=== PATIENT | male | born 1960 | race Caucasian/White ===

== ENCOUNTER → 2017-06-01 | Outpatient (CLI) | payer OTHER ==
--- NOTE | 2017-06-01 08:01 | US ---
EXAMINATION TYPE: US duplex aorta DATE OF EXAM: 06/01/2017 COMPARISON: MRI 2016 CLINICAL HISTORY: I71.4 AAA. AAA EXAM MEASUREMENTS: Abdominal Aorta: Proximal: 2.1 x 2.3cm Mid: 1.7 x 1.8cm Distal: 2.6 x 3.3 x 3.9cm Rt Iliac: 1.1 x 1.4cm Lt Iliac: 1.3 x 1.4cm IMPRESSION: Aneurysmal change to the infrarenal abdominal aorta measuring 3.3cm transversely and 3.9c m in length.
== END | disposition home or self-care (01) ==
LOC: RADUSWWP 06:51
PROVIDERS: ATTEND Family Medicine
DX: I71.4 Abdominal aortic aneurysm, without rupture (principal)
CPT/HCPCS: 93979

== ENCOUNTER → 2018-05-11 | Outpatient (CLI) | payer OTHER ==
[2018-05-11 13:59] LABS: HCT 33.8 % (39.0-53.0); HGB 10.8 gm/dL (13.0-17.5); Hypochromasia Marked; MCH 30.2 pg (25.0-35.0); MCHC 31.9 g/dL (31.0-37.0); MCV 94.8 fL (80.0-100.0); Mean Platelet Volume 7.7; Platelet Count 119 k/uL (150-450); RBC 3.57 m/uL (4.30-5.90); RDW 15.3 % (11.5-15.5); WBC 7.3 k/uL (3.8-10.6)
[2018-05-11 14:31] LABS: Anion Gap 11 mmol/L; Blood Urea Nitrogen 14 mg/dL (9-20); Carbon Dioxide 25 mmol/L (22-30); Chloride 96 mmol/L (98-107); Potassium 5.1 mmol/L (3.5-5.1); Sodium 132 mmol/L (137-145)
== END ==
LOC: LABPAT 12:34
PROVIDERS: ATTEND Internal Medicine Interventional Cardiology
DX: Z01.812 Encounter for preprocedural laboratory examination (principal); I70.213 Atherosclerosis of native arteries of extremities with intermittent claudication, bilateral legs; I10 Essential (primary) hypertension; E78.1 Pure hyperglyceridemia
CPT/HCPCS: 36415; 80051; 82565; 84520; 85027

== ENCOUNTER → 2018-07-06 | Outpatient (CLI) | payer OTHER ==
[2018-07-06 15:17] LABS: Anion Gap 7 mmol/L; Blood Urea Nitrogen 9 mg/dL (9-20); Carbon Dioxide 28 mmol/L (22-30); Chloride 101 mmol/L (98-107); Sodium 136 mmol/L (137-145)
[2018-07-06 15:28] LABS: Anisocytosis Slight; HCT 32.8 % (39.0-53.0); HGB 10.4 gm/dL (13.0-17.5); Hypochromasia Moderate; MCH 29.3 pg (25.0-35.0); MCHC 31.8 g/dL (31.0-37.0); MCV 92.2 fL (80.0-100.0); Mean Platelet Volume 6.8; Platelet Count 138 k/uL (150-450); RBC 3.56 m/uL (4.30-5.90); RDW 16.1 % (11.5-15.5); WBC 6.5 k/uL (3.8-10.6)
== END | disposition home or self-care (01) ==
LOC: LABPAT 14:04
PROVIDERS: ATTEND Internal Medicine Interventional Cardiology
DX: Z01.812 Encounter for preprocedural laboratory examination (principal); I70.213 Atherosclerosis of native arteries of extremities with intermittent claudication, bilateral legs; F17.200 Nicotine dependence, unspecified, uncomplicated
CPT/HCPCS: 36415; 80051; 82565; 84520; 85027

== ENCOUNTER 2018-07-20 06:36 | Day surgery (SDC) | payer OTHER ==
[2018-07-19 09:16] VITALS: BMI 32.8
[~2018-07-20 06:36] MED LIST: SODIUM CHLORIDE 0.9% 1,000 ML in EMPTY BAG 1 BAG IV ONE
[2018-07-20] MEDS ORDERED: ASPIRIN 325 MG TAB ONE (06:45)
[2018-07-20 07:04] LABS: Glucose,Whole Blood 160 mg/dL (75-99)
[2018-07-20 07:06] VITALS: RESP 18
[2018-07-20 07:08] LABS: Anisocytosis Slight; Basophils # (A) 0.1 k/uL (0-0.2); Basophils % (A) 1 %; Eosinophils # (A) 0.4 k/uL (0-0.7); Eosinophils % (A) 5 %; HCT 35.8 % (39.0-53.0); HGB 11.3 gm/dL (13.0-17.5); Hypochromasia Moderate; Lymphocytes # (A) 1.9 k/uL (1.0-4.8); Lymphocytes % (A) 27 %; MCH 28.6 pg (25.0-35.0); MCHC 31.5 g/dL (31.0-37.0); MCV 90.6 fL (80.0-100.0); Mean Platelet Volume 6.9; Monocytes # (A) 0.5 k/uL (0-1.0); Monocytes % (A) 8 %; Neutrophils # (A) 3.9 k/uL (1.3-7.7); Neutrophils % (A) 56 %; Platelet Count 205 k/uL (150-450); RBC 3.95 m/uL (4.30-5.90); RDW 16.1 % (11.5-15.5)
[2018-07-20 07:20] LABS: Anion Gap 8 mmol/L; Blood Urea Nitrogen 11 mg/dL (9-20); Carbon Dioxide 29 mmol/L (22-30); Chloride 102 mmol/L (98-107); Glucose 167 mg/dL (74-99); Potassium 4.9 mmol/L (3.5-5.1); Sodium 139 mmol/L (137-145)
[2018-07-20] MEDS ORDERED: MIDAZOLAM 2 MG/2 ML VIAL IVP ONE (07:50)
[2018-07-20] MEDS ORDERED: LIDOCAINE 1% INJ 10MG/ML (20 ML MDV) SQ ONE (07:53)
[2018-07-20] MEDS ORDERED: HEPARIN SODIUM 1,000 UN/ML (10ML VL) IV ONE (07:56)
[2018-07-20] MEDS ORDERED: niCARdipine Syringe (1,000 mcg/10 mL) INTRAARTER ONE (08:37)
[2018-07-20] MEDS ORDERED: NITROGLYCERIN 1000MCG/10ML SYRINGE INTRAARTER ONE (08:37)
[2018-07-20] MEDS ORDERED: CLOPIDOGREL 75 MG TAB PO ONE (08:40)
[2018-07-20] MEDS ORDERED: IOPAMIDOL-250 100ML BTL INTRAARTER ONE (08:50)
[2018-07-20] MEDS ORDERED: HYDROcodone/APAP 10-325MG 1 EACH TAB PO PRN (09:04)
[2018-07-20] MEDS ORDERED: IBUPROFEN 600 MG TAB PO PRN (09:04)
[2018-07-20] MEDS ORDERED: ONDANSETRON 4 MG TAB PO PRN (09:04)
[2018-07-20] MEDS ORDERED: SODIUM CHLORIDE 0.9% 1,000 ML IV SCH (09:15)
--- NOTE | 2018-07-20 09:41 | LTR ---
July 20, 2018 Re: Sukh Bosslara Dear Dr. Whitlock: MrDallin Zamarripa underwent today successful atherectomy and balloon angioplasty of the left femoral artery with good angiographic results and without any complication. I want to thank you for allowing me to participate in his care and please do not hesitate to call if you have any question or concern. Sincerely, Anthony Mercer MD MMANA LUISA / AURORAN: [id number] /
--- NOTE | 2018-07-20 09:56 | AN ---
ANGIOGRAPHY REPORT DATE OF SERVICE: July 20, 2018 PERFORMING PHYSICIAN: Anthony Mercer MD, rug cleaner. PROCEDURE PERFORMED: 1. Selective left tkhvd-leb-[id number] angiogram. 2. Selective left SFA angiogram. 3. Intravascular ultrasound, IVUS, of the left SFA. 4. An atherectomy of the left SFA using the orbital atherectomy device from [employer]. 5. Successful balloon angioplasty of the left SFA using 6 x 120 mm drug coated balloon with an excellent angiographic results and reduction of stenosis from 80% to 0%. INDICATION: This is a pleasant 57-year-old gentleman who sees Dr. Dong in the office as an outpatient with diabetes, hypertension, and dyslipidemia, who was experiencing bilateral lower extremity intermittent claudication and underwent a peripheral angiogram and that revealed severe disease involving the left SFA. Because of that, he was brought today to undergo a ELECTRICAL TESTER of the left SFA. APPROACH: Right common femoral artery. COMPLICATION: None. LEVEL OF SEDATION: Moderate with sedation length of 50 minutes. PROCEDURE DESCRIPTION: After obtaining an informed consent, the patient was brought to the cardiac seed laboratory assistant. The right femoral artery was cannulated using micropuncture technique, the micropuncture wire passed easily then I placed a 6-Bolivian 55 cm in the right common femoral artery. After that I did select the left SFA using a 5-Bolivian Rim catheter with 0.035 [employer] wire. Subsequently I did advance my 55 cm Raabe sheath to the proximal left SFA over the 0.035 [employer] wire. At that point, anticoagulation was initiated using heparin and the patient was given a total of 10,000 units of heparin IV with ACT monitoring throughout the procedure. I did wire the left SFA using 0.[address] wire. Before wiring the left SFA I did selective left ajdts-cia-pbcp angiogram and selective left SFA angiogram. Selective xchwf-[id number]-cghh angiogram revealed 3-vessel runoff below the knee. Selective left SFA angiogram revealed severe disease involving the distal left SFA and intermediate to severe disease involving the proximal left SFA which I decided to not treat today. After that I did wire the left SFA using 0.[address] wire, which was after that exchanged into an 0.014 ViperWire using 0.014 CXI catheter. After that, I did an intravascular ultrasound, IVUS, of the left SFA, which revealed a tight lesion involving the distal left SFA until the Michael canal. At that point I did atherectomy using the 2 mm gerardo. I did atherectomy under low, medium, and high speed. After that, I did balloon angioplasty of the left SFA using initially 5 mm regular balloon and then 6 x 120 drug coated balloon which was inflated under 8 atmospheres for 3 minutes. The following angiogram showed good angiographic results and the procedure was completed without any complication. After that I did exchange my 55 cm 6-Bolivian Raabe sheath into 11 cm sheath using 0.035 [employer]vant[employer] wire. After that, I did selective right common femoral artery angiogram. The procedure was completed without any complication. POSTPROCEDURE MANAGEMENT: 1. Dual antiplatelet therapy. 2. Risk factors modifications. 3. Follow up with the patient. MAXINE / KARLI: [id number] /
--- NOTE | 2018-07-20 11:52 | IR ---
Fluoroscopy HISTORY: Peripheral vascular occlusive disease 12.2 minutes fluoroscopy time supplied to the referring clinician. 555 intraoperative C-arm images d ocument the procedure. See dictated report from cardiology.
[2018-07-20 12:17] LABS: Glucose,Whole Blood 155 mg/dL (75-99)
[2018-07-20 16:37] LABS: Glucose,Whole Blood 260 mg/dL (75-99)
[2018-07-20 20:13] LABS: Glucose,Whole Blood 338 mg/dL (75-99)
[2018-07-20] MEDS ORDERED: ATORVASTATIN 80 MG TAB PO SCH (21:00)
[2018-07-20] MEDS ORDERED: levETIRAcetam 500 MG TAB PO SCH (21:00)
[2018-07-20] MEDS ORDERED: PREGABALIN 50 MG CAP PO SCH (21:00)
[2018-07-20] MEDS ORDERED: ASPIRIN 81 MG PO SCH (21:00)
[2018-07-21 04:33] VITALS: BP 113/58; PULSE 87; TEMP 98.3
[2018-07-21 06:01] LABS: Glucose,Whole Blood 186 mg/dL (75-99)
[2018-07-21 07:52] LABS: Basophils % (A) 0 %; Eosinophils # (A) 0.3 k/uL (0-0.7); Eosinophils % (A) 3 %; HCT 31.8 % (39.0-53.0); Hypochromasia Marked; Lymphocytes # (A) 1.4 k/uL (1.0-4.8); Lymphocytes % (A) 18 %; MCH 29.2 pg (25.0-35.0); MCHC 31.6 g/dL (31.0-37.0); MCV 92.6 fL (80.0-100.0); Mean Platelet Volume 6.8; Monocytes # (A) 0.7 k/uL (0-1.0); Monocytes % (A) 8 %; Neutrophils # (A) 5.5 k/uL (1.3-7.7); Neutrophils % (A) 67 %; Platelet Count 156 k/uL (150-450); RBC 3.44 m/uL (4.30-5.90); RDW 15.9 % (11.5-15.5); WBC 8.1 k/uL (3.8-10.6)
--- NOTE | 2018-07-21 07:56 | DS ---
DISCHARGE SUMMARY DATE OF ADMISSION: 07/20/2018 DATE OF DISCHARGE: 07/21/2018 BRIEF HISTORY: This is a pleasant 57-year-old gentleman who underwent yesterday successful atherectomy and balloon angioplasty of the left SFA with good angiographic results and without any complication. The procedure was performed from the right groin which is soft and nontender and without any bruises. The patient is going to be discharged home on dual antiplatelet therapy and I will follow up with the patient in the office as an outpatient. MAXINE / KARLI: [id number] /
[2018-07-21] MEDS ORDERED: ALBUTEROL NEBULIZED 1.25 MG/3 ML INHALATION SCH (08:00)
[2018-07-21 08:10] LABS: Anion Gap 6 mmol/L; Blood Urea Nitrogen 13 mg/dL (9-20); Calcium 8.4 mg/dL (8.4-10.2); Carbon Dioxide 28 mmol/L (22-30); Chloride 102 mmol/L (98-107); Glucose 142 mg/dL (74-99); Sodium 136 mmol/L (137-145)
[2018-07-21] MEDS ORDERED: OXYBUTYNIN XL 5 MG TAB.ER.24 PO SCH (09:00)
[2018-07-21] MEDS ORDERED: NON-FORMULARY DRUG (Liraglutide [Victoza 2-Pak] 1.8 MG) SQ SCH (09:00)
[2018-07-21] MEDS ORDERED: INSULIN DETEMIR 100 UNIT/ML 10 ML VIAL SQ SCH (09:00)
[2018-07-21] MEDS ORDERED: FUROSEMIDE 20 MG TAB PO SCH (09:00)
[2018-07-21] MEDS ORDERED: PARoxetine 20 MG TAB PO SCH (09:00)
[2018-07-21] MEDS ORDERED: MAGNESIUM OXIDE 400 MG TAB PO SCH (09:00)
[2018-07-21] MEDS ORDERED: THIAMINE 100 MG TAB PO SCH (09:00)
[2018-07-21] MEDS ORDERED: LISINOPRIL 5 MG TAB PO SCH (09:00)
[2018-07-21] MEDS ORDERED: CLOPIDOGREL 75 MG TAB PO SCH (09:00)
[2018-07-21] MEDS ORDERED: ASPIRIN 81 MG PO SCH (09:00)
[2018-07-21] MEDS ORDERED: LINAGLIPTIN 5 MG TABLET PO SCH (09:00)
[2018-07-21] MEDS ORDERED: FOLIC ACID 1 MG TAB PO SCH (12:00)
[2018-07-21] MEDS ORDERED: MULTIVITAMINS, THERA 1 EACH TAB PO SCH (12:00)
== END 2018-07-21 09:48 | disposition home or self-care (01) ==
LOC: CATHCVL 06:36 → 3SCARD 11:28 → CATHCVL 07-21 09:48
PROVIDERS: ATTEND Internal Medicine Interventional Cardiology
DX: I70.213 Atherosclerosis of native arteries of extremities with intermittent claudication, bilateral legs (principal); E11.51 Type 2 diabetes mellitus with diabetic peripheral angiopathy without gangrene; I10 Essential (primary) hypertension; E78.5 Hyperlipidemia, unspecified; I65.29 Occlusion and stenosis of unspecified carotid artery; F17.210 Nicotine dependence, cigarettes, uncomplicated; Z79.02 Long term (current) use of antithrombotics/antiplatelets; Z79.82 Long term (current) use of aspirin; Z79.52 Long term (current) use of systemic steroids; Z79.899 Other long term (current) drug therapy; Z88.5 Allergy status to narcotic agent; Z86.73 Personal history of transient ischemic attack (TIA), and cerebral infarction without residual deficits
CPT/HCPCS: 94640; 94760; 37225; 85347; 37252; 80048 ×2; 85025 ×2; C1894 ×2; C1714; C1769 ×5; C1753; C2623; C1725; J2250; J2001; J1644; Q9966

== ENCOUNTER → 2018-10-04 | Outpatient (CLI) | payer OTHER ==
--- NOTE | 2018-10-05 13:04 | CTL ---
EXAMINATION TYPE: CT Low Dose Lung DATE OF EXAM ORDERED: 10/04/2018 HISTORY: . Lung cancer screening CT DLP: [address] CTDI: 2.41 mGy Automated exposure control for dose reduction was used. SCREENING VISIT: Initial COMPARISON: None TECHNIQUE: Low dose computed tomography scan was performed through the chest at 1 mm thick sections a nd reconstructed images in the coronal plane at [address] DIAGNOSTIC QUALITY: Limited, but interpretable FINDINGS: LUNG NODULES: Present, detailed below: 1: Series 5 image 145: There is a 0.6 cm nodule in the periphery of the left posterior lateral lung. There is a groundglass opacity within the anterior left upper lobe. Series 5 image 38.e a more subtle groundglass opacities within the anterior medial right upper lobe. Series 5 image 51. LUNGS: COPD: Severity: None Fibrosis: Severity: None Lymph nodes: There is a 1.0 cm lymph node within the pretracheal space at the level of the right main bronchus and panchito. Additional shotty lymphadenopathy is within the mediastinum Other findings: Streak atelectasis is likely present at the bilateral lung bases. RIGHT PLEURAL SPACE: Effusion: None Calcification: None Thickening: None Pneumothorax: None LEFT PLEURAL SPACE: Effusion: None Calcification: None Thickening: None Pneumothorax: None HEART: Heart Size: Normal Coronary calcification: Moderate Pericardial effusion: None The ascending thoracic aorta at the level the main pulmonary artery is 3.1 cm. The main pulmonary art albaro the bifurcation is 2.9 cm. OTHER FINDINGS: Upper abdomen: Normal Bony thorax: Unremarkable Supraclavicular region: Normal Other: None IMPRESSION: 1. Groundglass opacities within the upper lung barajas are nonspecific. Short-term follow-up CT chest with contrast in 3 months is recommended. 2. Nonspecific 0.5 cm nodule in the posterior lateral left lung base. FOLLOW UP CT CHEST RECOMMENDATION: CT chest w contrast in three months CT LUNG RAD: Lung-Rad 3 Probably Benign
== END | disposition home or self-care (01) ==
LOC: RADCTMAIN 16:02
PROVIDERS: ATTEND Family Medicine
DX: R91.8 Other nonspecific abnormal finding of lung field (principal); Z87.891 Personal history of nicotine dependence

== ENCOUNTER 2018-10-24 07:59 | Day surgery (SDC) | payer OTHER ==
[2018-10-20 16:06] VITALS: BMI 34.7
[~2018-10-24 07:59] MED LIST changes: +LACTATED RINGERS 1,000 ML IV SCH; +LIDOCAINE 1% 20 ML VIAL (10MG/ML) FOR IV START INTRADERMA PRN; -SODIUM CHLORIDE 0.9% 1,000 ML in EMPTY BAG 1 BAG IV ONE
[2018-10-24 08:20] VITALS: RESP 16; TEMP 97.9
[2018-10-24 08:27] LABS: Glucose,Whole Blood 164 mg/dL (75-99)
[2018-10-24] MEDS ORDERED: LIDOCAINE 1% INJ 10MG/ML (20 ML MDV) ONE (08:48)
[2018-10-24] MEDS ORDERED: PROPOFOL 10 MG/ML 20 ML VIAL IV ONE (08:48)
--- NOTE | 2018-10-24 08:54 | P.GSHP ---
History of Present Illness H&P Date: 10/24/18 Chief Complaint: Anemia, screening colonoscopy This is a 58-year-old male who's had issues with anemia. His hemoglobin was 10 in July 2018. Patient resents today for EGD and screening colonoscopy Past Medical History Past Medical History: COPD, CVA/TIA, Diabetes Mellitus, Memory Impairment, Seizure Disorder, Skin Disorder Additional Past Medical History / Comment(s): pain pump in back History of Any Multi-Drug Resistant Organisms: None Reported Past Surgical History: Appendectomy, Back Surgery, Orthopedic Surgery Additional Past Surgical History / Comment(s): titanium shaft in lt leg, skin graph to rt 1st and middle finger, lt eardum replaced, cyrus. foot surgery to arch Past Anesthesia/Blood Transfusion Reactions: No Reported Reaction Smoking Status: Former smoker - Past Family History Brother(s) Family Medical History: No Reported History Mother Family Medical History: COPD, Diabetes Mellitus Medications and Allergies Home Medications Medication Instructions Recorded Confirmed Type Aspirin [Adult Low Dose Aspirin EC] 81 mg PO DAILY 08/28/15 10/24/18 History Clopidogrel [Plavix] 75 mg PO DAILY 08/28/15 10/24/18 History Folic Acid 1 mg PO DAILY 08/28/15 10/24/18 History Lisinopril [Prinivil] 5 mg PO DAILY 08/28/15 10/24/18 History Magnesium Gluconate [Magonate] 500 mg PO DAILY 08/28/15 10/24/18 History Multivitamins, Thera [Multivitamin 1 tab PO DAILY 08/28/15 10/24/18 History (formulary)] PARoxetine [Paxil] 40 mg PO DAILY 08/28/15 10/24/18 History Thiamine [Vitamin B-1] 100 mg PO DAILY 08/28/15 10/24/18 History Albuterol Inhaler [Ventolin Hfa 1 - 2 puff INHALATION RT-Q6H PRN 07/19/18 10/24/18 History Inhaler] Albuterol Nebulized [Ventolin 1.25 mg INHALATION DAILY 07/19/18 10/24/18 History Nebulized] Furosemide [Lasix] 20 mg PO DAILY 07/19/18 10/24/18 History Insulin Glargine,Hum.rec.anlog 57 unit SQ QAM 07/19/18 10/24/18 History [Basaglar Kwikpen U-100] Insulin Lispro [Admelog] 9 unit SQ ACHS 07/19/18 10/24/18 History Liraglutide [Victoza 2-Selvni] 1.8 mg SQ DAILY 07/19/18 10/24/18 History Oxybutynin Chloride [Oxybutynin 5 mg PO DAILY 07/20/18 10/24/18 History Chloride ER] Pregabalin [Lyrica] 150 mg PO BID 07/20/18 10/24/18 History levETIRAcetam [Keppra] 1,000 mg PO Q12HR 07/20/18 10/24/18 History Atorvastatin Calcium [Lipitor] 80 mg PO DAILY 10/20/18 10/24/18 History Ferrous Sulfate [Feosol] 325 mg PO DAILY 10/20/18 10/24/18 History HYDROcodone/APAP 5-325MG [Raymond 1 tab PO TID 10/20/18 10/24/18 History 5-325] Omeprazole [PriLOSEC] 40 mg PO BID 10/20/18 10/24/18 History Ondansetron HCl [Zofran] 8 mg PO DAILY PRN 10/20/18 10/24/18 History Sertraline [Zoloft] 25 mg PO DAILY 10/20/18 10/24/18 History Tamsulosin [Flomax] 0.4 mg PO DAILY 10/20/18 10/24/18 History metFORMIN HCL 1,000 mg PO BID 10/20/18 10/24/18 History Allergies Allergy/AdvReac Type Severity Reaction Status Date / Time morphine AdvReac Nausea & Verified 10/20/18 15:39 Vomiting Surgical - Exam Vital Signs Temp Pulse Resp BP Pulse Ox 97.9 F 78 16 165/79 91 L 10/24/18 08:15 10/24/18 08:15 10/24/18 08:15 10/24/18 08:15 10/24/18 08:15 - General well developed, well nourished, no distress - Eyes PERRL - ENT normal pinna - Neck no masses - Respiratory normal expansion - Cardiovascular Rhythm: regular - Abdomen Abdomen: soft, non tender Results - Labs Abnormal Lab Results - Last 24 Hours (Table) 10/24/18 Range/Units 08:23 POC Glucose (mg/dL) 164 H (75-99) mg/dL Assessment and Plan Assessment: Anemia we'll perform EGD and screening colonoscopy.
--- NOTE | 2018-10-24 09:19 | P.OP ---
Date of Procedure: 10/24/18 Preoperative Diagnosis: Anemia Screening colonoscopy Postoperative Diagnosis: Antral gastritis Transverse colon polyp Mild diverticulosis Poor colonic prep Procedure(s) Performed: EGD Colonoscopy Anesthesia: MAC Surgeon: Prosper Santiago Pathology: other (Antrum, transverse colon polyp) Condition: stable Disposition: PACU Description of Procedure: Patient's placed on the endoscopy table in the lateral position. He received IV sedation. The gastroscope placed oropharynx passed in the esophagus and into the stomach. Scope was then placed through the pylorus. First and second portion of duodenum appeared normal. Scope was then brought back the antrum and this was mildly inflamed. A biopsies performed. The scope was then retroflexed and the remainder of the stomach appeared normal. There is no significant hiatal hernia. There is no evidence of blood in the stomach or duodenum. The scope was then brought back and the GE junction was at 47 is. The distal esophagus appeared normal. The proximal esophagus. Normal. Scope was withdrawn for patient. Next digital rectal exam was performed which revealed a few internal hemorrhoids. The flexible colonoscope was then placed patient anus passed with colon. There was a very limited view of the colon due to the poor colon prep. The scope was placed to the level of the hepatic flexure. However scope could not be advanced due to the poor colon prep. There was a large amount liquid stool colon. At this point scope withdrawn. The transverse colon appeared normal. In the distal transverse colon there was a small polyp seen this removed forcep. Scope was then brought back into the descending colon and some diverticular changes were seen. The; and more diverticula changes seen. However there is large amount of stool within the colon. Scope was then brought back the rectum this appeared normal normal. However the view was quite limited due to the large amount liquid stool. Scope Patient was scheduled for a barium enema to evaluate the remaining colon. There was no evidence of any bleeding in the colon or stomach.
[2018-10-24 09:47] VITALS: BP 152/81; PULSE 75
--- NOTE | 2018-10-26 15:11 | CDI ---
Date: 10/26/18 CDS/Retail Pos Specialist Name: Jeannette Pedraza Phone: If any questions, call Jenn Wet[facility] [employer] [facility] at [phone] Patient Name: Sukh Zamarripa Admit Date: 10/24/18 Discharge Date: 10/24/18 ATTENTION: The [facility] Coding Staff appreciate your assistance in clarifying documentation. Please respond to the clarification below the line at the bottom and electronically sign. The [facility] Coding staff will review the response and follow-up if needed. Please note: Queries are made part of the Legal Health Record. If you have any questions, please contact the [employer]. Dear Dr. Santiago, Please clarify the reason for the colonoscopy. The diagnosis of anemia can prompt both an EGD and colonoscopy to be performed. A "Screening" colonoscopy under guidelines is": A screening is the testing for disease or disease precursors in seemingly well individuals so that early detections and treatment can be provided for those who test positive for the disease." This is an individual that has not symptoms related to the procedure. Please clarify if the colonoscopy is really a screening. Thank you for your kind consideration. This was the patient's initial screening colonoscopy. He was anemic. MTDD
== END 2018-10-24 10:09 | disposition home or self-care (01) ==
LOC: ORWHC2ENDO 07:59
PROVIDERS: ATTEND Surgery
DX: Z12.11 Encounter for screening for malignant neoplasm of colon (principal); K57.90 Diverticulosis of intestine, part unspecified, without perforation or abscess without bleeding; K29.50 Unspecified chronic gastritis without bleeding; D12.3 Benign neoplasm of transverse colon; K64.8 Other hemorrhoids; J44.9 Chronic obstructive pulmonary disease, unspecified; Z86.73 Personal history of transient ischemic attack (TIA), and cerebral infarction without residual deficits; E11.9 Type 2 diabetes mellitus without complications; F17.200 Nicotine dependence, unspecified, uncomplicated; R41.3 Other amnesia; G40.909 Epilepsy, unspecified, not intractable, without status epilepticus; Z83.3 Family history of diabetes mellitus; F41.9 Anxiety disorder, unspecified; F32.9 Major depressive disorder, single episode, unspecified; Z79.02 Long term (current) use of antithrombotics/antiplatelets; Z79.82 Long term (current) use of aspirin; Z79.4 Long term (current) use of insulin; Z79.891 Long term (current) use of opiate analgesic; Z79.899 Other long term (current) drug therapy; Z88.5 Allergy status to narcotic agent
CPT/HCPCS: 88305; 45380; 43239; J2001; J2704

== ENCOUNTER 2018-10-30 16:32 | Inpatient (IN) | payer OTHER ==
[2018-10-30] MEDS ORDERED: ACETAMINOPHEN TAB 500 MG TAB PO STA (16:43)
[2018-10-30] MEDS ORDERED: AZITHROMYCIN 500 MG in SODIUM CHLORIDE 0.9% 250 ML IVPB STA (16:51)
[2018-10-30] MEDS ORDERED: cefTRIAXone IN SWFI 1,000 MG/10 ML SYRINGE IVP STA (16:51)
--- NOTE | 2018-10-30 16:51 | ED ---
General Adult HPI - General Chief complaint: Shortness of Breath Stated complaint: INFECTION Time Seen by Provider: 10/30/18 16:43 Source: EMS Mode of arrival: EMS Limitations: no limitations - History of Present Illness Initial comments: Dictation was produced using [employer] dictation software. please excuse any grammatical, word or spelling errors. Chief Complaint: 58-year-old male with past medical history of COPD CVA diabetes presents with fever and cough. History of Present Illness: He 8-year-old male who states that over the last couple days he's been feeling worse. He states she's been having cough and fever. Patient states she's been having a productive cough of yellow sputum. Patient reports that he had a EGD performed 6 days ago. Denies any overt sick contacts. Patient denies any neck pain. Denies any nausea vomiting diarrhea. Denies any rashes. Denies any pain complaints. The ROS documented in this emergency department record has been reviewed and confirmed by me. Those systems with pertinent positive or negative responses have been documented in the HPI. All other systems are other negative and/or noncontributory. PHYSICAL EXAM: General Impression: Alert and oriented x3, not in acute distress HEENT: Normocephalic atraumatic, extra-ocular movements intact, pupils equal and reactive to light bilaterally, mucous membranes moist. Cardiovascular: Heart regular rate and rhythm, S1&S2 audible, no murmurs, rubs or gallops Chest: Crackles to the left lung barajas Abdomen: Bowel sounds present, abdomen soft, non-tender, non-distended, no organomegaly Musculoskeletal: Pulses present and equal in all extremities, no peripheral edema Motor: no focal deficits noted Neurological: CN II-XII grossly intact, no focal motor or sensory deficits noted Skin: Intact with no visualized rashes Psych: Normal affect and mood ED course: 58-year-old male with clinical presentation suspicious for pneumonia. Patient is a fever 104.5. Hemodynamic stable. Patient is 90% on 4 L nasal cannula. He does have a history of COPD. Laboratory evaluation obtained. No leukocytosis. Metabolic panel is unremarkable except for some slight elevation hyperkalemia. Patient given fluids. Coag panel unremarkable. CBC shows no leukocytosis. Platelet count 190. Urinalysis influenza and group A strep is negative. Chest x-ray is suggestive of multifocal pneumonia. Abdominal x-ray showed massively distended stomach with large amount of food material. Given these findings there is concern of abdominal source of infection. CT chest abdomen pelvis was obtained and worsening multifocal pneumonia. There is also massively dilated stomach with dilatation of her second third portions of the duodenum. There also is finding of chronic appearing abdominal aortic dissection with focal aneurysm. Discussed patient case with Dr. Zuniga who is willing to accept admission. Patient given antibiotics for treatment record pneumonia. Discussed with Dr. ramsey CT findings in the abdomen and he requests that we hold on any sort of surgical consult at this time. Patient reevaluated and feels improved. Patient is not having any abdominal complaints. EKG interpretation: Ventricular rate 103, sinus tachycardia,. Interval 112, QS 90, QTc 437. No HI prolongation, no QTC prolongation, no ST or T-wave changes noted. Overall, this EKG is unremarkable - Related Data Home Medications Medication Instructions Recorded Confirmed Aspirin [Adult Low Dose Aspirin EC] 81 mg PO DAILY 08/28/15 10/30/18 Clopidogrel [Plavix] 75 mg PO DAILY 08/28/15 10/30/18 Folic Acid 1 mg PO DAILY 08/28/15 10/30/18 Lisinopril [Prinivil] 5 mg PO DAILY 08/28/15 10/30/18 Multivitamins, Thera [Multivitamin 1 tab PO DAILY 08/28/15 10/30/18 (formulary)] PARoxetine [Paxil] 40 mg PO DAILY 08/28/15 10/30/18 Albuterol Inhaler [Ventolin Hfa 1 - 2 puff INHALATION RT-Q6H PRN 07/19/18 10/30/18 Inhaler] Furosemide [Lasix] 20 mg PO DAILY 07/19/18 10/30/18 Insulin Glargine,Hum.rec.anlog 57 unit SQ DAILY 07/19/18 10/30/18 [Basaglar Kwikpen U-100] Insulin Lispro [Admelog] 9 unit SQ AC-TID 07/19/18 10/30/18 Liraglutide [Victoza 2-Selvin] 1.8 mg SQ DAILY 07/19/18 10/30/18 Pregabalin [Lyrica] 150 mg PO BID 07/20/18 10/30/18 levETIRAcetam [Keppra] 1,000 mg PO Q12HR 07/20/18 10/30/18 Atorvastatin Calcium [Lipitor] 80 mg PO DAILY 10/20/18 10/30/18 Ferrous Sulfate [Feosol] 325 mg PO DAILY 10/20/18 10/30/18 HYDROcodone/APAP 5-325MG [[place] 1 tab PO TID PRN 10/20/18 10/30/18 5-325] Ondansetron HCl [Zofran] 8 mg PO Q6H PRN 10/20/18 10/30/18 Tamsulosin [Flomax] 0.4 mg PO DAILY 10/20/18 10/30/18 metFORMIN HCL 1,000 mg PO BID 10/20/18 10/30/18 Albuterol Nebulized [Ventolin 2.5 mg INHALATION RT-BID 10/30/18 10/30/18 Nebulized] Cyclobenzaprine [Flexeril] 5 mg PO TID 10/30/18 10/30/18 Ibuprofen [Motrin] 600 mg PO TID PRN 10/30/18 10/30/18 Insulin Lispro [Admelog] See Protocol SQ AC-TID 10/30/18 10/30/18 Magnesium Oxide [Mag-Ox] 250 mg PO BID 10/30/18 10/30/18 Oxybutynin Xl [Ditropan Xl] 5 mg PO DAILY 10/30/18 10/30/18 Sertraline [Zoloft] 100 mg PO DAILY 10/30/18 10/30/18 Simethicone [Gas-X] 125 mg PO TID PRN 10/30/18 10/30/18 Allergies Allergy/AdvReac Type Severity Reaction Status Date / Time morphine AdvReac Nausea & Verified 10/30/18 17:01 Vomiting Review of Systems ROS Statement: Those systems with pertinent positive or pertinent negative responses have been documented in the HPI. ROS Other: All systems not noted in ROS Statement are negative. Past Medical History Past Medical History: COPD, CVA/TIA, Diabetes Mellitus, Memory Impairment, Seizure Disorder, Skin Disorder Additional Past Medical History / Comment(s): pain pump in back History of Any Multi-Drug Resistant Organisms: None Reported Past Surgical History: Appendectomy, Back Surgery, Orthopedic Surgery Additional Past Surgical History / Comment(s): titanium shaft in lt leg, skin graph to rt 1st and middle finger, lt eardum replaced, cyrus. foot surgery to arch Past Anesthesia/Blood Transfusion Reactions: No Reported Reaction Past Psychological History: Anxiety, Depression Smoking Status: Current every day smoker Past Alcohol Use History: None Reported Past Drug Use History: None Reported - Past Family History Brother(s) Family Medical History: No Reported History Mother Family Medical History: COPD, Diabetes Mellitus General Exam Limitations: no limitations Course Vital Signs 10/30/18 10/30/18 10/30/18 16:37 17:59 18:02 Temperature 104.5 F H 103 F H Pulse Rate 105 H 111 H Respiratory 20 18 Rate Blood Pressure 150/70 138/59 O2 Sat by Pulse 90 L 92 L Oximetry Medical Decision Making - Lab Data Result diagrams: 10/30/18 17:00 10/30/18 17:00 Lab Results 10/30/18 10/30/18 10/30/18 Range/Units 16:57 17:00 17:00 WBC 4.9 (3.8-10.6) k/uL RBC 3.75 L (4.30-5.90) m/uL Hgb 11.1 L (13.0-17.5) gm/dL Hct 35.2 L (39.0-53.0) % MCV 93.9 (80.0-100.0) fL MCH 29.6 (25.0-35.0) pg MCHC 31.5 (31.0-37.0) g/dL RDW 18.8 H (11.5-15.5) % Plt Count 119 L (150-450) k/uL Neutrophils % 82 % Lymphocytes % 10 % Monocytes % 5 % Eosinophils % 2 % Basophils % 0 % Neutrophils # 4.0 (1.3-7.7) k/uL Lymphocytes # 0.5 L (1.0-4.8) k/uL Monocytes # 0.3 (0-1.0) k/uL Eosinophils # 0.1 (0-0.7) k/uL Basophils # 0.0 (0-0.2) k/uL Hypochromasia Slight Anisocytosis Slight Macrocytosis Slight PT (9.0-12.0) sec INR (<1.2) APTT (22.0-30.0) sec Sodium 135 L (137-145) mmol/L Potassium 5.7 H (3.5-5.1) mmol/L Chloride 101 (98-107) mmol/L Carbon Dioxide 26 (22-30) mmol/L Anion Gap 8 mmol/L BUN 13 (9-20) mg/dL Creatinine 0.90 (0.66-1.25) mg/dL Est GFR (CKD-EPI)AfAm >90 (>60 ml/min/1.73 sqM) Est GFR (CKD-EPI)NonAf >90 (>60 ml/min/1.73 sqM) Glucose 201 H (74-99) mg/dL POC Glucose (mg/dL) 205 H (75-99) mg/dL POC Glu Imaging System Administrator ID Osvaldogat, Samantha Plasma Lactic Acid [place] (0.7-2.0) mmol/L Calcium 8.6 (8.4-10.2) mg/dL Total Bilirubin 0.4 (0.2-1.3) mg/dL AST 37 (17-59) U/L ALT 21 (21-72) U/L Alkaline Phosphatase 115 (38-126) U/L Troponin I (0.000-0.034) ng/mL Total Protein 7.5 (6.3-8.2) g/dL Albumin 3.7 (3.5-5.0) g/dL Urine Color Urine Appearance (Clear) Urine pH (5.0-8.0) Ur Specific [place] (1.001-1.035) Urine Protein (Negative) Urine Glucose (UA) (Negative) Urine Ketones (Negative) Urine Blood (Negative) Urine Nitrite (Negative) Urine Bilirubin (Negative) Urine Urobilinogen (<2.0) mg/dL Ur Leukocyte Esterase (Negative) Influenza Type A RNA (Not Detectd) Influenza Type B (PCR) (Not Detectd) Group A Strep Rapid (Negative) 10/30/18 10/30/18 10/30/18 Range/Units 17:00 17:00 17:00 WBC (3.8-10.6) k/uL RBC (4.30-5.90) m/uL Hgb (13.0-17.5) gm/dL Hct (39.0-53.0) % MCV (80.0-100.0) fL MCH (25.0-35.0) pg MCHC (31.0-37.0) g/dL RDW (11.5-15.5) % Plt Count (150-450) k/uL Neutrophils % % Lymphocytes % % Monocytes % % Eosinophils % % Basophils % % Neutrophils # (1.3-7.7) k/uL Lymphocytes # (1.0-4.8) k/uL Monocytes # (0-1.0) k/uL Eosinophils # (0-0.7) k/uL Basophils # (0-0.2) k/uL Hypochromasia Anisocytosis Macrocytosis PT 10.1 (9.0-12.0) sec INR 0.9 (<1.2) APTT 22.1 (22.0-30.0) sec Sodium (137-145) mmol/L Potassium (3.5-5.1) mmol/L Chloride (98-107) mmol/L Carbon Dioxide (22-30) mmol/L Anion Gap mmol/L BUN (9-20) mg/dL Creatinine (0.66-1.25) mg/dL Est GFR (CKD-EPI)AfAm (>60 ml/min/1.73 sqM) Est GFR (CKD-EPI)NonAf (>60 ml/min/1.73 sqM) Glucose (74-99) mg/dL POC Glucose (mg/dL) (75-99) mg/dL POC Glu Imaging System Administrator ID Plasma Lactic Acid [place] 2.0 (0.7-2.0) mmol/L Calcium (8.4-10.2) mg/dL Total Bilirubin (0.2-1.3) mg/dL AST (17-59) U/L ALT (21-72) U/L Alkaline Phosphatase (38-126) U/L Troponin I <0.012 (0.000-0.034) ng/mL Total Protein (6.3-8.2) g/dL Albumin (3.5-5.0) g/dL Urine Color Urine Appearance (Clear) Urine pH (5.0-8.0) Ur Specific [place] (1.001-1.035) Urine Protein (Negative) Urine Glucose (UA) (Negative) Urine Ketones (Negative) Urine Blood (Negative) Urine Nitrite (Negative) Urine Bilirubin (Negative) Urine Urobilinogen (<2.0) mg/dL Ur Leukocyte Esterase (Negative) Influenza Type A RNA (Not Detectd) Influenza Type B (PCR) (Not Detectd) Group A Strep Rapid (Negative) 10/30/18 10/30/18 10/30/18 Range/Units 17:00 17:12 18:47 WBC (3.8-10.6) k/uL RBC (4.30-5.90) m/uL Hgb (13.0-17.5) gm/dL Hct (39.0-53.0) % MCV (80.0-100.0) fL MCH (25.0-35.0) pg MCHC (31.0-37.0) g/dL RDW (11.5-15.5) % Plt Count (150-450) k/uL Neutrophils % % Lymphocytes % % Monocytes % % Eosinophils % % Basophils % % Neutrophils # (1.3-7.7) k/uL Lymphocytes # (1.0-4.8) k/uL Monocytes # (0-1.0) k/uL Eosinophils # (0-0.7) k/uL Basophils # (0-0.2) k/uL Hypochromasia Anisocytosis Macrocytosis PT (9.0-12.0) sec INR (<1.2) APTT (22.0-30.0) sec Sodium (137-145) mmol/L Potassium (3.5-5.1) mmol/L Chloride (98-107) mmol/L Carbon Dioxide (22-30) mmol/L Anion Gap mmol/L BUN (9-20) mg/dL Creatinine (0.66-1.25) mg/dL Est GFR (CKD-EPI)AfAm (>60 ml/min/1.73 sqM) Est GFR (CKD-EPI)NonAf (>60 ml/min/1.73 sqM) Glucose (74-99) mg/dL POC Glucose (mg/dL) (75-99) mg/dL POC Glu Imaging System Administrator ID Plasma Lactic Acid [place] (0.7-2.0) mmol/L Calcium (8.4-10.2) mg/dL Total Bilirubin (0.2-1.3) mg/dL AST (17-59) U/L ALT (21-72) U/L Alkaline Phosphatase (38-126) U/L Troponin I (0.000-0.034) ng/mL Total Protein (6.3-8.2) g/dL Albumin (3.5-5.0) g/dL Urine Color Yellow Urine Appearance Clear (Clear) Urine pH 5.0 (5.0-8.0) Ur Specific [place] 1.014 (1.001-1.035) Urine Protein Negative (Negative) Urine Glucose (UA) Negative (Negative) Urine Ketones Negative (Negative) Urine Blood Negative (Negative) Urine Nitrite Negative (Negative) Urine Bilirubin Negative (Negative) Urine Urobilinogen <2.0 (<2.0) mg/dL Ur Leukocyte Esterase Negative (Negative) Influenza Type A RNA Not Detected (Not Detectd) Influenza Type B (PCR) Not Detected (Not Detectd) Group A Strep Rapid Negative (Negative) Disposition Clinical Impression: Pneumonia Disposition: ADMITTED IP TO THIS HOSP Condition: Fair Referrals: Sharyn Whitlock DO [Primary Care Provider] - 1-2 days Decision Time: 20:18
[2018-10-30] MEDS: SODIUM CHLORIDE 0.9% 500 ML 500 ML IV SCH ×2 (16:58→16:59)
[2018-10-30 17:02] LABS: Glucose,Whole Blood 205 mg/dL (75-99)
[2018-10-30 17:21] LABS: ALT 21 U/L (21-72); AST 37 U/L (17-59); Albumin 3.7 g/dL (3.5-5.0); Alkaline Phosphatase 115 U/L (38-126); Anion Gap 8 mmol/L; Blood Urea Nitrogen 13 mg/dL (9-20); Calcium 8.6 mg/dL (8.4-10.2); Carbon Dioxide 26 mmol/L (22-30); Chloride 101 mmol/L (98-107); Glucose 201 mg/dL (74-99); INR 0.9 (<1.2); Potassium 5.7 mmol/L (3.5-5.1); Prothrombin Time 10.1 sec (9.0-12.0); Sodium 135 mmol/L (137-145); Total Bilirubin 0.4 mg/dL (0.2-1.3); Total Protein 7.5 g/dL (6.3-8.2)
[2018-10-30 17:27] LABS: Anisocytosis Slight; Basophils % (A) 0 %; Eosinophils # (A) 0.1 k/uL (0-0.7); Eosinophils % (A) 2 %; HCT 35.2 % (39.0-53.0); HGB 11.1 gm/dL (13.0-17.5); Hypochromasia Slight; Lymphocytes # (A) 0.5 k/uL (1.0-4.8); Lymphocytes % (A) 10 %; MCH 29.6 pg (25.0-35.0); MCHC 31.5 g/dL (31.0-37.0); MCV 93.9 fL (80.0-100.0); Macrocytosis Slight; Mean Platelet Volume 7.9; Monocytes # (A) 0.3 k/uL (0-1.0); Monocytes % (A) 5 %; Neutrophils % (A) 82 %; Platelet Count 119 k/uL (150-450); RBC 3.75 m/uL (4.30-5.90); RDW 18.8 % (11.5-15.5); WBC 4.9 k/uL (3.8-10.6)
[2018-10-30 17:31] LABS: Partial Thromboplastin Time 22.1 sec (22.0-30.0)
--- NOTE | 2018-10-30 17:56 | XR ---
EXAMINATION TYPE: XR chest 2V DATE OF EXAM: 10/30/2018 COMPARISON: Low-dose chest CT 10/04/2018 HISTORY: Fever TECHNIQUE: Frontal and lateral views of the chest are obtained. FINDINGS: Increased interstitial markings are seen diffusely. No focal airspace opacity. No pleural effusion or pneumothorax. The cardiac silhouette is within normal limits. Airway is clear. Osseous st ructures are unremarkable. Mottled appearance of presumably gastric or bowel contents in the left upper abdomen. Finding may be related to material external to the patient. IMPRESSION: 1. Diffuse increased interstitial markings. No focal airspace disease. 2. Large amount of gastric or bowel contents partially visualized. Further investigation with abdomin al radiograph could be performed if clinically warranted.
--- NOTE | 2018-10-30 18:45 | XR ---
EXAMINATION TYPE: XR abdomen 1V DATE OF EXAM: 10/30/2018 6:15 PM CLINICAL HISTORY: Abdominal pain and distention TECHNIQUE: Single supine KUB image of the abdomen is obtained. COMPARISON: None. FINDINGS: The stomach is distended with a large amount of food material. No dilated loops of large or small bowel. 3 radiopaque densities project midline as well as a stimulator device projects left of midline. Osseous structures are unremarkable. IMPRESSION: Stomach is massively distended with a large amount of food material.
[2018-10-30 19:10] LABS: Appearance,Urine Clear (Clear); Bilirubin,Urine Negative (Negative); Blood,Urine Negative (Negative); Color,Urine Yellow; Glucose,Urine (UA) Negative (Negative); Ketones,Urine Negative (Negative); Leukocyte Esterase,Urine Negative (Negative); Nitrite,Urine Negative (Negative); Protein,Urine Negative (Negative); Specific Gravity,Urine 1.014 (1.001-1.035); Urobilinogen,Urine <2.0 mg/dL (<2.0)
--- NOTE | 2018-10-30 19:40 | CT ---
EXAMINATION TYPE: CT ChestAbdPelvis w con DATE OF EXAM: 10/30/2018 COMPARISON: Abdominal radiograph earlier the same day HISTORY: Abdominal pain. fever and sweats CT DLP: 1768.3 mGycm Automated exposure control for dose reduction was used. CONTRAST: CT scan of the chest, abdomen and pelvis is performed without Oral Contrast and with IV Contrast, pat ient injected with 100 mL of Isovue 300. FINDINGS: LUNGS: Multifocal bilateral airspace disease is evident. This is most pronounced involving the left l ower lung with air bronchograms present. The airway is clear. No pneumothorax or pleural effusion. MEDIASTINUM: Enlarged mediastinal and hilar lymph nodes are evident. Right paratracheal node measures up to 1.4 cm in short axis. Right-sided hilar node measures up to 2.0 cm. OTHER: No additional significant abnormality is seen. LIVER/GB: No significant abnormality . PANCREAS: No significant abnormality is seen. SPLEEN: Spleen is enlarged. ADRENALS: No significant abnormality. KIDNEYS: Too small to characterize regions of hypoattenuation are seen of the kidneys bilaterally. Th ere is a focal calcification of the left renal hilum which is favored to represent calcification of a renal artery. BOWEL: The stomach is massively distended with food material. There is no overt evidence of gastric outlet obstruction. The first, second and third portions of the duodenum are distended measuring up t o 4.5 cm. There is no definitive transition point of the duodenum at this location. A large amount of stool is seen throughout the colon. REPRODUCTIVE ORGANS: No gross abnormality seen. LYMPH NODES: No greater than 1 cm abdominal or pelvic lymph nodes are appreciated. OSSEOUS STRUCTURES: Intervertebral disc spacers are seen at L3-L4, L4-L5 and L5-S1 with a spinal stim ulator device also present. VESSELS: Focal aneurysmal dilatation of the infrarenal abdominal aorta measuring up to 3.6 cm in hinojosa sverse dimension with a chronic appearing dissection just proximal to the aortic bifurcation. There i s intramural thrombus within the false lumen. Extensive calcified atheromatous plaquing is seen throu ghout the abdominal aorta and its branches. IMPRESSION: 1. Multifocal bilateral predominantly bibasilar airspace disease. Enlarged hilar and mediastinal lymp h nodes are also present. Multifocal pneumonia is favored. Serial radiographs are recommended to ensu re resolution. 2. Massively distended stomach with dilation of the first, second and third portions of the duodenum. No definitive transition point is identified suggesting a focal obstruction. 3. Splenomegaly. 4. Chronic appearing infrarenal abdominal aortic dissection with focal aneurysm. 5. Postsurgical changes of the spine.
[2018-10-30] MEDS ORDERED: PNEUMONIA PROTOCOL UTILIZED 1 EACH MISC PO PRN (20:10)
[2018-10-30] MEDS ORDERED: SIMETHICONE 80 MG CHEWABLE PO PRN (20:12)
[2018-10-30] MEDS: SODIUM CHLORIDE 0.9% 1,000 ML IV SCH (22:04)
[2018-10-30] MEDS ORDERED: IPRATROPIUM-ALBUTEROL 3 ML NEB INHALATION PRN (22:24)
[2018-10-30] MEDS ORDERED: ONDANSETRON 4 MG TAB PO PRN (22:24)
[2018-10-30] MEDS ORDERED: ACETAMINOPHEN TAB 325 MG TAB PO PRN (22:31)
[2018-10-30] MEDS: levETIRAcetam 500 MG TAB PO SCH (22:40)
[2018-10-30] MEDS: metFORMIN 500 MG TAB PO SCH (22:40)
[2018-10-30] MEDS: MAGNESIUM OXIDE 400 MG TAB PO SCH (22:40)
[2018-10-31 06:55] LABS: Glucose,Whole Blood 175 mg/dL (75-99)
[2018-10-31] MEDS: IPRATROPIUM-ALBUTEROL 3 ML NEB INHALATION SCH ×4 (07:27→20:27)
[2018-10-31] MEDS ORDERED: ALBUTEROL NEBULIZED 2.5 MG/3 ML INHALATION SCH (08:00)
--- NOTE | 2018-10-31 08:00 | XR ---
EXAMINATION TYPE: XR chest 2V DATE OF EXAM: 10/31/2018 COMPARISON: Prior chest x-ray and CT 10/30/2018 HISTORY: Pneumonia, follow-up TECHNIQUE: Frontal and lateral views of the chest are obtained. FINDINGS: Subsegmental atelectatic changes present at the lung bases. No pneumothorax or sizable eff usion. Heart size is stable. There are overlying cardiac leads. Pulmonary vascularity and mj not si gnificantly changed. IMPRESSION: Basilar atelectasis, correlate for pneumonia. Patient's mediastinal adenopathy is not ev ident on plain film
[2018-10-31] MEDS: FOLIC ACID 1 MG TAB PO SCH (08:16)
[2018-10-31] MEDS: CYCLOBENZAPRINE 5 MG TAB PO SCH ×3 (08:16→22:04)
[2018-10-31] MEDS: TAMSULOSIN 0.4 MG CAP.ER.24H PO SCH (08:16)
[2018-10-31] MEDS: MULTIVITAMINS, THERA 1 EACH TAB PO SCH (08:16)
[2018-10-31] MEDS: PARoxetine 20 MG TAB PO SCH (08:16)
[2018-10-31] MEDS: FUROSEMIDE 20 MG TAB PO SCH (08:16)
[2018-10-31] MEDS: ASPIRIN 81 MG PO SCH (08:16)
[2018-10-31] MEDS: FERROUS SULFATE 325 MG TAB PO SCH (08:16)
[2018-10-31] MEDS: LISINOPRIL 5 MG TAB PO SCH (08:16)
[2018-10-31] MEDS: levETIRAcetam 500 MG TAB PO SCH ×2 (08:16→20:39)
[2018-10-31] MEDS: OXYBUTYNIN XL 5 MG TAB.ER.24 PO SCH (08:16)
[2018-10-31] MEDS: MAGNESIUM OXIDE 400 MG TAB PO SCH ×2 (08:16→20:40)
[2018-10-31] MEDS: metFORMIN 500 MG TAB PO SCH (08:17)
[2018-10-31] MEDS: PREGABALIN 75 MG CAP PO SCH ×2 (08:17→20:40)
[2018-10-31] MEDS: INSULIN DETEMIR (LEVEMIR) 100 UNIT/ML SYR SQ SCH (08:17)
[2018-10-31] MEDS: SERTRALINE 100 MG TAB PO SCH (08:17)
[2018-10-31] MEDS: HYDROcodone/APAP 5-325MG 1 EACH TAB PO PRN ×2 (08:17→17:18)
[2018-10-31] MEDS: SODIUM CHLORIDE 0.9% 1,000 ML IV SCH ×2 (08:57→17:17)
[2018-10-31] MEDS: NON-FORMULARY DRUG (Liraglutide [Victoza 2-Pak] 1.8 MG) SQ SCH (08:57)
[2018-10-31] MEDS ORDERED: ATORVASTATIN 80 MG TAB PO SCH (09:00)
[2018-10-31] MEDS ORDERED: CLOPIDOGREL 75 MG TAB PO SCH (09:00)
[2018-10-31] MEDS ORDERED: PARoxetine 20 MG TAB PO SCH (09:00)
[2018-10-31 09:26] LABS: ALT 25 U/L (21-72); AST 33 U/L (17-59); Albumin 3.2 g/dL (3.5-5.0); Alkaline Phosphatase 101 U/L (38-126); Anion Gap 7 mmol/L; Blood Urea Nitrogen 14 mg/dL (9-20); Calcium 8.2 mg/dL (8.4-10.2); Carbon Dioxide 28 mmol/L (22-30); Chloride 102 mmol/L (98-107); Glucose 251 mg/dL (74-99); Sodium 137 mmol/L (137-145); Total Bilirubin 0.4 mg/dL (0.2-1.3); Total Protein 6.6 g/dL (6.3-8.2)
[2018-10-31 09:47] LABS: Anisocytosis Slight; HCT 31.8 % (39.0-53.0); HGB 9.8 gm/dL (13.0-17.5); Hypochromasia Marked; MCH 29.9 pg (25.0-35.0); MCHC 30.8 g/dL (31.0-37.0); MCV 97.2 fL (80.0-100.0); Macrocytosis Slight; Mean Platelet Volume 7.9; Platelet Count 109 k/uL (150-450); RBC 3.27 m/uL (4.30-5.90); RDW 18.5 % (11.5-15.5); WBC 8.4 k/uL (3.8-10.6)
[2018-10-31 10:37] LABS: Band Neutrophils % 2 %; Eosinophils # (M) 0.25 k/uL (0-0.7); Lymphocytes # (M) 1.76 k/uL (1.0-4.8); Monocytes # (M) 0.84 k/uL (0-1.0); Neutrophils % (M) 64 %; Nucleated Red Blood Cells 0 /100 WBC (0-0); Total Cells Counted 100
--- NOTE | 2018-10-31 11:58 | XR ---
EXAMINATION TYPE: XR chest 1V portable DATE OF EXAM: 10/31/2018 COMPARISON: Prior chest x-ray dated 10/31/2018 HISTORY: Gastric tube placement TECHNIQUE: Single frontal view of the chest is obtained. FINDINGS: There is been interval placement of a gastric tube, distal tip is within the stomach. No o ther significant change. IMPRESSION: Satisfactory gastric tube placement.
[2018-10-31 12:05] LABS: Glucose,Whole Blood 166 mg/dL (75-99)
--- NOTE | 2018-10-31 12:57 | P.HPIM ---
History of Present Illness H&P Date: 10/31/18 This is a 58-year-old male patient of Dr. Whitlock. Patient presented with complaints of shortness of breath. Patient states that over the past 2 days he has Had increased sputum production and fever. Patient reports that approximately 6 days ago he underwent EGD to investigate anemia with Dr. Abbey marx. Patient denies any recent abdominal pain nausea or vomiting. Patient reports he has been having normal bowel movements. Patient has past medical history of COPD, CVA, diabetes mellitus, hyperlipidemia, hypertension, memory impairment, seizure disorder, PainPump, anemia, anxiety, depression, nicotine dependence. Patient also recently underwent balloon angioplasty of the left SFA and maintained on Plavix. Diffuse increased interstitial markings. No focal airspace disease. Large amount of gastric or bowel contents partially visualized. Abdominal x-ray completed showing stomach is massively distended with a large amount of food material. CT of abdomen and pelvis completed showi ng multifocal bilateral predominantly basal basilar airspace disease. Enlarged hilar or mediastinal lymph nodes are also present. Multifocal pneumonia is favored. Massively distended stomach dilation of the first second and third portions of the duodenum. No definitive transition point is identified at adjusting of focal obstruction. Splenomegaly. Chronic appearing infrarenal abdominal aortic dissection with a focal areas. Postsurgical changes of the spine. EKG completed showing sinus tachycardia. Chest x-ray completed showing basal atelectasis, correlate for pneumonia. Patient's mediastinal adeno he is not evident on plain film. Patient had temperature 104.5 on admission. UA neg ative. Blood negative. Group B strep negative. Sputum, blood and urine cultures ordered. Pulmonary service is consulted. Patient started on Rocephin and azithromycin. Surgical services also consulted. At this time patient's abdomen significantly distended. Patient states that this is normal for him and he is not complaining of any specific pain or discomfort. Patient denies nausea vomiting or diarrhea. Patient denies any chest pain. Patient denies any urinary burning or frequency Review of Systems Please refer to HPI otherwise unremarkable Past Medical History Past Medical History: COPD, CVA/TIA, Diabetes Mellitus, Hyperlipidemia, Hypertension, Memory Impairment, Seizure Disorder, Skin Disorder Additional Past Medical History / Comment(s): pain pump in back, anemia. History of Any Multi-Drug Resistant Organisms: None Reported Past Surgical History: Appendectomy, Back Surgery, Orthopedic Surgery Additional Past Surgical History / Comment(s): titanium shaft in lt leg, skin graph to rt 1st and middle finger, lt eardum replaced, cyrus. foot surgery to arch Past Anesthesia/Blood Transfusion Reactions: No Reported Reaction Past Psychological History: Anxiety, Depression Smoking Status: Current every day smoker Past Alcohol Use History: None Reported Additional Past Alcohol Use History / Comment(s): 1-2ppd Past Drug Use History: None Reported - Past Family History Brother(s) Family Medical History: No Reported History Mother Family Medical History: COPD, Diabetes Mellitus Medications and Allergies Home Medications Medication Instructions Recorded Confirmed Type Aspirin [Adult Low Dose Aspirin EC] 81 mg PO DAILY 08/28/15 10/30/18 History Clopidogrel [Plavix] 75 mg PO DAILY 08/28/15 10/30/18 History Folic Acid 1 mg PO DAILY 08/28/15 10/30/18 History Lisinopril [Prinivil] 5 mg PO DAILY 08/28/15 10/30/18 History Multivitamins, Thera [Multivitamin 1 tab PO DAILY 08/28/15 10/30/18 History (formulary)] PARoxetine [Paxil] 20 mg PO DAILY 08/28/15 10/31/18 History Albuterol Inhaler [Ventolin Hfa 1 - 2 puff INHALATION RT-Q6H PRN 07/19/18 10/30/18 History Inhaler] Furosemide [Lasix] 20 mg PO DAILY 07/19/18 10/30/18 History Insulin Glargine,Hum.rec.anlog 57 unit SQ DAILY 07/19/18 10/30/18 History [Gayla Montgomery U-100] Insulin Lispro [Admelog] 9 unit SQ AC-TID 07/19/18 10/30/18 History Liraglutide [Victoza 2-Selvin] 1.8 mg SQ DAILY 07/19/18 10/30/18 History Pregabalin [Lyrica] 150 mg PO BID 07/20/18 10/30/18 History levETIRAcetam [Keppra] 1,000 mg PO Q12HR 07/20/18 10/30/18 History Atorvastatin Calcium [Lipitor] 80 mg PO DAILY 10/20/18 10/30/18 History Ferrous Sulfate [Feosol] 325 mg PO DAILY 10/20/18 10/30/18 History HYDROcodone/APAP 5-325MG [[place] 1 tab PO TID PRN 10/20/18 10/30/18 History 5-325] Ondansetron HCl [Zofran] 8 mg PO Q6H PRN 10/20/18 10/30/18 History Tamsulosin [Flomax] 0.4 mg PO DAILY 10/20/18 10/30/18 History metFORMIN HCL 1,000 mg PO BID 10/20/18 10/30/18 History Albuterol Nebulized [Ventolin 2.5 mg INHALATION RT-BID 10/30/18 10/30/18 History Nebulized] Cyclobenzaprine [Flexeril] 5 mg PO TID 10/30/18 10/30/18 History Ibuprofen [Motrin] 600 mg PO TID PRN 10/30/18 10/30/18 History Insulin Lispro [Admelog] See Protocol SQ AC-TID 10/30/18 10/30/18 History Magnesium Oxide [Mag-Ox] 250 mg PO BID 10/30/18 10/30/18 History Oxybutynin Xl [Ditropan Xl] 5 mg PO DAILY 10/30/18 10/30/18 History Sertraline [Zoloft] 100 mg PO DAILY 10/30/18 10/30/18 History Simethicone [Gas-X] 125 mg PO TID PRN 10/30/18 10/30/18 History Allergies Allergy/AdvReac Type Severity Reaction Status Date / Time morphine AdvReac Nausea & Verified 10/30/18 17:01 Vomiting Physical Exam Vitals: Vital Signs Temp Pulse Pulse Resp BP BP Pulse Ox 10/31/18 11:43 90 10/31/18 11:34 94 10/31/18 08:00 98.3 F 96 22 109/59 90 L 10/31/18 07:37 96 10/31/18 07:30 92 92 L 10/31/18 04:14 97.8 F 85 16 107/67 92 L 10/31/18 00:28 98.9 F 82 19 106/61 92 L 10/30/18 22:12 16 10/30/18 21:20 98.9 F 91 16 101/58 93 L 10/30/18 20:43 99.5 F 10/30/18 20:31 94 18 143/77 94 L 10/30/18 18:02 103 F H 10/30/18 17:59 111 H 18 138/59 92 L 10/30/18 16:37 104.5 F H 105 H 20 150/70 90 L Intake and Output 10/30/18 10/31/18 10/31/18 22:59 06:59 14:59 Intake Total 120 340 Balance 120 340 Intake: Oral 120 340 Other: Voiding Method Toilet Toilet Urinal Urinal # Voids 0 1 Weight 131.995 kg 99.7 kg Head normocephalic Neck supple Lungs diminished bilaterally Heart regular rate and rhythm S1-S2, no rub or gallop Abdomen i hard distended nontender abdomen Extremities no edema Neuro alert and orientated to 3 Results CBC & Chem 7: 10/31/18 08:43 10/31/18 08:43 Labs: Abnormal Lab Results - Last 24 Hours (Table) 10/30/18 10/30/18 10/30/18 Range/Units 16:57 17:00 17:00 RBC 3.75 L (4.30-5.90) m/uL Hgb 11.1 L (13.0-17.5) gm/dL Hct 35.2 L (39.0-53.0) % MCHC (31.0-37.0) g/dL RDW 18.8 H (11.5-15.5) % Plt Count 119 L (150-450) k/uL Lymphocytes # 0.5 L (1.0-4.8) k/uL Sodium 135 L (137-145) mmol/L Potassium 5.7 H (3.5-5.1) mmol/L Glucose 201 H (74-99) mg/dL POC Glucose (mg/dL) 205 H (75-99) mg/dL Calcium (8.4-10.2) mg/dL Albumin (3.5-5.0) g/dL 10/31/18 10/31/18 10/31/18 Range/Units 06:53 08:43 08:43 RBC 3.27 L (4.30-5.90) m/uL Hgb 9.8 L (13.0-17.5) gm/dL Hct 31.8 L (39.0-53.0) % MCHC 30.8 L (31.0-37.0) g/dL RDW 18.5 H (11.5-15.5) % Plt Count 109 L (150-450) k/uL Lymphocytes # (1.0-4.8) k/uL Sodium (137-145) mmol/L Potassium (3.5-5.1) mmol/L Glucose 251 H (74-99) mg/dL POC Glucose (mg/dL) 175 H (75-99) mg/dL Calcium 8.2 L (8.4-10.2) mg/dL Albumin 3.2 L (3.5-5.0) g/dL 10/31/18 Range/Units 12:03 RBC (4.30-5.90) m/uL Hgb (13.0-17.5) gm/dL Hct (39.0-53.0) % MCHC (31.0-37.0) g/dL RDW (11.5-15.5) % Plt Count (150-450) k/uL Lymphocytes # (1.0-4.8) k/uL Sodium (137-145) mmol/L Potassium (3.5-5.1) mmol/L Glucose (74-99) mg/dL POC Glucose (mg/dL) 166 H (75-99) mg/dL Calcium (8.4-10.2) mg/dL Albumin (3.5-5.0) g/dL Microbiology - Last 24 Hours (Table) 10/30/18 17:12 Group A Strep Throat Culture - Preliminary Throat 10/30/18 18:47 Urine Culture - Preliminary Urine,Voided Thrombosis Risk Factor Assmnt - Choose All That Apply Each Factor Represents 1 point: Abnormal pulmonary function (COPD), Age 41-60 years, Obesity (BMI >25), Serious lung disease incl. pneumonia (< 1month) Other Risk Factors: No Other congenital or acquired thrombophilia - If yes, enter type in comment: No Thrombosis Risk Factor Assessment Total Risk Factor Score: 4 Thrombosis Risk Factor Assessment Level: Moderate Risk Assessment and Plan Assessment: 1. Shortness of breath related to pneumonia and febrile. CT of chest showing multifocal bilateral predominantly bibasilar airspace disease. Enlarged hilar or mediastinal lymph nodes are also present. Multifocal pneumonia is favored. Dr. gan has been consulted for pulmonary care. Patient's arm Rocephin and Zithromax. Patient had temperature 104.5 on admission. Blood urine and sputum cultures have been ordered 2. Abdominal distention. CT of abdomen and pelvis completed showing massively distended stomach with dilation of the first, second and third portions of the duodenum. No definitive transition point is identified suggesting focal obstruction. Surgical services have been consulted. NG tube has been placed patient made nothing by mouth 3. Recent EGD and colonoscopy with Dr. Santiago 6 days ago. Results showing antral gastritis, transverse colon polyp and mild diverticulosis 4. Recent balloon angioplasty to left SFA in July [address] Degroot. maintained on Plavix and aspirin 5. History of COPD 6. History of diabetes mellitus. Metformin on hold. Home meds resumed sliding scale coverage ordered. Hemoglobin A1c ordered. 7. History of hyperlipidemia 8. History of essential hypertension 9. Seizure disorder patient maintained on Keppra 10. History of chronic pain with pain pump 11. Nicotine dependence. Nicotine patch ordered 12. History of anxiety and depression DVT prophylaxis SCDs to evaluate surgical services. GI prophylaxis Protonix Time with Patient: Greater than 30 (Greater than 60% of the total time spent in counseling and coordination of care. I performed an examination of the patient and discussed their management with the Nurse Practitioner. I have reviewed the Nurse Practitioner's notes and agree with the documented findings and plan of care)
--- NOTE | 2018-10-31 13:00 | P.GSCN ---
History of Present Illness Consult date: 10/31/18 Reason for Consult: Abnormal CT Requesting physician: Cristine Vides History of present illness: CHIEF COMPLAINT: Abnormal CT HISTORY OF PRESENT ILLNESS: 58-year-old male who is admitted to the hospital with pneumonia. General surgery was consulted for further evaluation after CT scan was completed revealing massively distended stomach and dilation of the first, second, and third portions of the duodenum. Patient examined at the bedside. Overall, patient appears asymptomatic. He denies abdominal pain. Denies nausea or vomiting. Denies decreased appetite. Denies diarrhea or constipation. Reports BM yesterday that was normal in characteristics. Patients abdomen firm and very distended. Patient states his abdomen has been that size for years and denies increased bloating or distention. Patient underwent EGD and colonoscopy on 10/24/[address] Santiago revealing antral gastritis, transverse colon polyp, and mild diverticulosis. Pathology reveals chronic gastritis and tubular adenoma. PAST MEDICAL HISTORY: See list. PAST SURGICAL HISTORY: See list. SOCIAL HISTORY: No illicit drug use. REVIEW OF SYSTEMS: CONSTITUTIONAL: Reports fever at home. HEENT: Denies blurred vision, vision changes, or eye pain. Denies hemoptysis CARDIOVASCULAR: Denies chest pain or pressure. RESPIRATORY: Reports cough. GASTROINTESTINAL: Refer to HPI for pertinent findings HEMATOLOGIC: Denies bleeding disorders. GENITOURINARY: Denies any blood in urine. SKIN: Denies pruitis. Denies rash. PHYSICAL EXAM: VITAL SIGNS: Reviewed. GENERAL: Well-developed in no acute distress. HEENT: No sclera icterus. Extraocular movements grossly intact. Moist buccal mucosa. Head is atraumatic, normocephalic. ABDOMEN: Significantly distended. Firm. No pain or tenderness with palpation. Positive bowel sounds. NEUROLOGIC: Alert and oriented. Cranial nerves II through XII grossly intact. ASSESSMENT: 1. Massively dilated stomach and duodenum with recent EGD and colonoscopy, possible focal obstruction with no transition point identified on CT, however patient asymptomatic and denies abdominal complaints PLAN: Case discussed with Dr. Santiago. NPO except medications. Place NG to LIS. Walter her recommendations pending. Nurse practitioner note has been reviewed by physician. Signing provider agrees with the documented findings, assessment, and plan of care. Past Medical History Past Medical History: COPD, CVA/TIA, Diabetes Mellitus, Hyperlipidemia, Hypertension, Memory Impairment, Seizure Disorder, Skin Disorder Additional Past Medical History / Comment(s): pain pump in back, anemia. History of Any Multi-Drug Resistant Organisms: None Reported Past Surgical History: Appendectomy, Back Surgery, Orthopedic Surgery Additional Past Surgical History / Comment(s): titanium shaft in lt leg, skin graph to rt 1st and middle finger, lt eardum replaced, cyrus. foot surgery to arch Past Anesthesia/Blood Transfusion Reactions: No Reported Reaction Past Psychological History: Anxiety, Depression Smoking Status: Current every day smoker Past Alcohol Use History: None Reported Additional Past Alcohol Use History / Comment(s): 1-2ppd Past Drug Use History: None Reported - Past Family History Brother(s) Family Medical History: No Reported History Mother Family Medical History: COPD, Diabetes Mellitus Medications and Allergies Home Medications Medication Instructions Recorded Confirmed Type Aspirin [Adult Low Dose Aspirin EC] 81 mg PO DAILY 08/28/15 10/30/18 History Clopidogrel [Plavix] 75 mg PO DAILY 08/28/15 10/30/18 History Folic Acid 1 mg PO DAILY 08/28/15 10/30/18 History Lisinopril [Prinivil] 5 mg PO DAILY 08/28/15 10/30/18 History Multivitamins, Thera [Multivitamin 1 tab PO DAILY 08/28/15 10/30/18 History (formulary)] PARoxetine [Paxil] 20 mg PO DAILY 08/28/15 10/31/18 History Albuterol Inhaler [Ventolin Hfa 1 - 2 puff INHALATION RT-Q6H PRN 07/19/18 10/30/18 History Inhaler] Furosemide [Lasix] 20 mg PO DAILY 07/19/18 10/30/18 History Insulin Glargine,Hum.rec.anlog 57 unit SQ DAILY 07/19/18 10/30/18 History [Basaglar Kwikpen U-100] Insulin Lispro [Admelog] 9 unit SQ AC-TID 07/19/18 10/30/18 History Liraglutide [Victoza 2-Selvin] 1.8 mg SQ DAILY 07/19/18 10/30/18 History Pregabalin [Lyrica] 150 mg PO BID 07/20/18 10/30/18 History levETIRAcetam [Keppra] 1,000 mg PO Q12HR 07/20/18 10/30/18 History Atorvastatin Calcium [Lipitor] 80 mg PO DAILY 10/20/18 10/30/18 History Ferrous Sulfate [Feosol] 325 mg PO DAILY 10/20/18 10/30/18 History HYDROcodone/APAP 5-325MG [[place] 1 tab PO TID PRN 10/20/18 10/30/18 History 5-325] Ondansetron HCl [Zofran] 8 mg PO Q6H PRN 10/20/18 10/30/18 History Tamsulosin [Flomax] 0.4 mg PO DAILY 10/20/18 10/30/18 History metFORMIN HCL 1,000 mg PO BID 10/20/18 10/30/18 History Albuterol Nebulized [Ventolin 2.5 mg INHALATION RT-BID 10/30/18 10/30/18 History Nebulized] Cyclobenzaprine [Flexeril] 5 mg PO TID 10/30/18 10/30/18 History Ibuprofen [Motrin] 600 mg PO TID PRN 10/30/18 10/30/18 History Insulin Lispro [Admelog] See Protocol SQ AC-TID 10/30/18 10/30/18 History Magnesium Oxide [Mag-Ox] 250 mg PO BID 10/30/18 10/30/18 History Oxybutynin Xl [Ditropan Xl] 5 mg PO DAILY 10/30/18 10/30/18 History Sertraline [Zoloft] 100 mg PO DAILY 10/30/18 10/30/18 History Simethicone [Gas-X] 125 mg PO TID PRN 10/30/18 10/30/18 History Allergies Allergy/AdvReac Type Severity Reaction Status Date / Time morphine AdvReac Nausea & Verified 10/30/18 17:01 Vomiting Surgical - Exam Vital Signs Temp Pulse Resp BP Pulse Ox 104.5 F H 105 H 20 150/70 90 L 10/30/18 16:37 10/30/18 16:37 10/30/18 16:37 10/30/18 16:37 10/30/18 16:37 Results - Labs 10/31/18 08:43 10/31/18 08:43 Abnormal Lab Results - Last 24 Hours (Table) 10/30/18 10/30/18 10/30/18 Range/Units 16:57 17:00 17:00 RBC 3.75 L (4.30-5.90) m/uL Hgb 11.1 L (13.0-17.5) gm/dL Hct 35.2 L (39.0-53.0) % MCHC (31.0-37.0) g/dL RDW 18.8 H (11.5-15.5) % Plt Count 119 L (150-450) k/uL Lymphocytes # 0.5 L (1.0-4.8) k/uL Sodium 135 L (137-145) mmol/L Potassium 5.7 H (3.5-5.1) mmol/L Glucose 201 H (74-99) mg/dL POC Glucose (mg/dL) 205 H (75-99) mg/dL Calcium (8.4-10.2) mg/dL Albumin (3.5-5.0) g/dL 10/31/18 10/31/18 10/31/18 Range/Units 06:53 08:43 08:43 RBC 3.27 L (4.30-5.90) m/uL Hgb 9.8 L (13.0-17.5) gm/dL Hct 31.8 L (39.0-53.0) % MCHC 30.8 L (31.0-37.0) g/dL RDW 18.5 H (11.5-15.5) % Plt Count 109 L (150-450) k/uL Lymphocytes # (1.0-4.8) k/uL Sodium (137-145) mmol/L Potassium (3.5-5.1) mmol/L Glucose 251 H (74-99) mg/dL POC Glucose (mg/dL) 175 H (75-99) mg/dL Calcium 8.2 L (8.4-10.2) mg/dL Albumin 3.2 L (3.5-5.0) g/dL 10/31/18 Range/Units 12:03 RBC (4.30-5.90) m/uL Hgb (13.0-17.5) gm/dL Hct (39.0-53.0) % MCHC (31.0-37.0) g/dL RDW (11.5-15.5) % Plt Count (150-450) k/uL Lymphocytes # (1.0-4.8) k/uL Sodium (137-145) mmol/L Potassium (3.5-5.1) mmol/L Glucose (74-99) mg/dL POC Glucose (mg/dL) 166 H (75-99) mg/dL Calcium (8.4-10.2) mg/dL Albumin (3.5-5.0) g/dL Microbiology - Last 24 Hours (Table) 10/30/18 17:12 Group A Strep Throat Culture - Preliminary Throat 10/30/18 18:47 Urine Culture - Preliminary Urine,Voided Diabetes panel 10/30/18 10/31/18 Range/Units 17:00 08:43 Sodium 135 L 137 (137-145) mmol/L Potassium 5.7 H 5.0 (3.5-5.1) mmol/L Chloride 101 102 (98-107) mmol/L Carbon Dioxide 26 28 (22-30) mmol/L BUN 13 14 (9-20) mg/dL Creatinine 0.90 0.79 (0.66-1.25) mg/dL Glucose 201 H 251 H (74-99) mg/dL Calcium 8.6 8.2 L (8.4-10.2) mg/dL AST 37 33 (17-59) U/L ALT 21 25 (21-72) U/L Alkaline Phosphatase 115 101 (38-126) U/L Total Protein 7.5 6.6 (6.3-8.2) g/dL Albumin 3.7 3.2 L (3.5-5.0) g/dL Calcium panel 10/30/18 10/31/18 Range/Units 17:00 08:43 Calcium 8.6 8.2 L (8.4-10.2) mg/dL Albumin 3.7 3.2 L (3.5-5.0) g/dL Pituitary panel 10/30/18 10/31/18 Range/Units 17:00 08:43 Sodium 135 L 137 (137-145) mmol/L Potassium 5.7 H 5.0 (3.5-5.1) mmol/L Chloride 101 102 (98-107) mmol/L Carbon Dioxide 26 28 (22-30) mmol/L BUN 13 14 (9-20) mg/dL Creatinine 0.90 0.79 (0.66-1.25) mg/dL Glucose 201 H 251 H (74-99) mg/dL Calcium 8.6 8.2 L (8.4-10.2) mg/dL Adrenal panel 10/30/18 10/31/18 Range/Units 17:00 08:43 Sodium 135 L 137 (137-145) mmol/L Potassium 5.7 H 5.0 (3.5-5.1) mmol/L Chloride 101 102 (98-107) mmol/L Carbon Dioxide 26 28 (22-30) mmol/L BUN 13 14 (9-20) mg/dL Creatinine 0.90 0.79 (0.66-1.25) mg/dL Glucose 201 H 251 H (74-99) mg/dL Calcium 8.6 8.2 L (8.4-10.2) mg/dL Total Bilirubin 0.4 0.4 (0.2-1.3) mg/dL AST 37 33 (17-59) U/L ALT 21 25 (21-72) U/L Alkaline Phosphatase 115 101 (38-126) U/L Total Protein 7.5 6.6 (6.3-8.2) g/dL Albumin 3.7 3.2 L (3.5-5.0) g/dL
[2018-10-31 13:15] LABS: Amylase 44 U/L (30-110); Lipase 62 U/L (23-300)
--- NOTE | 2018-10-31 14:21 | XR ---
Abdomen HISTORY: Abdominal distention Frontal view of the abdomen on 2 images, correlation to prior abdomen and CT abdomen 10/30/2018 There is a gastric tube in place, distal tip within the stomach. There are overlying cardiac leads. T here is a generator overlying the left gluteal region, multiple metallic densities are overlying the lower lumbar spine, there are laminectomies present. There is a spinal curvature. Lung bases are layo r. There is no pneumoperitoneum or evident bowel obstruction. Retained fecal debris is present throug hout the distribution of the colon. Material again seen within the stomach. There are air-fluid level s present. IMPRESSION: Correlate for enteritis, fecal stasis.
[2018-10-31 17:03] LABS: Glucose,Whole Blood 106 mg/dL (75-99)
[2018-10-31] MEDS: INSULIN ASPART (NovoLOG) 100 UNIT/ML VIAL SQ SCH ×2 (17:10→20:40)
--- NOTE | 2018-10-31 19:04 | P.CNPUL ---
History of Present Illness Consult date: 10/31/18 Reason for consult: dyspnea History of present illness: 78-year-old male patient presented to the hospital because of worsening shortness of breath a few days duration addition to some increased sputum production and fever. The patient is post EGD approximately 6 days ago and this was done by Dr. Kaplan. He is known to have COPD, diabetes mellitus, hypertension and hyperlipidemia and previous history of CVA and he has issues with seizure disorder and memory impairment and chronic anxiety and depression. He has peripheral vascular disease has undergone previous balloon angioplasty of the left SFA. The patient is currently on room air oxygen and the pulse ox is around 92%. The CAT scan of the chest abdomen and pelvis was done and showed multifocal bilateral pneumonia predominantly in lung bases along with airspace disease. There is a large hilar and mediastinal lymph nodes that are also present. There is a massive distended stomach with dilatation of the first and second and third portion of the duodenum. No definite transition point is found to suggest obstruction. No splenomegaly. Chronic appearing infrarenal abdomi nal aortic dissection with focal aneurysm is seen. The patient is currently on accommodation Rocephin and Zithromax. The patient was started on DuoNeb the last 2 minutes [id number]. Outpatient medication of been ordered resume. Pulmonary consultation was requested. Note that the EGD that was done on 10/24/2018 was essentially uneventful. The patient was found to have antral gastritis. Colonoscopy showed mild diverticulosis, transfers colonic polyps and overall colon prep was poor. The abdominal x-ray showed that the patient has a generator in the left gluteus region. Lung bases were clear. There was no pneumoperitoneum. There is retained fecal debris's throughout the colon. Gen. surgery has been consulted regarding the CAT scan of the abdomen findings. The patient reported bowel movement 24-48 hours ago. The patient denied having any distention or pain. There was a significant distention of the stomach and the duodenum and for that reason the patient was kept nothing by mouth and an NG tube was placed. Review of Systems Constitutional: Denies chills, Denies fever Eyes: denies as per HPI, denies blurred vision, denies bulging eye, denies decreased vision, denies diplopia, denies discharge, denies dry eye, denies irritation, denies itching, denies pain, denies photophobia, denies loss of peripheral vision, denies loss of vision, denies tunnel vision/blind spots Ears: deny: decreased hearing, ear discharge, earache, tinnitus Ears, nose, mouth and throat: Denies headache, Denies sore throat Breasts: absent: as per HPI, gynecomastia Cardiovascular: Denies chest pain, Denies shortness of breath Respiratory: Reports as per HPI, Reports cough, Reports dyspnea Gastrointestinal: Reports abdominal pain, Reports bloating, Reports constipation, Reports nausea Genitourinary: Reports as per HPI Musculoskeletal: Reports as per HPI Musculoskeletal: absent: ankle pain, ankle stiffness, ankle swelling, as per HPI, elbow pain, elbow stiffness, elbow swelling, foot pain, foot stiffness, foot swelling, hand pain, hand stiffness, hand swelling, hip pain, hip stiffness, hip swelling, knee pain, knee stiffness, knee swelling, shoulder pain, shoulder stiffness, shoulder swelling, wrist pain, wrist stiffness, wrist swelling Integumentary: Denies pruritus, Denies rash Neurological: Reports as per HPI Psychiatric: Reports as per HPI Endocrine: Reports as per HPI Hematologic/Lymphatic: Reports as per HPI Allergic/Immunologic: Reports as per HPI Past Medical History Past Medical History: COPD, CVA/TIA, Diabetes Mellitus, Hyperlipidemia, Hypertension, Memory Impairment, Seizure Disorder, Skin Disorder Additional Past Medical History / Comment(s): pain pump in back, anemia. History of Any Multi-Drug Resistant Organisms: None Reported Past Surgical History: Appendectomy, Back Surgery, Orthopedic Surgery Additional Past Surgical History / Comment(s): titanium shaft in lt leg, skin graph to rt 1st and middle finger, lt eardum replaced, cyrus. foot surgery to arch Past Anesthesia/Blood Transfusion Reactions: No Reported Reaction Past Psychological History: Anxiety, Depression Smoking Status: Current every day smoker Past Alcohol Use History: None Reported Additional Past Alcohol Use History / Comment(s): 1-2ppd Past Drug Use History: None Reported - Past Family History Brother(s) Family Medical History: No Reported History Mother Family Medical History: COPD, Diabetes Mellitus Medications and Allergies Home Medications Medication Instructions Recorded Confirmed Type Aspirin [Adult Low Dose Aspirin EC] 81 mg PO DAILY 08/28/15 10/30/18 History Clopidogrel [Plavix] 75 mg PO DAILY 08/28/15 10/30/18 History Folic Acid 1 mg PO DAILY 08/28/15 10/30/18 History Lisinopril [Prinivil] 5 mg PO DAILY 08/28/15 10/30/18 History Multivitamins, Thera [Multivitamin 1 tab PO DAILY 08/28/15 10/30/18 History (formulary)] PARoxetine [Paxil] 20 mg PO DAILY 08/28/15 10/31/18 History Albuterol Inhaler [Ventolin Hfa 1 - 2 puff INHALATION RT-Q6H PRN 07/19/18 10/30/18 History Inhaler] Furosemide [Lasix] 20 mg PO DAILY 07/19/18 10/30/18 History Insulin Glargine,Hum.rec.anlog 57 unit SQ DAILY 07/19/18 10/30/18 History [Basaglar Kwikpen U-100] Insulin Lispro [Admelog] 9 unit SQ AC-TID 07/19/18 10/30/18 History Liraglutide [Victoza 2-Selvin] 1.8 mg SQ DAILY 07/19/18 10/30/18 History Pregabalin [Lyrica] 150 mg PO BID 07/20/18 10/30/18 History levETIRAcetam [Keppra] 1,000 mg PO Q12HR 07/20/18 10/30/18 History Atorvastatin Calcium [Lipitor] 80 mg PO DAILY 10/20/18 10/30/18 History Ferrous Sulfate [Feosol] 325 mg PO DAILY 10/20/18 10/30/18 History HYDROcodone/APAP 5-325MG [[place] 1 tab PO TID PRN 10/20/18 10/30/18 History 5-325] Ondansetron HCl [Zofran] 8 mg PO Q6H PRN 10/20/18 10/30/18 History Tamsulosin [Flomax] 0.4 mg PO DAILY 10/20/18 10/30/18 History metFORMIN HCL 1,000 mg PO BID 10/20/18 10/30/18 History Albuterol Nebulized [Ventolin 2.5 mg INHALATION RT-BID 10/30/18 10/30/18 History Nebulized] Cyclobenzaprine [Flexeril] 5 mg PO TID 10/30/18 10/30/18 History Ibuprofen [Motrin] 600 mg PO TID PRN 10/30/18 10/30/18 History Insulin Lispro [Admelog] See Protocol SQ AC-TID 10/30/18 10/30/18 History Magnesium Oxide [Mag-Ox] 250 mg PO BID 10/30/18 10/30/18 History Oxybutynin Xl [Ditropan Xl] 5 mg PO DAILY 10/30/18 10/30/18 History Sertraline [Zoloft] 100 mg PO DAILY 10/30/18 10/30/18 History Simethicone [Gas-X] 125 mg PO TID PRN 10/30/18 10/30/18 History Allergies Allergy/AdvReac Type Severity Reaction Status Date / Time morphine AdvReac Nausea & Verified 10/30/18 17:01 Vomiting Physical Exam Vitals: Vital Signs Temp Pulse Pulse Resp BP BP Pulse Ox 10/31/18 16:50 86 10/31/18 16:33 84 10/31/18 15:32 98.3 F 82 20 130/77 92 L 10/31/18 12:00 98.0 F 89 20 137/73 90 L 10/31/18 11:43 90 10/31/18 11:34 94 10/31/18 08:00 98.3 F 96 22 109/59 90 L 10/31/18 07:37 96 10/31/18 07:30 92 92 L 10/31/18 04:14 97.8 F 85 16 107/67 92 L 10/31/18 00:28 98.9 F 82 19 106/61 92 L 10/30/18 22:12 16 10/30/18 21:20 98.9 F 91 16 101/58 93 L 10/30/18 20:43 99.5 F 10/30/18 20:31 94 18 143/77 94 L 10/30/18 18:02 103 F H 10/30/18 17:59 111 H 18 138/59 92 L Intake and Output 10/31/18 10/31/18 10/31/18 06:59 14:59 22:59 Intake Total 1140 Balance 1140 Intake: Intake, IV Titration 800 Amount Sodium Chloride 0.9% 1, 800 000 ml @ 100 mls/hr IV . Q10H [facility] Rx#:[id number] Oral 340 Other: Voiding Method Toilet Urinal # Voids 1 # Bowel Movements 1 Weight 99.7 kg Gen. appearance, comfortable likely distress Head exam was generally normal. There was no scleral icterus or corneal arcus. Mucous membranes were moist. Neck was supple and without jugular venous distension, thyromegaly, or carotid bruits. Carotids were easily palpable bilaterally. There was no adenopathy. Lungs are diminished breath sounds bilaterally along with some bibasilar crackles. Cardiac exam revealed the PMI to be normally situated and sized. The rhythm was regular and no extrasystoles were noted during several minutes of auscultation. The first and second heart sounds were normal and physiologic splitting of the second heart sound was noted. There were no murmurs, rubs, clicks, or gallops. Abdominal exam revealed normal bowel sounds. The abdomen is slightly distended. There is tympany at the level of the stomach with umbilical hernia and a small ventral hernia which is easily reducible. There is no organomegaly, or appreciable enlargement of the abdominal aorta. Examination of the extremities revealed easily palpable radial, femoral and pedal pulses. There was no cyanosis, clubbing or edema. Examination of the skin revealed no evidence of significant rashes, suspicious appearing nevi or other concerning lesions. Neurologically awake and alert and there is no focal neurological deficit Psychiatric negative for anxiety or depression. Results - Laboratory Findings CBC and BMP: 10/31/18 08:43 10/31/18 08:43 PT/INR, D-dimer PT 10.1 sec (9.0-12.0) 10/30/18 17:00 INR 0.9 (<1.2) 10/30/18 17:00 Abnormal lab findings: Abnormal Labs 10/30/18 10/30/18 10/30/18 16:57 17:00 17:00 RBC 3.75 L Hgb 11.1 L Hct 35.2 L MCHC RDW 18.8 H Plt Count 119 L Lymphocytes # 0.5 L Sodium 135 L Potassium 5.7 H Glucose 201 H POC Glucose (mg/dL) 205 H Calcium Albumin 10/31/18 10/31/18 10/31/18 06:53 08:43 08:43 RBC 3.27 L Hgb 9.8 L Hct 31.8 L MCHC 30.8 L RDW 18.5 H Plt Count 109 L Lymphocytes # Sodium Potassium Glucose 251 H POC Glucose (mg/dL) 175 H Calcium 8.2 L Albumin 3.2 L 10/31/18 10/31/18 12:03 17:02 RBC Hgb Hct MCHC RDW Plt Count Lymphocytes # Sodium Potassium Glucose POC Glucose (mg/dL) 166 H 106 H Calcium Albumin - Diagnostic Findings Chest x-ray: image reviewed CT scan - chest: image reviewed Assessment and Plan Plan: 1 acute bilateral lower lobe pneumonia left more than right with airspace dise ase and secondary shortness of breath. Consider aspiration pneumonia post endoscopy/EGD. Currently on a combination of Rocephin and Zithromax 2 nonspecific enlarged hilar and based on lymph node, chronicity is not known, will need to be addressed at a later stage after clearing of the pneumonia 3 acute febrile illness secondary to above 4 chronic abdominal distention with a CAT scan of the abdomen and pelvis showing massive distention of the stomach and portions of the duodenum, general quang geries on the case and the patient has an NG tube in place. The patient also has a small umbilical hernia and ventral hernia which is easily reducible. 5 COPD 6 peripheral vascular disease with previous angioplasty of the left SFA 7 diabetes mellitus 8 infrarenal aortic dissection, stable 9 hypertension 10 hyperlipidemia 11 seizure disorder on Keppra 12 history of chronic back pain currently on a pain pump 13 nicotine dependence 14 colonic diverticulosis Plan Suspect aspiration pneumonia. Cover the patient with a combination of Zosyn and Zithromax. Discontinue Rocephin for now. Repeat chest x-ray with the next 24 hours. Keep NG tube in place. Surgical consultation regarding the chronic abdominal distention. We'll follow.
[2018-10-31 19:06] LABS: Iron Saturation 7.65 (15.00-50.00)
[2018-10-31 20:20] LABS: Hemoglobin A1C 7.6 % (4.0-6.0)
[2018-10-31] MEDS: AZITHROMYCIN 500 MG TAB PO SCH (20:39)
[2018-10-31 20:41] LABS: Glucose,Whole Blood 95 mg/dL (75-99)
[2018-10-31] MEDS: PIPERACILLIN-TAZOBACTAM 3.375 GM in SODIUM CHLORIDE 0.9% 100 ML IVPB SCH (22:58)
[2018-11-01 06:34] LABS: Glucose,Whole Blood 113 mg/dL (75-99)
[2018-11-01] MEDS: INSULIN ASPART (NovoLOG) 100 UNIT/ML VIAL SQ SCH ×4 (06:34→21:07)
[2018-11-01 06:46] LABS: Anisocytosis Slight; Basophils % (A) 0 %; Eosinophils # (A) 0.2 k/uL (0-0.7); Eosinophils % (A) 3 %; HGB 10.2 gm/dL (13.0-17.5); Hypochromasia Moderate; Lymphocytes # (A) 1.2 k/uL (1.0-4.8); Lymphocytes % (A) 15 %; MCH 29.3 pg (25.0-35.0); MCHC 30.1 g/dL (31.0-37.0); MCV 97.3 fL (80.0-100.0); Macrocytosis Slight; Mean Platelet Volume 7.1; Monocytes # (A) 0.5 k/uL (0-1.0); Monocytes % (A) 6 %; Neutrophils # (A) 5.8 k/uL (1.3-7.7); Neutrophils % (A) 73 %; Platelet Count 142 k/uL (150-450); RBC 3.49 m/uL (4.30-5.90); RDW 18.6 % (11.5-15.5); WBC 7.9 k/uL (3.8-10.6)
[2018-11-01 07:00] LABS: ALT 27 U/L (21-72); AST 32 U/L (17-59); Albumin 3.4 g/dL (3.5-5.0); Alkaline Phosphatase 101 U/L (38-126); Anion Gap 4 mmol/L; Blood Urea Nitrogen 10 mg/dL (9-20); Calcium 8.7 mg/dL (8.4-10.2); Carbon Dioxide 29 mmol/L (22-30); Chloride 105 mmol/L (98-107); Glucose 99 mg/dL (74-99); Potassium 4.9 mmol/L (3.5-5.1); Sodium 138 mmol/L (137-145); Total Bilirubin 0.4 mg/dL (0.2-1.3); Total Protein 7.1 g/dL (6.3-8.2)
[2018-11-01] MEDS: IPRATROPIUM-ALBUTEROL 3 ML NEB INHALATION SCH ×4 (07:35→20:28)
[2018-11-01] MEDS: levETIRAcetam 500 MG TAB PO SCH ×2 (08:24→21:06)
[2018-11-01] MEDS: INSULIN DETEMIR (LEVEMIR) 100 UNIT/ML SYR SQ SCH (08:24)
[2018-11-01] MEDS: LISINOPRIL 5 MG TAB PO SCH (08:24)
[2018-11-01] MEDS: CYCLOBENZAPRINE 5 MG TAB PO SCH ×3 (08:24→21:07)
[2018-11-01] MEDS: MAGNESIUM OXIDE 400 MG TAB PO SCH ×2 (08:24→21:07)
[2018-11-01] MEDS: AZITHROMYCIN 500 MG TAB PO SCH (08:24)
[2018-11-01] MEDS: FOLIC ACID 1 MG TAB PO SCH (08:24)
[2018-11-01] MEDS: ASPIRIN 81 MG PO SCH (08:24)
[2018-11-01] MEDS: SERTRALINE 100 MG TAB PO SCH (08:24)
[2018-11-01] MEDS: MULTIVITAMINS, THERA 1 EACH TAB PO SCH (08:24)
[2018-11-01] MEDS: FUROSEMIDE 20 MG TAB PO SCH (08:25)
[2018-11-01] MEDS: PANTOPRAZOLE 40 MG/10 ML VIAL IVP SCH (08:25)
[2018-11-01] MEDS: PARoxetine 20 MG TAB PO SCH (08:25)
[2018-11-01] MEDS: FERROUS SULFATE 325 MG TAB PO SCH (08:25)
[2018-11-01] MEDS: PREGABALIN 75 MG CAP PO SCH ×2 (08:25→21:07)
[2018-11-01] MEDS: NICOTINE 14MG/24HR PATCH TRANSDERM SCH (08:25)
[2018-11-01] MEDS: OXYBUTYNIN XL 5 MG TAB.ER.24 PO SCH (08:25)
[2018-11-01] MEDS: TAMSULOSIN 0.4 MG CAP.ER.24H PO SCH (08:25)
[2018-11-01] MEDS: PIPERACILLIN-TAZOBACTAM 3.375 GM in SODIUM CHLORIDE 0.9% 100 ML IVPB SCH ×3 (08:26→23:37)
[2018-11-01] MEDS: HYDROcodone/APAP 5-325MG 1 EACH TAB PO PRN ×3 (08:26→23:37)
[2018-11-01] MEDS: NON-FORMULARY DRUG (Liraglutide [Victoza 2-Pak] 1.8 MG) SQ SCH (08:42)
--- NOTE | 2018-11-01 10:35 | P.PN ---
Subjective Progress Note Date: 11/01/18 This is a 58-year-old male patient of Dr. Whitlock. Patient presented with complaints of shortness of breath. Patient states that over the past 2 days he has Had increased sputum production and fever. Patient reports that approximately 6 days ago he underwent EGD to investigate anemia with Dr. Loraine huang. Patient denies any recent abdominal pain nausea or vomiting. Patient reports he has been having normal bowel movements. Patient has past medical history of COPD, CVA, diabetes mellitus, hyperlipidemia, hypertension, memory impairment, seizure disorder, PainPump, anemia, anxiety, depression, nicotine dependence. Patient also recently underwent balloon angioplasty of the left SFA and maintained on Plavix. Diffuse increased interstitial markings. No focal airspace disease. Large amount of gastric or bowel contents partially visualized. Abdominal x-ray completed showing stomach is massively distended with a large amount of food material. CT of abdomen and pelvis completed showing multifocal bilateral predominantly basal basilar airspace disease. Enlarged hilar or mediastinal lymph nodes are also present. Multifocal pneumonia is favored. Massively distended stomach dilation of the first second and third portions of the duodenum. No definitive transition point is identified at adjusting of focal obstruction. Splenomegaly. Chronic appearing infrarenal abdominal aortic dissection with a focal areas. Postsurgical changes of the spine. EKG completed showing sinus tachycardia. Chest x-ray completed showing basal atelectasis, correlate for pneumonia. Patient's mediastinal adeno he is not evident on plain film. Patient had temperature 104.5 on admission. UA negative. Blood negative. Group B strep negative. Sputum, blood and urine cultures ordered. Pulmonary service is consulted. Patient started on Rocephin and azithromycin. Surgical services also consulted. At this time patient's abdomen significantly distended. Patient states that this is normal for him and he is not complaining of any specific pain or discomfort. Patient denies nausea vomiting or diarrhea. Patient denies any chest pain. Patient denies any urinary burning or frequency On 11/01/2018 patient is alert and oriented 3. Abdomen was distended today. NG tube remains in place. Patient reports he had normal BM last night. Antibiotics Zosyn and azithromycin for possible aspiration pneumonia per pulmonary. Infectious disease also consulted. At this time patient denies chest pain. Patient does report cough but denies shortness of breath. Patient denies nausea vomiting or diarrhea. Patient denies any urinary burning or frequency Objective - Vital Signs Vital signs: Vital Signs Temp 97.7 F 11/01/18 08:00 Pulse 86 11/01/18 08:00 Resp 18 11/01/18 08:00 BP 141/81 11/01/18 08:00 Pulse Ox 92 L 11/01/18 08:00 Intake & Output 10/31/18 11/01/18 11/01/18 18:59 06:59 18:59 Intake Total 1240 100 Output Total 400 400 Balance 840 -300 Weight 98.5 kg Intake: Intake, IV Titration 800 100 Amount Piperacillin-Tazobactam 3 100 .375 gm In Sodium Chloride 0.9% 100 ml @ 25 mls/hr IVPB Q8HR [facility] Rx# :[id number] Sodium Chloride 0.9% 1, 800 000 ml @ 100 mls/hr IV . Q10H [facility] Rx#:[id number] Oral 440 Output: Gastric Drainage 400 400 Other: Voiding Method Toilet Urinal # Voids 2 # Bowel Movements 1 - Exam Head normocephalic Neck supple Lungs diminished bilaterally Heart regular rate and rhythm S1-S2, no rub or gallop Abdomen hard distended nontender abdomen Extremities no edema Neuro alert and orientated to 3 - Labs CBC & Chem 7: 11/01/18 06:22 11/01/18 06:22 Labs: Abnormal Lab Results - Last 24 Hours (Table) 10/31/18 10/31/18 10/31/18 Range/Units 08:43 08:43 12:03 RBC (4.30-5.90) m/uL Hgb (13.0-17.5) gm/dL Hct (39.0-53.0) % MCHC (31.0-37.0) g/dL RDW (11.5-15.5) % Plt Count (150-450) k/uL POC Glucose (mg/dL) 166 H (75-99) mg/dL Hemoglobin A1c 7.6 H (4.0-6.0) % Iron 28 L (65-175) ug/dL Iron Saturation 7.65 L (15.00-50.00) Albumin (3.5-5.0) g/dL 10/31/18 11/01/18 11/01/18 Range/Units 17:02 06:14 06:22 RBC 3.49 L (4.30-5.90) m/uL Hgb 10.2 L (13.0-17.5) gm/dL Hct 34.0 L (39.0-53.0) % MCHC 30.1 L (31.0-37.0) g/dL RDW 18.6 H (11.5-15.5) % Plt Count 142 L (150-450) k/uL POC Glucose (mg/dL) 106 H 113 H (75-99) mg/dL Hemoglobin A1c (4.0-6.0) % Iron (65-175) ug/dL Iron Saturation (15.00-50.00) Albumin (3.5-5.0) g/dL 11/01/18 Range/Units 06:22 RBC (4.30-5.90) m/uL Hgb (13.0-17.5) gm/dL Hct (39.0-53.0) % MCHC (31.0-37.0) g/dL RDW (11.5-15.5) % Plt Count (150-450) k/uL POC Glucose (mg/dL) (75-99) mg/dL Hemoglobin A1c (4.0-6.0) % Iron (65-175) ug/dL Iron Saturation (15.00-50.00) Albumin 3.4 L (3.5-5.0) g/dL Microbiology - Last 24 Hours (Table) 10/30/18 17:12 Group A Strep Throat Culture - Final Throat 10/31/18 12:54 Gram Stain - Preliminary Sputum Sputum Culture - Preliminary 10/30/18 18:47 Urine Culture - Final Urine,Voided 10/30/18 17:45 Blood Culture - Preliminary Blood No Growth after 24 hours Assessment and Plan Assessment: 1. Acute bilateral lower lobe pneumonia. CT of chest showing multifocal bilateral predominantly bibasilar airspace disease. Enlarged hilar or mediastinal lymph nodes are also present. Multifocal pneumonia is favored. Dr. gan has been consulted for pulmonary care. Patient had temperature 104.5 on admission. Blood urine and sputum cultures have been ordered. Per pulmonary services consider possible aspiration pneumonia post EGD. Patient currently on Zosyn and Zithromax. Infectious disease Consulted 2. Abdominal distention. CT of abdomen and pelvis completed showing massively distended stomach with dilation of the first, second and third portions of the duodenum. No definitive transition point is identified suggesting focal obstruction. Surgical services have been consulted. NG tube has been placed patient made nothing by mouth. Abdominal x-ray completed showing antritis, fecal stasis. 3. Recent EGD and colonoscopy with Dr. Santiago 6 days ago. Results showing antral gastritis, transverse colon polyp and mild diverticulosis 4. Recent balloon angioplasty to left SFA in July [address] Degroot. maintained on Plavix and aspirin 5. History of COPD 6. History of diabetes mellitus. Metformin on hold. Home meds resumed sliding scale coverage ordered. Hemoglobin A1c ordered. 7. History of hyperlipidemia 8. History of essential hypertension 9. Seizure disorder patient maintained on Keppra 10. History of chronic pain with pain pump 11. Nicotine dependence. Nicotine patch ordered 12. History of anxiety and depression 13. Infrarenal aortic dissection, stable. Dr. Vick consulted Plavix and aspirin currently on hold 14. Iron deficiency anemia. She recently underwent EGD and colonoscopy with Dr. Santiago. She maintained on ferrous sulfate. Hemoglobin 10.2 DVT prophylaxis SCDs to evaluate surgical services. GI prophylaxis Protonix I performed an examination of the patient and discussed their management with the Nurse Practitioner. I have reviewed the Nurse Practitioner's notes and agree with the documented findings and plan of care
[2018-11-01] MEDS: SODIUM CHLORIDE 0.9% 1,000 ML IV SCH ×3 (11:35→23:37)
[2018-11-01 12:07] LABS: Glucose,Whole Blood 96 mg/dL (75-99)
--- NOTE | 2018-11-01 12:09 | P.PN ---
Subjective Progress Note Date: 11/01/18 CHIEF COMPLAINT: Abnormal CT HISTORY OF PRESENT ILLNESS: Patient examined this morning at the bedside with Dr. Santiago. Patient denies abdominal pain. He denies nausea or vomiting. NG to LIS. Reports formed stool yesterday. PHYSICAL EXAM: VITAL SIGNS: Reviewed. GENERAL: Well-developed in no acute distress. HEENT: No sclera icterus. Extraocular movements grossly intact. Moist buccal mucosa. Head is atraumatic, normocephalic. ABDOMEN: Distended. Firm. No pain or tenderness with palpation. Positive bowel sounds. NEUROLOGIC: Alert and oriented. Cranial nerves II through XII grossly intact. ASSESSMENT: 1. Massively dilated stomach and duodenum with recent EGD and colonoscopy, possible focal obstruction with no transition point identified on CT, however patient asymptomatic and denies abdominal complaints PLAN: Patient to undergo upper GI with small bowel follow through. Await results. If normal, patient may have NG DC and begin clear liquids. Nurse practitioner note has been reviewed by physician. Signing provider agrees with the documented findings, assessment, and plan of care. Objective - Vital Signs Vital signs: Vital Signs Temp 98.3 F 11/01/18 11:46 Pulse 93 11/01/18 11:49 Resp 16 11/01/18 11:49 BP 149/79 11/01/18 11:46 Pulse Ox 91 L 11/01/18 11:46 Intake & Output 10/31/18 11/01/18 11/01/18 18:59 06:59 18:59 Intake Total 1240 100 Output Total 400 400 500 Balance 840 -300 -500 Weight 98.5 kg Intake: Intake, IV Titration 800 100 Amount Piperacillin-Tazobactam 3 100 .375 gm In Sodium Chloride 0.9% 100 ml @ 25 mls/hr IVPB Q8HR [facility] Rx# :[id number] Sodium Chloride 0.9% 1, 800 000 ml @ 100 mls/hr IV . Q10H [facility] Rx#:[id number] Oral 440 Output: Gastric Drainage 400 400 50 Urine 450 Other: Voiding Method Toilet Urinal # Voids 2 # Bowel Movements 1 - Labs CBC & Chem 7: 11/01/18 06:22 11/01/18 06:22 Labs: Abnormal Lab Results - Last 24 Hours (Table) 10/31/18 10/31/18 10/31/18 Range/Units 08:43 08:43 17:02 RBC (4.30-5.90) m/uL Hgb (13.0-17.5) gm/dL Hct (39.0-53.0) % MCHC (31.0-37.0) g/dL RDW (11.5-15.5) % Plt Count (150-450) k/uL POC Glucose (mg/dL) 106 H (75-99) mg/dL Hemoglobin A1c 7.6 H (4.0-6.0) % Iron 28 L (65-175) ug/dL Iron Saturation 7.65 L (15.00-50.00) Albumin (3.5-5.0) g/dL 11/01/18 11/01/18 11/01/18 Range/Units 06:14 06:22 06:22 RBC 3.49 L (4.30-5.90) m/uL Hgb 10.2 L (13.0-17.5) gm/dL Hct 34.0 L (39.0-53.0) % MCHC 30.1 L (31.0-37.0) g/dL RDW 18.6 H (11.5-15.5) % Plt Count 142 L (150-450) k/uL POC Glucose (mg/dL) 113 H (75-99) mg/dL Hemoglobin A1c (4.0-6.0) % Iron (65-175) ug/dL Iron Saturation (15.00-50.00) Albumin 3.4 L (3.5-5.0) g/dL Microbiology - Last 24 Hours (Table) 10/30/18 17:12 Group A Strep Throat Culture - Final Throat 10/31/18 12:54 Gram Stain - Preliminary Sputum Sputum Culture - Preliminary 10/30/18 18:47 Urine Culture - Final Urine,Voided 10/30/18 17:45 Blood Culture - Preliminary Blood No Growth after 24 hours
--- NOTE | 2018-11-01 12:13 | P.PN ---
Subjective Progress Note Date: 11/01/18 On today's evaluation of 11/01/2018, the patient is doing better compared to yesterday. NG tube is in place. Abdomen is morbidly flatus yet there is still tympany in the stomach region and in the left upper quadrant. No nausea. No vomiting. He did have a bowel movement yesterday. He is nothing by mouth for now. General surgeries on the case. Meanwhile, the patient is on a combination of antibiotics with Zithromax and Zosyn. He was able to give us a sputum sample. His cough is congested. No stiffness to distress. No fever or chills. The second is not elevated at 7.9. Rest of the blood work is all within normal limits. Hemoglobin is at 10.2. Objective - Vital Signs Vital signs: Vital Signs Temp 98.3 F 11/01/18 11:46 Pulse 93 11/01/18 11:49 Resp 16 11/01/18 11:49 BP 149/79 11/01/18 11:46 Pulse Ox 91 L 11/01/18 11:46 Intake & Output 10/31/18 11/01/18 11/01/18 18:59 06:59 18:59 Intake Total 1240 100 Output Total 400 400 500 Balance 840 -300 -500 Weight 98.5 kg Intake: Intake, IV Titration 800 100 Amount Piperacillin-Tazobactam 3 100 .375 gm In Sodium Chloride 0.9% 100 ml @ 25 mls/hr IVPB Q8HR [facility] Rx# :[id number] Sodium Chloride 0.9% 1, 800 000 ml @ 100 mls/hr IV . Q10H [facility] Rx#:[id number] Oral 440 Output: Gastric Drainage 400 400 50 Urine 450 Other: Voiding Method Toilet Urinal # Voids 2 # Bowel Movements 1 - Exam Gen. appearance, comfortable likely distress Head exam was generally normal. There was no scleral icterus or corneal arcus. Mucous membranes were moist. Neck was supple and without jugular venous distension, thyromegaly, or carotid bruits. Carotids were easily palpable bilaterally. There was no adenopathy. Lungs are diminished breath sounds bilaterally along with some bibasilar crackles. Cardiac exam revealed the PMI to be normally situated and sized. The rhythm was regular and no extrasystoles were noted during several minutes of auscultation. The first and second heart sounds were normal and physiologic splitting of the second heart sound was noted. There were no murmurs, rubs, clicks, or gallops. Abdominal exam revealed normal bowel sounds. The abdomen is slightly distended. There is tympany at the level of the stomach with umbilical hernia and a small ventral hernia which is easily reducible. There is no organomegaly, or appreciable enlargement of the abdominal aorta. Examination of the extremities revealed easily palpable radial, femoral and pedal pulses. There was no cyanosis, clubbing or edema. Examination of the skin revealed no evidence of significant rashes, suspicious appearing nevi or other concerning lesions. Neurologically awake and alert and there is no focal neurological deficit Psychiatric negative for anxiety or depression. - Labs CBC & Chem 7: 11/01/18 06:22 11/01/18 06:22 Labs: Abnormal Lab Results - Last 24 Hours (Table) 10/31/18 10/31/18 10/31/18 Range/Units 08:43 08:43 12:03 RBC (4.30-5.90) m/uL Hgb (13.0-17.5) gm/dL Hct (39.0-53.0) % MCHC (31.0-37.0) g/dL RDW (11.5-15.5) % Plt Count (150-450) k/uL POC Glucose (mg/dL) 166 H (75-99) mg/dL Hemoglobin A1c 7.6 H (4.0-6.0) % Iron 28 L (65-175) ug/dL Iron Saturation 7.65 L (15.00-50.00) Albumin (3.5-5.0) g/dL 10/31/18 11/01/18 11/01/18 Range/Units 17:02 06:14 06:22 RBC 3.49 L (4.30-5.90) m/uL Hgb 10.2 L (13.0-17.5) gm/dL Hct 34.0 L (39.0-53.0) % MCHC 30.1 L (31.0-37.0) g/dL RDW 18.6 H (11.5-15.5) % Plt Count 142 L (150-450) k/uL POC Glucose (mg/dL) 106 H 113 H (75-99) mg/dL Hemoglobin A1c (4.0-6.0) % Iron (65-175) ug/dL Iron Saturation (15.00-50.00) Albumin (3.5-5.0) g/dL 11/01/18 Range/Units 06:22 RBC (4.30-5.90) m/uL Hgb (13.0-17.5) gm/dL Hct (39.0-53.0) % MCHC (31.0-37.0) g/dL RDW (11.5-15.5) % Plt Count (150-450) k/uL POC Glucose (mg/dL) (75-99) mg/dL Hemoglobin A1c (4.0-6.0) % Iron (65-175) ug/dL Iron Saturation (15.00-50.00) Albumin 3.4 L (3.5-5.0) g/dL Microbiology - Last 24 Hours (Table) 10/30/18 17:12 Group A Strep Throat Culture - Final Throat 10/31/18 12:54 Gram Stain - Preliminary Sputum Sputum Culture - Preliminary 10/30/18 18:47 Urine Culture - Final Urine,Voided 10/30/18 17:45 Blood Culture - Preliminary Blood No Growth after 24 hours Assessment and Plan Plan: 1 acute bilateral lower lobe pneumonia left more than right with airspace disease and secondary shortness of breath. Consider aspiration pneumonia post endoscopy/EGD. Doing well and the patient is well covered with accommodation Zosyn and Zithromax. No signs of any worsening on clinical grounds. The abdomen was deflated and the patient has an NG tube in place regarding his c hronic and ongoing abdominal distention. 2 nonspecific enlarged hilar and based on lymph node, chronicity is not known, will need to be addressed at a later stage after clearing of the pneumonia 3 acute febrile illness secondary to above, recovered and the patient is currently afebrile. 4 chronic abdominal distention with a CAT scan of the abdomen and pelvis showing massive distention of the stomach and portions of the duodenum, general surgeries on the case and the patient has an NG tube in place. The patient also has a small umbilical hernia and ventral hernia which is easily reducible. On examination, the patient's abdomen is less distended compared to yesterday. NG tube is in place. He did have a bowel movement yesterday. General surgeries on the case. 5 COPD 6 peripheral vascular disease with previous angioplasty of the left SFA 7 diabetes mellitus 8 infrarenal aortic dissection, stable 9 hypertension 10 hyperlipidemia 11 seizure disorder on Keppra 12 history of chronic back pain currently on a pain pump 13 nicotine dependence 14 colonic diverticulosis Plan Suspect aspiration pneumonia. Cover the patient with a combination of Zosyn and Zithromax. Surgery to follow-up on the abdominal findings. We'll continue to follow.
--- NOTE | 2018-11-01 16:15 | FL ---
EXAMINATION TYPE: FL UGI w esophagus w sm bowel DATE OF EXAM: 11/01/2018 COMPARISON: CT scan 10/30/2018 HISTORY: Abdominal distention TECHNIQUE: A angle contrast contrast UGI study is performed with small bowel follow through. FINDINGS: [employer] image of the abdomen shows no gross abnormality. There is an NG tube within the esophagus which limits the exam for assessment esophagus. Postsurgical changes involving the vertebral column are noted and there is a metallic device overlying the left i liac wing. NG tube noted. Degenerative changes spine. Extensive retained fecal debris overlying the c olon. No evidence of obstruction involving the esophagus. Contrast passed freely into the stomach without o bstruction. Assessment the stomach demonstrated nondistended stomach. Single contrast imaging demonst rated no filling defect. There is prompt emptying into the small bowel. Patient difficulty with positioning duodenal fall was somewhat limited. Be grossly of normal morpholo gy. The duodenal sweep have a normal morphology and pattern. There was a dilation of small bowel loop s to the level the distal ileum. Patient had difficulty positioning. There was a somewhat reduced charla iber of the very distal margin of the ilium relative to the mid and distal ileum. However, definite t ransition point is seen. Contrast emptied into the colon at 2 hours compatible with delayed emptying. IMPRESSION: 1. Delayed filling of the colon and emptying of the small bowel with persistent dilated small bowel l oops to the level the distal ileum. Partial obstruction in the differential diagnosis. Correlate clin ically.
[2018-11-01 17:04] LABS: Glucose,Whole Blood 84 mg/dL (75-99)
[2018-11-01 20:58] LABS: Glucose,Whole Blood 175 mg/dL (75-99)
--- NOTE | 2018-11-01 23:27 | P.CONS ---
History of Present Illness - Reason for Consult Consult date: 11/01/18 - Chief Complaint Progressive dyspnea - History of Present Illness 58-year-old male presents to Hospital with concerns to worsening dyspnea especially with exertion over several days before presentation. The patient was having gastrointestinal difficulties and was evaluated in the outp atient setting and underwent EGD without evidence of acute disease. Colonoscopy was performed but there was a poor prep. The patient had a marked worsening of his respiratory status in counseling presents to the emergency center at that point and there was evidence of extensive swelling to the stomach and the duodenum. The patient has been evaluation by the surgeon. The patient's computed tomography scan reveal evidence of a multifocal pneumonia this is considerably worse the last time he was examined. Also notation of splenomegaly. Concerns to the sepsis and pneumonia the infectious diseases consultation was requested Review of Systems HEENT:Denies headache or acute visual change. Denies sinus or mouth discomforts. Denies neck stiffness or pain. Denies significant oral cavity pain. Denies difficulty on swallowing. Lungs: Progressive shortness of breath some cough no sputum production no hemoptysis Cardiovascular: Denies chest pain but has progressive shortness of breath orthopnea and dyspnea on exertion no syncope Gastrointestinal:Denies nausea, vomiting, diarrhea, constipation, hematemesis, melena, hematochezia. No no significant change of bowel habit noticed. Musculoskeletal: denies significant myalgias or arthralgias. No new joint s welling. Denies new back pain. Skin: Denies new rash or lesions. No new ulcers or wounds are related.. Neuro: Denies headache or visual change. Denies any new onset weakness or difficulty with ambulation. Denies falls or seizures. Psychiatric: Has anxiety when he short of breath Endocrine: Very fatigued and has weight gain Past Medical History Past Medical History: COPD, CVA/TIA, Diabetes Mellitus, Hyperlipidemia, Hypertension, Memory Impairment, Seizure Disorder, Skin Disorder Additional Past Medical History / Comment(s): pain pump in back, anemia. History of Any Multi-Drug Resistant Organisms: None Reported Past Surgical History: Appendectomy, Back Surgery, Orthopedic Surgery Additional Past Surgical History / Comment(s): titanium shaft in lt leg, skin graph to rt 1st and middle finger, lt eardum replaced, cyrus. foot surgery to arch Past Anesthesia/Blood Transfusion Reactions: No Reported Reaction Past Psychological History: Anxiety, Depression Smoking Status: Current every day smoker Past Alcohol Use History: None Reported Additional Past Alcohol Use History / Comment(s): 1-2ppd Past Drug Use History: None Reported - Past Family History Brother(s) Family Medical History: No Reported History Mother Family Medical History: COPD, Diabetes Mellitus Medications and Allergies Home Medications and Allergies Comment(s): Current Medications Acetaminophen (Tylenol Tab) 650 mg PO Q6HR PRN PRN Reason: Fever and/ or Pain Hydrocodone Bitart/Acetaminophen (Empire 5-325) 1 each PO TID PRN PRN Reason: Pain Last Admin: 11/01/18 16:04 Dose: 1 each Documented by: Albuterol/Ipratropium (Duoneb 0.5 Mg-3 Mg/3 Ml Soln) 3 ml INHALATION RT-QID [facility] Last Admin: 11/01/18 20:28 Dose: 3 ml Documented by: Albuterol/Ipratropium (Duoneb 0.5 Mg-3 Mg/3 Ml Soln) 3 ml INHALATION RT-Q2H PRN PRN Reason: Shortness Of Breath Or Wheezing Aspirin (Aspirin) 81 mg PO DAILY [facility] Last Admin: 11/01/18 08:24 Dose: 81 mg Documented by: Azithromycin (Zithromax) 500 mg PO DAILY [facility] Last Admin: 11/01/18 08:24 Dose: 500 mg Documented by: Cyclobenzaprine HCl (Flexeril) 5 mg PO TID [facility] Last Admin: 11/01/18 21:07 Dose: 5 mg Documented by: Ferrous Sulfate (Feosol) 325 mg PO DAILY@1200 [facility] Last Admin: 11/01/18 08:25 Dose: 325 mg Documented by: Folic Acid (Folic Acid) 1 mg PO DAILY@1200 [facility] Last Admin: 11/01/18 08:24 Dose: 1 mg Documented by: Furosemide (Lasix) 20 mg PO DAILY [facility] Last Admin: 11/01/18 08:25 Dose: 20 mg Documented by: Sodium Chloride (Saline 0.9%) 1,000 mls @ 100 mls/hr IV .Q10H [facility] Last Admin: 11/01/18 12:57 Dose: Not Given Documented by: Piperacillin Sod/Tazobactam (Sod 3.375 gm/ Sodium Chloride) 100 mls @ 25 mls/hr IVPB Q8HR [facility] Last Admin: 11/01/18 16:03 Dose: 25 mls/hr Documented by: Insulin Aspart (Novolog) 0 unit SQ ACHS [facility]; Protocol Last Admin: 11/01/18 21:07 Dose: 2 unit Documented by: Insulin Detemir (Levemir) 57 unit SQ DAILY [facility] Last Admin: 11/01/18 08:24 Dose: 57 unit Documented by: Levetiracetam (Keppra) 1,000 mg PO Q12HR [facility] Last Admin: 11/01/18 21:06 Dose: 1,000 mg Documented by: Lisinopril (Zestril) 5 mg PO DAILY [facility] Last Admin: 11/01/18 08:24 Dose: 5 mg Documented by: Magnesium Oxide (Mag-Ox) 400 mg PO BID [facility] Last Admin: 11/01/18 21:07 Dose: 400 mg Documented by: Miscellaneous Information (Pneumonia Protocol Utilized) 1 each PO ONCE PRN PRN Reason: Per Protocol Multivitamins (Theragran) 1 each PO DAILY@1200 [facility] Last Admin: 11/01/18 08:24 Dose: 1 each Documented by: Nicotine (Habitrol 14mg/24hr Patch) 1 patch TRANSDERM DAILY [facility] Last Admin: 11/01/18 08:25 Dose: Not Given Documented by: Non-Formulary Medication (Liraglutide [Victoza 2-Selvin]) 1.8 mg SQ DAILY [facility] Last Admin: 11/01/18 08:42 Dose: Not Given Documented by: Ondansetron HCl (Zofran) 8 mg PO Q6H PRN PRN Reason: Nausea Oxybutynin Chloride (Ditropan Xl) 5 mg PO DAILY [facility] Last Admin: 11/01/18 08:25 Dose: 5 mg Documented by: Pantoprazole Sodium (Protonix) 40 mg IVP DAILY [facility] Last Admin: 11/01/18 08:25 Dose: 40 mg Documented by: Paroxetine HCl (Paxil) 20 mg PO DAILY [facility] Last Admin: 11/01/18 08:25 Dose: 20 mg Documented by: Pregabalin (Lyrica) 150 mg PO BID [facility] Last Admin: 11/01/18 21:07 Dose: 150 mg Documented by: Sertraline HCl (Zoloft) 100 mg PO DAILY [facility] Last Admin: 11/01/18 08:24 Dose: 100 mg Documented by: Simethicone (Mylicon Chew) 80 mg PO TID PRN PRN Reason: Indigestion Tamsulosin HCl (Flomax) 0.4 mg PO DAILY [facility] Last Admin: 11/01/18 08:25 Dose: 0.4 mg Documented by: Home Medications Medication Instructions Recorded Confirmed Type Aspirin [Adult Low Dose Aspirin EC] 81 mg PO DAILY 08/28/15 10/30/18 History Clopidogrel [Plavix] 75 mg PO DAILY 08/28/15 10/30/18 History Folic Acid 1 mg PO DAILY 08/28/15 10/30/18 History Lisinopril [Prinivil] 5 mg PO DAILY 08/28/15 10/30/18 History Multivitamins, Thera [Multivitamin 1 tab PO DAILY 08/28/15 10/30/18 History (formulary)] PARoxetine [Paxil] 20 mg PO DAILY 08/28/15 10/31/18 History Albuterol Inhaler [Ventolin Hfa 1 - 2 puff INHALATION RT-Q6H PRN 07/19/18 10/30/18 History Inhaler] Furosemide [Lasix] 20 mg PO DAILY 07/19/18 10/30/18 History Insulin Glargine,Hum.rec.anlog 57 unit SQ DAILY 07/19/18 10/30/18 History [Basaglar Kwikpen U-100] Insulin Lispro [Admelog] 9 unit SQ AC-TID 07/19/18 10/30/18 History Liraglutide [Victoza 2-Selvin] 1.8 mg SQ DAILY 07/19/18 10/30/18 History Pregabalin [Lyrica] 150 mg PO BID 07/20/18 10/30/18 History levETIRAcetam [Keppra] 1,000 mg PO Q12HR 07/20/18 10/30/18 History Atorvastatin Calcium [Lipitor] 80 mg PO DAILY 10/20/18 10/30/18 History Ferrous Sulfate [Feosol] 325 mg PO DAILY 10/20/18 10/30/18 History HYDROcodone/APAP 5-325MG [Empire 1 tab PO TID PRN 10/20/18 10/30/18 History 5-325] Ondansetron HCl [Zofran] 8 mg PO Q6H PRN 10/20/18 10/30/18 History Tamsulosin [Flomax] 0.4 mg PO DAILY 10/20/18 10/30/18 History metFORMIN HCL 1,000 mg PO BID 10/20/18 10/30/18 History Albuterol Nebulized [Ventolin 2.5 mg INHALATION RT-BID 10/30/18 10/30/18 History Nebulized] Cyclobenzaprine [Flexeril] 5 mg PO TID 10/30/18 10/30/18 History Ibuprofen [Motrin] 600 mg PO TID PRN 10/30/18 10/30/18 History Insulin Lispro [Admelog] See Protocol SQ AC-TID 10/30/18 10/30/18 History Magnesium Oxide [Mag-Ox] 250 mg PO BID 10/30/18 10/30/18 History Oxybutynin Xl [Ditropan Xl] 5 mg PO DAILY 10/30/18 10/30/18 History Sertraline [Zoloft] 100 mg PO DAILY 10/30/18 10/30/18 History Simethicone [Gas-X] 125 mg PO TID PRN 10/30/18 10/30/18 History Allergies Allergy/AdvReac Type Severity Reaction Status Date / Time morphine AdvReac Nausea & Verified 10/30/18 17:01 Vomiting Physical Exam Vitals: Vital Signs Temp Pulse Pulse Resp BP Pulse Ox 11/01/18 20:39 90 11/01/18 20:28 89 11/01/18 17:03 90 11/01/18 16:52 89 91 L 11/01/18 16:00 98.4 F 87 18 148/74 90 L 11/01/18 11:49 93 16 11/01/18 11:46 98.3 F 85 20 149/79 91 L 11/01/18 11:38 93 16 11/01/18 08:00 97.7 F 86 18 141/81 92 L 11/01/18 07:47 86 11/01/18 07:38 92 92 L 11/01/18 05:15 98.2 F 77 15 128/71 93 L Intake and Output 11/01/18 11/01/18 11/02/18 14:59 22:59 06:59 Intake Total 780 Output Total 500 450 Balance -500 330 Intake: Oral 780 Output: Gastric Drainage 50 Urine 450 450 58-year-old male who appears older than his stated age relates that he is less short of breath and he was HEENT: Anicteric conjunctiva are pink and moist nasal mucosa grossly intact without significant lesions, there is no thrush. Neck: The neck is supple without significant lymphadenopathy or thyromegaly. Lungs: Symmetrical air entry is noted basilar crackles expiratory wheezes no bronchial sounds Heart: Irregular with an audible S1 and S2 soft S4 2/6 systolic murmur left sternal border. Abdomen: Obese, distended, tympanic, no palpable fluid Positive bowel sounds soft and nontender without palpable masses or organomegaly. There was no guarding or rebound. Extremities: The upper extremities have excellent pulses they are symmetric, no significant petechiae or telangiectasia. No splinter hemorrhages were noted. T he lower extremities are free from significant edema. The peripheral pulses were 2+ and symmetric. Neuro: Awake alert oriented to person place and time. There are no acute new gross focal sensory motor deficits. Results CBC & Chem 7: 11/01/18 06:22 11/01/18 06:22 Labs: Abnormal Lab Results - Last 24 Hours (Table) 11/01/18 11/01/18 11/01/18 Range/Units 06:14 06:22 06:22 RBC 3.49 L (4.30-5.90) m/uL Hgb 10.2 L (13.0-17.5) gm/dL Hct 34.0 L (39.0-53.0) % MCHC 30.1 L (31.0-37.0) g/dL RDW 18.6 H (11.5-15.5) % Plt Count 142 L (150-450) k/uL POC Glucose (mg/dL) 113 H (75-99) mg/dL Albumin 3.4 L (3.5-5.0) g/dL 11/01/18 Range/Units 20:58 RBC (4.30-5.90) m/uL Hgb (13.0-17.5) gm/dL Hct (39.0-53.0) % MCHC (31.0-37.0) g/dL RDW (11.5-15.5) % Plt Count (150-450) k/uL POC Glucose (mg/dL) 175 H (75-99) mg/dL Albumin (3.5-5.0) g/dL Microbiology - Last 24 Hours (Table) 10/30/18 17:45 Blood Culture - Preliminary Blood No Growth after 48 hours 10/30/18 17:12 Group A Strep Throat Culture - Final Throat 10/31/18 12:54 Gram Stain - Preliminary Sputum Sputum Culture - Preliminary 10/30/18 18:47 Urine Culture - Final Urine,Voided Laboratory Results WBC 7.9 k/uL (3.8-10.6) 11/01/18 06:22 RBC 3.49 m/uL (4.30-5.90) L 11/01/18 06:22 Hgb 10.2 gm/dL (13.0-17.5) L 11/01/18 06:22 Hct 34.0 % (39.0-53.0) L 11/01/18 06:22 MCV 97.3 fL (80.0-100.0) 11/01/18 06:22 MCH 29.3 pg (25.0-35.0) 11/01/18 06:22 MCHC 30.1 g/dL (31.0-37.0) L 11/01/18 06:22 RDW 18.6 % (11.5-15.5) H 11/01/18 06:22 Plt Count 142 k/uL (150-450) L 11/01/18 06:22 Neutrophils % 73 % 11/01/18 06:22 Neutrophils % (Manual) 64 % 10/31/18 08:43 Band Neutrophils % 2 % 10/31/18 08:43 Lymphocytes % 15 % 11/01/18 06:22 Lymphocytes % (Manual) 21 % 10/31/18 08:43 Monocytes % 6 % 11/01/18 06:22 Monocytes % (Manual) 10 % 10/31/18 08:43 Eosinophils % 3 % 11/01/18 06:22 Eosinophils % (Manual) 3 % 10/31/18 08:43 Basophils % 0 % 11/01/18 06:22 Neutrophils # 5.8 k/uL (1.3-7.7) 11/01/18 06:22 Neutrophils # (Manual) 5.50 k/uL (1.3-7.7) 10/31/18 08:43 Lymphocytes # 1.2 k/uL (1.0-4.8) 11/01/18 06:22 Lymphocytes # (Manual) 1.76 k/uL (1.0-4.8) 10/31/18 08:43 Monocytes # 0.5 k/uL (0-1.0) 11/01/18 06:22 Monocytes # (Manual) 0.84 k/uL (0-1.0) 10/31/18 08:43 Eosinophils # 0.2 k/uL (0-0.7) 11/01/18 06:22 Eosinophils # (Manual) 0.25 k/uL (0-0.7) 10/31/18 08:43 Basophils # 0.0 k/uL (0-0.2) 11/01/18 06:22 Nucleated RBCs 0 /100 WBC (0-0) 10/31/18 08:43 Manual Slide Review Performed 10/31/18 08:43 Hypochromasia Moderate 11/01/18 06:22 Anisocytosis Slight 11/01/18 06:22 Macrocytosis Slight 11/01/18 06:22 PT 10.1 sec (9.0-12.0) 10/30/18 17:00 INR 0.9 (<1.2) 10/30/18 17:00 APTT 22.1 sec (22.0-30.0) 10/30/18 17:00 Sodium 138 mmol/L (137-145) 11/01/18 06:22 Potassium 4.9 mmol/L (3.5-5.1) 11/01/18 06:22 Chloride 105 mmol/L (98-107) 11/01/18 06:22 Carbon Dioxide 29 mmol/L (22-30) 11/01/18 06:22 Anion Gap 4 mmol/L 11/01/18 06:22 BUN 10 mg/dL (9-20) 11/01/18 06:22 Creatinine 0.67 mg/dL (0.66-1.25) 11/01/18 06:22 Est GFR (CKD-EPI)AfAm >90 (>60 ml/min/1.73 sqM) 11/01/18 06:22 Est GFR (CKD-EPI)NonAf >90 (>60 ml/min/1.73 sqM) 11/01/18 06:22 Glucose 99 mg/dL (74-99) 11/01/18 06:22 POC Glucose (mg/dL) 175 mg/dL (75-99) H 11/01/18 20:58 POC Glu Manager Air ID Renea Duarte 11/01/18 20:[address] Glu mg/dL 171 10/31/18 08:43 Hemoglobin A1c 7.6 % (4.0-6.0) H 10/31/18 08:43 Plasma Lactic Acid [place] 2.0 mmol/L (0.7-2.0) 10/30/18 17:00 Calcium 8.7 mg/dL (8.4-10.2) 11/01/18 06:22 Iron 28 ug/dL (65-175) L 10/31/18 08:43 TIBC 366 ug/dL (228-460) 10/31/18 08:43 Iron Saturation 7.65 (15.00-50.00) L 10/31/18 08:43 Ferritin 48.9 ng/mL (22.0-322.0) 10/31/18 08:43 Total Bilirubin 0.4 mg/dL (0.2-1.3) 11/01/18 06:22 AST 32 U/L (17-59) 11/01/18 06:22 ALT 27 U/L (21-72) 11/01/18 06:22 Alkaline Phosphatase 101 U/L (38-126) 11/01/18 06:22 Troponin I <0.012 ng/mL (0.000-0.034) 10/30/18 17:00 Total Protein 7.1 g/dL (6.3-8.2) 11/01/18 06:22 Albumin 3.4 g/dL (3.5-5.0) L 11/01/18 06:22 Amylase 44 U/L (30-110) 10/31/18 08:43 Lipase 62 U/L (23-300) 10/31/18 08:43 Urine Color Yellow 10/30/18 18:47 Urine Appearance Clear (Clear) 10/30/18 18:47 Urine pH 5.0 (5.0-8.0) 10/30/18 18:47 Ur Specific [place] 1.014 (1.001-1.035) 10/30/18 18:47 Urine Protein Negative (Negative) 10/30/18 18:47 Urine Glucose (UA) Negative (Negative) 10/30/18 18:47 Urine Ketones Negative (Negative) 10/30/18 18:47 Urine Blood Negative (Negative) 10/30/18 18:47 Urine Nitrite Negative (Negative) 10/30/18 18:47 Urine Bilirubin Negative (Negative) 10/30/18 18:47 Urine Urobilinogen <2.0 mg/dL (<2.0) 10/30/18 18:47 Ur Leukocyte Esterase Negative (Negative) 10/30/18 18:47 Heterophile Antibody Negative (Negative) 10/31/18 08:43 Influenza Type A RNA Not Detected (Not Detectd) 10/30/18 17:00 Influenza Type B (PCR) Not Detected (Not Detectd) 10/30/18 17:00 Group A Strep Rapid Negative (Negative) 10/30/18 17:12 Microbiology Entire Visit 10/30/18 17:45 Blood Blood Culture - Preliminary No Growth after 48 hours 10/30/18 17:12 Throat Group A Strep Throat Culture - Final 10/31/18 12:54 Sputum Gram Stain - Preliminary 10/31/18 12:54 Sputum Sputum Culture - Preliminary 10/30/18 18:47 Urine,Voided Urine Culture - Final CT scan - chest: report reviewed (Multifocal infiltrates) Assessment and Plan (1) Pneumonia Narrative/Plan: 58-year-old male with multiple medical illnesses presents to hospital with progressive shortness of breath. An attempt his evaluation there is evidence of multifocal pneumonia. He does have recent history of endoscopy and is evidence of extensive swelling of stomach and duodenum. The patient's significant other is present and he does have multiple bouts of emesis that occurred. It is highly likely the patient has aspiration pneumonia is etiology of his pneumonia and antibiotic therapy has been transitioned to Zosyn for adequate coverage. It is noted that there is splenomegaly this is of unknown significance at this point in time. The patient's fever has improved and 100.5 today. An EBV titer was performed that is negative Deyvi mononucleosis unlikely. There are many potential etiologies for splenomegaly and as he has improvement of his underlying infection this will be monitored. Surgery is following given the significant gastric distention. No evidence of free air at this time. Current Visit: Yes Status: Acute Code(s): J18.9 - PNEUMONIA, UNSPECIFIED ORGANISM SNOMED Code(s): 631918616 (2) Ileus Current Visit: Yes Status: Acute Code(s): K56.7 - ILEUS, UNSPECIFIED SNOMED Code(s): 107091549 (3) Splenomegaly Current Visit: Yes Status: Acute Code(s): R16.1 - SPLENOMEGALY, NOT ELSEWHERE CLASSIFIED SNOMED Code(s): 22431479
[2018-11-02 06:14] LABS: Anisocytosis Slight; Basophils % (A) 0 %; Eosinophils # (A) 0.1 k/uL (0-0.7); Eosinophils % (A) 1 %; HCT 33.7 % (39.0-53.0); HGB 10.5 gm/dL (13.0-17.5); Hypochromasia Slight; Lymphocytes # (A) 1.2 k/uL (1.0-4.8); Lymphocytes % (A) 14 %; MCH 29.6 pg (25.0-35.0); MCHC 31.1 g/dL (31.0-37.0); MCV 95.1 fL (80.0-100.0); Macrocytosis Slight; Mean Platelet Volume 7.3; Monocytes # (A) 0.5 k/uL (0-1.0); Monocytes % (A) 6 %; Neutrophils % (A) 77 %; Platelet Count 134 k/uL (150-450); RBC 3.54 m/uL (4.30-5.90)
[2018-11-02 06:17] LABS: Glucose,Whole Blood 94 mg/dL (75-99)
[2018-11-02 06:19] LABS: ALT 28 U/L (21-72); AST 31 U/L (17-59); Albumin 3.5 g/dL (3.5-5.0); Alkaline Phosphatase 101 U/L (38-126); Anion Gap 7 mmol/L; Blood Urea Nitrogen 8 mg/dL (9-20); Calcium 8.8 mg/dL (8.4-10.2); Carbon Dioxide 30 mmol/L (22-30); Chloride 101 mmol/L (98-107); Glucose 103 mg/dL (74-99); Potassium 4.9 mmol/L (3.5-5.1); Sodium 138 mmol/L (137-145); Total Bilirubin 0.8 mg/dL (0.2-1.3); Total Protein 7.3 g/dL (6.3-8.2)
[2018-11-02] MEDS: INSULIN ASPART (NovoLOG) 100 UNIT/ML VIAL SQ SCH ×4 (06:22→21:36)
--- NOTE | 2018-11-02 07:55 | CONS ---
DATE OF CONSULTATION: 11/01/2018 This is a 58-year-old gentleman who has been admitted to the hospital with history of shortness of breath and cough for the last few days he has been having fever and sputum production. No history of diarrhea, vomiting. The patient had a history of peripheral vascular disease. Patient had a left SFA balloon angioplasty with the patient is on antiplatelet therapy. The patient had a CT of the abdomen which showed a massive distended stomach and the first part of the duodenum. The patient is scheduled to go for upper GI follow-through. MEDICAL HISTORY: History of COPD, history of diabetes mellitus, history of hyperlipidemia, essential hypertension, history of seizure disorder, and history of chronic pain. I was consulted for a CT finding, which was incidental. The patient has a infrarenal abdominal aortic aneurysm 3.6 cm with chronic dissection. At this point, patient is stable from abdominal aortic aneurysm. We will watch very closely and when patient is discharged from the hospital, we will follow up in office in about a month. In the mean time, the patient is scheduled to be seen by Surgery for abdominal distention and going for a GI workup. MMODL / IJN: [id number] / MTDD
[2018-11-02] MEDS: IPRATROPIUM-ALBUTEROL 3 ML NEB INHALATION SCH ×4 (08:35→19:15)
[2018-11-02] MEDS: levETIRAcetam 500 MG TAB PO SCH ×2 (09:06→21:46)
[2018-11-02] MEDS: PANTOPRAZOLE 40 MG/10 ML VIAL IVP SCH (09:06)
[2018-11-02] MEDS: PREGABALIN 75 MG CAP PO SCH ×2 (09:06→21:46)
[2018-11-02] MEDS: PARoxetine 20 MG TAB PO SCH (09:06)
[2018-11-02] MEDS: AZITHROMYCIN 500 MG TAB PO SCH (09:06)
[2018-11-02] MEDS: NICOTINE 14MG/24HR PATCH TRANSDERM SCH ×2 (09:06→09:29)
[2018-11-02] MEDS: INSULIN DETEMIR (LEVEMIR) 100 UNIT/ML SYR SQ SCH (09:06)
[2018-11-02] MEDS: LISINOPRIL 5 MG TAB PO SCH (09:07)
[2018-11-02] MEDS: CYCLOBENZAPRINE 5 MG TAB PO SCH ×3 (09:07→21:46)
[2018-11-02] MEDS: FUROSEMIDE 20 MG TAB PO SCH (09:07)
[2018-11-02] MEDS: PIPERACILLIN-TAZOBACTAM 3.375 GM in SODIUM CHLORIDE 0.9% 100 ML IVPB SCH ×2 (09:07→15:12)
[2018-11-02] MEDS: SERTRALINE 100 MG TAB PO SCH (09:07)
[2018-11-02] MEDS: ASPIRIN 81 MG PO SCH (09:07)
[2018-11-02] MEDS: MAGNESIUM OXIDE 400 MG TAB PO SCH ×2 (09:07→21:46)
[2018-11-02] MEDS: TAMSULOSIN 0.4 MG CAP.ER.24H PO SCH (09:07)
[2018-11-02] MEDS: OXYBUTYNIN XL 5 MG TAB.ER.24 PO SCH (09:07)
[2018-11-02] MEDS: NON-FORMULARY DRUG (Liraglutide [Victoza 2-Pak] 1.8 MG) SQ SCH (09:22)
[2018-11-02] MEDS: HYDROcodone/APAP 5-325MG 1 EACH TAB PO PRN (09:34)
--- NOTE | 2018-11-02 09:36 | CDI ---
Documentation Clarification Form Date: 11/02/2018 9:05:18 AM From: Nina Paulson RN, CCDS Admit Date: 10/30/2018 8:12:00 PM Patient Name: Sukh Zamarripa Visit Number: [id number] Discharge Date: ATTENTION: The Clinical Documentation Specialists (CDI) and [facility] Coding Staff appreciate your assistance in clarifying documentation. Please respond to the clarification below the line at the bottom and electronically sign. The CDI & [facility] Coding staff will review the response and follow-up if needed. Please note: Queries are made part of the Legal Health Record. If you have any questions, please contact the author of this message via ITS. Dr. Sevilla The patient presented with fever and progressive shortness of breath. History/Risk Factors: COPD, DM, CVA, Seizure Disorder Clinical Indicators: 58-year-old male with complaints of productive cough and fever. Patient reports that he had a EGD performed 6 days age. Vital signs on admission: 150/70 105 20 104.5, 90 % 3/L NC, WBC 4.9 Lactic acid: 2.0 Blood cultures: Pending, No growth after 48 hours Chest x-ray suggestive of multifocal pneumonia Abdominal x-ray: massively distended stomach with large amount of food material. Treatment: ID Consult: Concerns to the sepsis and pneumonia the infectious disease consults was requested. Highly likely the patient has aspiration pneumonia. Antibiotics: Zosyn IV, Zithromax PO Duoneb's per orders IV Fluid In your professional opinion, please clarify if these findings signify one of the following conditions, whether the condition is POA, and cause, if known: Condition Sepsis ruled out Sepsis ruled in Other, please specify Unable to determine Link or clarify if there is associated (due to/with): SIRS Criteria (2 or more of the following may indicate SIRS): -Temperature < 96.8F (36C) or > 101.0F (38.3C) -Heart Rate > 90 bpm -Respiratory Rate > 20 breaths/min or PaCO2 < 32 mmHg -White Blood Cell Count > 12,000 or < 4,000 cells/mm3 or > 10% bands -Lactate >2.0 mmol/L (>4.0 is equivalent to septic shock) (Last Revision: September 2017) sepsis ruled in present on admission MTDD
--- NOTE | 2018-11-02 10:13 | P.CONS ---
History of Present Illness - Reason for Consult Consult date: 11/02/18 Splenomegaly Requesting physician: Trena Walls - Chief Complaint Difficulty in breathing - History of Present Illness Mr. Zamarripa is a pleasant 58-year-old male with a history of COPD, CVA and diabetes mellitus who is admitted for fever, vomiting, shortness of breath and purulent sputum production 6 days. Patient had a recent EGD and colonoscopy for gastrointestinal complaints, this showed some gastritis, tubular adenoma, colonoscopy was a poor prep. Patient had a CT of the chest abdomen and pelvis on admission showing enlarged hilar adenopathy, mediastinal adenopathy, massively dilated stomach and duodenum with splenomegaly. Patient is being seen by infectious disease for multifocal pneumonia, pulmonary for COPD, respiratory complaints, vascular for abdominal aortic aneurysm and surgeon has evaluated him, currently nothing by mouth, upper GI showed a partial obstruction, no discussion of surgery planned in notes currently. Patient denies any weight loss, no history of known splenomegaly, liver disease, patient states he never drank much but states "quit drinking 8 years ago", denies difficulty or pain with swallowing, hematocrit emesis, hematuria, diarrhea or constipation, black or bloody stool. Review of Systems 14 point review of systems is negative except as stated in HPI Past Medical History Past Medical History: COPD, CVA/TIA, Diabetes Mellitus, Hyperlipidemia, Hypertension, Memory Impairment, Seizure Disorder, Skin Disorder Additional Past Medical History / Comment(s): pain pump in back, anemia. History of Any Multi-Drug Resistant Organisms: None Reported Past Surgical History: Appendectomy, Back Surgery, Orthopedic Surgery Additional Past Surgical History / Comment(s): titanium shaft in lt leg, skin graph to rt 1st and middle finger, lt eardum replaced, cyrus. foot surgery to arch Past Anesthesia/Blood Transfusion Reactions: No Reported Reaction Past Psychological History: Anxiety, Depression Smoking Status: Current every day smoker Past Alcohol Use History: None Reported Additional Past Alcohol Use History / Comment(s): 1-2ppd Past Drug Use History: None Reported - Past Family History Brother(s) Family Medical History: No Reported History Mother Family Medical History: COPD, Diabetes Mellitus Medications and Allergies Home Medications Medication Instructions Recorded Confirmed Type Aspirin [Adult Low Dose Aspirin EC] 81 mg PO DAILY 08/28/15 10/30/18 History Clopidogrel [Plavix] 75 mg PO DAILY 08/28/15 10/30/18 History Folic Acid 1 mg PO DAILY 08/28/15 10/30/18 History Lisinopril [Prinivil] 5 mg PO DAILY 08/28/15 10/30/18 History Multivitamins, Thera [Multivitamin 1 tab PO DAILY 08/28/15 10/30/18 History (formulary)] PARoxetine [Paxil] 20 mg PO DAILY 08/28/15 10/31/18 History Albuterol Inhaler [Ventolin Hfa 1 - 2 puff INHALATION RT-Q6H PRN 07/19/18 10/30/18 History Inhaler] Furosemide [Lasix] 20 mg PO DAILY 07/19/18 10/30/18 History Insulin Glargine,Hum.rec.anlog 57 unit SQ DAILY 07/19/18 10/30/18 History [Basaglar Kwikpen U-100] Insulin Lispro [Admelog] 9 unit SQ AC-TID 07/19/18 10/30/18 History Liraglutide [Victoza 2-Selvin] 1.8 mg SQ DAILY 07/19/18 10/30/18 History Pregabalin [Lyrica] 150 mg PO BID 07/20/18 10/30/18 History levETIRAcetam [Keppra] 1,000 mg PO Q12HR 07/20/18 10/30/18 History Atorvastatin Calcium [Lipitor] 80 mg PO DAILY 10/20/18 10/30/18 History Ferrous Sulfate [Feosol] 325 mg PO DAILY 10/20/18 10/30/18 History HYDROcodone/APAP 5-325MG [[place] 1 tab PO TID PRN 10/20/18 10/30/18 History 5-325] Ondansetron HCl [Zofran] 8 mg PO Q6H PRN 10/20/18 10/30/18 History Tamsulosin [Flomax] 0.4 mg PO DAILY 10/20/18 10/30/18 History metFORMIN HCL 1,000 mg PO BID 10/20/18 10/30/18 History Albuterol Nebulized [Ventolin 2.5 mg INHALATION RT-BID 10/30/18 10/30/18 History Nebulized] Cyclobenzaprine [Flexeril] 5 mg PO TID 10/30/18 10/30/18 History Ibuprofen [Motrin] 600 mg PO TID PRN 10/30/18 10/30/18 History Insulin Lispro [Admelog] See Protocol SQ AC-TID 10/30/18 10/30/18 History Magnesium Oxide [Mag-Ox] 250 mg PO BID 10/30/18 10/30/18 History Oxybutynin Xl [Ditropan Xl] 5 mg PO DAILY 10/30/18 10/30/18 History Sertraline [Zoloft] 100 mg PO DAILY 10/30/18 10/30/18 History Simethicone [Gas-X] 125 mg PO TID PRN 10/30/18 10/30/18 History Allergies Allergy/AdvReac Type Severity Reaction Status Date / Time morphine AdvReac Nausea & Verified 10/30/18 17:01 Vomiting Physical Exam Vitals: Vital Signs Temp Pulse Pulse Resp BP BP Pulse Ox 11/02/18 08:48 92 11/02/18 08:35 88 11/02/18 08:00 97.5 F L 86 16 140/75 98 11/02/18 03:25 98.1 F 84 16 137/71 93 L 11/01/18 23:30 98.4 F 88 18 153/86 94 L 11/01/18 20:55 98.7 F 86 18 145/71 93 L 11/01/18 20:39 90 11/01/18 20:28 89 11/01/18 17:03 90 11/01/18 16:52 89 91 L 11/01/18 16:00 98.4 F 87 18 148/74 90 L 11/01/18 11:49 93 16 11/01/18 11:46 98.3 F 85 20 149/79 91 L 11/01/18 11:38 93 16 Intake and Output 11/01/18 11/02/18 11/02/18 22:59 06:59 14:59 Intake Total 780 Output Total 450 500 Balance 330 -500 Intake: Oral 780 Output: Urine 450 500 Other: Voiding Method Toilet Urinal # Voids 2 Weight 98.6 kg - Constitutional General appearance: cooperative, mild distress, obese - EENT Eyes: anicteric sclerae, EOMI, normal appearance ENT: no hard of hearing, hearing grossly normal, no NA/AT, normal oropharynx, no other, no pharyngeal erythema, no thrush, no tonsillar exudates, no tonsillar swelling - Neck Neck: no lymphadenopathy - Respiratory Respiratory: right: diminished, left: CTA - Cardiovascular Rhythm: regular Heart sounds: normal: S1, S2 Abnormal Heart Sounds: no systolic murmur, no diastolic murmur, no rub, no S3 Gallop, no S4 Gallop, no click, no other leg Peripheral Edema: bilateral: Trace - Gastrointestinal General gastrointestinal: no absent bowel sounds, decreased bowel sounds, distended, no hepatomegaly, no hyperactive bowel sounds, no normal bowel sounds, no organomegaly, no rigid, no scaphoid, soft, no splenomegaly, no tenderness, no umbilical hernia, no ventral hernia - Integumentary Multiple tattoos Integumentary: normal - Neurologic Neurologic: CNII-XII intact - Musculoskeletal Musculoskeletal: strength equal bilaterally - Psychiatric Psychiatric: A&O x's 3, appropriate affect, intact judgment & insight Results CBC & Chem 7: 11/02/18 05:44 11/02/18 05:44 Labs: Abnormal Lab Results - Last 24 Hours (Table) 11/01/18 11/02/18 11/02/18 Range/Units 20:58 05:44 05:44 RBC 3.54 L (4.30-5.90) m/uL Hgb 10.5 L (13.0-17.5) gm/dL Hct 33.7 L (39.0-53.0) % RDW 19.0 H (11.5-15.5) % Plt Count 134 L (150-450) k/uL BUN 8 L (9-20) mg/dL Glucose 103 H (74-99) mg/dL POC Glucose (mg/dL) 175 H (75-99) mg/dL Microbiology - Last 24 Hours (Table) 10/30/18 17:45 Blood Culture - Preliminary Blood No Growth after 48 hours 10/30/18 17:12 Group A Strep Throat Culture - Final Throat CT scan - abdomen: report reviewed CT scan - chest: report reviewed CT scan - pelvis: report reviewed Assessment and Plan (1) Splenomegaly Narrative/Plan: On exam unable to palpate the spleen, patient's abdomen is very distended though making thorough exam rather difficult. Multiple blood tests have been ordered for evaluation of splenomegaly, ultrasoun d dedicated to the liver and spleen ordered. At this time there is nothing acutely from the Heme/Onc standpoint. Pending workup with further recommendations to follow. Current Visit: Yes Status: Acute Priority: High Code(s): R16.1 - SPLENOMEGALY, NOT ELSEWHERE CLASSIFIED SNOMED Code(s): 80366613 Plan: Doctor attests: I performed a history and physical examination of this patient with dictator. I have developed impression and plan, agree with dictators note, documented as a scribe.
--- NOTE | 2018-11-02 10:40 | P.PN ---
Subjective Progress Note Date: 11/02/18 This is a 58-year-old male patient of Dr. Whitlock. Patient presented with complaints of shortness of breath. Patient states that over the past 2 days he has Had increased sputum production and fever. Patient reports that approximately 6 days ago he underwent EGD to investigate anemia with Dr. Loraine huang. Patient denies any recent abdominal pain nausea or vomiting. Patient reports he has been having normal bowel movements. Patient has past medical history of COPD, CVA, diabetes mellitus, hyperlipidemia, hypertension, memory impairment, seizure disorder, PainPump, anemia, anxiety, depression, nicotine dependence. Patient also recently underwent balloon angioplasty of the left SFA and maintained on Plavix. Diffuse increased interstitial markings. No focal airspace disease. Large amount of gastric or bowel contents partially visualized. Abdominal x-ray completed showing stomach is massively distended with a large amount of food material. CT of abdomen and pelvis completed showing multifocal bilateral predominantly basal basilar airspace disease. Enlarged hilar or mediastinal lymph nodes are also present. Multifocal pneumonia is favored. Massively distended stomach dilation of the first second and third portions of the duodenum. No definitive transition point is identified at adjusting of focal obstruction. Splenomegaly. Chronic appearing infrarenal abdominal aortic dissection with a focal areas. Postsurgical changes of the spine. EKG completed showing sinus tachycardia. Chest x-ray completed showing basal atelectasis, correlate for pneumonia. Patient's mediastinal adeno he is not evident on plain film. Patient had temperature 104.5 on admission. UA negative. Blood negative. Group B strep negative. Sputum, blood and urine cultures ordered. Pulmonary service is consulted. Patient started on Rocephin and azithromycin. Surgical services also consulted. At this time patient's abdomen significantly distended. Patient states that this is normal for him and he is not complaining of any specific pain or discomfort. Patient denies nausea vomiting or diarrhea. Patient denies any chest pain. Patient denies any urinary burning or frequency On 11/01/2018 patient is alert and oriented 3. Abdomen was distended today. NG tube remains in place. Patient reports he had normal BM last night. Antibiotics Zosyn and azithromycin for possible aspiration pneumonia per pulmonary. Infectious disease also consulted. At this time patient denies chest pain. Patient does report cough but denies shortness of breath. Patient denies nausea vomiting or diarrhea. Patient denies any urinary burning or frequency On 11/02/2018 patient's alert and oriented 3. Abdomen is less distended today. NG tube has been placed per surgical team. Oncology services have been consulted for enlarged spleen. Patient remains on Zosyn and azithromycin for aspiration pneumonia. At this time patient denies chest pain. Patient denies nausea vomiting or diarrhea. Patient denies any urinary burning or frequency Objective - Vital Signs Vital signs: Vital Signs Temp 97.5 F L 11/02/18 08:00 Pulse 92 11/02/18 08:48 Resp 16 11/02/18 08:00 BP 140/75 11/02/18 08:00 Pulse Ox 98 11/02/18 08:00 Intake & Output 11/01/18 11/02/18 11/02/18 18:59 06:59 18:59 Intake Total 780 480 Output Total 950 500 Balance -170 -20 Weight 98.6 kg Intake: Oral 780 480 Output: Gastric Drainage 50 Urine 900 500 Other: Voiding Method Toilet Urinal # Voids 2 - Exam Head normocephalic Neck supple Lungs diminished bilaterally Heart regular rate and rhythm S1-S2, no rub or gallop Abdomen hard distended nontender abdomen Extremities no edema Neuro alert and orientated to 3 - Labs CBC & Chem 7: 11/02/18 05:44 11/02/18 05:44 Labs: Abnormal Lab Results - Last 24 Hours (Table) 11/01/18 11/02/18 11/02/18 Range/Units 20:58 05:44 05:44 RBC 3.54 L (4.30-5.90) m/uL Hgb 10.5 L (13.0-17.5) gm/dL Hct 33.7 L (39.0-53.0) % RDW 19.0 H (11.5-15.5) % Plt Count 134 L (150-450) k/uL BUN 8 L (9-20) mg/dL Glucose 103 H (74-99) mg/dL POC Glucose (mg/dL) 175 H (75-99) mg/dL Microbiology - Last 24 Hours (Table) 10/30/18 17:45 Blood Culture - Preliminary Blood No Growth after 48 hours 10/30/18 17:12 Group A Strep Throat Culture - Final Throat Assessment and Plan Assessment: 1. Acute bilateral lower lobe pneumonia. CT of chest showing multifocal bilateral predominantly bibasilar airspace disease. Enlarged hilar or mediastinal lymph nodes are also present. Multifocal pneumonia is favored. Dr. gan has been consulted for pulmonary care. Patient had temperature 104.5 on admission. Blood urine and sputum cultures have been ordered. Per pulmonary services consider possible aspiration pneumonia post EGD. Patient currently on Zosyn and Zithromax. Infectious disease Consulted 2. Abdominal distention. CT of abdomen and pelvis completed showing massively distended stomach with dilation of the first, second and third portions of the duodenum. No definitive transition point is identified suggesting focal obstruction. Surgical services have been consulted. NG tube has been placed patient made nothing by mouth. Abdominal x-ray completed showing antritis, fecal stasis. Upper GI x-ray completed showing delayed filling of the colon and into small bowel with persistent dilated small bowel loops to the level the distal ileum. Partial obstruction in the differential diagnoses correlate clinically. NG tube has been removed per surgical services 3. Recent EGD and colonoscopy with Dr. Santiago 6 days ago. Results showing antral gastritis, transverse colon polyp and mild diverticulosis 4. Recent balloon angioplasty to left SFA in July [address] Degroot. maintained on Plavix and aspirin 5. History of COPD 6. History of diabetes mellitus. Metformin on hold. Home meds resumed sliding scale coverage ordered. Hemoglobin A1c 7.6 7. History of hyperlipidemia 8. History of essential hypertension 9. Seizure disorder patient maintained on Keppra 10. History of chronic pain with pain pump 11. Nicotine dependence. Nicotine patch ordered 12. History of anxiety and depression 13. Infrarenal aortic dissection, stable. Dr. Vick consulted Plavix and aspirin currently on hold. Per Dr. Vick with vascular services abdominal aortic aneurysm is stable. Patient will need close following upon discharge follow-up in office in one month. 14. Iron deficiency anemia. She recently underwent EGD and colonoscopy with Dr. Santiago. maintained on ferrous sulfate. Hemoglobin 10.2 15. Splenomegaly. Oncology service is consulted. ultrasound of abdomen ordered, Additional lab work ordered DVT prophylaxis SCDs to evaluate surgical services. GI prophylaxis Protonix I performed an examination of the patient and discussed their management with the Nurse Practitioner. I have reviewed the Nurse Practitioner's notes and agree with the documented findings and plan of care
--- NOTE | 2018-11-02 11:12 | P.PN ---
Subjective Progress Note Date: 11/02/18 CHIEF COMPLAINT: Abnormal CT HISTORY OF PRESENT ILLNESS: Patient examined this morning at the bedside. Patient underwent upper GI yesterday. Dr. Santiago reviewed imaging and discontinued NG tube yesterday. Patient was placed on clear liquids. Patient tolerating liquids without difficulty. Passing flatus. Denies abdominal pain. Denies nausea or vomiting. PHYSICAL EXAM: VITAL SIGNS: Reviewed. GENERAL: Well-developed in no acute distress. HEENT: No sclera icterus. Extraocular movements grossly intact. Moist buccal mucosa. Head is atraumatic, normocephalic. ABDOMEN: Distended. Firm. No pain or tenderness with palpation. Positive bowel sounds. NEUROLOGIC: Alert and oriented. Cranial nerves II through XII grossly intact. ASSESSMENT: 1. Massively dilated stomach and duodenum with recent EGD and colonoscopy, possible focal obstruction with no transition point identified on CT, however patient asymptomatic and denies abdominal complaints PLAN: Advance diet as tolerated. No surgical intervention recommended at this time. We will sign off. Please reconsult if needed. Nurse practitioner note has been reviewed by physician. Signing provider agrees with the documented findings, assessment, and plan of care. Objective - Vital Signs Vital signs: Vital Signs Temp 97.5 F L 11/02/18 08:00 Pulse 92 11/02/18 08:48 Resp 16 11/02/18 08:00 BP 140/75 11/02/18 08:00 Pulse Ox 98 11/02/18 08:00 Intake & Output 11/01/18 11/02/18 11/02/18 18:59 06:59 18:59 Intake Total 780 480 Output Total 950 500 Balance -170 -20 Weight 98.6 kg Intake: Oral 780 480 Output: Gastric Drainage 50 Urine 900 500 Other: Voiding Method Toilet Urinal # Voids 2 - Labs CBC & Chem 7: 11/02/18 05:44 11/02/18 05:44 Labs: Abnormal Lab Results - Last 24 Hours (Table) 11/01/18 11/02/18 11/02/18 Range/Units 20:58 05:44 05:44 RBC 3.54 L (4.30-5.90) m/uL Hgb 10.5 L (13.0-17.5) gm/dL Hct 33.7 L (39.0-53.0) % RDW 19.0 H (11.5-15.5) % Plt Count 134 L (150-450) k/uL BUN 8 L (9-20) mg/dL Glucose 103 H (74-99) mg/dL POC Glucose (mg/dL) 175 H (75-99) mg/dL Microbiology - Last 24 Hours (Table) 10/30/18 17:45 Blood Culture - Preliminary Blood No Growth after 48 hours 10/30/18 17:12 Group A Strep Throat Culture - Final Throat
[2018-11-02 11:53] LABS: Glucose,Whole Blood 119 mg/dL (75-99)
[2018-11-02] MEDS: FOLIC ACID 1 MG TAB PO SCH (15:11)
[2018-11-02] MEDS: MULTIVITAMINS, THERA 1 EACH TAB PO SCH (15:11)
[2018-11-02] MEDS: FERROUS SULFATE 325 MG TAB PO SCH (15:11)
[2018-11-02] MEDS: SODIUM CHLORIDE 0.9% 1,000 ML IV SCH ×2 (15:12→17:15)
--- NOTE | 2018-11-02 15:58 | P.PN ---
Subjective Progress Note Date: 11/02/18 Principal diagnosis: Acute bilateral lower lobe pneumonia left greater than the right, aspiration pneumonia. On today's evaluation of 11/01/2018, the patient is doing better compared to yesterday. NG tube is in place. Abdomen is morbidly flatus yet there is still tympany in the stomach region and in the left upper quadrant. No nausea. No vomiting. He did have a bowel movement yesterday. He is nothing by mouth for now. General surgeries on the case. Meanwhile, the patient is on a combination of antibiotics with Zithromax and Zosyn. He was able to give us a sputum s ample. His cough is congested. No stiffness to distress. No fever or chills. The second is not elevated at 7.9. Rest of the blood work is all within normal limits. Hemoglobin is at 10.2. On 11/02/2017 patient seen in follow-up on selective care unit, he is awake and alert, in no acute distress, his abdomen still distended, but slightly less, he did have a bowel movement, he states his breathing is improving, no acute distress, 0.9 normal seen at a rate of 100 ML per hour. 2 L of oxygen and the pulse ox of 95%, afebrile. His get some shortness of breath with ambulation, but otherwise in no acute distress. Today's labs have been reviewed, and showed a white blood cell count of 9.0, hemoglobin is 10.5, electrolytes and renal profile were unremarkable. NG tube has been discontinued per surgery, there has been no nausea, or vomiting. He is tolerating liquids without difficulty. He is passing flatus. He denies any abdominal pain. Surgery is following. he is hoping to be able to go home either today or tomorrow. All culture data including blood, urine culture showed no growth, sputum culture is pending. Preliminary Gram stain showed rare gram-positive cocci, rare gram-negative bacilli. Objective - Vital Signs Vital signs: Vital Signs Temp 98 F 11/02/18 15:17 Pulse 80 11/02/18 15:17 Resp 16 11/02/18 15:17 BP 126/67 11/02/18 15:17 Pulse Ox 95 11/02/18 15:17 Intake & Output 11/01/18 11/02/18 11/02/18 18:59 06:59 18:59 Intake Total 780 1860 Output Total 950 500 Balance -170 1360 Weight 98.6 kg Intake: Intake, IV Titration 900 Amount Piperacillin-Tazobactam 3 100 .375 gm In Sodium Chloride 0.9% 100 ml @ 25 mls/hr IVPB Q8HR [facility] Rx# :[id number] Sodium Chloride 0.9% 1, 800 000 ml @ 100 mls/hr IV . Q10H [facility] Rx#:[id number] Oral 780 960 Output: Gastric Drainage 50 Urine 900 500 Other: Voiding Method Toilet Urinal # Voids 2 - Exam GENERAL EXAM: Alert, pleasant, 58-year-old white male, on 2 L of oxygen comfortable in no apparent distress. HEAD: Normocephalic/atraumatic. EYES: Normal reaction of pupils, equal size. Conjunctiva pink, sclera white. NOSE: Clear with pink turbinates. THROAT: No erythema or exudates. NECK: No masses, no JVD, no thyroid enlargement, no adenopathy. CHEST: No chest wall deformity. Symmetrical expansion. LUNGS: Equal air entry with no crackles, wheeze, rhonchi or dullness. CVS: Regular rate and rhythm, normal S1 and S2, no gallops, no murmurs, no rubs ABDOMEN: Soft, nontender, distended. No hepatosplenomegaly, normal bowel sounds, no guarding or rigidity. EXTREMITIES: No clubbing, no edema, no cyanosis, 2+ pulses and upper and lower extremities. MUSCULOSKELETAL: Muscle strength and tone normal. SPINE: No scoliosis or deformity SKIN: No rashes CENTRAL NERVOUS SYSTEM: Alert and oriented -3. No focal deficits, tone is normal in all 4 extremities. PSYCHIATRIC: Alert and oriented -3. Appropriate affect. Intact judgment and insight. - Labs CBC & Chem 7: 11/02/18 05:44 11/02/18 05:44 Labs: Abnormal Lab Results - Last 24 Hours (Table) 11/01/18 11/02/18 11/02/18 Range/Units 20:58 05:44 05:44 RBC 3.54 L (4.30-5.90) m/uL Hgb 10.5 L (13.0-17.5) gm/dL Hct 33.7 L (39.0-53.0) % RDW 19.0 H (11.5-15.5) % Plt Count 134 L (150-450) k/uL ESR (0-15) mm/hr BUN 8 L (9-20) mg/dL Glucose 103 H (74-99) mg/dL POC Glucose (mg/dL) 175 H (75-99) mg/dL 11/02/18 11/02/18 Range/Units 10:45 11:39 RBC (4.30-5.90) m/uL Hgb (13.0-17.5) gm/dL Hct (39.0-53.0) % RDW (11.5-15.5) % Plt Count (150-450) k/uL ESR 72 H (0-15) mm/hr BUN (9-20) mg/dL Glucose (74-99) mg/dL POC Glucose (mg/dL) 119 H (75-99) mg/dL Microbiology - Last 24 Hours (Table) 10/30/18 17:45 Blood Culture - Preliminary Blood No Growth after 48 hours Assessment and Plan Plan: Assessment: 1 acute bilateral lower lobe pneumonia left more than right with airspace disease and secondary shortness of breath. Consider aspiration pneumonia post endoscopy/EGD. Doing well and the patient is well covered with accommodation Z osyn and Zithromax. No signs of any worsening on clinical grounds. The abdomen was deflated and the patient has an NG tube in place regarding his chronic and ongoing abdominal distention. 2 nonspecific enlarged hilar and based on lymph node, chronicity is not known, will need to be addressed at a later stage after clearing of the pneumonia 3 acute febrile illness secondary to above, recovered and the patient is currently afebrile. 4 chronic abdominal distention with a CAT scan of the abdomen and pelvis showing massive distention of the stomach and portions of the duodenum, general surgeri es on the case and the patient has an NG tube in place. The patient also has a small umbilical hernia and ventral hernia which is easily reducible. On examination, the patient's abdomen is less distended compared to yesterday. NG tube is in place. He did have a bowel movement yesterday. General surgeries on the case. 5 COPD 6 peripheral vascular disease with previous angioplasty of the left SFA 7 diabetes mellitus 8 infrarenal aortic dissection, stable 9 hypertension 10 hyperlipidemia 11 seizure disorder on Keppra 12 history of chronic back pain currently on a pain pump 13 nicotine dependence 14 colonic diverticulosis Plan: Obtain a follow-up chest x-ray in the morning, clinically patient denies any worsening shortness of breath, no fever no chills, no chest pain. Will await the final results of the sputum culture, continue current antibiotics, patient is passing bowel movements, NG tube has been discontinued, surgery following. If chest x-ray shows improvement and continues to improve, he may be considered for discharge home as well as his been cleared by surgery, We'll continue to follow and make further recommendations I performed a history & physical examination of the patient and discussed their management with my nurse practitioner, Kimber Pang. I reviewed the nurse practitioner's note and agree with the documented findings and plan of care. Lung sounds are positive for diminished breath sounds bilaterally . The findings and the impression was discussed with the patient. I attest to the documentation by the nurse practitioner. Time with Patient: Less than 30
--- NOTE | 2018-11-02 16:56 | US ---
EXAMINATION TYPE: US abdomen LIMITED DATE OF EXAM: 11/02/2018 COMPARISON: NONE CLINICAL HISTORY: splenomegaly-please comment on spleen size. Splenomegaly EXAM MEASUREMENTS: Liver Length: 18.1 cm Gallbladder Wall: 0.3 cm CBD: 0.4 cm Spleen: 17.2 cm Right Kidney: 11.7 x 5.6 x 6.2 cm Pancreas: Limited by bowel gas Liver: enlarged, attenuating Gallbladder: no evidence of stones Evidence for sonographic Graves's sign: no CBD: appears wnl Spleen: enlarged Right Kidney: no evidence of hydronephrosis IMPRESSION: 1. Hepatosplenomegaly. Pattern of liver is nonspecific and be seen with hepatic steatosis, hepatitis or diffuse hepatocellular disease correlate clinically.
[2018-11-02 17:16] LABS: Glucose,Whole Blood 116 mg/dL (75-99)
[2018-11-02 19:49] LABS: HIV 1 AB Non-Reactive (Non-Reactive); HIV AB P24 Non-Reactive (Non-Reactive); HIV P24 AG Non-Reactive (Non-Reactive)
[2018-11-02 19:51] LABS: Protein, Total 6.8 g/dL (6.2-8.2)
[2018-11-02 20:21] LABS: Hepatitis B Surface AB- Quant 3.5 mIU/mL; Hepatitis C IgG Antibody Reactive (Non-Reactive)
[2018-11-02 20:49] LABS: Glucose,Whole Blood 130 mg/dL (75-99)
[2018-11-02 21:20] LABS: Rheumatoid Factor 17 IU/mL (0-15)
[2018-11-03] MEDS: PIPERACILLIN-TAZOBACTAM 3.375 GM in SODIUM CHLORIDE 0.9% 100 ML IVPB SCH ×4 (00:37→22:53)
[2018-11-03 06:21] LABS: Glucose,Whole Blood 100 mg/dL (75-99)
[2018-11-03] MEDS: INSULIN ASPART (NovoLOG) 100 UNIT/ML VIAL SQ SCH ×4 (06:37→21:23)
[2018-11-03 07:08] LABS: Anisocytosis Slight; Basophils % (A) 0 %; Eosinophils # (A) 0.2 k/uL (0-0.7); Eosinophils % (A) 2 %; HCT 34.6 % (39.0-53.0); HGB 10.6 gm/dL (13.0-17.5); Hypochromasia Slight; Lymphocytes # (A) 1.3 k/uL (1.0-4.8); Lymphocytes % (A) 13 %; MCH 29.1 pg (25.0-35.0); MCHC 30.6 g/dL (31.0-37.0); MCV 95.1 fL (80.0-100.0); Macrocytosis Slight; Mean Platelet Volume 7.4; Monocytes # (A) 0.6 k/uL (0-1.0); Monocytes % (A) 7 %; Neutrophils # (A) 7.5 k/uL (1.3-7.7); Neutrophils % (A) 76 %; Platelet Count 145 k/uL (150-450); RBC 3.64 m/uL (4.30-5.90); WBC 9.8 k/uL (3.8-10.6)
[2018-11-03 07:18] LABS: ALT 21 U/L (21-72); AST 35 U/L (17-59); Albumin 3.4 g/dL (3.5-5.0); Alkaline Phosphatase 110 U/L (38-126); Anion Gap 8 mmol/L; Blood Urea Nitrogen 9 mg/dL (9-20); Calcium 8.8 mg/dL (8.4-10.2); Carbon Dioxide 28 mmol/L (22-30); Chloride 101 mmol/L (98-107); Glucose 84 mg/dL (74-99); Potassium 4.6 mmol/L (3.5-5.1); Sodium 137 mmol/L (137-145); Total Bilirubin 0.9 mg/dL (0.2-1.3); Total Protein 7.2 g/dL (6.3-8.2)
[2018-11-03] MEDS: IPRATROPIUM-ALBUTEROL 3 ML NEB INHALATION SCH ×5 (09:30→20:51)
[2018-11-03] MEDS: FUROSEMIDE 20 MG TAB PO SCH (09:35)
[2018-11-03] MEDS: levETIRAcetam 500 MG TAB PO SCH ×2 (09:35→21:22)
[2018-11-03] MEDS: LISINOPRIL 5 MG TAB PO SCH (09:35)
[2018-11-03] MEDS: AZITHROMYCIN 500 MG TAB PO SCH (09:36)
[2018-11-03] MEDS: OXYBUTYNIN XL 5 MG TAB.ER.24 PO SCH (09:36)
[2018-11-03] MEDS: PARoxetine 20 MG TAB PO SCH (09:36)
[2018-11-03] MEDS: SERTRALINE 100 MG TAB PO SCH ×2 (09:36→09:44)
[2018-11-03] MEDS: ASPIRIN 81 MG PO SCH (09:36)
[2018-11-03] MEDS: CYCLOBENZAPRINE 5 MG TAB PO SCH ×3 (09:36→21:22)
[2018-11-03] MEDS: TAMSULOSIN 0.4 MG CAP.ER.24H PO SCH (09:36)
[2018-11-03] MEDS: PANTOPRAZOLE 40 MG/10 ML VIAL IVP SCH (09:36)
[2018-11-03] MEDS: MAGNESIUM OXIDE 400 MG TAB PO SCH ×2 (09:36→21:23)
[2018-11-03] MEDS: INSULIN DETEMIR (LEVEMIR) 100 UNIT/ML SYR SQ SCH (09:37)
[2018-11-03] MEDS: HYDROcodone/APAP 5-325MG 1 EACH TAB PO PRN ×2 (09:37→16:44)
[2018-11-03] MEDS: PREGABALIN 75 MG CAP PO SCH ×2 (09:38→21:23)
[2018-11-03] MEDS: NON-FORMULARY DRUG (Liraglutide [Victoza 2-Pak] 1.8 MG) SQ SCH (10:02)
[2018-11-03] MEDS: NICOTINE 14MG/24HR PATCH TRANSDERM SCH (10:02)
[2018-11-03] MEDS: SODIUM CHLORIDE 0.9% 1,000 ML IV SCH ×3 (10:48→22:53)
--- NOTE | 2018-11-03 10:58 | XR ---
EXAMINATION TYPE: XR chest 2V DATE OF EXAM: 11/03/2018 COMPARISON: Prior chest x-ray dated 10/31/2017 HISTORY: Shortness of breath TECHNIQUE: Frontal and lateral views of the chest are obtained. FINDINGS: Gastric tube has been removed. There are overlying cardiac leads. No pneumothorax or pleur al effusion. Perihilar increased density is noted. Heart size is normal. IMPRESSION: Bilateral airspace disease is suspected, correlate for pneumonia versus edema. Follow-up is recommended.
--- NOTE | 2018-11-03 10:58 | P.PN ---
Subjective Progress Note Date: 11/03/18 This is a 58-year-old male patient of Dr. Whitlock. Patient presented with complaints of shortness of breath. Patient states that over the past 2 days he has Had increased sputum production and fever. Patient reports that approximately 6 days ago he underwent EGD to investigate anemia with Dr. Loraine huang. Patient denies any recent abdominal pain nausea or vomiting. Patient reports he has been having normal bowel movements. Patient has past medical history of COPD, CVA, diabetes mellitus, hyperlipidemia, hypertension, memory impairment, seizure disorder, PainPump, anemia, anxiety, depression, nicotine dependence. Patient also recently underwent balloon angioplasty of the left SFA and maintained on Plavix. Diffuse increased interstitial markings. No focal airspace disease. Large amount of gastric or bowel contents partially visualized. Abdominal x-ray completed showing stomach is massively distended with a large amount of food material. CT of abdomen and pelvis completed showing multifocal bilateral predominantly basal basilar airspace disease. Enlarged hilar or mediastinal lymph nodes are also present. Multifocal pneumonia is favored. Massively distended stomach dilation of the first second and third portions of the duodenum. No definitive transition point is identified at adjusting of focal obstruction. Splenomegaly. Chronic appearing infrarenal abdominal aortic dissection with a focal areas. Postsurgical changes of the spine. EKG completed showing sinus tachycardia. Chest x-ray completed showing basal atelectasis, correlate for pneumonia. Patient's mediastinal adeno he is not evident on plain film. Patient had temperature 104.5 on admission. UA negative. Blood negative. Group B strep negative. Sputum, blood and urine cultures ordered. Pulmonary service is consulted. Patient started on Rocephin and azithromycin. Surgical services also consulted. At this time patient's abdomen significantly distended. Patient states that this is normal for him and he is not complaining of any specific pain or discomfort. Patient denies nausea vomiting or diarrhea. Patient denies any chest pain. Patient denies any urinary burning or frequency On 11/01/2018 patient is alert and oriented 3. Abdomen was distended today. NG tube remains in place. Patient reports he had normal BM last night. Antibiotics Zosyn and azithromycin for possible aspiration pneumonia per pulmonary. Infectious disease also consulted. At this time patient denies chest pain. Patient does report cough but denies shortness of breath. Patient denies nausea vomiting or diarrhea. Patient denies any urinary burning or frequency On 11/02/2018 patient's alert and oriented 3. Abdomen is less distended today. NG tube has been placed per surgical team. Oncology services have been consulted for enlarged spleen. Patient remains on Zosyn and azithromycin for aspiration pneumonia. At this time patient denies chest pain. Patient denies nausea vomiting or diarrhea. Patient denies any urinary burning or frequency On 11/03/2018 patient is alert and oriented 3 but does not appear to clearly understand the severity of his sickness. Per nursing staff patient's has expressed that patient has been "off" for the past couple days prior to hospitalization. This time will obtain head CT, ammonia level and consult neurology. Patient denies any chest pain or shortness of breath. Abdomen remains distended but improved. Patient denies any nausea vomiting or diarrhea. Patient denies any urinary burning or frequency Objective - Vital Signs Vital signs: Vital Signs Temp 98.1 F 11/03/18 08:00 Pulse 86 11/03/18 09:43 Resp 16 11/03/18 10:02 BP 172/78 11/03/18 08:00 Pulse Ox 93 L 11/03/18 09:30 Intake & Output 11/02/18 11/03/18 11/03/18 18:59 06:59 18:59 Intake Total 2460 1580 Output Total 1375 300 380 Balance 1085 -300 1200 Weight 98.5 kg Intake: Intake, IV Titration 900 1000 Amount Piperacillin-Tazobactam 3 100 .375 gm In Sodium Chloride 0.9% 100 ml @ 25 mls/hr IVPB Q8HR [facility] Rx# :[id number] Sodium Chloride 0.9% 1, 800 1000 000 ml @ 100 mls/hr IV . Q10H [facility] Rx#:[id number] Oral 1560 580 Output: Urine 1375 300 380 Other: # Voids 1 - Exam Head normocephalic Neck supple Lungs diminished bilaterally Heart regular rate and rhythm S1-S2, no rub or gallop Abdomen hard distended nontender abdomen Extremities no edema Neuro alert and orientated to 3 - Labs CBC & Chem 7: 11/03/18 06:21 11/03/18 06:21 Labs: Abnormal Lab Results - Last 24 Hours (Table) 11/02/18 11/02/18 11/02/18 Range/Units 10:45 10:45 11:39 RBC (4.30-5.90) m/uL Hgb (13.0-17.5) gm/dL Hct (39.0-53.0) % MCHC (31.0-37.0) g/dL RDW (11.5-15.5) % Plt Count (150-450) k/uL ESR 72 H (0-15) mm/hr POC Glucose (mg/dL) 119 H (75-99) mg/dL Albumin (3.5-5.0) g/dL Rheumatoid Factor 17 H (0-15) IU/mL Hep C IgG Ab Reactive H (Non-Reactive) 11/02/18 11/02/18 11/03/18 Range/Units 16:56 20:48 06:20 RBC (4.30-5.90) m/uL Hgb (13.0-17.5) gm/dL Hct (39.0-53.0) % MCHC (31.0-37.0) g/dL RDW (11.5-15.5) % Plt Count (150-450) k/uL ESR (0-15) mm/hr POC Glucose (mg/dL) 116 H 130 H 100 H (75-99) mg/dL Albumin (3.5-5.0) g/dL Rheumatoid Factor (0-15) IU/mL Hep C IgG Ab (Non-Reactive) 11/03/18 11/03/18 Range/Units 06:21 06:21 RBC 3.64 L (4.30-5.90) m/uL Hgb 10.6 L (13.0-17.5) gm/dL Hct 34.6 L (39.0-53.0) % MCHC 30.6 L (31.0-37.0) g/dL RDW 19.0 H (11.5-15.5) % Plt Count 145 L (150-450) k/uL ESR (0-15) mm/hr POC Glucose (mg/dL) (75-99) mg/dL Albumin 3.4 L (3.5-5.0) g/dL Rheumatoid Factor (0-15) IU/mL Hep C IgG Ab (Non-Reactive) Microbiology - Last 24 Hours (Table) 10/30/18 17:45 Blood Culture - Preliminary Blood No Growth after 72 hours Assessment and Plan Assessment: 1. Acute bilateral lower lobe pneumonia. CT of chest showing multifocal bilateral predominantly bibasilar airspace disease. Enlarged hilar or mediastinal lymph nodes are also present. Multifocal pneumonia is favored. Dr. gan has been consulted for pulmonary care. Patient had temperature 104.5 on admission. Blood urine and sputum cultures have been ordered. Per pulmonary services consider possible aspiration pneumonia post EGD. Patient currently on Zosyn and Zithromax. Infectious disease Consulted 2. Abdominal distention. CT of abdomen and pelvis completed showing massively distended stomach with dilation of the first, second and third portions of the duodenum. No definitive transition point is identified suggesting focal obstruction. Surgical services have been consulted. NG tube has been placed patient made nothing by mouth. Abdominal x-ray completed showing antritis, fecal stasis. Upper GI x-ray completed showing delayed filling of the colon and into small bowel with persistent dilated small bowel loops to the level the distal ileum. Partial obstruction in the differential diagnoses correlate clinically. NG tube has been removed per surgical services 3. Recent EGD and colonoscopy with Dr. Santiago 6 days ago. Results showing antral gastritis, transverse colon polyp and mild diverticulosis 4. Recent balloon angioplasty to left SFA in July [address] Degroot. maintained on Plavix and aspirin 5. History of COPD 6. History of diabetes mellitus. Metformin on hold. Home meds resumed sliding scale coverage ordered. Hemoglobin A1c 7.6 7. History of hyperlipidemia 8. History of essential hypertension 9. Seizure disorder patient maintained on Keppra 10. History of chronic pain with pain pump 11. Nicotine dependence. Nicotine patch ordered 12. History of anxiety and depression 13. Infrarenal aortic dissection, stable. Dr. Vick consulted Plavix and aspirin currently on hold. Per Dr. Vick with vascular services abdominal aortic aneurysm is stable. Patient will need close following upon discharge follow-up in office in one month. 14. Iron deficiency anemia. She recently underwent EGD and colonoscopy with Dr. Santiago. maintained on ferrous sulfate. Hemoglobin 10.2 15. Splenomegaly. Oncology service is consulted. ultrasound of abdomen ordered, Additional lab work ordered 16. Increased confusion. Will order head CT, ammonia level and consult neurology services DVT prophylaxis heparin. GI prophylaxis Protonix I performed an examination of the patient and discussed their management with the Nurse Practitioner. I have reviewed the Nurse Practitioner's notes and agree with the documented findings and plan of care
[2018-11-03 11:35] LABS: Glucose,Whole Blood 133 mg/dL (75-99)
[2018-11-03] MEDS: FERROUS SULFATE 325 MG TAB PO SCH (12:26)
[2018-11-03] MEDS: FOLIC ACID 1 MG TAB PO SCH (12:26)
[2018-11-03] MEDS: MULTIVITAMINS, THERA 1 EACH TAB PO SCH (12:26)
[2018-11-03 13:09] LABS: Hepatits C Virus RNA DETECTED (Not detected); LOG HCV IU/mL 6.58 (<1.08)
--- NOTE | 2018-11-03 13:21 | P.PN ---
Subjective Progress Note Date: 11/03/18 The patient has generalized weakness. Shortness of breath is improved. He feels better overall. No fever or chills. Denied any abdominal pain. Objective - Vital Signs Vital signs: Vital Signs Temp 98.3 F 11/03/18 12:00 Pulse 84 11/03/18 12:00 Resp 16 11/03/18 12:00 BP 133/69 11/03/18 12:00 Pulse Ox 92 L 11/03/18 12:00 Intake & Output 11/02/18 11/03/18 11/03/18 18:59 06:59 18:59 Intake Total 2460 1580 Output Total 1375 300 380 Balance 1085 -300 1200 Weight 98.5 kg Intake: Intake, IV Titration 900 1000 Amount Piperacillin-Tazobactam 3 100 .375 gm In Sodium Chloride 0.9% 100 ml @ 25 mls/hr IVPB Q8HR [facility] Rx# :[id number] Sodium Chloride 0.9% 1, 800 1000 000 ml @ 100 mls/hr IV . Q10H [facility] Rx#:[id number] Oral 1560 580 Output: Urine 1375 300 380 Other: Voiding Method Toilet Urinal # Voids 1 - Constitutional General appearance: Present: no acute distress - EENT Eyes: Present: EOMI ENT: Present: hearing grossly normal, normal oropharynx - Respiratory Respiratory: bilateral: CTA - Cardiovascular Rhythm: regular Heart sounds: normal: S1, S2 - Gastrointestinal General gastrointestinal: Present: soft - Integumentary Integumentary: Present: normal - Neurologic Neurologic: Present: CNII-XII intact - Musculoskeletal Musculoskeletal: Present: generalized weakness, strength equal bilaterally - Psychiatric Psychiatric: Present: A&O x's 3 - Labs CBC & Chem 7: 11/03/18 06:21 11/03/18 06:21 Labs: Abnormal Lab Results - Last 24 Hours (Table) 11/02/18 11/02/18 11/02/18 Range/Units 10:45 10:45 16:56 RBC (4.30-5.90) m/uL Hgb (13.0-17.5) gm/dL Hct (39.0-53.0) % MCHC (31.0-37.0) g/dL RDW (11.5-15.5) % Plt Count (150-450) k/uL POC Glucose (mg/dL) 116 H (75-99) mg/dL Albumin (3.5-5.0) g/dL Rheumatoid Factor 17 H (0-15) IU/mL Free Peebles LC, Quant 6.81 H (0.33-1.94) mg/dL Free Lambda LC, Quant 3.65 H (0.57-2.63) mg/dL Hep C IgG Ab Reactive H (Non-Reactive) Hepatitis C Viral RNA DETECTED H (Not detected) IU/mL Hepatitis C RNA Quant 3,789,657 H (<12) IU/mL HCV RNA PCR log IUs/ml 6.58 H (<1.08) 11/02/18 11/03/18 11/03/18 Range/Units 20:48 06:20 06:21 RBC 3.64 L (4.30-5.90) m/uL Hgb 10.6 L (13.0-17.5) gm/dL Hct 34.6 L (39.0-53.0) % MCHC 30.6 L (31.0-37.0) g/dL RDW 19.0 H (11.5-15.5) % Plt Count 145 L (150-450) k/uL POC Glucose (mg/dL) 130 H 100 H (75-99) mg/dL Albumin (3.5-5.0) g/dL Rheumatoid Factor (0-15) IU/mL Free Peebles LC, Quant (0.33-1.94) mg/dL Free Lambda LC, Quant (0.57-2.63) mg/dL Hep C IgG Ab (Non-Reactive) Hepatitis C Viral RNA (Not detected) IU/mL Hepatitis C RNA Quant (<12) IU/mL HCV RNA PCR log IUs/ml (<1.08) 11/03/18 11/03/18 Range/Units 06:21 11:34 RBC (4.30-5.90) m/uL Hgb (13.0-17.5) gm/dL Hct (39.0-53.0) % MCHC (31.0-37.0) g/dL RDW (11.5-15.5) % Plt Count (150-450) k/uL POC Glucose (mg/dL) 133 H (75-99) mg/dL Albumin 3.4 L (3.5-5.0) g/dL Rheumatoid Factor (0-15) IU/mL Free Peebles LC, Quant (0.33-1.94) mg/dL Free Lambda LC, Quant (0.57-2.63) mg/dL Hep C IgG Ab (Non-Reactive) Hepatitis C Viral RNA (Not detected) IU/mL Hepatitis C RNA Quant (<12) IU/mL HCV RNA PCR log IUs/ml (<1.08) Microbiology - Last 24 Hours (Table) 10/31/18 12:54 Gram Stain - Final Sputum Sputum Culture - Final Irena albicans Irena glabrata Beta Hemolytic Strep Group C 10/30/18 17:45 Blood Culture - Preliminary Blood No Growth after 72 hours Assessment and Plan (1) Splenomegaly Narrative/Plan: The patient had a labs ordered, which are negative so far. In addition he had imaging ordered liver and spleen. This confirmed evidence of splenomegaly, as well as heterogenous appearance of the liver indicating chronic liver disease. Therefore this is the most likely cause of the splenomegaly. Current Visit: Yes Status: Acute Priority: High Code(s): R16.1 - SPLENOMEGALY, NOT ELSEWHERE CLASSIFIED SNOMED Code(s): 60337170 (2) Hepatitis C antibody positive in blood Narrative/Plan: The patient's labs include testing for hepatitis, which showed hepatitis C a ntibody positive. This was discussed with the patient. This is likely the cause of his chronic liver disease. GI consult. Current Visit: Yes Status: Acute Code(s): R76.8 - OTHER SPECIFIED ABNORMAL IMMUNOLOGICAL FINDINGS IN SERUM SNOMED Code(s): 382420298 Plan: Based on the above, at this time the primary hematologic causes not evident for hepatosplenomegaly. Continue follow-up with IM for his other medical issues, and GI for his chronic liver disease and splenomegaly.
--- NOTE | 2018-11-03 13:50 | CT ---
EXAMINATION TYPE: CT brain wo con DATE OF EXAM: 11/03/2018 COMPARISON: MRI brain 07/12/2013 INDICATION: Confusion. DLP: 1158.4 mGycm, Automated exposure control for dose reduction was used. CONTRAST: None CT of the brain is performed utilizing 3 mm thick sections through the posterior fossa and 3 mm thick sections through the remaining calvarium. Study is performed within 24 hours of arrival to the hosp [facility]. No abnormal hyperdensity is present to suggest an acute intracranial hemorrhage. No mass lesion is evident. No acute infarcts are evident. There is hypodensity extending through the posterior right frontal lob e compatible with prior infarct. Some mild ex vacuo effect is present adjacent sulci.. Findings aren' t interval change from the 2014 MRI. Ventricles and sulci are prominent for the patient age. Paranasal sinuses and mastoid air cells within the [id number] are clear. IMPRESSIONS: 1. Old right frontal lobe infarct. 2. Mild atrophy
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
--- NOTE | 2018-11-03 14:38 | P.CONS ---
History of Present Illness - Reason for Consult Consult date: 11/03/18 Hepatitis C reactive antibody Requesting physician: Radha Sevilla - Chief Complaint Shortness of breath - History of Present Illness 58-year-old male admitted with bilateral lower lobe pneumonia. Hepatitis C reactive antibody. Consult requested for hepatitis C evaluation. Review of medical records no quantitative measurement or genotype obtained. Ultrasound abdomen hepatosplenomegaly measured 17.2 cm. Liver lengthy 18.1 cm. CBD 0.4cm. INR 0.9. Total bilirubin 0.9. AST 35. ALT 21. AP 110. No history of known liver disease. Patient states he has a remote history of cocaine usage as well as multiple tattoos not from reputable tattoo parlors. No history of known hepatitis C. No history of autoimmune diseases. Review of Systems Constitutional: Denies fever, chills, sweats, weight gain, or loss. HEENT: Negative for migraines, blurred vision or loss, earaches, drainage, tinnitus, oral mucosal lesions, dysphagia, or odynophagia. Cardiac: Negative for chest pain, arrhythmias, or palpitation. Respiratory: Admitted with shortness of breath denies, hemoptysis, cough, or sputum production. Gastrointestinal: See HPI for pertinent findings. Genitourinary: Negative for hematuria, urgency, frequency, polyuria, dysuria, or penile discharge. Musculoskeletal: Negative for muscle aches, swelling, arthritis, and arthralg ias. Neurologic: Negative for stroke or TIA. Endocrine: Negative for thyroid problems. Skin: Negative for rash or itching. Psychiatric: Negative history for depression and anxiety Past Medical History Past Medical History: COPD, CVA/TIA, Diabetes Mellitus, Hyperlipidemia, Hypertension, Memory Impairment, Seizure Disorder, Skin Disorder Additional Past Medical History / Comment(s): pain pump in back, anemia. History of Any Multi-Drug Resistant Organisms: None Reported Past Surgical History: Appendectomy, Back Surgery, Orthopedic Surgery Additional Past Surgical History / Comment(s): titanium shaft in lt leg, skin graph to rt 1st and middle finger, lt eardum replaced, cyrus. foot surgery to arch Past Anesthesia/Blood Transfusion Reactions: No Reported Reaction Past Psychological History: Anxiety, Depression Smoking Status: Current every day smoker Past Alcohol Use History: None Reported Additional Past Alcohol Use History / Comment(s): 1-2ppd Past Drug Use History: None Reported - Past Family History Brother(s) Family Medical History: No Reported History Mother Family Medical History: COPD, Diabetes Mellitus Medications and Allergies Home Medications Medication Instructions Recorded Confirmed Type Aspirin [Adult Low Dose Aspirin EC] 81 mg PO DAILY 08/28/15 10/30/18 History Clopidogrel [Plavix] 75 mg PO DAILY 08/28/15 10/30/18 History Folic Acid 1 mg PO DAILY 08/28/15 10/30/18 History Lisinopril [Prinivil] 5 mg PO DAILY 08/28/15 10/30/18 History Multivitamins, Thera [Multivitamin 1 tab PO DAILY 08/28/15 10/30/18 History (formulary)] PARoxetine [Paxil] 20 mg PO DAILY 08/28/15 10/31/18 History Albuterol Inhaler [Ventolin Hfa 1 - 2 puff INHALATION RT-Q6H PRN 07/19/18 10/30/18 History Inhaler] Furosemide [Lasix] 20 mg PO DAILY 07/19/18 10/30/18 History Insulin Glargine,Hum.rec.anlog 57 unit SQ DAILY 07/19/18 10/30/18 History [Basaglar Kwikpen U-100] Insulin Lispro [Admelog] 9 unit SQ AC-TID 07/19/18 10/30/18 History Liraglutide [Victoza 2-Selvin] 1.8 mg SQ DAILY 07/19/18 10/30/18 History Pregabalin [Lyrica] 150 mg PO BID 07/20/18 10/30/18 History levETIRAcetam [Keppra] 1,000 mg PO Q12HR 07/20/18 10/30/18 History Atorvastatin Calcium [Lipitor] 80 mg PO DAILY 10/20/18 10/30/18 History Ferrous Sulfate [Feosol] 325 mg PO DAILY 10/20/18 10/30/18 History HYDROcodone/APAP 5-325MG [[place] 1 tab PO TID PRN 10/20/18 10/30/18 History 5-325] Ondansetron HCl [Zofran] 8 mg PO Q6H PRN 10/20/18 10/30/18 History Tamsulosin [Flomax] 0.4 mg PO DAILY 10/20/18 10/30/18 History metFORMIN HCL 1,000 mg PO BID 10/20/18 10/30/18 History Albuterol Nebulized [Ventolin 2.5 mg INHALATION RT-BID 10/30/18 10/30/18 History Nebulized] Cyclobenzaprine [Flexeril] 5 mg PO TID 10/30/18 10/30/18 History Ibuprofen [Motrin] 600 mg PO TID PRN 10/30/18 10/30/18 History Insulin Lispro [Admelog] See Protocol SQ AC-TID 10/30/18 10/30/18 History Magnesium Oxide [Mag-Ox] 250 mg PO BID 10/30/18 10/30/18 History Oxybutynin Xl [Ditropan Xl] 5 mg PO DAILY 10/30/18 10/30/18 History Sertraline [Zoloft] 100 mg PO DAILY 10/30/18 10/30/18 History Simethicone [Gas-X] 125 mg PO TID PRN 10/30/18 10/30/18 History Allergies Allergy/AdvReac Type Severity Reaction Status Date / Time morphine AdvReac Nausea & Verified 10/30/18 17:01 Vomiting Physical Exam Vitals: Vital Signs Temp Pulse Pulse Pulse Resp BP BP 11/03/18 12:00 98.3 F 84 16 133/69 11/03/18 10:02 16 11/03/18 09:43 86 11/03/18 09:30 92 20 11/03/18 08:00 98.1 F 94 16 172/78 11/03/18 05:00 99.4 F 99 20 153/72 11/03/18 00:35 98.7 F 88 18 146/66 11/02/18 21:40 99.1 F 86 18 139/65 11/02/18 19:28 84 11/02/18 19:17 82 11/02/18 16:09 82 11/02/18 16:00 80 11/02/18 15:17 98 F 80 16 126/67 Pulse Ox 11/03/18 12:00 92 L 11/03/18 10:02 11/03/18 09:43 11/03/18 09:30 93 L 11/03/18 08:00 97 11/03/18 05:00 92 L 11/03/18 00:35 93 L 11/02/18 21:40 94 L 11/02/18 19:28 11/02/18 19:17 11/02/18 16:09 11/02/18 16:00 11/02/18 15:17 95 Intake and Output 11/02/18 11/03/18 11/03/18 22:59 06:59 14:59 Intake Total 600 1580 Output Total 875 300 380 Balance -275 -300 1200 Intake: Intake, IV Titration 1000 Amount Sodium Chloride 0.9% 1, 1000 000 ml @ 100 mls/hr IV . Q10H J[facility] Rx#:[id number] Oral 600 580 Output: Urine 875 300 380 Other: Voiding Method Toilet Urinal # Voids 1 Weight 98.5 kg General appearance: The patient is alert, oriented, in no acute distress. HET: Head is normocephalic and atraumatic. Pupils are equal and reactive. Oropharynx is clear without lesions. Neck: Supple without lymphadenopathy. Trachea midline. Heart: S1 S2. Regular rate and rhythm. Lungs: No crackles or wheezes are heard. Abdomen: Soft, nontender, nondistended with bowel sounds. No peritoneal signs. No palpable organomegaly or masses. Extremities: Normal skin color and turgor. No cyanosis, rash, ulceration, clubbing, or edema. Radial and pedal pulses are 2/4 bilaterally. Neurological: No focal deficits. Strength and sensation are grossly intact. Results CBC & Chem 7: 11/03/18 06:21 11/03/18 06:21 Labs: Abnormal Lab Results - Last 24 Hours (Table) 11/02/18 11/02/18 11/02/18 Range/Units 10:45 10:45 16:56 RBC (4.30-5.90) m/uL Hgb (13.0-17.5) gm/dL Hct (39.0-53.0) % MCHC (31.0-37.0) g/dL RDW (11.5-15.5) % Plt Count (150-450) k/uL ESR 72 H (0-15) mm/hr POC Glucose (mg/dL) 116 H (75-99) mg/dL Albumin (3.5-5.0) g/dL Rheumatoid Factor 17 H (0-15) IU/mL Free [place] LC, Quant 6.81 H (0.33-1.94) mg/dL Free Lambda LC, Quant 3.65 H (0.57-2.63) mg/dL Hep C IgG Ab Reactive H (Non-Reactive) 11/02/18 11/03/18 11/03/18 Range/Units 20:48 06:20 06:21 RBC 3.64 L (4.30-5.90) m/uL Hgb 10.6 L (13.0-17.5) gm/dL Hct 34.6 L (39.0-53.0) % MCHC 30.6 L (31.0-37.0) g/dL RDW 19.0 H (11.5-15.5) % Plt Count 145 L (150-450) k/uL ESR (0-15) mm/hr POC Glucose (mg/dL) 130 H 100 H (75-99) mg/dL Albumin (3.5-5.0) g/dL Rheumatoid Factor (0-15) IU/mL Free [place] LC, Quant (0.33-1.94) mg/dL Free Lambda LC, Quant (0.57-2.63) mg/dL Hep C IgG Ab (Non-Reactive) 11/03/18 11/03/18 Range/Units 06:21 11:34 RBC (4.30-5.90) m/uL Hgb (13.0-17.5) gm/dL Hct (39.0-53.0) % MCHC (31.0-37.0) g/dL RDW (11.5-15.5) % Plt Count (150-450) k/uL ESR (0-15) mm/hr POC Glucose (mg/dL) 133 H (75-99) mg/dL Albumin 3.4 L (3.5-5.0) g/dL Rheumatoid Factor (0-15) IU/mL Free [place] LC, Quant (0.33-1.94) mg/dL Free Lambda LC, Quant (0.57-2.63) mg/dL Hep C IgG Ab (Non-Reactive) Microbiology - Last 24 Hours (Table) 10/30/18 17:45 Blood Culture - Preliminary Blood No Growth after 72 hours US - abdomen: report reviewed (Dr. Chua) Assessment and Plan (1) Hepatitis C antibody positive in blood Current Visit: Yes Status: Acute Code(s): R76.8 - OTHER SPECIFIED ABNORMAL IMMUNOLOGICAL FINDINGS IN SERUM SNOMED Code(s): 049609862 (2) Splenomegaly Narrative/Plan: Suspect related to possible underlying chronic liver disease possible chronic HCV. Current Visit: Yes Status: Acute Priority: High Code(s): R16.1 - SPLENOMEGALY, NOT ELSEWHERE CLASSIFIED SNOMED Code(s): 80057761 (3) Pneumonia Current Visit: Yes Status: Acute Code(s): J18.9 - PNEUMONIA, UNSPECIFIED ORGANISM SNOMED Code(s): 393074222 Plan: 1. Reactive hepatitis C antibody possible chronic hepatitis C. Will need to obtain quantitative measurement and genotype. If patient has evidence of positivity of viral load will proceed with outpatient evaluation and discussion of antiviral therapy. We'll obtain an AFP. Continue present medical therapy. Return to office in 3-4 weeks for reevaluation. Thank you for this kind referral and the opportunity to participate in the care of your patient. This consultation was discussed with Dr. Chua. The impression and plan of care have been directed as dictated.
[2018-11-03 16:12] LABS: Glucose,Whole Blood 62 mg/dL (75-99)
[2018-11-03 16:32] LABS: Glucose,Whole Blood 102 mg/dL (75-99)
--- NOTE | 2018-11-03 18:35 | P.PN ---
Subjective Progress Note Date: 11/03/18 Principal diagnosis: Acute bilateral lower lobe pneumonia left greater than the right, aspiration pneumonia. On today's evaluation of 11/01/2018, the patient is doing better compared to yesterday. NG tube is in place. Abdomen is morbidly flatus yet there is still tympany in the stomach region and in the left upper quadrant. No nausea. No vomiting. He did have a bowel movement yesterday. He is nothing by mouth for now. General surgeries on the case. Meanwhile, the patient is on a combination of antibiotics with Zithromax and Zosyn. He was able to give us a sputum s ample. His cough is congested. No stiffness to distress. No fever or chills. The second is not elevated at 7.9. Rest of the blood work is all within normal limits. Hemoglobin is at 10.2. On 11/02/2017 patient seen in follow-up on selective care unit, he is awake and alert, in no acute distress, his abdomen still distended, but slightly less, he did have a bowel movement, he states his breathing is improving, no acute distress, 0.9 normal seen at a rate of 100 ML per hour. 2 L of oxygen and the pulse ox of 95%, afebrile. His get some shortness of breath with ambulation, but otherwise in no acute distress. Today's labs have been reviewed, and showed a white blood cell count of 9.0, hemoglobin is 10.5, electrolytes and renal profile were unremarkable. NG tube has been discontinued per surgery, there has been no nausea, or vomiting. He is tolerating liquids without difficulty. He is passing flatus. He denies any abdominal pain. Surgery is following. he is hoping to be able to go home either today or tomorrow. All culture data including blood, urine culture showed no growth, sputum culture is pending. Preliminary Gram stain showed rare gram-positive cocci, rare gram-negative bacilli. On 11/03/2018 patient is seen in follow-up on selective care unit, he is awake and alert, he sitting up in the recliner on 2 L of oxygen his pulse ox is 90- 96%, he is afebrile, hemodynamically patient is stable. Early yesterday patient had mental status changes, confusion, and patient would speak and sometimes does not make sense. This was noted to be worse while patient has been in the hospital. Serum ammonia level was obtained, and was normal at less than 9. Brain CT was obtained, and showed old right frontal lobe infarct, and mild atrophy. His abdomen remains distended but improved, and there is has been no nausea, vomiting or diarrhea. Patient was also found to be as a for hepatitis C reactive antibody, GI service has been consulted. Follow-up chest x-ray today has been reviewed by Dr. Burnett, and shows bilateral airspace disease. Her culture was positive for beta hemolytic strep beta hemolytic strep group C, Irena glabrata Irena albicans. Current antibiotic coverage is with the Zosyn and Zithromax, and ID service has been consulted. Sounds reveal diminished breath sounds bilaterally. Patient denies any chest pain, denies any cough or congestion. Objective - Vital Signs Vital signs: Vital Signs Temp 98.3 F 11/03/18 12:00 Pulse 86 11/03/18 17:07 Resp 16 11/03/18 16:49 BP 115/70 11/03/18 15:55 Pulse Ox 90 L 11/03/18 16:49 Intake & Output 11/02/18 11/03/18 11/03/18 18:59 06:59 18:59 Intake Total 2460 2700 Output Total 1375 300 880 Balance 1085 -300 1820 Weight 98.5 kg Intake: Intake, IV Titration 900 1900 Amount Piperacillin-Tazobactam 3 100 100 .375 gm In Sodium Chloride 0.9% 100 ml @ 25 mls/hr IVPB Q8HR [facility] Rx# :[id number] Sodium Chloride 0.9% 1, 800 1800 000 ml @ 100 mls/hr IV . Q10H [facility] Rx#:[id number] Oral 1560 800 Output: Urine 1375 300 880 Other: Voiding Method Toilet Urinal # Voids 1 5 - Exam GENERAL EXAM: Alert, pleasant, 58-year-old white male, on 3 L of oxygen comfortable in no apparent distress. HEAD: Normocephalic/atraumatic. EYES: Normal reaction of pupils, equal size. Conjunctiva pink, sclera white. NOSE: Clear with pink turbinates. THROAT: No erythema or exudates. NECK: No masses, no JVD, no thyroid enlargement, no adenopathy. CHEST: No chest wall deformity. Symmetrical expansion. LUNGS: Equal air entry with no crackles, wheeze, rhonchi or dullness. CVS: Regular rate and rhythm, normal S1 and S2, no gallops, no murmurs, no rubs ABDOMEN: Soft, nontender, distended. No hepatosplenomegaly, normal bowel sounds, no guarding or rigidity. EXTREMITIES: No clubbing, no edema, no cyanosis, 2+ pulses and upper and lower extremities. MUSCULOSKELETAL: Muscle strength and tone normal. SPINE: No scoliosis or deformity SKIN: No rashes CENTRAL NERVOUS SYSTEM: Alert and oriented -3. No focal deficits, tone is normal in all 4 extremities. PSYCHIATRIC: Alert and oriented -3. Appropriate affect. Intact judgment and insight. - Labs CBC & Chem 7: 11/03/18 06:21 11/03/18 06:21 Labs: Abnormal Lab Results - Last 24 Hours (Table) 11/02/18 11/02/18 11/02/18 Range/Units 10:45 10:45 20:48 RBC (4.30-5.90) m/uL Hgb (13.0-17.5) gm/dL Hct (39.0-53.0) % MCHC (31.0-37.0) g/dL RDW (11.5-15.5) % Plt Count (150-450) k/uL POC Glucose (mg/dL) 130 H (75-99) mg/dL Albumin (3.5-5.0) g/dL Rheumatoid Factor 17 H (0-15) IU/mL Free [place] LC, Quant 6.81 H (0.33-1.94) mg/dL Free Lambda LC, Quant 3.65 H (0.57-2.63) mg/dL Hep C IgG Ab Reactive H (Non-Reactive) Hepatitis C Viral RNA DETECTED H (Not detected) IU/mL Hepatitis C RNA Quant 3,789,657 H (<12) IU/mL HCV RNA PCR log IUs/ml 6.58 H (<1.08) 11/03/18 11/03/18 11/03/18 Range/Units 06:20 06:21 06:21 RBC 3.64 L (4.30-5.90) m/uL Hgb 10.6 L (13.0-17.5) gm/dL Hct 34.6 L (39.0-53.0) % MCHC 30.6 L (31.0-37.0) g/dL RDW 19.0 H (11.5-15.5) % Plt Count 145 L (150-450) k/uL POC Glucose (mg/dL) 100 H (75-99) mg/dL Albumin 3.4 L (3.5-5.0) g/dL Rheumatoid Factor (0-15) IU/mL Free [place] LC, Quant (0.33-1.94) mg/dL Free Lambda LC, Quant (0.57-2.63) mg/dL Hep C IgG Ab (Non-Reactive) Hepatitis C Viral RNA (Not detected) IU/mL Hepatitis C RNA Quant (<12) IU/mL HCV RNA PCR log IUs/ml (<1.08) 11/03/18 11/03/18 11/03/18 Range/Units 11:34 16:11 16:31 RBC (4.30-5.90) m/uL Hgb (13.0-17.5) gm/dL Hct (39.0-53.0) % MCHC (31.0-37.0) g/dL RDW (11.5-15.5) % Plt Count (150-450) k/uL POC Glucose (mg/dL) 133 H 62 L 102 H (75-99) mg/dL Albumin (3.5-5.0) g/dL Rheumatoid Factor (0-15) IU/mL Free [place] LC, Quant (0.33-1.94) mg/dL Free Lambda LC, Quant (0.57-2.63) mg/dL Hep C IgG Ab (Non-Reactive) Hepatitis C Viral RNA (Not detected) IU/mL Hepatitis C RNA Quant (<12) IU/mL HCV RNA PCR log IUs/ml (<1.08) Microbiology - Last 24 Hours (Table) 10/31/18 12:54 Gram Stain - Final Sputum Sputum Culture - Final Irena albicans Irena glabrata Beta Hemolytic Strep Group C 10/30/18 17:45 Blood Culture - Preliminary Blood No Growth after 72 hours Assessment and Plan Plan: Assessment: 1 acute bilateral lower lobe pneumonia left more than right with airspace disease and secondary shortness of breath, urine culture showed evidence ofBeta hemolytic strep group C, Irena glabrata and Irena albicans Consider aspir ation pneumonia post endoscopy/EGD. Doing well and the patient is well covered with accommodation Zosyn and Zithromax. No signs of any worsening on clinical grounds. The abdomen was deflated and the patient has an NG tube in place regarding his chronic and ongoing abdominal distention. 2 nonspecific enlarged hilar and based on lymph node, chronicity is not known, will need to be addressed at a later stage after clearing of the pneumonia 3 acute febrile illness secondary to above, recovered and the patient is currently afebrile. 4 chronic abdominal distention with a CAT scan of the abdomen and pelvis showing massive distention of the stomach and portions of the duodenum, general surgeri es on the case and the patient has an NG tube in place. The patient also has a small umbilical hernia and ventral hernia which is easily reducible. On examination, the patient's abdomen is less distended compared to yesterday. NG tube is in place. He did have a bowel movement yesterday. General surgeries on the case. 5 COPD 6 peripheral vascular disease with previous angioplasty of the left SFA 7 diabetes mellitus 8 infrarenal aortic dissection, stable 9 hypertension 10 hyperlipidemia 11 seizure disorder on Keppra 12 history of chronic back pain currently on a pain pump 13 nicotine dependence 14 colonic diverticulosis 15 altered mentation likely related to metabolic encephalopathy 16 hepatitis C antibody positive Plan: We will chest x-ray has been reviewed by Dr. Burnett, and shows bilateral infiltrates but there is been some improvement in the appearance of the left basilar infiltrate. There has been no fever or chills, sputum culture data has been noted, ID service is following, and managing the antibiotics. Vital signs are stable, no cough or congestion, no worsening shortness of breath. Continue with current medical treatment. I performed a history & physical examination of the patient and discussed their management with my nurse practitioner, Kimber Pang. I reviewed the nurse practitioner's note and agree with the documented findings and plan of care. Lung sounds are positive for diminished breath sounds bilaterally . The findings and the impression was discussed with the patient. I attest to the documentation by the nurse practitioner. Time with Patient: Less than 30
[2018-11-03 20:49] LABS: Glucose,Whole Blood 154 mg/dL (75-99)
[2018-11-03] MEDS: HEPARIN SODIUM,PORCINE 5,000 UNIT/ML 1 ML VIAL SQ SCH (21:23)
[2018-11-04 06:14] LABS: Glucose,Whole Blood 90 mg/dL (75-99)
[2018-11-04 06:29] LABS: Anisocytosis Slight; Basophils % (A) 0 %; Eosinophils # (A) 0.2 k/uL (0-0.7); Eosinophils % (A) 3 %; HCT 33.2 % (39.0-53.0); HGB 10.3 gm/dL (13.0-17.5); Hypochromasia Moderate; Lymphocytes # (A) 1.1 k/uL (1.0-4.8); Lymphocytes % (A) 15 %; MCH 29.5 pg (25.0-35.0); MCHC 30.9 g/dL (31.0-37.0); MCV 95.2 fL (80.0-100.0); Macrocytosis Slight; Mean Platelet Volume 7.3; Monocytes # (A) 0.3 k/uL (0-1.0); Monocytes % (A) 5 %; Neutrophils # (A) 5.2 k/uL (1.3-7.7); Neutrophils % (A) 75 %; Platelet Count 135 k/uL (150-450); RBC 3.49 m/uL (4.30-5.90); RDW 18.5 % (11.5-15.5)
[2018-11-04] MEDS: INSULIN ASPART (NovoLOG) 100 UNIT/ML VIAL SQ SCH ×4 (06:31→20:42)
[2018-11-04 06:37] LABS: ALT 21 U/L (21-72); AST 41 U/L (17-59); Albumin 3.4 g/dL (3.5-5.0); Alkaline Phosphatase 105 U/L (38-126); Anion Gap 7 mmol/L; Blood Urea Nitrogen 8 mg/dL (9-20); Calcium 8.6 mg/dL (8.4-10.2); Carbon Dioxide 28 mmol/L (22-30); Chloride 102 mmol/L (98-107); Glucose 90 mg/dL (74-99); Potassium 4.6 mmol/L (3.5-5.1); Sodium 137 mmol/L (137-145); Total Bilirubin 0.7 mg/dL (0.2-1.3); Total Protein 7.2 g/dL (6.3-8.2)
[2018-11-04] MEDS: IPRATROPIUM-ALBUTEROL 3 ML NEB INHALATION SCH ×4 (08:17→19:47)
[2018-11-04] MEDS: CYCLOBENZAPRINE 5 MG TAB PO SCH ×3 (08:39→22:43)
[2018-11-04] MEDS: AZITHROMYCIN 500 MG TAB PO SCH (08:39)
[2018-11-04] MEDS: PREGABALIN 75 MG CAP PO SCH ×2 (08:39→20:35)
[2018-11-04] MEDS: ASPIRIN 81 MG PO SCH (08:39)
[2018-11-04] MEDS: levETIRAcetam 500 MG TAB PO SCH ×2 (08:39→20:35)
[2018-11-04] MEDS: FOLIC ACID 1 MG TAB PO SCH (08:40)
[2018-11-04] MEDS: LISINOPRIL 5 MG TAB PO SCH (08:40)
[2018-11-04] MEDS: MULTIVITAMINS, THERA 1 EACH TAB PO SCH (08:40)
[2018-11-04] MEDS: PARoxetine 20 MG TAB PO SCH (08:40)
[2018-11-04] MEDS: TAMSULOSIN 0.4 MG CAP.ER.24H PO SCH (08:40)
[2018-11-04] MEDS: SERTRALINE 100 MG TAB PO SCH (08:40)
[2018-11-04] MEDS: FERROUS SULFATE 325 MG TAB PO SCH (08:40)
[2018-11-04] MEDS: FUROSEMIDE 20 MG TAB PO SCH (08:41)
[2018-11-04] MEDS: PIPERACILLIN-TAZOBACTAM 3.375 GM in SODIUM CHLORIDE 0.9% 100 ML IVPB SCH ×2 (08:41→16:11)
[2018-11-04] MEDS: NICOTINE 14MG/24HR PATCH TRANSDERM SCH (08:41)
[2018-11-04] MEDS: PANTOPRAZOLE 40 MG/10 ML VIAL IVP SCH (08:42)
[2018-11-04] MEDS: HEPARIN SODIUM,PORCINE 5,000 UNIT/ML 1 ML VIAL SQ SCH ×2 (08:45→20:35)
[2018-11-04] MEDS: MAGNESIUM OXIDE 400 MG TAB PO SCH ×2 (08:45→20:35)
[2018-11-04] MEDS: OXYBUTYNIN XL 5 MG TAB.ER.24 PO SCH (08:45)
[2018-11-04] MEDS: NON-FORMULARY DRUG (Liraglutide [Victoza 2-Pak] 1.8 MG) SQ SCH (08:46)
[2018-11-04] MEDS: INSULIN DETEMIR (LEVEMIR) 100 UNIT/ML SYR SQ SCH (09:07)
--- NOTE | 2018-11-04 09:45 | P.PN ---
Subjective Progress Note Date: 11/04/18 Patient continues to appear delirious. Denies any focal symptoms. Patient appears tremulous. Objective - Vital Signs Vital signs: Vital Signs Temp 98.2 F 11/04/18 08:49 Pulse 83 11/04/18 08:49 Resp 16 11/04/18 08:49 BP 119/64 11/04/18 08:49 Pulse Ox 92 L 11/04/18 08:49 Intake & Output 11/03/18 11/04/18 11/04/18 18:59 06:59 18:59 Intake Total 3300 Output Total 880 800 Balance 2420 -800 Weight 95.2 kg Intake: Intake, IV Titration 1900 Amount Piperacillin-Tazobactam 3 100 .375 gm In Sodium Chloride 0.9% 100 ml @ 25 mls/hr IVPB Q8HR [facility] Rx# :[id number] Sodium Chloride 0.9% 1, 1800 000 ml @ 100 mls/hr IV . Q10H [facility] Rx#:[id number] Oral 1400 Output: Urine 880 800 Other: Voiding Method Toilet Toilet Toilet Urinal Urinal Urinal # Voids 5 - Exam Patient knows exact month october in the year is 19. States he is in [facility] in [place] and in [facility]. Muscle strength is normal. He appears slightly tremulous of outstretched hands. Attention span, concentration is decreased. Muscle strength is normal. Visual barajas are full. He has angular chelosis - Labs CBC & Chem 7: 11/04/18 06:07 11/04/18 06:07 Labs: Abnormal Lab Results - Last 24 Hours (Table) 11/02/18 11/02/18 11/03/18 Range/Units 10:45 10:45 11:34 RBC (4.30-5.90) m/uL Hgb (13.0-17.5) gm/dL Hct (39.0-53.0) % MCHC (31.0-37.0) g/dL RDW (11.5-15.5) % Plt Count (150-450) k/uL BUN (9-20) mg/dL POC Glucose (mg/dL) 133 H (75-99) mg/dL Albumin (3.5-5.0) g/dL Free [place] LC, Quant 6.81 H (0.33-1.94) mg/dL Free Lambda LC, Quant 3.65 H (0.57-2.63) mg/dL Hepatitis C Viral RNA DETECTED H (Not detected) IU/mL Hepatitis C RNA Quant 3,789,657 H (<12) IU/mL HCV RNA PCR log IUs/ml 6.58 H (<1.08) 11/03/18 11/03/18 11/03/18 Range/Units 16:11 16:31 20:47 RBC (4.30-5.90) m/uL Hgb (13.0-17.5) gm/dL Hct (39.0-53.0) % MCHC (31.0-37.0) g/dL RDW (11.5-15.5) % Plt Count (150-450) k/uL BUN (9-20) mg/dL POC Glucose (mg/dL) 62 L 102 H 154 H (75-99) mg/dL Albumin (3.5-5.0) g/dL Free [place] LC, Quant (0.33-1.94) mg/dL Free Lambda LC, Quant (0.57-2.63) mg/dL Hepatitis C Viral RNA (Not detected) IU/mL Hepatitis C RNA Quant (<12) IU/mL HCV RNA PCR log IUs/ml (<1.08) 11/04/18 11/04/18 Range/Units 06:07 06:07 RBC 3.49 L (4.30-5.90) m/uL Hgb 10.3 L (13.0-17.5) gm/dL Hct 33.2 L (39.0-53.0) % MCHC 30.9 L (31.0-37.0) g/dL RDW 18.5 H (11.5-15.5) % Plt Count 135 L (150-450) k/uL BUN 8 L (9-20) mg/dL POC Glucose (mg/dL) (75-99) mg/dL Albumin 3.4 L (3.5-5.0) g/dL Free [place] LC, Quant (0.33-1.94) mg/dL Free Lambda LC, Quant (0.57-2.63) mg/dL Hepatitis C Viral RNA (Not detected) IU/mL Hepatitis C RNA Quant (<12) IU/mL HCV RNA PCR log IUs/ml (<1.08) Microbiology - Last 24 Hours (Table) 10/30/18 17:45 Blood Culture - Preliminary Blood No Growth after 96 hours 10/31/18 12:54 Gram Stain - Final Sputum Sputum Culture - Final Irena albicans Irena glabrata Beta Hemolytic Strep Group C Assessment and Plan Assessment: * Mild confusional state, with some delusions, probably due to delirium. No fo charla symptoms reported. Examination is nonfocal. * Pneumonia * History of CVA with no residual deficits. * Seizure disorder, currently in remission. * Hepatitis C positive * Type 2 diabetes * Tobacco user Plan: * Patient's delirium hopefully will improve once his pneumonia comes under control * We will check B12, folate, TSH, RPR, B6, B1 level. * Hemoglobin A1c 7.6 * We'll start empirically on vitamin B1/thiamine 100 mg daily. * We will follow patient clinically. * Recommended tobacco cessation.
--- NOTE | 2018-11-04 09:52 | P.PN ---
Progress Note - Text Progress Note Date: 11/04/18 Also realized patient is on dual SSRIs including sertraline 100 mg daily, and Paxil 20 mg daily. Patient at risk for serotonin syndrome. Will stop Paxil.
--- NOTE | 2018-11-04 10:19 | P.PN ---
Subjective Progress Note Date: 11/04/18 This is a 58-year-old male patient of Dr. Whitlock. Patient presented with complaints of shortness of breath. Patient states that over the past 2 days he has Had increased sputum production and fever. Patient reports that approximately 6 days ago he underwent EGD to investigate anemia with Dr. Loraine huang. Patient denies any recent abdominal pain nausea or vomiting. Patient reports he has been having normal bowel movements. Patient has past medical history of COPD, CVA, diabetes mellitus, hyperlipidemia, hypertension, memory impairment, seizure disorder, PainPump, anemia, anxiety, depression, nicotine dependence. Patient also recently underwent balloon angioplasty of the left SFA and maintained on Plavix. Diffuse increased interstitial markings. No focal airspace disease. Large amount of gastric or bowel contents partially visualized. Abdominal x-ray completed showing stomach is massively distended with a large amount of food material. CT of abdomen and pelvis completed showing multifocal bilateral predominantly basal basilar airspace disease. Enlarged hilar or mediastinal lymph nodes are also present. Multifocal pneumonia is favored. Massively distended stomach dilation of the first second and third portions of the duodenum. No definitive transition point is identified at adjusting of focal obstruction. Splenomegaly. Chronic appearing infrarenal abdominal aortic dissection with a focal areas. Postsurgical changes of the spine. EKG completed showing sinus tachycardia. Chest x-ray completed showing basal atelectasis, correlate for pneumonia. Patient's mediastinal adeno he is not evident on plain film. Patient had temperature 104.5 on admission. UA negative. Blood negative. Group B strep negative. Sputum, blood and urine cultures ordered. Pulmonary service is consulted. Patient started on Rocephin and azithromycin. Surgical services also consulted. At this time patient's abdomen significantly distended. Patient states that this is normal for him and he is not complaining of any specific pain or discomfort. Patient denies nausea vomiting or diarrhea. Patient denies any chest pain. Patient denies any urinary burning or frequency On 11/01/2018 patient is alert and oriented 3. Abdomen was distended today. NG tube remains in place. Patient reports he had normal BM last night. Antibiotics Zosyn and azithromycin for possible aspiration pneumonia per pulmonary. Infectious disease also consulted. At this time patient denies chest pain. Patient does report cough but denies shortness of breath. Patient denies nausea vomiting or diarrhea. Patient denies any urinary burning or frequency On 11/02/2018 patient's alert and oriented 3. Abdomen is less distended today. NG tube has been placed per surgical team. Oncology services have been consulted for enlarged spleen. Patient remains on Zosyn and azithromycin for aspiration pneumonia. At this time patient denies chest pain. Patient denies nausea vomiting or diarrhea. Patient denies any urinary burning or frequency On 11/03/2018 patient is alert and oriented 3 but does not appear to clearly understand the severity of his sickness. Per nursing staff patient's has expressed that patient has been "off" for the past couple days prior to hospitalization. This time will obtain head CT, ammonia level and consult neurology. Patient denies any chest pain or shortness of breath. Abdomen remains distended but improved. Patient denies any nausea vomiting or diarrhea. Patient denies any urinary burning or frequency 11/04/2018 patient is alert and oriented. Patient was evaluated by neurology services. Head was completed. At this time patient is on antibiotics for pneumonia. Patient denies chest pain or shortness of breath. Patient remains on liters nasal cannula. Patient denies nausea vomiting or diarrhea. Abdomen remains lightly distended services have signed off. Patient denies any urinary burning or frequency Objective - Vital Signs Vital signs: Vital Signs Temp 98.2 F 11/04/18 08:49 Pulse 83 11/04/18 08:49 Resp 16 11/04/18 08:49 BP 119/64 11/04/18 08:49 Pulse Ox 92 L 11/04/18 08:49 Intake & Output 11/03/18 11/04/18 11/04/18 18:59 06:59 18:59 Intake Total 3300 Output Total 880 800 Balance 2420 -800 Weight 95.2 kg Intake: Intake, IV Titration 1900 Amount Piperacillin-Tazobactam 3 100 .375 gm In Sodium Chloride 0.9% 100 ml @ 25 mls/hr IVPB Q8HR [facility] Rx# :[id number] Sodium Chloride 0.9% 1, 1800 000 ml @ 100 mls/hr IV . Q10H [facility] Rx#:[id number] Oral 1400 Output: Urine 880 800 Other: Voiding Method Toilet Toilet Toilet Urinal Urinal Urinal # Voids 5 - Exam Head normocephalic Neck supple Lungs diminished bilaterally Heart regular rate and rhythm S1-S2, no rub or gallop Abdomen hard distended nontender abdomen Extremities no edema Neuro alert and orientated to 3 - Labs CBC & Chem 7: 11/04/18 06:07 11/04/18 06:07 Labs: Abnormal Lab Results - Last 24 Hours (Table) 11/02/18 11/02/18 11/03/18 Range/Units 10:45 10:45 11:34 RBC (4.30-5.90) m/uL Hgb (13.0-17.5) gm/dL Hct (39.0-53.0) % MCHC (31.0-37.0) g/dL RDW (11.5-15.5) % Plt Count (150-450) k/uL BUN (9-20) mg/dL POC Glucose (mg/dL) 133 H (75-99) mg/dL Albumin (3.5-5.0) g/dL Free [place] LC, Quant 6.81 H (0.33-1.94) mg/dL Free Lambda LC, Quant 3.65 H (0.57-2.63) mg/dL Hepatitis C Viral RNA DETECTED H (Not detected) IU/mL Hepatitis C RNA Quant 3,789,657 H (<12) IU/mL HCV RNA PCR log IUs/ml 6.58 H (<1.08) 11/03/18 11/03/18 11/03/18 Range/Units 16:11 16:31 20:47 RBC (4.30-5.90) m/uL Hgb (13.0-17.5) gm/dL Hct (39.0-53.0) % MCHC (31.0-37.0) g/dL RDW (11.5-15.5) % Plt Count (150-450) k/uL BUN (9-20) mg/dL POC Glucose (mg/dL) 62 L 102 H 154 H (75-99) mg/dL Albumin (3.5-5.0) g/dL Free [place] LC, Quant (0.33-1.94) mg/dL Free Lambda LC, Quant (0.57-2.63) mg/dL Hepatitis C Viral RNA (Not detected) IU/mL Hepatitis C RNA Quant (<12) IU/mL HCV RNA PCR log IUs/ml (<1.08) 11/04/18 11/04/18 Range/Units 06:07 06:07 RBC 3.49 L (4.30-5.90) m/uL Hgb 10.3 L (13.0-17.5) gm/dL Hct 33.2 L (39.0-53.0) % MCHC 30.9 L (31.0-37.0) g/dL RDW 18.5 H (11.5-15.5) % Plt Count 135 L (150-450) k/uL BUN 8 L (9-20) mg/dL POC Glucose (mg/dL) (75-99) mg/dL Albumin 3.4 L (3.5-5.0) g/dL Free [place] LC, Quant (0.33-1.94) mg/dL Free Lambda LC, Quant (0.57-2.63) mg/dL Hepatitis C Viral RNA (Not detected) IU/mL Hepatitis C RNA Quant (<12) IU/mL HCV RNA PCR log IUs/ml (<1.08) Microbiology - Last 24 Hours (Table) 10/30/18 17:45 Blood Culture - Preliminary Blood No Growth after 96 hours 10/31/18 12:54 Gram Stain - Final Sputum Sputum Culture - Final Irena albicans Irena glabrata Beta Hemolytic Strep Group C Assessment and Plan Assessment: 1. Acute bilateral lower lobe pneumonia. CT of chest showing multifocal bilateral predominantly bibasilar airspace disease. Enlarged hilar or mediastinal lymph nodes are also present. Multifocal pneumonia is favored. Dr. gan has been consulted for pulmonary care. Patient had temperature 104.5 on admission. Blood urine and sputum cultures have been ordered. Per pulmonary services consider possible aspiration pneumonia post EGD. Patient currently on Zosyn and Zithromax. Urine culture positive for Irena albicans Irena glabrata beta hemolytic strep group C. Infectious disease following. 2. Abdominal distention. CT of abdomen and pelvis completed showing massively distended stomach with dilation of the first, second and third portions of the duodenum. No definitive transition point is identified suggesting focal obstruction. Surgical services have been consulted. NG tube has been placed patient made nothing by mouth. Abdominal x-ray completed showing antritis, fecal stasis. Upper GI x-ray completed showing delayed filling of the colon and into small bowel with persistent dilated small bowel loops to the level the distal ileum. Partial obstruction in the differential diagnoses correlate clinically. NG tube has been removed per surgical services 3. Recent EGD and colonoscopy with Dr. Santiago 6 days ago. Results showing antral gastritis, transverse colon polyp and mild diverticulosis 4. Recent balloon angioplasty to left SFA in July [address] Degroot. Plavix and aspirin on hold due to splenomegaly 5. History of COPD 6. History of diabetes mellitus. Metformin on hold. Home meds resumed sliding scale coverage ordered. Hemoglobin A1c 7.6 7. History of hyperlipidemia 8. History of essential hypertension 9. Seizure disorder patient maintained on Keppra 10. History of chronic pain with pain pump 11. Nicotine dependence. Nicotine patch ordered 12. History of anxiety and depression 13. Infrarenal aortic dissection, stable. Dr. Vick consulted Plavix and aspirin currently on hold. Per Dr. Vick with vascular services abdominal aortic aneurysm is stable. Patient will need close following upon discharge follow-up in office in one month. 14. Iron deficiency anemia. She recently underwent EGD and colonoscopy with Dr. Santiago. maintained on ferrous sulfate. Hemoglobin 10.2 15. Splenomegaly. Oncology service is consulted. ultrasound of abdomen ordered, Additional lab work ordered. Per GI services splenomegaly suspected related to possible underlining chronic liver disease possibly chronic HCV 16. Increased confusion. Head CT completed showing old right frontal lobe infarct. Mild atrophy. Ammonia less than 9. Per neurology services patient is on both sertraline and Paxil high risk for serotonin syndrome. Paxil DC'd per neurology. Per neurology mild confusional state likely due to delirium we'll continue to monitor hopefully improves when pneumonia comes under control per neurology 19. Hepatitis C antibiotic positive in blood. GI services following. Per GI services will need to obtain quantitative measurement in genotype positive patient seen with outpatient evaluation and discussion of antiviral therapy follow-up outpatient office 3-4 weeks. . DVT prophylaxis heparin. GI prophylaxis Protonix I performed an examination of the patient and discussed their management with the Nurse Practitioner. I have reviewed the Nurse Practitioner's notes and agree with the documented findings and plan of care
--- NOTE | 2018-11-04 11:45 | P.PN ---
Subjective Progress Note Date: 11/04/18 Principal diagnosis: Hepatosplenomegaly hepatitis C reactive antibody Quantitative HCV detected. Genotype pending. No abdominal complaints. AFP pending. LFTs within normal limits. Objective - Vital Signs Vital signs: Vital Signs Temp 98.2 F 11/04/18 08:49 Pulse 83 11/04/18 08:49 Resp 16 11/04/18 08:49 BP 119/64 11/04/18 08:49 Pulse Ox 92 L 11/04/18 08:49 Intake & Output 11/03/18 11/04/18 11/04/18 18:59 06:59 18:59 Intake Total 3300 Output Total 880 800 Balance 2420 -800 Weight 95.2 kg Intake: Intake, IV Titration 1900 Amount Piperacillin-Tazobactam 3 100 .375 gm In Sodium Chloride 0.9% 100 ml @ 25 mls/hr IVPB Q8HR [facility] Rx# :[id number] Sodium Chloride 0.9% 1, 1800 000 ml @ 100 mls/hr IV . Q10H [facility] Rx#:[id number] Oral 1400 Output: Urine 880 800 Other: Voiding Method Toilet Toilet Toilet Urinal Urinal Urinal # Voids 5 - Exam General appearance: The patient is alert, oriented, in no acute distress. HET: Head is normocephalic and atraumatic. Pupils are equal and reactive. Oropharynx is clear without lesions. Neck: Supple without lymphadenopathy. Trachea midline. Heart: S1 S2. Regular rate and rhythm. Lungs: Diminished in bases bilaterally.. Abdomen: Soft, nontender, nondistended with bowel sounds. No peritoneal signs. No palpable organomegaly or masses. Extremities: Normal skin color and turgor. No cyanosis, rash, ulceration, clubbing, or edema. Radial and pedal pulses are 2/4 bilaterally. Neurological: No focal deficits. Strength and sensation are grossly intact. - Labs CBC & Chem 7: 11/04/18 06:07 11/04/18 06:07 Labs: Abnormal Lab Results - Last 24 Hours (Table) 11/02/18 11/02/18 11/03/18 Range/Units 10:45 10:45 11:34 RBC (4.30-5.90) m/uL Hgb (13.0-17.5) gm/dL Hct (39.0-53.0) % MCHC (31.0-37.0) g/dL RDW (11.5-15.5) % Plt Count (150-450) k/uL BUN (9-20) mg/dL POC Glucose (mg/dL) 133 H (75-99) mg/dL Albumin (3.5-5.0) g/dL Free [place] LC, Quant 6.81 H (0.33-1.94) mg/dL Free Lambda LC, Quant 3.65 H (0.57-2.63) mg/dL Hepatitis C Viral RNA DETECTED H (Not detected) IU/mL Hepatitis C RNA Quant 3,789,657 H (<12) IU/mL HCV RNA PCR log IUs/ml 6.58 H (<1.08) 11/03/18 11/03/18 11/03/18 Range/Units 16:11 16:31 20:47 RBC (4.30-5.90) m/uL Hgb (13.0-17.5) gm/dL Hct (39.0-53.0) % MCHC (31.0-37.0) g/dL RDW (11.5-15.5) % Plt Count (150-450) k/uL BUN (9-20) mg/dL POC Glucose (mg/dL) 62 L 102 H 154 H (75-99) mg/dL Albumin (3.5-5.0) g/dL Free [place] LC, Quant (0.33-1.94) mg/dL Free Lambda LC, Quant (0.57-2.63) mg/dL Hepatitis C Viral RNA (Not detected) IU/mL Hepatitis C RNA Quant (<12) IU/mL HCV RNA PCR log IUs/ml (<1.08) 11/04/18 11/04/18 Range/Units 06:07 06:07 RBC 3.49 L (4.30-5.90) m/uL Hgb 10.3 L (13.0-17.5) gm/dL Hct 33.2 L (39.0-53.0) % MCHC 30.9 L (31.0-37.0) g/dL RDW 18.5 H (11.5-15.5) % Plt Count 135 L (150-450) k/uL BUN 8 L (9-20) mg/dL POC Glucose (mg/dL) (75-99) mg/dL Albumin 3.4 L (3.5-5.0) g/dL Free [place] LC, Quant (0.33-1.94) mg/dL Free Lambda LC, Quant (0.57-2.63) mg/dL Hepatitis C Viral RNA (Not detected) IU/mL Hepatitis C RNA Quant (<12) IU/mL HCV RNA PCR log IUs/ml (<1.08) Microbiology - Last 24 Hours (Table) 10/30/18 17:45 Blood Culture - Preliminary Blood No Growth after 96 hours 10/31/18 12:54 Gram Stain - Final Sputum Sputum Culture - Final Irena albicans Irena glabrata Beta Hemolytic Strep Group C Assessment and Plan (1) Chronic hepatitis C virus infection Current Visit: Yes Status: Acute Code(s): B18.2 - CHRONIC VIRAL HEPATITIS C SNOMED Code(s): 222185488 (2) Hepatitis C antibody positive in blood Current Visit: Yes Status: Acute Code(s): R76.8 - OTHER SPECIFIED ABNORMAL IMMUNOLOGICAL FINDINGS IN SERUM SNOMED Code(s): 968076996 (3) Splenomegaly Narrative/Plan: Suspect related to possible underlying chronic liver disease possible chronic HCV. Current Visit: Yes Status: Acute Priority: High Code(s): R16.1 - SPLENOMEGALY, NOT ELSEWHERE CLASSIFIED SNOMED Code(s): 55676313 (4) Pneumonia Current Visit: Yes Status: Acute Code(s): J18.9 - PNEUMONIA, UNSPECIFIED ORGANISM SNOMED Code(s): 069302553 Plan: 1. HCV results continue with patient. Advised to follow up in office in 2-3 weeks for reevaluation discussion of outpatient antiviral therapy HCC screening. Assessment and plan a care discussed with Dr. Chua
[2018-11-04 11:48] LABS: Glucose,Whole Blood 152 mg/dL (75-99)
[2018-11-04] MEDS: THIAMINE 100 MG TAB PO SCH (12:45)
[2018-11-04] MEDS: SODIUM CHLORIDE 0.9% 1,000 ML IV SCH ×2 (12:45→20:35)
[2018-11-04 14:28] VITALS: BMI 32.8
--- NOTE | 2018-11-04 15:35 | P.PN ---
Subjective Progress Note Date: 11/04/18 Principal diagnosis: Acute bilateral lower lobe pneumonia left greater than the right, aspiration pneumonia. On today's evaluation of 11/01/2018, the patient is doing better compared to yesterday. NG tube is in place. Abdomen is morbidly flatus yet there is still tympany in the stomach region and in the left upper quadrant. No nausea. No vomiting. He did have a bowel movement yesterday. He is nothing by mouth for now. General surgeries on the case. Meanwhile, the patient is on a combination of antibiotics with Zithromax and Zosyn. He was able to give us a sputum s ample. His cough is congested. No stiffness to distress. No fever or chills. The second is not elevated at 7.9. Rest of the blood work is all within normal limits. Hemoglobin is at 10.2. On 11/02/2017 patient seen in follow-up on selective care unit, he is awake and alert, in no acute distress, his abdomen still distended, but slightly less, he did have a bowel movement, he states his breathing is improving, no acute distress, 0.9 normal seen at a rate of 100 ML per hour. 2 L of oxygen and the pulse ox of 95%, afebrile. His get some shortness of breath with ambulation, but otherwise in no acute distress. Today's labs have been reviewed, and showed a white blood cell count of 9.0, hemoglobin is 10.5, electrolytes and renal profile were unremarkable. NG tube has been discontinued per surgery, there has been no nausea, or vomiting. He is tolerating liquids without difficulty. He is passing flatus. He denies any abdominal pain. Surgery is following. he is hoping to be able to go home either today or tomorrow. All culture data including blood, urine culture showed no growth, sputum culture is pending. Preliminary Gram stain showed rare gram-positive cocci, rare gram-negative bacilli. On 11/03/2018 patient is seen in follow-up on selective care unit, he is awake and alert, he sitting up in the recliner on 2 L of oxygen his pulse ox is 90- 96%, he is afebrile, hemodynamically patient is stable. Early yesterday patient had mental status changes, confusion, and patient would speak and sometimes does not make sense. This was noted to be worse while patient has been in the hospital. Serum ammonia level was obtained, and was normal at less than 9. Brain CT was obtained, and showed old right frontal lobe infarct, and mild atrophy. His abdomen remains distended but improved, and there is has been no nausea, vomiting or diarrhea. Patient was also found to be as a for hepatitis C reactive antibody, GI service has been consulted. Follow-up chest x-ray today has been reviewed by Dr. Burnett, and shows bilateral airspace disease. Her culture was positive for beta hemolytic strep beta hemolytic strep group C, Irena glabrata Irena albicans. Current antibiotic coverage is with the Zosyn and Zithromax, and ID service has been consulted. Sounds reveal diminished breath sounds bilaterally. Patient denies any chest pain, denies any cough or congestion. On 11/04/2018 patient seen in follow-up on selective care unit. He is awake and alert, is confused, maintaining good oxygenation on 3 L of oxygen and his pulse ox is 95%, afebrile, hemodynamically stable, denies any shortness of breath, no cough or congestion, yesterday follow-up chest x-ray was reviewed and shows bilateral airspace disease, and patient continues on Zosyn and Zithromax for a positive sputum culture with the beta hemolytic strep group C, Irena glabrata and Irena albicans. ID service is following, lung sounds reveal diminished breath sounds bilaterally. Denies any chest pain, denies any chest congestion or phlegm production. he is voiding, he only had 1 bowel movement 4 days ago, he is on full liquid diet, no nausea or vomiting, he denies any abdominal complaints. Lower cuts of the chest x-ray revealed retained oral contrast, and vision is still suspected to have fecal impaction, ileus, or partial obstruction. We'll reconsult surgery. From pulmonary perspective patient is stable, recent shortness of breath, ejection is actually improving. No fever or chills. Objective - Vital Signs Vital signs: Vital Signs Temp 97.8 F 11/04/18 12:11 Pulse 72 11/04/18 12:13 Resp 16 11/04/18 12:11 BP 101/79 11/04/18 12:11 Pulse Ox 95 11/04/18 12:11 Intake & Output 11/03/18 11/04/18 11/04/18 18:59 06:59 18:59 Intake Total 3300 1230 Output Total 468 571 6209 Balance 7870 800 -902 Weight 95.2 kg 95.2 kg Intake: Intake, IV Titration 1900 Amount Piperacillin-Tazobactam 3 100 .375 gm In Sodium Chloride 0.9% 100 ml @ 25 mls/hr IVPB Q8HR [facility] Rx# :[id number] Sodium Chloride 0.9% 1, 1800 000 ml @ 100 mls/hr IV . Q10H [facility] Rx#:[id number] Oral 1400 1230 Output: Urine 627 453 0111 Other: Voiding Method Toilet Toilet Toilet Urinal Urinal Urinal # Voids 5 - Exam GENERAL EXAM: Alert, pleasant, 58-year-old white male, on 3 L of oxygen comfortable in no apparent distress. HEAD: Normocephalic/atraumatic. EYES: Normal reaction of pupils, equal size. Conjunctiva pink, sclera white. NOSE: Clear with pink turbinates. THROAT: No erythema or exudates. NECK: No masses, no JVD, no thyroid enlargement, no adenopathy. CHEST: No chest wall deformity. Symmetrical expansion. LUNGS: Equal air entry with no crackles, wheeze, rhonchi or dullness. Diminished breath sounds at the bases CVS: Regular rate and rhythm, normal S1 and S2, no gallops, no murmurs, no rubs ABDOMEN: Soft, nontender, distended. No hepatosplenomegaly, normal bowel sounds, no guarding or rigidity. EXTREMITIES: No clubbing, no edema, no cyanosis, 2+ pulses and upper and lower extremities. MUSCULOSKELETAL: Muscle strength and tone normal. SPINE: No scoliosis or deformity SKIN: No rashes CENTRAL NERVOUS SYSTEM: Alert and oriented -3. No focal deficits, tone is normal in all 4 extremities. PSYCHIATRIC: Alert and oriented -3. Appropriate affect. Intact judgment and insight. - Labs CBC & Chem 7: 11/04/18 06:07 11/04/18 06:07 Labs: Abnormal Lab Results - Last 24 Hours (Table) 11/03/18 11/03/18 11/03/18 Range/Units 16:11 16:31 20:47 RBC (4.30-5.90) m/uL Hgb (13.0-17.5) gm/dL Hct (39.0-53.0) % MCHC (31.0-37.0) g/dL RDW (11.5-15.5) % Plt Count (150-450) k/uL BUN (9-20) mg/dL POC Glucose (mg/dL) 62 L 102 H 154 H (75-99) mg/dL Albumin (3.5-5.0) g/dL 11/04/18 11/04/18 11/04/18 Range/Units 06:07 06:07 11:29 RBC 3.49 L (4.30-5.90) m/uL Hgb 10.3 L (13.0-17.5) gm/dL Hct 33.2 L (39.0-53.0) % MCHC 30.9 L (31.0-37.0) g/dL RDW 18.5 H (11.5-15.5) % Plt Count 135 L (150-450) k/uL BUN 8 L (9-20) mg/dL POC Glucose (mg/dL) 152 H (75-99) mg/dL Albumin 3.4 L (3.5-5.0) g/dL Microbiology - Last 24 Hours (Table) 10/30/18 17:45 Blood Culture - Preliminary Blood No Growth after 96 hours 10/31/18 12:54 Gram Stain - Final Sputum Sputum Culture - Final Irena albicans Irena glabrata Beta Hemolytic Strep Group C Assessment and Plan Plan: Assessment: 1 acute bilateral lower lobe pneumonia left more than right with airspace disease and secondary shortness of breath, urine culture showed evidence ofBeta hemolytic strep group C, Irena glabrata and Irena albicans Consider aspiration pneumonia post endoscopy/EGD. Doing well and the patient is well covered with accommodation Zosyn and Zithromax. No signs of any worsening on c linical grounds. The abdomen was deflated and the patient has an NG tube in place regarding his chronic and ongoing abdominal distention. 2 nonspecific enlarged hilar and based on lymph node, chronicity is not known, will need to be addressed at a later stage after clearing of the pneumonia 3 acute febrile illness secondary to above, recovered and the patient is currently afebrile. 4 chronic abdominal distention with a CAT scan of the abdomen and pelvis showing massive distention of the stomach and portions of the duodenum, general surgeries on the case and the patient has an NG tube in place. The patient also has a small umbilical hernia and ventral hernia which is easily reducible. On examination, the patient's abdomen is less distended compared to yesterday. NG tube is in place. He did have a bowel movement yesterday. General surgeries on the case. 5 COPD 6 peripheral vascular disease with previous angioplasty of the left SFA 7 diabetes mellitus 8 infrarenal aortic dissection, stable 9 hypertension 10 hyperlipidemia 11 seizure disorder on Keppra 12 history of chronic back pain currently on a pain pump 13 nicotine dependence 14 colonic diverticulosis 15 altered mentation likely related to metabolic encephalopathy 16 hepatitis C antibody positive Plan: Continue current antibiotic coverage, from pulmonary perspective patient is stable, no fever or chills, no worsening shortness of breath. We will ask the surgery to see the patient again in regards to constipation, fecal stasis, and the concern for ileus and possibility of partial bowel obstruction. Encourage patient to sit up in the chair, deep breathing cough. Monitor for signs of worsening delirium. We'll continue to follow I performed a history & physical examination of the patient and discussed their management with my nurse practitioner, Kimber Pang. I reviewed the nurse practitioner's note and agree with the documented findings and plan of care. Lung sounds are positive for diminished breath sounds bilaterally . The findings and the impression was discussed with the patient. I attest to the documentation by the nurse practitioner. Time with Patient: Less than 30
[2018-11-04 16:35] LABS: Glucose,Whole Blood 74 mg/dL (75-99)
[2018-11-04 17:10] LABS: Folate, Serum 22.8 ng/mL
[2018-11-04 20:40] LABS: Glucose,Whole Blood 136 mg/dL (75-99)
[2018-11-04] MEDS: HYDROcodone/APAP 5-325MG 1 EACH TAB PO PRN (22:45)
[2018-11-05] MEDS: PIPERACILLIN-TAZOBACTAM 3.375 GM in SODIUM CHLORIDE 0.9% 100 ML IVPB SCH ×4 (00:41→23:21)
[2018-11-05 05:48] LABS: Glucose,Whole Blood 96 mg/dL (75-99)
[2018-11-05] MEDS: INSULIN ASPART (NovoLOG) 100 UNIT/ML VIAL SQ SCH ×4 (06:08→21:24)
[2018-11-05 06:25] LABS: Anisocytosis Slight; Basophils % (A) 0 %; Eosinophils # (A) 0.1 k/uL (0-0.7); Eosinophils % (A) 2 %; HCT 34.3 % (39.0-53.0); HGB 10.2 gm/dL (13.0-17.5); Hypochromasia Moderate; Lymphocytes # (A) 1.1 k/uL (1.0-4.8); Lymphocytes % (A) 13 %; MCH 28.9 pg (25.0-35.0); MCHC 29.9 g/dL (31.0-37.0); MCV 96.8 fL (80.0-100.0); Macrocytosis Slight; Mean Platelet Volume 7.6; Monocytes # (A) 0.4 k/uL (0-1.0); Monocytes % (A) 5 %; Neutrophils # (A) 6.8 k/uL (1.3-7.7); Neutrophils % (A) 78 %; Platelet Count 137 k/uL (150-450); RBC 3.54 m/uL (4.30-5.90); RDW 18.4 % (11.5-15.5); WBC 8.7 k/uL (3.8-10.6)
[2018-11-05] MEDS ORDERED: ALPRAZolam 0.25 MG TAB PO PRN (07:07)
[2018-11-05] MEDS: SODIUM CHLORIDE 0.9% 1,000 ML IV SCH ×2 (07:47→16:25)
[2018-11-05] MEDS: PANTOPRAZOLE 40 MG/10 ML VIAL IVP SCH (08:59)
[2018-11-05] MEDS: AZITHROMYCIN 500 MG TAB PO SCH (09:00)
[2018-11-05] MEDS: levETIRAcetam 500 MG TAB PO SCH ×2 (09:00→21:24)
[2018-11-05] MEDS: SERTRALINE 100 MG TAB PO SCH (09:00)
[2018-11-05] MEDS: MAGNESIUM OXIDE 400 MG TAB PO SCH ×2 (09:00→21:24)
[2018-11-05] MEDS: OXYBUTYNIN XL 5 MG TAB.ER.24 PO SCH (09:00)
[2018-11-05] MEDS: FUROSEMIDE 20 MG TAB PO SCH (09:00)
[2018-11-05] MEDS: TAMSULOSIN 0.4 MG CAP.ER.24H PO SCH (09:00)
[2018-11-05] MEDS: THIAMINE 100 MG TAB PO SCH (09:00)
[2018-11-05] MEDS: FERROUS SULFATE 325 MG TAB PO SCH (09:00)
[2018-11-05] MEDS: LISINOPRIL 5 MG TAB PO SCH (09:00)
[2018-11-05] MEDS: MULTIVITAMINS, THERA 1 EACH TAB PO SCH (09:00)
[2018-11-05] MEDS: ASPIRIN 81 MG PO SCH (09:00)
[2018-11-05] MEDS: PREGABALIN 75 MG CAP PO SCH ×2 (09:00→21:24)
[2018-11-05] MEDS: CYCLOBENZAPRINE 5 MG TAB PO SCH ×3 (09:01→21:25)
[2018-11-05] MEDS: HEPARIN SODIUM,PORCINE 5,000 UNIT/ML 1 ML VIAL SQ SCH ×2 (09:01→21:24)
[2018-11-05] MEDS: CLOPIDOGREL 75 MG TAB PO SCH (09:01)
[2018-11-05] MEDS: FOLIC ACID 1 MG TAB PO SCH (09:01)
[2018-11-05] MEDS: NICOTINE 14MG/24HR PATCH TRANSDERM SCH (09:03)
[2018-11-05] MEDS: HYDROcodone/APAP 5-325MG 1 EACH TAB PO PRN ×2 (09:08→14:12)
[2018-11-05] MEDS: IPRATROPIUM-ALBUTEROL 3 ML NEB INHALATION SCH ×4 (09:51→19:15)
[2018-11-05] MEDS: INSULIN DETEMIR (LEVEMIR) 100 UNIT/ML SYR SQ SCH (09:54)
[2018-11-05] MEDS: NON-FORMULARY DRUG (Liraglutide [Victoza 2-Pak] 1.8 MG) SQ SCH (09:54)
--- NOTE | 2018-11-05 11:16 | XR ---
EXAMINATION TYPE: XR chest 2V DATE OF EXAM: 11/05/2018 COMPARISON: 11/03/2018 INDICATION: Pneumonia TECHNIQUE: Frontal and lateral views of the chest are obtained. FINDINGS: The heart size is mildly prominent. The pulmonary vasculature is prominent. Diffuse alveolar infiltrate appears to be present. Findings are worsening from 11/03/2018. IMPRESSION: 1. Clinical consideration for developing congestive heart failure is recommended.
[2018-11-05 12:02] LABS: Glucose,Whole Blood 146 mg/dL (75-99)
--- NOTE | 2018-11-05 14:21 | P.PN ---
Subjective Progress Note Date: 11/05/18 This is a 58-year-old male patient of Dr. Whitlock. Patient presented with complaints of shortness of breath. Patient states that over the past 2 days he has Had increased sputum production and fever. Patient reports that approximately 6 days ago he underwent EGD to investigate anemia with Dr. Loraine huang. Patient denies any recent abdominal pain nausea or vomiting. Patient reports he has been having normal bowel movements. Patient has past medical history of COPD, CVA, diabetes mellitus, hyperlipidemia, hypertension, memory impairment, seizure disorder, PainPump, anemia, anxiety, depression, nicotine dependence. Patient also recently underwent balloon angioplasty of the left SFA and maintained on Plavix. Diffuse increased interstitial markings. No focal airspace disease. Large amount of gastric or bowel contents partially visualized. Abdominal x-ray completed showing stomach is massively distended with a large amount of food material. CT of abdomen and pelvis completed showing multifocal bilateral predominantly basal basilar airspace disease. Enlarged hilar or mediastinal lymph nodes are also present. Multifocal pneumonia is favored. Massively distended stomach dilation of the first second and third portions of the duodenum. No definitive transition point is identified at adjusting of focal obstruction. Splenomegaly. Chronic appearing infrarenal abdominal aortic dissection with a focal areas. Postsurgical changes of the spine. EKG completed showing sinus tachycardia. Chest x-ray completed showing basal atelectasis, correlate for pneumonia. Patient's mediastinal adeno he is not evident on plain film. Patient had temperature 104.5 on admission. UA negative. Blood negative. Group B strep negative. Sputum, blood and urine cultures ordered. Pulmonary service is consulted. Patient started on Rocephin and azithromycin. Surgical services also consulted. At this time patient's abdomen significantly distended. Patient states that this is normal for him and he is not complaining of any specific pain or discomfort. Patient denies nausea vomiting or diarrhea. Patient denies any chest pain. Patient denies any urinary burning or frequency On 11/01/2018 patient is alert and oriented 3. Abdomen was distended today. NG tube remains in place. Patient reports he had normal BM last night. Antibiotics Zosyn and azithromycin for possible aspiration pneumonia per pulmonary. Infectious disease also consulted. At this time patient denies chest pain. Patient does report cough but denies shortness of breath. Patient denies nausea vomiting or diarrhea. Patient denies any urinary burning or frequency On 11/02/2018 patient's alert and oriented 3. Abdomen is less distended today. NG tube has been placed per surgical team. Oncology services have been consulted for enlarged spleen. Patient remains on Zosyn and azithromycin for aspiration pneumonia. At this time patient denies chest pain. Patient denies nausea vomiting or diarrhea. Patient denies any urinary burning or frequency On 11/03/2018 patient is alert and oriented 3 but does not appear to clearly understand the severity of his sickness. Per nursing staff patient's has expressed that patient has been "off" for the past couple days prior to hospitalization. This time will obtain head CT, ammonia level and consult neurology. Patient denies any chest pain or shortness of breath. Abdomen remains distended but improved. Patient denies any nausea vomiting or diarrhea. Patient denies any urinary burning or frequency 11/04/2018 patient is alert and oriented. Patient was evaluated by neurology services. Head was completed. At this time patient is on antibiotics for pneumonia. Patient denies chest pain or shortness of breath. Patient remains on liters nasal cannula. Patient denies nausea vomiting or diarrhea. Abdomen remains lightly distended services have signed off. Patient denies any urinary burning or frequency Objective - Vital Signs Vital signs: Vital Signs Temp 98.2 F 11/05/18 11:11 Pulse 93 11/05/18 13:19 Resp 18 11/05/18 12:00 BP 98/50 11/05/18 11:11 Pulse Ox 94 L 11/05/18 11:11 Intake & Output 11/04/18 11/05/18 11/05/18 18:59 06:59 18:59 Intake Total 1680 180 Output Total 2500 1175 800 Balance -827 -3467 -919 Weight 95.2 kg 94.8 kg Intake: Oral 1680 180 Output: Urine 2500 1175 800 Other: Voiding Method Toilet Toilet Urinal Urinal # Voids 2 3 - Exam In general Patient is alert and oriented 3 in no apparent distress Head normocephalic and atraumatic Neck supple no JVD no goiter Lungs diminished bilaterally Heart regular rate and rhythm S1-S2, no rub or gallop Abdomen hard distended nontender abdomen Extremities no edema no cyanosis or clubbing Neuro no gross focal neurological deficit, chronic tremor in both hands slightly worse than usual - Labs CBC & Chem 7: 11/05/18 05:47 11/04/18 06:07 Labs: Abnormal Lab Results - Last 24 Hours (Table) 11/04/18 11/04/18 11/05/18 Range/Units 16:22 20:36 05:47 RBC 3.54 L (4.30-5.90) m/uL Hgb 10.2 L (13.0-17.5) gm/dL Hct 34.3 L (39.0-53.0) % MCHC 29.9 L (31.0-37.0) g/dL RDW 18.4 H (11.5-15.5) % Plt Count 137 L (150-450) k/uL POC Glucose (mg/dL) 74 L 136 H (75-99) mg/dL 11/05/18 Range/Units 11:49 RBC (4.30-5.90) m/uL Hgb (13.0-17.5) gm/dL Hct (39.0-53.0) % MCHC (31.0-37.0) g/dL RDW (11.5-15.5) % Plt Count (150-450) k/uL POC Glucose (mg/dL) 146 H (75-99) mg/dL Microbiology - Last 24 Hours (Table) 10/30/18 17:45 Blood Culture - Preliminary Blood No Growth after 120 hours Assessment and Plan Plan: 1. Acute bilateral lower lobe pneumonia. CT of chest showing multifocal bilateral predominantly bibasilar airspace disease. Enlarged hilar or mediastinal lymph nodes are also present. Multifocal pneumonia is favored. Dr. gan has been consulted for pulmonary care. Patient had temperature 104.5 on admission. Blood urine and sputum cultures have been ordered. Per pulmonary services consider possible aspiration pneumonia post EGD. Patient currently on Zosyn and Zithromax. Urine culture positive for Irena albicans Irena glabrata beta hemolytic strep group C. Infectious disease following. 2. Abdominal distention. CT of abdomen and pelvis completed showing massively distended stomach with dilation of the first, second and third portions of the duodenum. No definitive transition point is identified suggesting focal obstruction. Surgical services have been consulted. NG tube has been placed patient made nothing by mouth. Abdominal x-ray completed showing antritis, fecal stasis. Upper GI x-ray completed showing delayed filling of the colon and into small bowel with persistent dilated small bowel loops to the level the distal ileum. Partial obstruction in the differential diagnoses correlate clinically. NG tube has been removed per surgical services 3. Recent EGD and colonoscopy with Dr. Santiago 6 days ago. Results showing antral gastritis, transverse colon polyp and mild diverticulosis 4. Recent balloon angioplasty to left SFA in July [address] Degroot. Plavix and aspirin on hold due to splenomegaly 5. History of COPD 6. History of diabetes mellitus. Metformin on hold. Home meds resumed sliding scale coverage ordered. Hemoglobin A1c 7.6 7. History of hyperlipidemia 8. History of essential hypertension 9. Seizure disorder patient maintained on Keppra 10. History of chronic pain with pain pump 11. Nicotine dependence. Nicotine patch ordered 12. History of anxiety and depression 13. Infrarenal aortic dissection, stable. Dr. Vick consulted Plavix and aspirin currently on hold. Per Dr. Vick with vascular services abdominal aortic aneurysm is stable. Patient will need close following upon discharge follow-up in office in one month. 14. Iron deficiency anemia. He recently underwent EGD and colonoscopy with Dr. Santiago. maintained on ferrous sulfate. Hemoglobin 10.2 15. Splenomegaly. Oncology service is consulted. ultrasound of abdomen ordered, Additional lab work ordered. Per GI services splenomegaly suspected related to possible underlining chronic liver disease possibly chronic HCV 16. Increased confusion. Head CT completed showing old right frontal lobe infarct. Mild atrophy. Ammonia less than 9. Per neurology services patient is on both sertraline and Paxil high risk for serotonin syndrome. Paxil DC'd per n eurology. Per neurology mild confusional state likely due to delirium we'll continue to monitor hopefully improves when pneumonia comes under control per neurology 19. Hepatitis C antibiotic positive in blood. GI services following. Per GI services will need to obtain quantitative measurement in genotype positive patient seen with outpatient evaluation and discussion of antiviral therapy foll ow-up outpatient office 3-4 weeks. . DVT prophylaxis heparin. GI prophylaxis Protonix Medication and labs were reviewed Patient is having bowel movements will advance diet Recheck labs and chest x-ray in a.m.
[2018-11-05] MEDS: guaiFENesin 600 MG TABLET.ER PO SCH ×2 (14:22→21:33)
[2018-11-05] MEDS ORDERED: FUROSEMIDE 10 MG/ML 4 ML VIAL IV STA (14:25)
--- NOTE | 2018-11-05 14:26 | P.PN ---
Subjective Progress Note Date: 11/05/18 On today's evaluation of 11/01/2018, the patient is doing better compared to yesterday. NG tube is in place. Abdomen is morbidly flatus yet there is still tympany in the stomach region and in the left upper quadrant. No nausea. No vomiting. He did have a bowel movement yesterday. He is nothing by mouth for now. General surgeries on the case. Meanwhile, the patient is on a combination of antibiotics with Zithromax and Zosyn. He was able to give us a sputum sample. His cough is congested. No stiffness to distress. No fever or chills. The second is not elevated at 7.9. Rest of the blood work is all within normal limits. Hemoglobin is at 10.2. On 11/02/2017 patient seen in follow-up on selective care unit, he is awake and alert, in no acute distress, his abdomen still distended, but slightly less, he did have a bowel movement, he states his breathing is improving, no acute distress, 0.9 normal seen at a rate of 100 ML per hour. 2 L of oxygen and the pulse ox of 95%, afebrile. His get some shortness of breath with ambulation, but otherwise in no acute distress. Today's labs have been reviewed, and showed a white blood cell count of 9.0, hemoglobin is 10.5, electrolytes and renal profile were unremarkable. NG tube has been discontinued per surgery, there has been no nausea, or vomiting. He is tolerating liquids without difficulty. He is passing flatus. He denies any abdominal pain. Surgery is following. he is hoping to be able to go home either today or tomorrow. All culture data including blood, urine culture showed no growth, sputum culture is pending. Pre liminary Gram stain showed rare gram-positive cocci, rare gram-negative bacilli. On 11/03/2018 patient is seen in follow-up on selective care unit, he is awake and alert, he sitting up in the recliner on 2 L of oxygen his pulse ox is 90- 96%, he is afebrile, hemodynamically patient is stable. Early yesterday patient had mental status changes, confusion, and patient would speak and sometimes does not make sense. This was noted to be worse while patient has been in the hospital. Serum ammonia level was obtained, and was normal at less than 9. Brain CT was obtained, and showed old right frontal lobe infarct, and mild atrophy. His abdomen remains distended but improved, and there is has been no nausea, vomiting or diarrhea. Patient was also found to be as a for hepatitis C reactive antibody, GI service has been consulted. Follow-up chest x-ray today has been reviewed by Dr. Burnett, and shows bilateral airspace disease. Her culture was positive for beta hemolytic strep beta hemolytic strep group C, Irena glabrata Irena albicans. Current antibiotic coverage is with the Zosyn and Zithromax, and ID service has been consulted. Sounds reveal diminished breath sounds bilaterally. Patient denies any chest pain, denies any cough or congestion. On 11/04/2018 patient seen in follow-up on selective care unit. He is awake and alert, is confused, maintaining good oxygenation on 3 L of oxygen and his pulse ox is 95%, afebrile, hemodynamically stable, denies any shortness of breath, no cough or congestion, yesterday follow-up chest x-ray was reviewed and shows bilateral airspace disease, and patient continues on Zosyn and Zithromax for a positive sputum culture with the beta hemolytic strep group C, Irena glabrata and Irena albicans. ID service is following, lung sounds reveal diminished breath sounds bilaterally. Denies any chest pain, denies any chest congestion or phlegm production. he is voiding, he only had 1 bowel movement 4 days ago, he is on full liquid diet, no nausea or vomiting, he denies any abdominal complaints. Lower cuts of the chest x-ray revealed retained oral contrast, and vision is still suspected to have fecal impaction, ileus, or partial obstruction. We'll reconsult surgery. From pulmonary perspective patient is stable, recent shortness of breath, ejection is actually improving. No fever or chills. On 11/05/2018, the patient is less short of breath compared to yesterday. No nausea. No vomiting. No abdominal pain. Abdominal distention still present. No leukocytosis. No fever or chills. He remains on IV Zosyn and Zithromax. Repeat chest x-ray from today showed diffuse alveolar infiltrates present with some interval worsening compared to previous chest x-ray from 11/03/2018. We'll consider some diuretics at this point in time. These could be also related to aspiration-induced acute lung injury and the patient started on 3 L of oxygen nasal cannula. Objective - Vital Signs Vital signs: Vital Signs Temp 98.2 F 11/05/18 11:11 Pulse 93 11/05/18 13:19 Resp 18 11/05/18 12:00 BP 98/50 11/05/18 11:11 Pulse Ox 94 L 11/05/18 11:11 Intake & Output 11/04/18 11/05/18 11/05/18 18:59 06:59 18:59 Intake Total 1680 180 Output Total 2500 1175 800 Balance -820 -1175 -741 Weight 95.2 kg 94.8 kg Intake: Oral 1680 180 Output: Urine 2500 1175 800 Other: Voiding Method Toilet Toilet Urinal Urinal # Voids 2 3 - Exam GENERAL EXAM: Alert, pleasant, 58-year-old white male, on 3 L of oxygen comfortable in no apparent distress. HEAD: Normocephalic/atraumatic. EYES: Normal reaction of pupils, equal size. Conjunctiva pink, sclera white. NOSE: Clear with pink turbinates. THROAT: No erythema or exudates. NECK: No masses, no JVD, no thyroid enlargement, no adenopathy. CHEST: No chest wall deformity. Symmetrical expansion. LUNGS: Equal air entry with no crackles, wheeze, rhonchi or dullness. Diminished breath sounds at the bases CVS: Regular rate and rhythm, normal S1 and S2, no gallops, no murmurs, no rubs ABDOMEN: Soft, nontender, distended. No hepatosplenomegaly, normal bowel sounds, no guarding or rigidity. EXTREMITIES: No clubbing, no edema, no cyanosis, 2+ pulses and upper and lower extremities. MUSCULOSKELETAL: Muscle strength and tone normal. SPINE: No scoliosis or deformity SKIN: No rashes CENTRAL NERVOUS SYSTEM: Alert and oriented -3. No focal deficits, tone is normal in all 4 extremities. PSYCHIATRIC: Alert and oriented -3. Appropriate affect. Intact judgment and insight. - Labs CBC & Chem 7: 11/05/18 05:47 11/04/18 06:07 Labs: Abnormal Lab Results - Last 24 Hours (Table) 11/04/18 11/04/18 11/05/18 Range/Units 16:22 20:36 05:47 RBC 3.54 L (4.30-5.90) m/uL Hgb 10.2 L (13.0-17.5) gm/dL Hct 34.3 L (39.0-53.0) % MCHC 29.9 L (31.0-37.0) g/dL RDW 18.4 H (11.5-15.5) % Plt Count 137 L (150-450) k/uL POC Glucose (mg/dL) 74 L 136 H (75-99) mg/dL 11/05/18 Range/Units 11:49 RBC (4.30-5.90) m/uL Hgb (13.0-17.5) gm/dL Hct (39.0-53.0) % MCHC (31.0-37.0) g/dL RDW (11.5-15.5) % Plt Count (150-450) k/uL POC Glucose (mg/dL) 146 H (75-99) mg/dL Microbiology - Last 24 Hours (Table) 10/30/18 17:45 Blood Culture - Preliminary Blood No Growth after 120 hours Assessment and Plan Plan: 1 acute bilateral lower lobe pneumonia left more than right with airspace disease and secondary shortness of breath, urine culture showed evidence of Beta hemolytic strep group C, Irena glabrata and Irena albicans Consider aspiration pneumonia post endoscopy/EGD. Chest x-ray showing worsening of the right and pulmonary infiltrates. Consider postinfectious/aspiration-type of acute lung injury. The patient is on a combination of Zosyn and Zithromax for now. Review of oxygen by nasal cannula. 2 nonspecific enlarged hilar and based on lymph node, chronicity is not known, will need to be addressed at a later stage after clearing of the pneumonia 3 acute febrile illness secondary to above, recovered and the patient is currently afebrile. 4 chronic abdominal distention with a CAT scan of the abdomen and pelvis showing massive distention of the stomach and portions of the duodenum, general surgeries on the case and the patient has an NG tube in place. The patient also has a small umbilical hernia and ventral hernia which is easily reducible. Surgeries on the case. 5 COPD 6 peripheral vascular disease with previous angioplasty of the left SFA 7 diabetes mellitus 8 infrarenal aortic dissection, stable 9 hypertension 10 hyperlipidemia 11 seizure disorder on Keppra 12 history of chronic back pain currently on a pain pump 13 nicotine dependence 14 colonic diverticulosis 15 altered mentation likely related to metabolic encephalopathy 16 hepatitis C antibody positive Plan We'll give the patient a dose of IV Lasix 40 mg IV push. The patient is taking already Lasix 20 mg daily basis. Continue Zosyn. Continue Zithromax. Continue aspiration precautions. Monitor the oxygenation and wean off FiO2 as tolerated. We'll need another surgical evaluation regarding the ongoing abdominal distention. May benefit from another colonoscopy knowing that his previous colonoscopy has been suboptimal. He continues to have gastric distention and questionable small bowel abnormalities that needs to be further worked up.
[2018-11-05 17:04] LABS: Glucose,Whole Blood 88 mg/dL (75-99)
--- NOTE | 2018-11-05 19:31 | P.PN ---
Subjective Progress Note Date: 11/05/18 Patient appears more calm, comfortable. Offers no complaints. Patient sitting in the recliner, having his dinner. No focal symptoms. Objective - Vital Signs Vital signs: Vital Signs Temp 98 F 11/05/18 16:00 Pulse 91 11/05/18 19:25 Resp 16 11/05/18 19:25 BP 111/59 11/05/18 16:00 Pulse Ox 94 L 11/05/18 16:00 Intake & Output 11/05/18 11/05/18 11/06/18 06:59 18:59 06:59 Intake Total 410 Output Total 1175 1200 Balance -1175 -790 Weight 94.8 kg Intake: Oral 410 Output: Urine 1175 1200 Other: Voiding Method Toilet Urinal # Voids 2 1 - Exam Patient knows it is 11/05/2018. He knows name of the current hospital, and the Pres. Speech and language functions appears normal. Muscle strength is normal. He appears less tremulous of outstretched hands. Attention span, concentration is improved. Muscle strength is normal. Visual barajas are full. He has angular chelosis - Labs CBC & Chem 7: 11/05/18 05:47 11/04/18 06:07 Labs: Abnormal Lab Results - Last 24 Hours (Table) 11/04/18 11/05/18 11/05/18 Range/Units 20:36 05:47 11:49 RBC 3.54 L (4.30-5.90) m/uL Hgb 10.2 L (13.0-17.5) gm/dL Hct 34.3 L (39.0-53.0) % MCHC 29.9 L (31.0-37.0) g/dL RDW 18.4 H (11.5-15.5) % Plt Count 137 L (150-450) k/uL POC Glucose (mg/dL) 136 H 146 H (75-99) mg/dL Microbiology - Last 24 Hours (Table) 10/30/18 17:45 Blood Culture - Preliminary Blood No Growth after 120 hours Assessment and Plan Assessment: * Mild confusional state, with some delusions, probably due to delirium. No focal symptoms reported. Examination is nonfocal. * Pneumonia * History of CVA with no residual deficits. * Seizure disorder, currently in remission. * Hepatitis C positive * Type 2 diabetes * Tobacco user Plan: * Patient's delirium hopefully will improve once his pneumonia comes under control * B12 452, folate 22.8, TSH normal 1.6, RPR negative, B6 and B1 level are pending. * Hemoglobin A1c 7.6 * Continue vitamin B1/thiamine 100 mg daily. * Patient clinically better today. * Recommended tobacco cessation.
[2018-11-05 20:27] LABS: Glucose,Whole Blood 268 mg/dL (75-99)
[2018-11-06] MEDS: SODIUM CHLORIDE 0.9% 1,000 ML IV SCH ×3 (05:42→21:19)
[2018-11-06 06:11] LABS: Glucose,Whole Blood 131 mg/dL (75-99)
[2018-11-06 06:12] LABS: Anisocytosis Slight; Basophils % (A) 0 %; Eosinophils # (A) 0.2 k/uL (0-0.7); Eosinophils % (A) 3 %; HCT 33.6 % (39.0-53.0); HGB 10.3 gm/dL (13.0-17.5); Hypochromasia Moderate; Lymphocytes # (A) 1.2 k/uL (1.0-4.8); Lymphocytes % (A) 17 %; MCH 29.5 pg (25.0-35.0); MCHC 30.5 g/dL (31.0-37.0); MCV 96.8 fL (80.0-100.0); Macrocytosis Slight; Mean Platelet Volume 7.7; Monocytes # (A) 0.5 k/uL (0-1.0); Monocytes % (A) 7 %; Neutrophils # (A) 4.9 k/uL (1.3-7.7); Neutrophils % (A) 69 %; Platelet Count 143 k/uL (150-450); RBC 3.47 m/uL (4.30-5.90); RDW 18.6 % (11.5-15.5)
[2018-11-06] MEDS: INSULIN ASPART (NovoLOG) 100 UNIT/ML VIAL SQ SCH ×4 (06:15→21:18)
[2018-11-06 06:23] LABS: ALT 21 U/L (21-72); AST 39 U/L (17-59); Albumin 3.4 g/dL (3.5-5.0); Alkaline Phosphatase 115 U/L (38-126); Anion Gap 8 mmol/L; Blood Urea Nitrogen 9 mg/dL (9-20); Calcium 8.7 mg/dL (8.4-10.2); Carbon Dioxide 32 mmol/L (22-30); Chloride 98 mmol/L (98-107); Glucose 117 mg/dL (74-99); Potassium 4.4 mmol/L (3.5-5.1); Sodium 138 mmol/L (137-145); Total Bilirubin 0.4 mg/dL (0.2-1.3); Total Protein 7.2 g/dL (6.3-8.2)
[2018-11-06] MEDS: IPRATROPIUM-ALBUTEROL 3 ML NEB INHALATION SCH ×4 (07:18→20:25)
[2018-11-06 07:52] VITALS: RESP 18
[2018-11-06] MEDS: guaiFENesin 600 MG TABLET.ER PO SCH ×2 (07:53→19:44)
[2018-11-06] MEDS: FOLIC ACID 1 MG TAB PO SCH (07:53)
[2018-11-06] MEDS: PANTOPRAZOLE 40 MG/10 ML VIAL IVP SCH (07:53)
[2018-11-06] MEDS: levETIRAcetam 500 MG TAB PO SCH ×2 (07:53→19:44)
[2018-11-06] MEDS: THIAMINE 100 MG TAB PO SCH (07:53)
[2018-11-06] MEDS: PIPERACILLIN-TAZOBACTAM 3.375 GM in SODIUM CHLORIDE 0.9% 100 ML IVPB SCH ×3 (07:53→23:06)
[2018-11-06] MEDS: OXYBUTYNIN XL 5 MG TAB.ER.24 PO SCH (07:54)
[2018-11-06] MEDS: ASPIRIN 81 MG PO SCH (07:54)
[2018-11-06] MEDS: TAMSULOSIN 0.4 MG CAP.ER.24H PO SCH (07:54)
[2018-11-06] MEDS: PREGABALIN 75 MG CAP PO SCH ×2 (07:54→19:44)
[2018-11-06] MEDS: FERROUS SULFATE 325 MG TAB PO SCH (07:54)
[2018-11-06] MEDS: LISINOPRIL 5 MG TAB PO SCH (07:54)
[2018-11-06] MEDS: CLOPIDOGREL 75 MG TAB PO SCH (07:54)
[2018-11-06] MEDS: CYCLOBENZAPRINE 5 MG TAB PO SCH ×3 (07:54→21:19)
[2018-11-06] MEDS: HEPARIN SODIUM,PORCINE 5,000 UNIT/ML 1 ML VIAL SQ SCH ×2 (07:54→19:44)
[2018-11-06] MEDS: SERTRALINE 100 MG TAB PO SCH (07:54)
[2018-11-06] MEDS: AZITHROMYCIN 500 MG TAB PO SCH (07:54)
[2018-11-06] MEDS: MAGNESIUM OXIDE 400 MG TAB PO SCH ×2 (07:55→19:43)
[2018-11-06] MEDS: NICOTINE 14MG/24HR PATCH TRANSDERM SCH (07:55)
[2018-11-06] MEDS: FUROSEMIDE 20 MG TAB PO SCH (07:55)
[2018-11-06] MEDS: NON-FORMULARY DRUG (Liraglutide [Victoza 2-Pak] 1.8 MG) SQ SCH (07:55)
[2018-11-06] MEDS: MULTIVITAMINS, THERA 1 EACH TAB PO SCH (07:55)
[2018-11-06] MEDS: HYDROcodone/APAP 5-325MG 1 EACH TAB PO PRN ×2 (08:03→16:39)
[2018-11-06] MEDS: INSULIN DETEMIR (LEVEMIR) 100 UNIT/ML SYR SQ SCH (08:07)
--- NOTE | 2018-11-06 11:46 | P.PN ---
Subjective Progress Note Date: 11/06/18 This is a 58-year-old male patient of Dr. Whitlock. Patient presented with complaints of shortness of breath. Patient states that over the past 2 days he has Had increased sputum production and fever. Patient reports that approximately 6 days ago he underwent EGD to investigate anemia with Dr. Loraine huang. Patient denies any recent abdominal pain nausea or vomiting. Patient reports he has been having normal bowel movements. Patient has past medical history of COPD, CVA, diabetes mellitus, hyperlipidemia, hypertension, memory impairment, seizure disorder, PainPump, anemia, anxiety, depression, nicotine dependence. Patient also recently underwent balloon angioplasty of the left SFA and maintained on Plavix. Diffuse increased interstitial markings. No focal airspace disease. Large amount of gastric or bowel contents partially visualized. Abdominal x-ray completed showing stomach is massively distended with a large amount of food material. CT of abdomen and pelvis completed showing multifocal bilateral predominantly basal basilar airspace disease. Enlarged hilar or mediastinal lymph nodes are also present. Multifocal pneumonia is favored. Massively distended stomach dilation of the first second and third portions of the duodenum. No definitive transition point is identified at adjusting of focal obstruction. Splenomegaly. Chronic appearing infrarenal abdominal aortic dissection with a focal areas. Postsurgical changes of the spine. EKG completed showing sinus tachycardia. Chest x-ray completed showing basal atelectasis, correlate for pneumonia. Patient's mediastinal adeno he is not evident on plain film. Patient had temperature 104.5 on admission. UA negative. Blood negative. Group B strep negative. Sputum, blood and urine cultures ordered. Pulmonary service is consulted. Patient started on Rocephin and azithromycin. Surgical services also consulted. At this time patient's abdomen significantly distended. Patient states that this is normal for him and he is not complaining of any specific pain or discomfort. Patient denies nausea vomiting or diarrhea. Patient denies any chest pain. Patient denies any urinary burning or frequency On 11/01/2018 patient is alert and oriented 3. Abdomen was distended today. NG tube remains in place. Patient reports he had normal BM last night. Antibiotics Zosyn and azithromycin for possible aspiration pneumonia per pulmonary. Infectious disease also consulted. At this time patient denies chest pain. Patient does report cough but denies shortness of breath. Patient denies nausea vomiting or diarrhea. Patient denies any urinary burning or frequency On 11/02/2018 patient's alert and oriented 3. Abdomen is less distended today. NG tube has been placed per surgical team. Oncology services have been consulted for enlarged spleen. Patient remains on Zosyn and azithromycin for aspiration pneumonia. At this time patient denies chest pain. Patient denies nausea vomiting or diarrhea. Patient denies any urinary burning or frequency On 11/03/2018 patient is alert and oriented 3 but does not appear to clearly understand the severity of his sickness. Per nursing staff patient's has expressed that patient has been "off" for the past couple days prior to hospitalization. This time will obtain head CT, ammonia level and consult neurology. Patient denies any chest pain or shortness of breath. Abdomen remains distended but improved. Patient denies any nausea vomiting or diarrhea. Patient denies any urinary burning or frequency 11/04/2018 patient is alert and oriented. Patient was evaluated by neurology services. Head was completed. At this time patient is on antibiotics for pneumonia. Patient denies chest pain or shortness of breath. Patient remains on liters nasal cannula. Patient denies nausea vomiting or diarrhea. Abdomen remains lightly distended services have signed off. Patient denies any urinary burning or frequency On 11/05/2018 patient was seen and examined on the medical floor he is alert and oriented 3 in no apparent distress still complaining of cough and shortness of breath otherwise there is no complaints there is no fever or chills no headache or dizziness no chest pain no nausea or vomiting no abdominal pain no diarrhea and no urinary symptoms. On 11/06/2018 patient is doing well he is able to ambulate was minimal difficul ty with shortness of breath and cough . there is no fever or chills no headache or dizziness no chest pain no nausea or vomiting no abdominal pain no diarrhea and no urinary symptoms Objective - Vital Signs Vital signs: Vital Signs Temp 98.4 F 11/06/18 07:51 Pulse 98 11/06/18 11:22 Resp 18 11/06/18 11:23 BP 121/58 11/06/18 07:51 Pulse Ox 93 L 11/06/18 07:51 Intake & Output 11/05/18 11/06/18 11/06/18 18:59 06:59 18:59 Intake Total 410 260 200 Output Total 1200 800 Balance -790 -540 200 Weight 93.7 kg Intake: Intake, IV Titration 260 Amount Piperacillin-Tazobactam 3 100 .375 gm In Sodium Chloride 0.9% 100 ml @ 25 mls/hr IVPB Q8HR [facility] Rx# :[id number] Sodium Chloride 0.9% 1, 160 000 ml @ 100 mls/hr IV . Q10H [facility] Rx#:[id number] Oral 410 200 Output: Urine 1200 800 Other: Voiding Method Toilet Urinal # Voids 1 - Exam In general Patient is alert and oriented 3 in no apparent distress Head normocephalic and atraumatic Neck supple no JVD no goiter Lungs diminished bilaterally Heart regular rate and rhythm S1-S2, no rub or gallop Abdomen hard distended nontender abdomen Extremities no edema no cyanosis or clubbing Neuro no gross focal neurological deficit - Labs CBC & Chem 7: 11/06/18 05:45 11/06/18 05:45 Labs: Abnormal Lab Results - Last 24 Hours (Table) 11/05/18 11/05/18 11/06/18 Range/Units 11:49 20:24 05:45 RBC 3.47 L (4.30-5.90) m/uL Hgb 10.3 L (13.0-17.5) gm/dL Hct 33.6 L (39.0-53.0) % MCHC 30.5 L (31.0-37.0) g/dL RDW 18.6 H (11.5-15.5) % Plt Count 143 L (150-450) k/uL Carbon Dioxide (22-30) mmol/L Glucose (74-99) mg/dL POC Glucose (mg/dL) 146 H 268 H (75-99) mg/dL Albumin (3.5-5.0) g/dL 11/06/18 11/06/18 Range/Units 05:45 06:09 RBC (4.30-5.90) m/uL Hgb (13.0-17.5) gm/dL Hct (39.0-53.0) % MCHC (31.0-37.0) g/dL RDW (11.5-15.5) % Plt Count (150-450) k/uL Carbon Dioxide 32 H (22-30) mmol/L Glucose 117 H (74-99) mg/dL POC Glucose (mg/dL) 131 H (75-99) mg/dL Albumin 3.4 L (3.5-5.0) g/dL Microbiology - Last 24 Hours (Table) 10/30/18 17:45 Blood Culture - Final Blood No Growth after 144 hours Assessment and Plan Plan: 1. Acute bilateral lower lobe pneumonia. CT of chest showing multifocal bilateral predominantly bibasilar airspace disease. Enlarged hilar or mediastinal lymph nodes are also present. Multifocal pneumonia is favored. Dr. gan has been consulted for pulmonary care. Patient had temperature 104.5 on admission. Blood urine and sputum cultures have been ordered. Per pulmonary services consider possible aspiration pneumonia post EGD. Patient currently on Zosyn and Zithromax. Urine culture positive for Irena albicans Irena glabrata beta hemolytic strep group C. Infectious disease following. 2. Abdominal distention. CT of abdomen and pelvis completed showing massively distended stomach with dilation of the first, second and third portions of the duodenum. No definitive transition point is identified suggesting focal obstruction. Surgical services have been consulted. NG tube has been placed patient made nothing by mouth. Abdominal x-ray completed showing antritis, fecal stasis. Upper GI x-ray completed showing delayed filling of the colon and into small bowel with persistent dilated small bowel loops to the level the distal ileum. Partial obstruction in the differential diagnoses correlate clinically. NG tube has been removed per surgical services 3. Recent EGD and colonoscopy with Dr. Santiago 6 days ago. Results showing antral gastritis, transverse colon polyp and mild diverticulosis 4. Recent balloon angioplasty to left SFA in July [address] Degroot. Plavix and aspirin on hold due to splenomegaly 5. History of COPD 6. History of diabetes mellitus. Metformin on hold. Home meds resumed sliding scale coverage ordered. Hemoglobin A1c 7.6 7. History of hyperlipidemia 8. History of essential hypertension 9. Seizure disorder patient maintained on Keppra 10. History of chronic pain with pain pump 11. Nicotine dependence. Nicotine patch ordered 12. History of anxiety and depression 13. Infrarenal aortic dissection, stable. Dr. Vick consulted Plavix and aspirin currently on hold. Per Dr. Vick with vascular services abdominal aortic aneurysm is stable. Patient will need close following upon discharge follow-up in office in one month. 14. Iron deficiency anemia. He recently underwent EGD and colonoscopy with Dr. Santiago. maintained on ferrous sulfate. Hemoglobin 10.2 15. Splenomegaly. Oncology service is consulted. ultrasound of abdomen ordered, Additional lab work ordered. Per GI services splenomegaly suspected related to possible underlining chronic liver disease possibly chronic HCV 16. Increased confusion. Head CT completed showing old right frontal lobe infarct. Mild atrophy. Ammonia less than 9. Per neurology services patient is on both sertraline and Paxil high risk for serotonin syndrome. Paxil DC'd per neurology. Per neurology mild confusional state likely due to delirium we'll continue to monitor hopefully improves when pneumonia comes under control per neurology 19. Hepatitis C antibiotic positive in blood. GI services following. Per GI services will need to obtain quantitative measurement in genotype positive patient seen with outpatient evaluation and discussion of antiviral therapy follow-up outpatient office 3-4 weeks. . DVT prophylaxis heparin. GI prophylaxis Protonix Medication and labs were reviewed Patient is having bowel movements will advance diet Chest x-ray done yesterday revealed evidence of pulmonary congestion patient received IV Lasix and and shortness of breath improved Will check echocardiogram and BNP to assess for possible congestive heart failure Will recheck patient in a.m.
[2018-11-06 12:10] LABS: Glucose,Whole Blood 64 mg/dL (75-99)
[2018-11-06 12:23] LABS: Glucose,Whole Blood 104 mg/dL (75-99)
--- NOTE | 2018-11-06 12:55 | P.PN ---
Subjective Progress Note Date: 11/06/18 On today's evaluation of 11/01/2018, the patient is doing better compared to yesterday. NG tube is in place. Abdomen is morbidly flatus yet there is still tympany in the stomach region and in the left upper quadrant. No nausea. No vomiting. He did have a bowel movement yesterday. He is nothing by mouth for now. General surgeries on the case. Meanwhile, the patient is on a combination of antibiotics with Zithromax and Zosyn. He was able to give us a sputum sample. His cough is congested. No stiffness to distress. No fever or chills. The second is not elevated at 7.9. Rest of the blood work is all within normal limits. Hemoglobin is at 10.2. On 11/02/2017 patient seen in follow-up on selective care unit, he is awake and alert, in no acute distress, his abdomen still distended, but slightly less, he did have a bowel movement, he states his breathing is improving, no acute distress, 0.9 normal seen at a rate of 100 ML per hour. 2 L of oxygen and the pulse ox of 95%, afebrile. His get some shortness of breath with ambulation, but otherwise in no acute distress. Today's labs have been reviewed, and showed a white blood cell count of 9.0, hemoglobin is 10.5, electrolytes and renal profile were unremarkable. NG tube has been discontinued per surgery, there has been no nausea, or vomiting. He is tolerating liquids without difficulty. He is passing flatus. He denies any abdominal pain. Surgery is following. he is hoping to be able to go home either today or tomorrow. All culture data including blood, urine culture showed no growth, sputum culture is pending. Pre liminary Gram stain showed rare gram-positive cocci, rare gram-negative bacilli. On 11/03/2018 patient is seen in follow-up on selective care unit, he is awake and alert, he sitting up in the recliner on 2 L of oxygen his pulse ox is 90- 96%, he is afebrile, hemodynamically patient is stable. Early yesterday patient had mental status changes, confusion, and patient would speak and sometimes does not make sense. This was noted to be worse while patient has been in the hospital. Serum ammonia level was obtained, and was normal at less than 9. Brain CT was obtained, and showed old right frontal lobe infarct, and mild atrophy. His abdomen remains distended but improved, and there is has been no nausea, vomiting or diarrhea. Patient was also found to be as a for hepatitis C reactive antibody, GI service has been consulted. Follow-up chest x-ray today has been reviewed by Dr. Burnett, and shows bilateral airspace disease. Her culture was positive for beta hemolytic strep beta hemolytic strep group C, Irena glabrata Irena albicans. Current antibiotic coverage is with the Zosyn and Zithromax, and ID service has been consulted. Sounds reveal diminished breath sounds bilaterally. Patient denies any chest pain, denies any cough or congestion. On 11/04/2018 patient seen in follow-up on selective care unit. He is awake and alert, is confused, maintaining good oxygenation on 3 L of oxygen and his pulse ox is 95%, afebrile, hemodynamically stable, denies any shortness of breath, no cough or congestion, yesterday follow-up chest x-ray was reviewed and shows bilateral airspace disease, and patient continues on Zosyn and Zithromax for a positive sputum culture with the beta hemolytic strep group C, Irena glabrata and Irena albicans. ID service is following, lung sounds reveal diminished breath sounds bilaterally. Denies any chest pain, denies any chest congestion or phlegm production. he is voiding, he only had 1 bowel movement 4 days ago, he is on full liquid diet, no nausea or vomiting, he denies any abdominal complaints. Lower cuts of the chest x-ray revealed retained oral contrast, and vision is still suspected to have fecal impaction, ileus, or partial obstruction. We'll reconsult surgery. From pulmonary perspective patient is stable, recent shortness of breath, ejection is actually improving. No fever or chills. On 11/05/2018, the patient is less short of breath compared to yesterday. No nausea. No vomiting. No abdominal pain. Abdominal distention still present. No leukocytosis. No fever or chills. He remains on IV Zosyn and Zithromax. Repeat chest x-ray from today showed diffuse alveolar infiltrates present with some interval worsening compared to previous chest x-ray from 11/03/2018. We'll consider some diuretics at this point in time. These could be also related to aspiration-induced acute lung injury and the patient started on 3 L of oxygen nasal cannula. on 11/06/2018 the patient is feeling better. On examination his lung crackles improved. He was given a dose of Lasix following which she had significant am ount of urine output. On today's evaluation, pulse ox on room air is a 85% and the patient was placed back on oxygen at 2 L. No issues for now. He had a bowel movement yesterday which was quite comforting his abdominal distention improved following that. Echo of the heart is still pending for now and this was done earlier this morning. He is on oral Lasix 20 mg by mouth daily. He remains on IV Zosyn. He remains on oral Zithromax. Repeat chest x-rays to follow in a.m. Objective - Vital Signs Vital signs: Vital Signs Temp 97.7 F 11/06/18 11:47 Pulse 80 11/06/18 11:47 Resp 18 11/06/18 11:47 BP 135/65 11/06/18 11:47 Pulse Ox 92 L 11/06/18 11:47 Intake & Output 11/05/18 11/06/18 11/06/18 18:59 06:59 18:59 Intake Total 410 260 200 Output Total 1200 800 Balance -790 -540 200 Weight 93.7 kg Intake: Intake, IV Titration 260 Amount Piperacillin-Tazobactam 3 100 .375 gm In Sodium Chloride 0.9% 100 ml @ 25 mls/hr IVPB Q8HR [facility] Rx# :[id number] Sodium Chloride 0.9% 1, 160 000 ml @ 100 mls/hr IV . Q10H [facility] Rx#:[id number] Oral 410 200 Output: Urine 1200 800 Other: Voiding Method Toilet Urinal # Voids 1 - Exam GENERAL EXAM: Alert, pleasant, 58-year-old white male, on 3 L of oxygen comfortable in no apparent distress. HEAD: Normocephalic/atraumatic. EYES: Normal reaction of pupils, equal size. Conjunctiva pink, sclera white. NOSE: Clear with pink turbinates. THROAT: No erythema or exudates. NECK: No masses, no JVD, no thyroid enlargement, no adenopathy. CHEST: No chest wall deformity. Symmetrical expansion. LUNGS: Equal air entry with no crackles, wheeze, rhonchi or dullness. Diminished breath sounds at the bases CVS: Regular rate and rhythm, normal S1 and S2, no gallops, no murmurs, no rubs ABDOMEN: Soft, nontender, distended. No hepatosplenomegaly, normal bowel sounds, no guarding or rigidity. EXTREMITIES: No clubbing, no edema, no cyanosis, 2+ pulses and upper and lower extremities. MUSCULOSKELETAL: Muscle strength and tone normal. SPINE: No scoliosis or deformity SKIN: No rashes CENTRAL NERVOUS SYSTEM: Alert and oriented -3. No focal deficits, tone is normal in all 4 extremities. PSYCHIATRIC: Alert and oriented -3. Appropriate affect. Intact judgment and insight. - Labs CBC & Chem 7: 11/06/18 05:45 11/06/18 05:45 Labs: Abnormal Lab Results - Last 24 Hours (Table) 11/05/18 11/06/18 11/06/18 Range/Units 20:24 05:45 05:45 RBC 3.47 L (4.30-5.90) m/uL Hgb 10.3 L (13.0-17.5) gm/dL Hct 33.6 L (39.0-53.0) % MCHC 30.5 L (31.0-37.0) g/dL RDW 18.6 H (11.5-15.5) % Plt Count 143 L (150-450) k/uL Carbon Dioxide 32 H (22-30) mmol/L Glucose 117 H (74-99) mg/dL POC Glucose (mg/dL) 268 H (75-99) mg/dL Albumin 3.4 L (3.5-5.0) g/dL 11/06/18 11/06/18 11/06/18 Range/Units 06:09 11:56 12:10 RBC (4.30-5.90) m/uL Hgb (13.0-17.5) gm/dL Hct (39.0-53.0) % MCHC (31.0-37.0) g/dL RDW (11.5-15.5) % Plt Count (150-450) k/uL Carbon Dioxide (22-30) mmol/L Glucose (74-99) mg/dL POC Glucose (mg/dL) 131 H 64 L 104 H (75-99) mg/dL Albumin (3.5-5.0) g/dL Microbiology - Last 24 Hours (Table) 10/30/18 17:45 Blood Culture - Final Blood No Growth after 144 hours Assessment and Plan Plan: 1 acute bilateral lower lobe pneumonia left more than right with airspace disease and secondary shortness of breath, urine culture showed evidence of Beta hemolytic strep group C, Irena glabrata and Irena albicans Consider aspiration pneumonia post endoscopy/EGD. Chest x-ray showing worsening of the right and pulmonary infiltrates. Consider postinfectious/aspiration-type of acute lung injury. The patient is on a combination of Zosyn and Zithromax for now. Review of oxygen by nasal cannula.the chest x-ray from yesterday showed increased interstitial edema bilaterally. He was given a dose of Lasix. Is still action dependent at 2 L per minute nasal cannula. Echo of the heart is to follow. 2 nonspecific enlarged hilar and based on lymph node, chronicity is not known, will need to be addressed at a later stage after clearing of the pneumonia 3 acute febrile illness secondary to above, recovered and the patient is currently afebrile. 4 chronic abdominal distention with a CAT scan of the abdomen and pelvis showing massive distention of the stomach and portions of the duodenum, general surgeries on the case and the patient has an NG tube in place. The patient also has a small umbilical hernia and ventral hernia which is easily reducible. currently, the NG tube is out. The patient is having adequate amount of bowel movements. No surgical interventions a repeat endoscopy planned at this point in time. Discussed the case with general surgery. 5 COPD 6 peripheral vascular disease with previous angioplasty of the left SFA 7 diabetes mellitus 8 infrarenal aortic dissection, stable 9 hypertension 10 hyperlipidemia 11 seizure disorder on Keppra 12 history of chronic back pain currently on a pain pump 13 nicotine dependence 14 colonic diverticulosis 15 altered mentation likely related to metabolic encephalopathy 16 hepatitis C antibody positive Plan repeat chest x-ray in the morning. echo was done today. The results are still pending for now. Continue Zithromax. Continue Zosyn. We'll follow.
--- NOTE | 2018-11-06 14:45 | ECHOF ---
Referral Reason:shortness of breath MEASUREMENTS -------- HEIGHT: 170.2 cm WEIGHT: 92.1 kg BP: RVIDd: 3.1 cm (< 3.3) IVSd: 1.5 cm (0.6 - 1.1) LVIDd: 4.0 cm (3.9 - 5.3) LVPWd: 1.4 cm (0.6 - 1.1) IVSs: 1.9 cm LVIDs: 2.7 cm LVPWs: 2.0 cm LAESV Index (A-L): 23.73 ml/m Ao Diam: 3.3 cm (2.0 - 3.7) AV Cusp: 2.4 cm (1.5 - 2.6) LA Diam: 4.1 cm (2.7 - 3.8) MV EXCURSION: 19.436 mm (> 18.000) MV EF SLOPE: 131 mm/s (70 - 150) EPSS: 0.7 cm MV E Mario: 0.90 m/s MV DecT: 215 ms MV A Mario: 0.76 m/s MV E/A Ratio: 1.18 RAP: 5.00 mmHg RVSP: 43.29 mmHg FINDINGS -------- Sinus rhythm. This was a technically good study. The left ventricular size is normal. There is moderate concentric left ventricular hypertrophy. O verall left ventricular systolic function is low-normal with, an EF between 50 - 55 %. Basal inferi or LV wall motion is hypokinetic. Mid inferior LV wall motion is hypokinetic. The right ventricle is normal in size. The left atrium is mildly dilated. Normal LA size by volume 22+/-6 ml/m2. The right atrial size is normal. Interatrial and interventricular septum intact. The aortic valve is trileaflet and appears structurally normal. Mild mitral regurgitation is present. Mild tricuspid regurgitation present. There is no evidence of pulmonary hypertension. The right v entricular systolic pressure, as measured by Doppler, is 43.29mmHg. There is no pulmonic regurgitation present. The aortic root size is normal. Normal inferior vena cava with normal inspiratory collapse consistent with estimated right atrial pre ssure of 5 mmHg. There is no pericardial effusion. CONCLUSIONS -------- 1. Sinus rhythm. 2. This was a technically good study. 3. The left ventricular size is normal. 4. There is moderate concentric left ventricular hypertrophy. 5. Overall left ventricular systolic function is low-normal with, an EF between 50 - 55 %. 6. Basal inferior LV wall motion is hypokinetic. 7. Mid inferior LV wall motion is hypokinetic. 8. The right ventricle is normal in size. 9. The left atrium is mildly dilated. 10. Normal LA size by volume 22+/-6 ml/m2. 11. The right atrial size is normal. 12. Interatrial and interventricular septum intact. 13. The aortic valve is trileaflet and appears structurally normal. 14. Mild mitral regurgitation is present. 15. Mild tricuspid regurgitation present. 16. There is no evidence of pulmonary hypertension. 17. The right ventricular systolic pressure, as measured by Doppler, is 43.29mmHg. 18. There is no pulmonic regurgitation present. 19. The aortic root size is normal. 20. Normal inferior vena cava with normal inspiratory collapse consistent with estimated right atrial pressure of 5 mmHg. 21. There is no pericardial effusion. DEVELOPMENTAL BEHAVIORAL PHYSICIAN: Negrita Garcia RDCS
--- NOTE | 2018-11-06 16:29 | P.PN ---
Subjective Progress Note Date: 11/06/18 Patient appears more calm, comfortable. Patient's was present. She states that he is not back to baseline yet. Sometimes not able to comprehend. Sometimes says things which are not right. Sometimes drifts off while talking about something. Patient denies any drinking alcohol. No focal symptoms. Objective - Vital Signs Vital signs: Vital Signs Temp 97.7 F 11/06/18 11:47 Pulse 96 11/06/18 15:49 Resp 18 11/06/18 11:47 BP 135/65 11/06/18 11:47 Pulse Ox 92 L 11/06/18 11:47 Intake & Output 11/05/18 11/06/18 11/06/18 18:59 06:59 18:59 Intake Total 410 260 200 Output Total 1200 800 700 Balance -790 540 -500 Weight 93.7 kg Intake: Intake, IV Titration 260 Amount Piperacillin-Tazobactam 3 100 .375 gm In Sodium Chloride 0.9% 100 ml @ 25 mls/hr IVPB Q8HR [facility] Rx# :[id number] Sodium Chloride 0.9% 1, 160 000 ml @ 100 mls/hr IV . Q10H [facility] Rx#:[id number] Oral 410 200 Output: Urine 1200 800 700 Other: Voiding Method Toilet Urinal # Voids 1 - Exam Patient is alert and awake, fairly well oriented. Speech and language functions appears normal. Muscle strength is normal. He appears less tremulous of outstretched hands. Attention span, concentration is improved. Muscle strength is normal. Visual barajas are full. He has angular chelosis - Labs CBC & Chem 7: 11/06/18 05:45 11/06/18 05:45 Labs: Abnormal Lab Results - Last 24 Hours (Table) 11/05/18 11/06/18 11/06/18 Range/Units 20:24 05:45 05:45 RBC 3.47 L (4.30-5.90) m/uL Hgb 10.3 L (13.0-17.5) gm/dL Hct 33.6 L (39.0-53.0) % MCHC 30.5 L (31.0-37.0) g/dL RDW 18.6 H (11.5-15.5) % Plt Count 143 L (150-450) k/uL Carbon Dioxide 32 H (22-30) mmol/L Glucose 117 H (74-99) mg/dL POC Glucose (mg/dL) 268 H (75-99) mg/dL Albumin 3.4 L (3.5-5.0) g/dL 11/06/18 11/06/18 11/06/18 Range/Units 06:09 11:56 12:10 RBC (4.30-5.90) m/uL Hgb (13.0-17.5) gm/dL Hct (39.0-53.0) % MCHC (31.0-37.0) g/dL RDW (11.5-15.5) % Plt Count (150-450) k/uL Carbon Dioxide (22-30) mmol/L Glucose (74-99) mg/dL POC Glucose (mg/dL) 131 H 64 L 104 H (75-99) mg/dL Albumin (3.5-5.0) g/dL Microbiology - Last 24 Hours (Table) 10/30/18 17:45 Blood Culture - Final Blood No Growth after 144 hours Assessment and Plan Assessment: * Mild confusional state, with some delusions, probably due to delirium. No focal symptoms reported. Examination is nonfocal. * Pneumonia * History of CVA with no residual deficits. * Seizure disorder, currently in remission. * Hepatitis C positive * Type 2 diabetes * Tobacco user Plan: * Patient's delirium hopefully will improve once his pneumonia comes under control * B12 452, folate 22.8, TSH normal 1.6, RPR negative, B6 and B1 level are still pending. * Hemoglobin A1c 7.6 * Continue vitamin B1/thiamine 100 mg daily. * Patient being treated for pneumonia. * Recommended tobacco cessation. * We will follow clinically.
[2018-11-06 17:21] LABS: Glucose,Whole Blood 124 mg/dL (75-99)
[2018-11-06 18:53] LABS: Albumin 2.86 g/dL (3.80-4.90); Gamma Globulin 1.75 g/dL (0.70-1.50)
[2018-11-06 20:54] LABS: Glucose,Whole Blood 182 mg/dL (75-99)
[2018-11-07 05:48] LABS: Glucose,Whole Blood 146 mg/dL (75-99)
[2018-11-07] MEDS: INSULIN ASPART (NovoLOG) 100 UNIT/ML VIAL SQ SCH ×2 (06:23→12:22)
[2018-11-07 06:33] LABS: Anisocytosis Slight; Basophils % (A) 1 %; Eosinophils # (A) 0.2 k/uL (0-0.7); Eosinophils % (A) 4 %; HGB 9.8 gm/dL (13.0-17.5); Hypochromasia Moderate; Lymphocytes # (A) 1.1 k/uL (1.0-4.8); Lymphocytes % (A) 20 %; MCH 29.4 pg (25.0-35.0); MCHC 30.7 g/dL (31.0-37.0); Macrocytosis Slight; Mean Platelet Volume 7.7; Monocytes # (A) 0.3 k/uL (0-1.0); Monocytes % (A) 5 %; Neutrophils # (A) 3.5 k/uL (1.3-7.7); Neutrophils % (A) 67 %; Platelet Count 139 k/uL (150-450); RBC 3.34 m/uL (4.30-5.90); RDW 18.5 % (11.5-15.5); WBC 5.3 k/uL (3.8-10.6)
[2018-11-07 06:41] LABS: ALT 21 U/L (21-72); AST 32 U/L (17-59); Albumin 3.3 g/dL (3.5-5.0); Alkaline Phosphatase 109 U/L (38-126); Anion Gap 9 mmol/L; Blood Urea Nitrogen 9 mg/dL (9-20); Calcium 8.7 mg/dL (8.4-10.2); Carbon Dioxide 27 mmol/L (22-30); Chloride 101 mmol/L (98-107); Glucose 181 mg/dL (74-99); Potassium 4.6 mmol/L (3.5-5.1); Sodium 137 mmol/L (137-145); Total Bilirubin 0.3 mg/dL (0.2-1.3)
[2018-11-07] MEDS: HYDROcodone/APAP 5-325MG 1 EACH TAB PO PRN (07:55)
[2018-11-07] MEDS: ASPIRIN 81 MG PO SCH (07:55)
[2018-11-07] MEDS: OXYBUTYNIN XL 5 MG TAB.ER.24 PO SCH (07:55)
[2018-11-07] MEDS: FERROUS SULFATE 325 MG TAB PO SCH (07:55)
[2018-11-07] MEDS: CYCLOBENZAPRINE 5 MG TAB PO SCH (07:55)
[2018-11-07] MEDS: PANTOPRAZOLE 40 MG/10 ML VIAL IVP SCH (07:55)
[2018-11-07] MEDS: FUROSEMIDE 20 MG TAB PO SCH (07:56)
[2018-11-07] MEDS: TAMSULOSIN 0.4 MG CAP.ER.24H PO SCH (07:56)
[2018-11-07] MEDS: THIAMINE 100 MG TAB PO SCH (07:56)
[2018-11-07] MEDS: AZITHROMYCIN 500 MG TAB PO SCH (07:56)
[2018-11-07] MEDS: PREGABALIN 75 MG CAP PO SCH (07:56)
[2018-11-07] MEDS: levETIRAcetam 500 MG TAB PO SCH (07:56)
[2018-11-07] MEDS: HEPARIN SODIUM,PORCINE 5,000 UNIT/ML 1 ML VIAL SQ SCH (07:56)
[2018-11-07] MEDS: guaiFENesin 600 MG TABLET.ER PO SCH (07:57)
[2018-11-07] MEDS: SERTRALINE 100 MG TAB PO SCH (07:57)
[2018-11-07] MEDS: LISINOPRIL 5 MG TAB PO SCH (07:57)
[2018-11-07] MEDS: NON-FORMULARY DRUG (Liraglutide [Victoza 2-Pak] 1.8 MG) SQ SCH (07:57)
[2018-11-07] MEDS: FOLIC ACID 1 MG TAB PO SCH (07:57)
[2018-11-07] MEDS: MAGNESIUM OXIDE 400 MG TAB PO SCH (07:57)
[2018-11-07] MEDS: MULTIVITAMINS, THERA 1 EACH TAB PO SCH (07:57)
[2018-11-07] MEDS: CLOPIDOGREL 75 MG TAB PO SCH (07:57)
[2018-11-07] MEDS: NICOTINE 14MG/24HR PATCH TRANSDERM SCH (07:58)
[2018-11-07] MEDS: PIPERACILLIN-TAZOBACTAM 3.375 GM in SODIUM CHLORIDE 0.9% 100 ML IVPB SCH (08:01)
[2018-11-07] MEDS: INSULIN DETEMIR (LEVEMIR) 100 UNIT/ML SYR SQ SCH (08:35)
[2018-11-07] MEDS: SODIUM CHLORIDE 0.9% 1,000 ML IV SCH (08:44)
[2018-11-07] MEDS: IPRATROPIUM-ALBUTEROL 3 ML NEB INHALATION SCH ×2 (08:58→12:40)
--- NOTE | 2018-11-07 10:33 | XR ---
EXAMINATION TYPE: XR chest 2V DATE OF EXAM: 11/07/2018 COMPARISON: 11/05/2018 INDICATION: CHF short of breath TECHNIQUE: Frontal and lateral views of the chest are obtained. FINDINGS: The heart size is normal. The pulmonary vasculature is normal. The lungs are clear. IMPRESSION: 1. No acute pulmonary process.
[2018-11-07 11:07] VITALS: BP 128/61; TEMP 97.8
[2018-11-07 11:46] LABS: Glucose,Whole Blood 92 mg/dL (75-99)
--- NOTE | 2018-11-07 12:11 | P.DS ---
Providers Date of admission: 10/30/18 20:12 Expected date of discharge: 11/07/18 Attending physician: Radha Sevilla Consults: 10/31/18 08:57 Consult Physician Routine Consulting Provider: Cha Burnett Consult Reason/Comments: pneumonia Do you want consulting provider notified?: Yes 10/31/18 13:33 Consult Physician Routine Consulting Provider: Matthew Musa Consult Reason/Comments: febrile, splenomegaly Do you want consulting provider notified?: Yes 10/31/18 13:38 Consult Physician Routine Consulting Provider: Alex Vick Consult Reason/Comments: Infrarenal abdominal aortic dissection with focal aneurysm Do you want consulting provider notified?: Yes 11/01/18 15:46 Consult Physician Routine Consulting Provider: Brodie Scott Consult Reason/Comments: enlarged spleen Do you want consulting provider notified?: Yes 11/03/18 10:38 Consult Physician Routine Consulting Provider: Radha Mccarthy Consult Reason/Comments: confusion Do you want consulting provider notified?: Yes 11/04/18 16:53 Consult Physician Urgent Consulting Provider: Prosper Santiago Consult Reason/Comments: abd distention Do you want consulting provider notified?: Yes Primary care physician: Sharyn Whitlock Hospital Course: Discharge diagnosis 1. Acute bilateral lower lobe pneumonia. CT of chest showing multifocal bilateral predominantly bibasilar airspace disease. Enlarged hilar or mediastinal lymph nodes are also present. Multifocal pneumonia is favored. Dr. gan has been consulted for pulmonary care. Patient had temperature 104.5 on admission. Blood urine and sputum cultures have been ordered. Per pulmonary services consider possible aspiration pneumonia post EGD. Patient currently on Zosyn and Zithromax. Urine culture positive for Irena albicans Irena glabrata beta hemolytic strep group C. Infectious disease following. Discussed case with pulmonary services patient has been cleared for discharge. Patient will be discharged on Augmentin for 10 days 2. Abdominal distention. CT of abdomen and pelvis completed showing massively distended stomach with dilation of the first, second and third portions of the duodenum. No definitive transition point is identified suggesting focal obstruction. Surgical services have been consulted. NG tube has been placed patient made nothing by mouth. Abdominal x-ray completed showing antritis, fecal stasis. Upper GI x-ray completed showing delayed filling of the colon and into small bowel with persistent dilated small bowel loops to the level the distal ileum. Partial obstruction in the differential diagnoses correlate clinically. NG tube has been removed per surgical services. Per surgical services advance diet as tolerated no surgical intervention recommended at this time 3. Recent EGD and colonoscopy with Dr. Santiago 6 days ago. Results showing antral gastritis, transverse colon polyp and mild diverticulosis 4. Recent balloon angioplasty to left SFA in July [address] Degroot. Discussed case with oncology services okay to resume aspirin and Plavix 5. History of COPD 6. History of diabetes mellitus. Metformin on hold. Home meds resumed sliding scale coverage ordered. Hemoglobin A1c 7.6 7. History of hyperlipidemia 8. History of essential hypertension 9. Seizure disorder patient maintained on Keppra 10. History of chronic pain with pain pump 11. Nicotine dependence. Nicotine patch ordered 12. History of anxiety and depression 13. Infrarenal aortic dissection, stable. Per Dr. Vick with vascular services abdominal aortic aneurysm is stable. Patient will need close following upon discharge follow-up in office in one month. 14. Iron deficiency anemia. He recently underwent EGD and colonoscopy with Dr. Santiago. maintained on ferrous sulfate. Hemoglobin 10.2 15. Splenomegaly. Oncology service is consulted. ultrasound of abdomen ordered, Additional lab work ordered. Per GI services splenomegaly suspected related to possible underlining chronic liver disease possibly chronic HCV 16. Increased confusion. Head CT completed showing old right frontal lobe infarct. Mild atrophy. Ammonia less than 9. Per neurology services patient is on both sertraline and Paxil high risk for serotonin syndrome. Paxil DC'd per neurology. Per neurology mild confusional state likely due to delirium we'll c ontinue to monitor hopefully improves when pneumonia comes under control per neurology 19. Hepatitis C antibiotic positive in blood. GI services following. Per GI services will need to obtain quantitative measurement in genotype positive patient seen with outpatient evaluation and discussion of antiviral therapy follow-up outpatient office 3-4 weeks. 20. Nonspecific enlarged hilar base on chronicity is not known patient will need to be addressed at a later stage after clearing of the pneumonia per pulmonary. 21. Increased pulmonary vascular congestion. Chest x-ray showing clinical consideration for developing congestive heart failure is recommended. 2-D echo completed showing an EF of 50-55%. BNP 216. Repeat chest x-ray completed showing no acute pulmonary process. Patient maintained on 20 mg Lasix daily Hospital course This is a 58-year-old male patient of Dr. Whitlock. Patient presented with complaints of shortness of breath. Patient states that over the past 2 days he has Had increased sputum production and fever. Patient reports that approximately 6 days ago he underwent EGD to investigate anemia with Dr. Santiago. Patient denies any recent abdominal pain nausea or vomiting. Patient reports he has been having normal bowel movements. Patient has past medical history of COPD, CVA, diabetes mellitus, hyperlipidemia, hypertension, memory impairment, seizure disorder, PainPump, anemia, anxiety, depression, nicotine dependence. Patient also recently underwent balloon angioplasty of the left SFA and maintained on Plavix. Diffuse increased interstitial markings. No focal airspace disease. Large amount of gastric or bowel contents partially visualized. Abdominal x-ray completed showing stomach is massively distended w ith a large amount of food material. CT of abdomen and pelvis completed showing multifocal bilateral predominantly basal basilar airspace disease. Enlarged hilar or mediastinal lymph nodes are also present. Multifocal pneumonia is favored. Massively distended stomach dilation of the first second and third portions of the duodenum. No definitive transition point is identified at adjusting of focal obstruction. Splenomegaly. Chronic appearing infrarenal abdominal aortic dissection with a focal areas. Postsurgical changes of the spine. EKG completed showing sinus tachycardia. Chest x-ray completed showing basal atelectasis, correlate for pneumonia. Patient's mediastinal adeno he is not evident on plain film. Patient had temperature 104.5 on admission. UA negative. Blood negative. Group B strep negative. Sputum, blood and urine cultures ordered. Pulmonary service is consulted. Patient started on Rocephin and azithromycin. Surgical services also consulted. At this time patient's abdomen significantly distended. Patient states that this is normal for him and he is not complaining of any specific pain or discomfort. Patient denies nausea vomiting or diarrhea. Patient denies any chest pain. Patient denies any urinary burning or frequency On 11/01/2018 patient is alert and oriented 3. Abdomen was distended today. NG tube remains in place. Patient reports he had normal BM last night. Antibiotics Zosyn and azithromycin for possible aspiration pneumonia per pulmonary. Infectious disease also consulted. At this time patient denies chest pain. Patient does report cough but denies shortness of breath. Patient denies nausea vomiting or diarrhea. Patient denies any urinary burning or frequency On 11/02/2018 patient's alert and oriented 3. Abdomen is less distended today. NG tube has been placed per surgical team. Oncology services have been consulted for enlarged spleen. Patient remains on Zosyn and azithromycin for aspiration pneumonia. At this time patient denies chest pain. Patient denies nausea vomiting or diarrhea. Patient denies any urinary burning or frequency On 11/03/2018 patient is alert and oriented 3 but does not appear to clearly understand the severity of his sickness. Per nursing staff patient's has expressed that patient has been "off" for the past couple days prior to hospitalization. This time will obtain head CT, ammonia level and consult neurology. Patient denies any chest pain or shortness of breath. Abdomen remains distended but improved. Patient denies any nausea vomiting or diarrhea. Patient denies any urinary burning or frequency 11/04/2018 patient is alert and oriented. Patient was evaluated by neurology services. Head was completed. At this time patient is on antibiotics for pn eumonia. Patient denies chest pain or shortness of breath. Patient remains on liters nasal cannula. Patient denies nausea vomiting or diarrhea. Abdomen remains lightly distended services have signed off. Patient denies any urinary burning or frequency On 11/05/2018 patient was seen and examined on the medical floor he is alert and oriented 3 in no apparent distress still complaining of cough and shortness of breath otherwise there is no complaints there is no fever or chills no headache or dizziness no chest pain no nausea or vomiting no abdominal pain no diarrhea and no urinary symptoms. On 11/06/2018 patient is doing well he is able to ambulate was minimal difficulty with shortness of breath and cough . there is no fever or chills no headache or dizziness no chest pain no nausea or vomiting no abdominal pain no diarrhea and no urinary symptoms On 11/07/2018 patient is alert and oriented x 3. Patient has been cleared for discharge from pulmonary standpoint. Patient to follow-up closely with PCP and consulting providers. Patient expresses he is very to go home. Patient has been tolerating room air. At this time patient denies chest pain or shortness breath. Patient denies nausea vomiting or diarrhea. Patient denies any urinary burning or frequency I performed an examination of the patient and discussed their management with the Nurse Practitioner. I have reviewed the Nurse Practitioner's notes and agree with the documented findings and plan of care Patient Condition at Discharge: Stable Plan - Discharge Summary Discharge Rx Participant: Yes New Discharge Prescriptions: New Nicotine 14Mg/24Hr Patch [Habitrol] 1 patch TRANSDERM DAILY 30 Days #30 patch Thiamine [Vitamin B-1] 100 mg PO DAILY 30 Days #30 tab Amoxic-Pot Clav 875-125Mg [Augmentin 875-125] 1 tab PO Q12HR 10 Days #20 tablet Continue Multivitamins, Thera [Multivitamin (formulary)] 1 tab PO DAILY Folic Acid 1 mg PO DAILY Clopidogrel [Plavix] 75 mg PO DAILY Lisinopril [Prinivil] 5 mg PO DAILY Aspirin [Adult Low Dose Aspirin EC] 81 mg PO DAILY Albuterol Inhaler [Ventolin Hfa Inhaler] 1 - 2 puff INHALATION RT-Q6H PRN PRN Reason: Shortness Of Breath Liraglutide [Victoza 2-Selvin] 1.8 mg SQ DAILY Furosemide [Lasix] 20 mg PO DAILY Insulin Lispro [Admelog] 9 unit SQ AC-TID Insulin Glargine,Hum.rec.anlog [Basaglar Kwikpen U-100] 57 unit SQ DAILY levETIRAcetam [Keppra] 1,000 mg PO Q12HR Pregabalin [Lyrica] 150 mg PO BID metFORMIN HCL 1,000 mg PO BID Tamsulosin [Flomax] 0.4 mg PO DAILY Ondansetron HCl [Zofran] 8 mg PO Q6H PRN PRN Reason: Nausea HYDROcodone/APAP 5-325MG [[place] 5-325] 1 tab PO TID PRN PRN Reason: Pain Ferrous Sulfate [Iron (65 MG Elemental)] 325 mg PO DAILY Albuterol Nebulized [Ventolin Nebulized] 2.5 mg INHALATION RT-BID Cyclobenzaprine [Flexeril] 5 mg PO TID Ibuprofen [Motrin] 600 mg PO TID PRN PRN Reason: Pain Insulin Lispro [Admelog] See Protocol SQ AC-TID Magnesium Oxide [Mag-Ox] 250 mg PO BID Oxybutynin Xl [Ditropan XL] 5 mg PO DAILY Sertraline [Zoloft] 100 mg PO DAILY Simethicone [Gas-X] 125 mg PO TID PRN PRN Reason: Indigestion Discontinued PARoxetine [Paxil] 20 mg PO DAILY Atorvastatin Calcium [Lipitor] 80 mg PO DAILY Discharge Medication List Aspirin [Adult Low Dose Aspirin EC] 81 mg PO DAILY 08/28/15 [History] Clopidogrel [Plavix] 75 mg PO DAILY 08/28/15 [History] Folic Acid 1 mg PO DAILY 08/28/15 [History] Lisinopril [Prinivil] 5 mg PO DAILY 08/28/15 [History] Multivitamins, Thera [Multivitamin (formulary)] 1 tab PO DAILY 08/28/15 [History] Albuterol Inhaler [Ventolin Hfa Inhaler] 1 - 2 puff INHALATION RT-Q6H PRN 07/19/18 [History] Furosemide [Lasix] 20 mg PO DAILY 07/19/18 [History] Insulin Glargine,Hum.rec.anlog [Basaglar Kwikpen U-100] 57 unit SQ DAILY [History] Insulin Lispro [Admelog] 9 unit SQ AC-TID 07/19/18 [History] Liraglutide [Victoza 2-Selvin] 1.8 mg SQ DAILY 07/19/18 [History] Pregabalin [Lyrica] 150 mg PO BID 07/20/18 [History] levETIRAcetam [Keppra] 1,000 mg PO Q12HR 07/20/18 [History] Ferrous Sulfate [Iron (65 MG Elemental)] 325 mg PO DAILY 10/20/18 [History] HYDROcodone/APAP 5-325MG [[place] 5-325] 1 tab PO TID PRN 10/20/18 [History] Ondansetron HCl [Zofran] 8 mg PO Q6H PRN 10/20/18 [History] Tamsulosin [Flomax] 0.4 mg PO DAILY 10/20/18 [History] metFORMIN HCL 1,000 mg PO BID 10/20/18 [History] Albuterol Nebulized [Ventolin Nebulized] 2.5 mg INHALATION RT-BID 10/30/18 [History] Cyclobenzaprine [Flexeril] 5 mg PO TID 10/30/18 [History] Ibuprofen [Motrin] 600 mg PO TID PRN 10/30/18 [History] Insulin Lispro [Admelog] See Protocol SQ AC-TID 10/30/18 [History] Magnesium Oxide [Mag-Ox] 250 mg PO BID 10/30/18 [History] Oxybutynin Xl [Ditropan XL] 5 mg PO DAILY 10/30/18 [History] Sertraline [Zoloft] 100 mg PO DAILY 10/30/18 [History] Simethicone [Gas-X] 125 mg PO TID PRN 10/30/18 [History] Amoxic-Pot Clav 875-125Mg [Augmentin 875-125] 1 tab PO Q12HR 10 Days #20 tablet 11/07/18 [Rx] Nicotine 14Mg/24Hr Patch [Habitrol] 1 patch TRANSDERM DAILY 30 Days #30 patch 11/07/18 [Rx] Thiamine [Vitamin B-1] 100 mg PO DAILY 30 Days #30 tab 11/07/18 [Rx] Follow up Appointment(s)/Referral(s): Alex Vick MD [STAFF PHYSICIAN] - 4 Weeks Sharyn Whitlock DO [Primary Care Provider] - 1-2 days Angeline Castellanos PAC [REFERRING] - 11/16/18 1:00 pm Cha Burnett MD [STAFF PHYSICIAN] - 1 Week Prosper Santiago MD [STAFF PHYSICIAN] - 1 Week Patient Instructions/Handouts: Pneumonitis (DC), Enlarged Spleen (GEN) Activity/Diet/Wound Care/Special Instructions: Activity as tolerated Diet regular Discharge Disposition: HOME SELF-CARE
[2018-11-07 12:43] VITALS: PULSE 84
--- NOTE | 2018-11-07 13:53 | P.PN ---
Subjective Progress Note Date: 11/07/18 On today's evaluation of 11/01/2018, the patient is doing better compared to yesterday. NG tube is in place. Abdomen is morbidly flatus yet there is still tympany in the stomach region and in the left upper quadrant. No nausea. No vomiting. He did have a bowel movement yesterday. He is nothing by mouth for now. General surgeries on the case. Meanwhile, the patient is on a combination of antibiotics with Zithromax and Zosyn. He was able to give us a sputum sample. His cough is congested. No stiffness to distress. No fever or chills. The second is not elevated at 7.9. Rest of the blood work is all within normal limits. Hemoglobin is at 10.2. On 11/02/2017 patient seen in follow-up on selective care unit, he is awake and alert, in no acute distress, his abdomen still distended, but slightly less, he did have a bowel movement, he states his breathing is improving, no acute distress, 0.9 normal seen at a rate of 100 ML per hour. 2 L of oxygen and the pulse ox of 95%, afebrile. His get some shortness of breath with ambulation, but otherwise in no acute distress. Today's labs have been reviewed, and showed a white blood cell count of 9.0, hemoglobin is 10.5, electrolytes and renal profile were unremarkable. NG tube has been discontinued per surgery, there has been no nausea, or vomiting. He is tolerating liquids without difficulty. He is passing flatus. He denies any abdominal pain. Surgery is following. he is hoping to be able to go home either today or tomorrow. All culture data including blood, urine culture showed no growth, sputum culture is pending. Pre liminary Gram stain showed rare gram-positive cocci, rare gram-negative bacilli. On 11/03/2018 patient is seen in follow-up on selective care unit, he is awake and alert, he sitting up in the recliner on 2 L of oxygen his pulse ox is 90- 96%, he is afebrile, hemodynamically patient is stable. Early yesterday patient had mental status changes, confusion, and patient would speak and sometimes does not make sense. This was noted to be worse while patient has been in the hospital. Serum ammonia level was obtained, and was normal at less than 9. Brain CT was obtained, and showed old right frontal lobe infarct, and mild atrophy. His abdomen remains distended but improved, and there is has been no nausea, vomiting or diarrhea. Patient was also found to be as a for hepatitis C reactive antibody, GI service has been consulted. Follow-up chest x-ray today has been reviewed by Dr. Burnett, and shows bilateral airspace disease. Her culture was positive for beta hemolytic strep beta hemolytic strep group C, Irena glabrata Irena albicans. Current antibiotic coverage is with the Zosyn and Zithromax, and ID service has been consulted. Sounds reveal diminished breath sounds bilaterally. Patient denies any chest pain, denies any cough or congestion. On 11/04/2018 patient seen in follow-up on selective care unit. He is awake and alert, is confused, maintaining good oxygenation on 3 L of oxygen and his pulse ox is 95%, afebrile, hemodynamically stable, denies any shortness of breath, no cough or congestion, yesterday follow-up chest x-ray was reviewed and shows bilateral airspace disease, and patient continues on Zosyn and Zithromax for a positive sputum culture with the beta hemolytic strep group C, Irena glabrata and Irena albicans. ID service is following, lung sounds reveal diminished breath sounds bilaterally. Denies any chest pain, denies any chest congestion or phlegm production. he is voiding, he only had 1 bowel movement 4 days ago, he is on full liquid diet, no nausea or vomiting, he denies any abdominal complaints. Lower cuts of the chest x-ray revealed retained oral contrast, and vision is still suspected to have fecal impaction, ileus, or partial obstruction. We'll reconsult surgery. From pulmonary perspective patient is stable, recent shortness of breath, ejection is actually improving. No fever or chills. On 11/05/2018, the patient is less short of breath compared to yesterday. No nausea. No vomiting. No abdominal pain. Abdominal distention still present. No leukocytosis. No fever or chills. He remains on IV Zosyn and Zithromax. Repeat chest x-ray from today showed diffuse alveolar infiltrates present with some interval worsening compared to previous chest x-ray from 11/03/2018. We'll consider some diuretics at this point in time. These could be also related to aspiration-induced acute lung injury and the patient started on 3 L of oxygen nasal cannula. on 11/06/2018 the patient is feeling better. On examination his lung crackles improved. He was given a dose of Lasix following which she had significant am ount of urine output. On today's evaluation, pulse ox on room air is a 85% and the patient was placed back on oxygen at 2 L. No issues for now. He had a bowel movement yesterday which was quite comforting his abdominal distention improved following that. Echo of the heart is still pending for now and this was done earlier this morning. He is on oral Lasix 20 mg by mouth daily. He remains on IV Zosyn. He remains on oral Zithromax. Repeat chest x-rays to follow in a.m. On 11/07/2018, the patient is being seen for a follow-up. The patient is doing much better compared to yesterday. Pulse ox on room air is up to 91-92%. No nausea. No vomiting cannot palpate. Abdominal distention. Remains on IV Zosyn. Significant improvement in his condition over the past 24 hours. Chest x-ray findings are essentially stable. The patient is doing well. He is ambulating. Objective - Vital Signs Vital signs: Vital Signs Temp 97.8 F 11/07/18 11:07 Pulse 84 11/07/18 12:50 Resp 18 11/07/18 11:49 BP 128/61 11/07/18 11:07 Pulse Ox 91 L 11/07/18 11:07 Intake & Output 11/06/18 11/07/18 11/07/18 18:59 06:59 18:59 Intake Total 430 900 480 Output Total 2100 2225 1150 Balance -1670 -1325 -670 Weight 94 kg Intake: Intake, IV Titration 100 Amount Piperacillin-Tazobactam 3 100 .375 gm In Sodium Chloride 0.9% 100 ml @ 25 mls/hr IVPB Q8HR [facility] Rx# :[id number] Oral 430 800 480 Output: Urine 2100 2225 1150 Other: Voiding Method Toilet Urinal # Voids 2 # Bowel Movements 1 - Exam GENERAL EXAM: Alert, pleasant, 58-year-old white male, on 3 L of oxygen comfortable in no apparent distress. HEAD: Normocephalic/atraumatic. EYES: Normal reaction of pupils, equal size. Conjunctiva pink, sclera white. NOSE: Clear with pink turbinates. THROAT: No erythema or exudates. NECK: No masses, no JVD, no thyroid enlargement, no adenopathy. CHEST: No chest wall deformity. Symmetrical expansion. LUNGS: Equal air entry with no crackles, wheeze, rhonchi or dullness. Diminished breath sounds at the bases CVS: Regular rate and rhythm, normal S1 and S2, no gallops, no murmurs, no rubs ABDOMEN: Soft, nontender, distended. No hepatosplenomegaly, normal bowel sounds, no guarding or rigidity. EXTREMITIES: No clubbing, no edema, no cyanosis, 2+ pulses and upper and lower extremities. MUSCULOSKELETAL: Muscle strength and tone normal. SPINE: No scoliosis or deformity SKIN: No rashes CENTRAL NERVOUS SYSTEM: Alert and oriented -3. No focal deficits, tone is normal in all 4 extremities. PSYCHIATRIC: Alert and oriented -3. Appropriate affect. Intact judgment and insight. - Labs CBC & Chem 7: 11/07/18 06:08 11/07/18 06:08 Labs: Abnormal Lab Results - Last 24 Hours (Table) 11/02/18 11/06/18 11/06/18 Range/Units 10:45 16:43 20:42 RBC (4.30-5.90) m/uL Hgb (13.0-17.5) gm/dL Hct (39.0-53.0) % MCHC (31.0-37.0) g/dL RDW (11.5-15.5) % Plt Count (150-450) k/uL Glucose (74-99) mg/dL POC Glucose (mg/dL) 124 H 182 H (75-99) mg/dL Albumin (3.5-5.0) g/dL Albumin (PEP) 2.86 L (3.80-4.90) g/dL Aimzj-7-Jjhgohtgi 0.62 H (0.10-0.40) g/dL Gamma Globulins 1.75 H (0.70-1.50) g/dL 11/07/18 11/07/18 11/07/18 Range/Units 05:46 06:08 06:08 RBC 3.34 L (4.30-5.90) m/uL Hgb 9.8 L (13.0-17.5) gm/dL Hct 32.0 L (39.0-53.0) % MCHC 30.7 L (31.0-37.0) g/dL RDW 18.5 H (11.5-15.5) % Plt Count 139 L (150-450) k/uL Glucose 181 H (74-99) mg/dL POC Glucose (mg/dL) 146 H (75-99) mg/dL Albumin 3.3 L (3.5-5.0) g/dL Albumin (PEP) (3.80-4.90) g/dL Gljft-5-Lobodcxtb (0.10-0.40) g/dL Gamma Globulins (0.70-1.50) g/dL Assessment and Plan Plan: 1 acute bilateral lower lobe pneumonia left more than right with airspace disease and secondary shortness of breath, urine culture showed evidence of Beta hemolytic strep group C, Irena glabrata and Irena albicans Consider aspiration pneumonia post endoscopy/EGD. The patient's oxygenation is improved and the patient is currently on room air. He completing antibiotic with Zosyn. 2 nonspecific enlarged hilar and based on lymph node, chronicity is not known, will need to be addressed at a later stage after clearing of the pneumonia 3 acute febrile illness secondary to above, recovered and the patient is currently afebrile. 4 chronic abdominal distention with a CAT scan of the abdomen and pelvis showing massive distention of the stomach and portions of the duodenum, general surgeries on the case and the patient has an NG tube in place. The patient also has a small umbilical hernia and ventral hernia which is easily reducible. currently, the NG tube is out. The patient is having adequate amount of bowel movements. No surgical interventions a repeat endoscopy planned at this point in time. Discussed the case with general surgery. 5 COPD 6 peripheral vascular disease with previous angioplasty of the left SFA 7 diabetes mellitus 8 infrarenal aortic dissection, stable 9 hypertension 10 hyperlipidemia 11 seizure disorder on Keppra 12 history of chronic back pain currently on a pain pump 13 nicotine dependence 14 colonic diverticulosis 15 altered mentation likely related to metabolic encephalopathy 16 hepatitis C antibody positive Plan The patient is much improved. Oxygenation is improved. The patient is on IV Zosyn. No need for home O2 at this point in time. Check ambulatory oxygenation saturation. Home today to be followed up on outpatient basis.
[2018-11-08 16:03] LABS: HCV Quant Log 6.52 (<1.08)
== END 2018-11-07 13:40 | disposition home or self-care (01) | DRG 871 ==
LOC: EC 16:32 → 3SCARD 20:12
PROVIDERS: ADMIT Internal Medicine; ATTEND Internal Medicine
DX: A41.9 Sepsis, unspecified organism (principal); G93.41 Metabolic encephalopathy; I71.02 Dissection of abdominal aorta; J69.0 Pneumonitis due to inhalation of food and vomit; K56.7 Ileus, unspecified; B18.2 Chronic viral hepatitis C; D12.3 Benign neoplasm of transverse colon; D50.9 Iron deficiency anemia, unspecified; E11.51 Type 2 diabetes mellitus with diabetic peripheral angiopathy without gangrene; E78.5 Hyperlipidemia, unspecified; F17.210 Nicotine dependence, cigarettes, uncomplicated; F22 Delusional disorders; F32.9 Major depressive disorder, single episode, unspecified; F41.9 Anxiety disorder, unspecified; G40.909 Epilepsy, unspecified, not intractable, without status epilepticus; I10 Essential (primary) hypertension; J44.9 Chronic obstructive pulmonary disease, unspecified; K29.50 Unspecified chronic gastritis without bleeding; K42.9 Umbilical hernia without obstruction or gangrene; K43.9 Ventral hernia without obstruction or gangrene; K57.30 Diverticulosis of large intestine without perforation or abscess without bleeding; G89.29 Other chronic pain; M54.9 Dorsalgia, unspecified; B95.4 Other streptococcus as the cause of diseases classified elsewhere; B37.9 Candidiasis, unspecified; R09.89 Other specified symptoms and signs involving the circulatory and respiratory systems; K76.89 Other specified diseases of liver; Z96.89 Presence of other specified functional implants; Z79.02 Long term (current) use of antithrombotics/antiplatelets; Z79.4 Long term (current) use of insulin; Z79.82 Long term (current) use of aspirin; Z79.899 Other long term (current) drug therapy; Z82.5 Family history of asthma and other chronic lower respiratory diseases; Z83.3 Family history of diabetes mellitus; Z86.73 Personal history of transient ischemic attack (TIA), and cerebral infarction without residual deficits; Z71.6 Tobacco abuse counseling
CPT/HCPCS: 36415; 70450; 71045; 71046; 71260; 74018; 74177; 74245; 76705; 80053; 81003; 82105; 82140; 82150; 82607; 82728; 82746; 83036; 83540; 83550; 83605; 83615; 83690; 83880; 83883; 84165; 84207; 84425; 84443; 84484; 85025; 85610; 85652; 85730; 86038; 86308; 86334; 86431; 86706; 86780; 86803; 87040; 87070; 87081; 87086; 87205; 87340; 87390; 87430; 87502; 87522; 87902; 93005; 93306; 94640; 94760; 96361; 96365; 96366; 96375; 99285

== ENCOUNTER → 2018-12-21 | Outpatient (CLI) | payer OTHER ==
[2018-12-21 15:42] LABS: Anisocytosis Slight; Basophils % (A) 0 %; Eosinophils # (A) 0.2 k/uL (0-0.7); Eosinophils % (A) 3 %; HCT 39.3 % (39.0-53.0); HGB 12.4 gm/dL (13.0-17.5); Lymphocytes # (A) 1.4 k/uL (1.0-4.8); Lymphocytes % (A) 20 %; MCH 30.7 pg (25.0-35.0); MCHC 31.5 g/dL (31.0-37.0); MCV 97.3 fL (80.0-100.0); Macrocytosis Slight; Mean Platelet Volume 7.5; Monocytes # (A) 0.5 k/uL (0-1.0); Monocytes % (A) 7 %; Neutrophils # (A) 4.5 k/uL (1.3-7.7); Neutrophils % (A) 66 %; RBC 4.05 m/uL (4.30-5.90); RDW 17.7 % (11.5-15.5); WBC 6.8 k/uL (3.8-10.6)
[2018-12-21 16:51] LABS: Erythrocyte Sedimentation Rate 36 mm/hr (0-15)
[2018-12-21 17:18] LABS: Hypochromasia (M) Present; Platelet Count 99 k/uL (150-450)
== END | disposition home or self-care (01) ==
LOC: LABWHC1 14:54
PROVIDERS: ATTEND Psychiatry & Neurology Pain Medicine
DX: Z51.81 Encounter for therapeutic drug level monitoring (principal)
CPT/HCPCS: 36415; 85025; 85652; 86140

== ENCOUNTER → 2019-02-16 | Outpatient (CLI) | payer OTHER ==
[2019-02-16 13:54] LABS: Basophils % (A) 0 %; Eosinophils # (A) 0.2 k/uL (0-0.7); Eosinophils % (A) 4 %; HCT 40.3 % (39.0-53.0); HGB 12.8 gm/dL (13.0-17.5); Lymphocytes # (A) 1.1 k/uL (1.0-4.8); Lymphocytes % (A) 20 %; MCH 32.3 pg (25.0-35.0); MCHC 31.8 g/dL (31.0-37.0); MCV 101.8 fL (80.0-100.0); Macrocytosis Slight; Mean Platelet Volume 7.7; Monocytes # (A) 0.3 k/uL (0-1.0); Monocytes % (A) 6 %; Neutrophils # (A) 3.8 k/uL (1.3-7.7); Neutrophils % (A) 68 %; Platelet Count 111 k/uL (150-450); RBC 3.96 m/uL (4.30-5.90); RDW 15.6 % (11.5-15.5); WBC 5.6 k/uL (3.8-10.6)
[2019-02-16 13:55] LABS: Prothrombin Time 10.9 sec (9.0-12.0)
[2019-02-16 19:49] LABS: Albumin 3.6 g/dL (3.80-4.90); Albumin/Globulin Ratio 1.03 (1.60-3.17); Bilirubin, Conjugated 0.2 mg/dL (0.20-0.40); Bilirubin,Unconjugated 0.1 mg/dL; Globulin 3.5 g/dL (1.6-3.3); Total Bilirubin 0.3 mg/dL (0.3-1.2); Total Protein 7.1 g/dL (6.2-8.2)
[2019-02-17 15:16] LABS: LOG HCV IU/mL 6.52 (<1.08)
== END | disposition home or self-care (01) ==
LOC: LABWHC1 13:11
PROVIDERS: ATTEND Physician Assistant
DX: B18.2 Chronic viral hepatitis C (principal)
CPT/HCPCS: 36415; 80076; 82105; 85025; 85610; 87522

== ENCOUNTER → 2019-05-01 | Outpatient (CLI) | payer OTHER ==
[2019-05-01 18:52] LABS: African American GFR (CKD) 109.5 (60.0-200.0)
== END | disposition home or self-care (01) ==
LOC: LABWHC1 11:21
PROVIDERS: ATTEND Physician Assistant
DX: B18.2 Chronic viral hepatitis C (principal)
CPT/HCPCS: 36415; 82565; 84520

== ENCOUNTER 2019-05-14 09:56 | Emergency (ER) | payer OTHER ==
[2019-05-14 10:01] VITALS: RESP 18
[2019-05-14] MEDS ORDERED: IPRATROPIUM-ALBUTEROL 3 ML NEB INHALATION STA (10:12)
--- NOTE | 2019-05-14 10:18 | ED ---
SOB HPI - General Chief Complaint: Shortness of Breath Stated Complaint: Not feeling good Time Seen by Provider: 05/14/19 10:04 Source: patient, RN notes reviewed Mode of arrival: ambulatory Limitations: no limitations - History of Present Illness Initial Comments: 58-year-old male presents emergency Department chief complaint chills and fever cough congestion. Patient states he hasn't felt well last couple days he was exposed to multiple sick people over . Patient's concerned that he may have pneumonia. He doesn't that he is a smoker and has chronic shortness of breath. Positive intermittent to home has not been doing them. Patient denies any chest pain, abdominal pain, nausea vomiting no leg swelling denies any headache, dizziness, neck pain or neck stiffness. Patient states that he does have a history of hypertension did take his blood pressure medications this morning but just prior arrival. - Related Data Home Medications Medication Instructions Recorded Confirmed Aspirin [Adult Low Dose Aspirin EC] 81 mg PO DAILY 08/28/15 10/30/18 Clopidogrel [Plavix] 75 mg PO DAILY 08/28/15 10/30/18 Folic Acid 1 mg PO DAILY 08/28/15 10/30/18 Lisinopril [Prinivil] 5 mg PO DAILY 08/28/15 10/30/18 Multivitamins, Thera [Multivitamin 1 tab PO DAILY 08/28/15 10/30/18 (formulary)] Albuterol Inhaler [Ventolin Hfa 1 - 2 puff INHALATION RT-Q6H PRN 07/19/18 10/30/18 Inhaler] Furosemide [Lasix] 20 mg PO DAILY 07/19/18 10/30/18 Insulin Glargine,Hum.rec.anlog 57 unit SQ DAILY 07/19/18 10/30/18 [Basaglar Kwikpen U-100] Insulin Lispro [Admelog] 9 unit SQ AC-TID 07/19/18 10/30/18 Liraglutide [Victoza 2-Selvin] 1.8 mg SQ DAILY 07/19/18 10/30/18 Pregabalin [Lyrica] 150 mg PO BID 07/20/18 10/30/18 levETIRAcetam [Keppra] 1,000 mg PO Q12HR 07/20/18 10/30/18 Ferrous Sulfate [Iron (65 MG 325 mg PO DAILY 10/20/18 10/30/18 Elemental)] HYDROcodone/APAP 5-325MG [[place] 1 tab PO TID PRN 10/20/18 10/30/18 5-325] Ondansetron HCl [Zofran] 8 mg PO Q6H PRN 10/20/18 10/30/18 Tamsulosin [Flomax] 0.4 mg PO DAILY 10/20/18 10/30/18 metFORMIN HCL 1,000 mg PO BID 10/20/18 10/30/18 Albuterol Nebulized [Ventolin 2.5 mg INHALATION RT-BID 10/30/18 10/30/18 Nebulized] Cyclobenzaprine [Flexeril] 5 mg PO TID 10/30/18 10/30/18 Ibuprofen [Motrin] 600 mg PO TID PRN 10/30/18 10/30/18 Insulin Lispro [Admelog] See Protocol SQ AC-TID 10/30/18 10/30/18 Magnesium Oxide [Mag-Ox] 250 mg PO BID 10/30/18 10/30/18 Oxybutynin Xl [Ditropan XL] 5 mg PO DAILY 10/30/18 10/30/18 Sertraline [Zoloft] 100 mg PO DAILY 10/30/18 10/30/18 Simethicone [Gas-X] 125 mg PO TID PRN 10/30/18 10/30/18 Previous Rx's Medication Instructions Recorded Amoxic-Pot Clav 875-125Mg 1 tab PO Q12HR 10 Days #20 tablet 11/07/18 [Augmentin 875-125] Nicotine 14Mg/24Hr Patch [Habitrol] 1 patch TRANSDERM DAILY 30 Days 11/07/18 #30 patch Thiamine [Vitamin B-1] 100 mg PO DAILY 30 Days #30 tab 11/07/18 Azithromycin [Zithromax Z-pack] 0 mg PO DIRECTED #1 pack 05/14/19 predniSONE 50 mg PO DAILY #5 tab 05/14/19 Allergies Allergy/AdvReac Type Severity Reaction Status Date / Time morphine AdvReac Nausea & Verified 05/14/19 10:01 Vomiting Review of Systems ROS Statement: Those systems with pertinent positive or pertinent negative responses have been documented in the HPI. ROS Other: All systems not noted in ROS Statement are negative. Past Medical History Past Medical History: COPD, CVA/TIA, Diabetes Mellitus, Hyperlipidemia, Hypertension, Memory Impairment, Seizure Disorder, Skin Disorder Additional Past Medical History / Comment(s): pain pump in back, anemia. History of Any Multi-Drug Resistant Organisms: None Reported Past Surgical History: Appendectomy, Back Surgery, Orthopedic Surgery Additional Past Surgical History / Comment(s): titanium shaft in lt leg, skin graph to rt 1st and middle finger, lt eardum replaced, cyrus. foot surgery to arch Past Anesthesia/Blood Transfusion Reactions: No Reported Reaction Past Psychological History: Anxiety, Depression Smoking Status: Current every day smoker Past Alcohol Use History: None Reported Past Drug Use History: None Reported - Past Family History Brother(s) Family Medical History: No Reported History Mother Family Medical History: COPD, Diabetes Mellitus General Exam Limitations: no limitations General appearance: alert, in no apparent distress Head exam: Present: atraumatic, normocephalic, normal inspection Eye exam: Present: normal appearance, PERRL, EOMI. Absent: scleral icterus, conjunctival injection, periorbital swelling ENT exam: Present: mucous membranes moist, TM's normal bilaterally, normal external ear exam. Absent: normal oropharynx (Mild post nasal drainage) Neck exam: Present: normal inspection, full ROM. Absent: tenderness, meningismus, lymphadenopathy Respiratory exam: Present: normal lung sounds bilaterally. Absent: respiratory distress, wheezes, rales, rhonchi, stridor Cardiovascular Exam: Present: regular rate, normal rhythm, normal heart sounds. Absent: systolic murmur, diastolic murmur, rubs, gallop, clicks GI/Abdominal exam: Present: soft, normal bowel sounds. Absent: distended, tenderness, guarding, rebound, rigid Neurological exam: Present: alert, oriented X3 Skin exam: Present: warm, dry, intact, normal color. Absent: rash Course Vital Signs 05/14/19 05/14/19 05/14/19 09:57 10:34 10:47 Temperature 97.8 F Pulse Rate 79 83 80 Respiratory 18 Rate Blood Pressure 198/81 O2 Sat by Pulse 95 Oximetry - Reevaluation(s) Reevaluation #1: 05/14/19 10:53 Patient feels improved after DuoNeb treatment updated on chest x-ray results.I counseled the patient for smoking cessation for greater than 3 minutes Medical Decision Making - Medical Decision Making Patient present for cough congestion fever or chills. Patient hasn't provided a DuoNeb treatment chest x-ray unremarkable though patient is a COPD, will be treated For mild COPD exacerbation concerning for underlying infectious. Patient given Rocephin, discharge on azithromycin and steroids. Disposition Clinical Impression: COPD exacerbation Disposition: HOME SELF-CARE Condition: Stable Instructions (If sedation given, give patient instructions): Acute Bronchitis (ED) Additional Instructions: Monitor blood glucose closely and adjust medications accordingly with steroids. Please return to the Emergency Department if symptoms worsen or any other concerns. Prescriptions: predniSONE 50 mg PO DAILY #5 tab Azithromycin [Zithromax Z-pack] 0 mg PO DIRECTED #1 pack Is patient prescribed a controlled substance at d/c from ED?: No Referrals: Sharyn Whitlock DO [Primary Care Provider] - 1-2 days Time of Disposition: 10:56
--- NOTE | 2019-05-14 10:25 | XR ---
EXAMINATION TYPE: XR chest 2V DATE OF EXAM: 05/14/2019 COMPARISON: 12/05/2018 HISTORY: Shortness of breath TECHNIQUE: Frontal and lateral views of the chest are obtained. FINDINGS: Scattered senescent parenchymal changes noted. Hyperinflation compatible with COPD. No evidence for infiltrate. No evidence for atelectasis. Heart size is stable. Mediastinal structures are stable and grossly unremarkable. No evidence for hilar prominence. Degenerative changes dorsal spine. IMPRESSION: 1. No evidence for acute pulmonary disease.
[2019-05-14] MEDS ORDERED: cefTRIAXone 1,000 MG VIAL (IM USE) IM STA (10:54)
[2019-05-14] MEDS ORDERED: methylPREDNISolone SOD SUCCI 125 MG/2 ML VIAL IM ONE (10:54)
[2019-05-14 11:18] VITALS: BP 178/73; PULSE 78; TEMP 98.1
== END 2019-05-14 11:17 | disposition home or self-care (01) ==
LOC: EC 09:56
DX: J44.1 Chronic obstructive pulmonary disease with (acute) exacerbation (principal); E11.9 Type 2 diabetes mellitus without complications; E78.5 Hyperlipidemia, unspecified; I10 Essential (primary) hypertension; G40.909 Epilepsy, unspecified, not intractable, without status epilepticus; F41.9 Anxiety disorder, unspecified; F32.9 Major depressive disorder, single episode, unspecified; F17.200 Nicotine dependence, unspecified, uncomplicated; Z71.6 Tobacco abuse counseling; Z79.4 Long term (current) use of insulin; Z79.82 Long term (current) use of aspirin; Z79.02 Long term (current) use of antithrombotics/antiplatelets; Z79.899 Other long term (current) drug therapy; Z88.5 Allergy status to narcotic agent
CPT/HCPCS: 94640; 71046; 99285; 96372 ×2; J2930; J0696

== ENCOUNTER → 2019-05-30 | Outpatient (CLI) | payer OTHER ==
[2019-05-30 14:46] LABS: Prothrombin Time 10.7 sec (9.0-12.0)
[2019-05-30 14:50] LABS: Basophils # (A) 0.1 k/uL (0-0.2); Basophils % (A) 2 %; Eosinophils # (A) 0.2 k/uL (0-0.7); Eosinophils % (A) 3 %; HCT 39.7 % (39.0-53.0); Lymphocytes # (A) 1.1 k/uL (1.0-4.8); Lymphocytes % (A) 20 %; MCH 34.7 pg (25.0-35.0); MCHC 32.8 g/dL (31.0-37.0); MCV 105.6 fL (80.0-100.0); Macrocytosis Slight; Mean Platelet Volume 7.8; Monocytes # (A) 0.3 k/uL (0-1.0); Monocytes % (A) 6 %; Neutrophils # (A) 3.8 k/uL (1.3-7.7); Neutrophils % (A) 68 %; RBC 3.76 m/uL (4.30-5.90); RDW 13.1 % (11.5-15.5); WBC 5.6 k/uL (3.8-10.6)
[2019-05-30 15:13] LABS: Platelet Count 78 k/uL (150-450)
[2019-05-30 19:02] LABS: ALT 35 U/L (10-49); AST 41 U/L (14-35); Albumin/Globulin Ratio 1.39 (1.60-3.17); Alkaline Phosphatase 104 U/L (41-126); Bilirubin, Conjugated <0.20 mg/dL (0.20-0.40); Globulin 2.8 g/dL (1.6-3.3); Total Bilirubin 0.4 mg/dL (0.2-1.2); Total Protein 6.7 g/dL (6.2-8.2)
== END | disposition home or self-care (01) ==
LOC: LABWHC1 13:53
PROVIDERS: ATTEND Physician Assistant
DX: B18.2 Chronic viral hepatitis C (principal)
CPT/HCPCS: 36415; 80076; 85025; 85610; 87522

== ENCOUNTER → 2019-07-29 | Outpatient (CLI) | payer OTHER ==
[2019-07-29 10:15] LABS: HCT 40.5 % (39.0-53.0); HGB 13.4 gm/dL (13.0-17.5); MCH 33.9 pg (25.0-35.0); MCV 102.6 fL (80.0-100.0); Macrocytosis Slight; Mean Platelet Volume 8.1; RBC 3.95 m/uL (4.30-5.90); WBC 5.6 k/uL (3.8-10.6)
[2019-07-29 10:59] LABS: Platelet Count 64 k/uL (150-450)
[2019-07-29 16:47] LABS: Reticulocyte % 1.12 % (0.10-1.80)
[2019-07-29 17:26] LABS: % Iron Saturation 18.63 (15.00-50.00); ALT 24 U/L (10-49); AST 29 U/L (14-35); African American GFR (CKD) 114.9 (60.0-200.0); Albumin/Globulin Ratio 1.34 (1.60-3.17); Alkaline Phosphatase 103 U/L (41-126); Calcium 8.8 mg/dL (8.7-10.3); Carbon Dioxide 26.5 mmol/L (21.6-31.8); Chloride 106 mmol/L (96-109); Creatine Kinase 133 U/L (35-257); Globulin 2.9 g/dL (1.6-3.3); Glucose 152 mg/dL (70-110); Iron 60 ug/dL (65-175); Non-African American GFR(CKD) 99.2 (60.0-200.0); Potassium 4.3 mmol/L (3.5-5.5); Sodium 140 mmol/L (135-145); Total Bilirubin 0.3 mg/dL (0.2-1.2); Total Iron Binding Capacity 322 ug/dL (228-460); Total Protein 6.8 g/dL (6.2-8.2)
[2019-07-29 17:34] LABS: Ferritin 141.3 ng/mL (22.0-322.0)
[2019-07-29 18:09] LABS: Folate, Serum >24.0 ng/mL
[2019-07-29 18:49] LABS: Hemoglobin A1C 8.7 % (4.0-6.0)
[2019-08-01 08:19] LABS: Vit B1(Thiamine) 94 ug/L (38-122)
== END | disposition home or self-care (01) ==
LOC: LABWHC1 09:29
PROVIDERS: ATTEND Psychiatry & Neurology Pain Medicine
DX: Z51.81 Encounter for therapeutic drug level monitoring (principal); Z79.899 Other long term (current) drug therapy; R53.83 Other fatigue
CPT/HCPCS: 36415; 80053; 82550; 82607; 82668; 82728; 82746; 83036; 83540; 83550; 84207; 84403; 84425; 84439; 84443; 84466; 84481; 84591; 85027; 85045

== ENCOUNTER → 2019-08-25 | Outpatient (CLI) | payer OTHER ==
[2019-08-25 15:22] LABS: INR 1.1 (<1.2); Prothrombin Time 11.1 sec (9.0-12.0)
[2019-08-25 15:43] LABS: Basophils % (A) 0 %; Eosinophils # (A) 0.2 k/uL (0-0.7); Eosinophils % (A) 2 %; HCT 44.2 % (39.0-53.0); HGB 14.8 gm/dL (13.0-17.5); Lymphocytes # (A) 1.4 k/uL (1.0-4.8); Lymphocytes % (A) 23 %; MCH 35.1 pg (25.0-35.0); MCHC 33.6 g/dL (31.0-37.0); MCV 104.4 fL (80.0-100.0); Macrocytosis Slight; Mean Platelet Volume 7.7; Monocytes # (A) 0.3 k/uL (0-1.0); Monocytes % (A) 5 %; Neutrophils % (A) 66 %; RBC 4.23 m/uL (4.30-5.90); RDW 13.6 % (11.5-15.5)
[2019-08-25 15:45] LABS: Platelet Count 86 k/uL (150-450)
[2019-08-25 19:59] LABS: Albumin/Globulin Ratio 1.08 (1.60-3.17); Bilirubin, Conjugated 0.2 mg/dL (0.20-0.40); Bilirubin,Unconjugated 0.4 mg/dL; Globulin 3.7 g/dL (1.6-3.3); Total Bilirubin 0.6 mg/dL (0.2-1.2); Total Protein 7.7 g/dL (6.2-8.2)
[2019-08-25 20:01] LABS: Alpha Fetoprotein, Tumor Mkr <2.5 ng/mL (0.0-7.9)
== END | disposition home or self-care (01) ==
LOC: LABWHC1 14:29
PROVIDERS: ATTEND Physician Assistant
DX: B18.2 Chronic viral hepatitis C (principal)
CPT/HCPCS: 36415; 80076; 82105; 85025; 85610; 87522

== ENCOUNTER → 2019-10-05 | Outpatient (CLI) | payer OTHER ==
[2019-10-05 15:29] LABS: Chol/HDL Ratio 4.92; LDL Cholesterol,Calculated 103.2 mg/dL (0.0-131.0); VLDL Calculation 37.8 mg/dL (5.00-40.00)
== END | disposition home or self-care (01) ==
LOC: LABWHC1 08:03
PROVIDERS: ATTEND Physician Assistant
DX: E78.5 Hyperlipidemia, unspecified (principal)
CPT/HCPCS: 36415; 80061

== ENCOUNTER → 2019-11-17 | Outpatient (CLI) | payer OTHER | END | disposition home or self-care (01) | LOC: LABWHC1 14:00 | PROVIDERS: ATTEND Surgery | DX: Z11.59 Encounter for screening for other viral diseases (principal) ==

== ENCOUNTER 2019-11-21 06:08 | Day surgery (SDC) | payer OTHER ==
[2019-11-20 11:49] VITALS: BMI 32.8
[~2019-11-21 06:08] MED LIST changes: +ACETAMINOPHEN TAB 500 MG TAB PO ONE; +DEXAMETHASONE SOD PHOSPHATE 10 MG/ML 1 ML VIAL IV ONE; +HEPARIN SODIUM,PORCINE 5,000 UNIT/ML 1 ML VIAL SQ ONE; +HYDROmorphone 0.5 MG/0.5 ML SYRINGE IVP PRN; +LIDOCAINE 1% (10MG/ML) FOR IV START INTRADERMA PRN; -LIDOCAINE 1% 20 ML VIAL (10MG/ML) FOR IV START INTRADERMA PRN; +MIDAZOLAM 2 MG/2 ML VIAL IV PRN; +ONDANSETRON 4 MG/2 ML VIAL IVP ONE; +Pre Op ABX Message 1 EACH MISC MISCELLANE ONE
[2019-11-21 06:51] LABS: Glucose,Whole Blood 210 mg/dL (75-99)
[2019-11-21] MEDS ORDERED: NA PHOS,M-B/NA PHOS,DI-BA 133 ML ENEMA RECTAL ONE (07:01)
[2019-11-21] MEDS ORDERED: MIDAZOLAM 2 MG/2 ML VIAL ONE (07:45)
[2019-11-21] MEDS ORDERED: PROPOFOL 10 MG/ML 20 ML VIAL IV ONE (07:45)
[2019-11-21] MEDS ORDERED: fentaNYL (PF) 50 MCG/ML 2 ML AMP ONE (07:45)
--- NOTE | 2019-11-21 07:52 | P.GSHP ---
History of Present Illness H&P Date: 11/21/19 Chief Complaint: Internal and external hemorrhoids This a 59-year-old male who presents today for hemorrhoids 3. Patient's had issues with chronic pain and bleeding from hemorrhoids. Patient will undergo hemorrhoidectomy. He understands was surgery including postoperative pain and bleeding and drainage. Past Medical History Past Medical History: COPD, CVA/TIA, Diabetes Mellitus, Hyperlipidemia, Hypertension, Memory Impairment, Seizure Disorder Additional Past Medical History / Comment(s): pain pump in back, anemia. CHRONIC HEP C History of Any Multi-Drug Resistant Organisms: None Reported Past Surgical History: Appendectomy, Back Surgery, Orthopedic Surgery Additional Past Surgical History / Comment(s): titanium shaft in lt leg, skin graph to rt 1st and middle finger, lt eardum replaced, cyrus. foot surgery to arch, pain pump in back, colonoscopy, bilat cataracts removed with lens implants Past Anesthesia/Blood Transfusion Reactions: No Reported Reaction Smoking Status: Current every day smoker - Past Family History Brother(s) Family Medical History: No Reported History Mother Family Medical History: COPD, Diabetes Mellitus Medications and Allergies Home Medications Medication Instructions Recorded Confirmed Type Aspirin [Adult Low Dose Aspirin EC] 81 mg PO DAILY 08/28/15 11/20/19 History Clopidogrel [Plavix] 75 mg PO DAILY 08/28/15 11/20/19 History Folic Acid 1 mg PO DAILY 08/28/15 11/20/19 History Albuterol Inhaler (Mhu) [Ventolin 1 - 2 puff INHALATION RT-Q6H PRN 07/19/18 11/20/19 History Hfa Inhaler (Mhu)] Insulin Glargine,Hum.rec.anlog 70 unit SQ DAILY 07/19/18 11/20/19 History [Basaglar Kwikpen U-100] Liraglutide [Victoza 2-Selvin] 1.8 mg SQ DAILY 07/19/18 11/20/19 History levETIRAcetam [Keppra] 1,000 mg PO Q12HR 07/20/18 11/20/19 History Ferrous Sulfate [Iron (65 MG 325 mg PO DAILY 10/20/18 11/20/19 History Elemental)] HYDROcodone/APAP 5-325MG [[place] 1 tab PO TID PRN 10/20/18 11/20/19 History 5-325] Ondansetron HCl [Zofran] 8 mg PO Q6H PRN 10/20/18 11/20/19 History Tamsulosin [Flomax] 0.4 mg PO DAILY 10/20/18 11/20/19 History metFORMIN HCL 1,000 mg PO BID 10/20/18 11/20/19 History Albuterol Nebulized [Ventolin 2.5 mg INHALATION RT-BID 10/30/18 11/20/19 History Nebulized] Cyclobenzaprine [Flexeril] 5 mg PO QID 10/30/18 11/20/19 History Ibuprofen [Motrin] 600 mg PO TID PRN 10/30/18 11/20/19 History Insulin Lispro [Admelog] See Protocol SQ AC-TID 10/30/18 11/20/19 History Magnesium Oxide [Mag-Ox] 250 mg PO BID 10/30/18 11/20/19 History Sertraline [Zoloft] 100 mg PO DAILY 10/30/18 11/20/19 History Thiamine [Vitamin B-1] 100 mg PO DAILY 30 Days #30 tab 11/07/18 11/20/19 Rx Inhaler-Name Unknown 1 puff INHALATION BID 11/20/19 History Lisinopril 20 mg PO DAILY 11/20/19 11/20/19 History PARoxetine HCL 40 mg PO DAILY 11/20/19 11/20/19 History Pregabalin [Lyrica] 100 mg PO BID 11/20/19 11/20/19 History Umeclidinium [place] [Incruse 1 puff INHALATION DAILY 11/20/19 11/20/19 History Ellipta] Allergies Allergy/AdvReac Type Severity Reaction Status Date / Time morphine AdvReac Nausea & Verified 11/21/19 06:32 Vomiting Surgical - Exam Vital Signs Temp Pulse Resp BP 97 F L 88 16 183/89 11/21/19 06:29 11/21/19 06:29 11/21/19 06:29 11/21/19 06:29 - General well developed, well nourished, no distress - Eyes PERRL - ENT normal pinna - Neck no masses - Respiratory normal expansion - Cardiovascular Rhythm: regular - Abdomen Abdomen: soft, non tender - Rectum Internal and external hemorrhoids Results - Labs Abnormal Lab Results - Last 24 Hours (Table) 11/21/19 Range/Units 06:49 POC Glucose (mg/dL) 210 H (75-99) mg/dL Assessment and Plan Assessment: Internal and external hemorrhoids. We'll perform hemorrhoidectomy.
[2019-11-21] MEDS ORDERED: BUPIVACAIN-EPI 0.25%-1:200,000 30 ML VIAL SQ ONE ×2 (08:12)
[2019-11-21] MEDS ORDERED: GELATIN SPONGE,ABSORB (SMALL) 1 EACH SPONGE TOPICAL ONE (08:39)
--- NOTE | 2019-11-21 08:43 | P.OP ---
Date of Procedure: 11/21/19 Preoperative Diagnosis: Internal and external hemorrhoids Postoperative Diagnosis: Internal and external hemorrhoids Procedure(s) Performed: Hemorrhoidectomy Anesthesia: MAC Surgeon: Prosper Santiago Estimated Blood Loss (ml): 25 Pathology: other (InternalHemorrhoids) Condition: stable Disposition: PACU Description of Procedure: The patient's placed on the operative table in the supine position. He received IV sedation. He is in place in the prone position. His anus prepped and draped usual sterile fashion. The anal retractors placed in the anus after the anus anesthetized 1% local Xylocaine. The left lateral hemorrhoidal column was grasped and using Harmonic scissors the hemorrhoid was performed. The mucosa was then closed with 3-0 Vicryl. The right anterior hemorrhoidal column was then grasped with an Allis clamp and then extended divided with Harmonic scissors. The mucosa was then closed using 3-0 Vicryl suture. No bleeding was seen. Patient top she will was sent to recovery in stable condition.
[2019-11-21 09:01] VITALS: TEMP 98
[2019-11-21 09:35] VITALS: RESP 18
[2019-11-21 10:04] LABS: Glucose,Whole Blood 266 mg/dL (75-99)
[2019-11-21 10:32] VITALS: BP 177/89; PULSE 84
== END 2019-11-21 11:20 | disposition home or self-care (01) ==
LOC: OR 06:08
PROVIDERS: ATTEND Surgery
DX: K64.8 Other hemorrhoids (principal); K64.4 Residual hemorrhoidal skin tags; E11.9 Type 2 diabetes mellitus without complications; J44.9 Chronic obstructive pulmonary disease, unspecified; E78.5 Hyperlipidemia, unspecified; I10 Essential (primary) hypertension; R41.3 Other amnesia; G40.909 Epilepsy, unspecified, not intractable, without status epilepticus; D64.9 Anemia, unspecified; B18.2 Chronic viral hepatitis C; K08.109 Complete loss of teeth, unspecified cause, unspecified class; F17.210 Nicotine dependence, cigarettes, uncomplicated; Z86.73 Personal history of transient ischemic attack (TIA), and cerebral infarction without residual deficits; Z97.8 Presence of other specified devices; Z90.49 Acquired absence of other specified parts of digestive tract; Z98.890 Other specified postprocedural states; Z96.89 Presence of other specified functional implants; Z98.41 Cataract extraction status, right eye; Z98.42 Cataract extraction status, left eye; Z96.1 Presence of intraocular lens; Z79.82 Long term (current) use of aspirin; Z79.02 Long term (current) use of antithrombotics/antiplatelets; Z79.4 Long term (current) use of insulin; Z79.899 Other long term (current) drug therapy; Z88.5 Allergy status to narcotic agent; Z82.5 Family history of asthma and other chronic lower respiratory diseases; Z83.3 Family history of diabetes mellitus
CPT/HCPCS: 88304; 46260; J2250; J1644; J1100; J2405; J3010; J2704

== ENCOUNTER → 2019-12-25 | Outpatient (CLI) | payer OTHER ==
[2019-12-25 20:20] LABS: African American GFR (CKD) 85.3 (60.0-200.0); Anion Gap 7.2 mmol/L (4.00-12.00); BUN/Creat Ratio 18.18 Ratio (12.00-20.00); Calcium 9.4 mg/dL (8.7-10.3); Carbon Dioxide 27.8 mmol/L (21.6-31.8); Non-African American GFR(CKD) 73.6 (60.0-200.0); Potassium 4.6 mmol/L (3.5-5.5)
== END | disposition home or self-care (01) ==
LOC: LABWHC1 13:51
PROVIDERS: ATTEND Physician Assistant
DX: I10 Essential (primary) hypertension (principal)
CPT/HCPCS: 36415; 80048

== ENCOUNTER → 2020-02-20 | Outpatient (CLI) | payer OTHER ==
[2020-02-20 16:29] LABS: African American GFR (CKD) 95.7 (60.0-200.0); Anion Gap 6.1 mmol/L (4.00-12.00); Calcium 9.4 mg/dL (8.7-10.3); Carbon Dioxide 27.9 mmol/L (21.6-31.8); Chol/HDL Ratio 4.95; LDL Cholesterol,Calculated 111.8 mg/dL (0.0-131.0); Magnesium 1.9 mg/dL (1.5-2.4); Non-African American GFR(CKD) 82.6 (60.0-200.0); Potassium 4.6 mmol/L (3.5-5.5); VLDL Calculation 38.2 mg/dL (5.00-40.00)
== END | disposition home or self-care (01) ==
LOC: LABWHC1 08:56
PROVIDERS: ATTEND Physician Assistant
DX: I10 Essential (primary) hypertension (principal); E78.5 Hyperlipidemia, unspecified; R53.83 Other fatigue
CPT/HCPCS: 36415; 80048; 80061; 83735; 84443

== ENCOUNTER 2020-04-04 17:46 | Observation (INO) | payer OTHER ==
[2020-04-04 19:05] LABS: Basophils % (A) 0 %; Eosinophils # (A) 0.2 k/uL (0-0.7); Eosinophils % (A) 3 %; HCT 35.9 % (39.0-53.0); HGB 11.2 gm/dL (13.0-17.5); Lymphocytes # (A) 1.4 k/uL (1.0-4.8); Lymphocytes % (A) 17 %; MCH 33.2 pg (25.0-35.0); MCHC 31.3 g/dL (31.0-37.0); Macrocytosis Moderate; Mean Platelet Volume 7.3; Monocytes # (A) 0.4 k/uL (0-1.0); Monocytes % (A) 5 %; Neutrophils # (A) 5.6 k/uL (1.3-7.7); Neutrophils % (A) 72 %; Platelet Count 113 k/uL (150-450); RBC 3.39 m/uL (4.30-5.90); RDW 14.4 % (11.5-15.5); WBC 7.8 k/uL (3.8-10.6)
[2020-04-04 19:15] LABS: INR 0.9 (<1.2); Partial Thromboplastin Time 22.8 sec (22.0-30.0); Prothrombin Time 9.9 sec (9.0-12.0)
[2020-04-04 19:16] LABS: Glucose,Whole Blood 150 mg/dL (75-99)
[2020-04-04 19:21] LABS: ALT 22 U/L (4-49); AST 38 U/L (17-59); Acetaminophen <10.0 ug/mL; African American GFR (CKD) >90 (>60 ml/min/1.73 sqM); Alcohol <10 mg/dL; Alkaline Phosphatase 104 U/L (38-126); Anion Gap 7 mmol/L; Blood Urea Nitrogen 21 mg/dL (9-20); Carbon Dioxide 25 mmol/L (22-30); Chloride 105 mmol/L (98-107); Creatine Kinase 110 U/L (55-170); Glucose 163 mg/dL (74-99); Non-African American GFR(CKD) >90 (>60 ml/min/1.73 sqM); Potassium 4.5 mmol/L (3.5-5.1); Salicylate <1.0 mg/dL; Sodium 137 mmol/L (137-145); Total Bilirubin 0.4 mg/dL (0.2-1.3); Total Protein 8.3 g/dL (6.3-8.2)
--- NOTE | 2020-04-04 19:21 | XR ---
EXAMINATION: XR chest 2V DATE AND TIME: 04/04/2020 7:10 PM CLINICAL INDICATION: PHH; altered mental status TECHNIQUE: AP and lateral COMPARISON: 05/14/2019 FINDINGS: The lungs are clear. The pleural spaces are negative. The cardiac silhouette is not enlarged. The remainder of the mediastinal silhouette is unremarkable. The skeletal structures and soft tissues are negative for acute findings. IMPRESSION: NO ACUTE PROCESS.
--- NOTE | 2020-04-04 20:02 | CT ---
EXAMINATION TYPE: CT brain cspine wo con DATE OF EXAM: 04/04/2020 COMPARISON: 11/03/2018 HISTORY: Altered mental status. CT DLP: 1474.2 mGycm Automated exposure control for dose reduction was used. TECHNIQUE: CT scan of the head and cervical spine are performed without contrast. FINDINGS: There is no acute intracranial hemorrhage, mass effect, or midline shift identified. The previously seen right anterior frontal zone of encephalomalacia is unchanged. The globes are intact a nd the bilateral paranasal sinuses, right mastoid sinus air cells, and bilateral middle ear cavities are clear. 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 Cervical spine is visualized in its entirety from C1 through upper thoracic levels and demonstrates s atisfactory alignment without evidence of acute fracture or dislocation. Prevertebral soft tissue ap pears within normal limits. Moderate multilevel cervical spondylosis changes noted. The C1-C2 articul ation is unremarkable. IMPRESSION: 1. There is no acute fracture or dislocation evident in the cervical spine. 2. No acute intracranial hemorrhage, mass effect, or midline shift is seen.
--- NOTE | 2020-04-04 20:32 | ED ---
General Adult HPI - General Chief complaint: Fall Stated complaint: Fall - sent by PCP Time Seen by Provider: 04/04/20 18:15 Source: patient, family Mode of arrival: wheelchair Limitations: physical limitation - History of Present Illness Initial comments: Patient is a 59-year-old male past medical history of chronic pain with a pain pump, seizure disorder, diabetes presents emergency room in with reported altered mental status. The patient's is at bedside and helps provide history. States that he has been hallucinating for the past 3 days. He woke up in the morning and thought that there was rat droppings on the kitchen counter. The states that it was only bread crumbs. She reports another incident where the patient was outside and picked believe. He felt that there were spiders all over the top of it. He has seemed more weak. Did sustain 3 falls but denies hitting his head. He is supposed to be on insulin however has been out of his prescription for the past week. He also had his pain pump refilled one and a half weeks ago and is concerned that this is a reason why he is confused. There is no known drug use. Patient has not had any fevers or chills. Denies any neck pain. Patient was seen in his primary care office. She was concerned about his mental status and therefore called his . brought him into the emergency department. No other alleviating, precipitating or modifying factors - Related Data Home Medications Medication Instructions Recorded Confirmed Aspirin [Adult Low Dose Aspirin EC] 81 mg PO DAILY 08/28/15 04/04/20 Clopidogrel [Plavix] 75 mg PO DAILY 08/28/15 04/04/20 Folic Acid 1 mg PO DAILY 08/28/15 04/04/20 Liraglutide [Victoza 2-Selvin] 1.8 mg SQ DAILY 07/19/18 04/04/20 levETIRAcetam [Keppra] 1,000 mg PO Q12HR 07/20/18 04/04/20 Ferrous Sulfate [Iron (65 MG 325 mg PO DAILY 10/20/18 04/04/20 Elemental)] HYDROcodone/APAP 5-325MG [[place] 1 tab PO BID PRN 10/20/18 04/04/20 5-325] Tamsulosin [Flomax] 0.4 mg PO DAILY 10/20/18 04/04/20 metFORMIN HCL 1,000 mg PO BID 10/20/18 04/04/20 Insulin Lispro [Admelog] See Protocol SQ AC-TID 10/30/18 04/04/20 Magnesium Oxide [Mag-Ox] 250 mg PO BID 10/30/18 04/04/20 Umeclidinium [place] [Incruse 1 puff INHALATION RT-DAILY 11/20/19 04/04/20 Ellipta] Insulin Glargine,Hum.rec.anlog 50 unit SQ HS 04/04/20 04/04/20 [Lantus Solostar] Sertraline [Zoloft] 200 mg PO HS 04/04/20 04/04/20 Triamterene-Hctz 37.5-25Mg 1 tab PO DAILY 04/04/20 04/04/20 [Maxzide 37.5-25] Valsartan [Diovan] 160 mg PO BID 04/04/20 04/04/20 Previous Rx's Medication Instructions Recorded Thiamine [Vitamin B-1] 100 mg PO DAILY 30 Days #30 tab 11/07/18 Cyclobenzaprine [Flexeril] 5 mg PO BID #0 04/06/20 Allergies Allergy/AdvReac Type Severity Reaction Status Date / Time morphine AdvReac Nausea & Verified 04/04/20 20:07 Vomiting Review of Systems ROS Statement: Those systems with pertinent positive or pertinent negative responses have been documented in the HPI. ROS Other: All systems not noted in ROS Statement are negative. Past Medical History Past Medical History: COPD, CVA/TIA, Diabetes Mellitus, Hyperlipidemia, Hypertension, Memory Impairment, Seizure Disorder, Skin Disorder Additional Past Medical History / Comment(s): pain pump in back, anemia. History of Any Multi-Drug Resistant Organisms: None Reported Past Surgical History: Appendectomy, Back Surgery, Orthopedic Surgery Additional Past Surgical History / Comment(s): titanium shaft in lt leg, skin graph to rt 1st and middle finger, lt eardum replaced, cyrus. foot surgery to arch Past Anesthesia/Blood Transfusion Reactions: No Reported Reaction Past Psychological History: Anxiety, Depression Smoking Status: Current every day smoker, Heavy tobacco smoker Past Alcohol Use History: None Reported Past Drug Use History: None Reported - Past Family History Brother(s) Family Medical History: No Reported History Mother Family Medical History: COPD, Diabetes Mellitus Father Additional Family Medical History / Comment(s): Father had pain problems/hallucinations. He committed suicide. General Exam Limitations: altered mental status, physical limitation General appearance: lethargic Head exam: Present: atraumatic, normocephalic, normal inspection Eye exam: Present: normal appearance, PERRL, EOMI. Absent: scleral icterus, conjunctival injection, periorbital swelling ENT exam: Present: normal exam, mucous membranes moist Neck exam: Present: normal inspection. Absent: tenderness, meningismus, lymphadenopathy Respiratory exam: Present: normal lung sounds bilaterally. Absent: respiratory distress, wheezes, rales, rhonchi, stridor Cardiovascular Exam: Present: regular rate, normal rhythm, normal heart sounds. Absent: systolic murmur, diastolic murmur, rubs, gallop, clicks GI/Abdominal exam: Present: soft, normal bowel sounds. Absent: distended, tenderness, guarding, rebound, rigid Neurological exam: Present: other (will arouse to verbal stimuli. Some responses to questioning are confused. Oriented x 2. Appears overly sedated. Has difficulty finishing full sentences without dosing off again) Course Vital Signs 04/04/20 04/04/20 04/04/20 18:12 19:39 22:30 Temperature 98.3 F Pulse Rate 77 67 76 Respiratory 14 18 18 Rate Blood Pressure 157/69 129/78 124/70 O2 Sat by Pulse 95 95 95 Oximetry 04/05/20 04/05/20 04/05/20 01:25 07:03 09:52 Temperature Pulse Rate 72 69 70 Respiratory 18 18 Rate Blood Pressure 158/80 161/69 O2 Sat by Pulse 94 L 92 L Oximetry 04/05/20 04/05/20 04/05/20 10:01 13:01 13:10 Temperature Pulse Rate 72 82 80 Respiratory Rate Blood Pressure O2 Sat by Pulse Oximetry 04/05/20 04/05/20 04/05/20 14:46 15:04 15:11 Temperature 99.3 F Pulse Rate 71 74 71 Respiratory 18 18 16 Rate Blood Pressure 162/90 O2 Sat by Pulse 93 L Oximetry EKG Findings - EKG Comments: EKG Findings:: EKG demonstrates a normal sinus rhythm with a ventricular rate of 70. GA interval 128. QRS 98. QTC of 473. No acute ST segment elevations or depressions concerning for ischemic changes Medical Decision Making - Lab Data Result diagrams: 04/05/20 08:47 04/05/20 08:47 Lab Results 04/04/20 04/04/20 04/04/20 Range/Units 18:56 18:56 18:56 WBC 7.8 (3.8-10.6) k/uL RBC 3.39 L (4.30-5.90) m/uL Hgb 11.2 L (13.0-17.5) gm/dL Hct 35.9 L (39.0-53.0) % MCV 106.0 H (80.0-100.0) fL MCH 33.2 (25.0-35.0) pg MCHC 31.3 (31.0-37.0) g/dL RDW 14.4 (11.5-15.5) % Plt Count 113 L (150-450) k/uL Neutrophils % 72 % Lymphocytes % 17 % Monocytes % 5 % Eosinophils % 3 % Basophils % 0 % Neutrophils # 5.6 (1.3-7.7) k/uL Lymphocytes # 1.4 (1.0-4.8) k/uL Monocytes # 0.4 (0-1.0) k/uL Eosinophils # 0.2 (0-0.7) k/uL Basophils # 0.0 (0-0.2) k/uL Macrocytosis Moderate PT 9.9 (9.0-12.0) sec INR 0.9 (<1.2) APTT 22.8 (22.0-30.0) sec Sodium 137 (137-145) mmol/L Potassium 4.5 (3.5-5.1) mmol/L Chloride 105 (98-107) mmol/L Carbon Dioxide 25 (22-30) mmol/L Anion Gap 7 mmol/L BUN 21 H (9-20) mg/dL Creatinine 0.84 (0.66-1.25) mg/dL Est GFR (CKD-EPI)AfAm >90 (>60 ml/min/1.73 sqM) Est GFR (CKD-EPI)NonAf >90 (>60 ml/min/1.73 sqM) Glucose 163 H (74-99) mg/dL POC Glucose (mg/dL) (75-99) mg/dL POC Glu Framing Specialist ID Calcium 9.0 (8.4-10.2) mg/dL Total Bilirubin 0.4 (0.2-1.3) mg/dL AST 38 (17-59) U/L ALT 22 (4-49) U/L Alkaline Phosphatase 104 (38-126) U/L Ammonia (<30) umol/L Creatine Kinase 110 (55-170) U/L Troponin I (0.000-0.034) ng/mL Total Protein 8.3 H (6.3-8.2) g/dL Albumin 4.0 (3.5-5.0) g/dL Urine Color Urine Appearance (Clear) Urine pH (5.0-8.0) Ur Specific [place] (1.001-1.035) Urine Protein (Negative) Urine Glucose (UA) (Negative) Urine Ketones (Negative) Urine Blood (Negative) Urine Nitrite (Negative) Urine Bilirubin (Negative) Urine Urobilinogen (<2.0) mg/dL Ur Leukocyte Esterase (Negative) Salicylates <1.0 mg/dL Urine Opiates Screen (NotDetected) Ur Oxycodone Screen (NotDetected) Urine Methadone Screen (NotDetected) Ur Propoxyphene Screen (NotDetected) Acetaminophen <10.0 ug/mL Ur Barbiturates Screen (NotDetected) U Tricyclic Antidepress (NotDetected) Levetiracetam (3.0-60.0) ug/mL Ur Phencyclidine Scrn (NotDetected) Ur Amphetamines Screen (NotDetected) U Methamphetamines Scrn (NotDetected) U Benzodiazepines Scrn (NotDetected) Urine Cocaine Screen (NotDetected) U Marijuana (THC) Screen (NotDetected) Serum Alcohol <10 mg/dL 04/04/20 04/04/20 04/04/20 Range/Units 18:56 18:56 18:56 WBC (3.8-10.6) k/uL RBC (4.30-5.90) m/uL Hgb (13.0-17.5) gm/dL Hct (39.0-53.0) % MCV (80.0-100.0) fL MCH (25.0-35.0) pg MCHC (31.0-37.0) g/dL RDW (11.5-15.5) % Plt Count (150-450) k/uL Neutrophils % % Lymphocytes % % Monocytes % % Eosinophils % % Basophils % % Neutrophils # (1.3-7.7) k/uL Lymphocytes # (1.0-4.8) k/uL Monocytes # (0-1.0) k/uL Eosinophils # (0-0.7) k/uL Basophils # (0-0.2) k/uL Macrocytosis PT (9.0-12.0) sec INR (<1.2) APTT (22.0-30.0) sec Sodium (137-145) mmol/L Potassium (3.5-5.1) mmol/L Chloride (98-107) mmol/L Carbon Dioxide (22-30) mmol/L Anion Gap mmol/L BUN (9-20) mg/dL Creatinine (0.66-1.25) mg/dL Est GFR (CKD-EPI)AfAm (>60 ml/min/1.73 sqM) Est GFR (CKD-EPI)NonAf (>60 ml/min/1.73 sqM) Glucose (74-99) mg/dL POC Glucose (mg/dL) (75-99) mg/dL POC Glu Framing Specialist ID Calcium (8.4-10.2) mg/dL Total Bilirubin (0.2-1.3) mg/dL AST (17-59) U/L ALT (4-49) U/L Alkaline Phosphatase (38-126) U/L Ammonia 57 H (<30) umol/L Creatine Kinase (55-170) U/L Troponin I <0.012 (0.000-0.034) ng/mL Total Protein (6.3-8.2) g/dL Albumin (3.5-5.0) g/dL Urine Color Urine Appearance (Clear) Urine pH (5.0-8.0) Ur Specific [place] (1.001-1.035) Urine Protein (Negative) Urine Glucose (UA) (Negative) Urine Ketones (Negative) Urine Blood (Negative) Urine Nitrite (Negative) Urine Bilirubin (Negative) Urine Urobilinogen (<2.0) mg/dL Ur Leukocyte Esterase (Negative) Salicylates mg/dL Urine Opiates Screen (NotDetected) Ur Oxycodone Screen (NotDetected) Urine Methadone Screen (NotDetected) Ur Propoxyphene Screen (NotDetected) Acetaminophen ug/mL Ur Barbiturates Screen (NotDetected) U Tricyclic Antidepress (NotDetected) Levetiracetam 31.0 (3.0-60.0) ug/mL Ur Phencyclidine Scrn (NotDetected) Ur Amphetamines Screen (NotDetected) U Methamphetamines Scrn (NotDetected) U Benzodiazepines Scrn (NotDetected) Urine Cocaine Screen (NotDetected) U Marijuana (THC) Screen (NotDetected) Serum Alcohol mg/dL 04/04/20 04/04/20 Range/Units 19:14 20:44 WBC (3.8-10.6) k/uL RBC (4.30-5.90) m/uL Hgb (13.0-17.5) gm/dL Hct (39.0-53.0) % MCV (80.0-100.0) fL MCH (25.0-35.0) pg MCHC (31.0-37.0) g/dL RDW (11.5-15.5) % Plt Count (150-450) k/uL Neutrophils % % Lymphocytes % % Monocytes % % Eosinophils % % Basophils % % Neutrophils # (1.3-7.7) k/uL Lymphocytes # (1.0-4.8) k/uL Monocytes # (0-1.0) k/uL Eosinophils # (0-0.7) k/uL Basophils # (0-0.2) k/uL Macrocytosis PT (9.0-12.0) sec INR (<1.2) APTT (22.0-30.0) sec Sodium (137-145) mmol/L Potassium (3.5-5.1) mmol/L Chloride (98-107) mmol/L Carbon Dioxide (22-30) mmol/L Anion Gap mmol/L BUN (9-20) mg/dL Creatinine (0.66-1.25) mg/dL Est GFR (CKD-EPI)AfAm (>60 ml/min/1.73 sqM) Est GFR (CKD-EPI)NonAf (>60 ml/min/1.73 sqM) Glucose (74-99) mg/dL POC Glucose (mg/dL) 150 H (75-99) mg/dL POC Glu Framing Specialist ID Etienne Lozano Calcium (8.4-10.2) mg/dL Total Bilirubin (0.2-1.3) mg/dL AST (17-59) U/L ALT (4-49) U/L Alkaline Phosphatase (38-126) U/L Ammonia (<30) umol/L Creatine Kinase (55-170) U/L Troponin I (0.000-0.034) ng/mL Total Protein (6.3-8.2) g/dL Albumin (3.5-5.0) g/dL Urine Color Yellow Urine Appearance Clear (Clear) Urine pH 6.5 (5.0-8.0) Ur Specific [place] 1.021 (1.001-1.035) Urine Protein Negative (Negative) Urine Glucose (UA) Negative (Negative) Urine Ketones Negative (Negative) Urine Blood Negative (Negative) Urine Nitrite Negative (Negative) Urine Bilirubin Negative (Negative) Urine Urobilinogen <2.0 (<2.0) mg/dL Ur Leukocyte Esterase Negative (Negative) Salicylates mg/dL Urine Opiates Screen Detected H (NotDetected) Ur Oxycodone Screen Not Detected (NotDetected) Urine Methadone Screen Not Detected (NotDetected) Ur Propoxyphene Screen Not Detected (NotDetected) Acetaminophen ug/mL Ur Barbiturates Screen Not Detected (NotDetected) U Tricyclic Antidepress Not Detected (NotDetected) Levetiracetam (3.0-60.0) ug/mL Ur Phencyclidine Scrn Not Detected (NotDetected) Ur Amphetamines Screen Not Detected (NotDetected) U Methamphetamines Scrn Not Detected (NotDetected) U Benzodiazepines Scrn Not Detected (NotDetected) Urine Cocaine Screen Not Detected (NotDetected) U Marijuana (THC) Screen Detected H (NotDetected) Serum Alcohol mg/dL Disposition Clinical Impression: Fall, Blunt head trauma, Hallucinations, Chronic back pain Disposition: ADMITTED IP TO THIS [facility] Condition: Stable Is patient prescribed a controlled substance at d/c from ED?: No Decision to Admit Reason: Admit from EC Decision Date: 04/04/20 Decision Time: 20:32
[2020-04-04 20:49] LABS: Appearance,Urine Clear (Clear); Bilirubin,Urine Negative (Negative); Blood,Urine Negative (Negative); Color,Urine Yellow; Glucose,Urine (UA) Negative (Negative); Ketones,Urine Negative (Negative); Leukocyte Esterase,Urine Negative (Negative); Nitrite,Urine Negative (Negative); PH, Urine 6.5 (5.0-8.0); Protein,Urine Negative (Negative); Specific Gravity,Urine 1.021 (1.001-1.035); Urobilinogen,Urine <2.0 mg/dL (<2.0)
[2020-04-04] MEDS ORDERED: NALOXONE 0.4 MG/ML 1 ML VIAL IV PRN (20:59)
[2020-04-04 21:16] LABS: Amphetamine Screen,Urine Not Detected (NotDetected); Barbiturate Screen,Urine Not Detected (NotDetected); Benzodiazepines Screen,Urine Not Detected (NotDetected); Cocaine Screen,Urine Not Detected (NotDetected); Methadone Screen, Urine Not Detected (NotDetected); Opiate Screen,Urine Detected (NotDetected); Oxycodone Screen, Urine Not Detected (NotDetected); Phencyclidine Screen,Urine Not Detected (NotDetected); Tricyclic Antidepressant,Urine Not Detected (NotDetected); Urn Cannabinoid Scrn Detected (NotDetected)
[2020-04-04 21:30] LABS: Glucose,Whole Blood 141 mg/dL (75-99)
[2020-04-04] MEDS: INSULIN DETEMIR (LEVEMIR) 100 UNIT/ML SYR SQ SCH (21:41)
[2020-04-04] MEDS: levETIRAcetam 500 MG TAB PO SCH (21:53)
[2020-04-04] MEDS: SODIUM CHLORIDE 0.9% 1,000 ML IV SCH (21:54)
[2020-04-05] MEDS: SODIUM CHLORIDE 0.9% 1,000 ML IV SCH ×2 (07:27→17:35)
[2020-04-05 09:19] LABS: Basophils % (A) 0 %; Eosinophils # (A) 0.2 k/uL (0-0.7); Eosinophils % (A) 4 %; HCT 36.5 % (39.0-53.0); HGB 11.9 gm/dL (13.0-17.5); Lymphocytes # (A) 1.2 k/uL (1.0-4.8); Lymphocytes % (A) 20 %; MCH 34.1 pg (25.0-35.0); MCHC 32.6 g/dL (31.0-37.0); MCV 104.5 fL (80.0-100.0); Macrocytosis Slight; Mean Platelet Volume 7.1; Monocytes # (A) 0.4 k/uL (0-1.0); Monocytes % (A) 6 %; Neutrophils # (A) 4.3 k/uL (1.3-7.7); Neutrophils % (A) 68 %; Platelet Count 104 k/uL (150-450); RBC 3.49 m/uL (4.30-5.90); WBC 6.2 k/uL (3.8-10.6)
[2020-04-05 09:26] LABS: African American GFR (CKD) >90 (>60 ml/min/1.73 sqM); Anion Gap 6 mmol/L; Blood Urea Nitrogen 19 mg/dL (9-20); Calcium 8.6 mg/dL (8.4-10.2); Carbon Dioxide 27 mmol/L (22-30); Chloride 105 mmol/L (98-107); Glucose 149 mg/dL (74-99); Non-African American GFR(CKD) >90 (>60 ml/min/1.73 sqM); Potassium 4.4 mmol/L (3.5-5.1); Sodium 138 mmol/L (137-145)
[2020-04-05] MEDS: TRIAMTERENE-HCTZ 37.5-25MG 1 EACH TAB PO SCH (09:31)
[2020-04-05] MEDS: ASPIRIN 81 MG PO SCH (09:31)
[2020-04-05] MEDS: VALSARTAN 160 MG TAB PO SCH ×2 (09:31→21:46)
[2020-04-05] MEDS: IPRATROPIUM 0.5 MG/2.5 ML NEBU INHALATION SCH ×4 (09:31→18:53)
[2020-04-05] MEDS: CLOPIDOGREL 75 MG TAB PO SCH (09:31)
[2020-04-05 11:27] LABS: Glucose,Whole Blood 329 mg/dL (75-99)
[2020-04-05] MEDS: INSULIN ASPART (NovoLOG) 100 UNIT/ML VIAL SQ SCH ×4 (11:31→21:47)
[2020-04-05 15:39] LABS: Glucose,Whole Blood 186 mg/dL (75-99)
[2020-04-05] MEDS: levETIRAcetam 500 MG TAB PO SCH ×2 (15:45→21:47)
--- NOTE | 2020-04-05 17:08 | P.CNNES ---
History of Present Illness Consult date: 04/05/20 Requesting physician: Ceci Pacheco Reason for Consult: Acute encephalopathy History of Present Illness: Patient is a 59-year-old male came to the hospital yesterday at 5:45 PM for altered mental status. Patient has been hallucinating for the past 3 days. He woke up in the morning and asked his for a mouse trap, as he thought that there was rat droppings on the kitchen counter. The states that it was onl y bread crumbs. He later showed her crumbled up leaf with a spot on it, which he felt was a baby spider that was moving although there was none. Patient also fell 2-3 times in the last couple days. He just loses balance. He has been more wobbly. Vital signs on arrival was blood pressure 157/69, pulse rate [address] head showed no acute intracranial process. CT of the cervical spine showed no acute fracture or dislocation. EKG shows normal sinus rhythm. Chest x-ray normal. Patient's blood test shows WBC 7.8 hemoglobin 11.2 with elevated MCV 106.0. Platelets were and 13. PT/PTT normal. Chem-7 normal, AST and ALT are normal but ammonia is mildly elevated 57. CK 110 and troponin negative. UA negative. Urine drug screen positive for opiate and marijuana. Blood alcohol level negative. Patient is hepatitis C positive. Patient states that he was treated for hepatitis C within the last year. Patient's last hemoglobin A1c 8.7 on 07/29/2019, B12 992 on 07/29/2019, B6 was borderline 7, B1 94 normal, folate > 24, TSH normal. His previous rheumatoid factor is borderline +17/15, BRANDYN negative. Patient's abdominal ultrasound on 11/02/2018 showed hepatosplenomegal y. Pattern of liver is nonspecific and can be seen with hepatic steatosis, hepatitis or diffuse hepatocellular disease. Patient has been seen by myself on 11/03/2018. At that time patient presented with mild confusional state with some delusions, probably due to delirium. This was felt to relate to be possible pneumonia and other medical conditions. Patient has history of 3 mini strokes and a few seizures while he was in [place] in 2012. He has no residual deficits. Patient is on Keppra for seizures. He also has history of seizure disorder, type 2 diabetes and tobacco use of one pack per day since age 15. He quit drinking 7 years ago. Patient has history of smoking at least a pack a day since he was a teenager. In 2000, he quit for 2 years and then resumed tobacco but now smoking 1-2 packs per day. He used to drink about once a week previously but none for last 7 years. Review of Systems As above. He has been shaky, tremulous, gait imbalance. Denies headache any problem with headache, numbness tingling, focal weakness or strokelike symptoms. Denies any chest pain shortness of breath. Denies double vision. Denies any abdominal pain, nausea vomiting diarrhea. Past Medical History Past Medical History: COPD, CVA/TIA, Diabetes Mellitus, Hyperlipidemia, Hypertension, Memory Impairment, Seizure Disorder, Skin Disorder Additional Past Medical History / Comment(s): pain pump in back, anemia. History of Any Multi-Drug Resistant Organisms: None Reported Past Surgical History: Appendectomy, Back Surgery, Orthopedic Surgery Additional Past Surgical History / Comment(s): titanium shaft in lt leg, skin graph to rt 1st and middle finger, lt eardum replaced, cyrus. foot surgery to arch Past Anesthesia/Blood Transfusion Reactions: No Reported Reaction Past Psychological History: Anxiety, Depression Smoking Status: Current every day smoker, Heavy tobacco smoker Past Alcohol Use History: None Reported Past Drug Use History: None Reported - Past Family History Brother(s) Family Medical History: No Reported History Mother Family Medical History: COPD, Diabetes Mellitus Father Additional Family Medical History / Comment(s): Father had pain problems/hallucinations. He committed suicide. Medications and Allergies Home Medications Medication Instructions Recorded Confirmed Type Aspirin [Adult Low Dose Aspirin EC] 81 mg PO DAILY 08/28/15 04/04/20 History Clopidogrel [Plavix] 75 mg PO DAILY 08/28/15 04/04/20 History Folic Acid 1 mg PO DAILY 08/28/15 04/04/20 History Liraglutide [Victoza 2-Selvin] 1.8 mg SQ DAILY 07/19/18 04/04/20 History levETIRAcetam [Keppra] 1,000 mg PO Q12HR 07/20/18 04/04/20 History Ferrous Sulfate [Iron (65 MG 325 mg PO DAILY 10/20/18 04/04/20 History Elemental)] HYDROcodone/APAP 5-325MG [[place] 1 tab PO BID PRN 10/20/18 04/04/20 History 5-325] Tamsulosin [Flomax] 0.4 mg PO DAILY 10/20/18 04/04/20 History metFORMIN HCL 1,000 mg PO BID 10/20/18 04/04/20 History Cyclobenzaprine [Flexeril] 5 mg PO QID PRN 10/30/18 04/04/20 History Insulin Lispro [Admelog] See Protocol SQ AC-TID 10/30/18 04/04/20 History Magnesium Oxide [Mag-Ox] 250 mg PO BID 10/30/18 04/04/20 History Thiamine [Vitamin B-1] 100 mg PO DAILY 30 Days #30 tab 11/07/18 04/04/20 Rx Umeclidinium [place] [Incruse 1 puff INHALATION RT-DAILY 11/20/19 04/04/20 History Ellipta] Insulin Glargine,Hum.rec.anlog 50 unit SQ HS 04/04/20 04/04/20 History [Lantus Solostar] Sertraline [Zoloft] 200 mg PO HS 04/04/20 04/04/20 History Triamterene-Hctz 37.5-25Mg 1 tab PO DAILY 04/04/20 04/04/20 History [Maxzide 37.5-25] Valsartan [Diovan] 160 mg PO BID 04/04/20 04/04/20 History Allergies Allergy/AdvReac Type Severity Reaction Status Date / Time morphine AdvReac Nausea & Verified 04/04/20 20:07 Vomiting Physical Examination - Vital Signs Vital Signs: Vital Signs Temp Pulse Resp BP Pulse Ox 04/05/20 07:03 69 18 161/69 92 L 04/05/20 01:25 72 18 158/80 94 L 04/04/20 22:30 76 18 124/70 95 04/04/20 19:39 67 18 129/78 95 04/04/20 18:12 98.3 F 77 14 157/69 95 Intake and Output 04/04/20 04/05/20 04/05/20 22:59 06:59 14:59 Other: Weight 118.841 kg On examination patient is a middle aged male, appears older than his stated age. He is alert and awake fully oriented. Speech and language functions are normal. On cranial nerve examination her pupils are loaded reactive to light over visual barajas are full, extraocular muscles are intact with no nystagmus. Face is symmetric, tongue protrudes the midline. Palatal elevation and sensation normal. Hearing and shoulder shrug normal. On muscle strength testing there is no pronator drift and the strength is completely normal in the arms and legs distally and proximally reflexes are symmetric and p lantars downgoing. He has mild very fine tremors of outstretched hands. Tone and bulk of muscles normal. No carotid bruit or murmur, no peripheral edema. Chest is clear, dominant is slightly protuberant, but nontender. Results - Laboratory Findings CBC and BMP: 04/05/20 08:47 04/05/20 08:47 Abnormal Lab Findings: Abnormal Labs 04/04/20 04/04/20 04/04/20 18:56 18:56 18:56 RBC 3.39 L Hgb 11.2 L Hct 35.9 L MCV 106.0 H Plt Count 113 L BUN 21 H Glucose 163 H POC Glucose (mg/dL) Ammonia 57 H Total Protein 8.3 H Urine Opiates Screen U Marijuana (THC) Screen 04/04/20 04/04/20 04/04/20 19:14 20:44 21:29 RBC Hgb Hct MCV Plt Count BUN Glucose POC Glucose (mg/dL) 150 H 141 H Ammonia Total Protein Urine Opiates Screen Detected H U Marijuana (THC) Screen Detected H 04/05/20 04/05/20 08:47 08:47 RBC 3.49 L Hgb 11.9 L Hct 36.5 L MCV 104.5 H Plt Count 104 L BUN Glucose 149 H POC Glucose (mg/dL) Ammonia Total Protein Urine Opiates Screen U Marijuana (THC) Screen Assessment and Plan Assessment: * Probable delirium versus mild hepatic encephalopathy. Patient has presented with mild delusions and hallucinations. Patient's ammonia is elevated. Patient with history of hepatitis C. Previous abdominal ultrasound revealed hepatosplenomegaly. * History of CVA with no residual deficits. * Seizure disorder, currently in remission. * Type 2 diabetes * Tobacco user Plan: * Suggest further evaluation into possible hepatic encephalopathy. * Altered other neurological workup has been performed previously, reviewed and otherwise normal. * No other neurological workup indicated. * Recommended tobacco cessation.
[2020-04-05 17:11] LABS: Glucose,Whole Blood 181 mg/dL (75-99)
[2020-04-05 20:21] VITALS: TEMP 99
[2020-04-05 20:22] LABS: Glucose,Whole Blood 179 mg/dL (75-99)
[2020-04-05] MEDS: INSULIN DETEMIR (LEVEMIR) 100 UNIT/ML SYR SQ SCH (21:47)
--- NOTE | 2020-04-06 00:30 | P.HPIM ---
History of Present Illness H&P Date: 04/05/20 Chief Complaint: RADHA Zamarripa is a 59 yo M with PMH of T2DM, HTN, chronic back pain who presented to the ED complaining of altered mental status. He had been hallucin ating for the past few days and had complained to his of rat droppings on his kitchen counter, he also showed her a leaf with a spec of dirt that he confused for a spider. He denies any fever, chills, headache ro blurry vision. He denies confusion or fatigue today. On presentation vitals stable, labs unremarkable with exception of mildly elevated NH3, EKG and CXR wnl. UDS positive for opiates and MJ. Review of Systems All systems: negative Constitutional: Reports malaise, Reports weakness, Denies chills, Denies fever Eyes: denies blurred vision, denies pain Ears, nose, mouth and throat: Denies headache, Denies sore throat Cardiovascular: Denies chest pain, Denies shortness of breath Respiratory: Denies cough Gastrointestinal: Denies abdominal pain, Denies diarrhea, Denies nausea, Denies vomiting Musculoskeletal: Denies myalgias Integumentary: Denies pruritus, Denies rash Neurological: Reports confusion, Reports visual changes, Denies numbness, Denies weakness Psychiatric: Denies anxiety, Denies depression Endocrine: Denies fatigue, Denies weight change Past Medical History Past Medical History: COPD, CVA/TIA, Diabetes Mellitus, Hyperlipidemia, Hypertension, Memory Impairment, Seizure Disorder, Skin Disorder Additional Past Medical History / Comment(s): pain pump in back, anemia. History of Any Multi-Drug Resistant Organisms: None Reported Past Surgical History: Appendectomy, Back Surgery, Orthopedic Surgery Additional Past Surgical History / Comment(s): titanium shaft in lt leg, skin graph to rt 1st and middle finger, lt eardum replaced, cyrus. foot surgery to arch Past Anesthesia/Blood Transfusion Reactions: No Reported Reaction Past Psychological History: Anxiety, Depression Smoking Status: Current every day smoker, Heavy tobacco smoker Past Alcohol Use History: None Reported Past Drug Use History: None Reported - Past Family History Brother(s) Family Medical History: No Reported History Mother Family Medical History: COPD, Diabetes Mellitus Additional Family Medical History / Comment(s): Mother is . Father Additional Family Medical History / Comment(s): Father had pain problems/hallucinations. He committed suicide. Medications and Allergies Home Medications Medication Instructions Recorded Confirmed Type Aspirin [Adult Low Dose Aspirin EC] 81 mg PO DAILY 08/28/15 04/04/20 History Clopidogrel [Plavix] 75 mg PO DAILY 08/28/15 04/04/20 History Folic Acid 1 mg PO DAILY 08/28/15 04/04/20 History Liraglutide [Victoza 2-Selvin] 1.8 mg SQ DAILY 07/19/18 04/04/20 History levETIRAcetam [Keppra] 1,000 mg PO Q12HR 07/20/18 04/04/20 History Ferrous Sulfate [Iron (65 MG 325 mg PO DAILY 10/20/18 04/04/20 History Elemental)] HYDROcodone/APAP 5-325MG [[place] 1 tab PO BID PRN 10/20/18 04/04/20 History 5-325] Tamsulosin [Flomax] 0.4 mg PO DAILY 10/20/18 04/04/20 History metFORMIN HCL 1,000 mg PO BID 10/20/18 04/04/20 History Cyclobenzaprine [Flexeril] 5 mg PO QID PRN 10/30/18 04/04/20 History Insulin Lispro [Admelog] See Protocol SQ AC-TID 10/30/18 04/04/20 History Magnesium Oxide [Mag-Ox] 250 mg PO BID 10/30/18 04/04/20 History Thiamine [Vitamin B-1] 100 mg PO DAILY 30 Days #30 tab 11/07/18 04/04/20 Rx Umeclidinium [place] [Incruse 1 puff INHALATION RT-DAILY 11/20/19 04/04/20 History Ellipta] Insulin Glargine,Hum.rec.anlog 50 unit SQ HS 04/04/20 04/04/20 History [Lantus Solostar] Sertraline [Zoloft] 200 mg PO HS 04/04/20 04/04/20 History Triamterene-Hctz 37.5-25Mg 1 tab PO DAILY 04/04/20 04/04/20 History [Maxzide 37.5-25] Valsartan [Diovan] 160 mg PO BID 04/04/20 04/04/20 History Allergies Allergy/AdvReac Type Severity Reaction Status Date / Time morphine AdvReac Nausea & Verified 04/04/20 20:07 Vomiting Physical Exam Vitals: Vital Signs Temp Pulse Pulse Resp BP BP BP 04/05/20 20:19 99.0 F 80 180/79 04/05/20 19:00 69 04/05/20 18:53 63 04/05/20 17:14 98.5 F 62 17 170/73 04/05/20 16:48 98.9 F 81 18 165/89 04/05/20 15:11 71 16 04/05/20 15:04 74 18 04/05/20 14:46 99.3 F 71 18 162/90 04/05/20 13:10 80 04/05/20 13:01 82 04/05/20 10:01 72 04/05/20 09:52 70 04/05/20 07:03 69 18 161/69 04/05/20 01:25 72 18 158/80 Pulse Ox 04/05/20 20:19 91 L 04/05/20 19:00 04/05/20 18:53 04/05/20 17:14 93 L 04/05/20 16:48 96 04/05/20 15:11 04/05/20 15:04 04/05/20 14:46 93 L 04/05/20 13:10 04/05/20 13:01 04/05/20 10:01 04/05/20 09:52 04/05/20 07:03 92 L 04/05/20 01:25 94 L Intake and Output 04/05/20 04/05/20 04/06/20 14:59 22:59 06:59 Intake Total 540 Output Total 400 400 Balance 140 -400 Intake: Intake, IV Titration 300 Amount Sodium Chloride 0.9% 1, 300 000 ml @ 100 mls/hr IV . Q10H [facility] Rx#:[id number] Oral 240 Output: Urine 400 400 Other: Voiding Method Urinal # Voids 2 2 Weight 118.841 kg General: well nourished, well developed, NAD. Vitals reviewed Eyes: PERRL, EOMI, conjunctiva normal HENT: normocephalic, mucus membranes moist Neck: supple, no JVD Lungs: normal respiratory effort, no wheezes or rales CV: Regular rate and rhythm, no murmur. Peripheral pulses 2+ Abdomen: soft, nondistended, no organomegaly Lymph: no cervical or axillary LAD Skin: warm and dry. Neuro: A&Ox3, normal mood and affect Results CBC & Chem 7: 04/05/20 08:47 04/05/20 08:47 Labs: Abnormal Lab Results - Last 24 Hours (Table) 04/05/20 04/05/20 04/05/20 Range/Units 08:47 08:47 11:26 RBC 3.49 L (4.30-5.90) m/uL Hgb 11.9 L (13.0-17.5) gm/dL Hct 36.5 L (39.0-53.0) % MCV 104.5 H (80.0-100.0) fL Plt Count 104 L (150-450) k/uL Glucose 149 H (74-99) mg/dL POC Glucose (mg/dL) 329 H (75-99) mg/dL 04/05/20 04/05/20 04/05/20 Range/Units 15:37 17:09 20:21 RBC (4.30-5.90) m/uL Hgb (13.0-17.5) gm/dL Hct (39.0-53.0) % MCV (80.0-100.0) fL Plt Count (150-450) k/uL Glucose (74-99) mg/dL POC Glucose (mg/dL) 186 H 181 H 179 H (75-99) mg/dL Thrombosis Risk Factor Assmnt - Choose All That Apply Any of the Below Risk Factors Present?: Yes Each Factor Represents 1 point: Abnormal pulmonary function (COPD), Age 41-60 years, Obesity (BMI >25) Other Risk Factors: No Other congenital or acquired thrombophilia - If yes, enter type in comment: No Thrombosis Risk Factor Assessment Total Risk Factor Score: 3 Thrombosis Risk Factor Assessment Level: Moderate Risk Assessment and Plan (1) Altered mental status Current Visit: Yes Status: Acute Code(s): R41.82 - ALTERED MENTAL STATUS, UNSPECIFIED SNOMED Code(s): 478237679 (2) Hyperammonemia Current Visit: Yes Status: Acute Code(s): E72.20 - DISORDER OF UREA CYCLE METABOLISM, UNSPECIFIED SNOMED Code(s): 6169190 (3) Type 2 diabetes mellitus with insulin therapy Current Visit: Yes Status: Acute Code(s): E11.9 - TYPE 2 DIABETES MELLITUS WITHOUT COMPLICATIONS; Z79.4 - PENITENTIARY (CURRENT) USE OF INSULIN SNOMED Code(s): 53199764 (4) Chronic back pain Current Visit: Yes Status: Acute Code(s): M54.9 - DORSALGIA, UNSPECIFIED; G89.29 - OTHER CHRONIC PAIN SNOMED Code(s): 589528585 Plan: 1. Altered mental status. Suspect multifactorial with concern for pain pump, elevated ammonia. Neurology consult. Continue to monitor 2. T2DM. Continue lantus 50 units qhs and sliding scale 3. HTN. Cotninue valsartan 4. Elevated ammonia. Likely secondary to chronic hep C infection. Start lactulose
[2020-04-06 05:05] VITALS: BP 166/72; RESP 16
[2020-04-06 07:40] LABS: Glucose,Whole Blood 120 mg/dL (75-99)
[2020-04-06] MEDS: INSULIN ASPART (NovoLOG) 100 UNIT/ML VIAL SQ SCH (07:49)
[2020-04-06] MEDS: IPRATROPIUM 0.5 MG/2.5 ML NEBU INHALATION SCH ×2 (08:12→11:13)
[2020-04-06] MEDS ORDERED: LACTULOSE 20 GM/30 ML CUP PO SCH (09:00)
[2020-04-06] MEDS: TRIAMTERENE-HCTZ 37.5-25MG 1 EACH TAB PO SCH (10:03)
[2020-04-06] MEDS: ASPIRIN 81 MG PO SCH (10:03)
[2020-04-06] MEDS: CLOPIDOGREL 75 MG TAB PO SCH (10:03)
[2020-04-06] MEDS: VALSARTAN 160 MG TAB PO SCH (10:03)
[2020-04-06] MEDS: levETIRAcetam 500 MG TAB PO SCH (10:03)
[2020-04-06] MEDS: SODIUM CHLORIDE 0.9% 1,000 ML IV SCH (10:05)
[2020-04-06 11:24] VITALS: PULSE 77
--- NOTE | 2020-04-06 11:39 | P.DS ---
Providers Date of admission: 04/04/20 20:59 Attending physician: Dmitriy Liu MD Consults: 04/04/20 21:01 Consult Physician Urgent Consulting Provider: Radha Mccarthy Consult Reason/Comments: acute encephalopathy Do you want consulting provider notified?: Yes Primary care physician: Sharyn Whitlock [place] [facility] Course: Patient is admitted for altered mental status and multiple falls. Patient will be evaluated by physical therapy if he is strong enough for patient will discharge today his altered mental status in detail his morphine pump. Patient also has a mildly elevated ammonia level without any evidence of cirrhosis. This mild elevation of ammonia level probably is not contributing to his confusion anyways patient is in lactulose and we'll repeat ammonia level if it coming down patient will be discharged today. Patient will need to follow up in the pain clinic to diet down the dosing of his pain pump. The patient is also now muscle relaxant dose of which I'm cutting it down. PHYSICAL EXAMINATION: GENERAL: The patient is alert and oriented x3, not in any acute distress. Well developed, well nourished. HEENT: Pupils are round and equally reacting to light. EOMI. No scleral icterus. No conjunctival pallor. Normocephalic, atraumatic. No pharyngeal erythema. No thyromegaly. CARDIOVASCULAR: S1 and S2 present. No murmurs, rubs, or gallops. PULMONARY: Chest is clear to auscultation, no wheezing or crackles. ABDOMEN: Soft, nontender, nondistended, normoactive bowel sounds. No palpable organomegaly. MUSCULOSKELETAL: No joint swelling or deformity. EXTREMITIES: No cyanosis, clubbing, or on pitting bilateral pedal edema with venous stasis dermatosis. NEUROLOGICAL: Gross neurological examination did not reveal any focal deficits. SKIN: No rashes. Altered mental status, toxic encephalopathy: Secondary to morphine pain pump and muscle relaxants as mentioned above --mild hypoproteinemia etiology of which is not clear. For rest of medical problems has physician course please refer to H&P from Dr. Liu Patient Condition at Discharge: Stable Plan - Discharge Summary Discharge Rx Participant: No New Discharge Prescriptions: Continue Folic Acid 1 mg PO DAILY Clopidogrel [Plavix] 75 mg PO DAILY Aspirin [Adult Low Dose Aspirin EC] 81 mg PO DAILY Liraglutide [Victoza 2-Selvin] 1.8 mg SQ DAILY levETIRAcetam [Keppra] 1,000 mg PO Q12HR metFORMIN HCL 1,000 mg PO BID Tamsulosin [Flomax] 0.4 mg PO DAILY HYDROcodone/APAP 5-325MG [[place] 5-325] 1 tab PO BID PRN PRN Reason: Pain Ferrous Sulfate [Iron (65 MG Elemental)] 325 mg PO DAILY Insulin Lispro [Admelog] See Protocol SQ AC-TID Magnesium Oxide [Mag-Ox] 250 mg PO BID Thiamine [Vitamin B-1] 100 mg PO DAILY 30 Days #30 tab Umeclidinium [place] [Incruse Ellipta] 1 puff INHALATION RT-DAILY Sertraline [Zoloft] 200 mg PO HS Valsartan [Diovan] 160 mg PO BID Insulin Glargine,Hum.rec.anlog [Lantus Solostar] 50 unit SQ HS Triamterene-Hctz 37.5-25Mg [Maxzide 37.5-25] 1 tab PO DAILY Changed Cyclobenzaprine [Flexeril] 5 mg PO BID #0 Discharge Medication List Aspirin [Adult Low Dose Aspirin EC] 81 mg PO DAILY 08/28/15 [History] Clopidogrel [Plavix] 75 mg PO DAILY 08/28/15 [History] Folic Acid 1 mg PO DAILY 08/28/15 [History] Liraglutide [Victoza 2-Selvin] 1.8 mg SQ DAILY 07/19/18 [History] levETIRAcetam [Keppra] 1,000 mg PO Q12HR 07/20/18 [History] Ferrous Sulfate [Iron (65 MG Elemental)] 325 mg PO DAILY 10/20/18 [History] HYDROcodone/APAP 5-325MG [[place] 5-325] 1 tab PO BID PRN 10/20/18 [History] Tamsulosin [Flomax] 0.4 mg PO DAILY 10/20/18 [History] metFORMIN HCL 1,000 mg PO BID 10/20/18 [History] Insulin Lispro [Admelog] See Protocol SQ AC-TID 10/30/18 [History] Magnesium Oxide [Mag-Ox] 250 mg PO BID 10/30/18 [History] Thiamine [Vitamin B-1] 100 mg PO DAILY 30 Days #30 tab 11/07/18 [Rx] Umeclidinium [place] [Incruse Ellipta] 1 puff INHALATION RT-DAILY 11/20/19 [History] Insulin Glargine,Hum.rec.anlog [Lantus Solostar] 50 unit SQ HS 04/04/20 [History] Sertraline [Zoloft] 200 mg PO HS 04/04/20 [History] Triamterene-Hctz 37.5-25Mg [Maxzide 37.5-25] 1 tab PO DAILY 04/04/20 [History] Valsartan [Diovan] 160 mg PO BID 04/04/20 [History] Cyclobenzaprine [Flexeril] 5 mg PO BID #0 04/06/20 [Rx] Follow up Appointment(s)/Referral(s): Sharyn Whitlock DO [Primary Care Provider] - 3 Days Laith Levy MD [Family Provider] - 1-2 Days Discharge Disposition: HOME SELF-CARE
[2020-04-06 12:09] LABS: Glucose,Whole Blood 161 mg/dL (75-99)
== END 2020-04-06 13:05 | disposition home or self-care (01) ==
LOC: EC 17:46 → 6NMEDSUR 20:59
PROVIDERS: ADMIT Family Medicine; ATTEND Family Medicine
DX: G92 Toxic encephalopathy (principal); E11.9 Type 2 diabetes mellitus without complications; G40.909 Epilepsy, unspecified, not intractable, without status epilepticus; G89.29 Other chronic pain; E78.5 Hyperlipidemia, unspecified; J44.9 Chronic obstructive pulmonary disease, unspecified; R41.3 Other amnesia; D64.9 Anemia, unspecified; F32.9 Major depressive disorder, single episode, unspecified; F41.9 Anxiety disorder, unspecified; I10 Essential (primary) hypertension; L98.9 Disorder of the skin and subcutaneous tissue, unspecified; G93.40 Encephalopathy, unspecified; E72.20 Disorder of urea cycle metabolism, unspecified; B18.2 Chronic viral hepatitis C; F17.210 Nicotine dependence, cigarettes, uncomplicated; R26.89 Other abnormalities of gait and mobility; F22 Delusional disorders; R16.2 Hepatomegaly with splenomegaly, not elsewhere classified; M54.9 Dorsalgia, unspecified; E66.9 Obesity, unspecified; Z68.41 Body mass index [BMI] 40.0-44.9, adult; R29.6 Repeated falls; T40.2X5A Adverse effect of other opioids, initial encounter; T48.205A Adverse effect of unspecified drugs acting on muscles, initial encounter; E77.8 Other disorders of glycoprotein metabolism; S09.90XA Unspecified injury of head, initial encounter; W19.XXXA Unspecified fall, initial encounter; Z97.8 Presence of other specified devices; Z79.02 Long term (current) use of antithrombotics/antiplatelets; Z79.82 Long term (current) use of aspirin; Z79.899 Other long term (current) drug therapy; Z79.891 Long term (current) use of opiate analgesic; Z79.4 Long term (current) use of insulin; Z88.5 Allergy status to narcotic agent; Z86.73 Personal history of transient ischemic attack (TIA), and cerebral infarction without residual deficits; Z90.49 Acquired absence of other specified parts of digestive tract; Z83.3 Family history of diabetes mellitus; Z82.5 Family history of asthma and other chronic lower respiratory diseases; Z81.8 Family history of other mental and behavioral disorders; Z84.89 Family history of other specified conditions
CPT/HCPCS: 96360; 96361 ×3; 99285; 36415; 94640 ×4; 93005; 80053; 80048; 80177; 82140 ×2; 82550; 84484; 85025 ×2; 85610; 85730; 81003; 80306; 83520; 71046; 72125; 70450; G0378 ×3; G0480 ×2; 80320; 80329

== ENCOUNTER → 2020-04-22 | Outpatient (CLI) | payer OTHER ==
[2020-04-22 16:55] LABS: Basophils % (A) 1 %; Eosinophils # (A) 0.2 k/uL (0-0.7); Eosinophils % (A) 3 %; HCT 34.4 % (39.0-53.0); HGB 11.1 gm/dL (13.0-17.5); Lymphocytes # (A) 1.4 k/uL (1.0-4.8); Lymphocytes % (A) 22 %; MCH 33.6 pg (25.0-35.0); MCHC 32.4 g/dL (31.0-37.0); MCV 103.7 fL (80.0-100.0); Macrocytosis Slight; Mean Platelet Volume 7.3; Monocytes # (A) 0.4 k/uL (0-1.0); Monocytes % (A) 6 %; Neutrophils # (A) 4.1 k/uL (1.3-7.7); Neutrophils % (A) 65 %; Platelet Count 102 k/uL (150-450); RBC 3.32 m/uL (4.30-5.90); RDW 13.9 % (11.5-15.5); WBC 6.2 k/uL (3.8-10.6)
[2020-04-23 01:28] LABS: INR 0.99 (0.90-1.11); Prothrombin Time 10.9 sec (9.9-11.9)
[2020-04-23 01:34] LABS: Alpha Fetoprotein, Tumor Mkr <2.5 ng/mL (0.0-7.9)
[2020-04-23 01:47] LABS: ALT 21 U/L (10-49); AST 31 U/L (14-35); Albumin/Globulin Ratio 1.08 (1.60-3.17); Alkaline Phosphatase 98 U/L (41-126); Bilirubin, Conjugated <0.20 mg/dL (0.20-0.40); Globulin 3.7 g/dL (1.6-3.3); Total Bilirubin 0.3 mg/dL (0.3-1.2); Total Protein 7.7 g/dL (6.2-8.2)
== END | disposition home or self-care (01) ==
LOC: LABWHC1 14:33
PROVIDERS: ATTEND Physician Assistant
DX: B18.2 Chronic viral hepatitis C (principal)
CPT/HCPCS: 36415; 80076; 82105; 85025; 85610; 87522

== ENCOUNTER → 2020-05-06 | Outpatient (CLI) | payer OTHER | END | disposition home or self-care (01) | LOC: LABWHC1 14:46 | PROVIDERS: ATTEND Family Medicine | DX: E72.20 Disorder of urea cycle metabolism, unspecified (principal) | CPT/HCPCS: 36415; 82140 ==

== ENCOUNTER 2020-05-07 21:40 | Emergency (ER) | payer OTHER ==
[2020-05-07] MEDS ORDERED: DIPH,PERTUS(ACELL)TETVAC-LF 0.5 ML VIAL IM ONE (22:08)
--- NOTE | 2020-05-07 22:44 | ED ---
General Adult HPI - General Chief complaint: Fall Stated complaint: Fall Time Seen by Provider: 05/07/20 21:51 Source: patient, EMS, RN notes reviewed, old records reviewed Mode of arrival: EMS Limitations: no limitations - History of Present Illness Initial comments: 59-year-old male patient to ED for evaluation. Patient had a mechanical fall today fell forward hitting his head no loss of consciousness or headache no changes in vision. Small abrasion to the forehead. Patient is on Plavix aspirin. Patient denies chest pain shortness of breath. Denies any other complaints. Systemic: Pt denies fatigue, fever/chills, rash. Pt denies weakness, night sweats, weight loss. Neuro: Pt denies headache, visual disturbances, syncope or pre-syncope. HEENT: Pt denies ocular discharge or irritation, otalgia, rhinorrhea, pharyngitis or notable lymphadenopathy. Cardiopulmonary: Pt denies chest pain, SOB, heart palpitations, dyspnea on exert ion. Abdominal/GI: Pt denies abdominal pain, n/v/d. : Pt denies dysuria, burning w/ urination, frequency/urgency. Denies new onset urinary or bowel incontinence. MSK: Pt denies myalgia, loss of strength or function in extremities. Neuro: Pt denies new onset weakness, paresthesias. - Related Data Home Medications Medication Instructions Recorded Confirmed Aspirin [Adult Low Dose Aspirin EC] 81 mg PO DAILY 08/28/15 04/04/20 Clopidogrel [Plavix] 75 mg PO DAILY 08/28/15 04/04/20 Folic Acid 1 mg PO DAILY 08/28/15 04/04/20 Liraglutide [Victoza 2-Selvin] 1.8 mg SQ DAILY 07/19/18 04/04/20 levETIRAcetam [Keppra] 1,000 mg PO Q12HR 07/20/18 04/04/20 Ferrous Sulfate [Iron (65 MG 325 mg PO DAILY 10/20/18 04/04/20 Elemental)] HYDROcodone/APAP 5-325MG [[place] 1 tab PO BID PRN 10/20/18 04/04/20 5-325] Tamsulosin [Flomax] 0.4 mg PO DAILY 10/20/18 04/04/20 metFORMIN HCL 1,000 mg PO BID 10/20/18 04/04/20 Insulin Lispro [Admelog] See Protocol SQ AC-TID 10/30/18 04/04/20 Magnesium Oxide [Mag-Ox] 250 mg PO BID 10/30/18 04/04/20 Umeclidinium [place] [Incruse 1 puff INHALATION RT-DAILY 11/20/19 04/04/20 Ellipta] Insulin Glargine,Hum.rec.anlog 50 unit SQ HS 04/04/20 04/04/20 [Lantus Solostar] Sertraline [Zoloft] 200 mg PO HS 04/04/20 04/04/20 Triamterene-Hctz 37.5-25Mg 1 tab PO DAILY 04/04/20 04/04/20 [Maxzide 37.5-25] Valsartan [Diovan] 160 mg PO BID 04/04/20 04/04/20 Previous Rx's Medication Instructions Recorded Thiamine [Vitamin B-1] 100 mg PO DAILY 30 Days #30 tab 11/07/18 Cyclobenzaprine [Flexeril] 5 mg PO BID #0 04/06/20 Azithromycin [Zithromax Z-pack (6 0 mg PO DIRECTED #6 tab 05/08/20 tabs)] Allergies Allergy/AdvReac Type Severity Reaction Status Date / Time morphine AdvReac Nausea & Verified 05/07/20 21:48 Vomiting Review of Systems ROS Statement: Those systems with pertinent positive or pertinent negative responses have been documented in the HPI. ROS Other: All systems not noted in ROS Statement are negative. Past Medical History Past Medical History: COPD, CVA/TIA, Diabetes Mellitus, Hyperlipidemia, Hypertension, Memory Impairment, Seizure Disorder, Skin Disorder Additional Past Medical History / Comment(s): pain pump in back, anemia. History of Any Multi-Drug Resistant Organisms: None Reported Past Surgical History: Appendectomy, Back Surgery, Orthopedic Surgery Additional Past Surgical History / Comment(s): titanium shaft in lt leg, skin graph to rt 1st and middle finger, lt eardum replaced, cyrus. foot surgery to arch Past Anesthesia/Blood Transfusion Reactions: No Reported Reaction Past Psychological History: Anxiety, Depression Smoking Status: Current every day smoker, Heavy tobacco smoker Past Alcohol Use History: None Reported Past Drug Use History: None Reported - Past Family History Brother(s) Family Medical History: No Reported History Mother Family Medical History: COPD, Diabetes Mellitus Father Additional Family Medical History / Comment(s): Father had pain problems/hallucinations. He committed suicide. General Exam - General Exam Comments Initial Comments: Constitutional: NAD, AOX3, Pt has pleasant affect. HEENT: NC/AT, trachea midline, neck supple, no lymphadenopathy. External ears appear normal, without discharge. Mucous membranes moist. Eyes PERRLA, EOM intact. There is no scleral icterus. No pallor noted. Cardiopulmonary: RRR, no murmurs, rubs or gallops, no JVD noted. Lungs CTAB in anterior and posterior barajas. No peripheral edema. Abdominal exam: Abdomen soft and non-distended. Abdomen non-tender to palpation in all 4 quadrants. Bowel sounds active in LLQ. No hepatosplenomegaly. No ecchymosis Neuro: CN II-XII intact. No nuchal rigidity. No raccon eyes, no palmer sign, no hemotympanum. No cervical spinal tenderness. Small abrasion to the forehead. Bandaged. MSK: No posterior calf tenderness bilaterally, homans sign negative bilaterally. Posterior tibialis and radial pulse +2 bilaterally. Sensation intact in upper and lower extremities. Full active ROM in upper and lower extremities. Ecchmosis noted lefr lower flank. Limitations: no limitations Course Vital Signs 05/07/20 05/07/20 05/08/20 21:43 22:44 00:16 Temperature 97.0 F L 97.8 F Pulse Rate 71 66 Respiratory 18 18 18 Rate Blood Pressure 134/60 138/75 O2 Sat by Pulse 94 L 93 L Oximetry 05/08/20 01:33 Temperature 97.0 F L Pulse Rate 67 Respiratory 20 Rate Blood Pressure 143/65 O2 Sat by Pulse 95 Oximetry Medical Decision Making - Medical Decision Making 59-year-old male patient to ED for mechanical fall. Patient also signs are s table, afebrile. Physical exam displayed an abrasion to the forehead as well as a ecchymoses left lateral flank region. CT brain C-spine negative for acute process. ED and pelvis was performed did not display any evidence of acute traumatic injury. 3.5 cm abdominal aortic aneurysms unchanged. There is mild infiltrate atelectasis in the left lower lobe is improved old exam. Patient not having any fevers he reports that he always has had a cough due to COPD states that is maybe a little bit worse now. Dneies nay shortness of breath. Patient be treated with azithromycin will follow up with primary care provider and return if any worsening symptoms. Csae discussed with Dr. Arizmendi. - Lab Data Result diagrams: 05/07/20 23:00 05/07/20 23:00 Lab Results 05/07/20 05/07/20 05/07/20 Range/Units 23:00 23:00 23:00 WBC 6.6 (3.8-10.6) k/uL RBC 3.43 L (4.30-5.90) m/uL Hgb 11.2 L (13.0-17.5) gm/dL Hct 34.8 L (39.0-53.0) % MCV 101.5 H (80.0-100.0) fL MCH 32.7 (25.0-35.0) pg MCHC 32.2 (31.0-37.0) g/dL RDW 14.8 (11.5-15.5) % Plt Count 96 L (150-450) k/uL MPV 7.4 Neutrophils % 71 % Lymphocytes % 18 % Monocytes % 5 % Eosinophils % 3 % Basophils % 0 % Neutrophils # 4.7 (1.3-7.7) k/uL Lymphocytes # 1.2 (1.0-4.8) k/uL Monocytes # 0.3 (0-1.0) k/uL Eosinophils # 0.2 (0-0.7) k/uL Basophils # 0.0 (0-0.2) k/uL Manual Slide Review Performed Polychromasia Present Anisocytosis (manual) Present Macrocytosis Slight PT 10.1 (9.0-12.0) sec INR 1.0 (<1.2) APTT 22.4 (22.0-30.0) sec Sodium 136 L (137-145) mmol/L Potassium 4.2 (3.5-5.1) mmol/L Chloride 100 (98-107) mmol/L Carbon Dioxide 29 (22-30) mmol/L Anion Gap 7 mmol/L BUN 27 H (9-20) mg/dL Creatinine 0.96 (0.66-1.25) mg/dL Est GFR (CKD-EPI)AfAm >90 (>60 ml/min/1.73 sqM) Est GFR (CKD-EPI)NonAf 87 (>60 ml/min/1.73 sqM) Glucose 139 H (74-99) mg/dL Calcium 8.8 (8.4-10.2) mg/dL Total Bilirubin 0.4 (0.2-1.3) mg/dL AST 50 (17-59) U/L ALT 22 (4-49) U/L Alkaline Phosphatase 86 (38-126) U/L Total Protein 8.0 (6.3-8.2) g/dL Albumin 3.9 (3.5-5.0) g/dL - EKG Data -: EKG Interpreted by Me (and Dr. Arizmendi. ) EKG Comments: Ventricular rate 66, [place] interval 136, QRS 100, QT/QTc or 36/457. Normal sinus rhythm, normal EKG, no concern for acute ischemia. Disposition Clinical Impression: Fall, Cough Disposition: HOME SELF-CARE Condition: Stable Instructions (If sedation given, give patient instructions): Fall Prevention (ED) Additional Instructions: Follow up with PCP tomorrow. Follow up with vascular surgeon tomorrow. Take antibiotics as directed. Return to ED with any worsening symptoms. Prescriptions: Azithromycin [Zithromax Z-pack (6 tabs)] 0 mg PO DIRECTED #6 tab Is patient prescribed a controlled substance at d/c from ED?: No Referrals: Sharyn Whitlock DO [Primary Care Provider] - 1-2 days
--- NOTE | 2020-05-07 22:50 | CT ---
EXAMINATION TYPE: CT brain [facility] con DATE OF EXAM: 05/07/2020 COMPARISON: 04/04/2020 HISTORY: fall CT DLP: 1455.3 mGycm Automated exposure control for dose reduction was used. There is mild cerebral atrophy. There is no mass effect nor midline shift. There is no sign of intrac ranial hemorrhage. There is brooks and white matter hypodensity measuring 3 cm in the right posterior f rontal lobe related to old infarct. The calvarium is intact. Cervical vertebra have normal alignment. There is narrowing of disc spaces in the lower cervical spin e from C4 to T1 with spur formation. There is no compression fracture. Facet joints are intact. There is mild hypertrophic facet arthropathy. The skull base is intact. There is incomplete pneumatization of the mastoid sinuses. IMPRESSION: Old right posterior frontal lobe cortical infarct unchanged. No acute abnormality. Mild spondylotic changes in the mid and lower cervical spine. No fracture. No change.
[2020-05-07 23:38] LABS: Basophils % (A) 0 %; Eosinophils # (A) 0.2 k/uL (0-0.7); Eosinophils % (A) 3 %; HCT 34.8 % (39.0-53.0); HGB 11.2 gm/dL (13.0-17.5); Lymphocytes # (A) 1.2 k/uL (1.0-4.8); Lymphocytes % (A) 18 %; MCH 32.7 pg (25.0-35.0); MCHC 32.2 g/dL (31.0-37.0); MCV 101.5 fL (80.0-100.0); Macrocytosis Slight; Mean Platelet Volume 7.4; Monocytes # (A) 0.3 k/uL (0-1.0); Monocytes % (A) 5 %; Neutrophils # (A) 4.7 k/uL (1.3-7.7); Neutrophils % (A) 71 %; RBC 3.43 m/uL (4.30-5.90); RDW 14.8 % (11.5-15.5); WBC 6.6 k/uL (3.8-10.6)
[2020-05-07 23:39] LABS: Partial Thromboplastin Time 22.4 sec (22.0-30.0); Prothrombin Time 10.1 sec (9.0-12.0)
[2020-05-07 23:48] LABS: ALT 22 U/L (4-49); AST 50 U/L (17-59); African American GFR (CKD) >90 (>60 ml/min/1.73 sqM); Albumin 3.9 g/dL (3.5-5.0); Alkaline Phosphatase 86 U/L (38-126); Anion Gap 7 mmol/L; Blood Urea Nitrogen 27 mg/dL (9-20); Calcium 8.8 mg/dL (8.4-10.2); Carbon Dioxide 29 mmol/L (22-30); Chloride 100 mmol/L (98-107); Glucose 139 mg/dL (74-99); Non-African American GFR(CKD) 87 (>60 ml/min/1.73 sqM); Potassium 4.2 mmol/L (3.5-5.1); Sodium 136 mmol/L (137-145); Total Bilirubin 0.4 mg/dL (0.2-1.3)
--- NOTE | 2020-05-08 00:07 | CT ---
EXAMINATION TYPE: CT abdomen pelvis w con DATE OF EXAM: 05/07/2020 COMPARISON: 10/30/2018 HISTORY: flank pain Trauma CT DLP: 1674.8 mGycm Automated exposure control for dose reduction was used. CONTRAST: Performed without and with IV Contrast, patient injected with 100 mL of Isovue 300. There is some linear infiltrate and atelectasis left posterior lung base. There is no pleural effusio n. Heart size is normal. There is no pericardial effusion. Liver spleen gallbladder stomach pancreas appear intact. The bile ducts are not dilated. Spleen is slightly enlarged and measures 16.5 cm. There is no adrenal mass. Kidneys show satisfactory contrast opacification. There is no hydronephrosi s. There is 3.5 cm aneurysm of the lower abdominal aorta with thrombus on the left lateral wall. Ther e is no retroperitoneal adenopathy. Delayed images show little contrast in the renal collecting syste ms that could relate to some degree of renal failure. The ureters are not dilated. There is implanted device over the left posterior iliac bone. There is multilevel posterior laminectomy defect in the l umbar spine. There is metal artifact from the lumbar spine surgery. The bladder distends smoothly. There is no inguinal hernia. There is no free fluid in the pelvis. Yojana endix is not seen. There is no sign of thickened appendix. The lumbar vertebra have normal alignment. There is no compression fracture. There is disc prosthesis at levels from L3 to S1. The bony pelvis is intact. Hip joints are intact. IMPRESSION: I see no evidence of acute traumatic injury. There is splenomegaly unchanged. There is 3.5 cm lower a bdominal aortic aneurysm unchanged. There is mild infiltrate and atelectasis left lower lobe that is improved compared to old exam. There is clearing right lower lobe infiltrate compared to old exam.
[2020-05-08] MEDS ORDERED: SODIUM CHLORIDE 0.9% 500 ML 500 ML IV ONE (00:21)
[2020-05-08] MEDS ORDERED: AZITHROMYCIN 500 MG TAB PO STA (01:16)
[2020-05-08 01:41] VITALS: BP 143/65; PULSE 67; RESP 20; TEMP 97
[2020-05-08 01:43] LABS: Anisocytosis (M) Present; Polychromasia Present
[2020-05-08 01:44] LABS: Platelet Count 96 k/uL (150-450)
== END 2020-05-08 01:33 | disposition home or self-care (01) ==
LOC: EC 21:40
DX: S00.81XA Abrasion of other part of head, initial encounter (principal); R05 Cough; S30.1XXA Contusion of abdominal wall, initial encounter; I71.4 Abdominal aortic aneurysm, without rupture; F41.9 Anxiety disorder, unspecified; F32.9 Major depressive disorder, single episode, unspecified; F17.200 Nicotine dependence, unspecified, uncomplicated; E11.9 Type 2 diabetes mellitus without complications; E78.5 Hyperlipidemia, unspecified; I10 Essential (primary) hypertension; G40.909 Epilepsy, unspecified, not intractable, without status epilepticus; Z23 Encounter for immunization; Z79.82 Long term (current) use of aspirin; Z79.02 Long term (current) use of antithrombotics/antiplatelets; Z79.84 Long term (current) use of oral hypoglycemic drugs; Z79.899 Other long term (current) drug therapy; Z88.5 Allergy status to narcotic agent; Z86.73 Personal history of transient ischemic attack (TIA), and cerebral infarction without residual deficits; W01.198A Fall on same level from slipping, tripping and stumbling with subsequent striking against other object, initial encounter
CPT/HCPCS: 36415; 80053; 85025; 85610; 85730; 72125; 70450; 74177; 90715; 99284; 96360; 90471; Q9967; 93005

== ENCOUNTER → 2020-06-18 | Outpatient (CLI) | payer OTHER ==
--- NOTE | 2020-06-18 15:37 | XR ---
EXAM TYPE: LUMBAR SPINE X RAY SERIES COMPARISON: NONE HISTORY: Pain TECHNIQUE: 5 views are submitted. Including flexion and extension lateral views. FINDINGS: Postsurgical changes are noted involving levels L3-4, L4-5 and L5-S1. There is advanced facet arthrop athy at these levels with suspected foraminal encroachment. Vacuum disc and severe degenerative disc disease L2-L3 with moderate changes at the remaining visualized levels. No compression deformities. M ild diffuse osteopenia. Metallic device seen posterior to the spinal column on the lateral view and o verlying the left iliac wing. Nonspecific left upper quadrant calcification may represent a small grant al stone. Arthropathy of the hips. Curvature of the spine. Vascular calcifications noted. IMPRESSION: 1. Postoperative change with severe degenerative disc disease at L2-L3. 2. Possible left renal calculus.
== END | disposition home or self-care (01) ==
LOC: LABWHC1 13:45
PROVIDERS: ATTEND Psychiatry & Neurology Pain Medicine
DX: M51.36 Other intervertebral disc degeneration, lumbar region (principal); Z98.890 Other specified postprocedural states; F44.89 Other dissociative and conversion disorders
CPT/HCPCS: 36415; 72114; 82140

== ENCOUNTER → 2020-08-28 | Outpatient (CLI) | payer OTHER ==
[2020-08-29 00:30] LABS: Basophils # (A) 0.02 X 10*3/uL (0.00-0.10); Basophils % (A) 0.3 %; Eosinophils # (A) 0.26 X 10*3/uL (0.04-0.35); Eosinophils % (A) 3.9 %; HGB 9.8 g/dL (13.0-17.0); Lymphocytes # (A) 1.19 X 10*3/uL (0.90-5.00); Lymphocytes % (A) 17.9 %; MCH 31.4 pg (27.0-32.0); MCHC 31.6 g/dL (32.0-37.0); MCV 99.4 fL (80.0-97.0); Macrocytosis (M) 2+; Mean Platelet Volume 11.5 fL (9.5-12.2); Monocytes # (A) 0.56 X 10*3/uL (0.20-1.00); Monocytes % (A) 8.4 %; Neutrophils # (A) 4.58 X 10*3/uL (1.80-7.70); Platelet Count 96 X 10*3/uL (140-440); RBC 3.12 X 10*6/uL (4.40-5.60); RDW 15.1 % (11.5-14.5); WBC 6.64 X 10*3/uL (4.50-10.00)
[2020-08-29 06:20] LABS: African American GFR (CKD) 95.7 (60.0-200.0); Albumin 4.4 g/dL (3.80-4.90); Albumin/Globulin Ratio 1.38 (1.60-3.17); Anion Gap 10.1 mmol/L (4.00-12.00); Bilirubin, Conjugated 0.2 mg/dL (0.20-0.40); Bilirubin,Unconjugated 0.3 mg/dL; Calcium 9.9 mg/dL (8.7-10.3); Carbon Dioxide 24.9 mmol/L (21.6-31.8); Globulin 3.2 g/dL (1.6-3.3); Non-African American GFR(CKD) 82.6 (60.0-200.0); Potassium 4.6 mmol/L (3.5-5.5); Total Bilirubin 0.5 mg/dL (0.2-1.2); Total Protein 7.6 g/dL (6.2-8.2)
== END | disposition home or self-care (01) ==
LOC: LABWHC1 15:45
PROVIDERS: ATTEND Psychiatry & Neurology Pain Medicine
DX: G25.79 Other drug induced movement disorders (principal)
CPT/HCPCS: 36415; 80053; 82248; 85025

== ENCOUNTER 2020-09-11 16:24 | Emergency (ER) | payer OTHER ==
[2020-09-11 17:36] VITALS: RESP 18
[2020-09-11 17:39] LABS: Glucose,Whole Blood 345 mg/dL (75-99)
[2020-09-11] MEDS ORDERED: metFORMIN 500 MG TAB PO STA (19:27)
[2020-09-11] MEDS ORDERED: SODIUM CHLORIDE 0.9% 1,000 ML IV STA (19:27)
--- NOTE | 2020-09-11 19:33 | ED ---
Recheck HPI - General Chief Complaint: Recheck/Abnormal Lab/Rx Stated Complaint: High blood sugar sent by PCP Time Seen by Provider: 09/11/20 19:20 Source: patient, RN notes reviewed Mode of arrival: wheelchair Limitations: no limitations - History of Present Illness Initial Comments: Patient is a 59-year-old male that presents to the emergency department with elevated blood sugar. He noted that he went to his primary care and was given a get a steroid injection by his sugar was too high so primary sent him to the ER to get evaluated. Patient notes that he has not checked his own blood sugar at home since his previous primary care visit. notes that she thinks her lives by the out of sight out of mind mentality where if he doesn't check it doesn't exist. He was in no apparent distress while lying in bed during the exam interview. He notes that he does take the toes and Lantus 1 time in the morning and then takes metformin 1000 mg twice a day. He denied any chest pain shortness of breath headache nausea vomiting diarrhea constipation fever fatigue chills polyuria polydipsia. - Related Data Home Medications Medication Instructions Recorded Confirmed Aspirin [Adult Low Dose Aspirin EC] 81 mg PO DAILY 08/28/15 04/04/20 Clopidogrel [Plavix] 75 mg PO DAILY 08/28/15 04/04/20 Folic Acid 1 mg PO DAILY 08/28/15 04/04/20 Liraglutide [Victoza 2-Selvin] 1.8 mg SQ DAILY 07/19/18 04/04/20 levETIRAcetam [Keppra] 1,000 mg PO Q12HR 07/20/18 04/04/20 Ferrous Sulfate [Iron (65 MG 325 mg PO DAILY 10/20/18 04/04/20 Elemental)] HYDROcodone/APAP 5-325MG [[place] 1 tab PO BID PRN 10/20/18 04/04/20 5-325] Tamsulosin [Flomax] 0.4 mg PO DAILY 10/20/18 04/04/20 metFORMIN HCL 1,000 mg PO BID 10/20/18 04/04/20 Insulin Lispro [Admelog] See Protocol SQ AC-TID 10/30/18 04/04/20 Magnesium Oxide [Mag-Ox] 250 mg PO BID 10/30/18 04/04/20 Umeclidinium Keymar [Incruse 1 puff INHALATION RT-DAILY 11/20/19 04/04/20 Ellipta] Insulin Glargine,Hum.rec.anlog 50 unit SQ HS 04/04/20 04/04/20 [Lantus Solostar] Sertraline [Zoloft] 200 mg PO HS 04/04/20 04/04/20 Triamterene-Hctz 37.5-25Mg 1 tab PO DAILY 04/04/20 04/04/20 [Maxzide 37.5-25] Valsartan [Diovan] 160 mg PO BID 04/04/20 04/04/20 Previous Rx's Medication Instructions Recorded Thiamine [Vitamin B-1] 100 mg PO DAILY 30 Days #30 tab 11/07/18 Cyclobenzaprine [Flexeril] 5 mg PO BID #0 04/06/20 Azithromycin [Zithromax Z-pack (6 0 mg PO DIRECTED #6 tab 05/08/20 tabs)] Allergies Allergy/AdvReac Type Severity Reaction Status Date / Time morphine AdvReac Nausea & Verified 09/11/20 17:35 Vomiting Review of Systems ROS Statement: Those systems with pertinent positive or pertinent negative responses have been documented in the HPI. ROS Other: All systems not noted in ROS Statement are negative. Past Medical History Past Medical History: COPD, CVA/TIA, Diabetes Mellitus, Hyperlipidemia, Hypertension, Memory Impairment, Seizure Disorder, Skin Disorder Additional Past Medical History / Comment(s): pain pump in back, anemia. History of Any Multi-Drug Resistant Organisms: None Reported Past Surgical History: Appendectomy, Back Surgery, Orthopedic Surgery Additional Past Surgical History / Comment(s): titanium shaft in lt leg, skin graph to rt 1st and middle finger, lt eardum replaced, cyrus. foot surgery to arch Past Anesthesia/Blood Transfusion Reactions: No Reported Reaction Past Psychological History: Anxiety, Depression Smoking Status: Current every day smoker, Heavy tobacco smoker Past Alcohol Use History: None Reported Past Drug Use History: None Reported - Past Family History Brother(s) Family Medical History: No Reported History Mother Family Medical History: COPD, Diabetes Mellitus Father Additional Family Medical History / Comment(s): Father had pain problems/hallucinations. He committed suicide. General Exam Limitations: no limitations General appearance: alert, in no apparent distress, obese Head exam: Present: atraumatic, normocephalic, normal inspection Eye exam: Present: normal appearance, PERRL, EOMI. Absent: scleral icterus, conjunctival injection, periorbital swelling ENT exam: Present: normal exam, mucous membranes moist Neck exam: Present: normal inspection. Absent: tenderness, meningismus, lymphadenopathy Respiratory exam: Present: normal lung sounds bilaterally. Absent: respiratory distress, wheezes, rales, rhonchi, stridor Cardiovascular Exam: Present: regular rate, normal rhythm, normal heart sounds. Absent: systolic murmur, diastolic murmur, rubs, gallop, clicks GI/Abdominal exam: Present: soft, normal bowel sounds. Absent: distended, tenderness, guarding, rebound, rigid Extremities exam: Present: normal inspection, full ROM, normal capillary refill. Absent: tenderness, pedal edema, joint swelling, calf tenderness Neurological exam: Present: alert, oriented X3, CN II-XII intact Psychiatric exam: Present: normal affect, normal mood Skin exam: Present: warm, dry, intact, normal color. Absent: rash Course Vital Signs 09/11/20 09/11/20 17:33 19:50 Temperature 98.1 F Pulse Rate 78 72 Respiratory 18 18 Rate Blood Pressure 127/61 140/74 O2 Sat by Pulse 96 96 Oximetry Medical Decision Making - Medical Decision Making 51-year-old male presenting with high blood glucose levels from primary care. Basic labs, 1 L normal saline, 1000 mg of metformin ordered. Labs unremarkable, sugars are coming down fluids and metformin, urinalysis doesn't show don't. Case discussed with Dr. Pacheco, patient can discharge home with follow up primary care. - Lab Data Result diagrams: 09/11/20 19:27 09/11/20 19:27 Lab Results 09/11/20 09/11/20 09/11/20 Range/Units 17:37 19:27 19:27 WBC 5.1 (3.8-10.6) k/uL RBC 3.43 L (4.30-5.90) m/uL Hgb 11.2 L (13.0-17.5) gm/dL Hct 33.0 L (39.0-53.0) % MCV 96.2 (80.0-100.0) fL MCH 32.5 (25.0-35.0) pg MCHC 33.8 (31.0-37.0) g/dL RDW 15.2 (11.5-15.5) % Plt Count 95 L (150-450) k/uL MPV 8.0 Neutrophils % 61 % Lymphocytes % 25 % Monocytes % 7 % Eosinophils % 4 % Basophils % 0 % Neutrophils # 3.1 (1.3-7.7) k/uL Lymphocytes # 1.3 (1.0-4.8) k/uL Monocytes # 0.4 (0-1.0) k/uL Eosinophils # 0.2 (0-0.7) k/uL Basophils # 0.0 (0-0.2) k/uL Sodium 132 L (137-145) mmol/L Potassium 4.5 (3.5-5.1) mmol/L Chloride 97 L (98-107) mmol/L Carbon Dioxide 25 (22-30) mmol/L Anion Gap 10 mmol/L BUN 18 (9-20) mg/dL Creatinine 0.79 (0.66-1.25) mg/dL Est GFR (CKD-EPI)AfAm >90 (>60 ml/min/1.73 sqM) Est GFR (CKD-EPI)NonAf >90 (>60 ml/min/1.73 sqM) Glucose 269 H (74-99) mg/dL POC Glucose (mg/dL) 345 H (75-99) mg/dL POC Glu Veneer [employer] Grader ID Calcium 9.4 (8.4-10.2) mg/dL Total Bilirubin 0.5 (0.2-1.3) mg/dL AST 34 (17-59) U/L ALT 19 (4-49) U/L Alkaline Phosphatase 113 (38-126) U/L Total Protein 8.5 H (6.3-8.2) g/dL Albumin 4.5 (3.5-5.0) g/dL Urine Color Urine Appearance (Clear) Urine pH (5.0-8.0) Ur Specific [place] (1.001-1.035) Urine Protein (Negative) Urine Glucose (UA) (Negative) Urine Ketones (Negative) Urine Blood (Negative) Urine Nitrite (Negative) Urine Bilirubin (Negative) Urine Urobilinogen (<2.0) mg/dL Ur Leukocyte Esterase (Negative) 09/11/20 09/11/20 Range/Units 20:14 21:20 WBC (3.8-10.6) k/uL RBC (4.30-5.90) m/uL Hgb (13.0-17.5) gm/dL Hct (39.0-53.0) % MCV (80.0-100.0) fL MCH (25.0-35.0) pg MCHC (31.0-37.0) g/dL RDW (11.5-15.5) % Plt Count (150-450) k/uL MPV Neutrophils % % Lymphocytes % % Monocytes % % Eosinophils % % Basophils % % Neutrophils # (1.3-7.7) k/uL Lymphocytes # (1.0-4.8) k/uL Monocytes # (0-1.0) k/uL Eosinophils # (0-0.7) k/uL Basophils # (0-0.2) k/uL Sodium (137-145) mmol/L Potassium (3.5-5.1) mmol/L Chloride (98-107) mmol/L Carbon Dioxide (22-30) mmol/L Anion Gap mmol/L BUN (9-20) mg/dL Creatinine (0.66-1.25) mg/dL Est GFR (CKD-EPI)AfAm (>60 ml/min/1.73 sqM) Est GFR (CKD-EPI)NonAf (>60 ml/min/1.73 sqM) Glucose (74-99) mg/dL POC Glucose (mg/dL) 253 H (75-99) mg/dL POC Glu V[employer] Grader ID Vasu Lind Calcium (8.4-10.2) mg/dL Total Bilirubin (0.2-1.3) mg/dL AST (17-59) U/L ALT (4-49) U/L Alkaline Phosphatase (38-126) U/L Total Protein (6.3-8.2) g/dL Albumin (3.5-5.0) g/dL Urine Color Light Yellow Urine Appearance Clear (Clear) Urine pH 5.5 (5.0-8.0) Ur Specific [place] 1.012 (1.001-1.035) Urine Protein Negative (Negative) Urine Glucose (UA) 4+ H (Negative) Urine Ketones Negative (Negative) Urine Blood Negative (Negative) Urine Nitrite Negative (Negative) Urine Bilirubin Negative (Negative) Urine Urobilinogen <2.0 (<2.0) mg/dL Ur Leukocyte Esterase Negative (Negative) Disposition Clinical Impression: Hyperglycemia due to diabetes mellitus Disposition: HOME SELF-CARE Condition: Stable Instructions (If sedation given, give patient instructions): Diabetic Hyperglycemia (ED) Additional Instructions: Please return to the Emergency Department if symptoms worsen or any other c oncerns. Follow-up with primary care 1-3 days. Strongly recommend checking her blood sugars 2-3 times per day as best she since he take insulin and metformin. Risk factors of diabetes that uncontrolled is kidney failure, diabetic neuropathy which can lead to a dictation, poor wound healing. Is patient prescribed a controlled substance at d/c from ED?: No Referrals: Dmitriy Liu MD [Primary Care Provider] - 1-2 days Time of Disposition: 21:41
[2020-09-11 20:17] LABS: Glucose,Whole Blood 253 mg/dL (75-99)
[2020-09-11 20:26] LABS: Basophils % (A) 0 %; Eosinophils # (A) 0.2 k/uL (0-0.7); Eosinophils % (A) 4 %; HGB 11.2 gm/dL (13.0-17.5); Lymphocytes # (A) 1.3 k/uL (1.0-4.8); Lymphocytes % (A) 25 %; MCH 32.5 pg (25.0-35.0); MCHC 33.8 g/dL (31.0-37.0); MCV 96.2 fL (80.0-100.0); Monocytes # (A) 0.4 k/uL (0-1.0); Monocytes % (A) 7 %; Neutrophils # (A) 3.1 k/uL (1.3-7.7); Neutrophils % (A) 61 %; RBC 3.43 m/uL (4.30-5.90); RDW 15.2 % (11.5-15.5); WBC 5.1 k/uL (3.8-10.6)
[2020-09-11 20:31] LABS: Platelet Count 95 k/uL (150-450)
[2020-09-11 20:38] LABS: ALT 19 U/L (4-49); AST 34 U/L (17-59); African American GFR (CKD) >90 (>60 ml/min/1.73 sqM); Albumin 4.5 g/dL (3.5-5.0); Alkaline Phosphatase 113 U/L (38-126); Anion Gap 10 mmol/L; Blood Urea Nitrogen 18 mg/dL (9-20); Calcium 9.4 mg/dL (8.4-10.2); Carbon Dioxide 25 mmol/L (22-30); Chloride 97 mmol/L (98-107); Glucose 269 mg/dL (74-99); Non-African American GFR(CKD) >90 (>60 ml/min/1.73 sqM); Potassium 4.5 mmol/L (3.5-5.1); Sodium 132 mmol/L (137-145); Total Bilirubin 0.5 mg/dL (0.2-1.3); Total Protein 8.5 g/dL (6.3-8.2)
[2020-09-11 21:27] LABS: Appearance,Urine Clear (Clear); Bilirubin,Urine Negative (Negative); Blood,Urine Negative (Negative); Color,Urine Light Yellow; Glucose,Urine (UA) 4+ (Negative); Ketones,Urine Negative (Negative); Leukocyte Esterase,Urine Negative (Negative); Nitrite,Urine Negative (Negative); PH, Urine 5.5 (5.0-8.0); Protein,Urine Negative (Negative); Specific Gravity,Urine 1.012 (1.001-1.035); Urobilinogen,Urine <2.0 mg/dL (<2.0)
[2020-09-11 22:24] VITALS: BP 148/69; PULSE 79; TEMP 98.6
== END 2020-09-11 22:22 | disposition home or self-care (01) ==
LOC: EC 16:24
DX: E11.65 Type 2 diabetes mellitus with hyperglycemia (principal); J44.9 Chronic obstructive pulmonary disease, unspecified; E78.5 Hyperlipidemia, unspecified; I10 Essential (primary) hypertension; F32.9 Major depressive disorder, single episode, unspecified; F41.9 Anxiety disorder, unspecified; F17.200 Nicotine dependence, unspecified, uncomplicated; G40.909 Epilepsy, unspecified, not intractable, without status epilepticus; Z86.73 Personal history of transient ischemic attack (TIA), and cerebral infarction without residual deficits; Z79.51 Long term (current) use of inhaled steroids; Z79.4 Long term (current) use of insulin; Z79.82 Long term (current) use of aspirin
CPT/HCPCS: 36415; 80053; 81003; 85025; 96360; 99283

== ENCOUNTER → 2020-10-01 | Outpatient (CLI) | payer OTHER ==
--- NOTE | 2020-10-01 22:17 | CT ---
EXAMINATION TYPE: CT brain wo con DATE OF EXAM: 10/01/2020 HISTORY: Drug induced movement disorders, serotonin syndrome. Loss of memory, seizures CT DLP: 1113.10 mGycm. Automated Exposure Control for Dose Reduction was Utilized. TECHNIQUE: CT scan of the head is performed without contrast. COMPARISON: CT brain May 07, 2020. FINDINGS: There is no acute intracranial hemorrhage or midline shift identified. There is diffuse v entricular and sulcal prominence consistent with diffuse cerebral atrophy. Degree of ventricular prom inence slightly out of proportion to degree of sulcal effacement but not significantly changed from p rior studies. Cannot exclude underlying normal pressure hydrocephalus. Opacification and sclerosis le ft mastoid air cells redemonstrated. 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 There is low-attenuatio n in the periventricular white matter consistent with chronic small vessel ischemic change. The glob es are intact and the visualized sinuses are clear. Patchy cerumen bilateral external auditory ole ls. IMPRESSION: No acute intracranial hemorrhage or midline shift. There is mild to moderate diffuse ag e-related cerebral atrophy and chronic small vessel ischemic change redemonstrated. No significant c hange from prior studies.
== END | disposition home or self-care (01) ==
LOC: RADCTMAIN 17:46
PROVIDERS: ATTEND Psychiatry & Neurology Neurology
DX: G31.1 Senile degeneration of brain, not elsewhere classified (principal); I67.82 Cerebral ischemia
CPT/HCPCS: 70450

== ENCOUNTER → 2020-10-22 | Outpatient (CLI) | payer OTHER ==
[2020-10-22 19:05] LABS: HCT 30.5 % (39.6-50.0); HGB 9.4 g/dL (13.0-17.0); MCH 30.2 pg (27.0-32.0); MCHC 30.8 g/dL (32.0-37.0); MCV 98.1 fL (80.0-97.0); Mean Platelet Volume 11.2 fL (9.5-12.2); Platelet Count 118 X 10*3/uL (140-440); RBC 3.11 X 10*6/uL (4.40-5.60); RDW 14.1 % (11.5-14.5); WBC 8.26 X 10*3/uL (4.50-10.00)
[2020-10-23 00:34] LABS: Anion Gap 10.5 mmol/L (4.00-12.00); Carbon Dioxide 23.5 mmol/L (21.6-31.8); Chol/HDL Ratio 4.23; LDL Cholesterol,Calculated 57.4 mg/dL (0.0-131.0); Potassium 4.9 mmol/L (3.5-5.5); VLDL Calculation 42.6 mg/dL (5.00-40.00)
[2020-10-23 00:35] LABS: African American GFR (CKD) 84.7 (60.0-200.0); Non-African American GFR(CKD) 73.1 (60.0-200.0)
== END | disposition home or self-care (01) ==
LOC: LABWHC1 11:45
PROVIDERS: ATTEND Internal Medicine Cardiovascular Disease
DX: Z01.812 Encounter for preprocedural laboratory examination (principal); I25.10 Atherosclerotic heart disease of native coronary artery without angina pectoris
CPT/HCPCS: 36415; 80051; 80061; 82565; 84520; 85027

== ENCOUNTER 2020-10-24 08:03 | Day surgery (SDC) | payer OTHER ==
[2020-10-22 09:55] VITALS: BMI 32.8
[~2020-10-24 08:03] MED LIST changes: -ACETAMINOPHEN TAB 500 MG TAB PO ONE; +ALPRAZolam 0.25 MG TAB PO PRN; +ALPRAZolam 0.5 MG TAB PO PRN; +ASPIRIN 325 MG TAB PO STA; +ATORVASTATIN 80 MG TAB PO STA; -DEXAMETHASONE SOD PHOSPHATE 10 MG/ML 1 ML VIAL IV ONE; +HEPARIN SODIUM,PORCINE 10,000 UNIT in SODIUM CHLORIDE 0.9% 1,000 ML IRRIGATION PRN; +HEPARIN SODIUM,PORCINE 2,500 UNIT in SODIUM CHLORIDE 0.9% 250 ML IRRIGATION PRN; -HEPARIN SODIUM,PORCINE 5,000 UNIT/ML 1 ML VIAL SQ ONE; -HYDROmorphone 0.5 MG/0.5 ML SYRINGE IVP PRN; -LACTATED RINGERS 1,000 ML IV SCH; -LIDOCAINE 1% (10MG/ML) FOR IV START INTRADERMA PRN; -MIDAZOLAM 2 MG/2 ML VIAL IV PRN; +NITROGLYCERIN SL TABS 0.4 MG TAB SUBLINGUAL PRN; -ONDANSETRON 4 MG/2 ML VIAL IVP ONE; -Pre Op ABX Message 1 EACH MISC MISCELLANE ONE; +SODIUM CHLORIDE 0.9% 1,000 ML in EMPTY BAG 1 BAG IV ONE
[2020-10-24] MEDS ORDERED: SODIUM CHLORIDE 0.9% 1,000 ML IV ONE (08:16)
[2020-10-24 08:25] LABS: Glucose,Whole Blood 152 mg/dL (75-99)
[2020-10-24 08:27] VITALS: RESP 16; TEMP 98.2
[2020-10-24] MEDS ORDERED: LIDOCAINE 1% INJ 10MG/ML (20 ML MDV) ONE (09:14)
[2020-10-24] MEDS ORDERED: VERAPAMIL 2.5 MG/ML 2 ML AMP ONE (09:14)
[2020-10-24] MEDS ORDERED: MIDAZOLAM 2 MG/2 ML VIAL IV ONE (09:17)
[2020-10-24] MEDS ORDERED: LIDOCAINE 1% INJ 10MG/ML (20 ML MDV) SQ ONE (09:19)
[2020-10-24] MEDS ORDERED: HEPARIN SODIUM 1,000 UN/ML (10ML VL) ONE (09:20)
[2020-10-24] MEDS ORDERED: VERAPAMIL SYRINGE (5 MG/10 ML) INTRAARTER ONE (09:21)
[2020-10-24] MEDS ORDERED: IOPAMIDOL-370 125ML BTL INJ ONE (09:33)
[2020-10-24] MEDS ORDERED: RX INFO: IV CONTRAST WAS GIVEN 1 EACH MISC MISCELLANE PRN (09:46)
--- NOTE | 2020-10-24 09:57 | P.CARDCATH ---
Date of Procedure: 10/24/20 Preoperative Diagnosis: Dyspnea, peripheral vascular disease and positive stress test Postoperative Diagnosis: Mild diffuse disease without any critical stenosis Procedure(s) Performed: Left heart catheterization without left ventriculography Description of Procedure: HISTORY: This is a 60-year-old gentleman with history of hypertension, hypercholesteremia, and peripheral vascular disease who has been experiencing shortness of breath. A stress test was suggestive of possible ischemia of the inferolateral wall. A cardiac catheterization is requested by Dr. Dong CONSENT:I have discussed the risks, benefits and alternative therapies for the above-mentioned procedure and for both sedation/analgesia as well as necessary blood product administration, if indicated, as they pertain to this patient. The patient has indicated understanding and acceptance of the risks and procedures discussed. PROCEDURE: Patient was brought to the lab in a fasting state. Patient was given some IV sedation. The right wrist is infiltrated with lidocaine and right femoral artery was entered using Seldinger technique. A 6-Maur[place] catheter was left in place and selective coronary arteriography was performed. Patient tolerated the procedure well. TR band was applied for hemostasis. No immediate complications were noted and patient was transferred to [facility] in a stable condition Conscious Sedation: Versed 1mg Fentanyl 0 g Duration 16minutes HEMODYNAMICS: The aortic pressure is about 120/70. The left ventricle end- diastolic pressure is about 5-10. There was no gradient across the aortic valve SELECTIVE CORONARY ARTERIOGRAPHY: LEFT MAIN: Short and divides into left anterior descending and circumflex immediately THE LEFT ANTERIOR DESCENDING CORONARY ARTERY: This is a moderate caliber vessel with a diffuse plaque in the proximal and midportion. It appears to be mild to moderate without any significant focal lesions. The LAD wraps around the apex. There are moderate caliber diagonal branch is free of occlusive disease THE LEFT CIRCUMFLEX AND IS CORONARY ARTERY:. This is a large caliber vessel giving rise good-sized OM branch. The circumflex and its branches are free of any significant occlusive disease THE RIGHT CORONARY ARTERY:. Small and nondominant, free of occlusive disease LEFT VENTRICULOGRAPHY: Not performed FINAL IMPRESSION:. Diffuse disease of mild to moderate degree involving the proximal and mid LAD. The rest of the coronary system is free of any significant occlusive disease PLAN: Continue maximal medical therapy and this factor modification PROGNOSIS: Fair
[2020-10-24] MEDS ORDERED: SODIUM CHLORIDE 0.9% 1,000 ML IV SCH (10:00)
[2020-10-24 13:33] VITALS: BP 115/70; PULSE 76
== END 2020-10-24 13:33 | disposition home or self-care (01) ==
LOC: CATHCVL 08:03
PROVIDERS: ATTEND Internal Medicine Cardiovascular Disease
DX: I25.10 Atherosclerotic heart disease of native coronary artery without angina pectoris (principal); R94.39 Abnormal result of other cardiovascular function study; I10 Essential (primary) hypertension; E78.00 Pure hypercholesterolemia, unspecified; Z20.822 Contact with and (suspected) exposure to COVID-19; E11.51 Type 2 diabetes mellitus with diabetic peripheral angiopathy without gangrene; I74.5 Embolism and thrombosis of iliac artery; Z79.4 Long term (current) use of insulin; E78.5 Hyperlipidemia, unspecified; Z72.0 Tobacco use; Z79.02 Long term (current) use of antithrombotics/antiplatelets; Z79.82 Long term (current) use of aspirin; Z79.51 Long term (current) use of inhaled steroids; Z79.899 Other long term (current) drug therapy; Z88.5 Allergy status to narcotic agent
CPT/HCPCS: 93458; 87635; C1894; J2250; J2001; J1644; Q9967

== ENCOUNTER 2020-12-02 15:27 | Inpatient (IN) | payer OTHER ==
[2020-12-02] MEDS ORDERED: SODIUM CHLORIDE 0.9% 1,000 ML IV STA (18:23)
--- NOTE | 2020-12-02 18:24 | ED ---
General Adult HPI - General Chief complaint: Recheck/Abnormal Lab/Rx Stated complaint: High BP/HR Time Seen by Provider: 12/02/20 18:01 Source: patient Limitations: no limitations - History of Present Illness Initial comments: 60-year-old male with history of diabetes, COPD, CAD presents to the emergency department multiple chief complaint. Patient reports over last few days his sugar has been running hard and usual, however this is is not well-controlled any way. States he is on metformin and Lantus. Patient also reports having a low blood pressure today of 114/44. States this is atypical for him. States over the last week, his blood pressure has been fluctuating and he's noticed some palpitations. States he has been having difficulty sleeping and feeling more clammy than usual over the last few days. He denies any chest pain. His states the patient sees a husker operator and is currently using inhalers daily. Patient also reports increased exertional dyspnea but denies any chest pain. States he also had 1 episodes of nausea vomiting today but denies any constipation or diarrhea. He denies any other complaints. He denies any cough fever chills. - Related Data Home Medications Medication Instructions Recorded Confirmed Aspirin [Adult Low Dose Aspirin EC] 81 mg PO DAILY 08/28/15 10/24/20 Clopidogrel [Plavix] 75 mg PO DAILY 08/28/15 10/24/20 Folic Acid 1 mg PO 1800 08/28/15 10/24/20 Liraglutide [Victoza 2-Selvin] 1.8 mg SQ DAILY 07/19/18 10/24/20 HYDROcodone/APAP 5-325MG [[place] 1 tab PO BID PRN 10/20/18 10/24/20 5-325] Tamsulosin [Flomax] 0.4 mg PO BID 10/20/18 10/24/20 metFORMIN HCL 1,000 mg PO BID 10/20/18 10/24/20 Umeclidinium Jackson [Incruse 1 puff INHALATION RT-DAILY PRN 11/20/19 10/22/20 Ellipta] Triamterene-Hctz 37.5-25Mg 1 tab PO DAILY 04/04/20 10/24/20 [Maxzide 37.5-25] Valsartan [Diovan] 160 mg PO BID 04/04/20 10/24/20 Albuterol Sulfate [Proair Hfa] 1 - 2 puff INHALATION BID 10/22/20 10/24/20 Atorvastatin [Lipitor] 80 mg PO 1800 10/22/20 10/24/20 Budesonide-Formot 160-4.5 Mcg 2 puff INHALATION DAILY 10/22/20 10/24/20 [Symbicort 160-4.5 Mcg Inhaler] Glimepiride [Amaryl] 4 mg PO BID 10/22/20 10/24/20 Insulin Glargine,Hum.rec.anlog 50 unit SQ DAILY 10/22/20 10/24/20 [Lantus Solostar] Lacosamide [Vimpat] 200 mg PO BID 10/22/20 10/24/20 Multivitamin [Multivitamins Adult 1 each PO DAILY 10/22/20 10/24/20 Gummies] Pregabalin [Lyrica] 100 mg PO BID 10/22/20 10/24/20 Thiamine [Vitamin B-1] 100 mg PO 1800 10/22/20 10/24/20 hydroCHLOROthiazide 25 mg PO DAILY 10/22/20 10/24/20 Allergies Allergy/AdvReac Type Severity Reaction Status Date / Time morphine AdvReac Nausea & Verified 12/02/20 15:40 Vomiting Review of Systems ROS Statement: Those systems with pertinent positive or pertinent negative responses have been documented in the HPI. ROS Other: All systems not noted in ROS Statement are negative. Past Medical History Past Medical History: COPD, CVA/TIA, Diabetes Mellitus, Hyperlipidemia, Hypertension, Memory Impairment, Myocardial Infarction ([place]), Prostate Disorder, Seizure Disorder, Skin Disorder Additional Past Medical History / Comment(s): pain pump in back,past anemia. TIA X3, HEPATITIS C PAST HISTORY, LAST SEIZURE 2012 Last Myocardial Infarction Date:: POSSIBLE [place] 2012 History of Any Multi-Drug Resistant Organisms: None Reported Past Surgical History: Appendectomy, Back Surgery, Orthopedic Surgery Additional Past Surgical History / Comment(s): titanium lyn in lt leg, skin graph to rt 1st and middle finger, lt eardum replaced, cyrus. foot surgery to arch, cataract surgery bilateral with implant Past Anesthesia/Blood Transfusion Reactions: No Reported Reaction Past Psychological History: Anxiety, Depression Smoking Status: Former smoker Past Alcohol Use History: None Reported Past Drug Use History: None Reported - Past Family History Mother Family Medical History: Diabetes Mellitus, Pulmonary Embolus Father Additional Family Medical History / Comment(s): Father had pain problems/hallucinations. He committed suicide. General Exam Limitations: no limitations General appearance: alert, in no apparent distress Head exam: Present: atraumatic, normocephalic, normal inspection Eye exam: Present: normal appearance, PERRL, EOMI Pupils: Present: normal accommodation ENT exam: Present: normal exam, normal oropharynx, mucous membranes dry, TM's no rmal bilaterally, normal external ear exam, other (Pale mucous membranes) Neck exam: Present: normal inspection, full ROM. Absent: tenderness, lymphadenopathy Respiratory exam: Present: normal lung sounds bilaterally. Absent: respiratory distress, rales, rhonchi, stridor Cardiovascular Exam: Present: regular rate, normal rhythm, normal heart sounds. Absent: systolic murmur Rectal exam: Present: normal rectal tone, black stool Extremities exam: Present: normal inspection, full ROM, normal capillary refill. Absent: tenderness, pedal edema, joint swelling Back exam: Present: normal inspection, full ROM. Absent: tenderness, CVA tenderness (R), CVA tenderness (L) Neurological exam: Present: alert, oriented X3 Psychiatric exam: Present: normal affect, normal mood Skin exam: Present: warm, dry, intact, normal color Course Vital Signs 12/02/20 12/02/20 12/02/20 15:35 18:30 19:25 Temperature 97.7 F Pulse Rate 74 66 72 Respiratory 18 18 18 Rate Blood Pressure 121/61 119/49 110/51 O2 Sat by Pulse 96 98 97 Oximetry 12/02/20 20:00 Temperature Pulse Rate 70 Respiratory 18 Rate Blood Pressure 126/79 O2 Sat by Pulse 97 Oximetry Medical Decision Making - Medical Decision Making 60-year-old male with history of diabetes, COPD, CAD presents to the emergency department multiple chief complaint. On physical examination, patient does have pale mucous members. Hemoglobin of 6.1. Patient is expressing symptomatic anem ia. CMP also reveals elevated BUN of 49 with normal creatinine.hyperkalemia of 5.8 initially, repeat was 5.5. Patient will be given 1 unit of blood.positive stool occult. On reevaluation, patient reported experiencing dark stools over the past several weeks but no hematochezia. Patient will be admitted for further medical management. Case discussed with Dr. Mills. The admitting physician is GI consult - Lab Data Result diagrams: 12/02/20 18:35 12/02/20 19:51 Lab Results 12/02/20 12/02/20 12/02/20 Range/Units 18:27 18:35 18:35 WBC 6.0 (3.8-10.6) k/uL RBC 2.08 L (4.30-5.90) m/uL Hgb 6.1 L* (13.0-17.5) gm/dL Hct 18.8 L* (39.0-53.0) % MCV 90.6 (80.0-100.0) fL MCH 29.3 (25.0-35.0) pg MCHC 32.3 (31.0-37.0) g/dL RDW 15.9 H (11.5-15.5) % Plt Count 155 (150-450) k/uL MPV 7.5 Neutrophils % 71 % Lymphocytes % 21 % Monocytes % 5 % Eosinophils % 1 % Basophils % 0 % Neutrophils # 4.3 (1.3-7.7) k/uL Lymphocytes # 1.2 (1.0-4.8) k/uL Monocytes # 0.3 (0-1.0) k/uL Eosinophils # 0.1 (0-0.7) k/uL Basophils # 0.0 (0-0.2) k/uL Hypochromasia Moderate PT 10.2 (9.0-12.0) sec INR 0.9 (<1.2) APTT 17.8 L (22.0-30.0) sec D-Dimer 0.44 (<0.60) mg/L FEU Sodium (137-145) mmol/L Potassium (3.5-5.1) mmol/L Chloride (98-107) mmol/L Carbon Dioxide (22-30) mmol/L Anion Gap mmol/L BUN (9-20) mg/dL Creatinine (0.66-1.25) mg/dL Est GFR (CKD-EPI)AfAm (>60 ml/min/1.73 sqM) Est GFR (CKD-EPI)NonAf (>60 ml/min/1.73 sqM) Glucose (74-99) mg/dL POC Glucose (mg/dL) 198 H (75-99) mg/dL POC Glu Neurological Physiotherapist ID Kenia Arriola Calcium (8.4-10.2) mg/dL Total Bilirubin (0.2-1.3) mg/dL AST (17-59) U/L ALT (4-49) U/L Alkaline Phosphatase (38-126) U/L Troponin I (0.000-0.034) ng/mL Total Protein (6.3-8.2) g/dL Albumin (3.5-5.0) g/dL Urine Color Urine Appearance (Clear) Urine pH (5.0-8.0) Ur Specific [place] (1.001-1.035) Urine Protein (Negative) Urine Glucose (UA) (Negative) Urine Ketones (Negative) Urine Blood (Negative) Urine Nitrite (Negative) Urine Bilirubin (Negative) Urine Urobilinogen (<2.0) mg/dL Ur Leukocyte Esterase (Negative) Stool Occult Blood (Negative) Blood Type Blood Type Recheck Bld Type Recheck Status Antibody Screen Spec Expiration Date 12/02/20 12/02/20 12/02/20 Range/Units 18:35 18:35 18:35 WBC (3.8-10.6) k/uL RBC (4.30-5.90) m/uL Hgb (13.0-17.5) gm/dL Hct (39.0-53.0) % MCV (80.0-100.0) fL MCH (25.0-35.0) pg MCHC (31.0-37.0) g/dL RDW (11.5-15.5) % Plt Count (150-450) k/uL MPV Neutrophils % % Lymphocytes % % Monocytes % % Eosinophils % % Basophils % % Neutrophils # (1.3-7.7) k/uL Lymphocytes # (1.0-4.8) k/uL Monocytes # (0-1.0) k/uL Eosinophils # (0-0.7) k/uL Basophils # (0-0.2) k/uL Hypochromasia PT (9.0-12.0) sec INR (<1.2) APTT (22.0-30.0) sec D-Dimer (<0.60) mg/L FEU Sodium 137 (137-145) mmol/L Potassium 5.8 H (3.5-5.1) mmol/L Chloride 108 H (98-107) mmol/L Carbon Dioxide 22 (22-30) mmol/L Anion Gap 7 mmol/L BUN 49 H (9-20) mg/dL Creatinine 0.87 (0.66-1.25) mg/dL Est GFR (CKD-EPI)AfAm >90 (>60 ml/min/1.73 sqM) Est GFR (CKD-EPI)NonAf >90 (>60 ml/min/1.73 sqM) Glucose 170 H (74-99) mg/dL POC Glucose (mg/dL) (75-99) mg/dL POC Glu Neurological Physiotherapist ID Calcium 9.1 (8.4-10.2) mg/dL Total Bilirubin 0.2 (0.2-1.3) mg/dL AST 31 (17-59) U/L ALT 17 (4-49) U/L Alkaline Phosphatase 64 (38-126) U/L Troponin I <0.012 (0.000-0.034) ng/mL Total Protein 7.1 (6.3-8.2) g/dL Albumin 3.9 (3.5-5.0) g/dL Urine Color Light Yellow Urine Appearance Clear (Clear) Urine pH 5.0 (5.0-8.0) Ur Specific [place] 1.017 (1.001-1.035) Urine Protein Negative (Negative) Urine Glucose (UA) Trace H (Negative) Urine Ketones Negative (Negative) Urine Blood Negative (Negative) Urine Nitrite Negative (Negative) Urine Bilirubin Negative (Negative) Urine Urobilinogen <2.0 (<2.0) mg/dL Ur Leukocyte Esterase Negative (Negative) Stool Occult Blood (Negative) Blood Type Blood Type Recheck Bld Type Recheck Status Antibody Screen Spec Expiration Date 12/02/20 12/02/20 12/02/20 Range/Units 18:40 19:51 20:04 WBC (3.8-10.6) k/uL RBC (4.30-5.90) m/uL Hgb (13.0-17.5) gm/dL Hct (39.0-53.0) % MCV (80.0-100.0) fL MCH (25.0-35.0) pg MCHC (31.0-37.0) g/dL RDW (11.5-15.5) % Plt Count (150-450) k/uL MPV Neutrophils % % Lymphocytes % % Monocytes % % Eosinophils % % Basophils % % Neutrophils # (1.3-7.7) k/uL Lymphocytes # (1.0-4.8) k/uL Monocytes # (0-1.0) k/uL Eosinophils # (0-0.7) k/uL Basophils # (0-0.2) k/uL Hypochromasia PT (9.0-12.0) sec INR (<1.2) APTT (22.0-30.0) sec D-Dimer (<0.60) mg/L FEU Sodium (137-145) mmol/L Potassium 5.5 H (3.5-5.1) mmol/L Chloride (98-107) mmol/L Carbon Dioxide (22-30) mmol/L Anion Gap mmol/L BUN (9-20) mg/dL Creatinine (0.66-1.25) mg/dL Est GFR (CKD-EPI)AfAm (>60 ml/min/1.73 sqM) Est GFR (CKD-EPI)NonAf (>60 ml/min/1.73 sqM) Glucose (74-99) mg/dL POC Glucose (mg/dL) (75-99) mg/dL POC Glu Neurological Physiotherapist ID Calcium (8.4-10.2) mg/dL Total Bilirubin (0.2-1.3) mg/dL AST (17-59) U/L ALT (4-49) U/L Alkaline Phosphatase (38-126) U/L Troponin I (0.000-0.034) ng/mL Total Protein (6.3-8.2) g/dL Albumin (3.5-5.0) g/dL Urine Color Urine Appearance (Clear) Urine pH (5.0-8.0) Ur Specific [place] (1.001-1.035) Urine Protein (Negative) Urine Glucose (UA) (Negative) Urine Ketones (Negative) Urine Blood (Negative) Urine Nitrite (Negative) Urine Bilirubin (Negative) Urine Urobilinogen (<2.0) mg/dL Ur Leukocyte Esterase (Negative) Stool Occult Blood Positive (Negative) Blood Type A Positive Blood Type Recheck No Previous Record Bld Type Recheck Status CABO Indicated Antibody Screen NEGATIVE Spec Expiration Date 12/05/20202339 Disposition Clinical Impression: Hyperkalemia, Anemia, GI bleed Disposition: ADMITTED IP TO THIS [facility] Condition: Fair Is patient prescribed a controlled substance at d/c from ED?: No Referrals: Sharyn Whitlock DO [Primary Care Provider] - 1-2 days Time of Disposition: 20:42
[2020-12-02 18:29] LABS: Glucose,Whole Blood 198 mg/dL (75-99)
[2020-12-02 18:46] LABS: Basophils % (A) 0 %; Eosinophils # (A) 0.1 k/uL (0-0.7); Eosinophils % (A) 1 %; Hypochromasia Moderate; Lymphocytes # (A) 1.2 k/uL (1.0-4.8); Lymphocytes % (A) 21 %; MCH 29.3 pg (25.0-35.0); MCHC 32.3 g/dL (31.0-37.0); MCV 90.6 fL (80.0-100.0); Mean Platelet Volume 7.5; Monocytes # (A) 0.3 k/uL (0-1.0); Monocytes % (A) 5 %; Neutrophils # (A) 4.3 k/uL (1.3-7.7); Neutrophils % (A) 71 %; Platelet Count 155 k/uL (150-450); RBC 2.08 m/uL (4.30-5.90); RDW 15.9 % (11.5-15.5)
[2020-12-02 18:54] LABS: ALT 17 U/L (4-49); AST 31 U/L (17-59); African American GFR (CKD) >90 (>60 ml/min/1.73 sqM); Albumin 3.9 g/dL (3.5-5.0); Alkaline Phosphatase 64 U/L (38-126); Anion Gap 7 mmol/L; Appearance,Urine Clear (Clear); Bilirubin,Urine Negative (Negative); Blood Urea Nitrogen 49 mg/dL (9-20); Blood,Urine Negative (Negative); Calcium 9.1 mg/dL (8.4-10.2); Carbon Dioxide 22 mmol/L (22-30); Chloride 108 mmol/L (98-107); Color,Urine Light Yellow; Glucose 170 mg/dL (74-99); Glucose,Urine (UA) Trace (Negative); Ketones,Urine Negative (Negative); Leukocyte Esterase,Urine Negative (Negative); Nitrite,Urine Negative (Negative); Non-African American GFR(CKD) >90 (>60 ml/min/1.73 sqM); Potassium 5.8 mmol/L (3.5-5.1); Protein,Urine Negative (Negative); Sodium 137 mmol/L (137-145); Specific Gravity,Urine 1.017 (1.001-1.035); Total Bilirubin 0.2 mg/dL (0.2-1.3); Total Protein 7.1 g/dL (6.3-8.2); Urobilinogen,Urine <2.0 mg/dL (<2.0)
[2020-12-02 19:07] LABS: HGB 6.1 gm/dL (13.0-17.5)
[2020-12-02 19:08] LABS: HCT 18.8 % (39.0-53.0)
[2020-12-02 19:17] LABS: D-Dimer 0.44 mg/L FEU (<0.60); INR 0.9 (<1.2); Prothrombin Time 10.2 sec (9.0-12.0)
[2020-12-02 19:30] LABS: Partial Thromboplastin Time 17.8 sec (22.0-30.0)
[2020-12-02] MEDS ORDERED: NALOXONE 0.4 MG/ML 1 ML VIAL IV PRN (20:33)
[2020-12-03 04:52] LABS: Basophils % (A) 0 %; Eosinophils # (A) 0.1 k/uL (0-0.7); Eosinophils % (A) 2 %; Hypochromasia Slight; Lymphocytes # (A) 1.9 k/uL (1.0-4.8); Lymphocytes % (A) 30 %; MCH 29.3 pg (25.0-35.0); MCHC 32.7 g/dL (31.0-37.0); MCV 89.5 fL (80.0-100.0); Monocytes # (A) 0.4 k/uL (0-1.0); Monocytes % (A) 6 %; Neutrophils # (A) 3.6 k/uL (1.3-7.7); Neutrophils % (A) 58 %; Platelet Count 132 k/uL (150-450); Poikilocytosis Slight; RBC 2.14 m/uL (4.30-5.90); RDW 15.4 % (11.5-15.5); WBC 6.2 k/uL (3.8-10.6)
[2020-12-03 05:04] LABS: HCT 19.2 % (39.0-53.0); HGB 6.3 gm/dL (13.0-17.5)
[2020-12-03] MEDS ORDERED: PROPRANOLOL 10 MG TAB PO SCH (09:00)
[2020-12-03 09:18] LABS: Glucose,Whole Blood 132 mg/dL (75-99)
[2020-12-03] MEDS: VALSARTAN 160 MG TAB PO SCH ×2 (09:24→20:50)
[2020-12-03] MEDS: HYDROcodone/APAP 5-325MG 1 EACH TAB PO SCH ×2 (09:27→20:12)
[2020-12-03] MEDS: INSULIN ASPART (NovoLOG) 100 UNIT/ML VIAL SQ SCH ×4 (09:29→20:18)
[2020-12-03] MEDS: LACOSAMIDE 50 MG TABLET PO SCH ×2 (09:32→20:09)
[2020-12-03] MEDS: PREGABALIN 100 MG CAP PO SCH ×2 (09:32→20:09)
[2020-12-03 11:46] LABS: Reticulocyte % 4.6 % (0.5-2.0)
[2020-12-03 12:17] LABS: Glucose,Whole Blood 154 mg/dL (75-99)
[2020-12-03 12:25] LABS: Basophils % (A) 0 %; Eosinophils # (A) 0.1 k/uL (0-0.7); Eosinophils % (A) 2 %; HCT 22.5 % (39.0-53.0); HGB 7.5 gm/dL (13.0-17.5); Hypochromasia Moderate; Lymphocytes # (A) 1.7 k/uL (1.0-4.8); Lymphocytes % (A) 22 %; MCHC 33.1 g/dL (31.0-37.0); MCV 90.7 fL (80.0-100.0); Mean Platelet Volume 6.9; Monocytes # (A) 0.7 k/uL (0-1.0); Monocytes % (A) 10 %; Neutrophils # (A) 4.8 k/uL (1.3-7.7); Neutrophils % (A) 63 %; Platelet Count 165 k/uL (150-450); Poikilocytosis Slight; RBC 2.48 m/uL (4.30-5.90); RDW 15.9 % (11.5-15.5); WBC 7.6 k/uL (3.8-10.6)
[2020-12-03 16:30] LABS: Glucose,Whole Blood 174 mg/dL (75-99)
--- NOTE | 2020-12-03 16:59 | P.CONS ---
History of Present Illness - Reason for Consult Consult date: 12/03/20 anemia Requesting physician: Dmitriy Liu - Chief Complaint elevated blood sugars - History of Present Illness Placenta pleasant 60-year-old male with a medical history of diabetes, COPD, hepatitis C, treated, coronary artery disease who is on Plavix who presented to the emergency department of not feeling well and having his blood sugars run high. He states his blood sugars were running in the 250s, he was also having low blood pressure and heart palpitations. Part of his workup in the emergency department he was noted to have a hemoglobin of 6.1, he was transfused with 1 unit of PRBC transfusion and hemoglobin only increased to 6.3, another unit of PRBC is ordered. He denies any liver cirrhosis related to his hepatitis, he follows with Angeline Castellanos. States he was diagnosed about one year ago and treated. The patient states he has been noticing for the last 2-3 weeks black stools and is having some left lower quadrant pain. Oct 24 2018 he underwent a colonoscopy and EGD by Dr. Santiago. EGD showed antral gastritis, colonoscopy showed transverse colon polyp, mild diverticulosis, and poor prep. He denies any previous history of peptic ulcer disease, no NSAID use and no history of acid reflux. He also underwent a hemorrhoidectomy in [place] [address] Santiago. Today's labs WBC 6.2, hemoglobin 6.3, hematocrit 19.2, platelets 132,000, total bilirubin 0.2, alkaline phosphatase 64, AST 31, ALT 17. INR 0.9. Stool occult blood positive. Review of Systems REVIEW OF SYSTEMS: CARDIOPULMONARY: No chest pain or shortness of breath. Positive Heart palpitations. Gastrointestinal: Left lower quadrant pain No nausea or vomiting. No hematemesis, coffee-ground emesis. No rectal bleeding. Black stools. GENITOURINARY: No dysuria or hematuria. MUSCULOSKELETAL: Reports normal range of motion., Joint pain. SKIN: No rashes. No jaundice. ENDOCRINE: No chills, fevers. No excessive weight gain or loss. No polydipsia or polyuria. Hyperglycemia. PSYCHIATRIC: Unremarkable. NEUROLOGY: No change in mental status. Denies dizziness, headache. ENT: Vision unremarkable. CONSTITUTIONAL: No recent weight loss. No fever, chills, night sweats. Past Medical History Past Medical History: COPD, CVA/TIA, Diabetes Mellitus, Hyperlipidemia, Hypertension, Memory Impairment, Myocardial Infarction ([place]), Prostate Disorder, Seizure Disorder, Skin Disorder Additional Past Medical History / Comment(s): pain pump in back,past anemia. TIA X3, HEPATITIS C PAST HISTORY, LAST SEIZURE 2012 Last Myocardial Infarction Date:: POSSIBLE [place] 2012 History of Any Multi-Drug Resistant Organisms: None Reported Past Surgical History: Appendectomy, Back Surgery, Orthopedic Surgery Additional Past Surgical History / Comment(s): titanium lyn in lt leg, skin graph to rt 1st and middle finger, lt eardum replaced, cyrus. foot surgery to arch, cataract surgery bilateral with implant Past Anesthesia/Blood Transfusion Reactions: No Reported Reaction Past Psychological History: Anxiety, Depression Smoking Status: Former smoker Past Alcohol Use History: None Reported Past Drug Use History: None Reported - Past Family History Mother Family Medical History: Diabetes Mellitus, Pulmonary Embolus Father Additional Family Medical History / Comment(s): Father had pain problems/hallucinations. He committed suicide. Medications and Allergies Home Medications Medication Instructions Recorded Confirmed Type Aspirin [Adult Low Dose Aspirin EC] 81 mg PO HS 08/28/15 12/02/20 History Clopidogrel [Plavix] 75 mg PO DAILY 08/28/15 12/02/20 History Folic Acid 1 mg PO W/SUPPER 08/28/15 12/02/20 History Liraglutide [Victoza 2-Selvin] 1.8 mg SQ DAILY 07/19/18 12/02/20 History HYDROcodone/APAP 5-325MG [[place] 1 tab PO BID 10/20/18 12/02/20 History 5-325] Tamsulosin [Flomax] 0.4 mg PO BID 10/20/18 12/02/20 History Triamterene-Hctz 37.5-25Mg 1 tab PO DAILY 04/04/20 12/02/20 History [Maxzide 37.5-25] Valsartan [Diovan] 160 mg PO BID 04/04/20 12/02/20 History Albuterol Sulfate [Proair Hfa] 2 puff INHALATION RT-BID 10/22/20 12/02/20 History Atorvastatin [Lipitor] 80 mg PO W/SUPPER 10/22/20 12/02/20 History Budesonide-Formot 160-4.5 Mcg 2 puff INHALATION RT-BID 10/22/20 12/02/20 History [Symbicort 160-4.5 Mcg Inhaler] Glimepiride [Amaryl] 4 mg PO BID-W/MEALS 10/22/20 12/02/20 History Insulin Glargine,Hum.rec.anlog 60 unit SQ DAILY 10/22/20 12/02/20 History [Lantus Solostar] Lacosamide [Vimpat] 200 mg PO BID 10/22/20 12/02/20 History Multivitamin [Multivitamins Adult 1 tab PO DAILY 10/22/20 12/02/20 History Gummies] Pregabalin [Lyrica] 100 mg PO BID 10/22/20 12/02/20 History Thiamine [Vitamin B-1] 100 mg PO W/SUPPER 10/22/20 12/02/20 History Propranolol HCl 10 mg PO BID 12/02/20 12/02/20 History metFORMIN HCL ER [Glucophage Xr] 1,000 mg PO BID 12/02/20 12/02/20 History Allergies Allergy/AdvReac Type Severity Reaction Status Date / Time morphine AdvReac Nausea & Verified 12/02/20 15:40 Vomiting Physical Exam Vitals: Vital Signs Temp Pulse Resp BP Pulse Ox 12/03/20 09:34 98.1 F 78 16 116/62 95 12/03/20 08:51 98.1 F 73 16 129/70 12/03/20 07:50 98.1 F 72 16 109/52 93 L 12/03/20 07:20 98.2 F 72 16 128/59 95 12/03/20 07:10 98.1 F 71 16 118/79 93 L 12/03/20 06:00 70 18 92 L 12/03/20 05:00 73 18 96 12/03/20 04:00 98.1 F 72 16 99/49 95 12/03/20 01:17 98.1 F 72 16 140/79 95 12/03/20 01:00 71 16 147/75 100 12/03/20 00:00 72 16 120/57 100 12/02/20 23:26 98.0 F 73 18 119/52 12/02/20 22:56 97.8 F 72 18 118/58 12/02/20 22:46 98.1 F 71 18 113/48 97 12/02/20 22:00 76 16 134/50 95 06/21/21 21:00 74 16 124/48 95 12/02/20 20:00 70 18 126/79 97 12/02/20 19:25 72 18 110/51 97 12/02/20 18:30 66 18 119/49 98 12/02/20 15:35 97.7 F 74 18 121/61 96 Intake and Output 12/02/20 12/03/20 12/03/20 22:59 06:59 14:59 Intake Total 0 310 310 Balance 0 310 310 Intake: Blood Product 0 310 310 Rc As-1 Unit 0 310 [id number] Rc As-1 Unit 310 [id number] Other: Weight 95.254 kg General appearance: The patient is alert, oriented, appears in no acute distress. HET: Head is normocephalic and atraumatic. Junk CT the pink. Sclerae anicteric. Neck: Supple without lymphadenopathy. Trachea midline. Heart: S1 S2. Regular rate and rhythm. Lungs: Clear to auscultation. Abdomen: Soft, mild left lower quadrant tenderness, nondistended with bowel sounds. No guarding or rigidity. Extremities: Normal skin color and turgor. No pedal edema. Neurological: No focal deficits. Alert and oriented 3. Results CBC & Chem 7: 12/03/20 11:47 12/02/20 19:51 Labs: Abnormal Lab Results - Last 24 Hours (Table) 12/02/20 12/02/20 12/02/20 Range/Units 18:27 18:35 18:35 RBC 2.08 L (4.30-5.90) m/uL Hgb 6.1 L* (13.0-17.5) gm/dL Hct 18.8 L* (39.0-53.0) % RDW 15.9 H (11.5-15.5) % Plt Count (150-450) k/uL APTT 17.8 L (22.0-30.0) sec Potassium (3.5-5.1) mmol/L Chloride (98-107) mmol/L BUN (9-20) mg/dL Glucose (74-99) mg/dL POC Glucose (mg/dL) 198 H (75-99) mg/dL Urine Glucose (UA) (Negative) Crossmatch 12/02/20 12/02/20 12/02/20 Range/Units 18:35 18:35 18:40 RBC (4.30-5.90) m/uL Hgb (13.0-17.5) gm/dL Hct (39.0-53.0) % RDW (11.5-15.5) % Plt Count (150-450) k/uL APTT (22.0-30.0) sec Potassium 5.8 H (3.5-5.1) mmol/L Chloride 108 H (98-107) mmol/L BUN 49 H (9-20) mg/dL Glucose 170 H (74-99) mg/dL POC Glucose (mg/dL) (75-99) mg/dL Urine Glucose (UA) Trace H (Negative) Crossmatch See Detail 12/02/20 12/03/20 12/03/20 Range/Units 19:51 04:38 09:16 RBC 2.14 L (4.30-5.90) m/uL Hgb 6.3 L* (13.0-17.5) gm/dL Hct 19.2 L* (39.0-53.0) % RDW (11.5-15.5) % Plt Count 132 L (150-450) k/uL APTT (22.0-30.0) sec Potassium 5.5 H (3.5-5.1) mmol/L Chloride (98-107) mmol/L BUN (9-20) mg/dL Glucose (74-99) mg/dL POC Glucose (mg/dL) 132 H (75-99) mg/dL Urine Glucose (UA) (Negative) Crossmatch Assessment and Plan (1) GI bleed Narrative/Plan: 60-year-old male with multiple comorbidities including coronary artery disease who is on Plavix who presented to the emergency department with complaints of not feeling well, elevated blood sugars, and heart palpitations was found to be anemic. He had initial hemoglobin of 6.1, he had one unit of PRBC transfusion with a repeat hemoglobin of 6.3. He has no previous history of GI bleed, no previous history of peptic ulcer disease, denies use of NSAIDs or acid reflux. States he has been having black stools for 2-3 weeks duration. He had a EGD and colonoscopy in October 2018. Colonoscopy was significant for transverse colon polyp, mild diverticulosis, with a poor prep. EGD showed mild gastritis. He also had a hemorrhoidectomy in November 2019. He's had no further black stools since last night. Denying any nausea or vomiting or abdominal pain states he has had some left lower quadrant tenderness. He dealing with an upper GI bleed, possible etiologies include gastritis, esophagitis, AVM, peptic ulcer disease or other etiologies. Will proceed with EGD tomorrow. Current Visit: Yes Status: Acute Code(s): K92.2 - GASTROINTESTINAL HEMORRHAGE, UNSPECIFIED SNOMED Code(s): 38468626 (2) Occult blood positive stool Current Visit: Yes Status: Acute Code(s): R19.5 - OTHER FECAL ABNORMALITIES SNOMED Code(s): 51494460 (3) Anemia Current Visit: Yes Status: Acute Code(s): D64.9 - ANEMIA, UNSPECIFIED SNOMED Code(s): 555017304 Plan: 1. Anemia panel ordered 2. Daily CBC will transfuse for hemoglobin less than 7 3. Continue to hold Plavix 4. Patient may have clear liquid diet, nothing by mouth after midnight 5. Protonix 40 mg twice a day 6. Avoid NSAIDs 7. Will proceed with EGD tomorrow. The procedure was discussed in detail with the patient and his including risks and benefits. Patient is willing to proceed. Thank you for this consultation, we will continue to follow. Dr. Chua I agree with the dictator's note, documented as a scribe by Daysi Bhatia.
[2020-12-03] MEDS: ATORVASTATIN 80 MG TAB PO SCH (17:29)
[2020-12-03 19:08] LABS: Ferritin 22.7 ng/mL (22.0-322.0)
[2020-12-03 19:15] LABS: % Iron Saturation 1.21 (15.00-50.00); Folate, Serum >24.0 ng/mL; Iron 6 ug/dL (65-175); Total Iron Binding Capacity 497 ug/dL (228-460)
[2020-12-03] MEDS: SYMBICORT 160-4.5 MCG INHALER INHALATION SCH (19:32)
[2020-12-03] MEDS: ALBUTEROL HFA INHALER INHALATION SCH (19:32)
[2020-12-03 20:00] LABS: Glucose,Whole Blood 209 mg/dL (75-99)
[2020-12-03] MEDS: PANTOPRAZOLE 40 MG/10 ML VIAL IVP SCH (20:09)
[2020-12-04 06:00] LABS: Anisocytosis Slight; HCT 23.7 % (39.0-53.0); HGB 7.5 gm/dL (13.0-17.5); Hypochromasia Moderate; MCH 28.5 pg (25.0-35.0); MCHC 31.5 g/dL (31.0-37.0); MCV 90.7 fL (80.0-100.0); Mean Platelet Volume 7.5; Platelet Count 165 k/uL (150-450); Poikilocytosis Slight; RBC 2.61 m/uL (4.30-5.90); WBC 6.8 k/uL (3.8-10.6)
[2020-12-04 07:15] LABS: Glucose,Whole Blood 145 mg/dL (75-99)
[2020-12-04] MEDS: SYMBICORT 160-4.5 MCG INHALER INHALATION SCH ×2 (07:19→21:36)
[2020-12-04] MEDS: ALBUTEROL HFA INHALER INHALATION SCH ×2 (07:19→21:36)
[2020-12-04] MEDS: PANTOPRAZOLE 40 MG/10 ML VIAL IVP SCH ×2 (08:08→21:27)
[2020-12-04] MEDS: LACOSAMIDE 50 MG TABLET PO SCH ×2 (08:08→21:26)
[2020-12-04] MEDS: HYDROcodone/APAP 5-325MG 1 EACH TAB PO SCH ×2 (08:09→21:26)
[2020-12-04] MEDS: PREGABALIN 100 MG CAP PO SCH ×2 (08:10→21:27)
[2020-12-04] MEDS: INSULIN ASPART (NovoLOG) 100 UNIT/ML VIAL SQ SCH ×4 (08:10→21:26)
[2020-12-04] MEDS: VALSARTAN 160 MG TAB PO SCH (08:10)
--- NOTE | 2020-12-04 08:33 | P.HPIM ---
History of Present Illness H&P Date: 12/03/20 Chief Complaint: malaise Sukh Zamarripa is a 60 yo M with PMH CAD, T2DM, cirrhosis who presented to the ED after noticing high blood sugars, low BP and dizziness at home. He states he takes plavix and has noticed dark and tarry stools on and off for a week or two but the last few days he has become lightheaded and dizzy. He denies any chest pain, shortness of breath, abdominal pain or nausea. On presentation vitals stable, Hgb 6.1, renal function stable, D-dimer normal, ferritin 22, FOBT positive. Pt does note a history of hepatitis C that has been treated, denies k nown history of cirrhosis. Review of Systems All systems: negative Constitutional: Reports malaise, Reports weakness, Denies chills, Denies fever Eyes: denies blurred vision, denies pain Ears, nose, mouth and throat: Denies headache, Denies sore throat Cardiovascular: Reports lightheadedness, Reports palpitations, Denies chest pain, Denies shortness of breath Respiratory: Denies cough Gastrointestinal: Denies abdominal pain, Denies diarrhea, Denies nausea, Denies vomiting Musculoskeletal: Denies myalgias Integumentary: Denies pruritus, Denies rash Neurological: Denies numbness, Denies weakness Psychiatric: Denies anxiety, Denies depression Endocrine: Denies fatigue, Denies weight change Past Medical History Past Medical History: COPD, CVA/TIA, Diabetes Mellitus, Hyperlipidemia, Hypertension, Memory Impairment, Myocardial Infarction (OR), Prostate Disorder, Seizure Disorder, Skin Disorder Additional Past Medical History / Comment(s): pain pump in back,past anemia. TIA X3, HEPATITIS C PAST HISTORY, LAST SEIZURE 2012 Last Myocardial Infarction Date:: POSSIBLE OR 2012 History of Any Multi-Drug Resistant Organisms: None Reported Past Surgical History: Appendectomy, Back Surgery, Orthopedic Surgery Additional Past Surgical History / Comment(s): titanium lyn in lt leg, skin graph to rt 1st and middle finger, lt eardum replaced, cyrus. foot surgery to arch, cataract surgery bilateral with implant Past Anesthesia/Blood Transfusion Reactions: No Reported Reaction Past Psychological History: Anxiety, Depression Smoking Status: Former smoker Past Alcohol Use History: None Reported Past Drug Use History: None Reported - Past Family History Mother Family Medical History: Diabetes Mellitus, Pulmonary Embolus Father Additional Family Medical History / Comment(s): Father had pain problems/hallu cinations. He committed suicide. Medications and Allergies Home Medications Medication Instructions Recorded Confirmed Type Aspirin [Adult Low Dose Aspirin EC] 81 mg PO HS 08/28/15 12/02/20 History Clopidogrel [Plavix] 75 mg PO DAILY 08/28/15 12/02/20 History Folic Acid 1 mg PO W/SUPPER 08/28/15 12/02/20 History Liraglutide [Victoza 2-Selvin] 1.8 mg SQ DAILY 07/19/18 12/02/20 History HYDROcodone/APAP 5-325MG [Webb 1 tab PO BID 10/20/18 12/02/20 History 5-325] Tamsulosin [Flomax] 0.4 mg PO BID 10/20/18 12/02/20 History Triamterene-Hctz 37.5-25Mg 1 tab PO DAILY 04/04/20 12/02/20 History [Maxzide 37.5-25] Valsartan [Diovan] 160 mg PO BID 04/04/20 12/02/20 History Albuterol Sulfate [Proair Hfa] 2 puff INHALATION RT-BID 10/22/20 12/02/20 History Atorvastatin [Lipitor] 80 mg PO W/SUPPER 10/22/20 12/02/20 History Budesonide-Formot 160-4.5 Mcg 2 puff INHALATION RT-BID 10/22/20 12/02/20 History [Symbicort 160-4.5 Mcg Inhaler] Glimepiride [Amaryl] 4 mg PO BID-W/MEALS 10/22/20 12/02/20 History Insulin Glargine,Hum.rec.anlog 60 unit SQ DAILY 10/22/20 12/02/20 History [Lantus Solostar] Lacosamide [Vimpat] 200 mg PO BID 10/22/20 12/02/20 History Multivitamin [Multivitamins Adult 1 tab PO DAILY 10/22/20 12/02/20 History Gummies] Pregabalin [Lyrica] 100 mg PO BID 10/22/20 12/02/20 History Thiamine [Vitamin B-1] 100 mg PO W/SUPPER 10/22/20 12/02/20 History Propranolol HCl 10 mg PO BID 12/02/20 12/02/20 History metFORMIN HCL ER [Glucophage Xr] 1,000 mg PO BID 12/02/20 12/02/20 History Allergies Allergy/AdvReac Type Severity Reaction Status Date / Time morphine AdvReac Nausea & Verified 12/02/20 15:40 Vomiting Physical Exam Vitals: Vital Signs Temp Pulse Pulse Resp BP BP Pulse Ox 12/03/20 20:00 97.5 F L 75 16 155/55 96 12/03/20 14:00 98.7 F 71 14 146/63 96 12/03/20 12:24 98.0 F 68 16 111/49 95 12/03/20 09:34 98.1 F 78 16 116/62 95 12/03/20 08:51 98.1 F 73 16 129/70 12/03/20 07:50 98.1 F 72 16 109/52 93 L 12/03/20 07:20 98.2 F 72 16 128/59 95 12/03/20 07:10 98.1 F 71 16 118/79 93 L 12/03/20 06:00 70 18 92 L 12/03/20 05:00 73 18 96 12/03/20 04:00 98.1 F 72 16 99/49 95 12/03/20 01:17 98.1 F 72 16 140/79 95 12/03/20 01:00 71 16 147/75 100 12/03/20 00:00 72 16 120/57 100 12/02/20 23:26 98.0 F 73 18 119/52 Intake and Output 12/03/20 12/03/20 12/04/20 14:59 22:59 06:59 Intake Total 310 Balance 310 Intake: Blood Product 310 Rc As-1 Unit 310 [id number] Other: Voiding Method Toilet # Voids 1 General: well developed, well nourished, NAD. Vitals reviewed HEENT: Normocephalic, atraumatic, mucus membranes moist Neck: supple, no JVD, no thyromegaly CV: RRR, no murmur. Pulses 2+ Lungs: Normal effort, clear throughout Abd: soft, nontender, non distended Neuro: alert and oriented x3, no focal deficit Skin: warm and dry Results CBC & Chem 7: 12/04/20 05:39 12/02/20 19:51 Labs: Abnormal Lab Results - Last 24 Hours (Table) 12/02/20 12/02/20 12/02/20 Range/Units 18:35 18:35 18:40 RBC (4.30-5.90) m/uL Hgb (13.0-17.5) gm/dL Hct (39.0-53.0) % RDW (11.5-15.5) % Plt Count (150-450) k/uL Retic Count 4.6 H (0.5-2.0) % POC Glucose (mg/dL) (75-99) mg/dL Iron 6 L (65-175) ug/dL TIBC 497 H (228-460) ug/dL % Saturation 1.21 L (15.00-50.00) Crossmatch See Detail 12/03/20 12/03/20 12/03/20 Range/Units 04:38 09:16 11:47 RBC 2.14 L 2.48 L (4.30-5.90) m/uL Hgb 6.3 L* 7.5 L (13.0-17.5) gm/dL Hct 19.2 L* 22.5 L (39.0-53.0) % RDW 15.9 H (11.5-15.5) % Plt Count 132 L (150-450) k/uL Retic Count (0.5-2.0) % POC Glucose (mg/dL) 132 H (75-99) mg/dL Iron (65-175) ug/dL TIBC (228-460) ug/dL % Saturation (15.00-50.00) Crossmatch 12/03/20 12/03/20 12/03/20 Range/Units 12:16 16:28 19:59 RBC (4.30-5.90) m/uL Hgb (13.0-17.5) gm/dL Hct (39.0-53.0) % RDW (11.5-15.5) % Plt Count (150-450) k/uL Retic Count (0.5-2.0) % POC Glucose (mg/dL) 154 H 174 H 209 H (75-99) mg/dL Iron (65-175) ug/dL TIBC (228-460) ug/dL % Saturation (15.00-50.00) Crossmatch Thrombosis Risk Factor Assmnt - Choose All That Apply Any of the Below Risk Factors Present?: Yes Each Factor Represents 1 point: Abnormal pulmonary function (COPD), Age 41-60 years, Obesity (BMI >25) Other Risk Factors: No Other congenital or acquired thrombophilia - If yes, enter type in comment: No Thrombosis Risk Factor Assessment Total Risk Factor Score: 3 Thrombosis Risk Factor Assessment Level: Moderate Risk Assessment and Plan (1) Iron deficiency anemia Current Visit: Yes Status: Acute Code(s): D50.9 - IRON DEFICIENCY ANEMIA, UNSPECIFIED SNOMED Code(s): 56070293 (2) Hepatitis C Current Visit: Yes Status: Acute Code(s): B19.20 - UNSPECIFIED VIRAL HEPATITIS C WITHOUT HEPATIC COMA SNOMED Code(s): 26441759 (3) GI bleed Current Visit: Yes Status: Acute Code(s): K92.2 - GASTROINTESTINAL HEMORRHAGE, UNSPECIFIED SNOMED Code(s): 84675687 (4) Type 2 diabetes mellitus with insulin therapy Current Visit: No Status: Acute Code(s): E11.9 - TYPE 2 DIABETES MELLITUS WITHOUT COMPLICATIONS; Z79.4 - SURGICAL SUPPLIES STERILIZER (CURRENT) USE OF INSULIN SNOMED Code(s): 90411248 (5) Seizure disorder Current Visit: Yes Status: Acute Code(s): G40.909 - EPILEPSY, UNSP, NOT INTRACTABLE, WITHOUT STATUS EPILEPTICUS SNOMED Code(s): 565834151 Plan: 1. Rectal bleed and iron deficiency anemia. Admit, transfuse 1 U PRBC. Transfuse for Hgb <7. Consult to GI. Start IV protonix. Closely monitor Hgb 2. Hx CVA. Continue lipitor, hold plavix with GIB 3. Seizure disorder. Continue vimpat 4. T2DM. Hold lantus and victoza. Accucheck and sliding scale. Continue lyrica
--- NOTE | 2020-12-04 10:48 | P.PN ---
Subjective Progress Note Date: 12/04/20 Sukh Zamarripa is a 60 yo M with PMH CAD, T2DM, cirrhosis who presented to the ED after noticing high blood sugars, low BP and dizziness at home. He states he takes plavix and has noticed dark and tarry stools on and off for a week or two but the last few days he has become lightheaded and dizzy. He denies any chest pain, shortness of breath, abdominal pain or nausea. On presentation vitals stable, Hgb 6.1, renal function stable, D-dimer normal, ferritin 22, FOBT positive. Pt does note a history of hepatitis C that has been treated, denies known history of cirrhosis. 12/04/2020 NPO, Plavix remains on hold, EGD pending. Denies nausea, vomiting. No abdominal pain. No bowel movement. Hemoglobin 7.5, platelets 165. Denies chest pain, palpitations or shortness of breath. Objective - Vital Signs Vital signs: Vital Signs Temp 98.8 F 12/04/20 05:10 Pulse 67 12/04/20 05:10 Resp 16 12/04/20 05:10 BP 137/67 12/04/20 05:10 Pulse Ox 94 L 12/04/20 05:10 Intake & Output 12/03/20 12/04/20 12/04/20 18:59 06:59 18:59 Intake Total 310 540 Balance 310 540 Intake: Oral 540 Blood Product 310 Rc As-1 Unit 310 [id number] Other: Voiding Method Toilet Toilet # Voids 2 3 - Exam General: well developed, well nourished, NAD. Vitals reviewed HEENT: Normocephalic, atraumatic, mucus membranes dry Neck: supple, no JVD CV: RRR, no murmur. Pulses 2+ Lungs: Normal effort, clear throughout Abd: soft, mild diffuse tenderness, non distended Neuro: alert and oriented x3, no focal deficit Skin: warm and dry - Labs CBC & Chem 7: 12/04/20 05:39 12/02/20 19:51 Labs: Abnormal Lab Results - Last 24 Hours (Table) 12/02/20 12/02/20 12/03/20 Range/Units 18:35 18:35 11:47 RBC 2.48 L (4.30-5.90) m/uL Hgb 7.5 L (13.0-17.5) gm/dL Hct 22.5 L (39.0-53.0) % RDW 15.9 H (11.5-15.5) % Retic Count 4.6 H (0.5-2.0) % POC Glucose (mg/dL) (75-99) mg/dL Iron 6 L (65-175) ug/dL TIBC 497 H (228-460) ug/dL % Saturation 1.21 L (15.00-50.00) 12/03/20 12/03/20 12/03/20 Range/Units 12:16 16:28 19:59 RBC (4.30-5.90) m/uL Hgb (13.0-17.5) gm/dL Hct (39.0-53.0) % RDW (11.5-15.5) % Retic Count (0.5-2.0) % POC Glucose (mg/dL) 154 H 174 H 209 H (75-99) mg/dL Iron (65-175) ug/dL TIBC (228-460) ug/dL % Saturation (15.00-50.00) 12/04/20 12/04/20 Range/Units 05:39 07:13 RBC 2.61 L (4.30-5.90) m/uL Hgb 7.5 L (13.0-17.5) gm/dL Hct 23.7 L (39.0-53.0) % RDW 16.0 H (11.5-15.5) % Retic Count (0.5-2.0) % POC Glucose (mg/dL) 145 H (75-99) mg/dL Iron (65-175) ug/dL TIBC (228-460) ug/dL % Saturation (15.00-50.00) Assessment and Plan Assessment: Rectal bleed with iron deficiency anemia. Suspect diverticular bleed related to history of hepatitis. EGD pending. Hepatitis C Diabetes mellitus type 2 Seizure disorder History of CVA Plan: Continue on current medication regime ,monitoring and symptomatic treatment. EGD pending. Continue on PPI. Discharge planning in progress pending endoscopy findings, movements patient has a nonbloody bowel movement. The impression and plan of care has been dictated as directed. : I performed a history and examination of this patient, discussed the same with the dictator. I agree with the dictator's note ,documented as a scribe. Any additional findings or plans will be noted.
[2020-12-04 11:01] LABS: Glucose,Whole Blood 168 mg/dL (75-99)
[2020-12-04] MEDS ORDERED: LIDOCAINE 1% INJ 10MG/ML (20 ML MDV) ONE (14:02)
[2020-12-04] MEDS ORDERED: PROPOFOL 10 MG/ML 20 ML VIAL IV ONE (14:02)
[2020-12-04] MEDS ORDERED: SODIUM CHLORIDE 0.9% 500 ML 500 ML IV ONE ×2 (14:05)
--- NOTE | 2020-12-04 14:51 | P.PCN ---
Date of Procedure: 12/04/20 Description of Procedure: BRIEF HISTORY: 60-year-old male with a medical history of diabetes, COPD, hepatitis C treated, coronary artery disease who is on Plavix who presented to the emergency department of not feeling well and having his blood sugars run high. He states his blood sugars were running in the 250s, he was also having low blood pressure and heart palpitations. Part of his workup in the emergency department he was noted to have a hemoglobin of 6.1, he was transfused with 1 unit of PRBC transfusion and hemoglobin only increased to 6.3, another unit of PRBC is ordered. He denies any liver cirrhosis related to his hepatitis, he follows with Angeline Castellanos. States he was diagnosed about one year ago and treated. The patient states he has been noticing for the last 2-3 weeks black stools and is having some left lower quadrant pain. Oct 24 2018 he underwent a colonoscopy and EGD by Dr. Santiago. EGD showed antral gastritis, colonoscopy showed transverse colon polyp, mild diverticulosis, and poor prep. He denies any previous history of peptic ulcer disease, no NSAID use and no history of acid reflux. He also underwent a hemorrhoidectomy in November [address] Santiago. PROCEDURE PERFORMED: Esophagogastroduodenoscopy. PREOPERATIVE DIAGNOSIS: Anemia thank you blood loss, GI bleed. ESTIMATED BLOOD LOSS: Minimal. IV sedation per anesthesia. PROCEDURE: After informed consent was obtained, the patient was brought into the endoscopy unit. IV sedation was administered by Anesthesia under continuous monitoring. Initially the Olympus GIF-190 video endoscope was inserted into the mouth. Esophagus intubated without any difficulty. It was gradually advanced into the stomach and duodenum and carefully examined. The bulb and the second part of the duodenum were examined and significant for a nonbleeding 5 mm linear ulcer in the duodenal sweep without active bleeding or high risk stigmata for bleeding. The scope at this time was withdrawn to the stomach, adequately insufflated with air, and upon careful examination, mucosa of the antrum, body, cardia and the fundus appeared normal, was significant for moderate erythema throughout the stomach consistent with moderate gastritis and a nonbleeding 3 mm linear ulcer without active bleeding or high risk stigmata for bleeding. No biopsies were taken of the ulcers in the setting of Plavix therapy . The scope was then withdrawn into the esophagus. The GE junction was located at 39 cm from the inc isors. The esophagus appeared normal. There were no erosions or ulcerations seen and the patient tolerated the procedure well. IMPRESSION: 1. Nonbleeding duodenal ulcer without high-risk stigmata for bleeding . 2. Nonbleeding antral ulcer without high-risk stigmata for bleeding. 3. Moderate gastritis. RECOMMENDATIONS: The findings of this examination were discussed with the patient and his . Okay to resume soft diet. Patient should be discharged on twice daily Protonix therapy. Strict avoidance of NSAIDs. Okay for aspirin for cardiac prophylaxis but he should stay on GI prophylaxis while on the medication. Recommend repeat EGD in 6-8 weeks to check for ulcer healing at which time biopsies can be performed.
[2020-12-04 17:03] LABS: Glucose,Whole Blood 246 mg/dL (75-99)
[2020-12-04] MEDS: ATORVASTATIN 80 MG TAB PO SCH (17:44)
[2020-12-04 20:09] LABS: Glucose,Whole Blood 285 mg/dL (75-99)
[2020-12-05] MEDS: VALSARTAN 160 MG TAB PO SCH ×2 (00:13→07:38)
[2020-12-05 05:06] VITALS: BP 98/60; PULSE 71; RESP 18; TEMP 98.2
[2020-12-05] MEDS: HYDROcodone/APAP 5-325MG 1 EACH TAB PO SCH (05:22)
[2020-12-05 07:03] LABS: Glucose,Whole Blood 179 mg/dL (75-99)
[2020-12-05] MEDS: PANTOPRAZOLE 40 MG/10 ML VIAL IVP SCH (07:37)
[2020-12-05] MEDS: PREGABALIN 100 MG CAP PO SCH (07:37)
[2020-12-05] MEDS: LACOSAMIDE 50 MG TABLET PO SCH (07:37)
[2020-12-05] MEDS: INSULIN ASPART (NovoLOG) 100 UNIT/ML VIAL SQ SCH (07:38)
[2020-12-05] MEDS: ALBUTEROL HFA INHALER INHALATION SCH (08:06)
[2020-12-05] MEDS: SYMBICORT 160-4.5 MCG INHALER INHALATION SCH (08:06)
[2020-12-05 09:27] LABS: HCT 25.4 % (39.0-53.0); HGB 7.9 gm/dL (13.0-17.5); Hypochromasia Moderate; MCH 28.7 pg (25.0-35.0); MCHC 31.2 g/dL (31.0-37.0); Mean Platelet Volume 7.4; Platelet Count 159 k/uL (150-450); Poikilocytosis Slight; RBC 2.76 m/uL (4.30-5.90); RDW 15.6 % (11.5-15.5); WBC 6.9 k/uL (3.8-10.6)
[2020-12-05 11:31] LABS: Glucose,Whole Blood 290 mg/dL (75-99)
--- NOTE | 2020-12-05 12:20 | P.PN ---
Subjective Progress Note Date: 12/05/20 Principal diagnosis: Anemia, GI bleed Patient is seen and examined the bedside. Denies any abdominal pain, nausea, vomiting. He is status post EGD yesterday showing a nonbleeding duodenal ulcerating nonbleeding antral ulcer along with moderate gastritis. He states he had a bowel movement this morning, still dark. Tolerated breakfast. He is being discharged home. Objective - Vital Signs Vital signs: Vital Signs Temp 98.2 F 12/05/20 05:00 Pulse 71 12/05/20 05:00 Resp 18 12/05/20 05:00 BP 98/60 12/05/20 05:00 Pulse Ox 95 12/05/20 05:00 Intake & Output 12/04/20 12/05/20 12/05/20 18:59 06:59 18:59 Intake Total 300 540 Balance 300 540 Intake: IV 300 Oral 540 Other: Voiding Method Toilet # Voids 2 - Exam General appearance: The patient is alert, oriented, appears in no acute dist ress. HET: Head is normocephalic and atraumatic. Conjunctiva pink. Sclera anicteric. Neck: Supple without lymphadenopathy. Abdomen: Soft, nontender, nondistended with bowel sounds. No guarding or rigidity. Extremities: Normal skin color and turgor. No pedal edema Skin: No rashes, no jaundice Neurological: No focal deficits. Alert and oriented 3. - Labs CBC & Chem 7: 12/05/20 08:26 12/02/20 19:51 Labs: Abnormal Lab Results - Last 24 Hours (Table) 12/04/20 12/04/20 12/05/20 Range/Units 17:00 20:07 07:01 RBC (4.30-5.90) m/uL Hgb (13.0-17.5) gm/dL Hct (39.0-53.0) % RDW (11.5-15.5) % POC Glucose (mg/dL) 246 H 285 H 179 H (75-99) mg/dL 12/05/20 Range/Units 08:26 RBC 2.76 L (4.30-5.90) m/uL Hgb 7.9 L (13.0-17.5) gm/dL Hct 25.4 L (39.0-53.0) % RDW 15.6 H (11.5-15.5) % POC Glucose (mg/dL) (75-99) mg/dL Assessment and Plan (1) GI bleed Narrative/Plan: 60-year-old male with multiple comorbidities including coronary artery disease who is on Plavix who presented to the emergency department with complaints of not feeling well, elevated blood sugars, and heart palpitations was found to be anemic. He had initial hemoglobin of 6.1, he had one unit of PRBC transfusion with a repeat hemoglobin of 6.3. He has no previous history of GI bleed, no previous history of peptic ulcer disease, denies use of NSAIDs or acid reflux. States he has been having black stools for 2-3 weeks duration. He had a EGD and colonoscopy in October 2018. Colonoscopy was significant for transverse colon polyp, mild diverticulosis, with a poor prep. EGD showed mild gastritis. He also had a hemorrhoidectomy in November 2019. He's had no further black stools since last night. Denying any nausea or vomiting or abdominal pain states he has had some left lower quadrant tenderness. He dealing with an upper GI bleed, possible etiologies include gastritis, esophagitis, AVM, peptic ulcer disease or other etiologies. Will proceed with EGD tomorrow. Status post EGD with findings of nonbleeding duodenal ulcer and nonbleeding antral ulcer without high risk stigmata for bleeding and moderate gastritis. Patient will continue Protonix 40 mg twice a day. Current Visit: Yes Status: Acute Code(s): K92.2 - GASTROINTESTINAL HEMORRHAGE, UNSPECIFIED SNOMED Code(s): 07362076 (2) Occult blood positive stool Current Visit: Yes Status: Acute Code(s): R19.5 - OTHER FECAL ABNORMALITIES SNOMED Code(s): 69130557 (3) Anemia Current Visit: Yes Status: Acute Code(s): D64.9 - ANEMIA, UNSPECIFIED SNOMED Code(s): 050502998 Plan: 1. Anemia panel ordered 2. Daily CBC will transfuse for hemoglobin less than 7 3. Status post EGD 4. May resume Plavix 5. Continue Protonix 40 mg twice a day 6. Diet as ordered 7. Follow-up with Dr. Chua in 6 weeks for repeat EGD. Will need to hold Plavix 5 days prior to EGD to obtain biopsies. Thank you for this consultation. Dr. Chua I agree with the dictator's note, documented as a scribe by Daysi Bhatia.
--- NOTE | 2020-12-05 15:26 | P.DS ---
Providers Date of admission: 12/02/20 20:33 Expected date of discharge: 12/05/20 Attending physician: Dmitriy Liu MD Consults: 12/02/20 20:33 Consult Physician Urgent Consulting Provider: Brian Chua Consult Reason/Comments: GI bleed Do you want consulting provider notified?: Yes Primary care physician: Sharyn Whitlock [facility] Course: Final Diagnoses: Rectal bleed with iron deficiency anemia. Status post EGD,reporting nonbleeding duodenal ulcer, nonbleeding antral ulcer, moderate gastritis. Hepatitis C Diabetes mellitus type 2 Seizure disorder History of CVA Hospital course:Sukh Zamarripa is a 60 yo M with PMH CAD, T2DM, cirrhosis who presented to the ED after noticing high blood sugars, low BP and dizziness at home. He states he takes plavix and has noticed dark and tarry stools on and off for a week or two but the last few days he has become lightheaded and dizzy. He denies any chest pain, shortness of breath, abdominal pain or nausea. On present ation vitals stable, Hgb 6.1, renal function stable, D-dimer normal, ferritin 22, FOBT positive. Pt does note a history of hepatitis C that has been treated, denies known history of cirrhosis. 12/04/2020 NPO, Plavix remains on hold, EGD pending. Denies nausea, vomiting. No abdominal pain. No bowel movement. Hemoglobin 7.5, platelets 165. Denies chest pain, palpitations or shortness of breath. Status post EGD reporting nonbleeding duodenal ulcer, nonbleeding antral ulcer, moderate gastritis. Tolerated procedure well. Dark bowel movement this morning. Per GI patient will be maintained on Protonix twice daily, avoidance of NSAIDs, Plavix discontinued, but okay to resume aspirin, with repeat EGD in 6-8 weeks to evaluate for ulcer healing, biopsies. Hemoglobin stable. Denies chest pain, palpitations or shortness of breath. Denies lightheadedness, dizziness or focal deficits. Denies nausea vomiting or abdominal pain. Patient will be discharged home today in a stable condition with guarded prognosis.) Close monitoring of CBC. The impression and plan of care has been dictated as directed. : I performed a history and examination of this patient, discussed the same with the dictator. I agree with the dictator's note ,documented as a scribe. Any additional findings or plans will be noted. Patient Condition at Discharge: Stable Plan - Discharge Summary Discharge Rx Participant: No New Discharge Prescriptions: New Pantoprazole Sodium [Protonix] 40 mg PO BID #60 tablet.dr Continue Folic Acid 1 mg PO W/SUPPER Aspirin [Adult Low Dose Aspirin EC] 81 mg PO HS Liraglutide [Victoza 2-Selvin] 1.8 mg SQ DAILY Tamsulosin [Flomax] 0.4 mg PO BID HYDROcodone/APAP 5-325MG [Monroe 5-325] 1 tab PO BID Valsartan [Diovan] 160 mg PO BID Triamterene-Hctz 37.5-25Mg [Maxzide 37.5-25] 1 tab PO DAILY Albuterol Sulfate [Proair Hfa] 2 puff INHALATION RT-BID Glimepiride [Amaryl] 4 mg PO BID-W/MEALS Lacosamide [Vimpat] 200 mg PO BID Thiamine [Vitamin B-1] 100 mg PO W/SUPPER Atorvastatin [Lipitor] 80 mg PO W/SUPPER Pregabalin [Lyrica] 100 mg PO BID Propranolol HCl 10 mg PO BID metFORMIN HCL ER [Glucophage Xr] 1,000 mg PO BID Budesonide-Formot 160-4.5 Mcg [Symbicort 160-4.5 Mcg Inhaler] 2 puff INHALATION RT-BID Insulin Glargine,Hum.rec.anlog [Lantus Solostar] 60 unit SQ DAILY Multivitamin [Multivitamins Adult Gummies] 1 tab PO DAILY Discontinued Clopidogrel [Plavix] 75 mg PO DAILY Discharge Medication List Aspirin [Adult Low Dose Aspirin EC] 81 mg PO HS 08/28/15 [History] Folic Acid 1 mg PO W/SUPPER 08/28/15 [History] Liraglutide [Victoza 2-Selvin] 1.8 mg SQ DAILY 07/19/18 [History] HYDROcodone/APAP 5-325MG [Monroe 5-325] 1 tab PO BID 10/20/18 [History] Tamsulosin [Flomax] 0.4 mg PO BID 10/20/18 [History] Triamterene-Hctz 37.5-25Mg [Maxzide 37.5-25] 1 tab PO DAILY 04/04/20 [History] Valsartan [Diovan] 160 mg PO BID 04/04/20 [History] Albuterol Sulfate [Proair Hfa] 2 puff INHALATION RT-BID 10/22/20 [History] Atorvastatin [Lipitor] 80 mg PO W/SUPPER 10/22/20 [History] Budesonide-Formot 160-4.5 Mcg [Symbicort 160-4.5 Mcg Inhaler] 2 puff INHALATION RT-BID 10/22/20 [History] Glimepiride [Amaryl] 4 mg PO BID-W/MEALS 10/22/20 [History] Insulin Glargine,Hum.rec.anlog [Lantus Solostar] 60 unit SQ DAILY 10/22/20 [History] Lacosamide [Vimpat] 200 mg PO BID 10/22/20 [History] Multivitamin [Multivitamins Adult Gummies] 1 tab PO DAILY 10/22/20 [History] Pregabalin [Lyrica] 100 mg PO BID 10/22/20 [History] Thiamine [Vitamin B-1] 100 mg PO W/SUPPER 10/22/20 [History] Propranolol HCl 10 mg PO BID 12/02/20 [History] metFORMIN HCL ER [Glucophage Xr] 1,000 mg PO BID 12/02/20 [History] Pantoprazole Sodium [Protonix] 40 mg PO BID #60 tablet. 12/05/20 [Rx] Follow up Appointment(s)/Referral(s): Dmitriy Liu MD [STAFF PHYSICIAN] - 12/09/20 10:30 am Brian Chua MD [STAFF PHYSICIAN] - 12/25/20 10:45 am () Ambulatory/Diagnostic Orders: Complete Blood Count w/diff [LAB.AMB] Time Frame: 3 Days, Location: None Selected Patient Instructions/Handouts: Pantoprazole (By mouth), Gastrointestinal Bleeding (DC), Complete Blood Count (GEN), Hyperkalemia (DC), Anemia (DC), Hemoccult Test (GEN) Activity/Diet/Wound Care/Special Instructions: As per GI recommendations, Plavix discontinued, resuming aspirin only with repeat EGD in 6-8 weeks. Discharge Disposition: HOME SELF-CARE
== END 2020-12-05 12:14 | disposition home or self-care (01) | DRG 379 ==
LOC: EC 15:27 → 5NMEDONC 20:33
PROVIDERS: ADMIT Family Medicine; ATTEND Family Medicine
PROC: 30233N1 Transfusion of Nonautologous Red Blood Cells into Peripheral Vein, Percutaneous Approach (ICD-10-PCS; 2020-12-02)
PROC: 0DJ08ZZ Inspection of Upper Intestinal Tract, Via Natural or Artificial Opening Endoscopic (ICD-10-PCS; principal; 2020-12-04 12:30)
DX: K26.4 Chronic or unspecified duodenal ulcer with hemorrhage (principal); K25.4 Chronic or unspecified gastric ulcer with hemorrhage; B18.2 Chronic viral hepatitis C; D50.9 Iron deficiency anemia, unspecified; J44.9 Chronic obstructive pulmonary disease, unspecified; E11.65 Type 2 diabetes mellitus with hyperglycemia; I25.10 Atherosclerotic heart disease of native coronary artery without angina pectoris; K29.70 Gastritis, unspecified, without bleeding; K57.90 Diverticulosis of intestine, part unspecified, without perforation or abscess without bleeding; I10 Essential (primary) hypertension; E87.5 Hyperkalemia; G40.909 Epilepsy, unspecified, not intractable, without status epilepticus; K74.60 Unspecified cirrhosis of liver; L98.9 Disorder of the skin and subcutaneous tissue, unspecified; N42.9 Disorder of prostate, unspecified; F32.9 Major depressive disorder, single episode, unspecified; F41.9 Anxiety disorder, unspecified; E78.5 Hyperlipidemia, unspecified; I25.2 Old myocardial infarction; Z79.4 Long term (current) use of insulin; Z20.822 Contact with and (suspected) exposure to COVID-19; Z86.73 Personal history of transient ischemic attack (TIA), and cerebral infarction without residual deficits; Z79.899 Other long term (current) drug therapy; Z87.19 Personal history of other diseases of the digestive system; Z79.02 Long term (current) use of antithrombotics/antiplatelets; Z79.51 Long term (current) use of inhaled steroids; Z79.82 Long term (current) use of aspirin; Z87.11 Personal history of peptic ulcer disease; Z87.891 Personal history of nicotine dependence; Z88.5 Allergy status to narcotic agent; Z86.010 Personal history of colon polyps; Z98.42 Cataract extraction status, left eye; Z98.41 Cataract extraction status, right eye; Z96.1 Presence of intraocular lens; Z90.49 Acquired absence of other specified parts of digestive tract
CPT/HCPCS: 36415; 43235; 80053; 81003; 82272; 82607; 82728; 82746; 83540; 83550; 84132; 84484; 85025; 85027; 85045; 85379; 85610; 85730; 86850; 86900; 86901; 86920; 87635; 93005; 94640; 96360; 99285

== ENCOUNTER 2020-12-10 10:28 | Emergency (ER) | payer OTHER ==
[2020-12-10 10:31] VITALS: PULSE 66; RESP 18; TEMP 97.9
[2020-12-10 10:38] VITALS: BP 145/54
[2020-12-10] MEDS ORDERED: PANTOPRAZOLE 40 MG/10 ML VIAL IVP STA (10:41)
[2020-12-10 11:03] LABS: Basophils % (A) 0 %; Eosinophils # (A) 0.1 k/uL (0-0.7); Eosinophils % (A) 2 %; HCT 23.4 % (39.0-53.0); HGB 7.6 gm/dL (13.0-17.5); Hypochromasia Moderate; Lymphocytes # (A) 1.3 k/uL (1.0-4.8); Lymphocytes % (A) 19 %; MCH 28.7 pg (25.0-35.0); MCHC 32.6 g/dL (31.0-37.0); MCV 87.9 fL (80.0-100.0); Mean Platelet Volume 7.7; Monocytes # (A) 0.4 k/uL (0-1.0); Monocytes % (A) 5 %; Neutrophils # (A) 4.8 k/uL (1.3-7.7); Neutrophils % (A) 71 %; Platelet Count 138 k/uL (150-450); Poikilocytosis Slight; RBC 2.66 m/uL (4.30-5.90); RDW 14.5 % (11.5-15.5); WBC 6.9 k/uL (3.8-10.6)
[2020-12-10 11:21] LABS: Albumin 4.2 g/dL (3.5-5.0); Calcium 9.5 mg/dL (8.4-10.2); Potassium 5.1 mmol/L (3.5-5.1); Total Bilirubin 0.2 mg/dL (0.2-1.3); Total Protein 7.3 g/dL (6.3-8.2)
[2020-12-10 11:28] LABS: INR 0.9 (<1.2); Prothrombin Time 9.9 sec (9.0-12.0)
--- NOTE | 2020-12-10 11:30 | ED ---
General Adult HPI - General Chief complaint: Recheck/Abnormal Lab/Rx Stated complaint: Low Hemoglobin Time Seen by Provider: 12/10/20 10:33 Source: patient, RN notes reviewed Mode of arrival: wheelchair Limitations: no limitations - History of Present Illness Initial comments: 60-year-old male with a past medical history of GI bleed, anemia presents to the emergency room for a chief complaint of abnormal hemoglobin value. Her called him this morning and stated that the hemoglobin he had drawn yesterday was abnormal. Patient is unsure what this number was. Patient denies any constitutional symptoms. Patient was recently admitted for GI bleed and his Plavix was discontinued. He reports that his stool is no longer black and seems to be improving.Patient has no other complaints at this time including shortness of breath, chest pain, abdominal pain, nausea or vomiting, headache, or visual changes. - Related Data Home Medications Medication Instructions Recorded Confirmed Aspirin [Adult Low Dose Aspirin EC] 81 mg PO HS 08/28/15 12/10/20 Folic Acid 1 mg PO W/SUPPER 08/28/15 12/10/20 Liraglutide [Victoza 2-Selvin] 1.8 mg SQ DAILY 07/19/18 12/10/20 HYDROcodone/APAP 5-325MG [Paron 1 tab PO BID 10/20/18 12/10/20 5-325] Tamsulosin [Flomax] 0.4 mg PO BID 10/20/18 12/10/20 Triamterene-Hctz 37.5-25Mg 1 tab PO DAILY 04/04/20 12/10/20 [Maxzide 37.5-25] Valsartan [Diovan] 160 mg PO BID 04/04/20 12/10/20 Albuterol Sulfate [Proair Hfa] 2 puff INHALATION RT-BID 10/22/20 12/10/20 Atorvastatin [Lipitor] 80 mg PO W/SUPPER 10/22/20 12/10/20 Budesonide-Formot 160-4.5 Mcg 2 puff INHALATION RT-BID 10/22/20 12/10/20 [Symbicort 160-4.5 Mcg Inhaler] Glimepiride [Amaryl] 4 mg PO BID-W/MEALS 10/22/20 12/10/20 Insulin Glargine,Hum.rec.anlog 60 unit SQ DAILY 10/22/20 12/10/20 [Lantus Solostar] Lacosamide [Vimpat] 200 mg PO BID 10/22/20 12/10/20 Multivitamin [Multivitamins Adult 1 tab PO DAILY 10/22/20 12/10/20 Gummies] Pregabalin [Lyrica] 100 mg PO BID 10/22/20 12/10/20 Thiamine [Vitamin B-1] 100 mg PO W/SUPPER 10/22/20 12/10/20 Propranolol HCl 10 mg PO BID 12/02/20 12/10/20 metFORMIN HCL ER [Glucophage Xr] 1,000 mg PO BID 12/02/20 12/10/20 Ferrous Sulfate [Feosol] 325 mg PO BID 12/10/20 12/10/20 Previous Rx's Medication Instructions Recorded Pantoprazole Sodium [Protonix] 40 mg PO BID #60 tablet. 12/05/20 Allergies Allergy/AdvReac Type Severity Reaction Status Date / Time morphine AdvReac Nausea & Verified 12/10/20 11:32 Vomiting Review of Systems ROS Statement: Those systems with pertinent positive or pertinent negative responses have been documented in the HPI. ROS Other: All systems not noted in ROS Statement are negative. Past Medical History Past Medical History: COPD, CVA/TIA, Diabetes Mellitus, Hyperlipidemia, Hypertension, Memory Impairment, Myocardial Infarction ([place]), Prostate Disorder, Seizure Disorder, Skin Disorder Additional Past Medical History / Comment(s): pain pump in back,past anemia. TIA X3, HEPATITIS C PAST HISTORY, LAST SEIZURE 2012 Last Myocardial Infarction Date:: POSSIBLE [place] 2012 History of Any Multi-Drug Resistant Organisms: None Reported Past Surgical History: Appendectomy, Back Surgery, Orthopedic Surgery Additional Past Surgical History / Comment(s): titanium lyn in lt leg, skin graph to rt 1st and middle finger, lt eardum replaced, cyrus. foot surgery to arch, cataract surgery bilateral with implant Past Anesthesia/Blood Transfusion Reactions: No Reported Reaction Past Psychological History: Anxiety, Depression Smoking Status: Former smoker Past Alcohol Use History: None Reported Past Drug Use History: None Reported - Past Family History Mother Family Medical History: Diabetes Mellitus, Pulmonary Embolus Father Additional Family Medical History / Comment(s): Father had pain problems/hallucinations. He committed suicide. General Exam Limitations: no limitations General appearance: alert, in no apparent distress Head exam: Present: atraumatic, normocephalic, normal inspection Eye exam: Present: normal appearance, PERRL, EOMI. Absent: scleral icterus, conjunctival injection, periorbital swelling ENT exam: Present: normal exam, mucous membranes moist Neck exam: Present: normal inspection, full ROM. Absent: tenderness, meningismus, lymphadenopathy Respiratory exam: Present: normal lung sounds bilaterally. Absent: respiratory distress, wheezes, rales, rhonchi, stridor Cardiovascular Exam: Present: regular rate, normal rhythm, normal heart sounds. Absent: systolic murmur, diastolic murmur, rubs, gallop, clicks GI/Abdominal exam: Present: soft, normal bowel sounds. Absent: distended, tenderness, guarding, rebound, rigid Rectal exam: Present: normal inspection, normal rectal tone Neurological exam: Present: alert Course Vital Signs 12/10/20 10:29 Temperature 97.9 F Pulse Rate 66 Respiratory 18 Rate Blood Pressure 145/54 O2 Sat by Pulse 96 Oximetry Medical Decision Making - Medical Decision Making Vitals are stable. Patient is well-appearing. CBC today shows a hemoglobin of 7.6 which does appear stable for patient. This is improved from recent hospitalization of 6.1. Stool guaiac is negative for blood. At this time patient can follow up with primary care however we do recommend a repeat hemoglobin within the next week. He will return here for any worsening symptoms. - Lab Data Result diagrams: 12/10/20 10:48 12/10/20 10:48 Lab Results 12/10/20 12/10/20 12/10/20 Range/Units 10:48 10:48 10:48 WBC 6.9 (3.8-10.6) k/uL RBC 2.66 L (4.30-5.90) m/uL Hgb 7.6 L (13.0-17.5) gm/dL Hct 23.4 L (39.0-53.0) % MCV 87.9 (80.0-100.0) fL MCH 28.7 (25.0-35.0) pg MCHC 32.6 (31.0-37.0) g/dL RDW 14.5 (11.5-15.5) % Plt Count 138 L (150-450) k/uL MPV 7.7 Neutrophils % 71 % Lymphocytes % 19 % Monocytes % 5 % Eosinophils % 2 % Basophils % 0 % Neutrophils # 4.8 (1.3-7.7) k/uL Lymphocytes # 1.3 (1.0-4.8) k/uL Monocytes # 0.4 (0-1.0) k/uL Eosinophils # 0.1 (0-0.7) k/uL Basophils # 0.0 (0-0.2) k/uL Hypochromasia Moderate Poikilocytosis Slight PT 9.9 (9.0-12.0) sec INR 0.9 (<1.2) APTT 20.2 L (22.0-30.0) sec Sodium (137-145) mmol/L Potassium (3.5-5.1) mmol/L Chloride (98-107) mmol/L Carbon Dioxide (22-30) mmol/L Anion Gap mmol/L BUN (9-20) mg/dL Creatinine (0.66-1.25) mg/dL Est GFR (CKD-EPI)AfAm (>60 ml/min/1.73 sqM) Est GFR (CKD-EPI)NonAf (>60 ml/min/1.73 sqM) Glucose (74-99) mg/dL Calcium (8.4-10.2) mg/dL Total Bilirubin (0.2-1.3) mg/dL AST (17-59) U/L ALT (4-49) U/L Alkaline Phosphatase (38-126) U/L Total Protein (6.3-8.2) g/dL Albumin (3.5-5.0) g/dL Stool Occult Blood Negative (Negative) 12/10/20 Range/Units 10:48 WBC (3.8-10.6) k/uL RBC (4.30-5.90) m/uL Hgb (13.0-17.5) gm/dL Hct (39.0-53.0) % MCV (80.0-100.0) fL MCH (25.0-35.0) pg MCHC (31.0-37.0) g/dL RDW (11.5-15.5) % Plt Count (150-450) k/uL MPV Neutrophils % % Lymphocytes % % Monocytes % % Eosinophils % % Basophils % % Neutrophils # (1.3-7.7) k/uL Lymphocytes # (1.0-4.8) k/uL Monocytes # (0-1.0) k/uL Eosinophils # (0-0.7) k/uL Basophils # (0-0.2) k/uL Hypochromasia Poikilocytosis PT (9.0-12.0) sec INR (<1.2) APTT (22.0-30.0) sec Sodium 139 (137-145) mmol/L Potassium 5.1 (3.5-5.1) mmol/L Chloride 102 (98-107) mmol/L Carbon Dioxide 27 (22-30) mmol/L Anion Gap 10 mmol/L BUN 23 H (9-20) mg/dL Creatinine 1.06 (0.66-1.25) mg/dL Est GFR (CKD-EPI)AfAm 89 (>60 ml/min/1.73 sqM) Est GFR (CKD-EPI)NonAf 77 (>60 ml/min/1.73 sqM) Glucose 125 H (74-99) mg/dL Calcium 9.5 (8.4-10.2) mg/dL Total Bilirubin 0.2 (0.2-1.3) mg/dL AST 30 (17-59) U/L ALT 21 (4-49) U/L Alkaline Phosphatase 76 (38-126) U/L Total Protein 7.3 (6.3-8.2) g/dL Albumin 4.2 (3.5-5.0) g/dL Stool Occult Blood (Negative) Disposition Clinical Impression: Anemia Disposition: HOME SELF-CARE Condition: Good Instructions (If sedation given, give patient instructions): Anemia (ED) Additional Instructions: Please follow-up with your doctor in one to 2 days. Return to the emergency room for any worsening symptoms. Is patient prescribed a controlled substance at d/c from ED?: No Referrals: Sharyn Whitlock DO [Primary Care Provider] - 1-2 days Time of Disposition: 11:51
[2020-12-10 11:33] LABS: Partial Thromboplastin Time 20.2 sec (22.0-30.0)
== END 2020-12-10 12:11 | disposition home or self-care (01) ==
LOC: EC 10:28
DX: D64.9 Anemia, unspecified (principal); J44.9 Chronic obstructive pulmonary disease, unspecified; E11.9 Type 2 diabetes mellitus without complications; I10 Essential (primary) hypertension; E78.5 Hyperlipidemia, unspecified; I25.2 Old myocardial infarction; G40.909 Epilepsy, unspecified, not intractable, without status epilepticus; F32.9 Major depressive disorder, single episode, unspecified; F41.9 Anxiety disorder, unspecified; Z86.73 Personal history of transient ischemic attack (TIA), and cerebral infarction without residual deficits; Z87.891 Personal history of nicotine dependence; Z79.4 Long term (current) use of insulin; Z79.51 Long term (current) use of inhaled steroids; Z79.82 Long term (current) use of aspirin
CPT/HCPCS: 36415; 86900; 86901; 80053; 85025; 85610; 85730; 86850; 82272; 99284; 96374; C9113

== ENCOUNTER 2021-02-06 06:26 | Day surgery (SDC) | payer OTHER ==
[2021-02-05 14:32] VITALS: BMI 36.1
[2021-02-06 06:57] LABS: Glucose,Whole Blood 111 mg/dL (75-99)
[2021-02-06 07:00] VITALS: TEMP 98.6
[2021-02-06] MEDS ORDERED: LACTATED RINGERS 1,000 ML IV ONE ×2 (07:00)
[2021-02-06] MEDS ORDERED: LIDOCAINE 1% INJ 10MG/ML (20 ML MDV) ONE (07:04)
[2021-02-06] MEDS ORDERED: PROPOFOL 10 MG/ML 20 ML VIAL IV ONE (07:04)
--- NOTE | 2021-02-06 07:18 | P.PCN ---
Date of Procedure: 02/06/21 Procedure(s) Performed: BRIEF HISTORY: Patient is a 60-year-old, pleasant, white male scheduled for an upper endoscopy as a part of follow-up of gastric antral ulcer noted on a recent upper endoscopy 2 months ago. He has been on Protonix 40 mg daily and doing well. He denies any abdominal pain. No nausea vomiting. PROCEDURE PERFORMED: Esophagogastroduodenoscopy with biopsy. PREOPERATIVE DIAGNOSIS: Follow-up gastric ulcer. IV sedation per anesthesia. PROCEDURE: After informed consent was obtained, the patient was brought into the endoscopy unit. IV sedation was administered by Anesthesia under continuous monitoring. Initially the Olympus GIF-140 video endoscope was inserted into the mouth. Esophagus intubated without any difficulty. It was gradually advanced into the stomach and duodenum and carefully examined. The bulb and the second part of the duodenum appeared normal. Previously noted duodenal ulcer has completely healed. The scope at this time was withdrawn to the stomach, adequately insufflated with air, and upon careful examination, mucosa of the antrum, body, cardia and the fundus is diffuse gastritis and biopsies were done from the antrum. The previously noted gastric antral ulcer has completely healed.. The scope was then withdrawn into the esophagus. The GE junction was located at 41 cm from the incisors. The esophagus appeared normal. There were no erosions or ulcerations seen and the patient tolerated the procedure well. IMPRESSION: 1. Healed gastric ulcer. 2. Diffuse gastritis involving the entire stomach. RECOMMENDATIONS: The findings of this examination were discussed with the patient as well as his family. He will continue with Protonix 40 mg daily and follow antireflux measures..
[2021-02-06 07:27] VITALS: PULSE 64
[2021-02-06 08:06] VITALS: BP 120/57; RESP 16
== END 2021-02-06 08:25 | disposition home or self-care (01) ==
LOC: ORWHC2ENDO 06:26
PROVIDERS: ATTEND Internal Medicine Gastroenterology
DX: K29.70 Gastritis, unspecified, without bleeding (principal); K31.9 Disease of stomach and duodenum, unspecified; Z87.11 Personal history of peptic ulcer disease; Z79.899 Other long term (current) drug therapy; I25.2 Old myocardial infarction; I10 Essential (primary) hypertension; E78.5 Hyperlipidemia, unspecified; J44.9 Chronic obstructive pulmonary disease, unspecified; Z87.891 Personal history of nicotine dependence; I69.998 Other sequelae following unspecified cerebrovascular disease; Z79.4 Long term (current) use of insulin; Z79.51 Long term (current) use of inhaled steroids
CPT/HCPCS: 43239; 88305; J2001; J2704

== ENCOUNTER 2021-02-11 07:57 | Day surgery (SDC) | payer OTHER ==
[2021-02-10 08:33] VITALS: BMI 36.1
[~2021-02-11 07:57] MED LIST changes: -ALPRAZolam 0.5 MG TAB PO PRN; +ASPIRIN 325 MG TAB PO PRN; -ASPIRIN 325 MG TAB PO STA; -ATORVASTATIN 80 MG TAB PO STA; -HEPARIN SODIUM,PORCINE 10,000 UNIT in SODIUM CHLORIDE 0.9% 1,000 ML IRRIGATION PRN; -HEPARIN SODIUM,PORCINE 2,500 UNIT in SODIUM CHLORIDE 0.9% 250 ML IRRIGATION PRN; -NITROGLYCERIN SL TABS 0.4 MG TAB SUBLINGUAL PRN
[2021-02-11 08:15] VITALS: RESP 18; TEMP 98.6
[2021-02-11 08:22] LABS: Glucose,Whole Blood 131 mg/dL (75-99)
[2021-02-11] MEDS ORDERED: SODIUM CHLORIDE 0.9% 1,000 ML IV ONE (08:24)
[2021-02-11 08:28] LABS: Anisocytosis Slight; Basophils % (A) 1 %; Eosinophils # (A) 0.1 k/uL (0-0.7); Eosinophils % (A) 3 %; HCT 37.4 % (39.0-53.0); Hypochromasia Slight; Lymphocytes # (A) 1.7 k/uL (1.0-4.8); Lymphocytes % (A) 37 %; MCH 32.3 pg (25.0-35.0); MCHC 31.4 g/dL (31.0-37.0); Macrocytosis Moderate; Mean Platelet Volume 8.2; Monocytes # (A) 0.2 k/uL (0-1.0); Monocytes % (A) 5 %; Neutrophils # (A) 2.4 k/uL (1.3-7.7); Neutrophils % (A) 51 %; Platelet Count 108 k/uL (150-450); RBC 3.63 m/uL (4.30-5.90); RDW 16.7 % (11.5-15.5); WBC 4.6 k/uL (3.8-10.6)
[2021-02-11 08:35] LABS: HGB 11.7 gm/dL (13.0-17.5); MCV 102.9 fL (80.0-100.0)
[2021-02-11 08:52] LABS: Calcium 9.4 mg/dL (8.4-10.2); Potassium 4.6 mmol/L (3.5-5.1)
[2021-02-11] MEDS ORDERED: LIDOCAINE 1% INJ 10MG/ML (20 ML MDV) ONE (09:12)
[2021-02-11] MEDS ORDERED: fentaNYL (PF) 50 MCG/ML 2 ML AMP ONE (09:33)
[2021-02-11] MEDS ORDERED: LIDOCAINE 1% INJ 10MG/ML (20 ML MDV) SQ ONE (09:35)
[2021-02-11] MEDS ORDERED: MIDAZOLAM 2 MG/2 ML VIAL IV ONE (09:37)
[2021-02-11] MEDS ORDERED: fentaNYL (PF) 50 MCG/ML 2 ML AMP IV ONE (09:37)
[2021-02-11] MEDS ORDERED: IOPAMIDOL-250 100ML BTL INTRAARTER ONE (09:58)
[2021-02-11] MEDS ORDERED: SODIUM CHLORIDE 0.9% 1,000 ML IV SCH (10:00)
--- NOTE | 2021-02-11 10:47 | AN ---
ANGIOGRAPHY REPORT DATE OF SERVICE: 02/11/2021 PERFORMING PHYSICIAN: Anthony Mercer M.D. PROCEDURE PERFORMED: 1. Abdominal aortogram. 2. Bilateral lower extremity runoff. INDICATION: Bilateral lower extremity ulcers. APPROACH: Right common femoral artery. COMPLICATIONS: None. LEVEL OF SEDATION: Moderate, with sedation length of 28 minutes. PROCEDURE DESCRIPTION: After obtaining informed consent, the patient was brought to the cardiac medical laboratory technologist. The right common femoral artery was cannulated using micropuncture technique under ultrasound guidance. The micropuncture wire passed easily. Then I placed a 5-Japanese sheath at the right common femoral artery. I did an abdominal aortogram and bilateral lower extremity runoff. I did select the left common femoral artery using a 5-Japanese RIM catheter and 0.035 stiff Glidewire. The procedure was completed without any complication. SELECTIVE PERIPHERAL ANGIOGRAM: 1. The aorta appeared to have mild disease only and seemed to be also mildly aneurysmal. 2. Common iliac arteries. The right and left common iliac arteries appeared to have mild disease only. 3. Internal iliac arteries. Both appeared to be patent. 4. External iliac arteries appeared to have mild disease only. 5. Common femoral arteries appeared to have mild disease only. 6. Profundae. Both are patent. 7. SFA. Both appeared to have mild disease only. 8. Popliteals. Both appeared to have mild disease only. 9. Below the knee. There is 3-vessel runoff below the knee bilaterally. CONCLUSION: 1. Mild aortoiliac disease. 2. Mild femoral-popliteal disease. 3. Three-vessel runoff below the knee bilaterally. POSTPROCEDURE MANAGEMENT: 1. Given the above anatomy and the absence of any high-grade disease, I recommended maximized medical treatment and continued aspirin and high-intensity statin. 2. Follow up with Dr. Dong in the office. MMODL / IJN: [id number] /
--- NOTE | 2021-02-11 12:08 | IR ---
Fluoroscopy HISTORY: Pain in leg 3.5 minutes fluoroscopy time supplied to the referring clinician. 130 intraoperative C-arm images do cument the procedure. See dictated report from cardiology.
[2021-02-11 15:08] VITALS: BP 117/56; PULSE 68
== END 2021-02-11 17:11 | disposition home or self-care (01) ==
LOC: CATHCVL 07:57
PROVIDERS: ATTEND Internal Medicine Interventional Cardiology
DX: L97.929 Non-pressure chronic ulcer of unspecified part of left lower leg with unspecified severity (principal); L97.919 Non-pressure chronic ulcer of unspecified part of right lower leg with unspecified severity; E11.9 Type 2 diabetes mellitus without complications; I10 Essential (primary) hypertension; E78.5 Hyperlipidemia, unspecified; F17.210 Nicotine dependence, cigarettes, uncomplicated
CPT/HCPCS: 36200; 75625; 75716; 76937; 80048; 85025; C1769 ×5; C1894; J2250; J2001; J3010; Q9966

== ENCOUNTER → 2021-07-03 | Day surgery (SDC) | payer OTHER ==
[2021-06-30 15:53] VITALS: BMI 34.4
[~2021-07-03] MED LIST changes: -ALPRAZolam 0.25 MG TAB PO PRN; -ASPIRIN 325 MG TAB PO PRN; +LACTATED RINGERS 1,000 ML IV SCH; +LIDOCAINE 1% (10MG/ML) FOR IV START INTRADERMA PRN; +LIDOCAINE 1% INJ 10MG/ML (20 ML MDV) ONE; +PROPOFOL 10 MG/ML 20 ML VIAL IV ONE; -SODIUM CHLORIDE 0.9% 1,000 ML in EMPTY BAG 1 BAG IV ONE
[2021-07-03 08:44] VITALS: RESP 16; TEMP 97.4
--- NOTE | 2021-07-03 08:56 | P.GSHP ---
History of Present Illness H&P Date: 07/03/21 Chief Complaint: GI bleed Assessment 60-year-old male presents today for colonoscopy. Patient has had issues with rectal bleeding. Also had black tarry stools. Past Medical History Past Medical History: COPD, CVA/TIA, Diabetes Mellitus, Hyperlipidemia, Hypertension, Memory Impairment, Myocardial Infarction ([place]), Prostate Disorder, Seizure Disorder, Skin Disorder Additional Past Medical History / Comment(s): duodenal ulcer, pain and numbness cyrus legs and feet,pain pump in back, anemia. TIA X3, HEPATITIS C PAST HISTORY, LAST SEIZURE 2012,hiatal hernia Last Myocardial Infarction Date:: POSSIBLE CT 2012 History of Any Multi-Drug Resistant Organisms: None Reported Past Surgical History: Appendectomy, Back Surgery, Heart Catheterization, Orthopedic Surgery Additional Past Surgical History / Comment(s): titanium lyn in lt leg, skin graph to rt 1st and middle finger, lt eardum replaced, cyrus. foot surgery to arch, cataract surgery bilateral with implant,skin graft left leg Past Anesthesia/Blood Transfusion Reactions: No Reported Reaction Smoking Status: Current every day smoker - Past Family History Mother Family Medical History: Diabetes Mellitus, Pulmonary Embolus Father Additional Family Medical History / Comment(s): Father had pain problems/hallucinations. He committed suicide. Medications and Allergies Home Medications Medication Instructions Recorded Confirmed Type Aspirin [Adult Low Dose Aspirin EC] 81 mg PO 1800 08/28/15 06/30/21 History Folic Acid 1 mg PO W/SUPPER 08/28/15 06/30/21 History Liraglutide [Victoza 2-Selvin] 1.8 mg SQ DAILY 07/19/18 06/30/21 History Tamsulosin [Flomax] 0.4 mg PO BID 10/20/18 06/30/21 History Triamterene-Hctz 37.5-25Mg 1 tab PO DAILY 04/04/20 06/30/21 History [Maxzide 37.5-25] Valsartan [Diovan] 160 mg PO BID 04/04/20 06/30/21 History Albuterol Sulfate [Proair Hfa] 2 puff INHALATION QID PRN 10/22/20 06/30/21 History Atorvastatin [Lipitor] 80 mg PO DAILY 10/22/20 06/30/21 History Budesonide-Formot 160-4.5 Mcg 2 puff INHALATION RT-BID 10/22/20 06/30/21 History [Symbicort 160-4.5 Mcg Inhaler] Glimepiride [Amaryl] 4 mg PO BID-W/MEALS 10/22/20 06/30/21 History Insulin Glargine,Hum.rec.anlog 60 unit SQ QAM 10/22/20 06/30/21 History [Lantus Solostar Pen] Lacosamide [Vimpat] 200 mg PO BID 10/22/20 06/30/21 History Multivitamin [Multivitamins Adult 1 tab PO DAILY 10/22/20 06/30/21 History Gummies] Pregabalin [Lyrica] 100 mg PO BID 10/22/20 06/30/21 History Thiamine [Vitamin B-1] 100 mg PO W/SUPPER 10/22/20 06/30/21 History Ferrous Sulfate [Iron (65 MG 325 mg PO BID 12/10/20 06/30/21 History Elemental)] Escitalopram [Lexapro] 10 mg PO HS 02/05/21 06/30/21 History Hydromorphone Pain Pump 1 dose INTRATHECA CONTINUOUS 02/05/21 06/30/21 History hydroCHLOROthiazide 25 mg PO DAILY 02/05/21 06/30/21 History Clopidogrel [Plavix] 75 mg PO DAILY 06/30/21 06/30/21 History HYDROcodone/APAP 10-325MG [Fowler 1 tab PO BID 06/30/21 06/30/21 History 10-325] Meloxicam 15 mg PO DAILY 06/30/21 06/30/21 History Pantoprazole Sodium [Protonix] 40 mg PO 1800 06/30/21 06/30/21 History Primidone [Mysoline] 50 mg PO QAM 06/30/21 06/30/21 History rOPINIRole HCL [Requip] 0.5 mg PO BID 06/30/21 06/30/21 History Allergies Allergy/AdvReac Type Severity Reaction Status Date / Time morphine AdvReac Nausea & Verified 07/03/21 08:22 Vomiting Surgical - Exam Vital Signs Temp Pulse Resp BP Pulse Ox 97.4 F L 70 16 182/82 97 07/03/21 08:24 07/03/21 08:24 07/03/21 08:24 07/03/21 08:24 07/03/21 08:24 - General well developed, well nourished, no distress - Eyes PERRL - ENT normal pinna - Neck no masses - Respiratory normal expansion - Cardiovascular Rhythm: regular - Abdomen Abdomen: soft, non tender Assessment and Plan Assessment: GI bleed. We'll perform colonoscopy.
--- NOTE | 2021-07-03 09:19 | P.OP ---
Date of Procedure: 07/03/21 Preoperative Diagnosis: GI bleed Postoperative Diagnosis: Mild antral gastritis Normal colon Internal hemorrhoids Procedure(s) Performed: EGD Colonoscopy Anesthesia: MAC Surgeon: Prosper Santiago Pathology: other (Antrum) Condition: stable Disposition: PACU Description of Procedure: Patient's placed on the endoscopy table in the lateral position. He received IV sedation. The gastroscope placed oropharynx passed in the esophagus and stomach. Scope was then placed through the pylorus. First and second portion of duodenum appeared normal. Scope summer back the antrum this was mildly inflamed. A biopsies performed. Scope was then retroflexed and the remainder of the stomach appeared normal. There is no blood seen stomach. The GE junction was at 40 cm. The distal esophagusAppeared Normal. Proximal esophagus appeared over the scope withdrawn for patient. Next digital rectal exam was performed. This revealed no mild internal hemorrhoids. The prostate was symmetric without nodules. Flexible colonoscope was then placed patient anus passed throughout the entire colon. The ileocecal valve was visualized. The cecum, ascending and transverse colon appeared normal. The descending and sigmoid colon appeared normal. Was placed the rectum this appeared normal. Scope withdrawn and there were a few internal hemorrhoids noted. Scope withdrawn for patient. There is no evidence of any acute GI bleed. His presumed patient may have had GI bleed due to internal hemorrhoids.
[2021-07-03 09:47] LABS: Glucose,Whole Blood 104 mg/dL (75-99)
[2021-07-03 10:01] VITALS: BP 146/75; PULSE 60
== END | disposition home or self-care (01) ==
LOC: ORWHC2ENDO 07:59
PROVIDERS: ATTEND Surgery
DX: K29.51 Unspecified chronic gastritis with bleeding (principal); K64.8 Other hemorrhoids; K92.2 Gastrointestinal hemorrhage, unspecified; E78.5 Hyperlipidemia, unspecified; I10 Essential (primary) hypertension; R41.3 Other amnesia; E11.9 Type 2 diabetes mellitus without complications; K44.9 Diaphragmatic hernia without obstruction or gangrene; D64.9 Anemia, unspecified; Z87.11 Personal history of peptic ulcer disease; J44.9 Chronic obstructive pulmonary disease, unspecified; G40.909 Epilepsy, unspecified, not intractable, without status epilepticus; Z86.73 Personal history of transient ischemic attack (TIA), and cerebral infarction without residual deficits; I25.2 Old myocardial infarction; F17.200 Nicotine dependence, unspecified, uncomplicated; Z96.89 Presence of other specified functional implants; N42.9 Disorder of prostate, unspecified; Z98.890 Other specified postprocedural states; Z98.42 Cataract extraction status, left eye; Z98.41 Cataract extraction status, right eye; Z96.1 Presence of intraocular lens; Z97.2 Presence of dental prosthetic device (complete) (partial); Z83.3 Family history of diabetes mellitus; Z82.49 Family history of ischemic heart disease and other diseases of the circulatory system; Z81.8 Family history of other mental and behavioral disorders; Z79.82 Long term (current) use of aspirin; Z79.4 Long term (current) use of insulin; Z79.84 Long term (current) use of oral hypoglycemic drugs; Z79.02 Long term (current) use of antithrombotics/antiplatelets; Z79.899 Other long term (current) drug therapy; Z88.5 Allergy status to narcotic agent
CPT/HCPCS: 88305; 45378; 43239; J2001; J2704

== ENCOUNTER 2021-11-16 15:27 | Emergency (ER) | payer OTHER ==
[2021-11-16 15:36] VITALS: BP 151/69; PULSE 69; RESP 16; TEMP 98.1
[2021-11-16] MEDS ORDERED: HYDROmorphone 0.5 MG/0.5 ML SYRINGE IVP STA (15:51)
[2021-11-16] MEDS ORDERED: DIPH,PERTUS(ACELL)TETVAC-LF 0.5 ML VIAL IM ONE (15:51)
[2021-11-16 16:00] LABS: Basophils % (A) 1 %; Eosinophils # (A) 0.3 k/uL (0-0.7); Eosinophils % (A) 4 %; HCT 33.8 % (39.0-53.0); HGB 10.6 gm/dL (13.0-17.5); Lymphocytes % (A) 15 %; MCH 32.5 pg (25.0-35.0); MCHC 31.3 g/dL (31.0-37.0); MCV 103.9 fL (80.0-100.0); Macrocytosis Slight; Mean Platelet Volume 8.2; Monocytes # (A) 0.4 k/uL (0-1.0); Monocytes % (A) 6 %; Neutrophils # (A) 4.8 k/uL (1.3-7.7); Neutrophils % (A) 71 %; Platelet Count 112 k/uL (150-450); RBC 3.26 m/uL (4.30-5.90); WBC 6.8 k/uL (3.8-10.6)
[2021-11-16] MEDS ORDERED: TOPICAL SKIN ADHESIVE 1 EACH AMP TOPICAL ONE (16:00)
--- NOTE | 2021-11-16 16:00 | ED ---
General Adult HPI - General Chief complaint: Trauma Stated complaint: Fell off Ladder @1500 Time Seen by Provider: 11/16/21 15:33 Source: patient, family, RN notes reviewed Mode of arrival: wheelchair Limitations: no limitations - History of Present Illness Initial comments: Patient is a pleasant 61-year-old male presenting to the emergency department f ollowing a fall. Incident occurred just prior to arrival. Patient originally thought he was up around 6 feet however after further thinking about it he was on the third step and thinks it was only 3-4 feet. Patient did strike his left forehead. No loss of consciousness. Patient is on Plavix. Patient does complain of discomfort of his left ring finger and left forearm. Also mild discomfort right hip/buttocks region. No neck or back pain. No chest pain or dyspnea. No abdominal pain. - Related Data Home Medications Medication Instructions Recorded Confirmed Aspirin [Adult Low Dose Aspirin EC] 81 mg PO 1800 08/28/15 06/30/21 Folic Acid 1 mg PO W/SUPPER 08/28/15 06/30/21 Liraglutide [Victoza 2-Selvin] 1.8 mg SQ DAILY 07/19/18 06/30/21 Tamsulosin [Flomax] 0.4 mg PO BID 10/20/18 06/30/21 Triamterene-Hctz 37.5-25Mg 1 tab PO DAILY 04/04/20 06/30/21 [Maxzide 37.5-25] Valsartan [Diovan] 160 mg PO BID 04/04/20 06/30/21 Albuterol Sulfate [Proair Hfa] 2 puff INHALATION QID PRN 10/22/20 06/30/21 Atorvastatin [Lipitor] 80 mg PO DAILY 10/22/20 06/30/21 Budesonide-Formot 160-4.5 Mcg 2 puff INHALATION RT-BID 10/22/20 06/30/21 [Symbicort 160-4.5 Mcg Inhaler] Glimepiride [Amaryl] 4 mg PO BID-W/MEALS 10/22/20 06/30/21 Insulin Glargine,Hum.rec.anlog 60 unit SQ QAM 10/22/20 06/30/21 [Lantus Solostar Pen] Lacosamide [Vimpat] 200 mg PO BID 10/22/20 06/30/21 Multivitamin [Multivitamins Adult 1 tab PO DAILY 10/22/20 06/30/21 Gummies] Pregabalin [Lyrica] 100 mg PO BID 10/22/20 06/30/21 Thiamine [Vitamin B-1] 100 mg PO W/SUPPER 10/22/20 06/30/21 Ferrous Sulfate [Iron (65 MG 325 mg PO BID 12/10/20 06/30/21 Elemental)] Escitalopram [Lexapro] 10 mg PO HS 02/05/21 06/30/21 Hydromorphone Pain Pump 1 dose INTRATHECA CONTINUOUS 02/05/21 06/30/21 hydroCHLOROthiazide 25 mg PO DAILY 02/05/21 06/30/21 Clopidogrel [Plavix] 75 mg PO DAILY 06/30/21 06/30/21 HYDROcodone/APAP 10-325MG [[place] 1 tab PO BID 06/30/21 06/30/21 10-325] Meloxicam 15 mg PO DAILY 06/30/21 06/30/21 Pantoprazole Sodium [Protonix] 40 mg PO 1800 06/30/21 06/30/21 Primidone [Mysoline] 50 mg PO QAM 06/30/21 06/30/21 rOPINIRole HCL [Requip] 0.5 mg PO BID 06/30/21 06/30/21 Allergies Allergy/AdvReac Type Severity Reaction Status Date / Time morphine AdvReac Nausea & Verified 11/16/21 15:36 Vomiting Review of Systems ROS Statement: Those systems with pertinent positive or pertinent negative responses have been documented in the HPI. ROS Other: All systems not noted in ROS Statement are negative. Constitutional: Denies: fever Eyes: Denies: eye pain ENT: Denies: ear pain Respiratory: Denies: cough Cardiovascular: Denies: chest pain Endocrine: Denies: fatigue Gastrointestinal: Denies: abdominal pain Genitourinary: Denies: dysuria Musculoskeletal: Denies: back pain Skin: Reports: as per HPI Neurological: Denies: headache, weakness Past Medical History Past Medical History: COPD, CVA/TIA, Diabetes Mellitus, Hyperlipidemia, Hypertension, Memory Impairment, Myocardial Infarction ([place]), Prostate Disorder, Seizure Disorder, Skin Disorder Additional Past Medical History / Comment(s): duodenal ulcer, pain and numbness cyrus legs and feet,pain pump in back, anemia. TIA X3, HEPATITIS C PAST HISTORY, LAST SEIZURE 2012,hiatal hernia Last Myocardial Infarction Date:: POSSIBLE [place] 2012 History of Any Multi-Drug Resistant Organisms: None Reported Past Surgical History: Appendectomy, Back Surgery, Heart Catheterization, Orthopedic Surgery Additional Past Surgical History / Comment(s): titanium lyn in lt leg, skin graph to rt 1st and middle finger, lt eardum replaced, cyrus. foot surgery to arch, cataract surgery bilateral with implant,skin graft left leg Past Anesthesia/Blood Transfusion Reactions: No Reported Reaction Past Psychological History: Anxiety, Depression Smoking Status: Current every day smoker - Past Family History Mother Family Medical History: Diabetes Mellitus, Pulmonary Embolus Father Additional Family Medical History / Comment(s): Father had pain problems/hallucinations. He committed suicide. General Exam Limitations: no limitations General appearance: alert, in no apparent distress Head exam: Present: other (Left eyebrow laceration. Abrasions to the scalp) Eye exam: Present: normal appearance, PERRL, EOMI ENT exam: Present: normal oropharynx Neck exam: Present: normal inspection, tenderness (Minimal tenderness upper to mid cervical spine) Respiratory exam: Present: normal lung sounds bilaterally. Absent: chest wall tenderness Cardiovascular Exam: Present: regular rate, normal rhythm GI/Abdominal exam: Present: soft. Absent: distended, tenderness, guarding, rebound, rigid Extremities exam: Present: tenderness (Moderate tenderness left ring finger DIP. Minimal tenderness left forearm, mid region. Minimal tenderness right gluteal region) Back exam: Present: normal inspection. Absent: tenderness Neurological exam: Present: alert, oriented X3, CN II-XII intact. Absent: motor sensory deficit Psychiatric exam: Present: normal affect, normal mood Skin exam: Present: abrasion (Bilateral extremities), other (Laceration left eyebrow) Course Vital Signs 11/16/21 15:28 Temperature 98.1 F Pulse Rate 69 Respiratory 16 Rate Blood Pressure 151/69 O2 Sat by Pulse 92 L Oximetry EKG Findings - EKG Comments: EKG Findings:: Sinus bradycardia 58. ME 152. Curasol 4. QT 428. QTC 45. Normal axis. Normal QRS. No acute ST change. Procedures - Laceration Laceration #1 Consent Obtained: verbal consent Indication: laceration Site: face Size (cm): 3 Description: linear Depth: simple, single layer Pre-repair: wound explored, irrigated extensively Type of Sutures: other (Skin adhesive) Patient Tolerated Procedure: well, no complications Laceration #2 Consent Obtained: verbal consent Indication: laceration Site: face Size (cm): 1 Description: linear Depth: simple, single layer Pre-repair: wound explored, irrigated extensively Type of Sutures: other (Skin adhesive) Patient Tolerated Procedure: well, no complications - Orthopedic Splinting/Casting Injury #1 Side: left Upper Extremity Injury Location: finger (Finger splint placed) Injury #2 Side: left Upper Extremity Injury Location: short arm (Forearm, left) Upper Extremity Immobilizer: volar splint Medical Decision Making - Medical Decision Making Patient evaluated. Patient family updated. - Lab Data Result diagrams: 11/16/21 15:28 11/16/21 15:28 Lab Results 11/16/21 11/16/21 11/16/21 Range/Units 15:28 15:28 15:28 WBC 6.8 (3.8-10.6) k/uL RBC 3.26 L (4.30-5.90) m/uL Hgb 10.6 L (13.0-17.5) gm/dL Hct 33.8 L (39.0-53.0) % MCV 103.9 H (80.0-100.0) fL MCH 32.5 (25.0-35.0) pg MCHC 31.3 (31.0-37.0) g/dL RDW 13.0 (11.5-15.5) % Plt Count 112 L (150-450) k/uL MPV 8.2 Neutrophils % 71 % Lymphocytes % 15 % Monocytes % 6 % Eosinophils % 4 % Basophils % 1 % Neutrophils # 4.8 (1.3-7.7) k/uL Lymphocytes # 1.0 (1.0-4.8) k/uL Monocytes # 0.4 (0-1.0) k/uL Eosinophils # 0.3 (0-0.7) k/uL Basophils # 0.0 (0-0.2) k/uL Macrocytosis Slight PT 10.4 (9.0-12.0) sec INR 1.0 (<1.2) APTT 23.2 (22.0-30.0) sec Sodium 131 L (137-145) mmol/L Potassium 5.4 H (3.5-5.1) mmol/L Chloride 100 (98-107) mmol/L Carbon Dioxide 25 (22-30) mmol/L Anion Gap 6 mmol/L BUN 33 H (9-20) mg/dL Creatinine 1.35 H (0.66-1.25) mg/dL Est GFR (CKD-EPI)AfAm 66 (>60 ml/min/1.73 sqM) Est GFR (CKD-EPI)NonAf 57 (>60 ml/min/1.73 sqM) Glucose 151 H (74-99) mg/dL Calcium 8.6 (8.4-10.2) mg/dL Total Bilirubin 0.4 (0.2-1.3) mg/dL AST 34 (17-59) U/L ALT 22 (4-49) U/L Alkaline Phosphatase 72 (38-126) U/L Total Protein 7.4 (6.3-8.2) g/dL Albumin 4.2 (3.5-5.0) g/dL Serum Alcohol <10 mg/dL Blood Type Blood Type Recheck Bld Type Recheck Status Antibody Screen Spec Expiration Date 11/16/21 Range/Units 15:28 WBC (3.8-10.6) k/uL RBC (4.30-5.90) m/uL Hgb (13.0-17.5) gm/dL Hct (39.0-53.0) % MCV (80.0-100.0) fL MCH (25.0-35.0) pg MCHC (31.0-37.0) g/dL RDW (11.5-15.5) % Plt Count (150-450) k/uL MPV Neutrophils % % Lymphocytes % % Monocytes % % Eosinophils % % Basophils % % Neutrophils # (1.3-7.7) k/uL Lymphocytes # (1.0-4.8) k/uL Monocytes # (0-1.0) k/uL Eosinophils # (0-0.7) k/uL Basophils # (0-0.2) k/uL Macrocytosis PT (9.0-12.0) sec INR (<1.2) APTT (22.0-30.0) sec Sodium (137-145) mmol/L Potassium (3.5-5.1) mmol/L Chloride (98-107) mmol/L Carbon Dioxide (22-30) mmol/L Anion Gap mmol/L BUN (9-20) mg/dL Creatinine (0.66-1.25) mg/dL Est GFR (CKD-EPI)AfAm (>60 ml/min/1.73 sqM) Est GFR (CKD-EPI)NonAf (>60 ml/min/1.73 sqM) Glucose (74-99) mg/dL Calcium (8.4-10.2) mg/dL Total Bilirubin (0.2-1.3) mg/dL AST (17-59) U/L ALT (4-49) U/L Alkaline Phosphatase (38-126) U/L Total Protein (6.3-8.2) g/dL Albumin (3.5-5.0) g/dL Serum Alcohol mg/dL Blood Type A Positive Blood Type Recheck A Pos Bld Type Recheck Status No Antibody Screen NEGATIVE Spec Expiration Date 11/19/20212327 - Radiology Data Radiology results: report reviewed (Computed tomography scan brain and C-spine shows no acute process), image reviewed (X-ray left forearm concerning for midshaft nondisplaced radius fracture. Left hand x-ray read as no acute process. I do question tiny avulsion near the DIP. Chest and pelvis x-rays show no acute process.) Disposition Clinical Impression: Laceration of left eyebrow, Left radial fracture, Closed fracture of phalanx of ring finger Disposition: HOME SELF-CARE Condition: Stable Instructions (If sedation given, give patient instructions): Fall Prevention (ED), Skin Adhesive Care (ED), Abrasion (ED), Arm Fracture in Adults (ED), Finger Fracture (ED) Additional Instructions: Please do follow-up with orthopedics in the next day or 2 for recheck. You will need further splinting/casting and further care. Please also follow-up to primary care physician in the next day or 2 for recheck. Leave tissue adhesive alone on the left eyebrow. Other abrasions twice daily wash with soap and water, apply antibiotic ointment, and keep bandaged. Return for confusion, weakness, worsening or change in symptoms or other concerns. Hold Plavix for 24 hours. Is patient prescribed a controlled substance at d/c from ED?: No Referrals: Dmitriy Liu MD [Primary Care Provider] - 1-2 days Froy Oviedo DO [Doctor of Osteopathic Medicine] - 1-2 days Time of Disposition: 16:54
[2021-11-16 16:09] LABS: Partial Thromboplastin Time 23.2 sec (22.0-30.0); Prothrombin Time 10.4 sec (9.0-12.0)
--- NOTE | 2021-11-16 16:11 | XR ---
EXAMINATION TYPE: XR hand complete LT DATE OF EXAM: 11/16/2021 COMPARISON: NONE HISTORY: Fall. Pain TECHNIQUE: 3 views FINDINGS: There is minor spurring at the third metacarpal head. Carpal bones are intact. No fracture seen. There is minor spurring at the DIP joints of the digits. No erosions. IMPRESSION: Mild osteoarthritis. No fracture seen.
[2021-11-16 16:12] LABS: ALT 22 U/L (4-49); AST 34 U/L (17-59); African American GFR (CKD) 66 (>60 ml/min/1.73 sqM); Albumin 4.2 g/dL (3.5-5.0); Alcohol <10 mg/dL; Alkaline Phosphatase 72 U/L (38-126); Anion Gap 6 mmol/L; Blood Urea Nitrogen 33 mg/dL (9-20); Calcium 8.6 mg/dL (8.4-10.2); Carbon Dioxide 25 mmol/L (22-30); Chloride 100 mmol/L (98-107); Glucose 151 mg/dL (74-99); Non-African American GFR(CKD) 57 (>60 ml/min/1.73 sqM); Potassium 5.4 mmol/L (3.5-5.1); Sodium 131 mmol/L (137-145); Total Bilirubin 0.4 mg/dL (0.2-1.3); Total Protein 7.4 g/dL (6.3-8.2)
--- NOTE | 2021-11-16 16:12 | XR ---
EXAMINATION TYPE: XR forearm LT DATE OF EXAM: 11/16/2021 COMPARISON: NONE HISTORY: Fall. Pain TECHNIQUE: 2 view FINDINGS: There is hairline midshaft fracture of the radius. The ulna is intact. Elbow joint and wris t joint appear intact. IMPRESSION: Acute nondisplaced fracture of the midshaft of the radius.
--- NOTE | 2021-11-16 16:14 | XR ---
EXAMINATION TYPE: XR chest 1V portable DATE OF EXAM: 11/16/2021 COMPARISON: 04/04/2020 HISTORY: Altered mental status TECHNIQUE: Single view FINDINGS: There is no heart failure or confluent pneumonic infiltrate. Costophrenic angles are clear. IMPRESSION: No active cardiopulmonary disease. There is clearing of minimal atelectasis left lung bas e compared to old exam.
--- NOTE | 2021-11-16 16:16 | XR ---
EXAMINATION TYPE: XR pelvis AP view DATE OF EXAM: 11/16/2021 COMPARISON: NONE HISTORY: Fall from a ladder. Pain TECHNIQUE: 2 views FINDINGS: Pelvic ring is intact. Proximal femurs and hip joints are intact. No fracture seen. Sacroil iac joints are intact. There is device implanted over the left iliac bone. There is previous spine brown rgery. IMPRESSION: No evidence of a pelvic fracture. No hip fracture.
--- NOTE | 2021-11-16 16:25 | CT ---
EXAMINATION TYPE: CT brain misty wo con DATE OF EXAM: 11/16/2021 COMPARISON: 05/07/2020 HISTORY: fell hitting head CT DLP: 1644.9 mGycm Automated exposure control for dose reduction was used. Ventricles have normal size. There is no mass effect nor midline shift. No sign of intracranial hemor rhage. There is a 3.5 cm hypodense area in the right posterior frontal lobe cortex consistent with ol d infarct. The calvarium is intact. Skull base is intact. There is very little pneumatization of left mastoid si nus. The cervical vertebra have normal alignment. There is degenerative disc space narrowing from C3 to C7 . There is spurring of the endplates. There is mild hypertrophic facet arthropathy. No compression fr acture. No subluxation. Sella turcica appears normal. IMPRESSION: Old right posterior frontal lobe cortical infarct. No acute intracranial abnormality. Multilevel cervical spondylotic changes. No fracture. No significant change compared to the old exam.
[2021-11-16] MEDS ORDERED: traMADol 50 MG STARTER PACK 3 TAB BTL PO STA (16:55)
== END 2021-11-16 17:03 | disposition home or self-care (01) ==
LOC: EC 15:27
DX: S62.605A Fracture of unspecified phalanx of left ring finger, initial encounter for closed fracture (principal); S52.302A Unspecified fracture of shaft of left radius, initial encounter for closed fracture; S01.112A Laceration without foreign body of left eyelid and periocular area, initial encounter; J44.9 Chronic obstructive pulmonary disease, unspecified; E11.9 Type 2 diabetes mellitus without complications; E78.5 Hyperlipidemia, unspecified; I10 Essential (primary) hypertension; I25.2 Old myocardial infarction; Z23 Encounter for immunization; F17.200 Nicotine dependence, unspecified, uncomplicated; Z88.5 Allergy status to narcotic agent; W11.XXXA Fall on and from ladder, initial encounter
CPT/HCPCS: 93005; 86900; 86901; 80053; 85025; 85610; 85730; 86850; 72170; 73090; 73130; 71045; 72125; 70450; 90715; 12013; 90471; 96374; 99284; G0480; J1170; 80320

== ENCOUNTER → 2022-02-18 | Outpatient (CLI) | payer OTHER ==
[2022-02-18 14:19] LABS: Chol/HDL Ratio 2.85 Ratio; LDL Cholesterol,Calculated 33.6 mg/dL (0.0-131.0)
== END | disposition home or self-care (01) ==
LOC: LABWHC1 10:10
PROVIDERS: ATTEND Internal Medicine Clinical Cardiac Electrophysiology
DX: E78.5 Hyperlipidemia, unspecified (principal)
CPT/HCPCS: 36415; 80061

== ENCOUNTER 2022-05-20 12:48 | Emergency (ER) | payer OTHER ==
[2022-05-20 13:01] VITALS: RESP 18; TEMP 98
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
[2022-05-20] MEDS ORDERED: TOPICAL SKIN ADHESIVE 1 EACH AMP TOPICAL ONE (15:18)
--- NOTE | 2022-05-20 16:01 | CT ---
EXAMINATION TYPE: CT brain wo con DATE OF EXAM: 05/20/2022 HISTORY: Head injury on plavix CT DLP: 1200.4 mGycm. Automated Exposure Control for Dose Reduction was Utilized. TECHNIQUE: CT scan of the head is performed without contrast. COMPARISON: Prior CT brain November 16, 2021. FINDINGS: There is no acute intracranial hemorrhage or midline shift identified. There is mild diff use ventricular and sulcal prominence consistent with diffuse age-related cerebral atrophy. Old infar ct superior right frontal lobe axial image 58 is redemonstrated. Hypopneumatized bilateral mastoid ai r cells redemonstrated. The calvarium is intact. The globes are intact and the visualized sinuses ar e clear. IMPRESSION: No acute intracranial hemorrhage or midline shift. There is mild diffuse cerebral atrop hy and old high right frontal lobe infarct all redemonstrated. No significant change from prior CT.
[2022-05-20] MEDS ORDERED: DIPH,PERTUS(ACELL)TETVAC-LF 0.5 ML VIAL IM ONE (16:16)
[2022-05-20 16:38] VITALS: BP 140/60; PULSE 75
== END 2022-05-20 16:43 | disposition home or self-care (01) ==
LOC: EC 12:48
DX: S01.112A Laceration without foreign body of left eyelid and periocular area, initial encounter (principal); Z23 Encounter for immunization; J44.9 Chronic obstructive pulmonary disease, unspecified; Z86.73 Personal history of transient ischemic attack (TIA), and cerebral infarction without residual deficits; E11.9 Type 2 diabetes mellitus without complications; I10 Essential (primary) hypertension; E78.5 Hyperlipidemia, unspecified; I25.2 Old myocardial infarction; G40.909 Epilepsy, unspecified, not intractable, without status epilepticus; F41.9 Anxiety disorder, unspecified; F32.A Depression, unspecified; F17.200 Nicotine dependence, unspecified, uncomplicated; Z88.6 Allergy status to analgesic agent; Z79.82 Long term (current) use of aspirin; Z79.4 Long term (current) use of insulin; Z79.899 Other long term (current) drug therapy; W22.8XXA Striking against or struck by other objects, initial encounter
CPT/HCPCS: 12011; 70450; 90471; 90715; 99283

== ENCOUNTER 2022-11-15 18:02 | Emergency (ER) | payer OTHER ==
[2022-11-15 18:14] VITALS: TEMP 99.1
--- NOTE | 2022-11-15 18:53 | ED ---
General Adult HPI - General Chief complaint: Extremity Injury, Upper Stated complaint: left hand lac Time Seen by Provider: 11/15/22 18:26 Source: patient, EMS, RN notes reviewed Mode of arrival: EMS Limitations: no limitations - History of Present Illness Initial comments: 62-year-old male presents to the emergency department following injury of left h and with lawnmower. Patient was brought in by EMS wrapped the patient's hand. He states that he was pushing his riding lawnmower earlier today when he went into the ditch and he tried to move the lawnmower when his hand slipped and got caught under the blade. His second through fourth digits are affected. Patient states that he is allergic to morphine but has no other allergies. Past medical history includes hypertension, hyperlipidemia, diabetes, COPD, CAD. Patient takes aspirin and Plavix. - Related Data Home Medications Medication Instructions Recorded Confirmed Aspirin [Adult Low Dose Aspirin EC] 81 mg PO W/SUPPER 08/28/15 07/25/22 Tamsulosin [Flomax] 0.4 mg PO BID 10/20/18 07/25/22 Triamterene-Hctz 37.5-25Mg 1 tab PO DAILY 04/04/20 07/25/22 [Maxzide 37.5-25] Valsartan [Diovan] 160 mg PO BID 04/04/20 07/25/22 Albuterol Sulfate [Proair Hfa] 2 puff INHALATION RT-QID PRN 10/22/20 07/25/22 Budesonide-Formot 160-4.5 Mcg 2 puff INHALATION RT-BID 10/22/20 07/25/22 [Symbicort 160-4.5 Mcg Inhaler] Glimepiride [Amaryl] 4 mg PO BID-W/MEALS 10/22/20 07/25/22 Insulin Glargine,Hum.rec.anlog 60 unit SQ DAILY 10/22/20 07/25/22 [Lantus Solostar Pen] Lacosamide [Vimpat] 200 mg PO BID 10/22/20 07/25/22 Multivitamin [Multivitamins Adult 1 tab PO DAILY 10/22/20 07/25/22 Gummies] Pregabalin [Lyrica] 100 mg PO BID 10/22/20 07/25/22 Thiamine [Vitamin B-1] 100 mg PO W/SUPPER 10/22/20 07/25/22 Ferrous Sulfate [Iron (65 MG 325 mg PO BID 12/10/20 07/25/22 Elemental)] Escitalopram [Lexapro] 10 mg PO HS 02/05/21 07/25/22 Hydromorphone Pain Pump 1 dose INTRATHECA CONTINUOUS 02/05/21 07/25/22 Clopidogrel [Plavix] 75 mg PO DAILY 06/30/21 07/25/22 HYDROcodone/APAP 10-325MG [Crockett 1 tab PO BID 06/30/21 07/25/22 10-325] Primidone [Mysoline] 50 mg PO DAILY 06/30/21 07/25/22 Dulaglutide [Trulicity] 3 mg SQ MITCHELL 07/23/22 07/25/22 Folic Acid 0.8 mg PO DAILY 07/23/22 07/25/22 Rosuvastatin Calcium [Crestor] 40 mg PO DAILY 07/23/22 07/25/22 metFORMIN HCL ER [Glucophage XR] 1,000 mg PO BID 07/23/22 07/25/22 Previous Rx's Medication Instructions Recorded Amoxic-Pot Clav 875-125Mg 1 tab PO Q12HR 5 Days #10 tab 07/28/22 [Augmentin 875-125] Allergies Allergy/AdvReac Type Severity Reaction Status Date / Time morphine AdvReac Nausea & Verified 11/15/22 18:54 Vomiting Review of Systems ROS Statement: Those systems with pertinent positive or pertinent negative responses have been documented in the HPI. ROS Other: All systems not noted in ROS Statement are negative. Past Medical History Past Medical History: COPD, CVA/TIA, Diabetes Mellitus, Hyperlipidemia, Hypertension, Memory Impairment, Myocardial Infarction ([place]), Prostate Disorder, Seizure Disorder, Skin Disorder Additional Past Medical History / Comment(s): duodenal ulcer, pain and numbness cyrus legs and feet,pain pump in back, anemia. TIA X3, HEPATITIS C PAST HISTORY, LAST SEIZURE 2012,hiatal hernia Last Myocardial Infarction Date:: POSSIBLE [place] 2012 History of Any Multi-Drug Resistant Organisms: None Reported Past Surgical History: Appendectomy, Back Surgery, Heart Catheterization, Orthopedic Surgery Additional Past Surgical History / Comment(s): titanium lyn in lt leg, skin graph to rt 1st and middle finger, lt eardum replaced, cyrus. foot surgery to arch, cataract surgery bilateral with implant,skin graft left leg Past Anesthesia/Blood Transfusion Reactions: No Reported Reaction Past Psychological History: Anxiety, Depression Smoking Status: Former smoker Past Alcohol Use History: None Reported Past Drug Use History: None Reported - Past Family History Mother Family Medical History: Diabetes Mellitus, Pulmonary Embolus Father Additional Family Medical History / Comment(s): Father had pain pro blems/hallucinations. He committed suicide. General Exam Limitations: no limitations General appearance: alert, in no apparent distress Head exam: Present: atraumatic, normocephalic, normal inspection Eye exam: Present: normal appearance, PERRL, EOMI. Absent: scleral icterus, conjunctival injection, periorbital swelling ENT exam: Present: normal exam, mucous membranes moist Neck exam: Present: normal inspection. Absent: tenderness, meningismus, lymphadenopathy Respiratory exam: Present: normal lung sounds bilaterally. Absent: respiratory distress, wheezes, rales, rhonchi, stridor Cardiovascular Exam: Present: regular rate, normal rhythm, normal heart sounds. Absent: systolic murmur, diastolic murmur, rubs, gallop, clicks Extremities exam: Present: other (Lacerations to 2nd-4th distal phalanx of left hand ) Course Vital Signs 11/15/22 11/15/22 11/15/22 18:03 19:14 20:00 Temperature 99.1 F Pulse Rate 74 60 60 Respiratory 18 18 Rate Blood Pressure 168/76 136/65 92/55 O2 Sat by Pulse 95 97 Oximetry 11/15/22 20:46 Temperature Pulse Rate 86 Respiratory 20 Rate Blood Pressure 141/86 O2 Sat by Pulse 98 Oximetry Medical Decision Making - Medical Decision Making Was pt. sent in by a medical professional or institution (, PA, COMMERCIAL BAKER HELPER, urgent care, hospital, or penitentiary...) When possible be specific @ -No Did you speak to anyone other than the patient for history (EMS, parent, family, police, friend...)? What history was obtained from this source @ -EMS Did you review nursing and triage notes (agree or disagree)? Why? @ -I reviewed and agree with nursing and triage notes Were old charts reviewed (outside hosp., previous admission, EMS record, old EKG , old radiological studies, urgent care reports/EKG's, penitentiary records)? Report findings @ -No old charts were reviewed Differential Diagnosis (chest pain, altered mental status, abdominal pain women, abdominal pain men, vaginal bleeding, weakness, fever, dyspnea, syncope, headache, dizziness, GI bleed, back pain, seizure, CVA, palpatations, mental health, musculoskeletal)? @ -Differential Musculoskeletal Muscular strain, contusion, ligament sprain, fracture, arthritis, septic arthritis, bursitis, cellulitis, muscle spasm, nerve compression, DVT, arterial occlusion, herpes zoster, electrolyte abnormality, tumor.... This is not meant to be in all inclusive list EKG interpreted by me (3pts min.). @ -None X-rays interpreted by me (1pt min.). @ -X-rays left hand showed a comminuted, displaced fractures of the distal phalanx of the second through fourth digits with intra-articular extension of the fractures into the distal interphalageal joints. Severe soft tissue swelling with multifocal skin lacerations. CT interpreted by me (1pt min.). @ -None done U/S interpreted by me (1pt. min.). @ -None done What testing was considered but not performed or refused? (CT, X-rays, U/S, labs)? Why? @ -None What meds were considered but not given or refused? Why? @ -None Did you discuss the management of the patient with other professionals (professionals i.e. , PA, COMMERCIAL BAKER HELPER, lab, RT, psych nurse, director social, gift manager, teacher, chief analytics officer, leather case finisher)? Give summary @ -Case was discussed with Dr. Crespo who stated the patient would best be managed by a hand specialist. Management was discussed with Dr. Camp and Dr. Osuna who were accepting of the transfer to [facility] Was smoking cessation discussed for >3mins.? @ -No Was critical care preformed (if so, how long)? @ -No Were there social determinants of health that impacted care today? How? (Homele ssness, low income, unemployed, alcoholism, drug addiction, transportation, low edu. Level, literacy, decrease access to med. care, longterm, rehab)? @ -No Was there de-escalation of care discussed even if they declined (Discuss DNR or withdrawal of care, Hospice)? DNR status @ -No What co-morbidities impacted this encounter? (DM, HTN, Smoking, COPD, CAD, Cancer, CVA, ARF, Chemo, Hep., AIDS, mental health diagnosis, sleep apnea, morbid obesity)? @ -None Was patient admitted / discharged? Hospital course, mention meds given and route, prescriptions, significant lab abnormalities, going to OR and other pertinent info. @ -Transferred. Patient presented to emergency department with chief complaint of left hand second- fourth digit injury following getting his hand in the blade of the lawnmower. Patient reports sensation to his distal digits. The third digit injury is about 90% circumferential, fourth digit about 70%. Patient was given a dose of IV Ancef 2g within 1 hour of patients arrival. X-ray of the left hand was obtained which showed comminuted displaced fractures of the distal phalanx of the second through fourth digits with intra-articular extension into the distal interphalangeal joints. Patient was given 0.5mg of dilaudid. CBC was obtained Hemoglobin 10.7, hematocrit 31.2; this is consistent with patient's prior blood count. This case was discussed with Dr. Crespo who states that the case would be best managed by a hand specialist. Case was also discussed with Dr. Camp and Dr. Osuna who are accepting of the transfer to [facility]. Irrigation was performed and the fingers were dressed with nonstick dressing and gauze. Patient given 1L NS. Undiagnosed new problem with uncertain prognosis? @ -No Drug Therapy requiring intensive monitoring for toxicity (Heparin, Nitro, Insulin, Cardizem)? @ -No Were any procedures done? @ -No Diagnosis/symptom? @ -Multi finger laceration, partial amputation Acute, or Chronic, or Acute on Chronic? @ -acute Uncomplicated (without systemic symptoms) or Complicated (systemic symptoms)? @ -uncomplicated Side effects of treatment? @ -No Exacerbation, Progression, or Severe Exacerbation? @ -No Poses a threat to life or bodily function? How? (Chest pain, [place], [place], pneumonia, PE, COPD, DKA, ARF, appy, cholecystitis, CVA, Diverticulitis, Homicidal, Suicidal, threat to staff... and all critical care pts) @ -No - Lab Data Result diagrams: 11/15/22 19:22 11/15/22 19:22 Lab Results 11/15/22 11/15/22 11/15/22 Range/Units 19:22 19:22 19:22 WBC 3.4 L (3.8-10.6) k/uL RBC 3.20 L (4.30-5.90) m/uL Hgb 10.7 L (13.0-17.5) gm/dL Hct 31.2 L (39.0-53.0) % MCV 97.4 (80.0-100.0) fL MCH 33.3 (25.0-35.0) pg MCHC 34.2 (31.0-37.0) g/dL RDW 14.0 (11.5-15.5) % Plt Count 79 L (150-450) k/uL MPV 7.9 Neutrophils % 72 % Lymphocytes % 15 % Monocytes % 9 % Eosinophils % 1 % Basophils % 0 % Neutrophils # 2.4 (1.3-7.7) k/uL Lymphocytes # 0.5 L (1.0-4.8) k/uL Monocytes # 0.3 (0-1.0) k/uL Eosinophils # 0.0 (0-0.7) k/uL Basophils # 0.0 (0-0.2) k/uL PT 10.6 (9.0-12.0) sec INR 1.0 (<1.2) APTT 22.7 (22.0-30.0) sec Sodium 135 L (137-145) mmol/L Potassium 4.6 (3.5-5.1) mmol/L Chloride 100 (98-107) mmol/L Carbon Dioxide 24 (22-30) mmol/L Anion Gap 11 mmol/L BUN 43 H (9-20) mg/dL Creatinine 1.13 (0.66-1.25) mg/dL Est GFR (CKD-EPI)AfAm 81 (>60 ml/min/1.73 sqM) Est GFR (CKD-EPI)NonAf 70 (>60 ml/min/1.73 sqM) Glucose 147 H (74-99) mg/dL Calcium 7.8 L (8.4-10.2) mg/dL Total Bilirubin 0.7 (0.2-1.3) mg/dL AST 73 H (17-59) U/L ALT 54 H (4-49) U/L Alkaline Phosphatase 51 (38-126) U/L Total Protein 7.0 (6.3-8.2) g/dL Albumin 3.5 (3.5-5.0) g/dL Disposition Clinical Impression: Partial traumatic amputation of left middle finger through phalanx Disposition: OTHER INSTITUTION NOT DEFINED Condition: Stable Is patient prescribed a controlled substance at d/c from ED?: No Referrals: Sharyn Whitlock DO [Primary Care Provider] - 1-2 days - Out of Hospital Transfer - Req. Specs Out of Hospital Transfer - Requested Specifics: Other [facility] ([facility])
--- NOTE | 2022-11-15 18:58 | XR ---
EXAMINATION TYPE: XR hand complete LT DATE OF EXAM: 11/15/2022 6:36 PM INDICATION: Patient age:Male; 62 years old; Reason for study: partial amputation to 3rd 4th finger distal digits; [facility]. COMPARISON: Left forearm radiographs 11/16/2021, left hand radiographs 11/16/2021 TECHNIQUE: Frontal, lateral and oblique views of the left hand were obtained. FINDINGS: Comminuted, displaced fractures involving the distal phalanx of the second-fourth metacarpals. There is intra-articular extension of the fractures into the distal interphalangeal joints. Severe soft tis anna swelling with multifocal skin lacerations involving these digits. Bony fragments are seen within the laceration beds. Degenerative changes are noted in the distal radial ulnar, radiocarpal and intra carpal joints. No radiopaque foreign bodies appreciated. The thumb and fifth digit are intact. IMPRESSION: 1. Complex comminuted fractures involving the second through fourth distal phalanxes with associated soft tissue injury and swelling. Consistent with provided history of trauma. No radiopaque foreign sonia dies. 2. Multifocal osteoarthritis.
[2022-11-15] MEDS ORDERED: HYDROmorphone 0.5 MG/0.5 ML SYRINGE IVP STA (19:09)
[2022-11-15 19:34] LABS: Basophils % (A) 0 %; Eosinophils % (A) 1 %; HCT 31.2 % (39.0-53.0); HGB 10.7 gm/dL (13.0-17.5); Lymphocytes # (A) 0.5 k/uL (1.0-4.8); Lymphocytes % (A) 15 %; MCH 33.3 pg (25.0-35.0); MCHC 34.2 g/dL (31.0-37.0); MCV 97.4 fL (80.0-100.0); Mean Platelet Volume 7.9; Monocytes # (A) 0.3 k/uL (0-1.0); Monocytes % (A) 9 %; Neutrophils # (A) 2.4 k/uL (1.3-7.7); Neutrophils % (A) 72 %; Platelet Count 79 k/uL (150-450); WBC 3.4 k/uL (3.8-10.6)
[2022-11-15 19:43] LABS: ALT 54 U/L (4-49); AST 73 U/L (17-59); African American GFR (CKD) 81 (>60 ml/min/1.73 sqM); Albumin 3.5 g/dL (3.5-5.0); Alkaline Phosphatase 51 U/L (38-126); Anion Gap 11 mmol/L; Blood Urea Nitrogen 43 mg/dL (9-20); Calcium 7.8 mg/dL (8.4-10.2); Carbon Dioxide 24 mmol/L (22-30); Chloride 100 mmol/L (98-107); Glucose 147 mg/dL (74-99); Non-African American GFR(CKD) 70 (>60 ml/min/1.73 sqM); Potassium 4.6 mmol/L (3.5-5.1); Sodium 135 mmol/L (137-145); Total Bilirubin 0.7 mg/dL (0.2-1.3)
[2022-11-15 19:48] LABS: Partial Thromboplastin Time 22.7 sec (22.0-30.0); Prothrombin Time 10.6 sec (9.0-12.0)
[2022-11-15] MEDS ORDERED: SODIUM CHLORIDE 0.9% 1,000 ML IV ONE (20:11)
[2022-11-15 20:47] VITALS: BP 141/86; PULSE 86; RESP 20
== END 2022-11-15 20:57 | disposition other institution (70) ==
LOC: EC 18:02
DX: S68.123A Partial traumatic metacarpophalangeal amputation of left middle finger, initial encounter (principal); J44.9 Chronic obstructive pulmonary disease, unspecified; E11.9 Type 2 diabetes mellitus without complications; E78.5 Hyperlipidemia, unspecified; I10 Essential (primary) hypertension; I25.2 Old myocardial infarction; Z86.73 Personal history of transient ischemic attack (TIA), and cerebral infarction without residual deficits; F41.9 Anxiety disorder, unspecified; F32.A Depression, unspecified; Z87.891 Personal history of nicotine dependence; Z88.5 Allergy status to narcotic agent; Z79.51 Long term (current) use of inhaled steroids; Z79.4 Long term (current) use of insulin; Z79.82 Long term (current) use of aspirin; Z79.84 Long term (current) use of oral hypoglycemic drugs; Z79.899 Other long term (current) drug therapy; W28.XXXA Contact with powered lawn mower, initial encounter
CPT/HCPCS: 36415; 80053; 85025; 85610; 85730; 73130; 99285; 96365; 96375; 96361; J0690; J1170

== ENCOUNTER 2022-11-16 21:49 | Emergency (ER) | payer OTHER ==
[2022-11-16 22:07] VITALS: TEMP 98.1
[2022-11-16] MEDS ORDERED: TRANEXAMIC ACID 2,000 MG in SODIUM CHLORIDE 0.9% 100 ML IRRIGATION ONE (23:30)
[2022-11-16] MEDS ORDERED: HYDROmorphone 1 MG/ML 1 ML SYRINGE IM STA (23:31)
[2022-11-17] MEDS ORDERED: IBUPROFEN 800 MG TAB PO STA (00:40)
[2022-11-17] MEDS ORDERED: CEPHALEXIN 500 MG CAP PO STA (00:41)
--- NOTE | 2022-11-17 00:53 | ED ---
Wound/Laceration HPI - General Chief Complaint: Wound/Laceration Stated Complaint: LEFT HAND INJURY Time Seen by Provider: 11/16/22 23:19 Source: patient, family Mode of arrival: wheelchair Limitations: no limitations - History of Present Illness Initial Comments: Patient is 62-year-old male who presents to the emergency department for bleeding from wound. Patient stuck his left hand in lawnmower yesterday sustaining crush injury of the distal second through fourth digits. Patient was evaluated in the emergency department and transferred to [facility]. Patient states they sutured his fingers. He has splint over his hand and arm. Today he noticed blood on the splint. He is on Plavix. He is still in a lot of pain he was told to take his own prescription of Califon. Patient was referred to orthopedics nurse for further management. He has not called and had to make an appointment. - Related Data Home Medications Medication Instructions Recorded Confirmed Aspirin [Adult Low Dose Aspirin EC] 81 mg PO W/SUPPER 08/28/15 07/25/22 Tamsulosin [Flomax] 0.4 mg PO BID 10/20/18 07/25/22 Triamterene-Hctz 37.5-25Mg 1 tab PO DAILY 04/04/20 07/25/22 [Maxzide 37.5-25] Valsartan [Diovan] 160 mg PO BID 04/04/20 07/25/22 Albuterol Sulfate [Proair Hfa] 2 puff INHALATION RT-QID PRN 10/22/20 07/25/22 Budesonide-Formot 160-4.5 Mcg 2 puff INHALATION RT-BID 10/22/20 07/25/22 [Symbicort 160-4.5 Mcg Inhaler] Glimepiride [Amaryl] 4 mg PO BID-W/MEALS 10/22/20 07/25/22 Insulin Glargine,Hum.rec.anlog 60 unit SQ DAILY 10/22/20 07/25/22 [Lantus Solostar Pen] Lacosamide [Vimpat] 200 mg PO BID 10/22/20 07/25/22 Multivitamin [Multivitamins Adult 1 tab PO DAILY 10/22/20 07/25/22 Gummies] Pregabalin [Lyrica] 100 mg PO BID 10/22/20 07/25/22 Thiamine [Vitamin B-1] 100 mg PO W/SUPPER 10/22/20 07/25/22 Ferrous Sulfate [Iron (65 MG 325 mg PO BID 12/10/20 07/25/22 Elemental)] Escitalopram [Lexapro] 10 mg PO HS 02/05/21 07/25/22 Hydromorphone Pain Pump 1 dose INTRATHECA CONTINUOUS 02/05/21 07/25/22 Clopidogrel [Plavix] 75 mg PO DAILY 06/30/21 07/25/22 HYDROcodone/APAP 10-325MG [Califon 1 tab PO BID 06/30/21 07/25/22 10-325] Primidone [Mysoline] 50 mg PO DAILY 06/30/21 07/25/22 Dulaglutide [Trulicity] 3 mg SQ MITCHELL 07/23/22 07/25/22 Folic Acid 0.8 mg PO DAILY 07/23/22 07/25/22 Rosuvastatin Calcium [Crestor] 40 mg PO DAILY 07/23/22 07/25/22 metFORMIN HCL ER [Glucophage XR] 1,000 mg PO BID 07/23/22 07/25/22 Previous Rx's Medication Instructions Recorded Amoxic-Pot Clav 875-125Mg 1 tab PO Q12HR 5 Days #10 tab 07/28/22 [Augmentin 875-125] Cephalexin [Keflex] 500 mg PO Q6HR #56 cap 11/17/22 Ibuprofen [Motrin] 800 mg PO Q8HR PRN #30 tab 11/17/22 Allergies Allergy/AdvReac Type Severity Reaction Status Date / Time morphine AdvReac Nausea & Verified 11/15/22 18:54 Vomiting Review of Systems ROS Statement: Those systems with pertinent positive or pertinent negative responses have been documented in the HPI. ROS Other: All systems not noted in ROS Statement are negative. Past Medical History Past Medical History: COPD, CVA/TIA, Diabetes Mellitus, Hyperlipidemia, Hypertension, Memory Impairment, Myocardial Infarction ([place]), Prostate Disorder, Seizure Disorder, Skin Disorder Additional Past Medical History / Comment(s): duodenal ulcer, pain and numbness cyrus legs and feet,pain pump in back, anemia. TIA X3, HEPATITIS C PAST HISTORY, LAST SEIZURE 2012,hiatal hernia Last Myocardial Infarction Date:: POSSIBLE [place] 2012 History of Any Multi-Drug Resistant Organisms: None Reported Past Surgical History: Appendectomy, Back Surgery, Heart Catheterization, Orthopedic Surgery Additional Past Surgical History / Comment(s): titanium lyn in lt leg, skin graph to rt 1st and middle finger, lt eardum replaced, cyrus. foot surgery to arch, cataract surgery bilateral with implant,skin graft left leg Past Anesthesia/Blood Transfusion Reactions: No Reported Reaction Past Psychological History: Anxiety, Depression Smoking Status: Former smoker Past Alcohol Use History: None Reported Past Drug Use History: None Reported - Past Family History Mother Family Medical History: Diabetes Mellitus, Pulmonary Embolus Father Additional Family Medical History / Comment(s): Father had pain problems/hallucinations. He committed suicide. General Exam Limitations: no limitations General appearance: alert, in no apparent distress Head exam: Present: atraumatic, normocephalic, normal inspection Respiratory exam: Present: normal lung sounds bilaterally. Absent: respiratory distress, wheezes, rales, rhonchi, stridor Cardiovascular Exam: Present: regular rate, normal rhythm, normal heart sounds. Absent: systolic murmur, diastolic murmur, rubs, gallop, clicks Extremities exam: Present: other (digits 3-5 sutured distally. Minimal slow bleeding from ring finger.involved fingers are warm. Ring finger does have some white non viable appearing tissue. Range of motion limited due to pain and swelling.) Course Vital Signs 11/16/22 11/17/22 22:04 01:19 Temperature 98.1 F Pulse Rate 63 62 Respiratory 16 18 Rate Blood Pressure 130/58 166/66 O2 Sat by Pulse 92 L 100 Oximetry Medical Decision Making - Medical Decision Making Was pt. sent in by a medical professional or institution (, PA, ENRICHMENT ASSISTANT, urgent care, hospital, or jail...) When possible be specific @ -No Did you speak to anyone other than the patient for history (EMS, parent, family, police, friend...)? What history was obtained from this source @ -No Did you review nursing and triage notes (agree or disagree)? Why? @ -I reviewed and agree with nursing and triage notes Were old charts reviewed (outside hosp., previous admission, EMS record, old EKG, old radiological studies, urgent care reports/EKG's, jail records)? Report findings @ -No old charts were reviewed Differential Diagnosis (chest pain, altered mental status, abdominal pain women, abdominal pain men, vaginal bleeding, weakness, fever, dyspnea, syncope, headache, dizziness, GI bleed, back pain, seizure, CVA, palpatations, mental health)? @ -not applicable EKG interpreted by me (3pts min.). @ -As above X-rays interpreted by me (1pt min.). @ -None done CT interpreted by me (1pt min.). @ -None done] U/S interpreted by me (1pt. min.). @ -[None done] What testing was considered but not performed or refused? (CT, X-rays, U/S, labs)? Why? @ -[None] What meds were considered but not given or refused? Why? @ -[None] Did you discuss the management of the patient with other professionals (professionals i.e. , PA, ENRICHMENT ASSISTANT, lab, RT, psych nurse, social media intern, neurology tech, teacher, corrections officer, top case assembler)? Give summary @ -[No] Was smoking cessation discussed for >3mins.? @ -[No] Was critical care preformed (if so, how long)? @ -[No] Were there social determinants of health that impacted care today? How? (Homelessness, low income, unemployed, alcoholism, drug addiction, transportation, low edu. Level, literacy, decrease access to med. care, care home, rehab)? @ -[No] Was there de-escalation of care discussed even if they declined (Discuss DNR or withdrawal of care, Hospice)? DNR status @ -[No] What co-morbidities impacted this encounter? (DM, HTN, Smoking, COPD, CAD, Cancer, CVA, ARF, Chemo, Hep., AIDS, mental health diagnosis, sleep apnea, morbid obesity)? @ -[None] Was patient admitted / discharged? Hospital course, mention meds given and route, prescriptions, significant lab abnormalities, going to OR and other pertinent info. @ -Discharged. Patient has mild slow bleeding from ring finger. It was wrapped in TXA soaked gauze. New splint applied. Pain controlled. Patient will be discharged with Motrin. He'll alternate Motrin and Califon. He will also be discharged with Keflex as he was never given antibiotics. I strongly encouraged she follow-up with orthopedics nurse. He verbalizes understanding. Undiagnosed new problem with uncertain prognosis? @ -[No] Drug Therapy requiring intensive monitoring for toxicity (Heparin, Nitro, Insulin, Cardizem)? @ -[No] Were any procedures done? @ -[No] Diagnosis/symptom? @ -bleeding from wound, finger pain Acute, or Chronic, or Acute on Chronic? @ -acute Uncomplicated (without systemic symptoms) or Complicated (systemic symptoms)? @ -uncomplicated Side effects of treatment? @ -[No] Exacerbation, Progression, or Severe Exacerbation? @ -[No] Poses a threat to life or bodily function? How? (Chest pain, [place], [place], pneumonia, PE, COPD, DKA, ARF, appy, cholecystitis, CVA, Diverticulitis, Homicidal, Suicidal, threat to staff... and all critical care pts) @ -[No] Dr. Pacheco is my attending Disposition Clinical Impression: Bleeding from wound, Finger pain Disposition: HOME SELF-CARE Condition: Good Instructions (If sedation given, give patient instructions): Acute Wound Care (ED) Additional Instructions: Take medication as directed. Alternate Califon and Motrin for pain relief. Follow-up with orthopedics nurse in 1-2 days. Return to the emergency department if you experience new, concerning, or worsening symptoms. Prescriptions: Cephalexin [Keflex] 500 mg PO Q6HR #56 cap Ibuprofen [Motrin] 800 mg PO Q8HR PRN #30 tab PRN Reason: Pain Is patient prescribed a controlled substance at d/c from ED?: No Referrals: Sharyn Whitlock DO [Primary Care Provider] - 1-2 days
[2022-11-17 01:20] VITALS: BP 166/66; PULSE 62; RESP 18
== END 2022-11-17 01:20 | disposition home or self-care (01) ==
LOC: EC 21:49
DX: S65.514A Laceration of blood vessel of right ring finger, initial encounter (principal); J44.9 Chronic obstructive pulmonary disease, unspecified; E11.9 Type 2 diabetes mellitus without complications; E78.5 Hyperlipidemia, unspecified; I10 Essential (primary) hypertension; I25.2 Old myocardial infarction; Z86.73 Personal history of transient ischemic attack (TIA), and cerebral infarction without residual deficits; F41.9 Anxiety disorder, unspecified; F32.A Depression, unspecified; Z87.891 Personal history of nicotine dependence; Z88.5 Allergy status to narcotic agent; Z79.84 Long term (current) use of oral hypoglycemic drugs; Z79.82 Long term (current) use of aspirin; Z79.51 Long term (current) use of inhaled steroids; Z79.899 Other long term (current) drug therapy; Z79.4 Long term (current) use of insulin; W28.XXXA Contact with powered lawn mower, initial encounter
CPT/HCPCS: 99283; 96365; 96372; J1170

== ENCOUNTER 2022-12-07 13:59 | Emergency (ER) | payer OTHER ==
[2022-12-07 14:05] VITALS: BP 150/72; PULSE 65; RESP 20; TEMP 98.4
--- NOTE | 2022-12-07 15:16 | ED ---
General Adult HPI - General Chief complaint: Recheck/Abnormal Lab/Rx Stated complaint: left finger pain-post procedure Time Seen by Provider: 12/07/22 14:39 Source: patient Mode of arrival: ambulatory Limitations: no limitations - History of Present Illness Initial comments: Dictation was produced using [employer] dictation software. please excuse any grammatical, word or spelling errors. Chief Complaint: 62-year-old male presents with malodorous finger dressing History of Present Illness: 62-year-old male presents with malodorous smell coming from splint that was placed. Patient was seen here in emergency department earlier this month after suffering hand injury from lawnmower. He was transferred onto [place] where his lacerations were repaired. He's been in a splint ever since. 2 days after the injury he came in second time for concerns of bleeding. Patient is been wearing since 10 splint for the last 20 days. They're worried about a fall, smell coming from the splint site. tried to change some the dressing was concerned that perhaps maybe there was something more serious going on. Patient does not have any complaints. He has an appointment coming up this week with hand specialist for follow-up The ROS documented in this emergency department record has been reviewed and confirmed by me. Those systems with pertinent positive or negative responses have been documented in the HPI. All other systems are other negative and/or noncontributory. - Related Data Home Medications Medication Instructions Recorded Confirmed Aspirin [Adult Low Dose Aspirin EC] 81 mg PO W/SUPPER 08/28/15 07/25/22 Tamsulosin [Flomax] 0.4 mg PO BID 10/20/18 07/25/22 Triamterene-Hctz 37.5-25Mg 1 tab PO DAILY 04/04/20 07/25/22 [Maxzide 37.5-25] Valsartan [Diovan] 160 mg PO BID 04/04/20 07/25/22 Albuterol Sulfate [Proair Hfa] 2 puff INHALATION RT-QID PRN 10/22/20 07/25/22 Budesonide-Formot 160-4.5 Mcg 2 puff INHALATION RT-BID 10/22/20 07/25/22 [Symbicort 160-4.5 Mcg Inhaler] Glimepiride [Amaryl] 4 mg PO BID-W/MEALS 05/11/21 02/11/23 Insulin Glargine,Hum.rec.anlog 60 unit SQ DAILY 10/22/20 07/25/22 [Lantus Solostar Pen] Lacosamide [Vimpat] 200 mg PO BID 10/22/20 07/25/22 Multivitamin [Multivitamins Adult 1 tab PO DAILY 10/22/20 07/25/22 Gummies] Pregabalin [Lyrica] 100 mg PO BID 10/22/20 07/25/22 Thiamine [Vitamin B-1] 100 mg PO W/SUPPER 10/22/20 07/25/22 Ferrous Sulfate [Iron (65 MG 325 mg PO BID 12/10/20 07/25/22 Elemental)] Escitalopram [Lexapro] 10 mg PO HS 02/05/21 07/25/22 Hydromorphone Pain Pump 1 dose INTRATHECA CONTINUOUS 02/05/21 07/25/22 Clopidogrel [Plavix] 75 mg PO DAILY 06/30/21 07/25/22 HYDROcodone/APAP 10-325MG [Bon[place]arte 1 tab PO BID 06/30/21 07/25/22 10-325] Primidone [Mysoline] 50 mg PO DAILY 06/30/21 07/25/22 Dulaglutide [Trulicity] 3 mg SQ MITCHELL 07/23/22 07/25/22 Folic Acid 0.8 mg PO DAILY 07/23/22 07/25/22 Rosuvastatin Calcium [Crestor] 40 mg PO DAILY 07/23/22 07/25/22 metFORMIN HCL ER [Glucophage XR] 1,000 mg PO BID 07/23/22 07/25/22 Previous Rx's Medication Instructions Recorded Amoxic-Pot Clav 875-125Mg 1 tab PO Q12HR 5 Days #10 tab 07/28/22 [Augmentin 875-125] Cephalexin [Keflex] 500 mg PO Q6HR #56 cap 11/17/22 Ibuprofen [Motrin] 800 mg PO Q8HR PRN #30 tab 11/17/22 Allergies Allergy/AdvReac Type Severity Reaction Status Date / Time morphine AdvReac Nausea & Verified 12/07/22 14:05 Vomiting Review of Systems ROS Statement: Those systems with pertinent positive or pertinent negative responses have been documented in the HPI. ROS Other: All systems not noted in ROS Statement are negative. Past Medical History Past Medical History: COPD, CVA/TIA, Diabetes Mellitus, Hyperlipidemia, Hypertension, Memory Impairment, Myocardial Infarction (CO), Prostate Disorder, Seizure Disorder, Skin Disorder Additional Past Medical History / Comment(s): duodenal ulcer, pain and numbness cyrus legs and feet,pain pump in back, anemia. TIA X3, HEPATITIS C PAST HISTORY, LAST SEIZURE 2012,hiatal hernia Last Myocardial Infarction Date:: POSSIBLE CO 2012 History of Any Multi-Drug Resistant Organisms: None Reported Past Surgical History: Appendectomy, Back Surgery, Heart Catheterization, Orthopedic Surgery Additional Past Surgical History / Comment(s): titanium lyn in lt leg, skin graph to rt 1st and middle finger, lt eardum replaced, cyrus. foot surgery to arch, cataract surgery bilateral with implant,skin graft left leg Past Anesthesia/Blood Transfusion Reactions: No Reported Reaction Past Psychological History: Anxiety, Depression Smoking Status: Former smoker Past Alcohol Use History: None Reported Past Drug Use History: None Reported - Past Family History Mother Family Medical History: Diabetes Mellitus, Pulmonary Embolus Father Additional Family Medical History / Comment(s): Father had pain problems/hallucinations. He committed suicide. General Exam - General Exam Comments Initial Comments: PHYSICAL EXAM: General Impression: Alert and oriented x3, not in acute distress HEENT: Normocephalic atraumatic, extra-ocular movements intact, pupils equal and reactive to light bilaterally, mucous membranes moist. Cardiovascular: Heart regular rate and rhythm Chest: Able to complete full sentences, no retractions, no tachypnea Musculoskeletal: Pulses present and equal in all extremities, no peripheral edema Motor: no focal deficits noted Neurological: CN II-XII grossly intact, no focal motor or sensory deficits noted Skin: Intact with no visualized rashes Psych: Normal affect and mood Left upper extremity: Splint was removed and patient has multiple dressings to the distal fingertips. No purulent discharge Limitations: no limitations Course Vital Signs 12/07/22 14:03 Temperature 98.4 F Pulse Rate 65 Respiratory 20 Rate Blood Pressure 150/72 O2 Sat by Pulse 99 Oximetry Medical Decision Making - Medical Decision Making Was pt. sent in by a medical professional or institution (, PA, [employer], urgent care, hospital, or [place] health care facility...) When possible be specific @ -No Did you speak to anyone other than the patient for history (EMS, parent, family, police, friend...)? What history was obtained from this source @ - at the bedside states that his dressing smelled foul Did you review nursing and triage notes (agree or disagree)? Why? @ -I reviewed and agree with nursing and triage notes Were old charts reviewed (outside hosp., previous admission, EMS record, old EKG, old radiological studies, urgent care reports/EKG's, [place] health care facility records)? Report findings @ -No old charts were reviewed Differential Diagnosis (chest pain, altered mental status, abdominal pain women, abdominal pain men, vaginal bleeding, musculoskeletal, weakness, fever, dyspnea, syncope, headache, dizziness, GI bleed, back pain, seizure, CVA, palpatations, mental health)? @ -not applicable EKG interpreted by me (3pts min.). @ -None done X-rays interpreted by me (1pt min.). @ -None done CT interpreted by me (1pt min.). @ -None done U/S interpreted by me (1pt. min.). @ -None done What testing was considered but not performed or refused? (CT, X-rays, U/S, labs)? Why? @ -None What meds were considered but not given or refused? Why? @ -None Did you discuss the management of the patient with other professionals (professionals i.e. , PA, [employer], lab, RT, psych nurse, social media director, tin flipper, teacher, conservation enforcement officer, trimming caser)? Give summary @ -No Was smoking cessation discussed for >3mins.? @ -No Was critical care preformed (if so, how long)? @ -No Were there social determinants of health that impacted care today? How? (Homelessness, low income, unemployed, alcoholism, drug addiction, transportation, low edu. Level, literacy, decrease access to med. care, residential, rehab)? @ -No Was there de-escalation of care discussed even if they declined (Discuss DNR or withdrawal of care, Hospice)? DNR status @ -No What co-morbidities impacted this encounter? (DM, HTN, Smoking, COPD, CAD, Cancer, CVA, ARF, Chemo, Hep., AIDS, mental health diagnosis, sleep apnea, morbid obesity)? @ -None Was patient admitted / discharged? Hospital course, mention meds given and route, prescriptions, significant lab abnormalities, going to OR and other pertinent info. @ -62-year-old male presents emergency approach chief complaint of foul smell coming from left upper show any wound. He is brought in by for concerns of perhaps complication. Dressing was removed. Wound was evaluated. There did appear to be some necrotic fingertips. He is going in for likely amputation revision with hand specialist later this week. No concerns of wet gangrene or life-threatening infection. Dressing was replaced family was instructed to maintain the dressing until follows up with hand specialist. Undiagnosed new problem with uncertain prognosis? @ -No Drug Therapy requiring intensive monitoring for toxicity (Heparin, Nitro, Insulin, Cardizem)? @ -No Were any procedures done? @ -No Diagnosis/symptom? Acute, or Chronic, or Acute on Chronic? Uncomplicated (without systemic symptoms) or Complicated (systemic symptoms)? @ -1. Malodorous wound dressing Side effects of treatment? @ -No Exacerbation, Progression, or Severe Exacerbation? @ -No Poses a threat to life or bodily function? How? (Chest pain, [place], CO, pneumonia, PE, COPD, DKA, ARF, appy, cholecystitis, CVA, Diverticulitis, Homicidal, Suicidal, threat to staff... and all critical care pts) @ -No Disposition Clinical Impression: Visit for wound check Disposition: HOME SELF-CARE Condition: Good Additional Instructions: follow up with hand specialist Is patient prescribed a controlled substance at d/c from ED?: No Referrals: Sharyn Whitlock DO [Primary Care Provider] - 1-2 days Time of Disposition: 15:16
== END 2022-12-07 15:37 | disposition home or self-care (01) ==
LOC: EC 13:59
DX: Z48.89 Encounter for other specified surgical aftercare (principal); J44.9 Chronic obstructive pulmonary disease, unspecified; I25.2 Old myocardial infarction; E11.9 Type 2 diabetes mellitus without complications; E78.5 Hyperlipidemia, unspecified; I10 Essential (primary) hypertension; Z86.73 Personal history of transient ischemic attack (TIA), and cerebral infarction without residual deficits; F41.9 Anxiety disorder, unspecified; F32.A Depression, unspecified; Z87.891 Personal history of nicotine dependence; Z88.5 Allergy status to narcotic agent; Z79.51 Long term (current) use of inhaled steroids; Z79.02 Long term (current) use of antithrombotics/antiplatelets; Z79.84 Long term (current) use of oral hypoglycemic drugs; Z79.4 Long term (current) use of insulin; Z79.899 Other long term (current) drug therapy
CPT/HCPCS: 99283

== ENCOUNTER → 2022-12-30 | Outpatient (CLI) | payer OTHER ==
[2022-12-30 20:38] LABS: Basophils # (A) 0.02 X 10*3/uL (0.00-0.10); Basophils % (A) 0.4 %; Eosinophils # (A) 0.24 X 10*3/uL (0.04-0.35); Eosinophils % (A) 4.5 %; HCT 34.2 % (39.6-50.0); HGB 10.8 d/dL (12.0-15.0); Lymphocytes # (A) 0.98 X 10*3/uL (0.90-5.00); Lymphocytes % (A) 18.4 %; MCH 32.3 pg (27.0-32.0); MCHC 31.6 d/dL (32.0-37.0); MCV 102.4 FL (80.0-97.0); Mean Platelet Volume 11.1 FL (9.5-12.2); Monocytes # (A) 0.34 X 10*3/uL (0.20-1.00); Monocytes % (A) 6.4 %; NRBC Per 100 WBC 0 X 10*3/uL (0.00-0.01); Neutrophils # (A) 3.73 X 10*3/uL (1.80-7.70); Neutrophils % (A) 69.9 %; Platelet Count 98 X 10*3/uL (140-440); RBC 3.34 X 10*6/uL (4.40-5.60); RDW 14.1 % (11.5-14.5); WBC 5.33 X 10*3/uL (4.50-10.00)
[2022-12-30 21:38] LABS: ALT 30 U/L (10-49); AST 30 U/L (14-35); Albumin 4.3 d/dL (3.8-4.9); Albumin/Globulin Ratio 1.39 Ratio (1.60-3.17); Alkaline Phosphatase 71 U/L (41-126); BUN/Creat Ratio 24.15 Ratio (12.00-20.00); Blood Urea Nitrogen 31.4 mg/dL (9.0-27.0); Calcium 9.9 mg/dL (8.7-10.3); Carbon Dioxide 23.9 mmol/L (21.6-31.8); Chloride 105 mmol/L (96-109); Globulin 3.1 d/dL (1.6-3.3); Glucose 142 mg/dL (70-110); Potassium 4.9 mmol/L (3.5-5.5); Sodium 141 mmol/L (135-145); Total Bilirubin 0.2 mg/dL (0.3-1.2); Total Protein 7.4 d/dL (6.2-8.2)
== END | disposition home or self-care (01) ==
LOC: LABWHC1 15:15
PROVIDERS: ATTEND Internal Medicine Gastroenterology
DX: K74.60 Unspecified cirrhosis of liver (principal)
CPT/HCPCS: 36415; 80053; 82105; 83605; 85025

== ENCOUNTER → 2023-01-15 | Outpatient (CLI) | payer OTHER ==
--- NOTE | 2023-01-15 10:26 | US ---
EXAMINATION TYPE: US liver DATE OF EXAM: 01/15/2023 COMPARISON: Abdominal ultrasound 11/02/2018, CT abdomen and pelvis 05/07/2020 CLINICAL INDICATION: Male, 62 years old with history of K74.60 CIRRHOSIS OF LIVER; elevated liver enz ymes TECHNIQUE: Multiple sonographic images of the right upper quadrant are obtained. FINDINGS: EXAM MEASUREMENTS: Liver Length: 17.4 cm Gallbladder Wall: 0.2 cm CBD: 0.5 cm Right Kidney: 10.2x4.9x5.3 cm OPTICAL ENGINEERING MANAGER NOTES: Pancreas: Tail obscured by overlying bowel gas Liver: enlarged Gallbladder: wnl Evidence for sonographic Graves's sign: No CBD: wnl Right Kidney: wnl, inferior pole slightly obscured by bowel The liver is mildly enlarged without focal lesion. There is coarsened echotexture with surface nodula rity identified. The visualized portions of the pancreas is unremarkable. The tail is obscured by ove rlying bowel gas. Gallbladder is within normal limits without evidence of cholelithiasis, wall thicke melva, pericholecystic fluid. Per electrical designer drafter, negative sonographic Graves sign. The common bile duct is within normal limits. Right kidney is within normal limits without visualized hydronephrosis, neph rolithiasis or definitive mass. IMPRESSION: Hepatomegaly with cirrhotic appearance. No definitive focal lesion.
== END | disposition home or self-care (01) ==
LOC: RADUSWWP 09:43
PROVIDERS: ATTEND Internal Medicine Gastroenterology
DX: K74.60 Unspecified cirrhosis of liver (principal)
CPT/HCPCS: 76705

== ENCOUNTER 2023-02-23 11:49 | Observation (INO) | payer OTHER ==
--- NOTE | 2023-02-23 12:44 | ED ---
General Adult HPI - General Chief complaint: Weakness Stated complaint: Weakness, Multiple Falls Time Seen by Provider: 02/23/23 12:05 Source: patient, EMS, RN notes reviewed, old records reviewed Mode of arrival: EMS Limitations: physical limitation - History of Present Illness Initial comments: This is a 62-year-old male presents emergency Department with a past medical history significant for liver cirrhosis. Patient states she supposed be on lact ulose but he doesn't taketoo weak to stand. brings him in because she can no longer take care of him because he keeps falling. Patient states the last week his fall and his face multiple times and had his head once. Patient denies being on any blood thinners. Patient denies any chest pain difficulty breathing first breath per patient denies any abdominal pain. Patient denies any nausea v omiting. Patient states he only has diarrhea and he takes a lactulose. Patient denies any recent fever chills or cough. Any extremity pain. - Related Data Home Medications Medication Instructions Recorded Confirmed Aspirin [Adult Low Dose Aspirin EC] 81 mg PO W/SUPPER 08/28/15 07/25/22 Tamsulosin [Flomax] 0.4 mg PO BID 10/20/18 07/25/22 Triamterene-Hctz 37.5-25Mg 1 tab PO DAILY 04/04/20 07/25/22 [Maxzide 37.5-25] Valsartan [Diovan] 160 mg PO BID 04/04/20 07/25/22 Albuterol Sulfate [Proair Hfa] 2 puff INHALATION RT-QID PRN 10/22/20 07/25/22 Budesonide-Formot 160-4.5 Mcg 2 puff INHALATION RT-BID 10/22/20 07/25/22 [Symbicort 160-4.5 Mcg Inhaler] Glimepiride [Amaryl] 4 mg PO BID-W/MEALS 10/22/20 07/25/22 Insulin Glargine,Hum.rec.anlog 60 unit SQ DAILY 10/22/20 07/25/22 [Lantus Solostar Pen] Lacosamide [Vimpat] 200 mg PO BID 10/22/20 07/25/22 Multivitamin [Multivitamins Adult 1 tab PO DAILY 10/22/20 07/25/22 Gummies] Pregabalin [Lyrica] 100 mg PO BID 10/22/20 07/25/22 Thiamine [Vitamin B-1] 100 mg PO W/SUPPER 10/22/20 07/25/22 Ferrous Sulfate [Iron (65 MG 325 mg PO BID 12/10/20 07/25/22 Elemental)] Escitalopram [Lexapro] 10 mg PO HS 02/05/21 07/25/22 Hydromorphone Pain Pump 1 dose INTRATHECA CONTINUOUS 02/05/21 07/25/22 Clopidogrel [Plavix] 75 mg PO DAILY 06/30/21 07/25/22 HYDROcodone/APAP 10-325MG [[place] 1 tab PO BID 06/30/21 07/25/22 10-325] Primidone [Mysoline] 50 mg PO DAILY 06/30/21 07/25/22 Dulaglutide [Trulicity] 3 mg SQ [place] 07/23/22 07/25/22 Folic Acid 0.8 mg PO DAILY 07/23/22 07/25/22 Rosuvastatin Calcium [Crestor] 40 mg PO DAILY 07/23/22 07/25/22 metFORMIN HCL ER [Glucophage XR] 1,000 mg PO BID 07/23/22 07/25/22 Previous Rx's Medication Instructions Recorded Amoxic-Pot Clav 875-125Mg 1 tab PO Q12HR 5 Days #10 tab 07/28/22 [Augmentin 875-125] Cephalexin [Keflex] 500 mg PO Q6HR #56 cap 11/17/22 Ibuprofen [Motrin] 800 mg PO Q8HR PRN #30 tab 11/17/22 Allergies Allergy/AdvReac Type Severity Reaction Status Date / Time morphine AdvReac Nausea & Verified 02/23/23 12:08 Vomiting Review of Systems ROS Statement: Those systems with pertinent positive or pertinent negative responses have been documented in the HPI. ROS Other: All systems not noted in ROS Statement are negative. Past Medical History Past Medical History: COPD, CVA/TIA, Diabetes Mellitus, Hyperlipidemia, Hypertension, Memory Impairment, Myocardial Infarction (AL), Prostate Disorder, Seizure Disorder, Skin Disorder Additional Past Medical History / Comment(s): duodenal ulcer, pain and numbness cyrus legs and feet,pain pump in back, anemia. TIA X3, HEPATITIS C PAST HISTORY, LAST SEIZURE 2012,hiatal hernia Last Myocardial Infarction Date:: POSSIBLE [place] 2012 History of Any Multi-Drug Resistant Organisms: None Reported Past Surgical History: Appendectomy, Back Surgery, Heart Catheterization, Orthopedic Surgery Additional Past Surgical History / Comment(s): titanium lyn in lt leg, skin graph to rt 1st and middle finger, lt eardum replaced, cyrus. foot surgery to arch, cataract surgery bilateral with implant,skin graft left leg Past Anesthesia/Blood Transfusion Reactions: No Reported Reaction Past Psychological History: Anxiety, Depression Smoking Status: Former smoker Past Alcohol Use History: None Reported Past Drug Use History: None Reported - Past Family History Mother Family Medical History: Diabetes Mellitus, Pulmonary Embolus Father Additional Family Medical History / Comment(s): Father had pain problems/hallucinations. He committed suicide. General Exam - General Exam Comments Initial Comments: GENERAL: Patient is well-developed and well-nourished. Patient is nontoxic and well- hydrated and is in mild distress. ENT: Neck is soft and supple. No significant lymphadenopathy is noted. Oropharynx is clear. Moist mucous membranes. Neck has full range of motion without suzan citing any pain. EYES: The sclera were anicteric and conjunctiva were pink and moist. Extraocular movements were intact and pupils were equal round and reactive to light. Eyelids were unremarkable. PULMONARY: Unlabored respirations. Good breath sounds bilaterally. Slight crackles in both bases CARDIOVASCULAR: There is a regular rate and rhythm without any murmurs gallops or rubs. ABDOMEN: Soft and nontender with normal bowel sounds. Mildly distended abdomen SKIN: Skin is clear with no lesions or rashes and otherwise unremarkable. NEUROLOGIC: Patient is alert and oriented x3. Cranial nerves II through XII are grossly intact. Motor and sensory are also intact. Normal speech, volume and content. Symmetrical smile. MUSCULOSKELETAL: Normal extremities with adequate strength and full range of motion. LYMPHATICS: No significant lymphadenopathy is noted PSYCHIATRIC: Normal psychiatric evaluation. Limitations: physical limitation Course Vital Signs 02/23/23 12:01 Temperature 98.7 F Pulse Rate 58 L Respiratory 18 Rate Blood Pressure 142/67 O2 Sat by Pulse 95 Oximetry Medical Decision Making - Medical Decision Making EKG was interpreted by myself EKG shows a sinus bradycardia 56 bpm NM interval 250 one QRS is 105 Q-T intervals 447 QTC is 438. Patient's EKG shows no ST segment elevation or depression. Patient's CT showed possible mastoiditis patient had no tenderness over the mastoids Was pt. sent in by a medical professional or institution (JOSEPHINE Fowler, PLAYBACK OPERATOR, urgent care, hospital, or care home...) When possible be specific @ -No Did you speak to anyone other than the patient for history (EMS, parent, family, police, friend...)? What history was obtained from this source @ - gave quite a bit of a history Did you review nursing and triage notes (agree or disagree)? Why? @ -I reviewed and agree with nursing and triage notes Were old charts reviewed (outside hosp., previous admission, EMS record, old EKG, old radiological studies, urgent care reports/EKG's, care home records)? Report findings @ -I reviewed prior lab work prior radiological results Differential Diagnosis (chest pain, altered mental status, abdominal pain women, abdominal pain men, vaginal bleeding, weakness, fever, dyspnea, syncope, headache, dizziness, GI bleed, back pain, seizure, CVA, palpatations, mental health, musculoskeletal)? @ -Differential Weakness: Hypoglycemia, shock, sepsis, hyponatremia, anemia, infection, AL, ETOH, adverse medicine reaction, overdose, stroke, this is not meant to be an all-inclusive list. EKG interpreted by me (3pts min.). @ -As above X-rays interpreted by me (1pt min.). @ -Chest x-ray showed no acute abnormality CT interpreted by me (1pt min.). @ -CT of the brain and C-spine showed no acute abnormality. CT of the facial bones showed no acute abnormality U/S interpreted by me (1pt. min.). @ -None done What testing was considered but not performed or refused? (CT, X-rays, U/S, labs)? Why? @ -None What meds were considered but not given or refused? Why? @ -None Did you discuss the management of the patient with other professionals (professionals i.e. JOSEPHINE Fowler, PLAYBACK OPERATOR, lab, RT, psych nurse, secondary social studies teacher, river and lakes boatman, teacher, border patrol officer, bilingual patient support caseworker)? Give summary @ -I spoke with Dr. Liu he agreed to admit the patient Was smoking cessation discussed for >3mins.? @ -No Was critical care preformed (if so, how long)? @ -No Were there social determinants of health that impacted care today? How? (Homelessness, low income, unemployed, alcoholism, drug addiction, transportation, low edu. Level, literacy, decrease access to med. care, longterm, rehab)? @ -No Was there de-escalation of care discussed even if they declined (Discuss DNR or withdrawal of care, Hospice)? DNR status @ -No What co-morbidities impacted this encounter? (DM, HTN, Smoking, COPD, CAD, Cancer, CVA, ARF, Chemo, Hep., AIDS, mental health diagnosis, sleep apnea, morbid obesity)? @ -None Was patient admitted / discharged? Hospital course, mention meds given and route, prescriptions, significant lab abnormalities, going to OR and other pertinent info. @ -Patient was not comfortable going home because she continues to fall and he is aphasic and is significantly hurt himself. I spoke with Dr. Liu he was in agreement with keeping the patient I wrote admitting orders. Undiagnosed new problem with uncertain prognosis? @ -No Drug Therapy requiring intensive monitoring for toxicity (Heparin, Nitro, Insulin, Cardizem)? @ -No Were any procedures done? @ -No Diagnosis/symptom? @ -Generalized weakness Acute, or Chronic, or Acute on Chronic? @ -Acute on chronic Uncomplicated (without systemic symptoms) or Complicated (systemic symptoms)? @ -Complicated Side effects of treatment? @ -No Exacerbation, Progression, or Severe Exacerbation? @ -No Poses a threat to life or bodily function? How? (Chest pain, [place], AL, pneumonia, PE, COPD, DKA, ARF, appy, cholecystitis, CVA, Diverticulitis, Homicidal, Suicidal, threat to staff... and all critical care pts) @ -No Diagnosis/symptom? @ -Multiple falls Acute, or Chronic, or Acute on Chronic? @ -Acute Uncomplicated (without systemic symptoms) or Complicated (systemic symptoms)? @ -Complicated Side effects of treatment? @ -none Exacerbation, Progression, or Severe Exacerbation] @ -no Poses a threat to life or bodily function? @ -no - Lab Data Result diagrams: 02/23/23 12:55 02/23/23 12:55 Lab Results 02/23/23 02/23/23 02/23/23 Range/Units 12:55 12:55 12:55 WBC 4.8 (3.8-10.6) k/uL RBC 3.48 L (4.30-5.90) m/uL Hgb 11.7 L (13.0-17.5) gm/dL Hct 34.9 L (39.0-53.0) % MCV 100.4 H (80.0-100.0) fL MCH 33.5 (25.0-35.0) pg MCHC 33.4 (31.0-37.0) g/dL RDW 14.2 (11.5-15.5) % Plt Count 87 L (150-450) k/uL MPV 8.6 Neutrophils % 66 % Lymphocytes % 22 % Monocytes % 6 % Eosinophils % 4 % Basophils % 0 % Neutrophils # 3.2 (1.3-7.7) k/uL Lymphocytes # 1.0 (1.0-4.8) k/uL Monocytes # 0.3 (0-1.0) k/uL Eosinophils # 0.2 (0-0.7) k/uL Basophils # 0.0 (0-0.2) k/uL Manual Slide Review Performed Macrocytosis Slight PT 10.3 (9.0-12.0) sec INR 1.0 (<1.2) APTT (22.0-30.0) sec Sodium 136 L (137-145) mmol/L Potassium 4.8 (3.5-5.1) mmol/L Chloride 101 (98-107) mmol/L Carbon Dioxide 29 (22-30) mmol/L Anion Gap 6 mmol/L BUN 37 H (9-20) mg/dL Creatinine 1.19 (0.66-1.25) mg/dL Est GFR (CKD-EPI)AfAm 76 (>60 ml/min/1.73 sqM) Est GFR (CKD-EPI)NonAf 66 (>60 ml/min/1.73 sqM) Glucose 109 H (74-99) mg/dL Plasma Lactic Acid [place] (0.7-2.0) mmol/L Calcium 8.9 (8.4-10.2) mg/dL Magnesium 2.6 H (1.6-2.3) mg/dL Total Bilirubin 0.5 (0.2-1.3) mg/dL AST 51 (17-59) U/L ALT 32 (4-49) U/L Alkaline Phosphatase 57 (38-126) U/L Ammonia (<30) umol/L Troponin I (0.000-0.034) ng/mL Total Protein 7.9 (6.3-8.2) g/dL Albumin 4.2 (3.5-5.0) g/dL Urine Color Urine Appearance (Clear) Urine pH (5.0-8.0) Ur Specific [place] (1.001-1.035) Urine Protein (Negative) Urine Glucose (UA) (Negative) Urine Ketones (Negative) Urine Blood (Negative) Urine Nitrite (Negative) Urine Bilirubin (Negative) Urine Urobilinogen (<2.0) mg/dL Ur Leukocyte Esterase (Negative) 02/23/23 02/23/23 02/23/23 Range/Units 12:55 12:55 12:55 WBC (3.8-10.6) k/uL RBC (4.30-5.90) m/uL Hgb (13.0-17.5) gm/dL Hct (39.0-53.0) % MCV (80.0-100.0) fL MCH (25.0-35.0) pg MCHC (31.0-37.0) g/dL RDW (11.5-15.5) % Plt Count (150-450) k/uL MPV Neutrophils % % Lymphocytes % % Monocytes % % Eosinophils % % Basophils % % Neutrophils # (1.3-7.7) k/uL Lymphocytes # (1.0-4.8) k/uL Monocytes # (0-1.0) k/uL Eosinophils # (0-0.7) k/uL Basophils # (0-0.2) k/uL Manual Slide Review Macrocytosis PT (9.0-12.0) sec INR (<1.2) APTT 21.3 L (22.0-30.0) sec Sodium (137-145) mmol/L Potassium (3.5-5.1) mmol/L Chloride (98-107) mmol/L Carbon Dioxide (22-30) mmol/L Anion Gap mmol/L BUN (9-20) mg/dL Creatinine (0.66-1.25) mg/dL Est GFR (CKD-EPI)AfAm (>60 ml/min/1.73 sqM) Est GFR (CKD-EPI)NonAf (>60 ml/min/1.73 sqM) Glucose (74-99) mg/dL Plasma Lactic Acid [place] 1.2 (0.7-2.0) mmol/L Calcium (8.4-10.2) mg/dL Magnesium (1.6-2.3) mg/dL Total Bilirubin (0.2-1.3) mg/dL AST (17-59) U/L ALT (4-49) U/L Alkaline Phosphatase (38-126) U/L Ammonia 11 (<30) umol/L Troponin I <0.012 (0.000-0.034) ng/mL Total Protein (6.3-8.2) g/dL Albumin (3.5-5.0) g/dL Urine Color Urine Appearance (Clear) Urine pH (5.0-8.0) Ur Specific [place] (1.001-1.035) Urine Protein (Negative) Urine Glucose (UA) (Negative) Urine Ketones (Negative) Urine Blood (Negative) Urine Nitrite (Negative) Urine Bilirubin (Negative) Urine Urobilinogen (<2.0) mg/dL Ur Leukocyte Esterase (Negative) 02/23/23 Range/Units 15:16 WBC (3.8-10.6) k/uL RBC (4.30-5.90) m/uL Hgb (13.0-17.5) gm/dL Hct (39.0-53.0) % MCV (80.0-100.0) fL MCH (25.0-35.0) pg MCHC (31.0-37.0) g/dL RDW (11.5-15.5) % Plt Count (150-450) k/uL MPV Neutrophils % % Lymphocytes % % Monocytes % % Eosinophils % % Basophils % % Neutrophils # (1.3-7.7) k/uL Lymphocytes # (1.0-4.8) k/uL Monocytes # (0-1.0) k/uL Eosinophils # (0-0.7) k/uL Basophils # (0-0.2) k/uL Manual Slide Review Macrocytosis PT (9.0-12.0) sec INR (<1.2) APTT (22.0-30.0) sec Sodium (137-145) mmol/L Potassium (3.5-5.1) mmol/L Chloride (98-107) mmol/L Carbon Dioxide (22-30) mmol/L Anion Gap mmol/L BUN (9-20) mg/dL Creatinine (0.66-1.25) mg/dL Est GFR (CKD-EPI)AfAm (>60 ml/min/1.73 sqM) Est GFR (CKD-EPI)NonAf (>60 ml/min/1.73 sqM) Glucose (74-99) mg/dL Plasma Lactic Acid [place] (0.7-2.0) mmol/L Calcium (8.4-10.2) mg/dL Magnesium (1.6-2.3) mg/dL Total Bilirubin (0.2-1.3) mg/dL AST (17-59) U/L ALT (4-49) U/L Alkaline Phosphatase (38-126) U/L Ammonia (<30) umol/L Troponin I (0.000-0.034) ng/mL Total Protein (6.3-8.2) g/dL Albumin (3.5-5.0) g/dL Urine Color Colorless Urine Appearance Clear (Clear) Urine pH 7.0 (5.0-8.0) Ur Specific [place] 1.010 (1.001-1.035) Urine Protein Negative (Negative) Urine Glucose (UA) Negative (Negative) Urine Ketones Negative (Negative) Urine Blood Negative (Negative) Urine Nitrite Negative (Negative) Urine Bilirubin Negative (Negative) Urine Urobilinogen <2.0 (<2.0) mg/dL Ur Leukocyte Esterase Negative (Negative) Disposition Clinical Impression: Generalized weakness, Multiple falls Disposition: ADMITTED IP TO THIS [facility] Referrals: Dmitriy Liu MD [Primary Care Provider] - 1-2 days Time of Disposition: 17:05
[2023-02-23 13:33] LABS: Lactic Acid, Venous 1.2 mmol/L (0.7-2.0)
[2023-02-23 13:34] LABS: ALT 32 U/L (4-49); African American GFR (CKD) 76 (>60 ml/min/1.73 sqM); Albumin 4.2 g/dL (3.5-5.0); Anion Gap 6 mmol/L; Blood Urea Nitrogen 37 mg/dL (9-20); Calcium 8.9 mg/dL (8.4-10.2); Carbon Dioxide 29 mmol/L (22-30); Chloride 101 mmol/L (98-107); Glucose 109 mg/dL (74-99); Non-African American GFR(CKD) 66 (>60 ml/min/1.73 sqM); Sodium 136 mmol/L (137-145); Total Bilirubin 0.5 mg/dL (0.2-1.3); Total Protein 7.9 g/dL (6.3-8.2)
[2023-02-23 13:39] LABS: AST 51 U/L (17-59); Alkaline Phosphatase 57 U/L (38-126); Magnesium 2.6 mg/dL (1.6-2.3); Potassium 4.8 mmol/L (3.5-5.1)
[2023-02-23 13:43] LABS: Basophils % (A) 0 %; Eosinophils # (A) 0.2 k/uL (0-0.7); Eosinophils % (A) 4 %; HCT 34.9 % (39.0-53.0); HGB 11.7 gm/dL (13.0-17.5); Lymphocytes % (A) 22 %; MCH 33.5 pg (25.0-35.0); MCHC 33.4 g/dL (31.0-37.0); MCV 100.4 fL (80.0-100.0); Macrocytosis Slight; Mean Platelet Volume 8.6; Monocytes # (A) 0.3 k/uL (0-1.0); Monocytes % (A) 6 %; Neutrophils # (A) 3.2 k/uL (1.3-7.7); Neutrophils % (A) 66 %; RBC 3.48 m/uL (4.30-5.90); RDW 14.2 % (11.5-15.5); WBC 4.8 k/uL (3.8-10.6)
--- NOTE | 2023-02-23 13:46 | XR ---
EXAMINATION TYPE: XR chest 2V DATE OF EXAM: 02/23/2023 COMPARISON: 07/28/2022 TECHNIQUE: PA and lateral views submitted. HISTORY: Cough FINDINGS: Limited inspiration with bilateral subsegmental consolidation. There is coarsening of interstitium. There is AC joint arthropathy. Heart size normal and no overt failure. Osseous structures demonstrate hypertrophic and degenerative changes of the spine. IMPRESSION: 1. Basilar atelectasis favored over pneumonia. Correlate for chronic interstitial lung disease. Mild superimposed interstitial pneumonitis or venous congestion in the differential diagnosis
--- NOTE | 2023-02-23 13:46 | CT ---
EXAMINATION TYPE: CT brain cspine wo con DATE OF EXAM: 02/23/2023 COMPARISON: 07/25/2022 HISTORY: fall CT DLP: Combined DLP 1368.[address] of the brain was performed. The ventricles, basal cisterns and sulci overlying the cerebral convexities demonstrate moderate enla rgement. Remote right frontal insult. There is no evidence for intracranial hemorrhage or sulcal effacement. There is decreased attenuatio n about the periventricular white matter and deep white matter of both cerebral hemispheres, compatib le with chronic small vessel ischemia. No mass effects are seen. If symptoms persist consider MRI. Osseous calvarium is intact. IMPRESSION: 1. Age related atrophic and chronic small vessel ischemic change without acute intracranial process seen at this time. CT Cervical Spine: Unenhanced CT of the cervical spine was performed with bone and soft tissue window settings submitted . Coronal and sagittal reconstruction is obtained. There is normal alignment and prevertebral soft tissues. No evidence for acute cervical fracture . Scattered degenerative disc disease and spondylosis. Biapical scarring. IMPRESSION: 1. No evidence for acute fracture or subluxation of the cervical spine.
[2023-02-23 13:52] LABS: Prothrombin Time 10.3 sec (9.0-12.0)
--- NOTE | 2023-02-23 13:54 | CT ---
EXAMINATION TYPE: CT facial bones wo con DATE OF EXAM: 02/23/2023 COMPARISON: None HISTORY: Pain CT DLP: combined DLP 1368.5 mGycm Automated exposure control for dose reduction was used. TECHNIQUE: CT scan of the sinuses is performed without contrast, axial images are obtained, coronal r eformatted images are also reviewed. FINDINGS: The paranasal sinuses including the frontal, ethmoid, sphenoid, and maxillary sinuses bila terally are well-aerated without abnormal opacification. The ostiomeatal complex is patent bilateral ly on the coronal images. Opacification of the left mastoid air cells appears to be most typical chronic mastoiditis stable fro m CT of 07/25/2022. Hypertrophic and degenerative changes spine. Small osteoma frontal sinus. Mild garry nges of chronic sinusitis. Nasal septal deviation. Intracranially there is degenerative change. The globes are intact bilaterally. Atherosclerotic change of the carotid vasculature IMPRESSION: 1. No acute fracture. 2. Mild chronic sinusitis and left-sided mastoiditis. 3. Significant atherosclerotic change of the visualized portions of the carotid arteries consider ult rasound.
[2023-02-23 14:44] LABS: Platelet Count 87 k/uL (150-450)
[2023-02-23 16:43] LABS: Appearance,Urine Clear (Clear); Bilirubin,Urine Negative (Negative); Blood,Urine Negative (Negative); Color,Urine Colorless; Glucose,Urine (UA) Negative (Negative); Ketones,Urine Negative (Negative); Leukocyte Esterase,Urine Negative (Negative); Nitrite,Urine Negative (Negative); Protein,Urine Negative (Negative); Urobilinogen,Urine <2.0 mg/dL (<2.0)
[2023-02-23] MEDS ORDERED: NON FORMULARY DRUG (Lacosamide [Vimpat] 200 MG Tablet) PO SCH (21:15)
[2023-02-23 21:36] LABS: Glucose,Whole Blood 168 mg/dL (70-110)
[2023-02-23] MEDS: HYDROMORPHONE INJ SCH (22:36)
[2023-02-23] MEDS: VALSARTAN 160 MG TAB PO SCH (22:47)
[2023-02-23] MEDS: PREGABALIN 100 MG CAP PO SCH (22:47)
[2023-02-23] MEDS: levETIRAcetam 500 MG TAB PO SCH (22:47)
[2023-02-23] MEDS: LACOSAMIDE 50 MG TABLET PO SCH (22:47)
[2023-02-24 08:03] LABS: Glucose,Whole Blood 70 mg/dL (70-110)
[2023-02-24] MEDS: INSULIN ASPART (NovoLOG) 100 UNIT/ML VIAL SQ SCH ×4 (08:41→21:49)
[2023-02-24] MEDS: INSULIN DETEMIR (LEVEMIR) 100 UNIT/ML SYR SQ SCH (09:40)
[2023-02-24] MEDS: ATORVASTATIN 80 MG TAB PO SCH (09:40)
[2023-02-24] MEDS: ARIPiprazole 10 MG TAB PO SCH (09:40)
[2023-02-24] MEDS: ESCITALOPRAM 20 MG TAB PO SCH (09:41)
[2023-02-24] MEDS: PREGABALIN 100 MG CAP PO SCH ×2 (09:41→21:18)
[2023-02-24] MEDS: LACOSAMIDE 50 MG TABLET PO SCH ×2 (09:41→21:18)
[2023-02-24] MEDS: VALSARTAN 160 MG TAB PO SCH ×2 (09:41→21:49)
[2023-02-24] MEDS: TRIAMTERENE-HCTZ 37.5-25MG 1 EACH TAB PO SCH (09:41)
[2023-02-24] MEDS: amLODIPine 2.5 MG TAB PO SCH (09:41)
[2023-02-24] MEDS: PRIMIDONE 50 MG TAB PO SCH (09:42)
[2023-02-24] MEDS: CLOPIDOGREL 75 MG TAB PO SCH (09:42)
[2023-02-24] MEDS: levETIRAcetam 500 MG TAB PO SCH ×2 (09:42→21:49)
[2023-02-24 12:10] LABS: Glucose,Whole Blood 164 mg/dL (70-110)
--- NOTE | 2023-02-24 17:15 | P.CNNES ---
History of Present Illness Consult date: 02/24/23 Requesting physician: Dmitriy Liu Reason for Consult: neuro eval History of Present Illness: This is a 62-year-old gentleman with history of stroke, seizure, memory loss for the last 10 years/encephalopathy, cirrhosis from hepatitis C as well as alcohol use, chronic pain syndrome with neck and lower back pain status post pain pump, diabetes mellitus who presented emergency department because of recurrent falls. According to the the patient has been followed in the last 1 year but has been worse in last 1 week and he shuffles when he walks. He also has been having urinary incontinence in the last 6 months but worse in the last couple weeks. He has a memory the loss for the last 10 years and she stated that he has multiple medical issues in which he has a stroke with multiple TIAs, seizures, encephalopathy from cirrhosis. Patient follows up with Dr. Levy's N.P. and is in the process of obtaining MRI but pending insurance authorization per the that patient has had a pump for years. Patient does not have any resting tremor. He was told he has essential tremor. He has stopped drinking for years. Some other workup during his hospital visit consisted of: Ammonia level is 11 Hemoglobin A1c 7.3. AST of 51 ALT of 32. Calcium is 8.9. CT of the head is reported as age-related atrophy and chronic small vessel ischemic change without acute intracranial process seen at this time. I dillon carvalho reviewed the CT of the head and the she has encephalomalacia over the right frontal region. I feel there is a component of hydrocephalus in which the third ventricle and lateral ventricles and somewhat fourth ventricle is more dilated the then the patient atrophy. This is concerning for normal pressure hydrocephalus CT cervical spine is reported as no evidence of for acute fracture or sublux ation of cervical spine. Review of Systems 10 point system was reviewed and apparent positive and negative as per HPI. Past Medical History Past Medical History: COPD, CVA/TIA, Diabetes Mellitus, Hyperlipidemia, Hypertension, Memory Impairment, Myocardial Infarction ([place]), Prostate Disorder, Seizure Disorder, Skin Disorder Additional Past Medical History / Comment(s): duodenal ulcer, pain and numbness cyrus legs and feet,pain pump in back, anemia. TIA X3, HEPATITIS C PAST HISTORY, LAST SEIZURE 2012,hiatal hernia Last Myocardial Infarction Date:: POSSIBLE [place] 2012 History of Any Multi-Drug Resistant Organisms: None Reported Past Surgical History: Appendectomy, Back Surgery, Heart Catheterization, Orthopedic Surgery Additional Past Surgical History / Comment(s): titanium lyn in lt leg, skin graph to rt 1st and middle finger, lt eardum replaced, cyrus. foot surgery to arch, cataract surgery bilateral with implant,skin graft left leg Past Anesthesia/Blood Transfusion Reactions: No Reported Reaction Past Psychological History: Anxiety, Depression Additional Psychological History / Comment(s): past history of depression Smoking Status: Former smoker Past Alcohol Use History: None Reported Additional Past Alcohol Use History / Comment(s): Pt started smoking in 1974 and is a 1-2ppd smoker Past Drug Use History: None Reported - Past Family History Mother Family Medical History: Diabetes Mellitus, Pulmonary Embolus Father Additional Family Medical History / Comment(s): Father had pain problems/hallucinations. He committed suicide. Medications and Allergies Home Medications Medication Instructions Recorded Confirmed Type Triamterene-Hctz 37.5-25Mg 1 tab PO DAILY 04/04/20 02/23/23 History [Maxzide 37.5-25] Valsartan [Diovan] 160 mg PO BID 04/04/20 02/23/23 History Albuterol Sulfate [Proair Hfa] 2 puff INHALATION RT-QID PRN 10/22/20 02/23/23 History Budesonide-Formot 160-4.5 Mcg 2 puff INHALATION RT-BID 10/22/20 02/23/23 History [Symbicort 160-4.5 Mcg Inhaler] Glimepiride [Amaryl] 4 mg PO BID 10/22/20 02/23/23 History Insulin Glargine,Hum.rec.anlog 60 unit SQ DAILY 10/22/20 02/23/23 History [Lantus Solostar Pen] Lacosamide [Vimpat] 200 mg PO BID 10/22/20 02/23/23 History Pregabalin [Lyrica] 100 mg PO BID 10/22/20 02/23/23 History Ferrous Sulfate [Iron (65 MG 325 mg PO DAILY 12/10/20 02/23/23 History Elemental)] Hydromorphone Pain Pump 1 dose INTRATHECA CONTINUOUS 02/05/21 02/23/23 History Clopidogrel [Plavix] 75 mg PO DAILY 06/30/21 02/23/23 History HYDROcodone/APAP 10-325MG [[place] 1 tab PO BID PRN 06/30/21 02/23/23 History 10-325] Primidone [Mysoline] 50 mg PO DAILY 06/30/21 02/23/23 History Dulaglutide [Trulicity] 3 mg SQ SA 07/23/22 02/23/23 History Rosuvastatin Calcium [Crestor] 40 mg PO DAILY 07/23/22 02/23/23 History metFORMIN HCL ER [Glucophage XR] 1,000 mg PO BID 07/23/22 02/23/23 History ARIPiprazole [Abilify] 10 mg PO DAILY 02/23/23 02/23/23 History ARIPiprazole [Abilify] 20 mg PO DAILY 02/23/23 02/23/23 History Escitalopram [Lexapro] 20 mg PO DAILY 02/23/23 02/23/23 History amLODIPine [Norvasc] 2.5 mg PO DAILY 02/23/23 02/23/23 History levETIRAcetam [Keppra] 500 mg PO BID 02/23/23 02/23/23 History Allergies Allergy/AdvReac Type Severity Reaction Status Date / Time morphine AdvReac Nausea & Verified 02/23/23 17:03 Vomiting Physical Examination - Vital Signs Vital Signs: Vital Signs Temp Pulse Pulse Resp BP BP Pulse Ox 02/24/23 14:22 98.5 F 60 18 144/53 91 L 02/24/23 08:00 97.7 F 50 L 16 153/74 96 02/24/23 02:29 98.4 F 02/24/23 01:04 100.1 F H 56 L 18 118/69 93 L 02/23/23 21:24 98.2 F 64 17 160/75 94 L 02/23/23 20:05 97.8 F 61 16 116/66 95 Intake and Output 02/24/23 02/24/23 02/24/23 06:59 14:59 22:59 Output Total 700 800 Balance -700 -800 Output: Urine 700 800 Other: Voiding Method External Catheter GENERAL: The patient is sitting on a [place] and is not in acute distress. NEUROLOGICAL: Limited. Higher mental function: The patient is awake, alert, oriented to self and place. He correctly stated the current year but for the most he stated and it's July. Patient is following simple commands. No aphasia and no neglect. Cranial nerves: Visual barajas are full to confrontation throughout. FThe facial strength is normal throughout. Tongue is midline and moved [id number] without any difficulty. No dysarthria is noted. Motor: The strength is hard to assess individual muscle strength. But lifting all extremities above gravity without focality. . Cerebellum: Normal finger to nose bilaterally. No resting tremor. Sensation: Sensation is normal to touch throughout. Results - Laboratory Findings CBC and BMP: 02/23/23 12:55 02/23/23 12:55 Abnormal Lab Findings: Abnormal Labs 02/23/23 02/23/23 02/23/23 12:55 12:55 12:55 RBC 3.48 L Hgb 11.7 L Hct 34.9 L MCV 100.4 H Plt Count 87 L APTT 21.3 L Sodium 136 L BUN 37 H Glucose 109 H POC Glucose (mg/dL) Hemoglobin A1c Magnesium 2.6 H 02/23/23 02/24/23 02/24/23 21:34 04:03 12:09 RBC Hgb Hct MCV Plt Count APTT Sodium BUN Glucose POC Glucose (mg/dL) 168 H 164 H Hemoglobin A1c 7.3 H Magnesium Assessment and Plan Assessment: This is a 62-year-old gentleman with history with multiple medical issues who presents because of worsening of his falls. Per the as she stated that the patient has been falling in the last 1 year but got worse and in the last couple weeks, has memory loss and the last 10 years, urinary incontinence in the last 6 month. Further he shuffles when he walks Patient has history of stroke with multiple TIAs, seizure, has a pain pump. I personally reviewed the CT of the head and I felt the patient had the dilated ventricles suggestive of hydrocephalus concerning for normal pressure hydrocephalus. Recurrent falls in association with the urinary incontinence and memory loss is concerning for normal pressure hydrocephalus (CT I felt dilated ventricles in associated to his atrophy). I feel his recurrent falls could be also due to other factors such as diabetic neuropathy as well as his memory loss with the polypharmacy Memory loss/cognitive impairment for the last 10 years seems due to multifactorial: Stroke, seizure with multiple TIAs, cirrhosis from hepatitis C is/alcohol use. Per he is been having memory loss for the last 10 years History of stroke and is seems the right frontal encephalomalacia History of multiple TIAs History of seizure History of cervical and lower back pain status post pain pump History of cirrhosis from hepatitis C and the chronic alcohol use History of essential tremor Diabetes mellitus Plan: Patient is in the process of getting MRI of the brain at his neurologist office as an outpatient (follows-up with Dr. Levy's N.P. but is pending insurance authorization. Patient cannot obtain MRI in our facility because of the pain pump. Once MRI Brain is completed and negative explaining hydrocephalus. recommend a large volume As an outpatient and if there is an improvement then consider [employer] shunts and follow-up with a neurosurgeon as an outpatient Recommend the patient to have his pain pump looked into as an outpatient by his neurologist. I ordered TSH, CK level, myoglobin, folate. Ordered orthostatic vitals to assess if the patient having any orthostatic hypotension that can lead to falls especially with history of diabetes I ordered a routine EEG to rule out any underlying seizure or discharges. Patient is on home medication of Vimpat 200 mg twice a day as well as Keppra 500 mg 1 tablet twice a day. Patient is also on Lyrica 100 mg twice a day it's home medication likely for neuropathy He is on primidone 50 mg daily likely for the essential tremor. We'll defer the rest of the medical management to primary team I'll discharge recommend the patient to follow-up with his neurologist as an outpatient within 1-2 weeks. Plan discussed with the patient's was at bedside as well as nursing Thank you for consultation Time with Patient: Greater than 30
[2023-02-24 17:49] LABS: Glucose,Whole Blood 124 mg/dL (70-110)
[2023-02-24 20:49] LABS: Glucose,Whole Blood 252 mg/dL (70-110)
[2023-02-24] MEDS: ALBUTEROL NEBULIZED 2.5 MG/3 ML INHALATION PRN (21:38)
[2023-02-24] MEDS: HYDROMORPHONE INJ SCH (21:50)
[2023-02-24] MEDS: LACTULOSE 20 GM/30 ML CUP PO SCH (21:53)
[2023-02-24 22:30] LABS: Creatine Kinase 528 U/L (35-257)
--- NOTE | 2023-02-24 23:05 | P.HPIM ---
History of Present Illness H&P Date: 02/24/23 Chief Complaint: falls Sukh Zamarripa is a 62 yo M with PMH of CVA, seizure disorder, chronic back and neck pain, presence of intrathecal pain pump, cirrhosis, T2DM, major depression, essential tremor who was brought to the ED by his for increasing weakness and falls. He complains of gradual worsening of his weakness and is now at the point where he is falling frequently at home. On the day of admission he fell and could not bring himself back up so brought the pt to the ED. He has been following with Neurology as an outpatient and has MRI ordered. On presentation vitals and labs are reviewed. CT head no acute process. Review of Systems All systems: negative Constitutional: Denies chills, Denies fever Eyes: denies blurred vision, denies pain Ears, nose, mouth and throat: Denies headache, Denies sore throat Cardiovascular: Denies chest pain, Denies shortness of breath Respiratory: Denies cough Gastrointestinal: Denies abdominal pain, Denies diarrhea, Denies nausea, Denies vomiting Musculoskeletal: Reports frequent falls, Reports muscle weakness, Denies myalgias Integumentary: Denies pruritus, Denies rash Neurological: Denies numbness, Denies weakness Psychiatric: Denies anxiety, Denies depression Endocrine: Denies fatigue, Denies weight change Past Medical History Past Medical History: COPD, CVA/TIA, Diabetes Mellitus, Hyperlipidemia, Hypertension, Memory Impairment, Myocardial Infarction ([place]), Prostate Disorder, Seizure Disorder, Skin Disorder Additional Past Medical History / Comment(s): duodenal ulcer, pain and numbness cyrus legs and feet,pain pump in back, anemia. TIA X3, HEPATITIS C PAST HISTORY, LAST SEIZURE 2012,hiatal hernia Last Myocardial Infarction Date:: POSSIBLE [place] 2012 History of Any Multi-Drug Resistant Organisms: None Reported Past Surgical History: Appendectomy, Back Surgery, Heart Catheterization, Orthopedic Surgery Additional Past Surgical History / Comment(s): titanium lyn in lt leg, skin graph to rt 1st and middle finger, lt eardum replaced, cyrus. foot surgery to arch, cataract surgery bilateral with implant,skin graft left leg Past Anesthesia/Blood Transfusion Reactions: No Reported Reaction Past Psychological History: Anxiety, Depression Additional Psychological History / Comment(s): past history of depression Smoking Status: Former smoker Past Alcohol Use History: None Reported Additional Past Alcohol Use History / Comment(s): Pt started smoking in 1974 and is a 1-2ppd smoker Past Drug Use History: None Reported - Past Family History Mother Family Medical History: Diabetes Mellitus, Pulmonary Embolus Father Additional Family Medical History / Comment(s): Father had pain problems/hallucinations. He committed suicide. Medications and Allergies Home Medications Medication Instructions Recorded Confirmed Type Triamterene-Hctz 37.5-25Mg 1 tab PO DAILY 04/04/20 02/23/23 History [Maxzide 37.5-25] Valsartan [Diovan] 160 mg PO BID 04/04/20 02/23/23 History Albuterol Sulfate [Proair Hfa] 2 puff INHALATION RT-QID PRN 10/22/20 02/23/23 History Budesonide-Formot 160-4.5 Mcg 2 puff INHALATION RT-BID 10/22/20 02/23/23 History [Symbicort 160-4.5 Mcg Inhaler] Glimepiride [Amaryl] 4 mg PO BID 10/22/20 02/23/23 History Insulin Glargine,Hum.rec.anlog 60 unit SQ DAILY 10/22/20 02/23/23 History [Lantus Solostar Pen] Lacosamide [Vimpat] 200 mg PO BID 10/22/20 02/23/23 History Pregabalin [Lyrica] 100 mg PO BID 10/22/20 02/23/23 History Ferrous Sulfate [Iron (65 MG 325 mg PO DAILY 12/10/20 02/23/23 History Elemental)] Hydromorphone Pain Pump 1 dose INTRATHECA CONTINUOUS 02/05/21 02/23/23 History Clopidogrel [Plavix] 75 mg PO DAILY 06/30/21 02/23/23 History HYDROcodone/APAP 10-325MG [[place] 1 tab PO BID PRN 06/30/21 02/23/23 History 10-325] Primidone [Mysoline] 50 mg PO DAILY 06/30/21 02/23/23 History Dulaglutide [Trulicity] 3 mg SQ SA 07/23/22 02/23/23 History Rosuvastatin Calcium [Crestor] 40 mg PO DAILY 07/23/22 02/23/23 History metFORMIN HCL ER [Glucophage XR] 1,000 mg PO BID 07/23/22 02/23/23 History ARIPiprazole [Abilify] 10 mg PO DAILY 02/23/23 02/23/23 History ARIPiprazole [Abilify] 20 mg PO DAILY 02/23/23 02/23/23 History Escitalopram [Lexapro] 20 mg PO DAILY 02/23/23 02/23/23 History amLODIPine [Norvasc] 2.5 mg PO DAILY 02/23/23 02/23/23 History levETIRAcetam [Keppra] 500 mg PO BID 02/23/23 02/23/23 History Lactulose 30 gm PO TID 02/24/23 02/24/23 History Allergies Allergy/AdvReac Type Severity Reaction Status Date / Time morphine AdvReac Nausea & Verified 02/23/23 17:03 Vomiting Physical Exam Vitals: Vital Signs Temp Pulse Pulse Resp BP Pulse Ox 02/24/23 21:47 84 02/24/23 21:38 88 02/24/23 19:52 98.9 F 52 L 16 109/64 92 L 02/24/23 14:22 98.5 F 60 18 144/53 91 L 02/24/23 08:00 97.7 F 50 L 16 153/74 96 02/24/23 02:29 98.4 F 02/24/23 01:04 100.1 F H 56 L 18 118/69 93 L Intake and Output 02/24/23 02/24/23 02/24/23 06:59 14:59 22:59 Intake Total 600 Output Total 700 800 Balance -700 -200 Intake: Oral 600 Output: Urine 700 800 Other: Voiding Method External Catheter Gen: well developed, well nourished, NAD HEENT: NC/AT, mmm Neck: supple, no JVD or thyromegaly CV: RRR, no murmur Lungs: Normal effort, clear throughout Abd: soft, nontender, non distended Neuro: AAOx3, no focal deficit Skin: warm and dry Results CBC & Chem 7: 02/23/23 12:55 02/23/23 12:55 Labs: Abnormal Lab Results - Last 24 Hours (Table) 02/24/23 02/24/23 02/24/23 Range/Units 04:03 09:22 12:09 POC Glucose (mg/dL) 164 H (70-110) mg/dL Hemoglobin A1c 7.3 H (<=6.0) % Creatine Kinase (35-257) U/L Procalcitonin 0.12 H (0.02-0.09) ng/mL 02/24/23 02/24/23 02/24/23 Range/Units 16:34 17:48 20:45 POC Glucose (mg/dL) 124 H 252 H (70-110) mg/dL Hemoglobin A1c (<=6.0) % Creatine Kinase 528 H (35-257) U/L Procalcitonin (0.02-0.09) ng/mL Assessment and Plan Plan: Generalized weakness and falls. Consider deconditioning vs medication side effect vs other. Neurology consult. PT and OT to evaluate Seizure disorder. Continue keppra T2DM. Accucheck and sliding scale insulin. Cirrhosis. Ammonia 11 on admission. Continue lactulose Hx CVA. Continue lipitor, plavix Major depression. Continue lexapro, abilify
[2023-02-25] MEDS: ACETAMINOPHEN TAB 325 MG TAB PO PRN ×2 (02:28→20:38)
[2023-02-25 07:14] LABS: Glucose,Whole Blood 87 mg/dL (70-110)
--- NOTE | 2023-02-25 08:44 | P.DS ---
Providers Date of admission: 02/23/23 17:06 Expected date of discharge: 02/25/23 Attending physician: Dmitriy Liu MD Consults: 02/24/23 14:45 Consult Physician Routine Consulting Provider: Umair Torres Consult Reason/Comments: neuro eval Do you want consulting provider notified?: Yes Primary care physician: Dmitriy Liu MD Hospital Course: Sukh Zamarripa is a 62 yo M with PMH of CVA, seizure disorder, chronic back and neck pain, presence of intrathecal pain pump, cirrhosis, T2DM, major depression, essential tremor who was brought to the ED by his for increasin g weakness and falls. He complains of gradual worsening of his weakness and is now at the point where he is falling frequently at home. On the day of admission he fell and could not bring himself back up so brought the pt to the ED. He has been following with Neurology as an outpatient and has MRI ordered. On presentation vitals and labs are reviewed. CT head no acute process. Pt admitted to observation and evaluated by Neurology. His CT was reviewed and pt additionally noted with urinary incontinence over the past few weeks. He was evaluated by PT and OT and recommended subacute rehab for strengthening. His weakness was felt to be multifactorial due to deconditioning and concern for normal pressure hydrocephalus. He is discharged to subacute rehab in stable condition and recommended to follow up with his Neurologist as an outpatient for MRI brain. Plan - Discharge Summary Discharge Rx Participant: No New Discharge Prescriptions: Continue Valsartan [Diovan] 160 mg PO BID Triamterene-Hctz 37.5-25Mg [Maxzide 37.5-25] 1 tab PO DAILY Albuterol Sulfate [Proair Hfa] 2 puff INHALATION RT-QID PRN PRN Reason: Shortness Of Breath Glimepiride [Amaryl] 4 mg PO BID Lacosamide [Vimpat] 200 mg PO BID Pregabalin [Lyrica] 100 mg PO BID Ferrous Sulfate [Iron (65 MG Elemental)] 325 mg PO DAILY Hydromorphone Pain Pump 1 dose INTRATHECA CONTINUOUS HYDROcodone/APAP 10-325MG [[place] 10-325] 1 tab PO BID PRN PRN Reason: Pain Primidone [Mysoline] 50 mg PO DAILY Dulaglutide [Trulicity] 3 mg SQ SA levETIRAcetam [Keppra] 500 mg PO BID ARIPiprazole [Abilify] 10 mg PO DAILY Budesonide-Formot 160-4.5 Mcg [Symbicort 160-4.5 Mcg Inhaler] 2 puff INHALATION RT-BID Insulin Glargine,Hum.rec.anlog [Lantus Solostar Pen] 60 unit SQ DAILY Clopidogrel [Plavix] 75 mg PO DAILY Rosuvastatin Calcium [Crestor] 40 mg PO DAILY metFORMIN HCL ER [Glucophage XR] 1,000 mg PO BID Escitalopram [Lexapro] 20 mg PO DAILY ARIPiprazole [Abilify] 20 mg PO DAILY amLODIPine [Norvasc] 2.5 mg PO DAILY Lactulose 30 gm PO TID Discharge Medication List Triamterene-Hctz 37.5-25Mg [Maxzide 37.5-25] 1 tab PO DAILY 04/04/20 [History] Valsartan [Diovan] 160 mg PO BID 04/04/20 [History] Albuterol Sulfate [Proair Hfa] 2 puff INHALATION RT-QID PRN 10/22/20 [History] Budesonide-Formot 160-4.5 Mcg [Symbicort 160-4.5 Mcg Inhaler] 2 puff INHALATION RT-BID 10/22/20 [History] Glimepiride [Amaryl] 4 mg PO BID 10/22/20 [History] Insulin Glargine,Hum.rec.anlog [Lantus Solostar Pen] 60 unit SQ DAILY 10/22/20 [History] Lacosamide [Vimpat] 200 mg PO BID 10/22/20 [History] Pregabalin [Lyrica] 100 mg PO BID 10/22/20 [History] Ferrous Sulfate [Iron (65 MG Elemental)] 325 mg PO DAILY 12/10/20 [History] Hydromorphone Pain Pump 1 dose INTRATHECA CONTINUOUS 02/05/21 [History] Clopidogrel [Plavix] 75 mg PO DAILY 06/30/21 [History] HYDROcodone/APAP 10-325MG [[place] 10-325] 1 tab PO BID PRN 06/30/21 [History] Primidone [Mysoline] 50 mg PO DAILY 06/30/21 [History] Dulaglutide [Trulicity] 3 mg SQ SA 07/23/22 [History] Rosuvastatin Calcium [Crestor] 40 mg PO DAILY 07/23/22 [History] metFORMIN HCL ER [Glucophage XR] 1,000 mg PO BID 07/23/22 [History] ARIPiprazole [Abilify] 10 mg PO DAILY 02/23/23 [History] ARIPiprazole [Abilify] 20 mg PO DAILY 02/23/23 [History] Escitalopram [Lexapro] 20 mg PO DAILY 02/23/23 [History] amLODIPine [Norvasc] 2.5 mg PO DAILY 02/23/23 [History] levETIRAcetam [Keppra] 500 mg PO BID 02/23/23 [History] Lactulose 30 gm PO TID 02/24/23 [History] Follow up Appointment(s)/Referral(s): Dmitriy Liu MD [Primary Care Provider] - 1-2 days [facility], [NON-STAFF] - 1 Week Discharge Disposition: TRANSFER TO SNF/ECF
[2023-02-25] MEDS: LACOSAMIDE 50 MG TABLET PO SCH ×2 (11:56→20:28)
[2023-02-25] MEDS: TRIAMTERENE-HCTZ 37.5-25MG 1 EACH TAB PO SCH (11:58)
[2023-02-25] MEDS: CLOPIDOGREL 75 MG TAB PO SCH (11:58)
[2023-02-25] MEDS: VALSARTAN 160 MG TAB PO SCH ×2 (11:59→20:28)
[2023-02-25] MEDS: ATORVASTATIN 80 MG TAB PO SCH (11:59)
[2023-02-25] MEDS: LACTULOSE 20 GM/30 ML CUP PO SCH ×3 (12:00→20:30)
[2023-02-25] MEDS: amLODIPine 2.5 MG TAB PO SCH (12:12)
[2023-02-25] MEDS: ESCITALOPRAM 20 MG TAB PO SCH (12:13)
[2023-02-25] MEDS: levETIRAcetam 500 MG TAB PO SCH ×2 (12:13→20:29)
[2023-02-25] MEDS: PRIMIDONE 50 MG TAB PO SCH (12:13)
[2023-02-25] MEDS: PREGABALIN 100 MG CAP PO SCH ×2 (12:13→20:29)
[2023-02-25] MEDS: INSULIN ASPART (NovoLOG) 100 UNIT/ML VIAL SQ SCH ×4 (12:15→21:03)
[2023-02-25] MEDS: ARIPiprazole 10 MG TAB PO SCH (12:16)
[2023-02-25 12:27] LABS: Glucose,Whole Blood 118 mg/dL (70-110)
[2023-02-25] MEDS: ALBUTEROL NEBULIZED 2.5 MG/3 ML INHALATION PRN ×2 (12:31→20:13)
[2023-02-25] MEDS: INSULIN DETEMIR (LEVEMIR) 100 UNIT/ML SYR SQ SCH (13:02)
--- NOTE | 2023-02-25 14:25 | P.PN ---
Subjective Progress Note Date: 02/25/23 I am following up with patient and he was walking with physical therapy. He feels he is doing well. Objective - Vital Signs Vital signs: Vital Signs Temp 98.1 F 02/25/23 12:36 Pulse 56 L 02/25/23 12:40 Resp 20 02/25/23 12:36 BP 122/62 02/25/23 12:36 Pulse Ox 93 L 02/25/23 12:36 FiO2 Intake & Output 02/24/23 02/25/23 02/25/23 18:59 06:59 18:59 Intake Total 600 Output Total 800 800 Balance -200 -800 Intake: Oral 600 Output: Urine 800 800 Other: Voiding Method External Catheter External Catheter External Catheter # Bowel Movements 2 - Exam GENERAL: The patient is walking with therapy and is not in acute distress. NEUROLOGICAL: Limited. Higher mental function: The patient is awake, alert, oriented to self and place. He is slow responding to questions. Patient is following simple commands. No aphasia and no neglect. Cranial nerves: Visual barajas are full to confrontation throughout. No facial weakness. Tongue is midline and moved [id number] without any difficulty. No dysarthria is noted. Motor: Gait is taking wide small steps using a walker and had to be reminded that to stay within the walker and keep walking. The strength is 5/5 throughout. Some other workup during his hospital visit consisted of: Ammonia level is 11 Hemoglobin A1c 7.3. AST of 51 ALT of 32. CK level is 528 (normal is 35-257) TSH: 1.34 HbA1c: 7.[address] of the head is reported as age-related atrophy and chronic small vessel ischemic change without acute intracranial process seen at this time. I personally reviewed the CT of the head and the she has encephalomalacia over the right frontal region. I feel there is a component of hydrocephalus in which the third ventricle and lateral ventricles and somewhat fourth ventricle is more dilated the then the patient atrophy. This is concerning for normal pressure hydrocephalus CT cervical spine is reported as no evidence of for acute fracture or subluxation of cervical spine. - Labs CBC & Chem 7: 02/23/23 12:55 02/23/23 12:55 Labs: Abnormal Lab Results - Last 24 Hours (Table) 02/24/23 02/24/23 02/24/23 Range/Units 09:22 16:34 17:48 POC Glucose (mg/dL) 124 H (70-110) mg/dL Creatine Kinase 528 H (35-257) U/L Procalcitonin 0.12 H (0.02-0.09) ng/mL 02/24/23 02/25/23 Range/Units 20:45 12:26 POC Glucose (mg/dL) 252 H 118 H (70-110) mg/dL Creatine Kinase (35-257) U/L Procalcitonin (0.02-0.09) ng/mL Assessment and Plan Assessment: This is a 62-year-old gentleman with history with multiple medical issues who presents because of worsening of his falls. Per the as she stated that the patient has been falling in the last 1 year but got worse and in the last couple weeks, has memory loss and the last 10 years, urinary incontinence in the last 6 month. Further he shuffles when he walks Patient has history of stroke with multiple TIAs, seizure, has a pain pump. I personally reviewed the CT of the head and I felt the patient had the dilated ventricles suggestive of hydrocephalus concerning for normal pressure hydrocephalus. Recurrent falls in association with the urinary incontinence and memory loss is concerning for normal pressure hydrocephalus (CT I felt dilated ventricles in associated to his atrophy). I feel his recurrent falls could be also due to other factors such as diabetic neuropathy as well as his memory loss with the polypharmacy Memory loss/cognitive impairment for the last 10 years seems due to multifactorial: Stroke, seizure with multiple TIAs, cirrhosis from hepatitis C is/alcohol use. Per he is been having memory loss for the last 10 years History of stroke and is seems the right frontal encephalomalacia History of multiple TIAs History of seizure History of cervical and lower back pain status post pain pump History of cirrhosis from hepatitis C and the chronic alcohol use History of essential tremor Diabetes mellitus Plan: Patient is in the process of getting MRI of the brain at his neurologist office as an outpatient (follows-up with Dr. Levy's N.P. but is pending insurance authorization. Patient cannot obtain MRI in our facility because of the pain pump. Once MRI Brain is completed and negative explaining hydrocephalus. recommend a large volume As an outpatient and if there is an improvement then consider INS[employer] shunts and follow-up with a neurosurgeon as an outpatient Recommend the patient to have his pain pump looked into as an outpatient by his neurologist. Pending myoglobin level. Ordered orthostatic vitals to assess if the patient having any orthostatic h ypotension that can lead to falls especially with history of diabetes Pending routine EEG to rule out any underlying seizure or discharges. Patient is on home medication of Vimpat 200 mg twice a day as well as Keppra 500 mg 1 tablet twice a day. Patient is also on Lyrica 100 mg twice a day it's home medication likely for neuropathy He is on primidone 50 mg daily likely for the essential tremor. Patient was instructed that he needs to use a walker at home (he denies using any assistance at home even with multiple falls). We'll defer the rest of the medical management to primary team I'll discharge recommend the patient to follow-up with his neurologist (Dr. Levy's N.P.) as an outpatient within 1-2 weeks. Time with Patient: Less than 30
[2023-02-25 17:36] LABS: Glucose,Whole Blood 178 mg/dL (70-110)
--- NOTE | 2023-02-25 19:43 | EEG ---
ELECTROENCEPHALOGRAM REPORT CLINICAL HISTORY: This is a 62-year-old gentleman with history of stroke and seizure with recurrent falls at home. The video EEG is obtained to evaluate for seizure and epileptiform activity. RELEVANT MEDICATIONS: 1. Keppra. 2. Vimpat. EEG TYPE: A routine 21-channel EEG with video using the 10/20 electrode placement system is used. DESCRIPTION: Wakefulness is only obtained. During awake state, the posterior-dominant rhythm consists of [id number] voltage of 6 to 7 Hz activity, that is well modulated and well sustained. There is no physiological stage II sleep architecture. There is no focal slowing. INTERICTAL AND ICTAL: None. ACTIVATION PROCEDURE: Photic stimulation did not evoke a posterior driving response. There is no abnormality during the photic stimulation. Hyperventilation is not performed. CLINICAL INTERPRETATION: This is an abnormal routine EEG. The background slowing is suggestive of mild encephalopathy. Otherwise, there is no focal slowing, epileptiform discharge, or seizure on the EEG. Clinical correlation is recommended. MAXINE / AURORAN: [id number] / KULDIP
[2023-02-25 20:52] LABS: Glucose,Whole Blood 188 mg/dL (70-110)
[2023-02-25] MEDS ORDERED: ARIPiprazole 10 MG TAB PO SCH (21:00)
[2023-02-25] MEDS: HYDROMORPHONE INJ SCH (22:09)
[2023-02-26 07:08] LABS: Glucose,Whole Blood 137 mg/dL (70-110)
[2023-02-26 07:49] VITALS: RESP 16
[2023-02-26] MEDS: ALBUTEROL NEBULIZED 2.5 MG/3 ML INHALATION PRN ×2 (08:07→11:21)
[2023-02-26] MEDS: INSULIN ASPART (NovoLOG) 100 UNIT/ML VIAL SQ SCH ×2 (08:13→12:45)
[2023-02-26] MEDS: INSULIN DETEMIR (LEVEMIR) 100 UNIT/ML SYR SQ SCH (08:49)
[2023-02-26] MEDS: LACOSAMIDE 50 MG TABLET PO SCH (11:30)
[2023-02-26] MEDS: ATORVASTATIN 80 MG TAB PO SCH (11:31)
[2023-02-26] MEDS: TRIAMTERENE-HCTZ 37.5-25MG 1 EACH TAB PO SCH (11:31)
[2023-02-26] MEDS: LACTULOSE 20 GM/30 ML CUP PO SCH (11:31)
[2023-02-26] MEDS: VALSARTAN 160 MG TAB PO SCH (11:31)
[2023-02-26] MEDS: CLOPIDOGREL 75 MG TAB PO SCH (11:31)
[2023-02-26 11:49] LABS: Glucose,Whole Blood 168 mg/dL (70-110)
[2023-02-26] MEDS: amLODIPine 2.5 MG TAB PO SCH (11:52)
[2023-02-26] MEDS: PRIMIDONE 50 MG TAB PO SCH (11:52)
[2023-02-26] MEDS: levETIRAcetam 500 MG TAB PO SCH (11:52)
[2023-02-26] MEDS: ESCITALOPRAM 20 MG TAB PO SCH (11:52)
[2023-02-26] MEDS: PREGABALIN 100 MG CAP PO SCH (11:52)
[2023-02-26 15:26] VITALS: PULSE 58
[2023-02-26 15:27] VITALS: BP 100/62
[2023-02-26 15:32] VITALS: TEMP 98.2
== END 2023-02-26 14:49 ==
LOC: EC 11:49 → INTOOBSV 17:06 → 5NMEDONC 17:06
PROVIDERS: ADMIT Family Medicine; ATTEND Family Medicine
DX: R53.1 Weakness (principal); R29.6 Repeated falls; J44.9 Chronic obstructive pulmonary disease, unspecified; E11.9 Type 2 diabetes mellitus without complications; E78.5 Hyperlipidemia, unspecified; I10 Essential (primary) hypertension; F32.9 Major depressive disorder, single episode, unspecified; F41.9 Anxiety disorder, unspecified; G89.4 Chronic pain syndrome; M54.2 Cervicalgia; M54.50 Low back pain, unspecified; K74.60 Unspecified cirrhosis of liver; G40.909 Epilepsy, unspecified, not intractable, without status epilepticus; I25.2 Old myocardial infarction; Z20.822 Contact with and (suspected) exposure to COVID-19; Z87.891 Personal history of nicotine dependence; Z86.19 Personal history of other infectious and parasitic diseases; Z86.73 Personal history of transient ischemic attack (TIA), and cerebral infarction without residual deficits; Z79.82 Long term (current) use of aspirin; Z79.899 Other long term (current) drug therapy; Z79.51 Long term (current) use of inhaled steroids; Z79.84 Long term (current) use of oral hypoglycemic drugs; Z79.4 Long term (current) use of insulin; Z79.02 Long term (current) use of antithrombotics/antiplatelets; Z79.85 Long-term (current) use of injectable non-insulin antidiabetic drugs; Z88.5 Allergy status to narcotic agent
CPT/HCPCS: 96372 ×3; 99285; 36415; 94640 ×5; 95816; 97530 ×2; 97162; 97166; 80053; 84443; 82140; 82550; 82746; 83605; 83735; 84484; 85025; 85610; 85730; 81003; 83036; 84145; 83874; 87635; 71046; 72125; 70486; 70450; G0378 ×4

== ENCOUNTER 2023-03-06 18:40 | Inpatient (IN) | payer OTHER ==
[2023-03-06] MEDS ORDERED: SODIUM CHLORIDE 0.9% 1,000 ML IV STA (18:55)
[2023-03-06] MEDS ORDERED: IPRATROPIUM-ALBUTEROL 3 ML NEB INHALATION STA (18:57)
--- NOTE | 2023-03-06 19:02 | ED ---
Altered Mental Status HPI - General Chief Complaint: Altered Mental Status Stated Complaint: SOB Time Seen by Provider: 03/06/23 18:40 Source: EMS, RN notes reviewed, old records reviewed Mode of arrival: EMS Limitations: no limitations - History of Present Illness Initial Comments: 62-year-old male brought in by EMS history of CVA seizures disorder chronic back and neck pain COPD diabetes hypertension memory impairment [place] who apparently was alert and oriented 4 up until this morning was found have a fever shortness breath a pulse ox in the mid to upper 80s no reports of prior fevers chills sweats nausea or vomiting. Patient does also have a history of hepatitis C in the past with cirrhosis per history. No trauma reported. MD Complaint: altered mental status, weakness, other - Related Data Home Medications Medication Instructions Recorded Confirmed Triamterene-Hctz 37.5-25Mg 1 tab PO DAILY 04/04/20 02/23/23 [Maxzide 37.5-25] Valsartan [Diovan] 160 mg PO BID 04/04/20 02/23/23 Albuterol Sulfate [Proair Hfa] 2 puff INHALATION RT-QID PRN 10/22/20 02/23/23 Budesonide-Formot 160-4.5 Mcg 2 puff INHALATION RT-BID 10/22/20 02/23/23 [Symbicort 160-4.5 Mcg Inhaler] Glimepiride [Amaryl] 4 mg PO BID 10/22/20 02/23/23 Insulin Glargine,Hum.rec.anlog 60 unit SQ DAILY 10/22/20 02/23/23 [Lantus Solostar Pen] Lacosamide [Vimpat] 200 mg PO BID 10/22/20 02/23/23 Pregabalin [Lyrica] 100 mg PO BID 10/22/20 02/23/23 Ferrous Sulfate [Iron (65 MG 325 mg PO DAILY 12/10/20 02/23/23 Elemental)] Hydromorphone Pain Pump 1 dose INTRATHECA CONTINUOUS 02/05/21 02/23/23 Clopidogrel [Plavix] 75 mg PO DAILY 06/30/21 02/23/23 HYDROcodone/APAP 10-325MG [[place] 1 tab PO BID PRN 06/30/21 02/23/23 10-325] Primidone [Mysoline] 50 mg PO DAILY 06/30/21 02/23/23 Dulaglutide [Trulicity] 3 mg SQ SA 07/23/22 02/23/23 Rosuvastatin Calcium [Crestor] 40 mg PO DAILY 07/23/22 02/23/23 metFORMIN HCL ER [Glucophage XR] 1,000 mg PO BID 07/23/22 02/23/23 ARIPiprazole [Abilify] 10 mg PO DAILY 02/23/23 02/23/23 ARIPiprazole [Abilify] 20 mg PO DAILY 02/23/23 02/23/23 Escitalopram [Lexapro] 20 mg PO DAILY 02/23/23 02/23/23 amLODIPine [Norvasc] 2.5 mg PO DAILY 02/23/23 02/23/23 levETIRAcetam [Keppra] 500 mg PO BID 02/23/23 02/23/23 Lactulose 30 gm PO TID 02/24/23 02/24/23 Allergies Allergy/AdvReac Type Severity Reaction Status Date / Time morphine AdvReac Nausea & Verified 02/23/23 17:03 Vomiting Review of Systems ROS Statement: Those systems with pertinent positive or pertinent negative responses have been documented in the HPI. ROS Other: All systems not noted in ROS Statement are negative. Past Medical History Past Medical History: COPD, CVA/TIA, Diabetes Mellitus, Hyperlipidemia, Hypertension, Memory Impairment, Myocardial Infarction (CO), Prostate Disorder, Seizure Disorder, Skin Disorder Additional Past Medical History / Comment(s): duodenal ulcer, pain and numbness cyrus legs and feet,pain pump in back, anemia. TIA X3, HEPATITIS C PAST HISTORY, LAST SEIZURE 2012,hiatal hernia Last Myocardial Infarction Date:: POSSIBLE [place] 2012 History of Any Multi-Drug Resistant Organisms: None Reported Past Surgical History: Appendectomy, Back Surgery, Heart Catheterization, Orthopedic Surgery Additional Past Surgical History / Comment(s): titanium lyn in lt leg, skin graph to rt 1st and middle finger, lt eardum replaced, cyrus. foot surgery to arch, cataract surgery bilateral with implant,skin graft left leg Past Anesthesia/Blood Transfusion Reactions: No Reported Reaction Past Psychological History: Anxiety, Depression Smoking Status: Former smoker Past Alcohol Use History: None Reported Past Drug Use History: None Reported - Past Family History Mother Family Medical History: Diabetes Mellitus, Pulmonary Embolus Father Additional Family Medical History / Comment(s): Father had pain problems/hallucinations. He committed suicide. General Exam - General Exam Comments Initial Comments: This is a well-developed well-nourished awake lethargic male he is able to respond to questions. He does demonstrate audible rhonchi and some mouth breathing Limitations: no limitations General appearance: alert, lethargic Head exam: Present: atraumatic, normocephalic, normal inspection Eye exam: Present: normal appearance, PERRL, EOMI. Absent: scleral icterus, conjunctival injection, periorbital swelling ENT exam: Present: mucous membranes dry Neck exam: Present: normal inspection, full ROM, other (No stridor JVD or bruits). Absent: tenderness, meningismus, lymphadenopathy Respiratory exam: Present: rhonchi, decreased breath sounds, other (Approximately 24 breaths per minute) Cardiovascular Exam: Present: regular rate, normal rhythm, normal heart sounds. Absent: systolic murmur, diastolic murmur, rubs, gallop, clicks GI/Abdominal exam: Present: soft, normal bowel sounds. Absent: distended, tenderness, guarding, rebound, rigid Rectal exam: Present: deferred Extremities exam: Present: full ROM, normal capillary refill, other (This is a dermatitis with evidence of a skin graft to left lower extremity no evidence of any infectious process). Absent: tenderness, pedal edema, joint swelling, calf tenderness Back exam: Present: normal inspection Neurological exam: Present: alert, altered, CN II-XII intact Psychiatric exam: Present: normal mood, flat affect Skin exam: Present: warm, dry, intact. Absent: rash Course Vital Signs 03/06/23 03/06/23 03/06/23 18:42 19:00 20:00 Temperature 101.1 F H Pulse Rate 71 72 Respiratory 24 26 H Rate Blood Pressure 102/67 113/98 O2 Sat by Pulse 91 L 93 L 93 L Oximetry 03/06/23 03/06/23 20:12 20:19 Temperature Pulse Rate 75 80 Respiratory Rate Blood Pressure O2 Sat by Pulse Oximetry Medical Decision Making - Medical Decision Making I did discuss the findings with the patient family members patient does demonstrate findings consistent with pneumonitis as well as COPD exacerbation lab work does show increased creatinine and CO2 renal insufficiency as well as evidence of dehydration along with his fever. Covid testing negative. Was pt. sent in by a medical professional or institution (, [facility], MEDICAL RECEPTION SPECIALIST, urgent care, hospital, or [facility]...) When possible be specific @ -No Did you speak to anyone other than the patient for history (EMS, parent, family, police, friend...)? What history was obtained from this source @ -EMS as well as family members later Did you review nursing and triage notes (agree or disagree)? Why? @ -I reviewed and agree with nursing and triage notes Were old charts reviewed (outside hosp., previous admission, EMS record, old EKG, old radiological studies, urgent care reports/EKG's, [facility] records)? Report findings @ -intermediate old charts were reviewed Differential Diagnosis (chest pain, altered mental status, abdominal pain women, abdominal pain men, vaginal bleeding, weakness, fever, dyspnea, syncope, headache, dizziness, GI bleed, back pain, seizure, CVA, palpatations, mental health, musculoskeletal)? @ -[place], CHF, COPD exacerbation and fever. EKG showed normal sinus rhythm a 74 this was interpreted by me ventricular rate 74 ME interval 132 QRS duration 106 QT since QTC 391/14 EKG interpreted by me (3pts min.). @ -As above X-rays interpreted by me (1pt min.). @ -Interpreted by me increased pulmonary vascular markings noted definitive focal consolidations appreciated at this time CT interpreted by me (1pt min.). @ -None done U/S interpreted by me (1pt. min.). @ -None done What testing was considered but not performed or refused? (CT, X-rays, U/S, labs)? Why? @ -None What meds were considered but not given or refused? Why? @ -None Did you discuss the management of the patient with other professionals (professionals i.e. , JOSEPHINE, MEDICAL RECEPTION SPECIALIST, lab, RT, psych nurse, social and political studies professor, picker box operator, teacher, animal services officer, case liner)? Give summary @ - Sheet Was smoking cessation discussed for >3mins.? @ -No Was critical care preformed (if so, how long)? @ -No Were there social determinants of health that impacted care today? How? (Homelessness, low income, unemployed, alcoholism, drug addiction, transportation, low edu. Level, literacy, decrease access to med. care, [facility], rehab)? @ -Patient is a [facility] patient Was there de-escalation of care discussed even if they declined (Discuss DNR or withdrawal of care, Hospice)? DNR status @ -No What co-morbidities impacted this encounter? (DM, HTN, Smoking, COPD, CAD, Cancer, CVA, ARF, Chemo, Hep., AIDS, mental health diagnosis, sleep apnea, morbid obesity)? @ -COPD, CVA Was patient admitted / discharged? Hospital course, mention meds given and route, prescriptions, significant lab abnormalities, going to OR and other pertinent info. @ -hospital course H was admitted for inpatient treatment Dr. Klein will be consulted. Patient was started on Zosyn. Undiagnosed new problem with uncertain prognosis? @ -Pneumonitis Drug Therapy requiring intensive monitoring for toxicity (Heparin, Nitro, Insulin, Cardizem)? @ -No Were any procedures done? @ -No Diagnosis/symptom? @ -Acute pneumonitis, dyspnea, febrile illness, COPD exacerbation, acute renal insufficiency, dehydration Acute, or Chronic, or Acute on Chronic? @ -Acute Uncomplicated (without systemic symptoms) or Complicated (systemic symptoms)? @ -Complicated Side effects of treatment? @ -No Exacerbation, Progression, or Severe Exacerbation? @ -No Poses a threat to life or bodily function? How? (Chest pain, [place], [place], pneumonia, PE, COPD, DKA, ARF, appy, cholecystitis, CVA, Diverticulitis, Homicidal, Suicidal, threat to staff... and all critical care pts) @ -Pneumonitis, COPD - Lab Data Result diagrams: 03/06/23 19:13 03/06/23 19:13 Lab Results 03/06/23 03/06/23 03/06/23 Range/Units 19:13 19:13 19:13 WBC 8.0 (3.8-10.6) k/uL RBC 3.59 L (4.30-5.90) m/uL Hgb 12.0 L (13.0-17.5) gm/dL Hct 36.1 L (39.0-53.0) % MCV 100.5 H (80.0-100.0) fL MCH 33.3 (25.0-35.0) pg MCHC 33.1 (31.0-37.0) g/dL RDW 13.9 (11.5-15.5) % MPV 8.0 Macrocytosis Slight PT 10.7 (9.0-12.0) sec INR 1.0 (<1.2) APTT 22.8 (22.0-30.0) sec Sodium 136 L (137-145) mmol/L Potassium 5.6 H (3.5-5.1) mmol/L Chloride 106 (98-107) mmol/L Carbon Dioxide 22 (22-30) mmol/L Anion Gap 8 mmol/L BUN 49 H (9-20) mg/dL Creatinine 2.09 H (0.66-1.25) mg/dL Est GFR (CKD-EPI)AfAm 38 (>60 ml/min/1.73 sqM) Est GFR (CKD-EPI)NonAf 33 (>60 ml/min/1.73 sqM) Glucose 168 H (74-99) mg/dL Calcium 9.0 (8.4-10.2) mg/dL Total Bilirubin 0.6 (0.2-1.3) mg/dL AST 36 (17-59) U/L ALT 27 (4-49) U/L Alkaline Phosphatase 76 (38-126) U/L Ammonia (<30) umol/L Troponin I (0.000-0.034) ng/mL Total Protein 7.3 (6.3-8.2) g/dL Albumin 3.9 (3.5-5.0) g/dL Serum Alcohol <10 mg/dL Influenza Type A (PCR) (Not Detectd) Influenza Type B (PCR) (Not Detectd) RSV (PCR) (Not Detectd) SARS-CoV-2 (PCR) (Not Detectd) 03/06/23 03/06/23 03/06/23 Range/Units 19:13 19:13 19:13 WBC (3.8-10.6) k/uL RBC (4.30-5.90) m/uL Hgb (13.0-17.5) gm/dL Hct (39.0-53.0) % MCV (80.0-100.0) fL MCH (25.0-35.0) pg MCHC (31.0-37.0) g/dL RDW (11.5-15.5) % MPV Macrocytosis PT (9.0-12.0) sec INR (<1.2) APTT (22.0-30.0) sec Sodium (137-145) mmol/L Potassium (3.5-5.1) mmol/L Chloride (98-107) mmol/L Carbon Dioxide (22-30) mmol/L Anion Gap mmol/L BUN (9-20) mg/dL Creatinine (0.66-1.25) mg/dL Est GFR (CKD-EPI)AfAm (>60 ml/min/1.73 sqM) Est GFR (CKD-EPI)NonAf (>60 ml/min/1.73 sqM) Glucose (74-99) mg/dL Calcium (8.4-10.2) mg/dL Total Bilirubin (0.2-1.3) mg/dL AST (17-59) U/L ALT (4-49) U/L Alkaline Phosphatase (38-126) U/L Ammonia 12 (<30) umol/L Troponin I <0.012 (0.000-0.034) ng/mL Total Protein (6.3-8.2) g/dL Albumin (3.5-5.0) g/dL Serum Alcohol mg/dL Influenza Type A (PCR) Not Detected (Not Detectd) Influenza Type B (PCR) Not Detected (Not Detectd) RSV (PCR) Not Detected (Not Detectd) SARS-CoV-2 (PCR) Not Detected (Not Detectd) - EKG Data -: EKG Interpreted by Me EKG Comments: EKG interpreted by me normal sinus rhythm at 74. Interval 132 QRS duration 106 QT since QTC 391/418. ST-T wave changes - Radiology Data Interpreted by me: X-rays interpreted by me no definitive evidence of consolidation however there is some evidence of increased pulmonary vascular markings. Disposition Clinical Impression: Febrile illness, acute, Pneumonitis, COPD exacerbation, Dehydration, Acute renal insufficiency Disposition: ADMITTED IP TO THIS HOSP Condition: Fair Referrals: Dmitriy Liu MD [Primary Care Provider] - 1-2 days Decision Date: 03/06/23 Decision Time: 21:12
--- NOTE | 2023-03-06 19:41 | XR ---
EXAMINATION TYPE: XR chest 2V DATE OF EXAM: 03/06/2023 7:29 PM CLINICAL INDICATION:Male, 62 years old with history of altered mental status; COMPARISON: Chest radiographs from 02/23/2023 TECHNIQUE: XR chest 2V Frontal and lateral views of the chest. FINDINGS: Lungs/Pleura: There is no evidence of pleural effusion, focal consolidation, or pneumothorax. Pulmonary vascularity: Unremarkable. Heart/mediastinum: Cardiomediastinal silhouette is unremarkable. Musculoskeletal: No acute osseous pathology. IMPRESSION: Low lung volumes with a generalized hazy appearance which could represent atelectasis versus pulmonar y edema correlate with serum BNP.
[2023-03-06 20:03] LABS: ALT 27 U/L (4-49); AST 36 U/L (17-59); African American GFR (CKD) 38 (>60 ml/min/1.73 sqM); Albumin 3.9 g/dL (3.5-5.0); Alcohol <10 mg/dL; Alkaline Phosphatase 76 U/L (38-126); Anion Gap 8 mmol/L; Blood Urea Nitrogen 49 mg/dL (9-20); Carbon Dioxide 22 mmol/L (22-30); Chloride 106 mmol/L (98-107); Glucose 168 mg/dL (74-99); Non-African American GFR(CKD) 33 (>60 ml/min/1.73 sqM); Potassium 5.6 mmol/L (3.5-5.1); Sodium 136 mmol/L (137-145); Total Bilirubin 0.6 mg/dL (0.2-1.3); Total Protein 7.3 g/dL (6.3-8.2)
[2023-03-06 20:14] LABS: Basophils % (A) 0 %; Eosinophils % (A) 0 %; HCT 36.1 % (39.0-53.0); Lymphocytes # (A) 1.1 k/uL (1.0-4.8); Lymphocytes % (A) 13 %; MCH 33.3 pg (25.0-35.0); MCHC 33.1 g/dL (31.0-37.0); MCV 100.5 fL (80.0-100.0); Macrocytosis Slight; Monocytes # (A) 0.5 k/uL (0-1.0); Monocytes % (A) 6 %; Neutrophils # (A) 6.2 k/uL (1.3-7.7); Neutrophils % (A) 78 %; RBC 3.59 m/uL (4.30-5.90); RDW 13.9 % (11.5-15.5)
[2023-03-06 20:18] LABS: Partial Thromboplastin Time 22.8 sec (22.0-30.0); Prothrombin Time 10.7 sec (9.0-12.0)
[2023-03-06] MEDS ORDERED: PIPERACILLIN-TAZOBACTAM 3.375 GM in SODIUM CHLORIDE 0.9% 100 ML IVPB STA (21:03)
[2023-03-06] MEDS ORDERED: PNEUMONIA PROTOCOL UTILIZED 1 EACH MISC PO PRN (21:12)
[2023-03-06 21:13] LABS: Platelet Count 76 k/uL (150-450)
[2023-03-06] MEDS ORDERED: methylPREDNISolone SOD SUCCI 125 MG/2 ML VIAL IV STA (21:15)
[2023-03-06] MEDS ORDERED: HYDROcodone/APAP 10-325MG 1 EACH TAB PO PRN (21:15)
[2023-03-06] MEDS: SODIUM CHLORIDE 0.9% 1,000 ML IV SCH (21:21)
--- NOTE | 2023-03-06 21:32 | CT ---
EXAMINATION TYPE: CT brain wo con CT DLP: 1202.5 mGycm, Automated exposure control for dose reduction was used. DATE OF EXAM: 03/06/2023 9:17 PM COMPARISON: 02/23/2023. CLINICAL INDICATION:Male, 62 years old with history of Altered mental status, AMS TECHNIQUE: Brain: Axial CT images of the brain were obtained with coronal and sagittal reformats created and rev iewed. Contrast used: None. Oral contrast used: None. FINDINGS: Brain: Extra-axial spaces: No abnormal extra-axial fluid collections. Ventricular system: Dilatation in proportion to cerebral atrophy. Cerebral parenchyma: Remote right frontal lobe injury. Cerebral atrophy. No acute intraparenchymal he morrhage or mass effect. The brooks-white junction is well differentiated. Scattered hypoattenuating a reas are seen within the white matter. Cerebellum: Unremarkable. Mass effect: No evidence of midline shift. Intracranial vasculature: Atherosclerotic calcifications of the intracranial vessels. Soft tissues: Normal. Calvarium/osseous structures: No depressed skull fracture. Paranasal sinuses and mastoid air cells: Mild scattered paranasal sinus disease. Visualized orbits: Bilaterally aphakia. IMPRESSION: 1. No acute intracranial process. 2. Nonspecific white matter changes, likely secondary to chronic small vessel ischemic disease. 3. Remote right frontal lobe injury.
[2023-03-06] MEDS ORDERED: SODIUM CHLORIDE 0.9% 500 ML 500 ML IV ONE (21:36)
[2023-03-06] MEDS ORDERED: ACETAMINOPHEN TAB 325 MG TAB PO STA (22:16)
[2023-03-06] MEDS: LACTULOSE 20 GM/30 ML CUP PO SCH (22:43)
[2023-03-07] MEDS ORDERED: FUROSEMIDE 10 MG/ML 4 ML VIAL IV STA (00:12)
[2023-03-07 00:13] LABS: Glucose,Whole Blood 239 mg/dL (70-110)
--- NOTE | 2023-03-07 04:59 | XR ---
EXAM: XR Chest, 1 View CLINICAL HISTORY: Resp distress TECHNIQUE: Frontal view of the chest. COMPARISON: 03/06/2023. FINDINGS: Heart is enlarged. Hypoventilation with bibasilar atelectasis. No definite CHF. No pleural effusion or pneumothorax. Bones are unchanged. IMPRESSION: Hypoventilation with bibasilar atelectasis.
[2023-03-07 05:00] LABS: Basophils % (A) 0 %; Eosinophils % (A) 0 %; HCT 34.8 % (39.0-53.0); HGB 11.5 gm/dL (13.0-17.5); Lymphocytes # (A) 0.4 k/uL (1.0-4.8); Lymphocytes % (A) 7 %; MCH 33.6 pg (25.0-35.0); MCHC 32.9 g/dL (31.0-37.0); MCV 101.9 fL (80.0-100.0); Macrocytosis Slight; Monocytes # (A) 0.2 k/uL (0-1.0); Monocytes % (A) 3 %; Neutrophils # (A) 4.8 k/uL (1.3-7.7); Neutrophils % (A) 89 %; RBC 3.42 m/uL (4.30-5.90); WBC 5.3 k/uL (3.8-10.6)
[2023-03-07 05:02] LABS: Platelet Count 77 k/uL (150-450)
[2023-03-07 05:15] LABS: African American GFR (CKD) 43 (>60 ml/min/1.73 sqM); Anion Gap 11 mmol/L; Blood Urea Nitrogen 50 mg/dL (9-20); Calcium 8.7 mg/dL (8.4-10.2); Carbon Dioxide 20 mmol/L (22-30); Chloride 108 mmol/L (98-107); Glucose 240 mg/dL (74-99); Non-African American GFR(CKD) 37 (>60 ml/min/1.73 sqM); Potassium 4.8 mmol/L (3.5-5.1); Sodium 139 mmol/L (137-145)
[2023-03-07] MEDS: PIPERACILLIN-TAZOBACTAM 3.375 GM in SODIUM CHLORIDE 0.9% 100 ML IVPB SCH ×3 (06:55→21:00)
[2023-03-07] MEDS: INSULIN DETEMIR (LEVEMIR) 100 UNIT/ML SYR SQ SCH (06:55)
[2023-03-07] MEDS: SODIUM CHLORIDE 0.9% 1,000 ML IV SCH ×2 (06:56→22:38)
--- NOTE | 2023-03-07 07:04 | XR ---
EXAMINATION TYPE: XR chest 1V DATE OF EXAM: 03/07/2023 CLINICAL HISTORY: Difficulty breathing and pneumonia progress study. TECHNIQUE: Single AP portable upright view of the chest is obtained. COMPARISON: Chest x-ray from earlier today and older studies FINDINGS: Low lung volumes redemonstrated. Bibasilar opacities again seen. Stable mild cardiomegaly. Osseous structures are intact. IMPRESSION: Low lung volumes and mild cardiomegaly with bibasilar atelectasis and/or acute infiltrate s. No significant change from most recent study.
[2023-03-07] MEDS: IPRATROPIUM-ALBUTEROL 3 ML NEB INHALATION PRN ×4 (08:07→20:05)
[2023-03-07 08:18] LABS: Appearance,Urine Clear (Clear); Bilirubin,Urine Negative (Negative); Blood,Urine Negative (Negative); Color,Urine Colorless; Glucose,Urine (UA) Negative (Negative); Ketones,Urine Negative (Negative); Leukocyte Esterase,Urine Negative (Negative); Nitrite,Urine Negative (Negative); Protein,Urine Negative (Negative); Specific Gravity,Urine 1.013 (1.001-1.035); Urobilinogen,Urine <2.0 mg/dL (<2.0)
[2023-03-07] MEDS ORDERED: TRIAMTERENE-HCTZ 37.5-25MG 1 EACH TAB PO SCH (09:00)
[2023-03-07] MEDS ORDERED: metFORMIN 500 MG TAB PO SCH (09:00)
[2023-03-07] MEDS ORDERED: GLIMEPIRIDE 4 MG TAB PO SCH (09:00)
[2023-03-07] MEDS ORDERED: VALSARTAN 160 MG TAB PO SCH (09:00)
[2023-03-07] MEDS ORDERED: amLODIPine 2.5 MG TAB PO SCH (09:00)
[2023-03-07] MEDS: FERROUS SULFATE 325 MG TAB PO SCH (09:16)
[2023-03-07] MEDS: PRIMIDONE 50 MG TAB PO SCH (09:16)
[2023-03-07] MEDS: ATORVASTATIN 80 MG TAB PO SCH (09:16)
[2023-03-07] MEDS: ESCITALOPRAM 20 MG TAB PO SCH (09:16)
[2023-03-07] MEDS: PREGABALIN 100 MG CAP PO SCH ×2 (09:16→21:00)
[2023-03-07] MEDS: CLOPIDOGREL 75 MG TAB PO SCH (09:16)
[2023-03-07] MEDS: LACOSAMIDE 50 MG TABLET PO SCH ×2 (09:17→20:59)
[2023-03-07] MEDS: levETIRAcetam 500 MG TAB PO SCH ×2 (09:17→20:59)
[2023-03-07] MEDS: LACTULOSE 20 GM/30 ML CUP PO SCH ×3 (09:17→21:00)
--- NOTE | 2023-03-07 11:40 | P.CNPUL ---
History of Present Illness Consult date: 03/07/23 Requesting physician: Mark Child Reason for consult: dyspnea Chief complaint: Shortness of breath History of present illness: This is a 62-year-old male patient with a known history of CVA, seizures, chronic neck and back pain, hypertension, chronic obstructive pulmonary disease, diabetes mellitus, hyperlipidemia, memory impairment, hepatitis C, former smoker. He was recently discharged on 02/25/2023 for weakness and falls. He presented to the emergency room last evening with complaints of increasing shortness of breath and O2 saturations in the mid 80s. Chest x-ray reveals low lung volumes and mild cardiomegaly with bibasilar atelectasis and/or acute infiltrates. Computed tomography scan of the brain revealed no acute intracranial process. 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 White count 5.3. Hemoglobin 11.5. Platelets 77,000. Sodium 139. Potassium 4.8. Bicarb 20. BUN 50. Creatinine 1.90. Glucose 240. Urinalysis clean. Serum alcohol level less than 10. Influenza screen negative. RSV screen negative, COVID-19 screen negative. He is seen today in consultation on the selective care unit. Currently sitting up in bed. Awake. Alert. He is currently on 50% FiO2 via Ventimask with O2 saturations in the 90s. He is afebrile currently but did present with a T-max of 101.5. Hemodynamically stable. He's been initiated and DuoNeb inhalations. Normal saline and 100 ML's per hour. Antibiotics in the form of Zosyn. Review of Systems REVIEW OF SYSTEMS: CONSTITUTIONAL: Denies any recent significant weight loss or weight gain. EYES: Denies change in vision. EARS, NOSE, MOUTH, THROAT: Denies headaches, denies sore throat. CARDIOVASCULAR: Denies chest pain, palpitations or syncopal episodes. RESPIRATORY: Positive for shortness of breath, cough, congestion no hemoptysis. GASTROINTESTINAL: Denies change in appetite, denies abdominal pain GENITOURINARY: Denies hematuria, denies infections. MUSKULOSKELETAL: Denies pain, denies swelling. INTEGUMENTARY: Denies rash, denies eczema. NEUROLOGICAL: Denies recent memory loss, no recent seizure activity. PSYCHIATRIC: Denies anxiety, denies depression. HEMATOLOGIC/LYMPHATIC: Denies anemia, denies enlarged lymph nodes. Past Medical History Past Medical History: COPD, CVA/TIA, Diabetes Mellitus, Hyperlipidemia, Hypertension, Memory Impairment, Myocardial Infarction (MD), Prostate Disorder, Seizure Disorder, Skin Disorder Additional Past Medical History / Comment(s): duodenal ulcer, pain and numbness cyrus legs and feet,pain pump in back, anemia. TIA X3, HEPATITIS C PAST HISTORY, LAST SEIZURE 2012,hiatal hernia Last Myocardial Infarction Date:: POSSIBLE MD 2012 History of Any Multi-Drug Resistant Organisms: None Reported Past Surgical History: Appendectomy, Back Surgery, Heart Catheterization, Orthopedic Surgery Additional Past Surgical History / Comment(s): titanium lyn in lt leg, skin graph to rt 1st and middle finger, lt eardum replaced, cyrus. foot surgery to arch, cataract surgery bilateral with implant,skin graft left leg Past Anesthesia/Blood Transfusion Reactions: No Reported Reaction Past Psychological History: Anxiety, Depression Additional Psychological History / Comment(s): past history of depression Smoking Status: Former smoker Past Alcohol Use History: None Reported Additional Past Alcohol Use History / Comment(s): Pt started smoking in 1974 and is a 1-2ppd smoker Past Drug Use History: None Reported - Past Family History Mother Family Medical History: Diabetes Mellitus, Pulmonary Embolus Father Additional Family Medical History / Comment(s): Father had pain problems/hallucinations. He committed suicide. Medications and Allergies Home Medications Medication Instructions Recorded Confirmed Type Valsartan [Diovan] 160 mg PO BID 04/04/20 03/06/23 History Albuterol Sulfate [Proair Hfa] 2 puff INHALATION RT-QID PRN 10/22/20 03/06/23 History Budesonide-Formot 160-4.5 Mcg 2 puff INHALATION RT-BID 10/22/20 03/06/23 History [Symbicort 160-4.5 Mcg Inhaler] Glimepiride [Amaryl] 4 mg PO BID@0600,1700 10/22/20 03/06/23 History Insulin Glargine,Hum.rec.anlog 60 unit SQ DAILY 10/22/20 03/06/23 History [Lantus Solostar Pen] Lacosamide [Vimpat] 200 mg PO BID 10/22/20 03/06/23 History Ferrous Sulfate [Iron (65 MG 325 mg PO DAILY 12/10/20 03/06/23 History Elemental)] Clopidogrel [Plavix] 75 mg PO HS 06/30/21 03/06/23 History HYDROcodone/APAP 10-325MG [[place] 1 tab PO BID PRN 06/30/21 03/06/23 History 10-325] Primidone [Mysoline] 50 mg PO HS 06/30/21 03/06/23 History Dulaglutide [Trulicity] 3 mg SQ SA 07/23/22 03/06/23 History metFORMIN HCL ER [Glucophage XR] 1,000 mg PO BID@0600,1700 07/23/22 03/06/23 History ARIPiprazole [Abilify] 30 mg PO HS 02/23/23 03/06/23 History Escitalopram [Lexapro] 20 mg PO HS 02/23/23 03/06/23 History amLODIPine [Norvasc] 2.5 mg PO DAILY 02/23/23 03/06/23 History Lactulose 30 gm PO TID@0600,1400,2200 02/24/23 03/06/23 History Atorvastatin [Lipitor] 80 mg PO HS 03/06/23 03/06/23 History Dapagliflozin Propanediol [Farxiga] 5 mg PO DAILY 03/06/23 03/06/23 History Hydrocortisone Cream 1 applic TOPICAL BID 03/06/23 03/06/23 History [Hydrocortisone 1% Cream] Pregabalin [Lyrica] 50 mg PO BID 03/06/23 03/06/23 History levETIRAcetam [Keppra] 250 mg PO BID 03/06/23 03/06/23 History Allergies Allergy/AdvReac Type Severity Reaction Status Date / Time morphine AdvReac Nausea & Verified 03/06/23 21:24 Vomiting Physical Exam Vitals: Vital Signs Temp Pulse Pulse Resp BP BP Pulse Ox 03/07/23 11:14 74 03/07/23 09:35 98.2 F 66 16 136/61 95 03/07/23 08:25 68 03/07/23 08:09 65 97 03/07/23 06:00 62 03/07/23 04:00 99.1 F 62 20 121/69 93 L 03/07/23 02:00 76 20 109/56 94 L 03/06/23 23:58 70 03/06/23 23:57 100.1 F H 72 22 117/57 93 L 03/06/23 23:00 80 19 120/57 95 03/06/23 22:00 66 24 108/47 99 03/06/23 21:13 101.5 F H 03/06/23 21:00 65 30 H 87/48 100 03/06/23 20:19 80 03/06/23 20:12 75 03/06/23 20:00 72 26 H 113/98 93 L 03/06/23 19:00 93 L 03/06/23 18:42 101.1 F H 71 24 102/67 91 L FiO2 03/07/23 11:14 03/07/23 09:35 03/07/23 08:25 59 03/07/23 08:09 100 03/07/23 06:00 03/07/23 04:00 03/07/23 02:00 03/06/23 23:58 03/06/23 23:57 03/06/23 23:00 03/06/23 22:00 03/06/23 21:13 03/06/23 21:00 03/06/23 20:19 03/06/23 20:12 03/06/23 20:00 03/06/23 19:00 03/06/23 18:42 Intake and Output 03/06/23 03/07/23 03/07/23 22:59 06:59 14:59 Output Total 300 Balance -300 Output: Urine 300 Other: Voiding Method External Catheter External Catheter Weight 97.522 kg 97.5 kg GENERAL EXAM: Alert, pleasant 62-year-old male patient, somewhat of a poor historian, on Ventimask, comfortable in no apparent distress. HEAD: Normocephalic. EYES: Normal reaction of pupils, equal size. NOSE: Clear with pink turbinates. THROAT: No erythema or exudates. NECK: No masses, no JVD. CHEST: No chest wall deformity. LUNGS: Equal air entry with few scattered rhonchi. CVS: S1 and S2 normal with no audible murmur, regular rhythm. ABDOMEN: No hepatosplenomegaly, normal bowel sounds, no guarding or rigidity. SPINE: No scoliosis or deformity SKIN: No rashes CENTRAL NERVOUS SYSTEM: No focal deficits, tone is normal in all 4 extremities. EXTREMITIES: There is no peripheral edema. No clubbing, no cyanosis. Peripheral pulses are intact. Results - Laboratory Findings CBC and BMP: 03/07/23 04:38 03/07/23 04:38 PT/INR, D-dimer PT 10.7 sec (9.0-12.0) 03/06/23 19:13 INR 1.0 (<1.2) 03/06/23 19:13 Abnormal lab findings: Abnormal Labs 03/06/23 03/06/23 03/07/23 19:13 19:13 00:11 RBC 3.59 L Hgb 12.0 L Hct 36.1 L MCV 100.5 H Plt Count 76 L Lymphocytes # Sodium 136 L Potassium 5.6 H Chloride Carbon Dioxide BUN 49 H Creatinine 2.09 H Glucose 168 H POC Glucose (mg/dL) 239 H 03/07/23 03/07/23 04:38 04:38 RBC 3.42 L Hgb 11.5 L Hct 34.8 L MCV 101.9 H Plt Count 77 L Lymphocytes # 0.4 L Sodium Potassium Chloride 108 H Carbon Dioxide 20 L BUN 50 H Creatinine 1.90 H Glucose 240 H POC Glucose (mg/dL) - Diagnostic Findings Chest x-ray: image reviewed Assessment and Plan Assessment: Acute hypoxemic respiratory failure suspect secondary to possible healthcare acquired pneumonia. Pro-calcitonin pending. The patient was recently discharged for generalized weakness and falls to subacute rehabilitation Febrile illness secondary to above History of CVA History of seizure disorder Chronic neck and back pain with pain Former smoker Memory impairment Hypertension Diabetes mellitus, type II Hypertension Chronic obstructive pulmonary disease History of hepatitis C Anxiety/depression Plan: The patient was seen and evaluated Chest x-ray, CT brain, labs and medications reviewed Continue Zosyn, bronchodilators Check a pro-calcitonin Continue fluid resuscitation Titrate the FiO2 as tolerated We will continue to follow and make further recommendations based on his clinical status I have personally seen and examined the patient, performed the documentation and the assessment and plan as written. Number of minutes spent on the visit: 20.
--- NOTE | 2023-03-07 13:16 | P.HPIM ---
History of Present Illness H&P Date: 03/07/23 History of present illness; 62 yo M with PMH of CVA, seizure disorder, chronic back and neck pain, presence of intrathecal pain pump, cirrhosis, T2DM, major depression, essential tremor was brought to the ER for altered mental status and weakness. Patient was all right until this morning when patient started having fever. Patient also complaining of shortness of breath. No complain of chest pain. No complain of orthopnea or PND. Shortness of breath was present on rest. Denies any complain of swelling of feet. Because of shortness of breath, EMS was called, patient oxygen was found to be in mid to upper 80s. Patient was brought to the ER Initial lab work done in the ER showed WBC 8, hemoglobin 12, platelet count 76, sodium 136, potassium 5.6, BUN 49, creatinine 2.09 UA negative for UTI Influenza A and B- RSV negative COVID-19 negative EKG done in the ER showed heart rate of 74, QRS 106, no ST segment elevation or T-wave inversion seen Chest x-ray done in the ER showed low lung volumes which could represent atelectasis versus pulmonary edema CT brain negative for acute intrarenal process Patient admitted to medicine service REVIEW OF SYSTEMS: CONSTITUTIONAL: No fever, no malaise, no fatigue. HEENT: No recent visual problems or hearing problems. Denied any sore throat. CARDIOVASCULAR: As mentioned in HPI PULMONARY: As mentioned in HPI as Abdomen; no abdominal pain. NEUROLOGICAL: No headaches, no weakness, no numbness. HEMATOLOGICAL: Denies any bleeding or petechiae. GENITOURINARY: Denies any burning micturition, frequency, or urgency. MUSCULOSKELETAL/RHEUMATOLOGICAL: Denies any joint pain, swelling, or any muscle pain. ENDOCRINE: Denies any polyuria or polydipsia. The rest of the 14-point review of systems is negative. PHYSICAL EXAMINATION: GENERAL: The patient is alert and oriented x3, not in any acute distress. Well developed, well nourished. HEENT: Pupils are round and equally reacting to light. EOMI. No scleral icterus. No conjunctival pallor. Normocephalic, atraumatic. No pharyngeal erythema. No thyromegaly. CARDIOVASCULAR: S1 and S2 present. No murmurs, rubs, or gallops. PULMONARY: Diminished breath sounds at bases bilaterally, no wheeze, no rhonchi ABDOMEN: Soft, nontender, nondistended, normoactive bowel sounds. No palpable organomegaly. MUSCULOSKELETAL: No joint swelling or deformity. EXTREMITIES: No cyanosis, clubbing, or pedal edema. NEUROLOGICAL: Gross neurological examination did not reveal any focal deficits. SKIN: No rashes. Assessment and plan Acute hypoxic respiratory failure Acute metabolic encephalopathy Bacterial pneumonia Acute COPD exacerbation Cirrhosis Type diabetes mellitus seizure disorder History of CVA Major depression Monitor vital signs Monitor CBC Monitor CMP Continue telemetry monitoring Follow-up on blood cultures Continue IV Zosyn Continue breathing treatments Consult pulmonology Consulted ID Labs and medication were reviewed.. Continue same treatment. Continue with symptomatic treatment. Resume home medication. Monitor labs and vitals. DVT and GI prophylaxis. Further recommendations as per clinical course of the patie nt Dictation was produced using [employer] dictation software. please excuse any grammatical, word or spelling errors. Past Medical History Past Medical History: COPD, CVA/TIA, Diabetes Mellitus, Hyperlipidemia, Hypertension, Memory Impairment, Myocardial Infarction (DC), Prostate Disorder, Seizure Disorder, Skin Disorder Additional Past Medical History / Comment(s): duodenal ulcer, pain and numbness cyrus legs and feet,pain pump in back, anemia. TIA X3, HEPATITIS C PAST HISTORY, LAST SEIZURE 2012,hiatal hernia Last Myocardial Infarction Date:: POSSIBLE [place] 2012 History of Any Multi-Drug Resistant Organisms: None Reported Past Surgical History: Appendectomy, Back Surgery, Heart Catheterization, Orthopedic Surgery Additional Past Surgical History / Comment(s): titanium lyn in lt leg, skin graph to rt 1st and middle finger, lt eardum replaced, cyrus. foot surgery to arch, cataract surgery bilateral with implant,skin graft left leg Past Anesthesia/Blood Transfusion Reactions: No Reported Reaction Past Psychological History: Anxiety, Depression Additional Psychological History / Comment(s): past history of depression Smoking Status: Former smoker Past Alcohol Use History: None Reported Additional Past Alcohol Use History / Comment(s): Pt started smoking in 1974 and is a 1-2ppd smoker Past Drug Use History: None Reported - Past Family History Mother Family Medical History: Diabetes Mellitus, Pulmonary Embolus Father Additional Family Medical History / Comment(s): Father had pain problems/hallucinations. He committed suicide. Medications and Allergies Home Medications Medication Instructions Recorded Confirmed Type Valsartan [Diovan] 160 mg PO BID 04/04/20 03/06/23 History Albuterol Sulfate [Proair Hfa] 2 puff INHALATION RT-QID PRN 10/22/20 03/06/23 History Budesonide-Formot 160-4.5 Mcg 2 puff INHALATION RT-BID 10/22/20 03/06/23 History [Symbicort 160-4.5 Mcg Inhaler] Glimepiride [Amaryl] 4 mg PO BID@0600,1700 10/22/20 03/06/23 History Insulin Glargine,Hum.rec.anlog 60 unit SQ DAILY 10/22/20 03/06/23 History [Lantus Solostar Pen] Lacosamide [Vimpat] 200 mg PO BID 10/22/20 03/06/23 History Ferrous Sulfate [Iron (65 MG 325 mg PO DAILY 12/10/20 03/06/23 History Elemental)] Clopidogrel [Plavix] 75 mg PO HS 06/30/21 03/06/23 History HYDROcodone/APAP 10-325MG [[place] 1 tab PO BID PRN 06/30/21 03/06/23 History 10-325] Primidone [Mysoline] 50 mg PO HS 06/30/21 03/06/23 History Dulaglutide [Trulicity] 3 mg SQ SA 07/23/22 03/06/23 History metFORMIN HCL ER [Glucophage XR] 1,000 mg PO BID@0600,1700 07/23/22 03/06/23 History ARIPiprazole [Abilify] 30 mg PO HS 02/23/23 03/06/23 History Escitalopram [Lexapro] 20 mg PO HS 02/23/23 03/06/23 History amLODIPine [Norvasc] 2.5 mg PO DAILY 02/23/23 03/06/23 History Lactulose 30 gm PO TID@0600,1400,2200 02/24/23 03/06/23 History Atorvastatin [Lipitor] 80 mg PO HS 03/06/23 03/06/23 History Dapagliflozin Propanediol [Farxiga] 5 mg PO DAILY 03/06/23 03/06/23 History Hydrocortisone Cream 1 applic TOPICAL BID 03/06/23 03/06/23 History [Hydrocortisone 1% Cream] Pregabalin [Lyrica] 50 mg PO BID 03/06/23 03/06/23 History levETIRAcetam [Keppra] 250 mg PO BID 03/06/23 03/06/23 History Allergies Allergy/AdvReac Type Severity Reaction Status Date / Time morphine AdvReac Nausea & Verified 03/06/23 21:24 Vomiting Physical Exam Vitals: Vital Signs Temp Pulse Pulse Resp BP BP Pulse Ox 03/07/23 08:25 03/07/23 08:09 65 97 03/07/23 06:00 62 03/07/23 04:00 99.1 F 62 20 121/69 93 L 03/07/23 02:00 76 20 109/56 94 L 03/06/23 23:58 70 03/06/23 23:57 100.1 F H 72 22 117/57 93 L 03/06/23 23:00 80 19 120/57 95 03/06/23 22:00 66 24 108/47 99 03/06/23 21:13 101.5 F H 03/06/23 21:00 65 30 H 87/48 100 03/06/23 20:19 80 03/06/23 20:12 75 03/06/23 20:00 72 26 H 113/98 93 L 03/06/23 19:00 93 L 03/06/23 18:42 101.1 F H 71 24 102/67 91 L FiO2 03/07/23 08:25 59 03/07/23 08:09 100 03/07/23 06:00 03/07/23 04:00 03/07/23 02:00 03/06/23 23:58 03/06/23 23:57 03/06/23 23:00 03/06/23 22:00 03/06/23 21:13 03/06/23 21:00 03/06/23 20:19 03/06/23 20:12 03/06/23 20:00 03/06/23 19:00 03/06/23 18:42 Intake and Output 03/06/23 03/07/23 03/07/23 22:59 06:59 14:59 Output Total 300 Balance -300 Output: Urine 300 Other: Voiding Method External Catheter Weight 97.522 kg 97.5 kg Results CBC & Chem 7: 03/07/23 04:38 03/07/23 04:38 Labs: Abnormal Lab Results - Last 24 Hours (Table) 03/06/23 03/06/23 03/07/23 Range/Units 19:13 19:13 00:11 RBC 3.59 L (4.30-5.90) m/uL Hgb 12.0 L (13.0-17.5) gm/dL Hct 36.1 L (39.0-53.0) % MCV 100.5 H (80.0-100.0) fL Plt Count 76 L (150-450) k/uL Lymphocytes # (1.0-4.8) k/uL Sodium 136 L (137-145) mmol/L Potassium 5.6 H (3.5-5.1) mmol/L Chloride (98-107) mmol/L Carbon Dioxide (22-30) mmol/L BUN 49 H (9-20) mg/dL Creatinine 2.09 H (0.66-1.25) mg/dL Glucose 168 H (74-99) mg/dL POC Glucose (mg/dL) 239 H (70-110) mg/dL 03/07/23 03/07/23 Range/Units 04:38 04:38 RBC 3.42 L (4.30-5.90) m/uL Hgb 11.5 L (13.0-17.5) gm/dL Hct 34.8 L (39.0-53.0) % MCV 101.9 H (80.0-100.0) fL Plt Count 77 L (150-450) k/uL Lymphocytes # 0.4 L (1.0-4.8) k/uL Sodium (137-145) mmol/L Potassium (3.5-5.1) mmol/L Chloride 108 H (98-107) mmol/L Carbon Dioxide 20 L (22-30) mmol/L BUN 50 H (9-20) mg/dL Creatinine 1.90 H (0.66-1.25) mg/dL Glucose 240 H (74-99) mg/dL POC Glucose (mg/dL) (70-110) mg/dL Thrombosis Risk Factor Assmnt - Choose All That Apply Any of the Below Risk Factors Present?: Yes Each Factor Represents 1 point: Abnormal pulmonary function (COPD), Obesity (BMI >25), Serious lung disease incl. pneumonia (< 1month) Other Risk Factors: Yes Each Risk Factor Represents 2 Points: Age 61-74 years Other congenital or acquired thrombophilia - If yes, enter type in comment: No Thrombosis Risk Factor Assessment Total Risk Factor Score: 5 Thrombosis Risk Factor Assessment Level: High Risk
[2023-03-07 18:26] LABS: Urine Alcohol Negative (Negative); Urine Barbiturate Positive (Negative); Urine Cocaine Negative (Negative); Urine Methadone Negative (Negative); Urine Opiates Negative (Negative); Urine Phencyclidine Negative (Negative)
--- NOTE | 2023-03-07 23:09 | P.CONS ---
History of Present Illness - Reason for Consult Consult date: 03/07/23 Sepsis, fever Requesting physician: Alli Aquino - Chief Complaint Increasing shortness of breath x few days - History of Present Illness Patient is a 62-year-old male with a past medical history negative for diabetes mellitus hypertension hyperlipidemia ME seizure disorder and COPD presenting to the hospital for evaluation of fever increasing shortness of breath and also hypoxemia with O2 sats in the 80s. Patient symptom has been getting worse for the last day or 2 patient denies having any anticoagulants and denies any chest pain has been complaining of shortness of breath he also have a cough moderate intensity is bringing up some yellow sputum no hemoptysis. Denies any nausea noted no choking on the food no abdominal pain or diarrhea with this ever the patient has been evaluated on presentation the hospital he did have a fever of 101.1 degrees for night patient did not have significant tachycardia or hypotension patient was hypoxic with O2 sats in the 90-91 currently on 8 L high flow oxygen patient did have a normal white count BUN/creatinine has been elevated liver enzymes are normal urine is negative influenza RSV and COVID testing are negative patient did have a chest x-ray low lung volumes generalized hazy appearance could to present atelectasis versus pulmonary edema patient was started on Zosyn infectious disease was consulted for further management of antibiotic therapy Review of Systems Positive point and negatives has been mentioned in the HPI, complete review of systems was performed and all other systems are negative Past Medical History Past Medical History: COPD, CVA/TIA, Diabetes Mellitus, Hyperlipidemia, Hypertension, Memory Impairment, Myocardial Infarction (ME), Prostate Disorder, Seizure Disorder, Skin Disorder Additional Past Medical History / Comment(s): duodenal ulcer, pain and numbness cyrus legs and feet,pain pump in back, anemia. TIA X3, HEPATITIS C PAST HISTORY, LAST SEIZURE 2012,hiatal hernia Last Myocardial Infarction Date:: POSSIBLE ME 2012 History of Any Multi-Drug Resistant Organisms: None Reported Past Surgical History: Appendectomy, Back Surgery, Heart Catheterization, Orthopedic Surgery Additional Past Surgical History / Comment(s): titanium lyn in lt leg, skin graph to rt 1st and middle finger, lt eardum replaced, cyrus. foot surgery to arch, cataract surgery bilateral with implant,skin graft left leg Past Anesthesia/Blood Transfusion Reactions: No Reported Reaction Past Psychological History: Anxiety, Depression Additional Psychological History / Comment(s): past history of depression Smoking Status: Former smoker Past Alcohol Use History: None Reported Additional Past Alcohol Use History / Comment(s): Pt started smoking in 1974 and is a 1-2ppd smoker Past Drug Use History: None Reported - Past Family History Mother Family Medical History: Diabetes Mellitus, Pulmonary Embolus Father Additional Family Medical History / Comment(s): Father had pain problems/hallucinations. He committed suicide. Medications and Allergies Home Medications Medication Instructions Recorded Confirmed Type Albuterol Sulfate [Proair Hfa] 2 puff INHALATION RT-QID PRN 10/22/20 03/06/23 History Budesonide-Formot 160-4.5 Mcg 2 puff INHALATION RT-BID 10/22/20 03/06/23 History [Symbicort 160-4.5 Mcg Inhaler] Ferrous Sulfate [Iron (65 MG 325 mg PO DAILY 12/10/20 03/06/23 History Elemental)] Clopidogrel [Plavix] 75 mg PO HS 06/30/21 03/06/23 History Primidone [Mysoline] 50 mg PO HS 06/30/21 03/06/23 History Escitalopram [Lexapro] 20 mg PO HS 02/23/23 03/06/23 History Rosuvastatin Calcium [Crestor] 40 mg PO 03/14/23 History amLODIPine BESYLATE 2.5 mg PO BID 03/14/23 03/14/23 History Acetaminophen Tab [Tylenol] 325 mg PO Q6HR PRN tab 03/16/23 Rx Bisoprolol-Hctz 5-6.25 mg [Ziac 1 each PO DAILY tab 03/16/23 Rx 5-6.25 MG] Cefdinir [Omnicef] 300 mg PO BID 5 Days #10 cap 03/16/23 Rx INSULIN LISPRO (HumaLOG) [humaLOG] 0 unit SQ ACHS #10 ml 03/16/23 Rx Insulin Detemir (Levemir) [Levemir] 65 unit SQ DAILY@0700 each 03/16/23 Rx Ipratropium-Albuterol Nebulize 3 ml INHALATION RT-QID each 03/16/23 Rx [Duoneb 0.5 mg-3 mg/3 ml Soln] Lacosamide [Vimpat] 200 mg PO BID #6 tab 03/16/23 Rx Lactulose [Cephulac] 30 gm PO TID ml 03/16/23 Rx Allergies Allergy/AdvReac Type Severity Reaction Status Date / Time morphine AdvReac Nausea & Verified 03/06/23 21:24 Vomiting Physical Exam Vitals: Vital Signs Temp Pulse Pulse Resp BP BP Pulse Ox 03/07/23 08:25 03/07/23 08:09 65 97 03/07/23 06:00 62 03/07/23 04:00 99.1 F 62 20 121/69 93 L 03/07/23 02:00 76 20 109/56 94 L 03/06/23 23:58 70 03/06/23 23:57 100.1 F H 72 22 117/57 93 L 03/06/23 23:00 80 19 120/57 95 03/06/23 22:00 66 24 108/47 99 03/06/23 21:13 101.5 F H 03/06/23 21:00 65 30 H 87/48 100 03/06/23 20:19 80 03/06/23 20:12 75 03/06/23 20:00 72 26 H 113/98 93 L 03/06/23 19:00 93 L 03/06/23 18:42 101.1 F H 71 24 102/67 91 L FiO2 03/07/23 08:25 59 03/07/23 08:09 100 03/07/23 06:00 03/07/23 04:00 03/07/23 02:00 03/06/23 23:58 03/06/23 23:57 03/06/23 23:00 03/06/23 22:00 03/06/23 21:13 03/06/23 21:00 03/06/23 20:19 03/06/23 20:12 03/06/23 20:00 03/06/23 19:00 03/06/23 18:42 Intake and Output 03/06/23 03/07/23 03/07/23 22:59 06:59 14:59 Output Total 300 Balance -300 Output: Urine 300 Other: Voiding Method External Catheter Weight 97.522 kg 97.5 kg GENERAL DESCRIPTION: Middle-aged male lying in bed, no distress. No tachypnea or accessory muscle of respiration use. HEENT: Shows Pallor , no scleral icterus. Oral mucous membrane is dry. NECK: Trachea central, no thyromegaly. LUNGS: Unlabored breathing. Coarse breath sounds bilaterally weight and weighs HEART: S1, S2, regular rate and rhythm. No loud murmur ABDOMEN: Soft, no tenderness , guarding or rigidity, no organomegaly EXTREMITIES: No edema of feet. SKIN: No rash, no masses palpable. NEUROLOGICAL: The patient is lethargic but arousable Results CBC & Chem 7: 03/15/23 09:06 03/15/23 09:06 Labs: Abnormal Lab Results - Last 24 Hours (Table) 03/06/23 03/06/23 03/07/23 Range/Units 19:13 19:13 00:11 RBC 3.59 L (4.30-5.90) m/uL Hgb 12.0 L (13.0-17.5) gm/dL Hct 36.1 L (39.0-53.0) % MCV 100.5 H (80.0-100.0) fL Plt Count 76 L (150-450) k/uL Lymphocytes # (1.0-4.8) k/uL Sodium 136 L (137-145) mmol/L Potassium 5.6 H (3.5-5.1) mmol/L Chloride (98-107) mmol/L Carbon Dioxide (22-30) mmol/L BUN 49 H (9-20) mg/dL Creatinine 2.09 H (0.66-1.25) mg/dL Glucose 168 H (74-99) mg/dL POC Glucose (mg/dL) 239 H (70-110) mg/dL 03/07/23 03/07/23 Range/Units 04:38 04:38 RBC 3.42 L (4.30-5.90) m/uL Hgb 11.5 L (13.0-17.5) gm/dL Hct 34.8 L (39.0-53.0) % MCV 101.9 H (80.0-100.0) fL Plt Count 77 L (150-450) k/uL Lymphocytes # 0.4 L (1.0-4.8) k/uL Sodium (137-145) mmol/L Potassium (3.5-5.1) mmol/L Chloride 108 H (98-107) mmol/L Carbon Dioxide 20 L (22-30) mmol/L BUN 50 H (9-20) mg/dL Creatinine 1.90 H (0.66-1.25) mg/dL Glucose 240 H (74-99) mg/dL POC Glucose (mg/dL) (70-110) mg/dL Assessment and Plan (1) Pneumonia Status: Acute Code(s): J18.9 - PNEUMONIA, UNSPECIFIED ORGANISM SNOMED Code(s): 921246299 Plan: 1patient was in the hospital with increasing shortness of breath patient also was hypoxic did have a fever with generalized hazy appearance high clinical suspicious for pneumonia likely gram-negative 2-we will try to obtain a sputum for Gram stain culture and await procalcitonin level 3-patient to continue Zosyn 3.375 g every 8 hour while waiting for the culture to finalize We will follow on clinical condition and cultures to further adjust medication if needed Thank you for this consultation we will follow the patient along with you Dictation was produced using [employer] dictation software. please excuse any grammatical, word or spelling errors. Time with Patient: Greater than 30
[2023-03-08] MEDS: PIPERACILLIN-TAZOBACTAM 3.375 GM in SODIUM CHLORIDE 0.9% 100 ML IVPB SCH ×3 (06:22→20:55)
[2023-03-08] MEDS: SODIUM CHLORIDE 0.9% 1,000 ML IV SCH (06:23)
[2023-03-08] MEDS: INSULIN DETEMIR (LEVEMIR) 100 UNIT/ML SYR SQ SCH (06:24)
[2023-03-08] MEDS: IPRATROPIUM-ALBUTEROL 3 ML NEB INHALATION PRN ×3 (08:11→16:36)
[2023-03-08] MEDS: PRIMIDONE 50 MG TAB PO SCH (09:17)
[2023-03-08] MEDS: CLOPIDOGREL 75 MG TAB PO SCH (09:17)
[2023-03-08] MEDS: ATORVASTATIN 80 MG TAB PO SCH (09:17)
[2023-03-08] MEDS: PREGABALIN 100 MG CAP PO SCH ×2 (09:18→20:55)
[2023-03-08] MEDS: ESCITALOPRAM 20 MG TAB PO SCH (09:18)
[2023-03-08] MEDS: levETIRAcetam 500 MG TAB PO SCH ×2 (09:18→20:55)
[2023-03-08] MEDS: LACOSAMIDE 50 MG TABLET PO SCH ×2 (09:18→20:54)
[2023-03-08] MEDS: FERROUS SULFATE 325 MG TAB PO SCH (09:18)
[2023-03-08 11:24] LABS: Glucose,Whole Blood 230 mg/dL (70-110)
--- NOTE | 2023-03-08 12:05 | P.PN ---
Subjective Progress Note Date: 03/08/23 Principal diagnosis: Pneumonia Patient is a 62-year-old male with a past medical history negative for diabetes mellitus hypertension hyperlipidemia [place] seizure disorder and COPD presenting to the hospital for evaluation of fever increasing shortness of breath and also hypoxemia with O2 sats in the 80s, patient chest x-ray with low lung volumes denies hazy appearance concerning for possible gram-negative pneumonia. On today's evaluation that is 03/08/2023, the patient denies any fever or any chills, , the patient is breathing comfortably on 7 L nasal cannula oxygen, the patient denies chest pain and continues to have a cough and is bringing up some sputum, patient denies nausea or vomiting, the patient denies abdominal pain or diarrhea Patient white count of 5.3, crit is 1.90 as of yesterday blood draw from today's pending, sputum cultures pending Objective - Vital Signs Vital signs: Vital Signs Temp 98.5 F 03/08/23 12:00 Pulse 68 03/08/23 12:00 Resp 18 03/08/23 12:00 BP 129/60 03/08/23 12:00 Pulse Ox 98 03/08/23 12:00 FiO2 59 03/07/23 08:25 Intake & Output 03/07/23 03/08/23 03/08/23 18:59 06:59 18:59 Intake Total 540 118 Output Total 950 600 300 Balance -410 -600 -182 Intake: Oral 540 118 Output: Urine 950 600 300 Other: Voiding Method External Catheter External Catheter External Catheter # Bowel Movements 1 1 - Exam GENERAL DESCRIPTION: An elderly male lying in bed in no distress RESPIRATORY SYSTEM: Unlabored breathing , coarse breath sounds bilaterally HEART: S1 S2 regular rate and rhythm , ABDOMEN: Soft , no tenderness EXTREMITIES: No edema feet - Labs CBC & Chem 7: 03/07/23 04:38 03/07/23 04:38 Labs: Abnormal Lab Results - Last 24 Hours (Table) 03/07/23 03/07/23 03/08/23 Range/Units 04:38 07:15 11:23 POC Glucose (mg/dL) 230 H (70-110) mg/dL Procalcitonin 0.60 H (0.02-0.09) ng/mL Urine Barbiturates Positive A (Negative) Assessment and Plan (1) Pneumonia Current Visit: No Status: Acute Code(s): J18.9 - PNEUMONIA, UNSPECIFIED ORGANISM SNOMED Code(s): 917592788 Plan: 1patient was in the hospital with increasing shortness of breath patient also was hypoxic did have a fever with generalized hazy appearance high clinical suspicious for pneumonia likely gram-negative 2-sputum has been obtained culture results are currently pending, patient did have a procalcitonin level of 0.60 3-patient to continue Zosyn 3.375 g every 8 hour while waiting for the culture to finalize Dictation was produced using [employer] dictation software. please excuse any grammatical, word or spelling errors. Time with Patient: Less than 30
[2023-03-08] MEDS: LACTULOSE 20 GM/30 ML CUP PO SCH ×3 (12:54→20:55)
--- NOTE | 2023-03-08 13:47 | P.PN ---
Subjective Progress Note Date: 03/08/23 Principal diagnosis: Shortness of breath. This is a 62-year-old male patient with a known history of CVA, seizures, chronic neck and back pain, hypertension, chronic obstructive pulmonary disease, diabetes mellitus, hyperlipidemia, memory impairment, hepatitis C, former smoker. He was recently discharged on 02/25/2023 for weakness and falls. He presented to the emergency room last evening with complaints of increasing shortness of breath and O2 saturations in the mid 80s. Chest x-ray reveals low lung volumes and mild cardiomegaly with bibasilar atelectasis and/or acute infiltrates. Computed tomography scan of the brain revealed no acute intracranial process. 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 White count 5.3. Hemoglobin 11.5. Platelets 77,000. Sodium 139. Potassium 4.8. Bicarb 20. BUN 50. Creatinine 1.90. Glucose 240. Urinalysis clean. Serum alcohol level less than 10. Influenza screen negative. RSV screen negative, COVID-19 screen negative. He is seen today in consultation on the selective care unit. Currently sitting up in bed. Awake. Alert. He is currently on 50% FiO2 via Ventimask with O2 saturations in the 90s. He is afebrile currently but did present with a T-max of 101.5. Hemodynamically stable. He's been initiated and DuoNeb inhalations. Normal saline and 100 ML's per hour. Antibiotics in the form of Zosyn. Progress note dated 03/08/2023. 62-year-old male seen in consultation yesterday for shortness of breath, and low saturations. The patient has a history of CVA, seizures, chronic back pain, hypertension, COPD, diabetes, hyperlipidemia, memory impairment, and hepatitis C. The patient was a former smoker. Currently, the patient is on 8 L high flow nasal cannula. The patient's getting saline at 100 mL an hour. The patient's pro-calcitonin level was elevated at 0.60. The patient is currently on Zosyn. No new labs today. Blood cultures are currently negative. Yesterday's chest x- ray shows some cardiomegaly, and bibasilar atelectasis and/or infiltrates. The chest x-ray is largely unchanged. Objective - Vital Signs Vital signs: Vital Signs Temp 98.5 F 03/08/23 12:00 Pulse 68 03/08/23 13:07 Resp 18 03/08/23 13:07 BP 129/60 03/08/23 12:00 Pulse Ox 98 03/08/23 12:00 FiO2 59 03/07/23 08:25 Intake & Output 03/07/23 03/08/23 03/08/23 18:59 06:59 18:59 Intake Total 540 118 Output Total 950 600 300 Balance -410 -600 -182 Intake: Oral 540 118 Output: Urine 950 600 300 Other: Voiding Method External Catheter External Catheter External Catheter # Bowel Movements 1 1 - Exam No acute distress, oriented 3. No conversational dyspnea or use of accessory muscles. The patient's currently on 7 L high flow oxygen. HEENT examination is grossly unremarkable. Neck supple. Full range of motion. No adenopathy thyromegaly or neck vein distention. Cardiovascular examination reveals regular rhythm rate. S1-S2 normal. No S3 or S4. No discernible murmur noted. Heart sounds are distant. Heart rate 68 bpm. Lungs reveal scattered bilateral rhonchi. No wheezes or crackles. Breath sounds are equal bilaterally. Saturations are 98% on 7 L. Abdomen soft bowel sounds are heard. No masses or tenderness. Extremities are intact. No cyanosis clubbing or edema. Skin is without rash or lesion. Neurologic examination is brief but nonfocal. - Labs CBC & Chem 7: 03/07/23 04:38 03/07/23 04:38 Labs: Abnormal Lab Results - Last 24 Hours (Table) 03/07/23 03/07/23 03/08/23 Range/Units 04:38 07:15 11:23 POC Glucose (mg/dL) 230 H (70-110) mg/dL Procalcitonin 0.60 H (0.02-0.09) ng/mL Urine Barbiturates Positive A (Negative) Microbiology - Last 24 Hours (Table) 03/06/23 19:13 Blood Culture - Preliminary Blood 03/06/23 19:13 Blood Culture - Preliminary Blood Assessment and Plan Assessment: Acute hypoxemic respiratory failure, secondary to possible healthcare acquired pneumonia. Febrile illness secondary to above. History of CVA. History of seizure disorder. Chronic neck and back pain with pain. Former smoker. Memory impairment. Hypertension. Diabetes mellitus, type II. Hypertension. Chronic obstructive pulmonary disease. History of hepatitis C. Anxiety/depression. Plan: Plan dated 03/08/2023. The patient is seen and evaluated, and room 370. Labs, x-rays, and medications are reviewed. The patient continues on Zosyn. The patient's pro-calcitonin level is elevated, at 0.60. We will continue to follow the patient, and make recommendations along the way. The patient's overall prognosis remains guarded. Further recommendations to come. Time with Patient: Less than 30
[2023-03-08 16:26] LABS: Glucose,Whole Blood 186 mg/dL (70-110)
[2023-03-08] MEDS ORDERED: DEXTROSE 50% SYRINGE 50 ML IVP PRN ×2 (18:00)
[2023-03-08 20:14] LABS: Glucose,Whole Blood 190 mg/dL (70-110)
[2023-03-08] MEDS: INSULIN ASPART (NovoLOG) 100 UNIT/ML VIAL SQ SCH (20:55)
[2023-03-09] MEDS: PIPERACILLIN-TAZOBACTAM 3.375 GM in SODIUM CHLORIDE 0.9% 100 ML IVPB SCH ×3 (04:10→21:04)
[2023-03-09 05:52] LABS: Glucose,Whole Blood 141 mg/dL (70-110)
[2023-03-09] MEDS: INSULIN ASPART (NovoLOG) 100 UNIT/ML VIAL SQ SCH ×4 (06:07→21:02)
[2023-03-09] MEDS: INSULIN DETEMIR (LEVEMIR) 100 UNIT/ML SYR SQ SCH ×2 (06:08→06:33)
--- NOTE | 2023-03-09 08:08 | P.PN ---
Subjective Progress Note Date: 03/08/23 He is afebrile last 24 hours, remains on O2 at 5 LPM, continues to complain of cough and shortness of breath. He remains on zosyn, blood and sputum cultures negative at this point. Objective - Vital Signs Vital signs: Vital Signs Temp 98.4 F 03/09/23 04:00 Pulse 60 03/09/23 04:00 Resp 16 03/09/23 04:00 BP 128/72 03/09/23 04:00 Pulse Ox 96 03/09/23 07:47 FiO2 59 03/07/23 08:25 Intake & Output 03/08/23 03/09/23 03/09/23 18:59 06:59 18:59 Intake Total 598 Output Total 300 1200 Balance 298 -1200 Weight 99.5 kg Intake: Oral 598 Output: Urine 300 1200 Other: Voiding Method External Catheter External Catheter # Bowel Movements 1 - Exam Gen: well developed, well nourished, NAD CV: RRR, no murmur lungs: Wheezing throughout, no rales Neuro: AAOx3, no focal deficit - Labs CBC & Chem 7: 03/07/23 04:38 03/07/23 04:38 Labs: Abnormal Lab Results - Last 24 Hours (Table) 03/08/23 03/08/23 03/08/23 Range/Units 11:23 16:24 20:11 POC Glucose (mg/dL) 230 H 186 H 190 H (70-110) mg/dL 03/09/23 Range/Units 05:51 POC Glucose (mg/dL) 141 H (70-110) mg/dL Microbiology - Last 24 Hours (Table) 03/08/23 09:10 Gram Stain - Preliminary Sputum 03/06/23 19:13 Blood Culture - Preliminary Blood 03/06/23 19:13 Blood Culture - Preliminary Blood Assessment and Plan Plan: Continue with zosyn, supplemental O2 as required. Follow cultures. Pulmonology and ID following. Sliding scale insulin
[2023-03-09] MEDS: CLOPIDOGREL 75 MG TAB PO SCH (09:28)
[2023-03-09] MEDS: levETIRAcetam 500 MG TAB PO SCH ×2 (09:28→21:00)
[2023-03-09] MEDS: ESCITALOPRAM 20 MG TAB PO SCH (09:28)
[2023-03-09] MEDS: PRIMIDONE 50 MG TAB PO SCH (09:28)
[2023-03-09] MEDS: FERROUS SULFATE 325 MG TAB PO SCH (09:28)
[2023-03-09] MEDS: PREGABALIN 100 MG CAP PO SCH ×2 (09:28→21:00)
[2023-03-09] MEDS: ATORVASTATIN 80 MG TAB PO SCH (09:28)
[2023-03-09] MEDS: LACOSAMIDE 50 MG TABLET PO SCH ×2 (09:29→20:59)
[2023-03-09] MEDS: LACTULOSE 20 GM/30 ML CUP PO SCH ×3 (09:29→19:48)
[2023-03-09] MEDS: IPRATROPIUM-ALBUTEROL 3 ML NEB INHALATION PRN (10:57)
[2023-03-09] MEDS: IPRATROPIUM-ALBUTEROL 3 ML NEB INHALATION SCH ×3 (11:13→20:41)
[2023-03-09 11:49] LABS: Glucose,Whole Blood 112 mg/dL (70-110)
[2023-03-09] MEDS: SODIUM CHLORIDE 0.9% 1,000 ML IV SCH ×2 (11:55→12:32)
--- NOTE | 2023-03-09 14:12 | P.PN ---
Subjective Progress Note Date: 03/09/23 Principal diagnosis: Shortness of breath. This is a 62-year-old male patient with a known history of CVA, seizures, chronic neck and back pain, hypertension, chronic obstructive pulmonary disease, diabetes mellitus, hyperlipidemia, memory impairment, hepatitis C, former smoker. He was recently discharged on 02/25/2023 for weakness and falls. He presented to the emergency room last evening with complaints of increasing shortness of breath and O2 saturations in the mid 80s. Chest x-ray reveals low lung volumes and mild cardiomegaly with bibasilar atelectasis and/or acute infiltrates. Computed tomography scan of the brain revealed no acute intracranial process. 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 White count 5.3. Hemoglobin 11.5. Platelets 77,000. Sodium 139. Potassium 4.8. Bicarb 20. BUN 50. Creatinine 1.90. Glucose 240. Urinalysis clean. Serum alcohol level less than 10. Influenza screen negative. RSV screen negative, COVID-19 screen negative. He is seen today in consultation on the selective care unit. Currently sitting up in bed. Awake. Alert. He is currently on 50% FiO2 via Ventimask with O2 saturations in the 90s. He is afebrile currently but did present with a T-max of 101.5. Hemodynamically stable. He's been initiated and DuoNeb inhalations. Normal saline and 100 ML's per hour. Antibiotics in the form of Zosyn. Progress note dated 03/08/2023. I am seeing this patient in new consultation today 03/08/2023 for an acute COPD exacerbation. Patient is a 74-year-old male patient with a known history of chronic and ongoing tobacco dependence, marijuana use, chronic obstructive pulmonary disease, hyperlipidemia, hypertension, peripheral vascular occlusive disease with previous stent placement, coronary artery disease with previous stent placement, diverticulosis previous history of diverticulitis. He presented to the emergency room on March 06 with complaints of increasing shortness of breath, non-productive cough and congestion for approximate 2 weeks. chest x- ray reveals no acute cardiopulmonary process. We were not consulted until early this morning, the patient was in some respiratory distress and the BiPAP settings 10/5 and an FiO2 of 60%. He is very bronchospastic. He is currently on a combination of bronchodilators, Symbicort inhaler, and IV Solu-Medrol. ABG showed a pO2 of 100%, pCO2 44, pH is 7.38. CBC on arrival was unremarkable. No leukocytosis. Patient is afebrile. Negative for influenza, RSV, COVID-19. Most recent BMP was unremarkable. Troponins less than 0.012 3. Patient will be monitored on the cardiac stepdown unit. Currently, the patient is on 8 L high flow nasal cannula. The patient's getting saline at 100 mL an hour. The patient's pro-calcitonin level was elevated at 0.60. The patient is currently on Zosyn. No new labs today. Blood cultures are currently negative. Yesterday's chest x-ray shows some cardiomegaly, and bibasilar atelectasis and/or infiltrates. The chest x-ray is largely unchanged. Progress note dated 03/09/2023. 62-year-old male with a history of CVA, seizures, chronic neck and back pain, hypertension, COPD, diabetes, hyperlipidemia, memory impairment, hepatitis C, and previous heavy tobacco user. The patient recently presented to the hospital with shortness of breath, and saturations in the mid 80s. Chest x-ray showed evidence of low lung volumes, cardiomegaly, and bibasilar atelectasis or infiltrates. Currently, the patient is on 5 L nasal cannula. He is getting saline at 100 mL an hour. He appears to be doing a bit better. No new labs today. Sputum and blood sampling is negative. No recent chest x-ray to report. Objective - Vital Signs Vital signs: Vital Signs Temp 99.0 F 03/09/23 12:00 Pulse 76 03/09/23 12:00 Resp 18 03/09/23 12:00 BP 129/59 03/09/23 12:00 Pulse Ox 93 L 03/09/23 12:00 FiO2 59 03/07/23 08:25 Intake & Output 03/08/23 03/09/23 03/09/23 18:59 06:59 18:59 Intake Total 598 180 Output Total 300 1200 600 Balance 298 -1200 -420 Weight 99.5 kg Intake: Oral 598 180 Output: Urine 300 1200 600 Other: Voiding Method External Catheter External Catheter External Catheter # Bowel Movements 1 - Exam No acute distress, oriented 3. No conversational dyspnea or use of accessory muscles. The patient's currently on 5 L high flow oxygen. HEENT examination is grossly unremarkable. Neck supple. Full range of motion. No adenopathy thyromegaly or neck vein distention. Cardiovascular examination reveals regular rhythm rate. S1-S2 normal. No S3 or S4. No discernible murmur noted. Heart sounds are distant. Heart rate 76 bpm. Lungs reveal scattered bilateral rhonchi. No wheezes or crackles. Breath sounds are equal bilaterally. Saturations are 93% on 5 L nasal cannula. Abdomen soft bowel sounds are heard. No masses or tenderness. Extremities are intact. No cyanosis clubbing or edema. Skin is without rash or lesion. Neurologic examination is brief but nonfocal. - Labs CBC & Chem 7: 03/07/23 04:38 03/07/23 04:38 Labs: Abnormal Lab Results - Last 24 Hours (Table) 03/08/23 03/08/23 03/09/23 Range/Units 16:24 20:11 05:51 POC Glucose (mg/dL) 186 H 190 H 141 H (70-110) mg/dL 03/09/23 Range/Units 11:48 POC Glucose (mg/dL) 112 H (70-110) mg/dL Microbiology - Last 24 Hours (Table) 03/06/23 19:13 Blood Culture - Preliminary Blood 03/06/23 19:13 Blood Culture - Preliminary Blood 03/08/23 09:10 Gram Stain - Preliminary Sputum Assessment and Plan Assessment: Acute hypoxemic respiratory failure, secondary to possible healthcare acquired pneumonia. Febrile illness secondary to above. History of CVA. History of seizure disorder. Chronic neck and back pain with pain. Former smoker. Memory impairment. Hypertension. Diabetes mellitus, type II. Hypertension. Chronic obstructive pulmonary disease. History of hepatitis C. Anxiety/depression. Plan: Plan dated 03/08/2023. The patient is seen and evaluated, and room 370. Labs, x-rays, and medications are reviewed. The patient continues on Zosyn. The patient's pro-calcitonin level is elevated, at 0.60. We will continue to follow the patient, and make recommendations along the way. The patient's overall prognosis remains guarded. Further recommendations to come. Plan dated 03/09/2023. The patient is seen today in room 370. His been weaned on the 5 L nasal cannula. Labs, x-rays, and medications are reviewed. The patient's overall prognosis remains very guarded. The patient is receiving saline at 100 mL an hour. We will continue to follow the patient, and make recommendations along the way. Labs, x-rays, and medications are reviewed. Time with Patient: Less than 30
--- NOTE | 2023-03-09 15:12 | P.PN ---
Subjective Progress Note Date: 03/09/23 This is a 62-year-old gentleman recently admitted ,with weakness and falls,discharged on 02/25/2023 to subacute rehab., returning with community- acquired pneumonia. Currently maintaining O2 sats in the mid 90s on 5 L high flow nasal cannula. Afebrile. Preliminary blood cultures reporting no growth after 48 hours. Sputum culture pending. Objective - Vital Signs Vital signs: Vital Signs Temp 99.0 F 03/09/23 12:00 Pulse 76 03/09/23 12:00 Resp 18 03/09/23 12:00 BP 129/59 03/09/23 12:00 Pulse Ox 93 L 03/09/23 12:00 FiO2 59 03/07/23 08:25 Intake & Output 03/08/23 03/09/23 03/09/23 18:59 06:59 18:59 Intake Total 598 360 Output Total 300 1200 600 Balance 298 -1200 -240 Weight 99.5 kg Intake: Oral 598 360 Output: Urine 300 1200 600 Other: Voiding Method External Catheter External Catheter External Catheter # Bowel Movements 1 - Exam Gen: well developed, well nourished, NAD HEENT: NC/AT, mmm Neck: supple, no JVD or thyromegaly CV: RRR, no murmur Lungs: Normal effort, rhonchi and rales scattered throughout Abd: soft, nontender, non distended Neuro: AAOx3, no focal deficit Skin: warm and dry - Labs CBC & Chem 7: 03/07/23 04:38 03/07/23 04:38 Labs: Abnormal Lab Results - Last 24 Hours (Table) 03/08/23 03/08/23 03/09/23 Range/Units 16:24 20:11 05:51 POC Glucose (mg/dL) 186 H 190 H 141 H (70-110) mg/dL 03/09/23 Range/Units 11:48 POC Glucose (mg/dL) 112 H (70-110) mg/dL Microbiology - Last 24 Hours (Table) 03/06/23 19:13 Blood Culture - Preliminary Blood 03/06/23 19:13 Blood Culture - Preliminary Blood 03/08/23 09:10 Gram Stain - Preliminary Sputum Assessment and Plan Assessment: Community-acquired pneumonia, possible, in a patient recently discharged to subacute rehab. Procalcitonin 0.60. Acute hypoxic respiratory failure secondary to the above History of falls Acute kidney injury, Hypertension Hyperlipidemia Diabetes mellitus Anemia and thrombocytopenia secondary to hepatitis C History of hepatitis C History of benign prostatic hypertrophy History of CVA COPD Prior nicotine dependence of 40 years History of seizure disorder Chronic back pain on pain pump History of anxiety and depression Plan: Continue on current medication regime ,monitoring and symptomatic treatment. Maintain on nebulized bronchodilators, Zosyn. Flutter valve ordered. Sputum culture in progress. Follow closely with pulmonary and infectious disease. The impression and plan of care has been dictated as directed. : I performed a history and examination of this patient, discussed the same with the dictator. I agree with the dictator's note ,documented as a scribe. Any additional findings or plans will be noted.
[2023-03-09 16:24] LABS: Glucose,Whole Blood 187 mg/dL (70-110)
[2023-03-09 19:54] LABS: Glucose,Whole Blood 187 mg/dL (70-110)
--- NOTE | 2023-03-09 20:51 | P.PN ---
Subjective Progress Note Date: 03/09/23 Principal diagnosis: Pneumonia Patient is a 62-year-old male with a past medical history negative for diabetes mellitus hypertension hyperlipidemia MS seizure disorder and COPD presenting to the hospital for evaluation of fever increasing shortness of breath and also hypoxemia with O2 sats in the 80s, patient chest x-ray with low lung volumes denies hazy appearance concerning for possible gram-negative pneumonia. On today's evaluation that is 03/09/2023, the patient is afebrile, the patient is breathing comfortably on 5 L nasal cannula oxygen, the patient denies chest pain, no worsening cough or sputum production, The Patient denies nausea vomiting no abdominal pain or diarrhea No lab draw today, blood and sputum cultures are currently pending Objective - Vital Signs Vital signs: Vital Signs Temp 99.0 F 03/09/23 12:00 Pulse 76 03/09/23 12:00 Resp 18 03/09/23 12:00 BP 129/59 03/09/23 12:00 Pulse Ox 93 L 03/09/23 12:00 FiO2 59 03/07/23 08:25 Intake & Output 03/08/23 03/09/23 03/09/23 18:59 06:59 18:59 Intake Total 598 180 Output Total 300 1200 600 Balance 298 -1200 -420 Weight 99.5 kg Intake: Oral 598 180 Output: Urine 300 1200 600 Other: Voiding Method External Catheter External Catheter External Catheter # Bowel Movements 1 - Exam GENERAL DESCRIPTION: An elderly male lying in bed in no distress RESPIRATORY SYSTEM: Unlabored breathing , coarse breath sounds bilaterally HEART: S1 S2 regular rate and rhythm , ABDOMEN: Soft , no tenderness EXTREMITIES: No edema feet - Labs CBC & Chem 7: 03/07/23 04:38 03/07/23 04:38 Labs: Abnormal Lab Results - Last 24 Hours (Table) 03/08/23 03/08/23 03/09/23 Range/Units 16:24 20:11 05:51 POC Glucose (mg/dL) 186 H 190 H 141 H (70-110) mg/dL 03/09/23 Range/Units 11:48 POC Glucose (mg/dL) 112 H (70-110) mg/dL Microbiology - Last 24 Hours (Table) 03/08/23 09:10 Gram Stain - Preliminary Sputum 03/06/23 19:13 Blood Culture - Preliminary Blood 03/06/23 19:13 Blood Culture - Preliminary Blood Assessment and Plan (1) Pneumonia Current Visit: No Status: Acute Code(s): J18.9 - PNEUMONIA, UNSPECIFIED ORGANISM SNOMED Code(s): 724754024 Plan: 1patient was in the hospital with increasing shortness of breath patient also was hypoxic did have a fever with generalized hazy appearance high clinical suspicious for pneumonia likely gram-negative 2blood and sputum cultures are currently pending, the patient did have progressive narrowing of 0.60 3patient seem to have shown some clinical improvement, we will keep the patient on Zosyn while waiting for the culture to finalize and monitor his clinical course closely Dictation was produced using [employer] dictation software. please excuse any grammatical, word or spelling errors.
[2023-03-09] MEDS: ACETAMINOPHEN TAB 325 MG TAB PO PRN (21:00)
[2023-03-10] MEDS: PIPERACILLIN-TAZOBACTAM 3.375 GM in SODIUM CHLORIDE 0.9% 100 ML IVPB SCH ×3 (05:49→19:56)
[2023-03-10 05:50] LABS: Glucose,Whole Blood 115 mg/dL (70-110)
[2023-03-10] MEDS: INSULIN ASPART (NovoLOG) 100 UNIT/ML VIAL SQ SCH ×4 (05:50→20:06)
--- NOTE | 2023-03-10 08:34 | XR ---
EXAMINATION TYPE: XR chest 1V portable DATE OF EXAM: 03/10/2023 COMPARISON: 03/07/2023 HISTORY: Cough TECHNIQUE: Single frontal view of the chest is obtained. FINDINGS: Bilateral lower lobe infiltrate. Reduced lung volumes with no overt failure or pneumothora x. Hypertrophic changes in the spine. IMPRESSION: Bilateral lower lobe infiltrate. Stable.
[2023-03-10] MEDS: FERROUS SULFATE 325 MG TAB PO SCH (08:59)
[2023-03-10] MEDS: CLOPIDOGREL 75 MG TAB PO SCH (08:59)
[2023-03-10] MEDS: PRIMIDONE 50 MG TAB PO SCH (08:59)
[2023-03-10] MEDS: ESCITALOPRAM 20 MG TAB PO SCH (08:59)
[2023-03-10] MEDS: LACOSAMIDE 50 MG TABLET PO SCH ×2 (08:59→19:57)
[2023-03-10] MEDS: PREGABALIN 100 MG CAP PO SCH ×2 (08:59→19:57)
[2023-03-10] MEDS: ATORVASTATIN 80 MG TAB PO SCH (08:59)
[2023-03-10] MEDS: levETIRAcetam 500 MG TAB PO SCH ×2 (08:59→19:57)
[2023-03-10] MEDS: LACTULOSE 20 GM/30 ML CUP PO SCH ×4 (09:00→20:10)
[2023-03-10] MEDS: IPRATROPIUM-ALBUTEROL 3 ML NEB INHALATION SCH ×4 (09:09→21:39)
[2023-03-10 09:12] LABS: Basophils % (A) 0 %; Eosinophils # (A) 0.1 k/uL (0-0.7); Eosinophils % (A) 2 %; HCT 34.3 % (39.0-53.0); HGB 11.3 gm/dL (13.0-17.5); Lymphocytes # (A) 0.7 k/uL (1.0-4.8); Lymphocytes % (A) 12 %; MCH 34.1 pg (25.0-35.0); MCV 103.5 fL (80.0-100.0); Macrocytosis Slight; Mean Platelet Volume 7.8; Monocytes # (A) 0.4 k/uL (0-1.0); Monocytes % (A) 7 %; Neutrophils # (A) 4.3 k/uL (1.3-7.7); Neutrophils % (A) 77 %; RBC 3.31 m/uL (4.30-5.90); RDW 13.5 % (11.5-15.5); WBC 5.6 k/uL (3.8-10.6)
[2023-03-10 09:29] LABS: African American GFR (CKD) >90 (>60 ml/min/1.73 sqM); Anion Gap 5 mmol/L; Blood Urea Nitrogen 25 mg/dL (9-20); Calcium 8.7 mg/dL (8.4-10.2); Carbon Dioxide 25 mmol/L (22-30); Chloride 108 mmol/L (98-107); Glucose 168 mg/dL (74-99); Non-African American GFR(CKD) 84 (>60 ml/min/1.73 sqM); Platelet Count 81 k/uL (150-450); Potassium 4.3 mmol/L (3.5-5.1); Sodium 138 mmol/L (137-145)
[2023-03-10 11:41] LABS: Glucose,Whole Blood 169 mg/dL (70-110)
--- NOTE | 2023-03-10 11:58 | P.PN ---
Subjective Progress Note Date: 03/10/23 Principal diagnosis: Pneumonia Patient is a 62-year-old male with a past medical history negative for diabetes mellitus hypertension hyperlipidemia CT seizure disorder and COPD presenting to the hospital for evaluation of fever increasing shortness of breath and also hypoxemia with O2 sats in the 80s, patient chest x-ray with low lung volumes denies hazy appearance concerning for possible gram-negative pneumonia. On today's evaluation that is 03/10/2023, the patient denies any fever or any chills, , the patient is breathing comfortably on 5 L nasal cannula oxygen , the patient denies chest pain and denies any worsening cough or sputum production, patient denies nausea / vomiting or diarrhea and no abdominal pain White count is 5.6, creatinine 0.98, blood and sputum culture have been negative so far Objective - Vital Signs Vital signs: Vital Signs Temp 98.3 F 03/10/23 04:00 Pulse 68 03/10/23 09:21 Resp 16 03/10/23 08:00 BP 173/74 03/10/23 08:00 Pulse Ox 95 03/10/23 08:54 FiO2 59 03/07/23 08:25 Intake & Output 03/09/23 03/10/23 03/10/23 18:59 06:59 18:59 Intake Total 540 180 Output Total 1100 550 Balance -560 -550 180 Weight 98 kg Intake: Oral 540 180 Output: Urine 1100 550 Other: Voiding Method External Catheter External Catheter External Catheter - Exam GENERAL DESCRIPTION: An elderly male lying in bed in no distress RESPIRATORY SYSTEM: Unlabored breathing , coarse breath sounds bilaterally HEART: S1 S2 regular rate and rhythm , ABDOMEN: Soft , no tenderness EXTREMITIES: No edema feet - Labs CBC & Chem 7: 03/10/23 08:29 03/10/23 08:29 Labs: Abnormal Lab Results - Last 24 Hours (Table) 03/08/23 03/09/23 03/09/23 Range/Units 04:38 16:23 19:51 RBC (4.30-5.90) m/uL Hgb (13.0-17.5) gm/dL Hct (39.0-53.0) % MCV (80.0-100.0) fL Plt Count (150-450) k/uL Lymphocytes # (1.0-4.8) k/uL Chloride (98-107) mmol/L BUN (9-20) mg/dL Glucose (74-99) mg/dL POC Glucose (mg/dL) 187 H 187 H (70-110) mg/dL Hemoglobin A1c 7.2 H (<=6.0) % 03/10/23 03/10/23 03/10/23 Range/Units 05:46 08:29 08:29 RBC 3.31 L (4.30-5.90) m/uL Hgb 11.3 L (13.0-17.5) gm/dL Hct 34.3 L (39.0-53.0) % MCV 103.5 H (80.0-100.0) fL Plt Count 81 L (150-450) k/uL Lymphocytes # 0.7 L (1.0-4.8) k/uL Chloride 108 H (98-107) mmol/L BUN 25 H (9-20) mg/dL Glucose 168 H (74-99) mg/dL POC Glucose (mg/dL) 115 H (70-110) mg/dL Hemoglobin A1c (<=6.0) % 03/10/23 Range/Units 11:39 RBC (4.30-5.90) m/uL Hgb (13.0-17.5) gm/dL Hct (39.0-53.0) % MCV (80.0-100.0) fL Plt Count (150-450) k/uL Lymphocytes # (1.0-4.8) k/uL Chloride (98-107) mmol/L BUN (9-20) mg/dL Glucose (74-99) mg/dL POC Glucose (mg/dL) 169 H (70-110) mg/dL Hemoglobin A1c (<=6.0) % Microbiology - Last 24 Hours (Table) 03/08/23 09:10 Gram Stain - Final Sputum Sputum Culture - Final 03/06/23 19:13 Blood Culture - Preliminary Blood 03/06/23 19:13 Blood Culture - Preliminary Blood Assessment and Plan (1) Pneumonia Current Visit: No Status: Acute Code(s): J18.9 - PNEUMONIA, UNSPECIFIED ORGANISM SNOMED Code(s): 947603065 Plan: 1patient was in the hospital with increasing shortness of breath patient also was hypoxic did have a fever with generalized hazy appearance high clinical suspicious for pneumonia likely gram-negative 2blood and sputum cultures are currently pending, the patient did have progressive narrowing of 0.60 3patient has shown some clinical improvement, the patient is afebrile the patient white count normal culture have been negative so far 3 we will keep the patient on Zosyn while inpatient and transition to short course of oral Augmentin on discharge Dictation was produced using [employer] dictation software. please excuse any grammatical, word or spelling errors. Time with Patient: Less than 30
[2023-03-10] MEDS: SODIUM CHLORIDE 0.9% 1,000 ML IV SCH (12:35)
--- NOTE | 2023-03-10 14:59 | P.PN ---
Subjective Progress Note Date: 03/10/23 This is a 62-year-old gentleman recently admitted ,with weakness and falls,discharged on 02/25/2023 to subacute rehab., returning with community- acquired pneumonia. Currently maintaining O2 sats in the mid 90s on 5 L high flow nasal cannula. Afebrile. Preliminary blood cultures reporting no growth after 48 hours. Sputum culture pending. 03/10/2023 continues on Zosyn.maintaining O2 sats in the 90s on 5 L nasal cannula. Denies increased shortness of breath, chest pain or palpitations. Sputum culture finalizing. Cough improving. T-max 99.2, WBC within normal limits.BUN 25, creatinine 0.98. Objective - Vital Signs Vital signs: Vital Signs Temp 98.3 F 03/10/23 04:00 Pulse 78 03/10/23 12:16 Resp 16 03/10/23 12:00 BP 167/74 03/10/23 12:00 Pulse Ox 95 03/10/23 12:00 FiO2 59 03/07/23 08:25 Intake & Output 03/09/23 03/10/23 03/10/23 18:59 06:59 18:59 Intake Total 540 360 Output Total 1100 550 Balance -560 -550 360 Weight 98 kg Intake: Oral 540 360 Output: Urine 1100 550 Other: Voiding Method External Catheter External Catheter External Catheter - Exam Gen: well developed, well nourished, NAD HEENT: NC/AT, mmm Neck: supple, no JVD or thyromegaly CV: RRR, no murmur Lungs: Clear. Unlabored, scattered rhonchi. Abd: soft, nontender, non distended Neuro: AAOx3, no focal deficit Skin: warm and dry, no rash noted - Labs CBC & Chem 7: 03/10/23 08:29 03/10/23 08:29 Labs: Abnormal Lab Results - Last 24 Hours (Table) 03/08/23 03/09/23 03/09/23 Range/Units 04:38 16:23 19:51 RBC (4.30-5.90) m/uL Hgb (13.0-17.5) gm/dL Hct (39.0-53.0) % MCV (80.0-100.0) fL Plt Count (150-450) k/uL Lymphocytes # (1.0-4.8) k/uL Chloride (98-107) mmol/L BUN (9-20) mg/dL Glucose (74-99) mg/dL POC Glucose (mg/dL) 187 H 187 H (70-110) mg/dL Hemoglobin A1c 7.2 H (<=6.0) % 03/10/23 03/10/23 03/10/23 Range/Units 05:46 08:29 08:29 RBC 3.31 L (4.30-5.90) m/uL Hgb 11.3 L (13.0-17.5) gm/dL Hct 34.3 L (39.0-53.0) % MCV 103.5 H (80.0-100.0) fL Plt Count 81 L (150-450) k/uL Lymphocytes # 0.7 L (1.0-4.8) k/uL Chloride 108 H (98-107) mmol/L BUN 25 H (9-20) mg/dL Glucose 168 H (74-99) mg/dL POC Glucose (mg/dL) 115 H (70-110) mg/dL Hemoglobin A1c (<=6.0) % 03/10/23 Range/Units 11:39 RBC (4.30-5.90) m/uL Hgb (13.0-17.5) gm/dL Hct (39.0-53.0) % MCV (80.0-100.0) fL Plt Count (150-450) k/uL Lymphocytes # (1.0-4.8) k/uL Chloride (98-107) mmol/L BUN (9-20) mg/dL Glucose (74-99) mg/dL POC Glucose (mg/dL) 169 H (70-110) mg/dL Hemoglobin A1c (<=6.0) % Microbiology - Last 24 Hours (Table) 03/06/23 19:13 Blood Culture - Preliminary Blood 03/06/23 19:13 Blood Culture - Preliminary Blood 03/08/23 09:10 Gram Stain - Final Sputum Sputum Culture - Final Assessment and Plan Assessment: Community-acquired pneumonia, possible, in a patient recently discharged to subacute rehab. Procalcitonin 0.60. Acute hypoxic respiratory failure secondary to the above History of falls Acute kidney injury, Hypertension Hyperlipidemia Diabetes mellitus Anemia and thrombocytopenia secondary to hepatitis C History of hepatitis C History of benign prostatic hypertrophy History of CVA COPD Prior nicotine dependence of 40 years History of seizure disorder Chronic back pain on pain pump History of anxiety and depression Plan: Continue on current medication regime ,monitoring and symptomatic treatment. Maintain on nebulized bronchodilators, Zosyn. Flutter valve ordered. Sputum culture in progress. Follow closely with pulmonary and infectious disease. The impression and plan of care has been dictated as directed. : I performed a history and examination of this patient, discussed the same with the dictator. I agree with the dictator's note ,documented as a scribe. Any additional findings or plans will be noted.
--- NOTE | 2023-03-10 15:29 | P.PN ---
Subjective Progress Note Date: 03/10/23 Principal diagnosis: Shortness of breath. This is a 62-year-old male patient with a known history of CVA, seizures, chronic neck and back pain, hypertension, chronic obstructive pulmonary disease, diabetes mellitus, hyperlipidemia, memory impairment, hepatitis C, former smoker. He was recently discharged on 02/25/2023 for weakness and falls. He presented to the emergency room last evening with complaints of increasing shortness of breath and O2 saturations in the mid 80s. Chest x-ray reveals low lung volumes and mild cardiomegaly with bibasilar atelectasis and/or acute infiltrates. Computed tomography scan of the brain revealed no acute intracranial process. 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 White count 5.3. Hemoglobin 11.5. Platelets 77,000. Sodium 139. Potassium 4.8. Bicarb 20. BUN 50. Creatinine 1.90. Glucose 240. Urinalysis clean. Serum alcohol level less than 10. Influenza screen negative. RSV screen negative, COVID-19 screen negative. He is seen today in consultation on the selective care unit. Currently sitting up in bed. Awake. Alert. He is currently on 50% FiO2 via Ventimask with O2 saturations in the 90s. He is afebrile currently but did present with a T-max of 101.5. Hemodynamically stable. He's been initiated and DuoNeb inhalations. Normal saline and 100 ML's per hour. Antibiotics in the form of Zosyn. Progress note dated 03/08/2023. I am seeing this patient in new consultation today 03/08/2023 for an acute COPD exacerbation. Patient is a 74-year-old male patient with a known history of chronic and ongoing tobacco dependence, marijuana use, chronic obstructive pulmonary disease, hyperlipidemia, hypertension, peripheral vascular occlusive disease with previous stent placement, coronary artery disease with previous stent placement, diverticulosis previous history of diverticulitis. He presented to the emergency room on March 06 with complaints of increasing shortness of breath, non-productive cough and congestion for approximate 2 weeks. chest x- ray reveals no acute cardiopulmonary process. We were not consulted until early this morning, the patient was in some respiratory distress and the BiPAP settings 10/5 and an FiO2 of 60%. He is very bronchospastic. He is currently on a combination of bronchodilators, Symbicort inhaler, and IV Solu-Medrol. ABG showed a pO2 of 100%, pCO2 44, pH is 7.38. CBC on arrival was unremarkable. No leukocytosis. Patient is afebrile. Negative for influenza, RSV, COVID-19. Most recent BMP was unremarkable. Troponins less than 0.012 3. Patient will be monitored on the cardiac stepdown unit. Currently, the patient is on 8 L high flow nasal cannula. The patient's getting saline at 100 mL an hour. The patient's pro-calcitonin level was elevated at 0.60. The patient is currently on Zosyn. No new labs today. Blood cultures are currently negative. Yesterday's chest x-ray shows some cardiomegaly, and bibasilar atelectasis and/or infiltrates. The chest x-ray is largely unchanged. Progress note dated 03/09/2023. 62-year-old male with a history of CVA, seizures, chronic neck and back pain, hypertension, COPD, diabetes, hyperlipidemia, memory impairment, hepatitis C, and previous heavy tobacco user. The patient recently presented to the hospital with shortness of breath, and saturations in the mid 80s. Chest x-ray showed evidence of low lung volumes, cardiomegaly, and bibasilar atelectasis or infiltrates. Currently, the patient is on 5 L nasal cannula. He is getting saline at 100 mL an hour. He appears to be doing a bit better. No new labs today. Sputum and blood sampling is negative. No recent chest x-ray to report. Progress note dated 03/10/2023. This is a 62-year-old male seen today in room 370. He has a history of CVA, seizures, chronic neck and back pain, hypertension, COPD, diabetes mellitus, hyperlipidemia, memory impairment, hepatitis C, and previous heavy tobacco use. The patient remains on oxygen at 5 L. He is getting saline at 100 mL an hour. The patient's chest x-ray suggestive left lower lobe infiltrate. The patient continues on Zosyn. Sputum and blood cultures are negative. White count 5.6, hemoglobin 11.3, hematocrit 34.3, platelet count of 81,000. Sodium 138, potassium 4.3, chlorides 108, CO2 25, BUN 25, and creatinine 0.98. Objective - Vital Signs Vital signs: Vital Signs Temp 98.3 F 09/27/23 04:00 Pulse 78 03/10/23 12:16 Resp 16 03/10/23 12:00 BP 167/74 03/10/23 12:00 Pulse Ox 95 03/10/23 12:00 FiO2 59 03/07/23 08:25 Intake & Output 03/09/23 03/10/23 03/10/23 18:59 06:59 18:59 Intake Total 540 360 Output Total 1100 550 Balance -560 -550 360 Weight 98 kg Intake: Oral 540 360 Output: Urine 1100 550 Other: Voiding Method External Catheter External Catheter External Catheter - Exam No acute distress, oriented 3. No conversational dyspnea or use of accessory muscles. The patient's currently on 5 L high flow oxygen. HEENT examination is grossly unremarkable. Neck supple. Full range of motion. No adenopathy thyromegaly or neck vein distention. Cardiovascular examination reveals regular rhythm rate. S1-S2 normal. No S3 or S4. No discernible murmur noted. Heart sounds are distant. Heart rate 70 bpm. Lungs reveal scattered bilateral rhonchi. No wheezes or crackles. Breath sounds are equal bilaterally. Saturations are 95 % on 5 L nasal cannula. Abdomen soft bowel sounds are heard. No masses or tenderness. Extremities are intact. No cyanosis clubbing or edema. Skin is without rash or lesion. Neurologic examination is brief but nonfocal. - Labs CBC & Chem 7: 03/10/23 08:29 03/10/23 08:29 Labs: Abnormal Lab Results - Last 24 Hours (Table) 03/08/23 03/09/23 03/09/23 Range/Units 04:38 16:23 19:51 RBC (4.30-5.90) m/uL Hgb (13.0-17.5) gm/dL Hct (39.0-53.0) % MCV (80.0-100.0) fL Plt Count (150-450) k/uL Lymphocytes # (1.0-4.8) k/uL Chloride (98-107) mmol/L BUN (9-20) mg/dL Glucose (74-99) mg/dL POC Glucose (mg/dL) 187 H 187 H (70-110) mg/dL Hemoglobin A1c 7.2 H (<=6.0) % 03/10/23 03/10/23 03/10/23 Range/Units 05:46 08:29 08:29 RBC 3.31 L (4.30-5.90) m/uL Hgb 11.3 L (13.0-17.5) gm/dL Hct 34.3 L (39.0-53.0) % MCV 103.5 H (80.0-100.0) fL Plt Count 81 L (150-450) k/uL Lymphocytes # 0.7 L (1.0-4.8) k/uL Chloride 108 H (98-107) mmol/L BUN 25 H (9-20) mg/dL Glucose 168 H (74-99) mg/dL POC Glucose (mg/dL) 115 H (70-110) mg/dL Hemoglobin A1c (<=6.0) % 03/10/23 Range/Units 11:39 RBC (4.30-5.90) m/uL Hgb (13.0-17.5) gm/dL Hct (39.0-53.0) % MCV (80.0-100.0) fL Plt Count (150-450) k/uL Lymphocytes # (1.0-4.8) k/uL Chloride (98-107) mmol/L BUN (9-20) mg/dL Glucose (74-99) mg/dL POC Glucose (mg/dL) 169 H (70-110) mg/dL Hemoglobin A1c (<=6.0) % Microbiology - Last 24 Hours (Table) 03/06/23 19:13 Blood Culture - Preliminary Blood 03/06/23 19:13 Blood Culture - Preliminary Blood 03/08/23 09:10 Gram Stain - Final Sputum Sputum Culture - Final Assessment and Plan Assessment: Acute hypoxemic respiratory failure, secondary to possible healthcare acquired pneumonia. Febrile illness secondary to above. History of CVA. History of seizure disorder. Chronic neck and back pain with pain. Former smoker. Memory impairment. Hypertension. Diabetes mellitus, type II. Hypertension. Chronic obstructive pulmonary disease. History of hepatitis C. Anxiety/depression. Plan: Plan dated 03/08/2023. The patient is seen and evaluated, and room 370. Labs, x-rays, and medications are reviewed. The patient continues on Zosyn. The patient's pro-calcitonin level is elevated, at 0.60. We will continue to follow the patient, and make recommendations along the way. The patient's overall prognosis remains guarded. Further recommendations to come. Plan dated 03/09/2023. The patient is seen today in room 370. His been weaned on the 5 L nasal cannula. Labs, x-rays, and medications are reviewed. The patient's overall prognosis remains very guarded. The patient is receiving saline at 100 mL an hour. We will continue to follow the patient, and make recommendations along the way. Labs, x-rays, and medications are reviewed. Plan dated 03/10/2023. The patient's chest x-rays reviewed. He continues on oxygen at 5 L by nasal cannula. Labs, x-rays, and medications are reviewed. The patient remains on Zosyn. Additional recommendations and suggestions are forthcoming. The patient is receiving saline at 100 mL an hour, and, it is on oxygen at IV liters by nasal cannula. Make recommendations along the way. Prognosis is guarded. The patient appears to be somewhat lethargic and somnolent, when we see him. Time with Patient: Less than 30
[2023-03-10 16:40] LABS: Glucose,Whole Blood 206 mg/dL (70-110)
[2023-03-10 20:02] LABS: Glucose,Whole Blood 208 mg/dL (70-110)
[2023-03-11] MEDS: PIPERACILLIN-TAZOBACTAM 3.375 GM in SODIUM CHLORIDE 0.9% 100 ML IVPB SCH ×3 (05:14→19:54)
[2023-03-11 05:53] LABS: Glucose,Whole Blood 148 mg/dL (70-110)
[2023-03-11] MEDS: INSULIN ASPART (NovoLOG) 100 UNIT/ML VIAL SQ SCH ×4 (06:11→19:55)
[2023-03-11] MEDS: INSULIN DETEMIR (LEVEMIR) 100 UNIT/ML SYR SQ SCH (06:15)
[2023-03-11] MEDS: IPRATROPIUM-ALBUTEROL 3 ML NEB INHALATION SCH ×4 (07:41→20:14)
[2023-03-11] MEDS: CLOPIDOGREL 75 MG TAB PO SCH (09:15)
[2023-03-11] MEDS: PRIMIDONE 50 MG TAB PO SCH (09:15)
[2023-03-11] MEDS: levETIRAcetam 500 MG TAB PO SCH ×2 (09:15→19:54)
[2023-03-11] MEDS: FERROUS SULFATE 325 MG TAB PO SCH (09:15)
[2023-03-11] MEDS: ATORVASTATIN 80 MG TAB PO SCH (09:15)
[2023-03-11] MEDS: ESCITALOPRAM 20 MG TAB PO SCH (09:15)
[2023-03-11] MEDS: LACOSAMIDE 50 MG TABLET PO SCH ×2 (09:15→19:54)
[2023-03-11] MEDS: PREGABALIN 100 MG CAP PO SCH ×2 (09:16→19:54)
[2023-03-11] MEDS: LACTULOSE 20 GM/30 ML CUP PO SCH ×3 (09:17→19:59)
[2023-03-11 11:59] LABS: Glucose,Whole Blood 185 mg/dL (70-110)
[2023-03-11 13:29] VITALS: BMI 32.8
--- NOTE | 2023-03-11 13:38 | P.PN ---
Subjective Progress Note Date: 03/11/23 Principal diagnosis: Shortness of breath. This is a 62-year-old male patient with a known history of CVA, seizures, chronic neck and back pain, hypertension, chronic obstructive pulmonary disease, diabetes mellitus, hyperlipidemia, memory impairment, hepatitis C, former smoker. He was recently discharged on 02/25/2023 for weakness and falls. He presented to the emergency room last evening with complaints of increasing shortness of breath and O2 saturations in the mid 80s. Chest x-ray reveals low lung volumes and mild cardiomegaly with bibasilar atelectasis and/or acute infiltrates. Computed tomography scan of the brain revealed no acute intracranial process. 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 White count 5.3. Hemoglobin 11.5. Platelets 77,000. Sodium 139. Potassium 4.8. Bicarb 20. BUN 50. Creatinine 1.90. Glucose 240. Urinalysis clean. Serum alcohol level less than 10. Influenza screen negative. RSV screen negative, COVID-19 screen negative. He is seen today in consultation on the selective care unit. Currently sitting up in bed. Awake. Alert. He is currently on 50% FiO2 via Ventimask with O2 saturations in the 90s. He is afebrile currently but did present with a T-max of 101.5. Hemodynamically stable. He's been initiated and DuoNeb inhalations. Normal saline and 100 ML's per hour. Antibiotics in the form of Zosyn. Progress note dated 03/08/2023. I am seeing this patient in new consultation today 03/08/2023 for an acute COPD exacerbation. Patient is a 74-year-old male patient with a known history of chronic and ongoing tobacco dependence, marijuana use, chronic obstructive pulmonary disease, hyperlipidemia, hypertension, peripheral vascular occlusive disease with previous stent placement, coronary artery disease with previous stent placement, diverticulosis previous history of diverticulitis. He presented to the emergency room on March 06 with complaints of increasing shortness of breath, non-productive cough and congestion for approximate 2 weeks. chest x- ray reveals no acute cardiopulmonary process. We were not consulted until early this morning, the patient was in some respiratory distress and the BiPAP settings 10/5 and an FiO2 of 60%. He is very bronchospastic. He is currently on a combination of bronchodilators, Symbicort inhaler, and IV Solu-Medrol. ABG showed a pO2 of 100%, pCO2 44, pH is 7.38. CBC on arrival was unremarkable. No leukocytosis. Patient is afebrile. Negative for influenza, RSV, COVID-19. Most recent BMP was unremarkable. Troponins less than 0.012 3. Patient will be monitored on the cardiac stepdown unit. Currently, the patient is on 8 L high flow nasal cannula. The patient's getting saline at 100 mL an hour. The patient's pro-calcitonin level was elevated at 0.60. The patient is currently on Zosyn. No new labs today. Blood cultures are currently negative. Yesterday's chest x-ray shows some cardiomegaly, and bibasilar atelectasis and/or infiltrates. The chest x-ray is largely unchanged. Progress note dated 03/09/2023. 62-year-old male with a history of CVA, seizures, chronic neck and back pain, hypertension, COPD, diabetes, hyperlipidemia, memory impairment, hepatitis C, and previous heavy tobacco user. The patient recently presented to the hospital with shortness of breath, and saturations in the mid 80s. Chest x-ray showed evidence of low lung volumes, cardiomegaly, and bibasilar atelectasis or infiltrates. Currently, the patient is on 5 L nasal cannula. He is getting saline at 100 mL an hour. He appears to be doing a bit better. No new labs today. Sputum and blood sampling is negative. No recent chest x-ray to report. Progress note dated 03/10/2023. This is a 62-year-old male seen today in room 370. He has a history of CVA, seizures, chronic neck and back pain, hypertension, COPD, diabetes mellitus, hyperlipidemia, memory impairment, hepatitis C, and previous heavy tobacco use. The patient remains on oxygen at 5 L. He is getting saline at 100 mL an hour. The patient's chest x-ray suggestive left lower lobe infiltrate. The patient continues on Zosyn. Sputum and blood cultures are negative. White count 5.6, hemoglobin 11.3, hematocrit 34.3, platelet count of 81,000. Sodium 138, potassium 4.3, chlorides 108, CO2 25, BUN 25, and creatinine 0.98. Progress note dated 03/11/2023. 62-year-old male seen in room 370. The patient has a history of CVA, seizures, chronic neck and back pain, hypertension, COPD, diabetes, hyperlipidemia, hepatitis C, and previous heavy tobacco use. The patient remains on oxygen at 5 L by nasal cannula. The patient's getting saline at 100 mL an hour. The most recent chest x-ray show significant improvement. No new labs today other than a glucose of 185. Objective - Vital Signs Vital signs: Vital Signs Temp 99.5 F 03/11/23 08:00 Pulse 72 03/11/23 11:32 Resp 16 03/11/23 08:00 BP 163/99 03/11/23 08:00 Pulse Ox 97 03/11/23 08:00 FiO2 59 03/07/23 08:25 Intake & Output 03/10/23 03/11/23 03/11/23 18:59 06:59 18:59 Intake Total 1160 Output Total 650 Balance 1160 -650 Weight 98 kg Intake: Intake, IV Titration 800 Amount Sodium Chloride 0.9% 1, 800 000 ml @ 100 mls/hr IV . Q10H [facility] Rx#:[id number] Oral 360 Output: Urine 650 Other: Voiding Method External Catheter External Catheter External Catheter # Bowel Movements 2 - Exam No acute distress, oriented 3. No conversational dyspnea or use of accessory muscles. The patient's currently on 5 L high flow oxygen. HEENT examination is grossly unremarkable. Neck supple. Full range of motion. No adenopathy thyromegaly or neck vein distention. Cardiovascular examination reveals regular rhythm rate. S1-S2 normal. No S3 or S4. No discernible murmur noted. Heart sounds are distant. Heart rate 72 bpm. Lungs reveal scattered bilateral rhonchi. No wheezes or crackles. Breath sounds are equal bilaterally. Saturations are 97 % on 5 L nasal cannula. Abdomen soft bowel sounds are heard. No masses or tenderness. Extremities are intact. No cyanosis clubbing or edema. Skin is without rash or lesion. Neurologic examination is brief but nonfocal. - Labs CBC & Chem 7: 03/10/23 08:29 03/10/23 08:29 Labs: Abnormal Lab Results - Last 24 Hours (Table) 03/10/23 03/10/23 03/11/23 Range/Units 16:38 20:00 05:51 POC Glucose (mg/dL) 206 H 208 H 148 H (70-110) mg/dL 03/11/23 Range/Units 11:43 POC Glucose (mg/dL) 185 H (70-110) mg/dL Microbiology - Last 24 Hours (Table) 03/06/23 19:13 Blood Culture - Preliminary Blood 03/06/23 19:13 Blood Culture - Preliminary Blood 03/08/23 09:10 Gram Stain - Final Sputum Sputum Culture - Final Assessment and Plan Assessment: Acute hypoxemic respiratory failure, secondary to possible healthcare acquired pneumonia. Febrile illness secondary to above. History of CVA. History of seizure disorder. Chronic neck and back pain with pain. Former smoker. Memory impairment. Hypertension. Diabetes mellitus, type II. Hypertension. Chronic obstructive pulmonary disease. History of hepatitis C. Anxiety/depression. Plan: Plan dated 03/08/2023. The patient is seen and evaluated, and room 370. Labs, x-rays, and medications are reviewed. The patient continues on Zosyn. The patient's pro-calcitonin level is elevated, at 0.60. We will continue to follow the patient, and make recommendations along the way. The patient's overall prognosis remains guarded. Further recommendations to come. Plan dated 03/09/2023. The patient is seen today in room 370. His been weaned on the 5 L nasal cannula. Labs, x-rays, and medications are reviewed. The patient's overall prognosis remains very guarded. The patient is receiving saline at 100 mL an hour. We will continue to follow the patient, and make recommendations along the way. Labs, x-rays, and medications are reviewed. Plan dated 03/10/2023. The patient's chest x-rays reviewed. He continues on oxygen at 5 L by nasal cannula. Labs, x-rays, and medications are reviewed. The patient remains on Zosyn. Additional recommendations and suggestions are forthcoming. The patient is receiving saline at 100 mL an hour, and, it is on oxygen at IV liters by nasal cannula. Make recommendations along the way. Prognosis is guarded. The patient appears to be somewhat lethargic and somnolent, when we see him. Plan dated 03/11/2023. The patient's chest x-rays reviewed. The patient continues on oxygen at 5 L. Labs, x-rays, medications are reviewed. Most recent chest x-rays much improved. The patient continues to show clinical and radiographic improvement. The patient's overall prognosis remains guarded. He is a bit lethargic, but does arouse. We will continue to see him and make recommendations along the way. Prognosis is guarded. Time with Patient: Less than 30
--- NOTE | 2023-03-11 14:38 | P.PN ---
Subjective Progress Note Date: 03/11/23 Principal diagnosis: Pneumonia Patient is a 62-year-old male with a past medical history negative for diabetes mellitus hypertension hyperlipidemia NH seizure disorder and COPD presenting to the hospital for evaluation of fever increasing shortness of breath and also hypoxemia with O2 sats in the 80s, patient chest x-ray with low lung volumes denies hazy appearance concerning for possible gram-negative pneumonia. On today's evaluation that is 03/11/2023, the patient remains to be afebrile, , the patient is breathing comfortably on 5 L nasal cannula oxygen , the patient denies chest pain shortness of breath or cough, patient denies nausea / vomiting and no abdominal pain , patient did have 2 soft bowel movement with the nursing staff White count is 5.6, creatinine 0.98 as of yesterday no blood draw today, blood and sputum culture have been negative so far Objective - Vital Signs Vital signs: Vital Signs Temp 99.5 F 03/11/23 08:00 Pulse 72 03/11/23 11:32 Resp 16 03/11/23 08:00 BP 163/99 03/11/23 08:00 Pulse Ox 97 03/11/23 08:00 FiO2 59 03/07/23 08:25 Intake & Output 03/10/23 03/11/23 03/11/23 18:59 06:59 18:59 Intake Total 1160 Output Total 650 Balance 1160 -650 Intake: Intake, IV Titration 800 Amount Sodium Chloride 0.9% 1, 800 000 ml @ 100 mls/hr IV . Q10H [facility] Rx#:[id number] Oral 360 Output: Urine 650 Other: Voiding Method External Catheter External Catheter External Catheter # Bowel Movements 2 - Exam GENERAL DESCRIPTION: An elderly male lying in bed in no distress RESPIRATORY SYSTEM: Unlabored breathing , coarse breath sounds bilaterally HEART: S1 S2 regular rate and rhythm , ABDOMEN: Soft , no tenderness EXTREMITIES: No edema feet - Labs CBC & Chem 7: 03/10/23 08:29 03/10/23 08:29 Labs: Abnormal Lab Results - Last 24 Hours (Table) 03/10/23 03/10/23 03/11/23 Range/Units 16:38 20:00 05:51 POC Glucose (mg/dL) 206 H 208 H 148 H (70-110) mg/dL 03/11/23 Range/Units 11:43 POC Glucose (mg/dL) 185 H (70-110) mg/dL Microbiology - Last 24 Hours (Table) 03/06/23 19:13 Blood Culture - Preliminary Blood 03/06/23 19:13 Blood Culture - Preliminary Blood 03/08/23 09:10 Gram Stain - Final Sputum Sputum Culture - Final Assessment and Plan (1) Pneumonia Current Visit: No Status: Acute Code(s): J18.9 - PNEUMONIA, UNSPECIFIED ORGANISM SNOMED Code(s): 484938334 Plan: 1patient was in the hospital with increasing shortness of breath patient also was hypoxic did have a fever with generalized hazy appearance high clinical suspicious for pneumonia likely gram-negative 2blood and sputum cultures are currently pending, the patient did have progressive narrowing of 0.60 3patient has shown some clinical improvement, the patient is afebrile the patient white count normal culture have been negative so far 3 patient to continue with Zosyn while inpatient and monitor his clinical course closely Dictation was produced using Fwd: Power dictation software. please excuse any grammatical, word or spelling errors. Time with Patient: Less than 30
--- NOTE | 2023-03-11 16:00 | P.PN ---
Subjective Progress Note Date: 03/11/23 This is a 62-year-old gentleman recently admitted ,with weakness and falls,discharged on 02/25/2023 to subacute rehab., returning with community- acquired pneumonia. Currently maintaining O2 sats in the mid 90s on 5 L high flow nasal cannula. Afebrile. Preliminary blood cultures reporting no growth after 48 hours. Sputum culture pending. 03/10/2023 continues on Zosyn.maintaining O2 sats in the 90s on 5 L nasal cannula. Denies increased shortness of breath, chest pain or palpitations. Sputum culture finalizing. Cough improving. T-max 99.2, WBC within normal limits.BUN 25, creatinine 0.98. 03/11/2023 oxygenation improving on 5 L nasal cannula, maintaining O2 sats in the high 90s. Flutter valve at bedside. Mild lethargy. T-max 99.5. Blood and sputum cultures negative. Denies chest pain, palpitations or increasing shortness of breath. Objective - Vital Signs Vital signs: Vital Signs Temp 99.5 F 03/11/23 08:00 Pulse 64 03/11/23 15:30 Resp 16 03/11/23 08:00 BP 163/99 03/11/23 08:00 Pulse Ox 97 03/11/23 08:00 FiO2 59 03/07/23 08:25 Intake & Output 03/10/23 03/11/23 03/11/23 18:59 06:59 18:59 Intake Total 1160 Output Total 650 Balance 1160 -650 Weight 98 kg Intake: Intake, IV Titration 800 Amount Sodium Chloride 0.9% 1, 800 000 ml @ 100 mls/hr IV . Q10H [facility] Rx#:[id number] Oral 360 Output: Urine 650 Other: Voiding Method External Catheter External Catheter External Catheter # Bowel Movements 2 - Exam Gen: well developed, well nourished, NAD, lethargic HEENT: NC/AT, conjunctiva normal, mmm Neck: supple, no JVD CV: RRR, no murmur Lungs: Clear. Unlabored, scattered rhonchi. Abd: soft, nontender, non distended Neuro: AAOx3, no focal deficit Skin: warm and dry, no rash noted - Labs CBC & Chem 7: 03/10/23 08:29 09/27/23 08:29 Labs: Abnormal Lab Results - Last 24 Hours (Table) 03/10/23 03/10/23 03/11/23 Range/Units 16:38 20:00 05:51 POC Glucose (mg/dL) 206 H 208 H 148 H (70-110) mg/dL 03/11/23 Range/Units 11:43 POC Glucose (mg/dL) 185 H (70-110) mg/dL Microbiology - Last 24 Hours (Table) 03/08/23 09:10 Legionella Culture - Preliminary Sputum 03/06/23 19:13 Blood Culture - Preliminary Blood 03/06/23 19:13 Blood Culture - Preliminary Blood Assessment and Plan Assessment: Community-acquired pneumonia, possible, in a [facility] Procalcitonin 0.60. Acute hypoxic respiratory failure secondary to the above Acute metabolic encephalopathy secondary to pain pump History of falls Acute kidney injury, Hypertension Hyperlipidemia Diabetes mellitus Anemia and thrombocytopenia secondary to hepatitis C History of hepatitis C History of benign prostatic hypertrophy History of CVA COPD Prior nicotine dependence of 40 years History of seizure disorder Chronic back pain on pain pump History of anxiety and depression Plan: Continue on current medication regime ,monitoring and symptomatic treatment. Aggressive pulmonary toileting, continue on nebulized bronchodilators, Zosyn with Flutter valve reinforced. Follow closely with pulmonary and infectious disease. Prognosis guarded given multiple complex medical issues. The impression and plan of care has been dictated as directed. : I performed a history and examination of this patient, discussed the same with the dictator. I agree with the dictator's note ,documented as a scribe. Any additional findings or plans will be noted.
[2023-03-11] MEDS: SODIUM CHLORIDE 0.9% 1,000 ML IV SCH ×2 (16:44→16:45)
[2023-03-11 17:02] LABS: Glucose,Whole Blood 103 mg/dL (70-110)
[2023-03-11 19:47] LABS: Glucose,Whole Blood 177 mg/dL (70-110)
--- NOTE | 2023-03-11 19:56 | CDI ---
Documentation Clarification Form Date: 03/11/2023 07:27:53 PM From: Nina Paulson RN, CCDS Admit Date: 03/06/2023 09:12:00 PM Patient Name: Sukh Zamarripa Visit Number: [id number] Discharge Date: ATTENTION: The Clinical Documentation Specialists (CDI) and [facility] Coding Staff appreciate your assistance in clarifying documentation. Please respond to the clarification below the line at the bottom and electronically sign. The CDI & [facility] Coding staff will review the response and follow-up if needed. Please note: Queries are made part of the Legal Health Record. If you have any questions, please contact the author of this message via ITS. Dr. Dmitriy Liu Conflicting documentation has been found in the medical record. As attending physician, please provide clarification. 03/07 H/P: Bacterial pneumonia 03/07 ID consult and progress note: patient was in the hospital with increasing shortness of breath patient also was hypoxic did have a fever with generalized hazy appearance high clinical suspicious for pneumonia likely gram-negative. 03/09-03/11 Attending progress notes: Community-acquired pneumonia, possible, in a patient recently discharged to subacute rehab. Procalcitonin 0.60. -03/11 Pulmonary: Acute hypoxemic respiratory failure suspects secondary to possible healthcare acquired pneumonia. History/Risk Factors: COPD, CVA/TIA, Diabetes Mellitus, Hyperlipidemia, Hypertension, Memory Impairment, Myocardial Infarction, Seizure Disorder, Former smoker Clinical Indicators: 62-year-old male was found have a fever shortness breath a pulse ox in the mid to upper 80s. 03/06 VS: 102/67 71 24 191.1 91% 6/L NC Labs: WBC 8, HGB 12, Na+ 136 BUN 49 CR 2.09 UA negative for UTI, COVID-19 negative 03/08 Sputum: Gram stain Sputum Final Rare gram-positive cocci Sputum culture Fine Few Normal Respiratory Latisha. No S. aureus or P. aeruginosa recovered. Chest x-ray done in the ER showed low lung volumes which could represent atelectasis versus pulmonary edema Treatment: .9NS @130ML/HR 03/06 Solu-Medrol 125 MG IV Once 03/06 Duoneb 0.5 mg /3ML gregory QID 03/06-03/09 Monitor 02 Sat's (Titrate) Zosyn 3.375 GM IVPB Q 8 HRS 03/06-03/11 Please clarify which diagnosis is most appropriate: [ X ] Pneumonia likely gram-negative. [ ] Bacterial pneumonia [ ] Community-acquired pneumonia [ ] Other (please specify) [ ] Unable to determine (Template Last Revised: August 2020) MTDD
[2023-03-12] MEDS: PIPERACILLIN-TAZOBACTAM 3.375 GM in SODIUM CHLORIDE 0.9% 100 ML IVPB SCH (04:34)
[2023-03-12 06:04] LABS: Glucose,Whole Blood 128 mg/dL (70-110)
[2023-03-12] MEDS: INSULIN ASPART (NovoLOG) 100 UNIT/ML VIAL SQ SCH ×4 (06:06→20:22)
[2023-03-12] MEDS: INSULIN DETEMIR (LEVEMIR) 100 UNIT/ML SYR SQ SCH (06:11)
[2023-03-12] MEDS: IPRATROPIUM-ALBUTEROL 3 ML NEB INHALATION SCH ×4 (07:13→22:03)
[2023-03-12 09:48] LABS: Basophils % (A) 0 %; Eosinophils # (A) 0.1 k/uL (0-0.7); Eosinophils % (A) 3 %; HCT 34.6 % (39.0-53.0); HGB 11.1 gm/dL (13.0-17.5); Lymphocytes # (A) 0.6 k/uL (1.0-4.8); Lymphocytes % (A) 11 %; MCH 32.8 pg (25.0-35.0); MCV 102.5 fL (80.0-100.0); Macrocytosis Slight; Mean Platelet Volume 7.6; Monocytes # (A) 0.3 k/uL (0-1.0); Monocytes % (A) 6 %; Neutrophils # (A) 4.2 k/uL (1.3-7.7); Neutrophils % (A) 78 %; RBC 3.37 m/uL (4.30-5.90); RDW 13.5 % (11.5-15.5); WBC 5.4 k/uL (3.8-10.6)
[2023-03-12] MEDS: levETIRAcetam 500 MG TAB PO SCH ×2 (10:04→20:22)
[2023-03-12] MEDS: LACTULOSE 20 GM/30 ML CUP PO SCH ×4 (10:04→20:15)
[2023-03-12] MEDS: PREGABALIN 100 MG CAP PO SCH ×2 (10:04→20:21)
[2023-03-12 10:05] LABS: Platelet Count 92 k/uL (150-450)
[2023-03-12] MEDS: PRIMIDONE 50 MG TAB PO SCH (10:05)
[2023-03-12] MEDS: LACOSAMIDE 50 MG TABLET PO SCH ×2 (10:05→20:21)
[2023-03-12] MEDS: ESCITALOPRAM 20 MG TAB PO SCH (10:05)
[2023-03-12] MEDS: ATORVASTATIN 80 MG TAB PO SCH (10:05)
[2023-03-12] MEDS: FERROUS SULFATE 325 MG TAB PO SCH (10:05)
[2023-03-12] MEDS: CLOPIDOGREL 75 MG TAB PO SCH (10:05)
[2023-03-12 10:23] LABS: African American GFR (CKD) >90 (>60 ml/min/1.73 sqM); Anion Gap 9 mmol/L; Blood Urea Nitrogen 20 mg/dL (9-20); Calcium 8.7 mg/dL (8.4-10.2); Carbon Dioxide 24 mmol/L (22-30); Chloride 105 mmol/L (98-107); Glucose 137 mg/dL (74-99); Non-African American GFR(CKD) >90 (>60 ml/min/1.73 sqM); Potassium 4.3 mmol/L (3.5-5.1); Sodium 138 mmol/L (137-145)
--- NOTE | 2023-03-12 11:41 | P.PN ---
Subjective Progress Note Date: 03/12/23 Principal diagnosis: Pneumonia Patient is a 62-year-old male with a past medical history negative for diabetes mellitus hypertension hyperlipidemia NM seizure disorder and COPD presenting to the hospital for evaluation of fever increasing shortness of breath and also hypoxemia with O2 sats in the 80s, patient chest x-ray with low lung volumes denies hazy appearance concerning for possible gram-negative pneumonia. On today's evaluation that is 03/12/2023, the patient continues to be afebrile, , the patient is breathing comfortably on 4 L nasal cannula oxygen , the patient denies chest pain shortness or cough, patient denies nausea / vomiting and no abdominal pain however has been complaining of significant diarrhea only one reported by the PCP this morning White count is 5.4, creatinine 0.86, blood and sputum culture have been negative so far Objective - Vital Signs Vital signs: Vital Signs Temp 98.8 F 03/12/23 08:00 Pulse 68 03/12/23 11:27 Resp 18 03/12/23 08:00 BP 165/70 03/12/23 08:00 Pulse Ox 96 03/12/23 08:00 FiO2 59 03/07/23 08:25 Intake & Output 03/11/23 03/12/23 03/12/23 18:59 06:59 18:59 Intake Total 180 118 Output Total 800 500 Balance -620 -500 118 Weight 98 kg Intake: Oral 180 118 Output: Urine 800 500 Other: Voiding Method External Catheter External Catheter # Bowel Movements 2 2 - Exam GENERAL DESCRIPTION: An elderly male lying in bed in no distress RESPIRATORY SYSTEM: Unlabored breathing , coarse breath sounds bilaterally HEART: S1 S2 regular rate and rhythm , ABDOMEN: Soft , no tenderness EXTREMITIES: No edema feet - Labs CBC & Chem 7: 03/12/23 08:29 03/12/23 08:29 Labs: Abnormal Lab Results - Last 24 Hours (Table) 03/11/23 03/11/23 03/12/23 Range/Units 11:43 19:46 06:02 RBC (4.30-5.90) m/uL Hgb (13.0-17.5) gm/dL Hct (39.0-53.0) % MCV (80.0-100.0) fL Plt Count (150-450) k/uL Lymphocytes # (1.0-4.8) k/uL Glucose (74-99) mg/dL POC Glucose (mg/dL) 185 H 177 H 128 H (70-110) mg/dL 03/12/23 03/12/23 Range/Units 08:29 08:29 RBC 3.37 L (4.30-5.90) m/uL Hgb 11.1 L (13.0-17.5) gm/dL Hct 34.6 L (39.0-53.0) % MCV 102.5 H (80.0-100.0) fL Plt Count 92 L (150-450) k/uL Lymphocytes # 0.6 L (1.0-4.8) k/uL Glucose 137 H (74-99) mg/dL POC Glucose (mg/dL) (70-110) mg/dL Microbiology - Last 24 Hours (Table) 03/08/23 09:10 Legionella Culture - Preliminary Sputum Assessment and Plan (1) Pneumonia Current Visit: No Status: Acute Code(s): J18.9 - PNEUMONIA, UNSPECIFIED ORGANISM SNOMED Code(s): 987341203 Plan: 1patient was in the hospital with increasing shortness of breath patient also was hypoxic did have a fever with generalized hazy appearance high clinical suspicious for pneumonia likely gram-negative 2blood and sputum cultures are so far negative, the patient did have procalcitonin of 0.60 3patient has shown some clinical improvement, the patient is afebrile the patient white count normal culture have been negative so far 3 patient has developed a possible antibiotic associated clinically doubt C. diff and the patient did have a normal white count we will discontinue Zosyn short course of oral Omnicef to finish treatment for underlying Pneumonia Dictation was produced using [employer] dictation software. please excuse any gramma tical, word or spelling errors. Time with Patient: Less than 30
--- NOTE | 2023-03-12 12:06 | P.PN ---
Subjective Progress Note Date: 03/12/23 This is a 62-year-old gentleman recently admitted ,with weakness and falls,discharged on 02/25/2023 to subacute rehab., returning with community- acquired pneumonia. Currently maintaining O2 sats in the mid 90s on 5 L high flow nasal cannula. Afebrile. Preliminary blood cultures reporting no growth after 48 hours. Sputum culture pending. 03/10/2023 continues on Zosyn.maintaining O2 sats in the 90s on 5 L nasal cannula. Denies increased shortness of breath, chest pain or palpitations. Sputum culture finalizing. Cough improving. T-max 99.2, WBC within normal limits.BUN 25, creatinine 0.98. 03/11/2023 oxygenation improving on 5 L nasal cannula, maintaining O2 sats in the high 90s. Flutter valve at bedside. Mild lethargy. T-max 99.5. Blood and sputum cultures negative. Denies chest pain, palpitations or increasing shortness of breath. 03/12/2023 maintaining O2 sats in the high 90s on 4 L nasal cannula. T-max 99.5, WBC 5.4. Blood and sputum cultures currently negative. This morning had an isolated productive cough with thick light rowe sputum. Antibiotics as per ID. Objective - Vital Signs Vital signs: Vital Signs Temp 98.8 F 03/12/23 08:00 Pulse 68 03/12/23 11:27 Resp 18 03/12/23 08:00 BP 165/70 03/12/23 08:00 Pulse Ox 96 03/12/23 08:00 FiO2 59 03/07/23 08:25 Intake & Output 03/11/23 03/12/23 03/12/23 18:59 06:59 18:59 Intake Total 180 118 Output Total 800 500 Balance -620 -500 118 Weight 98 kg Intake: Oral 180 118 Output: Urine 800 500 Other: Voiding Method External Catheter External Catheter # Bowel Movements 2 2 - Exam Gen: well developed, well nourished, NAD, lethargic HEENT: NC/AT, conjunctiva normal, mmm Neck: supple, no JVD CV: RRR, no murmur Lungs: Clear. Unlabored, scattered rhonchi. Abd: soft, nontender, non distended Neuro: AAOx3, no focal deficit Skin: warm and dry, no rash noted - Labs CBC & Chem 7: 03/12/23 08:29 03/12/23 08:29 Labs: Abnormal Lab Results - Last 24 Hours (Table) 03/11/23 03/11/23 03/12/23 Range/Units 11:43 19:46 06:02 RBC (4.30-5.90) m/uL Hgb (13.0-17.5) gm/dL Hct (39.0-53.0) % MCV (80.0-100.0) fL Plt Count (150-450) k/uL Lymphocytes # (1.0-4.8) k/uL Glucose (74-99) mg/dL POC Glucose (mg/dL) 185 H 177 H 128 H (70-110) mg/dL 03/12/23 03/12/23 Range/Units 08:29 08:29 RBC 3.37 L (4.30-5.90) m/uL Hgb 11.1 L (13.0-17.5) gm/dL Hct 34.6 L (39.0-53.0) % MCV 102.5 H (80.0-100.0) fL Plt Count 92 L (150-450) k/uL Lymphocytes # 0.6 L (1.0-4.8) k/uL Glucose 137 H (74-99) mg/dL POC Glucose (mg/dL) (70-110) mg/dL Microbiology - Last 24 Hours (Table) 03/08/23 09:10 Legionella Culture - Preliminary Sputum Assessment and Plan Assessment: Community-acquired pneumonia, possible gram-negative pneumonia, hazy chest x- ray, sputum cultures currently negative, in a patient recently discharged to subacute rehab. Procalcitonin 0.60. Acute hypoxic respiratory failure secondary to the above Acute metabolic, toxic encephalopathy secondary to pain pump History of falls Acute kidney injury, Hypertension Hyperlipidemia Diabetes mellitus Anemia and thrombocytopenia secondary to hepatitis C History of hepatitis C History of benign prostatic hypertrophy History of CVA COPD Prior nicotine dependence of 40 years History of seizure disorder Chronic back pain on pain pump History of anxiety and depression Plan: Continue on current medication regime ,monitoring and symptomatic treatment. Pain management services consulted regarding potential pain pump adjustment, related to lethargy-Aggressive pulmonary toileting, continue on nebulized bronchodilators, antibiotics with Flutter valve reinforced. Prognosis guarded given multiple complex medical issues. The impression and plan of care has been dictated as directed. : I performed a history and examination of this patient, discussed the same with the dictator. I agree with the dictator's note ,documented as a scribe. Any additional findings or plans will be noted.
[2023-03-12 12:22] LABS: Glucose,Whole Blood 181 mg/dL (70-110)
[2023-03-12] MEDS: SODIUM CHLORIDE 0.9% 1,000 ML IV SCH ×5 (12:40→23:57)
--- NOTE | 2023-03-12 13:14 | P.PN ---
Subjective Progress Note Date: 03/12/23 Principal diagnosis: Shortness of breath. This is a 62-year-old male patient with a known history of CVA, seizures, chronic neck and back pain, hypertension, chronic obstructive pulmonary disease, diabetes mellitus, hyperlipidemia, memory impairment, hepatitis C, former smoker. He was recently discharged on 02/25/2023 for weakness and falls. He presented to the emergency room last evening with complaints of increasing shortness of breath and O2 saturations in the mid 80s. Chest x-ray reveals low lung volumes and mild cardiomegaly with bibasilar atelectasis and/or acute infiltrates. Computed tomography scan of the brain revealed no acute intracranial process. 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 White count 5.3. Hemoglobin 11.5. Platelets 77,000. Sodium 139. Potassium 4.8. Bicarb 20. BUN 50. Creatinine 1.90. Glucose 240. Urinalysis clean. Serum alcohol level less than 10. Influenza screen negative. RSV screen negative, COVID-19 screen negative. He is seen today in consultation on the selective care unit. Currently sitting up in bed. Awake. Alert. He is currently on 50% FiO2 via Ventimask with O2 saturations in the 90s. He is afebrile currently but did present with a T-max of 101.5. Hemodynamically stable. He's been initiated and DuoNeb inhalations. Normal saline and 100 ML's per hour. Antibiotics in the form of Zosyn. Progress note dated 03/08/2023. I am seeing this patient in new consultation today 03/08/2023 for an acute COPD exacerbation. Patient is a 74-year-old male patient with a known history of chronic and ongoing tobacco dependence, marijuana use, chronic obstructive pulmonary disease, hyperlipidemia, hypertension, peripheral vascular occlusive disease with previous stent placement, coronary artery disease with previous stent placement, diverticulosis previous history of diverticulitis. He presented to the emergency room on March 06 with complaints of increasing shortness of breath, non-productive cough and congestion for approximate 2 weeks. chest x- ray reveals no acute cardiopulmonary process. We were not consulted until early this morning, the patient was in some respiratory distress and the BiPAP settings 10/5 and an FiO2 of 60%. He is very bronchospastic. He is currently on a combination of bronchodilators, Symbicort inhaler, and IV Solu-Medrol. ABG showed a pO2 of 100%, pCO2 44, pH is 7.38. CBC on arrival was unremarkable. No leukocytosis. Patient is afebrile. Negative for influenza, RSV, COVID-19. Most recent BMP was unremarkable. Troponins less than 0.012 3. Patient will be monitored on the cardiac stepdown unit. Currently, the patient is on 8 L high flow nasal cannula. The patient's getting saline at 100 mL an hour. The patient's pro-calcitonin level was elevated at 0.60. The patient is currently on Zosyn. No new labs today. Blood cultures are currently negative. Yesterday's chest x-ray shows some cardiomegaly, and bibasilar atelectasis and/or infiltrates. The chest x-ray is largely unchanged. Progress note dated 03/09/2023. 62-year-old male with a history of CVA, seizures, chronic neck and back pain, hypertension, COPD, diabetes, hyperlipidemia, memory impairment, hepatitis C, and previous heavy tobacco user. The patient recently presented to the hospital with shortness of breath, and saturations in the mid 80s. Chest x-ray showed evidence of low lung volumes, cardiomegaly, and bibasilar atelectasis or infiltrates. Currently, the patient is on 5 L nasal cannula. He is getting saline at 100 mL an hour. He appears to be doing a bit better. No new labs today. Sputum and blood sampling is negative. No recent chest x-ray to report. Progress note dated 03/10/2023. This is a 62-year-old male seen today in room 370. He has a history of CVA, seizures, chronic neck and back pain, hypertension, COPD, diabetes mellitus, hyperlipidemia, memory impairment, hepatitis C, and previous heavy tobacco use. The patient remains on oxygen at 5 L. He is getting saline at 100 mL an hour. The patient's chest x-ray suggestive left lower lobe infiltrate. The patient continues on Zosyn. Sputum and blood cultures are negative. White count 5.6, hemoglobin 11.3, hematocrit 34.3, platelet count of 81,000. Sodium 138, potassium 4.3, chlorides 108, CO2 25, BUN 25, and creatinine 0.98. Progress note dated 03/11/2023. 62-year-old male seen in room 370. The patient has a history of CVA, seizures, chronic neck and back pain, hypertension, COPD, diabetes, hyperlipidemia, hepatitis C, and previous heavy tobacco use. The patient remains on oxygen at 5 L by nasal cannula. The patient's getting saline at 100 mL an hour. The most recent chest x-ray show significant improvement. No new labs today other than a glucose of 185. Progress note dated 03/12/2023. 62-year-old male seen in room 370. Currently, the patient is on oxygen at 4 L. Yesterday, he was on 5 L. In addition, the patient's getting saline 100 mL an hour. He continues on Zosyn as an antibiotic. We will recheck a pro-calcitonin level on him. Today's labs reveal a white count of 5.4, hemoglobin 11.1, hematocrit 34.6, and a platelet count of 92,000. Sodium 138, potassium 4.3, chlorides 105, CO2 24, BUN 20, creatinine 0.86. Glucose 137. Calcium is normal. Microbiologic studies have all been negative. Chest x-ray showed bilateral infiltrates, and is stable to slightly improved. Objective - Vital Signs Vital signs: Vital Signs Temp 99.3 F 03/12/23 12:00 Pulse 70 03/12/23 12:00 Resp 16 03/12/23 12:00 BP 177/72 03/12/23 12:00 Pulse Ox 94 L 03/12/23 12:00 FiO2 59 03/07/23 08:25 Intake & Output 03/11/23 03/12/23 03/12/23 18:59 06:59 18:59 Intake Total 180 118 Output Total 800 500 Balance -620 -500 118 Weight 98 kg Intake: Oral 180 118 Output: Urine 800 500 Other: Voiding Method External Catheter External Catheter External Catheter # Bowel Movements 2 2 - Exam No acute distress, oriented 3. No conversational dyspnea or use of accessory muscles. The patient's currently on 4 L high flow oxygen. HEENT examination is grossly unremarkable. Neck supple. Full range of motion. No adenopathy thyromegaly or neck vein distention. Cardiovascular examination reveals regular rhythm rate. S1-S2 normal. No S3 or S4. No discernible murmur noted. Heart sounds are distant. Heart rate 68 bpm. Lungs reveal scattered bilateral rhonchi. No wheezes or crackles. Breath sounds are equal bilaterally. Saturations are 96% on 4 L nasal cannula. Abdomen soft bowel sounds are heard. No masses or tenderness. Extremities are intact. No cyanosis clubbing or edema. Skin is without rash or lesion. Neurologic examination is brief but nonfocal. - Labs CBC & Chem 7: 03/12/23 08:29 03/12/23 08:29 Labs: Abnormal Lab Results - Last 24 Hours (Table) 03/11/23 03/12/23 03/12/23 Range/Units 19:46 06:02 08:29 RBC 3.37 L (4.30-5.90) m/uL Hgb 11.1 L (13.0-17.5) gm/dL Hct 34.6 L (39.0-53.0) % MCV 102.5 H (80.0-100.0) fL Plt Count 92 L (150-450) k/uL Lymphocytes # 0.6 L (1.0-4.8) k/uL Glucose (74-99) mg/dL POC Glucose (mg/dL) 177 H 128 H (70-110) mg/dL 03/12/23 03/12/23 Range/Units 08:29 12:07 RBC (4.30-5.90) m/uL Hgb (13.0-17.5) gm/dL Hct (39.0-53.0) % MCV (80.0-100.0) fL Plt Count (150-450) k/uL Lymphocytes # (1.0-4.8) k/uL Glucose 137 H (74-99) mg/dL POC Glucose (mg/dL) 181 H (70-110) mg/dL Microbiology - Last 24 Hours (Table) 03/06/23 19:13 Blood Culture - Final Blood 03/06/23 19:13 Blood Culture - Final Blood 03/08/23 09:10 Legionella Culture - Preliminary Sputum Assessment and Plan Assessment: Acute hypoxemic respiratory failure, secondary to possible healthcare acquired pneumonia. Febrile illness secondary to above. History of CVA. History of seizure disorder. Chronic neck and back pain with pain. Former smoker. Memory impairment. Hypertension. Diabetes mellitus, type II. Hypertension. Chronic obstructive pulmonary disease. History of hepatitis C. Anxiety/depression. Plan: Plan dated 03/08/2023. The patient is seen and evaluated, and room 370. Labs, x-rays, and medications are reviewed. The patient continues on Zosyn. The patient's pro-calcitonin level is elevated, at 0.60. We will continue to follow the patient, and make recommendations along the way. The patient's overall prognosis remains guarded. Further recommendations to come. Plan dated 03/09/2023. The patient is seen today in room 370. His been weaned on the 5 L nasal cannula. Labs, x-rays, and medications are reviewed. The patient's overall prognosis remains very guarded. The patient is receiving saline at 100 mL an hour. We will continue to follow the patient, and make recommendations along the way. Labs, x-rays, and medications are reviewed. Plan dated 03/10/2023. The patient's chest x-rays reviewed. He continues on oxygen at 5 L by nasal cannula. Labs, x-rays, and medications are reviewed. The patient remains on Zosyn. Additional recommendations and suggestions are forthcoming. The patient is receiving saline at 100 mL an hour, and, it is on oxygen at IV liters by nasal cannula. Make recommendations along the way. Prognosis is guarded. The patient appears to be somewhat lethargic and somnolent, when we see him. Plan dated 03/11/2023. The patient's chest x-rays reviewed. The patient continues on oxygen at 5 L. Labs, x-rays, medications are reviewed. Most recent chest x-rays much improved. The patient continues to show clinical and radiographic improvement. The patient's overall prognosis remains guarded. He is a bit lethargic, but does arouse. We will continue to see him and make recommendations along the way. Prognosis is guarded. Plan dated 03/12/2023. The patient is seen today in room 370. He is a DO NOT RESUSCITATE. He's currently on 4 L of oxygen. Saturations are 96%. Labs, x-rays, and medications are reviewed. The patient does continue on Zosyn therapy. We will check another pro-calcitonin level. Patient's overall prognosis remains very guarded. We will continue to follow the patient, and make recommendations along the way. Time with Patient: Less than 30
[2023-03-12 17:09] LABS: Glucose,Whole Blood 167 mg/dL (70-110)
[2023-03-12 20:09] LABS: Glucose,Whole Blood 175 mg/dL (70-110)
[2023-03-12] MEDS: CEFDINIR 300 MG CAP PO SCH (20:22)
[2023-03-13 06:24] LABS: Glucose,Whole Blood 125 mg/dL (70-110)
[2023-03-13] MEDS: INSULIN ASPART (NovoLOG) 100 UNIT/ML VIAL SQ SCH ×4 (06:30→21:22)
[2023-03-13] MEDS: INSULIN DETEMIR (LEVEMIR) 100 UNIT/ML SYR SQ SCH (06:35)
[2023-03-13] MEDS: IPRATROPIUM-ALBUTEROL 3 ML NEB INHALATION SCH ×4 (08:17→21:33)
[2023-03-13] MEDS: LACTULOSE 20 GM/30 ML CUP PO SCH ×3 (10:12→19:44)
[2023-03-13] MEDS: levETIRAcetam 500 MG TAB PO SCH ×2 (10:13→19:49)
[2023-03-13] MEDS: CLOPIDOGREL 75 MG TAB PO SCH (10:13)
[2023-03-13] MEDS: LACOSAMIDE 50 MG TABLET PO SCH ×2 (10:13→19:49)
[2023-03-13] MEDS: FERROUS SULFATE 325 MG TAB PO SCH (10:14)
[2023-03-13] MEDS: ESCITALOPRAM 20 MG TAB PO SCH (10:14)
[2023-03-13] MEDS: CEFDINIR 300 MG CAP PO SCH ×2 (10:14→19:49)
[2023-03-13] MEDS: ATORVASTATIN 80 MG TAB PO SCH (10:14)
[2023-03-13 11:59] LABS: Glucose,Whole Blood 171 mg/dL (70-110)
--- NOTE | 2023-03-13 12:49 | P.PN ---
Subjective Progress Note Date: 03/13/23 Principal diagnosis: Pneumonia Patient is a 62-year-old male with a past medical history negative for diabetes mellitus hypertension hyperlipidemia [place] seizure disorder and COPD presenting to the hospital for evaluation of fever increasing shortness of breath and also hypoxemia with O2 sats in the 80s, patient chest x-ray with low lung volumes denies hazy appearance concerning for possible gram-negative pneumonia. On today's evaluation that is 03/13/2023, the patient remains to be afebrile, , the patient is breathing comfortably on 5 L nasal cannula oxygen , the patient denies chest pain and no significant cough, patient denies abdominal pain, nausea or vomiting , complaining of diarrhea however the patient has been on lactulose with the patient apparently refused this morning per the nursing staff White count is 5.4, creatinine 0.86 as of 03/12/2023 no labs from today, blood and sputum culture have been negative so far Objective - Vital Signs Vital signs: Vital Signs Temp 99.8 F H 03/13/23 10:10 Pulse 64 03/13/23 11:30 Resp 16 03/13/23 10:10 BP 150/76 03/13/23 10:10 Pulse Ox 97 03/13/23 10:10 FiO2 59 03/07/23 08:25 Intake & Output 03/12/23 03/13/23 03/13/23 18:59 06:59 18:59 Intake Total 208 100 Output Total 650 300 350 Balance -442 -300 -250 Intake: Oral 208 100 Output: Urine 650 300 350 Other: Voiding Method External Catheter External Catheter External Catheter # Voids 1 # Bowel Movements 1 - Exam GENERAL DESCRIPTION: An elderly male lying in bed in no distress RESPIRATORY SYSTEM: Unlabored breathing , coarse breath sounds bilaterally HEART: S1 S2 regular rate and rhythm , ABDOMEN: Soft , no tenderness EXTREMITIES: No edema feet - Labs CBC & Chem 7: 03/12/23 08:29 03/12/23 08:29 Labs: Abnormal Lab Results - Last 24 Hours (Table) 03/12/23 03/12/23 03/12/23 Range/Units 08: 12:07 16:56 POC Glucose (mg/dL) 181 H 167 H (70-110) mg/dL Procalcitonin 0.17 H (0.02-0.09) ng/mL 03/12/23 03/13/23 Range/Units 20:08 06:23 POC Glucose (mg/dL) 175 H 125 H (70-110) mg/dL Procalcitonin (0.02-0.09) ng/mL Microbiology - Last 24 Hours (Table) 03/06/23 19:13 Blood Culture - Final Blood 03/06/23 19:13 Blood Culture - Final Blood Assessment and Plan (1) Pneumonia Current Visit: No Status: Acute Code(s): J18.9 - PNEUMONIA, UNSPECIFIED ORGANISM SNOMED Code(s): 925182106 Plan: 1patient was in the hospital with increasing shortness of breath patient also was hypoxic did have a fever with generalized hazy appearance high clinical suspicious for pneumonia likely gram-negative 2blood and sputum cultures are so far negative, the patient did have procalcitonin of 0.60 3patient has shown some clinical improvement, the patient is afebrile the patient white count normal culture have been negative so far 3 patient that a more likely related to lactulose, no clinical suspicious for C. diff in a patient with normal white count continue with the [employer] Dictation was produced using [employer] dictation software. please excuse any grammatical, word or spelling errors. Time with Patient: Less than 30
[2023-03-13] MEDS: PREGABALIN 100 MG CAP PO SCH ×2 (12:51→19:52)
[2023-03-13] MEDS: PRIMIDONE 50 MG TAB PO SCH (12:52)
--- NOTE | 2023-03-13 13:16 | P.PN ---
Subjective Progress Note Date: 03/13/23 This is a 62-year-old gentleman recently admitted ,with weakness and falls,discharged on 02/25/2023 to subacute rehab., returning with community- acquired pneumonia. Currently maintaining O2 sats in the mid 90s on 5 L high flow nasal cannula. Afebrile. Preliminary blood cultures reporting no growth after 48 hours. Sputum culture pending. 03/10/2023 continues on Zosyn.maintaining O2 sats in the 90s on 5 L nasal cannula. Denies increased shortness of breath, chest pain or palpitations. Sputum culture finalizing. Cough improving. T-max 99.2, WBC within normal limits.BUN 25, creatinine 0.98. 03/11/2023 oxygenation improving on 5 L nasal cannula, maintaining O2 sats in the high 90s. Flutter valve at bedside. Mild lethargy. T-max 99.5. Blood and sputum cultures negative. Denies chest pain, palpitations or increasing shortness of breath. 03/12/2023 maintaining O2 sats in the high 90s on 4 L nasal cannula. T-max 99.5, WBC 5.4. Blood and sputum cultures currently negative. This morning had an isolated productive cough with thick light rowe sputum. Antibiotics as per ID. 03/13. Patient seen and examined. States he feels better. Tolerating good diet. Denies any shortness of breath at rest. REVIEW OF SYSTEMS: CONSTITUTIONAL: No fever, no malaise,. CARDIOVASCULAR: No chest pain, no palpitations, no syncope. PULMONARY: No shortness of breath, no cough, GASTROINTESTINAL: No diarrhea, no nausea, no vomiting, no abdominal pain. NEUROLOGICAL: No headaches, no weakness, PHYSICAL EXAMINATION: GENERAL: The patient is alert and oriented x3, not in any acute distress. Well developed, well nourished. HEENT: Pupils are round and equally reacting to light. EOMI. No scleral icterus. No conjunctival pallor. Normocephalic, atraumatic. No pharyngeal erythema. No thyromegaly. CARDIOVASCULAR: S1 and S2 present. No murmurs, rubs, or gallops. PULMONARY: Diminished breath sounds at the bases bilaterally ABDOMEN: Soft, nontender, nondistended, normoactive bowel sounds. No palpable organomegaly. MUSCULOSKELETAL: No joint swelling or deformity. EXTREMITIES: No cyanosis, clubbing, or pedal edema. NEUROLOGICAL: Gross neurological examination did not reveal any focal deficits. SKIN: No rashes. Assessment and plan Community-acquired pneumonia, possible gram-negative pneumonia, hazy chest x- ray, sputum cultures currently negative, in a patient recently discharged to subacute rehab. Procalcitonin 0.60. Acute hypoxic respiratory failure secondary to the above Acute metabolic, toxic encephalopathy secondary to pain pump History of falls Acute kidney injury, Hypertension Hyperlipidemia Diabetes mellitus Anemia and thrombocytopenia secondary to hepatitis C History of hepatitis C History of benign prostatic hypertrophy History of CVA COPD Prior nicotine dependence of 40 years History of seizure disorder Chronic back pain on pain pump History of anxiety and depression Monitor vital signs Monitor CBC Monitor CMP Continue breathing treatments Continue aggressive bronchopulmonary hygiene Pain medicine team consulted for pain pump adjustment blood and sputum cultures are so far negative, the patient did have procalcitonin of 0.60 Continue Cefdinir ID following Pulmonology following Labs and medication were reviewed.. Continue same treatment. Continue with symptomatic treatment. Resume home medication. Monitor labs and vitals. DVT and GI prophylaxis. Further recommendations as per clinical course of the patient Dictation was produced using [employer] dictation software. please excuse any grammatical, word or spelling errors. Objective - Vital Signs Vital signs: Vital Signs Temp 99.8 F H 03/13/23 10:10 Pulse 64 03/13/23 10:10 Resp 16 03/13/23 10:10 BP 150/76 03/13/23 10:10 Pulse Ox 97 03/13/23 10:10 FiO2 59 03/07/23 08:25 Intake & Output 03/12/23 03/13/23 03/13/23 18:59 06:59 18:59 Intake Total 208 100 Output Total 650 300 350 Balance -442 -300 -250 Intake: Oral 208 100 Output: Urine 650 300 350 Other: Voiding Method External Catheter External Catheter # Voids 1 # Bowel Movements 1 - Labs CBC & Chem 7: 03/12/23 08:29 03/12/23 08:29 Labs: Abnormal Lab Results - Last 24 Hours (Table) 03/12/23 03/12/23 03/12/23 Range/Units 08:29 12:07 16:56 POC Glucose (mg/dL) 181 H 167 H (70-110) mg/dL Procalcitonin 0.17 H (0.02-0.09) ng/mL 03/12/23 03/13/23 Range/Units 20:08 06:23 POC Glucose (mg/dL) 175 H 125 H (70-110) mg/dL Procalcitonin (0.02-0.09) ng/mL Microbiology - Last 24 Hours (Table) 03/06/23 19:13 Blood Culture - Final Blood 03/06/23 19:13 Blood Culture - Final Blood
--- NOTE | 2023-03-13 13:40 | P.PN ---
Subjective Progress Note Date: 03/13/23 Principal diagnosis: Shortness of breath. This is a 62-year-old male patient with a known history of CVA, seizures, chronic neck and back pain, hypertension, chronic obstructive pulmonary disease, diabetes mellitus, hyperlipidemia, memory impairment, hepatitis C, former smoker. He was recently discharged on 02/25/2023 for weakness and falls. He presented to the emergency room last evening with complaints of increasing shortness of breath and O2 saturations in the mid 80s. Chest x-ray reveals low lung volumes and mild cardiomegaly with bibasilar atelectasis and/or acute infiltrates. Computed tomography scan of the brain revealed no acute intracranial process. 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 White count 5.3. Hemoglobin 11.5. Platelets 77,000. Sodium 139. Potassium 4.8. Bicarb 20. BUN 50. Creatinine 1.90. Glucose 240. Urinalysis clean. Serum alcohol level less than 10. Influenza screen negative. RSV screen negative, COVID-19 screen negative. He is seen today in consultation on the selective care unit. Currently sitting up in bed. Awake. Alert. He is currently on 50% FiO2 via Ventimask with O2 saturations in the 90s. He is afebrile currently but did present with a T-max of 101.5. Hemodynamically stable. He's been initiated and DuoNeb inhalations. Normal saline and 100 ML's per hour. Antibiotics in the form of Zosyn. Progress note dated 03/08/2023. I am seeing this patient in new consultation today 03/08/2023 for an acute COPD exacerbation. Patient is a 74-year-old male patient with a known history of chronic and ongoing tobacco dependence, marijuana use, chronic obstructive pulmonary disease, hyperlipidemia, hypertension, peripheral vascular occlusive disease with previous stent placement, coronary artery disease with previous stent placement, diverticulosis previous history of diverticulitis. He presented to the emergency room on March 06 with complaints of increasing shortness of breath, non-productive cough and congestion for approximate 2 weeks. chest x- ray reveals no acute cardiopulmonary process. We were not consulted until early this morning, the patient was in some respiratory distress and the BiPAP settings 10/5 and an FiO2 of 60%. He is very bronchospastic. He is currently on a combination of bronchodilators, Symbicort inhaler, and IV Solu-Medrol. ABG showed a pO2 of 100%, pCO2 44, pH is 7.38. CBC on arrival was unremarkable. No leukocytosis. Patient is afebrile. Negative for influenza, RSV, COVID-19. Most recent BMP was unremarkable. Troponins less than 0.012 3. Patient will be monitored on the cardiac stepdown unit. Currently, the patient is on 8 L high flow nasal cannula. The patient's getting saline at 100 mL an hour. The patient's pro-calcitonin level was elevated at 0.60. The patient is currently on Zosyn. No new labs today. Blood cultures are currently negative. Yesterday's chest x-ray shows some cardiomegaly, and bibasilar atelectasis and/or infiltrates. The chest x-ray is largely unchanged. Progress note dated 03/09/2023. 62-year-old male with a history of CVA, seizures, chronic neck and back pain, hypertension, COPD, diabetes, hyperlipidemia, memory impairment, hepatitis C, and previous heavy tobacco user. The patient recently presented to the hospital with shortness of breath, and saturations in the mid 80s. Chest x-ray showed evidence of low lung volumes, cardiomegaly, and bibasilar atelectasis or infiltrates. Currently, the patient is on 5 L nasal cannula. He is getting saline at 100 mL an hour. He appears to be doing a bit better. No new labs today. Sputum and blood sampling is negative. No recent chest x-ray to report. Progress note dated 03/10/2023. This is a 62-year-old male seen today in room 370. He has a history of CVA, seizures, chronic neck and back pain, hypertension, COPD, diabetes mellitus, hyperlipidemia, memory impairment, hepatitis C, and previous heavy tobacco use. The patient remains on oxygen at 5 L. He is getting saline at 100 mL an hour. The patient's chest x-ray suggestive left lower lobe infiltrate. The patient continues on Zosyn. Sputum and blood cultures are negative. White count 5.6, hemoglobin 11.3, hematocrit 34.3, platelet count of 81,000. Sodium 138, potassium 4.3, chlorides 108, CO2 25, BUN 25, and creatinine 0.98. Progress note dated 03/11/2023. 62-year-old male seen in room 370. The patient has a history of CVA, seizures, chronic neck and back pain, hypertension, COPD, diabetes, hyperlipidemia, hepatitis C, and previous heavy tobacco use. The patient remains on oxygen at 5 L by nasal cannula. The patient's getting saline at 100 mL an hour. The most recent chest x-ray show significant improvement. No new labs today other than a glucose of 185. Progress note dated 03/12/2023. 62-year-old male seen in room 370. Currently, the patient is on oxygen at 4 L. Yesterday, he was on 5 L. In addition, the patient's getting saline 100 mL an hour. He continues on Zosyn as an antibiotic. We will recheck a pro-calcitonin level on him. Today's labs reveal a white count of 5.4, hemoglobin 11.1, hematocrit 34.6, and a platelet count of 92,000. Sodium 138, potassium 4.3, chlorides 105, CO2 24, BUN 20, creatinine 0.86. Glucose 137. Calcium is normal. Microbiologic studies have all been negative. Chest x-ray showed bilateral infiltrates, and is stable to slightly improved. Progress note dated 03/13/2023. 62-year-old male again seen in room 370. Currently, he's on 4 L of oxygen. The patient is not receiving any IV fluids. Clinically, he looks about the same. He get a very flat affect. He is a very poor historian as well. No new labs today other than a glucose of 171. Infectious disease doctor, stopped his IV antibiotics, and placed him on Omnicef, 300 mg twice a day. Objective - Vital Signs Vital signs: Vital Signs Temp 98.8 F 03/13/23 12:55 Pulse 74 03/13/23 12:55 Resp 16 03/13/23 12:55 BP 147/73 03/13/23 12:55 Pulse Ox 93 L 03/13/23 12:55 FiO2 59 03/07/23 08:25 Intake & Output 03/12/23 03/13/23 03/13/23 18:59 06:59 18:59 Intake Total 208 100 Output Total 650 300 350 Balance -582 -300 -250 Intake: Oral 208 100 Output: Urine 650 300 350 Other: Voiding Method External Catheter External Catheter External Catheter # Voids 1 # Bowel Movements 1 - Exam No acute distress, oriented 3. No conversational dyspnea or use of accessory muscles. The patient's currently on 4 L high flow oxygen. HEENT examination is grossly unremarkable. Neck supple. Full range of motion. No adenopathy thyromegaly or neck vein distention. Cardiovascular examination reveals regular rhythm rate. S1-S2 normal. No S3 or S4. No discernible murmur noted. Heart sounds are distant. Heart rate 74 bpm. Lungs reveal scattered bilateral rhonchi. No wheezes or crackles. Breath sounds are equal bilaterally. Saturations are 93% on 4 L nasal cannula. Abdomen soft bowel sounds are heard. No masses or tenderness. Extremities are intact. No cyanosis clubbing or edema. Skin is without rash or lesion. Neurologic examination is brief but nonfocal. - Labs CBC & Chem 7: 03/12/23 08:29 03/12/23 08:29 Labs: Abnormal Lab Results - Last 24 Hours (Table) 03/12/23 03/12/23 03/12/23 Range/Units 08: 16:56 20:08 POC Glucose (mg/dL) 167 H 175 H (70-110) mg/dL Procalcitonin 0.17 H (0.02-0.09) ng/mL 03/13/23 03/13/23 Range/Units 06:23 11:57 POC Glucose (mg/dL) 125 H 171 H (70-110) mg/dL Procalcitonin (0.02-0.09) ng/mL Microbiology - Last 24 Hours (Table) 03/06/23 19:13 Blood Culture - Final Blood 03/06/23 19:13 Blood Culture - Final Blood Assessment and Plan Assessment: Acute hypoxemic respiratory failure, secondary to possible healthcare acquired pneumonia. Febrile illness secondary to above. History of CVA. History of seizure disorder. Chronic neck and back pain with pain. Former smoker. Memory impairment. Hypertension. Diabetes mellitus, type II. Hypertension. Chronic obstructive pulmonary disease. History of hepatitis C. Anxiety/depression. Plan: Plan dated 03/08/2023. The patient is seen and evaluated, and room 370. Labs, x-rays, and medications are reviewed. The patient continues on Zosyn. The patient's pro-calcitonin level is elevated, at 0.60. We will continue to follow the patient, and make recommendations along the way. The patient's overall prognosis remains guarded. Further recommendations to come. Plan dated 03/09/2023. The patient is seen today in room 370. His been weaned on the 5 L nasal cannula. Labs, x-rays, and medications are reviewed. The patient's overall prognosis remains very guarded. The patient is receiving saline at 100 mL an hour. We will continue to follow the patient, and make recommendations along the way. Labs, x-rays, and medications are reviewed. Plan dated 03/10/2023. The patient's chest x-rays reviewed. He continues on oxygen at 5 L by nasal cannula. Labs, x-rays, and medications are reviewed. The patient remains on Zosyn. Additional recommendations and suggestions are forthcoming. The patient is receiving saline at 100 mL an hour, and, it is on oxygen at IV liters by nasal cannula. Make recommendations along the way. Prognosis is guarded. The patient appears to be somewhat lethargic and somnolent, when we see him. Plan dated 03/11/2023. The patient's chest x-rays reviewed. The patient continues on oxygen at 5 L. Labs, x-rays, medications are reviewed. Most recent chest x-rays much improved. The patient continues to show clinical and radiographic improvement. The patient's overall prognosis remains guarded. He is a bit lethargic, but does arouse. We will continue to see him and make recommendations along the way. Prognosis is guarded. Plan dated 03/12/2023. The patient is seen today in room 370. He is a DO NOT RESUSCITATE. He's currently on 4 L of oxygen. Saturations are 96%. Labs, x-rays, and medications are reviewed. The patient does continue on Zosyn therapy. We will check another pro-calcitonin level. Patient's overall prognosis remains very guarded. We will continue to follow the patient, and make recommendations along the way. Plan dated 03/13/2023. The patient is seen again in room 370. He is a DO NOT RESUSCITATE patient. Is currently on 4 L of nasal oxygen. His repeat pro-calcitonin level was 0.17. The infectious disease doctor stopped the Zosyn, and placed him on Omnicef, 300 mg twice a day. Labs, x-rays, and medications are reviewed. We will continue to follow the patient and make recommendations along the way. His prognosis is guarded. Time with Patient: Less than 30
[2023-03-13 16:57] LABS: Glucose,Whole Blood 168 mg/dL (70-110)
[2023-03-13 20:01] LABS: Glucose,Whole Blood 158 mg/dL (70-110)
[2023-03-14 06:26] LABS: Glucose,Whole Blood 121 mg/dL (70-110)
[2023-03-14] MEDS: INSULIN ASPART (NovoLOG) 100 UNIT/ML VIAL SQ SCH ×4 (06:31→20:52)
[2023-03-14] MEDS: INSULIN DETEMIR (LEVEMIR) 100 UNIT/ML SYR SQ SCH (06:33)
[2023-03-14 08:52] LABS: Basophils % (A) 0 %; Eosinophils # (A) 0.2 k/uL (0-0.7); Eosinophils % (A) 3 %; HCT 33.3 % (39.0-53.0); Lymphocytes # (A) 0.6 k/uL (1.0-4.8); Lymphocytes % (A) 11 %; MCV 99.9 fL (80.0-100.0); Mean Platelet Volume 7.5; Monocytes # (A) 0.3 k/uL (0-1.0); Monocytes % (A) 5 %; Neutrophils # (A) 4.4 k/uL (1.3-7.7); Neutrophils % (A) 79 %; Platelet Count 104 k/uL (150-450); RBC 3.34 m/uL (4.30-5.90); RDW 13.4 % (11.5-15.5); WBC 5.6 k/uL (3.8-10.6)
[2023-03-14] MEDS: IPRATROPIUM-ALBUTEROL 3 ML NEB INHALATION SCH ×4 (09:17→20:29)
[2023-03-14 09:37] LABS: ALT 50 U/L (4-49); AST 72 U/L (17-59); African American GFR (CKD) >90 (>60 ml/min/1.73 sqM); Alkaline Phosphatase 101 U/L (38-126); Anion Gap 9 mmol/L; Blood Urea Nitrogen 17 mg/dL (9-20); Calcium 8.9 mg/dL (8.4-10.2); Carbon Dioxide 27 mmol/L (22-30); Chloride 104 mmol/L (98-107); Glucose 138 mg/dL (74-99); Non-African American GFR(CKD) >90 (>60 ml/min/1.73 sqM); Sodium 140 mmol/L (137-145); Total Bilirubin 0.6 mg/dL (0.2-1.3); Total Protein 6.4 g/dL (6.3-8.2)
[2023-03-14] MEDS: LACOSAMIDE 50 MG TABLET PO SCH ×2 (10:31→20:52)
[2023-03-14] MEDS: ATORVASTATIN 80 MG TAB PO SCH (10:32)
[2023-03-14] MEDS: PRIMIDONE 50 MG TAB PO SCH ×2 (10:32→20:47)
[2023-03-14] MEDS: levETIRAcetam 500 MG TAB PO SCH (10:32)
[2023-03-14] MEDS: CLOPIDOGREL 75 MG TAB PO SCH (10:32)
[2023-03-14] MEDS: ESCITALOPRAM 20 MG TAB PO SCH ×2 (10:33→20:27)
[2023-03-14] MEDS: FERROUS SULFATE 325 MG TAB PO SCH (10:33)
[2023-03-14] MEDS: LACTULOSE 20 GM/30 ML CUP PO SCH ×3 (10:33→20:46)
[2023-03-14] MEDS: PREGABALIN 100 MG CAP PO SCH ×2 (10:33→20:48)
[2023-03-14] MEDS: CEFDINIR 300 MG CAP PO SCH ×2 (10:33→20:52)
--- NOTE | 2023-03-14 10:59 | P.CN ---
Psychiatric Consult - . Consult date: 03/14/23 Consult:: 03/14/23 10:48 Patient Name: Sukh Zamarripa Date of : 1960 Patient Status: Inpatient Attending Provider: Dmitriy Liu Date: Psychiatric evaluation on Sukh Zamarripa who is [id number] male patient with a known history of CVA, seizures, chronic neck and back pain, hypertension, chronic obstructive pulmonary disease, diabetes mellitus, hyperlipidemia, memory impairment, hepatitis C, former smoker. He was recently discharged on 02/25/2023 for weakness and falls. He presented to the emergency room last evening with complaints of increasing shortness of breath and O2 saturations in the mid 80s. Chest x-ray reveals low lung volumes and mild cardiomegaly with bibasilar atelectasis and/or acute infiltrates. Computed tomography scan of the brain revealed no acute intracranial process. 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 White count 5.3. Hemoglobin 11.5. Platelets 77,000. Sodium 139. Potassium 4.8. Bicarb 20. BUN 50. Creatinine 1.90. Glucose 240. Urinalysis clean. Serum alcohol level less than 10. Influenza screen negative. RSV screen negative, COVID-19 screen negative. 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 Patient has multiple tattoos over his body Patient appears to have fair hygiene and grooming. Good eye contact. Behavior: Patient is laying down without any agitated behavior. Attempts to cooperate. Speech: Patient's speech is fluent and nonpressured. She'll however is somewhat hesitant and has difficulty with memory and recall Mood/Affect: Patient reports their mood is anxious, affect is congruent and constricted. Suicidality/Homicidality: Patient denies having any homicidal ideation intent or plan. She does not admit to having suicidal thoughts, no intent or plan. Perceptions: Patient denies any visual hallucinations and denies any auditory hallucinations Though content/process: There is no evidence of any delusional thought content and thought process is linear and goal-directed. She'll however has difficulty with memory and recall and some STE[employer] WORK[employer] obtundation Memory and concentration: Alert and oriented to place and person only Patient however was smart enough to look at the board when asked about the date and year Judgment and insight: Improving Diagnostic impression: Major neurocognitive disorder unspecified Mood disorder by history Cannabis use disorder Summary and plan : This is a middle-aged male who is currently hospitalized with a known history of CVA seizures chronic neck and back pain and hypertension COPD diabetes mellitus hyperlipidemia memory impairment hepatitis C and is a former smoker Patient is vague about his past history of depression which needs to be further explored when medically he becomes clearer Patient also could benefit from stopping the cannabis use in the context of his COPD This also needs to be further explored when his thinking is clear At this point the patient seems to be too fatigued and unable to parts been adequately in a clear mental status examination The nursing reports that she has been holding some of the psychiatric medications that include Celexa and Abilify and that he seems to be waking up and is less obtunded We'll follow this patient along with you. Thank you very much for a current referral please refer to contact me if any further questions Robert Hunter M.D.
[2023-03-14 11:41] LABS: Glucose,Whole Blood 197 mg/dL (70-110)
--- NOTE | 2023-03-14 12:08 | P.PN ---
Subjective Progress Note Date: 03/14/23 This is a 62-year-old gentleman recently admitted ,with weakness and falls,discharged on 02/25/2023 to subacute rehab., returning with community- acquired pneumonia. Currently maintaining O2 sats in the mid 90s on 5 L high flow nasal cannula. Afebrile. Preliminary blood cultures reporting no growth after 48 hours. Sputum culture pending. 03/10/2023 continues on Zosyn.maintaining O2 sats in the 90s on 5 L nasal cannula. Denies increased shortness of breath, chest pain or palpitations. Sputum culture finalizing. Cough improving. T-max 99.2, WBC within normal limits.BUN 25, creatinine 0.98. 03/11/2023 oxygenation improving on 5 L nasal cannula, maintaining O2 sats in the high 90s. Flutter valve at bedside. Mild lethargy. T-max 99.5. Blood and sputum cultures negative. Denies chest pain, palpitations or increasing shortness of breath. 03/12/2023 maintaining O2 sats in the high 90s on 4 L nasal cannula. T-max 99.5, WBC 5.4. Blood and sputum cultures currently negative. This morning had an isolated productive cough with thick light rowe sputum. Antibiotics as per ID. 03/13. Patient seen and examined. States he feels better. Tolerating good diet. Denies any shortness of breath at rest. 03/14. Patient seen and examined. Labs work done this morning showed WBC 5.6, hemoglobin 11, sodium 140, potassium 4, BUN 17, creatinine 0.8 . States he feels better but still complaining of lethargy and weakness. Psychiatry consulted REVIEW OF SYSTEMS: CONSTITUTIONAL: No fever, no malaise,. CARDIOVASCULAR: No chest pain, no palpitations, no syncope. PULMONARY: No shortness of breath, no cough, GASTROINTESTINAL: No diarrhea, no nausea, no vomiting, no abdominal pain. NEUROLOGICAL: No headaches, no weakness, PHYSICAL EXAMINATION: GENERAL: The patient is alert and oriented x3, not in any acute distress. Well developed, well nourished. HEENT: Pupils are round and equally reacting to light. EOMI. No scleral icterus. No conjunctival pallor. Normocephalic, atraumatic. No pharyngeal erythema. No thyromegaly. CARDIOVASCULAR: S1 and S2 present. No murmurs, rubs, or gallops. PULMONARY: Diminished breath sounds at the bases bilaterally ABDOMEN: Soft, nontender, nondistended, normoactive bowel sounds. No palpable organomegaly. MUSCULOSKELETAL: No joint swelling or deformity. EXTREMITIES: No cyanosis, clubbing, or pedal edema. NEUROLOGICAL: Gross neurological examination did not reveal any focal deficits. SKIN: No rashes. Assessment and plan Community-acquired pneumonia, possible gram-negative pneumonia, hazy chest x- ray, sputum cultures currently negative, in a patient recently discharged to subacute rehab. Procalcitonin 0.60. Acute hypoxic respiratory failure secondary to the above Acute metabolic, toxic encephalopathy secondary to pain pump History of falls Acute kidney injury, Hypertension Hyperlipidemia Diabetes mellitus Anemia and thrombocytopenia secondary to hepatitis C History of hepatitis C History of benign prostatic hypertrophy History of CVA COPD Prior nicotine dependence of 40 years History of seizure disorder Chronic back pain on pain pump History of anxiety and depression Monitor vital signs Monitor CBC Monitor CMP Continue breathing treatments Continue aggressive bronchopulmonary hygiene Pain medicine team consulted for pain pump adjustment blood and sputum cultures are so far negative, the patient did have procalcitonin of 0.60 Continue Cefdinir ID following Pulmonology following Labs and medication were reviewed.. Continue same treatment. Continue with symptomatic treatment. Resume home medication. Monitor labs and vitals. DVT and GI prophylaxis. Further recommendations as per clinical course of the patient Dictation was produced using [employer] dictation software. please excuse any grammatical, word or spelling errors. Objective - Vital Signs Vital signs: Vital Signs Temp 97.9 F 03/14/23 03:27 Pulse 64 03/14/23 09:28 Resp 18 03/14/23 03:27 BP 153/68 03/14/23 03:27 Pulse Ox 97 03/14/23 09:19 FiO2 59 03/07/23 08:25 Intake & Output 03/13/23 03/14/23 03/14/23 18:59 06:59 18:59 Intake Total 220 480 Output Total 600 200 Balance -380 280 Intake: Oral 220 480 Output: Urine 600 200 Other: Voiding Method External Catheter External Catheter # Bowel Movements 1 - Labs CBC & Chem 7: 03/14/23 07:57 03/14/23 07:57 Labs: Abnormal Lab Results - Last 24 Hours (Table) 03/13/23 03/13/23 03/13/23 Range/Units 11:57 16:55 20:00 RBC (4.30-5.90) m/uL Hgb (13.0-17.5) gm/dL Hct (39.0-53.0) % Plt Count (150-450) k/uL Lymphocytes # (1.0-4.8) k/uL Glucose (74-99) mg/dL POC Glucose (mg/dL) 171 H 168 H 158 H (70-110) mg/dL AST (17-59) U/L ALT (4-49) U/L Albumin (3.5-5.0) g/dL 03/14/23 03/14/23 03/14/23 Range/Units 06:24 07:57 07:57 RBC 3.34 L (4.30-5.90) m/uL Hgb 11.0 L (13.0-17.5) gm/dL Hct 33.3 L (39.0-53.0) % Plt Count 104 L (150-450) k/uL Lymphocytes # 0.6 L (1.0-4.8) k/uL Glucose 138 H (74-99) mg/dL POC Glucose (mg/dL) 121 H (70-110) mg/dL AST 72 H (17-59) U/L ALT 50 H (4-49) U/L Albumin 3.0 L (3.5-5.0) g/dL
--- NOTE | 2023-03-14 13:32 | P.PN ---
Subjective Progress Note Date: 03/14/23 This is a 62-year-old male patient with a known history of CVA, seizures, chronic neck and back pain, hypertension, chronic obstructive pulmonary disease, diabetes mellitus, hyperlipidemia, memory impairment, hepatitis C, former smoker. He was recently discharged on 02/25/2023 for weakness and falls. He presented to the emergency room last evening with complaints of increasing shortness of breath and O2 saturations in the mid 80s. Chest x-ray reveals low lung volumes and mild cardiomegaly with bibasilar atelectasis and/or acute infiltrates. Computed tomography scan of the brain revealed no acute intracranial process. 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 White count 5.3. Hemoglobin 11.5. Platelets 77,000. Sodium 139. Potassium 4.8. Bicarb 20. BUN 50. Creatinine 1.90. Glucose 240. Urinalysis clean. Serum alcohol level less than 10. Influenza screen negative. RSV screen negative, COVID-19 screen negative. He is seen today in consultation on the selective care unit. Currently sitting up in bed. Awake. Alert. He is currently on 50% FiO2 via Ventimask with O2 saturations in the 90s. He is afebrile currently but did present with a T-max of 101.5. Hemodynamically stable. He's been initiated and DuoNeb inhalations. Normal saline and 100 ML's per hour. Antibiotics in the form of Zosyn. Progress note dated 03/08/2023. I am seeing this patient in new consultation today 03/08/2023 for an acute COPD exacerbation. Patient is a 74-year-old male patient with a known history of chronic and ongoing tobacco dependence, marijuana use, chronic obstructive pulmonary disease, hyperlipidemia, hypertension, peripheral vascular occlusive disease with previous stent placement, coronary artery disease with previous stent placement, diverticulosis previous history of diverticulitis. He presented to the emergency room on March 06 with complaints of increasing shortness of breath, non-productive cough and congestion for approximate 2 weeks. chest x- ray reveals no acute cardiopulmonary process. We were not consulted until early this morning, the patient was in some respiratory distress and the BiPAP settings 10/5 and an FiO2 of 60%. He is very bronchospastic. He is currently on a combination of bronchodilators, Symbicort inhaler, and IV Solu-Medrol. ABG showed a pO2 of 100%, pCO2 44, pH is 7.38. CBC on arrival was unremarkable. No leukocytosis. Patient is afebrile. Negative for influenza, RSV, COVID-19. Most recent BMP was unremarkable. Troponins less than 0.012 3. Patient will be monitored on the cardiac stepdown unit. Currently, the patient is on 8 L high flow nasal cannula. The patient's getting saline at 100 mL an hour. The patient's pro-calcitonin level was elevated at 0.60. The patient is currently on Zosyn. No new labs today. Blood cultures are currently negative. Yesterday's chest x-ray shows some cardiomegaly, and bibasilar atelectasis and/or infiltrates. The chest x-ray is largely unchanged. Progress note dated 03/09/2023. 62-year-old male with a history of CVA, seizures, chronic neck and back pain, hypertension, COPD, diabetes, hyperlipidemia, memory impairment, hepatitis C, and previous heavy tobacco user. The patient recently presented to the hospital with shortness of breath, and saturations in the mid 80s. Chest x-ray showed evidence of low lung volumes, cardiomegaly, and bibasilar atelectasis or infilt rates. Currently, the patient is on 5 L nasal cannula. He is getting saline at 100 mL an hour. He appears to be doing a bit better. No new labs today. Sputum and blood sampling is negative. No recent chest x-ray to report. Progress note dated 03/10/2023. This is a 62-year-old male seen today in room 370. He has a history of CVA, seizures, chronic neck and back pain, hypertension, COPD, diabetes mellitus, hyperlipidemia, memory impairment, hepatitis C, and previous heavy tobacco use. The patient remains on oxygen at 5 L. He is getting saline at 100 mL an hour. The patient's chest x-ray suggestive left lower lobe infiltrate. The patient continues on Zosyn. Sputum and blood cultures are negative. White count 5.6, hemoglobin 11.3, hematocrit 34.3, platelet count of 81,000. Sodium 138, potassium 4.3, chlorides 108, CO2 25, BUN 25, and creatinine 0.98. Progress note dated 03/11/2023. 62-year-old male seen in room 370. The patient has a history of CVA, seizures, chronic neck and back pain, hypertension, COPD, diabetes, hyperlipidemia, hepatitis C, and previous heavy tobacco use. The patient remains on oxygen at 5 L by nasal cannula. The patient's getting saline at 100 mL an hour. The most recent chest x-ray show significant improvement. No new labs today other than a glucose of 185. Progress note dated 03/12/2023. 62-year-old male seen in room 370. Currently, the patient is on oxygen at 4 L. Yesterday, he was on 5 L. In addition, the patient's getting saline 100 mL an hour. He continues on Zosyn as an antibiotic. We will recheck a pro-calcitonin level on him. Today's labs reveal a white count of 5.4, hemoglobin 11.1, hematocrit 34.6, and a platelet count of 92,000. Sodium 138, potassium 4.3, chlorides 105, CO2 24, BUN 20, creatinine 0.86. Glucose 137. Calcium is normal. Microbiologic studies have all been negative. Chest x-ray showed bilat eral infiltrates, and is stable to slightly improved. Progress note dated 03/13/2023. 62-year-old male again seen in room 370. Currently, he's on 4 L of oxygen. The patient is not receiving any IV fluids. Clinically, he looks about the same. He get a very flat affect. He is a very poor historian as well. No new labs today other than a glucose of 171. Infectious disease doctor, stopped his IV antibiotics, and placed him on Omnicef, 300 mg twice a day. The patient is seen today 03/14/2023 in follow-up on the selective care unit. He is currently resting in bed. He is awake and alert. He is slow to respond. He is quite weak and debilitated. He is maintaining O2 saturations in the upper 90s on 5 L/m per nasal cannula. He's afebrile. Hemodynamically stable. Blood cultures revealed no growth. Legionella culture negative. Sputum culture no growth. White count 5.6. Hemoglobin 11.0. Platelets 104. Sodium 140. Potassium 4.0. Bicarb 27. BUN 17. Creatinine 0.82. Glucose 139. AST 72. ALT 50. He remains on antibiotics in the form of Omnicef. Objective - Vital Signs Vital signs: Vital Signs Temp 98.3 F 03/14/23 10:30 Pulse 76 03/14/23 12:21 Resp 16 03/14/23 10:30 BP 169/73 03/14/23 10:30 Pulse Ox 97 03/14/23 10:30 FiO2 59 03/07/23 08:25 Intake & Output 03/13/23 03/14/23 03/14/23 18:59 06:59 18:59 Intake Total 220 480 Output Total 600 200 Balance -380 280 Intake: Oral 220 480 Output: Urine 600 200 Other: Voiding Method External Catheter External Catheter External Catheter # Bowel Movements 1 - Exam GENERAL EXAM: Alert, slow to respond, weak, debilitated 62-year-old male, on 5 L nasal cannula, fairly comfortable in no apparent distress. HEAD: Normocephalic. EYES: Normal reaction of pupils, equal size. NOSE: Clear with pink turbinates. THROAT: No erythema or exudates. NECK: No masses, no JVD. CHEST: No chest wall deformity. LUNGS: Equal air entry with few scattered rhonchi. CVS: S1 and S2 normal with no audible murmur, regular rhythm. ABDOMEN: No hepatosplenomegaly, normal bowel sounds, no guarding or rigidity. SPINE: No scoliosis or deformity SKIN: No rashes CENTRAL NERVOUS SYSTEM: No focal deficits, tone is normal in all 4 extremities. EXTREMITIES: There is 1-2+ peripheral edema. No clubbing, no cyanosis. Peripheral pulses are intact. - Labs CBC & Chem 7: 03/14/23 07:57 03/14/23 07:57 Labs: Abnormal Lab Results - Last 24 Hours (Table) 03/13/23 03/13/23 03/14/23 Range/Units 16:55 20:00 06:24 RBC (4.30-5.90) m/uL Hgb (13.0-17.5) gm/dL Hct (39.0-53.0) % Plt Count (150-450) k/uL Lymphocytes # (1.0-4.8) k/uL Glucose (74-99) mg/dL POC Glucose (mg/dL) 168 H 158 H 121 H (70-110) mg/dL AST (17-59) U/L ALT (4-49) U/L Albumin (3.5-5.0) g/dL 03/14/23 03/14/23 03/14/23 Range/Units 07:57 07:57 11:39 RBC 3.34 L (4.30-5.90) m/uL Hgb 11.0 L (13.0-17.5) gm/dL Hct 33.3 L (39.0-53.0) % Plt Count 104 L (150-450) k/uL Lymphocytes # 0.6 L (1.0-4.8) k/uL Glucose 138 H (74-99) mg/dL POC Glucose (mg/dL) 197 H (70-110) mg/dL AST 72 H (17-59) U/L ALT 50 H (4-49) U/L Albumin 3.0 L (3.5-5.0) g/dL Assessment and Plan Assessment: Acute hypoxemic respiratory failure suspect secondary to possible healthcare acquired pneumonia. Pro-calcitonin 0.17. Currently on Omnicef. The patient was recently discharged for generalized weakness and falls to subacute rehabilitation Febrile illness secondary to above, recovered History of CVA History of seizure disorder Chronic neck and back pain with pain Former smoker Memory impairment Hypertension Diabetes mellitus, type II Hypertension Chronic obstructive pulmonary disease History of hepatitis C Anxiety/depression Poor overall functional performance based on the above-mentioned multiple comorbidities Plan: The patient was seen and evaluated Labs and medications reviewed Continue Omnicef, bronchodilators Titrate the FiO2 as tolerated We will continue to follow I have personally seen and examined the patient, performed the documentation and the assessment and plan as written. Number of minutes spent on the visit: 10.
[2023-03-14 16:35] LABS: Glucose,Whole Blood 159 mg/dL (70-110)
[2023-03-14 20:23] LABS: Glucose,Whole Blood 198 mg/dL (70-110)
[2023-03-14] MEDS: SODIUM CHLORIDE 0.9% 1,000 ML IV SCH (20:26)
[2023-03-14] MEDS: amLODIPine 2.5 MG TAB PO SCH (20:52)
--- NOTE | 2023-03-14 21:42 | P.PN ---
Subjective Progress Note Date: 03/14/23 Principal diagnosis: Pneumonia Patient is a 62-year-old male with a past medical history negative for diabetes mellitus hypertension hyperlipidemia MS seizure disorder and COPD presenting to the hospital for evaluation of fever increasing shortness of breath and also hypoxemia with O2 sats in the 80s, patient chest x-ray with low lung volumes denies hazy appearance concerning for possible gram-negative pneumonia. On today's evaluation that is 03/14/2023, the patient continues to be afebrile, , the patient is breathing comfortably on 4LNC oxygen, the patient denies chest pain shortness of breath or cough, patient denies nausea or vomiting abdominal pain, and no diarrhea has been reported , no new symptoms White count is 5.6, creatinine 0.82 , blood and sputum culture have been negative so far Objective - Vital Signs Vital signs: Vital Signs Temp 98.9 F 03/14/23 20:44 Pulse 65 03/14/23 20:44 Resp 16 03/14/23 20:44 BP 157/74 03/14/23 20:44 Pulse Ox 94 L 03/14/23 20:44 FiO2 59 03/07/23 08:25 Intake & Output 03/14/23 03/14/23 03/15/23 06:59 18:59 06:59 Intake Total 480 180 Output Total 200 650 Balance 280 -470 Intake: Oral 480 180 Output: Urine 200 650 Other: Voiding Method External Catheter External Catheter # Voids 1 # Bowel Movements 1 - Exam GENERAL DESCRIPTION: An elderly male lying in bed in no distress RESPIRATORY SYSTEM: Unlabored breathing , coarse breath sounds bilaterally HEART: S1 S2 regular rate and rhythm , ABDOMEN: Soft , no tenderness EXTREMITIES: No edema feet - Labs CBC & Chem 7: 03/14/23 07:57 03/14/23 07:57 Labs: Abnormal Lab Results - Last 24 Hours (Table) 03/14/23 03/14/23 03/14/23 Range/Units 06:24 07:57 07:57 RBC 3.34 L (4.30-5.90) m/uL Hgb 11.0 L (13.0-17.5) gm/dL Hct 33.3 L (39.0-53.0) % Plt Count 104 L (150-450) k/uL Lymphocytes # 0.6 L (1.0-4.8) k/uL Glucose 138 H (74-99) mg/dL POC Glucose (mg/dL) 121 H (70-110) mg/dL AST 72 H (17-59) U/L ALT 50 H (4-49) U/L Albumin 3.0 L (3.5-5.0) g/dL 03/14/23 03/14/23 03/14/23 Range/Units 11:39 16:32 20:21 RBC (4.30-5.90) m/uL Hgb (13.0-17.5) gm/dL Hct (39.0-53.0) % Plt Count (150-450) k/uL Lymphocytes # (1.0-4.8) k/uL Glucose (74-99) mg/dL POC Glucose (mg/dL) 197 H 159 H 198 H (70-110) mg/dL AST (17-59) U/L ALT (4-49) U/L Albumin (3.5-5.0) g/dL Assessment and Plan (1) Pneumonia Current Visit: No Status: Acute Code(s): J18.9 - PNEUMONIA, UNSPECIFIED ORGANISM SNOMED Code(s): 923628320 Plan: 1patient was in the hospital with increasing shortness of breath patient also was hypoxic did have a fever with generalized hazy appearance high clinical suspicious for pneumonia likely gram-negative 2blood and sputum cultures are so far negative, the patient did have procalcitonin of 0.60 3patient has shown some clinical improvement, the patient is afebrile the patient white count normal culture have been negative so far 3 patient to continue with the Omnicef and monitor clinical course closely Dictation was produced using [employer] dictation software. please excuse any grammatical, word or spelling errors. Time with Patient: Less than 30
[2023-03-15 06:13] LABS: Glucose,Whole Blood 154 mg/dL (70-110)
[2023-03-15] MEDS: INSULIN DETEMIR (LEVEMIR) 100 UNIT/ML SYR SQ SCH (06:47)
[2023-03-15] MEDS: INSULIN ASPART (NovoLOG) 100 UNIT/ML VIAL SQ SCH ×4 (06:47→20:35)
[2023-03-15] MEDS: amLODIPine 2.5 MG TAB PO SCH ×2 (08:37→20:35)
[2023-03-15] MEDS: LACOSAMIDE 50 MG TABLET PO SCH ×2 (08:37→20:35)
[2023-03-15] MEDS: CLOPIDOGREL 75 MG TAB PO SCH (08:37)
[2023-03-15] MEDS: ATORVASTATIN 80 MG TAB PO SCH (08:37)
[2023-03-15] MEDS: CEFDINIR 300 MG CAP PO SCH ×2 (08:37→20:35)
[2023-03-15] MEDS: ACETAMINOPHEN TAB 325 MG TAB PO PRN (08:38)
[2023-03-15] MEDS: FERROUS SULFATE 325 MG TAB PO SCH (08:38)
[2023-03-15] MEDS: LACTULOSE 20 GM/30 ML CUP PO SCH ×3 (08:40→20:36)
[2023-03-15] MEDS: IPRATROPIUM-ALBUTEROL 3 ML NEB INHALATION SCH ×4 (09:17→21:03)
[2023-03-15 09:45] LABS: Basophils % (A) 0 %; Eosinophils # (A) 0.1 k/uL (0-0.7); Eosinophils % (A) 2 %; HCT 32.6 % (39.0-53.0); Lymphocytes # (A) 0.6 k/uL (1.0-4.8); Lymphocytes % (A) 10 %; MCHC 33.8 g/dL (31.0-37.0); MCV 100.6 fL (80.0-100.0); Mean Platelet Volume 7.5; Monocytes # (A) 0.3 k/uL (0-1.0); Monocytes % (A) 5 %; Neutrophils # (A) 4.9 k/uL (1.3-7.7); Neutrophils % (A) 82 %; Platelet Count 112 k/uL (150-450); RBC 3.24 m/uL (4.30-5.90); RDW 13.6 % (11.5-15.5)
[2023-03-15 10:13] LABS: ALT 43 U/L (4-49); AST 54 U/L (17-59); African American GFR (CKD) >90 (>60 ml/min/1.73 sqM); Albumin 3.1 g/dL (3.5-5.0); Alkaline Phosphatase 94 U/L (38-126); Anion Gap 9 mmol/L; Blood Urea Nitrogen 18 mg/dL (9-20); Calcium 8.8 mg/dL (8.4-10.2); Carbon Dioxide 28 mmol/L (22-30); Chloride 101 mmol/L (98-107); Glucose 289 mg/dL (74-99); Non-African American GFR(CKD) >90 (>60 ml/min/1.73 sqM); Potassium 4.1 mmol/L (3.5-5.1); Sodium 138 mmol/L (137-145); Total Bilirubin 0.5 mg/dL (0.2-1.3); Total Protein 6.3 g/dL (6.3-8.2)
[2023-03-15 11:33] LABS: Glucose,Whole Blood 298 mg/dL (70-110)
--- NOTE | 2023-03-15 13:54 | P.PN ---
Subjective Progress Note Date: 03/15/23 This is a 62-year-old male patient with a known history of CVA, seizures, chronic neck and back pain, hypertension, chronic obstructive pulmonary disease, diabetes mellitus, hyperlipidemia, memory impairment, hepatitis C, former smoker. He was recently discharged on 02/25/2023 for weakness and falls. He presented to the emergency room last evening with complaints of increasing shortness of breath and O2 saturations in the mid 80s. Chest x-ray reveals low lung volumes and mild cardiomegaly with bibasilar atelectasis and/or acute infiltrates. Computed tomography scan of the brain revealed no acute intracranial process. 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 White count 5.3. Hemoglobin 11.5. Platelets 77,000. Sodium 139. Potassium 4.8. Bicarb 20. BUN 50. Creatinine 1.90. Glucose 240. Urinalysis clean. Serum alcohol level less than 10. Influenza screen negative. RSV screen negative, COVID-19 screen negative. He is seen today in consultation on the selective care unit. Currently sitting up in bed. Awake. Alert. He is currently on 50% FiO2 via Ventimask with O2 saturations in the 90s. He is afebrile currently but did present with a T-max of 101.5. Hemodynamically stable. He's been initiated and DuoNeb inhalations. Normal saline and 100 ML's per hour. Antibiotics in the form of Zosyn. Progress note dated 03/08/2023. I am seeing this patient in new consultation today 03/08/2023 for an acute COPD exacerbation. Patient is a 74-year-old male patient with a known history of chronic and ongoing tobacco dependence, marijuana use, chronic obstructive pulmonary disease, hyperlipidemia, hypertension, peripheral vascular occlusive disease with previous stent placement, coronary artery disease with previous stent placement, diverticulosis previous history of diverticulitis. He presented to the emergency room on March 06 with complaints of increasing shortness of breath, non-productive cough and congestion for approximate 2 weeks. chest x- ray reveals no acute cardiopulmonary process. We were not consulted until early this morning, the patient was in some respiratory distress and the BiPAP settings 10/5 and an FiO2 of 60%. He is very bronchospastic. He is currently on a combination of bronchodilators, Symbicort inhaler, and IV Solu-Medrol. ABG showed a pO2 of 100%, pCO2 44, pH is 7.38. CBC on arrival was unremarkable. No leukocytosis. Patient is afebrile. Negative for influenza, RSV, COVID-19. Most recent BMP was unremarkable. Troponins less than 0.012 3. Patient will be monitored on the cardiac stepdown unit. Currently, the patient is on 8 L high flow nasal cannula. The patient's getting saline at 100 mL an hour. The patient's pro-calcitonin level was elevated at 0.60. The patient is currently on Zosyn. No new labs today. Blood cultures are currently negative. Yesterday's chest x-ray shows some cardiomegaly, and bibasilar atelectasis and/or infiltrates. The chest x-ray is largely unchanged. Progress note dated 03/09/2023. 62-year-old male with a history of CVA, seizures, chronic neck and back pain, hypertension, COPD, diabetes, hyperlipidemia, memory impairment, hepatitis C, and previous heavy tobacco user. The patient recently presented to the hospital with shortness of breath, and saturations in the mid 80s. Chest x-ray showed evidence of low lung volumes, cardiomegaly, and bibasilar atelectasis or infil trates. Currently, the patient is on 5 L nasal cannula. He is getting saline at 100 mL an hour. He appears to be doing a bit better. No new labs today. Sputum and blood sampling is negative. No recent chest x-ray to report. Progress note dated 03/10/2023. This is a 62-year-old male seen today in room 370. He has a history of CVA, seizures, chronic neck and back pain, hypertension, COPD, diabetes mellitus, hyperlipidemia, memory impairment, hepatitis C, and previous heavy tobacco use. The patient remains on oxygen at 5 L. He is getting saline at 100 mL an hour. The patient's chest x-ray suggestive left lower lobe infiltrate. The patient continues on Zosyn. Sputum and blood cultures are negative. White count 5.6, hemoglobin 11.3, hematocrit 34.3, platelet count of 81,000. Sodium 138, potassium 4.3, chlorides 108, CO2 25, BUN 25, and creatinine 0.98. Progress note dated 03/11/2023. 62-year-old male seen in room 370. The patient has a history of CVA, seizures, chronic neck and back pain, hypertension, COPD, diabetes, hyperlipidemia, hepatitis C, and previous heavy tobacco use. The patient remains on oxygen at 5 L by nasal cannula. The patient's getting saline at 100 mL an hour. The most recent chest x-ray show significant improvement. No new labs today other than a glucose of 185. Progress note dated 03/12/2023. 62-year-old male seen in room 370. Currently, the patient is on oxygen at 4 L. Yesterday, he was on 5 L. In addition, the patient's getting saline 100 mL an hour. He continues on Zosyn as an antibiotic. We will recheck a pro-calcitonin level on him. Today's labs reveal a white count of 5.4, hemoglobin 11.1, hematocrit 34.6, and a platelet count of 92,000. Sodium 138, potassium 4.3, chlorides 105, CO2 24, BUN 20, creatinine 0.86. Glucose 137. Calcium is normal. Microbiologic studies have all been negative. Chest x-ray showed bila teral infiltrates, and is stable to slightly improved. Progress note dated 03/13/2023. 62-year-old male again seen in room 370. Currently, he's on 4 L of oxygen. The patient is not receiving any IV fluids. Clinically, he looks about the same. He get a very flat affect. He is a very poor historian as well. No new labs today other than a glucose of 171. Infectious disease doctor, stopped his IV antibiotics, and placed him on Omnicef, 300 mg twice a day. The patient is seen today 03/14/2023 in follow-up on the selective care unit. He is currently resting in bed. He is awake and alert. He is slow to respond. He is quite weak and debilitated. He is maintaining O2 saturations in the upper 90s on 5 L/m per nasal cannula. He's afebrile. Hemodynamically stable. Blood cultures revealed no growth. Legionella culture negative. Sputum culture no growth. White count 5.6. Hemoglobin 11.0. Platelets 104. Sodium 140. Potassium 4.0. Bicarb 27. BUN 17. Creatinine 0.82. Glucose 139. AST 72. ALT 50. He remains on antibiotics in the form of Omnicef. On today's evaluation of 2022, the patient is calm and comfortable on 3 L of oxygen by nasal cannula. Breathing is nonlabored. No specific complaints. The white cell count is at 6 with a hemoglobin of 11 and a platelet count of 112, BUN is 18 with a creatinine of 0.8 and sodium levels of 138. The patient remains on DuoNeb updrafts, the patient does not have any significant respiratory distress at this point in time. Objective - Vital Signs Vital signs: Vital Signs Temp 98.2 F 03/15/23 08:00 Pulse 68 03/15/23 09:30 Resp 18 03/15/23 08:00 BP 143/61 03/15/23 08:00 Pulse Ox 93 L 03/15/23 08:00 FiO2 59 03/07/23 08:25 Intake & Output 03/14/23 03/15/23 03/15/23 18:59 06:59 18:59 Intake Total 180 128 Output Total 650 200 Balance -470 -200 128 Intake: IV 10 Invasive Line 3 10 Oral 180 118 Output: Urine 650 200 Other: Voiding Method External Catheter External Catheter External Catheter # Voids 1 # Bowel Movements 1 - Exam GENERAL EXAM: Alert, slow to respond, weak, debilitated 62-year-old male, on 3 L nasal cannula, fairly comfortable in no apparent distress. HEAD: Normocephalic. EYES: Normal reaction of pupils, equal size. NOSE: Clear with pink turbinates. THROAT: No erythema or exudates. NECK: No masses, no JVD. CHEST: No chest wall deformity. LUNGS: Equal air entry with few scattered rhonchi. CVS: S1 and S2 normal with no audible murmur, regular rhythm. ABDOMEN: No hepatosplenomegaly, normal bowel sounds, no guarding or rigidity. SPINE: No scoliosis or deformity SKIN: No rashes CENTRAL NERVOUS SYSTEM: No focal deficits, tone is normal in all 4 extremities. EXTREMITIES: There is 1-2+ peripheral edema. No clubbing, no cyanosis. Peripheral pulses are intact. - Labs CBC & Chem 7: 03/15/23 09:06 03/15/23 09:06 Labs: Abnormal Lab Results - Last 24 Hours (Table) 03/14/23 03/14/23 03/14/23 Range/Units 11:39 16:32 20:21 RBC (4.30-5.90) m/uL Hgb (13.0-17.5) gm/dL Hct (39.0-53.0) % MCV (80.0-100.0) fL Plt Count (150-450) k/uL Lymphocytes # (1.0-4.8) k/uL Glucose (74-99) mg/dL POC Glucose (mg/dL) 197 H 159 H 198 H (70-110) mg/dL Albumin (3.5-5.0) g/dL 03/15/23 03/15/23 03/15/23 Range/Units 06:12 09:06 09:06 RBC 3.24 L (4.30-5.90) m/uL Hgb 11.0 L (13.0-17.5) gm/dL Hct 32.6 L (39.0-53.0) % MCV 100.6 H (80.0-100.0) fL Plt Count 112 L (150-450) k/uL Lymphocytes # 0.6 L (1.0-4.8) k/uL Glucose 289 H (74-99) mg/dL POC Glucose (mg/dL) 154 H (70-110) mg/dL Albumin 3.1 L (3.5-5.0) g/dL Assessment and Plan Plan: Acute hypoxemic respiratory failure suspect secondary to possible healthcare acquired pneumonia. Pro-calcitonin 0.17. Currently on Omnicef. Currently the patient is on 3 L of oxygen by nasal cannula Febrile illness secondary to above, recovered History of CVA History of seizure disorder Chronic neck and back pain with pain Former smoker Memory impairment Hypertension Diabetes mellitus, type II Hypertension Chronic obstructive pulmonary disease History of hepatitis C Anxiety/depression Poor overall functional performance based on the above-mentioned multiple comorbidities Plan: Continue same treatment Sputum culture has been negative Continue Omnicef, bronchodilators Titrate the FiO2 as tolerated We will continue to follow
--- NOTE | 2023-03-15 16:28 | P.PN ---
Subjective Progress Note Date: 03/15/23 This is a 62-year-old gentleman recently admitted ,with weakness and falls,discharged on 02/25/2023 to subacute rehab., returning with community- acquired pneumonia. Currently maintaining O2 sats in the mid 90s on 5 L high flow nasal cannula. Afebrile. Preliminary blood cultures reporting no growth after 48 hours. Sputum culture pending. 03/10/2023 continues on Zosyn.maintaining O2 sats in the 90s on 5 L nasal cannula. Denies increased shortness of breath, chest pain or palpitations. Sputum culture finalizing. Cough improving. T-max 99.2, WBC within normal limits.BUN 25, creatinine 0.98. 03/11/2023 oxygenation improving on 5 L nasal cannula, maintaining O2 sats in the high 90s. Flutter valve at bedside. Mild lethargy. T-max 99.5. Blood and sputum cultures negative. Denies chest pain, palpitations or increasing shortness of breath. 03/12/2023 maintaining O2 sats in the high 90s on 4 L nasal cannula. T-max 99.5, WBC 5.4. Blood and sputum cultures currently negative. This morning had an isolated productive cough with thick light rowe sputum. Antibiotics as per ID. 03/15/23 evaluated by psychiatry yesterday with recommendations noted including holding Abilify, Celexa. more alert, continues on nebulized bronchodilators, Omnicef , using flutter valve at bedside .maintaining O2 sats in the low 90s on 3 L nasal cannula. Afebrile, normal WBC. Renal function stable. Objective - Vital Signs Vital signs: Vital Signs Temp 98.5 F 03/15/23 12:00 Pulse 81 03/15/23 12:00 Resp 20 03/15/23 12:00 BP 143/70 03/15/23 12:00 Pulse Ox 91 L 03/15/23 12:00 FiO2 59 03/07/23 08:25 Intake & Output 03/14/23 03/15/23 03/15/23 18:59 06:59 18:59 Intake Total 180 128 Output Total 650 200 350 Balance -470 -200 -222 Intake: IV 10 Invasive Line 3 10 Oral 180 118 Output: Urine 650 200 350 Other: Voiding Method External Catheter External Catheter External Catheter # Voids 1 # Bowel Movements 1 1 - Exam Gen: well developed, well nourished, weak , fatigued ,NAD HEENT: NC/AT, conjunctiva normal, mmm Neck: supple, no JVD CV: RRR, no murmur Lungs: Clear. Unlabored, occasional scattered rhonchi. Abd: soft, nontender, non distended Neuro: AAOx3, no focal deficit Skin: warm and dry, no rash noted - Labs CBC & Chem 7: 03/15/23 09:06 03/15/23 09:06 Labs: Abnormal Lab Results - Last 24 Hours (Table) 03/14/23 03/14/23 03/15/23 Range/Units 16:32 20:21 06:12 RBC (4.30-5.90) m/uL Hgb (13.0-17.5) gm/dL Hct (39.0-53.0) % MCV (80.0-100.0) fL Plt Count (150-450) k/uL Lymphocytes # (1.0-4.8) k/uL Glucose (74-99) mg/dL POC Glucose (mg/dL) 159 H 198 H 154 H (70-110) mg/dL Albumin (3.5-5.0) g/dL 03/15/23 03/15/23 03/15/23 Range/Units 09:06 09:06 11:32 RBC 3.24 L (4.30-5.90) m/uL Hgb 11.0 L (13.0-17.5) gm/dL Hct 32.6 L (39.0-53.0) % MCV 100.6 H (80.0-100.0) fL Plt Count 112 L (150-450) k/uL Lymphocytes # 0.6 L (1.0-4.8) k/uL Glucose 289 H (74-99) mg/dL POC Glucose (mg/dL) 298 H (70-110) mg/dL Albumin 3.1 L (3.5-5.0) g/dL Assessment and Plan Assessment: Community-acquired pneumonia, possible gram-negative pneumonia, hazy chest x-ray , sputum culture negative, in a patient recently discharged to subacute rehab. Procalcitonin 0.60. Acute hypoxic respiratory failure secondary to the above Acute metabolic, toxic encephalopathy secondary to pain pump History of falls Acute kidney injury, Hypertension Hyperlipidemia Diabetes mellitus Anemia and thrombocytopenia secondary to hepatitis C History of hepatitis C History of benign prostatic hypertrophy History of CVA COPD Prior nicotine dependence of 40 years History of seizure disorder Chronic back pain on pain pump History of anxiety and depression Cannabis use disorder Plan: Continue on current medication regime ,monitoring and symptomatic treatment. Pain management services consult in place, recommendations pending.Aggressive pulmonary toileting, continue on nebulized bronchodilators, antibiotics with Flutter valve reinforced. Prognosis guarded given multiple complex medical issues. Discharge planning in progress for subacute rehab pending final DC recommendations and clearance per infectious disease and pulmonary. The impression and plan of care has been dictated as directed. : I performed a history and examination of this patient, discussed the same with the dictator. I agree with the dictator's note ,documented as a scribe. Any additional findings or plans will be noted.
[2023-03-15 16:41] LABS: Glucose,Whole Blood 137 mg/dL (70-110)
[2023-03-15] MEDS: PRIMIDONE 50 MG TAB PO SCH (20:13)
[2023-03-15] MEDS: PREGABALIN 100 MG CAP PO SCH (20:13)
[2023-03-15 20:25] LABS: Glucose,Whole Blood 224 mg/dL (70-110)
[2023-03-15] MEDS: ESCITALOPRAM 20 MG TAB PO SCH (20:35)
[2023-03-16 06:02] LABS: Glucose,Whole Blood 169 mg/dL (70-110)
[2023-03-16] MEDS: INSULIN ASPART (NovoLOG) 100 UNIT/ML VIAL SQ SCH ×2 (06:38→12:05)
[2023-03-16] MEDS: INSULIN DETEMIR (LEVEMIR) 100 UNIT/ML SYR SQ SCH (06:38)
[2023-03-16] MEDS: IPRATROPIUM-ALBUTEROL 3 ML NEB INHALATION SCH ×3 (07:44→15:11)
[2023-03-16] MEDS: CLOPIDOGREL 75 MG TAB PO SCH (08:22)
[2023-03-16] MEDS: LACOSAMIDE 50 MG TABLET PO SCH (08:22)
[2023-03-16] MEDS: CEFDINIR 300 MG CAP PO SCH (08:22)
[2023-03-16] MEDS: ATORVASTATIN 80 MG TAB PO SCH (08:22)
[2023-03-16] MEDS: amLODIPine 2.5 MG TAB PO SCH (08:22)
[2023-03-16] MEDS: FERROUS SULFATE 325 MG TAB PO SCH (08:22)
[2023-03-16] MEDS: LACTULOSE 20 GM/30 ML CUP PO SCH ×2 (08:23→15:41)
--- NOTE | 2023-03-16 09:53 | P.DS ---
Providers Date of admission: 03/06/23 21:12 Expected date of discharge: 03/16/23 Attending physician: Dmitriy Liu MD Consults: 03/06/23 21:12 Consult Physician Routine Consulting Provider: Kenia Klein Consult Reason/Comments: COPD, pneumonitis, fever Do you want consulting provider notified?: Yes 03/07/23 09:40 Consult Physician Routine Consulting Provider: Gia Hurd Consult Reason/Comments: Sepsis, fever Do you want consulting provider notified?: Yes 03/12/23 11:26 Consult Physician Routine Consulting Provider: Martha Wadsworth Consult Reason/Comments: Pain pump adjustment Do you want consulting provider notified?: Yes 03/13/23 12:44 Consult Physician Routine Consulting Provider: Jann Zimmer Consult Reason/Comments: [facility] pharmacy Do you want consulting provider notified?: Yes Primary care physician: Dmitriy Liu MD Hospital Course: Final Diagnoses: Community-acquired pneumonia, possible gram-negative pneumonia, hazy chest x- ray, sputum culture negative, in a patient recently discharged to subacute rehab. Procalcitonin 0.60. Acute hypoxic respiratory failure secondary to the above, improving Acute metabolic and toxic encephalopathy secondary to pneumonia, pain pump in addition to narcotics. Narcotics, Abilify remain on hold. Resolved. History of falls Acute kidney injury, Hypertension Hyperlipidemia Diabetes mellitus Anemia and thrombocytopenia secondary to hepatitis C History of hepatitis C History of benign prostatic hypertrophy History of CVA COPD Prior nicotine dependence of 40 years History of seizure disorder Chronic back pain on pain pump History of anxiety and depression Cannabis use disorder. Cannabis cessation reinforced. Hospital course:This is a 62-year-old gentleman recently admitted ,with weakness and falls,discharged on 02/25/2023 to subacute rehab., returning with community- acquired pneumonia. Currently maintaining O2 sats in the mid 90s on 5 L high flow nasal cannula. Afebrile. Preliminary blood cultures reporting no growth after 48 hours. Sputum culture pending. 03/10/2023 continues on Zosyn.maintaining O2 sats in the 90s on 5 L nasal cannula. Denies increased shortness of breath, chest pain or palpitations. Sputum culture finalizing. Cough improving. T-max 99.2, WBC within normal limits.BUN 25, creatinine 0.98. 03/11/2023 oxygenation improving on 5 L nasal cannula, maintaining O2 sats in the high 90s. Flutter valve at bedside. Mild lethargy. T-max 99.5. Blood and sputum cultures negative. Denies chest pain, palpitations or increasing shortness of breath. 03/12/2023 maintaining O2 sats in the high 90s on 4 L nasal cannula. T-max 99.5, WBC 5.4. Blood and sputum cultures currently negative. This morning had an isolated productive cough with thick light rowe sputum. Antibiotics as per ID. 03/15/23 evaluated by psychiatry yesterday with recommendations noted including holding Abilify, Celexa. more alert, continues on nebulized bronchodilators, Omnicef , using flutter valve at bedside .maintaining O2 sats in the low 90s on 3 L nasal cannula. Afebrile, normal WBC. Renal function stable. Significant clinical improvement. Maintaining O2 sats in the 90s on 3 L nasal cannula. Continues using his flutter valve. Cleared by infectious disease for discharge on 5 days more of Omnicef. Denies chest pain, palpitations or increasing shortness of breath. Denies nausea, vomiting or abdominal pain. Bowel movement this morning. Denies lower extremity pain. Patient will be discharged to subacute rehab today in a stable condition with Prognosis pending final DC recommendations and clearance per pulmonary. The impression and plan of care has been dictated as directed. : I performed a history and examination of this patient, discussed the same with the dictator. I agree with the dictator's note ,documented as a scribe. Any additional findings or plans will be noted. Patient Condition at Discharge: Stable Plan - Discharge Summary New Discharge Prescriptions: New Ipratropium-Albuterol Nebulize [Duoneb 0.5 mg-3 mg/3 ml Soln] 3 ml INHALATION RT-QID each Pregabalin [Lyrica] 100 mg PO HS #3 cap Acetaminophen Tab [Tylenol] 325 mg PO Q6HR PRN tab PRN Reason: Fever And/ Or Pain Cefdinir [Omnicef] 300 mg PO BID 5 Days #10 cap Lactulose [Cephulac] 30 gm PO TID ml INSULIN LISPRO (HumaLOG) [humaLOG] 0 unit SQ ACHS #10 ml Insulin Detemir (Levemir) [Levemir] 65 unit SQ DAILY@0700 each Continue Albuterol Sulfate [Proair Hfa] 2 puff INHALATION RT-QID PRN PRN Reason: Shortness Of Breath Lacosamide [Vimpat] 200 mg PO BID Ferrous Sulfate [Iron (65 MG Elemental)] 325 mg PO DAILY Primidone [Mysoline] 50 mg PO HS amLODIPine BESYLATE 2.5 mg PO BID Budesonide-Formot 160-4.5 Mcg [Symbicort 160-4.5 Mcg Inhaler] 2 puff INHALATION RT-BID Clopidogrel [Plavix] 75 mg PO HS Escitalopram [Lexapro] 20 mg PO HS Rosuvastatin Calcium [Crestor] 40 mg PO Discontinued Valsartan [Diovan] 160 mg PO BID Glimepiride [Amaryl] 4 mg PO BID@0600,1700 HYDROcodone/APAP 10-325MG [[place] 10-325] 1 tab PO BID PRN PRN Reason: Pain Dulaglutide [Trulicity] 3 mg SQ SA ARIPiprazole [Abilify] 20 mg PO HS Hydrocortisone Cream [Hydrocortisone 1% Cream] 1 applic TOPICAL BID Insulin Glargine,Hum.rec.anlog [Lantus Solostar Pen] 60 unit SQ DAILY metFORMIN HCL ER [Glucophage XR] 1,000 mg PO BID@0600,1700 Lactulose 30 gm PO TID@0600,1400,2200 Pregabalin [Lyrica] 100 mg PO HS Dapagliflozin Propanediol [Farxiga] 5 mg PO DAILY Discharge Medication List Albuterol Sulfate [Proair Hfa] 2 puff INHALATION RT-QID PRN 10/22/20 [History] Budesonide-Formot 160-4.5 Mcg [Symbicort 160-4.5 Mcg Inhaler] 2 puff INHALATION RT-BID 10/22/20 [History] Lacosamide [Vimpat] 200 mg PO BID 10/22/20 [History] Ferrous Sulfate [Iron (65 MG Elemental)] 325 mg PO DAILY 12/10/20 [History] Clopidogrel [Plavix] 75 mg PO HS 06/30/21 [History] Primidone [Mysoline] 50 mg PO HS 06/30/21 [History] Escitalopram [Lexapro] 20 mg PO HS 02/23/23 [History] Rosuvastatin Calcium [Crestor] 40 mg PO 10/01/23 [History] amLODIPine BESYLATE 2.5 mg PO BID 03/14/23 [History] Acetaminophen Tab [Tylenol] 325 mg PO Q6HR PRN tab 03/16/23 [Rx] Cefdinir [Omnicef] 300 mg PO BID 5 Days #10 cap 03/16/23 [Rx] INSULIN LISPRO (HumaLOG) [humaLOG] 0 unit SQ ACHS #10 ml 03/16/23 [Rx] Insulin Detemir (Levemir) [Levemir] 65 unit SQ DAILY@0700 each 03/16/23 [Rx] Ipratropium-Albuterol Nebulize [Duoneb 0.5 mg-3 mg/3 ml Soln] 3 ml INHALATION RT-QID each 03/16/23 [Rx] Lactulose [Cephulac] 30 gm PO TID ml 03/16/23 [Rx] Pregabalin [Lyrica] 100 mg PO HS #3 cap 03/16/23 [Rx] Follow up Appointment(s)/Referral(s): Dmitriy Liu MD [Primary Care Provider] - 1-2 days [facility], [NON-STAFF] - 1 Week Activity/Diet/Wound Care/Special Instructions: [facility] CBC, BMP in 3 days Discharge Disposition: TRANSFER TO SNF/ECF
--- NOTE | 2023-03-16 11:00 | P.PN ---
Subjective Progress Note Date: 03/16/23 This is a 62-year-old male patient with a known history of CVA, seizures, chronic neck and back pain, hypertension, chronic obstructive pulmonary disease, diabetes mellitus, hyperlipidemia, memory impairment, hepatitis C, former smoker. He was recently discharged on 02/25/2023 for weakness and falls. He presented to the emergency room last evening with complaints of increasing shortness of breath and O2 saturations in the mid 80s. Chest x-ray reveals low lung volumes and mild cardiomegaly with bibasilar atelectasis and/or acute infiltrates. Computed tomography scan of the brain revealed no acute intracranial process. 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 White count 5.3. Hemoglobin 11.5. Platelets 77,000. Sodium 139. Potassium 4.8. Bicarb 20. BUN 50. Creatinine 1.90. Glucose 240. Urinalysis clean. Serum alcohol level less than 10. Influenza screen negative. RSV screen negative, COVID-19 screen negative. He is seen today in consultation on the selective care unit. Currently sitting up in bed. Awake. Alert. He is currently on 50% FiO2 via Ventimask with O2 saturations in the 90s. He is afebrile currently but did present with a T-max of 101.5. Hemodynamically stable. He's been initiated and DuoNeb inhalations. Normal saline and 100 ML's per hour. Antibiotics in the form of Zosyn. Progress note dated 03/08/2023. I am seeing this patient in new consultation today 03/08/2023 for an acute COPD exacerbation. Patient is a 74-year-old male patient with a known history of chronic and ongoing tobacco dependence, marijuana use, chronic obstructive pulmonary disease, hyperlipidemia, hypertension, peripheral vascular occlusive disease with previous stent placement, coronary artery disease with previous stent placement, diverticulosis previous history of diverticulitis. He presented to the emergency room on March 06 with complaints of increasing shortness of breath, non-productive cough and congestion for approximate 2 weeks. chest x- ray reveals no acute cardiopulmonary process. We were not consulted until early this morning, the patient was in some respiratory distress and the BiPAP settings 10/5 and an FiO2 of 60%. He is very bronchospastic. He is currently on a combination of bronchodilators, Symbicort inhaler, and IV Solu-Medrol. ABG showed a pO2 of 100%, pCO2 44, pH is 7.38. CBC on arrival was unremarkable. No leukocytosis. Patient is afebrile. Negative for influenza, RSV, COVID-19. Most recent BMP was unremarkable. Troponins less than 0.012 3. Patient will be monitored on the cardiac stepdown unit. Currently, the patient is on 8 L high flow nasal cannula. The patient's getting saline at 100 mL an hour. The patient's pro-calcitonin level was elevated at 0.60. The patient is currently on Zosyn. No new labs today. Blood cultures are currently negative. Yesterday's chest x-ray shows some cardiomegaly, and bibasilar atelectasis and/or infiltrates. The chest x-ray is largely unchanged. Progress note dated 03/09/2023. 62-year-old male with a history of CVA, seizures, chronic neck and back pain, hypertension, COPD, diabetes, hyperlipidemia, memory impairment, hepatitis C, and previous heavy tobacco user. The patient recently presented to the hospital with shortness of breath, and saturations in the mid 80s. Chest x-ray showed evidence of low lung volumes, cardiomegaly, and bibasilar atelectasis or infil trates. Currently, the patient is on 5 L nasal cannula. He is getting saline at 100 mL an hour. He appears to be doing a bit better. No new labs today. Sputum and blood sampling is negative. No recent chest x-ray to report. Progress note dated 03/10/2023. This is a 62-year-old male seen today in room 370. He has a history of CVA, seizures, chronic neck and back pain, hypertension, COPD, diabetes mellitus, hyperlipidemia, memory impairment, hepatitis C, and previous heavy tobacco use. The patient remains on oxygen at 5 L. He is getting saline at 100 mL an hour. The patient's chest x-ray suggestive left lower lobe infiltrate. The patient continues on Zosyn. Sputum and blood cultures are negative. White count 5.6, hemoglobin 11.3, hematocrit 34.3, platelet count of 81,000. Sodium 138, potassium 4.3, chlorides 108, CO2 25, BUN 25, and creatinine 0.98. Progress note dated 03/11/2023. 62-year-old male seen in room 370. The patient has a history of CVA, seizures, chronic neck and back pain, hypertension, COPD, diabetes, hyperlipidemia, hepatitis C, and previous heavy tobacco use. The patient remains on oxygen at 5 L by nasal cannula. The patient's getting saline at 100 mL an hour. The most recent chest x-ray show significant improvement. No new labs today other than a glucose of 185. Progress note dated 03/12/2023. 62-year-old male seen in room 370. Currently, the patient is on oxygen at 4 L. Yesterday, he was on 5 L. In addition, the patient's getting saline 100 mL an hour. He continues on Zosyn as an antibiotic. We will recheck a pro-calcitonin level on him. Today's labs reveal a white count of 5.4, hemoglobin 11.1, hematocrit 34.6, and a platelet count of 92,000. Sodium 138, potassium 4.3, chlorides 105, CO2 24, BUN 20, creatinine 0.86. Glucose 137. Calcium is normal. Microbiologic studies have all been negative. Chest x-ray showed bila teral infiltrates, and is stable to slightly improved. Progress note dated 03/13/2023. 62-year-old male again seen in room 370. Currently, he's on 4 L of oxygen. The patient is not receiving any IV fluids. Clinically, he looks about the same. He get a very flat affect. He is a very poor historian as well. No new labs today other than a glucose of 171. Infectious disease doctor, stopped his IV antibiotics, and placed him on Omnicef, 300 mg twice a day. The patient is seen today 03/14/2023 in follow-up on the selective care unit. He is currently resting in bed. He is awake and alert. He is slow to respond. He is quite weak and debilitated. He is maintaining O2 saturations in the upper 90s on 5 L/m per nasal cannula. He's afebrile. Hemodynamically stable. Blood cultures revealed no growth. Legionella culture negative. Sputum culture no growth. White count 5.6. Hemoglobin 11.0. Platelets 104. Sodium 140. Potassium 4.0. Bicarb 27. BUN 17. Creatinine 0.82. Glucose 139. AST 72. ALT 50. He remains on antibiotics in the form of Omnicef. On today's evaluation of 2022, the patient is calm and comfortable on 3 L of oxygen by nasal cannula. Breathing is nonlabored. No specific complaints. The white cell count is at 6 with a hemoglobin of 11 and a platelet count of 112, BUN is 18 with a creatinine of 0.8 and sodium levels of 138. The patient remains on DuoNeb updrafts, the patient does not have any significant respiratory distress at this point in time. On today's evaluation of 04/12/2023, seeing the patient for a follow-up. His resting comfortably in bed. He is currently on oxygen and he is on 3 L nasal cannula which is the same oxygen flow as of yesterday. No other significant events overnight.No recent blood work from today, the blood work from yesterday was noted and the patient has a white cell count of 6 with a hemoglobin of 11, B UN is at 18 with a creatinine 0.8 and sodium levels of 138. Objective - Vital Signs Vital signs: Vital Signs Temp 98.3 F 03/16/23 08:19 Pulse 77 03/16/23 08:19 Resp 18 03/16/23 08:19 BP 165/67 03/16/23 08:19 Pulse Ox 94 L 03/16/23 08:19 FiO2 59 03/07/23 08:25 Intake & Output 03/15/23 03/16/23 03/16/23 18:59 06:59 18:59 Intake Total 368 20 10 Output Total 350 Balance 18 20 10 Intake: IV 10 20 10 Invasive Line 3 10 20 10 Oral 358 Output: Urine 350 Other: Voiding Method External Catheter External Catheter # Voids 1 1 # Bowel Movements 1 1 - Exam GENERAL EXAM: Alert, slow to respond, weak, debilitated 62-year-old male, on 3 L nasal cannula, fairly comfortable in no apparent distress. HEAD: Normocephalic. EYES: Normal reaction of pupils, equal size. NOSE: Clear with pink turbinates. THROAT: No erythema or exudates. NECK: No masses, no JVD. CHEST: No chest wall deformity. LUNGS: Equal air entry with few scattered rhonchi. CVS: S1 and S2 normal with no audible murmur, regular rhythm. ABDOMEN: No hepatosplenomegaly, normal bowel sounds, no guarding or rigidity. SPINE: No scoliosis or deformity SKIN: No rashes CENTRAL NERVOUS SYSTEM: No focal deficits, tone is normal in all 4 extremities. EXTREMITIES: There is 1-2+ peripheral edema. No clubbing, no cyanosis. Peripheral pulses are intact. - Labs CBC & Chem 7: 03/15/23 09:06 03/15/23 09:06 Labs: Abnormal Lab Results - Last 24 Hours (Table) 03/15/23 03/15/23 03/15/23 Range/Units 11:32 16:39 20:24 POC Glucose (mg/dL) 298 H 137 H 224 H (70-110) mg/dL 03/16/23 Range/Units 06:00 POC Glucose (mg/dL) 169 H (70-110) mg/dL Assessment and Plan Plan: Acute hypoxemic respiratory failure suspect secondary to possible healthcare acquired pneumonia. Pro-calcitonin 0.17. Currently on Omnicef. Currently the patient is on 3 L of oxygen by nasal cannula Febrile illness secondary to above, recovered History of CVA History of seizure disorder Chronic neck and back pain with pain Former smoker Memory impairment Hypertension Diabetes mellitus, type II Hypertension Chronic obstructive pulmonary disease History of hepatitis C Anxiety/depression Poor overall functional performance based on the above-mentioned multiple comorbidities Plan: The patient is being worked up for discharge today. He'll be completing a course of antibiotics with Omnicef 3 mg by mouth twice a day for an additional 5 days. Sudheer ramey. Levemir insulin 65 units along with a sliding scale coverage. Home medications will be resumed including his Symbicort maintenance.
[2023-03-16 11:48] LABS: Glucose,Whole Blood 220 mg/dL (70-110)
[2023-03-16] MEDS ORDERED: hydrALAZINE HCL 50 MG TAB PO STA (12:17)
[2023-03-16] MEDS ORDERED: BISOPROLOL-HCTZ 5-6.25 MG 1 EACH TAB PO SCH (12:30)
[2023-03-16 15:21] VITALS: BP 165/74; RESP 18; TEMP 98.2
[2023-03-16 15:32] VITALS: PULSE 72
--- NOTE | 2023-03-16 16:12 | P.PN ---
Subjective Progress Note Date: 03/15/23 Principal diagnosis: Pneumonia Patient is a 62-year-old male with a past medical history negative for diabetes mellitus hypertension hyperlipidemia DC seizure disorder and COPD presenting to the hospital for evaluation of fever increasing shortness of breath and also hypoxemia with O2 sats in the 80s, patient chest x-ray with low lung volumes denies hazy appearance concerning for possible gram-negative pneumonia. On today's evaluation that is 03/15/2023, the patient denies any fever or any chills , the patient is breathing comfortably on 3 L nasal cannula oxygen, the patient denies chest pain or worsening cough, patient denies nausea or vomiting and no abdominal pain, no diarrhea Patient did have white count of 6.0, creatinine 0.85 Objective - Vital Signs Vital signs: Vital Signs Temp 98.2 F 03/15/23 16:00 Pulse 71 03/15/23 16:00 Resp 18 03/15/23 16:00 BP 147/71 03/15/23 16:00 Pulse Ox 93 L 03/15/23 16:00 FiO2 59 03/07/23 08:25 Intake & Output 03/14/23 03/15/23 03/15/23 18:59 06:59 18:59 Intake Total 180 128 Output Total 650 200 350 Balance -470 -200 -222 Intake: IV 10 Invasive Line 3 10 Oral 180 118 Output: Urine 650 200 350 Other: Voiding Method External Catheter External Catheter External Catheter # Voids 1 1 # Bowel Movements 1 1 - Exam GENERAL DESCRIPTION: An elderly male lying in bed in no distress RESPIRATORY SYSTEM: Unlabored breathing , coarse breath sounds bilaterally HEART: S1 S2 regular rate and rhythm , ABDOMEN: Soft , no tenderness EXTREMITIES: No edema feet - Labs CBC & Chem 7: 03/15/23 09:06 03/15/23 09:06 Labs: Abnormal Lab Results - Last 24 Hours (Table) 03/14/23 03/15/23 03/15/23 Range/Units 20:21 06:12 09:06 RBC 3.24 L (4.30-5.90) m/uL Hgb 11.0 L (13.0-17.5) gm/dL Hct 32.6 L (39.0-53.0) % MCV 100.6 H (80.0-100.0) fL Plt Count 112 L (150-450) k/uL Lymphocytes # 0.6 L (1.0-4.8) k/uL Glucose (74-99) mg/dL POC Glucose (mg/dL) 198 H 154 H (70-110) mg/dL Albumin (3.5-5.0) g/dL 03/15/23 03/15/23 03/15/23 Range/Units 09:06 11:32 16:39 RBC (4.30-5.90) m/uL Hgb (13.0-17.5) gm/dL Hct (39.0-53.0) % MCV (80.0-100.0) fL Plt Count (150-450) k/uL Lymphocytes # (1.0-4.8) k/uL Glucose 289 H (74-99) mg/dL POC Glucose (mg/dL) 298 H 137 H (70-110) mg/dL Albumin 3.1 L (3.5-5.0) g/dL Assessment and Plan (1) Pneumonia Status: Acute Code(s): J18.9 - PNEUMONIA, UNSPECIFIED ORGANISM SNOMED Code(s): 283620893 Plan: 1patient was in the hospital with increasing shortness of breath patient also was hypoxic did have a fever with generalized hazy appearance high clinical suspicious for pneumonia likely gram-negative 2blood and sputum cultures are so far negative, the patient did have procalcitonin of 0.60 3patient has shown some clinical improvement, the patient is afebrile the patient white count normal culture have been negative so far 3 patient to continue with the Omnicef continue with supportive care Dictation was produced using giftee dictation software. please excuse any grammatical, word or spelling errors. Time with Patient: Less than 30
--- NOTE | 2023-03-16 16:13 | P.PN ---
Subjective Progress Note Date: 03/16/23 Principal diagnosis: Pneumonia Patient is a 62-year-old male with a past medical history negative for diabetes mellitus hypertension hyperlipidemia [place] seizure disorder and COPD presenting to the hospital for evaluation of fever increasing shortness of breath and also hypoxemia with O2 sats in the 80s, patient chest x-ray with low lung volumes denies hazy appearance concerning for possible gram-negative pneumonia. On today's evaluation that is 03/16/2023, the patient remains to be afebrile, the patient is breathing comfortably on 3 L nasal cannula oxygen, the patient denies chest pain and no significant cough, patient denies nausea/vomiting /diarrhea and denies abdominal pain Patient did have white count of 6.0, creatinine 0.85 as of yesterday Objective - Vital Signs Vital signs: Vital Signs Temp 98.5 F 03/16/23 12:04 Pulse 84 03/16/23 12:04 Resp 20 03/16/23 12:04 BP 183/74 03/16/23 12:04 Pulse Ox 92 L 03/16/23 12:04 FiO2 59 03/07/23 08:25 Intake & Output 03/15/23 03/16/23 03/16/23 18:59 06:59 18:59 Intake Total 368 20 130 Output Total 350 Balance 18 20 130 Intake: IV 10 20 10 Invasive Line 3 10 20 10 Oral 358 120 Output: Urine 350 Other: Voiding Method External Catheter External Catheter External Catheter # Voids 1 1 # Bowel Movements 1 1 1 - Exam GENERAL DESCRIPTION: An elderly male lying in bed in no distress RESPIRATORY SYSTEM: Unlabored breathing , coarse breath sounds bilaterally HEART: S1 S2 regular rate and rhythm , ABDOMEN: Soft , no tenderness EXTREMITIES: No edema feet - Labs CBC & Chem 7: 03/15/23 09:06 03/15/23 09:06 Labs: Abnormal Lab Results - Last 24 Hours (Table) 03/15/23 03/15/23 03/16/23 Range/Units 16:39 20:24 06:00 POC Glucose (mg/dL) 137 H 224 H 169 H (70-110) mg/dL 03/16/23 Range/Units 11:46 POC Glucose (mg/dL) 220 H (70-110) mg/dL Assessment and Plan (1) Pneumonia Status: Acute Code(s): J18.9 - PNEUMONIA, UNSPECIFIED ORGANISM SNOMED Code(s): 379451622 Plan: 1patient was in the hospital with increasing shortness of breath patient also was hypoxic did have a fever with generalized hazy appearance high clinical suspicious for pneumonia likely gram-negative 2blood and sputum cultures are so far negative, the patient did have procalcitonin of 0.60 3patient has shown some clinical improvement, the patient is afebrile the patient white count normal culture have been negative so far 3 patient to continue with the Omnicef 5 days on discharge and close out patient follow-up discussed with ONLINE COMMUNICATIONS MANAGER for admitting team Dictation was produced using [employer] dictation software. please excuse any grammatical, word or spelling errors. Time with Patient: Less than 30
== END 2023-03-16 16:05 | DRG 137 ==
LOC: EC 18:40 → 3SCARD 21:12
PROVIDERS: ADMIT Family Medicine; ATTEND Family Medicine
DX: J15.69 Pneumonia due to other Gram-negative bacteria (principal); J96.01 Acute respiratory failure with hypoxia; D69.59 Other secondary thrombocytopenia; J44.0 Chronic obstructive pulmonary disease with (acute) lower respiratory infection; K74.60 Unspecified cirrhosis of liver; N17.9 Acute kidney failure, unspecified; G92.8 Other toxic encephalopathy; B19.20 Unspecified viral hepatitis C without hepatic coma; D64.9 Anemia, unspecified; E78.5 Hyperlipidemia, unspecified; E86.0 Dehydration; F12.10 Cannabis abuse, uncomplicated; F32.9 Major depressive disorder, single episode, unspecified; F41.9 Anxiety disorder, unspecified; G25.0 Essential tremor; G40.909 Epilepsy, unspecified, not intractable, without status epilepticus; G89.29 Other chronic pain; I10 Essential (primary) hypertension; N40.0 Benign prostatic hyperplasia without lower urinary tract symptoms; Z20.822 Contact with and (suspected) exposure to COVID-19; I25.10 Atherosclerotic heart disease of native coronary artery without angina pectoris; I25.2 Old myocardial infarction; Z79.02 Long term (current) use of antithrombotics/antiplatelets; Z79.4 Long term (current) use of insulin; Z79.51 Long term (current) use of inhaled steroids; Z79.84 Long term (current) use of oral hypoglycemic drugs; Z79.899 Other long term (current) drug therapy; Z83.3 Family history of diabetes mellitus; Z86.73 Personal history of transient ischemic attack (TIA), and cerebral infarction without residual deficits; Z87.11 Personal history of peptic ulcer disease; Z91.81 History of falling; Z95.5 Presence of coronary angioplasty implant and graft; Z87.891 Personal history of nicotine dependence; Z71.51 Drug abuse counseling and surveillance of drug abuser; Z88.5 Allergy status to narcotic agent
CPT/HCPCS: 36415; 70450; 71045; 71046; 80048; 80053; 80306; 80320; 81003; 82140; 83036; 83605; 83880; 84145; 84484; 85025; 85610; 85730; 87040; 87070; 87205; 87449; 87636; 93005; 94640; 94667; 94668; 94760; 96365; 96366; 96375; 99285

== ENCOUNTER 2023-05-22 01:04 | Inpatient (IN) | payer OTHER ==
[2023-05-22] MEDS ORDERED: SODIUM CHLORIDE 0.9% 1,000 ML IV ONE (02:04)
[2023-05-22 02:23] LABS: Basophils % (A) 0 %; Eosinophils # (A) 0.1 k/uL (0-0.7); Eosinophils % (A) 1 %; HCT 40.4 % (39.0-53.0); HGB 13.1 gm/dL (13.0-17.5); Lymphocytes # (A) 0.8 k/uL (1.0-4.8); Lymphocytes % (A) 8 %; MCH 32.3 pg (25.0-35.0); MCHC 32.5 g/dL (31.0-37.0); MCV 99.6 fL (80.0-100.0); Mean Platelet Volume 7.9; Monocytes # (A) 0.4 k/uL (0-1.0); Monocytes % (A) 4 %; Neutrophils # (A) 8.8 k/uL (1.3-7.7); Neutrophils % (A) 86 %; RBC 4.06 m/uL (4.30-5.90); RDW 13.7 % (11.5-15.5); WBC 10.3 k/uL (3.8-10.6)
[2023-05-22 02:27] LABS: Platelet Count 85 k/uL (150-450)
[2023-05-22 02:31] LABS: ALT 21 U/L (4-49); AST 26 U/L (17-59); African American GFR (CKD) >90 (>60 ml/min/1.73 sqM); Albumin 4.4 g/dL (3.5-5.0); Alkaline Phosphatase 84 U/L (38-126); Anion Gap 13 mmol/L; Blood Urea Nitrogen 19 mg/dL (9-20); Calcium 9.3 mg/dL (8.4-10.2); Carbon Dioxide 23 mmol/L (22-30); Chloride 99 mmol/L (98-107); Glucose 263 mg/dL (74-99); Non-African American GFR(CKD) >90 (>60 ml/min/1.73 sqM); Potassium 4.3 mmol/L (3.5-5.1); Sodium 135 mmol/L (137-145); Total Bilirubin 0.5 mg/dL (0.2-1.3); Total Protein 7.8 g/dL (6.3-8.2)
--- NOTE | 2023-05-22 03:06 | ED ---
General Adult HPI - General Source: EMS, RN notes reviewed Mode of arrival: EMS Limitations: physical limitation <Eli Velásquez - Last Filed: 05/29/23 16:57> <Jean Marie Figueroa - Last Filed: 06/01/23 06:30> - General Chief complaint: Shortness of Breath Stated complaint: SOB Time Seen by Provider: 05/22/23 01:18 - History of Present Illness Initial comments: 62-year-old male with past medical history significant for CVA diabetes mellitus, COPD presents to the emergency department with a chief compl aint of shortness of breath. Patient complains of progressive shortness of breath over the last week however it was worse this evening. He does not wear oxygen at home. It is upon exertion. Occasionally he will have bilateral lower extremity edema. He minutes to a productive cough that is clean color. He also reports having a fever in the ambulance. Denies chest pain, palpitations, nausea, vomiting, abdominal pain. (Eli Velásquez) - Related Data Home Medications Medication Instructions Recorded Confirmed Albuterol Sulfate [Proair Hfa] 2 puff INHALATION RT-QID PRN 10/22/20 05/22/23 Budesonide-Formot 160-4.5 Mcg 2 puff INHALATION RT-BID 10/22/20 05/22/23 [Symbicort 160-4.5 Mcg Inhaler] Ferrous Sulfate [Iron (65 MG 325 mg PO DAILY 12/10/20 05/22/23 Elemental)] Clopidogrel [Plavix] 75 mg PO HS 06/30/21 05/22/23 Primidone [Mysoline] 50 mg PO HS 06/30/21 05/22/23 Escitalopram [Lexapro] 20 mg PO HS 02/23/23 05/22/23 Rosuvastatin Calcium [Crestor] 40 mg PO HS 03/14/23 05/22/23 amLODIPine BESYLATE 2.5 mg PO BID 03/14/23 05/22/23 Aspirin EC [Ecotrin Low Dose] 81 mg PO DAILY 05/22/23 05/22/23 INSULIN LISPRO (HumaLOG) [humaLOG] See Protocol SQ ACHS 05/22/23 05/22/23 Multivitamins, Thera [Multivitamin 1 tab PO DAILY 05/22/23 05/22/23 (formulary)] Previous Rx's Medication Instructions Recorded Acetaminophen Tab [Tylenol] 325 mg PO Q6HR PRN tab 03/16/23 Lacosamide [Vimpat] 200 mg PO BID #6 tab 03/16/23 Bisoprolol-Hctz 5-6.25 mg [Ziac 1 each PO DAILY #30 tab 05/26/23 5-6.25 MG] Cephalexin [Keflex] 500 mg PO Q8HR 5 Days #15 cap 05/26/23 Insulin Detemir [Levemir Flexpen] 65 units SQ DAILY #0 05/26/23 Ipratropium-Albuterol Nebulize 3 ml INHALATION RT-QID #0 each 05/26/23 [Duoneb 0.5 mg-3 mg/3 ml Soln] Pantoprazole Sodium [Protonix] 40 mg PO DAILY #30 tab 05/26/23 guaiFENesin [Mucinex] 600 mg PO Q12HR PRN tab 05/26/23 polyethylene glycoL 3350 [Miralax] 17 gm PO DAILY #1 packet 05/26/23 predniSONE 10 mg PO DIRECTED #30 tab 05/26/23 Allergies Allergy/AdvReac Type Severity Reaction Status Date / Time morphine AdvReac Nausea & Verified 05/22/23 11:38 Vomiting Review of Systems ROS Other: All systems not noted in ROS Statement are negative. <Eli Velásquez - Last Filed: 05/29/23 16:57> ROS Other: All systems not noted in ROS Statement are negative. <Jean Marie Figueroa - Last Filed: 06/01/23 06:30> ROS Statement: Those systems with pertinent positive or pertinent negative responses have been documented in the HPI. Past Medical History Past Medical History: COPD, CVA/TIA, Diabetes Mellitus, Hyperlipidemia, Hyp ertension, Memory Impairment, Myocardial Infarction (SD), Prostate Disorder, Seizure Disorder, Skin Disorder Additional Past Medical History / Comment(s): duodenal ulcer, pain and numbness cyrus legs and feet,pain pump in back, anemia. TIA X3, HEPATITIS C PAST HISTORY, LAST SEIZURE 2012,hiatal hernia Last Myocardial Infarction Date:: POSSIBLE SD 2012 History of Any Multi-Drug Resistant Organisms: None Reported Past Surgical History: Appendectomy, Back Surgery, Heart Catheterization, Orthopedic Surgery Additional Past Surgical History / Comment(s): titanium lyn in lt leg, skin graph to rt 1st and middle finger, lt eardum replaced, cyrus. foot surgery to arch, cataract surgery bilateral with implant,skin graft left leg Past Anesthesia/Blood Transfusion Reactions: No Reported Reaction Past Psychological History: Anxiety, Depression Additional Psychological History / Comment(s): past history of depression Smoking Status: Former smoker Past Alcohol Use History: None Reported Additional Past Alcohol Use History / Comment(s): Pt started smoking in 1974 and is a 1-2ppd smoker Past Drug Use History: None Reported - Past Family History Mother Family Medical History: Diabetes Mellitus, Pulmonary Embolus Father Additional Family Medical History / Comment(s): Father had pain problems/hallucinations. He committed suicide. <Eli Velásquez - Last Filed: 05/29/23 16:57> General Exam Limitations: physical limitation <Eli Velásquez - Last Filed: 05/29/23 16:57> - General Exam Comments Initial Comments: General: Alert, in no acute distress Head: atraumatic normocephalic. Eyes PERRL, EOMI intact, mucous membranes moist Respiratory: Lungs clear to auscultation bilaterally Cardiovascular: Regular rate and rhythm Abdominal: Soft without guarding or rebound Extremities: Normal inspection with full range of motion and normal capillary refill Neuroogic: alert and oriented 3, CN II-XII intact, able to ambulate with steady gait Skin: warm dry and intact with normal color (Eli Velásquez) Course <Eli Velásquez - Last Filed: 05/29/23 16:57> Vital Signs 05/22/23 05/22/23 05/22/23 01:15 04:49 05:00 Temperature 99.2 F Pulse Rate 89 Respiratory 18 Rate Blood Pressure 173/79 155/77 O2 Sat by Pulse 91 L 93 L 94 L Oximetry 05/22/23 05/22/23 05/22/23 06:00 08:10 08:13 Temperature Pulse Rate 75 Respiratory Rate Blood Pressure 152/71 O2 Sat by Pulse 93 L 92 L Oximetry 05/22/23 05/22/23 05/22/23 08:19 09:13 10:23 Temperature 99.0 F Pulse Rate 81 82 75 Respiratory 18 18 Rate Blood Pressure 170/84 154/80 O2 Sat by Pulse 91 L 94 L Oximetry 05/22/23 05/22/23 05/22/23 11:21 11:29 12:03 Temperature Pulse Rate 87 87 89 Respiratory 18 Rate Blood Pressure 118/60 O2 Sat by Pulse 93 L Oximetry 05/22/23 05/22/23 14:08 15:08 Temperature 99.9 F H Pulse Rate 73 67 Respiratory 18 18 Rate Blood Pressure 164/75 O2 Sat by Pulse 93 L 92 L Oximetry - Reevaluation(s) Reevaluation #1: 05/22/23 04:00 Pt reevaluated. Patient continues to not show any signs of respiratory distress. He is not conversationally dyspneic or tachypneic. Oxygen saturation remains 89%-91% 4 L. (Eli Velásquez) Reevaluation #2: 05/22/23 04:40 Side effects d-dimer result. CT ordered. Case discussed with Dr. Figueroa who assumes care pending CT results. (Eli Velásquez) Reevaluation #3: 05/22/23 04:51 Patient reevaluated. Patient is diaphoretic. Continues to show no signs of respiratory distress. EKG and troponin all within ordered. Case discussed with Dr. Figueroa. (Eli Velásquez) EKG Findings - EKG Results: EKG: interpreted by ERMD, sinus rhythm (Rate 75 bpm), normal axis, normal QRS, normal ST/T <Jean Marie Figueroa - Last Filed: 06/01/23 06:30> Medical Decision Making - Lab Data Result diagrams: 05/24/23 05:48 05/25/23 16:09 <Eli Velásquez - Last Filed: 05/29/23 16:57> - Lab Data Result diagrams: 05/24/23 05:48 05/25/23 16:09 <Jean Marie Figueroa - Last Filed: 06/01/23 06:30> - Medical Decision Making Was pt. sent in by a medical professional or institution (, PA, REFINISHER, urgent care, hospital, or halfway...) When possible be specific @ -[No] Did you speak to anyone other than the patient for history (EMS, parent, family, police, friend...)? What history was obtained from this source @ -, EMS Did you review nursing and triage notes (agree or disagree)? Why? @ -[I reviewed and agree with nursing and triage notes] Were old charts reviewed (outside hosp., previous admission, EMS record, old EKG, old radiological studies, urgent care reports/EKG's, halfway records)? Report findings @ -[No old charts were reviewed] Differential Diagnosis (chest pain, altered mental status, abdominal pain women, abdominal pain men, vaginal bleeding, weakness, fever, dyspnea, syncope, headach e, dizziness, GI bleed, back pain, seizure, CVA, palpatations, mental health, musculoskeletal)? @ -[not applicable] EKG interpreted by me (3pts min.). @ -[As above] X-rays interpreted by me (1pt min.). @ -[None done] CT interpreted by me (1pt min.). @ -[None done] U/S interpreted by me (1pt. min.). @ -[None done] What testing was considered but not performed or refused? (CT, X-rays, U/S, labs)? Why? @ -[None] What meds were considered but not given or refused? Why? @ -[None] Did you discuss the management of the patient with other professionals (professionals i.e. , PA, REFINISHER, lab, RT, psych nurse, social media content manager, president ceo & founder, teacher, national service officer, director of casework services)? Give summary @ -[No] Was smoking cessation discussed for >3mins.? @ -[No] Was critical care preformed (if so, how long)? @ -[No] Were there social determinants of health that impacted care today? How? (Homelessness, low income, unemployed, alcoholism, drug addiction, transportation, low edu. Level, literacy, decrease access to med. care, senior care, rehab)? @ -[No] Was there de-escalation of care discussed even if they declined (Discuss DNR or withdrawal of care, Hospice)? DNR status @ -[No] What co-morbidities impacted this encounter? (DM, HTN, Smoking, COPD, CAD, Cancer, CVA, ARF, Chemo, Hep., AIDS, mental health diagnosis, sleep apnea, morbid obesity)? @ -[None] Was patient admitted / discharged? Hospital course, mention meds given and route, prescriptions, significant lab abnormalities, going to OR and other pertinent info. @ -62-year-old male with past medical history significant for COPD and CVA presents the emergency department with a chief complaint of shortness of breath. Patient had a thorough history and physical exam performed. Physical exam reveals a pleasant male. Oxygen saturation is 89-91% on 4 L of oxygen. No signs of acute respiratory distress are noted. Patient not conversationally dyspneic. He is not. Patient had laboratory studies, WBC 10.3. Initial d- dimer is 0.96. Patient signed out to Dr. Reyes who assumes care of the patient pending CT results. (Eli Velásquez) Was patient admitted / discharged? Hospital course, mention meds given and route, prescriptions, significant lab abnormalities, going to OR and other pertinent info. @ -[The patient's CT was completed and I interpreted this as not showing acute pulmonary embolism. Findings consistent with COPD exacerbation. The patient's case discussed with admitting physician and patient will have further treatment as well as pulmonology evaluation. Undiagnosed new problem with uncertain prognosis? @ -[No] Drug Therapy requiring intensive monitoring for toxicity (Heparin, Nitro, Insulin, Cardizem)? @ -[No] Were any procedures done? @ -[No] Diagnosis/symptom? @ -[Acute exacerbation of COPD Acute, or Chronic, or Acute on Chronic? @ -[Acute on chronic Uncomplicated (without systemic symptoms) or Complicated (systemic symptoms)? @ -[Uncomplicated Side effects of treatment? @ -[No] Exacerbation, Progression, or Severe Exacerbation? @ -[Exacerbation Poses a threat to life or bodily function? How? (Chest pain, [place], SD, pneumonia, PE, COPD, DKA, ARF, appy, cholecystitis, CVA, Diverticulitis, Homicidal, Suicidal, threat to staff... and all critical care pts) @ -[No] (Jean Marie Figueroa) - Lab Data Lab Results 05/22/23 05/22/23 05/22/23 Range/Units 01:41 01:41 01:41 WBC 10.3 (3.8-10.6) k/uL RBC 4.06 L (4.30-5.90) m/uL Hgb 13.1 (13.0-17.5) gm/dL Hct 40.4 (39.0-53.0) % MCV 99.6 (80.0-100.0) fL MCH 32.3 (25.0-35.0) pg MCHC 32.5 (31.0-37.0) g/dL RDW 13.7 (11.5-15.5) % Plt Count 85 L (150-450) k/uL MPV 7.9 Neutrophils % 86 % Lymphocytes % 8 % Monocytes % 4 % Eosinophils % 1 % Basophils % 0 % Neutrophils # 8.8 H (1.3-7.7) k/uL Lymphocytes # 0.8 L (1.0-4.8) k/uL Monocytes # 0.4 (0-1.0) k/uL Eosinophils # 0.1 (0-0.7) k/uL Basophils # 0.0 (0-0.2) k/uL D-Dimer (<0.60) mg/L FEU Sodium 135 L (137-145) mmol/L Potassium 4.3 (3.5-5.1) mmol/L Chloride 99 (98-107) mmol/L Carbon Dioxide 23 (22-30) mmol/L Anion Gap 13 mmol/L BUN 19 (9-20) mg/dL Creatinine 0.78 (0.66-1.25) mg/dL Est GFR (CKD-EPI)AfAm >90 (>60 ml/min/1.73 sqM) Est GFR (CKD-EPI)NonAf >90 (>60 ml/min/1.73 sqM) Glucose 263 H (74-99) mg/dL Plasma Lactic Acid [place] (0.7-2.0) mmol/L Calcium 9.3 (8.4-10.2) mg/dL Total Bilirubin 0.5 (0.2-1.3) mg/dL AST 26 (17-59) U/L ALT 21 (4-49) U/L Alkaline Phosphatase 84 (38-126) U/L Troponin I (0.000-0.034) ng/mL NT-Pro-B Natriuret Pep pg/mL Total Protein 7.8 (6.3-8.2) g/dL Albumin 4.4 (3.5-5.0) g/dL Urine Color Urine Appearance (Clear) Urine pH (5.0-8.0) Ur Specific [place] (1.001-1.035) Urine Protein (Negative) Urine Glucose (UA) (Negative) Urine Ketones (Negative) Urine Blood (Negative) Urine Nitrite (Negative) Urine Bilirubin (Negative) Urine Urobilinogen (<2.0) mg/dL Ur Leukocyte Esterase (Negative) Influenza Type A (PCR) Not Detected (Not Detectd) Influenza Type B (PCR) Not Detected (Not Detectd) RSV (PCR) Not Detected (Not Detectd) SARS-CoV-2 (PCR) Not Detected (Not Detectd) 05/22/23 05/22/23 05/22/23 Range/Units 01:41 03:48 03:48 WBC (3.8-10.6) k/uL RBC (4.30-5.90) m/uL Hgb (13.0-17.5) gm/dL Hct (39.0-53.0) % MCV (80.0-100.0) fL MCH (25.0-35.0) pg MCHC (31.0-37.0) g/dL RDW (11.5-15.5) % Plt Count (150-450) k/uL MPV Neutrophils % % Lymphocytes % % Monocytes % % Eosinophils % % Basophils % % Neutrophils # (1.3-7.7) k/uL Lymphocytes # (1.0-4.8) k/uL Monocytes # (0-1.0) k/uL Eosinophils # (0-0.7) k/uL Basophils # (0-0.2) k/uL D-Dimer 0.96 H (<0.60) mg/L FEU Sodium (137-145) mmol/L Potassium (3.5-5.1) mmol/L Chloride (98-107) mmol/L Carbon Dioxide (22-30) mmol/L Anion Gap mmol/L BUN (9-20) mg/dL Creatinine (0.66-1.25) mg/dL Est GFR (CKD-EPI)AfAm (>60 ml/min/1.73 sqM) Est GFR (CKD-EPI)NonAf (>60 ml/min/1.73 sqM) Glucose (74-99) mg/dL Plasma Lactic Acid [place] 1.3 (0.7-2.0) mmol/L Calcium (8.4-10.2) mg/dL Total Bilirubin (0.2-1.3) mg/dL AST (17-59) U/L ALT (4-49) U/L Alkaline Phosphatase (38-126) U/L Troponin I (0.000-0.034) ng/mL NT-Pro-B Natriuret Pep 196 pg/mL Total Protein (6.3-8.2) g/dL Albumin (3.5-5.0) g/dL Urine Color Urine Appearance (Clear) Urine pH (5.0-8.0) Ur Specific [place] (1.001-1.035) Urine Protein (Negative) Urine Glucose (UA) (Negative) Urine Ketones (Negative) Urine Blood (Negative) Urine Nitrite (Negative) Urine Bilirubin (Negative) Urine Urobilinogen (<2.0) mg/dL Ur Leukocyte Esterase (Negative) Influenza Type A (PCR) (Not Detectd) Influenza Type B (PCR) (Not Detectd) RSV (PCR) (Not Detectd) SARS-CoV-2 (PCR) (Not Detectd) 05/22/23 05/22/23 Range/Units 06:54 07:01 WBC (3.8-10.6) k/uL RBC (4.30-5.90) m/uL Hgb (13.0-17.5) gm/dL Hct (39.0-53.0) % MCV (80.0-100.0) fL MCH (25.0-35.0) pg MCHC (31.0-37.0) g/dL RDW (11.5-15.5) % Plt Count (150-450) k/uL MPV Neutrophils % % Lymphocytes % % Monocytes % % Eosinophils % % Basophils % % Neutrophils # (1.3-7.7) k/uL Lymphocytes # (1.0-4.8) k/uL Monocytes # (0-1.0) k/uL Eosinophils # (0-0.7) k/uL Basophils # (0-0.2) k/uL D-Dimer (<0.60) mg/L FEU Sodium (137-145) mmol/L Potassium (3.5-5.1) mmol/L Chloride (98-107) mmol/L Carbon Dioxide (22-30) mmol/L Anion Gap mmol/L BUN (9-20) mg/dL Creatinine (0.66-1.25) mg/dL Est GFR (CKD-EPI)AfAm (>60 ml/min/1.73 sqM) Est GFR (CKD-EPI)NonAf (>60 ml/min/1.73 sqM) Glucose (74-99) mg/dL Plasma Lactic Acid [place] (0.7-2.0) mmol/L Calcium (8.4-10.2) mg/dL Total Bilirubin (0.2-1.3) mg/dL AST (17-59) U/L ALT (4-49) U/L Alkaline Phosphatase (38-126) U/L Troponin I <0.012 (0.000-0.034) ng/mL NT-Pro-B Natriuret Pep pg/mL Total Protein (6.3-8.2) g/dL Albumin (3.5-5.0) g/dL Urine Color Yellow Urine Appearance Clear (Clear) Urine pH 5.0 (5.0-8.0) Ur Specific [place] 1.015 (1.001-1.035) Urine Protein Negative (Negative) Urine Glucose (UA) Negative (Negative) Urine Ketones Negative (Negative) Urine Blood Negative (Negative) Urine Nitrite Negative (Negative) Urine Bilirubin Negative (Negative) Urine Urobilinogen <2.0 (<2.0) mg/dL Ur Leukocyte Esterase Negative (Negative) Influenza Type A (PCR) (Not Detectd) Influenza Type B (PCR) (Not Detectd) RSV (PCR) (Not Detectd) SARS-CoV-2 (PCR) (Not Detectd) Disposition Is patient prescribed a controlled substance at d/c from ED?: No Time of Disposition: 04:14 <Eli Velásquez - Last Filed: 05/29/23 16:57> <Jean Marie Figueroa - Last Filed: 06/01/23 06:30> Clinical Impression: Hypoxia, Shortness of breath Disposition: ADMITTED IP TO THIS HOSP Condition: Stable
--- NOTE | 2023-05-22 06:16 | CT ---
EXAMINATION TYPE: CT chest angio for PE DATE OF EXAM: 05/22/2023 COMPARISON: NONE HISTORY: Positive d-dimer CT DLP: 637 mGycm. Automated Exposure Control for Dose Reduction was Utilized. CONTRAST: CTA scan of the thorax is performed with IV Contrast, patient injected with 100 mL of Isovue 370, pul monary embolism protocol. MIP Images are created on CT scanner and reviewed. FINDINGS: LUNGS: Dependent atelectasis is seen in the lung bases. There is bilateral mucous plugging with mult ifocal areas of consolidation and/or atelectasis in the bases. There is no pleural effusion or pneumo thorax seen. The tracheobronchial tree is patent. MEDIASTINUM: Suboptimal bolus with most dense contrast in the SVC. No CT evidence for acute pulmonary embolism. There are prominent borderline enlarged bilateral hilar and mediastinal lymph nodes. Some enhancement of the aorta without aneurysm or dissection. Coronary artery calcification is present whi ch is underlying coronary artery disease. No pericardial effusion is seen. OTHER: The liver has lobulated contour suggestive of underlying cirrhosis with occasional subcentimet er hypodense lesion that is too small to further characterize. Visualized spleen is prominent. No vis ualized ascites. S-shaped scoliosis is seen. IMPRESSION: 1. Suboptimal study but no CT evidence for acute pulmonary embolism. 2. Bilateral bibasilar mucous plugging with multifocal areas of postobstructive and dependent atelect asis present. 3. Suspect cirrhosis and underlying portal venous hypertension. Correlate clinically.
--- NOTE | 2023-05-22 06:19 | XR ---
EXAMINATION TYPE: XR chest 2V DATE OF EXAM: 05/22/2023 COMPARISON: Chest x-ray March 10, 2023 HISTORY: Worsening difficulty breathing and weakness. TECHNIQUE: Frontal and lateral views of the chest are obtained. FINDINGS: There is left greater than right bibasilar opacity redemonstrated. No pleural effusion or pneumothorax seen bilaterally. The cardiac silhouette size is stable and upper limits of normal. Th e osseous structures are intact. IMPRESSION: Left greater than right bibasilar acute infiltrate and/or atelectasis.
[2023-05-22] MEDS ORDERED: NALOXONE 0.4 MG/ML 1 ML VIAL IVP PRN (07:05)
[2023-05-22] MEDS ORDERED: IPRATROPIUM-ALBUTEROL 3 ML NEB INHALATION PRN (07:05)
[2023-05-22 07:20] LABS: Color,Urine Yellow
[2023-05-22 07:21] LABS: Appearance,Urine Clear (Clear); Bilirubin,Urine Negative (Negative); Blood,Urine Negative (Negative); Glucose,Urine (UA) Negative (Negative); Ketones,Urine Negative (Negative); Leukocyte Esterase,Urine Negative (Negative); Nitrite,Urine Negative (Negative); Protein,Urine Negative (Negative); Specific Gravity,Urine 1.015 (1.001-1.035); Urobilinogen,Urine <2.0 mg/dL (<2.0)
[2023-05-22] MEDS: IPRATROPIUM-ALBUTEROL 3 ML NEB INHALATION SCH ×4 (08:08→21:17)
[2023-05-22] MEDS: AZITHROMYCIN 500 MG TAB PO SCH (09:15)
[2023-05-22 11:18] LABS: Glucose,Whole Blood 237 mg/dL (70-110)
[2023-05-22] MEDS: INSULIN DETEMIR (LEVEMIR) 100 UNIT/ML SYR SQ SCH (11:32)
[2023-05-22] MEDS: INSULIN ASPART (NovoLOG) 100 UNIT/ML VIAL SQ SCH ×3 (12:02→20:50)
[2023-05-22] MEDS: ACETAMINOPHEN TAB 325 MG TAB PO PRN ×2 (14:15→20:49)
--- NOTE | 2023-05-22 15:36 | P.CNPUL ---
History of Present Illness Consult date: 05/22/23 Reason for consult: dyspnea, COPD History of present illness: 62-year-old male patient with known history of COPD, presented to the hospital because of worsening shortness of breath. Increase call chest tightness and wheezing. Apparently was febrile and also home. No aspiration. No pleurisy. No hemoptysis. Not compliant with home oxygen therapy. Maintain on Symbicort regarding COPD along with albuterol neb treatments on an as-needed basis. No chest pain. No pleurisy. No hemoptysis. No altered mentation. Chest x-ray is showing limited basilar atelectasis. Computed tomography scan of the chest was also done and the patient was found to have no evidence of any pulmonary embolism. There was some bilateral bibasilar atelectatic change and some chronic cirrhotic changes along the liver. The patient's previous history of hepatitis C that was treated. The patient has no risk of 10.3, hemoglobin 13.1, platelet count of 85, normal electrolytes, renal function is normal. UA is negative. The vital screening including influenza, RSV and Covid 19 oral negative. Review of Systems CONSTITUTIONAL: Denies any recent significant weight loss or weight gain. EYES: Denies change in vision. EARS, NOSE, MOUTH, THROAT: Denies headaches, denies sore throat. CARDIOVASCULAR: Denies chest pain, palpitations or syncopal episodes. RESPIRATORY: Positive for shortness of breath, cough, congestion no hemoptysis. GASTROINTESTINAL: Denies change in appetite, denies abdominal pain GENITOURINARY: Denies hematuria, denies infections. MUSKULOSKELETAL: Denies pain, denies swelling. INTEGUMENTARY: Denies rash, denies eczema. NEUROLOGICAL: Denies recent memory loss, no recent seizure activity. PSYCHIATRIC: Denies anxiety, denies depression. HEMATOLOGIC/LYMPHATIC: Denies anemia, denies enlarged lymph nodes. Past Medical History Past Medical History: COPD, CVA/TIA, Diabetes Mellitus, Hyperlipidemia, Hypertension, Memory Impairment, Myocardial Infarction ([place]), Prostate Disorder, Seizure Disorder, Skin Disorder Additional Past Medical History / Comment(s): duodenal ulcer, pain and numbness cyrus legs and feet,pain pump in back, anemia. TIA X3, HEPATITIS C PAST HISTORY, LAST SEIZURE 2012,hiatal hernia Last Myocardial Infarction Date:: POSSIBLE [place] 2012 History of Any Multi-Drug Resistant Organisms: None Reported Past Surgical History: Appendectomy, Back Surgery, Heart Catheterization, Orthopedic Surgery Additional Past Surgical History / Comment(s): titanium lyn in lt leg, skin graph to rt 1st and middle finger, lt eardum replaced, cyrus. foot surgery to arch, cataract surgery bilateral with implant,skin graft left leg Past Anesthesia/Blood Transfusion Reactions: No Reported Reaction Past Psychological History: Anxiety, Depression Additional Psychological History / Comment(s): past history of depression Smoking Status: Former smoker Past Alcohol Use History: None Reported Additional Past Alcohol Use History / Comment(s): Pt started smoking in 1974 and is a 1-2ppd smoker Past Drug Use History: None Reported - Past Family History Mother Family Medical History: Diabetes Mellitus, Pulmonary Embolus Father Additional Family Medical History / Comment(s): Father had pain problems/hallucinations. He committed suicide. Medications and Allergies Home Medications Medication Instructions Recorded Confirmed Type Albuterol Sulfate [Proair Hfa] 2 puff INHALATION RT-QID PRN 10/22/20 05/22/23 History Budesonide-Formot 160-4.5 Mcg 2 puff INHALATION RT-BID 10/22/20 05/22/23 History [Symbicort 160-4.5 Mcg Inhaler] Ferrous Sulfate [Iron (65 MG 325 mg PO DAILY 12/10/20 05/22/23 History Elemental)] Clopidogrel [Plavix] 75 mg PO HS 06/30/21 05/22/23 History Primidone [Mysoline] 50 mg PO HS 06/30/21 05/22/23 History Escitalopram [Lexapro] 20 mg PO HS 02/23/23 05/22/23 History Rosuvastatin Calcium [Crestor] 40 mg PO HS 03/14/23 05/22/23 History amLODIPine BESYLATE 2.5 mg PO BID 03/14/23 05/22/23 History Acetaminophen Tab [Tylenol] 325 mg PO Q6HR PRN tab 03/16/23 05/22/23 Rx Ipratropium-Albuterol Nebulize 3 ml INHALATION RT-QID each 03/16/23 05/22/23 Rx [Duoneb 0.5 mg-3 mg/3 ml Soln] Lacosamide [Vimpat] 200 mg PO BID #6 tab 03/16/23 05/22/23 Rx Aspirin EC [Ecotrin Low Dose] 81 mg PO DAILY 05/22/23 05/22/23 History INSULIN LISPRO (HumaLOG) [humaLOG] See Protocol SQ ACHS 05/22/23 05/22/23 History Insulin Detemir [Levemir Flexpen] 48 units SQ DAILY 05/22/23 05/22/23 History Multivitamins, Thera [Multivitamin 1 tab PO DAILY 05/22/23 05/22/23 History (formulary)] Allergies Allergy/AdvReac Type Severity Reaction Status Date / Time morphine AdvReac Nausea & Verified 05/22/23 11:38 Vomiting Physical Exam Vitals: Vital Signs Temp Pulse Resp BP Pulse Ox 05/22/23 12:03 89 18 118/60 93 L 05/22/23 11:29 87 05/22/23 11:21 87 05/22/23 10:23 75 18 154/80 94 L 05/22/23 09:13 99.0 F 82 18 170/84 91 L 05/22/23 08:19 81 05/22/23 08:13 92 L 05/22/23 08:10 75 05/22/23 06:00 152/71 93 L 05/22/23 05:00 155/77 94 L 05/22/23 04:49 93 L 05/22/23 01:15 99.2 F 89 18 173/79 91 L Intake and Output 05/21/23 05/22/23 05/22/23 22:59 06:59 14:59 Other: Weight 99.79 kg GENERAL EXAM: Alert, pleasant 62-year-old male patient, somewhat of a poor histo [place], on 4 L NC nasal cannula and the patient is, comfortable, communicating HEAD: Normocephalic. EYES: Normal reaction of pupils, equal size. NOSE: Clear with pink turbinates. THROAT: No erythema or exudates. NECK: No masses, no JVD. CHEST: No chest wall deformity. LUNGS: Equal air entry with few scattered rhonchi. CVS: S1 and S2 normal with no audible murmur, regular rhythm. ABDOMEN: No hepatosplenomegaly, normal bowel sounds, no guarding or rigidity. SPINE: No scoliosis or deformity SKIN: No rashes CENTRAL NERVOUS SYSTEM: No focal deficits, tone is normal in all 4 extremities. EXTREMITIES: There is no peripheral edema. No clubbing, no cyanosis. Peripheral pulses are intact. Results - Laboratory Findings CBC and BMP: 05/22/23 01:41 05/22/23 01:41 PT/INR, D-dimer D-Dimer 0.96 mg/L FEU (<0.60) H 05/22/23 03:48 Abnormal lab findings: Abnormal Labs 05/22/23 05/22/23 05/22/23 01:41 01:41 03:48 RBC 4.06 L Plt Count 85 L Neutrophils # 8.8 H Lymphocytes # 0.8 L D-Dimer 0.96 H Sodium 135 L Glucose 263 H POC Glucose (mg/dL) 05/22/23 11:16 RBC Plt Count Neutrophils # Lymphocytes # D-Dimer Sodium Glucose POC Glucose (mg/dL) 237 H - Diagnostic Findings Chest x-ray: image reviewed CT scan - chest: image reviewed Assessment and Plan Plan: Acute hypoxemic respiratory failure , currently on 4 L of oxygen by nasal cannula Acute COPD exacerbation. Chest x-ray and the computed tomography scan of the chest x-ray; atelectatic change in lung bases. No clear indication for underlying pneumonia History of CVA History of seizure disorder Chronic neck and back pain with pain Former smoker Memory impairment Hypertension Diabetes mellitus, type II Hypertension Chronic obstructive pulmonary disease History of hepatitis C with secondary liver cirrhosis Anxiety/depression Chronic thrombocytopenia Poor overall functional performance based on the above-mentioned multiple comorbidities Plan Titrate oxygen flow to maintain saturation above 90% Start the patient on prednisone burst taper Agree on Symbicort Agree on DuoNeb Home medications are resumed Antibiotic coverage with Zithromax We'll follow
[2023-05-22 17:31] LABS: Glucose,Whole Blood 208 mg/dL (70-110)
[2023-05-22] MEDS: predniSONE 20 MG TAB PO SCH (17:49)
[2023-05-22] MEDS: LACTULOSE 20 GM/30 ML CUP PO SCH ×2 (17:49→20:51)
--- NOTE | 2023-05-22 18:55 | P.HPIM ---
History of Present Illness H&P Date: 05/22/23 Chief Complaint: Shortness of breath 62-year-old male with past medical history significant for CVA diabetes mellitus, COPD presents to the emergency department with a chief complaint of shortness of breath. Patient complains of progressive shortness of breath over the last week however it was worse this evening. He does not wear oxygen at home. It is upon exertion. Occasionally he will have bilateral lower extremity edema. He minutes to a productive cough that is clean color. He also reports having a fever in the ambulance. Denies chest pain, palpitations, nausea, vomiting, abdominal pain. Upon arrival to ED patient's oxygen saturation was found to be at 89% on 4 L of O2 Blood work reveals a WBC of 10.3, hemoglobin of 13.1 and platelet count of 85, sodium 135, potassium 4.3, BUN/creatinine of 19/0.78, blood glucose of 263, d- dimer elevated at 0.96, lactic acid level of 1.3, BNP of 196 Computed tomography scan of the chest was also done and the patient was found to have no evidence of any pulmonary embolism. There was some bilateral bibasilar atelectatic change and some chronic cirrhotic changes along the liver. The patient's previous history of hepatitis C that was treated. EKG: sinus rhythm (Rate 75 bpm), normal axis, normal QRS, normal ST/T Review of Systems REVIEW OF SYSTEMS: CONSTITUTIONAL: No fever, no malaise, no fatigue. HEENT: No recent visual problems or hearing problems. Denied any sore throat. CARDIOVASCULAR: No chest pain, orthopnea, PND, no palpitations, no syncope. PULMONARY: No shortness of breath, no cough, no hemoptysis. GASTROINTESTINAL: No diarrhea, no nausea, no vomiting, no abdominal pain. NEUROLOGICAL: No headaches, no weakness, no numbness. HEMATOLOGICAL: Denies any bleeding or petechiae. GENITOURINARY: Denies any burning micturition, frequency, or urgency. MUSCULOSKELETAL/RHEUMATOLOGICAL: Denies any joint pain, swelling, or any muscle pain. ENDOCRINE: Denies any polyuria or polydipsia. The rest of the 14-point review of systems is negative. Past Medical History Past Medical History: COPD, CVA/TIA, Diabetes Mellitus, Hyperlipidemia, Hypertension, Memory Impairment, Myocardial Infarction ([place]), Prostate Disorder, Seizure Disorder, Skin Disorder Additional Past Medical History / Comment(s): duodenal ulcer, pain and numbness cyrus legs and feet,pain pump in back, anemia. TIA X3, HEPATITIS C PAST HISTORY, LAST SEIZURE 2012,hiatal hernia Last Myocardial Infarction Date:: POSSIBLE [place] 2012 History of Any Multi-Drug Resistant Organisms: None Reported Past Surgical History: Appendectomy, Back Surgery, Heart Catheterization, Orthopedic Surgery Additional Past Surgical History / Comment(s): titanium lyn in lt leg, skin graph to rt 1st and middle finger, lt eardum replaced, cyrus. foot surgery to arch, cataract surgery bilateral with implant,skin graft left leg Past Anesthesia/Blood Transfusion Reactions: No Reported Reaction Past Psychological History: Anxiety, Depression Additional Psychological History / Comment(s): past history of depression Smoking Status: Former smoker Past Alcohol Use History: None Reported Additional Past Alcohol Use History / Comment(s): Pt started smoking in 1974 and is a 1-2ppd smoker Past Drug Use History: None Reported - Past Family History Mother Family Medical History: Diabetes Mellitus, Pulmonary Embolus Father Additional Family Medical History / Comment(s): Father had pain problems/hallucinations. He committed suicide. Medications and Allergies Home Medications Medication Instructions Recorded Confirmed Type Albuterol Sulfate [Proair Hfa] 2 puff INHALATION RT-QID PRN 10/22/20 05/22/23 History Budesonide-Formot 160-4.5 Mcg 2 puff INHALATION RT-BID 10/22/20 05/22/23 History [Symbicort 160-4.5 Mcg Inhaler] Ferrous Sulfate [Iron (65 MG 325 mg PO DAILY 12/10/20 05/22/23 History Elemental)] Clopidogrel [Plavix] 75 mg PO HS 06/30/21 05/22/23 History Primidone [Mysoline] 50 mg PO HS 06/30/21 05/22/23 History Escitalopram [Lexapro] 20 mg PO HS 02/23/23 05/22/23 History Rosuvastatin Calcium [Crestor] 40 mg PO HS 03/14/23 05/22/23 History amLODIPine BESYLATE 2.5 mg PO BID 03/14/23 05/22/23 History Acetaminophen Tab [Tylenol] 325 mg PO Q6HR PRN tab 03/16/23 05/22/23 Rx Ipratropium-Albuterol Nebulize 3 ml INHALATION RT-QID each 03/16/23 05/22/23 Rx [Duoneb 0.5 mg-3 mg/3 ml Soln] Lacosamide [Vimpat] 200 mg PO BID #6 tab 03/16/23 05/22/23 Rx Aspirin EC [Ecotrin Low Dose] 81 mg PO DAILY 05/22/23 05/22/23 History INSULIN LISPRO (HumaLOG) [humaLOG] See Protocol SQ ACHS 05/22/23 05/22/23 History Insulin Detemir [Levemir Flexpen] 48 units SQ DAILY 05/22/23 05/22/23 History Multivitamins, Thera [Multivitamin 1 tab PO DAILY 05/22/23 05/22/23 History (formulary)] Allergies Allergy/AdvReac Type Severity Reaction Status Date / Time morphine AdvReac Nausea & Verified 05/22/23 11:38 Vomiting Physical Exam Vitals: Vital Signs Temp Pulse Resp BP Pulse Ox 05/22/23 09:13 99.0 F 82 18 170/84 91 L 05/22/23 08:19 81 05/22/23 08:13 92 L 05/22/23 08:10 75 05/22/23 06:00 152/71 93 L 05/22/23 05:00 155/77 94 L 05/22/23 04:49 93 L 05/22/23 01:15 99.2 F 89 18 173/79 91 L Intake and Output 05/21/23 05/22/23 05/22/23 22:59 06:59 14:59 Other: Weight 99.79 kg General: Alert, in no acute distress Head: atraumatic normocephalic. Eyes PERRL, EOMI intact, mucous membranes moist Respiratory: Lungs clear to auscultation bilaterally Cardiovascular: Regular rate and rhythm Abdominal: Soft without guarding or rebound Extremities: Normal inspection with full range of motion and normal capillary refill Neuroogic: alert and oriented 3, CN II-XII intact, able to ambulate with steady gait Skin: warm dry and intact with normal color Results CBC & Chem 7: 05/22/23 01:41 05/22/23 01:41 Labs: Abnormal Lab Results - Last 24 Hours (Table) 05/22/23 05/22/23 05/22/23 Range/Units 01:41 01:41 03:48 RBC 4.06 L (4.30-5.90) m/uL Plt Count 85 L (150-450) k/uL Neutrophils # 8.8 H (1.3-7.7) k/uL Lymphocytes # 0.8 L (1.0-4.8) k/uL D-Dimer 0.96 H (<0.60) mg/L FEU Sodium 135 L (137-145) mmol/L Glucose 263 H (74-99) mg/dL Assessment and Plan Assessment: 1. Acute hypoxemic respiratory failure; patient remains on O2 at 4 L per nasal cannula; we will plan to titrate her weaning as able keeping O2 saturation above 89% 2. Acute exacerbation COPD; patient has been placed on a steroid burst taper by pulmonary service; DuoNeb nebulizer treatments 4 times a day and when necessary; continue with home Symbicort inhaler - Patient has been placed on azithromycin for medical prophylaxis and COPD exacerbation 3. Elevated d-dimer; rule out PE - Computed tomography scan of the chest was also done and the patient was found to have no evidence of any pulmonary embolism. There was some bilateral bibasilar atelectatic change and some chronic cirrhotic changes along the liver. The patient's previous history of hepatitis C that was treated. 4. 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 Hyperglycemia without acidosis/ diabetes mellitus type 2; we will monitor Accu-Cheks every before meals and at bedtime; continue with home dose of Levemir 65 units subcu daily at bedtime; monitor Accu-Cheks every before meals and at bedtime with insulin sliding scale 6. Hypertension; bisoprololhydrochlorothiazide 56 0.25 mg daily; amlodipine 2.5 mg twice a day 7. History of seizure disorder; Vimpat 200 mg twice a day along with Mysoline 50 mg by mouth daily at bedtime 8. History of CVA with memory impairment; Plavix 75 mg daily 9. Anxiety/depression; Lexapro 20 mg by mouth daily at bedtime DVT prophylaxis SCDs only given thrombocytopenia CODE STATUS; full code
[2023-05-22 20:43] LABS: Glucose,Whole Blood 210 mg/dL (70-110)
[2023-05-22] MEDS: LACOSAMIDE 150 MG TABLET PO SCH (20:49)
[2023-05-22] MEDS: ESCITALOPRAM 20 MG TAB PO SCH (20:49)
[2023-05-22] MEDS: PRIMIDONE 50 MG TAB PO SCH (20:49)
[2023-05-22] MEDS: LACOSAMIDE 50 MG TABLET PO SCH (20:49)
[2023-05-22] MEDS: amLODIPine 2.5 MG TAB PO SCH (20:49)
[2023-05-22] MEDS: CLOPIDOGREL 75 MG TAB PO SCH (20:49)
[2023-05-22] MEDS: SYMBICORT 160-4.5 MCG INHALER INHALATION SCH (21:17)
[2023-05-23] MEDS: LACTULOSE 20 GM/30 ML CUP PO SCH ×3 (05:10→20:59)
[2023-05-23 06:06] LABS: Glucose,Whole Blood 284 mg/dL (70-110)
[2023-05-23] MEDS: INSULIN DETEMIR (LEVEMIR) 100 UNIT/ML SYR SQ SCH (06:33)
[2023-05-23] MEDS: INSULIN ASPART (NovoLOG) 100 UNIT/ML VIAL SQ SCH ×4 (06:33→20:59)
[2023-05-23] MEDS: LACOSAMIDE 150 MG TABLET PO SCH ×2 (08:04→20:58)
[2023-05-23] MEDS: LACOSAMIDE 50 MG TABLET PO SCH ×2 (08:04→20:58)
[2023-05-23] MEDS: predniSONE 20 MG TAB PO SCH (08:04)
[2023-05-23] MEDS: AZITHROMYCIN 500 MG TAB PO SCH (08:04)
[2023-05-23] MEDS: FERROUS SULFATE 325 MG TAB PO SCH (08:05)
[2023-05-23] MEDS: BISOPROLOL-HCTZ 5-6.25 MG 1 EACH TAB PO SCH (08:05)
[2023-05-23] MEDS: amLODIPine 2.5 MG TAB PO SCH ×2 (08:05→20:58)
[2023-05-23] MEDS: SYMBICORT 160-4.5 MCG INHALER INHALATION SCH ×2 (08:18→19:24)
[2023-05-23] MEDS: IPRATROPIUM-ALBUTEROL 3 ML NEB INHALATION SCH ×4 (08:18→19:24)
[2023-05-23 10:09] LABS: Basophils # (A) 0.02 X 10*3/uL (0.00-0.10); Basophils % (A) 0.3 %; Eosinophils # (A) 0 X 10*3/uL (0.04-0.35); Eosinophils % (A) 0 %; HCT 39.5 % (39.6-50.0); HGB 13.1 g/dL (13.0-17.0); Lymphocytes # (A) 0.42 X 10*3/uL (0.90-5.00); Lymphocytes % (A) 6.3 %; MCH 32.2 pg (27.0-32.0); MCHC 33.2 g/dL (32.0-37.0); MCV 97.1 FL (80.0-97.0); Mean Platelet Volume 10.6 FL (9.5-12.2); Monocytes # (A) 0.67 X 10*3/uL (0.20-1.00); NRBC Per 100 WBC 0 X 10*3/uL (0.00-0.01); Neutrophils # (A) 5.58 X 10*3/uL (1.80-7.70); Neutrophils % (A) 83.1 %; Platelet Count 111 X 10*3/uL (140-440); RBC 4.07 X 10*6/uL (4.40-5.60); RBC Morphology Normal (Normal); RDW 13.3 % (11.5-14.5); WBC 6.71 X 10*3/uL (4.50-10.00)
[2023-05-23 10:16] LABS: Blood Urea Nitrogen 17.1 mg/dL (9.0-27.0); Calcium 9.8 mg/dL (8.7-10.3); Carbon Dioxide 22.9 mmol/L (21.6-31.8); Chloride 98 mmol/L (96-109); Glucose 301 mg/dL (70-110); Potassium 4.5 mmol/L (3.5-5.5); Sodium 137 mmol/L (135-145)
[2023-05-23 11:07] LABS: Glucose,Whole Blood 235 mg/dL (70-110)
--- NOTE | 2023-05-23 12:29 | P.PN ---
Subjective Progress Note Date: 05/23/23 62-year-old male patient with known history of COPD, presented to the hospital because of worsening shortness of breath. Increase call chest tightness and wheezing. Apparently was febrile and also home. No aspiration. No pleurisy. No hemoptysis. Not compliant with home oxygen therapy. Maintain on Symbicort regarding COPD along with albuterol neb treatments on an as-needed basis. No chest pain. No pleurisy. No hemoptysis. No altered mentation. Chest x-ray is showing limited basilar atelectasis. Computed tomography scan of the chest was also done and the patient was found to have no evidence of any pulmonary embolism. There was some bilateral bibasilar atelectatic change and some banjo repairer angelica cirrhotic changes along the liver. The patient's previous history of hepatitis C that was treated. The patient has no risk of 10.3, hemoglobin 13.1, platelet count of 85, normal electrolytes, renal function is normal. UA is negative. The vital screening including influenza, RSV and Covid 19 oral negative. On today's evaluation of 05/23/2023, the patient is being treated for COPD exacerbation. He continues to have some congested cough and sputum sample will be collected. Remains on Zithromax.. No pleurisy. No hemoptysis. No chest pain. No other new complaints otherwise for now. The patient remains on bronchodilators. The patient is currently on oral prednisone. Home medications have been resumed. Objective - Vital Signs Vital signs: Vital Signs Temp 98.4 F 05/23/23 07:11 Pulse 86 05/23/23 08:38 Resp 20 05/23/23 07:11 BP 153/68 05/23/23 07:11 Pulse Ox 91 L 05/23/23 08:19 FiO2 Intake & Output 05/22/23 05/23/23 05/23/23 18:59 06:59 18:59 Intake Total 320 Output Total 550 Balance 320 -550 Weight 99.79 kg Intake: Oral 320 Output: Urine 550 Other: # Voids 1 # Bowel Movements 2 - Exam GENERAL EXAM: Alert, pleasant 62-year-old male patient, somewhat of a poor historian, on 4 L NC nasal cannula and the patient is, comfortable, communicating HEAD: Normocephalic. EYES: Normal reaction of pupils, equal size. NOSE: Clear with pink turbinates. THROAT: No erythema or exudates. NECK: No masses, no JVD. CHEST: No chest wall deformity. LUNGS: Equal air entry with few scattered rhonchi. CVS: S1 and S2 normal with no audible murmur, regular rhythm. ABDOMEN: No hepatosplenomegaly, normal bowel sounds, no guarding or rigidity. SPINE: No scoliosis or deformity SKIN: No rashes CENTRAL NERVOUS SYSTEM: No focal deficits, tone is normal in all 4 extremities. EXTREMITIES: There is no peripheral edema. No clubbing, no cyanosis. Peripheral pulses are intact. - Labs CBC & Chem 7: 05/23/23 06:39 05/23/23 06:39 Labs: Abnormal Lab Results - Last 24 Hours (Table) 05/22/23 05/22/23 05/22/23 Range/Units 11:16 17:30 20:42 RBC (4.40-5.60) X 10*6/uL Hct (39.6-50.0) % MCV (80.0-97.0) FL MCH (27.0-32.0) pg Plt Count (140-440) X 10*3/uL Lymphocytes # (0.90-5.00) X 10*3/uL Eosinophils # (0.04-0.35) X 10*3/uL Anion Gap (4.00-12.00) mmol/L Glucose (70-110) mg/dL POC Glucose (mg/dL) 237 H 208 H 210 H (70-110) mg/dL 05/23/23 05/23/23 05/23/23 Range/Units 06:05 06:39 06:39 RBC 4.07 L (4.40-5.60) X 10*6/uL Hct 39.5 L (39.6-50.0) % MCV 97.1 H (80.0-97.0) FL MCH 32.2 H (27.0-32.0) pg Plt Count 111 L (140-440) X 10*3/uL Lymphocytes # 0.42 L (0.90-5.00) X 10*3/uL Eosinophils # 0 L (0.04-0.35) X 10*3/uL Anion Gap 16.10 H (4.00-12.00) mmol/L Glucose 301 H (70-110) mg/dL POC Glucose (mg/dL) 284 H (70-110) mg/dL Assessment and Plan Plan: Acute hypoxemic respiratory failure , currently on 4 L of oxygen by nasal ivan lynette Acute COPD exacerbation. Chest x-ray and the computed tomography scan of the chest x-ray; atelectatic change in lung bases. No clear indication for underlying pneumonia History of CVA History of seizure disorder Chronic neck and back pain with pain Former smoker Memory impairment Hypertension Diabetes mellitus, type II Hypertension Chronic obstructive pulmonary disease History of hepatitis C with secondary liver cirrhosis Anxiety/depression Chronic thrombocytopenia Poor overall functional performance based on the above-mentioned multiple comorbidities Plan Continue same treatment Collected sputum Gram stain and culture Titrate oxygen flow to maintain saturation above 90% Continue prednisone 40 mg by mouth daily department of burst taper Agree on Symbicort Agree on DuoNeb Home medications are resumed Antibiotic coverage with Zithromax We'll follow
[2023-05-23 16:09] LABS: Glucose,Whole Blood 278 mg/dL (70-110)
[2023-05-23 19:20] LABS: Glucose,Whole Blood 311 mg/dL (70-110)
[2023-05-23] MEDS: ESCITALOPRAM 20 MG TAB PO SCH (20:59)
[2023-05-23] MEDS: PRIMIDONE 50 MG TAB PO SCH (20:59)
[2023-05-23] MEDS: CLOPIDOGREL 75 MG TAB PO SCH (20:59)
[2023-05-24] MEDS: ACETAMINOPHEN TAB 325 MG TAB PO PRN ×2 (02:25→08:25)
--- NOTE | 2023-05-24 06:01 | P.PN ---
Subjective Progress Note Date: 05/23/23 62-year-old male with past medical history significant for CVA diabetes mellitus, COPD presents to the emergency department with a chief complaint of shortness of breath. Patient complains of progressive shortness of breath over the last week however it was worse this evening. He does not wear oxygen at home. It is upon exertion. Occasionally he will have bilateral lower extremity edema. He minutes to a productive cough that is clean color. He also reports having a fever in the ambulance. Denies chest pain, palpitations, nausea, vomiting, abdominal pain. Upon arrival to ED patient's oxygen saturation was found to be at 89% on 4 L of O2 Blood work reveals a WBC of 10.3, hemoglobin of 13.1 and platelet count of 85, sodium 135, potassium 4.3, BUN/creatinine of 19/0.78, blood glucose of 263, d- dimer elevated at 0.96, lactic acid level of 1.3, BNP of 196 Computed tomography scan of the chest was also done and the patient was found to have no evidence of any pulmonary embolism. There was some bilateral bibasilar atelectatic change and some chronic cirrhotic changes along the liver. The patient's previous history of hepatitis C that was treated. EKG: sinus rhythm (Rate 75 bpm), normal axis, normal QRS, normal ST/T Objective - Vital Signs Vital signs: Vital Signs Temp 98.4 F 05/23/23 07:11 Pulse 86 05/23/23 08:38 Resp 20 05/23/23 07:11 BP 153/68 05/23/23 07:11 Pulse Ox 91 L 05/23/23 08:19 FiO2 Intake & Output 05/22/23 05/23/23 05/23/23 18:59 06:59 18:59 Intake Total 320 Output Total 550 Balance 320 -550 Weight 99.79 kg Intake: Oral 320 Output: Urine 550 Other: # Voids 1 # Bowel Movements 2 - Exam General: Alert, in no acute distress Head: atraumatic normocephalic. Eyes PERRL, EOMI intact, mucous membranes moist Respiratory: Lungs clear to auscultation bilaterally Cardiovascular: Regular rate and rhythm Abdominal: Soft without guarding or rebound Extremities: Normal inspection with full range of motion and normal capillary refill Neuroogic: alert and oriented 3, CN II-XII intact, able to ambulate with steady gait Skin: warm dry and intact with normal color - Labs CBC & Chem 7: 05/23/23 06:39 05/23/23 06:39 Labs: Abnormal Lab Results - Last 24 Hours (Table) 05/22/23 05/22/23 05/22/23 Range/Units 11:16 17:30 20:42 RBC (4.40-5.60) X 10*6/uL Hct (39.6-50.0) % MCV (80.0-97.0) FL MCH (27.0-32.0) pg Plt Count (140-440) X 10*3/uL Lymphocytes # (0.90-5.00) X 10*3/uL Eosinophils # (0.04-0.35) X 10*3/uL Anion Gap (4.00-12.00) mmol/L Glucose (70-110) mg/dL POC Glucose (mg/dL) 237 H 208 H 210 H (70-110) mg/dL 05/23/23 05/23/23 05/23/23 Range/Units 06:05 06:39 06:39 RBC 4.07 L (4.40-5.60) X 10*6/uL Hct 39.5 L (39.6-50.0) % MCV 97.1 H (80.0-97.0) FL MCH 32.2 H (27.0-32.0) pg Plt Count 111 L (140-440) X 10*3/uL Lymphocytes # 0.42 L (0.90-5.00) X 10*3/uL Eosinophils # 0 L (0.04-0.35) X 10*3/uL Anion Gap 16.10 H (4.00-12.00) mmol/L Glucose 301 H (70-110) mg/dL POC Glucose (mg/dL) 284 H (70-110) mg/dL Assessment and Plan Assessment: 1. Acute hypoxemic respiratory failure; patient remains on O2 at 4 L per nasal cannula; we will plan to titrate her weaning as able keeping O2 saturation above 89% 2. Acute exacerbation COPD; patient has been placed on a steroid burst taper by pulmonary service; DuoNeb nebulizer treatments 4 times a day and when necessary; continue with home Symbicort inhaler - Patient has been placed on azithromycin for medical prophylaxis and COPD exacerbation 3. Elevated d-dimer; rule out PE - Computed tomography scan of the chest was also done and the patient was found to have no evidence of any pulmonary embolism. There was some bilateral bibasilar atelectatic change and some chronic cirrhotic changes along the liver. The patient's previous history of hepatitis C that was treated. 4. 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 Hyperglycemia without acidosis/ diabetes mellitus type 2; we will monitor Accu-Cheks every before meals and at bedtime; continue with home dose of Levemir 65 units subcu daily at bedtime; monitor Accu-Cheks every before meals and at bedtime with insulin sliding scale 6. Hypertension; bisoprololhydrochlorothiazide 56 0.25 mg daily; amlodipine 2.5 mg twice a day 7. History of seizure disorder; Vimpat 200 mg twice a day along with Mysoline 50 mg by mouth daily at bedtime 8. History of CVA with memory impairment; Plavix 75 mg daily 9. Anxiety/depression; Lexapro 20 mg by mouth daily at bedtime DVT prophylaxis SCDs only given thrombocytopenia CODE STATUS; full code
[2023-05-24 06:07] LABS: Glucose,Whole Blood 88 mg/dL (70-110)
[2023-05-24] MEDS: INSULIN ASPART (NovoLOG) 100 UNIT/ML VIAL SQ SCH ×4 (06:44→21:18)
[2023-05-24] MEDS: INSULIN DETEMIR (LEVEMIR) 100 UNIT/ML SYR SQ SCH (06:50)
[2023-05-24] MEDS: LACOSAMIDE 50 MG TABLET PO SCH ×2 (08:26→21:17)
[2023-05-24] MEDS: predniSONE 20 MG TAB PO SCH (08:26)
[2023-05-24] MEDS: BISOPROLOL-HCTZ 5-6.25 MG 1 EACH TAB PO SCH (08:26)
[2023-05-24] MEDS: FERROUS SULFATE 325 MG TAB PO SCH (08:26)
[2023-05-24] MEDS: LACOSAMIDE 150 MG TABLET PO SCH ×2 (08:26→21:18)
[2023-05-24] MEDS: AZITHROMYCIN 500 MG TAB PO SCH (08:26)
[2023-05-24] MEDS: amLODIPine 2.5 MG TAB PO SCH ×2 (08:26→21:17)
[2023-05-24] MEDS: LACTULOSE 20 GM/30 ML CUP PO SCH ×3 (08:27→21:18)
[2023-05-24] MEDS: guaiFENesin 600 MG TABLET.ER PO PRN (08:29)
[2023-05-24 09:09] LABS: HCT 36.1 % (39.6-50.0); MCH 32.3 pg (27.0-32.0); MCHC 33.2 g/dL (32.0-37.0); Mean Platelet Volume 10.9 FL (9.5-12.2); NRBC Per 100 WBC 0 X 10*3/uL (0.00-0.01); Platelet Count 113 X 10*3/uL (140-440); RBC 3.72 X 10*6/uL (4.40-5.60); RDW 13.3 % (11.5-14.5)
[2023-05-24] MEDS: IPRATROPIUM-ALBUTEROL 3 ML NEB INHALATION SCH ×4 (09:12→20:52)
[2023-05-24] MEDS: SYMBICORT 160-4.5 MCG INHALER INHALATION SCH ×2 (09:12→20:52)
[2023-05-24 09:58] LABS: Basophils # (A) 0.02 X 10*3/uL (0.00-0.10); Basophils % (A) 0.3 %; Eosinophils # (A) 0.05 X 10*3/uL (0.04-0.35); Eosinophils % (A) 0.8 %; Lymphocytes % (A) 14.8 %; Monocytes # (A) 0.76 X 10*3/uL (0.20-1.00); Monocytes % (A) 12.5 %; Neutrophils # (A) 4.35 X 10*3/uL (1.80-7.70); Neutrophils % (A) 71.3 %; RBC Morphology Normal (Normal)
[2023-05-24 10:14] LABS: BUN/Creat Ratio 22.75 Ratio (12.00-20.00); Blood Urea Nitrogen 18.2 mg/dL (9.0-27.0); Calcium 9.3 mg/dL (8.7-10.3); Carbon Dioxide 25.8 mmol/L (21.6-31.8); Chloride 96 mmol/L (96-109); Glucose 78 mg/dL (70-110); Potassium 3.4 mmol/L (3.5-5.5); Sodium 135 mmol/L (135-145)
[2023-05-24 11:22] LABS: Glucose,Whole Blood 265 mg/dL (70-110)
--- NOTE | 2023-05-24 14:33 | P.PN ---
Subjective Progress Note Date: 05/24/23 62-year-old male patient with known history of COPD, presented to the hospital because of worsening shortness of breath. Increase call chest tightness and wheezing. Apparently was febrile and also home. No aspiration. No pleurisy. No hemoptysis. Not compliant with home oxygen therapy. Maintain on Symbicort regarding COPD along with albuterol neb treatments on an as-needed basis. No chest pain. No pleurisy. No hemoptysis. No altered mentation. Chest x-ray is showing limited basilar atelectasis. Computed tomography scan of the chest was also done and the patient was found to have no evidence of any pulmonary embolism. There was some bilateral bibasilar atelectatic change and some chron ic cirrhotic changes along the liver. The patient's previous history of hepatitis C that was treated. The patient has no risk of 10.3, hemoglobin 13.1, platelet count of 85, normal electrolytes, renal function is normal. UA is negative. The vital screening including influenza, RSV and Covid 19 oral negative. On today's evaluation of 05/23/2023, the patient is being treated for COPD exacerbation. He continues to have some congested cough and sputum sample will be collected. Remains on Zithromax.. No pleurisy. No hemoptysis. No chest pain. No other new complaints otherwise for now. The patient remains on bronchodilators. The patient is currently on oral prednisone. Home medications have been resumed. The patient is seen today 05/24/2023 in follow-up on the regular medical floor. He is currently resting comfortably in bed. Awake and alert in no acute distress. He is maintaining O2 saturation in the 90s on 5 L/m per nasal cannula. He is feeling better. He continues with some productive cough of rowe colored phlegm. He's completed azithromycin. White count 6.1. Hemoglobin 12.0. Platelet 32. Sodium 135. Potassium 3.4. Bicarb 26. BUN 18. Creatinine 0.8. Glucose 265. He's continued on Symbicort, DuoNeb inhalations, prednisone taper. Remains on Mucinex. Objective - Vital Signs Vital signs: Vital Signs Temp 98.7 F 05/24/23 07:19 Pulse 62 05/24/23 12:51 Resp 18 05/24/23 07:19 BP 121/66 05/24/23 07:19 Pulse Ox 93 L 05/24/23 09:12 FiO2 Intake & Output 05/23/23 05/24/23 05/24/23 18:59 06:59 18:59 Other: Voiding Method Urinal Urinal # Voids 5 3 - Exam GENERAL EXAM: Alert, pleasant 62-year-old male patient, poor historian, on 5 L NC nasal cannula, comfortable, communicating HEAD: Normocephalic. EYES: Normal reaction of pupils, equal size. NOSE: Clear with pink turbinates. THROAT: No erythema or exudates. NECK: No masses, no JVD. CHEST: No chest wall deformity. LUNGS: Equal air entry with few scattered rhonchi. CVS: S1 and S2 normal with no audible murmur, regular rhythm. ABDOMEN: No hepatosplenomegaly, normal bowel sounds, no guarding or rigidity. SPINE: No scoliosis or deformity SKIN: No rashes CENTRAL NERVOUS SYSTEM: No focal deficits, tone is normal in all 4 extremities. EXTREMITIES: There is no peripheral edema. No clubbing, no cyanosis. Peripheral pulses are intact. - Labs CBC & Chem 7: 05/24/23 05:48 05/24/23 05:48 Labs: Abnormal Lab Results - Last 24 Hours (Table) 05/23/23 05/23/23 05/24/23 Range/Units 16:08 19:18 05:48 RBC 3.72 L (4.40-5.60) X 10*6/uL Hgb 12.0 L (13.0-17.0) g/dL Hct 36.1 L (39.6-50.0) % MCH 32.3 H (27.0-32.0) pg Plt Count 113 L (140-440) X 10*3/uL Potassium (3.5-5.5) mmol/L Anion Gap (4.00-12.00) mmol/L BUN/Creatinine Ratio (12.00-20.00) Ratio POC Glucose (mg/dL) 278 H 311 H (70-110) mg/dL 05/24/23 05/24/23 Range/Units 05:48 11:21 RBC (4.40-5.60) X 10*6/uL Hgb (13.0-17.0) g/dL Hct (39.6-50.0) % MCH (27.0-32.0) pg Plt Count (140-440) X 10*3/uL Potassium 3.4 L (3.5-5.5) mmol/L Anion Gap 13.20 H (4.00-12.00) mmol/L BUN/Creatinine Ratio 22.75 H (12.00-20.00) Ratio POC Glucose (mg/dL) 265 H (70-110) mg/dL Microbiology - Last 24 Hours (Table) 05/23/23 11:00 Gram Stain - Preliminary Sputum Assessment and Plan Assessment: Acute hypoxemic respiratory failure and air to an acute exacerbation of chronic obstructive pulmonary disease, currently on 5 L of oxygen by nasal cannula Acute COPD exacerbation. Chest x-ray and the computed tomography scan of the chest x-ray; atelectatic change in lung bases. No clear indication for underlying pneumonia History of CVA History of seizure disorder Chronic neck and back pain with pain Former smoker Memory impairment Hypertension Diabetes mellitus, type II Hypertension History of hepatitis C with secondary liver cirrhosis Anxiety/depression Chronic thrombocytopenia Poor overall functional performance based on the above-mentioned multiple comorbidities Plan: The patient was seen and evaluated Currently on 5 L nasal cannula Titrate the FiO2 as tolerated Continue bronchodilators, steroids Completed antibiotics We'll continue to follow I have personally seen and examined the patient, performed the documentation and the assessment and plan as written. Number of minutes spent on the visit: 10.
--- NOTE | 2023-05-24 14:36 | P.PN ---
Subjective Progress Note Date: 05/24/23 This is a 62-year-old gentleman admitted with acute hypoxic respiratory failure secondary to acute COPD exacerbation and multiple other medical issues. Maintained on Zithromax, nebulized bronchodilators and prednisone taper, Symbicort,Mucinex. Maintaining O2 sats in the 90s on 5 L nasal cannula. T-max 99.7, normal WBC. Potassium 3.4, BUN 18.2, creatinine 0.8. Reporting productive cough with yellow sputum. Denies chest pain, palpitations or increased shortness of breath. Objective - Vital Signs Vital signs: Vital Signs Temp 98.7 F 05/24/23 07:19 Pulse 60 05/24/23 09:28 Resp 18 05/24/23 07:19 BP 121/66 05/24/23 07:19 Pulse Ox 93 L 05/24/23 09:12 FiO2 Intake & Output 05/23/23 05/24/23 05/24/23 18:59 06:59 18:59 Other: Voiding Method Urinal # Voids 5 3 - Exam General: Alert and oriented 3, sitting up in bed, in no acute distress Head: atraumatic normocephalic. Eyes PERRL, EOMI intact, mucous membranes moist Respiratory: Unlabored, equal air entry, scattered rhonchi Cardiovascular: Regular rate and rhythm Abdominal: Soft and nondistended, nontender,no guarding or rebound. Neuroogic: alert and oriented 3, CN II-XII intact, no focal deficits. Skin: warm dry and intact with normal color - Labs CBC & Chem 7: 05/24/23 05:48 05/24/23 05:48 Labs: Abnormal Lab Results - Last 24 Hours (Table) 05/23/23 05/23/23 05/23/23 Range/Units 11:05 16:08 19:18 RBC (4.40-5.60) X 10*6/uL Hgb (13.0-17.0) g/dL Hct (39.6-50.0) % MCH (27.0-32.0) pg Plt Count (140-440) X 10*3/uL Potassium (3.5-5.5) mmol/L Anion Gap (4.00-12.00) mmol/L BUN/Creatinine Ratio (12.00-20.00) Ratio POC Glucose (mg/dL) 235 H 278 H 311 H (70-110) mg/dL 05/24/23 05/24/23 Range/Units 05:48 05:48 RBC 3.72 L (4.40-5.60) X 10*6/uL Hgb 12.0 L (13.0-17.0) g/dL Hct 36.1 L (39.6-50.0) % MCH 32.3 H (27.0-32.0) pg Plt Count 113 L (140-440) X 10*3/uL Potassium 3.4 L (3.5-5.5) mmol/L Anion Gap 13.20 H (4.00-12.00) mmol/L BUN/Creatinine Ratio 22.75 H (12.00-20.00) Ratio POC Glucose (mg/dL) (70-110) mg/dL Microbiology - Last 24 Hours (Table) 05/23/23 11:00 Gram Stain - Preliminary Sputum Assessment and Plan Assessment: 1. Acute COPD exacerbation 2. Acute hypoxic respiratory failure secondary to the above. 3. Elevated d-dimer; ruled out PE - Computed tomography scan of the chest was also done and the patient was found to have no evidence of any pulmonary embolism. There was some bilateral bibasilar atelectatic change and some chronic cirrhotic changes along the liver. history of hepatitis C, treated. 4. Chronic Thrombocytopenia/ 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 5. Diabetes mellitus type 2 6. Hypertension 7. History of seizure disorder 8. History of CVA with memory impairment 9. Anxiety/depression 10. Former nicotine dependence 11. Chronic pain syndrome Hospital course: Continue on current medication regime ,monitoring and symptomatic treatment. Continue on Zithromax. Aggressive pulmonary toileting with incentive spirometer, nebulized bronchodilators, steroids. Sputum culture pending. Titrating oxygen as per parameters established by pulmonary, maintaining O2 sats greater than 90%. The impression and plan of care has been dictated as directed. : I performed a history and examination of this patient, discussed the same with the dictator. I agree with the dictator's note ,documented as a scribe. Any additional findings or plans will be noted.
[2023-05-24 17:15] LABS: Glucose,Whole Blood 254 mg/dL (70-110)
[2023-05-24] MEDS: POTASSIUM CHLORIDE ER 20 MEQ TAB.ER PO SCH ×2 (17:29→21:18)
[2023-05-24 20:31] LABS: Glucose,Whole Blood 289 mg/dL (70-110)
[2023-05-24] MEDS: PRIMIDONE 50 MG TAB PO SCH (21:18)
[2023-05-24] MEDS: CLOPIDOGREL 75 MG TAB PO SCH (21:18)
[2023-05-24] MEDS: ESCITALOPRAM 20 MG TAB PO SCH (21:18)
[2023-05-25] MEDS: ACETAMINOPHEN TAB 325 MG TAB PO PRN (04:50)
[2023-05-25] MEDS: guaiFENesin 600 MG TABLET.ER PO PRN (04:52)
[2023-05-25 05:23] LABS: Glucose,Whole Blood 137 mg/dL (70-110)
[2023-05-25] MEDS: INSULIN DETEMIR (LEVEMIR) 100 UNIT/ML SYR SQ SCH (06:26)
[2023-05-25] MEDS: INSULIN ASPART (NovoLOG) 100 UNIT/ML VIAL SQ SCH ×4 (06:58→20:22)
[2023-05-25] MEDS: LACTULOSE 20 GM/30 ML CUP PO SCH ×3 (08:43→20:22)
[2023-05-25] MEDS: LACOSAMIDE 50 MG TABLET PO SCH ×2 (08:43→20:22)
[2023-05-25] MEDS: BISOPROLOL-HCTZ 5-6.25 MG 1 EACH TAB PO SCH (08:43)
[2023-05-25] MEDS: LACOSAMIDE 150 MG TABLET PO SCH ×2 (08:43→20:22)
[2023-05-25] MEDS: predniSONE 20 MG TAB PO SCH (08:43)
[2023-05-25] MEDS: FERROUS SULFATE 325 MG TAB PO SCH (08:43)
[2023-05-25] MEDS: amLODIPine 2.5 MG TAB PO SCH ×2 (08:43→20:22)
[2023-05-25] MEDS: IPRATROPIUM-ALBUTEROL 3 ML NEB INHALATION SCH ×4 (09:39→21:07)
[2023-05-25] MEDS: SYMBICORT 160-4.5 MCG INHALER INHALATION SCH ×2 (09:39→21:07)
[2023-05-25 11:31] LABS: Glucose,Whole Blood 194 mg/dL (70-110)
--- NOTE | 2023-05-25 13:57 | XR ---
EXAMINATION TYPE: XR shoulder complete LT DATE OF EXAM: 05/25/2023 COMPARISON: NONE HISTORY: Pain. TECHNIQUE: Three views are submitted. FINDINGS: The osseous structures are intact. There is no acute fracture or dislocation. The AC joint is maint ained. Diffuse osteopenia with moderate AC joint arthropathy. Mild lateral humeral joint arthropathy visuali zed rib cage is intact. Lung abrajas are clear. Remote left-sided rib fracture. IMPRESSION: 1. Moderate AC joint arthropathy.
--- NOTE | 2023-05-25 14:24 | P.PN ---
Subjective Progress Note Date: 05/25/23 62-year-old male patient with known history of COPD, presented to the hospital because of worsening shortness of breath. Increase call chest tightness and wheezing. Apparently was febrile and also home. No aspiration. No pleurisy. No hemoptysis. Not compliant with home oxygen therapy. Maintain on Symbicort regarding COPD along with albuterol neb treatments on an as-needed basis. No chest pain. No pleurisy. No hemoptysis. No altered mentation. Chest x-ray is showing limited basilar atelectasis. Computed tomography scan of the chest was also done and the patient was found to have no evidence of any pulmonary embolism. There was some bilateral bibasilar atelectatic change and some chron ic cirrhotic changes along the liver. The patient's previous history of hepatitis C that was treated. The patient has no risk of 10.3, hemoglobin 13.1, platelet count of 85, normal electrolytes, renal function is normal. UA is negative. The vital screening including influenza, RSV and Covid 19 oral negative. On today's evaluation of 05/23/2023, the patient is being treated for COPD exacerbation. He continues to have some congested cough and sputum sample will be collected. Remains on Zithromax.. No pleurisy. No hemoptysis. No chest pain. No other new complaints otherwise for now. The patient remains on bronchodilators. The patient is currently on oral prednisone. Home medications have been resumed. The patient is seen today 05/24/2023 in follow-up on the regular medical floor. He is currently resting comfortably in bed. Awake and alert in no acute distress. He is maintaining O2 saturation in the 90s on 5 L/m per nasal cannula. He is feeling better. He continues with some productive cough of rowe colored phlegm. He's completed azithromycin. White count 6.1. Hemoglobin 12.0. Platelet 32. Sodium 135. Potassium 3.4. Bicarb 26. BUN 18. Creatinine 0.8. Glucose 265. He's continued on Symbicort, DuoNeb inhalations, prednisone taper. Remains on Mucinex. The patient is seen today 05/25/2023 in follow-up on the regular medical floor. He is awake and alert in no acute distress. Feeling a bit better today compared to yesterday. He is maintaining O2 saturations in the 90s on 2 L/m per nasal cannula. He is up with a walker but requires assistance 2. He was having some left-sided shoulder pain. Chest x-ray reveals moderate AC joint arthropathy but no fracture. Lung barajas are clear. Remote left-sided rib fracture. Sputum culture is revealing presumptive staph aureus. Glucose 137. He is continued on DuoNeb inhalations, Symbicort, prednisone taper. Objective - Vital Signs Vital signs: Vital Signs Temp 98.8 F 05/25/23 07:27 Pulse 64 05/25/23 13:23 Resp 18 05/25/23 08:00 BP 125/69 05/25/23 07:27 Pulse Ox 97 05/25/23 09:39 FiO2 Intake & Output 05/24/23 05/25/23 05/25/23 18:59 06:59 18:59 Output Total 800 Balance -800 Output: Urine 800 Other: Voiding Method Urinal # Voids 1 - Exam GENERAL EXAM: Alert, 62-year-old male patient, poor historian, on 2 L NC nasal c annula, comfortable, communicating HEAD: Normocephalic. EYES: Normal reaction of pupils, equal size. NOSE: Clear with pink turbinates. THROAT: No erythema or exudates. NECK: No masses, no JVD. CHEST: No chest wall deformity. LUNGS: Equal air entry with few scattered rhonchi. CVS: S1 and S2 normal with no audible murmur, regular rhythm. ABDOMEN: No hepatosplenomegaly, normal bowel sounds, no guarding or rigidity. SPINE: No scoliosis or deformity SKIN: No rashes CENTRAL NERVOUS SYSTEM: No focal deficits, tone is normal in all 4 extremities. EXTREMITIES: There is no peripheral edema. No clubbing, no cyanosis. Peripheral pulses are intact. - Labs CBC & Chem 7: 05/24/23 05:48 05/24/23 05:48 Labs: Abnormal Lab Results - Last 24 Hours (Table) 05/24/23 05/24/23 05/25/23 Range/Units 17:02 20:27 05:22 POC Glucose (mg/dL) 254 H 289 H 137 H (70-110) mg/dL 05/25/23 Range/Units 11:29 POC Glucose (mg/dL) 194 H (70-110) mg/dL Microbiology - Last 24 Hours (Table) 05/23/23 11:00 Gram Stain - Preliminary Sputum Sputum Culture - Preliminary Presumptive Staph aureus Assessment and Plan Assessment: Acute hypoxemic respiratory failure and air to an acute exacerbation of chronic obstructive pulmonary disease, sputum showing presumptive staph aureus Acute COPD exacerbation. Chest x-ray and the computed tomography scan of the chest x-ray; atelectatic change in lung bases. No clear indication for underlying pneumonia History of CVA History of seizure disorder Chronic neck and back pain Former smoker Memory impairment Hypertension Diabetes mellitus, type II Hypertension History of hepatitis C with secondary liver cirrhosis Anxiety/depression Chronic thrombocytopenia Poor overall functional performance based on the above-mentioned multiple comorbidities Plan: The patient was seen and evaluated Shoulder x-ray, labs and medications reviewed Sputum culture showing presumptive staph aureus Add cefazolin for now, await final culture Titrate the FiO2 as tolerated Continue bronchodilators, steroids We will continue to follow I have personally seen and examined the patient, performed the documentation and the assessment and plan as written. Number of minutes spent on the visit: 10.
[2023-05-25] MEDS ORDERED: Potassium Replacement Protocol 1 EACH MISC MISCELLANE PRN (15:34)
--- NOTE | 2023-05-25 15:50 | P.PN ---
Subjective Progress Note Date: 05/25/23 This is a 62-year-old gentleman admitted with acute hypoxic respiratory failure secondary to acute COPD exacerbation and multiple other medical issues. Maintained on Zithromax, nebulized bronchodilators and prednisone taper, Symbicort,Mucinex. Maintaining O2 sats in the 90s on 5 L nasal cannula. T-max 99.7, normal WBC. Potassium 3.4, BUN 18.2, creatinine 0.8. Reporting productive cough with yellow sputum. Denies chest pain, palpitations or increased shortness of breath. 05/25/2023 complaints of new onset left shoulder pain, x-ray ordered. Has a pain pump. Maintained on Symbicort, prednisone, nebulized bronchodilators .Continues to have a loose productive congested cough, feels less short of breath, O2 weaned down to 2 L maintaining O2 sats in the 90s. Preliminary Sputum culture reporting presumptive staph aureus, on Cefazolin. Blood sugars 130s to 190s. Objective - Vital Signs Vital signs: Vital Signs Temp 98.8 F 05/25/23 07:27 Pulse 64 05/25/23 13:23 Resp 18 05/25/23 08:00 BP 125/69 05/25/23 07:27 Pulse Ox 97 05/25/23 09:39 FiO2 Intake & Output 05/24/23 05/25/23 05/25/23 18:59 06:59 18:59 Output Total 800 Balance -800 Output: Urine 800 Other: Voiding Method Urinal # Voids 1 - Exam General: Alert and oriented 3, sitting up in bed, in no acute distress Head: atraumatic normocephalic. Eyes PERRL, EOMI intact, mucous membranes moist Respiratory: Unlabored, equal air entry, scattered rhonchi Cardiovascular: Regular rate and rhythm Abdominal: Soft and nondistended, nontender,no guarding or rebound. Neuroogic: CN II-XII intact, no focal deficits. Skin: warm dry and intact with normal color - Labs CBC & Chem 7: 05/24/23 05:48 05/24/23 05:48 Labs: Abnormal Lab Results - Last 24 Hours (Table) 05/24/23 05/24/23 05/25/23 Range/Units 17:02 20:27 05:22 POC Glucose (mg/dL) 254 H 289 H 137 H (70-110) mg/dL 05/25/23 Range/Units 11:29 POC Glucose (mg/dL) 194 H (70-110) mg/dL Microbiology - Last 24 Hours (Table) 05/23/23 11:00 Gram Stain - Preliminary Sputum Sputum Culture - Preliminary Presumptive Staph aureus Assessment and Plan Assessment: 1. Acute COPD exacerbation, preliminary sputum culture reporting presumptive staph aureus 2. Acute hypoxic respiratory failure secondary to the above. 3. Elevated d-dimer; ruled out PE - Computed tomography scan of the chest was also done and the patient was found to have no evidence of any pulmonary embolism. There was some bilateral bibasilar atelectatic change and some chronic cirrhotic changes along the liver. history of hepatitis C, treated. 4. Chronic Thrombocytopenia/ 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 5. Diabetes mellitus type 2 6. Hypertension 7. History of seizure disorder 8. History of CVA with memory impairment 9. Anxiety/depression 10. Former nicotine dependence 11. Chronic pain syndrome Hospital course: Continue on current medication regime ,monitoring and symptomatic treatment. Shoulder x-ray ordered. Repeat potassium level ordered with replacement protocol. Cefazolin added while sputum culture finalizing. Aggressive pulmonary toileting with incentive spirometer, nebulized bronchodilators, steroids. Continue titrating oxygen as per parameters established by pulmonary, maintaining O2 sats greater than 90%. Requires 2 person assist, uses walker, dependent on spouse for most of his ADLs. Recently left [facility] after 45 days, on April 21, with no more rehab days at this time per case management. Discharge planning in progress for discharge home with home care possibly tomorrow . Prognosis guarded given multiple complex medical issues. The impression and plan of care has been dictated as directed. : I performed a history and examination of this patient, discussed the same with the dictator. I agree with the dictator's note ,documented as a scribe. Any additional findings or plans will be noted.
[2023-05-25 16:39] LABS: Glucose,Whole Blood 305 mg/dL (70-110)
[2023-05-25 20:15] LABS: Glucose,Whole Blood 277 mg/dL (70-110)
[2023-05-25] MEDS: CLOPIDOGREL 75 MG TAB PO SCH (20:21)
[2023-05-25] MEDS: ESCITALOPRAM 20 MG TAB PO SCH (20:21)
[2023-05-25] MEDS: PRIMIDONE 50 MG TAB PO SCH (20:22)
[2023-05-26] MEDS: ACETAMINOPHEN TAB 325 MG TAB PO PRN (05:47)
[2023-05-26 05:56] LABS: Glucose,Whole Blood 123 mg/dL (70-110)
[2023-05-26] MEDS: INSULIN ASPART (NovoLOG) 100 UNIT/ML VIAL SQ SCH (06:27)
[2023-05-26] MEDS: INSULIN DETEMIR (LEVEMIR) 100 UNIT/ML SYR SQ SCH (06:36)
[2023-05-26 07:38] VITALS: BP 155/68; RESP 20; TEMP 97.9
[2023-05-26] MEDS: amLODIPine 2.5 MG TAB PO SCH (07:43)
[2023-05-26] MEDS: predniSONE 20 MG TAB PO SCH (07:43)
[2023-05-26] MEDS: FERROUS SULFATE 325 MG TAB PO SCH (07:43)
[2023-05-26] MEDS: guaiFENesin 600 MG TABLET.ER PO PRN (07:43)
[2023-05-26] MEDS: LACTULOSE 20 GM/30 ML CUP PO SCH (07:44)
[2023-05-26] MEDS: BISOPROLOL-HCTZ 5-6.25 MG 1 EACH TAB PO SCH (07:44)
[2023-05-26] MEDS: LACOSAMIDE 50 MG TABLET PO SCH (07:44)
[2023-05-26] MEDS: LACOSAMIDE 150 MG TABLET PO SCH (07:44)
[2023-05-26] MEDS: IPRATROPIUM-ALBUTEROL 3 ML NEB INHALATION SCH (09:35)
[2023-05-26] MEDS: SYMBICORT 160-4.5 MCG INHALER INHALATION SCH (09:35)
[2023-05-26 09:47] VITALS: PULSE 68
--- NOTE | 2023-05-26 13:17 | P.PN ---
Subjective Progress Note Date: 05/26/23 62-year-old male patient with known history of COPD, presented to the hospital because of worsening shortness of breath. Increase call chest tightness and wheezing. Apparently was febrile and also home. No aspiration. No pleurisy. No hemoptysis. Not compliant with home oxygen therapy. Maintain on Symbicort regarding COPD along with albuterol neb treatments on an as-needed basis. No chest pain. No pleurisy. No hemoptysis. No altered mentation. Chest x-ray is showing limited basilar atelectasis. Computed tomography scan of the chest was also done and the patient was found to have no evidence of any pulmonary embolism. There was some bilateral bibasilar atelectatic change and some chron ic cirrhotic changes along the liver. The patient's previous history of hepatitis C that was treated. The patient has no risk of 10.3, hemoglobin 13.1, platelet count of 85, normal electrolytes, renal function is normal. UA is negative. The vital screening including influenza, RSV and Covid 19 oral negative. On today's evaluation of 05/23/2023, the patient is being treated for COPD exacerbation. He continues to have some congested cough and sputum sample will be collected. Remains on Zithromax.. No pleurisy. No hemoptysis. No chest pain. No other new complaints otherwise for now. The patient remains on bronchodilators. The patient is currently on oral prednisone. Home medications have been resumed. The patient is seen today 05/24/2023 in follow-up on the regular medical floor. He is currently resting comfortably in bed. Awake and alert in no acute distress. He is maintaining O2 saturation in the 90s on 5 L/m per nasal cannula. He is feeling better. He continues with some productive cough of rowe colored phlegm. He's completed azithromycin. White count 6.1. Hemoglobin 12.0. Platelet 32. Sodium 135. Potassium 3.4. Bicarb 26. BUN 18. Creatinine 0.8. Glucose 265. He's continued on Symbicort, DuoNeb inhalations, prednisone taper. Remains on Mucinex. The patient is seen today 05/25/2023 in follow-up on the regular medical floor. He is awake and alert in no acute distress. Feeling a bit better today compared to yesterday. He is maintaining O2 saturations in the 90s on 2 L/m per nasal cannula. He is up with a walker but requires assistance 2. He was having some left-sided shoulder pain. Chest x-ray reveals moderate AC joint arthropathy but no fracture. Lung barajas are clear. Remote left-sided rib fracture. Sputum culture is revealing presumptive staph aureus. Glucose 137. He is continued on DuoNeb inhalations, Symbicort, prednisone taper. The patient is seen today 05/26/2023 in follow-up on the regular medical floor. He is awake and alert. Resting comfortably in bed. Denies any worsening shortness of breath, cough or congestion. Maintaining good O2 saturations in the 90s on 2 L/m per nasal cannula. Sputum positive for methicillin sensitive Staphylococcus aureus. Glucose 123. He remains on cefazolin. Continued on Sy mbicort, DuoNeb inhalations, prednisone taper. Objective - Vital Signs Vital signs: Vital Signs Temp 97.9 F 05/26/23 07:34 Pulse 68 05/26/23 09:44 Resp 20 05/26/23 07:34 BP 155/68 05/26/23 07:34 Pulse Ox 87 L 05/26/23 09:37 FiO2 Intake & Output 05/25/23 05/26/23 05/26/23 18:59 06:59 18:59 Intake Total 50 Balance 50 Intake: Intake, IV Titration 50 Amount ceFAZolin 2 gm In Sodium 50 Chloride 0.9% 50 ml @ 100 mls/hr IVPB Q8HR [facility] Rx# :[id number] Other: Voiding Method Urinal # Voids 5 - Exam GENERAL EXAM: Alert, 62-year-old male, resting comfortably in bed, on 2 L NC nasal cannula. HEAD: Normocephalic. EYES: Normal reaction of pupils, equal size. NOSE: Clear with pink turbinates. THROAT: No erythema or exudates. NECK: No masses, no JVD. CHEST: No chest wall deformity. LUNGS: Equal air entry with few scattered rhonchi. CVS: S1 and S2 normal with no audible murmur, regular rhythm. ABDOMEN: No hepatosplenomegaly, normal bowel sounds, no guarding or rigidity. SPINE: No scoliosis or deformity SKIN: No rashes CENTRAL NERVOUS SYSTEM: No focal deficits, tone is normal in all 4 extremities. EXTREMITIES: There is no peripheral edema. No clubbing, no cyanosis. Peripheral pulses are intact. - Labs CBC & Chem 7: 05/24/23 05:48 05/25/23 16:09 Labs: Abnormal Lab Results - Last 24 Hours (Table) 05/25/23 05/25/23 05/26/23 Range/Units 16:37 20:11 05:53 POC Glucose (mg/dL) 305 H 277 H 123 H (70-110) mg/dL Microbiology - Last 24 Hours (Table) 05/23/23 11:00 Gram Stain - Final Sputum Sputum Culture - Final Staphylococcus aureus Assessment and Plan Assessment: Acute hypoxemic respiratory failure and air to an acute exacerbation of chronic obstructive pulmonary disease, sputum showing methicillin sensitive staph aureus. Currently on cefazolin Acute COPD exacerbation. Chest x-ray and the computed tomography scan of the chest x-ray; atelectatic change in lung bases. No clear indication for underlying pneumonia History of CVA History of seizure disorder Chronic neck and back pain Former smoker Memory impairment Hypertension Diabetes mellitus, type II Hypertension History of hepatitis C with secondary liver cirrhosis Anxiety/depression Chronic thrombocytopenia Poor overall functional performance based on the above-mentioned multiple comorbidities Plan: The patient was seen and evaluated Medications and labs reviewed Cleared for discharge from the pulmonary standpoint Plan is for home with home care Continue his home medications, oxygen Continue a prednisone taper Complete a course of antibiotics Follow-up in the office in 1 week I have personally seen and examined the patient, performed the documentation and the assessment and plan as written. Number of minutes spent on the visit: 10.
--- NOTE | 2023-05-26 15:05 | P.DS ---
Providers Date of admission: 05/22/23 07:08 Expected date of discharge: 05/26/23 Attending physician: Dmitriy Liu MD Consults: 05/22/23 07:10 Consult Physician Routine Consulting Provider: Kenia Klein Consult Reason/Comments: COPD exacerbation Do you want consulting provider notified?: Yes Primary care physician: Dmitriy Liu MD Hospital Course: Final Diagnoses: 1. Acute COPD exacerbation, preliminary sputum culture reporting presumptive staph aureus 2. Acute hypoxic respiratory failure secondary to the above. 3. Elevated d-dimer; ruled out PE - Computed tomography scan of the chest was also done and the patient was found to have no evidence of any pulmonary embolism. There was some bilateral bibasilar atelectatic change and some chronic cirrhotic changes along the liver. history of hepatitis C, treated. 4. Chronic Thrombocytopenia/ 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 5. Diabetes mellitus type 2 6. Hypertension 7. History of seizure disorder 8. History of CVA with memory impairment 9. Anxiety/depression 10. Former nicotine dependence 11. Chronic pain syndrome Hospital Course:This is a 62-year-old gentleman admitted with acute hypoxic respiratory failure secondary to acute COPD exacerbation and multiple other medical issues. Maintained on Zithromax, nebulized bronchodilators and prednisone taper, Symbicort,Mucinex. Maintaining O2 sats in the 90s on 5 L nasal cannula. T-max 99.7, normal WBC. Potassium 3.4, BUN 18.2, creatinine 0.8. Reporting productive cough with yellow sputum. Denies chest pain, palpitations or increased shortness of breath. 05/25/2023 complaints of new onset left shoulder pain, x-ray ordered. Has a pain pump. Maintained on Symbicort, prednisone, nebulized bronchodilators .Continues to have a loose productive congested cough, feels less short of breath, O2 weaned down to 2 L maintaining O2 sats in the 90s. Preliminary Sputum culture reporting presumptive staph aureus, on Cefazolin. Blood sugars 130s to 190s. Significant clinical improvement. Currently maintaining O2 sat of 100% on room air. Good diet intake with no nausea vomiting or diarrhea. Reports less productive cough of yellow sputum. Denies chest pain, palpitations or shortness of breath. Left shoulder x-ray reported arthritis. Discussed potential steroid injection in office.Requires 2 person assist, uses walker, dependent on spouse for most of his ADLs. Recently left [facility] after 45 days, on April 21, with no more rehab days at this time per case management. Private pay for subacute rehab option offered. Declined. Patient will be discharged home with home care via wheelchair van, today in a stable condition with guarded prognosis, pending final DC recommendations including antibiotics and clearance per pulmonary. The impression and plan of care has been dictated as directed. : I performed a history and examination of this patient, discussed the same with the dictator. I agree with the dictator's note ,documented as a scribe. Any additional findings or plans will be noted. Patient Condition at Discharge: Stable Plan - Discharge Summary Discharge Rx Participant: No New Discharge Prescriptions: New guaiFENesin [Mucinex] 600 mg PO Q12HR PRN tab PRN Reason: Congestion predniSONE 10 mg PO DIRECTED #30 tab polyethylene glycoL 3350 [Miralax] 17 gm PO DAILY #1 packet Pantoprazole Sodium [Protonix] 40 mg PO DAILY #30 tab Bisoprolol-Hctz 5-6.25 mg [Ziac 5-6.25 MG] 1 each PO DAILY #30 tab Cephalexin [Keflex] 500 mg PO Q8HR 7 Days #21 cap Continue Albuterol Sulfate [Proair Hfa] 2 puff INHALATION RT-QID PRN PRN Reason: Shortness Of Breath Ferrous Sulfate [Iron (65 MG Elemental)] 325 mg PO DAILY Primidone [Mysoline] 50 mg PO HS amLODIPine BESYLATE 2.5 mg PO BID Acetaminophen Tab [Tylenol] 325 mg PO Q6HR PRN tab PRN Reason: Fever And/ Or Pain Lacosamide [Vimpat] 200 mg PO BID #6 tab INSULIN LISPRO (HumaLOG) [humaLOG] See Protocol SQ ACHS Budesonide-Formot 160-4.5 Mcg [Symbicort 160-4.5 Mcg Inhaler] 2 puff INHALATION RT-BID Clopidogrel [Plavix] 75 mg PO HS Escitalopram [Lexapro] 20 mg PO HS Rosuvastatin Calcium [Crestor] 40 mg PO HS Aspirin EC [Ecotrin Low Dose] 81 mg PO DAILY Multivitamins, Thera [Multivitamin (formulary)] 1 tab PO DAILY Ipratropium-Albuterol Nebulize [Duoneb 0.5 mg-3 mg/3 ml Soln] 3 ml INHALATION RT-QID #0 each Changed Insulin Detemir [Levemir Flexpen] 65 units SQ DAILY #0 Discharge Medication List Albuterol Sulfate [Proair Hfa] 2 puff INHALATION RT-QID PRN 10/22/20 [History] Budesonide-Formot 160-4.5 Mcg [Symbicort 160-4.5 Mcg Inhaler] 2 puff INHALATION RT-BID 10/22/20 [History] Ferrous Sulfate [Iron (65 MG Elemental)] 325 mg PO DAILY 12/10/20 [History] Clopidogrel [Plavix] 75 mg PO HS 06/30/21 [History] Primidone [Mysoline] 50 mg PO HS 06/30/21 [History] Escitalopram [Lexapro] 20 mg PO HS 02/23/23 [History] Rosuvastatin Calcium [Crestor] 40 mg PO HS 03/14/23 [History] amLODIPine BESYLATE 2.5 mg PO BID 03/14/23 [History] Acetaminophen Tab [Tylenol] 325 mg PO Q6HR PRN tab 03/16/23 [Rx] Lacosamide [Vimpat] 200 mg PO BID #6 tab 03/16/23 [Rx] Aspirin EC [Ecotrin Low Dose] 81 mg PO DAILY 05/22/23 [History] INSULIN LISPRO (HumaLOG) [humaLOG] See Protocol SQ ACHS 05/22/23 [History] Multivitamins, Thera [Multivitamin (formulary)] 1 tab PO DAILY 05/22/23 [History] Bisoprolol-Hctz 5-6.25 mg [Ziac 5-6.25 MG] 1 each PO DAILY #30 tab 05/26/23 [Rx] Cephalexin [Keflex] 500 mg PO Q8HR 7 Days #21 cap 05/26/23 [Rx] Insulin Detemir [Levemir Flexpen] 65 units SQ DAILY #0 05/26/23 [Rx] Ipratropium-Albuterol Nebulize [Duoneb 0.5 mg-3 mg/3 ml Soln] 3 ml INHALATION RT-QID #0 each 05/26/23 [Rx] Pantoprazole Sodium [Protonix] 40 mg PO DAILY #30 tab 05/26/23 [Rx] guaiFENesin [Mucinex] 600 mg PO Q12HR PRN tab 05/26/23 [Rx] polyethylene glycoL 3350 [Miralax] 17 gm PO DAILY #1 packet 05/26/23 [Rx] predniSONE 10 mg PO DIRECTED #30 tab 05/26/23 [Rx] Follow up Appointment(s)/Referral(s): [facility] [facility] [NON-STAFF] - As Needed (Call to inquire about a wedge for patient.) Dmitriy Liu MD [Primary Care Provider] - 1-[address],[place] [NON-STAFF] - As Needed (Call to inquire about a wedge for patient. ) Patient Instructions/Handouts: COPD (Chronic Obstructive Pulmonary Disease) (GEN) Activity/Diet/Wound Care/Special Instructions: MiraLAX daily,OTC Discharge Disposition: HOME WITH HOME HEALTH SERVICES
== END 2023-05-26 11:22 | disposition home health service (06) | DRG 140 ==
LOC: EC 01:04 → OBSVTOIN 07:08 → 4SSUR 07:08
PROVIDERS: ADMIT Family Medicine; ATTEND Family Medicine
DX: J44.1 Chronic obstructive pulmonary disease with (acute) exacerbation (principal); J96.01 Acute respiratory failure with hypoxia; K74.69 Other cirrhosis of liver; D69.59 Other secondary thrombocytopenia; E11.65 Type 2 diabetes mellitus with hyperglycemia; G40.909 Epilepsy, unspecified, not intractable, without status epilepticus; I10 Essential (primary) hypertension; F32.A Depression, unspecified; B95.61 Methicillin susceptible Staphylococcus aureus infection as the cause of diseases classified elsewhere; E78.5 Hyperlipidemia, unspecified; F41.9 Anxiety disorder, unspecified; G89.4 Chronic pain syndrome; M19.012 Primary osteoarthritis, left shoulder; M54.2 Cervicalgia; R79.89 Other specified abnormal findings of blood chemistry; Z79.4 Long term (current) use of insulin; I69.311 Memory deficit following cerebral infarction; I25.2 Old myocardial infarction; Z87.11 Personal history of peptic ulcer disease; Z87.891 Personal history of nicotine dependence; Z11.52 Encounter for screening for COVID-19; Z79.82 Long term (current) use of aspirin; Z79.51 Long term (current) use of inhaled steroids; Z79.02 Long term (current) use of antithrombotics/antiplatelets; Z86.19 Personal history of other infectious and parasitic diseases; Z79.899 Other long term (current) drug therapy; Z87.81 Personal history of (healed) traumatic fracture
CPT/HCPCS: 36415; 71046; 71275; 80048; 80053; 81003; 83036; 83605; 83880; 84132; 84484; 85025; 85379; 87070; 87077; 87186; 87205; 87636; 93005; 94640; 94760; 99285

== ENCOUNTER 2023-06-15 16:00 | Emergency (ER) | payer OTHER ==
[2023-06-15] MEDS ORDERED: LORazepam 2 MG/ML INJ IV STA (16:14)
[2023-06-15 16:29] LABS: HCT 38.5 % (39.0-53.0); HGB 13.1 gm/dL (13.0-17.5); MCH 33.6 pg (25.0-35.0); MCHC 34.1 g/dL (31.0-37.0); MCV 98.4 fL (80.0-100.0); Mean Platelet Volume 7.6; RBC 3.91 m/uL (4.30-5.90); RDW 14.1 % (11.5-15.5); WBC 6.5 k/uL (3.8-10.6)
--- NOTE | 2023-06-15 16:31 | ED ---
Recheck HPI - General Chief Complaint: Recheck/Abnormal Lab/Rx Stated Complaint: bradycardia Time Seen by Provider: 06/15/23 16:09 Source: patient, RN notes reviewed Mode of arrival: EMS Limitations: no limitations - History of Present Illness Initial Comments: Patient is a 62-year-old male presented ER via EMS with chief complaint of bradycardia. Patient states his home health care nurse was visiting and sent him to the ER due to bradycardia. Patient denies any current symptoms. Denies any new medications. Patient does have a history of an MA and COPD. Patient denies any chest pain, shortness of breath, palpitations, headaches, double blurred vision, dizziness, fevers, chills, night sweats, abdominal pain, peripheral edema. - Related Data Home Medications Medication Instructions Recorded Confirmed Albuterol Sulfate [Proair Hfa] 2 puff INHALATION RT-QID PRN 10/22/20 06/15/23 Budesonide-Formot 160-4.5 Mcg 2 puff INHALATION RT-BID 10/22/20 06/15/23 [Symbicort 160-4.5 Mcg Inhaler] Ferrous Sulfate [Iron (65 MG 325 mg PO DAILY 12/10/20 06/15/23 Elemental)] Clopidogrel [Plavix] 75 mg PO HS 06/30/21 06/15/23 Primidone [Mysoline] 50 mg PO HS 06/30/21 06/15/23 Escitalopram [Lexapro] 20 mg PO HS 02/23/23 06/15/23 Rosuvastatin Calcium [Crestor] 40 mg PO HS 03/14/23 06/15/23 amLODIPine BESYLATE 2.5 mg PO BID 03/14/23 06/15/23 Aspirin EC [Ecotrin Low Dose] 81 mg PO DAILY 05/22/23 06/15/23 INSULIN LISPRO (HumaLOG) [humaLOG] See Protocol SQ ACHS 05/22/23 06/15/23 Multivitamins, Thera [Multivitamin 1 tab PO DAILY 05/22/23 06/15/23 (formulary)] Bisoprolol-Hctz 5-6.25 mg [Ziac 1 tab PO DAILY 06/15/23 06/15/23 5-6.25 MG] Insulin Detemir [Levemir Flexpen] 48 units SQ DAILY 06/15/23 06/15/23 Previous Rx's Medication Instructions Recorded Acetaminophen Tab [Tylenol] 325 mg PO Q6HR PRN tab 03/16/23 Lacosamide [Vimpat] 200 mg PO BID #6 tab 03/16/23 Ipratropium-Albuterol Nebulize 3 ml INHALATION RT-QID #0 each 05/26/23 [Duoneb 0.5 mg-3 mg/3 ml Soln] Pantoprazole Sodium [Protonix] 40 mg PO DAILY #30 tab 05/26/23 Allergies Allergy/AdvReac Type Severity Reaction Status Date / Time morphine AdvReac Nausea & Verified 06/15/23 19:33 Vomiting Review of Systems ROS Statement: Those systems with pertinent positive or pertinent negative responses have been documented in the HPI. ROS Other: All systems not noted in ROS Statement are negative. Past Medical History Past Medical History: COPD, CVA/TIA, Diabetes Mellitus, Hyperlipidemia, Hypertension, Memory Impairment, Myocardial Infarction (MA), Prostate Disorder, Seizure Disorder, Skin Disorder Additional Past Medical History / Comment(s): duodenal ulcer, pain and numbness cyrus legs and feet,pain pump in back, anemia. TIA X3, HEPATITIS C PAST HISTORY, LAST SEIZURE 2012,hiatal hernia Last Myocardial Infarction Date:: POSSIBLE MA 2012 History of Any Multi-Drug Resistant Organisms: None Reported Past Surgical History: Appendectomy, Back Surgery, Heart Catheterization, Orthopedic Surgery Additional Past Surgical History / Comment(s): titanium lyn in lt leg, skin graph to rt 1st and middle finger, lt eardum replaced, cyrus. foot surgery to arch, cataract surgery bilateral with implant,skin graft left leg Past Anesthesia/Blood Transfusion Reactions: No Reported Reaction Past Psychological History: Anxiety, Depression Smoking Status: Former smoker Past Alcohol Use History: None Reported Past Drug Use History: None Reported - Past Family History Mother Family Medical History: Diabetes Mellitus, Pulmonary Embolus Father Additional Family Medical History / Comment(s): Father had pain problems/hallucinations. He committed suicide. General Exam Limitations: no limitations General appearance: alert, in no apparent distress, anxious Head exam: Present: atraumatic, normocephalic, normal inspection Respiratory exam: Present: normal lung sounds bilaterally. Absent: respiratory distress, wheezes, rales, rhonchi, stridor Cardiovascular Exam: Present: normal rhythm, bradycardia, normal heart sounds GI/Abdominal exam: Present: soft, normal bowel sounds. Absent: distended, tenderness, guarding, rebound, rigid Neurological exam: Present: alert, oriented X3, CN II-XII intact Psychiatric exam: Present: normal affect, normal mood, anxious (Patient is crying on exam due to anxiety) Skin exam: Present: warm, dry, intact, normal color. Absent: rash Course Vital Signs 06/15/23 06/15/23 06/15/23 16:02 17:01 22:11 Temperature 98.4 F 98.1 F Pulse Rate 54 L 51 L 53 L Respiratory 18 16 18 Rate Blood Pressure 168/79 168/79 154/95 O2 Sat by Pulse 97 96 Oximetry Medical Decision Making - Medical Decision Making Was pt. sent in by a medical professional or institution (, PA, SLURRY BLENDER, urgent care, hospital, or group home...) When possible be specific @ -No Did you speak to anyone other than the patient for history (EMS, parent, family, police, friend...)? What history was obtained from this source @ -No Did you review nursing and triage notes (agree or disagree)? Why? @ -I reviewed and agree with nursing and triage notes Were old charts reviewed (outside hosp., previous admission, EMS record, old EKG, old radiological studies, urgent care reports/EKG's, group home records)? Report findings @ -No old charts were reviewed Differential Diagnosis (chest pain, altered mental status, abdominal pain women, abdominal pain men, vaginal bleeding, weakness, fever, dyspnea, syncope, headache, dizziness, GI bleed, back pain, seizure, CVA, palpatations, mental health, musculoskeletal)? @ -Differential Palpitations: Ventricular arrhythmias, atrial arrhythmias, myocardial infarction, anemia, thyrotoxicosis, electrolyte imbalance, hypokalemia, pulmonary embolism, pulmonary disease, drugs, alcohol, anxiety, stress....This is not meant to be an all-inclusive list. EKG interpreted by me (3pts min.). @ -As above X-rays interpreted by me (1pt min.). @ -Chest x-ray showed low lung volumes with generalized hazy appearing.. Unchanged from previous. CT interpreted by me (1pt min.). @ -None done U/S interpreted by me (1pt. min.). @ -None done What testing was considered but not performed or refused? (CT, X-rays, U/S, labs)? Why? @ -None What meds were considered but not given or refused? Why? @ -I offered patient Ativan for anxiety, he refused. Did you discuss the management of the patient with other professionals (professionals i.e. , PA, SLURRY BLENDER, lab, RT, psych nurse, social studies department chair, cosmetic chemist, teacher, security flex officer, dependency case manager)? Give summary @ -No Was smoking cessation discussed for >3mins.? @ -No Was critical care preformed (if so, how long)? @ -No Were there social determinants of health that impacted care today? How? (Homelessness, low income, unemployed, alcoholism, drug addiction, transportation, low edu. Level, literacy, decrease access to med. care, intermediate, rehab)? @ -No Was there de-escalation of care discussed even if they declined (Discuss DNR or withdrawal of care, Hospice)? DNR status @ -No What co-morbidities impacted this encounter? (DM, HTN, Smoking, COPD, CAD, Cancer, CVA, ARF, Chemo, Hep., AIDS, mental health diagnosis, sleep apnea, morbid obesity)? @ -COPD, history of MA, DM, Was patient admitted / discharged? Hospital course, mention meds given and route, prescriptions, significant lab abnormalities, going to OR and other pertinent info. @ -Discharge. Patient is a 62-year-old male presented ER via EMS with chief complaint of bradycardia. On examination patient for rate was 54 and blood pressure was 168/79. Patient was not complaining of any chest pain, shortness of breath, headache, dizziness, lightheadedness. Labs were unremarkable. Chest x-ray interpreted by me as unchanged from previous. Official report states low lung volumes with generalized hazy appearance. EKG showed sinus bradycardia with no acute evidence of infarct or ischemia. I discussed lab and imaging findings with patient and . Return parameters were discussed. Patient be discharged in stable condition with follow-up to PCP. Patient expressed understanding and agreement with care plan. Undiagnosed new problem with uncertain prognosis? @ -No Drug Therapy requiring intensive monitoring for toxicity (Heparin, Nitro, Insulin, Cardizem)? @ -No Were any procedures done? @ -No Diagnosis/symptom? @ -Asymptomatic bradycardia Acute, or Chronic, or Acute on Chronic? @ -Acute Uncomplicated (without systemic symptoms) or Complicated (systemic symptoms)? @ -Uncomplicated Side effects of treatment? @ -No Exacerbation, Progression, or Severe Exacerbation? @ -No Poses a threat to life or bodily function? How? (Chest pain, USA, MA, pneumonia, PE, COPD, DKA, ARF, appy, cholecystitis, CVA, Diverticulitis, Homicidal, Suicidal, threat to staff... and all critical care pts) @ -No - Lab Data Result diagrams: 06/15/23 16:18 06/15/23 16:18 Lab Results 06/15/23 06/15/23 06/15/23 Range/Units 16:18 16:18 16:18 WBC 6.5 (3.8-10.6) k/uL RBC 3.91 L (4.30-5.90) m/uL Hgb 13.1 (13.0-17.5) gm/dL Hct 38.5 L (39.0-53.0) % MCV 98.4 (80.0-100.0) fL MCH 33.6 (25.0-35.0) pg MCHC 34.1 (31.0-37.0) g/dL RDW 14.1 (11.5-15.5) % Plt Count 88 L (150-450) k/uL MPV 7.6 Sodium 135 L (137-145) mmol/L Potassium 4.1 (3.5-5.1) mmol/L Chloride 100 (98-107) mmol/L Carbon Dioxide 25 (22-30) mmol/L Anion Gap 10 mmol/L BUN 21 H (9-20) mg/dL Creatinine 1.15 (0.66-1.25) mg/dL Est GFR (CKD-EPI)AfAm 80 (>60 ml/min/1.73 sqM) Est GFR (CKD-EPI)NonAf 69 (>60 ml/min/1.73 sqM) Glucose 236 H (74-99) mg/dL Calcium 9.1 (8.4-10.2) mg/dL Total Bilirubin 0.4 (0.2-1.3) mg/dL AST 33 (17-59) U/L ALT 35 (4-49) U/L Alkaline Phosphatase 70 (38-126) U/L Troponin I <0.012 (0.000-0.034) ng/mL Total Protein 7.2 (6.3-8.2) g/dL Albumin 4.0 (3.5-5.0) g/dL - EKG Data -: EKG Interpreted by Me EKG Comments: EKG taken at 16:05 shows sinus bradycardia with no acute ST segment or T-wave abnormalities. Ventricular rate 52, AK interval 140, QRS duration 90, QT/QTC 450/431. - Radiology Data Radiology results: report reviewed, image reviewed Disposition Clinical Impression: Asymptomatic bradycardia Disposition: HOME SELF-CARE Condition: Stable Instructions (If sedation given, give patient instructions): Bradycardia (ED) Additional Instructions: Please return to the ER for any new or worsening symptoms. Is patient prescribed a controlled substance at d/c from ED?: No Referrals: Dmitriy Liu MD [Primary Care Provider] - 1-2 days Time of Disposition: 20:37
[2023-06-15 16:34] LABS: Platelet Count 88 k/uL (150-450)
[2023-06-15 16:56] LABS: ALT 35 U/L (4-49); AST 33 U/L (17-59); African American GFR (CKD) 80 (>60 ml/min/1.73 sqM); Alkaline Phosphatase 70 U/L (38-126); Anion Gap 10 mmol/L; Blood Urea Nitrogen 21 mg/dL (9-20); Calcium 9.1 mg/dL (8.4-10.2); Carbon Dioxide 25 mmol/L (22-30); Chloride 100 mmol/L (98-107); Glucose 236 mg/dL (74-99); Non-African American GFR(CKD) 69 (>60 ml/min/1.73 sqM); Potassium 4.1 mmol/L (3.5-5.1); Sodium 135 mmol/L (137-145); Total Bilirubin 0.4 mg/dL (0.2-1.3); Total Protein 7.2 g/dL (6.3-8.2)
--- NOTE | 2023-06-15 20:05 | XR ---
EXAMINATION TYPE: XR chest 2V DATE OF EXAM: 06/15/2023 5:22 PM CLINICAL INDICATION:Male, 62 years old with history of angina; COMPARISON: Chest radiographs from 06/01/2023. TECHNIQUE: XR chest 2V Frontal and lateral views of the chest. FINDINGS: Lungs/Pleura: There is no evidence of pleural effusion, focal consolidation, or pneumothorax. Pulmonary vascularity: Unremarkable. Heart/mediastinum: Cardiomediastinal silhouette is enlarged and stable. Musculoskeletal: No acute osseous pathology. IMPRESSION: Low lung volumes with a generalized hazy appearance which could represent atelectasis versus pulmonar y edema correlate with serum BNP.
[2023-06-15 22:31] VITALS: BP 154/95; PULSE 53; RESP 18; TEMP 98.1
== END 2023-06-15 22:14 | disposition home or self-care (01) ==
LOC: EC 16:00
DX: R00.1 Bradycardia, unspecified (principal); I25.2 Old myocardial infarction; J44.9 Chronic obstructive pulmonary disease, unspecified; E11.9 Type 2 diabetes mellitus without complications; I10 Essential (primary) hypertension; Z79.51 Long term (current) use of inhaled steroids; Z79.01 Long term (current) use of anticoagulants; E78.5 Hyperlipidemia, unspecified; F41.9 Anxiety disorder, unspecified; F32.A Depression, unspecified; Z79.899 Other long term (current) drug therapy; Z79.82 Long term (current) use of aspirin; Z79.4 Long term (current) use of insulin; Z86.73 Personal history of transient ischemic attack (TIA), and cerebral infarction without residual deficits; Z87.891 Personal history of nicotine dependence; Z88.5 Allergy status to narcotic agent
CPT/HCPCS: 36415; 71046; 80053; 84484; 85027; 93005; 99284

== ENCOUNTER 2023-09-07 16:20 | Inpatient (IN) | payer OTHER ==
--- NOTE | 2023-09-07 16:53 | ED ---
SOB HPI - General Chief Complaint: Shortness of Breath Stated Complaint: NEGRO Time Seen by Provider: 09/07/23 16:35 Source: patient, EMS Mode of arrival: EMS Limitations: physical limitation - History of Present Illness Initial Comments: This patient is a 62-year-old man here to have evaluation because "my thinks I have pneumonia." The patient admits to having increasing shortness of breath and a bit of cough. He states he may also have had fever. The patient was noted to have lower than usual pulse ox readings by his . Patient states that he has also been wearing oxygen today. He does have home oxygen but states that his use of it is intermittent but he did require it today. He has not noted change in urination or bowel movements. No leg pain or swelling. MD Complaint: shortness of breath Onset/Timin -: days(s) Severity scale (1-10): 0 Consistency: constant Improves With: oxygen Worsens With: nothing Known History Of: COPD, other Associated Symptoms: cough Treatments Prior to Arrival: oxygen - Related Data Home Oxygen Therapy: Yes Home Oxygen Amount: 2 Liters Home Medications Medication Instructions Recorded Confirmed Albuterol Sulfate [Proair Hfa] 2 puff INHALATION RT-QID PRN 10/22/20 09/27/23 Ferrous Sulfate [Iron (65 MG 325 mg PO DAILY 12/10/20 09/27/23 Elemental)] Clopidogrel [Plavix] 75 mg PO HS 06/30/21 09/27/23 Primidone [Mysoline] 50 mg PO HS 06/30/21 09/27/23 Escitalopram [Lexapro] 20 mg PO HS 02/23/23 09/27/23 Rosuvastatin Calcium [Crestor] 40 mg PO HS 03/14/23 09/27/23 Aspirin EC [Ecotrin Low Dose] 81 mg PO DAILY 05/22/23 09/27/23 INSULIN LISPRO (HumaLOG) [humaLOG] See Protocol SQ ACHS 05/22/23 09/27/23 Multivitamins, Thera [Multivitamin 1 tab PO DAILY 05/22/23 09/27/23 (formulary)] Insulin Detemir [Levemir Flexpen] 48 units SQ DAILY 06/15/23 09/27/23 Lactulose [Cephulac] 20 gm PO TID 09/08/23 09/27/23 amLODIPine [Norvasc] 5 mg PO DAILY 09/08/23 09/27/23 Bisoprolol-Hctz 5-6.25 mg [Ziac 1 tab PO DAILY 09/27/23 09/27/23 5-6.25 MG] Previous Rx's Medication Instructions Recorded Acetaminophen Tab [Tylenol] 325 mg PO Q6HR PRN tab 03/16/23 Lacosamide [Vimpat] 200 mg PO BID #6 tab 03/16/23 Budesonide-Formot 160-4.5 Mcg 2 puff INHALATION RT-BID #1 each 09/10/23 [Symbicort 160-4.5 Mcg Inhaler] Ipratropium-Albuterol Nebulize 3 ml INHALATION RT-QID PRN #120 09/10/23 [Duoneb 0.5 mg-3 mg/3 ml Soln] each Cephalexin [Keflex] 500 mg PO Q6HR #28 cap 09/13/23 Allergies Allergy/AdvReac Type Severity Reaction Status Date / Time morphine AdvReac Nausea & Verified 09/27/23 07:49 Vomiting Review of Systems ROS Statement: Those systems with pertinent positive or pertinent negative responses have been documented in the HPI. ROS Other: All systems not noted in ROS Statement are negative. Constitutional: Reports: fever ENT: Reports: congestion Respiratory: Reports: cough, dyspnea, wheezes. Denies: hemoptysis Cardiovascular: Denies: chest pain, palpitations, edema, syncope Gastrointestinal: Denies: abdominal pain, nausea, vomiting, diarrhea Genitourinary: Denies: dysuria, frequency, hematuria Skin: Denies: rash Neurological: Denies: headache, weakness Past Medical History Past Medical History: COPD, CVA/TIA, Diabetes Mellitus, Hyperlipidemia, Hypertension, Memory Impairment, Myocardial Infarction ([place]), Prostate Disorder, Seizure Disorder, Skin Disorder Additional Past Medical History / Comment(s): duodenal ulcer, pain and numbness cyrus legs and feet,pain pump in back, anemia. TIA X3, HEPATITIS C PAST HISTORY, LAST SEIZURE 2012,hiatal hernia Last Myocardial Infarction Date:: POSSIBLE [place] 2012 History of Any Multi-Drug Resistant Organisms: None Reported Past Surgical History: Appendectomy, Back Surgery, Heart Catheterization, O rthopedic Surgery Additional Past Surgical History / Comment(s): titanium lyn in lt leg, skin graph to rt 1st and middle finger, lt eardum replaced, cyrus. foot surgery to arch , cataract surgery bilateral with implant,skin graft left leg Past Anesthesia/Blood Transfusion Reactions: No Reported Reaction Past Psychological History: Anxiety, Depression Smoking Status: Former smoker Past Alcohol Use History: None Reported Past Drug Use History: None Reported - Past Family History Mother Family Medical History: Diabetes Mellitus, Pulmonary Embolus Father Additional Family Medical History / Comment(s): Father had pain problems/hallucinations. He committed suicide. General Exam Limitations: physical limitation General appearance: alert, in no apparent distress Head exam: Present: atraumatic, normocephalic Eye exam: Present: normal appearance. Absent: scleral icterus, conjunctival injection Neck exam: Present: normal inspection Respiratory exam: Present: wheezes, rales, rhonchi. Absent: respiratory distress, stridor, accessory muscle use Cardiovascular Exam: Present: regular rate, normal rhythm, normal heart sounds. Absent: systolic murmur, diastolic murmur, rubs, gallop GI/Abdominal exam: Present: soft. Absent: distended, tenderness, guarding, rebound, rigid, mass Extremities exam: Present: normal inspection, normal capillary refill, pedal edema (Trace edema at the ankles bilaterally). Absent: calf tenderness Back exam: Present: normal inspection. Absent: CVA tenderness (R), CVA tenderness (L) Neurological exam: Present: alert Skin exam: Present: warm, dry, intact, normal color. Absent: rash Course Vital Signs 09/07/23 09/07/23 09/07/23 16:31 21:30 23:35 Temperature 98.4 F 97.7 F Pulse Rate 64 69 Respiratory 18 16 Rate Blood Pressure 167/78 165/91 O2 Sat by Pulse 96 97 Oximetry 09/08/23 09/08/23 09/08/23 07:27 09:10 09:19 Temperature Pulse Rate 59 L 88 92 Respiratory 18 Rate Blood Pressure 124/70 O2 Sat by Pulse 96 Oximetry 09/08/23 09/08/23 11:33 12:42 Temperature Pulse Rate 59 L 53 L Respiratory 14 14 Rate Blood Pressure 147/70 130/67 O2 Sat by Pulse 95 95 Oximetry Medical Decision Making - Medical Decision Making The patient had chest x-ray that I interpreted as negative for acute infiltrate, pneumothorax, congestive heart failure The patient had CT angiogram of the chest which I interpreted as being negative for acute pulmonary embolism. There does appear to be left lower lobe infiltrate. Was pt. sent in by a medical professional or institution ([facility], [employer], urgent care, hospital, or custodial...) When possible be specific @ -[No] Did you speak to anyone other than the patient for history (EMS, parent, family, police, friend...)? What history was obtained from this source @ -[No] Did you review nursing and triage notes (agree or disagree)? Why? @ -[I reviewed and agree with nursing and triage notes] Were old charts reviewed (outside hosp., previous admission, EMS record, old EKG, old radiological studies, urgent care reports/EKG's, custodial records)? Report findings @ -[No old charts were reviewed] Differential Diagnosis (chest pain, altered mental status, abdominal pain women, abdominal pain men, vaginal bleeding, weakness, fever, dyspnea, syncope, headache, dizziness, GI bleed, back pain, seizure, CVA, palpatations, mental health, musculoskeletal)? @ -[Differential Dyspnea: Coronary syndrome, arrhythmia, tamponade, asthma, COPD, pulmonary embolism, pneumonia, pneumothorax, pulmonary effusion, anaphylaxis, diabetic ketoacidosis, flailed chest, pulmonary contusion, diaphragmatic rupture, anemia, neuromuscular, this is not meant to be an all-inclusive list. EKG interpreted by me (3pts min.). @ -[Interpreted as above] X-rays interpreted by me (1pt min.). @ -[Interpreted as above CT interpreted by me (1pt min.). @ -[I interpreted as above U/S interpreted by me (1pt. min.). @ -[None done] What testing was considered but not performed or refused? (CT, X-rays, U/S, labs)? Why? @ -[None] What meds were considered but not given or refused? Why? @ -[None] Did you discuss the management of the patient with other professionals (professionals i.e. JOSEPHINE Fowler, [employer]ISTER [employer]ER, lab, RT, psych nurse, social service manager, head of commission department, teacher, business practices officer, geriatric case manager)? Give summary @ -[As discussed with admitting physician and treatment recommendations incorporated Was smoking cessation discussed for >3mins.? @ -[No] Was critical care preformed (if so, how long)? @ -[No] Were there social determinants of health that impacted care today? How? (Homelessness, low income, unemployed, alcoholism, drug addiction, transportation, low edu. Level, literacy, decrease access to med. care, fdc, rehab)? @ -[No] Was there de-escalation of care discussed even if they declined (Discuss DNR or withdrawal of care, Hospice)? DNR status @ -[No] What co-morbidities impacted this encounter? (DM, HTN, Smoking, COPD, CAD, Cancer, CVA, ARF, Chemo, Hep., AIDS, mental health diagnosis, sleep apnea, morbid obesity)? @ -[COPD Was patient admitted / discharged? Hospital course, mention meds given and route, prescriptions, significant lab abnormalities, going to OR and other pertinent info. @ -[Patient is 62-year-old man who presents for evaluation of dyspnea. The patient underwent evaluation and the D-dimer was elevated. Patient had CT which did not reveal evident pulmonary embolism but probable small infiltrate. Patient be admitted to have further treatment for COPD exacerbation and possible left lower lobe pneumonia Undiagnosed new problem with uncertain prognosis? @ -[No] Drug Therapy requiring intensive monitoring for toxicity (Heparin, Nitro, Insulin, Cardizem)? @ -[No] Were any procedures done? @ -[No] Diagnosis/symptom? @ -[Acute exacerbation of COPD Acute pneumonia Acute, or Chronic, or Acute on Chronic? @ -[Acute Uncomplicated (without systemic symptoms) or Complicated (systemic symptoms)? @ -[Uncomplicated Side effects of treatment? @ -[No] Exacerbation, Progression, or Severe Exacerbation? @ -[Exacerbation of COPD Poses a threat to life or bodily function? How? (Chest pain, [place], [place], pneumonia, PE, COPD, DKA, ARF, appy, cholecystitis, CVA, Diverticulitis, Homicidal, Suicidal, threat to staff... and all critical care pts) @ -[Yes worsening pneumonia may lead to respiratory failure and - Lab Data Result diagrams: 09/07/23 17:44 09/07/23 17:44 Lab Results 09/07/23 09/07/23 09/07/23 Range/Units 08:30 17:44 17:44 WBC 6.3 (3.8-10.6) k/uL RBC 3.73 L (4.30-5.90) m/uL Hgb 12.7 L (13.0-17.5) gm/dL Hct 38.5 L (39.0-53.0) % MCV 103.3 H (80.0-100.0) fL MCH 33.9 (25.0-35.0) pg MCHC 32.8 (31.0-37.0) g/dL RDW 12.8 (11.5-15.5) % Plt Count 103 L (150-450) k/uL MPV 7.9 Neutrophils % 77 % Lymphocytes % 12 % Monocytes % 6 % Eosinophils % 2 % Basophils % 0 % Neutrophils # 4.8 (1.3-7.7) k/uL Lymphocytes # 0.8 L (1.0-4.8) k/uL Monocytes # 0.4 (0-1.0) k/uL Eosinophils # 0.2 (0-0.7) k/uL Basophils # 0.0 (0-0.2) k/uL Macrocytosis Slight PT (10.0-12.5) sec INR (<1.2) APTT (22.0-30.0) sec D-Dimer (<0.60) mg/L FEU Sodium (137-145) mmol/L Potassium (3.5-5.1) mmol/L Chloride (98-107) mmol/L Carbon Dioxide (22-30) mmol/L Anion Gap mmol/L BUN (9-20) mg/dL Creatinine (0.66-1.25) mg/dL Est GFR (CKD-EPI)AfAm (>60 ml/min/1.73 sqM) Est GFR (CKD-EPI)NonAf (>60 ml/min/1.73 sqM) Glucose (74-99) mg/dL Plasma Lactic Acid [place] (0.7-2.0) mmol/L Calcium (8.4-10.2) mg/dL Total Bilirubin (0.2-1.3) mg/dL AST (17-59) U/L ALT (4-49) U/L Alkaline Phosphatase (38-126) U/L Troponin I (0.000-0.034) ng/mL NT-Pro-B Natriuret Pep pg/mL Total Protein (6.3-8.2) g/dL Albumin (3.5-5.0) g/dL Influenza Type A (PCR) Not Detected (Not Detectd) Influenza Type B (PCR) Not Detected (Not Detectd) Urine Legionella Ag Negative (Negative) RSV (PCR) Not Detected (Not Detectd) SARS-CoV-2 (PCR) Not Detected (Not Detectd) 09/07/23 09/07/23 09/07/23 Range/Units 17:44 17:44 17:44 WBC (3.8-10.6) k/uL RBC (4.30-5.90) m/uL Hgb (13.0-17.5) gm/dL Hct (39.0-53.0) % MCV (80.0-100.0) fL MCH (25.0-35.0) pg MCHC (31.0-37.0) g/dL RDW (11.5-15.5) % Plt Count (150-450) k/uL MPV Neutrophils % % Lymphocytes % % Monocytes % % Eosinophils % % Basophils % % Neutrophils # (1.3-7.7) k/uL Lymphocytes # (1.0-4.8) k/uL Monocytes # (0-1.0) k/uL Eosinophils # (0-0.7) k/uL Basophils # (0-0.2) k/uL Macrocytosis PT 10.6 (10.0-12.5) sec INR 1.0 (<1.2) APTT 23.8 (22.0-30.0) sec D-Dimer 0.65 H (<0.60) mg/L FEU Sodium 139 (137-145) mmol/L Potassium 4.2 (3.5-5.1) mmol/L Chloride 105 (98-107) mmol/L Carbon Dioxide 24 (22-30) mmol/L Anion Gap 10 mmol/L BUN 20 (9-20) mg/dL Creatinine 0.76 (0.66-1.25) mg/dL Est GFR (CKD-EPI)AfAm >90 (>60 ml/min/1.73 sqM) Est GFR (CKD-EPI)NonAf >90 (>60 ml/min/1.73 sqM) Glucose 199 H (74-99) mg/dL Plasma Lactic Acid [place] 1.0 (0.7-2.0) mmol/L Calcium 9.0 (8.4-10.2) mg/dL Total Bilirubin 0.4 (0.2-1.3) mg/dL AST 29 (17-59) U/L ALT 22 (4-49) U/L Alkaline Phosphatase 60 (38-126) U/L Troponin I (0.000-0.034) ng/mL NT-Pro-B Natriuret Pep 122 pg/mL Total Protein 7.3 (6.3-8.2) g/dL Albumin 4.1 (3.5-5.0) g/dL Influenza Type A (PCR) (Not Detectd) Influenza Type B (PCR) (Not Detectd) Urine Legionella Ag (Negative) RSV (PCR) (Not Detectd) SARS-CoV-2 (PCR) (Not Detectd) 09/07/23 Range/Units 17:44 WBC (3.8-10.6) k/uL RBC (4.30-5.90) m/uL Hgb (13.0-17.5) gm/dL Hct (39.0-53.0) % MCV (80.0-100.0) fL MCH (25.0-35.0) pg MCHC (31.0-37.0) g/dL RDW (11.5-15.5) % Plt Count (150-450) k/uL MPV Neutrophils % % Lymphocytes % % Monocytes % % Eosinophils % % Basophils % % Neutrophils # (1.3-7.7) k/uL Lymphocytes # (1.0-4.8) k/uL Monocytes # (0-1.0) k/uL Eosinophils # (0-0.7) k/uL Basophils # (0-0.2) k/uL Macrocytosis PT (10.0-12.5) sec INR (<1.2) APTT (22.0-30.0) sec D-Dimer (<0.60) mg/L FEU Sodium (137-145) mmol/L Potassium (3.5-5.1) mmol/L Chloride (98-107) mmol/L Carbon Dioxide (22-30) mmol/L Anion Gap mmol/L BUN (9-20) mg/dL Creatinine (0.66-1.25) mg/dL Est GFR (CKD-EPI)AfAm (>60 ml/min/1.73 sqM) Est GFR (CKD-EPI)NonAf (>60 ml/min/1.73 sqM) Glucose (74-99) mg/dL Plasma Lactic Acid [place]ane (0.7-2.0) mmol/L Calcium (8.4-10.2) mg/dL Total Bilirubin (0.2-1.3) mg/dL AST (17-59) U/L ALT (4-49) U/L Alkaline Phosphatase (38-126) U/L Troponin I <0.012 (0.000-0.034) ng/mL NT-Pro-B Natriuret Pep pg/mL Total Protein (6.3-8.2) g/dL Albumin (3.5-5.0) g/dL Influenza Type A (PCR) (Not Detectd) Influenza Type B (PCR) (Not Detectd) Urine Legionella Ag (Negative) RSV (PCR) (Not Detectd) SARS-CoV-2 (PCR) (Not Detectd) - EKG Data -: EKG Interpreted by Me EKG shows normal: sinus rhythm, axis (Normal), intervals (Normal), QRS complexes (Normal), ST-T waves (Normal) Rate: normal (Rate 68 bpm) Interpretation: normal EKG Disposition Clinical Impression: COPD exacerbation, Pneumonia Disposition: ADMITTED IP TO THIS HOSP Condition: Stable Is patient prescribed a controlled substance at d/c from ED?: No
[2023-09-07 18:24] LABS: Basophils % (A) 0 %; Eosinophils # (A) 0.2 k/uL (0-0.7); Eosinophils % (A) 2 %; HCT 38.5 % (39.0-53.0); HGB 12.7 gm/dL (13.0-17.5); Lymphocytes # (A) 0.8 k/uL (1.0-4.8); Lymphocytes % (A) 12 %; MCH 33.9 pg (25.0-35.0); MCHC 32.8 g/dL (31.0-37.0); MCV 103.3 fL (80.0-100.0); Macrocytosis Slight; Mean Platelet Volume 7.9; Monocytes # (A) 0.4 k/uL (0-1.0); Monocytes % (A) 6 %; Neutrophils # (A) 4.8 k/uL (1.3-7.7); Neutrophils % (A) 77 %; Platelet Count 103 k/uL (150-450); RBC 3.73 m/uL (4.30-5.90); RDW 12.8 % (11.5-15.5); WBC 6.3 k/uL (3.8-10.6)
[2023-09-07 18:39] LABS: ALT 22 U/L (4-49); AST 29 U/L (17-59); African American GFR (CKD) >90 (>60 ml/min/1.73 sqM); Albumin 4.1 g/dL (3.5-5.0); Alkaline Phosphatase 60 U/L (38-126); Anion Gap 10 mmol/L; Blood Urea Nitrogen 20 mg/dL (9-20); Carbon Dioxide 24 mmol/L (22-30); Chloride 105 mmol/L (98-107); Glucose 199 mg/dL (74-99); Non-African American GFR(CKD) >90 (>60 ml/min/1.73 sqM); Partial Thromboplastin Time 23.8 sec (22.0-30.0); Potassium 4.2 mmol/L (3.5-5.1); Prothrombin Time 10.6 sec (10.0-12.5); Sodium 139 mmol/L (137-145); Total Bilirubin 0.4 mg/dL (0.2-1.3); Total Protein 7.3 g/dL (6.3-8.2)
[2023-09-07 18:49] LABS: NT-Pro-B-Type Natriuretic Pept 122 pg/mL
--- NOTE | 2023-09-07 20:39 | XR ---
EXAMINATION TYPE: XR chest 2V DATE OF EXAM: 09/07/2023 6:45 PM CLINICAL INDICATION:Male, 62 years old with history of difficulty breathing; COMPARISON: Chest radiographs from 06/15/2023 TECHNIQUE: XR chest 2V Frontal and lateral views of the chest. FINDINGS: Lungs/Pleura: There is no evidence of pleural effusion, focal consolidation, or pneumothorax. Pulmonary vascularity: Unremarkable. Heart/mediastinum: Cardiomediastinal silhouette is enlarged and stable. Musculoskeletal: No acute osseous pathology. IMPRESSION: No acute cardiopulmonary disease/process.
--- NOTE | 2023-09-07 21:45 | CT ---
EXAMINATION TYPE: CT chest angio for PE CT DLP: 560.1 mGycm, Automated exposure control for dose reduction was used. DATE OF EXAM: 09/07/2023 7:55 PM COMPARISON: 05/22/2023 CLINICAL INDICATION:Male, 62 years old with history of dyspnea, possible PE; anthony TECHNIQUE/CONTRAST: CTA scan of the thorax is performed with IV Contrast, patient injected with 100ml mL of Isovue 370, M IP images are created and reviewed these are created on a separate workstation.. FINDINGS: There is suboptimal contrast bolus and timing for the pulmonary arteries however study is considered diagnostic. Some limitation by artifact resulting from dense contrast in the SVC. PULMONARY ARTERIES: There is no evidence for a filling defect within the pulmonary vasculature to sug gest acute pulmonary embolism. Pulmonary trunk is normal in size. Trunk measures 2.9 CM. HEART: Upper normal heart size.Moderate to severe coronary artery calcification and/or stents. No ap preciable pericardial effusion. AORTA: Moderate atherosclerotic calcifications of the aorta and branches. Multiple moderate stenoses of the branch vessels from the arch. Calcific plaque at the takeoff of the right subclavian artery w ith mild stenosis. Ascending aorta is 3 CM, descending is 2.4 CM. LOWER NECK: No significant findings. MEDIASTINUM: No enlarged mediastinal or hilar nodes. SOFT TISSUES/LYMPH NODES: Mild bilateral gynecomastia changes. No enlarged axillary nodes. LUNGS/ PLEURA: Mild apical pulmonary emphysematous changes. Dependent opacities in the lungs, likely atelectasis. Asymmetric patchy opacity in the left lower lobe likely a combination of atelectasis and infiltrate. AIRWAY: Central airways are patent. Mild bronchiectasis in the right lower lobe. No clear evidence of mucous plugging. MUSCULOSKELETAL: No acute osseous abnormality. Mild disc degeneration changes are present throughout the included thoracolumbar spine. UPPER ABDOMEN: Small right renal hypodensity, likely to be a cyst. Mildly thickened slightly nodular appearance of the adrenals, probably hyperplasia and/or adenomatoid changes. Suspect some layering sl udge in the gallbladder. IMPRESSION: 1. Somewhat suboptimal study, no pulmonary embolus is demonstrated. 2. Patchy airspace opacities in the left lower lobe, may reflect combination of atelectasis and pneu monia. Correlate clinically and follow to resolution.
[2023-09-07] MEDS ORDERED: PNEUMONIA PROTOCOL UTILIZED 1 EACH MISC PO PRN (22:45)
[2023-09-07] MEDS: AZITHROMYCIN 500 MG TAB PO STA (22:50)
[2023-09-08] MEDS: ASPIRIN 81 MG PO SCH (08:36)
[2023-09-08] MEDS: BISOPROLOL-HCTZ 5-6.25 MG 1 EACH TAB PO SCH (08:36)
[2023-09-08] MEDS: amLODIPine 2.5 MG TAB PO SCH (08:36)
[2023-09-08] MEDS: FERROUS SULFATE 325 MG TAB PO SCH (08:36)
[2023-09-08] MEDS: AZITHROMYCIN 500 MG TAB PO SCH (08:37)
[2023-09-08 08:52] LABS: Glucose,Whole Blood 118 mg/dL (70-110)
[2023-09-08] MEDS ORDERED: NON FORMULARY DRUG (Insulin Detemir [Levemir Flexpen] 100 UNIT/ML Insuln.Pen) SQ SCH (09:00)
[2023-09-08] MEDS: SYMBICORT 160-4.5 MCG INHALER INHALATION SCH (09:07)
[2023-09-08] MEDS: ALBUTEROL NEBULIZED 2.5 MG/3 ML INHALATION PRN (09:08)
[2023-09-08] MEDS: INSULIN DETEMIR (LEVEMIR) 100 UNIT/ML SYR SQ SCH (09:39)
--- NOTE | 2023-09-08 10:11 | P.HPIM ---
History of Present Illness H&P Date: 09/08/23 Chief Complaint: Progressive dyspnea, cough and hypoxia This is a 62-year-old gentleman admitted with acute hypoxic respiratory failure secondary to acute COPD exacerbation, atelectasis, possible left lower lobe pneumonia and multiple other medical issues. Patient reports over the last 2 days developed progressive dyspnea accompanied by productive cough with dark thick yellow sputum, decreased his O2 sats at home to 88%. Significant other at bedside reports patient developed confusion, diaphoresis. Patient still had oxygen concentrator at home but has not required any since returning home from subacute rehab./ applied O2 at home with improvement in O2 sats into the 90s. Patient transported to the ER via EMS.On admission, afebrile, normal WBC, hemoglobin 12.7, platelets 103, chemistry panel unremarkable, viral studies negative.Chest x-ray reported no acute cardiopulmonary disease/process. Elevated D-dimer, 0.65. CTA reported suboptimal study, no PE demonstrated, patchy airspace opacities in the left lower lobe may reflect combination of atelectasis and pneumonia. Afebrile. Pneumonia protocol/ ceftriaxone and azithromycin initiated in the ER. Currently maintaining O2 sats in the high 90s on 2 L nasal cannula. Denies chest pain, palpitations. Review of Systems ROS Statement: Those systems with pertinent positive or pertinent negative responses have been documented in the HPI. ROS Other: All systems not noted in ROS Statement are negative. Past Medical History Past Medical History: COPD, CVA/TIA, Diabetes Mellitus, Hyperlipidemia, Hyp ertension, Memory Impairment, Myocardial Infarction ([place]), Prostate Disorder, Seizure Disorder, Skin Disorder Additional Past Medical History / Comment(s): duodenal ulcer, pain and numbness cyrus legs and feet,pain pump in back, anemia. TIA X3, HEPATITIS C PAST HISTORY, LAST SEIZURE 2012,hiatal hernia Last Myocardial Infarction Date:: POSSIBLE IN 2012 History of Any Multi-Drug Resistant Organisms: None Reported Past Surgical History: Appendectomy, Back Surgery, Heart Catheterization, Orthopedic Surgery Additional Past Surgical History / Comment(s): titanium lyn in lt leg, skin graph to rt 1st and middle finger, lt eardum replaced, cyrus. foot surgery to arch, cataract surgery bilateral with implant,skin graft left leg Past Anesthesia/Blood Transfusion Reactions: No Reported Reaction Past Psychological History: Anxiety, Depression Smoking Status: Former smoker Past Alcohol Use History: None Reported Past Drug Use History: None Reported - Past Family History Mother Family Medical History: Diabetes Mellitus, Pulmonary Embolus Father Additional Family Medical History / Comment(s): Father had pain problems/hallucinations. He committed suicide. Medications and Allergies Home Medications Medication Instructions Recorded Confirmed Type Albuterol Sulfate [Proair Hfa] 2 puff INHALATION RT-QID PRN 10/22/20 09/08/23 History Budesonide-Formot 160-4.5 Mcg 2 puff INHALATION RT-BID 10/22/20 09/08/23 History [Symbicort 160-4.5 Mcg Inhaler] Ferrous Sulfate [Iron (65 MG 325 mg PO DAILY 12/10/20 09/08/23 History Elemental)] Clopidogrel [Plavix] 75 mg PO HS 06/30/21 09/08/23 History Primidone [Mysoline] 50 mg PO HS 06/30/21 09/08/23 History Escitalopram [Lexapro] 20 mg PO HS 02/23/23 09/08/23 History Rosuvastatin Calcium [Crestor] 40 mg PO HS 03/14/23 09/08/23 History Acetaminophen Tab [Tylenol] 325 mg PO Q6HR PRN tab 03/16/23 09/08/23 Rx Lacosamide [Vimpat] 200 mg PO BID #6 tab 03/16/23 09/08/23 Rx Aspirin EC [Ecotrin Low Dose] 81 mg PO DAILY 05/22/23 09/08/23 History INSULIN LISPRO (HumaLOG) [humaLOG] See Protocol SQ ACHS 05/22/23 09/08/23 History Multivitamins, Thera [Multivitamin 1 tab PO DAILY 05/22/23 09/08/23 History (formulary)] Insulin Detemir [Levemir Flexpen] 48 units SQ DAILY 06/15/23 09/08/23 History Ipratropium-Albuterol Nebulize 3 ml INHALATION RT-BID PRN 09/08/23 09/08/23 History [Duoneb 0.5 mg-3 mg/3 ml Soln] Lactulose [Cephulac] 20 gm PO TID 09/08/23 09/08/23 History amLODIPine [Norvasc] 5 mg PO DAILY 09/08/23 09/08/23 History Allergies Allergy/AdvReac Type Severity Reaction Status Date / Time morphine AdvReac Nausea & Verified 09/08/23 09:58 Vomiting Physical Exam Vitals: Vital Signs Temp Pulse Resp BP Pulse Ox 09/08/23 09:19 92 09/08/23 09:10 88 09/08/23 07:27 59 L 18 124/70 96 09/07/23 23:35 97.7 F 09/07/23 21:30 69 16 165/91 97 09/07/23 16:31 98.4 F 64 18 167/78 96 Intake and Output 09/07/23 09/08/23 09/08/23 22:59 06:59 14:59 Other: Weight 81.647 kg General: Alert and oriented 3, sitting up on stretcher, no acute distress Head: atraumatic normocephalic. Eyes PERRL, EOMI intact, mucous membranes moist Respiratory: Unlabored, equal air entry, scattered expiratory wheezing and rhonchi scattered throughout Cardiovascular: Regular rate and rhythm Abdominal: Soft and nondistended, nontender,no guarding or rebound. Neuroogic: CN II-XII intact, no focal deficits. Skin: warm dry and intact with normal color Results CBC & Chem 7: 09/07/23 17:44 09/07/23 17:44 Labs: Abnormal Lab Results - Last 24 Hours (Table) 09/07/23 09/07/23 09/07/23 Range/Units 17:44 17:44 17:44 RBC 3.73 L (4.30-5.90) m/uL Hgb 12.7 L (13.0-17.5) gm/dL Hct 38.5 L (39.0-53.0) % MCV 103.3 H (80.0-100.0) fL Plt Count 103 L (150-450) k/uL Lymphocytes # 0.8 L (1.0-4.8) k/uL D-Dimer 0.65 H (<0.60) mg/L FEU Glucose 199 H (74-99) mg/dL POC Glucose (mg/dL) (70-110) mg/dL 09/08/23 Range/Units 08:49 RBC (4.30-5.90) m/uL Hgb (13.0-17.5) gm/dL Hct (39.0-53.0) % MCV (80.0-100.0) fL Plt Count (150-450) k/uL Lymphocytes # (1.0-4.8) k/uL D-Dimer (<0.60) mg/L FEU Glucose (74-99) mg/dL POC Glucose (mg/dL) 118 H (70-110) mg/dL Assessment and Plan Assessment: 1. Acute COPD exacerbation, atelectasis, possible acute left lower lobe pneumonia, pulmonary following 2. Acute hypoxic respiratory failure secondary to the above. 3. Elevated d-dimer,PE ruled out 4. 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 Diabetes mellitus type 2 6. Hypertension 7. History of seizure disorder 8. History of CVA with memory impairment 9. Anxiety/depression 10. Former nicotine dependence 11. Chronic pain syndrome Plan: Continue on current medication regimen ,monitoring and symptomatic treatment. IV steroids ordered. Aggressive pulmonary toileting with nebulized bronchodilators, IV steroids, Symbicort. Close monitoring of Accu-Cheks. PPI ordered for GI prophylaxis. Pulmonary consult in place with recommendations pending. The impression and plan of care has been dictated as directed. : I performed a history and examination of this patient, discussed the same with the dictator. I agree with the dictator's note ,documented as a scribe. Any additional findings or plans will be noted.
[2023-09-08] MEDS ORDERED: DEXTROSE 50% SYRINGE 50 ML IVP PRN ×2 (10:26)
[2023-09-08] MEDS ORDERED: IPRATROPIUM-ALBUTEROL 3 ML NEB INHALATION PRN (10:27)
[2023-09-08] MEDS: LACTULOSE 20 GM/30 ML CUP PO SCH (11:23)
[2023-09-08] MEDS: methylPREDNISolone SOD SUCCI 125 MG/2 ML VIAL IV SCH (11:23)
[2023-09-08] MEDS: PANTOPRAZOLE 40 MG/10 ML VIAL IVP SCH (11:24)
[2023-09-08 12:19] LABS: Glucose,Whole Blood 218 mg/dL (70-110)
[2023-09-08] MEDS: INSULIN ASPART (NovoLOG) 100 UNIT/ML VIAL SQ SCH (12:35)
[2023-09-08] MEDS: IPRATROPIUM-ALBUTEROL 3 ML NEB INHALATION SCH (12:37)
--- NOTE | 2023-09-08 15:53 | P.CNPUL ---
History of Present Illness Consult date: 09/08/23 Requesting physician: Dmitriy Liu Reason for consult: dyspnea, COPD, hypoxemia Chief complaint: Shortness of breath, cough, congestion History of present illness: This is a 62-year-old male patient with a known history of oxygen dependent chronic obstructive pulmonary disease, former smoker, CVA/TIA, diabetes mellitus, hypertension, hyperlipidemia, seizure disorder, hepatitis C back pain with bilateral lower extremity weakness, anxiety/depression. He presented here to the emergency room yesterday with increasing shortness of breath cough congestion and low pulse ox readings. He does have home oxygen but rarely uses it. Chest x-ray reveals no acute pulmonary process. CT angiogram ruled out pulmonary embolus. There is patchy airspace opacity in the left lower lobe reflective of atelectasis versus infiltrate. White count 6.3. Hemoglobin 12.7. Platelets 103. INR 1.0. D-dimer 0.65. Sodium 139. Potassium 4.2. Bicarb 24. BUN 20. Creatinine 0.76. Glucose 199. Viral screen negative. proBNP 122. Legionella screen negative. The patient is seen today in consultation on the regular medical floor. He is currently resting comfortably in bed. Awake and alert in no acute distress. Maintaining O2 saturations in the mid 90s on 2 L/min per nasal cannula. He is afebrile. Hemodynamically stable. He has a dry nonproductive cough. Review of Systems REVIEW OF SYSTEMS: CONSTITUTIONAL: Denies any recent significant weight loss or weight gain. EYES: Denies change in vision. EARS, NOSE, MOUTH, THROAT: Denies headaches, denies sore throat. CARDIOVASCULAR: Denies chest pain, palpitations or syncopal episodes. RESPIRATORY: Positive for shortness of breath, cough, congestion no hemoptysis. GASTROINTESTINAL: Denies change in appetite, denies abdominal pain GENITOURINARY: Denies hematuria, denies infections. MUSKULOSKELETAL: Denies pain, denies swelling. INTEGUMENTARY: Denies rash, denies eczema. NEUROLOGICAL: Denies recent memory loss, no recent seizure activity. PSYCHIATRIC: Denies anxiety, denies depression. HEMATOLOGIC/LYMPHATIC: Denies anemia, denies enlarged lymph nodes. Past Medical History Past Medical History: COPD, CVA/TIA, Diabetes Mellitus, Hyperlipidemia, Hypertension, Memory Impairment, Myocardial Infarction ([place]), Prostate Disorder, Seizure Disorder, Skin Disorder Additional Past Medical History / Comment(s): duodenal ulcer, pain and numbness cyrus legs and feet,pain pump in back, anemia. TIA X3, HEPATITIS C PAST HISTORY, LAST SEIZURE 2012,hiatal hernia Last Myocardial Infarction Date:: POSSIBLE [place] 2012 History of Any Multi-Drug Resistant Organisms: None Reported Past Surgical History: Appendectomy, Back Surgery, Heart Catheterization, Orthopedic Surgery Additional Past Surgical History / Comment(s): titanium lyn in lt leg, skin graph to rt 1st and middle finger, lt eardum replaced, cyrus. foot surgery to arch, cataract surgery bilateral with implant,skin graft left leg Past Anesthesia/Blood Transfusion Reactions: No Reported Reaction Past Psychological History: Anxiety, Depression Smoking Status: Former smoker Past Alcohol Use History: None Reported Past Drug Use History: None Reported - Past Family History Mother Family Medical History: Diabetes Mellitus, Pulmonary Embolus Father Additional Family Medical History / Comment(s): Father had pain problems/hallucinations. He committed suicide. Medications and Allergies Home Medications Medication Instructions Recorded Confirmed Type Albuterol Sulfate [Proair Hfa] 2 puff INHALATION RT-QID PRN 10/22/20 09/08/23 History Budesonide-Formot 160-4.5 Mcg 2 puff INHALATION RT-BID 10/22/20 09/08/23 History [Symbicort 160-4.5 Mcg Inhaler] Ferrous Sulfate [Iron (65 MG 325 mg PO DAILY 12/10/20 09/08/23 History Elemental)] Clopidogrel [Plavix] 75 mg PO HS 06/30/21 09/08/23 History Primidone [Mysoline] 50 mg PO HS 06/30/21 09/08/23 History Escitalopram [Lexapro] 20 mg PO HS 02/23/23 09/08/23 History Rosuvastatin Calcium [Crestor] 40 mg PO HS 03/14/23 09/08/23 History Acetaminophen Tab [Tylenol] 325 mg PO Q6HR PRN tab 03/16/23 09/08/23 Rx Lacosamide [Vimpat] 200 mg PO BID #6 tab 03/16/23 09/08/23 Rx Aspirin EC [Ecotrin Low Dose] 81 mg PO DAILY 05/22/23 09/08/23 History INSULIN LISPRO (HumaLOG) [humaLOG] See Protocol SQ ACHS 05/22/23 09/08/23 History Multivitamins, Thera [Multivitamin 1 tab PO DAILY 05/22/23 09/08/23 History (formulary)] Insulin Detemir [Levemir Flexpen] 48 units SQ DAILY 06/15/23 09/08/23 History Ipratropium-Albuterol Nebulize 3 ml INHALATION RT-BID PRN 09/08/23 09/08/23 History [Duoneb 0.5 mg-3 mg/3 ml Soln] Lactulose [Cephulac] 20 gm PO TID 09/08/23 09/08/23 History amLODIPine [Norvasc] 5 mg PO DAILY 09/08/23 09/08/23 History Allergies Allergy/AdvReac Type Severity Reaction Status Date / Time morphine AdvReac Nausea & Verified 09/08/23 09:58 Vomiting Physical Exam Vitals: Vital Signs Temp Pulse Pulse Resp BP BP Pulse Ox 09/08/23 13:17 98.1 F 56 L 16 137/72 96 09/08/23 12:42 53 L 14 130/67 95 09/08/23 11:33 59 L 14 147/70 95 09/08/23 09:19 92 09/08/23 09:10 88 09/08/23 07:27 59 L 18 124/70 96 09/07/23 23:35 97.7 F 09/07/23 21:30 69 16 165/91 97 09/07/23 16:31 98.4 F 64 18 167/78 96 Intake and Output 09/08/23 09/08/23 09/08/23 06:59 14:59 22:59 Intake Total 120 Balance 120 Intake: Oral 120 GENERAL EXAM: Alert, pleasant 62-year-old male, on 2 L nasal cannula, comfortable in no apparent distress. HEAD: Normocephalic. EYES: Normal reaction of pupils, equal size. NOSE: Clear with pink turbinates. THROAT: No erythema or exudates. NECK: No masses, no JVD. CHEST: No chest wall deformity. LUNGS: Equal air entry with faint crackles in the left base. CVS: S1 and S2 normal with no audible murmur, regular rhythm. ABDOMEN: No hepatosplenomegaly, normal bowel sounds, no guarding or rigidity. SPINE: No scoliosis or deformity SKIN: No rashes CENTRAL NERVOUS SYSTEM: No focal deficits, tone is normal in all 4 extremities. EXTREMITIES: There is no peripheral edema. No clubbing, no cyanosis. Peripheral pulses are intact. Results - Laboratory Findings CBC and BMP: 09/07/23 17:44 09/07/23 17:44 PT/INR, D-dimer PT 10.6 sec (10.0-12.5) 09/07/23 17:44 INR 1.0 (<1.2) 09/07/23 17:44 D-Dimer 0.65 mg/L FEU (<0.60) H 09/07/23 17:44 Abnormal lab findings: Abnormal Labs 09/07/23 09/07/23 09/07/23 17:44 17:44 17:44 RBC 3.73 L Hgb 12.7 L Hct 38.5 L MCV 103.3 H Plt Count 103 L Lymphocytes # 0.8 L D-Dimer 0.65 H Glucose 199 H POC Glucose (mg/dL) 09/08/23 09/08/23 08:49 12:18 RBC Hgb Hct MCV Plt Count Lymphocytes # D-Dimer Glucose POC Glucose (mg/dL) 118 H 218 H - Diagnostic Findings Chest x-ray: image reviewed CT scan - chest: image reviewed Assessment and Plan Assessment: Acute on chronic hypoxemic respiratory failure secondary to an acute exacerbation of chronic obstructive pulmonary disease. Chest x-ray shows no acute process. CT angiogram ruled out pulmonary embolism. There is some questionable left lower lobe infiltrate versus atelectasis Chronic obstructive pulmonary disease, intermittently on home oxygen Former smoker History of CVA History of chronic back pain with lower extremity weakness with pain pump History of seizure disorder, maintained on Vimpat Memory impairment Hypertension Hyperlipidemia Diabetes mellitus, type II History of hepatitis C with secondary liver cirrhosis Chronic thrombocytopenia History of anxiety/depression Plan: The patient was seen and evaluated Chest x-ray, CT angiogram, labs and medications reviewed Continue DuoNeb inhalations, Symbicort, Solu-Medrol Currently on ceftriaxone and azithromycin for now Check a procalcitonin Titrate the FiO2 as tolerated We will continue to follow and make further recommendations based on his clinical status I have personally seen and examined the patient, performed the documentation and the assessment and plan as written. Number of minutes spent on the visit: 20.
[2023-09-08 17:53] LABS: Glucose,Whole Blood 188 mg/dL (70-110)
[2023-09-08 20:32] LABS: Glucose,Whole Blood 220 mg/dL (70-110)
[2023-09-08] MEDS: PRIMIDONE 50 MG TAB PO SCH (21:05)
[2023-09-08] MEDS: ATORVASTATIN 80 MG TAB PO SCH (21:05)
[2023-09-08] MEDS: ESCITALOPRAM 20 MG TAB PO SCH (21:05)
[2023-09-08] MEDS: CLOPIDOGREL 75 MG TAB PO SCH (21:05)
[2023-09-09 06:07] LABS: Glucose,Whole Blood 214 mg/dL (70-110)
[2023-09-09] MEDS: ACETAMINOPHEN TAB 325 MG TAB PO PRN (09:23)
[2023-09-09] MEDS ORDERED: AZITHROMYCIN 500 MG TAB PO SCH (11:00)
[2023-09-09 12:10] LABS: Glucose,Whole Blood 290 mg/dL (70-110)
[2023-09-09] MEDS: INSULIN DETEMIR (LEVEMIR) 100 UNIT/ML SYR SQ ONE (12:22)
--- NOTE | 2023-09-09 13:31 | P.PN ---
Subjective Progress Note Date: 09/09/23 H&P Date: 09/08/23 Chief Complaint: Progressive dyspnea, cough and hypoxia This is a 62-year-old gentleman admitted with acute hypoxic respiratory failure secondary to acute COPD exacerbation, atelectasis, possible left lower lobe pneumonia and multiple other medical issues. Patient reports over the last 2 days developed progressive dyspnea accompanied by productive cough with dark thick yellow sputum, decreased his O2 sats at home to 88%. Significant other at bedside reports patient developed confusion, diaphoresis. Patient still had oxygen concentrator at home but has not required any since returning home from subacute rehab./ applied O2 at home with improvement in O2 sats into the 90s. Patient transported to the ER via EMS.On admission, afebrile, normal WBC, hemoglobin 12.7, platelets 103, chemistry panel unremarkable, viral studies negative.Chest x-ray reported no acute cardiopulmonary disease/process. Elevated D-dimer, 0.65. CTA reported suboptimal study, no PE demonstrated, patchy airspace opacities in the left lower lobe may reflect combination of atelectasis and pneumonia. Afebrile. Pneumonia protocol/ ceftriaxone and azithromycin initiated in the ER. Currently maintaining O2 sats in the high 90s on 2 L nasal cannula. Denies chest pain, palpitations. 09/09/2023 Procalcitonin 0.12. Maintained on nebulized bronchodilators, IV steroids, Symbicort, ceftriaxone,azithromycin. Maintaining O2 sats in the high 90s on 3 L nasal cannula. Minimal productive cough with thick whitish sputum. blood sugars mildly elevated into the low 200s. Afebrile, preliminary blood cultures reporting no growth after 24 hours. Denies chest pain, palpitations. Objective - Vital Signs Vital signs: Vital Signs Temp 98.5 F 09/09/23 07:00 Pulse 64 09/09/23 07:54 Resp 16 09/09/23 07:00 BP 133/68 09/09/23 07:00 Pulse Ox 97 09/09/23 07:43 FiO2 Intake & Output 09/08/23 09/09/23 09/09/23 18:59 06:59 18:59 Intake Total 360 180 Output Total 100 1000 Balance 260 -1000 180 Weight 81.647 kg Intake: Oral 360 180 Output: Urine 100 1000 Other: Voiding Method Urinal # Voids 400 - Exam General: Alert and oriented 3, sitting up on stretcher, no acute distress Head: atraumatic normocephalic. Eyes PERRL, EOMI intact, mucous membranes moist Respiratory: Unlabored, equal air entry, decreased scattered rhonchi, expiratory wheezing lessened Cardiovascular: Regular rate and rhythm Abdominal: Soft and nondistended, nontender,no guarding or rebound. Neuroogic: CN II-XII intact, no focal deficits. Skin: warm dry and intact with normal color - Labs CBC & Chem 7: 09/07/23 17:44 09/07/23 17:44 Labs: Abnormal Lab Results - Last 24 Hours (Table) 09/08/23 09/08/23 09/08/23 Range/Units 10:45 12:18 17:51 POC Glucose (mg/dL) 218 H 188 H (70-110) mg/dL Procalcitonin 0.12 H (0.02-0.09) ng/mL 09/08/23 09/09/23 Range/Units 20:30 06:05 POC Glucose (mg/dL) 220 H 214 H (70-110) mg/dL Procalcitonin (0.02-0.09) ng/mL Microbiology - Last 24 Hours (Table) 09/07/23 22:40 Blood Culture - Preliminary Blood 09/07/23 22:55 Blood Culture - Preliminary Blood Assessment and Plan Assessment: 1. Acute COPD exacerbation, atelectasis, possible acute left lower lobe pneu monia, procalcitonin elevated. 2. Acute hypoxic respiratory failure secondary to the above. 3. Elevated d-dimer,PE ruled out 4. 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 Diabetes mellitus type 2 6. Hypertension 7. History of seizure disorder 8. History of CVA with memory impairment 9. Anxiety/depression 10. Former nicotine dependence 11. Chronic pain syndrome Plan: Continue on current medication regimen ,monitoring and symptomatic treatment. Azithromycin tx completed with today's dose. maintain aggressive pulmonary toileting with nebulized bronchodilators, IV steroids, Symbicort. Levemir dose increased ,close monitoring of Accu-Cheks. The impression and plan of care has been dictated as directed. : I performed a history and examination of this patient, discussed the same with the dictator. I agree with the dictator's note ,documented as a scribe. Any additional findings or plans will be noted.
--- NOTE | 2023-09-09 13:59 | P.PN ---
Subjective Progress Note Date: 09/09/23 This is a 62-year-old male patient with a known history of oxygen dependent chronic obstructive pulmonary disease, former smoker, CVA/TIA, diabetes mellitus, hypertension, hyperlipidemia, seizure disorder, hepatitis C back pain with bilateral lower extremity weakness, anxiety/depression. He presented here to the emergency room yesterday with increasing shortness of breath cough congestion and low pulse ox readings. He does have home oxygen but rarely uses it. Chest x-ray reveals no acute pulmonary process. CT angiogram ruled out pulmonary embolus. There is patchy airspace opacity in the left lower lobe reflective of atelectasis versus infiltrate. White count 6.3. Hemoglobin 12.7. Platelets 103. INR 1.0. D-dimer 0.65. Sodium 139. Potassium 4.2. Bicarb 24. BUN 20. Creatinine 0.76. Glucose 199. Viral screen negative. proBNP 122. Legionella screen negative. The patient is seen today in consultation on the regular medical floor. He is currently resting comfortably in bed. Awake and alert in no acute distress. Maintaining O2 saturations in the mid 90s on 2 L/min per nasal cannula. He is afebrile. Hemodynamically stable. He has a dry nonproductive cough. The patient is seen today September 09, 2023 in follow-up at the regular medical floor. He is awake and alert in no acute distress. He is feeling a bit better today compared to yesterday. Maintaining O2 saturations in the 90s on 3 L/min per nasal cannula. He is being treated for mild left lower lobe infiltrate. Continued on ceftriaxone and azithromycin. Continued on bronchodilators and steroids. Glucose 214. Hemoglobin A1c 7.2. Objective - Vital Signs Vital signs: Vital Signs Temp 98.5 F 09/09/23 07:00 Pulse 64 09/09/23 11:22 Resp 16 09/09/23 07:00 BP 133/68 09/09/23 07:00 Pulse Ox 97 09/09/23 07:43 FiO2 Intake & Output 09/08/23 09/09/23 09/09/23 18:59 06:59 18:59 Intake Total 360 180 Output Total 100 1000 Balance 260 -1000 180 Weight 81.647 kg Intake: Oral 360 180 Output: Urine 100 1000 Other: Voiding Method Urinal # Voids 400 - Exam GENERAL EXAM: Alert, 62-year-old male, on 3 L nasal cannula, in no apparent distress. HEAD: Normocephalic. EYES: Normal reaction of pupils, equal size. NOSE: Clear with pink turbinates. THROAT: No erythema or exudates. NECK: No masses, no JVD. CHEST: No chest wall deformity. LUNGS: Equal air entry with faint crackles in the left base. CVS: S1 and S2 normal with no audible murmur, regular rhythm. ABDOMEN: No hepatosplenomegaly, normal bowel sounds, no guarding or rigidity. SPINE: No scoliosis or deformity SKIN: No rashes CENTRAL NERVOUS SYSTEM: No focal deficits, tone is normal in all 4 extremities. EXTREMITIES: There is no peripheral edema. No clubbing, no cyanosis. Peripheral pulses are intact. - Labs CBC & Chem 7: 09/07/23 17:44 09/07/23 17:44 Labs: Abnormal Lab Results - Last 24 Hours (Table) 09/08/23 09/08/23 09/08/23 Range/Units 10:45 17:51 20:30 POC Glucose (mg/dL) 188 H 220 H (70-110) mg/dL Hemoglobin A1c (<=6.0) % Procalcitonin 0.12 H (0.02-0.09) ng/mL 09/09/23 09/09/23 09/09/23 Range/Units 06:04 06:05 12:08 POC Glucose (mg/dL) 214 H 290 H (70-110) mg/dL Hemoglobin A1c 7.2 H (<=6.0) % Procalcitonin (0.02-0.09) ng/mL Microbiology - Last 24 Hours (Table) 09/07/23 22:40 Blood Culture - Preliminary Blood 09/07/23 22:55 Blood Culture - Preliminary Blood Assessment and Plan Assessment: Acute on chronic hypoxemic respiratory failure secondary to an acute exacerbation of chronic obstructive pulmonary disease. CT angiogram ruled out pulmonary embolism. There is some questionable left lower lobe infiltrate versus atelectasis. Procalcitonin 0.12. Remains on ceftriaxone and azithromycin Chronic obstructive pulmonary disease, intermittently on home oxygen Former smoker History of CVA History of chronic back pain with lower extremity weakness with pain pump History of seizure disorder, maintained on Vimpat Memory impairment Hypertension Hyperlipidemia Diabetes mellitus, type II History of hepatitis C with secondary liver cirrhosis Chronic thrombocytopenia History of anxiety/depression Plan: The patient was seen and evaluated Labs and medications reviewed Continue DuoNeb inhalations, Symbicort, Solu-Medrol Currently on ceftriaxone and azithromycin Titrate the FiO2 as tolerated Probable discharge in the a.m. We will continue to follow I have personally seen and examined the patient, performed the documentation and the assessment and plan as written. Number of minutes spent on the visit: 10.
[2023-09-09 15:29] VITALS: TEMP 98.3
[2023-09-09 17:13] LABS: Glucose,Whole Blood 331 mg/dL (70-110)
[2023-09-09 21:39] LABS: Glucose,Whole Blood 280 mg/dL (70-110)
[2023-09-10 06:19] LABS: Glucose,Whole Blood 235 mg/dL (70-110)
[2023-09-10] MEDS: INSULIN DETEMIR (LEVEMIR) 100 UNIT/ML SYR SQ SCH (06:26)
[2023-09-10 07:50] VITALS: BP 145/77; RESP 17
[2023-09-10 09:42] VITALS: PULSE 76
[2023-09-10] MEDS ORDERED: LACOSAMIDE 50 MG TABLET PO SCH (11:15)
--- NOTE | 2023-09-10 12:07 | P.DS ---
Providers Date of admission: 09/07/23 22:47 Expected date of discharge: 09/10/23 Attending physician: Dmitriy Liu MD Consults: 09/08/23 08:28 Consult Physician Routine Consulting Provider: Isreal Torres Consult Reason/Comments: copd Do you want consulting provider notified?: Yes Primary care physician: Dmitriy Liu MD Hospital Course: Final Diagnoses: 1. Acute COPD exacerbation, atelectasis, acute left lower lobe pneumonia, procalcitonin elevated. 2. Acute hypoxic respiratory failure secondary to the above. 3. Elevated d-dimer,PE ruled out 4. 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 Diabetes mellitus type 2, hemoglobin A1c 7.2, further diabetic teaching, recommendations in clinic with PCP. 6. Hypertension 7. History of seizure disorder 8. History of CVA with memory impairment 9. Anxiety/depression 10. Former nicotine dependence 11. Chronic pain syndrome Hospital course:This is a 62-year-old gentleman admitted with acute hypoxic respiratory failure secondary to acute COPD exacerbation, atelectasis, possible left lower lobe pneumonia and multiple other medical issues. Patient reports over the last 2 days developed progressive dyspnea accompanied by productive cough with dark thick yellow sputum, decreased his O2 sats at home to 88%. Significant other at bedside reports patient developed confusion, diaphoresis. Patient still had oxygen concentrator at home but has not required any since returning home from subacute rehab./ applied O2 at home with improvement in O2 sats into the 90s. Patient transported to the ER via EMS.On admission, afebrile, normal WBC, hemoglobin 12.7, platelets 103, chemistry panel unremarkable, viral studies negative.Chest x-ray reported no acute cardiopulmonary disease/process. Elevated D-dimer, 0.65. CTA reported suboptimal study, no PE demonstrated, patchy airspace opacities in the left lower lobe may reflect combination of atelectasis and pneumonia. Afebrile. Pneumonia protocol/ ceftriaxone and azithromycin initiated in the ER. Currently maintaining O2 sats in the high 90s on 2 L nasal cannula. Denies chest pain, palpitations. 09/09/2023 Procalcitonin 0.12. Maintained on nebulized bronchodilators, IV steroids, Symbicort, ceftriaxone,azithromycin. Maintaining O2 sats in the high 90s on 3 L nasal cannula. Minimal productive cough with thick whitish sputum. blood sugars mildly elevated into the low 200s. Afebrile, preliminary blood cultures reporting no growth after 24 hours. Denies chest pain, palpitations. Significant clinical improvement. Oxygen weaned off, maintaining O2 sats in the 90s on room air. Denies chest pain, palpitations or shortness of breath. Maintained on nebulized bronchodilators, IV steroids, ceftriaxone, completed azithromycin. afebrile. Patient will be discharged home today in a stable condition with guarded prognosis, pending final DC recommendations and clearance per pulmonary. The impression and plan of care has been dictated as directed. : I performed a history and examination of this patient, discussed the same with the dictator. I agree with the dictator's note ,documented as a scribe. Any additional findings or plans will be noted. Patient Condition at Discharge: Stable Plan - Discharge Summary Discharge Rx Participant: No New Discharge Prescriptions: New Amoxic-Pot Clav 875-125Mg [Augmentin 875-125] 1 tab PO BID 3 Days #6 tab predniSONE 10 mg PO DIRECTED #30 tab Albuterol Inhaler [Ventolin Hfa Inhaler] 2 puff INHALATION QID PRN #1 each PRN Reason: Shortness Of Breath Bisoprolol-Hctz 5-6.25 mg [Ziac 5-6.25 MG] 1 each PO DAILY #30 tab Continue Albuterol Sulfate [Proair Hfa] 2 puff INHALATION RT-QID PRN PRN Reason: Shortness Of Breath Ferrous Sulfate [Iron (65 MG Elemental)] 325 mg PO DAILY Primidone [Mysoline] 50 mg PO HS Acetaminophen Tab [Tylenol] 325 mg PO Q6HR PRN tab PRN Reason: Fever And/ Or Pain Lacosamide [Vimpat] 200 mg PO BID #6 tab INSULIN LISPRO (HumaLOG) [humaLOG] See Protocol SQ ACHS amLODIPine [Norvasc] 5 mg PO DAILY Budesonide-Formot 160-4.5 Mcg [Symbicort 160-4.5 Mcg Inhaler] 2 puff INHALATION RT-BID #1 each Clopidogrel [Plavix] 75 mg PO HS Escitalopram [Lexapro] 20 mg PO HS Rosuvastatin Calcium [Crestor] 40 mg PO HS Aspirin EC [Ecotrin Low Dose] 81 mg PO DAILY Multivitamins, Thera [Multivitamin (formulary)] 1 tab PO DAILY Insulin Detemir [Levemir Flexpen] 48 units SQ DAILY Lactulose [Cephulac] 20 gm PO TID Changed Ipratropium-Albuterol Nebulize [Duoneb 0.5 mg-3 mg/3 ml Soln] 3 ml INHALATION RT-QID PRN #120 each PRN Reason: Shortness Of Breath Discharge Medication List Albuterol Sulfate [Proair Hfa] 2 puff INHALATION RT-QID PRN 10/22/20 [History] Ferrous Sulfate [Iron (65 MG Elemental)] 325 mg PO DAILY 12/10/20 [History] Clopidogrel [Plavix] 75 mg PO HS 06/30/21 [History] Primidone [Mysoline] 50 mg PO HS 06/30/21 [History] Escitalopram [Lexapro] 20 mg PO HS 02/23/23 [History] Rosuvastatin Calcium [Crestor] 40 mg PO HS 03/14/23 [History] Acetaminophen Tab [Tylenol] 325 mg PO Q6HR PRN tab 03/16/23 [Rx] Lacosamide [Vimpat] 200 mg PO BID #6 tab 03/16/23 [Rx] Aspirin EC [Ecotrin Low Dose] 81 mg PO DAILY 05/22/23 [History] INSULIN LISPRO (HumaLOG) [humaLOG] See Protocol SQ ACHS 05/22/23 [History] Multivitamins, Thera [Multivitamin (formulary)] 1 tab PO DAILY 05/22/23 [History ] Insulin Detemir [Levemir Flexpen] 48 units SQ DAILY 06/15/23 [History] Lactulose [Cephulac] 20 gm PO TID 09/08/23 [History] amLODIPine [Norvasc] 5 mg PO DAILY 09/08/23 [History] Albuterol Inhaler [Ventolin Hfa Inhaler] 2 puff INHALATION QID PRN #1 each 09/10/23 [Rx] Amoxic-Pot Clav 875-125Mg [Augmentin 875-125] 1 tab PO BID 3 Days #6 tab 09/10/23 [Rx] Bisoprolol-Hctz 5-6.25 mg [Ziac 5-6.25 MG] 1 each PO DAILY #30 tab 09/10/23 [Rx] Budesonide-Formot 160-4.5 Mcg [Symbicort 160-4.5 Mcg Inhaler] 2 puff INHALATION RT-BID #1 each 09/10/23 [Rx] Ipratropium-Albuterol Nebulize [Duoneb 0.5 mg-3 mg/3 ml Soln] 3 ml INHALATION RT-QID PRN #120 each 09/10/23 [Rx] predniSONE 10 mg PO DIRECTED #30 tab 09/10/23 [Rx] Follow up Appointment(s)/Referral(s): Dmitriy Liu MD [Primary Care Provider] - 3 Days Patient Instructions/Handouts: Community Acquired Pneumonia (DC)
--- NOTE | 2023-09-10 14:10 | P.PN ---
Subjective Progress Note Date: 09/10/23 This is a 62-year-old male patient with a known history of oxygen dependent chronic obstructive pulmonary disease, former smoker, CVA/TIA, diabetes mellitus, hypertension, hyperlipidemia, seizure disorder, hepatitis C back pain with bilateral lower extremity weakness, anxiety/depression. He presented here to the emergency room yesterday with increasing shortness of breath cough congestion and low pulse ox readings. He does have home oxygen but rarely uses it. Chest x-ray reveals no acute pulmonary process. CT angiogram ruled out pulmonary embolus. There is patchy airspace opacity in the left lower lobe reflective of atelectasis versus infiltrate. White count 6.3. Hemoglobin 12.7. Platelets 103. INR 1.0. D-dimer 0.65. Sodium 139. Potassium 4.2. Bicarb 24. BUN 20. Creatinine 0.76. Glucose 199. Viral screen negative. proBNP 122. Legionella screen negative. The patient is seen today in consultation on the regular medical floor. He is currently resting comfortably in bed. Awake and alert in no acute distress. Maintaining O2 saturations in the mid 90s on 2 L/min per nasal cannula. He is afebrile. Hemodynamically stable. He has a dry nonproductive cough. The patient is seen today September 09, 2023 in follow-up at the regular medical floor. He is awake and alert in no acute distress. He is feeling a bit better today compared to yesterday. Maintaining O2 saturations in the 90s on 3 L/min per nasal cannula. He is being treated for mild left lower lobe infiltrate. Continued on ceftriaxone and azithromycin. Continued on bronchodilators and steroids. Glucose 214. Hemoglobin A1c 7.2. The patient is seen today September 10, 2023 in follow-up on the regular medical floor. He is sitting up in bed having breakfast. Awake and alert in no acute distress. Maintaining good O2 saturations in the 90s on room air. He denies any worsening shortness of breath, cough or congestion. Blood sugar 265. He is continued on antibiotics, bronchodilators and steroids. Objective - Vital Signs Vital signs: Vital Signs Temp 98.3 F 09/10/23 06:45 Pulse 76 09/10/23 12:06 Resp 17 09/10/23 06:45 BP 145/77 09/10/23 06:45 Pulse Ox 93 L 09/10/23 06:45 FiO2 Intake & Output 09/09/23 09/10/23 09/10/23 18:59 06:59 18:59 Intake Total 180 180 Output Total 0 450 450 Balance 180 -450 -270 Intake: Oral 180 180 Output: Urine 0 450 450 Other: # Bowel Movements 0 - Exam GENERAL EXAM: Alert, 62-year-old male, sitting up in bed, having breakfast, on room air, in no apparent distress. HEAD: Normocephalic. EYES: Normal reaction of pupils, equal size. NOSE: Clear with pink turbinates. THROAT: No erythema or exudates. NECK: No masses, no JVD. CHEST: No chest wall deformity. LUNGS: Equal air entry with faint crackles in the left base. CVS: S1 and S2 normal with no audible murmur, regular rhythm. ABDOMEN: No hepatosplenomegaly, normal bowel sounds, no guarding or rigidity. SPINE: No scoliosis or deformity SKIN: No rashes CENTRAL NERVOUS SYSTEM: No focal deficits, tone is normal in all 4 extremities. EXTREMITIES: There is no peripheral edema. No clubbing, no cyanosis. Peripheral pulses are intact. - Labs CBC & Chem 7: 09/07/23 17:44 09/07/23 17:44 Labs: Abnormal Lab Results - Last 24 Hours (Table) 09/09/23 09/09/23 09/10/23 Range/Units 17:11 21:35 06:16 POC Glucose (mg/dL) 331 H 280 H 235 H (70-110) mg/dL Microbiology - Last 24 Hours (Table) 09/08/23 12:45 Gram Stain - Final Sputum Sputum Culture - Final 09/07/23 22:40 Blood Culture - Preliminary Blood 09/07/23 22:55 Blood Culture - Preliminary Blood Assessment and Plan Assessment: Acute on chronic hypoxemic respiratory failure secondary to an acute exacerbation of chronic obstructive pulmonary disease. CT angiogram ruled out pulmonary embolism. There is some questionable left lower lobe infiltrate versus atelectasis. Procalcitonin 0.12. Remains on ceftriaxone and azithromycin, recovered and on room air air Chronic obstructive pulmonary disease, intermittently on home oxygen Former smoker History of CVA History of chronic back pain with lower extremity weakness with pain pump History of seizure disorder, maintained on Vimpat Memory impairment Hypertension Hyperlipidemia Diabetes mellitus, type II History of hepatitis C with secondary liver cirrhosis Chronic thrombocytopenia History of anxiety/depression Plan: The patient was seen and evaluated Labs and medications reviewed Stable and on room air Cleared for discharge Complete a prednisone taper Complete a course of antibiotics Continue bronchodilators Follow-up in the office in 1 week I have personally seen and examined the patient, performed the documentation and the assessment and plan as written. Number of minutes spent on the visit: 10.
[2023-09-11] MEDS ORDERED: MULTIVITAMINS, THERA 1 EACH TAB PO SCH (09:00)
== END 2023-09-10 12:15 | disposition home or self-care (01) | DRG 139 ==
LOC: EC 16:20 → 6NMEDSUR 22:47 → OBSVTOIN 22:48 → 6NMEDSUR 09-08 06:43
PROVIDERS: ADMIT Family Medicine; ATTEND Family Medicine
DX: J18.9 Pneumonia, unspecified organism (principal); J44.1 Chronic obstructive pulmonary disease with (acute) exacerbation; J96.21 Acute and chronic respiratory failure with hypoxia; J98.11 Atelectasis; D69.6 Thrombocytopenia, unspecified; K74.69 Other cirrhosis of liver; B19.20 Unspecified viral hepatitis C without hepatic coma; G40.909 Epilepsy, unspecified, not intractable, without status epilepticus; I10 Essential (primary) hypertension; F32.A Depression, unspecified; J44.0 Chronic obstructive pulmonary disease with (acute) lower respiratory infection; E11.65 Type 2 diabetes mellitus with hyperglycemia; I69.311 Memory deficit following cerebral infarction; G89.4 Chronic pain syndrome; R79.89 Other specified abnormal findings of blood chemistry; E78.5 Hyperlipidemia, unspecified; R41.0 Disorientation, unspecified; M54.9 Dorsalgia, unspecified; F41.9 Anxiety disorder, unspecified; Z87.891 Personal history of nicotine dependence; Z79.51 Long term (current) use of inhaled steroids; Z79.02 Long term (current) use of antithrombotics/antiplatelets; Z79.82 Long term (current) use of aspirin; Z79.4 Long term (current) use of insulin; Z79.899 Other long term (current) drug therapy; Z88.5 Allergy status to narcotic agent; I25.2 Old myocardial infarction; Z87.11 Personal history of peptic ulcer disease; Z97.8 Presence of other specified devices; Z11.52 Encounter for screening for COVID-19; Z99.81 Dependence on supplemental oxygen
CPT/HCPCS: 36415; 71046; 71275; 80053; 83036; 83605; 83880; 84145; 84484; 85025; 85379; 85610; 85730; 87040; 87070; 87205; 87449; 87636; 93005; 94640; 94760; 96365; 96375; 99285

== ENCOUNTER 2023-09-13 01:16 | Emergency (ER) | payer OTHER ==
[2023-09-13 01:50] LABS: Basophils % (A) 0 %; Eosinophils % (A) 0 %; HCT 39.9 % (39.0-53.0); Lymphocytes % (A) 15 %; MCH 33.8 pg (25.0-35.0); MCHC 32.6 g/dL (31.0-37.0); MCV 103.9 fL (80.0-100.0); Macrocytosis Slight; Mean Platelet Volume 7.8; Monocytes # (A) 0.4 k/uL (0-1.0); Monocytes % (A) 6 %; Neutrophils % (A) 77 %; Platelet Count 103 k/uL (150-450); RBC 3.84 m/uL (4.30-5.90); RDW 12.6 % (11.5-15.5); WBC 6.5 k/uL (3.8-10.6)
[2023-09-13 02:01] LABS: ALT 33 U/L (4-49); AST 33 U/L (17-59); African American GFR (CKD) >90 (>60 ml/min/1.73 sqM); Albumin 4.2 g/dL (3.5-5.0); Alkaline Phosphatase 61 U/L (38-126); Anion Gap 10 mmol/L; Blood Urea Nitrogen 30 mg/dL (9-20); Calcium 9.2 mg/dL (8.4-10.2); Carbon Dioxide 25 mmol/L (22-30); Chloride 101 mmol/L (98-107); Glucose 268 mg/dL (74-99); Non-African American GFR(CKD) >90 (>60 ml/min/1.73 sqM); Potassium 4.4 mmol/L (3.5-5.1); Sodium 136 mmol/L (137-145); Total Bilirubin 0.4 mg/dL (0.2-1.3); Total Protein 7.4 g/dL (6.3-8.2)
[2023-09-13 02:03] LABS: Appearance,Urine Cloudy (Clear); Bilirubin,Urine Negative (Negative); Blood,Urine Moderate (Negative); Color,Urine Light Red; Glucose,Urine (UA) 4+ (Negative); Ketones,Urine Trace (Negative); Leukocyte Esterase,Urine Negative (Negative); Nitrite,Urine Negative (Negative); PH, Urine 5.5 (5.0-8.0); Protein,Urine Trace (Negative); RBC,Urine >182 /hpf (0-5); Specific Gravity,Urine 1.027 (1.001-1.035); Urobilinogen,Urine <2.0 mg/dL (<2.0); WBC,Urine 20 /hpf (0-5)
[2023-09-13 02:38] VITALS: RESP 18; TEMP 99.5
--- NOTE | 2023-09-13 03:49 | CT ---
EXAM: CT Abdomen and Pelvis Without Intravenous Contrast CLINICAL HISTORY: hematuria, abd pain TECHNIQUE: Axial computed tomography images of the abdomen and pelvis without intravenous contrast. CTDI is 23 mGy and DLP is 1346.4 mGy-cm. This CT exam was performed using one or more of the following dose reduction techniques: automated exposure control, adjustment of the mA and/or kV according to patient size, and/or use of iterative reconstruction technique. COMPARISON: No relevant prior studies available. FINDINGS: Mediastinum: The distal esophagus is mildly distended with fluid. ABDOMEN: Liver: Cirrhosis. Gallbladder and bile ducts: Unremarkable. No calcified stones. No ductal dilation. Pancreas: Unremarkable. No ductal dilation. Spleen: Unremarkable. No splenomegaly. Adrenals: Unremarkable. No mass. Kidneys and ureters: Unremarkable. No obstructing stones. No hydronephrosis. Stomach and bowel: Unremarkable. No obstruction. No mucosal thickening. PELVIS: Appendix: No findings to suggest acute appendicitis. Bladder: Unremarkable. No stones. ABDOMEN and PELVIS: Intraperitoneal space: Unremarkable. No free air. No significant fluid collection. Bones/joints: No acute findings. Soft tissues: Unremarkable. Vasculature: Stable 3.5 cm infrarenal abdominal aortic aneurysm. Lymph nodes: Unremarkable. No enlarged lymph nodes. IMPRESSION: No acute findings in the abdomen or pelvis.
[2023-09-13 04:24] VITALS: PULSE 78
--- NOTE | 2023-09-13 04:35 | ED ---
Male Urogenital HPI - General Chief complaint: Urogenital Stated complaint: Genital Bleeding Time Seen by Provider: 09/13/23 01:25 Source: patient Mode of arrival: EMS Limitations: no limitations - History of Present Illness Initial comments: 63-year-old male presents to the emergency department with genital bleeding. is at bedside and helps provide the history. States that the patient does have incontinence issues. He wears a brief period he has had history of previous CVA. She noted that when she went to change him he had some blood in his brief. She was unsure where it was coming from. He does have a history of gastric ulcers with bleeding as well. He has had normal bowel movements today without any site of blood. Patient denies any pain. No abdominal pain or scrotal pain. No flank pain. No history of recurrent urinary tract infections. No history of bladder cancer or radiation exposure to the area. The patient denies any issues with urinating. No other alleviating, precipitating or modifying factors - Related Data Home Medications Medication Instructions Recorded Confirmed Albuterol Sulfate [Proair Hfa] 2 puff INHALATION RT-QID PRN 10/22/20 09/08/23 Ferrous Sulfate [Iron (65 MG 325 mg PO DAILY 12/10/20 09/08/23 Elemental)] Clopidogrel [Plavix] 75 mg PO HS 06/30/21 09/08/23 Primidone [Mysoline] 50 mg PO HS 06/30/21 09/08/23 Escitalopram [Lexapro] 20 mg PO HS 02/23/23 09/08/23 Rosuvastatin Calcium [Crestor] 40 mg PO HS 03/14/23 09/08/23 Aspirin EC [Ecotrin Low Dose] 81 mg PO DAILY 05/22/23 09/08/23 INSULIN LISPRO (HumaLOG) [humaLOG] See Protocol SQ ACHS 05/22/23 09/08/23 Multivitamins, Thera [Multivitamin 1 tab PO DAILY 05/22/23 09/08/23 (formulary)] Insulin Detemir [Levemir Flexpen] 48 units SQ DAILY 06/15/23 09/08/23 Lactulose [Cephulac] 20 gm PO TID 09/08/23 09/08/23 amLODIPine [Norvasc] 5 mg PO DAILY 03/27/24 03/27/24 Previous Rx's Medication Instructions Recorded Acetaminophen Tab [Tylenol] 325 mg PO Q6HR PRN tab 03/16/23 Lacosamide [Vimpat] 200 mg PO BID #6 tab 03/16/23 Albuterol Inhaler [Ventolin Hfa 2 puff INHALATION QID PRN #1 each 09/10/23 Inhaler] Amoxic-Pot Clav 875-125Mg 1 tab PO BID 3 Days #6 tab 09/10/23 [Augmentin 875-125] Bisoprolol-Hctz 5-6.25 mg [Ziac 1 each PO DAILY #30 tab 09/10/23 5-6.25 MG] Budesonide-Formot 160-4.5 Mcg 2 puff INHALATION RT-BID #1 each 09/10/23 [Symbicort 160-4.5 Mcg Inhaler] Ipratropium-Albuterol Nebulize 3 ml INHALATION RT-QID PRN #120 09/10/23 [Duoneb 0.5 mg-3 mg/3 ml Soln] each predniSONE 10 mg PO DIRECTED #30 tab 09/10/23 Cephalexin [Keflex] 500 mg PO Q6HR #28 cap 09/13/23 Allergies Allergy/AdvReac Type Severity Reaction Status Date / Time morphine AdvReac Nausea & Verified 09/13/23 01:20 Vomiting Review of Systems ROS Statement: Those systems with pertinent positive or pertinent negative responses have been documented in the HPI. ROS Other: All systems not noted in ROS Statement are negative. Past Medical History Past Medical History: COPD, CVA/TIA, Diabetes Mellitus, Hyperlipidemia, Hypertension, Memory Impairment, Myocardial Infarction (SC), Prostate Disorder, Seizure Disorder, Skin Disorder Additional Past Medical History / Comment(s): duodenal ulcer, pain and numbness cyrus legs and feet,pain pump in back, anemia. TIA X3, HEPATITIS C PAST HISTORY, LAST SEIZURE 2012,hiatal hernia Last Myocardial Infarction Date:: POSSIBLE SC 2012 History of Any Multi-Drug Resistant Organisms: None Reported Past Surgical History: Appendectomy, Back Surgery, Heart Catheterization, Orthopedic Surgery Additional Past Surgical History / Comment(s): titanium lyn in lt leg, skin graph to rt 1st and middle finger, lt eardum replaced, cyrus. foot surgery to arch, cataract surgery bilateral with implant,skin graft left leg Past Anesthesia/Blood Transfusion Reactions: No Reported Reaction Past Psychological History: Anxiety, Depression Smoking Status: Former smoker Past Alcohol Use History: None Reported Past Drug Use History: None Reported - Past Family History Mother Family Medical History: Diabetes Mellitus, Pulmonary Embolus Father Additional Family Medical History / Comment(s): Father had pain problems/hallucinations. He committed suicide. General Exam Limitations: no limitations General appearance: alert, in no apparent distress Head exam: Present: atraumatic, normocephalic, normal inspection Eye exam: Present: normal appearance, PERRL, EOMI. Absent: scleral icterus, conjunctival injection, periorbital swelling ENT exam: Present: normal exam, mucous membranes moist Neck exam: Present: normal inspection. Absent: tenderness, meningismus, lymphadenopathy Respiratory exam: Present: normal lung sounds bilaterally. Absent: respiratory distress, wheezes, rales, rhonchi, stridor Cardiovascular Exam: Present: regular rate, normal rhythm, normal heart sounds. Absent: systolic murmur, diastolic murmur, rubs, gallop, clicks GI/Abdominal exam: Present: soft, normal bowel sounds. Absent: distended, tenderness, guarding, rebound, rigid Rectal exam: Absent: black stool, bloody stool exam: Present: other (Patient has visible dried blood at the tip of his meatus). Absent: testicular tenderness, scrotal swelling Extremities exam: Present: normal inspection, full ROM, normal capillary refill. Absent: tenderness, pedal edema, joint swelling, calf tenderness Back exam: Present: normal inspection Neurological exam: Present: alert, oriented X3, CN II-XII intact Psychiatric exam: Present: normal affect, normal mood Skin exam: Present: warm, dry, intact, normal color. Absent: rash Course Vital Signs 09/13/23 09/13/23 09/13/23 01:17 03:00 06:03 Temperature 99.5 F Pulse Rate 75 78 78 Respiratory 18 18 18 Rate Blood Pressure 164/90 146/62 133/80 O2 Sat by Pulse 96 97 97 Oximetry Medical Decision Making - Medical Decision Making Was pt. sent in by a medical professional or institution (, PA, AGENTS' RECORDS CLERK, urgent care, hospital, or alf...) When possible be specific @ -No Did you speak to anyone other than the patient for history (EMS, parent, family, police, friend...)? What history was obtained from this source @ -I spoke with the patient's for history Did you review nursing and triage notes (agree or disagree)? Why? @ -I reviewed and agree with nursing and triage notes Were old charts reviewed (outside hosp., previous admission, EMS record, old EKG, old radiological studies, urgent care reports/EKG's, alf records)? Report findings @ -I reviewed patient's discharge summary from the as the patient was recently admitted Differential Diagnosis (chest pain, altered mental status, abdominal pain women, abdominal pain men, vaginal bleeding, weakness, fever, dyspnea, syncope, headache, dizziness, GI bleed, back pain, seizure, CVA, palpatations, mental health, musculoskeletal)? @ -Hematuria, bladder mass, kidney stone, GI bleed, genital trauma EKG interpreted by me (3pts min.). @ -Not done X-rays interpreted by me (1pt min.). @ -None done CT interpreted by me (1pt min.). @ -Yes, without any significant finding U/S interpreted by me (1pt. min.). @ -None done What testing was considered but not performed or refused? (CT, X-rays, U/S, labs)? Why? @ -Ultrasound however not available at this time What meds were considered but not given or refused? Why? @ -None Did you discuss the management of the patient with other professionals (professionals i.e. , PA, AGENTS' RECORDS CLERK, lab, RT, psych nurse, social and political studies professor, sales analytics manager, teacher, enforcement officer, top case assembler)? Give summary @ -No Was smoking cessation discussed for >3mins.? @ -No Was critical care preformed (if so, how long)? @ -No Were there social determinants of health that impacted care today? How? (Homelessness, low income, unemployed, alcoholism, drug addiction, transportation, low edu. Level, literacy, decrease access to med. care, fdc, rehab)? @ -No Was there de-escalation of care discussed even if they declined (Discuss DNR or withdrawal of care, Hospice)? DNR status @ -No What co-morbidities impacted this encounter? (DM, HTN, Smoking, COPD, CAD, Cancer, CVA, ARF, Chemo, Hep., AIDS, mental health diagnosis, sleep apnea, morbid obesity)? @ -CVA Was patient admitted / discharged? Hospital course, mention meds given and route, prescriptions, significant lab abnormalities, going to OR and other pertinent info. @ -Upon arrival patient was placed into room 7. Thorough history and physical exam was performed. Genital exam does demonstrate dried blood at the meatus. No active bleeding at this time. Patient is able to void yellow urine. No issues with retention. He has no testicular pain. Laboratory studies were conducted. Ultrasound is not available and therefore CT is recommended to evaluate for any reason for bleed. Patient does have history of CVA with compromised history providing skills. CT does not demonstrate source for bleed. These results are discussed with the patient. is informed that he must follow-up with urology for cystoscopy. There is concern for bladder cancer due to painless hematuria. was aware of this. He will be initiated on antibiotics until we await urine culture results. Patient was agreeable to this and the and patient were discharged home in stable condition Undiagnosed new problem with uncertain prognosis? @ -Yes Drug Therapy requiring intensive monitoring for toxicity (Heparin, Nitro, Insulin, Cardizem)? @ -No Were any procedures done? @ -No Diagnosis/symptom? @ -Acute painless hematuria Acute, or Chronic, or Acute on Chronic? @ -Acute Uncomplicated (without systemic symptoms) or Complicated (systemic symptoms)? @ -Complicated Side effects of treatment? @ -No Exacerbation, Progression, or Severe Exacerbation? @ -No Poses a threat to life or bodily function? How? (Chest pain, USA, SC, pneumonia, PE, COPD, DKA, ARF, appy, cholecystitis, CVA, Diverticulitis, Homicidal, Suicidal, threat to staff... and all critical care pts) @ -No - Lab Data Result diagrams: 09/13/23 01:39 09/13/23 01:39 Lab Results 09/13/23 09/13/23 09/13/23 Range/Units 01:39 01:39 01:39 WBC 6.5 (3.8-10.6) k/uL RBC 3.84 L (4.30-5.90) m/uL Hgb 13.0 (13.0-17.5) gm/dL Hct 39.9 (39.0-53.0) % MCV 103.9 H (80.0-100.0) fL MCH 33.8 (25.0-35.0) pg MCHC 32.6 (31.0-37.0) g/dL RDW 12.6 (11.5-15.5) % Plt Count 103 L (150-450) k/uL MPV 7.8 Neutrophils % 77 % Lymphocytes % 15 % Monocytes % 6 % Eosinophils % 0 % Basophils % 0 % Neutrophils # 5.0 (1.3-7.7) k/uL Lymphocytes # 1.0 (1.0-4.8) k/uL Monocytes # 0.4 (0-1.0) k/uL Eosinophils # 0.0 (0-0.7) k/uL Basophils # 0.0 (0-0.2) k/uL Macrocytosis Slight Sodium 136 L (137-145) mmol/L Potassium 4.4 (3.5-5.1) mmol/L Chloride 101 (98-107) mmol/L Carbon Dioxide 25 (22-30) mmol/L Anion Gap 10 mmol/L BUN 30 H (9-20) mg/dL Creatinine 0.87 (0.66-1.25) mg/dL Est GFR (CKD-EPI)AfAm >90 (>60 ml/min/1.73 sqM) Est GFR (CKD-EPI)NonAf >90 (>60 ml/min/1.73 sqM) Glucose 268 H (74-99) mg/dL Plasma Lactic Acid [place] 2.0 (0.7-2.0) mmol/L Calcium 9.2 (8.4-10.2) mg/dL Total Bilirubin 0.4 (0.2-1.3) mg/dL AST 33 (17-59) U/L ALT 33 (4-49) U/L Alkaline Phosphatase 61 (38-126) U/L Total Protein 7.4 (6.3-8.2) g/dL Albumin 4.2 (3.5-5.0) g/dL Urine Color Urine Appearance (Clear) Urine pH (5.0-8.0) Ur Specific [place] (1.001-1.035) Urine Protein (Negative) Urine Glucose (UA) (Negative) Urine Ketones (Negative) Urine Blood (Negative) Urine Nitrite (Negative) Urine Bilirubin (Negative) Urine Urobilinogen (<2.0) mg/dL Ur Leukocyte Esterase (Negative) Urine RBC (0-5) /hpf Urine WBC (0-5) /hpf 09/13/23 Range/Units 01:55 WBC (3.8-10.6) k/uL RBC (4.30-5.90) m/uL Hgb (13.0-17.5) gm/dL Hct (39.0-53.0) % MCV (80.0-100.0) fL MCH (25.0-35.0) pg MCHC (31.0-37.0) g/dL RDW (11.5-15.5) % Plt Count (150-450) k/uL MPV Neutrophils % % Lymphocytes % % Monocytes % % Eosinophils % % Basophils % % Neutrophils # (1.3-7.7) k/uL Lymphocytes # (1.0-4.8) k/uL Monocytes # (0-1.0) k/uL Eosinophils # (0-0.7) k/uL Basophils # (0-0.2) k/uL Macrocytosis Sodium (137-145) mmol/L Potassium (3.5-5.1) mmol/L Chloride (98-107) mmol/L Carbon Dioxide (22-30) mmol/L Anion Gap mmol/L BUN (9-20) mg/dL Creatinine (0.66-1.25) mg/dL Est GFR (CKD-EPI)AfAm (>60 ml/min/1.73 sqM) Est GFR (CKD-EPI)NonAf (>60 ml/min/1.73 sqM) Glucose (74-99) mg/dL Plasma Lactic Acid [place] (0.7-2.0) mmol/L Calcium (8.4-10.2) mg/dL Total Bilirubin (0.2-1.3) mg/dL AST (17-59) U/L ALT (4-49) U/L Alkaline Phosphatase (38-126) U/L Total Protein (6.3-8.2) g/dL Albumin (3.5-5.0) g/dL Urine Color Light Red Urine Appearance Cloudy (Clear) Urine pH 5.5 (5.0-8.0) Ur Specific [place] 1.027 (1.001-1.035) Urine Protein Trace H (Negative) Urine Glucose (UA) 4+ H (Negative) Urine Ketones Trace H (Negative) Urine Blood Moderate H (Negative) Urine Nitrite Negative (Negative) Urine Bilirubin Negative (Negative) Urine Urobilinogen <2.0 (<2.0) mg/dL Ur Leukocyte Esterase Negative (Negative) Urine RBC >182 H (0-5) /hpf Urine WBC 20 H (0-5) /hpf Disposition Clinical Impression: Hematuria, Thrombocytopenia Disposition: HOME SELF-CARE Condition: Stable Instructions (If sedation given, give patient instructions): Hematuria (ED) Additional Instructions: Please take the antibiotics starting on Wednesday. Call and make an appointment with the urology office. You need to have a cystoscopy because of your symptoms. Return should the bleeding get heavier, you develop clots and stop producing urine. Prescriptions: Cephalexin [Keflex] 500 mg PO Q6HR #28 cap Is patient prescribed a controlled substance at d/c from ED?: No Referrals: Dmitriy Liu MD [Primary Care Provider] - 1-2 days Tereso Leslie MD [STAFF PHYSICIAN] - 1-2 days Time of Disposition: 04:33
[2023-09-13] MEDS: cefTRIAXone IN SWFI 1,000 MG/10 ML SYRINGE IVP STA (04:46)
[2023-09-13 06:18] VITALS: BP 133/80
== END 2023-09-13 06:04 | disposition home or self-care (01) ==
LOC: EC 01:16
DX: R31.9 Hematuria, unspecified (principal); D69.6 Thrombocytopenia, unspecified; Z88.5 Allergy status to narcotic agent; Z79.02 Long term (current) use of antithrombotics/antiplatelets; Z86.73 Personal history of transient ischemic attack (TIA), and cerebral infarction without residual deficits; Z87.891 Personal history of nicotine dependence
CPT/HCPCS: 36415; 80053; 83605; 85025; 81001; 87086; 74176; 99284; 96374; J0696

== ENCOUNTER 2023-09-26 22:37 | Observation (INO) | payer OTHER ==
[2023-09-27] LABS: Appearance,Urine Clear (Clear); Bilirubin,Urine Negative (Negative); Blood,Urine Negative (Negative); Color,Urine Light Yellow; Glucose,Urine (UA) Negative (Negative); Ketones,Urine Negative (Negative); Leukocyte Esterase,Urine Negative (Negative); Nitrite,Urine Negative (Negative); PH, Urine 5.5 (5.0-8.0); Protein,Urine Negative (Negative); Specific Gravity,Urine 1.018 (1.001-1.035); Urobilinogen,Urine <2.0 mg/dL (<2.0)
[2023-09-27 01:51] LABS: Appearance,Urine Clear (Clear); Bilirubin,Urine Negative (Negative); Blood,Urine Large (Negative); Color,Urine Colorless; Glucose,Urine (UA) Negative (Negative); Ketones,Urine Negative (Negative); Leukocyte Esterase,Urine Negative (Negative); Nitrite,Urine Negative (Negative); Protein,Urine Negative (Negative); RBC,Urine 31 /hpf (0-5); Specific Gravity,Urine 1.017 (1.001-1.035); Urobilinogen,Urine <2.0 mg/dL (<2.0); WBC,Urine 3 /hpf (0-5)
--- NOTE | 2023-09-27 02:19 | XR ---
EXAM: XR Chest, 2 Views CLINICAL HISTORY: ITS.REASON XR Reason: r/o pna TECHNIQUE: Frontal and lateral views of the chest. COMPARISON: No relevant prior studies available. FINDINGS: Lungs: No consolidation or mass. Slight left basilar opacity. Pleural space: No effusion. Heart: cardiomegaly. Bones/joints: No acute findings. IMPRESSION: Slight left basilar opacity.
--- NOTE | 2023-09-27 02:32 | CT ---
EXAM: CT Head Without Intravenous Contrast CLINICAL HISTORY: ITS.REASON CT Reason: AMS TECHNIQUE: Axial computed tomography images of the head/brain without intravenous contrast. CTDI is 49.2 mGy and DLP is 1212.4 mGy-cm. This CT exam was performed using one or more of the following dose reduction techniques: automated exposure control, adjustment of the mA and/or kV according to patient size, and/or use of iterative reconstruction technique. COMPARISON: Comparison made to prior head CT from March 06, 2023. FINDINGS: Brain: Remote ischemic injury of the right frontal lobe with encephalomalacia and gliosis. No hemorrhage. Mild nonspecific white matter disease. No edema. Ventricles: Moderate ventriculomegaly. Bones/joints: Unremarkable. No acute fracture. Soft tissues: Bilateral lens replacements. Sinuses: Unremarkable as visualized. No acute sinusitis. Mastoid air cells: Unremarkable as visualized. No mastoid effusion. IMPRESSION: No evidence of acute intracranial pathology.
--- NOTE | 2023-09-27 03:19 | ED ---
General Adult HPI - General Source: patient, family Mode of arrival: wheelchair Limitations: physical limitation <Kang Roy - Last Filed: 09/27/23 04:04> <Kaden Wharton - Last Filed: 09/27/23 05:59> - General Chief complaint: Urogenital Stated complaint: Blood in urine Time Seen by Provider: 09/27/23 00:16 - History of Present Illness Initial comments: 63-year-old male with a past medical history significant for CVA presenting with his secondary to hematuria. Patient initially seen on 09/12 with concerns of the same issue. Patient wears a brief previous evaluation noted that when changing the patient noted some blood in his brief and did notice some blood coming from his urethra. At this time had a CT abdomen pelvis with no acute findings and was discharged home on antibiotics with follow-up to urology for cystoscopy. Urine culture was also obtained and this was reviewed which showed no growth. Today, patient's reports another episode of hematuria which she notes is not worse than prior however this concerned her. Also notes that patient normally sits buttocks for prolonged period of time and is concerned that he is developing bedsores. Additionally reports that he seems to be more confused than usual and is concerned that he might be developing a pneumonia. Patient himself is a poor historian and at this time history from the patient himself is limited. (Kang Roy) - Related Data Home Medications Medication Instructions Recorded Confirmed Albuterol Sulfate [Proair Hfa] 2 puff INHALATION RT-QID PRN 10/22/20 09/08/23 Ferrous Sulfate [Iron (65 MG 325 mg PO DAILY 12/10/20 09/08/23 Elemental)] Clopidogrel [Plavix] 75 mg PO HS 06/30/21 09/08/23 Primidone [Mysoline] 50 mg PO HS 06/30/21 09/08/23 Escitalopram [Lexapro] 20 mg PO HS 02/23/23 09/08/23 Rosuvastatin Calcium [Crestor] 40 mg PO HS 03/14/23 09/08/23 Aspirin EC [Ecotrin Low Dose] 81 mg PO DAILY 05/22/23 09/08/23 INSULIN LISPRO (HumaLOG) [humaLOG] See Protocol SQ ACHS 05/22/23 09/08/23 Multivitamins, Thera [Multivitamin 1 tab PO DAILY 05/22/23 09/08/23 (formulary)] Insulin Detemir [Levemir Flexpen] 48 units SQ DAILY 06/15/23 09/08/23 Lactulose [Cephulac] 20 gm PO TID 09/08/23 09/08/23 amLODIPine [Norvasc] 5 mg PO DAILY 09/08/23 09/08/23 Previous Rx's Medication Instructions Recorded Acetaminophen Tab [Tylenol] 325 mg PO Q6HR PRN tab 03/16/23 Lacosamide [Vimpat] 200 mg PO BID #6 tab 03/16/23 Albuterol Inhaler [Ventolin Hfa 2 puff INHALATION QID PRN #1 each 09/10/23 Inhaler] Amoxic-Pot Clav 875-125Mg 1 tab PO BID 3 Days #6 tab 09/10/23 [Augmentin 875-125] Bisoprolol-Hctz 5-6.25 mg [Ziac 1 each PO DAILY #30 tab 09/10/23 5-6.25 MG] Budesonide-Formot 160-4.5 Mcg 2 puff INHALATION RT-BID #1 each 09/10/23 [Symbicort 160-4.5 Mcg Inhaler] Ipratropium-Albuterol Nebulize 3 ml INHALATION RT-QID PRN #120 09/10/23 [Duoneb 0.5 mg-3 mg/3 ml Soln] each predniSONE 10 mg PO DIRECTED #30 tab 09/10/23 Cephalexin [Keflex] 500 mg PO Q6HR #28 cap 09/13/23 Allergies Allergy/AdvReac Type Severity Reaction Status Date / Time morphine AdvReac Nausea & Verified 09/26/23 22:38 Vomiting Review of Systems ROS Other: All systems not noted in ROS Statement are negative. <Kang Roy - Last Filed: 09/27/23 04:04> ROS Other: All systems not noted in ROS Statement are negative. <Kaden Wharton - Last Filed: 09/27/23 05:59> ROS Statement: Those systems with pertinent positive or pertinent negative responses have been documented in the HPI. Past Medical History Past Medical History: COPD, CVA/TIA, Diabetes Mellitus, Hyperlipidemia, Hypertension, Memory Impairment, Myocardial Infarction ([place]), Prostate Disorder, Seizure Disorder, Skin Disorder Additional Past Medical History / Comment(s): duodenal ulcer, pain and numbness cyrus legs and feet,pain pump in back, anemia. TIA X3, HEPATITIS C PAST HISTORY, LAST SEIZURE 2012,hiatal hernia Last Myocardial Infarction Date:: POSSIBLE [place] 2012 History of Any Multi-Drug Resistant Organisms: None Reported Past Surgical History: Appendectomy, Back Surgery, Heart Catheterization, Orthopedic Surgery Additional Past Surgical History / Comment(s): titanium lyn in lt leg, skin gr aph to rt 1st and middle finger, lt eardum replaced, cyrus. foot surgery to arch, cataract surgery bilateral with implant,skin graft left leg Past Anesthesia/Blood Transfusion Reactions: No Reported Reaction Past Psychological History: Anxiety, Depression Smoking Status: Former smoker Past Alcohol Use History: None Reported Past Drug Use History: None Reported - Past Family History Mother Family Medical History: Diabetes Mellitus, Pulmonary Embolus Father Additional Family Medical History / Comment(s): Father had pain problems/hallucinations. He committed suicide. <Kang Roy - Last Filed: 09/27/23 04:04> General Exam Limitations: physical limitation General appearance: alert, in no apparent distress Eye exam: Present: normal appearance Neck exam: Present: normal inspection Respiratory exam: Present: normal lung sounds bilaterally Cardiovascular Exam: Present: regular rate GI/Abdominal exam: Present: soft, normal bowel sounds. Absent: distended, tenderness, guarding, rebound, rigid Extremities exam: Present: other (2 small areas of erythema and warmth on the buttocks which appear consistent with stage I pressure ulcers.) Skin exam: Present: warm, dry <Kang Roy - Last Filed: 09/27/23 04:04> Course Vital Signs 09/26/23 09/27/23 09/27/23 22:38 03:12 03:53 Temperature 98 F Pulse Rate 53 L 53 L 55 L Respiratory 16 18 18 Rate Blood Pressure 124/79 148/67 159/77 O2 Sat by Pulse 96 95 96 Oximetry 09/27/23 05:50 Temperature Pulse Rate 53 L Respiratory 18 Rate Blood Pressure 148/74 O2 Sat by Pulse 96 Oximetry Medical Decision Making <Kang Roy - Last Filed: 09/27/23 04:04> - Lab Data Result diagrams: 09/27/23 04:02 09/27/23 03:52 <Kaden Wharton D - Last Filed: 09/27/23 05:59> - Medical Decision Making Was pt. sent in by a medical professional or institution (, PA, PARTS ASSEMBLER, urgent care, hospital, or long-term...) When possible be specific @ -[No] Did you speak to anyone other than the patient for history (EMS, parent, family, police, friend...)? What history was obtained from this source @ -Spoke to patient's for the majority of the history. For further details of his HPI. Did you review nursing and triage notes (agree or disagree)? Why? @ -[I reviewed and agree with nursing and triage notes] Were old charts reviewed (outside hosp., previous admission, EMS record, old EK G, old radiological studies, urgent care reports/EKG's, long-term records)? Report findings @ -Prior visit reviewed. For further details please see HPI. Differential Diagnosis (chest pain, altered mental status, abdominal pain women, abdominal pain men, vaginal bleeding, weakness, fever, dyspnea, syncope, headache, dizziness, GI bleed, back pain, seizure, CVA, palpatations, mental health, musculoskeletal)? @ -Differential Fever: Pneumonia, viral URI, endocarditis, myocarditis, pericarditis, otitis, sinusitis, peritonsillar Abscess, retropharyngeal Abscess, epiglottitis, peritonitis, appendicitis, Love cystitis, diverticulitis, hepatitis, colitis, UTI, PID, TOA, pyelonephritis, prostatitis, epididymitis, meningitis, encephalitis, pulmonary embolism, CVA, thyroid storm, pancreatitis, adrenal crisis, cavernous sinus thrombosis, this is not meant to be an all-inclusive list. EKG interpreted by me (3pts min.). @ -None X-rays interpreted by me (1pt min.). @ -Chest ray interpreted by me which showed slight left basilar opacity CT interpreted by me (1pt min.). @ -CT of the brain interpreted by me which reveals no acute finding U/S interpreted by me (1pt. min.). @ -[None done] What testing was considered but not performed or refused? (CT, X-rays, U/S, labs)? Why? @ -[None] What meds were considered but not given or refused? Why? @ -[None] Did you discuss the management of the patient with other professionals (professionals i.e. Dr., PA, PARTS ASSEMBLER, lab, RT, psych nurse, social service technician, construction mgr, teacher, property officer, lining caser)? Give summary @ -[No] Was smoking cessation discussed for >3mins.? @ -[No] Was critical care preformed (if so, how long)? @ -[No] Were there social determinants of health that impacted care today? How? (Homelessness, low income, unemployed, alcoholism, drug addiction, transportation, low edu. Level, literacy, decrease access to med. care, longterm, rehab)? @ -[No] Was there de-escalation of care discussed even if they declined (Discuss DNR or withdrawal of care, Hospice)? DNR status @ -[No] What co-morbidities impacted this encounter? (DM, HTN, Smoking, COPD, CAD, Cancer, CVA, ARF, Chemo, Hep., AIDS, mental health diagnosis, sleep apnea, morbid obesity)? @ -[None] Was patient admitted / discharged? Hospital course, mention meds given and route, prescriptions, significant lab abnormalities, going to OR and other pertinent info. @ -Pending 63-year-old male presented to the ED with complaints of recurrent episode of hematuria, and concern for possible pneumonia. Chest x-ray reviewed which showed slight left basilar opacity. At this time laboratory studies are pending and case signed out to my attending physician, Dr. Wharton, for further disposition. (Kang Roy) Patient care signed out to me by physician assistant softball coach, Kang. Briefly, patient 63-year-old male with multiple comorbidities. Plan at signout was to follow-up with pending labs. Patient brought in by for concerns of hematuria, pneumonia and altered mental status. Patient well-appearing at the bedside. did mention that he has a slight cough. She was concerned because he becomes slightly altered whenever he gets diagnosed with pneumonia. Vital signs are stable. Laboratory evaluation shows findings within acceptable limits. Chest x-ray is show slight left basilar opacity. Patient started on antibio tics. was concerned preferred hospital admission. Please ask reasonable given his degree of other comorbidities. Will be admitted to [facility] hospitalist group. (Kaden Wharton) - Lab Data Lab Results 09/26/23 09/27/23 09/27/23 Range/Units 23:38 01:39 03:52 WBC (3.8-10.6) k/uL RBC (4.30-5.90) m/uL Hgb (13.0-17.5) gm/dL Hct (39.0-53.0) % MCV (80.0-100.0) fL MCH (25.0-35.0) pg MCHC (31.0-37.0) g/dL RDW (11.5-15.5) % Plt Count (150-450) k/uL MPV Neutrophils % % Lymphocytes % % Monocytes % % Eosinophils % % Basophils % % Neutrophils # (1.3-7.7) k/uL Lymphocytes # (1.0-4.8) k/uL Monocytes # (0-1.0) k/uL Eosinophils # (0-0.7) k/uL Basophils # (0-0.2) k/uL Macrocytosis PT (10.0-12.5) sec INR (<1.2) APTT (22.0-30.0) sec Sodium (137-145) mmol/L Potassium (3.5-5.1) mmol/L Chloride (98-107) mmol/L Carbon Dioxide (22-30) mmol/L Anion Gap mmol/L BUN (9-20) mg/dL Creatinine (0.66-1.25) mg/dL Est GFR (CKD-EPI)AfAm (>60 ml/min/1.73 sqM) Est GFR (CKD-EPI)NonAf (>60 ml/min/1.73 sqM) Glucose (74-99) mg/dL Plasma Lactic Acid Duane 1.3 (0.7-2.0) mmol/L Calcium (8.4-10.2) mg/dL Magnesium (1.6-2.3) mg/dL Total Bilirubin (0.2-1.3) mg/dL AST (17-59) U/L ALT (4-49) U/L Alkaline Phosphatase (38-126) U/L Troponin I (0.000-0.034) ng/mL Total Protein (6.3-8.2) g/dL Albumin (3.5-5.0) g/dL Urine Color Light Yellow Colorless Urine Appearance Clear Clear (Clear) Urine pH 5.5 6.0 (5.0-8.0) Ur Specific Carbon 1.018 1.017 (1.001-1.035) Urine Protein Negative Negative (Negative) Urine Glucose (UA) Negative Negative (Negative) Urine Ketones Negative Negative (Negative) Urine Blood Negative Large H (Negative) Urine Nitrite Negative Negative (Negative) Urine Bilirubin Negative Negative (Negative) Urine Urobilinogen <2.0 <2.0 (<2.0) mg/dL Ur Leukocyte Esterase Negative Negative (Negative) Urine RBC 31 H (0-5) /hpf Urine WBC 3 (0-5) /hpf 09/27/23 09/27/23 09/27/23 Range/Units 03:52 03:52 03:52 WBC (3.8-10.6) k/uL RBC (4.30-5.90) m/uL Hgb (13.0-17.5) gm/dL Hct (39.0-53.0) % MCV (80.0-100.0) fL MCH (25.0-35.0) pg MCHC (31.0-37.0) g/dL RDW (11.5-15.5) % Plt Count (150-450) k/uL MPV Neutrophils % % Lymphocytes % % Monocytes % % Eosinophils % % Basophils % % Neutrophils # (1.3-7.7) k/uL Lymphocytes # (1.0-4.8) k/uL Monocytes # (0-1.0) k/uL Eosinophils # (0-0.7) k/uL Basophils # (0-0.2) k/uL Macrocytosis PT 10.2 (10.0-12.5) sec INR 0.9 (<1.2) APTT 24.1 (22.0-30.0) sec Sodium 137 (137-145) mmol/L Potassium 4.8 (3.5-5.1) mmol/L Chloride 103 (98-107) mmol/L Carbon Dioxide 29 (22-30) mmol/L Anion Gap 5 mmol/L BUN 23 H (9-20) mg/dL Creatinine 1.00 (0.66-1.25) mg/dL Est GFR (CKD-EPI)AfAm >90 (>60 ml/min/1.73 sqM) Est GFR (CKD-EPI)NonAf 80 (>60 ml/min/1.73 sqM) Glucose 165 H (74-99) mg/dL Plasma Lactic Acid Duane (0.7-2.0) mmol/L Calcium 9.4 (8.4-10.2) mg/dL Magnesium 1.9 (1.6-2.3) mg/dL Total Bilirubin 0.5 (0.2-1.3) mg/dL AST 31 (17-59) U/L ALT 30 (4-49) U/L Alkaline Phosphatase 66 (38-126) U/L Troponin I <0.012 (0.000-0.034) ng/mL Total Protein 7.6 (6.3-8.2) g/dL Albumin 4.2 (3.5-5.0) g/dL Urine Color Urine Appearance (Clear) Urine pH (5.0-8.0) Ur Specific Carbon (1.001-1.035) Urine Protein (Negative) Urine Glucose (UA) (Negative) Urine Ketones (Negative) Urine Blood (Negative) Urine Nitrite (Negative) Urine Bilirubin (Negative) Urine Urobilinogen (<2.0) mg/dL Ur Leukocyte Esterase (Negative) Urine RBC (0-5) /hpf Urine WBC (0-5) /hpf 09/27/23 Range/Units 04:02 WBC 7.7 (3.8-10.6) k/uL RBC 4.07 L (4.30-5.90) m/uL Hgb 13.8 (13.0-17.5) gm/dL Hct 41.1 (39.0-53.0) % MCV 101.1 H (80.0-100.0) fL MCH 33.8 (25.0-35.0) pg MCHC 33.5 (31.0-37.0) g/dL RDW 13.3 (11.5-15.5) % Plt Count 94 L (150-450) k/uL MPV 7.8 Neutrophils % 70 % Lymphocytes % 18 % Monocytes % 5 % Eosinophils % 4 % Basophils % 0 % Neutrophils # 5.4 (1.3-7.7) k/uL Lymphocytes # 1.4 (1.0-4.8) k/uL Monocytes # 0.4 (0-1.0) k/uL Eosinophils # 0.3 (0-0.7) k/uL Basophils # 0.0 (0-0.2) k/uL Macrocytosis Slight PT (10.0-12.5) sec INR (<1.2) APTT (22.0-30.0) sec Sodium (137-145) mmol/L Potassium (3.5-5.1) mmol/L Chloride (98-107) mmol/L Carbon Dioxide (22-30) mmol/L Anion Gap mmol/L BUN (9-20) mg/dL Creatinine (0.66-1.25) mg/dL Est GFR (CKD-EPI)AfAm (>60 ml/min/1.73 sqM) Est GFR (CKD-EPI)NonAf (>60 ml/min/1.73 sqM) Glucose (74-99) mg/dL Plasma Lactic Acid Duane (0.7-2.0) mmol/L Calcium (8.4-10.2) mg/dL Magnesium (1.6-2.3) mg/dL Total Bilirubin (0.2-1.3) mg/dL AST (17-59) U/L ALT (4-49) U/L Alkaline Phosphatase (38-126) U/L Troponin I (0.000-0.034) ng/mL Total Protein (6.3-8.2) g/dL Albumin (3.5-5.0) g/dL Urine Color Urine Appearance (Clear) Urine pH (5.0-8.0) Ur Specific Carbon (1.001-1.035) Urine Protein (Negative) Urine Glucose (UA) (Negative) Urine Ketones (Negative) Urine Blood (Negative) Urine Nitrite (Negative) Urine Bilirubin (Negative) Urine Urobilinogen (<2.0) mg/dL Ur Leukocyte Esterase (Negative) Urine RBC (0-5) /hpf Urine WBC (0-5) /hpf Disposition <Kang Roy - Last Filed: 09/27/23 04:04> Decision Time: 05:59 <Kaden Wharton - Last Filed: 09/27/23 05:59> Clinical Impression: Pneumonia Disposition: ADMITTED IP TO THIS HOSP Condition: Fair Referrals: Dmitriy Liu MD [Primary Care Provider] - 1-2 days
[2023-09-27 04:24] LABS: INR 0.9 (<1.2)
[2023-09-27 04:25] LABS: Partial Thromboplastin Time 24.1 sec (22.0-30.0); Prothrombin Time 10.2 sec (10.0-12.5)
[2023-09-27 04:29] LABS: ALT 30 U/L (4-49); AST 31 U/L (17-59); African American GFR (CKD) >90 (>60 ml/min/1.73 sqM); Albumin 4.2 g/dL (3.5-5.0); Alkaline Phosphatase 66 U/L (38-126); Anion Gap 5 mmol/L; Blood Urea Nitrogen 23 mg/dL (9-20); Calcium 9.4 mg/dL (8.4-10.2); Carbon Dioxide 29 mmol/L (22-30); Chloride 103 mmol/L (98-107); Glucose 165 mg/dL (74-99); Magnesium 1.9 mg/dL (1.6-2.3); Non-African American GFR(CKD) 80 (>60 ml/min/1.73 sqM); Potassium 4.8 mmol/L (3.5-5.1); Sodium 137 mmol/L (137-145); Total Bilirubin 0.5 mg/dL (0.2-1.3); Total Protein 7.6 g/dL (6.3-8.2)
[2023-09-27 04:45] LABS: Basophils % (A) 0 %; Eosinophils # (A) 0.3 k/uL (0-0.7); Eosinophils % (A) 4 %; HCT 41.1 % (39.0-53.0); HGB 13.8 gm/dL (13.0-17.5); Lymphocytes # (A) 1.4 k/uL (1.0-4.8); Lymphocytes % (A) 18 %; MCH 33.8 pg (25.0-35.0); MCHC 33.5 g/dL (31.0-37.0); MCV 101.1 fL (80.0-100.0); Macrocytosis Slight; Mean Platelet Volume 7.8; Monocytes # (A) 0.4 k/uL (0-1.0); Monocytes % (A) 5 %; Neutrophils # (A) 5.4 k/uL (1.3-7.7); Neutrophils % (A) 70 %; RBC 4.07 m/uL (4.30-5.90); RDW 13.3 % (11.5-15.5); WBC 7.7 k/uL (3.8-10.6)
[2023-09-27 04:49] LABS: Platelet Count 94 k/uL (150-450)
[2023-09-27] MEDS ORDERED: NALOXONE 0.4 MG/ML 1 ML VIAL IV PRN (05:55)
[2023-09-27] MEDS: SODIUM CHLORIDE 0.9% 1,000 ML IV SCH (06:41)
[2023-09-27] MEDS: AZITHROMYCIN 500 MG in SODIUM CHLORIDE 0.9% 250 ML IVPB STA (06:42)
[2023-09-27 08:50] LABS: Glucose,Whole Blood 139 mg/dL (70-110)
[2023-09-27] MEDS: cefTRIAXone IN SWFI 1,000 MG/10 ML SYRINGE IVP STA (08:51)
--- NOTE | 2023-09-27 11:41 | P.CNPUL ---
History of Present Illness Consult date: 09/27/23 Requesting physician: Dmitriy Liu Reason for consult: dyspnea, COPD Chief complaint: Hematuria, altered mental status History of present illness: This is a 63-year-old male patient with a known history of hypertension, hyperlipidemia, diabetes mellitus, chronic obstructive pulmonary disease, former smoker,, CVA and is mainly in a wheelchair or in bed. He was brought to the emergency room early this morning after developing hematuria and altered mental status. This x-ray reveals a left basilar opacity. CT scan of the brain revealed no evidence of acute intracranial pathology. EKG reveals no acute ST or T wave abnormalities. White count 10.7. Hemoglobin 13.8. Platelets 94,000. Sodium 137. Potassium 4.8. Bicarb 29. BUN 23. Creatinine 1.00. Glucose 165. Viral screen was negative. Urinalysis with large amount of blood and RBCs. He is seen today in consultation in the emergency department. He is awake and alert in no acute distress. He is currently maintaining good O2 saturations in the 90s on room air. He is afebrile. Denies any worsening shortness of breath, cough or congestion. Suspect atelectasis of the left lung base. Review of Systems REVIEW OF SYSTEMS: CONSTITUTIONAL: Denies any recent significant weight loss or weight gain. EYES: Denies change in vision. EARS, NOSE, MOUTH, THROAT: Denies headaches, denies sore throat. CARDIOVASCULAR: Denies chest pain, palpitations or syncopal episodes. RESPIRATORY: Denies shortness of breath, cough, congestion or hemoptysis. GASTROINTESTINAL: Denies change in appetite, denies abdominal pain GENITOURINARY: Positive for hematuria, denies infections. MUSKULOSKELETAL: Denies pain, denies swelling. INTEGUMENTARY: Denies rash, denies eczema. NEUROLOGICAL: Altered mental status. Denies recent memory loss, no recent seizure activity. PSYCHIATRIC: Denies anxiety, denies depression. HEMATOLOGIC/LYMPHATIC: Denies anemia, denies enlarged lymph nodes. Past Medical History Past Medical History: COPD, CVA/TIA, Diabetes Mellitus, Hyperlipidemia, Hypertension, Memory Impairment, Myocardial Infarction ([place]), Prostate Disorder, Seizure Disorder, Skin Disorder Additional Past Medical History / Comment(s): duodenal ulcer, pain and numbness cyrus legs and feet,pain pump in back, anemia. TIA X3, HEPATITIS C PAST HISTORY, LAST SEIZURE 2012,hiatal hernia Last Myocardial Infarction Date:: POSSIBLE [place] 2012 History of Any Multi-Drug Resistant Organisms: None Reported Past Surgical History: Appendectomy, Back Surgery, Heart Catheterization, Orthopedic Surgery Additional Past Surgical History / Comment(s): titanium lyn in lt leg, skin graph to rt 1st and middle finger, lt eardum replaced, cyrus. foot surgery to arch, cataract surgery bilateral with implant,skin graft left leg Past Anesthesia/Blood Transfusion Reactions: No Reported Reaction Past Psychological History: Anxiety, Depression Smoking Status: Former smoker Past Alcohol Use History: None Reported Past Drug Use History: None Reported - Past Family History Mother Family Medical History: Diabetes Mellitus, Pulmonary Embolus Father Additional Family Medical History / Comment(s): Father had pain problems/hallucinations. He committed suicide. Medications and Allergies Home Medications Medication Instructions Recorded Confirmed Type Albuterol Sulfate [Proair Hfa] 2 puff INHALATION RT-QID PRN 10/22/20 09/27/23 History Ferrous Sulfate [Iron (65 MG 325 mg PO DAILY 12/10/20 09/27/23 History Elemental)] Clopidogrel [Plavix] 75 mg PO HS 06/30/21 09/27/23 History Primidone [Mysoline] 50 mg PO HS 06/30/21 09/27/23 History Escitalopram [Lexapro] 20 mg PO HS 02/23/23 09/27/23 History Rosuvastatin Calcium [Crestor] 40 mg PO HS 03/14/23 09/27/23 History Acetaminophen Tab [Tylenol] 325 mg PO Q6HR PRN tab 03/16/23 09/27/23 Rx Lacosamide [Vimpat] 200 mg PO BID #6 tab 03/16/23 09/27/23 Rx Aspirin EC [Ecotrin Low Dose] 81 mg PO DAILY 05/22/23 09/27/23 History INSULIN LISPRO (HumaLOG) [humaLOG] See Protocol SQ ACHS 05/22/23 09/27/23 History Multivitamins, Thera [Multivitamin 1 tab PO DAILY 05/22/23 09/27/23 History (formulary)] Insulin Detemir [Levemir Flexpen] 48 units SQ DAILY 06/15/23 09/27/23 History Lactulose [Cephulac] 20 gm PO TID 09/08/23 09/27/23 History amLODIPine [Norvasc] 5 mg PO DAILY 09/08/23 09/27/23 History Budesonide-Formot 160-4.5 Mcg 2 puff INHALATION RT-BID #1 each 09/10/23 09/27/23 Rx [Symbicort 160-4.5 Mcg Inhaler] Ipratropium-Albuterol Nebulize 3 ml INHALATION RT-QID PRN #120 09/10/23 09/27/23 Rx [Duoneb 0.5 mg-3 mg/3 ml Soln] each Cephalexin [Keflex] 500 mg PO Q6HR #28 cap 09/13/23 09/27/23 Rx Bisoprolol-Hctz 5-6.25 mg [Ziac 1 tab PO DAILY 09/27/23 09/27/23 History 5-6.25 MG] Allergies Allergy/AdvReac Type Severity Reaction Status Date / Time morphine AdvReac Nausea & Verified 09/27/23 07:49 Vomiting Physical Exam Vitals: Vital Signs Temp Pulse Resp BP Pulse Ox 09/27/23 06:37 52 L 18 139/81 93 L 09/27/23 05:50 53 L 18 148/74 96 09/27/23 03:53 55 L 18 159/77 96 09/27/23 03:12 53 L 18 148/67 95 09/26/23 22:38 98 F 53 L 16 124/79 96 Intake and Output 09/26/23 09/27/23 09/27/23 22:59 06:59 14:59 Other: Weight 90.718 kg GENERAL EXAM: Alert, 63-year-old male, on room air, comfortable in no apparent distress. HEAD: Normocephalic. EYES: Normal reaction of pupils, equal size. NOSE: Clear with pink turbinates. THROAT: No erythema or exudates. NECK: No masses, no JVD. CHEST: No chest wall deformity. LUNGS: Equal air entry with no crackles, wheeze, rhonchi or dullness. CVS: S1 and S2 normal with no audible murmur, regular rhythm. ABDOMEN: No hepatosplenomegaly, normal bowel sounds, no guarding or rigidity. SPINE: No scoliosis or deformity SKIN: No rashes CENTRAL NERVOUS SYSTEM: Deficits from previous CVA, tone is normal in all 4 extremities. EXTREMITIES: Weakness, wheelchair-bound, there is no peripheral edema. No clubbing, no cyanosis. Peripheral pulses are intact. Results - Laboratory Findings CBC and BMP: 09/27/23 04:02 09/27/23 03:52 PT/INR, D-dimer PT 10.2 sec (10.0-12.5) 09/27/23 03:52 INR 0.9 (<1.2) 09/27/23 03:52 Abnormal lab findings: Abnormal Labs 09/27/23 09/27/23 09/27/23 01:39 03:52 04:02 RBC 4.07 L MCV 101.1 H Plt Count 94 L BUN 23 H Glucose 165 H POC Glucose (mg/dL) Urine Blood Large H Urine RBC 31 H 09/27/23 08:49 RBC MCV Plt Count BUN Glucose POC Glucose (mg/dL) 139 H Urine Blood Urine RBC - Diagnostic Findings Chest x-ray: image reviewed Assessment and Plan Assessment: Altered mental status of unclear etiology, possibly secondary to urinary tract infection Hematuria of unclear etiology Atelectasis of the left lower lobe Chronic obstructive pulmonary disease Former smoker Hypertension Hyperlipidemia History of CVA History of seizures Diabetes mellitus Plan: The patient was seen and evaluated Chest x-ray, labs and medications reviewed Check a procalcitonin Check a urine culture Received ceftriaxone and azithromycin Urology consult Currently stable and on room air Add home Symbicort, DuoNeb inhalations We will continue to follow and make further recommendations based on his clinical status I have personally seen and examined the patient, performed the documentation and the assessment and plan as written. Number of minutes spent on the visit: 20.
[2023-09-27] MEDS ORDERED: DEXTROSE 50% SYRINGE 50 ML IVP PRN ×4 (12:54→15:29)
[2023-09-27 13:00] LABS: Glucose,Whole Blood 186 mg/dL (70-110)
[2023-09-27] MEDS: INSULIN DETEMIR (LEVEMIR) 100 UNIT/ML SYR SQ SCH (14:08)
--- NOTE | 2023-09-27 14:44 | P.GSCN ---
History of Present Illness Consult date: 09/27/23 History of present illness: 63-year-old gentleman with multiple medical problems including previous strokes. He presents to the emergency room with gross hematuria. Apparently he was in the emergency room and hospital a few weeks ago with the same problem. He had a CAT scan at that point in time that was normal. He apparently was told he had a uti and treated with antibiotics. I can not see any urines to corroborate this. Patient is immmobilized due to stroke and apparently is developing bedsores up. His urinalysis does not show any evidence of infection during this er visit. He states that he doesnt have problems urinating. Review of Systems All systems: negative - Constitutional Denies fever, Denies weight loss - EENT Eyes: denies blurred vision Ears, nose, mouth and throat: Denies dysphagia - Cardiovascular Denies chest pain, Denies shortness of breath - Respiratory Denies cough, Denies 7 - Gastrointestinal Reports as per HPI - Genitourinary Denies dysuria, Denies hematuria - Integumentary Denies rash, Denies unusual bruising - Neurological Denies headaches, Denies syncope - Hematologic/Lymphatic Denies easy bleeding, Denies easy bruising Past Medical History Past Medical History: COPD, CVA/TIA, Diabetes Mellitus, Hyperlipidemia, Hypertension, Memory Impairment, Myocardial Infarction ([place]), Prostate Disorder, Seizure Disorder, Skin Disorder Additional Past Medical History / Comment(s): duodenal ulcer, pain and numbness cyrus legs and feet,pain pump in back, anemia. TIA X3, HEPATITIS C PAST HISTORY, LAST SEIZURE 2012,hiatal hernia Last Myocardial Infarction Date:: POSSIBLE [place] 2012 History of Any Multi-Drug Resistant Organisms: None Reported Past Surgical History: Appendectomy, Back Surgery, Heart Catheterization, Orthopedic Surgery Additional Past Surgical History / Comment(s): titanium lyn in lt leg, skin graph to rt 1st and middle finger, lt eardum replaced, cyrus. foot surgery to arch, cataract surgery bilateral with implant,skin graft left leg Past Anesthesia/Blood Transfusion Reactions: No Reported Reaction Past Psychological History: Anxiety, Depression Smoking Status: Former smoker Past Alcohol Use History: None Reported Past Drug Use History: None Reported - Past Family History Mother Family Medical History: Diabetes Mellitus, Pulmonary Embolus Father Additional Family Medical History / Comment(s): Father had pain problems/ hallucinations. He committed suicide. Medications and Allergies Home Medications Medication Instructions Recorded Confirmed Type Albuterol Sulfate [Proair Hfa] 2 puff INHALATION RT-QID PRN 10/22/20 09/27/23 History Ferrous Sulfate [Iron (65 MG 325 mg PO DAILY 12/10/20 09/27/23 History Elemental)] Clopidogrel [Plavix] 75 mg PO HS 06/30/21 09/27/23 History Primidone [Mysoline] 50 mg PO HS 06/30/21 09/27/23 History Escitalopram [Lexapro] 20 mg PO HS 02/23/23 09/27/23 History Rosuvastatin Calcium [Crestor] 40 mg PO HS 03/14/23 09/27/23 History Acetaminophen Tab [Tylenol] 325 mg PO Q6HR PRN tab 03/16/23 09/27/23 Rx Lacosamide [Vimpat] 200 mg PO BID #6 tab 03/16/23 09/27/23 Rx Aspirin EC [Ecotrin Low Dose] 81 mg PO DAILY 05/22/23 09/27/23 History INSULIN LISPRO (HumaLOG) [humaLOG] See Protocol SQ ACHS 05/22/23 09/27/23 History Multivitamins, Thera [Multivitamin 1 tab PO DAILY 05/22/23 09/27/23 History (formulary)] Insulin Detemir [Levemir Flexpen] 48 units SQ DAILY 06/15/23 09/27/23 History Lactulose [Cephulac] 20 gm PO TID 09/08/23 09/27/23 History amLODIPine [Norvasc] 5 mg PO DAILY 09/08/23 09/27/23 History Budesonide-Formot 160-4.5 Mcg 2 puff INHALATION RT-BID #1 each 09/10/23 09/27/23 Rx [Symbicort 160-4.5 Mcg Inhaler] Ipratropium-Albuterol Nebulize 3 ml INHALATION RT-QID PRN #120 09/10/23 09/27/23 Rx [Duoneb 0.5 mg-3 mg/3 ml Soln] each Cephalexin [Keflex] 500 mg PO Q6HR #28 cap 09/13/23 09/27/23 Rx Bisoprolol-Hctz 5-6.25 mg [Ziac 1 tab PO DAILY 09/27/23 09/27/23 History 5-6.25 MG] Allergies Allergy/AdvReac Type Severity Reaction Status Date / Time morphine AdvReac Nausea & Verified 09/27/23 07:49 Vomiting Surgical - Exam Vital Signs Temp Pulse Resp BP Pulse Ox 98 F 53 L 16 124/79 96 09/26/23 22:38 09/26/23 22:38 09/26/23 22:38 09/26/23 22:38 09/26/23 22:38 - General well developed, well nourished, no distress - Eyes normal ocular movement, no icteric - ENT no hearing loss, no congestion - Neck no masses, trachea midline - Respiratory normal respiratory effort, clear to auscultation - Abdomen Abdomen: soft, non tender, no guarding, no rigid, no rebound - Integumentary no rash, no abnormal pigmentation - Neurologic no disoriented, no combative - Musculoskeletal the patient cannot walk due to previous stroke. - Psychiatric oriented to time, oriented to person, oriented to place, speech is normal, memory intact Results - Labs 09/27/23 04:02 09/27/23 03:52 Abnormal Lab Results - Last 24 Hours (Table) 09/27/23 09/27/23 09/27/23 Range/Units 01:39 03:52 03:52 RBC (4.30-5.90) m/uL MCV (80.0-100.0) fL Plt Count (150-450) k/uL BUN 23 H (9-20) mg/dL Glucose 165 H (74-99) mg/dL POC Glucose (mg/dL) (70-110) mg/dL Procalcitonin 0.13 H (0.02-0.09) ng/mL Urine Blood Large H (Negative) Urine RBC 31 H (0-5) /hpf 09/27/23 09/27/23 Range/Units 04:02 08:49 RBC 4.07 L (4.30-5.90) m/uL MCV 101.1 H (80.0-100.0) fL Plt Count 94 L (150-450) k/uL BUN (9-20) mg/dL Glucose (74-99) mg/dL POC Glucose (mg/dL) 139 H (70-110) mg/dL Procalcitonin (0.02-0.09) ng/mL Urine Blood (Negative) Urine RBC (0-5) /hpf Diabetes panel 09/27/23 Range/Units 03:52 Sodium 137 (137-145) mmol/L Potassium 4.8 (3.5-5.1) mmol/L Chloride 103 (98-107) mmol/L Carbon Dioxide 29 (22-30) mmol/L BUN 23 H (9-20) mg/dL Creatinine 1.00 (0.66-1.25) mg/dL Glucose 165 H (74-99) mg/dL Calcium 9.4 (8.4-10.2) mg/dL AST 31 (17-59) U/L ALT 30 (4-49) U/L Alkaline Phosphatase 66 (38-126) U/L Total Protein 7.6 (6.3-8.2) g/dL Albumin 4.2 (3.5-5.0) g/dL Calcium panel 09/27/23 Range/Units 03:52 Calcium 9.4 (8.4-10.2) mg/dL Albumin 4.2 (3.5-5.0) g/dL Pituitary panel 09/27/23 Range/Units 03:52 Sodium 137 (137-145) mmol/L Potassium 4.8 (3.5-5.1) mmol/L Chloride 103 (98-107) mmol/L Carbon Dioxide 29 (22-30) mmol/L BUN 23 H (9-20) mg/dL Creatinine 1.00 (0.66-1.25) mg/dL Glucose 165 H (74-99) mg/dL Calcium 9.4 (8.4-10.2) mg/dL Adrenal panel 09/27/23 Range/Units 03:52 Sodium 137 (137-145) mmol/L Potassium 4.8 (3.5-5.1) mmol/L Chloride 103 (98-107) mmol/L Carbon Dioxide 29 (22-30) mmol/L BUN 23 H (9-20) mg/dL Creatinine 1.00 (0.66-1.25) mg/dL Glucose 165 H (74-99) mg/dL Calcium 9.4 (8.4-10.2) mg/dL Total Bilirubin 0.5 (0.2-1.3) mg/dL AST 31 (17-59) U/L ALT 30 (4-49) U/L Alkaline Phosphatase 66 (38-126) U/L Total Protein 7.6 (6.3-8.2) g/dL Albumin 4.2 (3.5-5.0) g/dL - Imaging CT scan - abdomen: report reviewed, image reviewed CT scan - pelvis: report reviewed, image reviewed Assessment and Plan Assessment: Impression: gross hematuria of indetermionate etiology, possible uti Plan: The patient will need a cysto as an op. I will arrange for fu for this.
--- NOTE | 2023-09-27 15:44 | P.HPIM ---
History of Present Illness H&P Date: 09/27/23 Chief Complaint: Increased confusion, hematuria This is a 63-year-old gentleman past medical history significant for recent IP admission for acute COPD exacerbation, atelectasis and left lower lung pneumonia , discharged on 09/10/2023, former nicotine dependence, hypertension, hyperlipidemia, diabetes mellitus, CVA-mostly resides in a wheelchair or bed, presented to the ER with increasing altered mental status changes, hematuria of unknown etiology, UA reported negative leukocytes, 3 WBCs, negative nitrates, 31 RBCs, large blood, urine culture pending. Denies flank or back pain. Denies abdominal pain. Reports positive bowel movement daily. Chest x-ray reported slight left basilar opacity. Afebrile, normal WBC, maintaining O2 sats in the 90s on room air. Hemoglobin 13.8, platelets 94, INR 0.9, electrolytes within normal limits, BUN 23, creatinine 1, glucose 160. Viral screening negative. patient's significant other at the bedside reports that he had productive cough with "colored sputum" , chills and sweats started over this past weekend. Brain CT reported nonacute. Troponin negative x 1, EKG reported sinus bradycardia. Review of Systems ROS Other: All systems not noted in ROS Statement are negative. ROS Statement: Those systems with pertinent positive or pertinent negative responses have been documented in the HPI. Past Medical History Past Medical History: COPD, CVA/TIA, Diabetes Mellitus, Hyperlipidemia, Hypertension, Memory Impairment, Myocardial Infarction ([place]), Prostate Disorder, Seizure Disorder, Skin Disorder Additional Past Medical History / Comment(s): duodenal ulcer, pain and numbness cyrus legs and feet,pain pump in back, anemia. TIA X3, HEPATITIS C PAST HISTORY, LAST SEIZURE 2012,hiatal hernia Last Myocardial Infarction Date:: POSSIBLE [place] 2012 History of Any Multi-Drug Resistant Organisms: None Reported Past Surgical History: Appendectomy, Back Surgery, Heart Catheterization, Orthopedic Surgery Additional Past Surgical History / Comment(s): titanium lyn in lt leg, skin graph to rt 1st and middle finger, lt eardum replaced, cyrus. foot surgery to arch, cataract surgery bilateral with implant,skin graft left leg Past Anesthesia/Blood Transfusion Reactions: No Reported Reaction Past Psychological History: Anxiety, Depression Smoking Status: Former smoker Past Alcohol Use History: None Reported Past Drug Use History: None Reported - Past Family History Mother Family Medical History: Diabetes Mellitus, Pulmonary Embolus Father Additional Family Medical History / Comment(s): Father had pain problems/hallucinations. He committed suicide. Medications and Allergies Home Medications Medication Instructions Recorded Confirmed Type Albuterol Sulfate [Proair Hfa] 2 puff INHALATION RT-QID PRN 10/22/20 09/27/23 History Ferrous Sulfate [Iron (65 MG 325 mg PO DAILY 12/10/20 09/27/23 History Elemental)] Clopidogrel [Plavix] 75 mg PO HS 06/30/21 09/27/23 History Primidone [Mysoline] 50 mg PO HS 06/30/21 09/27/23 History Escitalopram [Lexapro] 20 mg PO HS 02/23/23 09/27/23 History Rosuvastatin Calcium [Crestor] 40 mg PO HS 03/14/23 09/27/23 History Acetaminophen Tab [Tylenol] 325 mg PO Q6HR PRN tab 03/16/23 09/27/23 Rx Lacosamide [Vimpat] 200 mg PO BID #6 tab 03/16/23 09/27/23 Rx Aspirin EC [Ecotrin Low Dose] 81 mg PO DAILY 05/22/23 09/27/23 History INSULIN LISPRO (HumaLOG) [humaLOG] See Protocol SQ ACHS 05/22/23 09/27/23 History Multivitamins, Thera [Multivitamin 1 tab PO DAILY 05/22/23 09/27/23 History (formulary)] Insulin Detemir [Levemir Flexpen] 48 units SQ DAILY 06/15/23 09/27/23 History Lactulose [Cephulac] 20 gm PO TID 09/08/23 09/27/23 History amLODIPine [Norvasc] 5 mg PO DAILY 09/08/23 09/27/23 History Budesonide-Formot 160-4.5 Mcg 2 puff INHALATION RT-BID #1 each 09/10/23 09/27/23 Rx [Symbicort 160-4.5 Mcg Inhaler] Ipratropium-Albuterol Nebulize 3 ml INHALATION RT-QID PRN #120 09/10/23 09/27/23 Rx [Duoneb 0.5 mg-3 mg/3 ml Soln] each Cephalexin [Keflex] 500 mg PO Q6HR #28 cap 09/13/23 09/27/23 Rx Bisoprolol-Hctz 5-6.25 mg [Ziac 1 tab PO DAILY 09/27/23 09/27/23 History 5-6.25 MG] Allergies Allergy/AdvReac Type Severity Reaction Status Date / Time morphine AdvReac Nausea & Verified 09/27/23 07:49 Vomiting Physical Exam Vitals: Vital Signs Temp Pulse Resp BP Pulse Ox 09/27/23 06:37 52 L 18 139/81 93 L 09/27/23 05:50 53 L 18 148/74 96 09/27/23 03:53 55 L 18 159/77 96 09/27/23 03:12 53 L 18 148/67 95 09/26/23 22:38 98 F 53 L 16 124/79 96 Intake and Output 09/26/23 09/27/23 09/27/23 22:59 06:59 14:59 Other: Weight 90.718 kg General: Alert and oriented 3, sitting up on stretcher, no acute distress Head: atraumatic normocephalic. Eyes PERRL, EOMI intact, mucous membranes moist Respiratory: Unlabored, equal air entry, essentially clear, no rhonchi, crackles or wheezes noted Cardiovascular: Regular rate and rhythm Abdominal: Soft and nondistended, nontender,no guarding or rebound. Neuroogic: CN II-XII intact, no focal deficits. Prior [id number]. Skin: warm dry and intact with normal color Results CBC & Chem 7: 09/27/23 04:02 09/27/23 03:52 Labs: Abnormal Lab Results - Last 24 Hours (Table) 09/27/23 09/27/23 09/27/23 Range/Units 01:39 03:52 03:52 RBC (4.30-5.90) m/uL MCV (80.0-100.0) fL Plt Count (150-450) k/uL BUN 23 H (9-20) mg/dL Glucose 165 H (74-99) mg/dL POC Glucose (mg/dL) (70-110) mg/dL Procalcitonin 0.13 H (0.02-0.09) ng/mL Urine Blood Large H (Negative) Urine RBC 31 H (0-5) /hpf 09/27/23 09/27/23 09/27/23 Range/Units 04:02 08:49 12:59 RBC 4.07 L (4.30-5.90) m/uL MCV 101.1 H (80.0-100.0) fL Plt Count 94 L (150-450) k/uL BUN (9-20) mg/dL Glucose (74-99) mg/dL POC Glucose (mg/dL) 139 H 186 H (70-110) mg/dL Procalcitonin (0.02-0.09) ng/mL Urine Blood (Negative) Urine RBC (0-5) /hpf Assessment and Plan Assessment: Hematuria, etiology unclear, possibly related to acute UTI-UA doubtful, urine culture pending. 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 Urology consulted secondary to hematuria. Urine culture, procalcitonin pending. Aggressive pulmonary toileting with nebulized bronchodilators, IV steroids and Symbicort. PPI added for GI prophylaxis. The impression and plan of care has been dictated as directed. : I performed a history and examination of this patient, discussed the same with the dictator. I agree with the dictator's note ,documented as a scribe. Any additional findings or plans will be noted.
[2023-09-27] MEDS: amLODIPine 5 MG TAB PO SCH (16:36)
[2023-09-27] MEDS: BISOPROLOL-HCTZ 5-6.25 MG 1 EACH TAB PO SCH (16:36)
[2023-09-27] MEDS: ASPIRIN 81 MG PO SCH (16:36)
[2023-09-27] MEDS: PANTOPRAZOLE 40 MG/10 ML VIAL IVP SCH (16:36)
[2023-09-27] MEDS: INSULIN ASPART (NovoLOG) 100 UNIT/ML VIAL SQ SCH ×2 (16:39→18:19)
[2023-09-27 17:04] LABS: Glucose,Whole Blood 177 mg/dL (70-110)
[2023-09-27] MEDS: SYMBICORT 160-4.5 MCG INHALER INHALATION SCH (20:30)
[2023-09-27] MEDS: IPRATROPIUM-ALBUTEROL 3 ML NEB INHALATION PRN (20:30)
[2023-09-27 21:13] LABS: Glucose,Whole Blood 205 mg/dL (70-110)
[2023-09-27] MEDS: ESCITALOPRAM 20 MG TAB PO SCH (21:15)
[2023-09-27] MEDS: CLOPIDOGREL 75 MG TAB PO SCH (21:15)
[2023-09-27] MEDS: LACOSAMIDE 50 MG TABLET PO SCH (21:43)
[2023-09-28 07:09] LABS: Glucose,Whole Blood 115 mg/dL (70-110)
[2023-09-28 07:59] VITALS: PULSE 52
[2023-09-28] MEDS: FERROUS SULFATE 325 MG TAB PO SCH (08:42)
[2023-09-28] MEDS: ACETAMINOPHEN TAB 325 MG TAB PO PRN (08:46)
--- NOTE | 2023-09-28 10:57 | P.DS ---
Providers Date of admission: 09/27/23 05:56 Expected date of discharge: 09/28/23 Attending physician: Dmitriy Liu MD Consults: 09/27/23 05:59 Consult Physician Routine Consulting Provider: Cha Burnett Consult Reason/Comments: basilar opacity Do you want consulting provider notified?: Yes 09/27/23 09:32 Consult Physician Routine Consulting Provider: Eladio Hoffmann Consult Reason/Comments: hematuria Do you want consulting provider notified?: Yes Primary care physician: Dmitriy Liu MD Hospital Course: Final Diagnoses: Hematuria, etiology unclear, possibly related to acute UTI-UA doubtful Altered mental status, increased confusion, acute metabolic encephalopathy secondary to the above Atelectasis Recently discharged on 09/10/2023 related to acute COPD exacerbation, atelectasis and acute left lower lobe pneumonia COPD Chronic Thrombocytopenia, 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 Diabetes mellitus type 2, hemoglobin A1c 7.2 Hypertension History of seizure disorder History of CVA with memory impairment Anxiety/depression Former nicotine dependence Chronic pain syndrome Hospital course:This is a 63-year-old gentleman past medical history significant for recent IP admission for acute COPD exacerbation, atelectasis and left lower lung pneumonia , discharged on 09/10/2023, former nicotine dependence, hypertension, hyperlipidemia, diabetes mellitus, CVA-mostly resides in a wheelchair or bed, presented to the ER with increasing altered mental status changes, hematuria of unknown etiology, UA reported negative leukocytes, 3 WBCs, negative nitrates, 31 RBCs, large blood, urine culture pending. Denies flank or back pain. Denies abdominal pain. Reports positive bowel movement daily. Chest x-ray reported slight left basilar opacity. Afebrile, normal WBC, maintaining O2 sats in the 90s on room air. Hemoglobin 13.8, platelets 94, INR 0.9, electrolytes within normal limits, BUN 23, creatinine 1, glucose 160. Viral screening negative. patient's significant other at the bedside reports that he had productive cough with "colored sputum" , chills and sweats started over this past weekend. Brain CT reported nonacute. Troponin negative x 1, EKG reported sinus bradycardia. Evaluated by urology with outpatient cystoscopy recommended. Significant clinical improvement. Hematuria subsided. Feels better. Denies chills, sweats or fever. Reports occasional cough with minimal phlegm. Denies chest pain, palpitations or shortness of breath. Afebrile. Blood sugars better controlled this morning. Labs pending. Patient will be discharged home today in a stable condition with guarded prognosis pending final DC recommendations and clearance per pulmonary. The impression and plan of care has been dictated as directed. : I performed a history and examination of this patient, discussed the same with the dictator. I agree with the dictator's note ,documented as a scribe. Any additional findings or plans will be noted. Patient Condition at Discharge: Stable Plan - Discharge Summary Discharge Rx Participant: No New Discharge Prescriptions: Continue Albuterol Sulfate [Proair Hfa] 2 puff INHALATION RT-QID PRN PRN Reason: Shortness Of Breath Ferrous Sulfate [Iron (65 MG Elemental)] 325 mg PO DAILY Primidone [Mysoline] 50 mg PO HS Acetaminophen Tab [Tylenol] 325 mg PO Q6HR PRN tab PRN Reason: Fever And/ Or Pain Lacosamide [Vimpat] 200 mg PO BID #6 tab INSULIN LISPRO (HumaLOG) [humaLOG] See Protocol SQ ACHS amLODIPine [Norvasc] 5 mg PO DAILY Budesonide-Formot 160-4.5 Mcg [Symbicort 160-4.5 Mcg Inhaler] 2 puff INHALATION RT-BID #1 each Cephalexin [Keflex] 500 mg PO Q6HR #28 cap Clopidogrel [Plavix] 75 mg PO HS Escitalopram [Lexapro] 20 mg PO HS Rosuvastatin Calcium [Crestor] 40 mg PO HS Aspirin EC [Ecotrin Low Dose] 81 mg PO DAILY Multivitamins, Thera [Multivitamin (formulary)] 1 tab PO DAILY Insulin Detemir [Levemir Flexpen] 48 units SQ DAILY Lactulose [Cephulac] 20 gm PO TID Ipratropium-Albuterol Nebulize [Duoneb 0.5 mg-3 mg/3 ml Soln] 3 ml INHALATION RT-QID PRN #120 each PRN Reason: Shortness Of Breath Bisoprolol-Hctz 5-6.25 mg [Ziac 5-6.25 MG] 1 tab PO DAILY Discharge Medication List Albuterol Sulfate [Proair Hfa] 2 puff INHALATION RT-QID PRN 10/22/20 [History] Ferrous Sulfate [Iron (65 MG Elemental)] 325 mg PO DAILY 12/10/20 [History] Clopidogrel [Plavix] 75 mg PO HS 06/30/21 [History] Primidone [Mysoline] 50 mg PO HS 06/30/21 [History] Escitalopram [Lexapro] 20 mg PO HS 02/23/23 [History] Rosuvastatin Calcium [Crestor] 40 mg PO HS 03/14/23 [History] Acetaminophen Tab [Tylenol] 325 mg PO Q6HR PRN tab 03/16/23 [Rx] Lacosamide [Vimpat] 200 mg PO BID #6 tab 03/16/23 [Rx] Aspirin EC [Ecotrin Low Dose] 81 mg PO DAILY 05/22/23 [History] INSULIN LISPRO (HumaLOG) [humaLOG] See Protocol SQ ACHS 05/22/23 [History] Multivitamins, Thera [Multivitamin (formulary)] 1 tab PO DAILY 05/22/23 [History] Insulin Detemir [Levemir Flexpen] 48 units SQ DAILY 06/15/23 [History] Lactulose [Cephulac] 20 gm PO TID 09/08/23 [History] amLODIPine [Norvasc] 5 mg PO DAILY 09/08/23 [History] Budesonide-Formot 160-4.5 Mcg [Symbicort 160-4.5 Mcg Inhaler] 2 puff INHALATION RT-BID #1 each 09/10/23 [Rx] Ipratropium-Albuterol Nebulize [Duoneb 0.5 mg-3 mg/3 ml Soln] 3 ml INHALATION RT-QID PRN #120 each 09/10/23 [Rx] Cephalexin [Keflex] 500 mg PO Q6HR #28 cap 09/13/23 [Rx] Bisoprolol-Hctz 5-6.25 mg [Ziac 5-6.25 MG] 1 tab PO DAILY 09/27/23 [History] Follow up Appointment(s)/Referral(s): Dmitriy Liu MD [Primary Care Provider] - 10/04/23 3:30 pm (appointment at [facility] office w/ A Jose RESEARCH PHYSIOLOGIST) Jax Remy MD [STAFF PHYSICIAN] - 2 Weeks (cystoscopy )
[2023-09-28 11:05] LABS: HCT 36.4 % (39.0-53.0); HGB 11.9 gm/dL (13.0-17.5); MCH 33.7 pg (25.0-35.0); MCHC 32.8 g/dL (31.0-37.0); MCV 102.8 fL (80.0-100.0); Macrocytosis Slight; Mean Platelet Volume 7.5; RBC 3.54 m/uL (4.30-5.90); RDW 13.4 % (11.5-15.5); WBC 3.7 k/uL (3.8-10.6)
[2023-09-28 11:12] LABS: Platelet Count 65 k/uL (150-450)
[2023-09-28 11:28] LABS: African American GFR (CKD) >90 (>60 ml/min/1.73 sqM); Anion Gap 6 mmol/L; Blood Urea Nitrogen 15 mg/dL (9-20); Calcium 8.9 mg/dL (8.4-10.2); Carbon Dioxide 26 mmol/L (22-30); Chloride 107 mmol/L (98-107); Glucose 114 mg/dL (74-99); Non-African American GFR(CKD) >90 (>60 ml/min/1.73 sqM); Sodium 139 mmol/L (137-145)
[2023-09-28 11:49] LABS: Glucose,Whole Blood 94 mg/dL (70-110)
--- NOTE | 2023-09-28 12:58 | P.PN ---
Subjective Progress Note Date: 09/28/23 This is a 63-year-old male patient with a known history of hypertension, hyperlipidemia, diabetes mellitus, chronic obstructive pulmonary disease, former smoker,, CVA and is mainly in a wheelchair or in bed. He was brought to the emergency room early this morning after developing hematuria and altered mental status. This x-ray reveals a left basilar opacity. CT scan of the brain revealed no evidence of acute intracranial pathology. EKG reveals no acute ST or T wave abnormalities. White count 10.7. Hemoglobin 13.8. Platelets 94,000. Sodium 137. Potassium 4.8. Bicarb 29. BUN 23. Creatinine 1.00. Glucose 165. Viral screen was negative. Urinalysis with large amount of blood and RBCs. He is seen today in consultation in the emergency department. He is awake and alert in no acute distress. He is currently maintaining good O2 saturations in the 90s on room air. He is afebrile. Denies any worsening shortness of breath, cough or congestion. Suspect atelectasis of the left lung base. The patient is seen today September 28, 2023 in follow-up on the regular medical floor. He is currently sitting up in bed. Awake and alert in no acute distress. He denies any worsening shortness of breath, cough or congestion. He is maintaining good O2 saturations in the 90s on room air. His procalcitonin was 0.13. Chest x-ray revealed some left lower lobe atelectasis. He has been treated with ceftriaxone. Continue on Symbicort and DuoNeb inhalations. White count 3.7. Hemoglobin 11.9. Platelets 65,000. Sodium 139. Potassium 4.0. Bicarb 26. BUN 50. Creatinine 0.87. Glucose 114. Objective - Vital Signs Vital signs: Vital Signs Temp 98.1 F 09/28/23 07:39 Pulse 52 L 09/28/23 08:30 Resp 14 09/28/23 07:40 BP 157/75 09/28/23 07:39 Pulse Ox 95 09/28/23 07:39 FiO2 Intake & Output 09/27/23 09/28/23 09/28/23 18:59 06:59 18:59 Output Total 700 500 Balance -700 -500 Weight 90.718 kg Output: Urine 700 500 Other: Voiding Method External Catheter External Catheter - Exam GENERAL EXAM: Alert, 63-year-old male, resting comfortably in bed, on room air, comfortable in no apparent distress. HEAD: Normocephalic. EYES: Normal reaction of pupils, equal size. NOSE: Clear with pink turbinates. THROAT: No erythema or exudates. NECK: No masses, no JVD. CHEST: No chest wall deformity. LUNGS: Equal air entry with no crackles, wheeze, rhonchi or dullness. CVS: S1 and S2 normal with no audible murmur, regular rhythm. ABDOMEN: No hepatosplenomegaly, normal bowel sounds, no guarding or rigidity. SPINE: No scoliosis or deformity SKIN: No rashes CENTRAL NERVOUS SYSTEM: Deficits from previous CVA, tone is normal in all 4 extremities. EXTREMITIES: Weakness, wheelchair-bound, there is no peripheral edema. No clubbing, no cyanosis. Peripheral pulses are intact. - Labs CBC & Chem 7: 09/28/23 10:32 09/28/23 10:32 Labs: Abnormal Lab Results - Last 24 Hours (Table) 09/27/23 09/27/23 09/27/23 Range/Units 12:59 17:03 21:12 WBC (3.8-10.6) k/uL RBC (4.30-5.90) m/uL Hgb (13.0-17.5) gm/dL Hct (39.0-53.0) % MCV (80.0-100.0) fL Plt Count (150-450) k/uL Glucose (74-99) mg/dL POC Glucose (mg/dL) 186 H 177 H 205 H (70-110) mg/dL 09/28/23 09/28/23 09/28/23 Range/Units 07:08 10:32 10:32 WBC 3.7 L (3.8-10.6) k/uL RBC 3.54 L (4.30-5.90) m/uL Hgb 11.9 L (13.0-17.5) gm/dL Hct 36.4 L (39.0-53.0) % MCV 102.8 H (80.0-100.0) fL Plt Count 65 L (150-450) k/uL Glucose 114 H (74-99) mg/dL POC Glucose (mg/dL) 115 H (70-110) mg/dL Assessment and Plan Assessment: Altered mental status of unclear etiology, possibly secondary to urinary tract infection Hematuria of unclear etiology Atelectasis of the left lower lobe Chronic obstructive pulmonary disease Former smoker Hypertension Hyperlipidemia History of CVA History of seizures Diabetes mellitus Plan: The patient was seen and evaluated Labs and medications reviewed Currently stable and on room air Continue home Symbicort, DuoNeb inhalations Cleared for discharge from the pulmonary standpoint I have personally seen and examined the patient, performed the documentation and the assessment and plan as written. Number of minutes spent on the visit: 10.
[2023-09-28 13:13] VITALS: BP 150/67; RESP 16; TEMP 98.5
== END 2023-09-28 13:50 | disposition home health service (06) ==
LOC: EC 22:37 → INTOOBSV 09-27 05:56 → 5NMEDONC 09-27 05:56
PROVIDERS: ADMIT Family Medicine; ATTEND Family Medicine
DX: R31.0 Gross hematuria (principal); G93.41 Metabolic encephalopathy; J98.11 Atelectasis; J44.9 Chronic obstructive pulmonary disease, unspecified; E11.9 Type 2 diabetes mellitus without complications; E78.5 Hyperlipidemia, unspecified; I10 Essential (primary) hypertension; F32.A Depression, unspecified; F41.9 Anxiety disorder, unspecified; I25.2 Old myocardial infarction; K74.60 Unspecified cirrhosis of liver; D69.6 Thrombocytopenia, unspecified; G40.909 Epilepsy, unspecified, not intractable, without status epilepticus; G89.4 Chronic pain syndrome; B18.2 Chronic viral hepatitis C; Z11.52 Encounter for screening for COVID-19; Z86.73 Personal history of transient ischemic attack (TIA), and cerebral infarction without residual deficits; Z87.891 Personal history of nicotine dependence; Z79.82 Long term (current) use of aspirin; Z79.4 Long term (current) use of insulin; Z79.899 Other long term (current) drug therapy; Z79.02 Long term (current) use of antithrombotics/antiplatelets; Z79.51 Long term (current) use of inhaled steroids; Z88.5 Allergy status to narcotic agent
CPT/HCPCS: 96376 ×2; 96367; 96365; 96375; 99285; 36415; 94640 ×3; 93005; 80053; 80048; 83605; 83735; 84484; 85025; 85027; 85610; 85730; 81003; 81001; 84145; 87636; 71046; 70450; G0378 ×2; J0456; J0696 ×2; C9113 ×2

== ENCOUNTER 2023-10-12 13:55 | Inpatient (IN) | payer OTHER ==
--- NOTE | 2023-10-12 14:49 | ED ---
Weakness HPI - General Source: patient, EMS, RN notes reviewed Mode of arrival: EMS Limitations: no limitations <Ashleigh Lee - Last Filed: 10/12/23 14:47> - General Source: patient, family, RN notes reviewed Limitations: no limitations <Balaji Fernandez - Last Filed: 10/12/23 19:54> - General Chief complaint: Weakness Stated complaint: Weakness Time Seen by Provider: 10/12/23 14:30 - History of Present Illness Initial comments: Quick [id number] male with history of COPD presenting with weakness increasing over the past 3 days. Patient is with daughter and she reports that he has been in the ER several times over the past month. She reports patient is lethargic and his oxygen has been intermittently dropping. (Ashleigh Lee) Patient is a 63-year-old male presenting to the emergency department with family with concerns for drowsiness. Patient has been more drowsy fatigued and confused over the past few days. Patient has been having mild cough and congestion. Patient does not walk secondary to wheelchair-bound secondary to previous strokes. Majority of history comes from family as patient is a very poor historian (Balaji Fernandez) - Related Data Home Medications Medication Instructions Recorded Confirmed Albuterol Sulfate [Proair Hfa] 2 puff INHALATION RT-QID PRN 10/22/20 09/27/23 Ferrous Sulfate [Iron (65 MG 325 mg PO DAILY 12/10/20 09/27/23 Elemental)] Clopidogrel [Plavix] 75 mg PO HS 06/30/21 09/27/23 Primidone [Mysoline] 50 mg PO HS 06/30/21 09/27/23 Escitalopram [Lexapro] 20 mg PO HS 02/23/23 09/27/23 Rosuvastatin Calcium [Crestor] 40 mg PO HS 03/14/23 09/27/23 Aspirin EC [Ecotrin Low Dose] 81 mg PO DAILY 05/22/23 09/27/23 INSULIN LISPRO (HumaLOG) [humaLOG] See Protocol SQ ACHS 05/22/23 09/27/23 Multivitamins, Thera [Multivitamin 1 tab PO DAILY 05/22/23 09/27/23 (formulary)] Insulin Detemir [Levemir Flexpen] 48 units SQ DAILY 06/15/23 09/27/23 Lactulose [Cephulac] 20 gm PO TID 09/08/23 09/27/23 amLODIPine [Norvasc] 5 mg PO DAILY 09/08/23 09/27/23 Bisoprolol-Hctz 5-6.25 mg [Ziac 1 tab PO DAILY 09/27/23 09/27/23 5-6.25 MG] Previous Rx's Medication Instructions Recorded Acetaminophen Tab [Tylenol] 325 mg PO Q6HR PRN tab 03/16/23 Lacosamide [Vimpat] 200 mg PO BID #6 tab 03/16/23 Budesonide-Formot 160-4.5 Mcg 2 puff INHALATION RT-BID #1 each 09/10/23 [Symbicort 160-4.5 Mcg Inhaler] Ipratropium-Albuterol Nebulize 3 ml INHALATION RT-QID PRN #120 09/10/23 [Duoneb 0.5 mg-3 mg/3 ml Soln] each Cephalexin [Keflex] 500 mg PO Q6HR #28 cap 09/13/23 Allergies Allergy/AdvReac Type Severity Reaction Status Date / Time morphine AdvReac Nausea & Verified 09/27/23 07:49 Vomiting Review of Systems ROS Other: All systems not noted in ROS Statement are negative. <Ashleigh Lee - Last Filed: 10/12/23 14:47> ROS Other: All systems not noted in ROS Statement are negative. Constitutional: Denies: fever Eyes: Denies: eye pain ENT: Reports: congestion. Denies: ear pain Respiratory: Reports: cough Cardiovascular: Denies: chest pain Endocrine: Reports: fatigue Gastrointestinal: Denies: abdominal pain Neurological: Reports: confusion <Balaji Fernandez - Last Filed: 10/12/23 19:54> ROS Statement: Those systems with pertinent positive or pertinent negative responses have been documented in the HPI. Past Medical History Past Medical History: COPD, CVA/TIA, Diabetes Mellitus, Hyperlipidemia, Hypertension, Memory Impairment, Myocardial Infarction ([place]), Prostate Disorder, Seizure Disorder, Skin Disorder Additional Past Medical History / Comment(s): duodenal ulcer, pain and numbness cyrus legs and feet,pain pump in back, anemia. TIA X3, HEPATITIS C PAST HISTORY, LAST SEIZURE 2012,hiatal hernia Last Myocardial Infarction Date:: POSSIBLE [place] 2012 History of Any Multi-Drug Resistant Organisms: None Reported Past Surgical History: Appendectomy, Back Surgery, Heart Catheterization, Orthopedic Surgery Additional Past Surgical History / Comment(s): titanium lyn in lt leg, skin graph to rt 1st and middle finger, lt eardum replaced, cyrus. foot surgery to arch, cataract surgery bilateral with implant,skin graft left leg Past Anesthesia/Blood Transfusion Reactions: No Reported Reaction Past Psychological History: Anxiety, Depression Smoking Status: Former smoker Past Alcohol Use History: None Reported Past Drug Use History: None Reported - Past Family History Mother Family Medical History: Diabetes Mellitus, Pulmonary Embolus Father Additional Family Medical History / Comment(s): Father had pain problems/hallucinations. He committed suicide. <Ashleigh Lee - Last Filed: 10/12/23 14:47> General Exam Limitations: no limitations <Ashleigh Lee - Last Filed: 10/12/23 14:47> Limitations: no limitations General appearance: alert, in no apparent distress Head exam: Present: atraumatic Eye exam: Present: normal appearance, PERRL, EOMI ENT exam: Present: normal oropharynx Neck exam: Present: normal inspection. Absent: tenderness, meningismus Respiratory exam: Present: wheezes Cardiovascular Exam: Present: regular rate, normal rhythm GI/Abdominal exam: Present: soft. Absent: tenderness Extremities exam: Present: normal inspection Neurological exam: Present: alert Expanded Neurological exam: Present: protecting the airway Patient oriented to: Present: person, place. Absent: time Cranial nerves: EOM's Intact: Normal Motor strength exam: RUE: 5, LUE: 5 Eye Response: (4) open spontaneously Motor Response: (6) obeys commands Verbal Response: (4) confused conversation Psychiatric exam: Present: flat affect Skin exam: Present: normal color <Balaji Fernandez - Last Filed: 10/12/23 19:54> - General Exam Comments Initial Comments: Visual Physical Exam Vital signs reviewed General: Well-appearing, nontoxic, no acute distress. Head: Normocephalic, atraumatic Eyes: PERRLA, EOMI ENT: Airway patent Chest: Nonlabored breathing Skin: No visual rash, normal skin tone Musculoskeletal: No gross abnormalities (Ashleigh Lee) Course Vital Signs 10/12/23 10/12/23 14:31 18:04 Temperature 98.0 F Pulse Rate 54 L 53 L Respiratory 16 20 Rate Blood Pressure 163/76 154/83 O2 Sat by Pulse 96 95 Oximetry EKG Findings - EKG Results: EKG: interpreted by ERMD (Septal Q waves), sinus rhythm, normal axis, normal ST/T EKG shows: bradycardia <Balaji Fernandez - Last Filed: 10/12/23 19:54> Procedures - ABG Interpretation Ph: 7.419 PCO2: 45.9 PO2: 67 Bicarbonate: 29 <Balaji Fernandez - Last Filed: 10/12/23 19:54> Medical Decision Making <Ashleigh Lee - Last Filed: 10/12/23 14:47> - Lab Data Result diagrams: 10/12/23 13:07 10/12/23 15:13 <Balaji Fernandez - Last Filed: 10/12/23 19:54> - Medical Decision Making I completed the quick note portion of this chart signed Ashleigh Lee PA-C (Ashleigh Lee) Was pt. sent in by a medical professional or institution (Dr. PA, [employer], urgent care, hospital, or [facility]...) When possible be specific @ -No Did you speak to anyone other than the patient for history (EMS, parent, family, police, friend...)? What history was obtained from this source @ - presides majority of history as patient is a poor historian Did you review nursing and triage notes (agree or disagree)? Why? @ -I reviewed and agree with nursing and triage notes Were old charts reviewed (outside hosp., previous admission, EMS record, old EKG, old radiological studies, urgent care reports/EKG's, [facility] records)? Report findings @ -Previous admission reviewed Differential Diagnosis (chest pain, altered mental status, abdominal pain women, abdominal pain men, vaginal bleeding, weakness, fever, dyspnea, syncope, headache, dizziness, GI bleed, back pain, seizure, CVA, palpatations, mental health, musculoskeletal)? @ -Differential Altered Mental Status: Hypoglycemia, DKA, hypercapnia, ETOH, overdose, CO poisoning, trauma, myxedema coma, HTN encephalopathy, infection, encephalitis, psychosis, intercranial hemorrhage, hepatic encephalopathy, meningitis, CVA, this is not meant to be an all-inclusive list EKG interpreted by me (3pts min.). @ -As above X-rays interpreted by me (1pt min.). @ -This x-ray shows CT interpreted by me (1pt min.). @ -CT scan of the brain shows old infarct. NPH U/S interpreted by me (1pt. min.). @ -None done What testing was considered but not performed or refused? (CT, X-rays, U/S, labs)? Why? @ -None What meds were considered but not given or refused? Why? @ -None Did you discuss the management of the patient with other professionals (professionals i.e. , PA, [employer], lab, RT, psych nurse, elementary school social worker, brake lining finisher, teacher, emergency communications officer, case aide)? Give summary @ -Patient was is discussed with Dr. Liu who will admit his pain Was smoking cessation discussed for >3mins.? @ -No Was critical care preformed (if so, how long)? @ -No Were there social determinants of health that impacted care today? How? (Homelessness, low income, unemployed, alcoholism, drug addiction, transportation, low edu. Level, literacy, decrease access to med. care, penitentiary, rehab)? @ -No Was there de-escalation of care discussed even if they declined (Discuss DNR or withdrawal of care, Hospice)? DNR status @ -No What co-morbidities impacted this encounter? (DM, HTN, Smoking, COPD, CAD, Cancer, CVA, ARF, Chemo, Hep., AIDS, mental health diagnosis, sleep apnea, morbid obesity)? @ -History of COPD Was patient admitted / discharged? Hospital course, mention meds given and route, prescriptions, significant lab abnormalities, going to OR and other pertinent info. @ -Patient reevaluated without significant change. Patient and family updated on results and plans. Patient will be admitted. Admission orders written. Consult will be placed for neurology. Oxygen will be started. Undiagnosed new problem with uncertain prognosis? @ -No Drug Therapy requiring intensive monitoring for toxicity (Heparin, Nitro, Insulin, Cardizem)? @ -No Were any procedures done? @ -No Diagnosis/symptom? @ -Hypoxia, altered mental status Acute, or Chronic, or Acute on Chronic? @ -Acute, acute Uncomplicated (without systemic symptoms) or Complicated (systemic symptoms)? @ -Default Side effects of treatment? @ -No Exacerbation, Progression, or Severe Exacerbation? @ -No Poses a threat to life or bodily function? How? (Chest pain, [place], [place], pneumonia, PE, COPD, DKA, ARF, appy, cholecystitis, CVA, Diverticulitis, Homicidal, Suicidal, threat to staff... and all critical care pts) @ -No (Balaji Fernandez) - Lab Data Lab Results 10/12/23 10/12/23 10/12/23 Range/Units 13:07 15:13 15:13 WBC 6.0 (3.8-10.6) k/uL RBC 4.11 L (4.30-5.90) m/uL Hgb 14.0 (13.0-17.5) gm/dL Hct 41.4 (39.0-53.0) % MCV 100.8 H (80.0-100.0) fL MCH 34.1 (25.0-35.0) pg MCHC 33.8 (31.0-37.0) g/dL RDW 13.3 (11.5-15.5) % Plt Count 116 L D (150-450) k/uL MPV 8.0 Neutrophils % 67 % Lymphocytes % 17 % Monocytes % 7 % Eosinophils % 5 % Basophils % 1 % Neutrophils # 4.1 (1.3-7.7) k/uL Lymphocytes # 1.0 (1.0-4.8) k/uL Monocytes # 0.4 (0-1.0) k/uL Eosinophils # 0.3 (0-0.7) k/uL Basophils # 0.0 (0-0.2) k/uL PT 10.7 (10.0-12.5) sec INR 1.0 (<1.2) APTT 25.1 (22.0-30.0) sec Sample Site ABG pH (7.35-7.45) ABG pCO2 (35-45) mmHg ABG pO2 (83-108) mmHg ABG HCO3 (21-25) mmol/L ABG Total CO2 (19-24) mmol/L ABG O2 Saturation (94-97) % ABG Base Excess mmol/L Kieran Test FiO2 % Sodium 138 (137-145) mmol/L Potassium 4.5 (3.5-5.1) mmol/L Chloride 103 (98-107) mmol/L Carbon Dioxide 27 (22-30) mmol/L Anion Gap 8 mmol/L BUN 20 (9-20) mg/dL Creatinine 0.83 (0.66-1.25) mg/dL Est GFR (CKD-EPI)AfAm >90 (>60 ml/min/1.73 sqM) Est GFR (CKD-EPI)NonAf >90 (>60 ml/min/1.73 sqM) Glucose 156 H (74-99) mg/dL Plasma Lactic Acid Duane (0.7-2.0) mmol/L Calcium 9.5 (8.4-10.2) mg/dL Total Bilirubin 0.6 (0.2-1.3) mg/dL AST 29 (17-59) U/L ALT 18 (4-49) U/L Alkaline Phosphatase 53 (38-126) U/L Troponin I (0.000-0.034) ng/mL Total Protein 7.8 (6.3-8.2) g/dL Albumin 4.4 (3.5-5.0) g/dL Urine Color Urine Appearance (Clear) Urine pH (5.0-8.0) Ur Specific Banco (1.001-1.035) Urine Protein (Negative) Urine Glucose (UA) (Negative) Urine Ketones (Negative) Urine Blood (Negative) Urine Nitrite (Negative) Urine Bilirubin (Negative) Urine Urobilinogen (<2.0) mg/dL Ur Leukocyte Esterase (Negative) Influenza Type A (PCR) (Not Detectd) Influenza Type B (PCR) (Not Detectd) RSV (PCR) (Not Detectd) SARS-CoV-2 (PCR) (Not Detectd) 10/12/23 10/12/23 10/12/23 Range/Units 15:13 16:03 18:22 WBC (3.8-10.6) k/uL RBC (4.30-5.90) m/uL Hgb (13.0-17.5) gm/dL Hct (39.0-53.0) % MCV (80.0-100.0) fL MCH (25.0-35.0) pg MCHC (31.0-37.0) g/dL RDW (11.5-15.5) % Plt Count (150-450) k/uL MPV Neutrophils % % Lymphocytes % % Monocytes % % Eosinophils % % Basophils % % Neutrophils # (1.3-7.7) k/uL Lymphocytes # (1.0-4.8) k/uL Monocytes # (0-1.0) k/uL Eosinophils # (0-0.7) k/uL Basophils # (0-0.2) k/uL PT (10.0-12.5) sec INR (<1.2) APTT (22.0-30.0) sec Sample Site ABG pH (7.35-7.45) ABG pCO2 (35-45) mmHg ABG pO2 (83-108) mmHg ABG HCO3 (21-25) mmol/L ABG Total CO2 (19-24) mmol/L ABG O2 Saturation (94-97) % ABG Base Excess mmol/L Kieran Test FiO2 % Sodium (137-145) mmol/L Potassium (3.5-5.1) mmol/L Chloride (98-107) mmol/L Carbon Dioxide (22-30) mmol/L Anion Gap mmol/L BUN (9-20) mg/dL Creatinine (0.66-1.25) mg/dL Est GFR (CKD-EPI)AfAm (>60 ml/min/1.73 sqM) Est GFR (CKD-EPI)NonAf (>60 ml/min/1.73 sqM) Glucose (74-99) mg/dL Plasma Lactic Acid Duane 1.3 (0.7-2.0) mmol/L Calcium (8.4-10.2) mg/dL Total Bilirubin (0.2-1.3) mg/dL AST (17-59) U/L ALT (4-49) U/L Alkaline Phosphatase (38-126) U/L Troponin I <0.012 (0.000-0.034) ng/mL Total Protein (6.3-8.2) g/dL Albumin (3.5-5.0) g/dL Urine Color Light Yellow Urine Appearance Clear (Clear) Urine pH 6.5 (5.0-8.0) Ur Specific Banco 1.020 (1.001-1.035) Urine Protein Negative (Negative) Urine Glucose (UA) Negative (Negative) Urine Ketones Negative (Negative) Urine Blood Negative (Negative) Urine Nitrite Negative (Negative) Urine Bilirubin Negative (Negative) Urine Urobilinogen <2.0 (<2.0) mg/dL Ur Leukocyte Esterase Negative (Negative) Influenza Type A (PCR) (Not Detectd) Influenza Type B (PCR) (Not Detectd) RSV (PCR) (Not Detectd) SARS-CoV-2 (PCR) (Not Detectd) 10/12/23 10/12/23 Range/Units 18:29 18:34 WBC (3.8-10.6) k/uL RBC (4.30-5.90) m/uL Hgb (13.0-17.5) gm/dL Hct (39.0-53.0) % MCV (80.0-100.0) fL MCH (25.0-35.0) pg MCHC (31.0-37.0) g/dL RDW (11.5-15.5) % Plt Count (150-450) k/uL MPV Neutrophils % % Lymphocytes % % Monocytes % % Eosinophils % % Basophils % % Neutrophils # (1.3-7.7) k/uL Lymphocytes # (1.0-4.8) k/uL Monocytes # (0-1.0) k/uL Eosinophils # (0-0.7) k/uL Basophils # (0-0.2) k/uL PT (10.0-12.5) sec INR (<1.2) APTT (22.0-30.0) sec Sample Site Right Radial ABG pH 7.42 (7.35-7.45) ABG pCO2 46 H (35-45) mmHg ABG pO2 67 L (83-108) mmHg ABG HCO3 30 H (21-25) mmol/L ABG Total CO2 31 H (19-24) mmol/L ABG O2 Saturation 94.3 (94-97) % ABG Base Excess 5.2 mmol/L Kieran Test Yes FiO2 21 % Sodium (137-145) mmol/L Potassium (3.5-5.1) mmol/L Chloride (98-107) mmol/L Carbon Dioxide (22-30) mmol/L Anion Gap mmol/L BUN (9-20) mg/dL Creatinine (0.66-1.25) mg/dL Est GFR (CKD-EPI)AfAm (>60 ml/min/1.73 sqM) Est GFR (CKD-EPI)NonAf (>60 ml/min/1.73 sqM) Glucose (74-99) mg/dL Plasma Lactic Acid Duane (0.7-2.0) mmol/L Calcium (8.4-10.2) mg/dL Total Bilirubin (0.2-1.3) mg/dL AST (17-59) U/L ALT (4-49) U/L Alkaline Phosphatase (38-126) U/L Troponin I (0.000-0.034) ng/mL Total Protein (6.3-8.2) g/dL Albumin (3.5-5.0) g/dL Urine Color Urine Appearance (Clear) Urine pH (5.0-8.0) Ur Specific Banco (1.001-1.035) Urine Protein (Negative) Urine Glucose (UA) (Negative) Urine Ketones (Negative) Urine Blood (Negative) Urine Nitrite (Negative) Urine Bilirubin (Negative) Urine Urobilinogen (<2.0) mg/dL Ur Leukocyte Esterase (Negative) Influenza Type A (PCR) Not Detected (Not Detectd) Influenza Type B (PCR) Not Detected (Not Detectd) RSV (PCR) Not Detected (Not Detectd) SARS-CoV-2 (PCR) Not Detected (Not Detectd) Disposition <Ashleigh Lee - Last Filed: 10/12/23 14:47> Is patient prescribed a controlled substance at d/c from ED?: No Time of Disposition: 19:54 <Balaji Fernandez - Last Filed: 10/12/23 19:54> Clinical Impression: Hypoxia, Altered mental status Disposition: ADMITTED IP TO THIS HOSP Referrals: Dmitriy Liu MD [Primary Care Provider] - 1-2 days
[2023-10-12 15:41] LABS: ALT 18 U/L (4-49); AST 29 U/L (17-59); African American GFR (CKD) >90 (>60 ml/min/1.73 sqM); Albumin 4.4 g/dL (3.5-5.0); Alkaline Phosphatase 53 U/L (38-126); Anion Gap 8 mmol/L; Blood Urea Nitrogen 20 mg/dL (9-20); Calcium 9.5 mg/dL (8.4-10.2); Carbon Dioxide 27 mmol/L (22-30); Chloride 103 mmol/L (98-107); Glucose 156 mg/dL (74-99); Non-African American GFR(CKD) >90 (>60 ml/min/1.73 sqM); Potassium 4.5 mmol/L (3.5-5.1); Sodium 138 mmol/L (137-145); Total Bilirubin 0.6 mg/dL (0.2-1.3); Total Protein 7.8 g/dL (6.3-8.2)
[2023-10-12 15:45] LABS: Partial Thromboplastin Time 25.1 sec (22.0-30.0); Prothrombin Time 10.7 sec (10.0-12.5)
[2023-10-12 15:51] LABS: Basophils % (A) 1 %; Eosinophils # (A) 0.3 k/uL (0-0.7); Eosinophils % (A) 5 %; HCT 41.4 % (39.0-53.0); Lymphocytes % (A) 17 %; MCH 34.1 pg (25.0-35.0); MCHC 33.8 g/dL (31.0-37.0); MCV 100.8 fL (80.0-100.0); Monocytes # (A) 0.4 k/uL (0-1.0); Monocytes % (A) 7 %; Neutrophils # (A) 4.1 k/uL (1.3-7.7); Neutrophils % (A) 67 %; RBC 4.11 m/uL (4.30-5.90); RDW 13.3 % (11.5-15.5)
[2023-10-12 15:53] LABS: Platelet Count 116 k/uL (150-450)
--- NOTE | 2023-10-12 16:07 | XR ---
EXAMINATION TYPE: XR chest 2V DATE OF EXAM: 10/12/2023 3:58 PM CLINICAL INDICATION:Male, 63 years old with history of Weakness; COMPARISON: None TECHNIQUE: XR chest 2V Frontal and lateral views of the chest. FINDINGS: Lungs/Pleura: There is no evidence of pleural effusion, focal consolidation, or pneumothorax. Pulmonary vascularity: Unremarkable. Heart/mediastinum: Cardiomediastinal silhouette is enlarged and stable. Musculoskeletal: No acute osseous pathology. IMPRESSION: 1. No acute cardiopulmonary disease process. 2. COPD changes.
[2023-10-12 18:35] LABS: Appearance,Urine Clear (Clear); Bilirubin,Urine Negative (Negative); Blood,Urine Negative (Negative); Color,Urine Light Yellow; Glucose,Urine (UA) Negative (Negative); Ketones,Urine Negative (Negative); Leukocyte Esterase,Urine Negative (Negative); Nitrite,Urine Negative (Negative); PH, Urine 6.5 (5.0-8.0); Protein,Urine Negative (Negative); Urobilinogen,Urine <2.0 mg/dL (<2.0)
[2023-10-12 18:44] LABS: ABG Base Excess 5.2 mmol/L; ABG HCO3 30 mmol/L (21-25); ABG Oxygen Saturation 94.3 % (94-97); ABG PCO2 46 mmHg (35-45); ABG PH 7.42 (7.35-7.45); ABG PO2 67 mmHg (83-108); ABG TCO2 31 mmol/L (19-24); Allen Test Performed? Yes
--- NOTE | 2023-10-12 19:03 | CT ---
EXAMINATION TYPE: CT brain wo con CT DLP: 1184.90 mGycm, Automated exposure control for dose reduction was used. DATE OF EXAM: 10/12/2023 6:55 PM COMPARISON: CT brain 09/27/2023. CLINICAL INDICATION:Male, 63 years old with history of ams, AMS TECHNIQUE: Brain: Axial CT images of the brain were obtained with coronal and sagittal reformats created and rev iewed. Contrast used: None. Oral contrast used: None. FINDINGS: Brain: Extra-axial spaces: No abnormal extra-axial fluid collections. Ventricular system: Stable moderate supratentorial ventriculomegaly. Of note, there is widening of th e sylvian fissures as well as acute callosal angle. Cerebral parenchyma: No acute intraparenchymal hemorrhage or mass effect. Remote right frontal lobe infarct with encephalomalacia identified. Additional chronic areas of hypoattenuation within the subc ortical white matter, consistent with chronic ischemic small vessel disease.. Cerebellum: Unremarkable. Mass effect: No evidence of midline shift. Intracranial vasculature: Atherosclerotic calcifications of the intracranial vessels. Soft tissues: Normal. Calvarium/osseous structures: No depressed skull fracture. Paranasal sinuses and mastoid air cells: Mild scattered paranasal sinus disease. Visualized orbits: Bilateral aphakia IMPRESSION: 1. No acute intracranial process. 2. Stable moderate supratentorial ventriculomegaly, the appearance of the ventricles as well as widen ed sylvian fissures is nonspecific but has been associated with normal pressure hydrocephalus. Consid er correlation with patient's symptomatology. 3. Remote right frontal lobe infarct.
[2023-10-12] MEDS ORDERED: NALOXONE 0.4 MG/ML 1 ML VIAL IVP PRN (19:55)
[2023-10-12] MEDS: IPRATROPIUM-ALBUTEROL 3 ML NEB INHALATION SCH (20:44)
[2023-10-12] MEDS: IPRATROPIUM-ALBUTEROL 3 ML NEB INHALATION STA (20:44)
[2023-10-12] MEDS: PRIMIDONE 50 MG TAB PO SCH (21:17)
[2023-10-12] MEDS: LACOSAMIDE 50 MG TABLET PO SCH (21:18)
[2023-10-12] MEDS: CLOPIDOGREL 75 MG TAB PO SCH (21:20)
[2023-10-12] MEDS: ATORVASTATIN 80 MG TAB PO SCH (21:20)
[2023-10-12] MEDS: ESCITALOPRAM 20 MG TAB PO SCH (21:21)
[2023-10-12] MEDS: amLODIPine 5 MG TAB PO SCH (21:22)
[2023-10-12] MEDS: LACTULOSE 20 GM/30 ML CUP PO SCH (21:24)
[2023-10-13 06:17] LABS: Glucose,Whole Blood 221 mg/dL (70-110)
[2023-10-13] MEDS: ASPIRIN 81 MG PO SCH (09:03)
[2023-10-13] MEDS: MULTIVITAMINS, THERA 1 EACH TAB PO SCH (09:03)
[2023-10-13] MEDS: FERROUS SULFATE 325 MG TAB PO SCH (09:03)
[2023-10-13] MEDS: INSULIN DETEMIR (LEVEMIR) 100 UNIT/ML SYR SQ SCH (09:06)
[2023-10-13] MEDS: SYMBICORT 160-4.5 MCG INHALER INHALATION SCH (09:10)
[2023-10-13 11:47] LABS: Glucose,Whole Blood 234 mg/dL (70-110)
--- NOTE | 2023-10-13 13:14 | P.CNNES ---
History of Present Illness Consult date: 10/13/23 Requesting physician: Balaji Fernandez Reason for Consult: Altered mental status, NPH History of Present Illness: Patient is a 63-year-old male came to the hospital by ambulance yesterday at 1:55 PM for altered mental status. Patient not able to provide any history. I spoke to patient's on the phone, who states that she called ambulance because he was very lethargic, not like himself. When she would ask any questio n, either he would not answer, or if he starts, would not finish the sentence. Or answer something that was not asked. He was also very weak. He was having quite a bit of phlegm then she was concerned if he has pneumonia. Patient's mentions that since July 12, 2023, therapist has said that he should not be walking because he was a fall risk. He mostly sits in the wheelchair. He needs help to get from wheelchair to the bed or to the commode. Patient was previously diagnosed with NPH. He was recommended to see a neurosurgeon. However patient's mentions that they saw Dr. Lieberman office, who did not believe that patient will benefit from ventriculoperitoneal shunting, as he had previous stroke and mini strokes. Patient's mentions that some days his memory is good other days he cannot remember anything. He is more requiring need help to get from bed to the chair. Now he can take only a few steps. Once he sits in the chair, he cannot get out of chair. Now only can take 2 or 3 steps. He does have a pain pump in the back. In March 05 he was diagnosed with 2 mini strokes. Patient does take aspirin and Plavix from cardiology standpoint. As per EMS flowsheet, when they arrived, patient was alert and oriented x 1. Per family on scene, patient has increasing weakness over the last several days. History of CVA last February. Patient uses a wheelchair for mobility at home. Patient denied any chest pain, difficulty breathing, nausea or trauma. Blood glucose was 248 mg/dL. Blood pressure was 172/72, which came down to 159/78, pulse rate 55 respiration 14. Blood test shows normal WBC, hemoglobin 14.0, platelets 116. MCV is elevated 100.8. PT PTT normal. CMP is normal, troponin negative. UA negative, influenza, RSV and coronavirus PCR negative. Ammonia is less than 9. Chest x- ray showed COPD otherwise no acute process. EKG shows sinus bradycardia with heart rate of 51. CT of the head showed no acute intracranial process. Stable moderate supra tentorial ventriculomegaly, the appearance of the ventricles as well as widened sylvian fissure is nonspecific but has been associated with normal pressure hydrocephalus. Consider correlation with patient's symptomatology. Remote right frontal lobe infarct. Patient has been seen by neurology service multiple times in the past. Patient Had altered mental status likely secondary to more toxic metabolic encephalopathy related to pneumonia, fever and hypoxia. Patient has history of seizure disorder, on Vimpat 200 mg twice daily. Patient also has history of right frontal ischemic infarct. History of memory impairment. Patient had an EEG on 02/25/2023, which revealed background slowing suggestive of mild encephalopathy. No epileptiform activity was seen. Patient does take primidone 50 mg at bedtime, Plavix 75 mg, Lexapro, Crestor 40 mg, Vimpat 200 mg twice daily, aspirin 81 mg, multivitamin, insulin, amlodipine, lactulose. Review of Systems Constitutional: Reports chills, Reports fever Eyes: denies blurred vision, denies diplopia, denies pain, denies loss of vision Ears: left: decreased hearing Ears, nose, mouth and throat: Denies headache, Denies sore throat, Denies vertigo Cardiovascular: Reports shortness of breath, Denies chest pain Past Medical History Past Medical History: COPD, CVA/TIA, Diabetes Mellitus, Hyperlipidemia, Hypertension, Memory Impairment, Myocardial Infarction (CT), Prostate Disorder, Seizure Disorder, Skin Disorder Additional Past Medical History / Comment(s): duodenal ulcer, pain and numbness cyrus legs and feet,pain pump in back, anemia. TIA X3, HEPATITIS C PAST HISTORY, LAST SEIZURE 2012,hiatal hernia Last Myocardial Infarction Date:: POSSIBLE CT 2012 History of Any Multi-Drug Resistant Organisms: None Reported Past Surgical History: Appendectomy, Back Surgery, Heart Catheterization, Orthopedic Surgery Additional Past Surgical History / Comment(s): titanium lyn in lt leg, skin graph to rt 1st and middle finger, lt eardum replaced, cyrus. foot surgery to arch, cataract surgery bilateral with implant,skin graft left leg Past Anesthesia/Blood Transfusion Reactions: No Reported Reaction Past Psychological History: Anxiety, Depression Additional Psychological History / Comment(s): past history of depression Smoking Status: Former smoker Past Alcohol Use History: None Reported Additional Past Alcohol Use History / Comment(s): Pt started smoking in 1974 and is a 1-2ppd smoker Past Drug Use History: None Reported - Past Family History Mother Family Medical History: Diabetes Mellitus, Pulmonary Embolus Father Additional Family Medical History / Comment(s): Father had pain problems/hallucinations. He committed suicide. Medications and Allergies Home Medications Medication Instructions Recorded Confirmed Type Albuterol Sulfate [Proair Hfa] 2 puff INHALATION RT-QID PRN 10/22/20 10/12/23 History Ferrous Sulfate [Iron (65 MG 325 mg PO DAILY 12/10/20 10/12/23 History Elemental)] Clopidogrel [Plavix] 75 mg PO HS 06/30/21 10/12/23 History Primidone [Mysoline] 50 mg PO HS 06/30/21 10/12/23 History Escitalopram [Lexapro] 20 mg PO HS 02/23/23 10/12/23 History Rosuvastatin Calcium [Crestor] 40 mg PO HS 03/14/23 10/12/23 History Acetaminophen Tab [Tylenol] 325 mg PO Q6HR PRN tab 03/16/23 10/12/23 Rx Lacosamide [Vimpat] 200 mg PO BID #6 tab 03/16/23 10/12/23 Rx Aspirin EC [Ecotrin Low Dose] 81 mg PO DAILY 05/22/23 10/12/23 History Multivitamins, Thera [Multivitamin 1 tab PO DAILY 05/22/23 10/12/23 History (formulary)] Insulin Detemir [Levemir Flexpen] 48 units SQ DAILY 06/15/23 10/12/23 History Lactulose [Cephulac] 20 gm PO TID 09/08/23 10/12/23 History amLODIPine [Norvasc] 2.5 mg PO BID 09/08/23 10/12/23 History Budesonide-Formot 160-4.5 Mcg 2 puff INHALATION RT-BID #1 each 09/10/23 10/12/23 Rx [Symbicort 160-4.5 Mcg Inhaler] Ipratropium-Albuterol Nebulize 3 ml INHALATION RT-QID PRN #120 09/10/23 10/12/23 Rx [Duoneb 0.5 mg-3 mg/3 ml Soln] each Insulin Lispro [humaLOG Kwikpen] See Protocol SQ ACHS 10/12/23 10/12/23 History Allergies Allergy/AdvReac Type Severity Reaction Status Date / Time morphine AdvReac Nausea & Verified 10/12/23 20:25 Vomiting Physical Examination - Vital Signs Vital Signs: Vital Signs Temp Pulse Pulse Resp BP BP Pulse Ox 10/13/23 10:31 98.3 F 57 L 12 131/65 93 L 10/13/23 09:23 60 10/13/23 09:13 54 L 93 L 10/13/23 02:44 178/82 10/13/23 02:38 97.8 F 57 L 18 208/103 93 L 10/13/23 02:27 98.2 F 54 L 18 163/82 96 10/13/23 01:00 53 L 16 134/85 94 L 10/12/23 23:41 54 L 20 129/102 96 10/12/23 22:10 56 L 18 143/77 93 L 10/12/23 21:24 64 20 133/59 95 10/12/23 20:59 63 10/12/23 20:44 53 L 10/12/23 20:16 98.3 F 54 L 18 145/81 10/12/23 18:04 53 L 20 154/83 95 10/12/23 14:31 98.0 F 54 L 16 163/76 96 Intake and Output 10/12/23 10/13/23 10/13/23 22:59 06:59 14:59 Intake Total 200 Balance 200 Intake: Oral 200 Other: Voiding Method External Catheter External Catheter Weight 95.254 kg Patient is a late middle aged male, who appears older than his stated age. Patient is somnolent, but does wake up, appears somewhat encephalopathic. Patient states it is in [facility] in [place]. He could not tell the current month or the year or name of the president. Patient is able to name and repeat very well. No aphasia or dysarthria. Attention, concentration is significantly decreased and fund of knowledge is very limited. Negative palmomental reflex. Patient has very slow mentation, and prolonged latency time to answer questions. On cranial nerve examination, pupils are equal, round and reacting to light, visual barajas are full on confrontation, with no neglect on double simultaneous stimulation. Extraocular muscles are intact with no nystagmus. Face is symmetric, tongue protrudes to the midline. Palatal elevation and sensation normal, hearing is slightly decreased and shoulder shrug normal, facial sensation normal. On muscle strength testing, there is no pronator drift and the strength is normal in arms and legs distally and proximally. Deep tendon reflexes are asymmetric (right/left) biceps 2+/1+, brachioradialis 2+/1+, knees 1+/1+, ankles 2+/1+ and plantars are flat bilaterally. Sensory to touch is equal with no neglect on double simultaneous stimulation. Cerebellar function showed no ataxia for [id number] testing. Tone is mild to moderately increased in the upper limbs, but severely increased in the lower limbs and bulk of muscles normal. Patient is significantly bradykinetic. No obvious tremors at rest noted. Gait deferred.. On general examination, there is no carotid bruit or murmur, S1-S2 audible. C hest is clear on consultation. Abdomen is soft nontender. No organomegaly, bowel sounds present. Patient has moderate peripheral edema. Patient has chronic skin changes with hyperpigmentation up to below knees bilaterally. Results - Laboratory Findings CBC and BMP: 10/12/23 13:07 10/12/23 15:13 Abnormal Lab Findings: Abnormal Labs 10/12/23 10/12/23 10/12/23 13:07 15:13 18:34 RBC 4.11 L MCV 100.8 H Plt Count 116 L D ABG pCO2 46 H ABG pO2 67 L ABG HCO3 30 H ABG Total CO2 31 H Glucose 156 H POC Glucose (mg/dL) 10/13/23 10/13/23 06:13 11:45 RBC MCV Plt Count ABG pCO2 ABG pO2 ABG HCO3 ABG Total CO2 Glucose POC Glucose (mg/dL) 221 H 234 H Assessment and Plan Assessment: * Altered mental status, possible toxic metabolic encephalopathy. * Probable normal pressure hydrocephalus, progressively getting worse. Patient at present has significant extraparametal features of bradykinesia, increased tone, and gait imbalance. He also has memory loss and problems controlling urine. * Memory loss/cognitive impairment for the last 10 years * History of stroke * History of cirrhosis * Macrocytosis, likely from chronic liver disease * History of multiple TIAs seizure disorder, on Vimpat. * Presence of pain pump * Essential tremor * Diabetes mellitus. Plan: * Patient has history of normal pressure hydrocephalus, but he has not undergone any workup for it, as his neurologist Dr. Lieberman staff did not believe that he is a good candidate for ventriculoperitoneal shunting. However he is still quite young, only 63 years of age, and has significant symptoms of NPH. He could be a good candidate for ventriculoperitoneal shunting. * Patient may be considered for a trial with Sinemet to see if it helps with his mobility. However if he gets any hallucinations, would consider stopping it. * Cannot perform large-volume tap at this time, as he is already on Plavix. * Recommend patient follow-up with neurosurgeon for further evaluation of p robable NPH. * Patient's recent worsening is of unclear cause. Need to identify any source of infection like UTI, or pneumonia. * Check B12, folate, MMA. * PT OT. Patient will be transferred to rehab. * Neurology will follow. Thank you for the consult.
[2023-10-13 17:11] LABS: Glucose,Whole Blood 187 mg/dL (70-110)
[2023-10-13] MEDS: INSULIN ASPART (NovoLOG) 100 UNIT/ML VIAL SQ SCH (17:42)
[2023-10-13 20:09] LABS: Glucose,Whole Blood 170 mg/dL (70-110)
--- NOTE | 2023-10-13 23:13 | P.HPIM ---
History of Present Illness H&P Date: 10/13/23 Chief Complaint: AMS Sukh Zamarripa is a 63 yo M with PMH of NPH, CVA/TIA, intrathecal pain pump in place, T2DM who was brought to the ED by his for AMS. reports he has been lethargic, unable to follow a conversation and increasingly weak. Ever since his diagnosis of NPH a few months ago he has been increasingly weak and spending more time in his wheelchair. Pt currently denies complaint, no chest pain, shortness of breath, cough, fever, chills, headache. On presentation WBC wnl, Hgb 14, plt 116, pt hypertensive to 172/72. CMP is wnl, trop negative, respiratory virus panel negative. Ammonia is less than 9. Chest x-ray showed COPD otherwise no acute process. EKG shows sinus bradycardia with heart rate of 51. CT of the head showed no acute intracranial process. Review of Systems All systems: negative Constitutional: Denies chills, Denies fever Eyes: denies blurred vision, denies pain Ears, nose, mouth and throat: Denies headache, Denies sore throat Cardiovascular: Denies chest pain, Denies shortness of breath Respiratory: Denies cough Gastrointestinal: Denies abdominal pain, Denies diarrhea, Denies nausea, Denies vomiting Musculoskeletal: Denies myalgias Integumentary: Denies pruritus, Denies rash Neurological: Denies numbness, Denies weakness Psychiatric: Denies anxiety, Denies depression Endocrine: Denies fatigue, Denies weight change Past Medical History Past Medical History: COPD, CVA/TIA, Diabetes Mellitus, Hyperlipidemia, Hypertension, Memory Impairment, Myocardial Infarction ([place]), Prostate Disorder, Seizure Disorder, Skin Disorder Additional Past Medical History / Comment(s): duodenal ulcer, pain and numbness cyrus legs and feet,pain pump in back, anemia. TIA X3, HEPATITIS C PAST HISTORY, LAST SEIZURE 2012,hiatal hernia Last Myocardial Infarction Date:: POSSIBLE MT 2012 History of Any Multi-Drug Resistant Organisms: None Reported Past Surgical History: Appendectomy, Back Surgery, Heart Catheterization, Orthopedic Surgery Additional Past Surgical History / Comment(s): titanium lyn in lt leg, skin graph to rt 1st and middle finger, lt eardum replaced, cyrus. foot surgery to arch, cataract surgery bilateral with implant,skin graft left leg Past Anesthesia/Blood Transfusion Reactions: No Reported Reaction Past Psychological History: Anxiety, Depression Additional Psychological History / Comment(s): past history of depression Smoking Status: Former smoker Past Alcohol Use History: None Reported Additional Past Alcohol Use History / Comment(s): Pt started smoking in 1974 and is a 1-2ppd smoker Past Drug Use History: None Reported - Past Family History Mother Family Medical History: Diabetes Mellitus, Pulmonary Embolus Father Additional Family Medical History / Comment(s): Father had pain problems/hallucinations. He committed suicide. Medications and Allergies Home Medications Medication Instructions Recorded Confirmed Type Albuterol Sulfate [Proair Hfa] 2 puff INHALATION RT-QID PRN 10/22/20 10/12/23 History Ferrous Sulfate [Iron (65 MG 325 mg PO DAILY 12/10/20 10/12/23 History Elemental)] Clopidogrel [Plavix] 75 mg PO HS 06/30/21 10/12/23 History Primidone [Mysoline] 50 mg PO HS 06/30/21 10/12/23 History Escitalopram [Lexapro] 20 mg PO HS 02/23/23 10/12/23 History Rosuvastatin Calcium [Crestor] 40 mg PO HS 03/14/23 10/12/23 History Acetaminophen Tab [Tylenol] 325 mg PO Q6HR PRN tab 03/16/23 10/12/23 Rx Lacosamide [Vimpat] 200 mg PO BID #6 tab 03/16/23 10/12/23 Rx Aspirin EC [Ecotrin Low Dose] 81 mg PO DAILY 05/22/23 10/12/23 History Multivitamins, Thera [Multivitamin 1 tab PO DAILY 05/22/23 10/12/23 History (formulary)] Insulin Detemir [Levemir Flexpen] 48 units SQ DAILY 06/15/23 10/12/23 History Lactulose [Cephulac] 20 gm PO TID 09/08/23 10/12/23 History amLODIPine [Norvasc] 2.5 mg PO BID 09/08/23 10/12/23 History Budesonide-Formot 160-4.5 Mcg 2 puff INHALATION RT-BID #1 each 09/10/23 10/12/23 Rx [Symbicort 160-4.5 Mcg Inhaler] Ipratropium-Albuterol Nebulize 3 ml INHALATION RT-QID PRN #120 09/10/23 10/12/23 Rx [Duoneb 0.5 mg-3 mg/3 ml Soln] each Insulin Lispro [humaLOG Kwikpen] See Protocol SQ ACHS 10/12/23 10/12/23 History Allergies Allergy/AdvReac Type Severity Reaction Status Date / Time morphine AdvReac Nausea & Verified 10/12/23 20:25 Vomiting Physical Exam Vitals: Vital Signs Temp Pulse Pulse Resp BP BP BP 10/13/23 21:29 62 10/13/23 21:13 60 10/13/23 19:56 97.7 F 56 L 16 136/69 10/13/23 16:24 60 10/13/23 16:12 60 10/13/23 15:57 98.4 F 51 L 18 170/68 10/13/23 12:33 59 L 10/13/23 12:26 56 L 10/13/23 10:31 98.3 F 57 L 12 131/65 10/13/23 09:23 60 10/13/23 09:13 54 L 10/13/23 02:44 178/82 10/13/23 02:38 97.8 F 57 L 18 208/103 10/13/23 02:27 98.2 F 54 L 18 163/82 10/13/23 01:00 53 L 16 134/85 10/12/23 23:41 54 L 20 129/102 Pulse Ox 10/13/23 21:29 10/13/23 21:13 10/13/23 19:56 92 L 10/13/23 16:24 10/13/23 16:12 10/13/23 15:57 94 L 10/13/23 12:33 10/13/23 12:26 10/13/23 10:31 93 L 10/13/23 09:23 10/13/23 09:13 93 L 10/13/23 02:44 10/13/23 02:38 93 L 10/13/23 02:27 96 10/13/23 01:00 94 L 10/12/23 23:41 96 Intake and Output 10/13/23 10/13/23 10/14/23 14:59 22:59 06:59 Intake Total 200 Balance 200 Intake: Oral 200 Other: Voiding Method External Catheter External Catheter # Voids 1 Weight 95.254 kg General: appears older than stated age, obese, NAD HEENT: NC/AT, mmm Neck: supple, no JVD or thyromegaly CV: RRR, no murmur Lungs: Normal effort, clear throughout Abd: soft, nontender, non distended Skin: warm and dry Results CBC & Chem 7: 10/12/23 13:07 10/12/23 15:13 Labs: Abnormal Lab Results - Last 24 Hours (Table) 10/13/23 10/13/23 10/13/23 Range/Units 06:13 11:45 17:09 POC Glucose (mg/dL) 221 H 234 H 187 H (70-110) mg/dL 10/13/23 Range/Units 20:07 POC Glucose (mg/dL) 170 H (70-110) mg/dL Assessment and Plan Plan: 1. Altered mental status, suspect related to worsening of his NPH. Consult Neurology, continue home medications
[2023-10-14 07:20] LABS: Glucose,Whole Blood 132 mg/dL (70-110)
[2023-10-14 12:18] LABS: Glucose,Whole Blood 153 mg/dL (70-110)
[2023-10-14 17:14] LABS: Glucose,Whole Blood 159 mg/dL (70-110)
[2023-10-14 20:12] LABS: Glucose,Whole Blood 185 mg/dL (70-110)
--- NOTE | 2023-10-15 00:09 | P.PN ---
Subjective Sukh Zamarripa is a 63 yo M with PMH of NPH, CVA/TIA, intrathecal pain pump in place, T2DM who was brought to the ED by his for AMS. reports he has been lethargic, unable to follow a conversation and increasingly weak. Ever since his diagnosis of NPH a few months ago he has been increasingly weak and spending more time in his wheelchair. Pt currently denies complaint, no chest pain, shortness of breath, cough, fever, chills, headache. On presentation WBC wnl, Hgb 14, plt 116, pt hypertensive to 172/72. CMP is wnl, trop negative, respiratory virus panel negative. Ammonia is less than 9. Chest x-ray showed COPD otherwise no acute process. EKG shows sinus bradycardia with heart rate of 51. CT of the head showed no acute intracranial process. 08/14/2023 Patient is confused to time place and person. Frequent saying his name but he could not know if he is in the hospital and states he thought he is at [facility]. Also he is slow to respond and he does not look to has insight into his illness. Although he answers some questions. Initially was brought by the because of increasing lethargy and weakness, as per her description he has good days and bad days of memory Patient with no dyspnea or chest pain. Abdominal soft. Patient is hemodynamically stable except for mild bradycardia with heart rate about 50. CBC is unremarkable except for mild thrombocytopenia at 116 BMP liver enzymes INR and troponin were unremarkable. Lactic acid is normal at 1.3 B12 568 and folate 28. Ammonia less than 9. EKG sinus bradycardia at [address]-T changes Influenza A and type B, RSV, SARS (coronavirus) are undetected CT of the brain is negative for acute process ABG showed normal pH with pCO2 is not elevated but located on 2 hours 7 Active Medications Generic Name Dose Route Start Last Admin Trade Name Freq PRN Reason Stop Dose Admin Acetaminophen 325 mg 10/12/23 20:42 Acetaminophen Tab 325 Mg Tab PO Q6HR PRN Fever and/ or Pain Albuterol/Ipratropium 3 ml 10/12/23 20:00 10/14/23 20:54 Ipratropium-Albuterol 3 Ml Neb INHALATION 3 ml RT-QID JES Administration Albuterol/Ipratropium 3 ml 10/12/23 19:55 Ipratropium-Albuterol 3 Ml Neb INHALATION RT-Q2H PRN Shortness Of Breath Or Wheezing Amlodipine Besylate 2.5 mg 10/12/23 21:00 10/14/23 20:17 Amlodipine 5 Mg Tab PO 2.5 mg BID JES Administration Aspirin 81 mg 10/13/23 09:00 10/14/23 08:49 Aspirin 81 Mg PO 81 mg DAILY JES Administration Atorvastatin Calcium 80 mg 10/12/23 21:00 10/14/23 20:17 Atorvastatin 80 Mg Tab PO 80 mg HS JES Administration Budesonide/Formoterol Fumarate 2 puff 10/13/23 08:00 10/14/23 20:54 Symbicort 160-4.5 Mcg Inhaler INHALATION 2 puff RT-BID JES Administration Clopidogrel Bisulfate 75 mg 10/12/23 21:00 10/14/23 20:17 Clopidogrel 75 Mg Tab PO 75 mg HS JES Administration Escitalopram Oxalate 20 mg 10/12/23 21:00 10/14/23 20:17 Escitalopram 20 Mg Tab PO 20 mg HS JES Administration Ferrous Sulfate 325 mg 10/13/23 09:00 10/14/23 08:50 Ferrous Sulfate 325 Mg Tab PO 325 mg DAILY JES Administration Insulin Aspart 0 unit 10/13/23 17:30 10/14/23 20:17 Insulin Aspart (Novolog) 100 Unit/Ml Vial SQ 2 unit ACHS JES Administration Protocol Insulin Detemir 48 unit 10/13/23 07:00 10/14/23 08:49 Insulin Detemir (Levemir) 100 Unit/Ml Syr SQ 48 unit DAILY@0700 JES Administration Lacosamide 200 mg 10/12/23 21:00 10/14/23 20:17 Lacosamide 50 Mg Tablet PO 200 mg BID JES Administration Lactulose 20 gm 10/12/23 22:00 10/14/23 20:53 Lactulose 20 Gm/30 Ml Cup PO 20 gm TID JES Administration Multivitamins 1 each 10/13/23 09:00 10/14/23 08:50 Multivitamins, Thera 1 Each Tab PO 1 each DAILY JES Administration Naloxone HCl 0.2 mg 10/12/23 19:55 Naloxone 0.4 Mg/Ml 1 Ml Vial IVP Q2M PRN Opioid Reversal Petrolatum 1 applic 10/13/23 14:52 Zinc Oxide Paste (Z-Guard) 1 Applic TOPICAL BID PRN Wound Healing Protocol Primidone 50 mg 10/12/23 21:00 10/14/23 20:17 Primidone 50 Mg Tab PO 50 mg HS JES Administration Objective - Vital Signs Vital signs: Vital Signs Temp 98.8 F 10/14/23 19:49 Pulse 60 10/14/23 21:05 Resp 16 10/14/23 19:49 BP 155/67 10/14/23 19:49 Pulse Ox 92 L 10/14/23 19:49 FiO2 Intake & Output 10/14/23 10/14/23 10/15/23 06:59 18:59 06:59 Intake Total 600 900 Output Total 400 Balance 600 500 Intake: Oral 600 900 Output: Urine 400 Other: Voiding Method External Catheter External Catheter # Voids 1 1 - Exam -GENERAL: The patient is alert and oriented x0, has no insight, not in any acute distress. Well developed, well nourished. HEENT: Pupils are round and equally reacting to light. EOMI. No scleral icterus. No conjunctival pallor. Normocephalic, atraumatic. No pharyngeal erythema. No thyromegaly. CARDIOVASCULAR: S1 and S2 present. No murmurs, rubs, or gallops. PULMONARY: Chest is clear to auscultation, no wheezing , no crackles. ABDOMEN: Soft, nontender, nondistended, normoactive bowel sounds. No palpable organomegaly. MUSCULOSKELETAL: No joint swelling or deformity. EXTREMITIES: No cyanosis, clubbing, or pedal edema. NEUROLOGICAL: Gross neurological examination did not reveal any focal deficits. SKIN: No rashes. no petechiae. - Labs CBC & Chem 7: 10/12/23 13:07 10/12/23 15:13 Labs: Abnormal Lab Results - Last 24 Hours (Table) 10/14/23 10/14/23 10/14/23 Range/Units 07:03 12:16 17:12 POC Glucose (mg/dL) 132 H 153 H 159 H (70-110) mg/dL 10/14/23 Range/Units 20:08 POC Glucose (mg/dL) 185 H (70-110) mg/dL Assessment and Plan Assessment: Altered mental status most likely worsening dementia Increasing debility deconditioning and more dependent on wheelchair Mild hypoxia, rule out pneumonia Hypothyroidism History of seizure Constipation Coronary artery disease on aspirin and Plavix Plan: Neurology service on the case Patient continued on aspirin Plavix Repeat chest x-ray Repeat labs Repeat urine analysis DVT prophylaxis: Subcutaneous heparin GI prophylaxis: Pepcid
[2023-10-15] MEDS: ZINC OXIDE PASTE (Z-GUARD) 1 APPLIC TOPICAL PRN (01:45)
[2023-10-15 07:18] LABS: Glucose,Whole Blood 139 mg/dL (70-110)
--- NOTE | 2023-10-15 08:14 | XR ---
EXAMINATION TYPE: XR chest 2V DATE OF EXAM: 10/15/2023 COMPARISON: 10/12/2023 TECHNIQUE: PA and lateral views submitted. HISTORY: Hypoxia FINDINGS: Left lower lobe segmental atelectasis or infiltrate. No pleural effusion or pneumothorax. Limited ins piration. Heart size mildly prominent but no overt failure. Osseous structures demonstrate hypertroph ic and degenerative changes of the spine. Arthropathy of the shoulders. IMPRESSION: 1. Limited inspiration with left basilar atelectasis favored over pneumonia. Correlate clinically..
[2023-10-15 08:39] LABS: Basophils # (A) 0.03 X 10*3/uL (0.00-0.10); Basophils % (A) 0.7 %; Eosinophils # (A) 0.16 X 10*3/uL (0.04-0.35); Eosinophils % (A) 3.7 %; HCT 37.4 % (39.6-50.0); HGB 12.4 g/dL (13.0-17.0); Lymphocytes # (A) 1.53 X 10*3/uL (0.90-5.00); Lymphocytes % (A) 35.3 %; MCH 33.9 pg (27.0-32.0); MCHC 33.2 g/dL (32.0-37.0); MCV 102.2 FL (80.0-97.0); Mean Platelet Volume 10.5 FL (9.5-12.2); Monocytes # (A) 0.41 X 10*3/uL (0.20-1.00); Monocytes % (A) 9.4 %; NRBC Per 100 WBC 0 X 10*3/uL (0.00-0.01); Neutrophils % (A) 50.7 %; Platelet Count 96 X 10*3/uL (140-440); RBC 3.66 X 10*6/uL (4.40-5.60); RDW 13.1 % (11.5-14.5); WBC 4.34 X 10*3/uL (4.50-10.00)
[2023-10-15 08:52] LABS: BUN/Creat Ratio 17.11 Ratio (12.00-20.00); Blood Urea Nitrogen 15.4 mg/dL (9.0-27.0); Calcium 9.4 mg/dL (8.7-10.3); Carbon Dioxide 26.6 mmol/L (21.6-31.8); Chloride 108 mmol/L (96-109); Glucose 140 mg/dL (70-110); Potassium 4.6 mmol/L (3.5-5.5); Sodium 147 mmol/L (135-145)
[2023-10-15 12:12] LABS: Glucose,Whole Blood 151 mg/dL (70-110)
--- NOTE | 2023-10-15 13:10 | P.PN ---
Subjective please refer to the note 10/14 at 00.02 date of service is 10/14/2023 Objective - Vital Signs Vital signs: Vital Signs Temp 98 F 10/14/23 07:42 Pulse 56 L 10/14/23 11:19 Resp 17 10/14/23 07:42 BP 135/68 10/14/23 07:42 Pulse Ox 93 L 10/14/23 07:42 FiO2 Intake & Output 10/13/23 10/14/23 10/14/23 18:59 06:59 18:59 Intake Total 200 600 120 Balance 200 600 120 Weight 95.254 kg Intake: Oral 200 600 120 Other: Voiding Method External Catheter External Catheter # Voids 1 1 1 - Labs CBC & Chem 7: 10/15/23 06:25 10/15/23 06:25 Labs: Abnormal Lab Results - Last 24 Hours (Table) 10/13/23 10/13/23 10/14/23 Range/Units 17:09 20:07 07:03 POC Glucose (mg/dL) 187 H 170 H 132 H (70-110) mg/dL 10/14/23 Range/Units 12:16 POC Glucose (mg/dL) 153 H (70-110) mg/dL
--- NOTE | 2023-10-15 13:16 | P.PN ---
Subjective Sukh Zamarripa is a 63 yo M with PMH of NPH, CVA/TIA, intrathecal pain pump in place, T2DM who was brought to the ED by his for AMS. reports he has been lethargic, unable to follow a conversation and increasingly weak. Ever since his diagnosis of NPH a few months ago he has been increasingly weak and spending more time in his wheelchair. Pt currently denies complaint, no chest pain, shortness of breath, cough, fever, chills, headache. On presentation WBC wnl, Hgb 14, plt 116, pt hypertensive to 172/72. CMP is wnl, trop negative, respiratory virus panel negative. Ammonia is less than 9. Chest x-ray showed COPD otherwise no acute process. EKG shows sinus bradycardia with heart rate of 51. CT of the head showed no acute intracranial process. 08/14/2023 Patient is confused to time place and person. Frequent saying his name but he could not know if he is in the hospital and states he thought he is at [facility]. Also he is slow to respond and he does not look to has insight into his illness. Although he answers some questions. Initially was brought by the because of increasing lethargy and weakness, as per her description he has good days and bad days of memory Patient with no dyspnea or chest pain. Abdominal soft. Patient is hemodynamically stable except for mild bradycardia with heart rate about 50. CBC is unremarkable except for mild thrombocytopenia at 116 BMP liver enzymes INR and troponin were unremarkable. Lactic acid is normal at 1.3 B12 568 and folate 28. Ammonia less than 9. EKG sinus bradycardia at [address]-T changes Influenza A and type B, RSV, SARS (coronavirus) are undetected CT of the brain is negative for acute process ABG showed normal pH with pCO2 is not elevated but located on 2 hours 7 10/15/2023 Patient is awake and alert more than yesterday he knows he is in the hospital and he can tell me the date October 15, 2023 however he is still disoriented to person He looks more awake and follow commands and relaxed. He denies any pain or any other new complaints However patient was noticed to have large left buttock mass, with smooth borders and mobile with some superficial ulcer on the top Will check ultrasound and consult surgical team as well for further evaluation Objective - Vital Signs Vital signs: Vital Signs Temp 98.4 F 10/15/23 06:58 Pulse 60 10/15/23 12:55 Resp 17 10/15/23 06:58 BP 138/82 10/15/23 06:58 Pulse Ox 95 10/15/23 06:58 FiO2 Intake & Output 10/14/23 10/15/23 10/15/23 18:59 06:59 18:59 Intake Total 900 Output Total 400 600 Balance 500 -600 Intake: Oral 900 Output: Urine 400 600 Other: Voiding Method External Catheter External Catheter # Voids 1 - Exam -GENERAL: The patient is alert and oriented x0, has no insight, not in any acute distress. Well developed, well nourished. HEENT: Pupils are round and equally reacting to light. EOMI. No scleral icterus. No conjunctival pallor. Normocephalic, atraumatic. No pharyngeal erythema. No thyromegaly. CARDIOVASCULAR: S1 and S2 present. No murmurs, rubs, or gallops. PULMONARY: Chest is clear to auscultation, no wheezing , no crackles. ABDOMEN: Soft, nontender, nondistended, normoactive bowel sounds. No palpable organomegaly. -MUSCULOSKELETAL: No joint swelling or deformity. Large left buttock mass, with smooth surface, slightly mobile with very small punctate ulcer on the top with white base but no significant discharge or surrounding cellulitis. Does not look tender EXTREMITIES: No cyanosis, clubbing, or pedal edema. NEUROLOGICAL: Gross neurological examination did not reveal any focal deficits. SKIN: No rashes. no petechiae. - Labs CBC & Chem 7: 10/15/23 06:25 10/15/23 06:25 Labs: Abnormal Lab Results - Last 24 Hours (Table) 10/13/23 10/14/23 10/14/23 Range/Units 17:24 17:12 20:08 WBC (4.50-10.00) X 10*3/uL RBC (4.40-5.60) X 10*6/uL Hgb (13.0-17.0) g/dL Hct (39.6-50.0) % MCV (80.0-97.0) FL MCH (27.0-32.0) pg Plt Count (140-440) X 10*3/uL Sodium (135-145) mmol/L Anion Gap (4.00-12.00) mmol/L Glucose (70-110) mg/dL POC Glucose (mg/dL) 159 H 185 H (70-110) mg/dL Methylmalonic Acid 0.44 H (<0.40) umol/L Procalcitonin (0.02-0.09) ng/mL 10/15/23 10/15/23 10/15/23 Range/Units 06:25 06:25 06:25 WBC 4.34 L (4.50-10.00) X 10*3/uL RBC 3.66 L (4.40-5.60) X 10*6/uL Hgb 12.4 L (13.0-17.0) g/dL Hct 37.4 L (39.6-50.0) % MCV 102.2 H (80.0-97.0) FL MCH 33.9 H (27.0-32.0) pg Plt Count 96 L (140-440) X 10*3/uL Sodium 147 H (135-145) mmol/L Anion Gap 12.40 H (4.00-12.00) mmol/L Glucose 140 H (70-110) mg/dL POC Glucose (mg/dL) (70-110) mg/dL Methylmalonic Acid (<0.40) umol/L Procalcitonin 0.11 H (0.02-0.09) ng/mL 10/15/23 10/15/23 Range/Units 07:16 12:10 WBC (4.50-10.00) X 10*3/uL RBC (4.40-5.60) X 10*6/uL Hgb (13.0-17.0) g/dL Hct (39.6-50.0) % MCV (80.0-97.0) FL MCH (27.0-32.0) pg Plt Count (140-440) X 10*3/uL Sodium (135-145) mmol/L Anion Gap (4.00-12.00) mmol/L Glucose (70-110) mg/dL POC Glucose (mg/dL) 139 H 151 H (70-110) mg/dL Methylmalonic Acid (<0.40) umol/L Procalcitonin (0.02-0.09) ng/mL Assessment and Plan Assessment: Heart left buttock mass with small superficial ulcers with no purulent discharge Altered mental status most likely metabolic encephalopathy on the top of Alzheimer's dementia, improving Increasing debility deconditioning and more dependent on wheelchair Mild hypoxia, rule out pneumonia Hypothyroidism History of seizure Constipation Coronary artery disease on aspirin and Plavix Plan: Check ultrasound of the buttock mass Probably will need surgical evaluation and general surgery been consulted Neurology service on the case Patient continued on aspirin Plavix Repeat urine analysis DVT prophylaxis: Subcutaneous heparin GI prophylaxis: Pepcid
--- NOTE | 2023-10-15 13:46 | US ---
EXAMINATION TYPE: US mass soft tissue chest/back DATE OF EXAM: 10/15/2023 COMPARISON: CT CLINICAL INDICATION: Male, 63 years old with history of mass on the left buttock; Redness at area of pt's pain pump left buttock TECHNIQUE: Left buttock FINDINGS: Left buttock in area of pt's redness- No sizeable fluid collection, some superficial skin edema visualized IMPRESSION: No drainable fluid collection identified. Subcutaneous edema identified in the buttocks p ossibly representing cellulitis change given history of erythema.
--- NOTE | 2023-10-15 16:43 | P.GSCN ---
History of Present Illness Consult date: 10/15/23 History of present illness: CHIEF COMPLAINT: Weakness HISTORY OF PRESENT ILLNESS: This is a 63-year-old male who presented the hospital with weakness. He has history of CVA and is wheelchair-bound. He does have a history of pain pump in the left buttocks. Patient does have a history of diabetes. Surgical service consulted regarding a possible left buttock abscess. Ultrasound of the left buttocks showed evidence of cellulitis and no fluid collection. The patient has family at bedside. They report that the ulcer has been there for about 2 months. She has been doing local wound care with Neosporin. The skin breakdown is directly over the pain pump. There is a small cystlike stage II ulceration. No drainage at this time. Family member does report there has been some minimal drainage intermittently. PAST MEDICAL HISTORY: See list. PAST SURGICAL HISTORY: See list. MEDICATIONS: See list. ALLERGIES: See list. SOCIAL HISTORY: No illicit drug use. REVIEW OF SYSTEMS: CONSTITUTIONAL: Denies fever or chills. HEENT: Denies blurred vision, vision changes, or eye pain. Denies hemoptysis ENDOCRINE: Denies heat or cold intolerance. CARDIOVASCULAR: Denies chest pain or pressure. RESPIRATORY: No shortness of breath. GASTROINTESTINAL: Denies abdominal pain. Denies nausea or vomiting. NEURO: Denies history of seizures. PSYCH: No depression or suicidal ideation HEMATOLOGIC: Denies bleeding disorders. LYMPHATIC: The patient denies any lumps and bumps around the neck. GENITOURINARY: Denies any blood in urine or increased urinary frequency. MUSCULOSKELETAL: Denies myalgias. Denies joint swelling. Denies decreased range of motion beyond patients baseline. SKIN: Denies pruitis. Denies rash. PHYSICAL EXAM: VITAL SIGNS: Reviewed GENERAL: Well-developed in no acute distress. HEENT: No sclera icterus. Extraocular movements grossly intact. Moist buccal mucosa. Head is atraumatic, normocephalic. Hears conversational speech. No nasal drainage. NECK: Supple without lymphadenopathy. CHEST: Non-labored respirations and equal bilateral excursions. CARDIOVASCULAR: Palpable 2+ radial pulses. ABDOMEN: Soft. Nondistended. Nontender MUSCULOSKELETAL: No clubbing or cyanosis. NEUROLOGIC: Awake and alert. Able to answer some questions. No focal or lateralizing signs. Cranial nerves II through XII grossly intact. SKIN: Left buttocks mild erythema. No drainage. Small stage II ulceration skin of left buttocks on top of the pain pump LABORATORY DATA: WBC 4.34 Hgb 12.4 platelets 96 Sodium is 147 potassium is 4.6 creatinine 0.9 IMAGING: Ultrasound of the left buttocks shows no drainable fluid collection. Subcutaneous edema identified in the buttocks possibly representing cellulitis changes ASSESSMENT: 1. Stage II ulceration left buttocks PLAN: -No surgical intervention planned -Consult wound care service -Continue offloading -Continue local wound care Physician Experimental Worker note has been reviewed by physician. Signing provider agrees with the documented findings, assessment, and plan of care. Past Medical History Past Medical History: COPD, CVA/TIA, Diabetes Mellitus, Hyperlipidemia, Hypertension, Memory Impairment, Myocardial Infarction ([place]), Prostate Disorder, Seizure Disorder, Skin Disorder Additional Past Medical History / Comment(s): duodenal ulcer, pain and numbness cyrus legs and feet,pain pump in back, anemia. TIA X3, HEPATITIS C PAST HISTORY, LAST SEIZURE 2012,hiatal hernia Last Myocardial Infarction Date:: POSSIBLE [place] 2012 History of Any Multi-Drug Resistant Organisms: None Reported Past Surgical History: Appendectomy, Back Surgery, Heart Catheterization, Orthopedic Surgery Additional Past Surgical History / Comment(s): titanium lyn in lt leg, skin graph to rt 1st and middle finger, lt eardum replaced, cyrus. foot surgery to arch, cataract surgery bilateral with implant,skin graft left leg Past Anesthesia/Blood Transfusion Reactions: No Reported Reaction Past Psychological History: Anxiety, Depression Additional Psychological History / Comment(s): past history of depression Smoking Status: Former smoker Past Alcohol Use History: None Reported Additional Past Alcohol Use History / Comment(s): Pt started smoking in 1974 and is a 1-2ppd smoker Past Drug Use History: None Reported - Past Family History Mother Family Medical History: Diabetes Mellitus, Pulmonary Embolus Father Additional Family Medical History / Comment(s): Father had pain problems/h allucinations. He committed suicide. Medications and Allergies Home Medications Medication Instructions Recorded Confirmed Type Albuterol Sulfate [Proair Hfa] 2 puff INHALATION RT-QID PRN 10/22/20 10/12/23 History Ferrous Sulfate [Iron (65 MG 325 mg PO DAILY 12/10/20 10/12/23 History Elemental)] Clopidogrel [Plavix] 75 mg PO HS 06/30/21 10/12/23 History Primidone [Mysoline] 50 mg PO HS 06/30/21 10/12/23 History Escitalopram [Lexapro] 20 mg PO HS 02/23/23 10/12/23 History Rosuvastatin Calcium [Crestor] 40 mg PO HS 03/14/23 10/12/23 History Acetaminophen Tab [Tylenol] 325 mg PO Q6HR PRN tab 03/16/23 10/12/23 Rx Lacosamide [Vimpat] 200 mg PO BID #6 tab 03/16/23 10/12/23 Rx Aspirin EC [Ecotrin Low Dose] 81 mg PO DAILY 05/22/23 10/12/23 History Multivitamins, Thera [Multivitamin 1 tab PO DAILY 05/22/23 10/12/23 History (formulary)] Insulin Detemir [Levemir Flexpen] 48 units SQ DAILY 06/15/23 10/12/23 History Lactulose [Cephulac] 20 gm PO TID 09/08/23 10/12/23 History amLODIPine [Norvasc] 2.5 mg PO BID 09/08/23 10/12/23 History Budesonide-Formot 160-4.5 Mcg 2 puff INHALATION RT-BID #1 each 09/10/23 10/12/23 Rx [Symbicort 160-4.5 Mcg Inhaler] Ipratropium-Albuterol Nebulize 3 ml INHALATION RT-QID PRN #120 09/10/23 10/12/23 Rx [Duoneb 0.5 mg-3 mg/3 ml Soln] each Insulin Lispro [humaLOG Kwikpen] See Protocol SQ ACHS 10/12/23 10/12/23 History Allergies Allergy/AdvReac Type Severity Reaction Status Date / Time morphine AdvReac Nausea & Verified 10/12/23 20:25 Vomiting Surgical - Exam Vital Signs Temp Pulse Resp BP Pulse Ox 98.0 F 54 L 16 163/76 96 10/12/23 14:31 10/12/23 14:31 10/12/23 14:31 10/12/23 14:31 10/12/23 14:31 Results - Labs 10/15/23 06:25 10/15/23 06:25 Abnormal Lab Results - Last 24 Hours (Table) 05/07/0710/14/23 10/14/23 Range/Units 17:24 17:12 20:08 WBC (4.50-10.00) X 10*3/uL RBC (4.40-5.60) X 10*6/uL Hgb (13.0-17.0) g/dL Hct (39.6-50.0) % MCV (80.0-97.0) FL MCH (27.0-32.0) pg Plt Count (140-440) X 10*3/uL Sodium (135-145) mmol/L Anion Gap (4.00-12.00) mmol/L Glucose (70-110) mg/dL POC Glucose (mg/dL) 159 H 185 H (70-110) mg/dL Methylmalonic Acid 0.44 H (<0.40) umol/L Procalcitonin (0.02-0.09) ng/mL 10/15/23 10/15/23 10/15/23 Range/Units 06:25 06:25 06:25 WBC 4.34 L (4.50-10.00) X 10*3/uL RBC 3.66 L (4.40-5.60) X 10*6/uL Hgb 12.4 L (13.0-17.0) g/dL Hct 37.4 L (39.6-50.0) % MCV 102.2 H (80.0-97.0) FL MCH 33.9 H (27.0-32.0) pg Plt Count 96 L (140-440) X 10*3/uL Sodium 147 H (135-145) mmol/L Anion Gap 12.40 H (4.00-12.00) mmol/L Glucose 140 H (70-110) mg/dL POC Glucose (mg/dL) (70-110) mg/dL Methylmalonic Acid (<0.40) umol/L Procalcitonin 0.11 H (0.02-0.09) ng/mL 10/15/23 10/15/23 Range/Units 07:16 12:10 WBC (4.50-10.00) X 10*3/uL RBC (4.40-5.60) X 10*6/uL Hgb (13.0-17.0) g/dL Hct (39.6-50.0) % MCV (80.0-97.0) FL MCH (27.0-32.0) pg Plt Count (140-440) X 10*3/uL Sodium (135-145) mmol/L Anion Gap (4.00-12.00) mmol/L Glucose (70-110) mg/dL POC Glucose (mg/dL) 139 H 151 H (70-110) mg/dL Methylmalonic Acid (<0.40) umol/L Procalcitonin (0.02-0.09) ng/mL Diabetes panel 10/15/23 Range/Units 06:25 Sodium 147 H (135-145) mmol/L Potassium 4.6 (3.5-5.5) mmol/L Chloride 108 (96-109) mmol/L Carbon Dioxide 26.6 (21.6-31.8) mmol/L BUN 15.4 (9.0-27.0) mg/dL Creatinine 0.9 (0.6-1.5) mg/dL Glucose 140 H (70-110) mg/dL Calcium 9.4 (8.7-10.3) mg/dL Calcium panel 10/15/23 Range/Units 06:25 Calcium 9.4 (8.7-10.3) mg/dL Pituitary panel 10/15/23 Range/Units 06:25 Sodium 147 H (135-145) mmol/L Potassium 4.6 (3.5-5.5) mmol/L Chloride 108 (96-109) mmol/L Carbon Dioxide 26.6 (21.6-31.8) mmol/L BUN 15.4 (9.0-27.0) mg/dL Creatinine 0.9 (0.6-1.5) mg/dL Glucose 140 H (70-110) mg/dL Calcium 9.4 (8.7-10.3) mg/dL Adrenal panel 10/15/23 Range/Units 06:25 Sodium 147 H (135-145) mmol/L Potassium 4.6 (3.5-5.5) mmol/L Chloride 108 (96-109) mmol/L Carbon Dioxide 26.6 (21.6-31.8) mmol/L BUN 15.4 (9.0-27.0) mg/dL Creatinine 0.9 (0.6-1.5) mg/dL Glucose 140 H (70-110) mg/dL Calcium 9.4 (8.7-10.3) mg/dL
[2023-10-15 17:46] LABS: Glucose,Whole Blood 161 mg/dL (70-110)
[2023-10-15 20:47] LABS: Glucose,Whole Blood 205 mg/dL (70-110)
[2023-10-16] MEDS: ACETAMINOPHEN TAB 325 MG TAB PO PRN (01:25)
[2023-10-16] MEDS: IPRATROPIUM-ALBUTEROL 3 ML NEB INHALATION PRN (01:29)
[2023-10-16 02:13] LABS: Glucose,Whole Blood 183 mg/dL (70-110)
[2023-10-16 02:39] LABS: Allen Test Performed? Yes
[2023-10-16 02:46] LABS: ABG PH 7.46 (7.35-7.45)
[2023-10-16 02:47] LABS: ABG Base Excess 4.1 mmol/L; ABG HCO3 28 mmol/L (21-25); ABG Oxygen Saturation 94.9 % (94-97); ABG PCO2 40 mmHg (35-45); ABG PO2 111 mmHg (83-108); ABG TCO2 29 mmol/L (19-24)
[2023-10-16] MEDS: PIPERACILLIN-TAZOBACTAM 3.375 GM in SODIUM CHLORIDE 0.9% 100 ML IVPB SCH (03:00)
[2023-10-16] MEDS: methylPREDNISolone SOD SUCCI 125 MG/2 ML VIAL IV STA (03:00)
[2023-10-16] MEDS: FUROSEMIDE 10 MG/ML 4 ML VIAL IV STA (03:00)
[2023-10-16 03:19] LABS: Glucose,Whole Blood 196 mg/dL (70-110)
[2023-10-16 03:26] LABS: African American GFR (CKD) >90 (>60 ml/min/1.73 sqM); Anion Gap 10 mmol/L; Blood Urea Nitrogen 18 mg/dL (9-20); Calcium 9.1 mg/dL (8.4-10.2); Carbon Dioxide 23 mmol/L (22-30); Chloride 104 mmol/L (98-107); Glucose 179 mg/dL (74-99); Non-African American GFR(CKD) >90 (>60 ml/min/1.73 sqM); Sodium 137 mmol/L (137-145)
[2023-10-16 03:28] LABS: Basophils % (A) 0 %; Eosinophils # (A) 0.1 k/uL (0-0.7); Eosinophils % (A) 1 %; HCT 39.1 % (39.0-53.0); HGB 13.2 gm/dL (13.0-17.5); Lymphocytes # (A) 0.8 k/uL (1.0-4.8); Lymphocytes % (A) 11 %; MCH 34.4 pg (25.0-35.0); MCHC 33.9 g/dL (31.0-37.0); MCV 101.7 fL (80.0-100.0); Macrocytosis Slight; Mean Platelet Volume 8.4; Monocytes # (A) 0.5 k/uL (0-1.0); Monocytes % (A) 7 %; Neutrophils # (A) 5.7 k/uL (1.3-7.7); Neutrophils % (A) 79 %; RBC 3.84 m/uL (4.30-5.90); RDW 13.5 % (11.5-15.5); WBC 7.3 k/uL (3.8-10.6)
[2023-10-16 03:35] LABS: NT-Pro-B-Type Natriuretic Pept 166 pg/mL
[2023-10-16 03:38] LABS: Platelet Count 91 k/uL (150-450)
--- NOTE | 2023-10-16 05:02 | XR ---
EXAM: XR Chest, 1 View CLINICAL HISTORY: Respiratory distress TECHNIQUE: Frontal view of the chest. COMPARISON: Chest 2 views dated 10/15/2023 at 0730 hrs. FINDINGS: Lungs: Diminished lung volumes. Subsegmental changes noted in the infrahilar regions bilaterally. The lungs are otherwise clear. The pulmonary vasculature demonstrates no significant alteration or abnormality. Pleural space: The left costophrenic margin is less conspicuous but is thought to be stable. The right costophrenic margin is sharp. No pneumothorax. Heart: Unremarkable. No cardiomegaly. Mediastinum: The mediastinal contours are stable. The trachea is midline. Bones/joints: Unremarkable. No acute fracture. IMPRESSION: Diminished lung volumes. Subsegmental presumed atelectatic changes noted in the infrahilar regions bilaterally. The lungs are otherwise clear. The pulmonary vasculature demonstrates no significant alteration or abnormality. No large pleural effusion or pneumothorax.
[2023-10-16 05:55] LABS: Basophils % (A) 0 %; Eosinophils % (A) 0 %; HCT 41.1 % (39.0-53.0); Lymphocytes # (A) 0.6 k/uL (1.0-4.8); Lymphocytes % (A) 8 %; MCV 100.1 fL (80.0-100.0); Mean Platelet Volume 8.1; Monocytes # (A) 0.3 k/uL (0-1.0); Monocytes % (A) 4 %; Neutrophils # (A) 6.5 k/uL (1.3-7.7); Neutrophils % (A) 87 %; RDW 13.3 % (11.5-15.5); WBC 7.5 k/uL (3.8-10.6)
[2023-10-16 05:57] LABS: Platelet Count 83 k/uL (150-450)
[2023-10-16 06:09] LABS: African American GFR (CKD) >90 (>60 ml/min/1.73 sqM); Anion Gap 11 mmol/L; Blood Urea Nitrogen 19 mg/dL (9-20); Carbon Dioxide 24 mmol/L (22-30); Chloride 102 mmol/L (98-107); Glucose 226 mg/dL (74-99); Magnesium 1.6 mg/dL (1.6-2.3); Non-African American GFR(CKD) >90 (>60 ml/min/1.73 sqM); Sodium 137 mmol/L (137-145)
[2023-10-16] MEDS: MAGNESIUM SULFATE-D5W PMX 1 GM in DEXTROSE/WATER 1 100ML.BAG IVPB SCH (06:38)
--- NOTE | 2023-10-16 06:38 | XR ---
EXAMINATION TYPE: XR chest 1V DATE OF EXAM: 10/16/2023 COMPARISON: 10/16/2023 HISTORY: Respiratory distress TECHNIQUE: Single frontal view of the chest is obtained. FINDINGS: There is suboptimal inspiration. The lungs are clear consolidative and interstitial opacity. There is no pleural effusion or pneumothorax. Heart and pulmonary vasculature are normal for technique. The osseous structures are intact. IMPRESSION: No acute cardiopulmonary disease with no significant interval change.
[2023-10-16 06:41] LABS: Glucose,Whole Blood 242 mg/dL (70-110)
[2023-10-16] MEDS: CYANOCOBALAMIN 1,000 MCG/ML 1 ML VIAL IM SCH (08:58)
[2023-10-16 11:50] LABS: Glucose,Whole Blood 342 mg/dL (70-110)
--- NOTE | 2023-10-16 12:41 | P.CNPUL ---
History of Present Illness Consult date: 10/16/23 History of present illness: 64-year-old male patient presents to the intensive care unit because of increased oxygen requirements. He was placed on 6 L of oxygen by nasal cannula, this morning is on 4 L with a pulse ox of 95%. Reviewed the chest x-ray and it shows no acute cardiopulmonary process. He is calm and comfortable. No respiratory difficulties. No chest pain. No significant shortness of breath on today's evaluation. Mental status is improved. The white cell count at 7.5 hemoglobin is 14 and a platelet count is 83, electrolytes all within normal li mits. The patient is on DuoNeb updrafts. Blood sugars slightly elevated and the patient is currently on Levemir insulin 48 units and a sliding scale coverage. He is on IV Zosyn suspecting a wound infection at the site of the previously inserted pain pump where the patient has a superficial ulcer in that location. He came into the hospital originally on 10/13/2023 with generalized weakness and lethargy. He was quite obtunded and he is much improved at this point in time. His empiric antibiotic coverage with IV Zosyn. He is wheelchair-bound. He was diagnosed having normal pressure hydrocephalus and he was not found to be a good candidate for a METALLURGICAL SPECIALIST shunt. Neurology on the case for now. No seizure activity. He has previous history of seizure disorder. No witnessed seizures. He is currently on Vimpat. He also has a previous history of a right truncal ischemic infarct. He has a combination of comorbidities, primary stable at this point in time. His last seizure activity was back in 2012 and he has been seizure-free. Last EEG was done in February 2023 showed mild encephalopathy. Review of Systems CONSTITUTIONAL: Denies any recent significant weight loss or weight gain. Patient is debilitated and he is wheelchair-bound. He has chronic muscle atrophy in lower extremities bilaterally. He suffers from chronic back pain. EYES: Denies change in vision. EARS, NOSE, MOUTH, THROAT: Denies headaches, denies sore throat. CARDIOVASCULAR: Denies chest pain, palpitations or syncopal episodes. RESPIRATORY: Positive for shortness of breath, cough, congestion no hemoptysis. No significant shortness of breath at this point in time at time of my eval uation. GASTROINTESTINAL: Denies change in appetite, denies abdominal pain GENITOURINARY: Denies hematuria, denies infections. MUSKULOSKELETAL: Denies pain, denies swelling. Motor weakness in lower e xtremities bilaterally. INTEGUMENTARY: Denies rash, denies eczema. NEUROLOGICAL: Denies recent memory loss, no recent seizure activity. Mental status is appropriate at time of my evaluation. PSYCHIATRIC: Denies anxiety, denies depression. HEMATOLOGIC/LYMPHATIC: Denies anemia, denies enlarged lymph nodes. Past Medical History Past Medical History: COPD, CVA/TIA, Diabetes Mellitus, Hyperlipidemia, Hypertension, Memory Impairment, Myocardial Infarction (AR), Prostate Disorder, Seizure Disorder, Skin Disorder Additional Past Medical History / Comment(s): duodenal ulcer, pain and numbness cyrus legs and feet,pain pump in back, anemia. TIA X3, HEPATITIS C PAST HISTORY, LAST SEIZURE 2012,hiatal hernia Last Myocardial Infarction Date:: POSSIBLE AR 2012 History of Any Multi-Drug Resistant Organisms: None Reported Past Surgical History: Appendectomy, Back Surgery, Heart Catheterization, Orthopedic Surgery Additional Past Surgical History / Comment(s): titanium lyn in lt leg, skin graph to rt 1st and middle finger, lt eardum replaced, cyrus. foot surgery to arch, cataract surgery bilateral with implant,skin graft left leg Past Anesthesia/Blood Transfusion Reactions: No Reported Reaction Past Psychological History: Anxiety, Depression Additional Psychological History / Comment(s): past history of depression Smoking Status: Former smoker Past Alcohol Use History: None Reported Additional Past Alcohol Use History / Comment(s): Pt started smoking in 1974 and is a 1-2ppd smoker Past Drug Use History: None Reported - Past Family History Mother Family Medical History: Diabetes Mellitus, Pulmonary Embolus Father Additional Family Medical History / Comment(s): Father had pain problems/hallucinations. He committed suicide. Medications and Allergies Home Medications Medication Instructions Recorded Confirmed Type Albuterol Sulfate [Proair Hfa] 2 puff INHALATION RT-QID PRN 10/22/20 10/12/23 History Ferrous Sulfate [Iron (65 MG 325 mg PO DAILY 12/10/20 10/12/23 History Elemental)] Clopidogrel [Plavix] 75 mg PO HS 06/30/21 10/12/23 History Primidone [Mysoline] 50 mg PO HS 06/30/21 10/12/23 History Escitalopram [Lexapro] 20 mg PO HS 02/23/23 10/12/23 History Rosuvastatin Calcium [Crestor] 40 mg PO HS 03/14/23 10/12/23 History Acetaminophen Tab [Tylenol] 325 mg PO Q6HR PRN tab 03/16/23 10/12/23 Rx Lacosamide [Vimpat] 200 mg PO BID #6 tab 03/16/23 10/12/23 Rx Aspirin EC [Ecotrin Low Dose] 81 mg PO DAILY 05/22/23 10/12/23 History Multivitamins, Thera [Multivitamin 1 tab PO DAILY 05/22/23 10/12/23 History (formulary)] Insulin Detemir [Levemir Flexpen] 48 units SQ DAILY 06/15/23 10/12/23 History Lactulose [Cephulac] 20 gm PO TID 09/08/23 10/12/23 History amLODIPine [Norvasc] 2.5 mg PO BID 09/08/23 10/12/23 History Budesonide-Formot 160-4.5 Mcg 2 puff INHALATION RT-BID #1 each 09/10/23 10/12/23 Rx [Symbicort 160-4.5 Mcg Inhaler] Ipratropium-Albuterol Nebulize 3 ml INHALATION RT-QID PRN #120 09/10/23 10/12/23 Rx [Duoneb 0.5 mg-3 mg/3 ml Soln] each Insulin Lispro [humaLOG Kwikpen] See Protocol SQ ACHS 10/12/23 10/12/23 History Allergies Allergy/AdvReac Type Severity Reaction Status Date / Time morphine AdvReac Nausea & Verified 10/12/23 20:25 Vomiting Physical Exam Vitals: Vital Signs Temp Pulse Pulse Resp BP BP Pulse Ox 10/16/23 08:59 97 10/16/23 08:16 68 10/16/23 07:58 64 98 10/16/23 07:00 60 21 121/59 97 10/16/23 06:30 61 23 123/60 96 10/16/23 06:00 63 21 132/63 96 10/16/23 05:30 64 36 H 134/74 94 L 10/16/23 05:10 67 8 L 134/74 96 10/16/23 05:00 65 22 94 L 10/16/23 04:50 66 23 94 L 10/16/23 04:40 65 24 133/63 92 L 10/16/23 04:30 69 18 92 L 10/16/23 04:20 68 28 H 92 L 10/16/23 04:10 67 22 146/74 92 L 10/16/23 04:00 100.7 F H 70 26 H 144/74 93 L 10/16/23 03:50 69 11 L 97 10/16/23 03:40 69 27 H 139/66 92 L 10/16/23 03:30 70 25 H 96 10/16/23 03:27 69 18 138/88 94 L 10/16/23 03:01 100.9 F H 70 18 134/68 92 L 10/16/23 02:57 92 L 10/16/23 02:15 103.1 F H 74 18 147/68 92 L 10/16/23 01:37 65 10/16/23 01:30 103.0 F H 69 20 170/68 94 L 10/16/23 01:29 62 10/15/23 19:51 60 10/15/23 19:38 100 F H 68 17 146/61 92 L 10/15/23 19:37 62 10/15/23 16:45 68 10/15/23 16:33 64 10/15/23 12:55 60 10/15/23 12:44 60 10/15/23 12:08 98.0 F 63 19 151/80 92 L Intake and Output 10/15/23 10/16/23 10/16/23 22:59 06:59 14:59 Intake Total 100 100 Output Total 500 1470 200 Balance -500 -1370 -100 Intake: IV 100 100 Magnesium Sulfate-D5w Pmx 100 1 gm In Dextrose/Water 1 100ml.bag @ 100 mls/hr IVPB Q1H [facility] Rx#: [id number] Piperacillin-Tazobactam 3 100 .375 gm In Sodium Chloride 0.9% 100 ml @ 25 mls/hr IVPB Q8H [facility] Rx#: [id number] Output: Urine 500 1470 200 Other: Voiding Method External Catheter Indwelling Catheter GENERAL EXAM: Alert, 63-year-old male, resting comfortably in bed, currently on 4 L of oxygen by nasal cannula, awake and alert and communicating HEAD: Normocephalic. EYES: Normal reaction of pupils, equal size. NOSE: Clear with pink turbinates. THROAT: No erythema or exudates. NECK: No masses, no JVD. CHEST: No chest wall deformity. LUNGS: Equal air entry with no crackles, wheeze, rhonchi or dullness. CVS: S1 and S2 normal with no audible murmur, regular rhythm. ABDOMEN: No hepatosplenomegaly, normal bowel sounds, no guarding or rigidity. SPINE: No scoliosis or deformity SKIN: No rashes, pressure ulcer of the previously inserted pain pump with superficial ulceration and some minimal amount of purulence. CENTRAL NERVOUS SYSTEM: Deficits from previous CVA, tone is normal in all 4 extremities. EXTREMITIES: Weakness, wheelchair-bound, there is no peripheral edema. No clubbing, no cyanosis. Peripheral pulses are intact. Results - Laboratory Findings CBC and BMP: 10/16/23 04:59 10/16/23 04:59 ABG ABG pH 7.46 (7.35-7.45) H 10/16/23 02:35 ABG pCO2 40 mmHg (35-45) 10/16/23 02:35 ABG pO2 111 mmHg (83-108) H 10/16/23 02:35 ABG O2 Saturation 94.9 % (94-97) 10/16/23 02:35 PT/INR, D-dimer PT 10.7 sec (10.0-12.5) 10/12/23 15:13 INR 1.0 (<1.2) 10/12/23 15:13 D-Dimer 0.81 mg/L FEU (<0.60) H 10/16/23 02:40 Abnormal lab findings: Abnormal Labs 10/12/23 10/12/23 10/12/23 13:07 15:13 18:34 WBC RBC 4.11 L Hgb Hct MCV 100.8 H MCH Plt Count 116 L D Lymphocytes # D-Dimer ABG pH ABG pCO2 46 H ABG pO2 67 L ABG HCO3 30 H ABG Total CO2 31 H Sodium Anion Gap Glucose 156 H POC Glucose (mg/dL) Methylmalonic Acid Procalcitonin 10/13/23 10/13/23 10/13/23 06:13 11:45 17:09 WBC RBC Hgb Hct MCV MCH Plt Count Lymphocytes # D-Dimer ABG pH ABG pCO2 ABG pO2 ABG HCO3 ABG Total CO2 Sodium Anion Gap Glucose POC Glucose (mg/dL) 221 H 234 H 187 H Methylmalonic Acid Procalcitonin 10/13/23 10/13/23 10/14/23 17:24 20:07 07:03 WBC RBC Hgb Hct MCV MCH Plt Count Lymphocytes # D-Dimer ABG pH ABG pCO2 ABG pO2 ABG HCO3 ABG Total CO2 Sodium Anion Gap Glucose POC Glucose (mg/dL) 170 H 132 H Methylmalonic Acid 0.44 H Procalcitonin 10/14/23 10/14/23 10/14/23 12:16 17:12 20:08 WBC RBC Hgb Hct MCV MCH Plt Count Lymphocytes # D-Dimer ABG pH ABG pCO2 ABG pO2 ABG HCO3 ABG Total CO2 Sodium Anion Gap Glucose POC Glucose (mg/dL) 153 H 159 H 185 H Methylmalonic Acid Procalcitonin 10/15/23 10/15/23 10/15/23 06:25 06:25 06:25 WBC 4.34 L RBC 3.66 L Hgb 12.4 L Hct 37.4 L MCV 102.2 H MCH 33.9 H Plt Count 96 L Lymphocytes # D-Dimer ABG pH ABG pCO2 ABG pO2 ABG HCO3 ABG Total CO2 Sodium 147 H Anion Gap 12.40 H Glucose 140 H POC Glucose (mg/dL) Methylmalonic Acid Procalcitonin 0.11 H 10/15/23 10/15/23 10/15/23 07:16 12:10 17:44 WBC RBC Hgb Hct MCV MCH Plt Count Lymphocytes # D-Dimer ABG pH ABG pCO2 ABG pO2 ABG HCO3 ABG Total CO2 Sodium Anion Gap Glucose POC Glucose (mg/dL) 139 H 151 H 161 H Methylmalonic Acid Procalcitonin 10/15/23 10/16/23 10/16/23 20:40 02:11 02:35 WBC RBC Hgb Hct MCV MCH Plt Count Lymphocytes # D-Dimer ABG pH 7.46 H ABG pCO2 ABG pO2 111 H ABG HCO3 28 H ABG Total CO2 29 H Sodium Anion Gap Glucose POC Glucose (mg/dL) 205 H 183 H Methylmalonic Acid Procalcitonin 10/16/23 10/16/23 10/16/23 02:40 02:40 02:40 WBC RBC 3.84 L Hgb Hct MCV 101.7 H MCH Plt Count 91 L Lymphocytes # 0.8 L D-Dimer 0.81 H ABG pH ABG pCO2 ABG pO2 ABG HCO3 ABG Total CO2 Sodium Anion Gap Glucose 179 H POC Glucose (mg/dL) Methylmalonic Acid Procalcitonin 10/16/23 10/16/23 10/16/23 03:16 04:59 04:59 WBC RBC 4.10 L Hgb Hct MCV 100.1 H MCH Plt Count 83 L Lymphocytes # 0.6 L D-Dimer ABG pH ABG pCO2 ABG pO2 ABG HCO3 ABG Total CO2 Sodium Anion Gap Glucose 226 H POC Glucose (mg/dL) 196 H Methylmalonic Acid Procalcitonin 10/16/23 06:39 WBC RBC Hgb Hct MCV MCH Plt Count Lymphocytes # D-Dimer ABG pH ABG pCO2 ABG pO2 ABG HCO3 ABG Total CO2 Sodium Anion Gap Glucose POC Glucose (mg/dL) 242 H Methylmalonic Acid Procalcitonin - Diagnostic Findings Chest x-ray: image reviewed Assessment and Plan Plan: Altered mental status of unclear etiology, improved. There may be underlying encephalopathy at the time of admission and the patient is currently appropriate and awake and alert. Neurology on the case. No seizure activity has been noted . He has previous history of seizure disorder. No seizure activity has been witnessed and the patient has been maintained on Vimpat. The patient also has had previous history of CVA. The CAT scan of the brain that was done on 10/12/2023 showed no acute abnormalities. Moderate ventriculomegaly which may be essentially consistent with normal pressure hydrocephalus. He has a remote right frontal infarct. Acute hypoxic respiratory failure, 4 liters 02, chest x-ray shows no acute abnormalities. Fever, currently afebrile and patient is covered empirically with IV Zosyn. Rule out underlying urine tract infection. He does have a superficial wound infection on his buttocks at the site of the pain pump insertion. Superficial wound over the buttocks without any abscess formation. General surgery is on the case. COPD with chronic hypoxic respiratory failure maintained on home O2 at 2 L History of CVA right frontal 1 maintained on Vimpat History of seizure disorder Chronic neck and back pain with pain Former smoker Memory impairment, consider normal pressure hydrocephalus Hypertension Diabetes mellitus, type II Hypertension History of hepatitis C with secondary liver cirrhosis Anxiety/depression Chronic thrombocytopenia Poor overall functional performance based on the above-mentioned multiple comorbidities Plan Obtain wound cultures and blood cultures and check a procalcitonin level Wound care and the patient has an Optifoam in place Continue IV Zosyn Respiratory status is stable Mental status is improved Outpatient medication has been resumed and the patient is being seen by neurology and infectious diseases. Surgical evaluation of the wound on the butt ocks. Transferred back to medical surgical floor
--- NOTE | 2023-10-16 13:17 | P.PN ---
Subjective Progress Note Date: 10/16/23 63 yo M with PMH of NPH, CVA/TIA, intrathecal pain pump in place, T2DM who was brought to the ED by his for AMS. reports he has been lethargic, unable to follow a conversation and increasingly weak. Ever since his diagnosis of NPH a few months ago he has been increasingly weak and spending more time in his wheelchair. Pt currently denies complaint, no chest pain, shortness of breath, cough, fever, chills, headache. On presentation WBC wnl, Hgb 14, plt 116, pt hypertensive to 172/72. CMP is wnl, trop negative, respiratory virus panel negative. Ammonia is less than 9. Chest x-ray showed COPD otherwise no acute process. EKG shows sinus bradycardia with heart rate of 51. CT of the head showed no acute intracranial process. 08/14/2023 Patient is confused to time place and person. Frequent saying his name but he could not know if he is in the hospital and states he thought he is at [facility]. Also he is slow to respond and he does not look to has insight into his illness. Although he answers some questions. Initially was brought by the because of increasing lethargy and weakness, as per her description he has good days and bad days of memory Patient with no dyspnea or chest pain. Abdominal soft. Patient is hemodynamically stable except for mild bradycardia with heart rate about 50. CBC is unremarkable except for mild thrombocytopenia at 116 BMP liver enzymes INR and troponin were unremarkable. Lactic acid is normal at 1.3 B12 568 and folate 28. Ammonia less than 9. EKG sinus bradycardia at [address]-T changes Influenza A and type B, RSV, SARS (coronavirus) are undetected CT of the brain is negative for acute process ABG showed normal pH with pCO2 is not elevated but located on 2 hours 7 10/15/2023 Patient is awake and alert more than yesterday he knows he is in the hospital and he can tell me the date October 15, 2023 however he is still disoriented to person He looks more awake and follow commands and relaxed. He denies any pain or any other new complaints However patient was noticed to have large left buttock mass, with smooth borders and mobile with some superficial ulcer on the top Will check ultrasound and consult surgical team as well for further evaluation 10/16/23: Patient seen and evaluated bedside, blood work reviewed, CBC shows WBC 7.4 hemoglobin 14 platelet count of 93, serum chemistry showed sodium 137 potassium and creatinine within normal limits N-terminal proBNP 166. Patient does have cough and productive phlegm Physical exam GENERAL: The patient is alert and oriented x0, has no insight, not in any acute distress. Well developed, well nourished. HEENT: Pupils are round and equally reacting to light. EOMI. Normocephalic, atraumatic. No pharyngeal erythema. No thyromegaly. CARDIOVASCULAR: S1 and S2 present. No murmurs, rubs, or gallops. PULMONARY: Chest is clear to auscultation, no wheezing , no crackles. ABDOMEN: Soft, nontender, nondistended, normoactive bowel sounds. No palpable organomegaly. MUSCULOSKELETAL: Large left buttock mass, with smooth surface, slightly mobile with very small punctate ulcer on the top with white base but no significant discharge or surrounding cellulitis. EXTREMITIES: No cyanosis, clubbing, or pedal edema. NEUROLOGICAL: Gross neurological examination did not reveal any focal deficits. SKIN: No rashes. no petechiae. Assessment and plan Left buttock cellulitis with diabetic skin ulcer stage II ulceration Acute metabolic encephalopathy on top of chronic dementia Acute hypoxemic respiratory failure, acute tracheobronchitis Acute exacerbation of COPD History of seizure disorder Hypothyroidism Coronary artery disease on aspirin and Plavix Plan: * Dilatation obtained from general surgery, continue IV antibiotics no surgical intervention recommended ultrasound negative for abscess, continue IV Zosyn * Continue with offloading, continue with wound care * In regards to history of hypertension continue patient on amlodipine * Regards to acute hypoxemic respiratory failure/acute exacerbation of COPD continue patient on breathing treatments IV Solu-Medrol, DuoNeb, Symbicort, pulmonary medicine consult * History of seizure disorder continue patient on Vimpat Objective - Vital Signs Vital signs: Vital Signs Temp 100.7 F H 10/16/23 04:00 Pulse 68 10/16/23 08:16 Resp 21 10/16/23 07:00 BP 121/59 10/16/23 07:00 Pulse Ox 97 10/16/23 08:59 FiO2 Intake & Output 10/15/23 10/16/23 10/16/23 18:59 06:59 18:59 Intake Total 100 100 Output Total 500 1470 200 Balance -500 -1370 -100 Intake: IV 100 100 Magnesium Sulfate-D5w Pmx 100 1 gm In Dextrose/Water 1 100ml.bag @ 100 mls/hr IVPB Q1H [facility] Rx#: [id number] Piperacillin-Tazobactam 3 100 .375 gm In Sodium Chloride 0.9% 100 ml @ 25 mls/hr IVPB Q8H [facility] Rx#: [id number] Output: Urine 500 1470 200 Other: Voiding Method External Catheter Indwelling Catheter - Labs CBC & Chem 7: 10/16/23 04:59 10/16/23 04:59 Labs: Abnormal Lab Results - Last 24 Hours (Table) 10/15/23 10/15/23 10/15/23 Range/Units 12:10 17:44 20:40 RBC (4.30-5.90) m/uL MCV (80.0-100.0) fL Plt Count (150-450) k/uL Lymphocytes # (1.0-4.8) k/uL D-Dimer (<0.60) mg/L FEU ABG pH (7.35-7.45) ABG pO2 (83-108) mmHg ABG HCO3 (21-25) mmol/L ABG Total CO2 (19-24) mmol/L Glucose (74-99) mg/dL POC Glucose (mg/dL) 151 H 161 H 205 H (70-110) mg/dL 10/16/23 10/16/23 10/16/23 Range/Units 02:11 02:35 02:40 RBC 3.84 L (4.30-5.90) m/uL MCV 101.7 H (80.0-100.0) fL Plt Count 91 L (150-450) k/uL Lymphocytes # 0.8 L (1.0-4.8) k/uL D-Dimer (<0.60) mg/L FEU ABG pH 7.46 H (7.35-7.45) ABG pO2 111 H (83-108) mmHg ABG HCO3 28 H (21-25) mmol/L ABG Total CO2 29 H (19-24) mmol/L Glucose (74-99) mg/dL POC Glucose (mg/dL) 183 H (70-110) mg/dL 10/16/23 10/16/23 10/16/23 Range/Units 02:40 02:40 03:16 RBC (4.30-5.90) m/uL MCV (80.0-100.0) fL Plt Count (150-450) k/uL Lymphocytes # (1.0-4.8) k/uL D-Dimer 0.81 H (<0.60) mg/L FEU ABG pH (7.35-7.45) ABG pO2 (83-108) mmHg ABG HCO3 (21-25) mmol/L ABG Total CO2 (19-24) mmol/L Glucose 179 H (74-99) mg/dL POC Glucose (mg/dL) 196 H (70-110) mg/dL 10/16/23 10/16/23 10/16/23 Range/Units 04:59 04:59 06:39 RBC 4.10 L (4.30-5.90) m/uL MCV 100.1 H (80.0-100.0) fL Plt Count 83 L (150-450) k/uL Lymphocytes # 0.6 L (1.0-4.8) k/uL D-Dimer (<0.60) mg/L FEU ABG pH (7.35-7.45) ABG pO2 (83-108) mmHg ABG HCO3 (21-25) mmol/L ABG Total CO2 (19-24) mmol/L Glucose 226 H (74-99) mg/dL POC Glucose (mg/dL) 242 H (70-110) mg/dL
[2023-10-16 15:45] VITALS: BMI 32.8
[2023-10-16 16:46] LABS: Glucose,Whole Blood 248 mg/dL (70-110)
[2023-10-16 20:04] LABS: Glucose,Whole Blood 199 mg/dL (70-110)
[2023-10-16] MEDS: methylPREDNISolone SOD SUCCI 40 MG/ML 1 ML VIAL IV SCH (20:27)
[2023-10-17 00:26] LABS: Glucose,Whole Blood 216 mg/dL (70-110)
[2023-10-17 02:05] LABS: Glucose,Whole Blood 236 mg/dL (70-110)
[2023-10-17 07:51] LABS: Glucose,Whole Blood 243 mg/dL (70-110)
[2023-10-17 09:31] LABS: Basophils # (A) 0 X 10*3/uL (0.00-0.10); Basophils % (A) 0 %; Eosinophils # (A) 0 X 10*3/uL (0.04-0.35); Eosinophils % (A) 0 %; HCT 35.2 % (39.6-50.0); HGB 11.8 g/dL (13.0-17.0); Lymphocytes # (A) 0.58 X 10*3/uL (0.90-5.00); Lymphocytes % (A) 9.1 %; MCH 33.3 pg (27.0-32.0); MCHC 33.5 g/dL (32.0-37.0); MCV 99.4 FL (80.0-97.0); Mean Platelet Volume 10.9 FL (9.5-12.2); Monocytes # (A) 0.35 X 10*3/uL (0.20-1.00); Monocytes % (A) 5.5 %; NRBC Per 100 WBC 0 X 10*3/uL (0.00-0.01); Neutrophils # (A) 5.46 X 10*3/uL (1.80-7.70); Neutrophils % (A) 85.2 %; Platelet Count 86 X 10*3/uL (140-440); RBC 3.54 X 10*6/uL (4.40-5.60); RDW 12.5 % (11.5-14.5)
[2023-10-17 09:41] LABS: Magnesium 2.1 mg/dL (1.5-2.4)
[2023-10-17 09:49] LABS: Blood Urea Nitrogen 27.5 mg/dL (9.0-27.0); Calcium 9.2 mg/dL (8.7-10.3); Carbon Dioxide 25.2 mmol/L (21.6-31.8); Chloride 99 mmol/L (96-109); Glucose 260 mg/dL (70-110); Potassium 4.7 mmol/L (3.5-5.5); Sodium 137 mmol/L (135-145)
--- NOTE | 2023-10-17 10:11 | P.PN ---
Subjective Progress Note Date: 10/16/23 Patient was seen for a follow-up. Patient is in ICU. He was transferred because oxygen saturation was 86%, with a fever of 103. He was congested with diminished breath sounds. He has some level of consciousness changes and he was transferred to the ICU. No neurological reasons. Per nursing report: "Patient had AM vitals taken and his oxygen level was 86% and fever of 103F. He sounded congested and diminished breath sounds. He was placed on 3L O2 and breathing treatment was given which helped for a bit. We called an A-team when his O2 levels went back down and his fever was 103.1F rectally with some LOC changes. He was placed on 15L high flow and given tylenol along with ice. During the A-team, we ordered labs of lactic acid, D. Dimer, Pro-BNP, CBC, BMP, and ABGs as well got orders from on-call doctor for 40mg IV lasix and 60mg solu- medrol stat. Chest x-ray was done and zosyn was ordered for possible PNA. Consulted pulmonary and got transfer order for ICU. PAtient's vitals when trans ferred were better with BP of 134/68, 70 HR, 100.9F, 92% on 15L high flow. Family and joss house keeper notified as well as primary DR. truong right arm IV started during A-team as well. RN gave bedside report to ICU nurse.". At present patient was seen in the ICU. He appears more comfortable. Patient's was present. Objective - Vital Signs Vital signs: Vital Signs Temp 98.3 F 10/16/23 08:00 Pulse 67 10/16/23 11:52 Resp 21 10/16/23 09:30 BP 130/60 10/16/23 09:30 Pulse Ox 95 10/16/23 09:30 FiO2 Intake & Output 10/15/23 10/16/23 10/16/23 18:59 06:59 18:59 Intake Total 100 200 Output Total 500 1470 400 Balance -500 -1370 -200 Intake: IV 100 200 Magnesium Sulfate-D5w Pmx 200 1 gm In Dextrose/Water 1 100ml.bag @ 100 mls/hr IVPB Q[facility]H [facility] Rx#: [id number] Piperacillin-Tazobactam 3 100 .375 gm In Sodium Chloride 0.9% 100 ml @ 25 mls/hr IVPB Q8H [facility] Rx#: [id number] Output: Urine 500 1470 400 Other: Voiding Method External Catheter Indwelling Catheter Indwelling Catheter - Exam Patient is alert and awake. He has some slow mentation. Tone is mildly increased. No obvious tremors at rest. He does appear bradykinetic. Rest of the examination unchanged. - Labs CBC & Chem 7: 10/17/23 06:55 10/17/23 06:55 Labs: Abnormal Lab Results - Last 24 Hours (Table) 10/15/23 10/15/23 10/16/23 Range/Units 17:44 20:40 02:11 RBC (4.30-5.90) m/uL MCV (80.0-100.0) fL Plt Count (150-450) k/uL Lymphocytes # (1.0-4.8) k/uL D-Dimer (<0.60) mg/L FEU ABG pH (7.35-7.45) ABG pO2 (83-108) mmHg ABG HCO3 (21-25) mmol/L ABG Total CO2 (19-24) mmol/L Glucose (74-99) mg/dL POC Glucose (mg/dL) 161 H 205 H 183 H (70-110) mg/dL 10/16/23 10/16/23 10/16/23 Range/Units 02:35 02:40 02:40 RBC 3.84 L (4.30-5.90) m/uL MCV 101.7 H (80.0-100.0) fL Plt Count 91 L (150-450) k/uL Lymphocytes # 0.8 L (1.0-4.8) k/uL D-Dimer (<0.60) mg/L FEU ABG pH 7.46 H (7.35-7.45) ABG pO2 111 H (83-108) mmHg ABG HCO3 28 H (21-25) mmol/L ABG Total CO2 29 H (19-24) mmol/L Glucose 179 H (74-99) mg/dL POC Glucose (mg/dL) (70-110) mg/dL 10/16/23 10/16/23 10/16/23 Range/Units 02:40 03:16 04:59 RBC 4.10 L (4.30-5.90) m/uL MCV 100.1 H (80.0-100.0) fL Plt Count 83 L (150-450) k/uL Lymphocytes # 0.6 L (1.0-4.8) k/uL D-Dimer 0.81 H (<0.60) mg/L FEU ABG pH (7.35-7.45) ABG pO2 (83-108) mmHg ABG HCO3 (21-25) mmol/L ABG Total CO2 (19-24) mmol/L Glucose (74-99) mg/dL POC Glucose (mg/dL) 196 H (70-110) mg/dL 10/16/23 10/16/23 10/16/23 Range/Units 04:59 06:39 11:49 RBC (4.30-5.90) m/uL MCV (80.0-100.0) fL Plt Count (150-450) k/uL Lymphocytes # (1.0-4.8) k/uL D-Dimer (<0.60) mg/L FEU ABG pH (7.35-7.45) ABG pO2 (83-108) mmHg ABG HCO3 (21-25) mmol/L ABG Total CO2 (19-24) mmol/L Glucose 226 H (74-99) mg/dL POC Glucose (mg/dL) 242 H 342 H (70-110) mg/dL Assessment and Plan Assessment: * Altered mental status, possible toxic metabolic encephalopathy. Reasons multifactorial as mentioned below. * Probable normal pressure hydrocephalus, progressively getting worse. Patient at present has significant extraparametal features of bradykinesia, increased tone, and gait imbalance. He also has memory loss and problems controlling urine. * Memory loss/cognitive impairment for the last 10 years * Left buttock cellulitis with diabetic ulcer. * Acute exacerbation of COPD. * History of stroke * History of cirrhosis * Macrocytosis, likely from chronic liver disease * History of multiple TIAs seizure disorder, on Vimpat. * Presence of pain pump * Essential tremor * Diabetes mellitus. Plan: * Patient has history of normal pressure hydrocephalus, but he has not undergone any workup for it, as his neurologist Dr. Lieberman staff did not believe that he is a good candidate for ventriculoperitoneal shunting. However he is still quite young, only 63 years of age, and has significant symptoms of NPH. He could be a good candidate for ventriculoperitoneal shunting. * Patient may be considered for a trial with Sinemet to see if it helps with his mobility. However if he gets any hallucinations, would consider stopping it. * Cannot perform large-volume tap at this time, as he is already on Plavix. * Recommend patient follow-up with neurosurgeon for further evaluation of probable NPH. * Patient's recent worsening is likely from underlying medical condition. * B12 568, folate 28.70, MMA elevated 0.44. Patient to receive vitamin B12 injections for 3 days. * Continue Vimpat 200 mg twice daily for seizure disorder * PT OT. Patient will be transferred to rehab once medically cleared. * Surgery also on board for buttock cellulitis. * Please call neurology if any other concerns. Dr. Umair Torres starting neurology service from Wednesday.
--- NOTE | 2023-10-17 11:32 | P.PN ---
Subjective Progress Note Date: 10/17/23 Had event yesterday and was in the ICU now transferred back to the floor. He denies abdominal pain. Diet as tolerated. No removal of pain stimulator along left buttock advised. Objective - Vital Signs Vital signs: Vital Signs Temp 97.7 F 10/17/23 07:49 Pulse 60 10/17/23 08:33 Resp 17 10/17/23 07:49 BP 122/68 10/17/23 07:49 Pulse Ox 95 10/17/23 08:20 FiO2 Intake & Output 10/16/23 10/17/23 10/17/23 18:59 06:59 18:59 Intake Total 200 Output Total 810 1100 Balance -610 -1100 Weight 95.254 kg Intake: IV 200 Magnesium Sulfate-D5w Pmx 200 1 gm In Dextrose/Water 1 100ml.bag @ 100 mls/hr IVPB Q1H [facility] Rx#: [id number] Output: Urine 810 1100 Other: Voiding Method Indwelling Catheter Indwelling Catheter - Labs CBC & Chem 7: 10/17/23 06:55 10/17/23 06:55 Labs: Abnormal Lab Results - Last 24 Hours (Table) 10/16/23 10/16/23 10/16/23 Range/Units 04:59 11:49 16:44 RBC (4.40-5.60) X 10*6/uL Hgb (13.0-17.0) g/dL Hct (39.6-50.0) % MCV (80.0-97.0) FL MCH (27.0-32.0) pg Plt Count (140-440) X 10*3/uL Lymphocytes # (0.90-5.00) X 10*3/uL Eosinophils # (0.04-0.35) X 10*3/uL Anion Gap (4.00-12.00) mmol/L BUN (9.0-27.0) mg/dL BUN/Creatinine Ratio (12.00-20.00) Ratio Glucose (70-110) mg/dL POC Glucose (mg/dL) 342 H 248 H (70-110) mg/dL Procalcitonin 0.24 H (0.02-0.09) ng/mL 10/16/23 10/17/23 10/17/23 Range/Units 20:02 00:25 02:03 RBC (4.40-5.60) X 10*6/uL Hgb (13.0-17.0) g/dL Hct (39.6-50.0) % MCV (80.0-97.0) FL MCH (27.0-32.0) pg Plt Count (140-440) X 10*3/uL Lymphocytes # (0.90-5.00) X 10*3/uL Eosinophils # (0.04-0.35) X 10*3/uL Anion Gap (4.00-12.00) mmol/L BUN (9.0-27.0) mg/dL BUN/Creatinine Ratio (12.00-20.00) Ratio Glucose (70-110) mg/dL POC Glucose (mg/dL) 199 H 216 H 236 H (70-110) mg/dL Procalcitonin (0.02-0.09) ng/mL 10/17/23 10/17/23 10/17/23 Range/Units 06:55 06:55 07:50 RBC 3.54 L (4.40-5.60) X 10*6/uL Hgb 11.8 L (13.0-17.0) g/dL Hct 35.2 L (39.6-50.0) % MCV 99.4 H (80.0-97.0) FL MCH 33.3 H (27.0-32.0) pg Plt Count 86 L (140-440) X 10*3/uL Lymphocytes # 0.58 L (0.90-5.00) X 10*3/uL Eosinophils # 0 L (0.04-0.35) X 10*3/uL Anion Gap 12.80 H (4.00-12.00) mmol/L BUN 27.5 H (9.0-27.0) mg/dL BUN/Creatinine Ratio 27.50 H (12.00-20.00) Ratio Glucose 260 H (70-110) mg/dL POC Glucose (mg/dL) 243 H (70-110) mg/dL Procalcitonin (0.02-0.09) ng/mL
[2023-10-17 12:18] LABS: Glucose,Whole Blood 165 mg/dL (70-110)
--- NOTE | 2023-10-17 12:51 | P.PN ---
Subjective Progress Note Date: 10/17/23 64-year-old male patient presents to the intensive care unit because of increased oxygen requirements. He was placed on 6 L of oxygen by nasal cannula, this morning is on 4 L with a pulse ox of 95%. Reviewed the chest x-ray and it shows no acute cardiopulmonary process. He is calm and comfortable. No respiratory difficulties. No chest pain. No significant shortness of breath on today's evaluation. Mental status is improved. The white cell count at 7.5 hemoglobin is 14 and a platelet count is 83, electrolytes all within normal limits. The patient is on DuoNeb updrafts. Blood sugars slightly elevated and the patient is currently on Levemir insulin 48 units and a sliding scale coverage. He is on IV Zosyn suspecting a wound infection at the site of the previously inserted pain pump where the patient has a superficial ulcer in that location. He came into the hospital originally on 10/13/2023 with generalized weakness and lethargy. He was quite obtunded and he is much improved at this point in time. His empiric antibiotic coverage with IV Zosyn. He is wheelchair-bound. He was diagnosed having normal pressure hydrocephalus and he was not found to be a good candidate for a [employer] shunt. Neurology on the case for now. No seizure activity. He has previous history of seizure disorder. No witnessed seizures. He is currently on Vimpat. He also has a previous history of a right truncal ischemic infarct. He has a combination of comorbidities, primary stable at this point in time. His last seizure activity was back in 2012 and he has been seizure-free. Last EEG was done in February 2023 showed mild encephalopathy. 10/17/2023, the patient is doing extremely well. No altered mentation. No shortness of breath or chest pain. Blood work shows a WC count 6.4 with a hemoglobin 11.8, BUN 27 with a creatinine of 1 and a sodium level of 137. He is on DuoNeb updrafts. He got moved out of the intensive care unit yesterday. He is afebrile. No signs of any sepsis at this point in time. Remains on empiric antibiotic coverage with IV Zosyn. Objective - Vital Signs Vital signs: Vital Signs Temp 97.7 F 10/17/23 07:49 Pulse 60 10/17/23 08:33 Resp 17 10/17/23 07:49 BP 122/68 10/17/23 07:49 Pulse Ox 95 10/17/23 08:20 FiO2 Intake & Output 10/16/23 10/17/23 10/17/23 18:59 06:59 18:59 Intake Total 200 Output Total 810 1100 Balance -610 -1100 Weight 95.254 kg Intake: IV 200 Magnesium Sulfate-D5w Pmx 200 1 gm In Dextrose/Water 1 100ml.bag @ 100 mls/hr IVPB Q1H [facility] Rx#: [id number] Output: Urine 810 1100 Other: Voiding Method Indwelling Catheter Indwelling Catheter - Exam GENERAL EXAM: Alert, 63-year-old male, resting comfortably in bed, currently on 4 L of oxygen by nasal cannula, awake and alert and communicating HEAD: Normocephalic. EYES: Normal reaction of pupils, equal size. NOSE: Clear with pink turbinates. THROAT: No erythema or exudates. NECK: No masses, no JVD. CHEST: No chest wall deformity. LUNGS: Equal air entry with no crackles, wheeze, rhonchi or dullness. CVS: S1 and S2 normal with no audible murmur, regular rhythm. ABDOMEN: No hepatosplenomegaly, normal bowel sounds, no guarding or rigidity. SPINE: No scoliosis or deformity SKIN: No rashes, pressure ulcer of the previously inserted pain pump with superficial ulceration and some minimal amount of purulence. CENTRAL NERVOUS SYSTEM: Deficits from previous CVA, tone is normal in all 4 extremities. EXTREMITIES: Weakness, wheelchair-bound, there is no peripheral edema. No clubbing, no cyanosis. Peripheral pulses are intact. - Labs CBC & Chem 7: 10/17/23 06:55 10/17/23 06:55 Labs: Abnormal Lab Results - Last 24 Hours (Table) 10/16/23 10/16/23 10/16/23 Range/Units 04:59 11:49 16:44 RBC (4.40-5.60) X 10*6/uL Hgb (13.0-17.0) g/dL Hct (39.6-50.0) % MCV (80.0-97.0) FL MCH (27.0-32.0) pg Plt Count (140-440) X 10*3/uL Lymphocytes # (0.90-5.00) X 10*3/uL Eosinophils # (0.04-0.35) X 10*3/uL Anion Gap (4.00-12.00) mmol/L BUN (9.0-27.0) mg/dL BUN/Creatinine Ratio (12.00-20.00) Ratio Glucose (70-110) mg/dL POC Glucose (mg/dL) 342 H 248 H (70-110) mg/dL Procalcitonin 0.24 H (0.02-0.09) ng/mL 10/16/23 10/17/23 10/17/23 Range/Units 20:02 00:25 02:03 RBC (4.40-5.60) X 10*6/uL Hgb (13.0-17.0) g/dL Hct (39.6-50.0) % MCV (80.0-97.0) FL MCH (27.0-32.0) pg Plt Count (140-440) X 10*3/uL Lymphocytes # (0.90-5.00) X 10*3/uL Eosinophils # (0.04-0.35) X 10*3/uL Anion Gap (4.00-12.00) mmol/L BUN (9.0-27.0) mg/dL BUN/Creatinine Ratio (12.00-20.00) Ratio Glucose (70-110) mg/dL POC Glucose (mg/dL) 199 H 216 H 236 H (70-110) mg/dL Procalcitonin (0.02-0.09) ng/mL 10/17/23 10/17/23 10/17/23 Range/Units 06:55 06:55 07:50 RBC 3.54 L (4.40-5.60) X 10*6/uL Hgb 11.8 L (13.0-17.0) g/dL Hct 35.2 L (39.6-50.0) % MCV 99.4 H (80.0-97.0) FL MCH 33.3 H (27.0-32.0) pg Plt Count 86 L (140-440) X 10*3/uL Lymphocytes # 0.58 L (0.90-5.00) X 10*3/uL Eosinophils # 0 L (0.04-0.35) X 10*3/uL Anion Gap 12.80 H (4.00-12.00) mmol/L BUN 27.5 H (9.0-27.0) mg/dL BUN/Creatinine Ratio 27.50 H (12.00-20.00) Ratio Glucose 260 H (70-110) mg/dL POC Glucose (mg/dL) 243 H (70-110) mg/dL Procalcitonin (0.02-0.09) ng/mL Assessment and Plan Plan: Altered mental status of unclear etiology, improved. There may be underlying encephalopathy at the time of admission and the patient is currently appropriate and awake and alert. Neurology on the case. No seizure activity has been noted. He has previous history of seizure disorder. No seizure activity has been witnessed and the patient has been maintained on Vimpat. The patient also has had previous history of CVA. The CAT scan of the brain that was done on 10/12/2023 showed no acute abnormalities. Moderate ventriculomegaly which may be essentially consistent with normal pressure hydrocephalus. He has a remote right frontal infarct. Acute hypoxic respiratory failure, 4 liters 02, chest x-ray shows no acute abnormalities. Fever, currently afebrile and patient is covered empirically with IV Zosyn. Rul e out underlying urine tract infection. He does have a superficial wound infection on his buttocks at the site of the pain pump insertion. Superficial wound over the buttocks without any abscess formation. General surgery is on the case. COPD with chronic hypoxic respiratory failure maintained on home O2 at 2 L History of CVA right frontal 1 maintained on Vimpat History of seizure disorder Chronic neck and back pain with pain Former smoker Memory impairment, consider normal pressure hydrocephalus Hypertension Diabetes mellitus, type II Hypertension History of hepatitis C with secondary liver cirrhosis Anxiety/depression Chronic thrombocytopenia Poor overall functional performance based on the above-mentioned multiple comorbidities Plan Patient got transferred out of the intensive care unit Cultures are still pending Procalcitonin level is not elevated Wound care and the patient has an Optifoam in place Continue IV Zosyn Respiratory status is stable Mental status is improved Outpatient medication has been resumed and the patient is being seen by neurology and infectious diseases. Surgical evaluation of the wound on the buttocks. Currently on the medical floor. Follow-up with the medical group.
--- NOTE | 2023-10-17 13:15 | P.PN ---
Subjective Progress Note Date: 10/17/23 63 yo M with PMH of NPH, CVA/TIA, intrathecal pain pump in place, T2DM who was brought to the ED by his for AMS. reports he has been lethargic, unable to follow a conversation and increasingly weak. Ever since his diagnosis of NPH a few months ago he has been increasingly weak and spending more time in his wheelchair. Pt currently denies complaint, no chest pain, shortness of breath, cough, fever, chills, headache. On presentation WBC wnl, Hgb 14, plt 116, pt hypertensive to 172/72. CMP is wnl, trop negative, respiratory virus panel negative. Ammonia is less than 9. Chest x-ray showed COPD otherwise no acute process. EKG shows sinus bradycardia with heart rate of 51. CT of the head showed no acute intracranial process. 08/14/2023 Patient is confused to time place and person. Frequent saying his name but he could not know if he is in the hospital and states he thought he is at [facility]. Also he is slow to respond and he does not look to has insight into his illness. Although he answers some questions. Initially was brought by the because of increasing lethargy and weakness, as per her description he has good days and bad days of memory Patient with no dyspnea or chest pain. Abdominal soft. Patient is hemodynamically stable except for mild bradycardia with heart rate about 50. CBC is unremarkable except for mild thrombocytopenia at 116 BMP liver enzymes INR and troponin were unremarkable. Lactic acid is normal at 1.3 B12 568 and folate 28. Ammonia less than 9. EKG sinus bradycardia at [address]-T changes Influenza A and type B, RSV, SARS (coronavirus) are undetected CT of the brain is negative for acute process ABG showed normal pH with pCO2 is not elevated but located on 2 hours 7 10/15/2023 Patient is awake and alert more than yesterday he knows he is in the hospital and he can tell me the date October 15, 2023 however he is still disoriented to person He looks more awake and follow commands and relaxed. He denies any pain or any other new complaints However patient was noticed to have large left buttock mass, with smooth borders and mobile with some superficial ulcer on the top Will check ultrasound and consult surgical team as well for further evaluation 10/16/23: Patient seen and evaluated bedside, blood work reviewed, CBC shows WBC 7.4 hemoglobin 14 platelet count of 93, serum chemistry showed sodium 137 potassium and creatinine within normal limits N-terminal proBNP 166. Patient does have cough and productive phlegm 10/17/23: Patient seen and evaluated bedside, patient transferred out from medical ICU to general medical floor. Patient does have excessive cough, continue IV antibiotics, he remains on 4 L of oxygen, blood work reviewed WBC 6.4 hemoglobin 11.8 platelet count of 86. Serum chemistry sodium 137 potassium 4.7 BUN 27 creatinine 1 Physical exam GENERAL: The patient is alert and oriented x2 , not in any acute distress. Well developed, well nourished. HEENT: Pupils are round and equally reacting to light. EOMI. Normocephalic, atraumatic. No pharyngeal erythema. No thyromegaly. CARDIOVASCULAR: S1 and S2 present. No murmurs, rubs, or gallops. PULMONARY: Chest is clear to auscultation, no wheezing , no crackles. ABDOMEN: Soft, nontender, nondistended, normoactive bowel sounds. No palpable organomegaly. MUSCULOSKELETAL: Large left buttock mass, punctate ulcer EXTREMITIES: No cyanosis, clubbing, or pedal edema. NEUROLOGICAL: Gross neurological examination did not reveal any focal deficits. SKIN: No rashes. no petechiae. Assessment and plan Left buttock cellulitis with diabetic skin ulcer stage II ulceration Acute metabolic encephalopathy on top of chronic dementia Acute hypoxemic respiratory failure, acute tracheobronchitis Acute exacerbation of COPD History of seizure disorder Hypothyroidism Coronary artery disease on aspirin and Plavix Plan: * Dilatation obtained from general surgery, continue IV antibiotics no surgical intervention recommended ultrasound negative for abscess, continue IV Zosyn * Continue with offloading, continue with wound care * In regards to history of hypertension continue patient on amlodipine * Regards to acute hypoxemic respiratory failure/acute exacerbation of COPD continue patient on breathing treatments IV Solu-Medrol, DuoNeb, Symbicort, pulmonary medicine consult * History of seizure disorder continue patient on Vimpat Objective - Vital Signs Vital signs: Vital Signs Temp 97.7 F 10/17/23 07:49 Pulse 60 10/17/23 08:33 Resp 17 10/17/23 07:49 BP 122/68 10/17/23 07:49 Pulse Ox 95 10/17/23 08:20 FiO2 Intake & Output 0510/17/23 10/17/23 18:59 06:59 18:59 Intake Total 200 Output Total 810 1100 Balance -610 -1100 Weight 95.254 kg Intake: IV 200 Magnesium Sulfate-D5w Pmx 200 1 gm In Dextrose/Water 1 100ml.bag @ 100 mls/hr IVPB Q1H [facility] Rx#: [id number] Output: Urine 810 1100 Other: Voiding Method Indwelling Catheter Indwelling Catheter - Labs CBC & Chem 7: 10/17/23 06:55 10/17/23 06:55 Labs: Abnormal Lab Results - Last 24 Hours (Table) 10/16/23 10/16/23 10/16/23 Range/Units 04:59 11:49 16:44 RBC (4.40-5.60) X 10*6/uL Hgb (13.0-17.0) g/dL Hct (39.6-50.0) % MCV (80.0-97.0) FL MCH (27.0-32.0) pg Plt Count (140-440) X 10*3/uL Lymphocytes # (0.90-5.00) X 10*3/uL Eosinophils # (0.04-0.35) X 10*3/uL Anion Gap (4.00-12.00) mmol/L BUN (9.0-27.0) mg/dL BUN/Creatinine Ratio (12.00-20.00) Ratio Glucose (70-110) mg/dL POC Glucose (mg/dL) 342 H 248 H (70-110) mg/dL Procalcitonin 0.24 H (0.02-0.09) ng/mL 10/16/23 10/17/23 10/17/23 Range/Units 20:02 00:25 02:03 RBC (4.40-5.60) X 10*6/uL Hgb (13.0-17.0) g/dL Hct (39.6-50.0) % MCV (80.0-97.0) FL MCH (27.0-32.0) pg Plt Count (140-440) X 10*3/uL Lymphocytes # (0.90-5.00) X 10*3/uL Eosinophils # (0.04-0.35) X 10*3/uL Anion Gap (4.00-12.00) mmol/L BUN (9.0-27.0) mg/dL BUN/Creatinine Ratio (12.00-20.00) Ratio Glucose (70-110) mg/dL POC Glucose (mg/dL) 199 H 216 H 236 H (70-110) mg/dL Procalcitonin (0.02-0.09) ng/mL 10/17/23 10/17/23 10/17/23 Range/Units 06:55 06:55 07:50 RBC 3.54 L (4.40-5.60) X 10*6/uL Hgb 11.8 L (13.0-17.0) g/dL Hct 35.2 L (39.6-50.0) % MCV 99.4 H (80.0-97.0) FL MCH 33.3 H (27.0-32.0) pg Plt Count 86 L (140-440) X 10*3/uL Lymphocytes # 0.58 L (0.90-5.00) X 10*3/uL Eosinophils # 0 L (0.04-0.35) X 10*3/uL Anion Gap 12.80 H (4.00-12.00) mmol/L BUN 27.5 H (9.0-27.0) mg/dL BUN/Creatinine Ratio 27.50 H (12.00-20.00) Ratio Glucose 260 H (70-110) mg/dL POC Glucose (mg/dL) 243 H (70-110) mg/dL Procalcitonin (0.02-0.09) ng/mL
[2023-10-17 17:15] LABS: Glucose,Whole Blood 270 mg/dL (70-110)
[2023-10-17 20:21] LABS: Glucose,Whole Blood 294 mg/dL (70-110)
[2023-10-18 07:03] LABS: Glucose,Whole Blood 268 mg/dL (70-110)
[2023-10-18 08:24] LABS: Basophils # (A) 0 X 10*3/uL (0.00-0.10); Basophils % (A) 0 %; Eosinophils # (A) 0 X 10*3/uL (0.04-0.35); Eosinophils % (A) 0 %; HCT 33.8 % (39.6-50.0); HGB 11.5 g/dL (13.0-17.0); Lymphocytes # (A) 0.56 X 10*3/uL (0.90-5.00); Lymphocytes % (A) 9.2 %; MCH 33.7 pg (27.0-32.0); MCV 99.1 FL (80.0-97.0); Mean Platelet Volume 11.1 FL (9.5-12.2); Monocytes # (A) 0.34 X 10*3/uL (0.20-1.00); Monocytes % (A) 5.6 %; NRBC Per 100 WBC 0 X 10*3/uL (0.00-0.01); Neutrophils # (A) 5.16 X 10*3/uL (1.80-7.70); Neutrophils % (A) 84.7 %; Platelet Count 90 X 10*3/uL (140-440); RBC 3.41 X 10*6/uL (4.40-5.60); RDW 12.6 % (11.5-14.5); WBC 6.09 X 10*3/uL (4.50-10.00)
[2023-10-18 08:39] LABS: BUN/Creat Ratio 35.78 Ratio (12.00-20.00); Blood Urea Nitrogen 32.2 mg/dL (9.0-27.0); Calcium 9.1 mg/dL (8.7-10.3); Carbon Dioxide 26.7 mmol/L (21.6-31.8); Chloride 98 mmol/L (96-109); Glucose 271 mg/dL (70-110); Potassium 4.1 mmol/L (3.5-5.5); Sodium 135 mmol/L (135-145)
[2023-10-18 11:58] LABS: Glucose,Whole Blood 324 mg/dL (70-110)
--- NOTE | 2023-10-18 12:49 | P.PN ---
Subjective Progress Note Date: 10/18/23 64-year-old male patient presents to the intensive care unit because of increased oxygen requirements. He was placed on 6 L of oxygen by nasal cannula, this morning is on 4 L with a pulse ox of 95%. Reviewed the chest x-ray and it shows no acute cardiopulmonary process. He is calm and comfortable. No respiratory difficulties. No chest pain. No significant shortness of breath on today's evaluation. Mental status is improved. The white cell count at 7.5 hemoglobin is 14 and a platelet count is 83, electrolytes all within normal limits. The patient is on DuoNeb updrafts. Blood sugars slightly elevated and the patient is currently on Levemir insulin 48 units and a sliding scale coverage. He is on IV Zosyn suspecting a wound infection at the site of the previously inserted pain pump where the patient has a superficial ulcer in that location. He came into the hospital originally on 10/13/2023 with generalized weakness and lethargy. He was quite obtunded and he is much improved at this p oint in time. His empiric antibiotic coverage with IV Zosyn. He is wheelchair- bound. He was diagnosed having normal pressure hydrocephalus and he was not found to be a good candidate for a [employer] shunt. Neurology on the case for now. No seizure activity. He has previous history of seizure disorder. No witnessed seizures. He is currently on Vimpat. He also has a previous history of a right truncal ischemic infarct. He has a combination of comorbidities, primary stable at this point in time. His last seizure activity was back in 2012 and he has been seizure-free. Last EEG was done in February 2023 showed mild encephalopathy. 10/17/2023, the patient is doing extremely well. No altered mentation. No shortness of breath or chest pain. Blood work shows a WC count 6.4 with a hemoglobin 11.8, BUN 27 with a creatinine of 1 and a sodium level of 137. He is on DuoNeb updrafts. He got moved out of the intensive care unit yesterday. He is afebrile. No signs of any sepsis at this point in time. Remains on empiric antibiotic coverage with IV Zosyn. The patient is seen today October 18, 2023 in follow-up on the regular medical floor. He is awake and alert in no acute distress. He denies any worsening shortness of breath, cough or congestion. He is maintaining O2 saturations in the 90s on 2 L/min per nasal cannula. He is continued on Zosyn. Blood cultures revealed no growth. Urine culture reveals no growth. White count 6.0. Hemoglobin 11.5. Platelets 90,000. Sodium 134. Potassium 4.1. Bicarb 27. BUN 32. Creatinine 0.9. Glucose 271. He is currently in a -2 L balance. Objective - Vital Signs Vital signs: Vital Signs Temp 98.4 F 10/18/23 07:04 Pulse 60 10/18/23 08:19 Resp 16 10/18/23 07:04 BP 127/72 10/18/23 07:04 Pulse Ox 96 10/18/23 08:20 FiO2 Intake & Output 10/17/23 10/18/23 10/18/23 18:59 06:59 18:59 Intake Total 10 Output Total 625 1450 Balance -625 -1440 Intake: IV 10 Invasive Line 5 10 Output: Urine 625 1450 Other: Voiding Method Indwelling Catheter Indwelling Catheter Indwelling Catheter - Exam GENERAL EXAM: Alert, 63-year-old male, resting in bed, currently on 2 L nasal cannula, awake and communicating HEAD: Normocephalic. EYES: Normal reaction of pupils, equal size. NOSE: Clear with pink turbinates. THROAT: No erythema or exudates. NECK: No masses, no JVD. CHEST: No chest wall deformity. LUNGS: Equal air entry with no crackles, wheeze, rhonchi or dullness. CVS: S1 and S2 normal with no audible murmur, regular rhythm. ABDOMEN: No hepatosplenomegaly, normal bowel sounds, no guarding or rigidity. SPINE: No scoliosis or deformity SKIN: No rashes, pressure ulcer of the previously inserted pain pump with superficial ulceration and some minimal amount of purulence. CENTRAL NERVOUS SYSTEM: Deficits from previous CVA, tone is normal in all 4 extremities. EXTREMITIES: Weakness, wheelchair-bound, there is no peripheral edema. No clubbing, no cyanosis. Peripheral pulses are intact. - Labs CBC & Chem 7: 10/18/23 05:51 10/18/23 05:51 Labs: Abnormal Lab Results - Last 24 Hours (Table) 10/17/23 10/17/23 10/18/23 Range/Units 17:14 20:20 05:51 RBC 3.41 L (4.40-5.60) X 10*6/uL Hgb 11.5 L (13.0-17.0) g/dL Hct 33.8 L (39.6-50.0) % MCV 99.1 H (80.0-97.0) FL MCH 33.7 H (27.0-32.0) pg Plt Count 90 L (140-440) X 10*3/uL Lymphocytes # 0.56 L (0.90-5.00) X 10*3/uL Eosinophils # 0 L (0.04-0.35) X 10*3/uL BUN (9.0-27.0) mg/dL BUN/Creatinine Ratio (12.00-20.00) Ratio Glucose (70-110) mg/dL POC Glucose (mg/dL) 270 H 294 H (70-110) mg/dL C-Reactive Protein (0.00-0.80) mg/dL 10/18/23 10/18/23 10/18/23 Range/Units 05:51 07:03 11:56 RBC (4.40-5.60) X 10*6/uL Hgb (13.0-17.0) g/dL Hct (39.6-50.0) % MCV (80.0-97.0) FL MCH (27.0-32.0) pg Plt Count (140-440) X 10*3/uL Lymphocytes # (0.90-5.00) X 10*3/uL Eosinophils # (0.04-0.35) X 10*3/uL BUN 32.2 H (9.0-27.0) mg/dL BUN/Creatinine Ratio 35.78 H (12.00-20.00) Ratio Glucose 271 H (70-110) mg/dL POC Glucose (mg/dL) 268 H 324 H (70-110) mg/dL C-Reactive Protein 1.50 H (0.00-0.80) mg/dL Microbiology - Last 24 Hours (Table) 10/16/23 11:25 Urine Culture - Final Urine,Catheterized 10/16/23 02:40 Blood Culture - Preliminary Blood Assessment and Plan Assessment: Altered mental status of unclear etiology, improved. There may be underlying encephalopathy at the time of admission and the patient is currently appropriate and awake and alert. Neurology on the case. No seizure activity has been noted. He has previous history of seizure disorder. No seizure activity has been witnessed and the patient has been maintained on Vimpat. The patient also has had previous history of CVA. The CAT scan of the brain that was done on 10/12/2023 showed no acute abnormalities. Moderate ventriculomegaly which may be essentially consistent with normal pressure hydrocephalus. He has a remote right frontal infarct. Acute hypoxic respiratory failure, 2 liters 02, chest x-ray shows no acute abnormalities Fever, currently afebrile and covered with IV Zosyn. Ruled out underlying urine tract infection. He does have a superficial wound infection on his buttocks at the site of the pain pump insertion Superficial wound over the buttocks without any abscess formation. General surgery is on the case COPD with chronic hypoxic respiratory failure maintained on home O2 at 2 L History of CVA right frontal 1 maintained on Vimpat History of seizure disorder Chronic neck and back pain with pain Former smoker Memory impairment, consider normal pressure hydrocephalus Hypertension Diabetes mellitus, type II Hypertension History of hepatitis C with secondary liver cirrhosis Anxiety/depression Chronic thrombocytopenia Poor overall functional performance based on the above-mentioned multiple comorbidities Plan: The patient was seen and evaluated Labs and medications reviewed Stable and on 2 L nasal cannula Antibiotics per ID service This patient was seen independently by the pulmonary nurse practitioner addressing pulmonary issues I have personally seen and examined the patient, performed the documentation and the assessment and plan as written. Number of minutes spent on the visit: 25.
--- NOTE | 2023-10-18 13:37 | P.PN ---
Subjective Progress Note Date: 10/18/23 63 yo M with PMH of NPH, CVA/TIA, intrathecal pain pump in place, T2DM who was brought to the ED by his for AMS. reports he has been lethargic, unable to follow a conversation and increasingly weak. Ever since his diagnosis of NPH a few months ago he has been increasingly weak and spending more time in his wheelchair. Pt currently denies complaint, no chest pain, shortness of breath, cough, fever, chills, headache. On presentation WBC wnl, Hgb 14, plt 116, pt hypertensive to 172/72. CMP is wnl, trop negative, respiratory virus panel negative. Ammonia is less than 9. Chest x-ray showed COPD otherwise no acute process. EKG shows sinus bradycardia with heart rate of 51. CT of the head showed no acute intracranial process. 08/14/2023 Patient is confused to time place and person. Frequent saying his name but he could not know if he is in the hospital and states he thought he is at [facility]. Also he is slow to respond and he does not look to has insight into his illness. Although he answers some questions. Initially was brought by the because of increasing lethargy and weakness, as per her description he has good days and bad days of memory Patient with no dyspnea or chest pain. Abdominal soft. Patient is hemodynamically stable except for mild bradycardia with heart rate about 50. CBC is unremarkable except for mild thrombocytopenia at 116 BMP liver enzymes INR and troponin were unremarkable. Lactic acid is normal at 1.3 B12 568 and folate 28. Ammonia less than 9. EKG sinus bradycardia at [address]-T changes Influenza A and type B, RSV, SARS (coronavirus) are undetected CT of the brain is negative for acute process ABG showed normal pH with pCO2 is not elevated but located on 2 hours 7 10/15/2023 Patient is awake and alert more than yesterday he knows he is in the hospital and he can tell me the date October 15, 2023 however he is still disoriented to person He looks more awake and follow commands and relaxed. He denies any pain or any other new complaints However patient was noticed to have large left buttock mass, with smooth borders and mobile with some superficial ulcer on the top Will check ultrasound and consult surgical team as well for further evaluation 10/16/23: Patient seen and evaluated bedside, blood work reviewed, CBC shows WBC 7.4 hemoglobin 14 platelet count of 93, serum chemistry showed sodium 137 potassium and creatinine within normal limits N-terminal proBNP 166. Patient does have cough and productive phlegm 10/17/23: Patient seen and evaluated bedside, patient transferred out from medical ICU to general medical floor. Patient does have excessive cough, continue IV antibiotics, he remains on 4 L of oxygen, blood work reviewed WBC 6.4 hemoglobin 11.8 platelet count of 86. Serum chemistry sodium 137 potassium 4.7 BUN 27 creatinine 1 10/18/23: And evaluated bedside, patient transferred to medical floor, seen by surgical team as well. Does have wounds over the buttocks, receiving IV antibiotic. Will discuss with infectious disease regarding outpatient follow-up regarding antibiotic, will need discharge to subacute rehab Physical exam GENERAL: The patient is alert and oriented x2 , not in any acute distress. Well developed, well nourished. HEENT: Pupils are round and equally reacting to light. EOMI. Normocephalic, atraumatic. No pharyngeal erythema. No thyromegaly. CARDIOVASCULAR: S1 and S2 present. No murmurs, rubs, or gallops. PULMONARY: Chest is clear to auscultation, no wheezing , no crackles. ABDOMEN: Soft, nontender, nondistended, normoactive bowel sounds. No palpable organomegaly. MUSCULOSKELETAL: Large left buttock, ulcer EXTREMITIES: No cyanosis, clubbing, or pedal edema. NEUROLOGICAL: Gross neurological examination did not reveal any focal deficits. SKIN: No rashes. no petechiae. Assessment and plan Left buttock cellulitis with diabetic skin ulcer stage II ulceration Acute metabolic encephalopathy on top of chronic dementia Acute hypoxemic respiratory failure, acute tracheobronchitis Acute exacerbation of COPD History of seizure disorder Hypothyroidism Coronary artery disease on aspirin and Plavix Plan: * Dilatation obtained from general surgery, continue IV antibiotics receiving Zosyn no surgical intervention recommended ultrasound negative for abscess, * Continue with offloading, continue with wound care * In regards to history of hypertension continue patient on amlodipine * Regards to acute hypoxemic respiratory failure/acute exacerbation of COPD continue patient on breathing treatments IV Solu-Medrol, DuoNeb, Symbicort, pulmonary medicine consult * History of seizure disorder continue patient on Vimpat * Physical therapy Occupational Therapy evaluation regarding discharge disposition Objective - Vital Signs Vital signs: Vital Signs Temp 98.4 F 10/18/23 07:04 Pulse 60 10/18/23 08:19 Resp 16 10/18/23 07:04 BP 127/72 10/18/23 07:04 Pulse Ox 96 10/18/23 08:20 FiO2 Intake & Output 10/17/23 10/18/23 10/18/23 18:59 06:59 18:59 Intake Total 10 Output Total 625 1450 Balance -625 -1440 Intake: IV 10 Invasive Line 5 10 Output: Urine 625 1450 Other: Voiding Method Indwelling Catheter Indwelling Catheter Indwelling Catheter - Labs CBC & Chem 7: 10/18/23 05:51 10/18/23 05:51 Labs: Abnormal Lab Results - Last 24 Hours (Table) 10/17/23 10/17/23 10/17/23 Range/Units 12:17 17:14 20:20 RBC (4.40-5.60) X 10*6/uL Hgb (13.0-17.0) g/dL Hct (39.6-50.0) % MCV (80.0-97.0) FL MCH (27.0-32.0) pg Plt Count (140-440) X 10*3/uL Lymphocytes # (0.90-5.00) X 10*3/uL Eosinophils # (0.04-0.35) X 10*3/uL BUN (9.0-27.0) mg/dL BUN/Creatinine Ratio (12.00-20.00) Ratio Glucose (70-110) mg/dL POC Glucose (mg/dL) 165 H 270 H 294 H (70-110) mg/dL C-Reactive Protein (0.00-0.80) mg/dL 10/18/23 10/18/23 10/18/23 Range/Units 05:51 05:51 07:03 RBC 3.41 L (4.40-5.60) X 10*6/uL Hgb 11.5 L (13.0-17.0) g/dL Hct 33.8 L (39.6-50.0) % MCV 99.1 H (80.0-97.0) FL MCH 33.7 H (27.0-32.0) pg Plt Count 90 L (140-440) X 10*3/uL Lymphocytes # 0.56 L (0.90-5.00) X 10*3/uL Eosinophils # 0 L (0.04-0.35) X 10*3/uL BUN 32.2 H (9.0-27.0) mg/dL BUN/Creatinine Ratio 35.78 H (12.00-20.00) Ratio Glucose 271 H (70-110) mg/dL POC Glucose (mg/dL) 268 H (70-110) mg/dL C-Reactive Protein 1.50 H (0.00-0.80) mg/dL Microbiology - Last 24 Hours (Table) 10/16/23 11:25 Urine Culture - Final Urine,Catheterized 10/16/23 02:40 Blood Culture - Preliminary Blood
--- NOTE | 2023-10-18 14:25 | P.PN ---
Subjective Progress Note Date: 10/18/23 CHIEF COMPLAINT: Left buttocks ulceration HISTORY OF PRESENT ILLNESS: Patient has no new complaints. He is lying in bed comfortably. He is working on offloading. Afebrile. WBC 6.09 PHYSICAL EXAM: VITAL SIGNS: Reviewed GENERAL: Well-developed in no acute distress. HEENT: No sclera icterus. Extraocular movements grossly intact. Moist buccal mucosa. Head is atraumatic, normocephalic. Hears conversational speech. No nasal drainage. NECK: Supple without lymphadenopathy. CHEST: Non-labored respirations and equal bilateral excursions. CARDIOVASCULAR: Palpable 2+ radial pulses. ABDOMEN: Soft. Nondistended. Nontender. MUSCULOSKELETAL: No clubbing or cyanosis. NEUROLOGIC: No focal or lateralizing signs. Cranial nerves II through XII grossly intact. PSYCH: Appropriate affect. Alert and oriented to person, place and time. ASSESSMENT: 1. Stage II ulceration left buttocks on top of the pain pump PLAN: -No need to remove the pain pump -Continue local wound care -Continue offloading -Surgical service will sign off. Please call with any questions or concerns. Physician Jewelry Drill Operator note has been reviewed by physician. Signing provider agrees with the documented findings, assessment, and plan of care. Objective - Vital Signs Vital signs: Vital Signs Temp 98.7 F 10/18/23 13:45 Pulse 67 10/18/23 13:45 Resp 18 10/18/23 13:45 BP 156/74 10/18/23 13:45 Pulse Ox 93 L 10/18/23 13:45 FiO2 Intake & Output 10/17/23 10/18/23 10/18/23 18:59 06:59 18:59 Intake Total 10 Output Total 625 1450 500 Balance -625 -1440 -500 Intake: IV 10 Invasive Line 5 10 Output: Urine 625 1450 500 Other: Voiding Method Indwelling Catheter Indwelling Catheter Indwelling Catheter # Voids 1 - Labs CBC & Chem 7: 10/18/23 05:51 10/18/23 05:51 Labs: Abnormal Lab Results - Last 24 Hours (Table) 10/17/23 10/17/23 10/18/23 Range/Units 17:14 20:20 05:51 RBC 3.41 L (4.40-5.60) X 10*6/uL Hgb 11.5 L (13.0-17.0) g/dL Hct 33.8 L (39.6-50.0) % MCV 99.1 H (80.0-97.0) FL MCH 33.7 H (27.0-32.0) pg Plt Count 90 L (140-440) X 10*3/uL Lymphocytes # 0.56 L (0.90-5.00) X 10*3/uL Eosinophils # 0 L (0.04-0.35) X 10*3/uL BUN (9.0-27.0) mg/dL BUN/Creatinine Ratio (12.00-20.00) Ratio Glucose (70-110) mg/dL POC Glucose (mg/dL) 270 H 294 H (70-110) mg/dL C-Reactive Protein (0.00-0.80) mg/dL 10/18/23 10/18/23 10/18/23 Range/Units 05:51 07:03 11:56 RBC (4.40-5.60) X 10*6/uL Hgb (13.0-17.0) g/dL Hct (39.6-50.0) % MCV (80.0-97.0) FL MCH (27.0-32.0) pg Plt Count (140-440) X 10*3/uL Lymphocytes # (0.90-5.00) X 10*3/uL Eosinophils # (0.04-0.35) X 10*3/uL BUN 32.2 H (9.0-27.0) mg/dL BUN/Creatinine Ratio 35.78 H (12.00-20.00) Ratio Glucose 271 H (70-110) mg/dL POC Glucose (mg/dL) 268 H 324 H (70-110) mg/dL C-Reactive Protein 1.50 H (0.00-0.80) mg/dL Microbiology - Last 24 Hours (Table) 10/16/23 02:40 Blood Culture - Preliminary Blood 10/16/23 11:25 Urine Culture - Final Urine,Catheterized
[2023-10-18 17:09] LABS: Glucose,Whole Blood 313 mg/dL (70-110)
[2023-10-18 20:31] LABS: Glucose,Whole Blood 226 mg/dL (70-110)
--- NOTE | 2023-10-18 23:08 | P.CONS ---
History of Present Illness - Reason for Consult Consult date: 10/18/23 - History of Present Illness Patient is a 63-year-old male with a past medical history significant for diabetes mellitus hypertension hyperlipidemia CVA TIA memory impairment seizure disorder and COPD patient presenting to the hospital 6 days ago for evaluation generalized weakness that has been getting worse for 3 days and also noticed to have intermittent throbbing of his blood sugar since then the patient has been evaluated by neurology General surgery and pulmonary services apparently the patient did have a history of pain pump in the left gluteal area and the patient did have ultrasound of the left buttock with evidence of cellulitis but no fluid collection patient on presentation to the hospital was afebrile and no fever have been recorded subsequently patient did have a normal white count throughout his hospital stay no local culture has been completed blood culture has been negative creatinine has been normal patient has been treated with steroids and Zosyn infectious disease was consulted today regarding buttock cellulitis on Zosyn patient himself not a very good historian so most information has been extracted from review of the chart talking nursing staff Past Medical History Past Medical History: COPD, CVA/TIA, Diabetes Mellitus, Hyperlipidemia, Hypertension, Memory Impairment, Myocardial Infarction (NM), Prostate Disorder, Seizure Disorder, Skin Disorder Additional Past Medical History / Comment(s): duodenal ulcer, pain and numbness cyrus legs and feet,pain pump in back, anemia. TIA X3, HEPATITIS C PAST HISTORY, LAST SEIZURE 2012,hiatal hernia Last Myocardial Infarction Date:: POSSIBLE NM 2012 History of Any Multi-Drug Resistant Organisms: None Reported Past Surgical History: Appendectomy, Back Surgery, Heart Catheterization, Orthop edic Surgery Additional Past Surgical History / Comment(s): titanium lyn in lt leg, skin graph to rt 1st and middle finger, lt eardum replaced, cyrus. foot surgery to arch, cataract surgery bilateral with implant,skin graft left leg Past Anesthesia/Blood Transfusion Reactions: No Reported Reaction Past Psychological History: Anxiety, Depression Additional Psychological History / Comment(s): past history of depression Smoking Status: Former smoker Past Alcohol Use History: None Reported Additional Past Alcohol Use History / Comment(s): Pt started smoking in 1974 and is a 1-2ppd smoker Past Drug Use History: None Reported - Past Family History Mother Family Medical History: Diabetes Mellitus, Pulmonary Embolus Father Additional Family Medical History / Comment(s): Father had pain problems/hallucinations. He committed suicide. Medications and Allergies Home Medications Medication Instructions Recorded Confirmed Type Albuterol Sulfate [Proair Hfa] 2 puff INHALATION RT-QID PRN 10/22/20 10/12/23 History Ferrous Sulfate [Iron (65 MG 325 mg PO DAILY 12/10/20 10/12/23 History Elemental)] Clopidogrel [Plavix] 75 mg PO HS 06/30/21 10/12/23 History Primidone [Mysoline] 50 mg PO HS 06/30/21 10/12/23 History Escitalopram [Lexapro] 20 mg PO HS 02/23/23 10/12/23 History Rosuvastatin Calcium [Crestor] 40 mg PO HS 03/14/23 10/12/23 History Acetaminophen Tab [Tylenol] 325 mg PO Q6HR PRN tab 03/16/23 10/12/23 Rx Lacosamide [Vimpat] 200 mg PO BID #6 tab 03/16/23 10/12/23 Rx Aspirin EC [Ecotrin Low Dose] 81 mg PO DAILY 05/22/23 10/12/23 History Multivitamins, Thera [Multivitamin 1 tab PO DAILY 05/22/23 10/12/23 History (formulary)] Insulin Detemir [Levemir Flexpen] 48 units SQ DAILY 06/15/23 10/12/23 History Lactulose [Cephulac] 20 gm PO TID 09/08/23 10/12/23 History amLODIPine [Norvasc] 2.5 mg PO BID 09/08/23 10/12/23 History Budesonide-Formot 160-4.5 Mcg 2 puff INHALATION RT-BID #1 each 09/10/23 10/12/23 Rx [Symbicort 160-4.5 Mcg Inhaler] Ipratropium-Albuterol Nebulize 3 ml INHALATION RT-QID PRN #120 09/10/23 10/12/23 Rx [Duoneb 0.5 mg-3 mg/3 ml Soln] each Insulin Lispro [humaLOG Kwikpen] See Protocol SQ ACHS 10/12/23 10/12/23 History Allergies Allergy/AdvReac Type Severity Reaction Status Date / Time morphine AdvReac Nausea & Verified 10/12/23 20:25 Vomiting Physical Exam Vitals: Vital Signs Temp Pulse Pulse Resp BP Pulse Ox 10/18/23 08:20 96 10/18/23 08:19 60 10/18/23 07:04 98.4 F 58 L 16 127/72 94 L 10/18/23 03:07 64 10/18/23 02:54 64 10/18/23 01:17 98.5 F 68 17 160/72 95 10/17/23 20:48 68 10/17/23 20:38 68 10/17/23 20:00 68 17 10/17/23 19:19 98.8 F 67 16 138/70 95 10/17/23 15:56 70 10/17/23 15:24 68 Intake and Output 10/17/23 10/18/23 10/18/23 22:59 06:59 14:59 Intake Total 10 Output Total 625 1450 Balance -625 -1440 Intake: IV 10 Invasive Line 5 10 Output: Urine 625 1450 Other: Voiding Method Indwelling Catheter Indwelling Catheter Results CBC & Chem 7: 10/18/23 05:51 10/18/23 05:51 Labs: Abnormal Lab Results - Last 24 Hours (Table) 10/17/23 10/17/23 10/18/23 Range/Units 17:14 20:20 05:51 RBC 3.41 L (4.40-5.60) X 10*6/uL Hgb 11.5 L (13.0-17.0) g/dL Hct 33.8 L (39.6-50.0) % MCV 99.1 H (80.0-97.0) FL MCH 33.7 H (27.0-32.0) pg Plt Count 90 L (140-440) X 10*3/uL Lymphocytes # 0.56 L (0.90-5.00) X 10*3/uL Eosinophils # 0 L (0.04-0.35) X 10*3/uL BUN (9.0-27.0) mg/dL BUN/Creatinine Ratio (12.00-20.00) Ratio Glucose (70-110) mg/dL POC Glucose (mg/dL) 270 H 294 H (70-110) mg/dL C-Reactive Protein (0.00-0.80) mg/dL 10/18/23 10/18/23 10/18/23 Range/Units 05:51 07:03 11:56 RBC (4.40-5.60) X 10*6/uL Hgb (13.0-17.0) g/dL Hct (39.6-50.0) % MCV (80.0-97.0) FL MCH (27.0-32.0) pg Plt Count (140-440) X 10*3/uL Lymphocytes # (0.90-5.00) X 10*3/uL Eosinophils # (0.04-0.35) X 10*3/uL BUN 32.2 H (9.0-27.0) mg/dL BUN/Creatinine Ratio 35.78 H (12.00-20.00) Ratio Glucose 271 H (70-110) mg/dL POC Glucose (mg/dL) 268 H 324 H (70-110) mg/dL C-Reactive Protein 1.50 H (0.00-0.80) mg/dL Microbiology - Last 24 Hours (Table) 10/16/23 11:25 Urine Culture - Final Urine,Catheterized 10/16/23 02:40 Blood Culture - Preliminary Blood Assessment and Plan Plan: 1patient who did have a left gluteal area pain pump and also noticed to have some erythema and mild ulceration with some slough tissue however no significant erythema drainage was noticed clinical examination suspicious low for abscess or cellulitis in this patient with no fever or elevated white count however the patient did have a fever of 103 F on 10/15/2023 and blood culture has been obtained which are currently pending 2-for now continue with Zosyn while waiting for the culture to finalize and check inflammatory markers 3-keep the area of pressure as much as possible We will follow on clinical condition and cultures to further adjust medication if needed Thank you for this consultation we will follow the patient along with you Dictation was produced using [employer] dictation software. please excuse any grammatical, word or spelling errors. Time with Patient: Greater than 30
[2023-10-19 02:13] LABS: Amorphous Sediment,Urine Occasional /hpf; Appearance,Urine Cloudy (Clear); Bacteria,Urine Occasional /hpf; Bilirubin,Urine Negative (Negative); Blood,Urine Moderate (Negative); Color,Urine Light Red; Glucose,Urine (UA) Trace (Negative); Hyaline Casts,Urine 3 /lpf (0-2); Ketones,Urine Negative (Negative); Leukocyte Esterase,Urine Trace (Negative); Nitrite,Urine Negative (Negative); PH, Urine 5.5 (5.0-8.0); Protein,Urine 1+ (Negative); RBC,Urine >182 /hpf (0-5); Specific Gravity,Urine 1.015 (1.001-1.035); Squamous Epithelial Cell,Urine <1 /hpf (0-4); Urobilinogen,Urine <2.0 mg/dL (<2.0); WBC,Urine 3 /hpf (0-5)
[2023-10-19 07:15] LABS: Glucose,Whole Blood 273 mg/dL (70-110)
[2023-10-19 11:50] LABS: BUN/Creat Ratio 28.11 Ratio (12.00-20.00); Blood Urea Nitrogen 25.3 mg/dL (9.0-27.0); Calcium 9.2 mg/dL (8.7-10.3); Chloride 100 mmol/L (96-109); Glucose 257 mg/dL (70-110); Potassium 4.4 mmol/L (3.5-5.5); Sodium 137 mmol/L (135-145)
--- NOTE | 2023-10-19 11:57 | P.CONS ---
History of Present Illness - Reason for Consult Consult date: 10/19/23 wound care - History of Present Illness This is a 63-year-old patient being seen on [address] for a stage II pressure ulcer to the sacral region. Ulceration measures approximately 0.4 x 0.4 x 0.1 cm with fat layer exposed. The periwound shows excoriation. No tunneling or undermining noted. Minimal drainage noted to the site. Patient's past medical history significant for diabetes, CVA, COPD, hyperlipidemia, hypertension, TN, hepatitis C seizure disorder. Review Of Systems: Constitutional: No fever, no chills, no night sweats. No weight change. No weakness, fatigue or lethargy. No daytime sleepiness. Integumentary:reports wounds, no lesions. No rash or pruritus. No unusual bruising. No change in hair or nails. Physical exam: General Appearance: Alert, cooperative, no distress, appears stated age. Skin: See HPI all other Skin color, texture, tugor normal, no rashes or lesions. Neurologic: Alert oriented x3 Assessment: 1. Stage II pressure ulcer sacral 2. Diabetes with skin ulceration Plan: 1. Apply honey gel to the ulceration zinc barrier cream to excoriation a border foam. Change Wednesday. Turn patient to every 2 hours. Utilize air-filled cushion while sitting. Patient may benefit from advanced wound care and wound care setting would be happy to see him. Patient was rel uctant to agree to outpatient wound care. Thank you for the consultation any questions to contact the wound care center DNP note has been reviewed and discussed with Dr. Heath and the impression and plan of care has been directed as dictated. Past Medical History Past Medical History: COPD, CVA/TIA, Diabetes Mellitus, Hyperlipidemia, Hypertension, Memory Impairment, Myocardial Infarction (TN), Prostate Disorder, Seizure Disorder, Skin Disorder Additional Past Medical History / Comment(s): duodenal ulcer, pain and numbness cyrus legs and feet,pain pump in back, anemia. TIA X3, HEPATITIS C PAST HISTORY, LAST SEIZURE 2012,hiatal hernia Last Myocardial Infarction Date:: POSSIBLE TN 2012 History of Any Multi-Drug Resistant Organisms: None Reported Past Surgical History: Appendectomy, Back Surgery, Heart Catheterization, Orthopedic Surgery Additional Past Surgical History / Comment(s): titanium lyn in lt leg, skin graph to rt 1st and middle finger, lt eardum replaced, cyrus. foot surgery to arch, cataract surgery bilateral with implant,skin graft left leg Past Anesthesia/Blood Transfusion Reactions: No Reported Reaction Past Psychological History: Anxiety, Depression Additional Psychological History / Comment(s): past history of depression Smoking Status: Former smoker Past Alcohol Use History: None Reported Additional Past Alcohol Use History / Comment(s): Pt started smoking in 1974 and is a 1-2ppd smoker Past Drug Use History: None Reported - Past Family History Mother Family Medical History: Diabetes Mellitus, Pulmonary Embolus Father Additional Family Medical History / Comment(s): Father had pain problems/hallucinations. He committed suicide. Medications and Allergies Home Medications Medication Instructions Recorded Confirmed Type Albuterol Sulfate [Proair Hfa] 2 puff INHALATION RT-QID PRN 10/22/20 10/12/23 History Ferrous Sulfate [Iron (65 MG 325 mg PO DAILY 12/10/20 10/12/23 History Elemental)] Clopidogrel [Plavix] 75 mg PO HS 06/30/21 10/12/23 History Primidone [Mysoline] 50 mg PO HS 06/30/21 10/12/23 History Escitalopram [Lexapro] 20 mg PO HS 02/23/23 10/12/23 History Rosuvastatin Calcium [Crestor] 40 mg PO HS 03/14/23 10/12/23 History Acetaminophen Tab [Tylenol] 325 mg PO Q6HR PRN tab 03/16/23 10/12/23 Rx Lacosamide [Vimpat] 200 mg PO BID #6 tab 03/16/23 10/12/23 Rx Aspirin EC [Ecotrin Low Dose] 81 mg PO DAILY 05/22/23 10/12/23 History Multivitamins, Thera [Multivitamin 1 tab PO DAILY 05/22/23 10/12/23 History (formulary)] Insulin Detemir [Levemir Flexpen] 48 units SQ DAILY 06/15/23 10/12/23 History Lactulose [Cephulac] 20 gm PO TID 09/08/23 10/12/23 History amLODIPine [Norvasc] 2.5 mg PO BID 09/08/23 10/12/23 History Budesonide-Formot 160-4.5 Mcg 2 puff INHALATION RT-BID #1 each 09/10/23 10/12/23 Rx [Symbicort 160-4.5 Mcg Inhaler] Ipratropium-Albuterol Nebulize 3 ml INHALATION RT-QID PRN #120 09/10/23 10/12/23 Rx [Duoneb 0.5 mg-3 mg/3 ml Soln] each Insulin Lispro [humaLOG Kwikpen] See Protocol SQ ACHS 10/12/23 10/12/23 History Allergies Allergy/AdvReac Type Severity Reaction Status Date / Time morphine AdvReac Nausea & Verified 10/12/23 20:25 Vomiting Physical Exam Vitals: Vital Signs Temp Pulse Pulse Resp BP BP Pulse Ox 10/19/23 09:28 64 10/19/23 09:20 92 L 10/19/23 09:12 64 10/19/23 07:16 97.9 F 56 L 18 123/71 95 10/19/23 01:47 98.6 F 62 17 164/69 95 10/18/23 19:14 99.0 F 72 18 151/67 93 L 10/18/23 18:39 60 10/18/23 18:25 64 10/18/23 15:48 66 10/18/23 15:36 66 10/18/23 13:45 98.7 F 67 18 156/74 93 L Intake and Output 10/18/23 10/19/23 10/19/23 22:59 06:59 14:59 Intake Total 240 Output Total 1150 500 Balance 240 -1150 -500 Intake: Oral 240 Output: Urine 1150 500 Other: Voiding Method External Catheter External Catheter # Bowel Movements 1 1 Results CBC & Chem 7: 10/18/23 05:51 10/19/23 07:33 Labs: Abnormal Lab Results - Last 24 Hours (Table) 10/18/23 10/18/23 10/18/23 Range/Units 11:56 17:08 20:29 BUN/Creatinine Ratio (12.00-20.00) Ratio Glucose (70-110) mg/dL POC Glucose (mg/dL) 324 H 313 H 226 H (70-110) mg/dL Procalcitonin (0.02-0.09) ng/mL Urine Protein (Negative) Urine Glucose (UA) (Negative) Urine Blood (Negative) Ur Leukocyte Esterase (Negative) Urine RBC (0-5) /hpf Amorphous Sediment (None) /hpf Urine Bacteria (None) /hpf Hyaline Casts (0-2) /lpf 10/19/23 10/19/23 10/19/23 Range/Units 01:48 07:14 07:33 BUN/Creatinine Ratio 28.11 H (12.00-20.00) Ratio Glucose 257 H (70-110) mg/dL POC Glucose (mg/dL) 273 H (70-110) mg/dL Procalcitonin (0.02-0.09) ng/mL Urine Protein 1+ H (Negative) Urine Glucose (UA) Trace H (Negative) Urine Blood Moderate H (Negative) Ur Leukocyte Esterase Trace H (Negative) Urine RBC >182 H (0-5) /hpf Amorphous Sediment Occasional H (None) /hpf Urine Bacteria Occasional H (None) /hpf Hyaline Casts 3 H (0-2) /lpf 10/19/23 Range/Units 07:33 BUN/Creatinine Ratio (12.00-20.00) Ratio Glucose (70-110) mg/dL POC Glucose (mg/dL) (70-110) mg/dL Procalcitonin 0.11 H (0.02-0.09) ng/mL Urine Protein (Negative) Urine Glucose (UA) (Negative) Urine Blood (Negative) Ur Leukocyte Esterase (Negative) Urine RBC (0-5) /hpf Amorphous Sediment (None) /hpf Urine Bacteria (None) /hpf Hyaline Casts (0-2) /lpf Microbiology - Last 24 Hours (Table) 10/16/23 02:40 Blood Culture - Preliminary Blood Assessment and Plan (1) Stage II pressure ulcer of sacral region Current Visit: Yes Status: Acute Code(s): L89.152 - PRESSURE ULCER OF SACRAL REGION, STAGE 2 SNOMED Code(s): 43183053647982 (2) Type 2 diabetes mellitus with other skin ulcer Current Visit: Yes Status: Acute Code(s): E11.622 - TYPE 2 DIABETES MELLITUS WITH OTHER SKIN ULCER; L98.499 - NON-PRESSURE CHRONIC ULCER OF SKIN OF SITES W UNSP SEVERITY SNOMED Code(s): 376111089
[2023-10-19 12:01] LABS: Glucose,Whole Blood 256 mg/dL (70-110)
[2023-10-19 12:03] LABS: HCT 36.6 % (39.6-50.0); HGB 12.7 g/dL (13.0-17.0); MCH 33.4 pg (27.0-32.0); MCHC 34.7 g/dL (32.0-37.0); MCV 96.3 FL (80.0-97.0); Mean Platelet Volume 10.9 FL (9.5-12.2); NRBC Per 100 WBC 0 X 10*3/uL (0.00-0.01); Platelet Count 121 X 10*3/uL (140-440); RDW 12.6 % (11.5-14.5); WBC 8.09 X 10*3/uL (4.50-10.00)
--- NOTE | 2023-10-19 13:06 | P.PN ---
Subjective Progress Note Date: 10/19/23 64-year-old male patient presents to the intensive care unit because of increased oxygen requirements. He was placed on 6 L of oxygen by nasal cannula, this morning is on 4 L with a pulse ox of 95%. Reviewed the chest x-ray and it shows no acute cardiopulmonary process. He is calm and comfortable. No respiratory difficulties. No chest pain. No significant shortness of breath on today's evaluation. Mental status is improved. The white cell count at 7.5 hemoglobin is 14 and a platelet count is 83, electrolytes all within normal limits. The patient is on DuoNeb updrafts. Blood sugars slightly elevated and the patient is currently on Levemir insulin 48 units and a sliding scale coverage. He is on IV Zosyn suspecting a wound infection at the site of the previously inserted pain pump where the patient has a superficial ulcer in that location. He came into the hospital originally on 10/13/2023 with generalized weakness and lethargy. He was quite obtunded and he is much improved at this p oint in time. His empiric antibiotic coverage with IV Zosyn. He is wheelchair- bound. He was diagnosed having normal pressure hydrocephalus and he was not found to be a good candidate for a ED EDUCATIONAL AIDE shunt. Neurology on the case for now. No seizure activity. He has previous history of seizure disorder. No witnessed seizures. He is currently on Vimpat. He also has a previous history of a right truncal ischemic infarct. He has a combination of comorbidities, primary stable at this point in time. His last seizure activity was back in 2012 and he has been seizure-free. Last EEG was done in February 2023 showed mild encephalopathy. 10/17/2023, the patient is doing extremely well. No altered mentation. No shortness of breath or chest pain. Blood work shows a WC count 6.4 with a hemoglobin 11.8, BUN 27 with a creatinine of 1 and a sodium level of 137. He is on DuoNeb updrafts. He got moved out of the intensive care unit yesterday. He is afebrile. No signs of any sepsis at this point in time. Remains on empiric antibiotic coverage with IV Zosyn. The patient is seen today October 18, 2023 in follow-up on the regular medical floor. He is awake and alert in no acute distress. He denies any worsening shortness of breath, cough or congestion. He is maintaining O2 saturations in the 90s on 2 L/min per nasal cannula. He is continued on Zosyn. Blood cultures revealed no growth. Urine culture reveals no growth. White count 6.0. Hemoglobin 11.5. Platelets 90,000. Sodium 134. Potassium 4.1. Bicarb 27. BUN 32. Creatinine 0.9. Glucose 271. He is currently in a -2 L balance. The patient is seen today October 19, 2023 in follow-up on the regular medical floor. He remains awake and alert in no acute distress. No altered mentation. No worsening shortness of breath cough or congestion. He is maintaining good O2 saturations in the 90s on room air. He is afebrile. Hemodynamically stable. Blood cultures revealed no growth. Urine culture revealed no growth. He does have a stage II pressure ulcer in the sacral region which is being treated by the wound center nurse practitioner. White count 8.0. Hemoglobin 12.7. Platelets 121. Sodium 137. Potassium 4.4. Bicarb 25. BUN 25. Creatinine 0.9. Glucose 257. Procalcitonin 0.11. He remains on DuoNeb ventilations, Symbicort, Solu-Medrol. Remains on antibiotics in the form of Zosyn. Currently in a -1.4 L balance. Objective - Vital Signs Vital signs: Vital Signs Temp 97.9 F 10/19/23 07:16 Pulse 64 10/19/23 09:28 Resp 18 10/19/23 07:16 BP 123/71 10/19/23 07:16 Pulse Ox 92 L 10/19/23 09:20 FiO2 Intake & Output 10/18/23 10/19/23 10/19/23 18:59 06:59 18:59 Intake Total 240 Output Total 500 1150 500 Balance -500 -910 -500 Intake: Oral 240 Output: Urine 500 1150 500 Other: Voiding Method Indwelling Catheter External Catheter External Catheter # Voids 1 # Bowel Movements 1 1 - Exam GENERAL EXAM: Alert, oriented, pleasant 63-year-old male, resting in bed, currently on room air. HEAD: Normocephalic. EYES: Normal reaction of pupils, equal size. NOSE: Clear with pink turbinates. THROAT: No erythema or exudates. NECK: No masses, no JVD. CHEST: No chest wall deformity. LUNGS: Equal air entry with no crackles, wheeze, rhonchi or dullness. CVS: S1 and S2 normal with no audible murmur, regular rhythm. ABDOMEN: No hepatosplenomegaly, normal bowel sounds, no guarding or rigidity. SPINE: No scoliosis or deformity SKIN: No rashes, stage II pressure ulcer near the previously inserted pain pump with superficial ulceration and some minimal amount of purulence. CENTRAL NERVOUS SYSTEM: Deficits from previous CVA, tone is normal in all 4 extremities. EXTREMITIES: Weakness, wheelchair-bound, there is no peripheral edema. No clubbing, no cyanosis. Peripheral pulses are intact. - Labs CBC & Chem 7: 10/19/23 07:33 10/19/23 07:33 Labs: Abnormal Lab Results - Last 24 Hours (Table) 10/18/23 10/18/23 10/19/23 Range/Units 17:08 20:29 01:48 RBC (4.40-5.60) X 10*6/uL Hgb (13.0-17.0) g/dL Hct (39.6-50.0) % MCH (27.0-32.0) pg Plt Count (140-440) X 10*3/uL BUN/Creatinine Ratio (12.00-20.00) Ratio Glucose (70-110) mg/dL POC Glucose (mg/dL) 313 H 226 H (70-110) mg/dL Procalcitonin (0.02-0.09) ng/mL Urine Protein 1+ H (Negative) Urine Glucose (UA) Trace H (Negative) Urine Blood Moderate H (Negative) Ur Leukocyte Esterase Trace H (Negative) Urine RBC >182 H (0-5) /hpf Amorphous Sediment Occasional H (None) /hpf Urine Bacteria Occasional H (None) /hpf Hyaline Casts 3 H (0-2) /lpf 10/19/23 10/19/23 10/19/23 Range/Units 07:14 07:33 07:33 RBC 3.80 L (4.40-5.60) X 10*6/uL Hgb 12.7 L (13.0-17.0) g/dL Hct 36.6 L (39.6-50.0) % MCH 33.4 H (27.0-32.0) pg Plt Count 121 L (140-440) X 10*3/uL BUN/Creatinine Ratio 28.11 H (12.00-20.00) Ratio Glucose 257 H (70-110) mg/dL POC Glucose (mg/dL) 273 H (70-110) mg/dL Procalcitonin (0.02-0.09) ng/mL Urine Protein (Negative) Urine Glucose (UA) (Negative) Urine Blood (Negative) Ur Leukocyte Esterase (Negative) Urine RBC (0-5) /hpf Amorphous Sediment (None) /hpf Urine Bacteria (None) /hpf Hyaline Casts (0-2) /lpf 10/19/23 10/19/23 Range/Units 07:33 11:59 RBC (4.40-5.60) X 10*6/uL Hgb (13.0-17.0) g/dL Hct (39.6-50.0) % MCH (27.0-32.0) pg Plt Count (140-440) X 10*3/uL BUN/Creatinine Ratio (12.00-20.00) Ratio Glucose (70-110) mg/dL POC Glucose (mg/dL) 256 H (70-110) mg/dL Procalcitonin 0.11 H (0.02-0.09) ng/mL Urine Protein (Negative) Urine Glucose (UA) (Negative) Urine Blood (Negative) Ur Leukocyte Esterase (Negative) Urine RBC (0-5) /hpf Amorphous Sediment (None) /hpf Urine Bacteria (None) /hpf Hyaline Casts (0-2) /lpf Microbiology - Last 24 Hours (Table) 10/16/23 02:40 Blood Culture - Preliminary Blood Assessment and Plan Assessment: Altered mental status of unclear etiology, improved. There may be underlying encephalopathy at the time of admission and the patient is currently appropriate and awake and alert. Neurology on the case. No seizure activity has been noted. He has previous history of seizure disorder. No seizure activity has been witnessed and the patient has been maintained on Vimpat. The patient also has had previous history of CVA. The CAT scan of the brain that was done on 10/12/2023 showed no acute abnormalities. Moderate ventriculomegaly which may be essentially consistent with normal pressure hydrocephalus. He has a remote right frontal infarct. Acute hypoxic respiratory failure, 2 liters 02, chest x-ray shows no acute abnormalities Fever, currently afebrile and covered with IV Zosyn. Ruled out underlying urine tract infection. He does have a superficial wound infection on his buttocks at the site of the pain pump insertion Superficial wound over the buttocks without any abscess formation. General surgery is on the case COPD with chronic hypoxic respiratory failure maintained on home O2 at 2 L History of CVA right frontal 1 maintained on Vimpat History of seizure disorder Chronic neck and back pain with pain Former smoker Memory impairment, consider normal pressure hydrocephalus Hypertension Diabetes mellitus, type II Hypertension History of hepatitis C with secondary to liver cirrhosis Anxiety/depression Chronic thrombocytopenia Poor overall functional performance based on the above-mentioned multiple comorbidities Plan: The patient was seen and evaluated Labs and medications reviewed Stable and on room air Seen by the wound center TREE PLANTER regarding stage II ulcer of the buttocks Antibiotics per ID service currently on Zosyn Continue bronchodilators Discontinue IV Solu-Medrol, continue prednisone taper This patient was seen independently by the pulmonary nurse practitioner addressing pulmonary issues I have personally seen and examined the patient, performed the documentation and the assessment and plan as written. Number of minutes spent on the visit: 23.
[2023-10-19 17:14] LABS: Glucose,Whole Blood 297 mg/dL (70-110)
[2023-10-19] MEDS: INSULIN DETEMIR (LEVEMIR) 100 UNIT/ML SYR SQ ONE (18:39)
--- NOTE | 2023-10-19 19:19 | P.PN ---
Subjective Progress Note Date: 10/19/23 This is a 63-year-old gentleman this is a 63-year-old gentleman admitted with sacral pressure ulcer, stage II,near his pain pump, improving on IV antibiotics of Zosyn as per infectious disease. Afebrile, Tmax 99 ,normal WBC, procalcitonin 0.11, urine culture reported no growth after 18 hours. Preliminary blood culture reported no growth after 72 hours sensorium significantly improved. Continues on nebulized bronchodilators, Symbicort, IV steroids, with blood sugars elevated in the 250s to 270s. denies chest pain, palpitations or shortness of breath. O2 sats in the 90s on room air. Maintained on Vimpat, no seizure activity reported. Objective - Vital Signs Vital signs: Vital Signs Temp 96.9 F L 10/19/23 13:36 Pulse 79 10/19/23 13:36 Resp 20 10/19/23 13:36 BP 169/97 10/19/23 13:36 Pulse Ox 95 10/19/23 13:36 FiO2 Intake & Output 10/18/23 10/19/23 10/19/23 18:59 06:59 18:59 Intake Total 240 Output Total 500 1150 500 Balance -500 -910 -500 Intake: Oral 240 Output: Urine 500 1150 500 Other: Voiding Method Indwelling Catheter External Catheter External Catheter # Voids 1 # Bowel Movements 1 1 - Exam PHYSICAL EXAM: VITAL SIGNS: [As above] GENERAL: Alert and oriented x 2, sitting up in bed, no acute distress HEENT: Normocephalic, conjunctivae normal. eyes normal. NECK: Supple, no JVD. CARDIOVASCULAR: S1, S2 regular. No murmur RESPIRATION: Unlabored, equal air entry, breath sounds diminished in the bases. No rhonchi or crackles. No bronchial breathing. ABDOMEN: Soft, nontender . No guarding. no masses palpable. No guarding, no rigidity, positive bowel sounds LEGS: No edema. no swelling, no clubbing, no cyanosis NERVOUS SYSTEM: Cranial N 2-12 grossly normal. Prior CVA residual deficits, we [id number]. Skin: Sacral stage II pressure ulcer near inserted pain pump with mild donald ration, decreased redness - Labs CBC & Chem 7: 10/19/23 07:33 10/19/23 07:33 Labs: Abnormal Lab Results - Last 24 Hours (Table) 10/18/23 10/18/23 10/19/23 Range/Units 17:08 20:29 01:48 RBC (4.40-5.60) X 10*6/uL Hgb (13.0-17.0) g/dL Hct (39.6-50.0) % MCH (27.0-32.0) pg Plt Count (140-440) X 10*3/uL BUN/Creatinine Ratio (12.00-20.00) Ratio Glucose (70-110) mg/dL POC Glucose (mg/dL) 313 H 226 H (70-110) mg/dL Procalcitonin (0.02-0.09) ng/mL Urine Protein 1+ H (Negative) Urine Glucose (UA) Trace H (Negative) Urine Blood Moderate H (Negative) Ur Leukocyte Esterase Trace H (Negative) Urine RBC >182 H (0-5) /hpf Amorphous Sediment Occasional H (None) /hpf Urine Bacteria Occasional H (None) /hpf Hyaline Casts 3 H (0-2) /lpf 10/19/23 10/19/23 10/19/23 Range/Units 07:14 07:33 07:33 RBC 3.80 L (4.40-5.60) X 10*6/uL Hgb 12.7 L (13.0-17.0) g/dL Hct 36.6 L (39.6-50.0) % MCH 33.4 H (27.0-32.0) pg Plt Count 121 L (140-440) X 10*3/uL BUN/Creatinine Ratio 28.11 H (12.00-20.00) Ratio Glucose 257 H (70-110) mg/dL POC Glucose (mg/dL) 273 H (70-110) mg/dL Procalcitonin (0.02-0.09) ng/mL Urine Protein (Negative) Urine Glucose (UA) (Negative) Urine Blood (Negative) Ur Leukocyte Esterase (Negative) Urine RBC (0-5) /hpf Amorphous Sediment (None) /hpf Urine Bacteria (None) /hpf Hyaline Casts (0-2) /lpf 10/19/23 10/19/23 Range/Units 07:33 11:59 RBC (4.40-5.60) X 10*6/uL Hgb (13.0-17.0) g/dL Hct (39.6-50.0) % MCH (27.0-32.0) pg Plt Count (140-440) X 10*3/uL BUN/Creatinine Ratio (12.00-20.00) Ratio Glucose (70-110) mg/dL POC Glucose (mg/dL) 256 H (70-110) mg/dL Procalcitonin 0.11 H (0.02-0.09) ng/mL Urine Protein (Negative) Urine Glucose (UA) (Negative) Urine Blood (Negative) Ur Leukocyte Esterase (Negative) Urine RBC (0-5) /hpf Amorphous Sediment (None) /hpf Urine Bacteria (None) /hpf Hyaline Casts (0-2) /lpf Microbiology - Last 24 Hours (Table) 10/16/23 02:40 Blood Culture - Preliminary Blood Assessment and Plan Assessment: Acute toxic, metabolic encephalopathy. Brain CT on 10/12/2023 reports remote right frontal lobe infarct, stable moderate supratentorial ventriculomegaly which may be essentially consistent with normal pressure hydrocephalus worsening per neurology evaluation. Acute on chronic hypoxic respiratory failure, wears 2 L nasal cannula at home. Sacral stage II pressure ulcer near inserted pain pump, wound care team following History of TIAs, seizure disorder History of CVA, right frontal Memory impairment over the last 10 years possibly related to normal pressure hydrocephalus COPD Chronic pain, back and neck, pain pump Chronic liver disease, history of hepatitis C, cirrhosis Chronic thrombocytopenia Diabetes mellitus II Hypertension Former nicotine dependence Plan: Continue on current medication regimen ,monitoring and symptomatic treatment. Close monitoring of Accu-Cheks with Levemir dose increased. Wound care as per wound care team. Antibiotics as per ID. Discharge planning in progress for tomorrow pending final DC recommendations and clearance per ID and pulmonary. The impression and plan of care has been dictated as directed. : I performed a history and examination of this patient, discussed the same with the dictator. I agree with the dictator's note ,documented as a scribe. Any additional findings or plans will be noted.
[2023-10-19 20:38] LABS: Glucose,Whole Blood 307 mg/dL (70-110)
[2023-10-20 07:06] LABS: Glucose,Whole Blood 196 mg/dL (70-110)
[2023-10-20 08:16] VITALS: TEMP 98.4
[2023-10-20] MEDS: INSULIN DETEMIR (LEVEMIR) 100 UNIT/ML SYR SQ SCH (08:21)
--- NOTE | 2023-10-20 11:18 | P.PN ---
Subjective Progress Note Date: 10/20/23 64-year-old male patient presents to the intensive care unit because of increased oxygen requirements. He was placed on 6 L of oxygen by nasal cannula, this morning is on 4 L with a pulse ox of 95%. Reviewed the chest x-ray and it shows no acute cardiopulmonary process. He is calm and comfortable. No respiratory difficulties. No chest pain. No significant shortness of breath on today's evaluation. Mental status is improved. The white cell count at 7.5 hemoglobin is 14 and a platelet count is 83, electrolytes all within normal limits. The patient is on DuoNeb updrafts. Blood sugars slightly elevated and the patient is currently on Levemir insulin 48 units and a sliding scale coverage. He is on IV Zosyn suspecting a wound infection at the site of the previously inserted pain pump where the patient has a superficial ulcer in that location. He came into the hospital originally on 10/13/2023 with generalized weakness and lethargy. He was quite obtunded and he is much improved at this p oint in time. His empiric antibiotic coverage with IV Zosyn. He is wheelchair- bound. 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 Neurology on the case for now. No seizure activity. He has previous history of seizure disorder. No witnessed seizures. He is currently on Vimpat. He also has a previous history of a right truncal ischemic infarct. He has a combination of comorbidities, primary stable at this point in time. His last seizure activity was back in 2012 and he has been seizure-free. Last EEG was done in February 2023 showed mild encephalopathy. 10/17/2023, the patient is doing extremely well. No altered mentation. No shortness of breath or chest pain. Blood work shows a WC count 6.4 with a hemoglobin 11.8, BUN 27 with a creatinine of 1 and a sodium level of 137. He is on DuoNeb updrafts. He got moved out of the intensive care unit yesterday. He is afebrile. No signs of any sepsis at this point in time. Remains on empiric antibiotic coverage with IV Zosyn. The patient is seen today October 18, 2023 in follow-up on the regular medical floor. He is awake and alert in no acute distress. He denies any worsening shortness of breath, cough or congestion. He is maintaining O2 saturations in the 90s on 2 L/min per nasal cannula. He is continued on Zosyn. Blood cultures revealed no growth. Urine culture reveals no growth. White count 6.0. Hemoglobin 11.5. Platelets 90,000. Sodium 134. Potassium 4.1. Bicarb 27. BUN 32. Creatinine 0.9. Glucose 271. He is currently in a -2 L balance. The patient is seen today October 19, 2023 in follow-up on the regular medical floor. He remains awake and alert in no acute distress. No altered mentation. No worsening shortness of breath cough or congestion. He is maintaining good O2 saturations in the 90s on room air. He is afebrile. Hemodynamically stable. Blood cultures revealed no growth. Urine culture revealed no growth. He does have a stage II pressure ulcer in the sacral region which is being treated by the wound center nurse practitioner. White count 8.0. Hemoglobin 12.7. Platelets 121. Sodium 137. Potassium 4.4. Bicarb 25. BUN 25. Creatinine 0.9. Glucose 257. Procalcitonin 0.11. He remains on DuoNeb ventilations, Symbicort, Solu-Medrol. Remains on antibiotics in the form of Zosyn. Currently in a -1.4 L balance. The patient is seen today October 20, 2023 in follow-up on the regular medical floor. He is resting comfortably in bed. Awake and alert in no acute distress. Maintaining O2 saturations in the 90s on room air. He remains afebrile. Hemodynamically stable. Blood cultures revealed no growth. Urine culture revealed no growth. Blood sugar 196. He is currently in a -1.6 L balance. He remains on DuoNeb ventilations, Symbicort. Antibiotics in the form of Zosyn. Levemir and NovoLog sliding scale. Remains on Vimpat. No breakthrough seizures. Objective - Vital Signs Vital signs: Vital Signs Temp 98.4 F 10/20/23 07:07 Pulse 84 10/20/23 10:27 Resp 16 10/20/23 07:07 BP 144/82 10/20/23 07:07 Pulse Ox 93 L 10/20/23 10:07 FiO2 Intake & Output 10/19/23 10/20/23 10/20/23 18:59 06:59 18:59 Output Total 1000 600 400 Balance -1000 -600 -400 Output: Urine 1000 600 400 Other: Voiding Method External Catheter External Catheter # Voids 0 # Bowel Movements 1 2 1 - Exam GENERAL EXAM: Alert, 63-year-old male, resting in bed, currently on room air, in no distress. HEAD: Normocephalic. EYES: Normal reaction of pupils, equal size. NOSE: Clear with pink turbinates. THROAT: No erythema or exudates. NECK: No masses, no JVD. CHEST: No chest wall deformity. LUNGS: Equal air entry with no crackles, wheeze, rhonchi or dullness. CVS: S1 and S2 normal with no audible murmur, regular rhythm. ABDOMEN: No hepatosplenomegaly, normal bowel sounds, no guarding or rigidity. SPINE: No scoliosis or deformity SKIN: No rashes, stage II pressure ulcer near the previously inserted pain pump with superficial ulceration and some minimal amount of purulence. CENTRAL NERVOUS SYSTEM: Deficits from previous CVA, tone is normal in all 4 extremities. EXTREMITIES: Weakness, wheelchair-bound, there is no peripheral edema. No clubbing, no cyanosis. Peripheral pulses are intact. - Labs CBC & Chem 7: 10/19/23 07:33 10/19/23 07:33 Labs: Abnormal Lab Results - Last 24 Hours (Table) 10/19/23 10/19/23 10/19/23 Range/Units 07:33 07:33 07:33 RBC 3.80 L (4.40-5.60) X 10*6/uL Hgb 12.7 L (13.0-17.0) g/dL Hct 36.6 L (39.6-50.0) % MCH 33.4 H (27.0-32.0) pg Plt Count 121 L (140-440) X 10*3/uL BUN/Creatinine Ratio 28.11 H (12.00-20.00) Ratio Glucose 257 H (70-110) mg/dL POC Glucose (mg/dL) (70-110) mg/dL Procalcitonin 0.11 H (0.02-0.09) ng/mL 10/19/23 10/19/23 10/19/23 Range/Units 11:59 17:12 20:36 RBC (4.40-5.60) X 10*6/uL Hgb (13.0-17.0) g/dL Hct (39.6-50.0) % MCH (27.0-32.0) pg Plt Count (140-440) X 10*3/uL BUN/Creatinine Ratio (12.00-20.00) Ratio Glucose (70-110) mg/dL POC Glucose (mg/dL) 256 H 297 H 307 H (70-110) mg/dL Procalcitonin (0.02-0.09) ng/mL 10/20/23 Range/Units 07:04 RBC (4.40-5.60) X 10*6/uL Hgb (13.0-17.0) g/dL Hct (39.6-50.0) % MCH (27.0-32.0) pg Plt Count (140-440) X 10*3/uL BUN/Creatinine Ratio (12.00-20.00) Ratio Glucose (70-110) mg/dL POC Glucose (mg/dL) 196 H (70-110) mg/dL Procalcitonin (0.02-0.09) ng/mL Microbiology - Last 24 Hours (Table) 10/16/23 02:40 Blood Culture - Preliminary Blood Assessment and Plan Assessment: Altered mental status of unclear etiology, improved. There may be underlying encephalopathy at the time of admission and is currently appropriate and awake and alert. He has previous history of seizure disorder. No seizure activity has been witnessed and the patient has been maintained on Vimpat. The patient also has had previous history of CVA. The CAT scan of the brain that was done on 10/12/2023 showed no acute abnormalities. Moderate ventriculomegaly which may be essentially consistent with normal pressure hydrocephalus. He has a remote right frontal infarct. Acute hypoxic respiratory failure, chest x-ray shows no acute abnormalities, recovered and on room air Fever, currently afebrile and covered with IV Zosyn. Urine and blood cultures showed no growth. Superficial wound over the buttocks without any abscess formation. General surgery is on the case COPD with chronic hypoxic respiratory failure maintained on home O2 at 2 L History of CVA right frontal History of seizure disorder, maintained on Vimpat Chronic neck and back pain with pain pump Former smoker Memory impairment, consider normal pressure hydrocephalus Hypertension Diabetes mellitus, type II Hypertension History of hepatitis C with secondary to liver cirrhosis Anxiety/depression Chronic thrombocytopenia Poor overall functional performance based on the above-mentioned multiple comorbidities Plan: The patient was seen and evaluated Labs and medications reviewed Stable and on room air Currently on Zosyn per ID service Blood culture reveals no growth at 72 hours Plan is for subacute rehab at [facility] if approved This patient was seen independently by the pulmonary nurse practitioner addressing pulmonary issues I have personally seen and examined the patient, performed the documentation and the assessment and plan as written. Number of minutes spent on the visit: 24.
[2023-10-20 12:06] LABS: Glucose,Whole Blood 363 mg/dL (70-110)
[2023-10-20 15:15] VITALS: BP 138/67; PULSE 66; RESP 20
--- NOTE | 2023-10-21 14:33 | P.DS ---
Providers Date of admission: 10/12/23 19:56 Expected date of discharge: 10/20/23 Attending physician: Dmitriy Liu MD Consults: 10/12/23 19:55 Consult Physician Routine Consulting Provider: Radha Mccarthy Consult Reason/Comments: ams,nph Do you want consulting provider notified?: Yes 10/16/23 02:45 Consult Physician Stat Consulting Provider: Cha Burnett Consult Reason/Comments: SOB, pneumonia Do you want consulting provider notified?: Yes 10/16/23 03:49 Consult Physician Stat Consulting Provider: Cha Burnett Consult Reason/Comments: icu new pt admit Do you want consulting provider notified?: Yes 10/18/23 10:54 Consult Physician Routine Consulting Provider: Gia Hurd Consult Reason/Comments: buttock cellulitis, on Zosyn, eval for dc antibiotics Do you want consulting provider notified?: Yes Primary care physician: Dmitriy Liu MD Hospital Course: Final Diagnoses: Acute toxic, metabolic encephalopathy. Brain CT on 10/12/2023 reports remote right frontal lobe infarct, stable moderate supratentorial ventriculomegaly which may be essentially consistent with normal pressure hydrocephalus worsening per neurology evaluation. Acute on chronic hypoxic respiratory failure, wears 2 L nasal cannula at home. Sacral stage II pressure ulcer near inserted pain pump, wound care team following History of TIAs, seizure disorder History of CVA, right frontal Memory impairment over the last 10 years possibly related to normal pressure hydrocephalus COPD Chronic pain, back and neck, pain pump Chronic liver disease, history of hepatitis C, cirrhosis Chronic thrombocytopenia Diabetes mellitus II Hypertension Former nicotine dependence Hospital course:This is a 63-year-old gentleman this is a 63-year-old gentleman admitted with sacral pressure ulcer, stage II,near his pain pump, improving on IV antibiotics of Zosyn as per infectious disease. Afebrile, Tmax 99 ,normal WBC, procalcitonin 0.11, urine culture reported no growth after 18 hours. Preliminary blood culture reported no growth after 72 hours sensorium significantly improved. Continues on nebulized bronchodilators, Symbicort, IV steroids, with blood sugars elevated in the 250s to 270s. denies chest pain, palpitations or shortness of breath. O2 sats in the 90s on room air. Maintained on Vimpat, no seizure activity reported. Wound care as per wound care team. Transitioned to oral steroids, continues on IV antibiotics of Zosyn as per infectious disease, afebrile, blood and urine cultures reporting no growth. Denies chest pain, palpitations or shortness of breath. Maintaining O2 sats in the 90s on room air. Vital signs stable. Continues on Vimpat with no breakthrough seizures reported. Significant clinical improvement. Patient will be discharged home today with [facility] care in a stable condition with guarded prognosis, pending final DC recommendations and clearance per ID and pulmonary. The impression and plan of care has been dictated as directed. : I performed a history and examination of this patient, discussed the same with the dictator. I agree with the dictator's note ,documented as a scribe. Any additional findings or plans will be noted. Patient Condition at Discharge: Stable Plan - Discharge Summary Discharge Rx Participant: Yes New Discharge Prescriptions: New predniSONE 10 mg PO DIRECTED #30 tab Amoxic-Pot Clav 875-125Mg [Augmentin 875-125] 1 tab PO BID 7 Days #14 tab Continue Albuterol Sulfate [Proair Hfa] 2 puff INHALATION RT-QID PRN PRN Reason: Shortness Of Breath Ferrous Sulfate [Iron (65 MG Elemental)] 325 mg PO DAILY Primidone [Mysoline] 50 mg PO HS Acetaminophen Tab [Tylenol] 325 mg PO Q6HR PRN tab PRN Reason: Fever And/ Or Pain Lacosamide [Vimpat] 200 mg PO BID #6 tab amLODIPine [Norvasc] 2.5 mg PO BID Budesonide-Formot 160-4.5 Mcg [Symbicort 160-4.5 Mcg Inhaler] 2 puff INHALATION RT-BID #1 each Insulin Lispro [humaLOG Kwikpen] See Protocol SQ ACHS Clopidogrel [Plavix] 75 mg PO HS Escitalopram [Lexapro] 20 mg PO HS Rosuvastatin Calcium [Crestor] 40 mg PO HS Aspirin EC [Ecotrin Low Dose] 81 mg PO DAILY Multivitamins, Thera [Multivitamin (formulary)] 1 tab PO DAILY Insulin Detemir [Levemir Flexpen] 48 units SQ DAILY Lactulose [Cephulac] 20 gm PO TID Ipratropium-Albuterol Nebulize [Duoneb 0.5 mg-3 mg/3 ml Soln] 3 ml INHALATION RT-QID PRN #120 each PRN Reason: Shortness Of Breath Discharge Medication List Albuterol Sulfate [Proair Hfa] 2 puff INHALATION RT-QID PRN 10/22/20 [History] Ferrous Sulfate [Iron (65 MG Elemental)] 325 mg PO DAILY 12/10/20 [History] Clopidogrel [Plavix] 75 mg PO HS 06/30/21 [History] Primidone [Mysoline] 50 mg PO HS 06/30/21 [History] Escitalopram [Lexapro] 20 mg PO HS 02/23/23 [History] Rosuvastatin Calcium [Crestor] 40 mg PO HS 03/14/23 [History] Acetaminophen Tab [Tylenol] 325 mg PO Q6HR PRN tab 03/16/23 [Rx] Lacosamide [Vimpat] 200 mg PO BID #6 tab 03/16/23 [Rx] Aspirin EC [Ecotrin Low Dose] 81 mg PO DAILY 05/22/23 [History] Multivitamins, Thera [Multivitamin (formulary)] 1 tab PO DAILY 05/22/23 [History] Insulin Detemir [Levemir Flexpen] 48 units SQ DAILY 06/15/23 [History] Lactulose [Cephulac] 20 gm PO TID 09/08/23 [History] amLODIPine [Norvasc] 2.5 mg PO BID 09/08/23 [History] Budesonide-Formot 160-4.5 Mcg [Symbicort 160-4.5 Mcg Inhaler] 2 puff INHALATION RT-BID #1 each 09/10/23 [Rx] Ipratropium-Albuterol Nebulize [Duoneb 0.5 mg-3 mg/3 ml Soln] 3 ml INHALATION RT-QID PRN #120 each 09/10/23 [Rx] Insulin Lispro [humaLOG Kwikpen] See Protocol SQ ACHS 10/12/23 [History] Amoxic-Pot Clav 875-125Mg [Augmentin 875-125] 1 tab PO BID 7 Days #14 tab 10/20/23 [Rx] predniSONE 10 mg PO DIRECTED #30 tab 10/20/23 [Rx] Follow up Appointment(s)/Referral(s): Dmitriy Liu MD [Primary Care Provider] - 10/22/23 1:00 pm (Appointment at the [place] location.) Keke Bravo NPC [Nurse Practitioner] - 11/02/23 9:15 am () [facility], [NON-STAFF] - 1 Week Patient Instructions/Handouts: Altered Mental Status (GEN), Hypoxia (ED) Activity/Diet/Wound Care/Special Instructions: Wound care :apply honey gel to the ulceration zinc barrier cream to excoriation a border foam. Change Wednesday. Turn patient to every 2 hours. Utilize air-filled cushion while sitting. advanced wound care at the wound care center-arrange prior to discharge. Discharge Disposition: HOME WITH HOME HEALTH SERVICES
== END 2023-10-20 16:55 | disposition home health service (06) | DRG 58 ==
LOC: EC 13:55 → 6NMEDSUR 19:56 → OBSVTOIN 19:56 → 6NMEDSUR 20:31 → 1SOBS 10-13 02:06 → 5NMEDONC 10-13 15:49 → 2SICU 10-16 03:11 → 5NMEDONC 10-16 18:19
PROVIDERS: ADMIT Family Medicine; ATTEND Family Medicine
DX: G91.2 (Idiopathic) normal pressure hydrocephalus (principal); J96.21 Acute and chronic respiratory failure with hypoxia; G92.8 Other toxic encephalopathy; E11.622 Type 2 diabetes mellitus with other skin ulcer; E78.5 Hyperlipidemia, unspecified; F02.83 Dementia in other diseases classified elsewhere, unspecified severity, with mood disturbance; F02.84 Dementia in other diseases classified elsewhere, unspecified severity, with anxiety; G89.29 Other chronic pain; I10 Essential (primary) hypertension; Z87.891 Personal history of nicotine dependence; G25.0 Essential tremor; G30.9 Alzheimer's disease, unspecified; G93.89 Other specified disorders of brain; I25.2 Old myocardial infarction; J18.9 Pneumonia, unspecified organism; J20.9 Acute bronchitis, unspecified; J44.0 Chronic obstructive pulmonary disease with (acute) lower respiratory infection; J44.1 Chronic obstructive pulmonary disease with (acute) exacerbation; G40.909 Epilepsy, unspecified, not intractable, without status epilepticus; L98.419 Non-pressure chronic ulcer of buttock with unspecified severity; K74.60 Unspecified cirrhosis of liver; Z99.81 Dependence on supplemental oxygen; L03.317 Cellulitis of buttock; E11.628 Type 2 diabetes mellitus with other skin complications; L89.152 Pressure ulcer of sacral region, stage 2; Z20.822 Contact with and (suspected) exposure to COVID-19; M62.562 Muscle wasting and atrophy, not elsewhere classified, left lower leg; D75.89 Other specified diseases of blood and blood-forming organs; K59.00 Constipation, unspecified; N42.9 Disorder of prostate, unspecified; M62.561 Muscle wasting and atrophy, not elsewhere classified, right lower leg; I25.10 Atherosclerotic heart disease of native coronary artery without angina pectoris; K44.9 Diaphragmatic hernia without obstruction or gangrene; K76.9 Liver disease, unspecified; L98.499 Non-pressure chronic ulcer of skin of other sites with unspecified severity; Z79.4 Long term (current) use of insulin; Z79.51 Long term (current) use of inhaled steroids; Z79.82 Long term (current) use of aspirin; Z79.899 Other long term (current) drug therapy; Z86.73 Personal history of transient ischemic attack (TIA), and cerebral infarction without residual deficits; Z87.11 Personal history of peptic ulcer disease; Z99.3 Dependence on wheelchair; Z96.89 Presence of other specified functional implants; Z28.21 Immunization not carried out because of patient refusal; Z71.3 Dietary counseling and surveillance; Z86.19 Personal history of other infectious and parasitic diseases
CPT/HCPCS: 36415; 36600; 70450; 71045; 71046; 80048; 80053; 81001; 81003; 82140; 82607; 82746; 82805; 83605; 83735; 83880; 83921; 84145; 84484; 85025; 85027; 85379; 85610; 85730; 86140; 87040; 87086; 87636; 93005; 94640; 94760; 99285

== ENCOUNTER 2023-11-22 20:20 | Inpatient (IN) | payer OTHER ==
--- NOTE | 2023-11-22 21:35 | XR ---
EXAMINATION TYPE: XR chest 2V DATE OF EXAM: 11/22/2023 COMPARISON: 10/15/2023 HISTORY: Difficulty breathing TECHNIQUE: Frontal and lateral views of the chest are obtained. FINDINGS: There is no focal air space opacity, pleural effusion, or pneumothorax seen. The cardiac silhouette size is within normal limits. The osseous structures are intact. IMPRESSION: No acute cardiopulmonary process.
[2023-11-22 22:04] LABS: Basophils % (A) 1 %; Eosinophils # (A) 0.2 k/uL (0-0.7); Eosinophils % (A) 4 %; HCT 36.4 % (39.0-53.0); HGB 12.2 gm/dL (13.0-17.5); Lymphocytes # (A) 1.5 k/uL (1.0-4.8); Lymphocytes % (A) 30 %; MCH 34.8 pg (25.0-35.0); MCHC 33.6 g/dL (31.0-37.0); MCV 103.6 fL (80.0-100.0); Macrocytosis Slight; Mean Platelet Volume 8.6; Monocytes # (A) 0.3 k/uL (0-1.0); Monocytes % (A) 6 %; Neutrophils # (A) 2.8 k/uL (1.3-7.7); Neutrophils % (A) 56 %; Platelet Count 105 k/uL (150-450); RBC 3.51 m/uL (4.30-5.90); RDW 13.6 % (11.5-15.5); WBC 4.9 k/uL (3.8-10.6)
--- NOTE | 2023-11-22 22:27 | ED ---
General Adult HPI - General Chief complaint: Shortness of Breath Stated complaint: Difficulty Breathing Time Seen by Provider: 11/22/23 20:30 Source: patient, EMS, RN notes reviewed, old records reviewed Mode of arrival: EMS Limitations: physical limitation - History of Present Illness Initial comments: Is a 63-year-old male with past medical history remarkable for COPD not usually on oxygen at home presents emergency department with COPD exacerbation. Has been having increased shortness of breath since last . Has chronic yellow mucus production. Denies any known fevers. Denies chest pain. Presents for further evaluation at this time. - Related Data Home Medications Medication Instructions Recorded Confirmed Albuterol Sulfate [Proair Hfa] 2 puff INHALATION RT-QID PRN 10/22/20 10/12/23 Ferrous Sulfate [Iron (65 MG 325 mg PO DAILY 12/10/20 10/12/23 Elemental)] Clopidogrel [Plavix] 75 mg PO HS 06/30/21 10/12/23 Primidone [Mysoline] 50 mg PO HS 06/30/21 10/12/23 Escitalopram [Lexapro] 20 mg PO HS 02/23/23 10/12/23 Rosuvastatin Calcium [Crestor] 40 mg PO HS 03/14/23 10/12/23 Aspirin EC [Ecotrin Low Dose] 81 mg PO DAILY 05/22/23 10/12/23 Multivitamins, Thera [Multivitamin 1 tab PO DAILY 05/22/23 10/12/23 (formulary)] Insulin Detemir [Levemir Flexpen] 48 units SQ DAILY 06/15/23 10/12/23 Lactulose [Cephulac] 20 gm PO TID 09/08/23 10/12/23 amLODIPine [Norvasc] 2.5 mg PO BID 09/08/23 10/12/23 Insulin Lispro [humaLOG Kwikpen] See Protocol SQ ACHS 10/12/23 10/12/23 Previous Rx's Medication Instructions Recorded Acetaminophen Tab [Tylenol] 325 mg PO Q6HR PRN tab 03/16/23 Lacosamide [Vimpat] 200 mg PO BID #6 tab 03/16/23 Budesonide-Formot 160-4.5 Mcg 2 puff INHALATION RT-BID #1 each 09/10/23 [Symbicort 160-4.5 Mcg Inhaler] Ipratropium-Albuterol Nebulize 3 ml INHALATION RT-QID PRN #120 09/10/23 [Duoneb 0.5 mg-3 mg/3 ml Soln] each Amoxic-Pot Clav 875-125Mg 1 tab PO BID 7 Days #14 tab 10/20/23 [Augmentin 875-125] predniSONE 10 mg PO DIRECTED #30 tab 10/20/23 Allergies Allergy/AdvReac Type Severity Reaction Status Date / Time morphine AdvReac Nausea & Verified 11/22/23 20:41 Vomiting Review of Systems ROS Statement: Those systems with pertinent positive or pertinent negative responses have been documented in the HPI. Review of Systems: CONST: Denies fever EYES: Denies blurry vision ENT: Denies nasal congestion C/V: Denies Chest pain RESP: Endorses shortness of breath, cough GI: Denies abdominal pain : Denies dysuria SKIN: Denies rash. MSK: Denies joint pain. NEURO: Denies headache ROS Other: All systems not noted in ROS Statement are negative. Past Medical History Past Medical History: COPD, CVA/TIA, Diabetes Mellitus, Hyperlipidemia, Hypertension, Memory Impairment, Myocardial Infarction (VT), Prostate Disorder, Seizure Disorder, Skin Disorder Additional Past Medical History / Comment(s): duodenal ulcer, pain and numbness cyrus legs and feet,pain pump in back, anemia. TIA X3, HEPATITIS C PAST HISTORY, LAST SEIZURE 2012,hiatal hernia Last Myocardial Infarction Date:: POSSIBLE [place] 2012 History of Any Multi-Drug Resistant Organisms: None Reported Past Surgical History: Appendectomy, Back Surgery, Heart Catheterization, Orthopedic Surgery Additional Past Surgical History / Comment(s): titanium lyn in lt leg, skin graph to rt 1st and middle finger, lt eardum replaced, cyrus. foot surgery to arch, cataract surgery bilateral with implant,skin graft left leg Past Anesthesia/Blood Transfusion Reactions: No Reported Reaction Past Psychological History: Anxiety, Depression Smoking Status: Former smoker Past Alcohol Use History: None Reported Past Drug Use History: None Reported - Past Family History Mother Family Medical History: Diabetes Mellitus, Pulmonary Embolus Father Additional Family Medical History / Comment(s): Father had pain problems/h allucinations. He committed suicide. General Exam - General Exam Comments Initial Comments: General: Appears in no acute distress. HEAD: Normal with no signs of head trauma. EYES: PERRLA, EOMI, conjunctiva normal, no discharge. ENT: Hearing grossly intact, normal oropharynx. RESPIRATORY: Diffuse end expiratory wheezing. Saturating 93% on 2 L nasal cannula oxygen. No significant increased work of breathing at this time. C/V: Regular rate and rhythm. S1 and S2 auscultated, peripheral pulses 2+ and intact throughout ABD: Abd is soft, nontender, nondistended EXT: Normal range of motion, no obvious deformity SKIN: No rashes or lesions observed on exposed skin. NEURO: Alert and oriented x 4. No focal deficits. Limitations: physical limitation Course Vital Signs 11/22/23 11/22/23 11/22/23 20:34 22:53 23:43 Temperature 99 F Pulse Rate 68 62 57 L Respiratory 20 22 Rate Blood Pressure 142/72 133/76 O2 Sat by Pulse 93 L 96 Oximetry 11/23/23 00:08 Temperature Pulse Rate 63 Respiratory Rate Blood Pressure O2 Sat by Pulse Oximetry Medical Decision Making - Medical Decision Making Was pt. sent in by a medical professional or institution (Dr. PA, COMMUNICATIONS STRATEGIST, urgent care, hospital, or residential...) When possible be specific @ -No Did you speak to anyone other than the patient for history (EMS, parent, family, police, friend...)? What history was obtained from this source @ -No Did you review nursing and triage notes (agree or disagree)? Why? @ -I reviewed and agree with nursing and triage notes Were old charts reviewed (outside hosp., previous admission, EMS record, old EKG, old radiological studies, urgent care reports/EKG's, residential records)? Report findings @ -Old charts reviewed including from October 12, 2023 when patient was last admitted for COPD and altered mentation. Reviewed EKG from that time as well. Did take her an EKG which shows no obvious changes. Differential Diagnosis (chest pain, altered mental status, abdominal pain women, abdominal pain men, vaginal bleeding, weakness, fever, dyspnea, syncope, headache, dizziness, GI bleed, back pain, seizure, CVA, palpatations, mental health, musculoskeletal)? @ -Differential Dyspnea: Coronary syndrome, arrhythmia, tamponade, asthma, COPD, pulmonary embolism, pneumonia, pneumothorax, pulmonary effusion, anaphylaxis, diabetic ketoacidosis, flailed chest, pulmonary contusion, diaphragmatic rupture, anemia, neuromuscular, this is not meant to be an all-inclusive list. EKG interpreted by me (3pts min.). @ -As above X-rays interpreted by me (1pt min.). @ -Chest x-ray reveals no obvious acute cardiopulmonary process. CT interpreted by me (1pt min.). @ -None done U/S interpreted by me (1pt. min.). @ -None done What testing was considered but not performed or refused? (CT, X-rays, U/S, labs)? Why? @ -None What meds were considered but not given or refused? Why? @ -None Did you discuss the management of the patient with other professionals (professionals i.e. , PA, COMMUNICATIONS STRATEGIST, lab, RT, psych nurse, social work nurse, mail processing machine operator, teacher, attendance officer, director case management)? Give summary @ -Pulmonology consulted. I spoke with Dr. Liu who accepted the admission. Was smoking cessation discussed for >3mins.? @ -No Was critical care preformed (if so, how long)? @ -yes, 31 minutes Were there social determinants of health that impacted care today? How? (Homelessness, low income, unemployed, alcoholism, drug addiction, tra nsportation, low edu. Level, literacy, decrease access to med. care, alf, rehab)? @ -No Was there de-escalation of care discussed even if they declined (Discuss DNR or withdrawal of care, Hospice)? DNR status @ -No What co-morbidities impacted this encounter? (DM, HTN, Smoking, COPD, CAD, Cancer, CVA, ARF, Chemo, Hep., AIDS, mental health diagnosis, sleep apnea, morbid obesity)? @ -COPD Was patient admitted / discharged? Hospital course, mention meds given and route, prescriptions, significant lab abnormalities, going to OR and other pertinent info. @ -Patient presents for shortness of breath that is worsening. Seems to be COPD. Has chronic productive cough which does not seem to be changed, may be some increased production. Requiring 2 L nasal cannula at this time but has significant end expiratory wheezing. We will provide breathing treatments, IV steroids, IV magnesium, IV fluids. Will obtain basic labs as well as viral swabs and chest x-ray and screening EKG. Patient was in agreement this plan. Vital signs within acceptable limits other than the mild hypoxia. EKG shows no signs of acute ischemia. Chest x-ray shows no obvious acute process. Labs are within acceptable limits as well. At this time, patient is still significantly wheezy. Oxygenation seems to be i mproved and ranges anywhere from 89 to 91% on room air when I am at bedside. On 2 L nasal cannula he ranges from 92 to 96%. Discussed with patient's as well as patient that he would like to admitted to the hospital and he was in agreement this plan. Will continue with breathing treatments, steroids, and patient will be empirically started on azithromycin for tracheobronchitis. Patient was in agreement this plan. Pulmonology consulted. I spoke with Dr. Liu who accepted the admission. Undiagnosed new problem with uncertain prognosis? @ -No Drug Therapy requiring intensive monitoring for toxicity (Heparin, Nitro, Insulin, Cardizem)? @ -No Were any procedures done? @ -No Diagnosis/symptom? @ -COPD, hypoxic respiratory failure, tracheobronchitis Acute, or Chronic, or Acute on Chronic? @ -Acute on chronic Uncomplicated (without systemic symptoms) or Complicated (systemic symptoms)? @ -Complicated Side effects of treatment? @ -None Exacerbation, Progression, or Severe Exacerbation] @ -No Poses a threat to life or bodily function? @ -Yes - Lab Data Result diagrams: 11/22/23 20:36 11/22/23 23:30 Lab Results 11/22/23 11/22/23 11/22/23 Range/Units 20:36 20:36 23:30 WBC 4.9 (3.8-10.6) k/uL RBC 3.51 L (4.30-5.90) m/uL Hgb 12.2 L (13.0-17.5) gm/dL Hct 36.4 L (39.0-53.0) % MCV 103.6 H (80.0-100.0) fL MCH 34.8 (25.0-35.0) pg MCHC 33.6 (31.0-37.0) g/dL RDW 13.6 (11.5-15.5) % Plt Count 105 L (150-450) k/uL MPV 8.6 Neutrophils % 56 % Lymphocytes % 30 % Monocytes % 6 % Eosinophils % 4 % Basophils % 1 % Neutrophils # 2.8 (1.3-7.7) k/uL Lymphocytes # 1.5 (1.0-4.8) k/uL Monocytes # 0.3 (0-1.0) k/uL Eosinophils # 0.2 (0-0.7) k/uL Basophils # 0.0 (0-0.2) k/uL Macrocytosis Slight Sodium 140 (137-145) mmol/L Potassium 3.9 (3.5-5.1) mmol/L Chloride 106 (98-107) mmol/L Carbon Dioxide 28 (22-30) mmol/L Anion Gap 6 mmol/L BUN 19 (9-20) mg/dL Creatinine 0.94 (0.66-1.25) mg/dL Est GFR (CKD-EPI)AfAm >90 (>60 ml/min/1.73 sqM) Est GFR (CKD-EPI)NonAf 87 (>60 ml/min/1.73 sqM) Glucose 155 H (74-99) mg/dL Calcium 9.1 (8.4-10.2) mg/dL Magnesium 2.2 (1.6-2.3) mg/dL Total Bilirubin 0.4 (0.2-1.3) mg/dL AST 24 (17-59) U/L ALT 15 (4-49) U/L Alkaline Phosphatase 54 (38-126) U/L Total Protein 6.9 (6.3-8.2) g/dL Albumin 4.2 (3.5-5.0) g/dL Influenza Type A (PCR) Not Detected (Not Detectd) Influenza Type B (PCR) Not Detected (Not Detectd) RSV (PCR) Not Detected (Not Detectd) SARS-CoV-2 (PCR) Not Detected (Not Detectd) - EKG Data -: EKG Interpreted by Me EKG Comments: 12-lead Electrocardiogram Interpretation Note EKG was reviewed and interpreted by myself. 12-lead ECG performed at 2233 is interpreted by me as revealing normal sinus rhythm at a rate of 60 beats per minute. Right axis deviation. RI interval is 134 ms, QRS durations 102 ms, QTc is 447 ms.. There were no ST or T wave abnormalities to suggest myocardial ischemia or injury. R wave progression across the precordium was satisfactory. By my interpretation this EKG is non-diagnostic for acute ischemia. Critical Care Time Critical Care Time: Yes Total Critical Care Time: 31 Disposition Clinical Impression: Tracheobronchitis, COPD (chronic obstructive pulmonary disease), Hypoxic respiratory failure Disposition: ADMITTED IP TO THIS HOSP Condition: Stable Referrals: Dmitriy Liu MD [Primary Care Provider] - 1-2 days Time of Disposition: 00:18
[2023-11-22] MEDS: methylPREDNISolone SOD SUCCI 125 MG/2 ML VIAL IV STA (22:52)
[2023-11-22] MEDS: SODIUM CHLORIDE 0.9% 1,000 ML IV STA (22:52)
[2023-11-22] MEDS: MAGNESIUM SULFATE-D5W PMX 1 GM in DEXTROSE/WATER 1 100ML.BAG IVPB STA (22:52)
[2023-11-22] MEDS: IPRATROPIUM-ALBUTEROL 3 ML NEB INHALATION STA ×2 (23:42)
[2023-11-23 00:09] LABS: ALT 15 U/L (4-49); AST 24 U/L (17-59); African American GFR (CKD) >90 (>60 ml/min/1.73 sqM); Albumin 4.2 g/dL (3.5-5.0); Alkaline Phosphatase 54 U/L (38-126); Anion Gap 6 mmol/L; Blood Urea Nitrogen 19 mg/dL (9-20); Calcium 9.1 mg/dL (8.4-10.2); Carbon Dioxide 28 mmol/L (22-30); Chloride 106 mmol/L (98-107); Glucose 155 mg/dL (74-99); Magnesium 2.2 mg/dL (1.6-2.3); Non-African American GFR(CKD) 87 (>60 ml/min/1.73 sqM); Potassium 3.9 mmol/L (3.5-5.1); Sodium 140 mmol/L (137-145); Total Bilirubin 0.4 mg/dL (0.2-1.3); Total Protein 6.9 g/dL (6.3-8.2)
[2023-11-23] MEDS ORDERED: NALOXONE 0.4 MG/ML 1 ML VIAL IV PRN (00:13)
[2023-11-23] MEDS ORDERED: DEXTROSE 50% SYRINGE 50 ML IVP PRN ×4 (00:20→11:19)
[2023-11-23] MEDS: AZITHROMYCIN 500 MG in SODIUM CHLORIDE 0.9% 250 ML IVPB STA (00:42)
[2023-11-23] MEDS: SODIUM CHLORIDE 0.9% 1,000 ML IV SCH (00:46)
[2023-11-23 01:16] LABS: Glucose,Whole Blood 198 mg/dL (70-110)
--- NOTE | 2023-11-23 03:44 | P.CNPUL ---
History of Present Illness Consult date: 11/23/23 Requesting physician: Nicolas Whitlock Reason for consult: COPD Chief complaint: Progressively worsening shortness of breath History of present illness: Patient is a 64-year-old white male with past medical history significant for chronic obstructive pulmonary disease, former tobacco smoker, CVA/TIA, memory impairment, seizure disorder, hypertension, diabetes mellitus type 2, among other things. Of note, patient did have recent hospitalization 10/12/2023 through 10/20/2023, he did have a brief stay in the intensive care unit. Apparently, the patient was severely altered and had trouble with oxygenation. 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 He ended up being discharged with [facility]. He lives at home with his . He does not walk, and he is wheelchair dependent. Patient returned to the emergency department late last night with a chief complaint of progressively worsening shortness of breath since . He does have history of severe chronic obstructive pulmonary disease. Normally, maintained with a combination of Symbicort inhaler, DuoNebs, and as needed albuterol HFA inhaler. He does have home oxygen available, but does not routinely use it. He is currently resting in bed, on 2 L/min nasal cannula, in no acute distress. He speaks in complete sentences. He has had a productive cough with yellow mucus production. No recorded fevers. Denies chest pain. He is alert but slow to respond. He does have a chronic left buttock wound. Which is shallow with adherent slough, no significant drainage. Chest x-ray did not show any acute cardiopulmonary process. CBC: WBC count of 4.9, hemoglobin 12.2, hematocrit 36.4, platelets 105. CMP unremarkable. Normal saline infusing at 75 MLS per hour. Negative for influenza, RSV, COVID. Vital signs are stable. Review of Systems REVIEW OF SYSTEMS: CONSTITUTIONAL: Denies any recent significant weight loss or weight gain. Denies any fevers. Patient has trouble ambulating and is wheelchair dependent. EYES: Denies change in vision. EARS, NOSE, MOUTH, THROAT: Denies headaches, denies sore throat. CARDIOVASCULAR: Denies chest pain, palpitations or syncopal episodes. RESPIRATORY: See HPI GASTROINTESTINAL: Denies change in appetite, abdominal pain, nausea and vomiting, or diarrhea GENITOURINARY: Denies hematuria, denies infections. MUSKULOSKELETAL: Admits chronic back pain. Lower extremities are chronically weak and atrophied. INTEGUMENTARY: Denies rash, denies eczema. Admits previous skin graft to left lateral calf NEUROLOGICAL: Admits chronic issues with short-term memory. Denies any recent seizure activity. PSYCHIATRIC: Denies anxiety, denies depression. HEMATOLOGIC/LYMPHATIC: Denies anemia, denies enlarged lymph node Past Medical History Past Medical History: COPD, CVA/TIA, Diabetes Mellitus, Hyperlipidemia, Hypertension, Memory Impairment, Myocardial Infarction (CT), Prostate Disorder, Seizure Disorder, Skin Disorder Additional Past Medical History / Comment(s): duodenal ulcer, pain and numbness cyrus legs and feet,pain pump in back, anemia. TIA X3, HEPATITIS C PAST HISTORY, LAST SEIZURE 2012,hiatal hernia Last Myocardial Infarction Date:: POSSIBLE CT 2012 History of Any Multi-Drug Resistant Organisms: None Reported Past Surgical History: Appendectomy, Back Surgery, Heart Catheterization, Orthopedic Surgery Additional Past Surgical History / Comment(s): titanium lyn in lt leg, skin graph to rt 1st and middle finger, lt eardum replaced, cyrus. foot surgery to arch, cataract surgery bilateral with implant,skin graft left leg Past Anesthesia/Blood Transfusion Reactions: No Reported Reaction Past Psychological History: Anxiety, Depression Additional Psychological History / Comment(s): past history of depression Smoking Status: Former smoker Past Alcohol Use History: None Reported Additional Past Alcohol Use History / Comment(s): Pt started smoking in 1974 and is a 1-2ppd smoker Past Drug Use History: None Reported - Past Family History Mother Family Medical History: Diabetes Mellitus, Pulmonary Embolus Father Additional Family Medical History / Comment(s): Father had pain problems/hallucinations. He committed suicide. Medications and Allergies Home Medications Medication Instructions Recorded Confirmed Type Albuterol Sulfate [Proair Hfa] 2 puff INHALATION RT-QID PRN 10/22/20 11/23/23 History Ferrous Sulfate [Iron (65 MG 325 mg PO DAILY 12/10/20 11/23/23 History Elemental)] Clopidogrel [Plavix] 75 mg PO HS 06/30/21 11/23/23 History Primidone [Mysoline] 50 mg PO HS 06/30/21 11/23/23 History Escitalopram [Lexapro] 20 mg PO HS 02/23/23 11/23/23 History Rosuvastatin Calcium [Crestor] 40 mg PO HS 03/14/23 11/23/23 History Acetaminophen Tab [Tylenol] 325 mg PO Q6HR PRN tab 03/16/23 11/23/23 Rx Lacosamide [Vimpat] 200 mg PO BID #6 tab 03/16/23 11/23/23 Rx Aspirin EC [Ecotrin Low Dose] 81 mg PO DAILY 05/22/23 11/23/23 History Multivitamins, Thera [Multivitamin 1 tab PO DAILY 05/22/23 11/23/23 History (formulary)] Insulin Detemir [Levemir Flexpen] 48 units SQ DAILY 06/15/23 11/23/23 History Lactulose [Cephulac] 20 gm PO TID 09/08/23 11/23/23 History amLODIPine [Norvasc] 2.5 mg PO BID 09/08/23 11/23/23 History Budesonide-Formot 160-4.5 Mcg 2 puff INHALATION RT-BID #1 each 09/10/23 11/23/23 Rx [Symbicort 160-4.5 Mcg Inhaler] Ipratropium-Albuterol Nebulize 3 ml INHALATION RT-QID PRN #120 09/10/23 11/23/23 Rx [Duoneb 0.5 mg-3 mg/3 ml Soln] each Insulin Lispro [humaLOG Kwikpen] See Protocol SQ ACHS 10/12/23 11/23/23 History Allergies Allergy/AdvReac Type Severity Reaction Status Date / Time morphine AdvReac Nausea & Verified 11/23/23 08:29 Vomiting Physical Exam Vitals: Vital Signs Temp Pulse Pulse Resp BP BP Pulse Ox 11/23/23 01:30 98.4 F 74 16 163/62 92 L 11/23/23 00:48 98.7 F 62 16 139/69 93 L 11/23/23 00:08 63 11/22/23 23:43 57 L 11/22/23 22:53 62 22 133/76 96 11/22/23 20:34 99 F 68 24 142/72 93 L Intake and Output 11/22/23 11/22/23 11/23/23 14:59 22:59 06:59 Other: Weight 92.986 kg 92.986 kg GENERAL EXAM: Alert, 63-year-old white male, resting in bed, able to turn himself from [id number] but otherwise weak and debilitated, he is fairly co mfortable in no apparent distress. HEAD: Normocephalic and atraumatic EYES: Normal reaction of pupils, equal size. NOSE: Clear with pink turbinates. THROAT: No erythema or exudates. NECK: No masses, no JVD. CHEST: No chest wall deformity. LUNGS: Equal air entry with diffuse bilateral rhonchi and scattered expiratory wheezes. On 2 L/min nasal cannula. No conversational dyspnea or accessory muscle use. CVS: S1 and S2 normal with no audible murmur, regular rhythm. No extra heart sounds ABDOMEN: No hepatosplenomegaly, active bowel sounds, no guarding or rigidity. SPINE: No scoliosis or deformity SKIN: Shallow left buttock ulceration with adherent slough, minimal to no drainage. There is previous left calf skin graft CENTRAL NERVOUS SYSTEM: No focal deficits, tone is normal in all 4 extremities. Slow to respond to questioning. EXTREMITIES: Lower extremities are atrophied and bilaterally weak. There is no peripheral edema, clubbing, or cyanosis. Peripheral pulses are intact. Results - Laboratory Findings CBC and BMP: 11/22/23 20:36 11/22/23 23:30 Abnormal lab findings: Abnormal Labs 11/22/23 11/22/23 11/23/23 20:36 23:30 01:16 RBC 3.51 L Hgb 12.2 L Hct 36.4 L MCV 103.6 H Plt Count 105 L Glucose 155 H POC Glucose (mg/dL) 198 H - Diagnostic Findings Chest x-ray: image reviewed Assessment and Plan Assessment: Suspected acute COPD exacerbation Acute hypoxemic respiratory failure, currently on 2 L/min nasal cannula, secondary to above Superficial left buttock wound History of CVA History of seizure disorder History of memory impairment, normal pressure hydrocephalus was previously considered History of hypertension Diabetes mellitus, insulin-dependent History of hepatitis C and secondary liver cirrhosis Chronic thrombocytopenia Former tobacco smoker Plan: Patient's medications, labs, chest x-ray previously noted Continue supplemental oxygen to maintain oxygen saturation of 90% or greater Continue combination of DuoNebs [id number], Symbicort inhaler, and IV Solu-Medrol Empirically covered on azithromycin in the emergency room Reconsult wound care Heparin for DVT prophylaxis Pepcid for GI prophylaxis We will continue to follow I have personally seen and examined the patient, performed the documentation and the assessment and plan as written. Number of minutes spent on the visit:20 Some pain. Joint evaluation that was done along with the nurse practitioner. This evaluation was done more than 30 minutes. In summary, this is a another hospitalization for this patient with COPD exacerbation. He is currently on 2 days of oxygen by nasal cannula. Chest x-ray is free of any acute pulmonary infiltrate. His cough and bringing thick mucus. He is currently on Zithromax. He is on DuoNeb updrafts. On IV Solu-Medrol. Rest of the comorbidities are all inactive and stable. The white cell count is not elevated. The viral screen was negative. Rest of the electrolytes are all within normal limits. Will monitor the blood sugars and supplement with additional insulin if needed. The patient is on Levemir insulin 30 units along with sliding scale insulin coverage. Reconcile home medications. Will continue to follow. Oxygenation is stable on 2 L. He has become progressively more debilitated and wheelchair- bound with frequent hospitalizations. Time with Patient: Greater than 30
[2023-11-23] MEDS: IPRATROPIUM-ALBUTEROL 3 ML NEB INHALATION SCH (05:37)
[2023-11-23 07:55] LABS: Glucose,Whole Blood 302 mg/dL (70-110)
[2023-11-23] MEDS: SYMBICORT 160-4.5 MCG INHALER INHALATION SCH (08:04)
[2023-11-23] MEDS: methylPREDNISolone SOD SUCCI 40 MG/ML 1 ML VIAL IV SCH (08:11)
[2023-11-23] MEDS: HEPARIN SODIUM,PORCINE 5,000 UNIT/ML 1 ML VIAL SQ SCH (08:11)
[2023-11-23] MEDS: LACOSAMIDE 50 MG TABLET PO SCH (08:12)
[2023-11-23] MEDS: INSULIN ASPART (NovoLOG) 100 UNIT/ML VIAL SQ SCH ×3 (08:12→12:26)
[2023-11-23] MEDS: FAMOTIDINE 20 MG TAB PO SCH (08:12)
[2023-11-23] MEDS: amLODIPine 2.5 MG TAB PO SCH (08:28)
[2023-11-23] MEDS ORDERED: methylPREDNISolone SOD SUCCI 40 MG/ML 1 ML VIAL IV SCH (09:00)
[2023-11-23] MEDS: INSULIN DETEMIR (LEVEMIR) 100 UNIT/ML SYR SQ SCH (09:44)
--- NOTE | 2023-11-23 11:30 | P.HPIM ---
History of Present Illness H&P Date: 11/23/23 Chief Complaint: Progressive dyspnea This is a 63-year-old gentleman past medical history significant for COPD, atelectasis, pneumonia, former nicotine dependence, hypertension, hyperlipidemia, diabetes mellitus, CVA-resides in a wheelchair and multiple other medical issues presented to the ER with progressive dyspnea since , productive cough with yellow sputum. Denies fevers, nausea, vomiting or diarrhea. Denies chest pain, palpitations. No family currently at bedside.Afebrile, Tmax 99, WBC within normal limits, hemoglobin 12.2. Platelets 105(baseline), chest x-ray reported no acute cardiopulmonary process. Electrolytes within normal limits, bicarb 28, BUN 19, creatinine 0.94. Viral studies negative. Nebulized bronchodilators, IV steroids, Symbicort, empiric antibiotics initiated in the ER. Diet adjusted to consistent carbs. No conversational dyspnea, maintaining O2 sats in the low 90s on 1 L nasal cannula. Review of Systems ROS Other: All systems not noted in ROS Statement are negative. ROS Statement: Those systems with pertinent positive or pertinent negative responses have been documented in the HPI. Past Medical History Past Medical History: COPD, CVA/TIA, Diabetes Mellitus, Hyperlipidemia, Hypertension, Memory Impairment, Myocardial Infarction ([place]), Prostate Disorder, Seizure Disorder, Skin Disorder Additional Past Medical History / Comment(s): duodenal ulcer, pain and numbness cyrus legs and feet,pain pump in back, anemia. TIA X3, HEPATITIS C PAST HISTORY, LAST SEIZURE 2012,hiatal hernia Last Myocardial Infarction Date:: POSSIBLE [place] 2012 History of Any Multi-Drug Resistant Organisms: None Reported Past Surgical History: Appendectomy, Back Surgery, Heart Catheterization, Orthopedic Surgery Additional Past Surgical History / Comment(s): titanium lyn in lt leg, skin graph to rt 1st and middle finger, lt eardum replaced, cyrus. foot surgery to arch, cataract surgery bilateral with implant,skin graft left leg Past Anesthesia/Blood Transfusion Reactions: No Reported Reaction Past Psychological History: Anxiety, Depression Additional Psychological History / Comment(s): past history of depression Smoking Status: Former smoker Past Alcohol Use History: None Reported Additional Past Alcohol Use History / Comment(s): Pt started smoking in 1974 and is a 1-2ppd smoker Past Drug Use History: None Reported - Past Family History Mother Family Medical History: Diabetes Mellitus, Pulmonary Embolus Father Additional Family Medical History / Comment(s): Father had pain problems/hallucinations. He committed suicide. Medications and Allergies Home Medications Medication Instructions Recorded Confirmed Type Albuterol Sulfate [Proair Hfa] 2 puff INHALATION RT-QID PRN 10/22/20 11/23/23 History Ferrous Sulfate [Iron (65 MG 325 mg PO DAILY 12/10/20 11/23/23 History Elemental)] Clopidogrel [Plavix] 75 mg PO HS 06/30/21 11/23/23 History Primidone [Mysoline] 50 mg PO HS 06/30/21 11/23/23 History Escitalopram [Lexapro] 20 mg PO HS 02/23/23 11/23/23 History Rosuvastatin Calcium [Crestor] 40 mg PO HS 03/14/23 11/23/23 History Acetaminophen Tab [Tylenol] 325 mg PO Q6HR PRN tab 03/16/23 11/23/23 Rx Lacosamide [Vimpat] 200 mg PO BID #6 tab 03/16/23 11/23/23 Rx Aspirin EC [Ecotrin Low Dose] 81 mg PO DAILY 05/22/23 11/23/23 History Multivitamins, Thera [Multivitamin 1 tab PO DAILY 05/22/23 11/23/23 History (formulary)] Insulin Detemir [Levemir Flexpen] 48 units SQ DAILY 06/15/23 11/23/23 History Lactulose [Cephulac] 20 gm PO TID 09/08/23 11/23/23 History amLODIPine [Norvasc] 2.5 mg PO BID 09/08/23 11/23/23 History Budesonide-Formot 160-4.5 Mcg 2 puff INHALATION RT-BID #1 each 09/10/23 11/23/23 Rx [Symbicort 160-4.5 Mcg Inhaler] Ipratropium-Albuterol Nebulize 3 ml INHALATION RT-QID PRN #120 09/10/23 11/23/23 Rx [Duoneb 0.5 mg-3 mg/3 ml Soln] each Insulin Lispro [humaLOG Kwikpen] See Protocol SQ ACHS 10/12/23 11/23/23 History Allergies Allergy/AdvReac Type Severity Reaction Status Date / Time morphine AdvReac Nausea & Verified 11/23/23 08:29 Vomiting Physical Exam Vitals: Vital Signs Temp Pulse Pulse Resp BP BP Pulse Ox 11/23/23 08:16 72 11/23/23 08:06 93 L 11/23/23 08:04 71 11/23/23 07:48 98.6 F 70 16 160/84 92 L 11/23/23 01:30 98.4 F 74 16 163/62 92 L 11/23/23 00:48 98.7 F 62 16 139/69 93 L 11/23/23 00:08 63 11/22/23 23:43 57 L 11/22/23 22:53 62 22 133/76 96 11/22/23 20:34 99 F 68 24 142/72 93 L Intake and Output 11/22/23 11/23/23 11/23/23 22:59 06:59 14:59 Other: Voiding Method Urinal Urinal Diaper Diaper External Catheter External Catheter # Voids 2 Weight 92.986 kg 92.986 kg General: Alert and oriented 2-3, sitting up in bed, no acute distress, basel ine-slowly converses without dyspnea Head: atraumatic normocephalic. Eyes PERRL, EOMI intact, mucous membranes moist Respiratory: Unlabored, equal air entry, scattered rhonchi, no crackles or wheezes noted Cardiovascular: Regular rate and rhythm Abdominal: Soft, nondistended, nontender,no guarding or rebound. Neuroogic: CN II-XII intact, no focal deficits. Prior [id number]. Skin: warm dry, left buttock chronic wound ulceration, stage II Results CBC & Chem 7: 11/22/23 20:36 11/22/23 23:30 Labs: Abnormal Lab Results - Last 24 Hours (Table) 11/22/23 11/22/23 11/23/23 Range/Units 20:36 23:30 01:16 RBC 3.51 L (4.30-5.90) m/uL Hgb 12.2 L (13.0-17.5) gm/dL Hct 36.4 L (39.0-53.0) % MCV 103.6 H (80.0-100.0) fL Plt Count 105 L (150-450) k/uL Glucose 155 H (74-99) mg/dL POC Glucose (mg/dL) 198 H (70-110) mg/dL 11/23/23 Range/Units 07:53 RBC (4.30-5.90) m/uL Hgb (13.0-17.5) gm/dL Hct (39.0-53.0) % MCV (80.0-100.0) fL Plt Count (150-450) k/uL Glucose (74-99) mg/dL POC Glucose (mg/dL) 302 H (70-110) mg/dL Thrombosis Risk Factor Assmnt - Choose All That Apply Any of the Below Risk Factors Present?: No Other Risk Factors: Yes Each Risk Factor Represents 2 Points: Age 61-74 years Other congenital or acquired thrombophilia - If yes, enter type in comment: No Thrombosis Risk Factor Assessment Total Risk Factor Score: 2 Thrombosis Risk Factor Assessment Level: Low Risk Assessment and Plan Assessment: Acute COPD exacerbation Acute hypoxic respiratory failure secondary to the above left buttock wound, stage II, present on admission Chronic Thrombocytopenia, 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 Empiric antibiotics. procalcitonin ordered. Sputum culture ordered. maintain aggressive pulmonary toileting with nebulized bronchodilators, IV steroids and Symbicort. Premeal insulin with parameters to hold if Accu-Chek less than 120 in addition to NovoLog sliding scale and Levemir insulin. Close monitoring of Accu-Cheks. wound care consult in place. GI and DVT prophylaxis in place with Pepcid and heparin. Local wound care- wound care team consult in place. The impression and plan of care has been dictated as directed. : I performed a history and examination of this patient, discussed the same with the dictator. I agree with the dictator's note ,documented as a scribe. Any additional findings or plans will be noted.
[2023-11-23 12:02] LABS: Glucose,Whole Blood 247 mg/dL (70-110)
--- NOTE | 2023-11-23 12:04 | P.CONS ---
History of Present Illness - Reason for Consult Consult date: 11/23/23 wound care - History of Present Illness This is a 63-year-old patient with past medical history significant for COPD, CVA, diabetes, hyperlipidemia, hypertension, [place], BPH, seizure disorder and a former smoker. Patient is being seen on [address] for nonhealing ulceration to the left buttocks. Patient has this due to stage II pressure ulcer of the left buttocks measuring 1 x 1 x 0.1 cm with significant amount of slough and nonv iable tissue present minimal granulation seen. The wound edges are attached to the wound base. No tunneling or undermining noted.Patient states that the ulceration started about 3 weeks ago. His has been managing it with dressings they have at home. Review Of Systems: Constitutional: No fever, no chills, no night sweats. No weight change. No weakness, fatigue or lethargy. No daytime sleepiness. Integumentary:reports wounds, no lesions. No rash or pruritus. No unusual bruising. No change in hair or nails. Physical exam: General Appearance: Alert, cooperative, no distress, appears stated age. Skin: See HPI all other Skin color, texture, tugor normal, no rashes or lesions. Neurologic: Alert oriented x3 Assessment: 1. Stage II pressure ulcer left buttocks 2. Diabetic ulcer of other site of skin Plan: 1. Apply honey gel and bordered foam to the site. Change Wednesday. Patient would benefit from advanced wound care and wound care setting we be happy to see him in the wound care center. Patient was agreeable with the plan. Thank you for the consultation any questions please contact the wound care center DNP note has been reviewed and discussed with Dr. Heath and the impression and plan of care has been directed as dictated. Past Medical History Past Medical History: COPD, CVA/TIA, Diabetes Mellitus, Hyperlipidemia, Hypertension, Memory Impairment, Myocardial Infarction ([place]), Prostate Disorder, Seizure Disorder, Skin Disorder Additional Past Medical History / Comment(s): duodenal ulcer, pain and numbness cyrus legs and feet,pain pump in back, anemia. TIA X3, HEPATITIS C PAST HISTORY, LAST SEIZURE 2012,hiatal hernia Last Myocardial Infarction Date:: POSSIBLE [place] 2012 History of Any Multi-Drug Resistant Organisms: None Reported Past Surgical History: Appendectomy, Back Surgery, Heart Catheterization, Orthopedic Surgery Additional Past Surgical History / Comment(s): titanium lyn in lt leg, skin graph to rt 1st and middle finger, lt eardum replaced, cyrus. foot surgery to arch, cataract surgery bilateral with implant,skin graft left leg Past Anesthesia/Blood Transfusion Reactions: No Reported Reaction Past Psychological History: Anxiety, Depression Additional Psychological History / Comment(s): past history of depression Smoking Status: Former smoker Past Alcohol Use History: None Reported Additional Past Alcohol Use History / Comment(s): Pt started smoking in 1974 and is a 1-2ppd smoker Past Drug Use History: None Reported - Past Family History Mother Family Medical History: Diabetes Mellitus, Pulmonary Embolus Father Additional Family Medical History / Comment(s): Father had pain problems/hallucinations. He committed suicide. Medications and Allergies Home Medications Medication Instructions Recorded Confirmed Type Albuterol Sulfate [Proair Hfa] 2 puff INHALATION RT-QID PRN 10/22/20 11/23/23 History Ferrous Sulfate [Iron (65 MG 325 mg PO DAILY 12/10/20 11/23/23 History Elemental)] Clopidogrel [Plavix] 75 mg PO HS 06/30/21 11/23/23 History Primidone [Mysoline] 50 mg PO HS 06/30/21 11/23/23 History Escitalopram [Lexapro] 20 mg PO HS 02/23/23 11/23/23 History Rosuvastatin Calcium [Crestor] 40 mg PO HS 03/14/23 11/23/23 History Acetaminophen Tab [Tylenol] 325 mg PO Q6HR PRN tab 03/16/23 11/23/23 Rx Lacosamide [Vimpat] 200 mg PO BID #6 tab 03/16/23 11/23/23 Rx Aspirin EC [Ecotrin Low Dose] 81 mg PO DAILY 05/22/23 11/23/23 History Multivitamins, Thera [Multivitamin 1 tab PO DAILY 05/22/23 11/23/23 History (formulary)] Insulin Detemir [Levemir Flexpen] 48 units SQ DAILY 06/15/23 11/23/23 History Lactulose [Cephulac] 20 gm PO TID 09/08/23 11/23/23 History amLODIPine [Norvasc] 2.5 mg PO BID 09/08/23 11/23/23 History Budesonide-Formot 160-4.5 Mcg 2 puff INHALATION RT-BID #1 each 09/10/23 11/23/23 Rx [Symbicort 160-4.5 Mcg Inhaler] Ipratropium-Albuterol Nebulize 3 ml INHALATION RT-QID PRN #120 09/10/23 11/23/23 Rx [Duoneb 0.5 mg-3 mg/3 ml Soln] each Insulin Lispro [humaLOG Kwikpen] See Protocol SQ ACHS 10/12/23 11/23/23 History Allergies Allergy/AdvReac Type Severity Reaction Status Date / Time morphine AdvReac Nausea & Verified 11/23/23 08:29 Vomiting Physical Exam Vitals: Vital Signs Temp Pulse Pulse Resp BP BP Pulse Ox 11/23/23 11:43 72 11/23/23 11:31 70 11/23/23 08:16 72 11/23/23 08:06 93 L 11/23/23 08:04 71 11/23/23 07:48 98.6 F 70 16 160/84 92 L 11/23/23 01:30 98.4 F 74 16 163/62 92 L 11/23/23 00:48 98.7 F 62 16 139/69 93 L 11/23/23 00:08 63 11/22/23 23:43 57 L 11/22/23 22:53 62 22 133/76 96 11/22/23 20:34 99 F 68 24 142/72 93 L Intake and Output 11/22/23 11/23/23 11/23/23 22:59 06:59 14:59 Other: Voiding Method Urinal Urinal Diaper Diaper External Catheter External Catheter # Voids 2 Weight 92.986 kg 92.986 kg Results CBC & Chem 7: 11/22/23 20:36 11/22/23 23:30 Labs: Abnormal Lab Results - Last 24 Hours (Table) 11/22/23 11/22/23 11/23/23 Range/Units 20:36 23:30 01:16 RBC 3.51 L (4.30-5.90) m/uL Hgb 12.2 L (13.0-17.5) gm/dL Hct 36.4 L (39.0-53.0) % MCV 103.6 H (80.0-100.0) fL Plt Count 105 L (150-450) k/uL Glucose 155 H (74-99) mg/dL POC Glucose (mg/dL) 198 H (70-110) mg/dL 11/23/23 Range/Units 07:53 RBC (4.30-5.90) m/uL Hgb (13.0-17.5) gm/dL Hct (39.0-53.0) % MCV (80.0-100.0) fL Plt Count (150-450) k/uL Glucose (74-99) mg/dL POC Glucose (mg/dL) 302 H (70-110) mg/dL
[2023-11-23] MEDS: NYSTATIN 100,000 UNIT/GM POWD 15 GM TOPICAL SCH (12:26)
[2023-11-23 14:48] VITALS: BMI 34.1
[2023-11-23 17:07] LABS: Glucose,Whole Blood 249 mg/dL (70-110)
[2023-11-23 20:36] LABS: Glucose,Whole Blood 236 mg/dL (70-110)
[2023-11-23] MEDS: ACETAMINOPHEN TAB 325 MG TAB PO PRN (20:47)
[2023-11-23] MEDS: CLOPIDOGREL 75 MG TAB PO SCH (20:48)
[2023-11-23] MEDS: ESCITALOPRAM 20 MG TAB PO SCH (20:48)
[2023-11-23] MEDS: ATORVASTATIN 80 MG TAB PO SCH (20:48)
[2023-11-24 07:36] LABS: Glucose,Whole Blood 290 mg/dL (70-110)
[2023-11-24 08:48] LABS: Basophils # (A) 0.01 X 10*3/uL (0.00-0.10); Basophils % (A) 0.3 %; Eosinophils # (A) 0 X 10*3/uL (0.04-0.35); Eosinophils % (A) 0 %; HCT 36.7 % (39.6-50.0); HGB 12.3 g/dL (13.0-17.0); Lymphocytes # (A) 0.34 X 10*3/uL (0.90-5.00); Lymphocytes % (A) 9.4 %; MCH 34.3 pg (27.0-32.0); MCHC 33.5 g/dL (32.0-37.0); MCV 102.2 FL (80.0-97.0); Mean Platelet Volume 10.7 FL (9.5-12.2); Monocytes # (A) 0.12 X 10*3/uL (0.20-1.00); Monocytes % (A) 3.3 %; NRBC Per 100 WBC 0 X 10*3/uL (0.00-0.01); Neutrophils # (A) 3.14 X 10*3/uL (1.80-7.70); Neutrophils % (A) 86.7 %; Platelet Count 98 X 10*3/uL (140-440); RBC 3.59 X 10*6/uL (4.40-5.60); RDW 13.2 % (11.5-14.5); WBC 3.62 X 10*3/uL (4.50-10.00)
[2023-11-24 09:15] LABS: ALT 13 U/L (10-49); AST 16 U/L (14-35); Albumin 4.5 g/dL (3.8-4.9); Albumin/Globulin Ratio 1.61 Ratio (1.60-3.17); Alkaline Phosphatase 51 U/L (41-126); BUN/Creat Ratio 25.56 Ratio (12.00-20.00); Calcium 9.5 mg/dL (8.7-10.3); Carbon Dioxide 23.6 mmol/L (21.6-31.8); Chloride 101 mmol/L (96-109); Globulin 2.8 g/dL (1.6-3.3); Glucose 293 mg/dL (70-110); Potassium 4.5 mmol/L (3.5-5.5); Sodium 137 mmol/L (135-145); Total Bilirubin 0.3 mg/dL (0.3-1.2); Total Protein 7.3 g/dL (6.2-8.2)
[2023-11-24 12:52] LABS: Glucose,Whole Blood 290 mg/dL (70-110)
--- NOTE | 2023-11-24 13:40 | P.PN ---
Subjective Progress Note Date: 11/24/23 H&P Date: 11/23/23 Chief Complaint: Progressive dyspnea This is a 63-year-old gentleman past medical history significant for COPD, atelectasis, pneumonia, former nicotine dependence, hypertension, hyperlipidemia, diabetes mellitus, CVA-resides in a wheelchair and multiple other medical issues presented to the ER with progressive dyspnea since , productive cough with yellow sputum. Denies fevers, nausea, vomiting or diarrhea. Denies chest pain, palpitations. No family currently at bedside.Afebrile, Tmax 99, WBC within normal limits, hemoglobin 12.2. Platelets 105(baseline), chest x-ray reported no acute cardiopulmonary process. Electroly justin within normal limits, bicarb 28, BUN 19, creatinine 0.94. Viral studies negative. Nebulized bronchodilators, IV steroids, Symbicort, empiric antibiotics initiated in the ER. Diet adjusted to consistent carbs. No conversational dyspnea, maintaining O2 sats in the low 90s on 1 L nasal cannula. 11/24/2023 continues on nebulized bronchodilators, IV steroids and Symbicort. Sitting up in bed, feels better. Denies chest pain, palpitations or shortness of breath. Maintaining O2 sats in the high 90s on 2 L nasal cannula. Sputum culture collected, in progress. Procalcitonin elevated 0.14. afebrile, WBC 3.62. Denies cough. Tolerating diet, denies nausea vomiting or diarrhea. Creatinine 0.9. Hemoglobin A1c 7.7, blood sugars in the 200s. Evaluated by wound care center/team with recommendations noted for local wound care. Objective - Vital Signs Vital signs: Vital Signs Temp 98 F 11/24/23 06:39 Pulse 84 11/24/23 11:39 Resp 18 11/24/23 06:39 BP 160/82 11/24/23 06:39 Pulse Ox 95 11/24/23 08:01 FiO2 Intake & Output 11/23/23 11/24/23 11/24/23 18:59 06:59 18:59 Intake Total 120 Output Total 400 700 Balance -400 -580 Weight 92.986 kg Intake: Oral 120 Output: Urine 400 700 Other: Voiding Method Urinal Urinal Urinal Diaper Diaper Diaper External Catheter External Catheter External Catheter - Exam General: Alert and oriented 2-3, sitting up in bed, no acute distress, slightly converses-baseline Head: atraumatic normocephalic. Eyes PERRL, EOMI intact, mucous membranes moist Respiratory: Unlabored, equal air entry, scattered rhonchi, fine bibasilar expiratory wheezing Cardiovascular: Regular rate and rhythm Abdominal: Soft, nondistended, nontender,no guarding or rebound. Neuroogic: CN II-XII intact, no focal deficits. Prior [id number]. Skin: warm dry, left buttock chronic wound ulceration, stage II - Labs CBC & Chem 7: 11/24/23 04:52 11/24/23 04:52 Labs: Abnormal Lab Results - Last 24 Hours (Table) 11/23/23 11/23/23 11/23/23 Range/Units 09:49 17:06 20:32 WBC (4.50-10.00) X 10*3/uL RBC (4.40-5.60) X 10*6/uL Hgb (13.0-17.0) g/dL Hct (39.6-50.0) % MCV (80.0-97.0) FL MCH (27.0-32.0) pg Plt Count (140-440) X 10*3/uL Lymphocytes # (0.90-5.00) X 10*3/uL Monocytes # (0.20-1.00) X 10*3/uL Eosinophils # (0.04-0.35) X 10*3/uL Anion Gap (4.00-12.00) mmol/L BUN/Creatinine Ratio (12.00-20.00) Ratio Glucose (70-110) mg/dL POC Glucose (mg/dL) 249 H 236 H (70-110) mg/dL Hemoglobin A1c (<=6.0) % Procalcitonin 0.14 H (0.02-0.09) ng/mL 11/24/23 11/24/23 11/24/23 Range/Units 04:52 04:52 04:52 WBC 3.62 L (4.50-10.00) X 10*3/uL RBC 3.59 L (4.40-5.60) X 10*6/uL Hgb 12.3 L (13.0-17.0) g/dL Hct 36.7 L (39.6-50.0) % MCV 102.2 H (80.0-97.0) FL MCH 34.3 H (27.0-32.0) pg Plt Count 98 L (140-440) X 10*3/uL Lymphocytes # 0.34 L (0.90-5.00) X 10*3/uL Monocytes # 0.12 L (0.20-1.00) X 10*3/uL Eosinophils # 0 L (0.04-0.35) X 10*3/uL Anion Gap 12.40 H (4.00-12.00) mmol/L BUN/Creatinine Ratio 25.56 H (12.00-20.00) Ratio Glucose 293 H (70-110) mg/dL POC Glucose (mg/dL) (70-110) mg/dL Hemoglobin A1c 7.7 H (<=6.0) % Procalcitonin (0.02-0.09) ng/mL 11/24/23 Range/Units 07:34 WBC (4.50-10.00) X 10*3/uL RBC (4.40-5.60) X 10*6/uL Hgb (13.0-17.0) g/dL Hct (39.6-50.0) % MCV (80.0-97.0) FL MCH (27.0-32.0) pg Plt Count (140-440) X 10*3/uL Lymphocytes # (0.90-5.00) X 10*3/uL Monocytes # (0.20-1.00) X 10*3/uL Eosinophils # (0.04-0.35) X 10*3/uL Anion Gap (4.00-12.00) mmol/L BUN/Creatinine Ratio (12.00-20.00) Ratio Glucose (70-110) mg/dL POC Glucose (mg/dL) 290 H (70-110) mg/dL Hemoglobin A1c (<=6.0) % Procalcitonin (0.02-0.09) ng/mL Microbiology - Last 24 Hours (Table) 11/23/23 12:14 Gram Stain - Preliminary Sputum Sputum Culture - Preliminary Assessment and Plan Assessment: Acute COPD exacerbation Acute hypoxic respiratory failure secondary to the above left buttock wound, stage II, present on admission Chronic Thrombocytopenia, 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 Procalcitonin mildly elevated, maintain antibiotics. Sputum culture collected, pending. Aggressive pulmonary toileting with nebulized bronchodilators, IV steroids and Symbicort. Premeal and Levemir insulin increased, close monitoring of Accu-Cheks. Local wound care with honey gel and bordered foam dressing changes as recommended per wound care center. The impression and plan of care has been dictated as directed. : I performed a history and examination of this patient, discussed the same with the dictator. I agree with the dictator's note ,documented as a scribe. Any additional findings or plans will be noted.
[2023-11-24] MEDS: INSULIN ASPART (NovoLOG) 100 UNIT/ML VIAL SQ ONE (13:48)
[2023-11-24 16:36] LABS: Glucose,Whole Blood 222 mg/dL (70-110)
[2023-11-24] MEDS: INSULIN ASPART (NovoLOG) 100 UNIT/ML VIAL SQ SCH (17:27)
--- NOTE | 2023-11-24 17:29 | P.PN ---
Subjective Progress Note Date: 11/24/23 Patient is a 64-year-old white male with past medical history significant for c hronic obstructive pulmonary disease, former tobacco smoker, CVA/TIA, memory impairment, seizure disorder, hypertension, diabetes mellitus type 2, among other things. Of note, patient did have recent hospitalization 10/12/2023 through 10/20/2023, he did have a brief stay in the intensive care unit. Apparently, the patient was severely altered and had trouble with oxygenation. 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 He ended up being discharged with [facility]. He lives at home with his . He does not walk, and he is wheelchair dependent. Patient returned to the emergency department late last night with a chief complaint of progressively worsening shortness of breath since . He does have history of severe chronic obstructive pulmonary disease. Normally, maintained with a combination of Symbicort inhaler, DuoNebs, and as needed albuterol HFA inhaler. He does have home oxygen available, but does not routinely use it. He is currently resting in bed, on 2 L/min nasal cannula, in no acute distress. He speaks in complete sentences. He has had a productive cough with yellow mucus production. No recorded fevers. Denies chest pain. He is alert but slow to respond. He does have a chronic left buttock wound. Which is shallow with adherent slough, no significant drainage. Chest x-ray did not show any acute cardiopulmonary process. CBC: WBC count of 4.9, hemoglobin 12.2, hematocrit 36.4, platelets 105. CMP unremarkable. Normal saline infusing at 75 MLS per hour. Negative for influenza, RSV, COVID. Vital signs are stable. 11/24/2023, the patient is feeling better. The patient is less short of breath. Less bronchospastic and wheezy. No new complaints otherwise for now. He is afebrile. White cell count is at 3.6 with a hemoglobin 12.8 and a platelet count of 98. Electrolytes are all stable. Objective - Vital Signs Vital signs: Vital Signs Temp 97.8 F 11/24/23 12:47 Pulse 80 11/24/23 15:33 Resp 16 11/24/23 12:47 BP 159/78 11/24/23 12:47 Pulse Ox 97 11/24/23 12:47 FiO2 Intake & Output 11/23/23 11/24/23 11/24/23 18:59 06:59 18:59 Intake Total 120 Output Total 400 700 Balance -400 -580 Weight 92.986 kg Intake: Oral 120 Output: Urine 400 700 Other: Voiding Method Urinal Urinal Urinal Diaper Diaper Diaper External Catheter External Catheter External Catheter - Exam GENERAL EXAM: Alert, 63-year-old white male, resting in bed, able to turn himself from [id number] but otherwise weak and debilitated, he is fairly comfortable in no apparent distress. HEAD: Normocephalic and atraumatic EYES: Normal reaction of pupils, equal size. NOSE: Clear with pink turbinates. THROAT: No erythema or exudates. NECK: No masses, no JVD. CHEST: No chest wall deformity. LUNGS: Equal air entry with diffuse bilateral rhonchi and scattered expiratory wheezes. On 2 L/min nasal cannula. No conversational dyspnea or accessory muscle use. CVS: S1 and S2 normal with no audible murmur, regular rhythm. No extra heart sounds ABDOMEN: No hepatosplenomegaly, active bowel sounds, no guarding or rigidity. SPINE: No scoliosis or deformity SKIN: Shallow left buttock ulceration with adherent slough, minimal to no drainage. There is previous left calf skin graft CENTRAL NERVOUS SYSTEM: No focal deficits, tone is normal in all 4 extremities. Slow to respond to questioning. EXTREMITIES: Lower extremities are atrophied and bilaterally weak. There is no peripheral edema, clubbing, or cyanosis. Peripheral pulses are intact - Labs CBC & Chem 7: 11/24/23 04:52 11/24/23 04:52 Labs: Abnormal Lab Results - Last 24 Hours (Table) 11/23/23 11/23/23 11/24/23 Range/Units 17:06 20:32 04:52 WBC (4.50-10.00) X 10*3/uL RBC (4.40-5.60) X 10*6/uL Hgb (13.0-17.0) g/dL Hct (39.6-50.0) % MCV (80.0-97.0) FL MCH (27.0-32.0) pg Plt Count (140-440) X 10*3/uL Lymphocytes # (0.90-5.00) X 10*3/uL Monocytes # (0.20-1.00) X 10*3/uL Eosinophils # (0.04-0.35) X 10*3/uL Anion Gap (4.00-12.00) mmol/L BUN/Creatinine Ratio (12.00-20.00) Ratio Glucose (70-110) mg/dL POC Glucose (mg/dL) 249 H 236 H (70-110) mg/dL Hemoglobin A1c 7.7 H (<=6.0) % 11/24/23 11/24/23 11/24/23 Range/Units 04:52 04:52 07:34 WBC 3.62 L (4.50-10.00) X 10*3/uL RBC 3.59 L (4.40-5.60) X 10*6/uL Hgb 12.3 L (13.0-17.0) g/dL Hct 36.7 L (39.6-50.0) % MCV 102.2 H (80.0-97.0) FL MCH 34.3 H (27.0-32.0) pg Plt Count 98 L (140-440) X 10*3/uL Lymphocytes # 0.34 L (0.90-5.00) X 10*3/uL Monocytes # 0.12 L (0.20-1.00) X 10*3/uL Eosinophils # 0 L (0.04-0.35) X 10*3/uL Anion Gap 12.40 H (4.00-12.00) mmol/L BUN/Creatinine Ratio 25.56 H (12.00-20.00) Ratio Glucose 293 H (70-110) mg/dL POC Glucose (mg/dL) 290 H (70-110) mg/dL Hemoglobin A1c (<=6.0) % 11/24/23 Range/Units 12:50 WBC (4.50-10.00) X 10*3/uL RBC (4.40-5.60) X 10*6/uL Hgb (13.0-17.0) g/dL Hct (39.6-50.0) % MCV (80.0-97.0) FL MCH (27.0-32.0) pg Plt Count (140-440) X 10*3/uL Lymphocytes # (0.90-5.00) X 10*3/uL Monocytes # (0.20-1.00) X 10*3/uL Eosinophils # (0.04-0.35) X 10*3/uL Anion Gap (4.00-12.00) mmol/L BUN/Creatinine Ratio (12.00-20.00) Ratio Glucose (70-110) mg/dL POC Glucose (mg/dL) 290 H (70-110) mg/dL Hemoglobin A1c (<=6.0) % Microbiology - Last 24 Hours (Table) 11/23/23 12:14 Gram Stain - Preliminary Sputum Sputum Culture - Preliminary Assessment and Plan Assessment: acute COPD exacerbation Acute hypoxemic respiratory failure, currently on 2 L/min nasal cannula, secondary to above Superficial left buttock wound History of CVA History of seizure disorder History of memory impairment, normal pressure hydrocephalus was previously co nsidered History of hypertension Diabetes mellitus, insulin-dependent History of hepatitis C and secondary liver cirrhosis Chronic thrombocytopenia Former tobacco smoker Plan: Clinically improving Continue supplemental oxygen to maintain oxygen saturation of 90% or greater Continue combination of DuoNebs [id number] Symbicort inhaler IV Solu-Medrol Empirically covered on azithromycin Reconsult wound care Heparin for DVT prophylaxis Pepcid for GI prophylaxis We will continue to follow
[2023-11-24 20:27] LABS: Glucose,Whole Blood 144 mg/dL (70-110)
[2023-11-24] MEDS: AZITHROMYCIN 500 MG TAB PO SCH (21:01)
[2023-11-24] MEDS: INSULIN DETEMIR (LEVEMIR) 100 UNIT/ML SYR SQ SCH (21:04)
[2023-11-25 02:03] LABS: Glucose,Whole Blood 202 mg/dL (70-110)
[2023-11-25 07:27] LABS: Glucose,Whole Blood 258 mg/dL (70-110)
[2023-11-25 11:39] LABS: Glucose,Whole Blood 187 mg/dL (70-110)
[2023-11-25 16:49] LABS: Glucose,Whole Blood 298 mg/dL (70-110)
[2023-11-25 20:38] LABS: Glucose,Whole Blood 177 mg/dL (70-110)
--- NOTE | 2023-11-25 22:34 | P.PN ---
Subjective Progress Note Date: 11/25/23 This is a 63-year-old gentleman past medical history significant for COPD, atelectasis, pneumonia, former nicotine dependence, hypertension, hyperlipidemia, diabetes mellitus, CVA-resides in a wheelchair and multiple other medical issues presented to the ER with progressive dyspnea since , productive cough with yellow sputum. Denies fevers, nausea, vomiting or diarrhea. Denies chest pain, palpitations. No family currently at bedside.Afebrile, Tmax 99, WBC within normal limits, hemoglobin 12.2. Platelets 105(baseline), chest x-ray reported no acute cardiopulmonary process. Electrolytes within normal limits, bicarb 28, BUN 19, creatinine 0.94. Viral studies negative. Nebulized bronchodilators, IV steroids, Symbicort, empiric antibiotics initiated in the ER. Diet adjusted to consistent carbs. No conversational dyspnea, maintaining O2 sats in the low 90s on 1 L nasal cannula. 11/24/2023 continues on nebulized bronchodilators, IV steroids and Symbicort. Sitting up in bed, feels better. Denies chest pain, palpitations or shortness of breath. Maintaining O2 sats in the high 90s on 2 L nasal cannula. Sputum culture collected, in progress. Procalcitonin elevated 0.14. afebrile, WBC 3.62. Denies cough. Tolerating diet, denies nausea vomiting or diarrhea. Creatinine 0.9. Hemoglobin A1c 7.7, blood sugars in the 200s. Evaluated by wound care center/team with recommendations noted for local wound care. 11/25/2023 Patient evaluated today on the medical floor. Having improved shortness of breath. Continues on IV solu-medrol. Patient is continued on symbicort, duoneb scheduled. Today during PT patient did require assistance and was only able to ambulate 8 ft. REVIEW OF SYSTEMS: CONSTITUTIONAL: No fever, no malaise, no fatigue. HEENT: No recent visual problems or hearing problems. Denied any sore throat. CARDIOVASCULAR: No chest pain, orthopnea, PND, no palpitations, no syncope. PULMONARY: No shortness of breath, no cough, no hemoptysis. GASTROINTESTINAL: No diarrhea, no nausea, no vomiting, no abdominal pain. NEUROLOGICAL: No headaches, no weakness, no numbness. PHYSICAL EXAMINATION: GENERAL: The patient is alert and oriented x3, not in any acute distress. Well developed, well nourished. HEENT: Pupils are round and equally reacting to light. EOMI. No scleral icterus. No conjunctival pallor. Normocephalic, atraumatic. No pharyngeal erythema. No thyromegaly. CARDIOVASCULAR: S1 and S2 present. No murmurs, rubs, or gallops. PULMONARY: Chest is clear to auscultation, no wheezing or crackles. ABDOMEN: Soft, nontender, nondistended, normoactive bowel sounds. No palpable organomegaly. MUSCULOSKELETAL: No joint swelling or deformity. EXTREMITIES: No cyanosis, clubbing, or pedal edema. NEUROLOGICAL: Gross neurological examination did not reveal any focal deficits. SKIN: No rashes. Assessment Acute COPD exacerbation Acute hypoxic respiratory failure secondary to the above Left buttock wound, stage II, present on admission Chronic Thrombocytopenia, 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 Diabetes mellitus type 2, hemoglobin A1c 7.7 Steroid induced hyperglycemia Hypertension History of seizure disorder History of CVA with memory impairment Anxiety/depression Former nicotine dependence Chronic pain syndrome GI prophylaxis DVT prophylaxis Full Code Plan Continue IV solumedrol Continues on oral azithromycin procalcitonin level 0.14. Continue accuchecks ACHS, sliding scale and scheduled insulin. Continue levemir. Pulmonary following Patient has been weaned to room air. Local wound care with honey gel and bordered foam dressing changes as recommended per wound care center. PT/OT recommending possible ANTONY and 04/01 care. Follow up with patient regarding safe plan for DC home The impression and plan of care has been dictated by Aby Madsen, Nurse Practitioner as directed. Dr. Christiano MD I have performed a history and physical examination and medical decision making of this patient, discussed the same with the dictator, and agree with the dictators assessment and plan as written, documented as a scribe. Based on total visit time, I have performed more than 50% of this visit. Objective - Vital Signs Vital signs: Vital Signs Temp 99.0 F 11/25/23 19:23 Pulse 79 11/25/23 21:06 Resp 16 11/25/23 20:00 BP 149/66 11/25/23 19:23 Pulse Ox 93 L 11/25/23 19:23 FiO2 Intake & Output 11/25/23 11/25/23 11/26/23 06:59 18:59 06:59 Intake Total 120 900 120 Output Total 2200 800 Balance -2080 100 120 Intake: Intake, IV Titration 900 Amount Sodium Chloride 0.9% 1, 900 000 ml @ 75 mls/hr IV . [id number] [facility] Rx#:[id number] Oral 120 120 Output: Urine 2200 800 Other: Voiding Method Urinal External Catheter External Catheter Diaper External Catheter - Labs CBC & Chem 7: 11/24/23 04:52 11/24/23 04:52 Labs: Abnormal Lab Results - Last 24 Hours (Table) 11/25/23 11/25/23 11/25/23 Range/Units 01:52 07:26 11:38 POC Glucose (mg/dL) 202 H 258 H 187 H (70-110) mg/dL 11/25/23 11/25/23 Range/Units 16:47 20:34 POC Glucose (mg/dL) 298 H 177 H (70-110) mg/dL Microbiology - Last 24 Hours (Table) 11/23/23 12:14 Gram Stain - Final Sputum Sputum Culture - Final Staphylococcus aureus Serratia marcescens Assessment and Plan Time with Patient: Less than 30
--- NOTE | 2023-11-25 23:50 | P.PN ---
Subjective Progress Note Date: 11/25/23 Patient is a 64-year-old white male with past medical history significant for c hronic obstructive pulmonary disease, former tobacco smoker, CVA/TIA, memory impairment, seizure disorder, hypertension, diabetes mellitus type 2, among other things. Of note, patient did have recent hospitalization 10/12/2023 through 10/20/2023, he did have a brief stay in the intensive care unit. Apparently, the patient was severely altered and had trouble with oxygenation. 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 He ended up being discharged with [facility]. He lives at home with his . He does not walk, and he is wheelchair dependent. Patient returned to the emergency department late last night with a chief complaint of progressively worsening shortness of breath since . He does have history of severe chronic obstructive pulmonary disease. Normally, maintained with a combination of Symbicort inhaler, DuoNebs, and as needed albuterol HFA inhaler. He does have home oxygen available, but does not routinely use it. He is currently resting in bed, on 2 L/min nasal cannula, in no acute distress. He speaks in complete sentences. He has had a productive cough with yellow mucus production. No recorded fevers. Denies chest pain. He is alert but slow to respond. He does have a chronic left buttock wound. Which is shallow with adherent slough, no significant drainage. Chest x-ray did not show any acute cardiopulmonary process. CBC: WBC count of 4.9, hemoglobin 12.2, hematocrit 36.4, platelets 105. CMP unremarkable. Normal saline infusing at 75 MLS per hour. Negative for influenza, RSV, COVID. Vital signs are stable. 11/24/2023, the patient is feeling better. The patient is less short of breath. Less bronchospastic and wheezy. No new complaints otherwise for now. He is afebrile. White cell count is at 3.6 with a hemoglobin 12.8 and a platelet count of 98. Electrolytes are all stable. Reports improvement in shortness of breath compared to yesterday. Less bronchospastic and wheezy. 11/25/2023, the patient is being seen for a follow- up. Ambulating short distances with assistance. No other new complaints. No new labs. Remains on bronchodilators with DuoNeb updrafts. Remains on IV Solu- Medrol 40 mg every 8 hours. Currently on room air oxygen with a pulse ox of 93%. No other significant events overnight. Objective - Vital Signs Vital signs: Vital Signs Temp 99.0 F 11/25/23 19:23 Pulse 79 11/25/23 21:06 Resp 16 11/25/23 20:00 BP 149/66 11/25/23 19:23 Pulse Ox 93 L 11/25/23 19:23 FiO2 Intake & Output 11/25/23 11/25/23 11/26/23 06:59 18:59 06:59 Intake Total 120 900 120 Output Total 2200 800 Balance -2080 100 120 Intake: Intake, IV Titration 900 Amount Sodium Chloride 0.9% 1, 900 000 ml @ 75 mls/hr IV . [id number] [facility] Rx#:[id number] Oral 120 120 Output: Urine 2200 800 Other: Voiding Method Urinal External Catheter External Catheter Diaper External Catheter - Exam GENERAL EXAM: Alert, 63-year-old white male, resting in bed, able to turn himself from [id number] but otherwise weak and debilitated, he is fairly comfortable in no apparent distress. HEAD: Normocephalic and atraumatic EYES: Normal reaction of pupils, equal size. NOSE: Clear with pink turbinates. THROAT: No erythema or exudates. NECK: No masses, no JVD. CHEST: No chest wall deformity. LUNGS: Equal air entry with diffuse bilateral rhonchi and scattered expiratory wheezes. On room air oxygen. No conversational dyspnea or accessory muscle use. CVS: S1 and S2 normal with no audible murmur, regular rhythm. No extra heart sounds ABDOMEN: No hepatosplenomegaly, active bowel sounds, no guarding or rigidity. SPINE: No scoliosis or deformity SKIN: Shallow left buttock ulceration with adherent slough, minimal to no drainage. There is previous left calf skin graft CENTRAL NERVOUS SYSTEM: No focal deficits, tone is normal in all 4 extremities. Slow to respond to questioning. EXTREMITIES: Lower extremities are atrophied and bilaterally weak. There is no peripheral edema, clubbing, or cyanosis. Peripheral pulses are intact - Labs CBC & Chem 7: 11/24/23 04:52 11/24/23 04:52 Labs: Abnormal Lab Results - Last 24 Hours (Table) 11/25/23 11/25/23 11/25/23 Range/Units 01:52 07:26 11:38 POC Glucose (mg/dL) 202 H 258 H 187 H (70-110) mg/dL 11/25/23 11/25/23 Range/Units 16:47 20:34 POC Glucose (mg/dL) 298 H 177 H (70-110) mg/dL Microbiology - Last 24 Hours (Table) 11/23/23 12:14 Gram Stain - Final Sputum Sputum Culture - Final Staphylococcus aureus Serratia marcescens Assessment and Plan Assessment: acute COPD exacerbation, improving Acute hypoxemic respiratory failure, currently on room air oxygen, secondary to above Superficial left buttock wound History of CVA History of seizure disorder History of memory impairment, normal pressure hydrocephalus was previously considered History of hypertension Diabetes mellitus, insulin-dependent History of hepatitis C and secondary liver cirrhosis Chronic thrombocytopenia Former tobacco smoker Plan: Clinically improving Continue supplemental oxygen to maintain oxygen saturation of 90% or greater Continue combination of DuoNebs [id number] Symbicort inhaler IV Solu-Medrol 40 mg every 8 hours Empirically covered on azithromycin wound care Heparin for DVT prophylaxis Pepcid for GI prophylaxis We will continue to follow
[2023-11-26 07:05] LABS: Glucose,Whole Blood 217 mg/dL (70-110)
[2023-11-26 08:38] LABS: Basophils # (A) 0 X 10*3/uL (0.00-0.10); Basophils % (A) 0 %; Eosinophils # (A) 0 X 10*3/uL (0.04-0.35); Eosinophils % (A) 0 %; HCT 37.3 % (39.6-50.0); HGB 12.6 g/dL (13.0-17.0); Lymphocytes # (A) 0.53 X 10*3/uL (0.90-5.00); Lymphocytes % (A) 11.8 %; MCH 33.7 pg (27.0-32.0); MCHC 33.8 g/dL (32.0-37.0); MCV 99.7 FL (80.0-97.0); Mean Platelet Volume 10.4 FL (9.5-12.2); Monocytes % (A) 4.5 %; NRBC Per 100 WBC 0 X 10*3/uL (0.00-0.01); Neutrophils # (A) 3.74 X 10*3/uL (1.80-7.70); Neutrophils % (A) 83.3 %; Platelet Count 114 X 10*3/uL (140-440); RBC 3.74 X 10*6/uL (4.40-5.60); RDW 13.1 % (11.5-14.5); WBC 4.49 X 10*3/uL (4.50-10.00)
[2023-11-26 09:18] LABS: BUN/Creat Ratio 30.44 Ratio (12.00-20.00); Blood Urea Nitrogen 27.4 mg/dL (9.0-27.0); Calcium 9.4 mg/dL (8.7-10.3); Carbon Dioxide 24.9 mmol/L (21.6-31.8); Chloride 100 mmol/L (96-109); Glucose 216 mg/dL (70-110); Magnesium 2.2 mg/dL (1.5-2.4); Potassium 4.2 mmol/L (3.5-5.5); Sodium 138 mmol/L (135-145)
[2023-11-26 12:00] LABS: Glucose,Whole Blood 159 mg/dL (70-110)
[2023-11-26] MEDS: lisinopriL 5 MG TAB PO SCH (15:52)
[2023-11-26 17:05] LABS: Glucose,Whole Blood 207 mg/dL (70-110)
[2023-11-26 20:34] LABS: Glucose,Whole Blood 270 mg/dL (70-110)
[2023-11-26] MEDS: PRIMIDONE 50 MG TAB PO SCH (20:50)
--- NOTE | 2023-11-27 00:15 | P.PN ---
Subjective Progress Note Date: 11/26/23 Patient is a 64-year-old white male with past medical history significant for c hronic obstructive pulmonary disease, former tobacco smoker, CVA/TIA, memory impairment, seizure disorder, hypertension, diabetes mellitus type 2, among other things. Of note, patient did have recent hospitalization 10/12/2023 through 10/20/2023, he did have a brief stay in the intensive care unit. Apparently, the patient was severely altered and had trouble with oxygenation. 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 He ended up being discharged with [facility]. He lives at home with his . He does not walk, and he is wheelchair dependent. Patient returned to the emergency department late last night with a chief complaint of progressively worsening shortness of breath since . He does have history of severe chronic obstructive pulmonary disease. Normally, maintained with a combination of Symbicort inhaler, DuoNebs, and as needed albuterol HFA inhaler. He does have home oxygen available, but does not routinely use it. He is currently resting in bed, on 2 L/min nasal cannula, in no acute distress. He speaks in complete sentences. He has had a productive cough with yellow mucus production. No recorded fevers. Denies chest pain. He is alert but slow to respond. He does have a chronic left buttock wound. Which is shallow with adherent slough, no significant drainage. Chest x-ray did not show any acute cardiopulmonary process. CBC: WBC count of 4.9, hemoglobin 12.2, hematocrit 36.4, platelets 105. CMP unremarkable. Normal saline infusing at 75 MLS per hour. Negative for influenza, RSV, COVID. Vital signs are stable. 11/24/2023, the patient is feeling better. The patient is less short of breath. Less bronchospastic and wheezy. No new complaints otherwise for now. He is afebrile. White cell count is at 3.6 with a hemoglobin 12.8 and a platelet count of 98. Electrolytes are all stable.Reports improvement in shortness of breath compared to yesterday. Less bronchospastic and wheezy. 11/25/2023, the patient is being seen for a follow-up. Ambulating short distances with assistance. No other new complaints. No new labs. Remains on bronchodilators with DuoNeb updrafts. Remains on IV Solu-Medrol 40 mg every 8 hours. Currently on room air oxygen with a pulse ox of 93%. No other significant events overnight. On today's evaluation of 11/26/2023, the patient is feeling better less bronchos pastic and wheezy. Not completely back to his baseline. Labs were noted. BUN is 27 with a creatinine of 0.9 and sodium levels at 138, WBC count is 4.4 with a hemoglobin 12.6. The patient remains on bronchodilators. The patient remains on IV Solu-Medrol. He is currently on room air oxygen with a pulse ox of 92%. Objective - Vital Signs Vital signs: Vital Signs Temp 98.5 F 11/26/23 12:51 Pulse 82 11/26/23 16:19 Resp 18 11/26/23 12:51 BP 172/80 11/26/23 12:51 Pulse Ox 94 L 11/26/23 12:51 FiO2 Intake & Output 11/25/23 11/26/23 11/26/23 18:59 06:59 18:59 Intake Total 900 120 Output Total 800 550 500 Balance 100 -430 -500 Intake: Intake, IV Titration 900 Amount Sodium Chloride 0.9% 1, 900 000 ml @ 75 mls/hr IV . [id number] [facility] Rx#:[id number] Oral 120 Output: Urine 800 550 500 Other: Voiding Method External Catheter External Catheter External Catheter - Exam GENERAL EXAM: Alert, 63-year-old white male, resting in bed, able to turn himself from [id number] but otherwise weak and debilitated, he is fairly comfortable in no apparent distress. HEAD: Normocephalic and atraumatic EYES: Normal reaction of pupils, equal size. NOSE: Clear with pink turbinates. THROAT: No erythema or exudates. NECK: No masses, no JVD. CHEST: No chest wall deformity. LUNGS: Equal air entry with diffuse bilateral rhonchi and scattered expiratory wheezes. On room air oxygen. No conversational dyspnea or accessory muscle use. CVS: S1 and S2 normal with no audible murmur, regular rhythm. No extra heart sounds ABDOMEN: No hepatosplenomegaly, active bowel sounds, no guarding or rigidity. SPINE: No scoliosis or deformity SKIN: Shallow left buttock ulceration with adherent slough, minimal to no drainage. There is previous left calf skin graft CENTRAL NERVOUS SYSTEM: No focal deficits, tone is normal in all 4 extremities. Slow to respond to questioning. EXTREMITIES: Lower extremities are atrophied and bilaterally weak. There is no peripheral edema, clubbing, or cyanosis. Peripheral pulses are intact - Labs CBC & Chem 7: 11/26/23 05:27 11/26/23 05:27 Labs: Abnormal Lab Results - Last 24 Hours (Table) 11/25/23 11/26/23 11/26/23 Range/Units 20:34 05:27 05:27 WBC 4.49 L (4.50-10.00) X 10*3/uL RBC 3.74 L (4.40-5.60) X 10*6/uL Hgb 12.6 L (13.0-17.0) g/dL Hct 37.3 L (39.6-50.0) % MCV 99.7 H (80.0-97.0) FL MCH 33.7 H (27.0-32.0) pg Plt Count 114 L (140-440) X 10*3/uL Lymphocytes # 0.53 L (0.90-5.00) X 10*3/uL Eosinophils # 0 L (0.04-0.35) X 10*3/uL Anion Gap 13.10 H (4.00-12.00) mmol/L BUN 27.4 H (9.0-27.0) mg/dL BUN/Creatinine Ratio 30.44 H (12.00-20.00) Ratio Glucose 216 H (70-110) mg/dL POC Glucose (mg/dL) 177 H (70-110) mg/dL 11/26/23 11/26/23 11/26/23 Range/Units 07:04 11:58 17:03 WBC (4.50-10.00) X 10*3/uL RBC (4.40-5.60) X 10*6/uL Hgb (13.0-17.0) g/dL Hct (39.6-50.0) % MCV (80.0-97.0) FL MCH (27.0-32.0) pg Plt Count (140-440) X 10*3/uL Lymphocytes # (0.90-5.00) X 10*3/uL Eosinophils # (0.04-0.35) X 10*3/uL Anion Gap (4.00-12.00) mmol/L BUN (9.0-27.0) mg/dL BUN/Creatinine Ratio (12.00-20.00) Ratio Glucose (70-110) mg/dL POC Glucose (mg/dL) 217 H 159 H 207 H (70-110) mg/dL Assessment and Plan Assessment: acute COPD exacerbation, improving, reports improvement in his cough and congestion and wheeze Acute hypoxemic respiratory failure, currently on room air oxygen, secondary to above Superficial left buttock wound History of CVA History of seizure disorder History of memory impairment, normal pressure hydrocephalus was previously considered History of hypertension Diabetes mellitus, insulin-dependent History of hepatitis C and secondary liver cirrhosis Chronic thrombocytopenia Former tobacco smoker Plan: Clinically improving Continue supplemental oxygen to maintain oxygen saturation of 90% or greater Continue combination of DuoNebs [id number] Symbicort inhaler IV Solu-Medrol 40 mg every 8 hours, transition this patient to a prednisone burst taper as of tomorrow Empirically covered on azithromycin wound care Heparin for DVT prophylaxis Pepcid for GI prophylaxis We will continue to follow
[2023-11-27 07:12] LABS: Glucose,Whole Blood 230 mg/dL (70-110)
--- NOTE | 2023-11-27 07:33 | P.PN ---
Subjective Progress Note Date: 11/26/23 This is a 63-year-old gentleman past medical history significant for COPD, atelectasis, pneumonia, former nicotine dependence, hypertension, hyperlipidemia, diabetes mellitus, CVA-resides in a wheelchair and multiple other medical issues presented to the ER with progressive dyspnea since , productive cough with yellow sputum. Denies fevers, nausea, vomiting or diarrhea. Denies chest pain, palpitations. No family currently at bedside.Afebrile, Tmax 99, WBC within normal limits, hemoglobin 12.2. Platelets 105(baseline), chest x-ray reported no acute cardiopulmonary process. Electrolytes within normal limits, bicarb 28, BUN 19, creatinine 0.94. Viral studies negative. Nebulized bronchodilators, IV steroids, Symbicort, empiric antibiotics initiated in the ER. Diet adjusted to consistent carbs. No conversational dyspnea, maintaining O2 sats in the low 90s on 1 L nasal cannula. 11/24/2023 continues on nebulized bronchodilators, IV steroids and Symbicort. Sitting up in bed, feels better. Denies chest pain, palpitations or shortness of breath. Maintaining O2 sats in the high 90s on 2 L nasal cannula. Sputum culture collected, in progress. Procalcitonin elevated 0.14. afebrile, WBC 3.62. Denies cough. Tolerating diet, denies nausea vomiting or diarrhea. Creatinine 0.9. Hemoglobin A1c 7.7, blood sugars in the 200s. Evaluated by wound care center/team with recommendations noted for local wound care. 11/25/2023 Patient evaluated today on the medical floor. Having improved shortness of breath. Continues on IV solu-medrol. Patient is continued on symbicort, duoneb scheduled. Today during PT patient did require assistance and was only able to ambulate 8 ft. 11/26/2023 Patient sitting up in bed. Reports no acute complaints. He has been evaluated by PT with recommendations for subacute rehab on follow up with the patient him and his have agreed. Blood glucose in the 200s. He continues on IV solumedrol. REVIEW OF SYSTEMS: CONSTITUTIONAL: No fever, no malaise, no fatigue. HEENT: No recent visual problems or hearing problems. Denied any sore throat. CARDIOVASCULAR: No chest pain, orthopnea, PND, no palpitations, no syncope. PULMONARY: No shortness of breath, no cough, no hemoptysis. GASTROINTESTINAL: No diarrhea, no nausea, no vomiting, no abdominal pain. NEUROLOGICAL: No headaches, no weakness, no numbness. PHYSICAL EXAMINATION: GENERAL: The patient is alert and oriented x3, not in any acute distress. Well developed, well nourished. HEENT: Pupils are round and equally reacting to light. EOMI. No scleral icterus. No conjunctival pallor. Normocephalic, atraumatic. No pharyngeal erythema. No thyromegaly. CARDIOVASCULAR: S1 and S2 present. No murmurs, rubs, or gallops. PULMONARY: Chest is clear to auscultation, no wheezing or crackles. ABDOMEN: Soft, nontender, nondistended, normoactive bowel sounds. No palpable organomegaly. MUSCULOSKELETAL: No joint swelling or deformity. EXTREMITIES: No cyanosis, clubbing, or pedal edema. NEUROLOGICAL: Gross neurological examination did not reveal any focal deficits. SKIN: No rashes. Assessment Acute COPD exacerbation Acute hypoxic respiratory failure secondary to the above Left buttock wound, stage II, present on admission Chronic Thrombocytopenia, 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 Diabetes mellitus type 2, hemoglobin A1c 7.7 Steroid induced hyperglycemia Hypertension History of seizure disorder History of CVA with memory impairment Anxiety/depression Former nicotine dependence Chronic pain syndrome GI prophylaxis DVT prophylaxis Full Code Plan Continue IV solumedrol Continues on oral azithromycin procalcitonin level 0.14. Continue accuchecks ACHS, sliding scale and scheduled insulin. Continue levemir. Pulmonary following Patient has been weaned to room air. Local wound care with honey gel and bordered foam dressing changes as recommended per wound care center. Patient was subacute rehab and auth has been started The impression and plan of care has been dictated by Aby Madsen Nurse Practitioner as directed. Dr. Christiano MD I have performed a history and physical examination and medical decision making of this patient, discussed the same with the dictator, and agree with the dictators assessment and plan as written, documented as a scribe. Based on total visit time, I have performed more than 50% of this visit. Objective - Vital Signs Vital signs: Vital Signs Temp 98.5 F 11/26/23 12:51 Pulse 70 11/26/23 12:51 Resp 18 11/26/23 12:51 BP 172/80 11/26/23 12:51 Pulse Ox 94 L 11/26/23 12:51 FiO2 Intake & Output 11/25/23 11/26/23 11/26/23 18:59 06:59 18:59 Intake Total 900 120 Output Total 800 550 500 Balance 100 -430 -500 Intake: Intake, IV Titration 900 Amount Sodium Chloride 0.9% 1, 900 000 ml @ 75 mls/hr IV . [id number] [facility] Rx#:[id number] Oral 120 Output: Urine 800 550 500 Other: Voiding Method External Catheter External Catheter External Catheter - Labs CBC & Chem 7: 11/26/23 05:27 11/26/23 05:27 Labs: Abnormal Lab Results - Last 24 Hours (Table) 11/25/23 11/25/23 11/26/23 Range/Units 16:47 20:34 05:27 WBC 4.49 L (4.50-10.00) X 10*3/uL RBC 3.74 L (4.40-5.60) X 10*6/uL Hgb 12.6 L (13.0-17.0) g/dL Hct 37.3 L (39.6-50.0) % MCV 99.7 H (80.0-97.0) FL MCH 33.7 H (27.0-32.0) pg Plt Count 114 L (140-440) X 10*3/uL Lymphocytes # 0.53 L (0.90-5.00) X 10*3/uL Eosinophils # 0 L (0.04-0.35) X 10*3/uL Anion Gap (4.00-12.00) mmol/L BUN (9.0-27.0) mg/dL BUN/Creatinine Ratio (12.00-20.00) Ratio Glucose (70-110) mg/dL POC Glucose (mg/dL) 298 H 177 H (70-110) mg/dL 11/26/23 11/26/23 11/26/23 Range/Units 05:27 07:04 11:58 WBC (4.50-10.00) X 10*3/uL RBC (4.40-5.60) X 10*6/uL Hgb (13.0-17.0) g/dL Hct (39.6-50.0) % MCV (80.0-97.0) FL MCH (27.0-32.0) pg Plt Count (140-440) X 10*3/uL Lymphocytes # (0.90-5.00) X 10*3/uL Eosinophils # (0.04-0.35) X 10*3/uL Anion Gap 13.10 H (4.00-12.00) mmol/L BUN 27.4 H (9.0-27.0) mg/dL BUN/Creatinine Ratio 30.44 H (12.00-20.00) Ratio Glucose 216 H (70-110) mg/dL POC Glucose (mg/dL) 217 H 159 H (70-110) mg/dL
[2023-11-27] MEDS: FERROUS SULFATE 325 MG TAB PO SCH (07:59)
[2023-11-27] MEDS: MULTIVITAMINS, THERA 1 EACH TAB PO SCH (07:59)
[2023-11-27] MEDS: ASPIRIN 81 MG PO SCH (07:59)
[2023-11-27 12:10] LABS: Glucose,Whole Blood 187 mg/dL (70-110)
--- NOTE | 2023-11-27 15:25 | P.PN ---
Subjective Progress Note Date: 11/27/23 This is a 63-year-old gentleman past medical history significant for COPD, atelectasis, pneumonia, former nicotine dependence, hypertension, hyperlipidemia, diabetes mellitus, CVA-resides in a wheelchair and multiple other medical issues presented to the ER with progressive dyspnea since , productive cough with yellow sputum. Denies fevers, nausea, vomiting or diarrhea. Denies chest pain, palpitations. No family currently at bedside.Afebrile, Tmax 99, WBC within normal limits, hemoglobin 12.2. Platelets 105(baseline), chest x-ray reported no acute cardiopulmonary process. Electrolytes within normal limits, bicarb 28, BUN 19, creatinine 0.94. Viral studies negative. Nebulized bronchodilators, IV steroids, Symbicort, empiric antibiotics initiated in the ER. Diet adjusted to consistent carbs. No conversational dyspnea, maintaining O2 sats in the low 90s on 1 L nasal cannula. 11/24/2023 continues on nebulized bronchodilators, IV steroids and Symbicort. Sitting up in bed, feels better. Denies chest pain, palpitations or shortness of breath. Maintaining O2 sats in the high 90s on 2 L nasal cannula. Sputum culture collected, in progress. Procalcitonin elevated 0.14. afebrile, WBC 3.62. Denies cough. Tolerating diet, denies nausea vomiting or diarrhea. Creatinine 0.9. Hemoglobin A1c 7.7, blood sugars in the 200s. Evaluated by wound care center/team with recommendations noted for local wound care. 11/25/2023 Patient evaluated today on the medical floor. Having improved shortness of breath. Continues on IV solu-medrol. Patient is continued on symbicort, duoneb scheduled. Today during PT patient did require assistance and was only able to ambulate 8 ft. 11/26/2023 Patient sitting up in bed. Reports no acute complaints. He has been evaluated by PT with recommendations for subacute rehab on follow up with the patient him and his have agreed. Blood glucose in the 200s. He continues on IV solumedrol. 11/27/2023 Patient is evaluated today sitting up in the chair. He continues to report improvement in his shortness of breath pulmonary planning on transitioning to oral prednisone today. He continues on Symbicort and scheduled updrafts. Patient and family have decided on discharge to subacute rehab he is currently pending insurance authorization and discharge will likely be on Wednesday. main complaint is that patient has not had a bowel movement in a few days. He will be given lactulose. REVIEW OF SYSTEMS: CONSTITUTIONAL: No fever, no malaise, no fatigue. HEENT: No recent visual problems or hearing problems. Denied any sore throat. CARDIOVASCULAR: No chest pain, orthopnea, PND, no palpitations, no syncope. PULMONARY: No shortness of breath, no cough, no hemoptysis. GASTROINTESTINAL: No diarrhea, no nausea, no vomiting, no abdominal pain. NEUROLOGICAL: No headaches, no weakness, no numbness. PHYSICAL EXAMINATION: GENERAL: The patient is alert and oriented x3, not in any acute distress. Well developed, well nourished. HEENT: Pupils are round and equally reacting to light. EOMI. No scleral icterus. No conjunctival pallor. Normocephalic, atraumatic. No pharyngeal erythema. No thyromegaly. CARDIOVASCULAR: S1 and S2 present. No murmurs, rubs, or gallops. PULMONARY: Chest is clear to auscultation, no wheezing or crackles. ABDOMEN: Soft, nontender, nondistended, normoactive bowel sounds. No palpable organomegaly. MUSCULOSKELETAL: No joint swelling or deformity. EXTREMITIES: No cyanosis, clubbing, or pedal edema. NEUROLOGICAL: Gross neurological examination did not reveal any focal deficits. SKIN: No rashes. Assessment Acute COPD exacerbation Acute hypoxic respiratory failure secondary to the above Left buttock wound, stage II, present on admission Chronic Thrombocytopenia, 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 Diabetes mellitus type 2, hemoglobin A1c 7.7 Steroid induced hyperglycemia Hypertension History of seizure disorder History of CVA with memory impairment Anxiety/depression Former nicotine dependence Chronic pain syndrome GI prophylaxis DVT prophylaxis Full Code Plan Continue IV solumedrol transition to oral prednisone taper on discharge Continues on oral azithromycin procalcitonin level 0.14. Continue accuchecks ACHS, sliding scale and scheduled insulin. Continue levemir. Pulmonary following Patient has been weaned to room air. Local wound care with honey gel and bordered foam dressing changes as recommended per wound care center. Patient was subacute rehab and auth has been started The impression and plan of care has been dictated by Aby Madsen, Nurse Practitioner as directed. Dr. Christiano MD I have performed a history and physical examination and medical decision making of this patient, discussed the same with the dictator, and agree with the dictators assessment and plan as written, documented as a scribe. Based on total visit time, I have performed more than 50% of this visit. Objective - Vital Signs Vital signs: Vital Signs Temp 98.2 F 11/27/23 13:07 Pulse 72 11/27/23 15:20 Resp 18 11/27/23 13:07 BP 152/79 11/27/23 13:07 Pulse Ox 97 11/27/23 13:07 FiO2 21 11/27/23 07:47 Intake & Output 11/26/23 11/27/23 11/27/23 18:59 06:59 18:59 Intake Total 920 Output Total 650 2200 Balance -650 -1280 Intake: Oral 920 Output: Urine 650 2200 Other: Voiding Method External Catheter External Catheter External Catheter - Labs CBC & Chem 7: 11/26/23 05:27 11/26/23 05:27 Labs: Abnormal Lab Results - Last 24 Hours (Table) 11/26/23 11/26/23 11/27/23 Range/Units 17:03 20:19 07:11 POC Glucose (mg/dL) 207 H 270 H 230 H (70-110) mg/dL 11/27/23 Range/Units 12:09 POC Glucose (mg/dL) 187 H (70-110) mg/dL Assessment and Plan Time with Patient: Less than 30
[2023-11-27 17:11] LABS: Glucose,Whole Blood 200 mg/dL (70-110)
[2023-11-27 20:28] LABS: Glucose,Whole Blood 216 mg/dL (70-110)
--- NOTE | 2023-11-27 20:29 | P.PN ---
Subjective Progress Note Date: 11/27/23 Patient is a 64-year-old white male with past medical history significant for c hronic obstructive pulmonary disease, former tobacco smoker, CVA/TIA, memory impairment, seizure disorder, hypertension, diabetes mellitus type 2, among other things. Of note, patient did have recent hospitalization 10/12/2023 through 10/20/2023, he did have a brief stay in the intensive care unit. Apparently, the patient was severely altered and had trouble with oxygenation. 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 He ended up being discharged with [facility]. He lives at home with his . He does not walk, and he is wheelchair dependent. Patient returned to the emergency department late last night with a chief complaint of progressively worsening shortness of breath since . He does have history of severe chronic obstructive pulmonary disease. Normally, maintained with a combination of Symbicort inhaler, DuoNebs, and as needed albuterol HFA inhaler. He does have home oxygen available, but does not routinely use it. He is currently resting in bed, on 2 L/min nasal cannula, in no acute distress. He speaks in complete sentences. He has had a productive cough with yellow mucus production. No recorded fevers. Denies chest pain. He is alert but slow to respond. He does have a chronic left buttock wound. Which is shallow with adherent slough, no significant drainage. Chest x-ray did not show any acute cardiopulmonary process. CBC: WBC count of 4.9, hemoglobin 12.2, hematocrit 36.4, platelets 105. CMP unremarkable. Normal saline infusing at 75 MLS per hour. Negative for influenza, RSV, COVID. Vital signs are stable. 11/24/2023, the patient is feeling better. The patient is less short of breath. Less bronchospastic and wheezy. No new complaints otherwise for now. He is afebrile. White cell count is at 3.6 with a hemoglobin 12.8 and a platelet count of 98. Electrolytes are all stable.Reports improvement in shortness of breath compared to yesterday. Less bronchospastic and wheezy. 11/25/2023, the patient is being seen for a follow-up. Ambulating short distances with assistance. No other new complaints. No new labs. Remains on bronchodilators with DuoNeb updrafts. Remains on IV Solu-Medrol 40 mg every 8 hours. Currently on room air oxygen with a pulse ox of 93%. No other significant events overnight. On today's evaluation of 11/26/2023, the patient is feeling better less bronchos pastic and wheezy. Not completely back to his baseline. Labs were noted. BUN is 27 with a creatinine of 0.9 and sodium levels at 138, WBC count is 4.4 with a hemoglobin 12.6. The patient remains on bronchodilators. The patient remains on IV Solu-Medrol. He is currently on room air oxygen with a pulse ox of 92%. On today's evaluation of 11/27/2023, condition is stable without any complaints. The patient remains on DuoNeb updrafts. Remains on IV Solu-Medrol. Continues to have cough congestion and wheeze. Will continue IV Solu-Medrol for another 24 hours. Objective - Vital Signs Vital signs: Vital Signs Temp 98.4 F 11/27/23 07:13 Pulse 68 11/27/23 11:20 Resp 16 11/27/23 07:13 BP 153/92 11/27/23 07:13 Pulse Ox 94 L 11/27/23 07:47 FiO2 21 11/27/23 07:47 Intake & Output 11/26/23 11/27/23 11/27/23 18:59 06:59 18:59 Intake Total 920 Output Total 650 2200 Balance -650 -1280 Intake: Oral 920 Output: Urine 650 2200 Other: Voiding Method External Catheter External Catheter External Catheter - Exam GENERAL EXAM: Alert, 63-year-old white male, resting in bed, able to turn himself from [id number] but otherwise weak and debilitated, he is fairly comfortable in no apparent distress. HEAD: Normocephalic and atraumatic EYES: Normal reaction of pupils, equal size. NOSE: Clear with pink turbinates. THROAT: No erythema or exudates. NECK: No masses, no JVD. CHEST: No chest wall deformity. LUNGS: Equal air entry with diffuse bilateral rhonchi and scattered expiratory wheezes. On room air oxygen. No conversational dyspnea or accessory muscle use. CVS: S1 and S2 normal with no audible murmur, regular rhythm. No extra heart sounds ABDOMEN: No hepatosplenomegaly, active bowel sounds, no guarding or rigidity. SPINE: No scoliosis or deformity SKIN: Shallow left buttock ulceration with adherent slough, minimal to no drainage. There is previous left calf skin graft CENTRAL NERVOUS SYSTEM: No focal deficits, tone is normal in all 4 extremities. Slow to respond to questioning. EXTREMITIES: Lower extremities are atrophied and bilaterally weak. There is no peripheral edema, clubbing, or cyanosis. Peripheral pulses are intact - Labs CBC & Chem 7: 11/26/23 05:27 11/26/23 05:27 Labs: Abnormal Lab Results - Last 24 Hours (Table) 11/26/23 11/26/23 11/27/23 Range/Units 17:03 20:19 07:11 POC Glucose (mg/dL) 207 H 270 H 230 H (70-110) mg/dL 11/27/23 Range/Units 12:09 POC Glucose (mg/dL) 187 H (70-110) mg/dL Assessment and Plan Assessment: acute COPD exacerbation, improving, reports improvement in his cough and congestion and wheeze Acute hypoxemic respiratory failure, currently on room air oxygen, secondary to above Superficial left buttock wound History of CVA History of seizure disorder History of memory impairment, normal pressure hydrocephalus was previously considered History of hypertension Diabetes mellitus, insulin-dependent History of hepatitis C and secondary liver cirrhosis Chronic thrombocytopenia Former tobacco smoker Plan: Clinically improving, will continue same treatment Continue supplemental oxygen to maintain oxygen saturation of 90% or greater Continue combination of DuoNebs [id number] Symbicort inhaler IV Solu-Medrol 40 mg every 8 hours, for another 24 hours Empirically covered on azithromycin wound care Heparin for DVT prophylaxis Pepcid for GI prophylaxis We will continue to follow
[2023-11-28 06:53] LABS: Glucose,Whole Blood 255 mg/dL (70-110)
[2023-11-28 12:02] LABS: Glucose,Whole Blood 176 mg/dL (70-110)
--- NOTE | 2023-11-28 13:46 | P.PN ---
Subjective Progress Note Date: 11/28/23 Patient is a 64-year-old white male with past medical history significant for c hronic obstructive pulmonary disease, former tobacco smoker, CVA/TIA, memory impairment, seizure disorder, hypertension, diabetes mellitus type 2, among other things. Of note, patient did have recent hospitalization 10/12/2023 through 10/20/2023, he did have a brief stay in the intensive care unit. Apparently, the patient was severely altered and had trouble with oxygenation. 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 He ended up being discharged with [facility]. He lives at home with his . He does not walk, and he is wheelchair dependent. Patient returned to the emergency department late last night with a chief complaint of progressively worsening shortness of breath since . He does have history of severe chronic obstructive pulmonary disease. Normally, maintained with a combination of Symbicort inhaler, DuoNebs, and as needed albuterol HFA inhaler. He does have home oxygen available, but does not routinely use it. He is currently resting in bed, on 2 L/min nasal cannula, in no acute distress. He speaks in complete sentences. He has had a productive cough with yellow mucus production. No recorded fevers. Denies chest pain. He is alert but slow to respond. He does have a chronic left buttock wound. Which is shallow with adherent slough, no significant drainage. Chest x-ray did not show any acute cardiopulmonary process. CBC: WBC count of 4.9, hemoglobin 12.2, hematocrit 36.4, platelets 105. CMP unremarkable. Normal saline infusing at 75 MLS per hour. Negative for influenza, RSV, COVID. Vital signs are stable. 11/24/2023, the patient is feeling better. The patient is less short of breath. Less bronchospastic and wheezy. No new complaints otherwise for now. He is afebrile. White cell count is at 3.6 with a hemoglobin 12.8 and a platelet count of 98. Electrolytes are all stable.Reports improvement in shortness of breath compared to yesterday. Less bronchospastic and wheezy. 11/25/2023, the patient is being seen for a follow-up. Ambulating short distances with assistance. No other new complaints. No new labs. Remains on bronchodilators with DuoNeb updrafts. Remains on IV Solu-Medrol 40 mg every 8 hours. Currently on room air oxygen with a pulse ox of 93%. No other significant events overnight. On today's evaluation of 11/26/2023, the patient is feeling better less bronchos pastic and wheezy. Not completely back to his baseline. Labs were noted. BUN is 27 with a creatinine of 0.9 and sodium levels at 138, WBC count is 4.4 with a hemoglobin 12.6. The patient remains on bronchodilators. The patient remains on IV Solu-Medrol. He is currently on room air oxygen with a pulse ox of 92%. On today's evaluation of 11/27/2023, condition is stable without any complaints. The patient remains on DuoNeb updrafts. Remains on IV Solu-Medrol. Continues to have cough congestion and wheeze. Will continue IV Solu-Medrol for another 24 hours. On 11/28/2023, the patient remains on IV Solu-Medrol 40 mg 2 8 hours. No new complaints. Remains on room air oxygen with a pulse ox of 94%. Blood sugars are slightly elevated. No other complaints or issues for now. Remains on bronchodilators. Remains on Symbicort. Remains on Levemir insulin 30 units a day and 10 units in the morning along with NovoLog 9 units with meals. Rest of the home medications were resumed. Objective - Vital Signs Vital signs: Vital Signs Temp 98 F 11/28/23 06:53 Pulse 64 11/28/23 11:19 Resp 18 11/28/23 06:53 BP 173/91 11/28/23 06:53 Pulse Ox 94 L 11/28/23 07:45 FiO2 21 11/28/23 07:45 Intake & Output 11/27/23 11/28/23 11/28/23 18:59 06:59 18:59 Output Total 900 1100 Balance -900 -1100 Output: Urine 900 1100 Other: Voiding Method External Catheter External Catheter External Catheter # Bowel Movements 1 1 - Exam GENERAL EXAM: Alert, 63-year-old white male, resting in bed, able to turn himself from [id number] but otherwise weak and debilitated, he is fairly comfortable in no apparent distress. HEAD: Normocephalic and atraumatic EYES: Normal reaction of pupils, equal size. NOSE: Clear with pink turbinates. THROAT: No erythema or exudates. NECK: No masses, no JVD. CHEST: No chest wall deformity. LUNGS: Equal air entry with diffuse bilateral rhonchi and scattered expiratory wheezes. On room air oxygen. No conversational dyspnea or accessory muscle use. CVS: S1 and S2 normal with no audible murmur, regular rhythm. No extra heart sounds ABDOMEN: No hepatosplenomegaly, active bowel sounds, no guarding or rigidity. SPINE: No scoliosis or deformity SKIN: Shallow left buttock ulceration with adherent slough, minimal to no drainage. There is previous left calf skin graft CENTRAL NERVOUS SYSTEM: No focal deficits, tone is normal in all 4 extremities. Slow to respond to questioning. EXTREMITIES: Lower extremities are atrophied and bilaterally weak. There is no peripheral edema, clubbing, or cyanosis. Peripheral pulses are intact - Labs CBC & Chem 7: 11/26/23 05:27 11/26/23 05:27 Labs: Abnormal Lab Results - Last 24 Hours (Table) 11/27/23 11/27/23 11/27/23 Range/Units 12:09 17:10 20:27 POC Glucose (mg/dL) 187 H 200 H 216 H (70-110) mg/dL 11/28/23 Range/Units 06:52 POC Glucose (mg/dL) 255 H (70-110) mg/dL Assessment and Plan Assessment: acute COPD exacerbation, improving, reports improvement in his cough and congestion and wheeze Acute hypoxemic respiratory failure, currently on room air oxygen, secondary to above Superficial left buttock wound History of CVA History of seizure disorder History of memory impairment, normal pressure hydrocephalus was previously considered History of hypertension Diabetes mellitus, insulin-dependent History of hepatitis C and secondary liver cirrhosis Chronic thrombocytopenia Former tobacco smoker Plan: Clinically improving, will continue same treatment, remains on room air oxygen Continue combination of DuoNebs [id number] Symbicort inhaler Prednisone burst taper at time of discharge Empirically covered on azithromycin wound care Heparin for DVT prophylaxis Pepcid for GI prophylaxis We will continue to follow
[2023-11-28] MEDS ORDERED: LACTULOSE 20 GM/30 ML CUP PO PRN (15:10)
--- NOTE | 2023-11-28 15:10 | P.PN ---
Subjective Progress Note Date: 11/28/23 This is a 63-year-old gentleman past medical history significant for COPD, atelectasis, pneumonia, former nicotine dependence, hypertension, hyperlipidemia, diabetes mellitus, CVA-resides in a wheelchair and multiple other medical issues presented to the ER with progressive dyspnea since , productive cough with yellow sputum. Denies fevers, nausea, vomiting or diarrhea. Denies chest pain, palpitations. No family currently at bedside.Afebrile, Tmax 99, WBC within normal limits, hemoglobin 12.2. Platelets 105(baseline), chest x-ray reported no acute cardiopulmonary process. Electrolytes within normal limits, bicarb 28, BUN 19, creatinine 0.94. Viral studies negative. Nebulized bronchodilators, IV steroids, Symbicort, empiric antibiotics initiated in the ER. Diet adjusted to consistent carbs. No conversational dyspnea, maintaining O2 sats in the low 90s on 1 L nasal cannula. 11/24/2023 continues on nebulized bronchodilators, IV steroids and Symbicort. Sitting up in bed, feels better. Denies chest pain, palpitations or shortness of breath. Maintaining O2 sats in the high 90s on 2 L nasal cannula. Sputum culture collected, in progress. Procalcitonin elevated 0.14. afebrile, WBC 3.62. Denies cough. Tolerating diet, denies nausea vomiting or diarrhea. Creatinine 0.9. Hemoglobin A1c 7.7, blood sugars in the 200s. Evaluated by wound care center/team with recommendations noted for local wound care. 11/25/2023 Patient evaluated today on the medical floor. Having improved shortness of breath. Continues on IV solu-medrol. Patient is continued on symbicort, duoneb scheduled. Today during PT patient did require assistance and was only able to ambulate 8 ft. 11/26/2023 Patient sitting up in bed. Reports no acute complaints. He has been evaluated by PT with recommendations for subacute rehab on follow up with the patient him and his have agreed. Blood glucose in the 200s. He continues on IV solumedrol. 11/27/2023 Patient is evaluated today sitting up in the chair. He continues to report improvement in his shortness of breath pulmonary planning on transitioning to oral prednisone today. He continues on Symbicort and scheduled updrafts. Patient and family have decided on discharge to subacute rehab he is currently pending insurance authorization and discharge will likely be on Wednesday. main complaint is that patient has not had a bowel movement in a few days. He will be given lactulose. Patient is eval today sitting up in the chair. He comes continues to report no shortness of breath at this time has been transition to oral prednisone. Patient has had a bowel movement will continue on lactulose as needed. Pending insurance Auth for discharge to subacute rehab. REVIEW OF SYSTEMS: CONSTITUTIONAL: No fever, no malaise, no fatigue. HEENT: No recent visual problems or hearing problems. Denied any sore throat. CARDIOVASCULAR: No chest pain, orthopnea, PND, no palpitations, no syncope. PULMONARY: No shortness of breath, no cough, no hemoptysis. GASTROINTESTINAL: No diarrhea, no nausea, no vomiting, no abdominal pain. NEUROLOGICAL: No headaches, no weakness, no numbness. PHYSICAL EXAMINATION: GENERAL: The patient is alert and oriented x3, not in any acute distress. Well developed, well nourished. HEENT: Pupils are round and equally reacting to light. EOMI. No scleral icterus. No conjunctival pallor. Normocephalic, atraumatic. No pharyngeal erythema. No thyromegaly. CARDIOVASCULAR: S1 and S2 present. No murmurs, rubs, or gallops. PULMONARY: Chest is clear to auscultation, no wheezing or crackles. ABDOMEN: Soft, nontender, nondistended, normoactive bowel sounds. No palpable organomegaly. MUSCULOSKELETAL: No joint swelling or deformity. EXTREMITIES: No cyanosis, clubbing, or pedal edema. NEUROLOGICAL: Gross neurological examination did not reveal any focal deficits. SKIN: No rashes. 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 Continue levemir. Pulmonary following Patient has been weaned to room air. Local wound care with honey gel and bordered foam dressing changes as re commended per wound care center. Patient was subacute rehab and auth has been started possible DC in the next 24 hours The impression and plan of care has been dictated by Nurse Arleen Bauer [email or web address] as directed. Dr. Christiano MD I have performed a history and physical examination and medical decision making of this patient, discussed the same with the dictator, and agree with the dictat ors assessment and plan as written, documented as a scribe. Based on total visit time, I have performed more than 50% of this visit. Objective - Vital Signs Vital signs: Vital Signs Temp 98.1 F 11/28/23 12:55 Pulse 60 11/28/23 15:04 Resp 17 11/28/23 12:55 BP 137/74 11/28/23 12:55 Pulse Ox 92 L 11/28/23 12:55 FiO2 21 11/28/23 07:45 Intake & Output 11/27/23 11/28/23 11/28/23 18:59 06:59 18:59 Output Total 900 1100 Balance -900 -1100 Output: Urine 900 1100 Other: Voiding Method External Catheter External Catheter External Catheter # Bowel Movements 1 1 - Labs CBC & Chem 7: 11/26/23 05:27 11/26/23 05:27 Labs: Abnormal Lab Results - Last 24 Hours (Table) 11/27/23 11/27/23 11/28/23 Range/Units 17:10 20:27 06:52 POC Glucose (mg/dL) 200 H 216 H 255 H (70-110) mg/dL 11/28/23 Range/Units 12:00 POC Glucose (mg/dL) 176 H (70-110) mg/dL Assessment and Plan Time with Patient: Less than 30
[2023-11-28 17:35] LABS: Glucose,Whole Blood 193 mg/dL (70-110)
[2023-11-28 20:34] LABS: Glucose,Whole Blood 130 mg/dL (70-110)
[2023-11-29 07:16] LABS: Glucose,Whole Blood 101 mg/dL (70-110)
[2023-11-29] MEDS: predniSONE 20 MG TAB PO SCH (08:33)
[2023-11-29 12:26] LABS: Glucose,Whole Blood 165 mg/dL (70-110)
[2023-11-29 13:34] VITALS: BP 152/65; PULSE 74; RESP 19; TEMP 98.6
--- NOTE | 2023-11-29 13:41 | P.PN ---
Subjective Progress Note Date: 11/29/23 Patient is a 64-year-old white male with past medical history significant for chronic obstructive pulmonary disease, former tobacco smoker, CVA/TIA, memory impairment, seizure disorder, hypertension, diabetes mellitus type 2, among other things. Of note, patient did have recent hospitalization 10/12/2023 through 10/20/2023, he did have a brief stay in the intensive care unit. Apparently, the patient was severely altered and had trouble with oxygenation. 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 He ended up being discharged with [facility]. He lives at home with his . He does not walk, and he is wheelchair dependent. Patient returned to the emergency department late last night with a chief complaint of progressively worsening shortness of breath since . He does have history of severe chronic obstructive pulmonary disease. Normally, maintained with a combination of Symbicort inhaler, DuoNebs, and as needed albuterol HFA inhaler. He does have home oxygen available, but does not routinely use it. He is currently resting in bed, on 2 L/min nasal cannula, in no acute distress. He speaks in complete sentences. He has had a productive cough with yellow mucus production. No recorded fevers. Denies chest pain. He is alert but slow to respond. He does have a chronic left buttock wound. Which is shallow with adherent slough, no significant drainage. Chest x-ray did not show any acute cardiopulmonary process. CBC: WBC count of 4.9, hemoglobin 12.2, hematocrit 36.4, platelets 105. CMP unremarkable. Normal saline infusing at 75 MLS per hour. Negative for influenza, RSV, COVID. Vital signs are stable. 11/24/2023, the patient is feeling better. The patient is less short of breath. Less bronchospastic and wheezy. No new complaints otherwise for now. He is afebrile. White cell count is at 3.6 with a hemoglobin 12.8 and a platelet count of 98. Electrolytes are all stable.Reports improvement in shortness of br eath compared to yesterday. Less bronchospastic and wheezy. 11/25/2023, the patient is being seen for a follow-up. Ambulating short distances with assistance. No other new complaints. No new labs. Remains on bronchodilators with DuoNeb updrafts. Remains on IV Solu-Medrol 40 mg every 8 hours. Currently on room air oxygen with a pulse ox of 93%. No other significant events overnight. On today's evaluation of 11/26/2023, the patient is feeling better less bronchospastic and wheezy. Not completely back to his baseline. Labs were noted. BUN is 27 with a creatinine of 0.9 and sodium levels at 138, WBC count is 4.4 with a hemoglobin 12.6. The patient remains on bronchodilators. The pat ient remains on IV Solu-Medrol. He is currently on room air oxygen with a pulse ox of 92%. On today's evaluation of 11/27/2023, condition is stable without any complaints. The patient remains on DuoNeb updrafts. Remains on IV Solu-Medrol. Continues to have cough congestion and wheeze. Will continue IV Solu-Medrol for another 24 hours. On 11/28/2023, the patient remains on IV Solu-Medrol 40 mg 2 8 hours. No new complaints. Remains on room air oxygen with a pulse ox of 94%. Blood sugars ar e slightly elevated. No other complaints or issues for now. Remains on bronchodilators. Remains on Symbicort. Remains on Levemir insulin 30 units a day and 10 units in the morning along with NovoLog 9 units with meals. Rest of the home medications were resumed. The patient is seen today November 29, 2023 in follow-up on the regular medical floor. He is currently sitting up in a chair at the bedside. Awake and alert in no acute distress. Maintaining good O2 saturations in the 90s on room air. He is continued on Symbicort, DuoNeb inhalations, prednisone taper. Sputum culture was positive for methicillin sensitive Staphylococcus aureus and Serratia marcescens. He had been initially treated with azithromycin. Glucose 165. Continued on Levemir and NovoLog sliding scale. Remains on heparin for DVT prophylaxis. Objective - Vital Signs Vital signs: Vital Signs Temp 97.9 F 11/29/23 07:46 Pulse 68 11/29/23 12:21 Resp 16 11/29/23 07:46 BP 147/74 11/29/23 07:46 Pulse Ox 92 L 11/29/23 07:46 FiO2 21 11/28/23 07:45 Intake & Output 11/28/23 11/29/23 11/29/23 18:59 06:59 18:59 Output Total 800 200 Balance -800 -200 Output: Urine 800 200 Other: Voiding Method External Catheter External Catheter # Bowel Movements 1 - Exam GENERAL EXAM: Alert, 63-year-old male, up in a chair, on room air, comfortable in no apparent distress. HEAD: Normocephalic. EYES: Normal reaction of pupils, equal size. NOSE: Clear with pink turbinates. THROAT: No erythema or exudates. NECK: No masses, no JVD. CHEST: No chest wall deformity. LUNGS: Equal air entry with bilateral end expiratory wheeze, diminished. CVS: S1 and S2 normal with no audible murmur, regular rhythm. ABDOMEN: No hepatosplenomegaly, normal bowel sounds, no guarding or rigidity. SPINE: No scoliosis or deformity SKIN: Shallow left buttock ulceration with adherent slough, minimal to no drainage. There is previous left calf skin graft CENTRAL NERVOUS SYSTEM: No focal deficits, tone is normal in all 4 extremities. Slow to respond to questioning. EXTREMITIES: Lower extremities are atrophied and bilaterally weak. There is no peripheral edema, clubbing, or cyanosis. Peripheral pulses are intact - Labs CBC & Chem 7: 11/26/23 05:27 11/26/23 05:27 Labs: Abnormal Lab Results - Last 24 Hours (Table) 11/28/23 11/28/23 11/29/23 Range/Units 17:34 20:32 12:14 POC Glucose (mg/dL) 193 H 130 H 165 H (70-110) mg/dL Assessment and Plan Assessment: Acute COPD exacerbation, improving, reports improvement in his cough and congestion and wheeze. Sputum culture is positive for Serratia marcescens and MSSA Acute hypoxemic respiratory failure, recovered and currently on room air oxygen, secondary to above Superficial left buttock wound History of CVA History of seizure disorder History of memory impairment, normal pressure hydrocephalus was previously considered History of hypertension Diabetes mellitus, insulin-dependent History of hepatitis C and secondary liver cirrhosis Chronic thrombocytopenia Former tobacco smoker Plan: The patient was seen and evaluated Labs and medications reviewed Sputum culture positive for MSSA and Serratia marcescens Recommend Levaquin 500 mg daily for 10 days Currently stable and on room air Plan is for Elsy at discharge I have personally seen and examined the patient, performed the documentation and the assessment and plan as written. Number of minutes spent on the visit: 10.
[2023-11-29] MEDS: LEVOFLOXACIN 500 MG TAB PO SCH (14:16)
--- NOTE | 2023-11-29 14:55 | P.DS ---
Providers Date of admission: 11/23/23 00:15 Expected date of discharge: 11/29/23 Attending physician: Dmitriy Liu MD Consults: 11/23/23 00:13 Consult Physician Routine Consulting Provider: Cha Burnett Consult Reason/Comments: hypoxic respiratory failure, copd, tracheobronchitis Do you want consulting provider notified?: Yes Primary care physician: Dmitriy Liu MD Hospital Course: Final diagnoses Acute COPD exacerbation, sputum culture positive for MSSA, Serratia marcescens Acute hypoxic respiratory failure secondary to the above left buttock wound, stage II, present on admission Chronic Thrombocytopenia, 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 Denies fevers, nausea, vomiting or diarrhea. Denies chest pain, palpitations. No family currently at bedside.Afebrile, Tmax 99, WBC within normal limits, hemoglobin 12.2. Platelets 105(baseline), chest x-ray reported no acute cardiopulmonary process. Electrolytes within normal limits, bicarb 28, BUN 19, creatinine 0.94. Viral studies negative. Nebulized bronchodilators, IV steroids, Symbicort, empiric antibiotics initiated in the ER. Diet adjusted to consistent carbs. No conversational dyspnea, maintaining O2 sats in the low 90s on 1 L nasal cannula. Evaluated/treated by wound care center team, pulmonary. Maintained on aggressive pulmonary toileting with steroids, Symbicort, nebulized bronchodilators. Maintaining O2 sats in the low 90s on room air. Patient has oxygen at home; PCP has recommended patient continue using 2 L nasal cannula O2 at home during this week of high temps and high humidity. sputum culture positive for methicillin sensitive staph coccus aureus and Serratia marcescens. Initially treated with azithromycin; pulmonary recommending Levaquin 500 milligrams daily x 10 days at discharge. Cleared by pulmonary for discharge. Initially had planned for [facility] subacute rehab. but case management informed by Elsy that patient does not have any days left. Long-term care offered , declined. Patient will be discharged home today in a stable condition with guarded prognosis. The impression and plan of care has been dictated as directed. : I performed a history and examination of this patient, discussed the same with the dictator. I agree with the dictator's note ,documented as a scribe. Any additional findings or plans will be noted. Patient Condition at Discharge: Stable Plan - Discharge Summary Discharge Rx Participant: No New Discharge Prescriptions: New Famotidine [Pepcid] 20 mg PO DAILY #30 tab lisinopriL [Zestril] 5 mg PO DAILY #30 tab predniSONE 10 mg PO DIRECTED #30 tab Nystatin 100,000 Unit/gm Powd [Mycostatin Powder] 1 applic TOPICAL TID each Levofloxacin [Levaquin] 500 mg PO DAILY 10 Days #10 tab Continue Albuterol Sulfate [Proair Hfa] 2 puff INHALATION RT-QID PRN PRN Reason: Shortness Of Breath Ferrous Sulfate [Iron (65 MG Elemental)] 325 mg PO DAILY Primidone [Mysoline] 50 mg PO HS Acetaminophen Tab [Tylenol] 325 mg PO Q6HR PRN tab PRN Reason: Fever And/ Or Pain Lacosamide [Vimpat] 200 mg PO BID #6 tab amLODIPine [Norvasc] 2.5 mg PO BID Budesonide-Formot 160-4.5 Mcg [Symbicort 160-4.5 Mcg Inhaler] 2 puff INHALATION RT-BID #1 each Insulin Lispro [humaLOG Kwikpen] See Protocol SQ ACHS Clopidogrel [Plavix] 75 mg PO HS Escitalopram [Lexapro] 20 mg PO HS Rosuvastatin Calcium [Crestor] 40 mg PO HS Aspirin EC [Ecotrin Low Dose] 81 mg PO DAILY Multivitamins, Thera [Multivitamin (formulary)] 1 tab PO DAILY Insulin Detemir [Levemir Flexpen] 48 units SQ DAILY Lactulose [Cephulac] 20 gm PO TID Changed Ipratropium-Albuterol Nebulize [Duoneb 0.5 mg-3 mg/3 ml Soln] 3 ml INHALATION RT-QID #120 each Discharge Medication List Albuterol Sulfate [Proair Hfa] 2 puff INHALATION RT-QID PRN 10/22/20 [History] Ferrous Sulfate [Iron (65 MG Elemental)] 325 mg PO DAILY 12/10/20 [History] Clopidogrel [Plavix] 75 mg PO HS 06/30/21 [History] Primidone [Mysoline] 50 mg PO HS 06/30/21 [History] Escitalopram [Lexapro] 20 mg PO HS 02/23/23 [History] Rosuvastatin Calcium [Crestor] 40 mg PO HS 03/14/23 [History] Acetaminophen Tab [Tylenol] 325 mg PO Q6HR PRN tab 03/16/23 [Rx] Lacosamide [Vimpat] 200 mg PO BID #6 tab 03/16/23 [Rx] Aspirin EC [Ecotrin Low Dose] 81 mg PO DAILY 05/22/23 [History] Multivitamins, Thera [Multivitamin (formulary)] 1 tab PO DAILY 05/22/23 [History] Insulin Detemir [Levemir Flexpen] 48 units SQ DAILY 06/15/23 [History] Lactulose [Cephulac] 20 gm PO TID 09/08/23 [History] amLODIPine [Norvasc] 2.5 mg PO BID 09/08/23 [History] Budesonide-Formot 160-4.5 Mcg [Symbicort 160-4.5 Mcg Inhaler] 2 puff INHALATION RT-BID #1 each 09/10/23 [Rx] Insulin Lispro [humaLOG Kwikpen] See Protocol SQ ACHS 10/12/23 [History] Famotidine [Pepcid] 20 mg PO DAILY #30 tab 11/29/23 [Rx] Ipratropium-Albuterol Nebulize [Duoneb 0.5 mg-3 mg/3 ml Soln] 3 ml INHALATION RT-QID #120 each 11/29/23 [Rx] Levofloxacin [Levaquin] 500 mg PO DAILY 10 Days #10 tab 11/29/23 [Rx] Nystatin 100,000 Unit/gm Powd [Mycostatin Powder] 1 applic TOPICAL TID each 11/29/23 [Rx] lisinopriL [Zestril] 5 mg PO DAILY #30 tab 11/29/23 [Rx] predniSONE 10 mg PO DIRECTED #30 tab 11/29/23 [Rx] Follow up Appointment(s)/Referral(s): Dmitriy Liu MD [Primary Care Provider] - 12/01/23 12:45 pm (appointment with Prachi Garcia NP @ [facility].) [facility], [NON-STAFF] - 1 Week Wound Center,[facility] [NON-STAFF] - 1 Week (The clinic will call with a follow up appointment) Cha Burnett MD [STAFF PHYSICIAN] - 12/20/23 1:00 pm Patient Instructions/Handouts: Lisinopril (By mouth), Famotidine (By mouth), Prednisone (By mouth), Levofloxacin (By mouth), Acute Bronchitis (ED), COPD (Chronic Obstructive Pulmonary Disease) (DC) Activity/Diet/Wound Care/Special Instructions: 2 L nasal cannula O2 (patient has O2 at home) Discharge Disposition: HOME WITH HOME HEALTH SERVICES
== END 2023-11-29 14:56 | disposition home health service (06) | DRG 140 ==
LOC: EC 20:20 → 5NMEDONC 11-23 00:15
PROVIDERS: ADMIT Family Medicine; ATTEND Family Medicine
DX: J44.0 Chronic obstructive pulmonary disease with (acute) lower respiratory infection (principal); J44.1 Chronic obstructive pulmonary disease with (acute) exacerbation; J96.01 Acute respiratory failure with hypoxia; L89.322 Pressure ulcer of left buttock, stage 2; D69.6 Thrombocytopenia, unspecified; K74.60 Unspecified cirrhosis of liver; E11.65 Type 2 diabetes mellitus with hyperglycemia; B95.61 Methicillin susceptible Staphylococcus aureus infection as the cause of diseases classified elsewhere; B19.20 Unspecified viral hepatitis C without hepatic coma; J20.9 Acute bronchitis, unspecified; G40.909 Epilepsy, unspecified, not intractable, without status epilepticus; I10 Essential (primary) hypertension; F32.A Depression, unspecified; Z79.4 Long term (current) use of insulin; B96.89 Other specified bacterial agents as the cause of diseases classified elsewhere; T38.0X5A Adverse effect of glucocorticoids and synthetic analogues, initial encounter; E78.5 Hyperlipidemia, unspecified; G89.4 Chronic pain syndrome; N40.0 Benign prostatic hyperplasia without lower urinary tract symptoms; I25.2 Old myocardial infarction; K44.9 Diaphragmatic hernia without obstruction or gangrene; F41.9 Anxiety disorder, unspecified; Z79.82 Long term (current) use of aspirin; Z79.51 Long term (current) use of inhaled steroids; Z79.02 Long term (current) use of antithrombotics/antiplatelets; Z79.899 Other long term (current) drug therapy; Z87.891 Personal history of nicotine dependence; Z86.73 Personal history of transient ischemic attack (TIA), and cerebral infarction without residual deficits; Z99.3 Dependence on wheelchair; Z88.5 Allergy status to narcotic agent; Z97.8 Presence of other specified devices
CPT/HCPCS: 36415; 71046; 80048; 80053; 83036; 83735; 84145; 85025; 87070; 87077; 87186; 87205; 87636; 93005; 94640; 94760; 96365; 96366; 96375; 99291

== ENCOUNTER 2024-03-12 13:16 | Observation (INO) | payer OTHER ==
--- NOTE | 2024-03-12 13:34 | ED ---
General Adult HPI - General Chief complaint: Shortness of Breath Stated complaint: NEGRO Time Seen by Provider: 03/12/24 13:17 Source: patient, RN notes reviewed Mode of arrival: ambulatory Limitations: no limitations - History of Present Illness Initial comments: Patient is a 63-year-old male presenting to the emergency department by EMS for hypoxia. Patient has multiple medical problems however does live at home with family. Patient had oxygen saturation in the upper 80s. Patient is a poor historian and states he feels fine he has no complaints. Patient has reported history of COPD and CHF. Patient denies fevers. - Related Data Home Medications Medication Instructions Recorded Confirmed Albuterol Sulfate [Proair Hfa] 2 puff INHALATION RT-QID PRN 10/22/20 11/23/23 Ferrous Sulfate [Iron (65 MG 325 mg PO DAILY 12/10/20 11/23/23 Elemental)] Clopidogrel [Plavix] 75 mg PO HS 06/30/21 11/23/23 Primidone [Mysoline] 50 mg PO HS 06/30/21 11/23/23 Escitalopram [Lexapro] 20 mg PO HS 02/23/23 11/23/23 Rosuvastatin Calcium [Crestor] 40 mg PO HS 03/14/23 11/23/23 Aspirin EC [Ecotrin Low Dose] 81 mg PO DAILY 05/22/23 11/23/23 Multivitamins, Thera [Multivitamin 1 tab PO DAILY 05/22/23 11/23/23 (formulary)] Insulin Detemir [Levemir Flexpen] 48 units SQ DAILY 06/15/23 11/23/23 Lactulose [Cephulac] 20 gm PO TID 09/08/23 11/23/23 amLODIPine [Norvasc] 2.5 mg PO BID 09/08/23 11/23/23 Insulin Lispro [humaLOG Kwikpen] See Protocol SQ ACHS 10/12/23 11/23/23 Previous Rx's Medication Instructions Recorded Acetaminophen Tab [Tylenol] 325 mg PO Q6HR PRN tab 03/16/23 Lacosamide [Vimpat] 200 mg PO BID #6 tab 03/16/23 Budesonide-Formot 160-4.5 Mcg 2 puff INHALATION RT-BID #1 each 09/10/23 [Symbicort 160-4.5 Mcg Inhaler] Famotidine [Pepcid] 20 mg PO DAILY #30 tab 11/29/23 Ipratropium-Albuterol Nebulize 3 ml INHALATION RT-QID #120 each 11/29/23 [Duoneb 0.5 mg-3 mg/3 ml Soln] Levofloxacin [Levaquin] 500 mg PO DAILY 10 Days #10 tab 11/29/23 Nystatin 100,000 Unit/gm Powd 1 applic TOPICAL TID each 11/29/23 [Mycostatin Powder] lisinopriL [Zestril] 5 mg PO DAILY #30 tab 11/29/23 predniSONE 10 mg PO DIRECTED #30 tab 11/29/23 Allergies Allergy/AdvReac Type Severity Reaction Status Date / Time morphine AdvReac Nausea & Verified 11/23/23 08:29 Vomiting Review of Systems ROS Statement: Those systems with pertinent positive or pertinent negative responses have been documented in the HPI. ROS Other: All systems not noted in ROS Statement are negative. Constitutional: Reports: as per HPI Eyes: Denies: eye pain Respiratory: Reports: as per HPI Cardiovascular: Denies: chest pain Endocrine: Denies: fatigue Gastrointestinal: Denies: abdominal pain Past Medical History Past Medical History: COPD, CVA/TIA, Diabetes Mellitus, Hyperlipidemia, Hypertension, Memory Impairment, Myocardial Infarction (MD), Prostate Disorder, Seizure Disorder, Skin Disorder Additional Past Medical History / Comment(s): duodenal ulcer, pain and numbness cyrus legs and feet,pain pump in back, anemia. TIA X3, HEPATITIS C PAST HISTORY, LAST SEIZURE 2012,hiatal hernia Last Myocardial Infarction Date:: POSSIBLE MD 2012 History of Any Multi-Drug Resistant Organisms: None Reported Past Surgical History: Appendectomy, Back Surgery, Heart Catheterization, Orthopedic Surgery Additional Past Surgical History / Comment(s): titanium lyn in lt leg, skin graph to rt 1st and middle finger, lt eardum replaced, cyrus. foot surgery to arch, cataract surgery bilateral with implant,skin graft left leg Past Anesthesia/Blood Transfusion Reactions: No Reported Reaction Past Psychological History: Anxiety, Depression Smoking Status: Former smoker Past Alcohol Use History: None Reported Past Drug Use History: None Reported - Past Family History Mother Family Medical History: Diabetes Mellitus, Pulmonary Embolus Father Additional Family Medical History / Comment(s): Father had pain problems/hallucinations. He committed suicide. General Exam Limitations: no limitations General appearance: alert, in no apparent distress Head exam: Present: normocephalic Eye exam: Present: normal appearance Neck exam: Present: normal inspection Respiratory exam: Present: wheezes Cardiovascular Exam: Present: regular rate, normal rhythm GI/Abdominal exam: Present: soft. Absent: tenderness Extremities exam: Present: normal inspection. Absent: pedal edema, calf tenderness Neurological exam: Present: alert Psychiatric exam: Present: normal affect, normal mood Skin exam: Present: normal color Course Vital Signs 03/12/24 03/12/24 03/12/24 13:21 13:30 14:20 Temperature 101.3 F H Pulse Rate 69 Respiratory 20 24 Rate Blood Pressure 139/59 O2 Sat by Pulse 90 L Oximetry 03/12/24 15:10 Temperature 99.5 F Pulse Rate 64 Respiratory 16 Rate Blood Pressure 131/57 O2 Sat by Pulse 94 L Oximetry EKG Findings - EKG Results: EKG: interpreted by CLEM (Flattened T waves), sinus rhythm, normal axis, normal QRS Medical Decision Making - Medical Decision Making Was pt. sent in by a medical professional or institution (Dr. PA, ORTHOPEDIC TECHNICIAN, urgent care, hospital, or retirement...) When possible be specific @ -No Did you speak to anyone other than the patient for history (EMS, parent, family, police, friend...)? What history was obtained from this source @ -Family arrives and provides additional history of patient having chronic lung problems Did you review nursing and triage notes (agree or disagree)? Why? @ -I reviewed and agree with nursing and triage notes Were old charts reviewed (outside hosp., previous admission, EMS record, old EKG, old radiological studies, urgent care reports/EKG's, retirement records)? Report findings @ -Previous x-rays reviewed Differential Diagnosis (chest pain, altered mental status, abdominal pain women, abdominal pain men, vaginal bleeding, weakness, fever, dyspnea, syncope, headache, dizziness, GI bleed, back pain, seizure, CVA, palpatations, mental health, musculoskeletal)? @ -Differential Dyspnea: Coronary syndrome, arrhythmia, tamponade, asthma, COPD, pulmonary embolism, pneumonia, pneumothorax, pulmonary effusion, anaphylaxis, diabetic ketoacidosis, flailed chest, pulmonary contusion, diaphragmatic rupture, anemia, neuromuscular, this is not meant to be an all-inclusive list. EKG interpreted by me (3pts min.). @ -As above X-rays interpreted by me (1pt min.). @ -Chest x-ray concerning for right lower lobe infiltrate CT interpreted by me (1pt min.). @ -None done U/S interpreted by me (1pt. min.). @ -None done What testing was considered but not performed or refused? (CT, X-rays, U/S, labs)? Why? @ -None What meds were considered but not given or refused? Why? @ -None Did you discuss the management of the patient with other professionals (professionals i.e. , PA, ORTHOPEDIC TECHNICIAN, lab, RT, psych nurse, sr. social media & mobile manager, fixed income analyst, teacher, occupational health and safety officer, family preservation caseworker)? Give summary @ -Case discussed with Dr. Rhodes who will admit covering Dr. Liu Was smoking cessation discussed for >3mins.? @ -No Was critical care preformed (if so, how long)? @ -31 minutes critical care time provided Were there social determinants of health that impacted care today? How? (Homelessness, low income, unemployed, alcoholism, drug addiction, tr ansportation, low edu. Level, literacy, decrease access to med. care, alf, rehab)? @ -No Was there de-escalation of care discussed even if they declined (Discuss DNR or withdrawal of care, Hospice)? DNR status @ -No What co-morbidities impacted this encounter? (DM, HTN, Smoking, COPD, CAD, Cancer, CVA, ARF, Chemo, Hep., AIDS, mental health diagnosis, sleep apnea, morbid obesity)? @ -History of previous pneumonia and lung disease Was patient admitted / discharged? Hospital course, mention meds given and route, prescriptions, significant lab abnormalities, going to OR and other pertinent info. @ -Patient presents with dyspnea with pneumonia on x-ray and low oxygen. Patient will be admitted with IV antibiotics. There is concern for sepsis diagnosed at 1600. Blood culture and lactic acid and IV antibiotics will be ordered. Undiagnosed new problem with uncertain prognosis? @ -No Drug Therapy requiring intensive monitoring for toxicity (Heparin, Nitro, Insulin, Cardizem)? @ -No Were any procedures done? @ -No Diagnosis/symptom? @ -Pneumonia, sepsis Acute, or Chronic, or Acute on Chronic? @ -Acute, acute Uncomplicated (without systemic symptoms) or Complicated (systemic symptoms)? @ -Default Side effects of treatment? @ -No Exacerbation, Progression, or Severe Exacerbation? @ -No Poses a threat to life or bodily function? How? (Chest pain, USA, MD, pneumonia, PE, COPD, DKA, ARF, appy, cholecystitis, CVA, Diverticulitis, Homicidal, Suicidal, threat to staff... and all critical care pts) @ -Threat to pulmonary function - Lab Data Result diagrams: 03/12/24 13:45 03/12/24 13:45 Lab Results 03/12/24 03/12/24 03/12/24 Range/Units 13:45 13:45 13:45 WBC 6.8 (3.8-10.6) k/uL RBC 3.69 L (4.30-5.90) m/uL Hgb 12.3 L (13.0-17.5) gm/dL Hct 37.5 L (39.0-53.0) % MCV 101.6 H (80.0-100.0) fL MCH 33.3 (25.0-35.0) pg MCHC 32.7 (31.0-37.0) g/dL RDW 13.0 (11.5-15.5) % Plt Count 88 L (150-450) k/uL MPV 7.3 Neutrophils % 79 % Lymphocytes % 12 % Monocytes % 6 % Eosinophils % 1 % Basophils % 0 % Neutrophils # 5.4 (1.3-7.7) k/uL Lymphocytes # 0.8 L (1.0-4.8) k/uL Monocytes # 0.4 (0-1.0) k/uL Eosinophils # 0.1 (0-0.7) k/uL Basophils # 0.0 (0-0.2) k/uL Manual Slide Review Performed Macrocytosis Slight PT 10.9 (10.0-12.5) sec INR 1.0 (<1.2) APTT 23.5 (22.0-30.0) sec Sodium 139 (137-145) mmol/L Potassium 4.3 (3.5-5.1) mmol/L Chloride 103 (98-107) mmol/L Carbon Dioxide 27 (22-30) mmol/L Anion Gap 9 mmol/L BUN 16 (9-20) mg/dL Creatinine 0.78 (0.66-1.25) mg/dL Est GFR (CKD-EPI)AfAm >90 (>60 ml/min/1.73 sqM) Est GFR (CKD-EPI)NonAf >90 (>60 ml/min/1.73 sqM) Glucose 188 H (74-99) mg/dL Plasma Lactic Acid Duane (0.7-2.0) mmol/L Calcium 9.4 (8.4-10.2) mg/dL Magnesium 1.8 (1.6-2.3) mg/dL Total Bilirubin 0.8 (0.2-1.3) mg/dL AST 25 (17-59) U/L ALT 13 (4-49) U/L Alkaline Phosphatase 48 (38-126) U/L Troponin I (0.000-0.034) ng/mL NT-Pro-B Natriuret Pep 241 pg/mL Total Protein 7.1 (6.3-8.2) g/dL Albumin 4.1 (3.5-5.0) g/dL Influenza Type A (PCR) (Not Detectd) Influenza Type B (PCR) (Not Detectd) RSV (PCR) (Not Detectd) SARS-CoV-2 (PCR) (Not Detectd) 03/12/24 03/12/24 03/12/24 Range/Units 13:45 13:45 13:45 WBC (3.8-10.6) k/uL RBC (4.30-5.90) m/uL Hgb (13.0-17.5) gm/dL Hct (39.0-53.0) % MCV (80.0-100.0) fL MCH (25.0-35.0) pg MCHC (31.0-37.0) g/dL RDW (11.5-15.5) % Plt Count (150-450) k/uL MPV Neutrophils % % Lymphocytes % % Monocytes % % Eosinophils % % Basophils % % Neutrophils # (1.3-7.7) k/uL Lymphocytes # (1.0-4.8) k/uL Monocytes # (0-1.0) k/uL Eosinophils # (0-0.7) k/uL Basophils # (0-0.2) k/uL Manual Slide Review Macrocytosis PT (10.0-12.5) sec INR (<1.2) APTT (22.0-30.0) sec Sodium (137-145) mmol/L Potassium (3.5-5.1) mmol/L Chloride (98-107) mmol/L Carbon Dioxide (22-30) mmol/L Anion Gap mmol/L BUN (9-20) mg/dL Creatinine (0.66-1.25) mg/dL Est GFR (CKD-EPI)AfAm (>60 ml/min/1.73 sqM) Est GFR (CKD-EPI)NonAf (>60 ml/min/1.73 sqM) Glucose (74-99) mg/dL Plasma Lactic Acid Duane 1.6 (0.7-2.0) mmol/L Calcium (8.4-10.2) mg/dL Magnesium (1.6-2.3) mg/dL Total Bilirubin (0.2-1.3) mg/dL AST (17-59) U/L ALT (4-49) U/L Alkaline Phosphatase (38-126) U/L Troponin I <0.012 (0.000-0.034) ng/mL NT-Pro-B Natriuret Pep pg/mL Total Protein (6.3-8.2) g/dL Albumin (3.5-5.0) g/dL Influenza Type A (PCR) Not Detected (Not Detectd) Influenza Type B (PCR) Not Detected (Not Detectd) RSV (PCR) Not Detected (Not Detectd) SARS-CoV-2 (PCR) Not Detected (Not Detectd) Critical Care Time Critical Care Time: Yes Disposition Clinical Impression: Pneumonia, Sepsis Disposition: ADMITTED IP TO THIS [facility] Condition: Serious Is patient prescribed a controlled substance at d/c from ED?: No Referrals: Dmitriy Liu MD [Primary Care Provider] - 1-2 days Time of Disposition: 16:12
--- NOTE | 2024-03-12 14:06 | XR ---
EXAMINATION TYPE: XR chest 2V DATE OF EXAM: 03/12/2024 COMPARISON: 11/22/2023 HISTORY: Difficulty breathing TECHNIQUE: Frontal and lateral views of the chest are obtained. FINDINGS: Exam is limited by suboptimal inspiration. On the lateral view there is a focal area of partially co nsolidated opacity in one of the lung bases likely in the right lung base. There is no pleural effusion or pneumothorax. Heart and pulmonary vasculature are normal for the technique. IMPRESSION: 1. Limited by suboptimal inspiration. 2. Partially consolidated opacity in one of the lung bases likely on the right. The findings are cons istent with acute pneumonia and short-term follow-up is recommended [facility], , 03/12/2024 2:04 PM
[2024-03-12 14:07] LABS: Basophils % (A) 0 %; Eosinophils # (A) 0.1 k/uL (0-0.7); Eosinophils % (A) 1 %; HCT 37.5 % (39.0-53.0); HGB 12.3 gm/dL (13.0-17.5); Lymphocytes # (A) 0.8 k/uL (1.0-4.8); Lymphocytes % (A) 12 %; MCH 33.3 pg (25.0-35.0); MCHC 32.7 g/dL (31.0-37.0); MCV 101.6 fL (80.0-100.0); Macrocytosis Slight; Mean Platelet Volume 7.3; Monocytes # (A) 0.4 k/uL (0-1.0); Monocytes % (A) 6 %; Neutrophils # (A) 5.4 k/uL (1.3-7.7); Neutrophils % (A) 79 %; RBC 3.69 m/uL (4.30-5.90); WBC 6.8 k/uL (3.8-10.6)
[2024-03-12 14:15] LABS: Partial Thromboplastin Time 23.5 sec (22.0-30.0); Prothrombin Time 10.9 sec (10.0-12.5)
[2024-03-12] MEDS: ACETAMINOPHEN IV (For NPO) 1,000 MG in EMPTY BAG 1 BAG IVPB STA (14:17)
[2024-03-12 14:22] LABS: ALT 13 U/L (4-49); AST 25 U/L (17-59); African American GFR (CKD) >90 (>60 ml/min/1.73 sqM); Albumin 4.1 g/dL (3.5-5.0); Alkaline Phosphatase 48 U/L (38-126); Anion Gap 9 mmol/L; Blood Urea Nitrogen 16 mg/dL (9-20); Calcium 9.4 mg/dL (8.4-10.2); Carbon Dioxide 27 mmol/L (22-30); Chloride 103 mmol/L (98-107); Glucose 188 mg/dL (74-99); Magnesium 1.8 mg/dL (1.6-2.3); Non-African American GFR(CKD) >90 (>60 ml/min/1.73 sqM); Potassium 4.3 mmol/L (3.5-5.1); Sodium 139 mmol/L (137-145); Total Bilirubin 0.8 mg/dL (0.2-1.3); Total Protein 7.1 g/dL (6.3-8.2)
[2024-03-12 14:30] LABS: NT-Pro-B-Type Natriuretic Pept 241 pg/mL
[2024-03-12 14:39] LABS: Platelet Count 88 k/uL (150-450)
[2024-03-12] MEDS ORDERED: PNEUMONIA PROTOCOL UTILIZED 1 EACH MISC PO PRN (16:12)
[2024-03-12] MEDS: SODIUM CHLORIDE 0.9% 1,000 ML IV SCH (18:09)
[2024-03-12] MEDS: AZITHROMYCIN 500 MG in SODIUM CHLORIDE 0.9% 250 ML IVPB STA (20:16)
--- NOTE | 2024-03-13 08:15 | XR ---
EXAMINATION TYPE: XR chest 1V portable DATE OF EXAM: 03/13/2024 5:14 AM CLINICAL INDICATION: Male, 63 years old with history of pneumonia; [facility] COMPARISON: Chest radiograph from one day prior. TECHNIQUE: XR chest 1V portable Frontal view of the chest. FINDINGS: Lungs/Pleura: Similar haziness the right lung base, low lung volumes. There is no evidence of pleural effusion, left focal consolidation, or pneumothorax. Pulmonary vascularity: Unremarkable. Heart/mediastinum: Cardiomediastinal silhouette is unremarkable. Musculoskeletal: No acute osseous pathology. Other findings: None Lines/Tubes: IMPRESSION: The lung volumes, Stable appearance of lungs continued attention on follow-up imaging. [facility], , 03/13/2024 8:13 AM
[2024-03-13] MEDS: AZITHROMYCIN 500 MG TAB PO SCH (08:28)
[2024-03-13] MEDS: IPRATROPIUM-ALBUTEROL 3 ML NEB INHALATION PRN (08:51)
[2024-03-13] MEDS: IPRATROPIUM-ALBUTEROL 3 ML NEB INHALATION SCH (16:16)
--- NOTE | 2024-03-13 16:57 | P.CNPUL ---
History of Present Illness Consult date: 03/13/24 Requesting physician: Dmitriy Liu Reason for consult: pneumonia Chief complaint: Shortness of breath History of present illness: This is a 64-year-old white male familiar to my service, patient is a poor historian, but he had multiple admissions in the past for COPD, congestive heart failure, and recurrent pneumonia, patient has not been back in the hospital since November of 2023 patient lives at home, he is on home oxygen, he has known history of multiple medical problems including COPD, CVA, type 2 diabetes, hypertension, coronary artery disease and previous SD, history of duodenal ulcer , history of chronic back pain and chronic pain syndrome, patient had previous history of seizures, and history of hepatitis C. Patient was brought into the ER today with chief complaint of shortness of breath, fever, and intermittent nonproductive cough. Chest x-ray on admission showed atelectasis, possible pneumonia, however considering the patient was febrile on admission, and considering his symptoms he was admitted with impression of pneumonia.Labs showed no evidence of leukocytosis, basic metabolic profile is normal.Patient tested negative for influenza AB and negative for Legionella, negative for RSV and negative for COVID-19 infection patient was placed empirically on antibiotics for presumptive community-acquired pneumonia, procalcitonin level is pending Review of Systems REVIEW OF SYSTEMS: CONSTITUTIONAL: Weakness fatigue EYES: Negative. ENT: Negative. CARDIAC: Negative. PULMONARY: As noted in HPI GI: Negative. GENITOURINARY: Negative. MUSCULOSKELETAL: Negative. SKIN: Negative. NEUROPSYCH: Negative. ENDOCRINE: Negative. HEMATOLOGIC: Negative. Past Medical History Past Medical History: COPD, CVA/TIA, Diabetes Mellitus, Hyperlipidemia, Hypertension, Memory Impairment, Myocardial Infarction (SD), Prostate Disorder, Seizure Disorder, Skin Disorder Additional Past Medical History / Comment(s): duodenal ulcer, pain and numbness cyrus legs and feet,pain pump in back, anemia. TIA X3, HEPATITIS C PAST HISTORY, LAST SEIZURE 2012,hiatal hernia Last Myocardial Infarction Date:: POSSIBLE SD 2012 History of Any Multi-Drug Resistant Organisms: None Reported Past Surgical History: Appendectomy, Back Surgery, Heart Catheterization, Orthopedic Surgery Additional Past Surgical History / Comment(s): titanium lyn in lt leg, skin graph to rt 1st and middle finger, lt eardum replaced, cyrus. foot surgery to arch, cataract surgery bilateral with implant,skin graft left leg Past Anesthesia/Blood Transfusion Reactions: No Reported Reaction Past Psychological History: Anxiety, Depression Additional Psychological History / Comment(s): past history of depression Smoking Status: Former smoker Past Alcohol Use History: None Reported Additional Past Alcohol Use History / Comment(s): Pt started smoking in 1974 and is a 1-2ppd smoker Past Drug Use History: None Reported - Past Family History Mother Family Medical History: Diabetes Mellitus, Pulmonary Embolus Father Additional Family Medical History / Comment(s): Father had pain problems/hallucinations. He committed suicide. Medications and Allergies Home Medications Medication Instructions Recorded Confirmed Type Ferrous Sulfate [Iron (65 MG 325 mg PO HS 12/10/20 03/12/24 History Elemental)] Clopidogrel [Plavix] 75 mg PO HS 06/30/21 03/12/24 History Primidone [Mysoline] 50 mg PO HS 06/30/21 03/12/24 History Escitalopram [Lexapro] 20 mg PO HS 02/23/23 03/12/24 History Rosuvastatin Calcium [Crestor] 40 mg PO HS 03/14/23 03/12/24 History Lacosamide [Vimpat] 200 mg PO BID #6 tab 03/16/23 03/12/24 Rx Aspirin EC [Ecotrin Low Dose] 81 mg PO HS 05/22/23 03/12/24 History Multivitamins, Thera [Multivitamin 1 tab PO DAILY 05/22/23 03/12/24 History (formulary)] Insulin Detemir [Levemir Flexpen] 48 units SQ DAILY 06/15/23 03/12/24 History Lactulose [Cephulac] 20 gm PO TID-W/MEALS 09/08/23 03/12/24 History Insulin Lispro [humaLOG Kwikpen] See Protocol SQ ACHS 10/12/23 03/12/24 History Acetaminophen Tab [Tylenol Tab] 1,000 mg PO BID 03/12/24 03/12/24 History Amoxic-Pot Clav 875-125Mg 1 tab PO Q12HR 03/12/24 03/12/24 History [Augmentin 875-125] Formoterol Fumarate [Perforomist] 20 mcg INHALATION RT-BID 03/12/24 03/12/24 History Ipratropium-Albuterol Nebulize 3 ml INHALATION RT-TID 03/12/24 03/12/24 History [Duoneb 0.5 mg-3 mg/3 ml Soln] amLODIPine [Norvasc] 2.5 mg PO BID 03/12/24 03/12/24 History Allergies Allergy/AdvReac Type Severity Reaction Status Date / Time morphine AdvReac Nausea & Verified 03/12/24 17:37 Vomiting Physical Exam Vitals: Vital Signs Temp Pulse Pulse Resp BP BP Pulse Ox 03/13/24 16:32 53 L 03/13/24 16:17 55 L 03/13/24 13:00 98.7 F 64 18 125/63 93 L 03/13/24 09:01 57 L 03/13/24 08:51 56 L 03/13/24 08:50 93 L 03/13/24 08:06 58 L 18 146/71 95 03/13/24 06:22 53 L 16 93 L 03/13/24 04:07 56 L 18 142/63 93 L 03/13/24 01:05 67 18 145/67 96 03/12/24 20:15 56 L 18 133/61 96 03/12/24 18:21 98.0 F 62 18 157/71 96 Intake and Output 03/13/24 03/13/24 03/13/24 06:59 14:59 22:59 Other: Weight 90.718 kg GENERAL EXAM: Alert, 63-year-old white male, in no distress HEAD: Normocephalic and atraumatic EYES: Normal reaction of pupils, equal size. NOSE: Clear with pink turbinates. THROAT: No erythema or exudates. NECK: No masses, no JVD. CHEST: No chest wall deformity. LUNGS: Diminished breath sounds and crackles at the bases no rhonchi no wheezes CVS: S1 and S2 normal with no audible murmur, regular rhythm. No extra heart sounds ABDOMEN: No hepatosplenomegaly, active bowel sounds, no guarding or rigidity. SPINE: No scoliosis or deformity SKIN: No rashes. Previous left calf skin graft noted CENTRAL NERVOUS SYSTEM: Alert and oriented however the patient is slow EXTREMITIES: Lower extremities are atrophied and bilaterally weak. There is no peripheral edema, clubbing, or cyanosis. Peripheral pulses are intact. Results - Laboratory Findings CBC and BMP: 03/12/24 13:45 03/12/24 13:45 PT/INR, D-dimer PT 10.9 sec (10.0-12.5) 03/12/24 13:45 INR 1.0 (<1.2) 03/12/24 13:45 Abnormal lab findings: Abnormal Labs 03/12/24 03/12/24 13:45 13:45 RBC 3.69 L Hgb 12.3 L Hct 37.5 L MCV 101.6 H Plt Count 88 L Lymphocytes # 0.8 L Glucose 188 H - Diagnostic Findings Chest x-ray: image reviewed (As noted in HPI chest x-ray showed minimal basilar atelectasis bilaterally, possible pneumonia) Assessment and Plan Assessment: Impression: Chronic hypoxic respiratory failure Possible community-acquired pneumonia although the clinical history is not very convincing, procalcitonin level is pending History of underlying COPD History of CVA History of seizure disorder Benign essential hypertension Type 2 diabetes History of hepatitis C with history of liver cirrhosis Chronic thrombocytopenia Ex-smoker Recommendation: Continue present antibiotics Resume home meds Continue oxygen and titrate accordingly patient is normally on oxygen at home Check procalcitonin level, discontinue antibiotics if procalcitonin level is normal Continue bronchodilators Will continue to follow. Consider repeat chest x-ray depending on his clinical status and response to treatment Time with Patient: Greater than 30
[2024-03-13] MEDS ORDERED: IPRATROPIUM-ALBUTEROL 3 ML NEB INHALATION PRN (17:05)
[2024-03-13] MEDS ORDERED: DEXTROSE 50% SYRINGE 50 ML IVP PRN ×2 (17:05)
[2024-03-13] MEDS: INSULIN ASPART (NovoLOG) 100 UNIT/ML VIAL SQ SCH (17:22)
--- NOTE | 2024-03-13 17:29 | P.HPIM ---
History of Present Illness H&P Date: 03/13/24 Chief Complaint: Short of breath times a couple days Chief Complaint: Progressive dyspnea This is a 63-year-old gentleman past medical history significant for COPD, atelectasis, pneumonia, former nicotine dependence, hypertension, hyperlipidemia, diabetes mellitus, CVA-resides in a wheelchair and multiple other medical issues presented to the ER with progressive dyspnea overall couple days ,nonproductive cough and fevers. Denies nausea, vomiting or diarrhea. Chronic back pain, wearing pain pump. Denies chest pain, palpitations. No family currently at bedside .Tmax 101.3, normal WBC, hemoglobin 12.3, platelets 88. Electrolytes and renal function stable. maintaining O2 sats in the 90s on 2 L nasal cannula. Viral studies negative. , Chest x-ray reporting similar haziness/opacity in the right lung base, low lung volumes maintained on empiric Rocephin and azithromycin. Review of Systems ROS Other: All systems not noted in ROS Statement are negative. ROS Statement: Those systems with pertinent positive or pertinent negative responses have been documented in the HPI. Past Medical History Past Medical History: COPD, CVA/TIA, Diabetes Mellitus, Hyperlipidemia, Hypertension, Memory Impairment, Myocardial Infarction (OR), Prostate Disorder, Seizure Disorder, Skin Disorder Additional Past Medical History / Comment(s): duodenal ulcer, pain and numbness cyrus legs and feet,pain pump in back, anemia. TIA X3, HEPATITIS C PAST HISTORY, LAST SEIZURE 2012,hiatal hernia Last Myocardial Infarction Date:: POSSIBLE OR 2012 History of Any Multi-Drug Resistant Organisms: None Reported Past Surgical History: Appendectomy, Back Surgery, Heart Catheterization, Orthopedic Surgery Additional Past Surgical History / Comment(s): titanium lyn in lt leg, skin graph to rt 1st and middle finger, lt eardum replaced, cyrus. foot surgery to arch, cataract surgery bilateral with implant,skin graft left leg Past Anesthesia/Blood Transfusion Reactions: No Reported Reaction Past Psychological History: Anxiety, Depression Additional Psychological History / Comment(s): past history of depression Smoking Status: Former smoker Past Alcohol Use History: None Reported Additional Past Alcohol Use History / Comment(s): Pt started smoking in 1974 and is a 1-2ppd smoker Past Drug Use History: None Reported - Past Family History Mother Family Medical History: Diabetes Mellitus, Pulmonary Embolus Father Additional Family Medical History / Comment(s): Father had pain problems/hallucinations. He committed suicide. Medications and Allergies Home Medications Medication Instructions Recorded Confirmed Type Ferrous Sulfate [Iron (65 MG 325 mg PO HS 12/10/20 03/12/24 History Elemental)] Clopidogrel [Plavix] 75 mg PO HS 06/30/21 03/12/24 History Primidone [Mysoline] 50 mg PO HS 06/30/21 03/12/24 History Escitalopram [Lexapro] 20 mg PO HS 02/23/23 03/12/24 History Rosuvastatin Calcium [Crestor] 40 mg PO HS 03/14/23 03/12/24 History Lacosamide [Vimpat] 200 mg PO BID #6 tab 03/16/23 03/12/24 Rx Aspirin EC [Ecotrin Low Dose] 81 mg PO HS 05/22/23 03/12/24 History Multivitamins, Thera [Multivitamin 1 tab PO DAILY 05/22/23 03/12/24 History (formulary)] Insulin Detemir [Levemir Flexpen] 48 units SQ DAILY 06/15/23 03/12/24 History Lactulose [Cephulac] 20 gm PO TID-W/MEALS 09/08/23 03/12/24 History Insulin Lispro [humaLOG Kwikpen] See Protocol SQ ACHS 10/12/23 03/12/24 History Acetaminophen Tab [Tylenol Tab] 1,000 mg PO BID 03/12/24 03/12/24 History Amoxic-Pot Clav 875-125Mg 1 tab PO Q12HR 03/12/24 03/12/24 History [Augmentin 875-125] Formoterol Fumarate [Perforomist] 20 mcg INHALATION RT-BID 03/12/24 03/12/24 History Ipratropium-Albuterol Nebulize 3 ml INHALATION RT-TID 03/12/24 03/12/24 History [Duoneb 0.5 mg-3 mg/3 ml Soln] amLODIPine [Norvasc] 2.5 mg PO BID 03/12/24 03/12/24 History Allergies Allergy/AdvReac Type Severity Reaction Status Date / Time morphine AdvReac Nausea & Verified 03/12/24 17:37 Vomiting Physical Exam Vitals: Vital Signs Temp Pulse Pulse Resp BP BP Pulse Ox 03/13/24 13:00 98.7 F 64 18 125/63 93 L 03/13/24 09:01 57 L 03/13/24 08:51 56 L 03/13/24 08:50 93 L 03/13/24 08:06 58 L 18 146/71 95 03/13/24 06:22 53 L 16 93 L 03/13/24 04:07 56 L 18 142/63 93 L 03/13/24 01:05 67 18 145/67 96 03/12/24 20:15 56 L 18 133/61 96 03/12/24 18:21 98.0 F 62 18 157/71 96 03/12/24 16:34 60 16 132/58 93 L Intake and Output 03/13/24 03/13/24 03/13/24 06:59 14:59 22:59 Other: Weight 90.718 kg General: Alert and oriented 2-3, sitting up in bed, no acute distress, slightly converses-baseline Head: atraumatic normocephalic. Eyes PERRL, left eye bloodshot-( coughing) without any drainage, mucous membranes moist Respiratory: Unlabored, equal air entry, scattered right-sided rhonchi Cardiovascular: S1-S2, regular rhythm, bradycardic, no audible murmur Abdominal: Soft, nondistended, nontender,no guarding or rebound. Neuroogic: CN II-XII intact, no focal deficits. Prior [id number]. Skin: warm dry, left buttock chronic wound ulceration, stage II, left calf skin graft Results CBC & Chem 7: 03/12/24 13:45 03/12/24 13:45 Thrombosis Risk Factor Assmnt - Choose All That Apply Any of the Below Risk Factors Present?: Yes Each Factor Represents 1 point: Obesity (BMI >25) Other Risk Factors: Yes Each Risk Factor Represents 2 Points: Age 61-74 years Other congenital or acquired thrombophilia - If yes, enter type in comment: No Thrombosis Risk Factor Assessment Total Risk Factor Score: 3 Thrombosis Risk Factor Assessment Level: Moderate Risk Assessment and Plan Assessment: Possible community-acquired pneumonia, procalcitonin pending Acute hypoxic respiratory failure, denies wearing oxygen at home COPD,underlying Chronic Thrombocytopenia, 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 Procalcitonin pending. maintain antibiotics. Aggressive pulmonary toileting with nebulized bronchodilators. The impression and plan of care has been dictated as directed. : I performed a history and examination of this patient, discussed the same with the dictator. I agree with the dictator's note ,documented as a scribe. Any additional findings or plans will be noted.
[2024-03-13] MEDS: INSULIN DETEMIR (LEVEMIR) 100 UNIT/ML SYR SQ SCH (18:28)
[2024-03-13] MEDS: LACTULOSE 20 GM/30 ML CUP PO SCH (18:28)
[2024-03-13] MEDS: FORMOTEROL FUMARATE 20 MCG/2 ML NEBU INHALATION SCH (19:56)
[2024-03-13] MEDS: ATORVASTATIN 80 MG TAB PO SCH (20:24)
[2024-03-13] MEDS: ASPIRIN 81 MG PO SCH (20:24)
[2024-03-13] MEDS: PRIMIDONE 50 MG TAB PO SCH (20:24)
[2024-03-13] MEDS: FERROUS SULFATE 325 MG TAB PO SCH (20:24)
[2024-03-13] MEDS: amLODIPine 2.5 MG TAB PO SCH (20:24)
[2024-03-13] MEDS: ESCITALOPRAM 20 MG TAB PO SCH (20:24)
[2024-03-13] MEDS: CLOPIDOGREL 75 MG TAB PO SCH (20:24)
[2024-03-13] MEDS: LACOSAMIDE 50 MG TABLET PO SCH (20:47)
--- NOTE | 2024-03-14 12:29 | P.CONS ---
History of Present Illness - Reason for Consult Consult date: 03/14/24 wound care - History of Present Illness This is a 63-year-old patient with past medical history significant for COPD, CVA, diabetes, hyperlipidemia, hypertension, OR, BPH, seizure disorder and a former smoker. Patient is being seen on 1S for nonhealing ulceration to the left buttocks. Patient has this due to stage II pressure ulcer of the left buttocks measuring 0.1 x 0.1 x 0.1 cm with minimal amount of slough and nonvia ble tissue present granulation seen. The wound edges are attached to the wound base. No tunneling or undermining noted.Patient states that the ulceration started few months ago. His has been managing it with dressings they have at home. Review Of Systems: Constitutional: No fever, no chills, no night sweats. No weight change. No weakness, fatigue or lethargy. No daytime sleepiness. Integumentary:reports wounds, no lesions. No rash or pruritus. No unusual bruising. No change in hair or nails. Physical exam: General Appearance: Alert, cooperative, no distress, appears stated age. Skin: See HPI all other Skin color, texture, tugor normal, no rashes or lesions. Neurologic: Alert oriented x3 Assessment: 1. Stage II pressure ulcer left buttocks 2. Diabetic ulcer of other site of skin Plan: 1. Apply zinc barreir cream to the site. Thank you for the consultation any questions please contact the wound care center DNP note has been reviewed and discussed with Dr. Heath and the impression and plan of care has been directed as dictated. Past Medical History Past Medical History: COPD, CVA/TIA, Diabetes Mellitus, Hyperlipidemia, Hypertension, Memory Impairment, Myocardial Infarction (OR), Prostate Disorder, Seizure Disorder, Skin Disorder Additional Past Medical History / Comment(s): duodenal ulcer, pain and numbness cyrus legs and feet,pain pump in back, anemia. TIA X3, HEPATITIS C PAST HISTORY, LAST SEIZURE 2012,hiatal hernia Last Myocardial Infarction Date:: POSSIBLE OR 2012 History of Any Multi-Drug Resistant Organisms: None Reported Past Surgical History: Appendectomy, Back Surgery, Heart Catheterization, Orthopedic Surgery Additional Past Surgical History / Comment(s): titanium lyn in lt leg, skin graph to rt 1st and middle finger, lt eardum replaced, cyrus. foot surgery to arch, cataract surgery bilateral with implant,skin graft left leg Past Anesthesia/Blood Transfusion Reactions: No Reported Reaction Past Psychological History: Anxiety, Depression Additional Psychological History / Comment(s): past history of depression Smoking Status: Former smoker Past Alcohol Use History: None Reported Additional Past Alcohol Use History / Comment(s): Pt started smoking in 1974 and is a 1-2ppd smoker Past Drug Use History: None Reported - Past Family History Mother Family Medical History: Diabetes Mellitus, Pulmonary Embolus Father Additional Family Medical History / Comment(s): Father had pain problems/lopez ucinations. He committed suicide. Medications and Allergies Home Medications Medication Instructions Recorded Confirmed Type Ferrous Sulfate [Iron (65 MG 325 mg PO HS 12/10/20 03/12/24 History Elemental)] Clopidogrel [Plavix] 75 mg PO HS 06/30/21 03/12/24 History Primidone [Mysoline] 50 mg PO HS 06/30/21 03/12/24 History Escitalopram [Lexapro] 20 mg PO HS 02/23/23 03/12/24 History Rosuvastatin Calcium [Crestor] 40 mg PO HS 03/14/23 03/12/24 History Lacosamide [Vimpat] 200 mg PO BID #6 tab 03/16/23 03/12/24 Rx Aspirin EC [Ecotrin Low Dose] 81 mg PO HS 05/22/23 03/12/24 History Multivitamins, Thera [Multivitamin 1 tab PO DAILY 05/22/23 03/12/24 History (formulary)] Insulin Detemir [Levemir Flexpen] 48 units SQ DAILY 06/15/23 03/12/24 History Lactulose [Cephulac] 20 gm PO TID-W/MEALS 09/08/23 03/12/24 History Insulin Lispro [humaLOG Kwikpen] See Protocol SQ ACHS 10/12/23 03/12/24 History Acetaminophen Tab [Tylenol Tab] 1,000 mg PO BID 03/12/24 03/12/24 History Amoxic-Pot Clav 875-125Mg 1 tab PO Q12HR 03/12/24 03/12/24 History [Augmentin 875-125] Formoterol Fumarate [Perforomist] 20 mcg INHALATION RT-BID 03/12/24 03/12/24 History Ipratropium-Albuterol Nebulize 3 ml INHALATION RT-TID 03/12/24 03/12/24 History [Duoneb 0.5 mg-3 mg/3 ml Soln] amLODIPine [Norvasc] 2.5 mg PO BID 03/12/24 03/12/24 History Allergies Allergy/AdvReac Type Severity Reaction Status Date / Time morphine AdvReac Nausea & Verified 03/12/24 17:37 Vomiting Physical Exam Vitals: Vital Signs Temp Pulse Pulse Resp BP Pulse Ox 03/14/24 12:17 60 03/14/24 12:04 60 03/14/24 08:49 60 03/14/24 08:39 62 03/14/24 08:00 97.8 F 61 16 127/75 98 03/14/24 02:00 98 F 60 14 137/68 98 03/13/24 20:06 55 L 03/13/24 20:05 55 L 03/13/24 19:57 54 L 03/13/24 19:35 98.7 F 59 L 16 130/73 96 03/13/24 16:32 53 L 03/13/24 16:17 55 L 03/13/24 13:00 98.7 F 64 18 125/63 93 L Intake and Output 03/13/24 03/14/24 03/14/24 22:59 06:59 14:59 Output Total 950 Balance -950 Output: Urine 950 Other: Voiding Method External Catheter External Catheter # Voids 2 # Bowel Movements 2 Results CBC & Chem 7: 03/12/24 13:45 03/12/24 13:45 Labs: Microbiology - Last 24 Hours (Table) 03/12/24 17:00 Blood Culture - Preliminary Blood Assessment and Plan (1) Stage II pressure ulcer of sacral region Current Visit: No Status: Acute Code(s): L89.152 - PRESSURE ULCER OF SACRAL REGION, STAGE 2 SNOMED Code(s): 23349531730939 (2) Type 2 diabetes mellitus with other skin ulcer Current Visit: No Status: Acute Code(s): E11.622 - TYPE 2 DIABETES MELLITUS WITH OTHER SKIN ULCER; L98.499 - NON-PRESSURE CHRONIC ULCER OF SKIN OF SITES W UNSP SEVERITY SNOMED Code(s): 687443786207683
[2024-03-14] MEDS: ZINC OXIDE PASTE (Z-GUARD) 1 APPLIC TOPICAL SCH (12:57)
--- NOTE | 2024-03-14 13:30 | P.PN ---
Subjective Progress Note Date: 03/14/24 Principal diagnosis: Chronic hypoxic respiratory failure This is a 64-year-old white male familiar to my service, patient is a poor historian, but he had multiple admissions in the past for COPD, congestive heart failure, and recurrent pneumonia, patient has not been back in the hospital since November of 2023 patient lives at home, he is on home oxygen, he has known history of multiple medical problems including COPD, CVA, type 2 diabetes, hypertension, coronary artery disease and previous [place], history of duodenal ulcer, history of chronic back pain and chronic pain syndrome, patient had previous history of seizures, and history of hepatitis C. Patient was brought into the ER today with chief complaint of shortness of breath, fever, and intermittent nonproductive cough. Chest x-ray on admission showed atelectasis, possible pneumonia, however considering the patient was febrile on admission, and considering his symptoms he was admitted with impression of pneumonia.Labs showed no evidence of leukocytosis, basic metabolic profile is normal.Patient tested negative for influenza AB and negative for Legionella, negative for RSV and negative for COVID-19 infection patient was placed empirically on antibiotics for presumptive community-acquired pneumonia, procalcitonin level is pending Patient was evaluated today on 03/14/2024, patient is doing well, remains on oxyg en, he has intermittent cough, no fever, no chills, no hemoptysis, no chest pain. Procalcitonin level is 0.14, normal, hence, I doubt pneumonia at this point on admission the patient did have fever but did not have leukocytosis. I believe the presentation is mostly a presentation of tracheobronchitis and chronic basilar atelectasis Objective - Vital Signs Vital signs: Vital Signs Temp 98.5 F 03/14/24 13:20 Pulse 58 L 03/14/24 13:20 Resp 16 03/14/24 13:20 BP 119/68 03/14/24 13:20 Pulse Ox 96 03/14/24 13:20 FiO2 Intake & Output 03/13/24 03/14/24 03/14/24 18:59 06:59 18:59 Output Total 950 Balance -950 Weight 90.718 kg Output: Urine 950 Other: Voiding Method External Catheter External Catheter # Voids 2 # Bowel Movements 2 - Exam GENERAL EXAM: Alert, 63-year-old white male, in no distress HEAD: Normocephalic and atraumatic EYES: Normal reaction of pupils, equal size. NOSE: Clear with pink turbinates. THROAT: No erythema or exudates. NECK: No masses, no JVD. CHEST: No chest wall deformity. LUNGS: Diminished breath sounds and crackles at the bases no rhonchi no wheezes CVS: S1 and S2 normal with no audible murmur, regular rhythm. No extra heart sounds ABDOMEN: No hepatosplenomegaly, active bowel sounds, no guarding or rigidity. SPINE: No scoliosis or deformity SKIN: No rashes. Previous left calf skin graft noted CENTRAL NERVOUS SYSTEM: Alert and oriented however the patient is slow EXTREMITIES: Lower extremities are atrophied and bilaterally weak. There is no peripheral edema, clubbing, or cyanosis. Peripheral pulses are intact. - Labs CBC & Chem 7: 03/12/24 13:45 03/12/24 13:45 Labs: Microbiology - Last 24 Hours (Table) 03/12/24 17:00 Blood Culture - Preliminary Blood Assessment and Plan Assessment: Impression: Chronic hypoxic respiratory failure Acute tracheobronchitis and bibasilar atelectasis. Possible pneumonia, but clinically felt to be less likely History of underlying COPD History of CVA History of seizure disorder Benign essential hypertension Type 2 diabetes History of hepatitis C with history of liver cirrhosis Chronic thrombocytopenia Ex-smoker Recommendation: Continue present antibiotics Resume home meds Continue oxygen and titrate accordingly patient is normally on oxygen at home Could transition to oral antibiotics Could consider discharge planning and follow-up on outpatient basis Continue bronchodilators Time with Patient: Less than 30
--- NOTE | 2024-03-14 17:24 | P.PN ---
Subjective Progress Note Date: 03/14/24 H&P Date: 03/13/24 Chief Complaint: Short of breath times a couple days Chief Complaint: Progressive dyspnea This is a 63-year-old gentleman past medical history significant for COPD, atelectasis, pneumonia, former nicotine dependence, hypertension, hyperlipidemia, diabetes mellitus, CVA-resides in a wheelchair and multiple oth er medical issues presented to the ER with progressive dyspnea overall couple days ,nonproductive cough and fevers. Denies nausea, vomiting or diarrhea. Chronic back pain, wearing pain pump. Denies chest pain, palpitations. No family currently at bedside .Tmax 101.3, normal WBC, hemoglobin 12.3, platelets 88. Electrolytes and renal function stable. maintaining O2 sats in the 90s on 2 L nasal cannula. Viral studies negative. , Chest x-ray reporting similar haziness/opacity in the right lung base, low lung volumes maintained on empiric Rocephin and azithromycin. 03/14/24 maintained on ceftriaxone, azithromycin. procalcitonin normal, maintaining O2 sats in the 90s on 4 L nasal cannula. Afebrile, preliminary blood cultures reporting no growth after 24 hours. vague historian. Wound care evaluated by wound care team with recommendations noted and appreciated. Objective - Vital Signs Vital signs: Vital Signs Temp 98.5 F 03/14/24 13:20 Pulse 60 03/14/24 16:43 Resp 16 03/14/24 13:20 BP 119/68 03/14/24 13:20 Pulse Ox 96 03/14/24 13:20 FiO2 Intake & Output 03/13/24 03/14/24 03/14/24 18:59 06:59 18:59 Output Total 950 Balance -950 Weight 90.718 kg Output: Urine 950 Other: Voiding Method External Catheter External Catheter # Voids 2 # Bowel Movements 2 - Exam General: Alert and oriented 2-3, sitting up in bed, no acute distress Head: atraumatic normocephalic. Eyes PERRL, mucous membranes moist Respiratory: Unlabored, equal air entry, scattered fine expiratory wheezing Cardiovascular: S1-S2, regular rhythm and rate, no audible murmur Abdominal: Soft, nondistended, nontender,no guarding or rebound. Neuroogic: CN II-XII intact, no focal deficits. Prior [id number]. Skin: warm dry, left buttock chronic wound ulceration, stage II, left calf skin graft - Labs CBC & Chem 7: 03/12/24 13:45 03/12/24 13:45 Labs: Abnormal Lab Results - Last 24 Hours (Table) 03/12/24 Range/Units 10:57 Hemoglobin A1c 7.2 H (<=6.0) % Microbiology - Last 24 Hours (Table) 03/12/24 17:00 Blood Culture - Preliminary Blood Assessment and Plan Assessment: Possible community-acquired pneumonia, procalcitonin normal, clinically less likely , acute tracheobronchitis and bibasilar atelectasis as per pulmonary. Acute hypoxic respiratory failure, denies wearing oxygen at home. 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 Zithromax has completed, continue on ceftriaxone, aggressive pulmonary toileting with nebulized bronchodilators. Titrate O2. Discharge planning in progress for tomorrow pending final DC recommendations and clearance per pulmonary. The impression and plan of care has been dictated as directed. : I performed a history and examination of this patient, discussed the same with the dictator. I agree with the dictator's note ,documented as a scribe. Any additional findings or plans will be noted.
[2024-03-15 01:40] VITALS: TEMP 97.9
[2024-03-15 08:47] VITALS: BP 148/74; PULSE 63
[2024-03-15 09:20] VITALS: RESP 18
--- NOTE | 2024-03-15 13:23 | P.PN ---
Subjective Progress Note Date: 03/15/24 Principal diagnosis: Chronic hypoxic respiratory failure This is a 64-year-old white male familiar to my service, patient is a poor historian, but he had multiple admissions in the past for COPD, congestive heart failure, and recurrent pneumonia, patient has not been back in the hospital since November of 2023 patient lives at home, he is on home oxygen, he has known history of multiple medical problems including COPD, CVA, type 2 diabetes, hypertension, coronary artery disease and previous [place], history of duodenal ulcer, history of chronic back pain and chronic pain syndrome, patient had previous history of seizures, and history of hepatitis C. Patient was brought into the ER today with chief complaint of shortness of breath, fever, and intermittent nonproductive cough. Chest x-ray on admission showed atelectasis, possible pneumonia, however considering the patient was febrile on admission, and considering his symptoms he was admitted with impression of pneumonia.Labs showed no evidence of leukocytosis, basic metabolic profile is normal.Patient tested negative for influenza AB and negative for Legionella, negative for RSV and negative for COVID-19 infection patient was placed empirically on antibiotics for presumptive community-acquired pneumonia, procalcitonin level is pending Patient was evaluated today on 03/14/2024, patient is doing well, remains on oxyg en, he has intermittent cough, no fever, no chills, no hemoptysis, no chest pain. Procalcitonin level is 0.14, normal, hence, I doubt pneumonia at this point on admission the patient did have fever but did not have leukocytosis. I believe the presentation is mostly a presentation of tracheobronchitis and chronic basilar atelectasis Patient was evaluated on 03/15/2024, patient seems to be doing well, remains on oxygen, he has minimal cough, no fever no chills no hemoptysis no chest pain. Patient is being considered for discharge today, and he is being treated mostly for tracheobronchitis and chronic bibasilar atelectasis. No clear-cut evidence of pneumonia noted on this examination and he had relatively unremarkable procalcitonin level. Objective - Vital Signs Vital signs: Vital Signs Temp 97.9 F 03/15/24 08:00 Pulse 68 03/15/24 08:31 Resp 18 03/15/24 08:00 BP 148/74 03/15/24 08:00 Pulse Ox 96 03/15/24 09:38 FiO2 Intake & Output 03/14/24 03/15/24 03/15/24 18:59 06:59 18:59 Output Total 1000 500 Balance -1000 -500 Output: Urine 1000 500 Other: Voiding Method External Catheter External Catheter External Catheter - Exam GENERAL EXAM: Alert, 63-year-old white male, in no distress HEAD: Normocephalic and atraumatic EYES: Normal reaction of pupils, equal size. NOSE: Clear with pink turbinates. THROAT: No erythema or exudates. NECK: No masses, no JVD. CHEST: No chest wall deformity. LUNGS: Diminished breath sounds, no crackles rhonchi or wheezes CVS: S1 and S2 normal with no audible murmur, regular rhythm. No extra heart sounds ABDOMEN: No hepatosplenomegaly, active bowel sounds, no guarding or rigidity. SPINE: No scoliosis or deformity SKIN: No rashes. Previous left calf skin graft noted CENTRAL NERVOUS SYSTEM: Alert and oriented however the patient is slow EXTREMITIES: Lower extremities are atrophied and bilaterally weak. There is no peripheral edema, clubbing, or cyanosis. Peripheral pulses are intact. - Labs CBC & Chem 7: 03/12/24 13:45 03/12/24 13:45 Labs: Abnormal Lab Results - Last 24 Hours (Table) 03/12/24 Range/Units 10:57 Hemoglobin A1c 7.2 H (<=6.0) % Microbiology - Last 24 Hours (Table) 03/12/24 17:00 Blood Culture - Preliminary Blood Assessment and Plan Assessment: Impression: Chronic hypoxic respiratory failure Acute tracheobronchitis and bibasilar atelectasis. Pneumonia was basically ruled out. History of underlying COPD History of CVA History of seizure disorder Benign essential hypertension Type 2 diabetes History of hepatitis C with history of liver cirrhosis Chronic thrombocytopenia Ex-smoker Recommendation: Continue with discharge planning Resume home meds Continue oxygen and titrate accordingly patient is normally on oxygen at home Continue bronchodilators For discharge from our perspective Time with Patient: Less than 30
--- NOTE | 2024-03-16 09:21 | P.DS ---
Providers Date of admission: 03/12/24 16:13 Expected date of discharge: 03/15/24 Attending physician: Dmitriy Liu MD Consults: 03/13/24 09:10 Consult Physician Routine Consulting Provider: Cha Burnett Consult Reason/Comments: hypoxia Do you want consulting provider notified?: Yes Primary care physician: Dmitriy Liu MD Hospital Course: Final Diagnoses: Acute tracheobronchitis and bibasilar atelectasis Pneumonia, ruled out as per pulmonary Chronic hypoxic respiratory failure, patient confirms that he indeed has O2 at home. COPD,underlying Chronic Thrombocytopenia, 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 Diabetes mellitus type 2, hemoglobin A1c 7.2 left buttock wound, stage II, present on admission, follows at the wound care center Hypertension History of seizure disorder History of CVA with memory impairment Anxiety/depression Former nicotine dependence Chronic pain syndrome Hospital course:This is a 63-year-old gentleman past medical history significant for COPD, atelectasis, pneumonia, former nicotine dependence, hypertension, hyperlipidemia, diabetes mellitus, CVA-resides in a wheelchair and multiple other medical issues presented to the ER with progressive dyspnea overall couple days ,nonproductive cough and fevers. Denies nausea, vomiting or diarrhea. Chronic back pain, wearing pain pump. Denies chest pain, palpitations. No family currently at bedside .Tmax 101.3, normal WBC, hemoglobin 12.3, platelets 88. Electrolytes and renal function stable. maintaining O2 sats in the 90s on 2 L nasal cannula. Viral studies negative. , Chest x-ray reporting similar haziness/opacity in the right lung base, low lung volumes maintained on empiric Rocephin and azithromycin. 03/14/24 maintained on ceftriaxone, azithromycin. procalcitonin normal, maintaining O2 sats in the 90s on 4 L nasal cannula. Afebrile, preliminary blood cultures reporting no growth after 24 hours. vague historian. Wound care evaluated by wound care team with recommendations noted and appreciated. Zithromax has completed, continue on ceftriaxone, aggressive pulmonary toileting with nebulized bronchodilators. Titrate O2. Discharge planning in progress for tomorrow pending final DC recommendations and clearance per pulmonary. Significant clinical improvement. Maintaining O2 sats in the high 90s on 4 L nasal cannula which can be further titrated down. Minimal cough. Lungs diminished with fine right basilar crackles ,afebrile. Denies chest pain, palpitations or increased shortness of breath. Patient does have oxygen at home, reports he uses it as needed. Cleared by pulmonary for discharge. Patient will be discharged home today in a stable condition with guarded prognosis. The impression and plan of care has been dictated as directed. : I performed a history and examination of this patient, discussed the same with the dictator. I agree with the dictator's note ,documented as a scribe. Any additional findings or plans will be noted. Patient Condition at Discharge: Stable Plan - Discharge Summary Discharge Rx Participant: No New Discharge Prescriptions: Continue Ferrous Sulfate [Iron (65 MG Elemental)] 325 mg PO HS Primidone [Mysoline] 50 mg PO HS Lacosamide [Vimpat] 200 mg PO BID #6 tab Insulin Lispro [humaLOG Kwikpen] See Protocol SQ ACHS amLODIPine [Norvasc] 2.5 mg PO BID Ipratropium-Albuterol Nebulize [Duoneb 0.5 mg-3 mg/3 ml Soln] 3 ml INHALATION RT-TID Clopidogrel [Plavix] 75 mg PO HS Escitalopram [Lexapro] 20 mg PO HS Rosuvastatin Calcium [Crestor] 40 mg PO HS Aspirin EC [Ecotrin Low Dose] 81 mg PO HS Multivitamins, Thera [Multivitamin (formulary)] 1 tab PO DAILY Insulin Detemir [Levemir Flexpen] 48 units SQ DAILY Lactulose [Cephulac] 20 gm PO TID-W/MEALS Acetaminophen Tab [Tylenol] 1,000 mg PO BID Formoterol Fumarate [Perforomist] 20 mcg INHALATION RT-BID Amoxic-Pot Clav 875-125Mg [Augmentin 875-125] 1 tab PO Q12HR 3 Days #6 tab Discharge Medication List Ferrous Sulfate [Iron (65 MG Elemental)] 325 mg PO HS 12/10/20 [History] Clopidogrel [Plavix] 75 mg PO HS 06/30/21 [History] Primidone [Mysoline] 50 mg PO HS 06/30/21 [History] Escitalopram [Lexapro] 20 mg PO HS 02/23/23 [History] Rosuvastatin Calcium [Crestor] 40 mg PO HS 03/14/23 [History] Lacosamide [Vimpat] 200 mg PO BID #6 tab 03/16/23 [Rx] Aspirin EC [Ecotrin Low Dose] 81 mg PO HS 05/22/23 [History] Multivitamins, Thera [Multivitamin (formulary)] 1 tab PO DAILY 05/22/23 [History] Insulin Detemir [Levemir Flexpen] 48 units SQ DAILY 06/15/23 [History] Lactulose [Cephulac] 20 gm PO TID-W/MEALS 09/08/23 [History] Insulin Lispro [humaLOG Kwikpen] See Protocol SQ ACHS 10/12/23 [History] Acetaminophen Tab [Tylenol] 1,000 mg PO BID 03/12/24 [History] Formoterol Fumarate [Perforomist] 20 mcg INHALATION RT-BID 03/12/24 [History] Ipratropium-Albuterol Nebulize [Duoneb 0.5 mg-3 mg/3 ml Soln] 3 ml INHALATION RT-TID 03/12/24 [History] amLODIPine [Norvasc] 2.5 mg PO BID 03/12/24 [History] Amoxic-Pot Clav 875-125Mg [Augmentin 875-125] 1 tab PO Q12HR 3 Days #6 tab 03/15/24 [Rx] Follow up Appointment(s)/Referral(s): Dmitriy Liu MD [Primary Care Provider] - 1 Week Keke Bravo NPC [Nurse Practitioner] - 1 Week Patient Instructions/Handouts: Pneumonitis (DC) Activity/Diet/Wound Care/Special Instructions: Patient requires a [place] lift because he requires at least two people to get out of bed to complete their ADLs or otherwise patient would be bed bound. R/t Inability to ambulate, CVA. Has 1 Caregiver in the home 04/01 and 1 caregiver that helps occasionally. PT/OT recommend [place]. Wound care as previously advised per wound care team. Follow-up with wound care center. Discharge Disposition: HOME SELF-CARE
[2024-03-17 11:56] LABS: Glucose,Whole Blood 170 mg/dL (70-110)
[2024-03-17 11:56] LABS: Glucose,Whole Blood 135 mg/dL (70-110)
[2024-03-17 11:56] LABS: Glucose,Whole Blood 198 mg/dL (70-110)
[2024-03-17 11:57] LABS: Glucose,Whole Blood 120 mg/dL (70-110)
[2024-03-17 11:57] LABS: Glucose,Whole Blood 143 mg/dL (70-110)
[2024-03-17 11:57] LABS: Glucose,Whole Blood 154 mg/dL (70-110)
[2024-03-17 11:57] LABS: Glucose,Whole Blood 126 mg/dL (70-110)
== END 2024-03-15 09:53 | disposition home or self-care (01) ==
LOC: EC 13:16 → 4SSUR 16:13 → INTOOBSV 16:13 → 4SSUR 17:25 → 1SOBS 03-13 11:20 → 4SSUR 03-13 11:20 → UNDODISIN 03-15 09:53
PROVIDERS: ADMIT Family Medicine; ATTEND Internal Medicine
DX: J20.9 Acute bronchitis, unspecified (principal); J98.11 Atelectasis; J96.21 Acute and chronic respiratory failure with hypoxia; J44.89 Other specified chronic obstructive pulmonary disease; D69.6 Thrombocytopenia, unspecified; E11.622 Type 2 diabetes mellitus with other skin ulcer; L89.152 Pressure ulcer of sacral region, stage 2; L89.322 Pressure ulcer of left buttock, stage 2; E78.5 Hyperlipidemia, unspecified; F32.A Depression, unspecified; F41.9 Anxiety disorder, unspecified; G40.909 Epilepsy, unspecified, not intractable, without status epilepticus; G89.4 Chronic pain syndrome; K74.60 Unspecified cirrhosis of liver; N40.0 Benign prostatic hyperplasia without lower urinary tract symptoms; I25.2 Old myocardial infarction; Z79.4 Long term (current) use of insulin; Z99.81 Dependence on supplemental oxygen; Z79.51 Long term (current) use of inhaled steroids; Z79.82 Long term (current) use of aspirin; Z79.899 Other long term (current) drug therapy; Z86.73 Personal history of transient ischemic attack (TIA), and cerebral infarction without residual deficits; Z87.01 Personal history of pneumonia (recurrent); Z87.891 Personal history of nicotine dependence; Z86.19 Personal history of other infectious and parasitic diseases; Z88.5 Allergy status to narcotic agent; Z79.02 Long term (current) use of antithrombotics/antiplatelets
CPT/HCPCS: 96361 ×2; 96366 ×4; 96365; 96367; 99291; 36415; 94640 ×6; 94760; 93005; 83880; 80053; 87449; 83605; 83735; 84484; 85025; 85610; 85730; 87040; 83036; 84145; 87636; 71045; 71046; G0378 ×4; J0456; J0696 ×4; J0131; 96368

== ENCOUNTER 2024-04-05 12:47 | Observation (INO) | payer OTHER ==
[2024-04-05 13:23] LABS: Basophils % (A) 0 %; Eosinophils # (A) 0.1 k/uL (0-0.7); Eosinophils % (A) 1 %; HGB 12.5 gm/dL (13.0-17.5); Lymphocytes # (A) 0.8 k/uL (1.0-4.8); Lymphocytes % (A) 11 %; MCH 32.8 pg (25.0-35.0); MCHC 33.8 g/dL (31.0-37.0); MCV 97.1 fL (80.0-100.0); Mean Platelet Volume 8.1; Monocytes # (A) 0.4 k/uL (0-1.0); Monocytes % (A) 6 %; Neutrophils # (A) 5.2 k/uL (1.3-7.7); Neutrophils % (A) 79 %; RBC 3.81 m/uL (4.30-5.90); RDW 13.7 % (11.5-15.5); WBC 6.6 k/uL (3.8-10.6)
[2024-04-05] MEDS: SODIUM CHLORIDE 0.9% 1,000 ML IV STA (13:26)
[2024-04-05] MEDS: ACETAMINOPHEN TAB 500 MG TAB PO STA (13:26)
[2024-04-05 13:32] LABS: Partial Thromboplastin Time 24.5 sec (22.0-30.0); Prothrombin Time 10.9 sec (10.0-12.5)
[2024-04-05] MEDS: IBUPROFEN 800 MG TAB PO STA (13:33)
[2024-04-05 13:38] LABS: ALT 17 U/L (4-49); African American GFR (CKD) >90 (>60 ml/min/1.73 sqM); Albumin 4.2 g/dL (3.5-5.0); Anion Gap 6 mmol/L; Blood Urea Nitrogen 17 mg/dL (9-20); Calcium 9.1 mg/dL (8.4-10.2); Carbon Dioxide 29 mmol/L (22-30); Chloride 104 mmol/L (98-107); Glucose 147 mg/dL (74-99); Non-African American GFR(CKD) >90 (>60 ml/min/1.73 sqM); Sodium 139 mmol/L (137-145); Total Bilirubin 0.8 mg/dL (0.2-1.3); Total Protein 7.4 g/dL (6.3-8.2)
[2024-04-05 13:44] LABS: AST 33 U/L (17-59); Alkaline Phosphatase 44 U/L (38-126); Magnesium 1.8 mg/dL (1.6-2.3); Potassium 4.7 mmol/L (3.5-5.1)
[2024-04-05 13:45] LABS: NT-Pro-B-Type Natriuretic Pept 191 pg/mL
[2024-04-05 13:54] LABS: Appearance,Urine Clear (Clear); Bilirubin,Urine Negative (Negative); Blood,Urine Negative (Negative); Color,Urine Light Yellow; Glucose,Urine (UA) Negative (Negative); Ketones,Urine Negative (Negative); Leukocyte Esterase,Urine Negative (Negative); Nitrite,Urine Negative (Negative); Protein,Urine Trace (Negative); Specific Gravity,Urine 1.023 (1.001-1.035); Urobilinogen,Urine <2.0 mg/dL (<2.0)
--- NOTE | 2024-04-05 13:54 | ED ---
SOB HPI - General Chief Complaint: Shortness of Breath Stated Complaint: NEGRO/high fever Time Seen by Provider: 04/05/24 12:55 Source: family, EMS, RN notes reviewed Mode of arrival: EMS Limitations: altered mental status - History of Present Illness Initial Comments: This is a 63-year-old male who presents to the emergency department for fevers and shortness of breath. Patient was hospitalized a few weeks ago for pneumonia and sepsis. He has oxygen available at home to use at night to keep his oxygen level where it should be, however he does not often need this and never needs it during the day. Over the last few days his has been putting the oxygen on him at night. However, this morning his oxygen was in the 80s. He also seemed much more lethargic today and family noticed that he had a fever. He was last given Tylenol around 11 AM. MD Complaint: shortness of breath - Related Data Home Medications Medication Instructions Recorded Confirmed Ferrous Sulfate [Iron (65 MG 325 mg PO HS 12/10/20 04/05/24 Elemental)] Clopidogrel [Plavix] 75 mg PO HS 06/30/21 04/05/24 Primidone [Mysoline] 50 mg PO HS 06/30/21 04/05/24 Escitalopram [Lexapro] 20 mg PO HS 02/23/23 04/05/24 Rosuvastatin Calcium [Crestor] 40 mg PO HS 03/14/23 04/05/24 Aspirin EC [Ecotrin Low Dose] 81 mg PO HS 05/22/23 04/05/24 Multivitamins, Thera [Multivitamin 1 tab PO DAILY 05/22/23 04/05/24 (formulary)] Insulin Detemir [Levemir Flexpen] 48 units SQ DAILY 06/15/23 04/05/24 Lactulose [Cephulac] 20 gm PO TID-W/MEALS 09/08/23 04/05/24 Insulin Lispro [humaLOG Kwikpen] See Protocol SQ ACHS 10/12/23 04/05/24 Acetaminophen Tab [Tylenol] 1,000 mg PO BID 03/12/24 04/05/24 Formoterol Fumarate [Perforomist] 20 mcg INHALATION RT-BID 03/12/24 04/05/24 Ipratropium-Albuterol Nebulize 3 ml INHALATION RT-TID 03/12/24 04/05/24 [Duoneb 0.5 mg-3 mg/3 ml Soln] amLODIPine [Norvasc] 2.5 mg PO BID 03/12/24 04/05/24 Yupelri 1 vial INHALATION RT-DAILY@1300 04/05/24 04/05/24 Previous Rx's Medication Instructions Recorded Lacosamide [Vimpat] 200 mg PO BID #6 tab 03/16/23 Doxycycline [Vibramycin] 100 mg PO BID 7 Days #14 cap 04/07/24 predniSONE 10 mg PO DIRECTED #18 tab 04/07/24 Allergies Allergy/AdvReac Type Severity Reaction Status Date / Time morphine AdvReac Nausea & Verified 04/05/24 15:47 Vomiting Review of Systems ROS Statement: Those systems with pertinent positive or pertinent negative responses have been documented in the HPI. ROS Other: All systems not noted in ROS Statement are negative. Past Medical History Past Medical History: COPD, CVA/TIA, Diabetes Mellitus, Hyperlipidemia, Hypertension, Memory Impairment, Myocardial Infarction (DE), Prostate Disorder, Seizure Disorder, Skin Disorder Additional Past Medical History / Comment(s): duodenal ulcer, pain and numbness cyrus legs and feet,pain pump in back, anemia. TIA X3, HEPATITIS C PAST HISTORY, LAST SEIZURE 2012,hiatal hernia Last Myocardial Infarction Date:: POSSIBLE DE 2012 History of Any Multi-Drug Resistant Organisms: None Reported Past Surgical History: Appendectomy, Back Surgery, Heart Catheterization, Orthopedic Surgery Additional Past Surgical History / Comment(s): titanium lyn in lt leg, skin graph to rt 1st and middle finger, lt eardum replaced, cyrus. foot surgery to arch, cataract surgery bilateral with implant,skin graft left leg Past Anesthesia/Blood Transfusion Reactions: No Reported Reaction Past Psychological History: Anxiety, Depression Smoking Status: Former smoker Past Alcohol Use History: None Reported Past Drug Use History: None Reported - Past Family History Mother Family Medical History: Diabetes Mellitus, Pulmonary Embolus Father Additional Family Medical History / Comment(s): Father had pain problems/hallucinations. He committed suicide. General Exam Limitations: altered mental status General appearance: alert, in no apparent distress Head exam: Present: atraumatic, normocephalic, normal inspection Respiratory exam: Present: decreased breath sounds, prolonged expiratory Neurological exam: Present: alert Skin exam: Present: warm, dry, intact, normal color. Absent: rash Course Vital Signs 10/23/24 10/23/24 10/23/24 12:49 13:00 13:30 Temperature 100.3 F H Pulse Rate 69 64 Respiratory 20 Rate Blood Pressure 172/77 172/77 147/73 O2 Sat by Pulse 93 L 92 L 92 L Oximetry 04/05/24 04/05/24 04/05/24 13:58 14:00 14:30 Temperature Pulse Rate 65 65 61 Respiratory 20 Rate Blood Pressure 145/69 144/69 139/70 O2 Sat by Pulse 94 L 95 Oximetry 04/05/24 04/05/24 04/05/24 14:42 15:00 15:30 Temperature 99.2 F Pulse Rate 59 L 59 L Respiratory Rate Blood Pressure 133/65 129/63 O2 Sat by Pulse Oximetry 04/05/24 04/05/24 04/05/24 15:50 16:00 16:01 Temperature Pulse Rate 60 57 L 59 L Respiratory Rate Blood Pressure 142/67 O2 Sat by Pulse Oximetry 04/05/24 16:30 Temperature Pulse Rate 60 Respiratory Rate Blood Pressure 130/68 O2 Sat by Pulse Oximetry Medical Decision Making - Medical Decision Making This is a 63 year old male who presents to the emergency department for weakness, fevers, and hypoxia. Was pt. sent in by a medical professional or institution? @ -No Did you speak to anyone other than the patient for history? @ -His provided all of the history. Did you review nursing and triage notes? @ -Yes, and I agree, it is accurate with regards to the patient's symptoms. Were old charts reviewed? @ -No Differential Diagnosis? @ -Differential Weakness: Hypoglycemia, shock, sepsis, hyponatremia, anemia, infection, DE, ETOH, adverse medicine reaction, overdose, stroke, this is not meant to be an all-inclusive list. EKG interpreted by me (3pts min.)? @ -EKG interpreted by me demonstrating the following: Sinus rhythm. Ventri cular rate 66 bpm, VA interval 154 ms, QRS duration 102 ms, QTc 439 ms. X-rays interpreted by me (1pt min.)? @ -Chest x-ray obtained, my interpretation identifies no localized consolidations or infiltrates. CT interpreted by me (1pt min.)? @ -Not obtained U/S interpreted by me (1pt. min.)? @ -Not obtained What testing was considered but not performed? (CT, X-rays, U/S, labs)? Why? @ -None What meds were considered but not given? Why? @ -None Did you discuss the management of the patient with other professionals? @ -Yes, Dr. Liu, who accepts the patient for admission Did you reconcile home meds? @ -No Was smoking cessation discussed for >3mins.? @ -No Was critical care preformed (if so, how long)? @ -No Were there social determinants of health that impacted care today? How? (Homelessness, low income, unemployed, alcoholism, drug addiction, transportation, low edu. Level, literacy, decrease access to med. care, correction, rehab)? @ -No Was there de-escalation of care discussed even if they declined? (Discuss DNR or withdrawal of care, Hospice)? @ -No What co-morbidities impacted this encounter? (DM, HTN, Smoking, COPD, CAD, Cancer, CVA, Hep., AIDS, mental health diagnosis, sleep apnea, morbid obesity)? @ -COPD, HLD, HTN, memory impairment Was patient admitted / discharged? @ -Admitted. Lab work unremarkable. COVID, influenza, and RSV testing negative. Urinalysis negative for signs of infection. Chest x-ray reveals signs of pulmonary vascular congestion without other acute process. Patient was febrile on arrival. He had been given Tylenol shortly before arrival and was instead given ibuprofen. The cause of his fever is not entirely clear. He was also requiring 4 to 5 L of supplemental oxygen via nasal cannula. The hypoxia may be related to COPD exacerbation. He otherwise has no signs of pneumonia. He has mild pulmonary vascular congestion on x-ray, however BNP is unremarkable. Given the hypoxia and fever of unknown origin, patient admitted to medicine for further management. Consult placed for pulmonology and infectious disease. 125 mg of Solu-Medrol and DuoNeb breathing treatment administered. Q6h Solu-Medrol and scheduled breathing treatments were ordered. Case discussed with ED attending, Dr. Wharton. Undiagnosed new problem with uncertain prognosis? @ -None Drug Therapy requiring intensive monitoring for toxicity (Heparin, Nitro, Insulin, Cardizem)? @ -None Were any procedures done? @ -None Diagnosis/symptom? @ -COPD exacerbation, acute on chronic hypoxic respiratory failure Acute, or Chronic, or Acute on Chronic? @ -Acute on chronic Uncomplicated (without systemic symptoms) or Complicated (systemic symptoms)? @ -Complicated Side effects of treatment? @ -None Exacerbation, Progression, or Severe Exacerbation] @ -Severe exacerbation Poses a threat to life or bodily function? @ -Yes, further respiratory compromise can be fatal - Lab Data Result diagrams: 04/05/24 13:03 04/05/24 13:03 Lab Results 04/05/24 04/05/24 04/05/24 Range/Units 13:03 13:03 13:03 WBC 6.6 (3.8-10.6) k/uL RBC 3.81 L (4.30-5.90) m/uL Hgb 12.5 L (13.0-17.5) gm/dL Hct 37.0 L (39.0-53.0) % MCV 97.1 (80.0-100.0) fL MCH 32.8 (25.0-35.0) pg MCHC 33.8 (31.0-37.0) g/dL RDW 13.7 (11.5-15.5) % Plt Count 88 L (150-450) k/uL MPV 8.1 Neutrophils % 79 % Lymphocytes % 11 % Monocytes % 6 % Eosinophils % 1 % Basophils % 0 % Neutrophils # 5.2 (1.3-7.7) k/uL Lymphocytes # 0.8 L (1.0-4.8) k/uL Monocytes # 0.4 (0-1.0) k/uL Eosinophils # 0.1 (0-0.7) k/uL Basophils # 0.0 (0-0.2) k/uL Manual Slide Review Performed RBC Morphology Normal PT 10.9 (10.0-12.5) sec INR 1.0 (<1.2) APTT 24.5 (22.0-30.0) sec Sodium (137-145) mmol/L Potassium (3.5-5.1) mmol/L Chloride (98-107) mmol/L Carbon Dioxide (22-30) mmol/L Anion Gap mmol/L BUN (9-20) mg/dL Creatinine (0.66-1.25) mg/dL Est GFR (CKD-EPI)AfAm (>60 ml/min/1.73 sqM) Est GFR (CKD-EPI)NonAf (>60 ml/min/1.73 sqM) Glucose (74-99) mg/dL Plasma Lactic Acid [place] (0.7-2.0) mmol/L Calcium (8.4-10.2) mg/dL Magnesium (1.6-2.3) mg/dL Total Bilirubin (0.2-1.3) mg/dL AST (17-59) U/L ALT (4-49) U/L Alkaline Phosphatase (38-126) U/L Troponin I (0.000-0.034) ng/mL NT-Pro-B Natriuret Pep pg/mL Total Protein (6.3-8.2) g/dL Albumin (3.5-5.0) g/dL Urine Color Light Yellow Urine Appearance Clear (Clear) Urine pH 6.0 (5.0-8.0) Ur Specific [place] 1.023 (1.001-1.035) Urine Protein Trace H (Negative) Urine Glucose (UA) Negative (Negative) Urine Ketones Negative (Negative) Urine Blood Negative (Negative) Urine Nitrite Negative (Negative) Urine Bilirubin Negative (Negative) Urine Urobilinogen <2.0 (<2.0) mg/dL Ur Leukocyte Esterase Negative (Negative) Influenza Type A (PCR) (Not Detectd) Influenza Type B (PCR) (Not Detectd) RSV (PCR) (Not Detectd) SARS-CoV-2 (PCR) (Not Detectd) 04/05/24 04/05/24 04/05/24 Range/Units 13:03 13:03 13:03 WBC (3.8-10.6) k/uL RBC (4.30-5.90) m/uL Hgb (13.0-17.5) gm/dL Hct (39.0-53.0) % MCV (80.0-100.0) fL MCH (25.0-35.0) pg MCHC (31.0-37.0) g/dL RDW (11.5-15.5) % Plt Count (150-450) k/uL MPV Neutrophils % % Lymphocytes % % Monocytes % % Eosinophils % % Basophils % % Neutrophils # (1.3-7.7) k/uL Lymphocytes # (1.0-4.8) k/uL Monocytes # (0-1.0) k/uL Eosinophils # (0-0.7) k/uL Basophils # (0-0.2) k/uL Manual Slide Review RBC Morphology PT (10.0-12.5) sec INR (<1.2) APTT (22.0-30.0) sec Sodium 139 (137-145) mmol/L Potassium 4.7 (3.5-5.1) mmol/L Chloride 104 (98-107) mmol/L Carbon Dioxide 29 (22-30) mmol/L Anion Gap 6 mmol/L BUN 17 (9-20) mg/dL Creatinine 0.71 (0.66-1.25) mg/dL Est GFR (CKD-EPI)AfAm >90 (>60 ml/min/1.73 sqM) Est GFR (CKD-EPI)NonAf >90 (>60 ml/min/1.73 sqM) Glucose 147 H (74-99) mg/dL Plasma Lactic Acid [place] 0.9 (0.7-2.0) mmol/L Calcium 9.1 (8.4-10.2) mg/dL Magnesium 1.8 (1.6-2.3) mg/dL Total Bilirubin 0.8 (0.2-1.3) mg/dL AST 33 (17-59) U/L ALT 17 (4-49) U/L Alkaline Phosphatase 44 (38-126) U/L Troponin I (0.000-0.034) ng/mL NT-Pro-B Natriuret Pep 191 pg/mL Total Protein 7.4 (6.3-8.2) g/dL Albumin 4.2 (3.5-5.0) g/dL Urine Color Urine Appearance (Clear) Urine pH (5.0-8.0) Ur Specific [place] (1.001-1.035) Urine Protein (Negative) Urine Glucose (UA) (Negative) Urine Ketones (Negative) Urine Blood (Negative) Urine Nitrite (Negative) Urine Bilirubin (Negative) Urine Urobilinogen (<2.0) mg/dL Ur Leukocyte Esterase (Negative) Influenza Type A (PCR) Not Detected (Not Detectd) Influenza Type B (PCR) Not Detected (Not Detectd) RSV (PCR) Not Detected (Not Detectd) SARS-CoV-2 (PCR) Not Detected (Not Detectd) 10/23/24 Range/Units 13:03 WBC (3.8-10.6) k/uL RBC (4.30-5.90) m/uL Hgb (13.0-17.5) gm/dL Hct (39.0-53.0) % MCV (80.0-100.0) fL MCH (25.0-35.0) pg MCHC (31.0-37.0) g/dL RDW (11.5-15.5) % Plt Count (150-450) k/uL MPV Neutrophils % % Lymphocytes % % Monocytes % % Eosinophils % % Basophils % % Neutrophils # (1.3-7.7) k/uL Lymphocytes # (1.0-4.8) k/uL Monocytes # (0-1.0) k/uL Eosinophils # (0-0.7) k/uL Basophils # (0-0.2) k/uL Manual Slide Review RBC Morphology PT (10.0-12.5) sec INR (<1.2) APTT (22.0-30.0) sec Sodium (137-145) mmol/L Potassium (3.5-5.1) mmol/L Chloride (98-107) mmol/L Carbon Dioxide (22-30) mmol/L Anion Gap mmol/L BUN (9-20) mg/dL Creatinine (0.66-1.25) mg/dL Est GFR (CKD-EPI)AfAm (>60 ml/min/1.73 sqM) Est GFR (CKD-EPI)NonAf (>60 ml/min/1.73 sqM) Glucose (74-99) mg/dL Plasma Lactic Acid [place] (0.7-2.0) mmol/L Calcium (8.4-10.2) mg/dL Magnesium (1.6-2.3) mg/dL Total Bilirubin (0.2-1.3) mg/dL AST (17-59) U/L ALT (4-49) U/L Alkaline Phosphatase (38-126) U/L Troponin I <0.012 (0.000-0.034) ng/mL NT-Pro-B Natriuret Pep pg/mL Total Protein (6.3-8.2) g/dL Albumin (3.5-5.0) g/dL Urine Color Urine Appearance (Clear) Urine pH (5.0-8.0) Ur Specific [place] (1.001-1.035) Urine Protein (Negative) Urine Glucose (UA) (Negative) Urine Ketones (Negative) Urine Blood (Negative) Urine Nitrite (Negative) Urine Bilirubin (Negative) Urine Urobilinogen (<2.0) mg/dL Ur Leukocyte Esterase (Negative) Influenza Type A (PCR) (Not Detectd) Influenza Type B (PCR) (Not Detectd) RSV (PCR) (Not Detectd) SARS-CoV-2 (PCR) (Not Detectd) - Radiology Data Radiology results: report reviewed, image reviewed Disposition Clinical Impression: COPD with hypoxia, COPD exacerbation, Fever of unknown origin, Acute on chronic hypoxic respiratory failure Disposition: ADMITTED IP TO THIS HOSP Condition: Stable
[2024-04-05 14:03] LABS: Platelet Count 88 k/uL (150-450)
[2024-04-05 14:15] LABS: RBC Morphology Normal
--- NOTE | 2024-04-05 14:44 | XR ---
EXAMINATION TYPE: XR chest 2V DATE OF EXAM: 04/05/2024 1:51 PM CLINICAL INDICATION: Male, 63 years old with history of difficulty breathing; H COMPARISON: Chest radiographs from 03/13/2024 TECHNIQUE: XR chest 2V Frontal view of the chest. FINDINGS: Lungs/Pleura: There is no evidence of pleural effusion, focal consolidation, or pneumothorax. Pulmonary vascularity: Pulmonary vascular congestion. Heart/mediastinum: Cardiomediastinal silhouette is enlarged. Musculoskeletal: No acute osseous pathology. IMPRESSION: Low lung volumes with a generalized hazy appearance which could represent atelectasis versus pulmonar y edema correlate with serum BNP. [facility], , 04/05/2024 2:42 PM
[2024-04-05] MEDS ORDERED: IPRATROPIUM-ALBUTEROL 3 ML NEB INHALATION PRN (15:07)
[2024-04-05] MEDS: methylPREDNISolone SOD SUCCI 125 MG/2 ML VIAL IV STA (15:33)
[2024-04-05] MEDS ORDERED: ONDANSETRON 4 MG/2 ML VIAL IVP PRN (15:37)
[2024-04-05] MEDS ORDERED: NALOXONE 0.4 MG/ML 1 ML VIAL IV PRN (15:37)
[2024-04-05] MEDS ORDERED: ACETAMINOPHEN TAB 325 MG TAB PO PRN (15:37)
[2024-04-05] MEDS: IPRATROPIUM-ALBUTEROL 3 ML NEB INHALATION SCH (15:49)
[2024-04-05] MEDS: IPRATROPIUM-ALBUTEROL 3 ML NEB INHALATION STA (15:49)
[2024-04-05] MEDS: LACTULOSE 20 GM/30 ML CUP PO SCH (18:13)
[2024-04-05] MEDS: methylPREDNISolone SOD SUCCI 125 MG/2 ML VIAL IV SCH (18:13)
[2024-04-05] MEDS ORDERED: IPRATROPIUM-ALBUTEROL 3 ML NEB INHALATION SCH (20:00)
[2024-04-05 20:46] LABS: Glucose,Whole Blood 217 mg/dL (70-110)
[2024-04-05] MEDS: FORMOTEROL FUMARATE 20 MCG/2 ML NEBU INHALATION SCH (20:57)
[2024-04-05] MEDS: PRIMIDONE 50 MG TAB PO SCH (21:40)
[2024-04-05] MEDS: FERROUS SULFATE 325 MG TAB PO SCH (21:40)
[2024-04-05] MEDS: ASPIRIN 81 MG PO SCH (21:40)
[2024-04-05] MEDS: amLODIPine 2.5 MG TAB PO SCH (21:40)
[2024-04-05] MEDS: ESCITALOPRAM 20 MG TAB PO SCH (21:40)
[2024-04-05] MEDS: LACOSAMIDE 50 MG TABLET PO SCH (21:40)
[2024-04-05] MEDS: CLOPIDOGREL 75 MG TAB PO SCH (21:40)
[2024-04-05] MEDS: ATORVASTATIN 80 MG TAB PO SCH (21:40)
[2024-04-05] MEDS: ACETAMINOPHEN TAB 500 MG TAB PO SCH (21:41)
[2024-04-06] MEDS ORDERED: DEXTROSE 50% SYRINGE 50 ML IVP PRN ×2 (03:12)
--- NOTE | 2024-04-06 05:30 | P.CNPUL ---
History of Present Illness Consult date: 04/06/24 Requesting physician: Nessa Escobar Reason for consult: COPD Chief complaint: Shortness of breath, hypoxia, intermittent fevers History of present illness: This is a 64-year-old white male with multiple medical comorbidities including COPD, CVA, diabetes mellitus type 2, hypertension, coronary artery disease, CHF, chronic back pain, seizures, and history of hepatitis C. He is wheelchair/bed bound. Patient is a very poor historian. Reportedly lives with his . He has had multiple hospitalizations for COPD over the last year. Most recently discharged on March 15, for similar symptoms. Patient presents back to the emergency department yesterday. Reportedly noted to be progressively more short of breath. He was found to be hypoxic with an SpO2 in the 80s, at home per his . He is oxygen dependent at baseline. Congested cough with yellow sputum. He was febrile on arrival to the emergency department with a Tmax of 100.3 F. Chest x-ray showing similar low lung volumes and generalized hazy appearance, no significant interval change from previous image. No obvious focal consolidation/pneumonia. CBC: WBC count 6.6, hemoglobin 12.5, hematocrit 37, platelets 88,000. CMP: Sodium 139, potassium 4.7, chloride 104, serum bicarb 29, BUN 17, creatinine 0.71, glucose 147. Lactic 0.9. Magnesium 1.8. LFTs unremarkable. Troponin less than 0.012. NT proBNP 191. Procalcitonin 0.29. Urinalysis unremarkable for UTI. Negative for influenza, RSV, COVID. Currently covered on a combination of antibiotics including Rocephin and doxycycline. Patient is currently being evaluated on the general medical floor. He is on 4 L/min nasal cannula, in no acute respiratory distress. Vitals are stable. Review of Systems ROS unobtainable: due to mental status Past Medical History Past Medical History: COPD, CVA/TIA, Diabetes Mellitus, Hyperlipidemia, Hypertension, Memory Impairment, Myocardial Infarction ([place]), Prostate Disorder, Seizure Disorder, Skin Disorder Additional Past Medical History / Comment(s): duodenal ulcer, pain and numbness cyrus legs and feet,pain pump in back, anemia. TIA X3, HEPATITIS C PAST HISTORY, LAST SEIZURE 2012,hiatal hernia Last Myocardial Infarction Date:: POSSIBLE [place] 2012 History of Any Multi-Drug Resistant Organisms: None Reported Past Surgical History: Appendectomy, Back Surgery, Heart Catheterization, Orthopedic Surgery Additional Past Surgical History / Comment(s): titanium lyn in lt leg, skin graph to rt 1st and middle finger, lt eardum replaced, cyrus. foot surgery to arch, cataract surgery bilateral with implant,skin graft left leg Past Anesthesia/Blood Transfusion Reactions: No Reported Reaction Past Psychological History: Anxiety, Depression Smoking Status: Former smoker Past Alcohol Use History: None Reported Past Drug Use History: None Reported - Past Family History Mother Family Medical History: Diabetes Mellitus, Pulmonary Embolus Father Additional Family Medical History / Comment(s): Father had pain problems/hallucinations. He committed suicide. Medications and Allergies Home Medications Medication Instructions Recorded Confirmed Type Ferrous Sulfate [Iron (65 MG 325 mg PO HS 12/10/20 04/05/24 History Elemental)] Clopidogrel [Plavix] 75 mg PO HS 06/30/21 04/05/24 History Primidone [Mysoline] 50 mg PO HS 06/30/21 04/05/24 History Escitalopram [Lexapro] 20 mg PO HS 02/23/23 04/05/24 History Rosuvastatin Calcium [Crestor] 40 mg PO HS 03/14/23 04/05/24 History Lacosamide [Vimpat] 200 mg PO BID #6 tab 03/16/23 04/05/24 Rx Aspirin EC [Ecotrin Low Dose] 81 mg PO HS 05/22/23 04/05/24 History Multivitamins, Thera [Multivitamin 1 tab PO DAILY 05/22/23 04/05/24 History (formulary)] Insulin Detemir [Levemir Flexpen] 48 units SQ DAILY 06/15/23 04/05/24 History Lactulose [Cephulac] 20 gm PO TID-W/MEALS 09/08/23 04/05/24 History Insulin Lispro [humaLOG Kwikpen] See Protocol SQ ACHS 10/12/23 04/05/24 History Acetaminophen Tab [Tylenol] 1,000 mg PO BID 03/12/24 04/05/24 History Formoterol Fumarate [Perforomist] 20 mcg INHALATION RT-BID 03/12/24 04/05/24 History Ipratropium-Albuterol Nebulize 3 ml INHALATION RT-TID 03/12/24 04/05/24 History [Duoneb 0.5 mg-3 mg/3 ml Soln] amLODIPine [Norvasc] 2.5 mg PO BID 03/12/24 04/05/24 History Yupelri 1 vial INHALATION RT-DAILY@1300 04/05/24 04/05/24 History Allergies Allergy/AdvReac Type Severity Reaction Status Date / Time morphine AdvReac Nausea & Verified 04/05/24 15:47 Vomiting Physical Exam Vitals: Vital Signs Temp Pulse Pulse Resp BP BP Pulse Ox 04/05/24 21:45 16 94 L 04/05/24 21:13 68 04/05/24 20:58 66 04/05/24 19:36 98.4 F 66 18 146/72 91 L 04/05/24 17:50 98.7 F 66 19 167/80 97 04/05/24 16:30 60 130/68 04/05/24 16:01 59 L 04/05/24 16:00 57 L 142/67 04/05/24 15:50 60 04/05/24 15:30 59 L 129/63 04/05/24 15:00 59 L 133/65 04/05/24 14:42 99.2 F 04/05/24 14:30 61 139/70 04/05/24 14:00 65 144/69 95 04/05/24 13:58 65 20 145/69 94 L 04/05/24 13:30 64 147/73 92 L 04/05/24 13:00 172/77 92 L 04/05/24 12:49 100.3 F H 69 20 172/77 93 L Intake and Output 04/05/24 04/05/24 04/06/24 14:59 22:59 06:59 Output Total 610 Balance -610 Output: Urine 610 Straight 610 Other: Voiding Method Diaper External Catheter Weight 81.647 kg 81.647 kg GENERAL EXAM: Alert, 63-year-old male, delayed verbal response, comfortable in no apparent distress. HEAD: Normocephalic and atraumatic EYES: Normal reaction of pupils, equal size. NOSE: Clear with pink turbinates. THROAT: No erythema or exudates. NECK: No masses, no JVD. CHEST: No chest wall deformity. LUNGS: Equal air entry with scattered expiratory wheezes/rhonchi bilaterally. On 4 L/min nasal cannula. No conversational dyspnea or accessory muscle use. Congested cough CVS: S1 and S2 normal with no audible murmur, regular rhythm. No extra heart sounds ABDOMEN: No hepatosplenomegaly, active bowel sounds, no guarding or rigidity. SPINE: No scoliosis or deformity SKIN: No rashes CENTRAL NERVOUS SYSTEM: No focal deficits, tone is normal in all 4 extremities. Bilateral upper extremity strength graded 4/5, bilateral lower extremities grade 3/5. EXTREMITIES: There is no peripheral edema, clubbing, or cyanosis. Peripheral pulses are intact. Bilateral lower extremity foot drop Results - Laboratory Findings CBC and BMP: 04/05/24 13:03 04/05/24 13:03 PT/INR, D-dimer PT 10.9 sec (10.0-12.5) 04/05/24 13:03 INR 1.0 (<1.2) 04/05/24 13:03 Abnormal lab findings: Abnormal Labs 04/05/24 04/05/24 04/05/24 13:03 13:03 13:03 RBC 3.81 L Hgb 12.5 L Hct 37.0 L Plt Count 88 L Lymphocytes # 0.8 L Glucose 147 H POC Glucose (mg/dL) Urine Protein Trace H 04/05/24 20:44 RBC Hgb Hct Plt Count Lymphocytes # Glucose POC Glucose (mg/dL) 217 H Urine Protein - Diagnostic Findings Chest x-ray: image reviewed Assessment and Plan Assessment: Acute COPD exacerbation, suspect secondary to acute tracheobronchitis Acute on chronic hypoxemic respiratory failure, secondary to above History of CVA/TIA Memory impairment Diabetes mellitus type 2 Hypertension History of coronary artery disease with previous [place] History of seizure disorder History of hepatitis C, with secondary liver cirrhosis Chronic thrombocytopenia Wheelchair dependent; bilateral foot drop Plan: Patient's medications, labs, chest x-ray reviewed Continue supplemental oxygen, wean FiO2 to maintain oxygen saturation of 92% or greater No interval change in CXR findings. Low lung volumes. No obvious focal consolidations or pneumonia. Infectious disease specialist managing antibiotics Procalcitonin level 0.29 Negative for influenza, RSV, COVID Start patient on combination of DuoNebs [id number], budesonide inhalation, formoterol inhalation,, and IV Solu-Medrol GI prophylaxis: Protonix Pharmacological DVT prophylaxis deferred as patient's platelets are low. Will order SCDs We will continue to follow I have personally seen and examined the patient, performed the documentation and the assessment and plan as written. Number of minutes spent on the visit:20 Time with Patient: Greater than 30
[2024-04-06 06:20] LABS: Glucose,Whole Blood 211 mg/dL (70-110)
[2024-04-06] MEDS: INSULIN DETEMIR (LEVEMIR) 100 UNIT/ML SYR SQ SCH (06:55)
[2024-04-06] MEDS: INSULIN ASPART (NovoLOG) 100 UNIT/ML VIAL SQ SCH (06:57)
--- NOTE | 2024-04-06 07:34 | P.CONS ---
History of Present Illness - Reason for Consult Consult date: 04/05/24 Fever of unknown origin Requesting physician: Nessa Escobar - Chief Complaint Fever and cough x few days - History of Present Illness Patient is a 63-year-old female with a past medical history significant for diabetes mellitus hypertension hyperlipidemia CVA TIA COPD [place] patient has been brought into the hospital concerning for fever and shortness of breath and this patient symptom has been going on for the last few days apparently he did spike a fever the day before yesterday did okay a day before presentation to the hospital however did have another fever of 101 F patient was more lethargic also having a cough which has been moderate intensity and is bringing up some yellowish sputum for the patient has been brought to the hospital no clear history of any nausea vomiting abdominal pain or diarrhea and no urinary symptoms on presentation to the hospital he did have a temperature of 100.3 F patient was not tachycardic or hypotensive he was mildly hypoxic currently on 4 L nasal cannula oxygen patient did have a white count of 6.6 creatinine 0.71 urine has been negative patient tested negative for influenza RSV and COVID he did have a chest x-ray low lung volumes with generalized hazy appearance which could represent atelectasis versus pulmonary edema correlate with serum BNP patient has been admitted to hospital infectious disease was con sulted regarding his fever Review of Systems Positive point and negatives has been mentioned in the HPI, complete review of systems was performed and all other systems are negative Past Medical History Past Medical History: COPD, CVA/TIA, Diabetes Mellitus, Hyperlipidemia, Hypertension, Memory Impairment, Myocardial Infarction ([place]), Prostate Disorder, Seizure Disorder, Skin Disorder Additional Past Medical History / Comment(s): duodenal ulcer, pain and numbness cyrus legs and feet,pain pump in back, anemia. TIA X3, HEPATITIS C PAST HISTORY, LAST SEIZURE 2012,hiatal hernia Last Myocardial Infarction Date:: POSSIBLE [place] 2012 History of Any Multi-Drug Resistant Organisms: None Reported Past Surgical History: Appendectomy, Back Surgery, Heart Catheterization, Orthopedic Surgery Additional Past Surgical History / Comment(s): titanium lyn in lt leg, skin graph to rt 1st and middle finger, lt eardum replaced, cyrus. foot surgery to arch, cataract surgery bilateral with implant,skin graft left leg Past Anesthesia/Blood Transfusion Reactions: No Reported Reaction Past Psychological History: Anxiety, Depression Smoking Status: Former smoker Past Alcohol Use History: None Reported Past Drug Use History: None Reported - Past Family History Mother Family Medical History: Diabetes Mellitus, Pulmonary Embolus Father Additional Family Medical History / Comment(s): Father had pain problems/duenas llucinations. He committed suicide. Medications and Allergies Home Medications Medication Instructions Recorded Confirmed Type Ferrous Sulfate [Iron (65 MG 325 mg PO HS 12/10/20 04/05/24 History Elemental)] Clopidogrel [Plavix] 75 mg PO HS 06/30/21 04/05/24 History Primidone [Mysoline] 50 mg PO HS 06/30/21 04/05/24 History Escitalopram [Lexapro] 20 mg PO HS 02/23/23 04/05/24 History Rosuvastatin Calcium [Crestor] 40 mg PO HS 03/14/23 04/05/24 History Lacosamide [Vimpat] 200 mg PO BID #6 tab 03/16/23 04/05/24 Rx Aspirin EC [Ecotrin Low Dose] 81 mg PO HS 05/22/23 04/05/24 History Multivitamins, Thera [Multivitamin 1 tab PO DAILY 05/22/23 04/05/24 History (formulary)] Insulin Detemir [Levemir Flexpen] 48 units SQ DAILY 06/15/23 04/05/24 History Lactulose [Cephulac] 20 gm PO TID-W/MEALS 09/08/23 04/05/24 History Insulin Lispro [humaLOG Kwikpen] See Protocol SQ ACHS 10/12/23 04/05/24 History Acetaminophen Tab [Tylenol] 1,000 mg PO BID 03/12/24 04/05/24 History Formoterol Fumarate [Perforomist] 20 mcg INHALATION RT-BID 03/12/24 04/05/24 History Ipratropium-Albuterol Nebulize 3 ml INHALATION RT-TID 03/12/24 04/05/24 History [Duoneb 0.5 mg-3 mg/3 ml Soln] amLODIPine [Norvasc] 2.5 mg PO BID 03/12/24 04/05/24 History Yupelri 1 vial INHALATION RT-DAILY@1300 04/05/24 04/05/24 History Allergies Allergy/AdvReac Type Severity Reaction Status Date / Time morphine AdvReac Nausea & Verified 04/05/24 15:47 Vomiting Physical Exam Vitals: Vital Signs Temp Pulse Resp BP Pulse Ox 04/05/24 16:01 59 L 04/05/24 15:50 60 04/05/24 14:42 99.2 F 04/05/24 13:58 65 20 145/69 94 L 04/05/24 12:49 100.3 F H 69 20 172/77 93 L Intake and Output 04/05/24 04/05/24 04/05/24 06:59 14:59 22:59 Other: Weight 81.647 kg GENERAL DESCRIPTION: Middle-aged male lying in bed, no distress. No tachypnea or accessory muscle of respiration use. HEENT: Shows Pallor , no scleral icterus. Oral mucous membrane is dry. NECK: Trachea central, no thyromegaly. LUNGS: Unlabored breathing. Decreased breath sound at the base HEART: S1, S2, regular rate and rhythm. No loud murmur ABDOMEN: Soft, no tenderness , guarding or rigidity, no organomegaly EXTREMITIES: No edema of feet. SKIN: No rash, no masses palpable. NEUROLOGICAL: The patient is awake, mood and affect normal. Results CBC & Chem 7: 04/05/24 13:03 04/05/24 13:03 Labs: Abnormal Lab Results - Last 24 Hours (Table) 04/05/24 04/05/24 04/05/24 Range/Units 13:03 13:03 13:03 RBC 3.81 L (4.30-5.90) m/uL Hgb 12.5 L (13.0-17.5) gm/dL Hct 37.0 L (39.0-53.0) % Plt Count 88 L (150-450) k/uL Lymphocytes # 0.8 L (1.0-4.8) k/uL Glucose 147 H (74-99) mg/dL Urine Protein Trace H (Negative) Assessment and Plan (1) Fever Current Visit: Yes Status: Acute Code(s): R50.9 - FEVER, UNSPECIFIED SNOMED Code(s): 716711021 (2) Pneumonia Current Visit: No Status: Acute Code(s): J18.9 - PNEUMONIA, UNSPECIFIED ORGANISM SNOMED Code(s): 110193737 Plan: 1patient presented to hospital with fever increasing shortness of breath hypoxemia and also have a cough bring up some yellowish sputum high clinic suspicious for pneumonia to be the likely etiology patient abdominal soft urine is negative no evidence of any cellulitis 2-we will try to obtain a sputum for Gram stain and culture check a CRP and a procalcitonin level blood culture has been obtained results will be followed 3-we will empirically start the patient on Rocephin and doxycycline pending workup completion We will follow on clinical condition and cultures to further adjust medication if needed Thank you for this consultation we will follow the patient along with you Dictation was produced using [employer] dictation software. please excuse any grammatical, word or spelling errors. Time with Patient: Greater than 30
[2024-04-06] MEDS: MULTIVITAMINS, THERA 1 EACH TAB PO SCH (07:39)
[2024-04-06] MEDS: DOXYCYCLINE 100 MG CAP PO SCH (07:40)
[2024-04-06] MEDS: BUDESONIDE 1 MG/2 ML NEBU INHALATION SCH (08:39)
[2024-04-06] MEDS: PANTOPRAZOLE 40 MG/10 ML VIAL IV SCH (08:50)
[2024-04-06] MEDS: YUPELRI INHALATION SCH (08:51)
[2024-04-06] MEDS ORDERED: ZINC OXIDE PASTE (Z-GUARD) 1 APPLIC TOPICAL PRN (10:15)
--- NOTE | 2024-04-06 11:13 | P.HPIM ---
History of Present Illness H&P Date: 04/06/24 Chief Complaint: Shortness of breath This is a 63-year-old gentleman past medical history significant for COPD, atelectasis, pneumonia, former nicotine dependence, hypertension, hyperlipidemia, diabetes mellitus, CVA-resides in a wheelchair and multiple other medical issues presented to the ER with progressive dyspnea overall couple days ,productive cough with whitish sputum, denies fevers. Recently discharged 03-15-24 with similar presentation. Denies nausea, vomiting or diarrhea. Chronic back pain, wearing pain pump. Denies chest pain, palpitations. No family currently at bedside . Chest x-ray reporting low lung volumes with generalized hazy appearance representing atelectasis versus pulmonary edema. proBNP 191. Tmax 100.3, normal WBC. Procalcitonin 0.29. viral studies negative, UA negative. Review of Systems ROS Other: All systems not noted in ROS Statement are negative. ROS Statement: Those systems with pertinent positive or pertinent negative responses have been documented in the HPI. Past Medical History Past Medical History: COPD, CVA/TIA, Diabetes Mellitus, Hyperlipidemia, Hypertension, Memory Impairment, Myocardial Infarction ([place]), Prostate Disorder, Seizure Disorder, Skin Disorder Additional Past Medical History / Comment(s): duodenal ulcer, pain and numbness cyrus legs and feet,pain pump in back, anemia. TIA X3, HEPATITIS C PAST HISTORY, LAST SEIZURE 2012,hiatal hernia Last Myocardial Infarction Date:: POSSIBLE [place] 2012 History of Any Multi-Drug Resistant Organisms: None Reported Past Surgical History: Appendectomy, Back Surgery, Heart Catheterization, Orthopedic Surgery Additional Past Surgical History / Comment(s): titanium lyn in lt leg, skin graph to rt 1st and middle finger, lt eardum replaced, cyrus. foot surgery to arch, cataract surgery bilateral with implant,skin graft left leg Past Anesthesia/Blood Transfusion Reactions: No Reported Reaction Past Psychological History: Anxiety, Depression Smoking Status: Former smoker Past Alcohol Use History: None Reported Past Drug Use History: None Reported - Past Family History Mother Family Medical History: Diabetes Mellitus, Pulmonary Embolus Father Additional Family Medical History / Comment(s): Father had pain problems/halluc inations. He committed suicide. Medications and Allergies Home Medications Medication Instructions Recorded Confirmed Type Ferrous Sulfate [Iron (65 MG 325 mg PO HS 12/10/20 04/05/24 History Elemental)] Clopidogrel [Plavix] 75 mg PO HS 06/30/21 04/05/24 History Primidone [Mysoline] 50 mg PO HS 06/30/21 04/05/24 History Escitalopram [Lexapro] 20 mg PO HS 02/23/23 04/05/24 History Rosuvastatin Calcium [Crestor] 40 mg PO HS 03/14/23 04/05/24 History Lacosamide [Vimpat] 200 mg PO BID #6 tab 03/16/23 04/05/24 Rx Aspirin EC [Ecotrin Low Dose] 81 mg PO HS 05/22/23 04/05/24 History Multivitamins, Thera [Multivitamin 1 tab PO DAILY 05/22/23 04/05/24 History (formulary)] Insulin Detemir [Levemir Flexpen] 48 units SQ DAILY 06/15/23 04/05/24 History Lactulose [Cephulac] 20 gm PO TID-W/MEALS 09/08/23 04/05/24 History Insulin Lispro [humaLOG Kwikpen] See Protocol SQ ACHS 10/12/23 04/05/24 History Acetaminophen Tab [Tylenol] 1,000 mg PO BID 03/12/24 04/05/24 History Formoterol Fumarate [Perforomist] 20 mcg INHALATION RT-BID 03/12/24 04/05/24 History Ipratropium-Albuterol Nebulize 3 ml INHALATION RT-TID 03/12/24 04/05/24 History [Duoneb 0.5 mg-3 mg/3 ml Soln] amLODIPine [Norvasc] 2.5 mg PO BID 03/12/24 04/05/24 History Yupelri 1 vial INHALATION RT-DAILY@1300 04/05/24 04/05/24 History Allergies Allergy/AdvReac Type Severity Reaction Status Date / Time morphine AdvReac Nausea & Verified 04/05/24 15:47 Vomiting Physical Exam Vitals: Vital Signs Temp Pulse Pulse Resp BP BP Pulse Ox 04/06/24 08:57 72 04/06/24 08:48 70 04/06/24 08:40 66 04/06/24 07:50 58 L 16 04/06/24 06:57 98.4 F 58 L 16 143/75 95 04/06/24 01:45 97.8 F 57 L 20 137/77 93 L 04/05/24 21:45 16 94 L 04/05/24 21:13 68 04/05/24 20:58 66 04/05/24 19:36 98.4 F 66 18 146/72 91 L 04/05/24 17:50 98.7 F 66 19 167/80 97 04/05/24 16:30 60 130/68 04/05/24 16:01 59 L 04/05/24 16:00 57 L 142/67 04/05/24 15:50 60 04/05/24 15:30 59 L 129/63 04/05/24 15:00 59 L 133/65 04/05/24 14:42 99.2 F 04/05/24 14:30 61 139/70 04/05/24 14:00 65 144/69 95 04/05/24 13:58 65 20 145/69 94 L 04/05/24 13:30 64 147/73 92 L 04/05/24 13:00 172/77 92 L 04/05/24 12:49 100.3 F H 69 20 172/77 93 L Intake and Output 04/05/24 04/06/24 04/06/24 22:59 06:59 14:59 Output Total 610 Balance -610 Output: Urine 610 Straight 610 Other: Voiding Method Diaper Diaper External Catheter External Catheter Weight 81.647 kg General: Alert and oriented 2-3, sitting up in bed, no acute distress, slightly converses-baseline Head: atraumatic normocephalic. Eyes PERRL, mucous membranes moist Respiratory: Unlabored, equal air entry, fine bibasilar crackles Cardiovascular: S1-S2, regular rhythm, bradycardic, no audible murmur Abdominal: Soft, nondistended, nontender,no guarding or rebound. Neuroogic: CN II-XII intact, no focal deficits. Prior [id number]. Skin: warm dry, left buttock chronic wound ulceration, stage II, left calf skin graft Results CBC & Chem 7: 04/05/24 13:03 04/05/24 13:03 Labs: Abnormal Lab Results - Last 24 Hours (Table) 04/05/24 04/05/24 04/05/24 Range/Units 13:03 13:03 13:03 RBC 3.81 L (4.30-5.90) m/uL Hgb 12.5 L (13.0-17.5) gm/dL Hct 37.0 L (39.0-53.0) % Plt Count 88 L (150-450) k/uL Lymphocytes # 0.8 L (1.0-4.8) k/uL Glucose 147 H (74-99) mg/dL POC Glucose (mg/dL) (70-110) mg/dL Urine Protein Trace H (Negative) 04/05/24 04/06/24 Range/Units 20:44 06:13 RBC (4.30-5.90) m/uL Hgb (13.0-17.5) gm/dL Hct (39.0-53.0) % Plt Count (150-450) k/uL Lymphocytes # (1.0-4.8) k/uL Glucose (74-99) mg/dL POC Glucose (mg/dL) 217 H 211 H (70-110) mg/dL Urine Protein (Negative) Thrombosis Risk Factor Assmnt - Choose All That Apply Any of the Below Risk Factors Present?: Yes Each Factor Represents 1 point: Abnormal pulmonary function (COPD), Medical pt on bed rest, Obesity (BMI >25) Other Risk Factors: Yes Each Risk Factor Represents 2 Points: Age 61-74 years Each Risk Factor Represents 3 Points: Family history of DVT/PE, History of DVT/PE Thrombosis Risk Factor Assessment Total Risk Factor Score: 11 Thrombosis Risk Factor Assessment Level: High Risk Assessment and Plan Assessment: Acute COPD exacerbation,bibasilar atelectasis and acute tracheobronchitis. Pneumonia ruled out, normal procalcitonin. Acute on chronic hypoxic respiratory failure Chronic Thrombocytopenia, 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 Diabetes mellitus type 2, hemoglobin A1c 7.2 left buttock wound, stage II, present on admission, follows at the wound care center Hypertension History of seizure disorder History of CVA with memory impairment Anxiety/depression Former nicotine dependence Chronic pain syndrome with pain pump Plan: Continue on current medication regimen ,monitoring and symptomatic treatment.Aggressive pulmonary toileting with nebulized bronchodilators, IV steroids. Antibiotics as per ID. Wean oxygen as tolerated. PT /OT. Discussed with RN, patient to be up in chair today. The impression and plan of care has been dictated as directed. : I performed a history and examination of this patient, discussed the same with the dictator. I agree with the dictator's note ,documented as a scribe. Any additional findings or plans will be noted.
[2024-04-06 11:18] LABS: Glucose,Whole Blood 216 mg/dL (70-110)
[2024-04-06 11:48] VITALS: BMI 28.1
[2024-04-06 16:14] LABS: Glucose,Whole Blood 249 mg/dL (70-110)
[2024-04-06 20:25] LABS: Glucose,Whole Blood 294 mg/dL (70-110)
[2024-04-07 06:06] LABS: Glucose,Whole Blood 268 mg/dL (70-110)
[2024-04-07 08:59] VITALS: RESP 20
[2024-04-07 11:55] LABS: Glucose,Whole Blood 274 mg/dL (70-110)
[2024-04-07 13:26] VITALS: BP 136/67; TEMP 98.1
--- NOTE | 2024-04-07 13:40 | P.PN ---
Subjective Progress Note Date: 04/07/24 This is a 64-year-old white male with multiple medical comorbidities including COPD, CVA, diabetes mellitus type 2, hypertension, coronary artery disease, CHF, chronic back pain, seizures, and history of hepatitis C. He is wheelchair/bedbound. Patient is a very poor historian. Reportedly lives with his . He has had multiple hospitalizations for COPD over the last year. Most recently discharged on March 15, for similar symptoms. Patient presents back to the emergency department yesterday. Reportedly noted to be progressively more short of breath. He was found to be hypoxic with an SpO2 in the 80s, at home per his . He is oxygen dependent at baseline. Congested cough with yellow sputum. He was febrile on arrival to the emergency department with a Tmax of 100.3 F. Chest x-ray showing similar low lung volumes and generalized hazy appearance, no significant interval change from previous image. No obvious focal consolidation/pneumonia. CBC: WBC count 6.6, hemoglobin 12.5, hematocrit 37, platelets 88,000. CMP: Sodium 139, potassium 4.7, chloride 104, serum bicarb 29, BUN 17, creatinine 0.71, glucose 147. Lactic 0.9. Magnesium 1.8. LFTs unremarkable. Troponin less than 0.012. NT proBNP 191. Procalcitonin 0.29. Urinalysis unremarkable for UTI. Negative for influenza, RSV, COVID. Currently covered on a combination of antibiotics including Rocephin and doxycycline. Patient is currently being evaluated on the general medical floor. He is on 4 L/min nasal cannula, in no acute respiratory distress. Vitals are stable. The patient is seen today April 07, 2024 in follow-up on the regular medical floor. He is currently sitting up in bed. Awake and alert in no acute distress. Denies that he worsening shortness of breath, cough or congestion. Feeling better today compared to yesterday. Maintaining good O2 saturation in the 90s on 4 L/min per nasal cannula. Afebrile. Hemodynamically stable. Blood cultures revealed no growth to date. Blood sugar 274. DuoNeb inhalations, Pulmicort and Perforomist inhalations, IV Solu-Medrol. Antibiotics in the form of doxycycline and ceftriaxone. Procalcitonin was negative at 0.29. Infectious disease is on the case. Objective - Vital Signs Vital signs: Vital Signs Temp 98.1 F 04/07/24 13:22 Pulse 68 04/07/24 13:22 Resp 20 04/07/24 13:22 BP 136/67 04/07/24 13:22 Pulse Ox 93 L 04/07/24 13:22 FiO2 Intake & Output 04/06/24 04/07/24 04/07/24 18:59 06:59 18:59 Output Total 950 600 Balance -950 -600 Weight 81.647 kg Output: Urine 950 600 Other: Voiding Method Diaper Diaper Diaper External Catheter External Catheter External Catheter # Voids 4 # Bowel Movements 1 - Exam GENERAL EXAM: Alert, 63-year-old male, on 4 L/min per nasal cannula, comfortable in no apparent distress. HEAD: Normocephalic and atraumatic EYES: Normal reaction of pupils, equal size. NOSE: Clear with pink turbinates. THROAT: No erythema or exudates. NECK: No masses, no JVD. CHEST: No chest wall deformity. LUNGS: Equal air entry with scattered expiratory wheezes/rhonchi bilaterally. CVS: S1 and S2 normal with no audible murmur, regular rhythm. No extra heart sounds ABDOMEN: No hepatosplenomegaly, active bowel sounds, no guarding or rigidity. SPINE: No scoliosis or deformity SKIN: No rashes CENTRAL NERVOUS SYSTEM: No focal deficits, tone is normal in all 4 extremities. Bilateral upper extremity strength graded 4/5, bilateral lower extremities grade 3/5. EXTREMITIES: There is no peripheral edema, clubbing, or cyanosis. Peripheral pulses are intact. Bilateral lower extremity foot drop - Labs CBC & Chem 7: 04/05/24 13:03 04/05/24 13:03 Labs: Abnormal Lab Results - Last 24 Hours (Table) 04/06/24 04/06/24 04/07/24 Range/Units 16:13 20:24 06:02 POC Glucose (mg/dL) 249 H 294 H 268 H (70-110) mg/dL 04/07/24 Range/Units 11:53 POC Glucose (mg/dL) 274 H (70-110) mg/dL Microbiology - Last 24 Hours (Table) 04/05/24 15:23 Blood Culture - Preliminary Blood Assessment and Plan Assessment: Acute COPD exacerbation, suspect secondary to acute tracheobronchitis, procalcitonin negative Acute on chronic hypoxemic respiratory failure, secondary to above History of CVA/TIA Memory impairment Diabetes mellitus type 2 Hypertension History of coronary artery disease with previous [place] History of seizure disorder History of hepatitis C, with secondary liver cirrhosis Chronic thrombocytopenia Wheelchair dependent; bilateral foot drop Poor functional performance based on the above-mentioned multiple comorbidities Plan: The patient was seen and evaluated Labs and medications reviewed Procalcitonin negative Antibiotics per ID service Continue bronchodilators Transition to prednisone taper Cleared for discharge from the pulmonary standpoint I have personally seen and examined the patient, performed the documentation and the assessment and plan as written. Number of minutes spent on the visit: 10 Dictation was produced using [email or web address] dictation software. Please excuse any grammatical, word or spelling errors.
--- NOTE | 2024-04-07 15:50 | P.PN ---
Subjective Progress Note Date: 04/06/24 Principal diagnosis: Reason for follow-up is a fever question of tracheobronchitis/pneumonia Patient is a 63-year-old female with a past medical history significant for diabetes mellitus hypertension hyperlipidemia CVA TIA COPD [place] patient has been brought into the hospital concerning for fever and shortness of breath with concern for COPD with the patient and possible component of tracheobronchitis/pneumonia. Patient did tested negative for influenza RSV and COVID chest x-ray some atelectasis On today's evaluation that is 04/06/2024,the patient did have resolution of his fever and afebrile this morning, patient is breathing comfortably on 4 L nasal oxygen the patient denies chest pain shortness of breath and no worsening cough, patient denies abdominal pain, no nausea vomiting or diarrhea. Patient did not have any new lab draw today blood culture pending sputum not collected Objective - Vital Signs Vital signs: Vital Signs Temp 98.4 F 04/06/24 06:57 Pulse 78 04/06/24 12:22 Resp 16 04/06/24 07:50 BP 143/75 04/06/24 06:57 Pulse Ox 95 04/06/24 06:57 FiO2 Intake & Output 04/05/24 04/06/24 04/06/24 18:59 06:59 18:59 Output Total 610 Balance -610 Weight 81.647 kg 81.647 kg Output: Urine 610 Straight 610 Other: Voiding Method Diaper Diaper External Catheter External Catheter - Exam GENERAL DESCRIPTION: Middle-age male lying in bed in no distress RESPIRATORY SYSTEM: Unlabored breathing , decreased breath sounds at bases HEART: S1 S2 regular rate and rhythm , ABDOMEN: Soft , no tenderness EXTREMITIES: No edema feet - Labs CBC & Chem 7: 04/05/24 13:03 04/05/24 13:03 Labs: Abnormal Lab Results - Last 24 Hours (Table) 04/05/24 04/05/24 04/05/24 Range/Units 13:03 13:03 13:03 RBC 3.81 L (4.30-5.90) m/uL Hgb 12.5 L (13.0-17.5) gm/dL Hct 37.0 L (39.0-53.0) % Plt Count 88 L (150-450) k/uL Lymphocytes # 0.8 L (1.0-4.8) k/uL Glucose 147 H (74-99) mg/dL POC Glucose (mg/dL) (70-110) mg/dL Urine Protein Trace H (Negative) 04/05/24 04/06/24 04/06/24 Range/Units 20:44 06:13 11:17 RBC (4.30-5.90) m/uL Hgb (13.0-17.5) gm/dL Hct (39.0-53.0) % Plt Count (150-450) k/uL Lymphocytes # (1.0-4.8) k/uL Glucose (74-99) mg/dL POC Glucose (mg/dL) 217 H 211 H 216 H (70-110) mg/dL Urine Protein (Negative) Assessment and Plan (1) Fever Current Visit: Yes Status: Acute Code(s): R50.9 - FEVER, UNSPECIFIED SNOMED Code(s): 380303168 (2) Pneumonia Current Visit: No Status: Acute Code(s): J18.9 - PNEUMONIA, UNSPECIFIED ORGANISM SNOMED Code(s): 019348395 Plan: 1patient presented to hospital with fever increasing shortness of breath hypoxemia and also have a cough bring up some yellowish sputum high clinic suspicious for pneumonia to be the likely etiology patient abdominal soft urine is negative no evidence of any cellulitis 2-unfortunately sputum has not been collected, Percocet is not significant elevated blood culture currently pending 3-patient did have resolution of his fever we will continue with Rocephin and doxycycline pending workup completion Dictation was produced using [email or web address] dictation software. please excuse any grammatical, word or spelling errors. Time with Patient: Less than 30
--- NOTE | 2024-04-07 15:50 | P.PN ---
Subjective Progress Note Date: 04/07/24 Principal diagnosis: Reason for follow-up is a fever question of tracheobronchitis/pneumonia Patient is a 63-year-old female with a past medical history significant for diabetes mellitus hypertension hyperlipidemia CVA TIA COPD [place] patient has been brought into the hospital concerning for fever and shortness of breath with concern for COPD with the patient and possible component of tracheobronchitis/pneumonia. Patient did tested negative for influenza RSV and COVID chest x-ray some atelectasis On today's evaluation that is 04/07/2024,the patient remains to be afebrile, patient is on 4 L nasal cannula supplemental oxygen and denies any shortness of breath no chest pain and cough has decreased in intensity.Patient denies having any nausea or vomiting, no abdominal pain and no diarrhea has been reported. No new lab has been repeated today blood culture has been negative sputum was not collected Objective - Vital Signs Vital signs: Vital Signs Temp 98.1 F 04/07/24 13:22 Pulse 68 04/07/24 13:22 Resp 20 04/07/24 13:22 BP 136/67 04/07/24 13:22 Pulse Ox 93 L 04/07/24 13:22 FiO2 Intake & Output 04/06/24 04/07/24 04/07/24 18:59 06:59 18:59 Output Total 950 600 Balance -950 -600 Weight 81.647 kg Output: Urine 950 600 Other: Voiding Method Diaper Diaper Diaper External Catheter External Catheter External Catheter # Voids 4 # Bowel Movements 1 - Exam GENERAL DESCRIPTION: Middle-age male lying in bed in no distress RESPIRATORY SYSTEM: Unlabored breathing , decreased breath sounds at bases HEART: S1 S2 regular rate and rhythm , ABDOMEN: Soft , no tenderness EXTREMITIES: No edema feet - Labs CBC & Chem 7: 04/05/24 13:03 04/05/24 13:03 Labs: Abnormal Lab Results - Last 24 Hours (Table) 04/06/24 04/06/24 04/07/24 Range/Units 16:13 20: 06:02 POC Glucose (mg/dL) 249 H 294 H 268 H (70-110) mg/dL 04/07/24 Range/Units 11:53 POC Glucose (mg/dL) 274 H (70-110) mg/dL Microbiology - Last 24 Hours (Table) 04/05/24 15:23 Blood Culture - Preliminary Blood Assessment and Plan (1) Fever Current Visit: Yes Status: Acute Code(s): R50.9 - FEVER, UNSPECIFIED SNOMED Code(s): 436738784 (2) Pneumonia Current Visit: No Status: Acute Code(s): J18.9 - PNEUMONIA, UNSPECIFIED ORGANISM SNOMED Code(s): 012229701 Plan: 1patient presented to hospital with fever increasing shortness of breath hypoxemia and also have a cough bring up some yellowish sputum high clinic suspicious for pneumonia to be the likely etiology patient abdominal soft urine is negative no evidence of any cellulitis 2-unfortunately sputum has not been collected, Percocet is not significant elevated blood culture currently pending 3-patient has shown clinical improvement has been cleared for discharge by pulmonary will consider short course of oral doxycycline on discharge discussed with the LANDSCAPE ARCHITECTURE TEACHER for admitting team Dictation was produced using [email or web address] dictation software. please excuse any grammatical, word or spelling errors. Time with Patient: Less than 30
[2024-04-07 16:30] VITALS: PULSE 72
[2024-04-07 16:32] LABS: Glucose,Whole Blood 230 mg/dL (70-110)
--- NOTE | 2024-04-07 18:47 | P.DS ---
Providers Date of admission: 04/05/24 14:50 Expected date of discharge: 04/07/24 Attending physician: Dmitriy Liu MD Consults: 04/05/24 15:37 Consult Physician Urgent Consulting Provider: Kenia Klein Consult Reason/Comments: COPD exacerbation, acute on chronic hypoxic respiratory failure Do you want consulting provider notified?: Yes Consult Physician Urgent Consulting Provider: Gia Hurd Consult Reason/Comments: Fever of unknown origin Do you want consulting provider notified?: Yes Primary care physician: Dmitriy Liu MD Hospital Course: Final diagnoses Acute COPD exacerbation,bibasilar atelectasis and acute tracheobronchitis. Pneumonia ruled out, normal procalcitonin. Acute on chronic hypoxic respiratory failure Chronic Thrombocytopenia, 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 Diabetes mellitus type 2, hemoglobin A1c 7.2 left buttock wound, stage II, present on admission, follows at the wound care center Hypertension History of seizure disorder History of CVA with memory impairment Anxiety/depression Former nicotine dependence Chronic pain syndrome with pain pump Hospital course: This is a 63-year-old gentleman past medical history significant for COPD, atelectasis, pneumonia, former nicotine dependence, hypertension, hyperlipidemia, diabetes mellitus, CVA-resides in a wheelchair and multiple other medical issues presented to the ER with progressive dyspnea overall couple days ,productive cough with whitish sputum, denies fevers. Recently discharged 03-15-24 with similar presentation. Denies nausea, vomiting or diarrhea. Chronic back pain, wearing pain pump. Denies chest pain, palpitations. No family currently at bedside . Chest x-ray reporting low lung volumes with generalized hazy appearance representing atelectasis versus pulmonary edema. proBNP 191. Tmax 100.3, normal WBC. Procalcitonin 0.29. viral studies negative, UA negative. Maintained on antibiotics as per infectious disease. Afebrile. Consumed 75% of breakfast with no nausea, vomiting or diarrhea. Denies abdominal pain.. Maintaining O2 sats of 94% on room air. Normal procalcitonin. Luminary blood cultures reporting no growth. Maintained on aggressive pulmonary toileting with nebulized bronchodilators and IV steroids. Patient has been cleared by infectious disease and pulmonary for discharge. Patient will be discharged home today in a stable condition with guarded prognosis. The impression and plan of care has been dictated as directed. : I performed a history and examination of this patient, discussed the same with the dictator. I agree with the dictator's note ,documented as a scribe. Any additional findings or plans will be noted. Patient Condition at Discharge: Stable Plan - Discharge Summary Discharge Rx Participant: Yes New Discharge Prescriptions: New predniSONE 10 mg PO DIRECTED #18 tab Doxycycline [Vibramycin] 100 mg PO BID 7 Days #14 cap Continue Ferrous Sulfate [Iron (65 MG Elemental)] 325 mg PO HS Primidone [Mysoline] 50 mg PO HS Lacosamide [Vimpat] 200 mg PO BID #6 tab Insulin Lispro [humaLOG Kwikpen] See Protocol SQ ACHS amLODIPine [Norvasc] 2.5 mg PO BID Ipratropium-Albuterol Nebulize [Duoneb 0.5 mg-3 mg/3 ml Soln] 3 ml INHALATION RT-TID Clopidogrel [Plavix] 75 mg PO HS Escitalopram [Lexapro] 20 mg PO HS Rosuvastatin Calcium [Crestor] 40 mg PO HS Aspirin EC [Ecotrin Low Dose] 81 mg PO HS Multivitamins, Thera [Multivitamin (formulary)] 1 tab PO DAILY Insulin Detemir [Levemir Flexpen] 48 units SQ DAILY Lactulose [Cephulac] 20 gm PO TID-W/MEALS Acetaminophen Tab [Tylenol] 1,000 mg PO BID Formoterol Fumarate [Perforomist] 20 mcg INHALATION RT-BID Yupelri 1 vial INHALATION RT-DAILY@1300 Discharge Medication List Ferrous Sulfate [Iron (65 MG Elemental)] 325 mg PO HS 12/10/20 [History] Clopidogrel [Plavix] 75 mg PO HS 06/30/21 [History] Primidone [Mysoline] 50 mg PO HS 06/30/21 [History] Escitalopram [Lexapro] 20 mg PO HS 02/23/23 [History] Rosuvastatin Calcium [Crestor] 40 mg PO HS 03/14/23 [History] Lacosamide [Vimpat] 200 mg PO BID #6 tab 03/16/23 [Rx] Aspirin EC [Ecotrin Low Dose] 81 mg PO HS 05/22/23 [History] Multivitamins, Thera [Multivitamin (formulary)] 1 tab PO DAILY 05/22/23 [History] Insulin Detemir [Levemir Flexpen] 48 units SQ DAILY 06/15/23 [History] Lactulose [Cephulac] 20 gm PO TID-W/MEALS 09/08/23 [History] Insulin Lispro [humaLOG Kwikpen] See Protocol SQ ACHS 10/12/23 [History] Acetaminophen Tab [Tylenol] 1,000 mg PO BID 03/12/24 [History] Formoterol Fumarate [Perforomist] 20 mcg INHALATION RT-BID 03/12/24 [History] Ipratropium-Albuterol Nebulize [Duoneb 0.5 mg-3 mg/3 ml Soln] 3 ml INHALATION RT-TID 03/12/24 [History] amLODIPine [Norvasc] 2.5 mg PO BID 03/12/24 [History] Yupelri 1 vial INHALATION RT-DAILY@1300 04/05/24 [History] Doxycycline [Vibramycin] 100 mg PO BID 7 Days #14 cap 04/07/24 [Rx] predniSONE 10 mg PO DIRECTED #18 tab 04/07/24 [Rx] Follow up Appointment(s)/Referral(s): Dmitriy Liu MD [Primary Care Provider] - 1-2 days (Office closed at time of discharge. Please call during office hours to make an appt.) [facility],Equipment [NON-STAFF] - As Needed (chelita lift) Patient Instructions/Handouts: COPD (Chronic Obstructive Pulmonary Disease) (DC) Discharge Disposition: HOME WITH HOME HEALTH SERVICES
[2024-04-08] MEDS ORDERED: predniSONE 10 MG TAB PO SCH (09:00)
== END 2024-04-07 18:35 | disposition home health service (06) ==
LOC: EC 12:47 → INTOOBSV 14:50 → 4SSUR 14:50 → UNDODISIN 04-07 18:35
PROVIDERS: ADMIT Family Medicine; ATTEND Family Medicine
DX: J44.1 Chronic obstructive pulmonary disease with (acute) exacerbation (principal); J96.21 Acute and chronic respiratory failure with hypoxia; J44.0 Chronic obstructive pulmonary disease with (acute) lower respiratory infection; J20.9 Acute bronchitis, unspecified; I11.0 Hypertensive heart disease with heart failure; I50.9 Heart failure, unspecified; L89.322 Pressure ulcer of left buttock, stage 2; E11.9 Type 2 diabetes mellitus without complications; Z99.81 Dependence on supplemental oxygen; E78.5 Hyperlipidemia, unspecified; D69.6 Thrombocytopenia, unspecified; K74.60 Unspecified cirrhosis of liver; B19.20 Unspecified viral hepatitis C without hepatic coma; I25.10 Atherosclerotic heart disease of native coronary artery without angina pectoris; G89.4 Chronic pain syndrome; M54.9 Dorsalgia, unspecified; M21.371 Foot drop, right foot; M21.372 Foot drop, left foot; J98.11 Atelectasis; I69.311 Memory deficit following cerebral infarction; I25.2 Old myocardial infarction; E66.9 Obesity, unspecified; Z68.28 Body mass index [BMI] 28.0-28.9, adult; F41.9 Anxiety disorder, unspecified; Z99.3 Dependence on wheelchair; Z74.01 Bed confinement status; F32.A Depression, unspecified; Z79.02 Long term (current) use of antithrombotics/antiplatelets; Z79.82 Long term (current) use of aspirin; Z79.4 Long term (current) use of insulin; Z88.5 Allergy status to narcotic agent; Z87.891 Personal history of nicotine dependence; Z79.899 Other long term (current) drug therapy; Z86.69 Personal history of other diseases of the nervous system and sense organs; Z87.01 Personal history of pneumonia (recurrent); Z97.8 Presence of other specified devices; Z11.52 Encounter for screening for COVID-19; Z11.59 Encounter for screening for other viral diseases
CPT/HCPCS: 96376 ×3; 96365; 96366; 96375 ×2; 99285; 36415; 94640 ×6; 94760; 93005; 97162; 97166; 83880; 80053; 83605; 83735; 84484; 85025; 85610; 85730; 81003; 87040; 84145; 87636; 71046; G0378 ×3; J0696 ×2; J2919 ×3; J2470 ×2; 96374

== ENCOUNTER 2024-05-30 15:10 | Observation (INO) | payer OTHER ==
[2024-05-30 15:51] LABS: Basophils % (A) 0 %; Eosinophils # (A) 0.3 k/uL (0-0.7); Eosinophils % (A) 6 %; HCT 36.7 % (39.0-53.0); HGB 12.2 gm/dL (13.0-17.5); Lymphocytes % (A) 19 %; MCH 33.2 pg (25.0-35.0); MCHC 33.3 g/dL (31.0-37.0); MCV 99.7 fL (80.0-100.0); Mean Platelet Volume 7.2; Monocytes # (A) 0.3 k/uL (0-1.0); Monocytes % (A) 6 %; Neutrophils # (A) 3.4 k/uL (1.3-7.7); Neutrophils % (A) 66 %; Platelet Count 100 k/uL (150-450); RBC 3.68 m/uL (4.30-5.90); RDW 13.9 % (11.5-15.5); WBC 5.2 k/uL (3.8-10.6)
--- NOTE | 2024-05-30 15:53 | ED ---
Altered Mental Status HPI - General Chief Complaint: Altered Mental Status Stated Complaint: AMS Time Seen by Provider: 05/30/24 15:33 Source: patient, family, EMS, RN notes reviewed, old records reviewed Mode of arrival: EMS Limitations: no limitations - History of Present Illness Initial Comments: This is a 63-year-old male to the ER for evaluation this patient presents today for evaluation regards to altered mental status and poor historian presents with who states he is not breathing well he is confused decreased activities of daily living sleeping persistently MD Complaint: altered mental status, decreased responsiveness, weakness -: days(s) Consistency of Symptoms: getting worse Context: history of similar presentation Associated Symptoms: denies other symptoms - Related Data Home Medications Medication Instructions Recorded Confirmed Ferrous Sulfate [Iron (65 MG 325 mg PO HS 12/10/20 05/30/24 Elemental)] Clopidogrel [Plavix] 75 mg PO HS 06/30/21 05/30/24 Primidone [Mysoline] 50 mg PO HS 06/30/21 05/30/24 Escitalopram [Lexapro] 20 mg PO HS 02/23/23 05/30/24 Rosuvastatin Calcium [Crestor] 40 mg PO HS 03/14/23 05/30/24 Aspirin EC [Ecotrin Low Dose] 81 mg PO HS 05/22/23 05/30/24 Multivitamins, Thera [Multivitamin 1 tab PO DAILY 05/22/23 05/30/24 (formulary)] Insulin Detemir [Levemir Flexpen] 48 units SQ DAILY 06/15/23 05/30/24 Lactulose [Cephulac] 20 gm PO TID-W/MEALS 09/08/23 05/30/24 Insulin Lispro [humaLOG Kwikpen] See Protocol SQ ACHS 10/12/23 05/30/24 Acetaminophen Tab [Tylenol] 1,000 mg PO BID 03/12/24 05/30/24 Formoterol Fumarate [Perforomist] 20 mcg INHALATION RT-BID 03/12/24 05/30/24 Ipratropium-Albuterol Nebulize 3 ml INHALATION RT-TID 03/12/24 05/30/24 [Duoneb 0.5 mg-3 mg/3 ml Soln] amLODIPine [Norvasc] 2.5 mg PO BID 03/12/24 05/30/24 Yupelri 1 vial INHALATION RT-DAILY@1300 04/05/24 05/30/24 Albuterol Sulfate [Albuterol 2 puff PO RT-Q6H PRN 05/30/24 05/30/24 Sulfate Hfa] Previous Rx's Medication Instructions Recorded Lacosamide [Vimpat] 200 mg PO BID #6 tab 03/16/23 predniSONE 10 mg PO DIRECTED #30 tab 05/31/24 Allergies Allergy/AdvReac Type Severity Reaction Status Date / Time morphine AdvReac Nausea & Verified 05/30/24 18:02 Vomiting Review of Systems ROS Statement: Those systems with pertinent positive or pertinent negative responses have been documented in the HPI. ROS Other: All systems not noted in ROS Statement are negative. Past Medical History Past Medical History: COPD, CVA/TIA, Diabetes Mellitus, Hyperlipidemia, Hypertension, Memory Impairment, Myocardial Infarction (PR), Prostate Disorder, Seizure Disorder, Skin Disorder Additional Past Medical History / Comment(s): duodenal ulcer, pain and numbness cyrus legs and feet,pain pump in back, anemia. TIA X3, HEPATITIS C PAST HISTORY, LAST SEIZURE 2012,hiatal hernia Last Myocardial Infarction Date:: POSSIBLE PR 2012 History of Any Multi-Drug Resistant Organisms: None Reported Past Surgical History: Appendectomy, Back Surgery, Heart Catheterization, Orthopedic Surgery Additional Past Surgical History / Comment(s): titanium lyn in lt leg, skin graph to rt 1st and middle finger, lt eardum replaced, cyrus. foot surgery to arch, cataract surgery bilateral with implant,skin graft left leg Past Anesthesia/Blood Transfusion Reactions: No Reported Reaction Past Psychological History: Anxiety, Depression Smoking Status: Former smoker Past Alcohol Use History: None Reported Past Drug Use History: None Reported - Past Family History Mother Family Medical History: Diabetes Mellitus, Pulmonary Embolus Father Additional Family Medical History / Comment(s): Father had pain problems/hallucinations. He committed suicide. General Exam Limitations: no limitations General appearance: alert, in no apparent distress Head exam: Present: atraumatic, normocephalic, normal inspection Eye exam: Present: normal appearance, PERRL, EOMI. Absent: scleral icterus, conjunctival injection, periorbital swelling ENT exam: Present: normal exam, mucous membranes moist Neck exam: Present: normal inspection. Absent: tenderness, meningismus, lymp hadenopathy Respiratory exam: Present: normal lung sounds bilaterally. Absent: respiratory distress, wheezes, rales, rhonchi, stridor Cardiovascular Exam: Present: regular rate, normal rhythm, normal heart sounds. Absent: systolic murmur, diastolic murmur, rubs, gallop, clicks GI/Abdominal exam: Present: soft, normal bowel sounds. Absent: distended, tenderness, guarding, rebound, rigid Extremities exam: Present: normal inspection, full ROM, normal capillary refill. Absent: tenderness, pedal edema, joint swelling, calf tenderness Back exam: Present: normal inspection Neurological exam: Present: alert, oriented X3, CN II-XII intact Psychiatric exam: Present: normal affect, normal mood Skin exam: Present: warm, dry, intact, normal color. Absent: rash Course Vital Signs 05/30/24 05/30/24 05/30/24 15:30 16:00 16:30 Temperature 98.5 F Pulse Rate 68 62 64 Respiratory 21 18 18 Rate Blood Pressure 152/81 146/80 150/72 O2 Sat by Pulse 95 97 97 Oximetry 05/30/24 05/30/24 05/30/24 17:00 17:30 18:00 Temperature Pulse Rate 60 73 64 Respiratory 16 14 14 Rate Blood Pressure 140/85 141/73 159/80 O2 Sat by Pulse 97 97 97 Oximetry 05/30/24 05/30/24 05/30/24 19:54 20:02 20:10 Temperature 98.8 F Pulse Rate 69 67 64 Respiratory 16 Rate Blood Pressure 139/76 O2 Sat by Pulse 93 L Oximetry 05/30/24 05/31/24 05/31/24 23:29 00:30 02:00 Temperature 98.4 F Pulse Rate 65 67 70 Respiratory 16 16 16 Rate Blood Pressure 144/70 148/82 150/75 O2 Sat by Pulse 97 96 96 Oximetry 05/31/24 05/31/24 05/31/24 04:16 06:25 08:11 Temperature 98.2 F Pulse Rate 79 68 67 Respiratory 18 16 16 Rate Blood Pressure 167/95 138/75 143/74 O2 Sat by Pulse 95 96 95 Oximetry 05/31/24 05/31/24 05/31/24 09:02 09:11 10:17 Temperature Pulse Rate 72 74 79 Respiratory 18 18 16 Rate Blood Pressure 136/68 O2 Sat by Pulse 95 Oximetry 1205/31/24 05/31/24 11:28 15:29 17:35 Temperature Pulse Rate 73 69 66 Respiratory 16 16 16 Rate Blood Pressure 133/65 162/77 154/76 O2 Sat by Pulse 95 96 94 L Oximetry 05/31/24 05/31/24 05/31/24 18:00 19:51 20:08 Temperature 97.8 F 98.1 F Pulse Rate 66 66 66 Respiratory 16 18 Rate Blood Pressure 155/80 161/76 O2 Sat by Pulse 95 97 Oximetry 05/31/24 05/31/24 20:22 21:31 Temperature 98.0 F Pulse Rate 70 73 Respiratory 14 Rate Blood Pressure 147/84 O2 Sat by Pulse 95 Oximetry - Reevaluation(s) Reevaluation #1: 05/30/24 17:30 Records reviewed Reevaluation #2: 05/30/24 17:30 Symptoms unchanged Reevaluation #3: 05/30/24 17:30 Patient informed of results and questions answered Reevaluation #4: Was pt. sent in by a medical professional or institution (, PA, ARC CUTTER, urgent care, hospital, or [facility]...) When possible be specific @ -no Did you speak to anyone other than the patient for history (EMS, parent, family, police, friend...)? What history was obtained from this source @ -no Did you review nursing and triage notes (agree or disagree)? Why? @ -agree Are old charts reviewed (outside hosp., previous admission, EMS record, old EKG, old radiological studies, urgent care reports/EKG's, [facility] records)? Report findings @ -yes Differential Diagnosis (chest pain, altered mental status, abdominal pain women, abdominal pain men, vaginal bleeding, weakness, fever, dyspnea, syncope, headache, dizziness, GI bleed, back pain, seizure, CVA, palpatations, mental health, musculoskeletal)? @ -prior EKG interpreted by me (3pts min.). @ -yes X-rays interpreted by me (1pt min.). @ -yes negative for acute disease CT interpreted by me (1pt min.). @ -Yes negative for acute disease U/S interpreted by me (1pt. min.). @ -no What testing was considered but not performed or refused? (CT, X-rays, U/S, labs)? Why? @ -none What meds were considered but not given or refused? Why? @ -none Did you discuss the management of the patient with other professionals (professionals i.e. , PA, AR[employer] CUTTER, lab, RT, psych nurse, social insurance analyst, silk screen layout drafter, teacher, uniform patrol police officer, classification case manager)? Give summary @ -no Was smoking cessation discussed for >3mins.? @ -no Was critical care preformed (if so, how long)? @ -no Were there social determinants of health that impacted care today? How? (Homelessness, low income, unemployed, alcoholism, drug addiction, transportation, low edu. Level, literacy, decrease access to med. care, assisted, rehab)? @ -none Was there de-escalation of care discussed even if they declined (Discuss DNR or withdrawal of care, Hospice)? DNR status @ -no What co-morbidities impacted this encounter? (DM, HTN, Smoking, COPD, CAD, Cancer, CVA, ARF, Chemo, Hep., AIDS, mental health diagnosis, sleep apnea, morbid obesity)? @ -none Was patient admitted / discharged? Hospital course, mention meds given and route, prescriptions, significant lab abnormalities, going to OR and other pertinent info. @ - 63 Male with altered mental status clamminess weakness dehydration here in the ER patient will be admitted for breathing treatments to monitor dyspnea and concern for underlying infection Admitted Undiagnosed new problem with uncertain prognosis? @ -no Drug Therapy requiring intensive monitoring for toxicity (Heparin, Nitro, Insulin, Cardizem)? @ -no Were any procedures done? @ -no Diagnosis/symptom? @ -chest pain weakness clammy and dyspnea Acute, or Chronic, or Acute on Chronic? @ -Acute Uncomplicated (without systemic symptoms) or Complicated (systemic symptoms)? @ -Complicated Side effects of treatment? @ -no Exacerbation, Progression, or Severe Exacerbation? @ -exacerbation Poses a threat to life or bodily function? How? (Chest pain, USA, PR, pneumonia, PE, COPD, DKA, ARF, appy, cholecystitis, CVA, Diverticulitis, Homicidal, Suicidal, threat to staff... and all critical care pts) @ -yes extremes of age Reevaluation #5: Differential Altered Mental Status: Hypoglycemia, DKA, hypercapnia, ETOH, overdose, CO poisoning, trauma, myxedema coma, HTN encephalopathy, infection, encephalitis, psychosis, intercranial hemorrhage, hepatic encephalopathy, meningitis, CVA, this is not meant to be an all-inclusive list - Consultations Consultation #1: Spoke with admitting physicians will be to admit this patient Medical Decision Making - Medical Decision Making 63 Male with altered mental status clamminess weakness dehydration here in the ER patient will be admitted for breathing treatments to monitor dyspnea and concern for underlying infection - Lab Data Result diagrams: 05/31/24 06:15 05/31/24 06:15 Lab Results 05/30/24 05/30/24 05/30/24 Range/Units 15:34 15:34 15:34 WBC 5.2 (3.8-10.6) k/uL RBC 3.68 L (4.30-5.90) m/uL Hgb 12.2 L (13.0-17.5) gm/dL Hct 36.7 L (39.0-53.0) % MCV 99.7 (80.0-100.0) fL MCH 33.2 (25.0-35.0) pg MCHC 33.3 (31.0-37.0) g/dL RDW 13.9 (11.5-15.5) % Plt Count 100 L (150-450) k/uL MPV 7.2 Neutrophils % 66 % Lymphocytes % 19 % Monocytes % 6 % Eosinophils % 6 % Basophils % 0 % Neutrophils # 3.4 (1.3-7.7) k/uL Lymphocytes # 1.0 (1.0-4.8) k/uL Monocytes # 0.3 (0-1.0) k/uL Eosinophils # 0.3 (0-0.7) k/uL Basophils # 0.0 (0-0.2) k/uL PT 10.8 (10.0-12.5) sec INR 1.0 (<1.2) APTT 22.7 (22.0-30.0) sec VBG pH (7.31-7.41) VBG pCO2 (37-51) mmHg VBG HCO3 (24-28) mmol/L Sodium (137-145) mmol/L Potassium (3.5-5.1) mmol/L Chloride (98-107) mmol/L Carbon Dioxide (22-30) mmol/L Anion Gap mmol/L BUN (9-20) mg/dL Creatinine (0.66-1.25) mg/dL Est GFR (CKD-EPI)AfAm (>60 ml/min/1.73 sqM) Est GFR (CKD-EPI)NonAf (>60 ml/min/1.73 sqM) Glucose (74-99) mg/dL Calcium (8.4-10.2) mg/dL Total Bilirubin (0.2-1.3) mg/dL AST (17-59) U/L ALT (4-49) U/L Alkaline Phosphatase (38-126) U/L Ammonia (<30) umol/L Troponin I (0.000-0.034) ng/mL Total Protein (6.3-8.2) g/dL Albumin (3.5-5.0) g/dL Urine Color Urine Appearance (Clear) Urine pH (5.0-8.0) Ur Specific Gazelle (1.001-1.035) Urine Protein (Negative) Urine Glucose (UA) (Negative) Urine Ketones (Negative) Urine Blood (Negative) Urine Nitrite (Negative) Urine Bilirubin (Negative) Urine Urobilinogen (<2.0) mg/dL Ur Leukocyte Esterase (Negative) Urine Opiates Screen Detected H (NotDetected) Ur Oxycodone Screen Not Detected (NotDetected) Urine Methadone Screen Not Detected (NotDetected) Ur Barbiturates Screen Detected H (NotDetected) U Tricyclic Antidepress Not Detected (NotDetected) Ur Phencyclidine Scrn Not Detected (NotDetected) Ur Amphetamines Screen Not Detected (NotDetected) U Methamphetamines Scrn Not Detected (NotDetected) U Benzodiazepines Scrn Not Detected (NotDetected) Urine Cocaine Screen Not Detected (NotDetected) U Marijuana (THC) Screen Not Detected (NotDetected) Serum Alcohol mg/dL 05/30/24 05/30/24 05/30/24 Range/Units 15:34 15:34 15:34 WBC (3.8-10.6) k/uL RBC (4.30-5.90) m/uL Hgb (13.0-17.5) gm/dL Hct (39.0-53.0) % MCV (80.0-100.0) fL MCH (25.0-35.0) pg MCHC (31.0-37.0) g/dL RDW (11.5-15.5) % Plt Count (150-450) k/uL MPV Neutrophils % % Lymphocytes % % Monocytes % % Eosinophils % % Basophils % % Neutrophils # (1.3-7.7) k/uL Lymphocytes # (1.0-4.8) k/uL Monocytes # (0-1.0) k/uL Eosinophils # (0-0.7) k/uL Basophils # (0-0.2) k/uL PT (10.0-12.5) sec INR (<1.2) APTT (22.0-30.0) sec VBG pH (7.31-7.41) VBG pCO2 (37-51) mmHg VBG HCO3 (24-28) mmol/L Sodium 140 (137-145) mmol/L Potassium 4.2 (3.5-5.1) mmol/L Chloride 105 (98-107) mmol/L Carbon Dioxide 32 H (22-30) mmol/L Anion Gap 3 mmol/L BUN 19 (9-20) mg/dL Creatinine 0.75 (0.66-1.25) mg/dL Est GFR (CKD-EPI)AfAm >90 (>60 ml/min/1.73 sqM) Est GFR (CKD-EPI)NonAf >90 (>60 ml/min/1.73 sqM) Glucose 118 H (74-99) mg/dL Calcium 9.2 (8.4-10.2) mg/dL Total Bilirubin 0.3 (0.2-1.3) mg/dL AST 23 (17-59) U/L ALT 17 (4-49) U/L Alkaline Phosphatase 55 (38-126) U/L Ammonia (<30) umol/L Troponin I <0.012 (0.000-0.034) ng/mL Total Protein 6.5 (6.3-8.2) g/dL Albumin 3.8 (3.5-5.0) g/dL Urine Color Yellow Urine Appearance Clear (Clear) Urine pH 6.5 (5.0-8.0) Ur Specific Gazelle 1.028 (1.001-1.035) Urine Protein Negative (Negative) Urine Glucose (UA) Negative (Negative) Urine Ketones Negative (Negative) Urine Blood Negative (Negative) Urine Nitrite Negative (Negative) Urine Bilirubin Negative (Negative) Urine Urobilinogen 2.0 (<2.0) mg/dL Ur Leukocyte Esterase Negative (Negative) Urine Opiates Screen (NotDetected) Ur Oxycodone Screen (NotDetected) Urine Methadone Screen (NotDetected) Ur Barbiturates Screen (NotDetected) U Tricyclic Antidepress (NotDetected) Ur Phencyclidine Scrn (NotDetected) Ur Amphetamines Screen (NotDetected) U Methamphetamines Scrn (NotDetected) U Benzodiazepines Scrn (NotDetected) Urine Cocaine Screen (NotDetected) U Marijuana (THC) Screen (NotDetected) Serum Alcohol <10 mg/dL 05/30/24 05/30/24 Range/Units 15:34 15:48 WBC (3.8-10.6) k/uL RBC (4.30-5.90) m/uL Hgb (13.0-17.5) gm/dL Hct (39.0-53.0) % MCV (80.0-100.0) fL MCH (25.0-35.0) pg MCHC (31.0-37.0) g/dL RDW (11.5-15.5) % Plt Count (150-450) k/uL MPV Neutrophils % % Lymphocytes % % Monocytes % % Eosinophils % % Basophils % % Neutrophils # (1.3-7.7) k/uL Lymphocytes # (1.0-4.8) k/uL Monocytes # (0-1.0) k/uL Eosinophils # (0-0.7) k/uL Basophils # (0-0.2) k/uL PT (10.0-12.5) sec INR (<1.2) APTT (22.0-30.0) sec VBG pH 7.41 (7.31-7.41) VBG pCO2 49 (37-51) mmHg VBG HCO3 31 H (24-28) mmol/L Sodium (137-145) mmol/L Potassium (3.5-5.1) mmol/L Chloride (98-107) mmol/L Carbon Dioxide (22-30) mmol/L Anion Gap mmol/L BUN (9-20) mg/dL Creatinine (0.66-1.25) mg/dL Est GFR (CKD-EPI)AfAm (>60 ml/min/1.73 sqM) Est GFR (CKD-EPI)NonAf (>60 ml/min/1.73 sqM) Glucose (74-99) mg/dL Calcium (8.4-10.2) mg/dL Total Bilirubin (0.2-1.3) mg/dL AST (17-59) U/L ALT (4-49) U/L Alkaline Phosphatase (38-126) U/L Ammonia 13 (<30) umol/L Troponin I (0.000-0.034) ng/mL Total Protein (6.3-8.2) g/dL Albumin (3.5-5.0) g/dL Urine Color Urine Appearance (Clear) Urine pH (5.0-8.0) Ur Specific [place]elle (1.001-1.035) Urine Protein (Negative) Urine Glucose (UA) (Negative) Urine Ketones (Negative) Urine Blood (Negative) Urine Nitrite (Negative) Urine Bilirubin (Negative) Urine Urobilinogen (<2.0) mg/dL Ur Leukocyte Esterase (Negative) Urine Opiates Screen (NotDetected) Ur Oxycodone Screen (NotDetected) Urine Methadone Screen (NotDetected) Ur Barbiturates Screen (NotDetected) U Tricyclic Antidepress (NotDetected) Ur Phencyclidine Scrn (NotDetected) Ur Amphetamines Screen (NotDetected) U Methamphetamines Scrn (NotDetected) U Benzodiazepines Scrn (NotDetected) Urine Cocaine Screen (NotDetected) U Marijuana (THC) Screen (NotDetected) Serum Alcohol mg/dL - EKG Data -: EKG Interpreted by Me (EKG is sinus 61 IA 150 QRS 92 QTc 4 4) - Radiology Data Radiology results: report reviewed (CT brain negative for acute disease chest x- ray negative for acute disease), image reviewed Disposition Clinical Impression: COPD (chronic obstructive pulmonary disease), COPD exacerbation, Dehydration, Generalized weakness, Delirium due to general medical condition, Altered mental status, Chronic back pain, Chest pain, COPD with hypoxia, Shortness of breath Disposition: ADMITTED IP TO THIS HOSP Condition: Fair Is patient prescribed a controlled substance at d/c from ED?: No Time of Disposition: 17:30
[2024-05-30 16:02] LABS: Partial Thromboplastin Time 22.7 sec (22.0-30.0); Prothrombin Time 10.8 sec (10.0-12.5)
[2024-05-30 16:23] LABS: ALT 17 U/L (4-49); AST 23 U/L (17-59); African American GFR (CKD) >90 (>60 ml/min/1.73 sqM); Albumin 3.8 g/dL (3.5-5.0); Alcohol <10 mg/dL; Alkaline Phosphatase 55 U/L (38-126); Anion Gap 3 mmol/L; Blood Urea Nitrogen 19 mg/dL (9-20); Calcium 9.2 mg/dL (8.4-10.2); Carbon Dioxide 32 mmol/L (22-30); Chloride 105 mmol/L (98-107); Glucose 118 mg/dL (74-99); Non-African American GFR(CKD) >90 (>60 ml/min/1.73 sqM); Potassium 4.2 mmol/L (3.5-5.1); Sodium 140 mmol/L (137-145); Total Bilirubin 0.3 mg/dL (0.2-1.3); Total Protein 6.5 g/dL (6.3-8.2)
--- NOTE | 2024-05-30 16:28 | XR ---
EXAMINATION TYPE: XR chest 2V DATE OF EXAM: 05/30/2024 4:24 PM COMPARISON: Chest radiographs from 04/05/2024 CLINICAL INDICATION: Male, 63 years old with history of altered mental status; TECHNIQUE: XR chest 2V Frontal and lateral views of the chest. FINDINGS: Lungs/Pleura: There is no evidence of pleural effusion, focal consolidation, or pneumothorax. Pulmonary vascularity: Unremarkable. Heart/mediastinum: Cardiomediastinal silhouette is unremarkable. Musculoskeletal: No acute osseous pathology. IMPRESSION: Low lung volumes with a generalized hazy appearance which could represent atelectasis. [facility], Workstation: [facility], 05/30/2024 4:26 PM
--- NOTE | 2024-05-30 16:29 | CT ---
EXAMINATION TYPE: CT brain wo con DATE OF EXAM: 05/30/2024 4:23 PM COMPARISON: 10/12/2023. CLINICAL INDICATION: Male, 63 years old with history of Altered mental status, AMS TECHNIQUE: Brain: Axial CT images of the brain were obtained with coronal and sagittal reformats created and rev iewed. Contrast used: None. Oral contrast used: None. CT DLP: 1248.4 mGycm, Automated exposure control for dose reduction was used. FINDINGS: Brain: Extra-axial spaces: No abnormal extra-axial fluid collections. Ventricular system: Dilatation in proportion to cerebral atrophy. Cerebral parenchyma: Remote right frontal lobe injury with encephalomalacia.. Cerebral atrophy. No ac [place] intraparenchymal hemorrhage or mass effect. The brooks-white junction is well differentiated. Scat tered hypoattenuating areas are seen within the white matter. Cerebellum: Unremarkable. Mass effect: No evidence of midline shift. Intracranial vasculature: Atherosclerotic calcifications of the intracranial vessels. Soft tissues: Normal. Calvarium/osseous structures: No depressed skull fracture. Paranasal sinuses and mastoid air cells: Mild scattered paranasal sinus disease. Visualized orbits: Bilateral aphakia IMPRESSION: 1. No acute intracranial process. 2. Nonspecific white matter changes, likely secondary to chronic small vessel ischemic disease. 3. Remote right frontal lobe injury. [facility], Workstation: [facility], 05/30/2024 4:27 PM
[2024-05-30 16:55] LABS: VBG PH 7.41 (7.31-7.41)
[2024-05-30] MEDS ORDERED: NALOXONE 0.4 MG/ML 1 ML VIAL IV PRN (17:25)
[2024-05-30 17:38] LABS: Appearance,Urine Clear (Clear); Bilirubin,Urine Negative (Negative); Blood,Urine Negative (Negative); Color,Urine Yellow; Glucose,Urine (UA) Negative (Negative); Ketones,Urine Negative (Negative); Leukocyte Esterase,Urine Negative (Negative); Nitrite,Urine Negative (Negative); PH, Urine 6.5 (5.0-8.0); Protein,Urine Negative (Negative); Specific Gravity,Urine 1.028 (1.001-1.035)
[2024-05-30 17:46] LABS: Amphetamine Screen,Urine Not Detected (NotDetected); Barbiturate Screen,Urine Detected (NotDetected); Benzodiazepines Screen,Urine Not Detected (NotDetected); Cocaine Screen,Urine Not Detected (NotDetected); Methadone Screen, Urine Not Detected (NotDetected); Opiate Screen,Urine Detected (NotDetected); Oxycodone Screen, Urine Not Detected (NotDetected); Phencyclidine Screen,Urine Not Detected (NotDetected); Tricyclic Antidepressant,Urine Not Detected (NotDetected); Urn Cannabinoid Scrn Not Detected (NotDetected)
[2024-05-30] MEDS: methylPREDNISolone SOD SUCCI 125 MG/2 ML VIAL IV STA (18:49)
[2024-05-30] MEDS: SODIUM CHLORIDE 0.9% 1,000 ML IV SCH (18:49)
[2024-05-30] MEDS ORDERED: IPRATROPIUM-ALBUTEROL 3 ML NEB INHALATION SCH (20:00)
[2024-05-30] MEDS: IPRATROPIUM-ALBUTEROL 3 ML NEB INHALATION STA (20:00)
[2024-05-30] MEDS ORDERED: IPRATROPIUM-ALBUTEROL 3 ML NEB INHALATION PRN (20:03)
[2024-05-31] MEDS: methylPREDNISolone SOD SUCCI 125 MG/2 ML VIAL IV SCH
[2024-05-31 02:09] LABS: Glucose,Whole Blood 194 mg/dL (70-110)
[2024-05-31] MEDS: IPRATROPIUM-ALBUTEROL 3 ML NEB INHALATION SCH (09:00)
[2024-05-31 09:02] LABS: Basophils # (A) 0.01 X 10*3/uL (0.00-0.10); Basophils % (A) 0.2 %; Eosinophils # (A) 0.01 X 10*3/uL (0.04-0.35); Eosinophils % (A) 0.2 %; HCT 37.4 % (39.6-50.0); HGB 12.4 g/dL (13.0-17.0); Lymphocytes # (A) 0.45 X 10*3/uL (0.90-5.00); Lymphocytes % (A) 8.4 %; MCH 32.3 pg (27.0-32.0); MCHC 33.2 g/dL (32.0-37.0); MCV 97.4 FL (80.0-97.0); Monocytes # (A) 0.05 X 10*3/uL (0.20-1.00); Monocytes % (A) 0.9 %; NRBC Per 100 WBC 0 X 10*3/uL (0.00-0.01); Neutrophils # (A) 4.77 X 10*3/uL (1.80-7.70); Neutrophils % (A) 89.2 %; Platelet Count 106 X 10*3/uL (140-440); RBC 3.84 X 10*6/uL (4.40-5.60); RDW 13.2 % (11.5-14.5); WBC 5.35 X 10*3/uL (4.50-10.00)
[2024-05-31 09:20] LABS: ALT 15 U/L (10-49); AST 21 U/L (14-35); Albumin 3.9 g/dL (3.8-4.9); Albumin/Globulin Ratio 1.44 Ratio (1.60-3.17); Alkaline Phosphatase 61 U/L (41-126); Blood Urea Nitrogen 18.2 mg/dL (9.0-27.0); Carbon Dioxide 25.1 mmol/L (21.6-31.8); Chloride 104 mmol/L (96-109); Globulin 2.7 g/dL (1.6-3.3); Glucose 181 mg/dL (70-110); Magnesium 1.9 mg/dL (1.5-2.4); Phosphorus 4.3 mg/dL (2.4-5.1); Potassium 4.5 mmol/L (3.5-5.5); Sodium 141 mmol/L (135-145); Total Bilirubin 0.3 mg/dL (0.3-1.2); Total Protein 6.6 g/dL (6.2-8.2)
--- NOTE | 2024-05-31 11:27 | P.HPIM ---
History of Present Illness H&P Date: 05/31/24 Chief Complaint: Altered mental status, shortness of breath History and Physical and Discharge Summary: This is a 63-year-old gentleman past medical history significant for chronic pain syndrome with pain pump ,COPD, atelectasis, pneumonia, former nicotine dependence, hypertension, hyperlipidemia, diabetes mellitus, CVA-resides in a wheelchair, frequent admissions-declines ANTONY/ECF and multiple other medical issues brought into the ER with complaints of altered mental status, shortness of breath, sleeping longer periods of time. patient currently sitting up on stretcher, eating breakfast. Denies chest pain, palpitations or increased shortness of breath. EKG reported sinus rhythm, troponin denies diaphoresis, clamminess or fatigue. Denies lightheadedness, dizziness or focal deficits. Vital signs stable. afebrile, normal WBC, maintaining O2 sats in the mid to high 90s on 2 L nasal cannula. Venous bicarb 31, serum bicarb 32 on admission currently down to 25.1, BUN 18.2, creatinine 0.7. Hemoglobin 12.4, platelets 106, INR 1. Electrolytes within normal limits. Glucose 181. Brain CT reported no acute intracranial process. Chest x-ray reported low lung volumes with generalized hazy appearance which could represent atelectasis. Review of Systems ROS Other: All systems not noted in ROS Statement are negative. ROS Statement: Those systems with pertinent positive or pertinent negative responses have been documented in the HPI. Past Medical History Past Medical History: COPD, CVA/TIA, Diabetes Mellitus, Hyperlipidemia, Hypertension, Memory Impairment, Myocardial Infarction ([place]), Prostate Disorder, Seizure Disorder, Skin Disorder Additional Past Medical History / Comment(s): duodenal ulcer, pain and numbness cyrus legs and feet,pain pump in back, anemia. TIA X3, HEPATITIS C PAST HISTORY, LAST SEIZURE 2012,hiatal hernia Last Myocardial Infarction Date:: POSSIBLE [place] 2012 History of Any Multi-Drug Resistant Organisms: None Reported Past Surgical History: Appendectomy, Back Surgery, Heart Catheterization, Orthopedic Surgery Additional Past Surgical History / Comment(s): titanium lyn in lt leg, skin graph to rt 1st and middle finger, lt eardum replaced, cyrus. foot surgery to arch, cataract surgery bilateral with implant,skin graft left leg Past Anesthesia/Blood Transfusion Reactions: No Reported Reaction Past Psychological History: Anxiety, Depression Smoking Status: Former smoker Past Alcohol Use History: None Reported Past Drug Use History: None Reported - Past Family History Mother Family Medical History: Diabetes Mellitus, Pulmonary Embolus Father Additional Family Medical History / Comment(s): Father had pain problems/hallucinations. He committed suicide. Medications and Allergies Home Medications Medication Instructions Recorded Confirmed Type Ferrous Sulfate [Iron (65 MG 325 mg PO HS 12/10/20 05/30/24 History Elemental)] Clopidogrel [Plavix] 75 mg PO HS 06/30/21 05/30/24 History Primidone [Mysoline] 50 mg PO HS 06/30/21 05/30/24 History Escitalopram [Lexapro] 20 mg PO HS 02/23/23 05/30/24 History Rosuvastatin Calcium [Crestor] 40 mg PO HS 03/14/23 05/30/24 History Lacosamide [Vimpat] 200 mg PO BID #6 tab 03/16/23 05/30/24 Rx Aspirin EC [Ecotrin Low Dose] 81 mg PO HS 05/22/23 05/30/24 History Multivitamins, Thera [Multivitamin 1 tab PO DAILY 05/22/23 05/30/24 History (formulary)] Insulin Detemir [Levemir Flexpen] 48 units SQ DAILY 06/15/23 05/30/24 History Lactulose [Cephulac] 20 gm PO TID-W/MEALS 09/08/23 05/30/24 History Insulin Lispro [humaLOG Kwikpen] See Protocol SQ ACHS 10/12/23 05/30/24 History Acetaminophen Tab [Tylenol] 1,000 mg PO BID 03/12/24 05/30/24 History Formoterol Fumarate [Perforomist] 20 mcg INHALATION RT-BID 03/12/24 05/30/24 History Ipratropium-Albuterol Nebulize 3 ml INHALATION RT-TID 03/12/24 05/30/24 History [Duoneb 0.5 mg-3 mg/3 ml Soln] amLODIPine [Norvasc] 2.5 mg PO BID 03/12/24 05/30/24 History Yupelri 1 vial INHALATION RT-DAILY@1300 04/05/24 05/30/24 History Albuterol Sulfate [Albuterol 2 puff PO RT-Q6H PRN 05/30/24 05/30/24 History Sulfate Hfa] predniSONE 10 mg PO DIRECTED #30 tab 05/31/24 Rx Allergies Allergy/AdvReac Type Severity Reaction Status Date / Time morphine AdvReac Nausea & Verified 05/30/24 18:02 Vomiting Physical Exam Vitals: Vital Signs Temp Pulse Resp BP Pulse Ox 05/31/24 09:11 74 18 05/31/24 09:02 72 18 05/31/24 08:11 67 16 143/74 95 05/31/24 06:25 98.2 F 68 16 138/75 96 05/31/24 04:16 79 18 167/95 95 05/31/24 02:00 70 16 150/75 96 05/31/24 00:30 67 16 148/82 96 05/30/24 23:29 98.4 F 65 16 144/70 97 05/30/24 20:10 64 05/30/24 20:02 67 05/30/24 19:54 98.8 F 69 16 139/76 93 L 05/30/24 18:00 64 14 159/80 97 05/30/24 17:30 73 14 141/73 97 05/30/24 17:00 60 16 140/85 97 05/30/24 16:30 64 18 150/72 97 05/30/24 16:00 62 18 146/80 97 05/30/24 15:30 98.5 F 68 21 152/81 95 Intake and Output 05/30/24 05/31/24 05/31/24 22:59 06:59 14:59 Intake Total 250 Output Total 800 Balance -550 Intake: Oral 250 Output: Urine 800 Other: Weight 88.995 kg General: Alert and oriented 3, sitting up on stretcher, no acute distress Head: atraumatic normocephalic. Eyes PERRL, mucous membranes moist Respiratory: Unlabored, equal air entry, scattered fine expiratory wheeze Cardiovascular: S1-S2, regular rhythm, no audible murmur Abdominal: Soft, nondistended, nontender,no guarding or rebound. Neuroogic: CN II-XII intact, no focal deficits. Prior [id number]. Skin: warm dry, left buttock chronic wound ulceration, stage II, left calf skin graft Results CBC & Chem 7: 05/31/24 06:15 12/18/24 06:15 Labs: Abnormal Lab Results - Last 24 Hours (Table) 05/30/24 05/30/24 05/30/24 Range/Units 15:34 15:34 15:34 RBC 3.68 L (4.30-5.90) m/uL Hgb 12.2 L (13.0-17.5) gm/dL Hct 36.7 L (39.0-53.0) % MCV (80.0-97.0) FL MCH (27.0-32.0) pg Plt Count 100 L (150-450) k/uL Immature Gran # (0.00-0.04) X 10*3/uL Lymphocytes # (0.90-5.00) X 10*3/uL Monocytes # (0.20-1.00) X 10*3/uL Eosinophils # (0.04-0.35) X 10*3/uL VBG HCO3 (24-28) mmol/L Carbon Dioxide 32 H (22-30) mmol/L BUN/Creatinine Ratio (12.00-20.00) Ratio Glucose 118 H (74-99) mg/dL POC Glucose (mg/dL) (70-110) mg/dL Albumin/Globulin Ratio (1.60-3.17) Ratio Urine Opiates Screen Detected H (NotDetected) Ur Barbiturates Screen Detected H (NotDetected) 05/30/24 05/31/24 05/31/24 Range/Units 15:48 02:08 06:15 RBC 3.84 L (4.30-5.90) m/uL Hgb 12.4 L (13.0-17.5) gm/dL Hct 37.4 L (39.0-53.0) % MCV 97.4 H (80.0-97.0) FL MCH 32.3 H (27.0-32.0) pg Plt Count 106 L (150-450) k/uL Immature Gran # 0.06 H (0.00-0.04) X 10*3/uL Lymphocytes # 0.45 L (0.90-5.00) X 10*3/uL Monocytes # 0.05 L (0.20-1.00) X 10*3/uL Eosinophils # 0.01 L (0.04-0.35) X 10*3/uL VBG HCO3 31 H (24-28) mmol/L Carbon Dioxide (22-30) mmol/L BUN/Creatinine Ratio (12.00-20.00) Ratio Glucose (74-99) mg/dL POC Glucose (mg/dL) 194 H (70-110) mg/dL Albumin/Globulin Ratio (1.60-3.17) Ratio Urine Opiates Screen (NotDetected) Ur Barbiturates Screen (NotDetected) 05/31/24 Range/Units 06:15 RBC (4.30-5.90) m/uL Hgb (13.0-17.5) gm/dL Hct (39.0-53.0) % MCV (80.0-97.0) FL MCH (27.0-32.0) pg Plt Count (150-450) k/uL Immature Gran # (0.00-0.04) X 10*3/uL Lymphocytes # (0.90-5.00) X 10*3/uL Monocytes # (0.20-1.00) X 10*3/uL Eosinophils # (0.04-0.35) X 10*3/uL VBG HCO3 (24-28) mmol/L Carbon Dioxide (22-30) mmol/L BUN/Creatinine Ratio 26.00 H (12.00-20.00) Ratio Glucose 181 H (74-99) mg/dL POC Glucose (mg/dL) (70-110) mg/dL Albumin/Globulin Ratio 1.44 L (1.60-3.17) Ratio Urine Opiates Screen (NotDetected) Ur Barbiturates Screen (NotDetected) Assessment and Plan Assessment: Altered mental status, shortness of breath in a patient who has chronic pain syndrome with pain pump, nonelevated ammonia level. 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 Ammonia level pending. patient will be discharged home today in a stable condition with guarded prognosis pending pulmonary evaluation, final DC recommendations and clearance for discharge. Discharge Medication List Ferrous Sulfate [Iron (65 MG Elemental)] 325 mg PO HS 12/10/20 [History] Clopidogrel [Plavix] 75 mg PO HS 06/30/21 [History] Primidone [Mysoline] 50 mg PO HS 06/30/21 [History] Escitalopram [Lexapro] 20 mg PO HS 02/23/23 [History] Rosuvastatin Calcium [Crestor] 40 mg PO HS 03/14/23 [History] Lacosamide [Vimpat] 200 mg PO BID #6 tab 03/16/23 [Rx] Aspirin EC [Ecotrin Low Dose] 81 mg PO HS 05/22/23 [History] Multivitamins, Thera [Multivitamin (formulary)] 1 tab PO DAILY 05/22/23 [History] Insulin Detemir [Levemir Flexpen] 48 units SQ DAILY 06/15/23 [History] Lactulose [Cephulac] 20 gm PO TID-W/MEALS 09/08/23 [History] Insulin Lispro [humaLOG Kwikpen] See Protocol SQ ACHS 10/12/23 [History] Acetaminophen Tab [Tylenol] 1,000 mg PO BID 03/12/24 [History] Formoterol Fumarate [Perforomist] 20 mcg INHALATION RT-BID 03/12/24 [History] Ipratropium-Albuterol Nebulize [Duoneb 0.5 mg-3 mg/3 ml Soln] 3 ml INHALATION RT-TID 03/12/24 [History] amLODIPine [Norvasc] 2.5 mg PO BID 03/12/24 [History] Yupelri 1 vial INHALATION RT-DAILY@1300 04/05/24 [History] Albuterol Sulfate [Albuterol Sulfate Hfa] 2 puff PO RT-Q6H PRN 05/30/24 [History] predniSONE 10 mg PO DIRECTED #30 tab 05/31/24 [Rx] The impression and plan of care has been dictated as directed. : I performed a history and examination of this patient, discussed the same with the dictator. I agree with the dictator's note ,documented as a scribe. Any additional findings or plans will be noted.
[2024-05-31 11:53] LABS: ABG Base Excess 2.2 mmol/L; ABG HCO3 28 mmol/L (21-25); ABG Oxygen Saturation 94.9 % (94-97); ABG PCO2 45 mmHg (35-45); ABG PH 7.39 (7.35-7.45); ABG PO2 74 mmHg (83-108); ABG TCO2 29 mmol/L (19-24); Allen Test Performed? Yes
[2024-05-31] MEDS ORDERED: DEXTROSE 50% SYRINGE 50 ML IVP PRN ×2 (13:58)
[2024-05-31 15:31] LABS: Glucose,Whole Blood 209 mg/dL (70-110)
[2024-05-31] MEDS: INSULIN DETEMIR (LEVEMIR) 100 UNIT/ML SYR SQ SCH (15:38)
[2024-05-31] MEDS: PANTOPRAZOLE 40 MG/10 ML VIAL IVP SCH (15:38)
[2024-05-31] MEDS: LACOSAMIDE 50 MG TABLET PO SCH (15:41)
[2024-05-31 17:39] LABS: Glucose,Whole Blood 185 mg/dL (70-110)
[2024-05-31] MEDS: INSULIN ASPART (NovoLOG) 100 UNIT/ML VIAL SQ SCH (18:02)
[2024-05-31] MEDS: LACTULOSE 20 GM/30 ML CUP PO SCH (18:04)
[2024-05-31] MEDS: FORMOTEROL FUMARATE 20 MCG/2 ML NEBU INHALATION SCH (20:08)
[2024-05-31] MEDS: ACETAMINOPHEN TAB 325 MG TAB PO PRN (20:22)
[2024-05-31 21:31] LABS: Glucose,Whole Blood 224 mg/dL (70-110)
--- NOTE | 2024-05-31 21:32 | P.CNPUL ---
History of Present Illness Consult date: 05/31/24 History of present illness: This is a 63-year-old male patient with known history of advanced COPD with an FEV1 of 58% of predicted, maintained on a combination of Yupelri, Perforomist and Pulmicort as maintenance on an outpatient basis in addition to albuterol on as-needed basis. He is also known to have multiple comorbidities including liver cirrhosis with previous hepatitis C, diabetes mellitus type 2, previous history of CVA and right-sided weakness and the patient is walking with the help of a cane, hyperlipidemia, hypertension, history of stable infrarenal abdominal aortic dissection, peripheral vascular disease with previous angioplasty of the left SFA, diabetes mellitus and previous history of aspiration pneumonia. The patient came into the emergency department with some diminished level of consciousness and altered mentation. He also was noted not breathing well and had decreased level of activity and feeling more sleepy. For that reason, the patient was brought in to the emergency department. He was found to be afebrile and hemodynamically stable. His blood work showed a white cell count of 5.2 with a hemoglobin 12.2 and a platelet count of 100. BUN is 19 with a creatinine 0.7. The sodium is at 140 and a potassium level is at 4.2 with a glucose of 118. Normal coagulation profile. LFTs are normal. Serum alcohol level was less than 10. Blood gas was done that showed a pH of 7.39 with a pCO2 of 45 and pO2 of 74. LFTs are normal. Serum ammonia level was checked and was less than 9. Chest x-ray done showed smaller lung volumes and some atelectatic changes in lung bases bilaterally. CAT scan of the brain showed no acute i ntracranial process. There is cerebral atrophy, remote right frontal lobe infarct with encephalomalacia. The patient was started on IV fluids with normal saline at rate of 75 cc an hour. Maintained on Levemir insulin 25 units and NovoLog sliding scale coverage. No seizure activity and the patient remains on Vimpat. Remains on Plavix. Maintenance respiratory medication clued performance of Pulmicort updrafts and DuoNeb nebulized treatments 3 times a day [id number]. Receiving lactulose for chronic constipation. Noted the patient also has a chronic pain stimulator Review of Systems CONSTITUTIONAL: Denies any recent significant weight loss or weight gain. Patient is debilitated and he is wheelchair-bound. He has chronic muscle atrophy in lower extremities bilaterally. He suffers from chronic back pain. EYES: Denies change in vision. EARS, NOSE, MOUTH, THROAT: Denies headaches, denies sore throat. CARDIOVASCULAR: Denies chest pain, palpitations or syncopal episodes. RESPIRATORY: Positive for shortness of breath, cough, congestion no hemoptysis. No significant shortness of breath at this point in time at time of my evaluation. GASTROINTESTINAL: Denies change in appetite, denies abdominal pain GENITOURINARY: Denies hematuria, denies infections. MUSKULOSKELETAL: Denies pain, denies swelling. Motor weakness in lower extremities bilaterally. INTEGUMENTARY: Denies rash, denies eczema. NEUROLOGICAL: memory loss, no recent seizure activity. Mental status was noted to be diminished by family members. Difficulties with mobility and the patient has previous CVA. PSYCHIATRIC: Denies anxiety, denies depression. HEMATOLOGIC/LYMPHATIC: Denies anemia, denies enlarged lymph nodes. Past Medical History Past Medical History: COPD, CVA/TIA, Diabetes Mellitus, Hyperlipidemia, Hypertension, Memory Impairment, Myocardial Infarction ([place]), Prostate Disorder, Seizure Disorder, Skin Disorder Additional Past Medical History / Comment(s): duodenal ulcer, pain and numbness cyrus legs and feet,pain pump in back, anemia. TIA X3, HEPATITIS C PAST HISTORY, LAST SEIZURE 2012,hiatal hernia Last Myocardial Infarction Date:: POSSIBLE [place] 2012 History of Any Multi-Drug Resistant Organisms: None Reported Past Surgical History: Appendectomy, Back Surgery, Heart Catheterization, Orthopedic Surgery Additional Past Surgical History / Comment(s): titanium lyn in lt leg, skin graph to rt 1st and middle finger, lt eardum replaced, cyrus. foot surgery to arch, cataract surgery bilateral with implant,skin graft left leg Past Anesthesia/Blood Transfusion Reactions: No Reported Reaction Past Psychological History: Anxiety, Depression Smoking Status: Former smoker Past Alcohol Use History: None Reported Past Drug Use History: None Reported - Past Family History Mother Family Medical History: Diabetes Mellitus, Pulmonary Embolus Father Additional Family Medical History / Comment(s): Father had pain problems/hallucinations. He committed suicide. Medications and Allergies Home Medications Medication Instructions Recorded Confirmed Type Ferrous Sulfate [Iron (65 MG 325 mg PO HS 12/10/20 05/30/24 History Elemental)] Clopidogrel [Plavix] 75 mg PO HS 06/30/21 05/30/24 History Primidone [Mysoline] 50 mg PO HS 06/30/21 05/30/24 History Escitalopram [Lexapro] 20 mg PO HS 02/23/23 05/30/24 History Rosuvastatin Calcium [Crestor] 40 mg PO HS 03/14/23 05/30/24 History Lacosamide [Vimpat] 200 mg PO BID #6 tab 03/16/23 05/30/24 Rx Aspirin EC [Ecotrin Low Dose] 81 mg PO HS 05/22/23 05/30/24 History Multivitamins, Thera [Multivitamin 1 tab PO DAILY 05/22/23 05/30/24 History (formulary)] Insulin Detemir [Levemir Flexpen] 48 units SQ DAILY 06/15/23 05/30/24 History Lactulose [Cephulac] 20 gm PO TID-W/MEALS 09/08/23 05/30/24 History Insulin Lispro [humaLOG Kwikpen] See Protocol SQ ACHS 10/12/23 05/30/24 History Acetaminophen Tab [Tylenol] 1,000 mg PO BID 03/12/24 05/30/24 History Formoterol Fumarate [Perforomist] 20 mcg INHALATION RT-BID 03/12/24 05/30/24 History Ipratropium-Albuterol Nebulize 3 ml INHALATION RT-TID 03/12/24 05/30/24 History [Duoneb 0.5 mg-3 mg/3 ml Soln] amLODIPine [Norvasc] 2.5 mg PO BID 03/12/24 05/30/24 History Yupelri 1 vial INHALATION RT-DAILY@1300 04/05/24 05/30/24 History Albuterol Sulfate [Albuterol 2 puff PO RT-Q6H PRN 05/30/24 05/30/24 History Sulfate Hfa] predniSONE 10 mg PO DIRECTED #30 tab 05/31/24 Rx Allergies Allergy/AdvReac Type Severity Reaction Status Date / Time morphine AdvReac Nausea & Verified 05/30/24 18:02 Vomiting Physical Exam Vitals: Vital Signs Temp Pulse Resp BP Pulse Ox 05/31/24 20:22 70 05/31/24 20:08 66 05/31/24 19:51 98.1 F 66 18 161/76 97 05/31/24 18:00 97.8 F 66 16 155/80 95 05/31/24 17:35 66 16 154/76 94 L 05/31/24 15:29 69 16 162/77 96 05/31/24 11:28 73 16 133/65 95 05/31/24 10:17 79 16 136/68 95 05/31/24 09:11 74 18 05/31/24 09:02 72 18 05/31/24 08:11 67 16 143/74 95 05/31/24 06:25 98.2 F 68 16 138/75 96 05/31/24 04:16 79 18 167/95 95 05/31/24 02:00 70 16 150/75 96 05/31/24 00:30 67 16 148/82 96 05/30/24 23:29 98.4 F 65 16 144/70 97 Intake and Output 05/31/24 05/31/24 05/31/24 06:59 14:59 22:59 Intake Total 250 Output Total 800 1450 Balance -550 -1450 Intake: Oral 250 Output: Urine 800 1450 GENERAL EXAM: Alert, 63-year-old male, resting comfortably in bed, currently on 2 L of oxygen by nasal cannula, awake and alert and communicating HEAD: Normocephalic. EYES: Normal reaction of pupils, equal size. NOSE: Clear with pink turbinates. THROAT: No erythema or exudates. NECK: No masses, no JVD. CHEST: No chest wall deformity. LUNGS: Equal air entry with no crackles, wheeze, rhonchi or dullness. CVS: S1 and S2 normal with no audible murmur, regular rhythm. ABDOMEN: No hepatosplenomegaly, normal bowel sounds, no guarding or rigidity. SPINE: No scoliosis or deformity SKIN: No rashes, pressure ulcer of the previously inserted pain pump with superficial ulceration and some minimal amount of purulence. CENTRAL NERVOUS SYSTEM: Deficits from previous CVA, tone is normal in all 4 extremities. EXTREMITIES: Weakness, wheelchair-bound, there is no peripheral edema. No clubbing, no cyanosis. Peripheral pulses are intact. Results - Laboratory Findings CBC and BMP: 05/31/24 06:15 05/31/24 06:15 ABG ABG pH 7.39 (7.35-7.45) 05/31/24 11:46 ABG pCO2 45 mmHg (35-45) 05/31/24 11:46 ABG pO2 74 mmHg (83-108) L 05/31/24 11:46 ABG O2 Saturation 94.9 % (94-97) 05/31/24 11:46 PT/INR, D-dimer PT 10.8 sec (10.0-12.5) 05/30/24 15:34 INR 1.0 (<1.2) 05/30/24 15:34 Abnormal lab findings: Abnormal Labs 05/30/24 05/30/24 05/30/24 15:34 15:34 15:34 RBC 3.68 L Hgb 12.2 L Hct 36.7 L MCV MCH Plt Count 100 L Immature Gran # Lymphocytes # Monocytes # Eosinophils # ABG pO2 ABG HCO3 ABG Total CO2 VBG HCO3 Hemoglobin Carbon Dioxide 32 H BUN/Creatinine Ratio Glucose 118 H POC Glucose (mg/dL) Albumin/Globulin Ratio Urine Opiates Screen Detected H Ur Barbiturates Screen Detected H 05/30/24 05/31/24 05/31/24 15:48 02:08 06:15 RBC 3.84 L Hgb 12.4 L Hct 37.4 L MCV 97.4 H MCH 32.3 H Plt Count 106 L Immature Gran # 0.06 H Lymphocytes # 0.45 L Monocytes # 0.05 L Eosinophils # 0.01 L ABG pO2 ABG HCO3 ABG Total CO2 VBG HCO3 31 H Hemoglobin Carbon Dioxide BUN/Creatinine Ratio Glucose POC Glucose (mg/dL) 194 H Albumin/Globulin Ratio Urine Opiates Screen Ur Barbiturates Screen 05/31/24 05/31/24 05/31/24 06:15 11:46 15:28 RBC Hgb Hct MCV MCH Plt Count Immature Gran # Lymphocytes # Monocytes # Eosinophils # ABG pO2 74 L ABG HCO3 28 H ABG Total CO2 29 H VBG HCO3 Hemoglobin 11.8 L Carbon Dioxide BUN/Creatinine Ratio 26.00 H Glucose 181 H POC Glucose (mg/dL) 209 H Albumin/Globulin Ratio 1.44 L Urine Opiates Screen Ur Barbiturates Screen 05/31/24 17:38 RBC Hgb Hct MCV MCH Plt Count Immature Gran # Lymphocytes # Monocytes # Eosinophils # ABG pO2 ABG HCO3 ABG Total CO2 VBG HCO3 Hemoglobin Carbon Dioxide BUN/Creatinine Ratio Glucose POC Glucose (mg/dL) 185 H Albumin/Globulin Ratio Urine Opiates Screen Ur Barbiturates Screen Assessment and Plan Plan: Altered mental status of unclear etiology, improved. There may be a component of chronic encephalopathy related to chronic liver cirrhosis. Nevertheless, the ammonia level is nonelevated. No focal neurological deficits. No seizure activity and a CAT scan of the brain was repeated and shows chronic cerebral atrophy with old frontal stroke and encephalomalacia without any acute abnormalities. The patient has been maintained on Vimpat. CAT scan of the brain also shows Moderate ventriculomegaly which may be essentially consistent with normal pressure hydrocephalus. He has a remote right frontal infarct. Chronic hypoxic respiratory failure currently on O2 at 2 L/min nasal cannula Severe COPD with an FEV1 of 58% of predicted Fever, currently afebrile and patient is covered empirically with IV Zosyn. Rule out underlying urine tract infection. He does have a superficial wound infection on his buttocks at the site of the pain pump insertion. Superficial wound over the buttocks without any abscess formation. General surgery is on the case. 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 Obviously, this can be multifactorial No signs of any infection or COPD exacerbation No signs of any acute infection at this point Continue home medications CAT scan of the brain was noted No seizure activity and the patient is on the path Serum ammonia level is not elevated Labs are essentially stable and the blood gas shows no evidence of any hypercapnic respiratory failure or significant hypoxemia Resume bronchodilators Continue laxatives Will continue to follow Poor overall functional performance based on the above-mentioned multiple comorbidities
[2024-06-01] MEDS: CLOPIDOGREL 75 MG TAB PO SCH (00:09)
[2024-06-01] MEDS: FERROUS SULFATE 325 MG TAB PO SCH (00:09)
[2024-06-01] MEDS: ATORVASTATIN 80 MG TAB PO SCH (00:09)
[2024-06-01] MEDS: IBUPROFEN 400 MG TAB PO PRN (00:09)
[2024-06-01] MEDS: ESCITALOPRAM 20 MG TAB PO SCH (00:09)
[2024-06-01] MEDS: PRIMIDONE 50 MG TAB PO SCH (00:09)
[2024-06-01] MEDS: ZINC OXIDE PASTE (Z-GUARD) 1 APPLIC TOPICAL SCH (02:32)
[2024-06-01 06:10] LABS: Glucose,Whole Blood 219 mg/dL (70-110)
[2024-06-01] MEDS: MULTIVITAMINS, THERA 1 EACH TAB PO SCH (08:06)
[2024-06-01 08:31] VITALS: RESP 17
[2024-06-01 12:00] LABS: Glucose,Whole Blood 253 mg/dL (70-110)
[2024-06-01 14:21] VITALS: BP 142/92; PULSE 63; TEMP 98.9
--- NOTE | 2024-06-01 19:23 | P.PN ---
Subjective Progress Note Date: 06/01/24 This is a 63-year-old male patient with known history of advanced COPD with an FEV1 of 58% of predicted, maintained on a combination of Yupelri, Perforomist and Pulmicort as maintenance on an outpatient basis in addition to albuterol on as-needed basis. He is also known to have multiple comorbidities including liver cirrhosis with previous hepatitis C, diabetes mellitus type 2, previous history of CVA and right-sided weakness and the patient is walking with the help of a cane, hyperlipidemia, hypertension, history of stable infrarenal abdominal aortic dissection, peripheral vascular disease with previous angioplasty of the left SFA, diabetes mellitus and previous history of aspiration pneumonia. The patient came into the emergency department with some diminished level of consciousness and altered mentation. He also was noted not breathing well and had decreased level of activity and feeling more sleepy. For that reason, the patient was brought in to the emergency department. He was found to be afebrile and hemodynamically stable. His blood work showed a white cell count of 5.2 with a hemoglobin 12.2 and a platelet count of 100. BUN is 19 with a creatinine 0.7. The sodium is at 140 and a potassium level is at 4.2 with a glucose of 118. Normal coagulation profile. LFTs are normal. Serum alcohol level was less than 10. Blood gas was done that showed a pH of 7.39 with a pCO2 of 45 and pO2 of 74. LFTs are normal. Serum ammonia level was checked and was less than 9. Chest x-ray done showed smaller lung volumes and some atelectatic changes in lung bases bilaterally. CAT scan of the brain showed no acute intracranial process. There is cerebral atrophy, remote right frontal lobe infarct with encephalomalacia. The patient was started on IV fluids with normal saline at rate of 75 cc an hour. Maintained on Levemir insulin 25 units and NovoLog sliding scale coverage. No seizure activity and the patient remains on Vimpat. Remains on Plavix. Maintenance respiratory medication clued performance of Pulmicort updrafts and DuoNeb nebulized treatments 3 times a day [id number]. Receiving lactulose for chronic constipation. Noted the patient also has a chronic pain stimulator On today's evaluation of 06/01/2024, the patient is resting comfortably in bed. No significant respiratory distress. Mental status is adequate. Treatment remains essentially unchanged. No new onset focal neurological deficits. No respiratory distress beyond his baseline. No other new complaints otherwise for now. Afebrile and hemodynamically stable. Labs were all noted. Objective - Vital Signs Vital signs: Vital Signs Temp 97.6 F 06/01/24 06:53 Pulse 68 06/01/24 11:58 Resp 17 06/01/24 06:53 BP 160/80 06/01/24 06:53 Pulse Ox 92 L 06/01/24 06:53 FiO2 Intake & Output 05/31/24 06/01/24 06/01/24 18:59 06:59 18:59 Output Total 9082 144 1629 Balance -1450 -700 -1800 Weight 88.995 kg Output: Urine 8075 572 4422 Other: Voiding Method Indwelling Catheter Indwelling Catheter # Bowel Movements 2 - Exam GENERAL EXAM: Alert, 63-year-old male, resting comfortably in bed, currently on 2 L of oxygen by nasal cannula, awake and alert and communicating HEAD: Normocephalic. EYES: Normal reaction of pupils, equal size. NOSE: Clear with pink turbinates. THROAT: No erythema or exudates. NECK: No masses, no JVD. CHEST: No chest wall deformity. LUNGS: Equal air entry with no crackles, wheeze, rhonchi or dullness. CVS: S1 and S2 normal with no audible murmur, regular rhythm. ABDOMEN: No hepatosplenomegaly, normal bowel sounds, no guarding or rigidity. SPINE: No scoliosis or deformity SKIN: No rashes, pressure ulcer of the previously inserted pain pump with superficial ulceration and some minimal amount of purulence. CENTRAL NERVOUS SYSTEM: Deficits from previous CVA, tone is normal in all 4 extremities. EXTREMITIES: Weakness, wheelchair-bound, there is no peripheral edema. No clubbing, no cyanosis. Peripheral pulses are intact. - Labs CBC & Chem 7: 05/31/24 06:15 05/31/24 06:15 Labs: Abnormal Lab Results - Last 24 Hours (Table) 05/31/24 05/31/24 05/31/24 Range/Units 15:28 17:38 21:29 POC Glucose (mg/dL) 209 H 185 H 224 H (70-110) mg/dL Hemoglobin A1c (<=6.0) % 12/19/24 12/19/24 12/19/24 Range/Units 02:47 06:09 11:59 POC Glucose (mg/dL) 219 H 253 H (70-110) mg/dL Hemoglobin A1c 6.7 H (<=6.0) % Microbiology - Last 24 Hours (Table) 05/30/24 15:34 Blood Culture - Preliminary Blood Assessment and Plan Plan: Altered mental status of unclear etiology, improved. There may be a component o f chronic encephalopathy related to chronic liver cirrhosis. Nevertheless, the ammonia level is nonelevated. No focal neurological deficits. No seizure activity and a CAT scan of the brain was repeated and shows chronic cerebral atrophy with old frontal stroke and encephalomalacia without any acute abnormalities. The patient has been maintained on Vimpat. CAT scan of the brain also shows Moderate ventriculomegaly which may be essentially consistent with normal pressure hydrocephalus. He has a remote right frontal infarct. Chronic hypoxic respiratory failure currently on O2 at 2 L/min nasal cannula Severe COPD with an FEV1 of 58% of predicted Fever, currently afebrile and patient is covered empirically with IV Zosyn. Rule out underlying urine tract infection. He does have a superficial wound infection on his buttocks at the site of the pain pump insertion. Superficial wound over the buttocks without any abscess formation. General surgery is on the case. 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 Obviously, this can be multifactorial. Currently the patient is appropriate without any focal neurological deficits. No new complaints. No signs of any infection or COPD exacerbation No signs of any acute infection at this point Continue home medications CAT scan of the brain was noted No seizure activity and the patient is on the path Serum ammonia level is not elevated Labs are essentially stable and the blood gas shows no evidence of any hypercapnic respiratory failure or significant hypoxemia Resume bronchodilators Antibiotics can be discontinued Discharge planning is in progress Continue laxatives Will continue to follow Poor overall functional performance based on the above-mentioned multiple comorbidities
== END 2024-06-01 14:24 | disposition home or self-care (01) ==
LOC: EC 15:10 → 5NMEDONC 17:26 → 4SSUR 05-31 21:16
PROVIDERS: ADMIT Family Medicine; ATTEND Family Medicine
DX: R41.82 Altered mental status, unspecified (principal); J44.1 Chronic obstructive pulmonary disease with (acute) exacerbation; E86.0 Dehydration; J96.11 Chronic respiratory failure with hypoxia; B18.2 Chronic viral hepatitis C; K74.60 Unspecified cirrhosis of liver; D69.6 Thrombocytopenia, unspecified; G40.909 Epilepsy, unspecified, not intractable, without status epilepticus; L89.322 Pressure ulcer of left buttock, stage 2; E78.5 Hyperlipidemia, unspecified; I10 Essential (primary) hypertension; F32.A Depression, unspecified; F41.9 Anxiety disorder, unspecified; E11.51 Type 2 diabetes mellitus with diabetic peripheral angiopathy without gangrene; G89.29 Other chronic pain; M54.9 Dorsalgia, unspecified; M54.2 Cervicalgia; I71.02 Dissection of abdominal aorta; I25.2 Old myocardial infarction; I69.351 Hemiplegia and hemiparesis following cerebral infarction affecting right dominant side; Z86.19 Personal history of other infectious and parasitic diseases; Z87.891 Personal history of nicotine dependence; Z98.61 Coronary angioplasty status; Z79.02 Long term (current) use of antithrombotics/antiplatelets; Z79.4 Long term (current) use of insulin; Z79.82 Long term (current) use of aspirin; Z79.899 Other long term (current) drug therapy; Z88.5 Allergy status to narcotic agent
CPT/HCPCS: 96376 ×2; 96374; 96375; 99285; 36415; 94640 ×4; 36600; 93005; 80053 ×2; 82140 ×2; 82805; 82803; 83735; 84100; 84484; 85025 ×2; 85610; 85730; 81003; 87040; 80306; 83036; 71046; 70450; G0378 ×4; G0480; J2919 ×3; J2470 ×2; 80320

== ENCOUNTER 2024-08-14 15:00 | Emergency (ER) | payer OTHER ==
[2024-08-14 15:31] VITALS: TEMP 98.3
--- NOTE | 2024-08-14 15:34 | ED ---
Male Urogenital HPI - General Chief complaint: Urogenital Stated complaint: Blood in Cath Time Seen by Provider: 08/14/24 15:31 Source: patient, EMS, RN notes reviewed Mode of arrival: EMS Limitations: no limitations - History of Present Illness Initial comments: 64-year-old male presenting for Toth catheter issue. is at bedside and reports there has been blood in the Toth catheter since this morning. Toth catheter was placed during recent hospitalization for pneumonia. States it has been in for approximately 2 weeks. Has follow-up appointment with PCP tomorrow. Patient denies any pain or discomfort. is concerned because patient finished his antibiotics for pneumonia last week and reports he is still coughing. Describes a productive, rattling cough. History of COPD. Denies chest pain. - Related Data Home Medications Medication Instructions Recorded Confirmed Ferrous Sulfate [Iron (65 MG 325 mg PO HS 12/10/20 07/25/24 Elemental)] Clopidogrel [Plavix] 75 mg PO HS 06/30/21 07/25/24 Primidone [Mysoline] 50 mg PO HS 06/30/21 07/25/24 Rosuvastatin Calcium [Crestor] 40 mg PO HS 03/14/23 07/25/24 Aspirin EC [Ecotrin Low Dose] 81 mg PO HS 05/22/23 07/25/24 Multivitamins, Thera [Multivitamin 1 tab PO DAILY 05/22/23 07/25/24 (formulary)] Lactulose [Cephulac] 20 gm PO TID-W/MEALS 09/08/23 07/25/24 Insulin Lispro [humaLOG Kwikpen] See Protocol SQ ACHS 10/12/23 07/25/24 Acetaminophen Tab [Tylenol] 1,000 mg PO BID 03/12/24 07/25/24 Formoterol Fumarate [Perforomist] 20 mcg INHALATION RT-BID 03/12/24 07/25/24 Ipratropium-Albuterol Nebulize 3 ml INHALATION RT-TID 03/12/24 07/25/24 [Duoneb 0.5 mg-3 mg/3 ml Soln] amLODIPine [Norvasc] 2.5 mg PO BID 03/12/24 07/25/24 Yupelri 1 vial INHALATION RT-DAILY@1300 04/05/24 07/25/24 Albuterol Sulfate [Albuterol 2 puff INHALATION RT-Q6H PRN 05/30/24 07/25/24 Sulfate Hfa] Escitalopram [Lexapro] 10 mg PO HS 07/25/24 07/25/24 Insulin Glargine,Hum.rec.anlog 48 units SQ DAILY 07/25/24 07/25/24 [Lantus Solostar Pen] Nystatin [Nystop] 1 applic TOPICAL BID 07/25/24 07/25/24 Previous Rx's Medication Instructions Recorded Lacosamide [Vimpat] 200 mg PO BID #6 tab 03/16/23 Budesonide [Pulmicort] 1 mg INHALATION RT-BID #20 each 07/29/24 Cephalexin [Keflex] 500 mg PO Q6HR 7 Days #28 cap 07/29/24 predniSONE 0 mg PO DIRECTED 7 Days #21 tab 07/29/24 Nitrofurantoin Monohyd/M-Cryst 100 mg PO Q12HR #14 cap 08/14/24 [Macrobid] Allergies Allergy/AdvReac Type Severity Reaction Status Date / Time morphine AdvReac Nausea & Verified 07/25/24 18:29 Vomiting Review of Systems ROS Statement: Those systems with pertinent positive or pertinent negative responses have been documented in the HPI. ROS Other: All systems not noted in ROS Statement are negative. Past Medical History Past Medical History: COPD, CVA/TIA, Diabetes Mellitus, Hyperlipidemia, Hypertension, Memory Impairment, Myocardial Infarction ([place]), Prostate Disorder, Seizure Disorder, Skin Disorder Additional Past Medical History / Comment(s): duodenal ulcer, pain and numbness cyrus legs and feet,pain pump in back, anemia. TIA X3, HEPATITIS C PAST HISTORY, LAST SEIZURE 2012,hiatal hernia Last Myocardial Infarction Date:: POSSIBLE [place] 2012 History of Any Multi-Drug Resistant Organisms: None Reported Past Surgical History: Appendectomy, Back Surgery, Heart Catheterization, Orthopedic Surgery Additional Past Surgical History / Comment(s): titanium lyn in lt leg, skin graph to rt 1st and middle finger, lt eardum replaced, cyrus. foot surgery to arch, cataract surgery bilateral with implant,skin graft left leg Past Anesthesia/Blood Transfusion Reactions: No Reported Reaction Past Psychological History: Anxiety, Depression Smoking Status: Former smoker Past Alcohol Use History: None Reported Past Drug Use History: None Reported - Past Family History Mother Family Medical History: Diabetes Mellitus, Pulmonary Embolus Father Additional Family Medical History / Comment(s): Father had pain problems/jigna lucinations. He committed suicide. General Exam Limitations: no limitations General appearance: alert, in no apparent distress Head exam: Present: atraumatic, normocephalic, normal inspection Respiratory exam: Present: normal lung sounds bilaterally. Absent: respiratory distress, wheezes, rales, rhonchi, stridor Cardiovascular Exam: Present: regular rate, normal rhythm, normal heart sounds. Absent: systolic murmur, diastolic murmur, rubs, gallop, clicks GI/Abdominal exam: Present: soft, normal bowel sounds. Absent: distended, tenderness, guarding, rebound, rigid exam: Present: other (Indwelling Toth catheter present with dried drainage surrounding urethra. Toth is draining well with dark orange urine present in bag) Neurological exam: Present: alert, oriented X3 Psychiatric exam: Present: normal affect, normal mood Skin exam: Present: warm, dry, intact, normal color. Absent: rash Course Vital Signs 08/14/24 15:07 Temperature 98.3 F Pulse Rate 68 Respiratory 20 Rate Blood Pressure 150/98 O2 Sat by Pulse 95 Oximetry Medical Decision Making - Medical Decision Making Was pt. sent in by a medical professional or institution (, PA, REAL ESTATE SUBAGENT, urgent care, hospital, or senior care...) When possible be specific @ -No Did you speak to anyone other than the patient for history (EMS, parent, family, police, friend...)? What history was obtained from this source @ -Patient's supplemented history Did you review nursing and triage notes (agree or disagree)? Why? @ -I reviewed and agree with nursing and triage notes Were old charts reviewed (outside hosp., previous admission, EMS record, old EKG, old radiological studies, urgent care reports/EKG's, senior care records)? Report findings @ -No old charts were reviewed Differential Diagnosis (chest pain, altered mental status, abdominal pain women, abdominal pain men, vaginal bleeding, weakness, fever, dyspnea, syncope, headache, dizziness, GI bleed, back pain, seizure, CVA, palpatations, mental health, musculoskeletal)? @ -Toth catheter issue, urinary tract infection, kidney stone, tumor bladder cancer, prostatitis EKG interpreted by me (3pts min.). @ -None X-rays interpreted by me (1pt min.). @ -Chest x-ray reveals no acute cardiopulmonary process CT interpreted by me (1pt min.). @ -None done U/S interpreted by me (1pt. min.). @ -None done What testing was considered but not performed or refused? (CT, X-rays, U/S, labs)? Why? @ -None What meds were considered but not given or refused? Why? @ -None Did you discuss the management of the patient with other professionals (professionals i.e. , PA, [employer]STATE [employer]ENT, lab, RT, psych nurse, social media director, director of graduate admissions, teacher, safety officer, caseworker)? Give summary @ -No Was smoking cessation discussed for >3mins.? @ -No Was critical care preformed (if so, how long)? @ -No Were there social determinants of health that impacted care today? How? (Homelessness, low income, unemployed, alcoholism, drug addiction, transportation, low edu. Level, literacy, decrease access to med. care, care home, rehab)? @ -No Was there de-escalation of care discussed even if they declined (Discuss DNR or withdrawal of care, Hospice)? DNR status @ -No What co-morbidities impacted this encounter? (DM, HTN, Smoking, COPD, CAD, Cancer, CVA, ARF, Chemo, Hep., AIDS, mental health diagnosis, sleep apnea, morbid obesity)? @ -None Was patient admitted / discharged? Hospital course, mention meds given and route, prescriptions, significant lab abnormalities, going to OR and other pertinent info. @ -Discharged. 63-year-old male with Toth catheter presenting for blood in Toth catheter x 1 day. Patient is afebrile with no flank pain. Toth catheter was exchanged and is draining properly. Urinalysis reveals large blood and white blood cells indicative of urinary tract infection, culture sent. Chest x- ray obtained upon request as patient's cough has persisted despite finishing antibiotic course, chest x-ray reveals no acute cardiopulmonary process. Patient has a follow-up appointment with PCP tomorrow. Appropriate return precautions discussed. Provided with outpatient prescription of Macrobid for UTI. Case was discussed with the ED attending Dr. Sanders. Undiagnosed new problem with uncertain prognosis? @ -No Drug Therapy requiring intensive monitoring for toxicity (Heparin, Nitro, Insulin, Cardizem)? @ -No Were any procedures done? @ -No Diagnosis/symptom? @ -Urinary tract infection Acute, or Chronic, or Acute on Chronic? @ -Acute Uncomplicated (without systemic symptoms) or Complicated (systemic symptoms)? @ -Uncomplicated Side effects of treatment? @ -No Exacerbation, Progression, or Severe Exacerbation? @ -No Poses a threat to life or bodily function? How? (Chest pain, [place], [place], pneumonia, PE, COPD, DKA, ARF, appy, cholecystitis, CVA, Diverticulitis, Homicidal, Suicidal, threat to staff... and all critical care pts) @ -No - Lab Data Lab Results 08/14/24 08/14/24 Range/Units 16:04 17:28 POC Glucose (mg/dL) 89 (70-110) mg/dL POC Glu Cloth Dye Range Operator ID [email or web address] Spangler Urine Color Red Urine Appearance Turbid (Clear) Urine pH 8.0 (5.0-8.0) Ur Specific [place] 1.022 (1.001-1.035) Urine Protein 3+ H (Negative) Urine Glucose (UA) Negative (Negative) Urine Ketones Negative (Negative) Urine Blood Large H (Negative) Urine Nitrite Negative (Negative) Urine Bilirubin Negative (Negative) Urine Urobilinogen <2.0 (<2.0) mg/dL Ur Leukocyte Esterase Moderate H (Negative) Urine RBC >182 H (0-5) /hpf Urine WBC 135 H (0-5) /hpf Disposition Clinical Impression: Urinary tract infection Disposition: HOME SELF-CARE Condition: Stable Instructions (If sedation given, give patient instructions): Toth Catheter Placement and Care (ED) Additional Instructions: Take Macrobid for urinary tract infection. Follow-up with urologist as discussed and for PCP appointment tomorrow. Please return to the Emergency Department if symptoms worsen or any other concerns. Prescriptions: Nitrofurantoin Monohyd/M-Cryst [Macrobid] 100 mg PO Q12HR #14 cap Is patient prescribed a controlled substance at d/c from ED?: No Referrals: Dmitriy Liu MD [Primary Care Provider] - 1-2 days Eladio Hoffmann MD [STAFF PHYSICIAN] - 1-2 days Time of Disposition: 17:55
[2024-08-14 16:40] LABS: Appearance,Urine Turbid (Clear); Bilirubin,Urine Negative (Negative); Blood,Urine Large (Negative); Color,Urine Red; Glucose,Urine (UA) Negative (Negative); Ketones,Urine Negative (Negative); Leukocyte Esterase,Urine Moderate (Negative); Nitrite,Urine Negative (Negative); Protein,Urine 3+ (Negative); RBC,Urine >182 /hpf (0-5); Specific Gravity,Urine 1.022 (1.001-1.035); Urobilinogen,Urine <2.0 mg/dL (<2.0); WBC,Urine 135 /hpf (0-5)
--- NOTE | 2024-08-14 17:14 | XR ---
EXAMINATION TYPE: XR chest 2V DATE OF EXAM: 08/14/2024 5:04 PM COMPARISON: Chest radiographs from 07/26/2024 CLINICAL INDICATION: Male, 63 years old with history of cough; TECHNIQUE: XR chest 2V Frontal and lateral views of the chest. FINDINGS: Lungs/Pleura: There is no evidence of pleural effusion, focal consolidation, or pneumothorax. Pulmonary vascularity: Unremarkable. Heart/mediastinum: Cardiomediastinal silhouette is unremarkable. Musculoskeletal: No acute osseous pathology. IMPRESSION: No acute cardiopulmonary disease/process. [facility], , 08/14/2024 5:11 PM
[2024-08-14 17:30] LABS: Glucose,Whole Blood 89 mg/dL (70-110)
[2024-08-14] MEDS: NITROFURANTOIN MONOHYD/M-CRYST 100 MG CAP PO STA (18:27)
[2024-08-14 20:00] VITALS: BP 174/76; PULSE 91; RESP 18
== END 2024-08-14 19:58 | disposition home or self-care (01) ==
LOC: EC 15:00
DX: N39.0 Urinary tract infection, site not specified (principal); Z86.73 Personal history of transient ischemic attack (TIA), and cerebral infarction without residual deficits; Z87.891 Personal history of nicotine dependence; Z88.5 Allergy status to narcotic agent
CPT/HCPCS: 36415; 51702; 71046; 81001; 87086; 99284

== ENCOUNTER 2024-08-20 03:44 | Inpatient (IN) | payer OTHER ==
--- NOTE | 2024-08-20 03:52 | ED ---
Chest Pain HPI - General Chief Complaint: Chest Pain Stated Complaint: chest pain Time Seen by Provider: 08/20/24 03:50 Source: patient, EMS, RN notes reviewed, old records reviewed Mode of arrival: EMS Limitations: altered mental status - History of Present Illness Initial Comments: This is a 63-year-old male to the ER for evaluation concern for aspiration concern for shortness of breath with cough concern for recent fevers. Patient does have recent inpatient or ER visit where he placed on antibiotics. Cough congestion, patient also complaining of chest pain with an episode of vomiting that occurred prior to calling EMS MD Complaint: chest pain, other (Patient has had persistent hiccups) -: hour(s) Onset: during rest, during exertion, after eating, awoke with symptoms Pain Location: left chest, right chest, epigastric Severity: moderate Severity scale (1-10): 4 Quality: tightness, sharp Consistency: intermittent Improves With: nothing Worsens With: nothing Other Symptoms: palpitations Treatments Prior to Arrival: none - Related Data Home Medications Medication Instructions Recorded Confirmed Ferrous Sulfate [Iron (65 MG 325 mg PO HS 12/10/20 07/25/24 Elemental)] Clopidogrel [Plavix] 75 mg PO HS 06/30/21 07/25/24 Primidone [Mysoline] 50 mg PO HS 06/30/21 07/25/24 Rosuvastatin Calcium [Crestor] 40 mg PO HS 03/14/23 07/25/24 Aspirin EC [Ecotrin Low Dose] 81 mg PO HS 05/22/23 07/25/24 Multivitamins, Thera [Multivitamin 1 tab PO DAILY 05/22/23 07/25/24 (formulary)] Lactulose [Cephulac] 20 gm PO TID-W/MEALS 09/08/23 07/25/24 Insulin Lispro [humaLOG Kwikpen] See Protocol SQ ACHS 10/12/23 07/25/24 Acetaminophen Tab [Tylenol] 1,000 mg PO BID 03/12/24 07/25/24 Formoterol Fumarate [Perforomist] 20 mcg INHALATION RT-BID 03/12/24 07/25/24 Ipratropium-Albuterol Nebulize 3 ml INHALATION RT-TID 03/12/24 07/25/24 [Duoneb 0.5 mg-3 mg/3 ml Soln] amLODIPine [Norvasc] 2.5 mg PO BID 03/12/24 07/25/24 Yupelri 1 vial INHALATION RT-DAILY@1300 04/05/24 07/25/24 Albuterol Sulfate [Albuterol 2 puff INHALATION RT-Q6H PRN 05/30/24 07/25/24 Sulfate Hfa] Escitalopram [Lexapro] 10 mg PO HS 07/25/24 07/25/24 Insulin Glargine,Hum.rec.anlog 48 units SQ DAILY 07/25/24 07/25/24 [Lantus Solostar Pen] Nystatin [Nystop] 1 applic TOPICAL BID 07/25/24 07/25/24 Previous Rx's Medication Instructions Recorded Lacosamide [Vimpat] 200 mg PO BID #6 tab 03/16/23 Budesonide [Pulmicort] 1 mg INHALATION RT-BID #20 each 07/29/24 Cephalexin [Keflex] 500 mg PO Q6HR 7 Days #28 cap 07/29/24 predniSONE 0 mg PO DIRECTED 7 Days #21 tab 07/29/24 Nitrofurantoin Monohyd/M-Cryst 100 mg PO Q12HR #14 cap 08/14/24 [Macrobid] Allergies Allergy/AdvReac Type Severity Reaction Status Date / Time morphine AdvReac Nausea & Verified 07/25/24 18:29 Vomiting Review of Systems ROS Statement: Those systems with pertinent positive or pertinent negative responses have been documented in the HPI. ROS Other: All systems not noted in ROS Statement are negative. EKG Findings - EKG Comments: EKG Findings:: EKG is sinus 73 IL 147 QRS 101 QTc 382 - EKG Results: EKG: interpreted by ANTONIETTAD Past Medical History Past Medical History: COPD, CVA/TIA, Diabetes Mellitus, Hyperlipidemia, Hypertension, Memory Impairment, Myocardial Infarction (SC), Prostate Disorder, Seizure Disorder, Skin Disorder Additional Past Medical History / Comment(s): duodenal ulcer, pain and numbness cyrus legs and feet,pain pump in back, anemia. TIA X3, HEPATITIS C PAST HISTORY, LAST SEIZURE 2012,hiatal hernia Last Myocardial Infarction Date:: POSSIBLE [place] 2012 History of Any Multi-Drug Resistant Organisms: None Reported Past Surgical History: Appendectomy, Back Surgery, Heart Catheterization, Orthopedic Surgery Additional Past Surgical History / Comment(s): titanium lyn in lt leg, skin graph to rt 1st and middle finger, lt eardum replaced, cyrus. foot surgery to arch, cataract surgery bilateral with implant,skin graft left leg Past Anesthesia/Blood Transfusion Reactions: No Reported Reaction Past Psychological History: Anxiety, Depression Smoking Status: Former smoker Past Alcohol Use History: None Reported Past Drug Use History: None Reported - Past Family History Mother Family Medical History: Diabetes Mellitus, Pulmonary Embolus Father Additional Family Medical History / Comment(s): Father had pain problems/hallucinations. He committed suicide. General Exam General appearance: alert, in no apparent distress Head exam: Present: atraumatic, normocephalic, normal inspection Eye exam: Present: normal appearance, PERRL, EOMI. Absent: scleral icterus, conjunctival injection, periorbital swelling ENT exam: Present: normal exam, mucous membranes moist Neck exam: Present: normal inspection. Absent: tenderness, meningismus, lymphadenopathy Respiratory exam: Present: normal lung sounds bilaterally. Absent: respiratory distress, wheezes, rales, rhonchi, stridor Cardiovascular Exam: Present: regular rate, normal rhythm, normal heart sounds. Absent: systolic murmur, diastolic murmur, rubs, gallop, clicks GI/Abdominal exam: Present: soft, normal bowel sounds. Absent: distended, tenderness, guarding, rebound, rigid Extremities exam: Present: normal inspection, full ROM, normal capillary refill. Absent: tenderness, pedal edema, joint swelling, calf tenderness Back exam: Present: normal inspection Neurological exam: Present: alert, oriented X3, CN II-XII intact Psychiatric exam: Present: normal affect, normal mood Skin exam: Present: warm, dry, intact, normal color. Absent: rash Course Vital Signs 08/20/24 08/20/24 08/20/24 03:45 05:47 06:05 Temperature 99.7 F H Pulse Rate 86 75 71 Respiratory 18 18 Rate Blood Pressure 186/87 169/76 O2 Sat by Pulse 96 95 Oximetry - Reevaluation(s) Reevaluation #1: 08/20/24 06:05 Medical records reviewed Recent ER visit placed on antibiotics for UTI Reevaluation #2: 08/20/24 06:06 Patient symptoms improved Patient hiccups have stopped Patient heart rate and fever is improved Reevaluation #3: 08/20/24 06:37 Patient and family informed of results questions answered at bedside does not feel comfortable taking patient home Reevaluation #4: Was pt. sent in by a medical professional or institution (JOSEPHINE Fowler, MUNICIPAL COURT JUDGE, urgent care, hospital, or shelter...) When possible be specific @ -no Did you speak to anyone other than the patient for history (EMS, parent, family, police, friend...)? What history was obtained from this source @ -no Did you review nursing and triage notes (agree or disagree)? Why? @ -agree Are old charts reviewed (outside hosp., previous admission, EMS record, old EKG, old radiological studies, urgent care reports/EKG's, shelter records)? Report findings @ -yes Differential Diagnosis (chest pain, altered mental status, abdominal pain women, abdominal pain men, vaginal bleeding, weakness, fever, dyspnea, syncope, headache, dizziness, GI bleed, back pain, seizure, CVA, palpatations, mental health, musculoskeletal)? @ -prior EKG interpreted by me (3pts min.). @ -yes X-rays interpreted by me (1pt min.). @ -yes negative for acute disease CT interpreted by me (1pt min.). @ -no U/S interpreted by me (1pt. min.). @ -no What testing was considered but not performed or refused? (CT, X-rays, U/S, labs)? Why? @ -none What meds were considered but not given or refused? Why? @ -none Did you discuss the management of the patient with other professionals (professionals i.e. JOSEPHINE Fowler, MUNICIPAL COURT JUDGE, lab, RT, psych nurse, dialysis social worker, basket maker, teacher, commissioned police officer, caseworker intake)? Give summary @ -no Was smoking cessation discussed for >3mins.? @ -no Was critical care preformed (if so, how long)? @ -no Were there social determinants of health that impacted care today? How? (Homelessness, low income, unemployed, alcoholism, drug addiction, transportation, low edu. Level, literacy, decrease access to med. care, long-term, rehab)? @ -none Was there de-escalation of care discussed even if they declined (Discuss DNR or withdrawal of care, Hospice)? DNR status @ -no What co-morbidities impacted this encounter? (DM, HTN, Smoking, COPD, CAD, Cancer, CVA, ARF, Chemo, Hep., AIDS, mental health diagnosis, sleep apnea, morbid obesity)? @ -none Was patient admitted / discharged? Hospital course, mention meds given and route, prescriptions, significant lab abnormalities, going to OR and other pertinent info. @ - Undiagnosed new problem with uncertain prognosis? @ -no Drug Therapy requiring intensive monitoring for toxicity (Heparin, Nitro, Insulin, Cardizem)? @ -no Were any procedures done? @ -no Diagnosis/symptom? @ - Acute, or Chronic, or Acute on Chronic? @ -Acute Uncomplicated (without systemic symptoms) or Complicated (systemic symptoms)? @ -Complicated Side effects of treatment? @ -no Exacerbation, Progression, or Severe Exacerbation? @ -exacerbation Poses a threat to life or bodily function? How? (Chest pain, USA, SC, pneumonia, PE, COPD, DKA, ARF, appy, cholecystitis, CVA, Diverticulitis, Homicidal, Suicidal, threat to staff... and all critical care pts) @ -yes Reevaluation #5: Differential Chest Pain: Stable Angina, Unstable Angina, STEMI, NSTEMI Aortic Dissection, Pneumothorax, Musculoskeletal, Esophageal Spasm GERD, Cholecystitis, Pancreatitis, Zoster, this is not meant to be an all-inclusive list. - Consultations Consultation #1: Spoke with [facility] who agrees to admit this patient Chest Pain MDM - MDM 63 male to ER with chest pain suspected aspiration positive fever. Patient has persistent urinary tract infection intractable hiccups are resolved patient placed on IV antibiotics Disposition Clinical Impression: Acute renal insufficiency, Generalized weakness, Aspiration into airway, COPD (chronic obstructive pulmonary disease), Intractable hiccups, Fever, UTI (urinary tract infection) Disposition: ADMITTED IP TO THIS HOSP Condition: Fair Is patient prescribed a controlled substance at d/c from ED?: No Referrals: Dmitriy Liu MD [Primary Care Provider] - 1-2 days
[2024-08-20 03:58] LABS: Glucose,Whole Blood 167 mg/dL (70-110)
[2024-08-20] MEDS: SODIUM CHLORIDE 0.9% 1,000 ML IV STA ×2 (04:06→06:50)
[2024-08-20] MEDS: ONDANSETRON 4 MG/2 ML VIAL IVP STA (04:07)
[2024-08-20 04:08] LABS: Basophils % (A) 0 %; Eosinophils % (A) 0 %; HCT 39.1 % (39.0-53.0); HGB 12.5 gm/dL (13.0-17.5); Lymphocytes # (A) 0.9 k/uL (1.0-4.8); Lymphocytes % (A) 10 %; MCH 32.5 pg (25.0-35.0); MCHC 31.9 g/dL (31.0-37.0); MCV 101.8 fL (80.0-100.0); Macrocytosis Slight; Mean Platelet Volume 7.1; Monocytes # (A) 0.4 k/uL (0-1.0); Monocytes % (A) 4 %; Neutrophils # (A) 8.4 k/uL (1.3-7.7); Neutrophils % (A) 85 %; Platelet Count 111 k/uL (150-450); RBC 3.84 m/uL (4.30-5.90); RDW 14.3 % (11.5-15.5); WBC 9.9 k/uL (3.8-10.6)
[2024-08-20 04:19] LABS: ALT 18 U/L (4-49); AST 31 U/L (17-59); African American GFR (CKD) >90 (>60 ml/min/1.73 sqM); Albumin 4.2 g/dL (3.5-5.0); Alkaline Phosphatase 55 U/L (38-126); Anion Gap 7 mmol/L; Blood Urea Nitrogen 11 mg/dL (9-20); Calcium 9.2 mg/dL (8.4-10.2); Carbon Dioxide 26 mmol/L (22-30); Chloride 101 mmol/L (98-107); Glucose 173 mg/dL (74-99); Lipase 75 U/L (23-300); Magnesium 1.8 mg/dL (1.6-2.3); Non-African American GFR(CKD) >90 (>60 ml/min/1.73 sqM); Potassium 3.7 mmol/L (3.5-5.1); Sodium 134 mmol/L (137-145); Total Bilirubin 0.9 mg/dL (0.2-1.3); Total Protein 7.5 g/dL (6.3-8.2)
[2024-08-20 04:28] LABS: NT-Pro-B-Type Natriuretic Pept 925 pg/mL
[2024-08-20 04:42] LABS: Partial Thromboplastin Time 22.3 sec (22.0-30.0); Prothrombin Time 10.8 sec (10.0-12.5)
--- NOTE | 2024-08-20 05:06 | XR ---
EXAM: XR Chest, 1 View CLINICAL HISTORY: ITS.REASON XR Reason: Chest Pain TECHNIQUE: Frontal view of the chest. COMPARISON: No relevant prior studies available. FINDINGS: Lungs: No consolidation or mass. Pleural space: No acute findings. Heart: cardiomegaly. Bones/joints: No acute findings. IMPRESSION: No acute cardiopulmonary process.
[2024-08-20] MEDS: ACETAMINOPHEN IV (For NPO) 1,000 MG in EMPTY BAG 1 BAG IVPB STA (05:27)
[2024-08-20] MEDS: chlorproMAZINE 25 MG/ML 2 ML AMP IM STA (05:46)
[2024-08-20] MEDS: IBUPROFEN IV 800 MG in SODIUM CHLORIDE 0.9% 250 ML IV ONE (05:46)
[2024-08-20] MEDS: IPRATROPIUM-ALBUTEROL 3 ML NEB INHALATION STA (06:04)
[2024-08-20 06:25] LABS: Amorphous Sediment,Urine Rare /hpf; Appearance,Urine Clear (Clear); Bacteria,Urine Occasional /hpf; Bilirubin,Urine Negative (Negative); Blood,Urine Moderate (Negative); Budding Yeast,Urine Few /hpf; Color,Urine Yellow; Glucose,Urine (UA) Negative (Negative); Hyaline Casts,Urine 4 /lpf (0-2); Ketones,Urine Negative (Negative); Leukocyte Esterase,Urine Large (Negative); Mucus,Urine Rare /hpf; Nitrite,Urine Negative (Negative); PH, Urine 7.5 (5.0-8.0); Protein,Urine 1+ (Negative); RBC,Urine 103 /hpf (0-5); Specific Gravity,Urine 1.015 (1.001-1.035); Urobilinogen,Urine <2.0 mg/dL (<2.0); WBC,Urine 127 /hpf (0-5)
[2024-08-20] MEDS ORDERED: ONDANSETRON 4 MG/2 ML VIAL IVP PRN (06:40)
[2024-08-20] MEDS ORDERED: NALOXONE 0.4 MG/ML 1 ML VIAL IV PRN (06:40)
[2024-08-20 06:44] LABS: Influenza A Not Detected (Not Detectd); Influenza B Not Detected (Not Detectd); RSV Not Detected (Not Detectd)
[2024-08-20] MEDS: SODIUM CHLORIDE 0.9% 1,000 ML IV ONE (06:48)
[2024-08-20] MEDS: SODIUM CHLORIDE 0.9% 1,000 ML IV SCH (06:50)
[2024-08-20] MEDS: cefTRIAXone IN SWFI 1,000 MG/10 ML SYRINGE IVP STA (06:52)
[2024-08-20 12:34] LABS: Glucose,Whole Blood 152 mg/dL (70-110)
--- NOTE | 2024-08-20 13:41 | P.CNPUL ---
History of Present Illness Consult date: 08/20/24 Requesting physician: Mark E Sheet Reason for consult: dyspnea Chief complaint: Chest pain, hypertension, shortness of breath History of present illness: This is a 63-year-old male with past medical history significant for COPD, CVA, diabetes mellitus type 2, hypertension, coronary artery disease, CHF, abdominal aortic aneurysm, chronic back pain with pain pump, seizures, hepatitis C and julio er cirrhosis. He has known history of moderate COPD, with an FEV1 58% of predicted. He is maintained on a combination of Yupelri, Perforomist, Pulmicort, and as needed albuterol nebs. He is wheelchair/bedbound. He is a very poor historian, his is his caregiver. She states he was recently jennifer gnosed with progressive supranuclear palsy by neurology. He has had frequent admissions to this hospital. He was just discharged home on 07/29/2024. She had him brought back to the emergency room early this morning for complaints of chest pain and found to be hypertensive and with some shortness of breath. Chest x-ray reveals no acute pulmonary process. EKG reveals sinus rhythm without acute ST or T wave abnormalities. Count 9.9. Hemoglobin 12.5. Platelets 111. Sodium 134. Potassium 3.7. Bicarb 26. BUN 11. Creatinine 0.51. Glucose 167. Troponin negative x 1. proBNP 925. Urinalysis with moderate blood, large leukocyte esterase high WBCs and occasional bacteria. Viral screen is negative. He is seen today in consultation on the regular medical floor. He is awake and alert. No acute distress. Maintaining O2 saturations in the 90s on 2 L/min per nasal cannula. No chest pain currently. Blood pressure 160/77. He is afebrile. Review of Systems ROS unobtainable: due to mental status Past Medical History Past Medical History: COPD, CVA/TIA, Diabetes Mellitus, Hyperlipidemia, Hypertension, Memory Impairment, Myocardial Infarction ([place]), Prostate Disorder, Seizure Disorder, Skin Disorder Additional Past Medical History / Comment(s): duodenal ulcer, pain and numbness cyrus legs and feet,pain pump in back, anemia. 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 foot surgery to arch, cataract surgery bilateral with implant,skin graft left leg Past Anesthesia/Blood Transfusion Reactions: No Reported Reaction Past Psychological History: Anxiety, Depression Additional Psychological History / Comment(s): past history of depression Smoking Status: Former smoker Past Alcohol Use History: None Reported Additional Past Alcohol Use History / Comment(s): Pt started smoking in 1974 and is a 1-2ppd smoker Past Drug Use History: None Reported - Past Family History Mother Family Medical History: Diabetes Mellitus, Pulmonary Embolus Father Additional Family Medical History / Comment(s): Father had pain problems/hallucinations. He committed suicide. Medications and Allergies Home Medications Medication Instructions Recorded Confirmed Type Ferrous Sulfate [Iron (65 MG 325 mg PO HS 12/10/20 08/20/24 History Elemental)] Clopidogrel [Plavix] 75 mg PO HS 06/30/21 08/20/24 History Primidone [Mysoline] 50 mg PO HS 06/30/21 08/20/24 History Rosuvastatin Calcium [Crestor] 40 mg PO HS 03/14/23 08/20/24 History Lacosamide [Vimpat] 200 mg PO BID #6 tab 03/16/23 08/20/24 Rx Aspirin EC [Ecotrin Low Dose] 81 mg PO HS 05/22/23 08/20/24 History Multivitamins, Thera [Multivitamin 1 tab PO DAILY 05/22/23 08/20/24 History (formulary)] Lactulose [Cephulac] 20 gm PO TID-W/MEALS 09/08/23 08/20/24 History Insulin Lispro [humaLOG Kwikpen] See Protocol SQ ACHS 10/12/23 08/20/24 History Acetaminophen Tab [Tylenol] 1,000 mg PO BID 03/12/24 08/20/24 History Formoterol Fumarate [Perforomist] 20 mcg INHALATION RT-BID 03/12/24 08/20/24 History Ipratropium-Albuterol Nebulize 3 ml INHALATION RT-TID 03/12/24 08/20/24 History [Duoneb 0.5 mg-3 mg/3 ml Soln] amLODIPine [Norvasc] 2.5 mg PO BID 03/12/24 08/20/24 History Albuterol Sulfate [Albuterol 2 puff INHALATION RT-Q6H PRN 05/30/24 08/20/24 History Sulfate Hfa] Escitalopram [Lexapro] 10 mg PO HS 07/25/24 08/20/24 History Insulin Glargine,Hum.rec.anlog 48 units SQ DAILY 07/25/24 08/20/24 History [Lantus Solostar Pen] Nystatin [Nystop] 1 applic TOPICAL BID 07/25/24 08/20/24 History Budesonide [Pulmicort] 1 mg INHALATION RT-BID #20 each 07/29/24 08/20/24 Rx Nitrofurantoin Monohyd/M-Cryst 100 mg PO Q12HR #14 cap 08/14/24 08/20/24 Rx [Macrobid] Yupelri 175mg/3ml 175 mg INHALATION RT-DAILY@1300 08/20/24 08/20/24 History fentaNYL 12MCG/HR PATCH [Duragesic 1 patch TRANSDERM Q48H 08/20/24 08/20/24 History 12MCG/HR] Allergies Allergy/AdvReac Type Severity Reaction Status Date / Time morphine AdvReac Nausea & Verified 08/20/24 08:25 Vomiting Physical Exam Vitals: Vital Signs Temp Pulse Resp BP Pulse Ox 08/20/24 08:26 99.1 F 65 22 160/77 97 08/20/24 06:57 98.8 F 68 18 151/71 95 08/20/24 06:05 71 08/20/24 05:47 75 18 169/76 95 08/20/24 03:45 99.7 F H 86 18 186/87 96 Intake and Output 08/19/24 08/20/24 08/20/24 21:59 06:59 14:59 Output Total 1500 Balance -1500 Output: Urine 1500 Other: Voiding Method Indwelling Catheter Weight 81.647 kg GENERAL EXAM: Arousable, weak 63-year-old male, on 2 L nasal cannula, in no apparent distress. HEAD: Normocephalic. EYES: Normal reaction of pupils, equal size. NOSE: Clear with pink turbinates. THROAT: No erythema or exudates. NECK: No masses, no JVD. CHEST: No chest wall deformity. LUNGS: Equal air entry with no crackles, wheeze, rhonchi or dullness. CVS: S1 and S2 normal with no audible murmur, regular rhythm. ABDOMEN: No hepatosplenomegaly, normal bowel sounds, no guarding or rigidity. SPINE: No scoliosis or deformity SKIN: No rashes CENTRAL NERVOUS SYSTEM: No focal deficits, tone is normal in all 4 extremities. EXTREMITIES: There is no peripheral edema. No clubbing, no cyanosis. Peripheral pulses are intact. Results - Laboratory Findings CBC and BMP: 08/20/24 03:55 08/20/24 03:55 PT/INR, D-dimer PT 10.8 sec (10.0-12.5) 08/20/24 03:55 INR 1.0 (<1.2) 08/20/24 03:55 D-Dimer 1.18 mg/L FEU (<0.60) H 08/20/24 03:55 Abnormal lab findings: Abnormal Labs 08/20/24 08/20/24 08/20/24 03:55 03:55 03:55 RBC 3.84 L Hgb 12.5 L MCV 101.8 H Plt Count 111 L Neutrophils # 8.4 H Lymphocytes # 0.9 L D-Dimer 1.18 H Sodium 134 L Creatinine 0.51 L Glucose 173 H POC Glucose (mg/dL) Urine Protein Urine Blood Ur Leukocyte Esterase Urine RBC Urine WBC Amorphous Sediment Urine Bacteria Hyaline Casts Urine Mucus Urine Yeast (Budding) 08/20/24 08/20/24 08/20/24 03:55 05:35 12:28 RBC Hgb MCV Plt Count Neutrophils # Lymphocytes # D-Dimer Sodium Creatinine Glucose POC Glucose (mg/dL) 167 H 152 H Urine Protein 1+ H Urine Blood Moderate H Ur Leukocyte Esterase Large H Urine RBC 103 H Urine WBC 127 H Amorphous Sediment Rare H Urine Bacteria Occasional H Hyaline Casts 4 H Urine Mucus Rare H Urine Yeast (Budding) Few H - Diagnostic Findings Chest x-ray: image reviewed Assessment and Plan Assessment: Atypical chest pain and hypertension with shortness of breath. EKG revealed no acute ST or T wave abnormalities. Initial troponin negative. Chest x-ray shows no acute process Underlying urinary tract infection, currently on ceftriaxone Recent diagnosis of progressive supranuclear palsy and the patient has been bedbound/wheelchair-bound Recent discharge on July 29, 2024 following up COPD exacerbation Chronic obstructive pulmonary disease with an FEV1 value of 58% of predicted. He is maintained on Yupelri, Perforomist and Pulmicort inhalations, and albuterol as needed History of CVA Memory impairment, previously considered for normal pressure hydrocephalus Diabetes mellitus type 2 Hypertension History of coronary artery disease with previous [place] History of abdominal aortic aneurysm History of seizure disorder History of hepatitis C, with secondary liver cirrhosis Chronic thrombocytopenia Wheelchair dependent Chronic pain, reportedly with implanted pain pump Plan: The patient was seen and evaluated Imaging, labs and medications reviewed Chest x-ray shows no acute process Stable on his home dose of 2 L/min per nasal cannula Initiate Pulmicort and Perforomist inhalations Initiate DuoNeb inhalations Check a procalcitonin Continue ceftriaxone for now Case management for possible placement We will continue to follow and make further recommendations based on his clinical status I have personally seen and examined the patient, performed the documentation and the assessment and plan as written. Number of minutes spent on the visit: 20 Dictation was produced using [employer] dictation software. Please excuse any grammatical, word or spelling errors.
[2024-08-20] MEDS ORDERED: ALBUTEROL NEBULIZED 2.5 MG/3 ML INHALATION PRN (14:10)
[2024-08-20] MEDS: LACTULOSE 20 GM/30 ML CUP PO SCH (17:57)
[2024-08-20 17:59] LABS: Glucose,Whole Blood 228 mg/dL (70-110)
[2024-08-20] MEDS: FORMOTEROL FUMARATE 20 MCG/2 ML NEBU INHALATION SCH (19:45)
[2024-08-20] MEDS: IPRATROPIUM-ALBUTEROL 3 ML NEB INHALATION SCH (19:45)
[2024-08-20] MEDS: BUDESONIDE 1 MG/2 ML NEBU INHALATION SCH (19:45)
[2024-08-20] MEDS: ATORVASTATIN 80 MG TAB PO SCH (20:19)
[2024-08-20] MEDS: amLODIPine 2.5 MG TAB PO SCH (20:19)
[2024-08-20] MEDS: LACOSAMIDE 150 MG TABLET PO SCH (20:19)
[2024-08-20] MEDS: ASPIRIN 81 MG PO SCH (20:19)
[2024-08-20] MEDS: CLOPIDOGREL 75 MG TAB PO SCH (20:19)
[2024-08-20] MEDS: ACETAMINOPHEN TAB 500 MG TAB PO SCH (20:19)
[2024-08-20] MEDS: LACOSAMIDE 50 MG TABLET PO SCH (20:19)
[2024-08-20] MEDS: FERROUS SULFATE 325 MG TAB PO SCH (20:19)
[2024-08-20] MEDS: PRIMIDONE 50 MG TAB PO SCH (20:19)
[2024-08-20 20:39] LABS: Glucose,Whole Blood 164 mg/dL (70-110)
[2024-08-20] MEDS ORDERED: ESCITALOPRAM 10 MG TAB PO SCH (21:00)
--- NOTE | 2024-08-20 21:41 | HP ---
HISTORY AND PHYSICAL CHIEF COMPLAINT: Fevers, possible aspiration UTI. HISTORY OF PRESENT ILLNESS: 63-year-old gentleman with past medical history of multiple problems including recently diagnosed progressive supranuclear palsy, was admitted with concerns of fever and possible aspiration. The patient also had possible UTI also. The patient is currently confused, unable to give a coherent history. Most of the history was obtained by discussion with staff and review of chart at this time. PAST MEDICAL HISTORY: History of supranuclear palsy and multiple complex medical issues including COPD, diabetes mellitus type 2. Rest of the chart is also reviewed. HOME MEDICATIONS: Reviewed and include fentanyl patch. Dose and rest of medications reviewed. ALLERGIES: Morphine. FAMILY HISTORY: Could not be taken. SOCIAL HISTORY: Could not be taken. PHYSICAL EXAMINATION: VITAL SIGNS: Pulse 65, blood pressure 160/77, respirations 20. HEENT: Conjunctivae normal. NECK: No jugular venous distention. CARDIOVASCULAR: S1, S2 muffled. RESPIRATION: Few scattered rhonchi. ABDOMEN: Soft, nontender. LEGS: No edema. No swelling. Diffusely weak. LABORATORY DATA: Could not be examined completely. Labs are noted. ASSESSMENT: 1. Chest pain, shortness of breath, possible COPD, acute exacerbation. 2. Fevers, possible sepsis, UTI versus aspiration pneumonia. 3. Recent diagnosis of progressive supranuclear palsy. 4. Diabetes mellitus type 2. 5. Hypertension. 6. Hyperlipidemia. 7. History of seizure disorder. 8. Chronic pain syndrome. RECOMMENDATIONS AND DISCUSSION: This 63-year-old gentleman presented with multiple complex medical issues. We will monitor the patient closely. I would recommend to continue the current medications. Continue symptomatic treatment. Otherwise, continue the antibiotics. Obtain cultures. Continue the medication including pain medication, but I would recommend to hold off the pain medication if the patient continues to be drowsy. I would also recommend Infectious Disease evaluation also. Overall prognosis guarded because of multiple complex medical issues. We will continue to monitor. Chest x-ray was reviewed. We will hold off the sedatives as much as possible. MMODL / IJN: [id number] /
--- NOTE | 2024-08-20 23:30 | P.CONS ---
History of Present Illness - Reason for Consult Consult date: 08/20/24 Sepsis Requesting physician: Nabil Loyola - Chief Complaint Weakness chest pain x 1 day - History of Present Illness Patient is a 63-year-old male with a past medical history significant for COPD, CVA/TIA, Diabetes Mellitus, Hyperlipidemia, Hypertension, Memory I mpairment, Myocardial Infarction ([place]), Prostate Disorder, Seizure Disorder, Skin Disorder patient has been brought back to the ER concerning for chest pain and some shortness of breath, patient denies high-grade fever or any chills no significant cough or sputum production no nausea vomiting no abdominal pain or diarrhea patient did have a chronic indwelling Marion catheter for urine retention. Has been recently change as reported by the nursing staff on presentation the hospital he did have a low-grade fever of 99.7 degrees for night patient was not tachycardic or hypotensive O2 sats of 96% on 2 L nasal cannula documented patient did have white count of 9.9 with a left shift creatinine 0.51 liver enzymes are normal urine has been positive influenza RSV COVID testing negative patient did have a chest x-ray that was negative for acute cardiopulmonary disease process infectious disease was consulted for sepsis Review of Systems Positive point and negatives has been mentioned in the HPI, complete review of systems was performed and all other systems are negative Past Medical History Past Medical History: COPD, CVA/TIA, Diabetes Mellitus, Hyperlipidemia, Hypertension, Memory Impairment, Myocardial Infarction ([place]), Prostate Disorder, Seizure Disorder, Skin Disorder Additional Past Medical History / Comment(s): duodenal ulcer, pain and numbness cyrus legs and feet,pain pump in back, anemia. 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 foot surgery to arch, cataract surgery bilateral with implant,skin graft left leg Past Anesthesia/Blood Transfusion Reactions: No Reported Reaction Past Psychological History: Anxiety, Depression Additional Psychological History / Comment(s): past history of depression Smoking Status: Former smoker Past Alcohol Use History: None Reported Additional Past Alcohol Use History / Comment(s): Pt started smoking in 1974 and is a 1-2ppd smoker Past Drug Use History: None Reported - Past Family History Mother Family Medical History: Diabetes Mellitus, Pulmonary Embolus Father Additional Family Medical History / Comment(s): Father had pain problems/hallucinations. He committed suicide. Medications and Allergies Home Medications Medication Instructions Recorded Confirmed Type Ferrous Sulfate [Iron (65 MG 325 mg PO HS 12/10/20 08/20/24 History Elemental)] Clopidogrel [Plavix] 75 mg PO HS 06/30/21 08/20/24 History Primidone [Mysoline] 50 mg PO HS 06/30/21 08/20/24 History Rosuvastatin Calcium [Crestor] 40 mg PO HS 03/14/23 08/20/24 History Lacosamide [Vimpat] 200 mg PO BID #6 tab 03/16/23 08/20/24 Rx Aspirin EC [Ecotrin Low Dose] 81 mg PO HS 05/22/23 08/20/24 History Multivitamins, Thera [Multivitamin 1 tab PO DAILY 05/22/23 08/20/24 History (formulary)] Lactulose [Cephulac] 20 gm PO TID-W/MEALS 09/08/23 08/20/24 History Insulin Lispro [humaLOG Kwikpen] See Protocol SQ ACHS 10/12/23 08/20/24 History Acetaminophen Tab [Tylenol] 1,000 mg PO BID 03/12/24 08/20/24 History Formoterol Fumarate [Perforomist] 20 mcg INHALATION RT-BID 03/12/24 08/20/24 History Ipratropium-Albuterol Nebulize 3 ml INHALATION RT-TID 03/12/24 08/20/24 History [Duoneb 0.5 mg-3 mg/3 ml Soln] amLODIPine [Norvasc] 2.5 mg PO BID 03/12/24 08/20/24 History Albuterol Sulfate [Albuterol 2 puff INHALATION RT-Q6H PRN 05/30/24 08/20/24 History Sulfate Hfa] Escitalopram [Lexapro] 10 mg PO HS 07/25/24 08/20/24 History Insulin Glargine,Hum.rec.anlog 48 units SQ DAILY 07/25/24 08/20/24 History [Lantus Solostar Pen] Nystatin [Nystop] 1 applic TOPICAL BID 07/25/24 08/20/24 History Budesonide [Pulmicort] 1 mg INHALATION RT-BID #20 each 07/29/24 08/20/24 Rx Nitrofurantoin Monohyd/M-Cryst 100 mg PO Q12HR #14 cap 08/14/24 08/20/24 Rx [Macrobid] Yupelri 175mg/3ml 175 mg INHALATION RT-DAILY@1300 08/20/24 08/20/24 History fentaNYL 12MCG/HR PATCH [Duragesic 1 patch TRANSDERM Q48H 08/20/24 08/20/24 History 12MCG/HR] Allergies Allergy/AdvReac Type Severity Reaction Status Date / Time morphine AdvReac Nausea & Verified 08/20/24 08:25 Vomiting Physical Exam Vitals: Vital Signs Temp Pulse Pulse Resp BP BP Pulse Ox 08/20/24 14:09 98.2 F 74 17 167/76 98 08/20/24 08:26 99.1 F 65 22 160/77 97 08/20/24 06:57 98.8 F 68 18 151/71 95 08/20/24 06:05 71 08/20/24 05:47 75 18 169/76 95 08/20/24 03:45 99.7 F H 86 18 186/87 96 Intake and Output 08/19/24 08/20/24 08/20/24 21:59 06:59 14:59 Intake Total 480 Output Total 3300 Balance -2820 Intake: Oral 480 Output: Urine 3300 Other: Voiding Method Indwelling Catheter Weight 81.647 kg GENERAL DESCRIPTION: Middle-age male lying in bed, no distress. No tachypnea or accessory muscle of respiration use. HEENT: Shows Pallor , no scleral icterus. Oral mucous membrane is dry. NECK: Trachea central, no thyromegaly. LUNGS: Unlabored breathing. Clear to auscultation anteriorly. No wheeze or crackle. HEART: S1, S2, regular rate and rhythm. No loud murmur ABDOMEN: Soft, no tenderness , guarding or rigidity, no organomegaly EXTREMITIES: No edema of feet. SKIN: No rash, no masses palpable. NEUROLOGICAL: The patient is awake, alert, mood and affect normal. Results CBC & Chem 7: 08/20/24 03:55 03/09/25 03:55 Labs: Abnormal Lab Results - Last 24 Hours (Table) 08/20/24 08/20/24 08/20/24 Range/Units 03:55 03:55 03:55 RBC 3.84 L (4.30-5.90) m/uL Hgb 12.5 L (13.0-17.5) gm/dL MCV 101.8 H (80.0-100.0) fL Plt Count 111 L (150-450) k/uL Neutrophils # 8.4 H (1.3-7.7) k/uL Lymphocytes # 0.9 L (1.0-4.8) k/uL D-Dimer 1.18 H (<0.60) mg/L FEU Sodium 134 L (137-145) mmol/L Creatinine 0.51 L (0.66-1.25) mg/dL Glucose 173 H (74-99) mg/dL POC Glucose (mg/dL) (70-110) mg/dL Urine Protein (Negative) Urine Blood (Negative) Ur Leukocyte Esterase (Negative) Urine RBC (0-5) /hpf Urine WBC (0-5) /hpf Amorphous Sediment (None) /hpf Urine Bacteria (None) /hpf Hyaline Casts (0-2) /lpf Urine Mucus (None) /hpf Urine Yeast (Budding) (None) /hpf 08/20/24 08/20/24 08/20/24 Range/Units 03:55 05:35 12:28 RBC (4.30-5.90) m/uL Hgb (13.0-17.5) gm/dL MCV (80.0-100.0) fL Plt Count (150-450) k/uL Neutrophils # (1.3-7.7) k/uL Lymphocytes # (1.0-4.8) k/uL D-Dimer (<0.60) mg/L FEU Sodium (137-145) mmol/L Creatinine (0.66-1.25) mg/dL Glucose (74-99) mg/dL POC Glucose (mg/dL) 167 H 152 H (70-110) mg/dL Urine Protein 1+ H (Negative) Urine Blood Moderate H (Negative) Ur Leukocyte Esterase Large H (Negative) Urine RBC 103 H (0-5) /hpf Urine WBC 127 H (0-5) /hpf Amorphous Sediment Rare H (None) /hpf Urine Bacteria Occasional H (None) /hpf Hyaline Casts 4 H (0-2) /lpf Urine Mucus Rare H (None) /hpf Urine Yeast (Budding) Few H (None) /hpf Assessment and Plan (1) Urinary tract infection Current Visit: Yes Status: Acute Code(s): N39.0 - URINARY TRACT INFECTION, SITE NOT SPECIFIED SNOMED Code(s): 27904489 Plan: 1patient presented hospital multiple symptoms also have weakness he did have a low-grade fever positive UA concerning for possible component of catheter a ssisted UTI likely from today gram-negative pathogen as no other obvious focus of any infection chest x-ray was negative abdominal soft on clinical examination and no evidence of any cellulitis or joint swelling 2-Rocephin 2 g daily while waiting for the culture to finalize. We will follow on clinical condition and cultures to further adjust medication if needed Thank you for this consultation we will follow the patient along with you Dictation was produced using [employer] dictation software. please excuse any grammatical, word or spelling errors. Time with Patient: Greater than 30
[2024-08-21 06:03] LABS: Glucose,Whole Blood 152 mg/dL (70-110)
[2024-08-21] MEDS: INSULIN GLARGINE (LANTUS) 100 UNIT/ML SYR SQ SCH (06:03)
[2024-08-21 08:25] LABS: ALT 14 U/L (10-49); AST 21 U/L (14-35); Albumin/Globulin Ratio 1.43 Ratio (1.60-3.17); Alkaline Phosphatase 54 U/L (41-126); Blood Urea Nitrogen 8.7 mg/dL (9.0-27.0); Calcium 8.9 mg/dL (8.7-10.3); Chloride 103 mmol/L (96-109); Globulin 2.8 g/dL (1.6-3.3); Glucose 161 mg/dL (70-110); Magnesium 1.9 mg/dL (1.5-2.4); Phosphorus 2.3 mg/dL (2.4-5.1); Potassium 3.4 mmol/L (3.5-5.5); Sodium 139 mmol/L (135-145); Total Bilirubin 0.4 mg/dL (0.3-1.2); Total Protein 6.8 g/dL (6.2-8.2)
[2024-08-21 08:53] LABS: Basophils # (A) 0.01 X 10*3/uL (0.00-0.10); Basophils % (A) 0.2 %; Eosinophils # (A) 0.05 X 10*3/uL (0.04-0.35); Eosinophils % (A) 0.9 %; HCT 33.9 % (39.6-50.0); HGB 11.2 g/dL (13.0-17.0); Lymphocytes # (A) 1.01 X 10*3/uL (0.90-5.00); Lymphocytes % (A) 17.2 %; MCH 32.9 pg (27.0-32.0); MCV 99.7 FL (80.0-97.0); Mean Platelet Volume 10.3 FL (9.5-12.2); Monocytes # (A) 0.45 X 10*3/uL (0.20-1.00); Monocytes % (A) 7.7 %; NRBC Per 100 WBC 0 X 10*3/uL (0.00-0.01); Neutrophils # (A) 4.34 X 10*3/uL (1.80-7.70); Neutrophils % (A) 73.8 %; Platelet Count 93 X 10*3/uL (140-440); RDW 13.8 % (11.5-14.5); WBC 5.87 X 10*3/uL (4.50-10.00)
[2024-08-21] MEDS: MULTIVITAMINS, THERA 1 EACH TAB PO SCH (09:00)
[2024-08-21] MEDS: YUPELRI 175 MCG/3 ML INHALATION SCH (09:08)
[2024-08-21] MEDS ORDERED: Phosphorus Replacement Protoco 1 EACH MISC MISCELLANE PRN (10:16)
[2024-08-21] MEDS: POTASSIUM CHLORIDE ER 20 MEQ TAB.ER PO STA (11:33)
[2024-08-21] MEDS: POTAS-SOD-PHOS 280-160-250 MG 1 EACH PACKET PO ONE (11:33)
[2024-08-21 12:04] LABS: Glucose,Whole Blood 216 mg/dL (70-110)
--- NOTE | 2024-08-21 15:54 | P.PN ---
Subjective Progress Note Date: 08/21/24 Is a pleasant 63 male with medical history of recent diagnosis of progressive supranuclear palsy follows along with neurology on an outpatient basis. Patient was concern for acute urinary tract infection recently had his chronic Toth catheter changed out. He remains on IV ceftriaxone urine culture is currently pending with ID following closely. Patient's at the bedside does state that she has been giving him regular diet at home and she is concerned that he may be aspirating states that he seems to be doing better with that. Diet here. We did consult speech therapy to evaluate the patient. There was concern for some aspiration pneumonia on admission as well. Patient's does state that she has hard time getting him to his doctor appointments and is wondering about having a nurse practitioner out to the house to check on him versus going to the office. Did discuss that there are options available such as visiting physicians and the pace program. She would like more information about these is also wondering about a hospice consultation. States that she already has [facility]. Patient is awake alert oriented in no acute distress his white blood cell count is 5.87 hemoglobin 11.2, sodium 139, potassium 3.4, BUN of 8.7 creatinine of 0.6, phosphorus of 2.3. Is afebrile. Heart rate of 68 normal sinus rhythm. Patient has been hypertensive. Review of Systems Constitutional: Denied any fatigue denied any fever. Cardio vascular: denied any chest pain, palpitations Gastrointestinal: denied any nausea, vomiting, diarrhea Pulmonary: Denied any shortness of breath cough Neurologic denied any new focal deficits All inpatient medications were reviewed and appropriate changes in these medications as dictated in the interval history and assessment and plan. PHYSICAL EXAMINATION: GENERAL: The patient is alert and oriented x1-2, not in any acute distress. Well developed, well nourished. on 2L, elderly appearing HEENT: Pupils are round and equally reacting to light. EOMI. No scleral icterus. No conjunctival pallor. Normocephalic, atraumatic. No pharyngeal erythema. No thyromegaly. CARDIOVASCULAR: S1 and S2 present. No murmurs, rubs, or gallops. PULMONARY: Chest is clear to auscultation, no wheezing or crackles. ABDOMEN: Soft, nontender, nondistended, normoactive bowel sounds. No palpable organomegaly. MUSCULOSKELETAL: No joint swelling or deformity. EXTREMITIES: No cyanosis, clubbing, or pedal edema. NEUROLOGICAL: Gross neurological examination did not reveal any focal deficits. Diffuse weakness SKIN: No rashes. Assessment and Plan Chest pain, atypical with shortness of breath concern for aspiration pneumonia Hypertension, uncontrolled Urinary tract infection present on admission without sepsis, likely catheter associated COPD Diabetes mellitus type 2 Recent diagnosis of progressive supranuclear palsy Coronary artery disease History of seizure disorder History of hepatitis C with liver cirrhosis Chronic pain with implanted pain pump GI prophylaxis Full Code Plan Continue IV ceftriaxone pending urine culture Speech therapy consult and continue pureed diet Pulmonology following Continue indwelling catheter; which is chronic ID following cultures Family wanting additional resources and will follow up tomorrow if decided on hospice consult Replace potassium and phosphorus Follow up labs The impression and plan of care has been dictated by Aby Madsen, Nurse Practitioner as directed. Dr. Christiano MD I have performed a history and physical examination and medical decision making of this patient, discussed the same with the dictator, and agree with the dictators assessment and plan as written, documented as a scribe. Based on total visit time, I have performed more than 50% of this visit. Objective - Vital Signs Vital signs: Vital Signs Temp 98.2 F 08/21/24 15:00 Pulse 68 08/21/24 15:14 Resp 17 08/21/24 15:00 BP 186/81 08/21/24 15:00 Pulse Ox 98 08/21/24 15:00 FiO2 Intake & Output 08/20/24 08/21/24 08/21/24 18:59 06:59 18:59 Intake Total 480 100 236 Output Total 3300 3000 2500 Balance -5062 -2661 -1314 Weight 81.647 kg Intake: Oral 480 100 236 Output: Urine 3300 3000 2500 Other: Voiding Method Indwelling Catheter Indwelling Catheter Indwelling Catheter - Labs CBC & Chem 7: 08/21/24 05:13 08/21/24 05:13 Labs: Abnormal Lab Results - Last 24 Hours (Table) 08/20/24 08/20/24 08/21/24 Range/Units 17:52 20:38 05:13 RBC 3.40 L (4.40-5.60) X 10*6/uL Hgb 11.2 L (13.0-17.0) g/dL Hct 33.9 L (39.6-50.0) % MCV 99.7 H (80.0-97.0) FL MCH 32.9 H (27.0-32.0) pg Plt Count 93 L (140-440) X 10*3/uL Potassium (3.5-5.5) mmol/L BUN (9.0-27.0) mg/dL Glucose (70-110) mg/dL POC Glucose (mg/dL) 228 H 164 H (70-110) mg/dL Phosphorus (2.4-5.1) mg/dL Albumin/Globulin Ratio (1.60-3.17) Ratio 08/21/24 08/21/24 08/21/24 Range/Units 05:13 06:02 12:03 RBC (4.40-5.60) X 10*6/uL Hgb (13.0-17.0) g/dL Hct (39.6-50.0) % MCV (80.0-97.0) FL MCH (27.0-32.0) pg Plt Count (140-440) X 10*3/uL Potassium 3.4 L (3.5-5.5) mmol/L BUN 8.7 L (9.0-27.0) mg/dL Glucose 161 H (70-110) mg/dL POC Glucose (mg/dL) 152 H 216 H (70-110) mg/dL Phosphorus 2.3 L (2.4-5.1) mg/dL Albumin/Globulin Ratio 1.43 L (1.60-3.17) Ratio Assessment and Plan Time with Patient: Less than 30
[2024-08-21 15:59] VITALS: BMI 25.8
--- NOTE | 2024-08-21 16:02 | P.PN ---
Subjective Progress Note Date: 08/21/24 Principal diagnosis: Reason for follow-up is UTI Patient is a 63-year-old male with a past medical history significant for COPD, CVA/TIA, Diabetes Mellitus, Hyperlipidemia, Hypertension, Memory Impairment, Myocardial Infarction ([place]), Prostate Disorder, Seizure Disorder, Skin Disorder patient has been brought back to the ER concerning for chest pain and some shortness of breath, patient did have a chronic indwelling Toth catheter positive UA concerning for symptomatic UTI. On today's evaluation that is 08/21/2024, patient has been afebrile, patient is breathing comfortably and is currently on 2 L current oxygen patient denies having any chest pain still have some cough but unable to bring up any sputum, patient denies nausea vomiting or diarrhea and no abdominal pain. Patient white count is 5.87, creatinine 0.6 urine cultures currently pending Objective - Vital Signs Vital signs: Vital Signs Temp 98.3 F 08/21/24 07:00 Pulse 76 08/21/24 09:19 Resp 18 08/21/24 07:00 BP 190/87 08/21/24 07:00 Pulse Ox 97 08/21/24 07:00 FiO2 Intake & Output 08/20/24 08/21/24 08/21/24 18:59 06:59 18:59 Intake Total 480 100 118 Output Total 3300 3000 1000 Balance -6881 -2900 -882 Weight 81.647 kg Intake: Oral 480 100 118 Output: Urine 3300 3000 1000 Other: Voiding Method Indwelling Catheter Indwelling Catheter Indwelling Catheter - Exam GENERAL DESCRIPTION: Middle-age male lying in bed in no distress RESPIRATORY SYSTEM: Unlabored breathing , decreased breath sounds at bases HEART: S1 S2 regular rate and rhythm , ABDOMEN: Soft , no tenderness EXTREMITIES: No edema feet - Labs CBC & Chem 7: 08/21/24 05:13 08/21/24 05:13 Labs: Abnormal Lab Results - Last 24 Hours (Table) 08/20/24 08/20/24 08/20/24 Range/Units 12:28 17:52 20:38 RBC (4.40-5.60) X 10*6/uL Hgb (13.0-17.0) g/dL Hct (39.6-50.0) % MCV (80.0-97.0) FL MCH (27.0-32.0) pg Plt Count (140-440) X 10*3/uL Potassium (3.5-5.5) mmol/L BUN (9.0-27.0) mg/dL Glucose (70-110) mg/dL POC Glucose (mg/dL) 152 H 228 H 164 H (70-110) mg/dL Phosphorus (2.4-5.1) mg/dL Albumin/Globulin Ratio (1.60-3.17) Ratio 08/21/24 08/21/24 08/21/24 Range/Units 05:13 05:13 06:02 RBC 3.40 L (4.40-5.60) X 10*6/uL Hgb 11.2 L (13.0-17.0) g/dL Hct 33.9 L (39.6-50.0) % MCV 99.7 H (80.0-97.0) FL MCH 32.9 H (27.0-32.0) pg Plt Count 93 L (140-440) X 10*3/uL Potassium 3.4 L (3.5-5.5) mmol/L BUN 8.7 L (9.0-27.0) mg/dL Glucose 161 H (70-110) mg/dL POC Glucose (mg/dL) 152 H (70-110) mg/dL Phosphorus 2.3 L (2.4-5.1) mg/dL Albumin/Globulin Ratio 1.43 L (1.60-3.17) Ratio Assessment and Plan (1) Urinary tract infection Current Visit: Yes Status: Acute Code(s): N39.0 - URINARY TRACT INFECTION, SITE NOT SPECIFIED SNOMED Code(s): 47926093 Plan: 1patient presented to the hospital multiple symptoms also have weakness he did have a low-grade fever positive UA concerning for possible component of catheter assisted UTI likely from today gram-negative pathogen as no other obvious focus of any infection chest x-ray was negative abdominal soft on clinical examination and no evidence of any cellulitis or joint swelling 2-patient cultures are currently pending we will continue patient on Rocephin while waiting for the culture to finalize Family at the bedside question answered Dictation was produced using [employer] dictation software. please excuse any grammatical, word or spelling errors. Time with Patient: Less than 30
[2024-08-21 17:13] LABS: Glucose,Whole Blood 130 mg/dL (70-110)
--- NOTE | 2024-08-21 18:53 | P.PN ---
Subjective Progress Note Date: 08/21/24 This is a 63-year-old male with past medical history significant for COPD, CVA, diabetes mellitus type 2, hypertension, coronary artery disease, CHF, abdominal aortic aneurysm, chronic back pain with pain pump, seizures, hepatitis C and liver cirrhosis. He has known history of moderate COPD, with an FEV1 58% of predicted. He is maintained on a combination of Yupelri, Perforomist, Pulmicort, and as needed albuterol nebs. He is wheelchair/bedbound. He is a very poor historian, his is his caregiver. She states he was recently diagnosed with progressive supranuclear palsy by neurology. He has had frequent admissions to this hospital. He was just discharged home on 07/29/2024. She had him brought back to the emergency room early this morning for complaints of chest pain and found to be hypertensive and with some shortness of breath. Chest x-ray reveals no acute pulmonary process. EKG reveals sinus rhythm without acute ST or T wave abnormalities. Count 9.9. Hemoglobin 12.5. Platele ts 111. Sodium 134. Potassium 3.7. Bicarb 26. BUN 11. Creatinine 0.51. Glucose 167. Troponin negative x 1. proBNP 925. Urinalysis with moderate blood, large leukocyte esterase high WBCs and occasional bacteria. Viral screen is negative. He is seen today in consultation on the regular medical floor. He is awake and alert. No acute distress. Maintaining O2 saturations in the 90s on 2 L/min per nasal cannula. No chest pain currently. Blood pressure 160/77. He is afebrile. On today's evaluation of 08/21/2024, the patient is being seen for a follow-up. The patient is known to have COPD, diabetes mellitus, hypertension, coronary artery disease, CHF and abdominal aortic aneurysm. The patient is a patient FEV1 of 58% of predicted. The patient has been maintained on a combination of Yupelri, Perforomist and Pulmicort on outpatient basis. He is wheelchair-bound. He is been diagnosed having progressive supranuclear palsy, had debilitating neurologic disease. The patient currently is on 2 L of oxygen by nasal cannula. He is on DuoNeb nebulized treatments [id number]. He is also on Yupelri. He was given IV Rocephin and the white cell count is at 5.8 with a hemoglobin 11.2 and a platelet count of 93. Electrolytes are all within normal limits. LFTs are normal. Chest x-ray was reviewed from the time of admission and it showed some atelectatic changes in lung bases 30. No clear airspace disease or consolidation. Objective - Vital Signs Vital signs: Vital Signs Temp 98.2 F 08/21/24 15:00 Pulse 71 08/21/24 15:00 Resp 17 08/21/24 15:00 BP 186/81 08/21/24 15:00 Pulse Ox 98 08/21/24 15:00 FiO2 Intake & Output 08/20/24 08/21/24 08/21/24 18:59 06:59 18:59 Intake Total 480 100 236 Output Total 3300 3000 2500 Balance -2820 -2900 -2264 Weight 81.647 kg Intake: Oral 480 100 236 Output: Urine 3300 3000 2500 Other: Voiding Method Indwelling Catheter Indwelling Catheter Indwelling Catheter - Exam GENERAL EXAM: Arousable, weak 63-year-old male, on 2 L nasal cannula, in no apparent distress. HEAD: Normocephalic. EYES: Normal reaction of pupils, equal size. NOSE: Clear with pink turbinates. THROAT: No erythema or exudates. NECK: No masses, no JVD. CHEST: No chest wall deformity. LUNGS: Equal air entry with no crackles, wheeze, rhonchi or dullness. CVS: S1 and S2 normal with no audible murmur, regular rhythm. ABDOMEN: No hepatosplenomegaly, normal bowel sounds, no guarding or rigidity. SPINE: No scoliosis or deformity SKIN: No rashes CENTRAL NERVOUS SYSTEM: No focal deficits, tone is normal in all 4 extremities. EXTREMITIES: There is no peripheral edema. No clubbing, no cyanosis. Peripheral pulses are intact. - Labs CBC & Chem 7: 08/21/24 05:13 08/21/24 05:13 Labs: Abnormal Lab Results - Last 24 Hours (Table) 08/20/24 08/20/24 08/21/24 Range/Units 17:52 20:38 05:13 RBC 3.40 L (4.40-5.60) X 10*6/uL Hgb 11.2 L (13.0-17.0) g/dL Hct 33.9 L (39.6-50.0) % MCV 99.7 H (80.0-97.0) FL MCH 32.9 H (27.0-32.0) pg Plt Count 93 L (140-440) X 10*3/uL Potassium (3.5-5.5) mmol/L BUN (9.0-27.0) mg/dL Glucose (70-110) mg/dL POC Glucose (mg/dL) 228 H 164 H (70-110) mg/dL Phosphorus (2.4-5.1) mg/dL Albumin/Globulin Ratio (1.60-3.17) Ratio 08/21/24 08/21/24 08/21/24 Range/Units 05:13 06:02 12:03 RBC (4.40-5.60) X 10*6/uL Hgb (13.0-17.0) g/dL Hct (39.6-50.0) % MCV (80.0-97.0) FL MCH (27.0-32.0) pg Plt Count (140-440) X 10*3/uL Potassium 3.4 L (3.5-5.5) mmol/L BUN 8.7 L (9.0-27.0) mg/dL Glucose 161 H (70-110) mg/dL POC Glucose (mg/dL) 152 H 216 H (70-110) mg/dL Phosphorus 2.3 L (2.4-5.1) mg/dL Albumin/Globulin Ratio 1.43 L (1.60-3.17) Ratio Assessment and Plan Plan: Atypical chest pain and hypertension with shortness of breath. EKG revealed no acute ST or T wave abnormalities. Initial troponin negative. Chest x-ray shows no acute process Underlying urinary tract infection, currently on ceftriaxone Recent diagnosis of progressive supranuclear palsy and the patient has been bedbound/wheelchair-bound Recent discharge on July 29, 2024 following up COPD exacerbation Chronic obstructive pulmonary disease with an FEV1 value of 58% of predicted. He is maintained on Yupelri, Perforomist and Pulmicort inhalations, and albuterol as needed History of CVA Memory impairment, previously considered for normal pressure hydrocephalus Diabetes mellitus type 2 Hypertension History of coronary artery disease with previous [facility] History of abdominal aortic aneurysm History of seizure disorder History of hepatitis C, with secondary liver cirrhosis Chronic thrombocytopenia Wheelchair dependent Chronic pain, reportedly with implanted pain pump Plan: Agree on the current management, will continue the same Chest x-ray shows no acute process Stable on his home dose of 2 L/min per nasal cannula Initiate Pulmicort and Perforomist inhalations Initiate DuoNeb inhalations Check a procalcitonin and the level was at 0.46 Continue ceftriaxone for now Case management for possible placement We will continue to follow and make further recommendations based on his clinical status
[2024-08-21] MEDS: hydrALAZINE HCL 10 MG TAB PO SCH (20:56)
[2024-08-21] MEDS: amLODIPine 5 MG TAB PO SCH (20:56)
[2024-08-21 20:57] LABS: Glucose,Whole Blood 131 mg/dL (70-110)
[2024-08-21] MEDS ORDERED: ZINC OXIDE PASTE (Z-GUARD) 1 APPLIC TOPICAL PRN (21:05)
[2024-08-22] MEDS: hydrALAZINE HCL 20 MG/ML 1 ML VIAL IVP STA (00:55)
[2024-08-22] MEDS: HYDROcodone/APAP 5-325MG 1 EACH TAB PO STA (01:38)
[2024-08-22 05:40] LABS: Glucose,Whole Blood 139 mg/dL (70-110)
[2024-08-22 09:06] LABS: Blood Urea Nitrogen 10.8 mg/dL (9.0-27.0); Calcium 9.5 mg/dL (8.7-10.3); Carbon Dioxide 21.7 mmol/L (21.6-31.8); Chloride 101 mmol/L (96-109); Glucose 145 mg/dL (70-110); Phosphorus 2.5 mg/dL (2.4-5.1); Potassium 3.5 mmol/L (3.5-5.5); Sodium 138 mmol/L (135-145)
[2024-08-22] MEDS: hydrALAZINE HCL 25 MG TAB PO SCH (10:21)
--- NOTE | 2024-08-22 12:58 | P.PN ---
Subjective Progress Note Date: 08/22/24 Principal diagnosis: Reason for follow-up is UTI Patient is a 63-year-old male with a past medical history significant for COPD, CVA/TIA, Diabetes Mellitus, Hyperlipidemia, Hypertension, Memory Impairment, Myocardial Infarction ([place]), Prostate Disorder, Seizure Disorder, Skin Disorder patient has been brought back to the ER concerning for chest pain and some shortness of breath, patient did have a chronic indwelling Toth catheter positive UA concerning for symptomatic UTI. On today's evaluation that is 08/22/2024, Patient is afebrile this morning patient denies having any chest pain shortness of breath or any worsening cough, the patient is currently on 2 L nasal oxygen, patient denies any abdominal pain no diarrhea no nausea no vomiting. Patient did have creatinine 0.6 blood urine culture currently pending Objective - Vital Signs Vital signs: Vital Signs Temp 98.1 F 08/22/24 07:00 Pulse 76 08/22/24 08:05 Resp 16 08/22/24 07:00 BP 182/80 08/22/24 07:00 Pulse Ox 96 08/22/24 07:42 FiO2 Intake & Output 08/21/24 08/22/24 08/22/24 18:59 06:59 18:59 Intake Total 236 75 Output Total 4100 1825 Balance -3864 -1825 75 Weight 81.647 kg Intake: Oral 236 75 Output: Urine 4100 1825 Other: Voiding Method Indwelling Catheter Indwelling Catheter Indwelling Catheter - Exam GENERAL DESCRIPTION: Middle-age male lying in bed in no distress RESPIRATORY SYSTEM: Unlabored breathing , decreased breath sounds at bases HEART: S1 S2 regular rate and rhythm , ABDOMEN: Soft , no tenderness EXTREMITIES: No edema feet - Labs CBC & Chem 7: 08/21/24 05:13 08/22/24 04:45 Labs: Abnormal Lab Results - Last 24 Hours (Table) 08/21/24 08/21/24 08/21/24 Range/Units 12:03 17:12 20:55 Anion Gap (4.00-12.00) mmol/L Glucose (70-110) mg/dL POC Glucose (mg/dL) 216 H 130 H 131 H (70-110) mg/dL 08/22/24 08/22/24 Range/Units 04:45 05:39 Anion Gap 15.30 H (4.00-12.00) mmol/L Glucose 145 H (70-110) mg/dL POC Glucose (mg/dL) 139 H (70-110) mg/dL Microbiology - Last 24 Hours (Table) 08/20/24 16:36 Blood Culture - Preliminary Blood 08/20/24 15:35 Urine Culture - Preliminary Urine,Catheterized Assessment and Plan (1) Urinary tract infection Current Visit: Yes Status: Acute Code(s): N39.0 - URINARY TRACT INFECTION, SITE NOT SPECIFIED SNOMED Code(s): 84750445 Plan: 1patient presented to the hospital multiple symptoms also have weakness he did have a low-grade fever positive UA concerning for possible component of catheter assisted UTI likely from today gram-negative pathogen as no other obvious focus of any infection chest x-ray was negative abdominal soft on clinical examination and no evidence of any cellulitis or joint swelling 2-patient blood and cultures are currently pending, to continue treatment with Rocephin while waiting for the culture to finalize Dictation was produced using [employer] dictation software. please excuse any grammatical, word or spelling errors. Time with Patient: Less than 30
[2024-08-22 13:08] LABS: Glucose,Whole Blood 112 mg/dL (70-110)
--- NOTE | 2024-08-22 17:18 | P.PN ---
Subjective Progress Note Date: 08/22/24 Is a pleasant 63 male with medical history of recent diagnosis of progressive supranuclear palsy follows along with neurology on an outpatient basis. Patient was concern for acute urinary tract infection recently had his chronic Toth catheter changed out. He remains on IV ceftriaxone urine culture is currently pending with ID following closely. Patient's at the bedside does state that she has been giving him regular diet at home and she is concerned that he may be aspirating states that he seems to be doing better with that. Diet here. We did consult speech therapy to evaluate the patient. There was concern for some aspiration pneumonia on admission as well. Patient's does state that she has hard time getting him to his doctor appointments and is wondering about having a nurse practitioner out to the house to check on him versus going to the office. Did discuss that there are options available such as visiting physicians and the pace program. She would like more information about these is also wondering about a hospice consultation. States that she already has [facility]. Patient is awake alert oriented in no acute distress his white blood cell count is 5.87 hemoglobin 11.2, sodium 139, potassium 3.4, BUN of 8.7 creatinine of 0.6, phosphorus of 2.3. Is afebrile. Heart rate of 68 normal sinus rhythm. Patient has been hypertensive. 08/22/2024 Patient evaluated today in follow up. Has been complaining of lower back pain. Urine culture still pending. Remains on IV ceftriaxone. ID following. Renal function WNL. Review of Systems Constitutional: Denied any fatigue denied any fever. Cardio vascular: denied any chest pain, palpitations Gastrointestinal: denied any nausea, vomiting, diarrhea Pulmonary: Denied any shortness of breath cough Neurologic denied any new focal deficits All inpatient medications were reviewed and appropriate changes in these medications as dictated in the interval history and assessment and plan. PHYSICAL EXAMINATION: GENERAL: The patient is alert and oriented x1-2, not in any acute distress. Well developed, well nourished. on 2L, elderly appearing HEENT: Pupils are round and equally reacting to light. EOMI. No scleral icterus. No conjunctival pallor. Normocephalic, atraumatic. No pharyngeal erythema. No thyromegaly. CARDIOVASCULAR: S1 and S2 present. No murmurs, rubs, or gallops. PULMONARY: Chest is clear to auscultation, no wheezing or crackles. ABDOMEN: Soft, nontender, nondistended, normoactive bowel sounds. No palpable organomegaly. MUSCULOSKELETAL: No joint swelling or deformity. EXTREMITIES: No cyanosis, clubbing, or pedal edema. NEUROLOGICAL: Gross neurological examination did not reveal any focal deficits. Diffuse weakness SKIN: No rashes. Assessment and Plan Chest pain, atypical with shortness of breath concern for aspiration pneumonia Hypertension, uncontrolled Urinary tract infection present on admission without sepsis, likely catheter associated COPD Diabetes mellitus type 2 Recent diagnosis of progressive supranuclear palsy Coronary artery disease History of seizure disorder History of hepatitis C with liver cirrhosis Chronic pain with implanted pain pump GI prophylaxis Full Code Plan Continue IV ceftriaxone pending final urine culture to determine discharge antib iotics. Speech therapy following and diet has been upgraded to ground Pulmonology following Continue indwelling catheter; which is chronic ID following cultures Family wanting additional resources The impression and plan of care has been dictated by Aby Madsen, Nurse Practitioner as directed. Dr. Christiano MD I have performed a history and physical examination and medical decision making of this patient, discussed the same with the dictator, and agree with the dictators assessment and plan as written, documented as a scribe. Based on total visit time, I have performed more than 50% of this visit. Objective - Vital Signs Vital signs: Vital Signs Temp 98.1 F 08/22/24 07:00 Pulse 76 08/22/24 08:05 Resp 16 08/22/24 07:00 BP 182/80 08/22/24 07:00 Pulse Ox 96 08/22/24 07:42 FiO2 Intake & Output 08/21/24 08/22/24 08/22/24 18:59 06:59 18:59 Intake Total 236 75 Output Total 4100 1825 Balance -8324 1825 75 Weight 81.647 kg Intake: Oral 236 75 Output: Urine 4100 1825 Other: Voiding Method Indwelling Catheter Indwelling Catheter Indwelling Catheter - Labs CBC & Chem 7: 08/21/24 05:13 08/22/24 04:45 Labs: Abnormal Lab Results - Last 24 Hours (Table) 08/21/24 08/21/24 08/21/24 Range/Units 12:03 17:12 20:55 Anion Gap (4.00-12.00) mmol/L Glucose (70-110) mg/dL POC Glucose (mg/dL) 216 H 130 H 131 H (70-110) mg/dL 08/22/24 08/22/24 Range/Units 04:45 05:39 Anion Gap 15.30 H (4.00-12.00) mmol/L Glucose 145 H (70-110) mg/dL POC Glucose (mg/dL) 139 H (70-110) mg/dL Microbiology - Last 24 Hours (Table) 08/20/24 16:36 Blood Culture - Preliminary Blood 08/20/24 15:35 Urine Culture - Preliminary Urine,Catheterized Assessment and Plan Time with Patient: Less than 30
[2024-08-22 17:19] LABS: Glucose,Whole Blood 125 mg/dL (70-110)
--- NOTE | 2024-08-22 19:20 | P.PN ---
Subjective Progress Note Date: 08/22/24 This is a 63-year-old male with past medical history significant for COPD, CVA, diabetes mellitus type 2, hypertension, coronary artery disease, CHF, abdominal aortic aneurysm, chronic back pain with pain pump, seizures, hepatitis C and liver cirrhosis. He has known history of moderate COPD, with an FEV1 58% of predicted. He is maintained on a combination of Yupelri, Perforomist, Pulmicort, and as needed albuterol nebs. He is wheelchair/bedbound. He is a very poor historian, his is his caregiver. She states he was recently diagnosed with progressive supranuclear palsy by neurology. He has had frequent admissions to this hospital. He was just discharged home on 07/29/2024. She had him brought back to the emergency room early this morning for complaints of chest pain and found to be hypertensive and with some shortness of breath. Chest x-ray reveals no acute pulmonary process. EKG reveals sinus rhythm without acute ST or T wave abnormalities. Count 9.9. Hemoglobin 12.5. Platele ts 111. Sodium 134. Potassium 3.7. Bicarb 26. BUN 11. Creatinine 0.51. Glucose 167. Troponin negative x 1. proBNP 925. Urinalysis with moderate blood, large leukocyte esterase high WBCs and occasional bacteria. Viral screen is negative. He is seen today in consultation on the regular medical floor. He is awake and alert. No acute distress. Maintaining O2 saturations in the 90s on 2 L/min per nasal cannula. No chest pain currently. Blood pressure 160/77. He is afebrile. On today's evaluation of 08/21/2024, the patient is being seen for a follow-up. The patient is known to have COPD, diabetes mellitus, hypertension, coronary artery disease, CHF and abdominal aortic aneurysm. The patient is a patient FEV1 of 58% of predicted. The patient has been maintained on a combination of Yupelri, Perforomist and Pulmicort on outpatient basis. He is wheelchair-bound. He is been diagnosed having progressive supranuclear palsy, had debilitating neurologic disease. The patient currently is on 2 L of oxygen by nasal cannula. He is on DuoNeb nebulized treatments [id number]. He is also on Yupelri. He was given IV Rocephin and the white cell count is at 5.8 with a hemoglobin 11.2 and a platelet count of 93. Electrolytes are all within normal limits. LFTs are normal. Chest x-ray was reviewed from the time of admission and it showed some atelectatic changes in lung bases 30. No clear airspace disease or consolidation. 08/22/2024, the patient remains on 2 L of oxygen by nasal cannula with a pulse ox of 97%. Overall condition is stable. Remains on IV Rocephin. No significant respiratory distress. BUN is 10 with a creatinine of 0.6. Sodium levels at 138 and a potassium level of 3.5. Remains on Yupelri, DuoNeb updrafts and Pulmicort Respules. Urine cultures positive for Irena albicans, blood culture still pending. Objective - Vital Signs Vital signs: Vital Signs Temp 98.6 F 08/22/24 15:00 Pulse 74 08/22/24 15:55 Resp 18 08/22/24 15:00 BP 169/62 08/22/24 15:00 Pulse Ox 97 08/22/24 15:00 FiO2 Intake & Output 08/22/24 08/22/24 08/23/24 06:59 18:59 06:59 Intake Total 845 Output Total 1825 1050 Balance -1824 - Intake: Oral 845 Output: Urine 1825 1050 Other: Voiding Method Indwelling Catheter Indwelling Catheter # Bowel Movements 1 - Exam GENERAL EXAM: Arousable, weak 63-year-old male, on 2 L nasal cannula, in no apparent distress. HEAD: Normocephalic. EYES: Normal reaction of pupils, equal size. NOSE: Clear with pink turbinates. THROAT: No erythema or exudates. NECK: No masses, no JVD. CHEST: No chest wall deformity. LUNGS: Equal air entry with no crackles, wheeze, rhonchi or dullness. CVS: S1 and S2 normal with no audible murmur, regular rhythm. ABDOMEN: No hepatosplenomegaly, normal bowel sounds, no guarding or rigidity. SPINE: No scoliosis or deformity SKIN: No rashes CENTRAL NERVOUS SYSTEM: No focal deficits, tone is normal in all 4 extremities. EXTREMITIES: There is no peripheral edema. No clubbing, no cyanosis. Peripheral pulses are intact. - Labs CBC & Chem 7: 08/21/24 05:13 08/22/24 04:45 Labs: Abnormal Lab Results - Last 24 Hours (Table) 08/21/24 08/22/24 08/22/24 Range/Units 20:55 04:45 05:39 Anion Gap 15.30 H (4.00-12.00) mmol/L Glucose 145 H (70-110) mg/dL POC Glucose (mg/dL) 131 H 139 H (70-110) mg/dL 08/22/24 08/22/24 Range/Units 13:07 17:18 Anion Gap (4.00-12.00) mmol/L Glucose (70-110) mg/dL POC Glucose (mg/dL) 112 H 125 H (70-110) mg/dL Microbiology - Last 24 Hours (Table) 08/20/24 15:35 Urine Culture - Final Urine,Catheterized Irena albicans 08/20/24 16:36 Blood Culture - Preliminary Blood Assessment and Plan Plan: Atypical chest pain and hypertension with shortness of breath. EKG revealed no acute ST or T wave abnormalities. Initial troponin negative. Chest x-ray shows no acute process, remains on IV Rocephin UTI, suspected Recent diagnosis of progressive supranuclear palsy and the patient has been bedbound/wheelchair-bound Recent discharge on July 29, 2024 following up COPD exacerbation Chronic obstructive pulmonary disease with an FEV1 value of 58% of predicted. He is maintained on Yupelri, Perforomist and Pulmicort inhalations, and albuterol as needed History of CVA Memory impairment, previously considered for normal pressure hydrocephalus Diabetes mellitus type 2 Hypertension History of coronary artery disease with previous IA History of abdominal aortic aneurysm History of seizure disorder History of hepatitis C, with secondary liver cirrhosis Chronic thrombocytopenia Wheelchair dependent Chronic pain, reportedly with implanted pain pump Plan: Agree on the current management, will continue the same Chest x-ray shows no acute process Stable on his home dose of 2 L/min per nasal cannula Initiate Pulmicort and Perforomist inhalations Continue Yupelri DuoNeb inhalations Check a procalcitonin and the level was at 0.46 Continue ceftriaxone for now Case management for possible placement We will continue to follow and make further recommendations based on his clinical status
[2024-08-22] MEDS: HEPARIN SODIUM,PORCINE 5,000 UNIT/ML 1 ML VIAL SQ SCH (20:09)
[2024-08-22 20:19] LABS: Glucose,Whole Blood 232 mg/dL (70-110)
[2024-08-23 06:33] LABS: Glucose,Whole Blood 212 mg/dL (70-110)
[2024-08-23 07:34] LABS: Glucose,Whole Blood 175 mg/dL (70-110)
--- NOTE | 2024-08-23 10:40 | CDI ---
Documentation Clarification Form Date: 08/23/2024 10:11:00 AM From: Nina Paulson RN, CCDS Phone: [phone] Admit Date: 08/20/2024 06:41:00 AM Patient Name: Sukh Zamarripa Visit Number: [id number] Discharge Date: ATTENTION: The Clinical Documentation Specialists (CDI) and [facility] Coding Staff appreciate your assistance in clarifying documentation. Please respond to the clarification below the line at the bottom and electronically sign. The CDI & [facility] Coding staff will review the response and follow-up if needed. Please note: Queries are made part of the Legal Health Record. If you have any questions, please contact the author of this message via ITS. Provider: Aby ALONSO A stage II buttock, pressure ulcer is documented by Wound Care assessment on 08/20/24. Based on this information and the findings below, is there an additional diagnosis that is clinically appropriate for this patient? History/Risk Factors: CVA/TIA, Diabetes Mellitus, progressive supranuclear palsy. Clinical Indicators: 63-year-old male recent diagnosis of progressive supranuclear palsy and the patient has been bedbound/wheelchair-bound. Has buttock pressure ulcer stage II present on admission per wound care assessment Location: buttock Wound description: scant amount of drainage. Buttocks reddened and unbleachable, small scratches noted, two very small pea-sized areas that are open, on each side. Treatment: Dressing changes daily Foam w/Border Turn Q2 HRS Is there an additional diagnosis that is clinically appropriate for this patient? [x ] Buttocks Pressure Ulcer Stage 2, present on admission per wound care assessment [ ] Other condition, please specify [ ] Unable to determine Clinical Definitions: Stage 1 Pressure Ulcer: intact skin, non-blanching redness of local area Stage 2 Pressure Ulcer: Partial thickness, loss of dermis, pink wound bed Stage 3 Pressure Ulcer: Full thickness tissue loss Stage 4 Pressure Ulcer: Full thickness tissue loss with exposed bone, tendon, or muscle. Unstageable pressure ulcer: Full thickness tissue loss in which the base of the ulcer is covered by slough (yellow, rowe, boroks, green or brown) and/or eschar (rowe, brown or black) in the wound bed. (Template Last Revised: August 2020) MTDD
[2024-08-23 12:13] LABS: Glucose,Whole Blood 179 mg/dL (70-110)
[2024-08-23 14:58] VITALS: BP 153/80; PULSE 92; RESP 16; TEMP 98.3
--- NOTE | 2024-08-23 16:55 | P.PN ---
Subjective Progress Note Date: 08/23/24 Principal diagnosis: Reason for follow-up is UTI Patient is a 63-year-old male with a past medical history significant for COPD, CVA/TIA, Diabetes Mellitus, Hyperlipidemia, Hypertension, Memory Impairment, Myocardial Infarction ([place]), Prostate Disorder, Seizure Disorder, Skin Disorder patient has been brought back to the ER concerning for chest pain and some shortness of breath, patient did have a chronic indwelling Toth catheter positive UA concerning for symptomatic UTI. On today's evaluation that is 08/23/2024,the patient denies any fever or any chills, patient is breathing comfortably on 3 L nasal oxygen no chest pain no cough no abdominal pain or diarrhea. No new lab has been repeated today urine culture with Irena albicans blood culture has been negative so far Objective - Vital Signs Vital signs: Vital Signs Temp 99.3 F 08/23/24 07:00 Pulse 70 08/23/24 12:55 Resp 18 08/23/24 07:58 BP 175/83 08/23/24 07:00 Pulse Ox 95 08/23/24 09:25 FiO2 Intake & Output 08/22/24 08/23/24 08/23/24 18:59 06:59 18:59 Intake Total 845 221 Output Total 1050 1200 Balance -205 -1200 221 Intake: Oral 845 221 Output: Urine 1050 1200 Other: Voiding Method Indwelling Catheter Indwelling Catheter Indwelling Catheter # Voids 2 # Bowel Movements 1 1 - Exam GENERAL DESCRIPTION: Middle-age male lying in bed in no distress RESPIRATORY SYSTEM: Unlabored breathing , decreased breath sounds at bases HEART: S1 S2 regular rate and rhythm , ABDOMEN: Soft , no tenderness EXTREMITIES: No edema feet - Labs CBC & Chem 7: 08/21/24 05:13 08/22/24 04:45 Labs: Abnormal Lab Results - Last 24 Hours (Table) 08/22/24 08/22/24 08/22/24 Range/Units 13:07 17:18 20:18 POC Glucose (mg/dL) 112 H 125 H 232 H (70-110) mg/dL 08/23/24 08/23/24 08/23/24 Range/Units 06:31 07:32 12:12 POC Glucose (mg/dL) 212 H 175 H 179 H (70-110) mg/dL Microbiology - Last 24 Hours (Table) 08/20/24 16:36 Blood Culture - Preliminary Blood 08/20/24 15:35 Urine Culture - Final Urine,Catheterized Irena albicans Assessment and Plan (1) Urinary tract infection Status: Acute Code(s): N39.0 - URINARY TRACT INFECTION, SITE NOT SPECIFIED SNOMED Code(s): 29048187 Plan: 1patient presented to the hospital multiple symptoms also have weakness he did have a low-grade fever positive UA concerning for possible component of catheter assisted UTI likely from today gram-negative pathogen as no other obvious focus of any infection chest x-ray was negative abdominal soft on clinical examination and no evidence of any cellulitis or joint swelling 2-patient blood cultures so far negative urine is growing Irena he will receive the 5-day course of Diflucan to finish his course of therapy discussed with INDUSTRIAL RELATIONS ANALYST for admitting team Dictation was produced using [employer] dictation software. please excuse any grammatical, word or spelling errors. Time with Patient: Less than 30
--- NOTE | 2024-08-23 20:13 | P.PN ---
Subjective Progress Note Date: 08/23/24 This is a 63-year-old male with past medical history significant for COPD, CVA, diabetes mellitus type 2, hypertension, coronary artery disease, CHF, abdominal aortic aneurysm, chronic back pain with pain pump, seizures, hepatitis C and liver cirrhosis. He has known history of moderate COPD, with an FEV1 58% of predicted. He is maintained on a combination of Yupelri, Perforomist, Pulmicort, and as needed albuterol nebs. He is wheelchair/bedbound. He is a very poor historian, his is his caregiver. She states he was recently diagnosed with progressive supranuclear palsy by neurology. He has had frequent admissions to this hospital. He was just discharged home on 07/29/2024. She had him brought back to the emergency room early this morning for complaints of chest pain and found to be hypertensive and with some shortness of breath. Chest x-ray reveals no acute pulmonary process. EKG reveals sinus rhythm without acute ST or T wave abnormalities. Count 9.9. Hemoglobin 12.5. Platele ts 111. Sodium 134. Potassium 3.7. Bicarb 26. BUN 11. Creatinine 0.51. Glucose 167. Troponin negative x 1. proBNP 925. Urinalysis with moderate blood, large leukocyte esterase high WBCs and occasional bacteria. Viral screen is negative. He is seen today in consultation on the regular medical floor. He is awake and alert. No acute distress. Maintaining O2 saturations in the 90s on 2 L/min per nasal cannula. No chest pain currently. Blood pressure 160/77. He is afebrile. On today's evaluation of 08/21/2024, the patient is being seen for a follow-up. The patient is known to have COPD, diabetes mellitus, hypertension, coronary artery disease, CHF and abdominal aortic aneurysm. The patient is a patient FEV1 of 58% of predicted. The patient has been maintained on a combination of Yupelri, Perforomist and Pulmicort on outpatient basis. He is wheelchair-bound. He is been diagnosed having progressive supranuclear palsy, had debilitating neurologic disease. The patient currently is on 2 L of oxygen by nasal cannula. He is on DuoNeb nebulized treatments [id number]. He is also on Yupelri. He was given IV Rocephin and the white cell count is at 5.8 with a hemoglobin 11.2 and a platelet count of 93. Electrolytes are all within normal limits. LFTs are normal. Chest x-ray was reviewed from the time of admission and it showed some atelectatic changes in lung bases 30. No clear airspace disease or consolidation. 08/22/2024, the patient remains on 2 L of oxygen by nasal cannula with a pulse ox of 97%. Overall condition is stable. Remains on IV Rocephin. No significant respiratory distress. BUN is 10 with a creatinine of 0.6. Sodium levels at 138 and a potassium level of 3.5. Remains on Yupelri, DuoNeb updrafts and Pulmicort Respules. Urine cultures positive for Irena albicans, blood culture still pending. On 08/23/2024, the patient is stable on 3 L of oxygen by nasal cannula with pulse ox of 97%. No new complaints. Able to swallow. No altered mentation. Very much debilitated related to his supranuclear palsy which is a progressive richard rologic disorder. No cough no sputum production. No altered mentation. Family is at the bedside. The patient is to be discharged home today on a course of Diflucan. He will resume his nebulized respiratory medications on outpatient basis. He is on Yupelri and DuoNeb nebulized treatments and is also on formoterol. Objective - Vital Signs Vital signs: Vital Signs Temp 99.3 F 08/23/24 07:00 Pulse 70 08/23/24 12:55 Resp 18 08/23/24 13:03 BP 175/83 08/23/24 07:00 Pulse Ox 95 08/23/24 09:25 FiO2 Intake & Output 08/22/24 08/23/24 08/23/24 18:59 06:59 18:59 Intake Total 845 221 Output Total 1050 1200 Balance -205 -1200 221 Intake: Oral 845 221 Output: Urine 1050 1200 Other: Voiding Method Indwelling Catheter Indwelling Catheter Indwelling Catheter # Voids 2 # Bowel Movements 1 1 - Exam GENERAL EXAM: Arousable, weak 63-year-old male, on 2 L nasal cannula, in no apparent distress. HEAD: Normocephalic. EYES: Normal reaction of pupils, equal size. NOSE: Clear with pink turbinates. THROAT: No erythema or exudates. NECK: No masses, no JVD. CHEST: No chest wall deformity. LUNGS: Equal air entry with no crackles, wheeze, rhonchi or dullness. CVS: S1 and S2 normal with no audible murmur, regular rhythm. ABDOMEN: No hepatosplenomegaly, normal bowel sounds, no guarding or rigidity. SPINE: No scoliosis or deformity SKIN: No rashes CENTRAL NERVOUS SYSTEM: No focal deficits, tone is normal in all 4 extremities. EXTREMITIES: There is no peripheral edema. No clubbing, no cyanosis. Peripheral pulses are intact. - Labs CBC & Chem 7: 08/21/24 05:13 08/22/24 04:45 Labs: Abnormal Lab Results - Last 24 Hours (Table) 08/22/24 08/22/24 08/23/24 Range/Units 17:18 20:18 06:31 POC Glucose (mg/dL) 125 H 232 H 212 H (70-110) mg/dL 08/23/24 08/23/24 Range/Units 07:32 12:12 POC Glucose (mg/dL) 175 H 179 H (70-110) mg/dL Microbiology - Last 24 Hours (Table) 08/20/24 16:36 Blood Culture - Preliminary Blood 08/20/24 15:35 Urine Culture - Final Urine,Catheterized Irena albicans Assessment and Plan Plan: Atypical chest pain and hypertension with shortness of breath. EKG revealed no acute ST or T wave abnormalities. Initial troponin negative. Chest x-ray shows no acute process, remains on IV Rocephin. Clinically stable. Free of any chest pain UTI, suspected, cultures are positive for Irena, currently on Diflucan Recent diagnosis of progressive supranuclear palsy and the patient has been bedbound/wheelchair-bound Recent discharge on July 29, 2024 following up COPD exacerbation Chronic obstructive pulmonary disease with an FEV1 value of 58% of predicted. He is maintained on Yupelri, Perforomist and Pulmicort inhalations, and albuterol as needed History of CVA Memory impairment, previously considered for normal pressure hydrocephalus Diabetes mellitus type 2 Hypertension History of coronary artery disease with previous AR History of abdominal aortic aneurysm History of seizure disorder History of hepatitis C, with secondary liver cirrhosis Chronic thrombocytopenia Wheelchair dependent Chronic pain, reportedly with implanted pain pump Plan: Clinically stable Chest x-ray shows no acute process Stable on his home dose of 2 to 3 L/min per nasal cannula Will discharge home today Continue Yupelri DuoNeb inhalations Check a procalcitonin and the level was at 0.46 Long-term prognosis poor specially with his underlying progressive supranuclear palsy.
--- NOTE | 2024-08-24 22:44 | P.DS ---
Providers Date of admission: 08/20/24 06:41 Attending physician: Nabil Loyola Consults: 08/20/24 06:40 Consult Physician Routine Consulting Provider: Isreal Torres Consult Reason/Comments: known Do you want consulting provider notified?: Yes 08/20/24 14:09 Consult Physician Routine Consulting Provider: Gia Hurd Consult Reason/Comments: sepsis Do you want consulting provider notified?: Yes Primary care physician: Dmitriy Liu MD Hospital Course: Final Diagnosis Chest pain, atypical with shortness of breath concern for aspiration pneumonia Hypertension, uncontrolled Urinary tract infection present on admission without sepsis, likely catheter associated COPD Diabetes mellitus type 2 Recent diagnosis of progressive supranuclear palsy Coronary artery disease History of seizure disorder History of hepatitis C with liver cirrhosis Chronic pain with implanted pain pump Discharge Disposition Stable for discharge home. Complete oral diflucan for 5 days. Blood pressure medications adjusted. Repeat labs 2 to 3 days. Follow up with PCP Dr. Dmitriy Liu. Follow up with Dr. Hurd in 1 week. Patient's does state that she has hard time getting him to his doctor appointments and is wondering about having a nurse practitioner out to the house to check on him versus going to the office. She was given information for [facility]. Hospital Course Patient is a 63-year-old male with a past medical history significant for COPD, CVA/TIA, Diabetes Mellitus, Hyperlipidemia, Hypertension, Memory Impairment, Myocardial Infarction (MS), Prostate Disorder, Seizure Disorder, S kin Disorder patient has been brought back to the ER concerning for chest pain and some shortness of breath. Patient was recently diagnosis of progressive supranuclear palsy follows along with neurology on an outpatient basis. Patient had concern for acute urinary tract infection; recently had his chronic Toth catheter changed out. He was started on IV ceftriaxone with pending urine culture and ID was consulted. Patient's at the bedside does state that she has been giving him regular diet at home and she is concerned that he may be aspirating states that he seems to be doing better with the pureed diet. We did consult speech therapy to evaluate the patient. Speech therapy recommending ground dysphagia diet. Pulmonology following as well. Clinically patient had improved. His urine culture comes back positive for hi and ID recommending 5 days of oral diflucan on disharge. He has had negative blood cultures. White blood cell count normal. BUN 10.8, creatinine 0.6. Please see medication reconciliation for a list of current medications. Thank you for allowing us to participate in the care of this patient. The impression and plan of care has been dictated by Aby Madsen, Nurse Practitioner as directed. Dr. Christiano MD I have performed a history and physical examination and medical decision making of this patient, discussed the same with the dictator, and agree with the dictators assessment and plan as written, documented as a scribe. Based on total visit time, I have performed more than 50% of this visit. Patient Condition at Discharge: Fair Plan - Discharge Summary New Discharge Prescriptions: New Fluconazole [Diflucan] 100 mg PO DAILY #5 tab hydrALAZINE HCL [Apresoline] 25 mg PO BID #60 tab amLODIPine [Norvasc] 5 mg PO BID #60 tab Continue Ferrous Sulfate [Iron (65 MG Elemental)] 325 mg PO HS Primidone [Mysoline] 50 mg PO HS Lacosamide [Vimpat] 200 mg PO BID #6 tab Insulin Lispro [humaLOG Kwikpen] See Protocol SQ ACHS Ipratropium-Albuterol Nebulize [Duoneb 0.5 mg-3 mg/3 ml Soln] 3 ml INHALATION RT-TID Escitalopram [Lexapro] 10 mg PO HS Budesonide [Pulmicort] 1 mg INHALATION RT-BID #20 each Yupelri 175mg/3ml 175 mg INHALATION RT-DAILY@1300 fentaNYL 12MCG/HR PATCH [Duragesic 12MCG/HR] 1 patch TRANSDERM Q48H Clopidogrel [Plavix] 75 mg PO HS Rosuvastatin Calcium [Crestor] 40 mg PO HS Aspirin EC [Ecotrin Low Dose] 81 mg PO HS Multivitamins, Thera [Multivitamin (formulary)] 1 tab PO DAILY Lactulose [Cephulac] 20 gm PO TID-W/MEALS Acetaminophen Tab [Tylenol] 1,000 mg PO BID Formoterol Fumarate [Perforomist] 20 mcg INHALATION RT-BID Albuterol Sulfate [Albuterol Sulfate Hfa] 2 puff INHALATION RT-Q6H PRN PRN Reason: Shortness Of Breath Insulin Glargine,Hum.rec.anlog [Lantus Solostar Pen] 48 units SQ DAILY Nystatin [Nystop] 1 applic TOPICAL BID Discontinued amLODIPine [Norvasc] 2.5 mg PO BID Nitrofurantoin Monohyd/M-Cryst [Macrobid] 100 mg PO Q12HR #14 cap Discharge Medication List Ferrous Sulfate [Iron (65 MG Elemental)] 325 mg PO HS 12/10/20 [History] Clopidogrel [Plavix] 75 mg PO HS 06/30/21 [History] Primidone [Mysoline] 50 mg PO HS 06/30/21 [History] Rosuvastatin Calcium [Crestor] 40 mg PO HS 03/14/23 [History] Lacosamide [Vimpat] 200 mg PO BID #6 tab 03/16/23 [Rx] Aspirin EC [Ecotrin Low Dose] 81 mg PO HS 05/22/23 [History] Multivitamins, Thera [Multivitamin (formulary)] 1 tab PO DAILY 05/22/23 [History] Lactulose [Cephulac] 20 gm PO TID-W/MEALS 09/08/23 [History] Insulin Lispro [humaLOG Kwikpen] See Protocol SQ ACHS 10/12/23 [History] Acetaminophen Tab [Tylenol] 1,000 mg PO BID 03/12/24 [History] Formoterol Fumarate [Perforomist] 20 mcg INHALATION RT-BID 03/12/24 [History] Ipratropium-Albuterol Nebulize [Duoneb 0.5 mg-3 mg/3 ml Soln] 3 ml INHALATION RT-TID 03/12/24 [History] Albuterol Sulfate [Albuterol Sulfate Hfa] 2 puff INHALATION RT-Q6H PRN 05/30/24 [History] Escitalopram [Lexapro] 10 mg PO HS 07/25/24 [History] Insulin Glargine,Hum.rec.anlog [Lantus Solostar Pen] 48 units SQ DAILY 07/25/24 [History] Nystatin [Nystop] 1 applic TOPICAL BID 07/25/24 [History] Budesonide [Pulmicort] 1 mg INHALATION RT-BID #20 each 07/29/24 [Rx] Yupelri 175mg/3ml 175 mg INHALATION RT-DAILY@1300 08/20/24 [History] fentaNYL 12MCG/HR PATCH [Duragesic 12MCG/HR] 1 patch TRANSDERM Q48H 08/20/24 [History] Fluconazole [Diflucan] 100 mg PO DAILY #5 tab 08/23/24 [Rx] amLODIPine [Norvasc] 5 mg PO BID #60 tab 08/23/24 [Rx] hydrALAZINE HCL [Apresoline] 25 mg PO BID #60 tab 08/23/24 [Rx] Follow up Appointment(s)/Referral(s): Dmitriy Liu MD [Primary Care Provider] - 1-2 days [facility], [NON-STAFF] - As Needed Gia Hurd MD [STAFF PHYSICIAN] - 08/30/24 3:45 pm Ambulatory/Diagnostic Orders: Basic Metabolic Panel [LAB.AMB] Time Frame: 3 Days, Location: None Selected Complete Blood Count w/diff [LAB.AMB] Location: None Selected Activity/Diet/Wound Care/Special Instructions: >>>>[facility] - IN HOME DOCTOR<<<< New Patients or Caregivers: Medical Group or Primary Care [phone] Continue with Ground Diet with 1:1 Supervision aspiration precautions patient should be sitting up 90* for all meals. Continue oral diflucan for 5 days Discharge Disposition: HOME WITH HOME HEALTH SERVICES
== END 2024-08-23 15:40 | disposition home health service (06) | DRG 466 ==
LOC: EC 03:44 → 6NMEDSUR 06:40 → OBSVTOIN 06:41 → 6NMEDSUR 07:49
PROVIDERS: ADMIT Hospitalist; ATTEND Hospitalist
DX: T83.511A Infection and inflammatory reaction due to indwelling urethral catheter, initial encounter (principal); J69.0 Pneumonitis due to inhalation of food and vomit; G23.1 Progressive supranuclear ophthalmoplegia [Steele-Richardson-Olszewski]; G40.909 Epilepsy, unspecified, not intractable, without status epilepticus; G89.4 Chronic pain syndrome; I50.9 Heart failure, unspecified; I11.0 Hypertensive heart disease with heart failure; R41.3 Other amnesia; I25.2 Old myocardial infarction; I25.10 Atherosclerotic heart disease of native coronary artery without angina pectoris; D69.6 Thrombocytopenia, unspecified; E11.9 Type 2 diabetes mellitus without complications; E78.5 Hyperlipidemia, unspecified; Z20.822 Contact with and (suspected) exposure to COVID-19; J44.9 Chronic obstructive pulmonary disease, unspecified; K74.60 Unspecified cirrhosis of liver; L89.312 Pressure ulcer of right buttock, stage 2; N42.9 Disorder of prostate, unspecified; M54.50 Low back pain, unspecified; L89.322 Pressure ulcer of left buttock, stage 2; N39.0 Urinary tract infection, site not specified; R06.6 Hiccough; Z99.81 Dependence on supplemental oxygen; Z74.01 Bed confinement status; Z79.899 Other long term (current) drug therapy; Z86.73 Personal history of transient ischemic attack (TIA), and cerebral infarction without residual deficits; Z86.79 Personal history of other diseases of the circulatory system; Z87.891 Personal history of nicotine dependence; Z87.11 Personal history of peptic ulcer disease; Z99.3 Dependence on wheelchair; Z96.89 Presence of other specified functional implants; Z86.19 Personal history of other infectious and parasitic diseases; Z88.5 Allergy status to narcotic agent; Z28.21 Immunization not carried out because of patient refusal; Z79.4 Long term (current) use of insulin; Z79.891 Long term (current) use of opiate analgesic; Z79.82 Long term (current) use of aspirin; Z79.02 Long term (current) use of antithrombotics/antiplatelets; Z79.51 Long term (current) use of inhaled steroids; Z71.3 Dietary counseling and surveillance
CPT/HCPCS: 36415; 71045; 80048; 80053; 81001; 83690; 83735; 83880; 84100; 84145; 84484; 85025; 85379; 85610; 85730; 87040; 87086; 87636; 93005; 94640; 94760; 96361; 96365; 96372; 96375; 99285